=== PATIENT | male | born 1955 | race Caucasian/White ===

== ENCOUNTER → 2016-05-20 | Outpatient (CLI) | payer BC ==
[2016-05-20 11:53] LABS: CH 31.4; CHCM 33.3; HCT 41.6 % (39.0-53.0); HDW 2.36; HGB 13.7 gm/dL (13.0-17.5); MCH 31.2 pg (25.0-35.0); MCV 94.6 fL (80.0-100.0); Mean Platelet Volume 7.4; RBC 4.39 m/uL (4.30-5.90); RDW 12.8 % (11.5-15.5); WBC 10.1 k/uL (3.8-10.6)
[2016-05-20 12:29] LABS: Anion Gap 15 mmol/L; Blood Urea Nitrogen 15 mg/dL (9-20); Carbon Dioxide 23 mmol/L (22-30); Chloride 105 mmol/L (98-107); Non-African American GFR(MDRD) >60 (>60 ml/min/1.73 sqM); Potassium 4.3 mmol/L (3.5-5.1); Sodium 143 mmol/L (137-145)
== END | disposition home or self-care (01) ==
LOC: LABPAT 11:20
PROVIDERS: ATTEND Internal Medicine Interventional Cardiology
DX: Z01.812 Encounter for preprocedural laboratory examination (principal); I73.9 Peripheral vascular disease, unspecified
CPT/HCPCS: 80051; 82565; 84520; 85027

== ENCOUNTER 2016-05-22 07:39 | Day surgery (SDC) | payer BC ==
[2016-05-20 10:04] VITALS: BMI 23.7
[2016-05-22] MEDS ORDERED: SODIUM CHLORIDE 0.9% 1,000 ML IV ONE (08:05)
[2016-05-22 08:08] LABS: Glucose,Whole Blood 180 mg/dL (75-99)
[2016-05-22] MEDS ORDERED: ASPIRIN 325 MG TAB PO SCH (09:00)
[2016-05-22] MEDS ORDERED: MIDAZOLAM 2 MG/2 ML VIAL IV ONE ×2 (09:39→10:35)
[2016-05-22] MEDS ORDERED: LIDOCAINE 2% INJ 20 MG/ML SQ ONE (09:49)
[2016-05-22] MEDS: niCARdipine Syringe (1,000 mcg/10 mL) IV ONE ×2 (10:46→10:58)
[2016-05-22] MEDS: NITROGLYCERIN 1000MCG/10ML SYRINGE INTRAARTER ONE ×2 (10:46→10:58)
[2016-05-22] MEDS ORDERED: IODIXANOL 320 MG/ML 100 ML INTRAARTER ONE (11:07)
[2016-05-22] MEDS ORDERED: SODIUM CHLORIDE 0.9% 1,000 ML IV SCH (11:15)
[2016-05-22] MEDS ORDERED: hydrALAZINE HCL 20 MG/ML 1 ML VIAL IVP STA (14:11)
[2016-05-22] MEDS ORDERED: ENALAPRILAT 1.25 MG/ML 1 ML VIAL IVP STA (14:12)
[2016-05-22] MEDS ORDERED: ATROPINE SULFATE 0.1 MG/ML 10ML SYRINGE ONE (14:18)
[2016-05-22 15:26] VITALS: RESP 16
--- NOTE | 2016-05-22 15:57 | IR ---
EXAMINATION TYPE: IR stent intravas non coronary DATE OF EXAM: 05/22/2016 11:59 AM COMPARISON: NONE HISTORY: Peripheral vascular occlusive disease. Fluoroscopy was applied to the referring clinician. See dictated report from cardiology.
[2016-05-22 16:53] LABS: Glucose,Whole Blood 167 mg/dL (75-99)
[2016-05-22] MEDS ORDERED: GLIMEPIRIDE 1 MG TAB PO SCH (17:30)
--- NOTE | 2016-05-22 18:41 | PCN ---
DATE OF PROCEDURE: May 22, 2016 PERFORMING PHYSICIAN: Adam Nicole, petroleum engineering teacher. PROCEDURE PERFORMED: 1. Selective right undbr-gmy-fbde angiogram. 2. Selective right SFA angiogram. 3. Atherectomy of the right superficial femoral artery SFA using the TurboHawk device. 4. Balloon angioplasty of the right SFA using 5.0 mm by one. 5. Successful stenting of the right SFA using 5.5 x 60 mm ( ) stent with a good angiographic result. INDICATION: This is a pleasant, 61-year-old gentleman who sees Dr. Mario Arellano as an outpatient and sees Dr. Keen as an outpatient as well who was experiencing bilateral lower extremity discomfort consistent with claudication. He underwent a peripheral angiogram which showed bilateral femoropopliteal disease. He did not he underwent an atherectomy and balloon angioplasty of the left SFA and was brought today to undergo an atherectomy and balloon angioplasty of the right SFA. Approach: Right common femoral artery in antegrade fashion. COMPLICATIONS: None. Level of sedation: Moderate. PROCEDURE DESCRIPTION: After obtaining informed consent, the patient was brought to the cardiac computer lab assistant. Right common femoral artery was cannulated using micropuncture technique. The micropuncture wire passed easily, then I placed a 6 [place] sheath in the right common femoral artery and the sheath was directed toward the right SFA in antegrade technique. At that point, anticoagulation was initiated using Angiomax. I did selective right mycrd-qxv-meam angiogram and selective right SFA angiogram. After that, I did cross the lesion of the right SFA using an 0.014 advantage wire with the back-up support of 0.014 wire. After that, I did exchanged my 0.014 advantage wire into a filter wire using an 0.035 QuickCross catheter. After that anticoagulation was initiated using heparin. The patient was given a total of 8000 units of heparin IV. After that, I did multiple runs of directional atherectomy using the TurboHawk hock device and I was able to extract some plaque from the lesion in the right SFA. Subsequently, I did balloon angioplasty using 5.0 x 40 mm balloon, where the balloon was inflated 3 times in the right distal SFA. The following angiogram showed what seems to be dissection involving the right SFA was a sort of a bit flow limiting. I decided to cover that with a stent, so I deployed 5.5 x 15 mm Supera stent, where the stent was positioned under fluoroscopy guidance, then it was deployed. The following angiogram showed good angiographic results. The procedure was completed without any complication. By the end of the procedure, I did selective right common femoral artery angiogram. POSTPROCEDURE MANAGEMENT: 1. Dual antiplatelet therapy. 2. Risk factor modifications. 3. Follow up with the patient.
--- NOTE | 2016-05-22 18:46 | LTR ---
May 22, 2016 RE: Dillan Reis Dear Helga, As per our discussion on the phone, Mr. Dillan Reis underwent successful balloon angioplasty of the right superficial femoral artery with good angiographic results and without any complication. Thank you again for allowing us to participate in his care. Please do not hesitate to call if you have any question or concerns. Sincerely, RICHARD GREENE MD
[2016-05-22] MEDS: MAGNESIUM OXIDE 250 MG TAB PO SCH (19:56)
[2016-05-22 20:39] LABS: Glucose,Whole Blood 202 mg/dL (75-99)
[2016-05-22] MEDS ORDERED: ATORVASTATIN 80 MG TAB PO SCH (21:00)
[2016-05-23 06:17] LABS: Glucose,Whole Blood 115 mg/dL (75-99)
[2016-05-23 07:03] LABS: Basophils # (A) 0.1 k/uL (0-0.2); Basophils % (A) 1 %; CH 31.6; CHCM 33.7; Eosinophils # (A) 0.4 k/uL (0-0.7); Eosinophils % (A) 5 %; HCT 36.8 % (39.0-53.0); HDW 2.38; HGB 12.4 gm/dL (13.0-17.5); Luc # (Auto) 0.38; Luc % (Auto) 4; Lymphocytes # (A) 1.7 k/uL (1.0-4.8); Lymphocytes % (A) 19 %; MCH 31.7 pg (25.0-35.0); MCHC 33.6 g/dL (31.0-37.0); MCV 94.2 fL (80.0-100.0); Mean Platelet Volume 7.7; Monocytes # (A) 0.8 k/uL (0-1.0); Monocytes % (A) 9 %; Neutrophils # (A) 5.5 k/uL (1.3-7.7); Neutrophils % (A) 63 %; RDW 12.7 % (11.5-15.5); WBC 8.9 k/uL (3.8-10.6); WBC (Perox) 9.38
[2016-05-23 07:30] LABS: Anion Gap 11 mmol/L; Blood Urea Nitrogen 14 mg/dL (9-20); Calcium 8.7 mg/dL (8.4-10.2); Carbon Dioxide 18 mmol/L (22-30); Chloride 112 mmol/L (98-107); Glucose 105 mg/dL (74-99); Non-African American GFR(MDRD) >60 (>60 ml/min/1.73 sqM); Potassium 4.3 mmol/L (3.5-5.1); Sodium 141 mmol/L (137-145)
[2016-05-23] MEDS: MAGNESIUM OXIDE 250 MG TAB PO SCH (07:56)
[2016-05-23] MEDS ORDERED: PRASUGREL 10 MG TAB PO SCH (09:00)
[2016-05-23] MEDS ORDERED: METOPROLOL TARTRATE 25 MG TAB PO SCH (09:00)
[2016-05-23] MEDS ORDERED: ASPIRIN 81 MG CHEW PO SCH (09:00)
[2016-05-23] MEDS ORDERED: NON-FORMULARY DRUG (Ubidecarenone [Co Q-10] 200 MG) PO SCH (09:00)
[2016-05-23] MEDS ORDERED: NON-FORMULARY DRUG (Omega-3 Fatty Acids [Omega-3] 1,000 MG) PO SCH (09:00)
[2016-05-23] MEDS ORDERED: LISINOPRIL 10 MG TAB PO SCH (09:00)
[2016-05-23 09:35] VITALS: BP 161/72; PULSE 70; TEMP 98
--- NOTE | 2016-05-24 08:55 | DS ---
DATE OF ADMISSION: 05/22/2016 DATE OF DISCHARGE: 05/23/2016 BRIEF HISTORY: This is a pleasant 61-year-old gentleman who was admitted to the hospital yesterday and underwent successful balloon angioplasty of the right superficial femoral artery with a good angiographic result and without any complication. The procedure was performed from the left groin, which is soft and nontender and without any bruises. Patient is going to be discharged home on dual antiplatelet therapy and I will follow up with the patient next week in the office.
== END 2016-05-23 11:58 | disposition home or self-care (01) ==
LOC: CATHCVL 07:39 → 6SEL 11:05 → CATHCVL 05-23 11:58
PROVIDERS: ATTEND Internal Medicine Interventional Cardiology
DX: I70.211 Atherosclerosis of native arteries of extremities with intermittent claudication, right leg (principal); I10 Essential (primary) hypertension; E11.9 Type 2 diabetes mellitus without complications; Z79.84 Long term (current) use of oral hypoglycemic drugs; Z87.891 Personal history of nicotine dependence; E78.2 Mixed hyperlipidemia; I25.10 Atherosclerotic heart disease of native coronary artery without angina pectoris; Z98.62 Peripheral vascular angioplasty status; Z79.899 Other long term (current) drug therapy
CPT/HCPCS: 37227; 85347; 80048; 85025; C1894; C1725 ×2; C1769 ×7; C1887; C1714; C1884; C1876; J2001; J2250; J0360; Q9967; J1644

== ENCOUNTER → 2017-06-06 | Outpatient (CLI) | payer BC ==
[2017-06-06 07:41] LABS: Blood Urea Nitrogen 16 mg/dL (9-20)
--- NOTE | 2017-06-06 08:26 | CT ---
EXAMINATION TYPE: CT urogram wo/w con DATE OF EXAM: 06/06/2017 COMPARISON: 06/19/2012 HISTORY: Gross hematuria, bladder CA CT DLP: 2088 mGycm CONTRAST: Performed and without and with IV Contrast, patient injected with 100 mL of Omnipaque 300. CT Urography was performed with unenhanced followed by enhanced images of the kidneys, ureters and ur inary bladder. Delayed images were obtained. 3d reconstruction was perfromed at a separate work sta tion. FINDINGS: KIDNEYS/BLADDER: Bilateral nonobstructing nephrolithiasis is identified. No solid or cystic renal mas s is detected. There is wall thickening involving the posterior urinary bladder to the left of midli ne. Direct visualization is recommended to exclude underlying malignancy. LUNG BASES-: No visible nodule. No infiltrate. LIVER/GB: No calcified gallstones. No space occupying hepatic lesion. Biliary tree is of normal ca liber. PANCREAS: No inflammation. No distinct mass. SPLEEN: No splenic enlargement. No lesion seen. ADRENALS: No nodule. No thickening. BOWEL: Normal appendix. Normal bowel caliber. No inflammation. GENITAL ORGANS: Note is made of prostate gland enlargement. LYMPH NODES: No greater than 1cm abdominal or pelvic lymph nodes are appreciated. AORTA: No significant abnormality. OSSEOUS STRUCTURES: Degenerative changes lumbar spine. OTHER: No significant additional abnormality is seen. IMPRESSION: 1. There is wall thickening involving the posterior urinary bladder to the left of midline. Direct v isualization is recommended to exclude underlying malignancy. 2. Nonobstructing nephrolithiasis.
== END | disposition home or self-care (01) ==
LOC: RADCTMAIN 06:31
PROVIDERS: ATTEND Urology
DX: C67.9 Malignant neoplasm of bladder, unspecified (principal); N20.0 Calculus of kidney
CPT/HCPCS: 82565; 84520; 74178; 36415; 74400; Q9967

== ENCOUNTER 2019-01-09 18:45 | Emergency (ER) | payer BC ==
[2019-01-09 18:58] VITALS: TEMP 97.8
[2019-01-09] MEDS ORDERED: SODIUM CHLORIDE 0.9% 1,000 ML IV STA (19:12)
--- NOTE | 2019-01-09 19:17 | ED ---
General Adult HPI - General Chief complaint: Syncope Stated complaint: syncope Time Seen by Provider: 01/09/19 18:53 Source: patient, EMS Mode of arrival: EMS Limitations: no limitations - History of Present Illness Initial comments: 63-year-old male patient presents to the emergency department today for evaluation after experiencing a syncopal episode. Patient states he was at a wedding, when he walked outside to have a cigarette he became very dizzy and passed out. Patient states that he was feeling well prior to this. Does admit that he is only had a couple coffee for the whole day, no other drinks, no other food. Patient states he currently feels well. Denies any headache, blurred vision, or double vision. Denies any neck or back pain. Patient does have abrasions to his face, report some stinging sensation but no significant pain. Denies any chest pain, shortness of breath, numbness, or tingling to his extremities. Patient denies history of syncope. Does have history of coronary artery disease with stenting in both coronary arteries and lower extremity arteries. Patient denies any recent rash, fever, chills, abdominal pain, nausea, vomiting, diarrhea, constipation, back pain, hematuria, dysuria, urinary urgency, urinary frequency, or any other complaints. - Related Data Home Medications Medication Instructions Recorded Confirmed Aspirin 81.25 mg PO DAILY 01/09/19 01/09/19 Allergies Allergy/AdvReac Type Severity Reaction Status Date / Time ragweed pollen Allergy Unknown Verified 01/09/19 19:25 Review of Systems ROS Statement: Those systems with pertinent positive or pertinent negative responses have been documented in the HPI. ROS Other: All systems not noted in ROS Statement are negative. Past Medical History Past Medical History: Coronary Artery Disease (CAD), Cancer, Chest Pain / Angina, Diabetes Mellitus, Hypertension, Skin Disorder Additional Past Medical History / Comment(s): Intermittent BILATERAL CLAUDICATION & NEW OCCURRENCE OF LEFT PLANTAR FASCITIS (DIFFICULT TO WALK). Hx of bladder ca with surgery, psoriases,eczema, hiatal hernia, umbilical hernia, kidney stones 2004. History of Any Multi-Drug Resistant Organisms: None Reported Past Surgical History: Heart Catheterization With Stent Additional Past Surgical History / Comment(s): 10/20/15 last CARDIAC STENT-has had several previous cardiac stents, vasectomy, bladder sx x2 to remove tumors. L femoral artherectomy/STENT TO LT common ILIAC artery, 1/25/17 R fe moral/popliteal atherectomy with PTBA/stent, angiograms, aortogram with run off. Past Anesthesia/Blood Transfusion Reactions: No Reported Reaction Additional Past Anesthesia/Blood Transfusion Reaction / Comment(s): CLAUSTROPHOBIC IN LARGE CROWDS Date of Last Stent Placement:: 10/20/15 Smoking Status: Former smoker - Past Family History Father Family Medical History: Unable to Obtain Additional Family Medical History / Comment(s): PT'S DAD WHEN PT WAS AGE 4 DOES'NT KNOW ANY HX ON HIM. Mother Family Medical History: Diabetes Mellitus, Hyperlipidemia, Hypertension, Vascular Disorder General Exam Limitations: no limitations General appearance: alert, in no apparent distress, other (This is a well- developed, well-nourished adult male patient in no acute distress. Vital signs upon presentation are temperature 97.8F, pulse 80, respirations 20, blood pressure 154 with 87, pulse ox 99% on room air.) Head exam: Present: other (Mid forehead abrasion) Eye exam: Present: normal appearance, PERRL, EOMI. Absent: scleral icterus, conjunctival injection, periorbital swelling ENT exam: Present: normal exam, normal oropharynx, mucous membranes moist, other (Nasal bridge abrasion, nasal bridge tenderness. No evidence for septal hematoma.) Respiratory exam: Present: normal lung sounds bilaterally. Absent: respiratory distress, wheezes, rales, rhonchi, stridor Cardiovascular Exam: Present: regular rate, normal rhythm, normal heart sounds. Absent: systolic murmur, diastolic murmur, rubs, gallop, clicks GI/Abdominal exam: Present: soft, normal bowel sounds. Absent: distended, tenderness, guarding, rebound, rigid Neurological exam: Present: alert, oriented X3, CN II-XII intact, other (Strength in all 4 extremities is 5/5.) Psychiatric exam: Present: normal affect, normal mood Skin exam: Present: warm, dry, intact, normal color. Absent: rash Course Vital Signs 01/09/19 01/09/19 18:56 21:37 Temperature 97.8 F Pulse Rate 80 72 Respiratory 20 18 Rate Blood Pressure 154/87 181/90 O2 Sat by Pulse 99 98 Oximetry EKG Findings - EKG Comments: EKG Findings:: EKG obtained at 1854 shows sinus rhythm with occasional PVCs. Ventricular rate is 76, HI interval 138, QR faith 98, QT 422, QTc 474. No evidence of ST elevation or depression. Medical Decision Making - Medical Decision Making 63-year-old male patient presented to the emergency department today for evaluation after experiencing a syncopal episode. Physical examination did reveal abrasions to the forehead and nasal bridge. Patient did have some nasal bridge tenderness. No nasal bleeding, no evidence for septal hematoma. Patient is neurologically intact with no focal deficits. Patient reported feeling well at time of evaluation. Labs reviewed and were unremarkable other than an elevated blood glucose level at 224. CT brain and facial bones showed no acute abnormalities. Chest x-ray was unremarkable. EKG showed normal sinus rhythm with only occasional PVCs. Patient is requesting discharge home at this time. He will be discharged to follow up with primary care physician for recheck in 1- 2 days. Return parameters were discussed in detail. He is given low threshold to return. He verbalizes understanding and agrees with this plan. Daughter is present and will be driving him home. - Lab Data Result diagrams: 01/09/19 19:20 01/09/19 19:20 Lab Results 01/09/19 01/09/19 01/09/19 Range/Units 19:20 19:20 19:20 WBC 11.9 H (3.8-10.6) k/uL RBC 4.28 L (4.30-5.90) m/uL Hgb 12.9 L (13.0-17.5) gm/dL Hct 39.4 (39.0-53.0) % MCV 92.1 (80.0-100.0) fL MCH 30.2 (25.0-35.0) pg MCHC 32.8 (31.0-37.0) g/dL RDW 12.9 (11.5-15.5) % Plt Count 267 (150-450) k/uL Neutrophils % 69 % Lymphocytes % 16 % Monocytes % 6 % Eosinophils % 4 % Basophils % 2 % Neutrophils # 8.2 H (1.3-7.7) k/uL Lymphocytes # 1.9 (1.0-4.8) k/uL Monocytes # 0.8 (0-1.0) k/uL Eosinophils # 0.5 (0-0.7) k/uL Basophils # 0.2 (0-0.2) k/uL PT 9.8 (9.0-12.0) sec INR 0.9 (<1.2) APTT 22.8 (22.0-30.0) sec Sodium 139 (137-145) mmol/L Potassium 4.8 (3.5-5.1) mmol/L Chloride 107 (98-107) mmol/L Carbon Dioxide 22 (22-30) mmol/L Anion Gap 10 mmol/L BUN 19 (9-20) mg/dL Creatinine 0.89 (0.66-1.25) mg/dL Est GFR (CKD-EPI)AfAm >90 (>60 ml/min/1.73 sqM) Est GFR (CKD-EPI)NonAf >90 (>60 ml/min/1.73 sqM) Glucose 224 H (74-99) mg/dL Calcium 9.3 (8.4-10.2) mg/dL Magnesium 1.6 (1.6-2.3) mg/dL Total Bilirubin 0.3 (0.2-1.3) mg/dL AST 22 (17-59) U/L ALT 20 L (21-72) U/L Alkaline Phosphatase 79 (38-126) U/L Troponin I (0.000-0.034) ng/mL Total Protein 7.1 (6.3-8.2) g/dL Albumin 4.0 (3.5-5.0) g/dL Urine Color Urine Appearance (Clear) Urine pH (5.0-8.0) Ur Specific [place] (1.001-1.035) Urine Protein (Negative) Urine Glucose (UA) (Negative) Urine Ketones (Negative) Urine Blood (Negative) Urine Nitrite (Negative) Urine Bilirubin (Negative) Urine Urobilinogen (<2.0) mg/dL Ur Leukocyte Esterase (Negative) 01/09/19 01/09/19 Range/Units 19:20 20:34 WBC (3.8-10.6) k/uL RBC (4.30-5.90) m/uL Hgb (13.0-17.5) gm/dL Hct (39.0-53.0) % MCV (80.0-100.0) fL MCH (25.0-35.0) pg MCHC (31.0-37.0) g/dL RDW (11.5-15.5) % Plt Count (150-450) k/uL Neutrophils % % Lymphocytes % % Monocytes % % Eosinophils % % Basophils % % Neutrophils # (1.3-7.7) k/uL Lymphocytes # (1.0-4.8) k/uL Monocytes # (0-1.0) k/uL Eosinophils # (0-0.7) k/uL Basophils # (0-0.2) k/uL PT (9.0-12.0) sec INR (<1.2) APTT (22.0-30.0) sec Sodium (137-145) mmol/L Potassium (3.5-5.1) mmol/L Chloride (98-107) mmol/L Carbon Dioxide (22-30) mmol/L Anion Gap mmol/L BUN (9-20) mg/dL Creatinine (0.66-1.25) mg/dL Est GFR (CKD-EPI)AfAm (>60 ml/min/1.73 sqM) Est GFR (CKD-EPI)NonAf (>60 ml/min/1.73 sqM) Glucose (74-99) mg/dL Calcium (8.4-10.2) mg/dL Magnesium (1.6-2.3) mg/dL Total Bilirubin (0.2-1.3) mg/dL AST (17-59) U/L ALT (21-72) U/L Alkaline Phosphatase (38-126) U/L Troponin I <0.012 (0.000-0.034) ng/mL Total Protein (6.3-8.2) g/dL Albumin (3.5-5.0) g/dL Urine Color Yellow Urine Appearance Clear (Clear) Urine pH 6.0 (5.0-8.0) Ur Specific [place] 1.017 (1.001-1.035) Urine Protein Trace H (Negative) Urine Glucose (UA) 3+ H (Negative) Urine Ketones Negative (Negative) Urine Blood Negative (Negative) Urine Nitrite Negative (Negative) Urine Bilirubin Negative (Negative) Urine Urobilinogen <2.0 (<2.0) mg/dL Ur Leukocyte Esterase Negative (Negative) - Radiology Data Radiology results: report reviewed, image reviewed CT facial bones without contrast was obtained. Report was reviewed in its entirety. Impression by Dr. Mercedes shows mucosal thickening and air-fluid level left seen right sinus. Correlate for acute sinusitis. Rightward nasal septal deviation. No acute facial bone fracture. CT brain without contrast was obtained. Report was reviewed in its entirety. Impression by Dr. Mercedes shows no acute intracranial abnormalities seen. 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 Facial bones reported separately. Two-view x-ray of the chest is obtained. Report was reviewed in its entirety. Impression by Dr. Mercedes shows chronic-appearing changes. No acute process seen. Disposition Clinical Impression: Syncope Disposition: HOME SELF-CARE Condition: Good Instructions (If sedation given, give patient instructions): Syncope (ED) Additional Instructions: Increase fluids. Rest. Follow-up through primary care physician for recheck in 1-2 days. Return to the emergency department immediately for any new, worsen ing, or concerning symptoms. Is patient prescribed a controlled substance at d/c from ED?: No Referrals: Helga Keen MD [Primary Care Provider] - 1-2 days Time of Disposition: 21:32
[2019-01-09 19:31] LABS: Basophils # (A) 0.2 k/uL (0-0.2); Basophils % (A) 2 %; Eosinophils # (A) 0.5 k/uL (0-0.7); Eosinophils % (A) 4 %; HCT 39.4 % (39.0-53.0); HGB 12.9 gm/dL (13.0-17.5); Lymphocytes # (A) 1.9 k/uL (1.0-4.8); Lymphocytes % (A) 16 %; MCH 30.2 pg (25.0-35.0); MCHC 32.8 g/dL (31.0-37.0); MCV 92.1 fL (80.0-100.0); Mean Platelet Volume 6.8; Monocytes # (A) 0.8 k/uL (0-1.0); Monocytes % (A) 6 %; Neutrophils # (A) 8.2 k/uL (1.3-7.7); Neutrophils % (A) 69 %; Platelet Count 267 k/uL (150-450); RBC 4.28 m/uL (4.30-5.90); RDW 12.9 % (11.5-15.5); WBC 11.9 k/uL (3.8-10.6)
[2019-01-09 19:41] LABS: ALT 20 U/L (21-72); AST 22 U/L (17-59); African American GFR (CKD) >90 (>60 ml/min/1.73 sqM); Alkaline Phosphatase 79 U/L (38-126); Anion Gap 10 mmol/L; Blood Urea Nitrogen 19 mg/dL (9-20); Calcium 9.3 mg/dL (8.4-10.2); Carbon Dioxide 22 mmol/L (22-30); Chloride 107 mmol/L (98-107); Glucose 224 mg/dL (74-99); INR 0.9 (<1.2); Magnesium 1.6 mg/dL (1.6-2.3); Partial Thromboplastin Time 22.8 sec (22.0-30.0); Potassium 4.8 mmol/L (3.5-5.1); Prothrombin Time 9.8 sec (9.0-12.0); Sodium 139 mmol/L (137-145); Total Bilirubin 0.3 mg/dL (0.2-1.3); Total Protein 7.1 g/dL (6.3-8.2)
--- NOTE | 2019-01-09 20:37 | XR ---
EXAMINATION TYPE: XR chest 2V DATE OF EXAM: 01/09/2019 COMPARISON: 10/19/2015 HISTORY: 63-year-old male with syncope TECHNIQUE: AP and lateral views FINDINGS: Heart normal size. Aorta within normal limits. Mild interstitial prominence without consolidation or pleural effusion. IMPRESSION: Chronic-appearing changes. No acute process seen.
[2019-01-09 20:46] LABS: Appearance,Urine Clear (Clear); Bilirubin,Urine Negative (Negative); Blood,Urine Negative (Negative); Color,Urine Yellow; Glucose,Urine (UA) 3+ (Negative); Ketones,Urine Negative (Negative); Leukocyte Esterase,Urine Negative (Negative); Nitrite,Urine Negative (Negative); Protein,Urine Trace (Negative); Specific Gravity,Urine 1.017 (1.001-1.035); Urobilinogen,Urine <2.0 mg/dL (<2.0)
--- NOTE | 2019-01-09 20:57 | CT ---
EXAMINATION TYPE: CT brain wo con DATE OF EXAM: 01/09/2019 COMPARISON: None HISTORY: 63-year-old male Syncope, abrasions to left side of face. TECHNIQUE: Examination was done in axial plane without intravenous contrast. Coronal and sagittal r econstructions performed. CT DLP: 1413.6 mGycm Automated exposure control for dose reduction was used. FINDINGS: There is no evidence of acute intracranial hemorrhage, acute ischemic changes, mass, mass-effect, or extra-axial fluid collection. There is no effacement of cerebral sulci or basal subarachnoid cister ns. There is no hydrocephalus. There is no midline shift. Metcalf-white matter distinction is preserv ed. Old lacunar infarct left basal ganglia. Mastoid air cells are pneumatized. No calvarial fracture. IMPRESSION: No acute intracranial abnormality seen. 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 Facial bones reported separately.
--- NOTE | 2019-01-09 20:59 | CT ---
EXAMINATION TYPE: CT facial bones wo con DATE OF EXAM: 01/09/2019 COMPARISON: None HISTORY: 63-year-old male Syncope, abrasions to left side of face. TECHNIQUE: Contiguous axial scanning of the facial bones without IV contrast. Coronal reconstruction performed. CT DLP: 1413.6 (scanned together with brain) mGycm Automated exposure control for dose reduction was used. FINDINGS: Rightward nasal septal deviation. Mucosal thickening and air-fluid level left sphenoid sinus. Patient is nearly edentulous. Mandible, zygomatic arches, pterygoid plates, nasal bones, and orbits and globes appear intact. No ac [place] facial bone fracture. IMPRESSION: MUCOSAL THICKENING AND AIR-FLUID LEVEL LEFT SPHENOID SINUS. CORRELATE FOR ACUTE SINUSITIS. RIGHTWARD NASAL SEPTAL DEVIATION. NO ACUTE FACIAL BONE FRACTURE.
[2019-01-09] MEDS ORDERED: DIPH,PERTUS(ACELL)TETVAC-LF 0.5 ML VIAL IM ONE (21:12)
[2019-01-09 21:40] VITALS: BP 181/90; PULSE 72; RESP 18
== END 2019-01-09 21:40 | disposition home or self-care (01) ==
LOC: EC 18:45
DX: R55 Syncope and collapse (principal); S00.81XA Abrasion of other part of head, initial encounter; S00.31XA Abrasion of nose, initial encounter; R73.9 Hyperglycemia, unspecified; I25.10 Atherosclerotic heart disease of native coronary artery without angina pectoris; Z85.51 Personal history of malignant neoplasm of bladder; Z95.5 Presence of coronary angioplasty implant and graft; Z23 Encounter for immunization; Z87.891 Personal history of nicotine dependence; Z79.82 Long term (current) use of aspirin; Z91.048 Other nonmedicinal substance allergy status; Y93.01 Activity, walking, marching and hiking
CPT/HCPCS: 36415; 70450; 70486; 71046; 80053; 81003; 83735; 84484; 85025; 85610; 85730; 90471; 90715; 93005; 96360; 99285

== ENCOUNTER 2019-11-01 14:03 | Inpatient (IN) | payer BC ==
[2019-11-01] MEDS ORDERED: ASPIRIN 81 MG PO STA (14:18)
[2019-11-01] MEDS ORDERED: NITROGLYCERIN SL TABS 0.4 MG TAB SUBLINGUAL PRN ×2 (14:30→17:02)
--- NOTE | 2019-11-01 14:50 | ED ---
Chest Pain HPI - General Chief Complaint: Chest Pain Stated Complaint: Chest Pain Time Seen by Provider: 11/01/19 14:18 Source: patient Mode of arrival: ambulatory Limitations: no limitations - History of Present Illness Initial Comments: Patient is 64-year-old male with history of coronary artery disease, hypertension, hyperlipidemia presenting to the emergency room with a chief complaint of chest pain. Patient states he woke up this morning at 4 AM with an onset of midsternal chest pain without any radiation. Patient states that pain feels dull with an occasional crushing feeling. Patient reports chest pain is exacerbated on exertion. Patient denies any shortness of breath. Patient denies any diaphoretic episodes, lightheadedness or dizziness. Patient states he currently takes a baby aspirin and some szzd-bxc-mvrorty supplements. Patient states about 8 years ago he had a stent placement. States his most recent stress test was several years ago. Denies headache, blurry vision, one- sided weakness or paresthesias. Denies any abdominal pain, nausea or vomiting. - Related Data Home Medications Medication Instructions Recorded Confirmed Multivitamins, Thera [Multivitamin 1 tab PO DAILY 11/01/19 11/01/19 (formulary)] Turmeric (Unknown Strength) 1 tab PO DAILY 11/01/19 11/01/19 Unknown Vitamin For Prostate 1 tab PO DAILY 11/01/19 11/01/19 Vitamin D3 (Unknown Strength) 1 tab PO DAILY 11/01/19 11/01/19 Vitamin K (Unknown Strength) 1 tab PO DAILY 11/01/19 11/01/19 Allergies Allergy/AdvReac Type Severity Reaction Status Date / Time ragweed pollen Allergy Unknown Verified 11/01/19 16:27 Review of Systems ROS Statement: Those systems with pertinent positive or pertinent negative responses have been documented in the HPI. ROS Other: All systems not noted in ROS Statement are negative. Past Medical History Past Medical History: Coronary Artery Disease (CAD), Cancer, Chest Pain / Angina, Diabetes Mellitus, Hypertension, Skin Disorder Additional Past Medical History / Comment(s): Intermittent BILATERAL CLAUDICATION & NEW OCCURRENCE OF LEFT PLANTAR FASCITIS (DIFFICULT TO WALK). Hx of bladder ca with surgery, psoriases,eczema, hiatal hernia, umbilical hernia, kidney stones 2004. History of Any Multi-Drug Resistant Organisms: None Reported Past Surgical History: Heart Catheterization With Stent Additional Past Surgical History / Comment(s): 10/20/15 last CARDIAC STENT-has had several previous cardiac stents, vasectomy, bladder sx x2 to remove tumors. L femoral artherectomy/STENT TO LT common ILIAC artery, 05/22/16 R femoral/popliteal atherectomy with PTBA/stent, angiograms, aortogram with run off. Past Anesthesia/Blood Transfusion Reactions: No Reported Reaction Additional Past Anesthesia/Blood Transfusion Reaction / Comment(s): CLAUSTROPHOBIC IN LARGE CROWDS Date of Last Stent Placement:: 10/20/15 Past Psychological History: No Psychological Hx Reported Smoking Status: Current every day smoker Past Alcohol Use History: None Reported Past Drug Use History: Marijuana - Past Family History Father Family Medical History: Unable to Obtain Additional Family Medical History / Comment(s): PT'S DAD WHEN PT WAS AGE 4 DOES'NT KNOW ANY HX ON HIM. Mother Family Medical History: Diabetes Mellitus, Hyperlipidemia, Hypertension, Vascular Disorder General Exam Limitations: no limitations General appearance: alert, in no apparent distress Head exam: Present: atraumatic, normocephalic, normal inspection Eye exam: Present: normal appearance, PERRL, EOMI Pupils: Present: normal accommodation Course Vital Signs 11/01/19 11/01/19 11/01/19 14:07 14:23 14:30 Temperature 98.3 F Pulse Rate 94 83 Respiratory 16 18 16 Rate Blood Pressure 132/92 O2 Sat by Pulse 99 Oximetry 11/01/19 11/01/19 15:00 16:00 Temperature Pulse Rate 59 L 53 L Respiratory 18 16 Rate Blood Pressure 145/85 156/86 O2 Sat by Pulse Oximetry Chest Pain MDM - Differential Diagnosis ACS - MDM Patient is a 64-year-old male with history of diabetes, hypertension and hyperlipidemia presents emergency Department with chief complaint of chest pain. Initial troponin is negative. Typical chest pain with atypical features. Patient did report improvement in symptoms after aspirin. Patient has a heart score of 5. Patient will be admitted for further medical management and serial troponins. Case discussed with Admitting is Dr Crenshaw Cardiology consulted Disposition Clinical Impression: Chest pain Disposition: ADMITTED IP TO THIS HOSP Condition: Stable Instructions (If sedation given, give patient instructions): Chest Pain (ED) Additional Instructions: She'll be admitted Is patient prescribed a controlled substance at d/c from ED?: No Referrals: Helga Keen MD [Primary Care Provider] - 1-2 days Time of Disposition: 17:06
--- NOTE | 2019-11-01 15:01 | XR ---
EXAMINATION TYPE: XR chest 2V DATE OF EXAM: 11/01/2019 COMPARISON: 01/09/2019 HISTORY: Shortness of breath TECHNIQUE: Frontal and lateral views of the chest are obtained. FINDINGS: Scattered senescent parenchymal changes noted. Hyperinflation compatible with COPD. No evidence for infiltrate. No evidence for atelectasis. Heart size is stable. Mediastinal structures are stable and grossly unremarkable. No evidence for hilar prominence. Degenerative changes dorsal spine. IMPRESSION: 1. No evidence for acute pulmonary disease.
[2019-11-01 15:02] LABS: Basophils # (A) 0.1 k/uL (0-0.2); Basophils % (A) 1 %; Eosinophils # (A) 0.2 k/uL (0-0.7); Eosinophils % (A) 2 %; HCT 43.2 % (39.0-53.0); HGB 14.3 gm/dL (13.0-17.5); Lymphocytes # (A) 1.3 k/uL (1.0-4.8); Lymphocytes % (A) 13 %; MCH 30.9 pg (25.0-35.0); MCHC 33.1 g/dL (31.0-37.0); MCV 93.3 fL (80.0-100.0); Mean Platelet Volume 7.7; Monocytes # (A) 0.7 k/uL (0-1.0); Monocytes % (A) 7 %; Neutrophils # (A) 7.3 k/uL (1.3-7.7); Neutrophils % (A) 74 %; Platelet Count 285 k/uL (150-450); RBC 4.63 m/uL (4.30-5.90); WBC 9.8 k/uL (3.8-10.6)
[2019-11-01 15:13] LABS: ALT 16 U/L (4-49); AST 22 U/L (17-59); African American GFR (CKD) >90 (>60 ml/min/1.73 sqM); Alkaline Phosphatase 88 U/L (38-126); Anion Gap 14 mmol/L; Blood Urea Nitrogen 15 mg/dL (9-20); Calcium 9.5 mg/dL (8.4-10.2); Carbon Dioxide 19 mmol/L (22-30); Chloride 105 mmol/L (98-107); Glucose 309 mg/dL (74-99); INR 0.9 (<1.2); Magnesium 1.8 mg/dL (1.6-2.3); Non-African American GFR(CKD) >90 (>60 ml/min/1.73 sqM); Partial Thromboplastin Time 24.9 sec (22.0-30.0); Potassium 4.4 mmol/L (3.5-5.1); Prothrombin Time 9.7 sec (9.0-12.0); Sodium 138 mmol/L (137-145); Total Bilirubin 0.5 mg/dL (0.2-1.3); Total Protein 6.9 g/dL (6.3-8.2)
--- NOTE | 2019-11-01 17:58 | P.HPIM ---
History of Present Illness 64-year-old male with known history of coronary artery artery disease and with stents in the past came in with compensative chest pressure like sensation was started around 4 AM in the morning nonexertional 810 in severity nonradiating no associated lightheadedness shortness of breath light, no radiation of the chest pain, denied any associated diaphoresis, nonpleuritic not associated with food. Patient did take some deep breaths with improvement of his chest pain. Patient said he had stents in the past but it doesn't seem like patient takes any medications. Patient also has elevated blood sugars, will obtain hemoglobin A1c is not on any medications for diabetes mellitus. Patient appears to help her vascular disease and received stents. His pain lasted for a few hours Review of Systems REVIEW OF SYSTEMS: CONSTITUTIONAL: No fever, no malaise, no fatigue. HEENT: No recent visual problems or hearing problems. Denied any sore throat. CARDIOVASCULAR: No , orthopnea, PND, no palpitations, no syncope. PULMONARY: No shortness of breath, no cough, no hemoptysis. GASTROINTESTINAL: No diarrhea, no nausea, no vomiting, no abdominal pain. NEUROLOGICAL: No headaches, no weakness, no numbness. HEMATOLOGICAL: Denies any bleeding or petechiae. GENITOURINARY: Denies any burning micturition, frequency, or urgency. MUSCULOSKELETAL/RHEUMATOLOGICAL: Denies any joint pain, swelling, or any muscle pain. ENDOCRINE: Denies any polyuria or polydipsia. The rest of the 14-point review of systems is negative. Past Medical History Past Medical History: Coronary Artery Disease (CAD), Cancer, Chest Pain / Angina, Diabetes Mellitus, Hypertension, Skin Disorder Additional Past Medical History / Comment(s): Intermittent BILATERAL CLAUDICATION & NEW OCCURRENCE OF LEFT PLANTAR FASCITIS (DIFFICULT TO WALK). Hx of bladder ca with surgery, psoriases,eczema, hiatal hernia, umbilical hernia, kidney stones 2004. History of Any Multi-Drug Resistant Organisms: None Reported Past Surgical History: Heart Catheterization With Stent Additional Past Surgical History / Comment(s): 10/20/15 last CARDIAC STENT-has had several previous cardiac stents, vasectomy, bladder sx x2 to remove tumors. L femoral artherectomy/STENT TO LT common ILIAC artery, 05/22/16 R femoral/popliteal atherectomy with PTBA/stent, angiograms, aortogram with run off. Past Anesthesia/Blood Transfusion Reactions: No Reported Reaction Additional Past Anesthesia/Blood Transfusion Reaction / Comment(s): CLAUSTROPHOBIC IN LARGE CROWDS Date of Last Stent Placement:: 10/20/15 Past Psychological History: No Psychological Hx Reported Smoking Status: Current every day smoker Past Alcohol Use History: None Reported Past Drug Use History: Marijuana - Past Family History Father Family Medical History: Unable to Obtain Additional Family Medical History / Comment(s): PT'S DAD WHEN PT WAS AGE 4 DOES'NT KNOW ANY HX ON HIM. Mother Family Medical History: Diabetes Mellitus, Hyperlipidemia, Hypertension, Vascular Disorder Medications and Allergies Home Medications Medication Instructions Recorded Confirmed Type Multivitamins, Thera [Multivitamin 1 tab PO DAILY 11/01/19 11/01/19 History (formulary)] Turmeric (Unknown Strength) 1 tab PO DAILY 11/01/19 11/01/19 History Unknown Vitamin For Prostate 1 tab PO DAILY 11/01/19 11/01/19 History Vitamin D3 (Unknown Strength) 1 tab PO DAILY 11/01/19 11/01/19 History Vitamin K (Unknown Strength) 1 tab PO DAILY 11/01/19 11/01/19 History Allergies Allergy/AdvReac Type Severity Reaction Status Date / Time ragweed pollen Allergy Unknown Verified 11/01/19 16:27 Physical Exam Vitals: Vital Signs Temp Pulse Resp BP Pulse Ox 11/01/19 16:00 53 L 16 156/86 11/01/19 15:00 59 L 18 145/85 11/01/19 14:30 83 16 11/01/19 14:23 18 11/01/19 14:07 98.3 F 94 16 132/92 99 Intake and Output 11/01/19 11/01/19 11/01/19 06:59 14:59 22:59 Other: Weight 74.843 kg PHYSICAL EXAMINATION: GENERAL: The patient is alert and oriented x3, not in any acute distress. Well developed, well nourished. HEENT: Pupils are round and equally reacting to light. EOMI. No scleral icterus. No conjunctival pallor. Normocephalic, atraumatic. No pharyngeal erythema. No thyromegaly. CARDIOVASCULAR: S1 and S2 present. No murmurs, rubs, or gallops. PULMONARY: Chest is clear to auscultation, no wheezing or crackles. ABDOMEN: Soft, nontender, nondistended, normoactive bowel sounds. No palpable organomegaly. MUSCULOSKELETAL: No joint swelling or deformity. EXTREMITIES: No cyanosis, clubbing, or pedal edema. NEUROLOGICAL: Gross neurological examination did not reveal any focal deficits. SKIN: No rashes. Results CBC & Chem 7: 11/01/19 14:47 11/01/19 14:47 Labs: Abnormal Lab Results - Last 24 Hours (Table) 11/01/19 Range/Units 14:47 Carbon Dioxide 19 L (22-30) mmol/L Glucose 309 H (74-99) mg/dL Assessment and Plan Plan: -Chest pain we'll rule out acute coronary syndromes patient will be evaluated by cardiology will obtain 2 more sets of his and EKGs patient is not any antiplatelet therapy beta gaurav statin at this time. Although patient's appetite is in 50s. Patient did have peripheral vascular disease and stents to lower limbs. -Elevated blood sugars possibility of type 2 diabetes mellitus patient is not in medications will obtain hemoglobin A1c -Hypertension -Coronary artery disease and peripheral asked her disease -Continued nicotine use: Counseling was provided
[2019-11-01 20:08] LABS: Glucose,Whole Blood 244 mg/dL (75-99)
[2019-11-01] MEDS ORDERED: HEPARIN SODIUM,PORCINE 5,000 UNIT/ML 1 ML VIAL IV PRN (21:25)
[2019-11-01] MEDS ORDERED: HEPARIN SODIUM,PORCINE 5,000 UNIT/ML 1 ML VIAL IV ONE (21:25)
[2019-11-01] MEDS: METOPROLOL TARTRATE 25 MG TAB PO SCH (21:39)
[2019-11-01] MEDS: HEPARIN SOD,PORK IN 0.45% NACL 25,000 UNIT in 0.45% NACL 1 250ML.BAG IV SCH (21:40)
[2019-11-02 02:27] LABS: Hemoglobin A1C 8.8 % (4.0-6.0)
[2019-11-02 04:43] LABS: Cholesterol 174 mg/dL (<200); HDL Cholesterol 27 mg/dL (40-60); LDL Cholesterol,Calculated 102 mg/dL (0-99); Triglycerides 227 mg/dL (<150)
[2019-11-02 06:13] LABS: Glucose,Whole Blood 152 mg/dL (75-99)
[2019-11-02] MEDS: ASPIRIN 325 MG TAB PO SCH (07:42)
[2019-11-02] MEDS: METOPROLOL TARTRATE 25 MG TAB PO SCH ×2 (07:42→20:47)
[2019-11-02] MEDS ORDERED: ATORVASTATIN 80 MG TAB PO SCH (09:00)
[2019-11-02] MEDS ORDERED: ALPRAZolam 0.5 MG TAB PO PRN (09:33)
[2019-11-02] MEDS ORDERED: ATORVASTATIN 80 MG TAB PO STA (09:33)
[2019-11-02] MEDS ORDERED: ALPRAZolam 0.25 MG TAB PO PRN (09:33)
[2019-11-02] MEDS ORDERED: NITROGLYCERIN SL TABS 0.4 MG TAB SUBLINGUAL PRN (09:33)
[2019-11-02] MEDS ORDERED: SODIUM CHLORIDE 0.9% 1,000 ML in EMPTY BAG 1 BAG IV ONE (09:33)
[2019-11-02] MEDS ORDERED: ASPIRIN 325 MG TAB PO STA (09:33)
--- NOTE | 2019-11-02 10:35 | P.CRDCN ---
History of Present Illness Consult date: 11/02/19 Requesting physician: Zara Crenshaw Consult reason: chest pain Chief complaint: Chest pain History of present illness: This is a 64-year-old gentleman who used to follow regularly with Dr. cristian avery in the office. He has a known history of coronary artery disease with multiple stent placements in the past, hypertension, hyperlipidemia, nicotine dependence, diabetes, PAD and PVD with prior peripheral stenting. Patient also has a history of marijuana use. He presents to the hospital on this occasion with symptoms of chest pain that the patient states woke him from sleep around 4 AM Friday morning. Patient had something to eat and following that the symptoms worsened. He came to the hospital for further evaluation and treatment. His EKG on presentation here showed a normal sinus rhythm with mild depression in the inferior leads. Blood pressure 178/80 with a heart rate in the 60s, temperature 97.5, 98% on room air. White blood cell count 9.8, hemoglobin 14.3, platelet count 285. Sodium 138, potassium 4.4, BUN 15, creatinine 0.8. Troponin 0.02, 0.95, 1.2. Cholesterol 174, triglycerides 227, LDL 102, HDL 27. At the time of my examination this morning, patient is currently chest pain- free. According to the patient, he refuses to take any meds unless they are natural or grown from the earth. He does agree at this time to take aspirin and Plavix. Patient was seen in consultation by Dr. Rubio and advised to undergo cardiac catheterization, the risks and the benefits were explained to the patient in detail and he is willing to proceed. Past Medical History Past Medical History: Coronary Artery Disease (CAD), Cancer, Chest Pain / Angina, Diabetes Mellitus, Hypertension, Skin Disorder Additional Past Medical History / Comment(s): Intermittent BILATERAL CLAUDICATION & NEW OCCURRENCE OF LEFT PLANTAR FASCITIS (DIFFICULT TO WALK). Hx of bladder ca with surgery, psoriases,eczema, hiatal hernia, umbilical hernia, kidney stones 2004. History of Any Multi-Drug Resistant Organisms: None Reported Past Surgical History: Heart Catheterization With Stent Additional Past Surgical History / Comment(s): 10/20/15 last CARDIAC STENT-has had several previous cardiac stents, vasectomy, bladder sx x2 to remove tumors. L femoral artherectomy/STENT TO LT common ILIAC artery, 05/22/16 R femoral/popliteal atherectomy with PTBA/stent, angiograms, aortogram with run off. Past Anesthesia/Blood Transfusion Reactions: No Reported Reaction Additional Past Anesthesia/Blood Transfusion Reaction / Comment(s): CLAUSTROPHOBIC IN LARGE CROWDS Date of Last Stent Placement:: 10/20/15 Past Psychological History: No Psychological Hx Reported Smoking Status: Current every day smoker Past Alcohol Use History: None Reported Additional Past Alcohol Use History / Comment(s): pt states smokes 1/2 to a full pack a day, smokes majijauna on occation Past Drug Use History: Marijuana - Past Family History Father Family Medical History: Unable to Obtain Additional Family Medical History / Comment(s): PT'S DAD WHEN PT WAS AGE 4 DOES'NT KNOW ANY HX ON HIM. Mother Family Medical History: Diabetes Mellitus, Hyperlipidemia, Hypertension, Vascular Disorder Medications and Allergies Home Medications Medication Instructions Recorded Confirmed Type Multivitamins, Thera [Multivitamin 1 tab PO DAILY 11/01/19 11/01/19 History (formulary)] Turmeric (Unknown Strength) 1 tab PO DAILY 11/01/19 11/01/19 History Unknown Vitamin For Prostate 1 tab PO DAILY 11/01/19 11/01/19 History Vitamin D3 (Unknown Strength) 1 tab PO DAILY 11/01/19 11/01/19 History Vitamin K (Unknown Strength) 1 tab PO DAILY 11/01/19 11/01/19 History Allergies Allergy/AdvReac Type Severity Reaction Status Date / Time ragweed pollen Allergy Unknown Verified 11/01/19 16:27 Physical Exam Vitals: Vital Signs Temp Pulse Pulse Resp BP BP BP 11/02/19 07:36 97.5 F L 60 17 178/82 11/02/19 04:00 98.1 F 54 L 16 154/79 11/01/19 23:33 97.9 F 56 L 17 188/92 11/01/19 20:37 97.6 F 50 L 16 181/89 11/01/19 20:00 50 L 16 200/65 208/85 11/01/19 19:30 98.3 F 59 L 18 173/90 11/01/19 19:21 59 L 18 173/90 11/01/19 16:00 53 L 16 156/86 11/01/19 15:00 59 L 18 145/85 11/01/19 14:30 83 16 11/01/19 14:23 18 11/01/19 14:07 98.3 F 94 16 132/92 Pulse Ox 11/02/19 07:36 98 11/02/19 04:00 97 11/01/19 23:33 99 11/01/19 20:37 100 11/01/19 20:00 11/01/19 19:30 97 11/01/19 19:21 97 11/01/19 16:00 11/01/19 15:00 11/01/19 14:30 11/01/19 14:23 11/01/19 14:07 99 Intake and Output 11/01/19 11/02/19 11/02/19 22:59 06:59 14:59 Intake Total 67.524 Output Total 400 200 Balance -332.476 -200 Intake: Intake, IV Titration 67.524 Amount Heparin Sod,Pork in 0.45% 67.524 NaCl 25,000 unit In 0.45 % NaCl 1 250ml.bag @ 12 UNITS/KG/HR 9.084 mls/hr IV .Q24H [facility] Rx#: [id number] Output: Urine 400 200 Other: Voiding Method Toilet Toilet Urinal Urinal Weight 75.7 kg 75.2 kg PHYSICAL EXAMINATION: GENERAL: 64-year-old gentleman in no acute distress at the time of my examination HEENT: Head is atraumatic, normocephalic. Pupils equal, round. Sclera anicteric. Conjunctiva are clear. Mucous membranes of the mouth are moist. Neck is supple. There is no elevated jugular venous pressure. No carotid bruit is heard. HEART EXAMINATION: Heart S1, S2 normal. No murmur or gallop heard. CHEST EXAMINATION: Lungs are clear to auscultation and precussion. No chest wall tenderness is noted on palpation or with deep breathing. ABDOMEN: Soft, nontender. Bowel sounds are heard. No organomegaly noted. EXTREMITIES: 2+ peripheral pulses with no evidence of peripheral edema and no calf tenderness noted. NEUROLOGIC patient is awake, alert and oriented 3 . . Results 11/01/19 14:47 11/01/19 14:47 Cardiac Enzymes 11/01/19 11/01/19 11/01/19 Range/Units 14:47 14:47 18:28 AST 22 (17-59) U/L Troponin I 0.024 0.957 H* (0.000-0.034) ng/mL 11/01/19 Range/Units 20:13 AST (17-59) U/L Troponin I 1.220 H* (0.000-0.034) ng/mL Coagulation 11/01/19 11/02/19 Range/Units 14:47 03:50 PT 9.7 (9.0-12.0) sec APTT 24.9 41.5 H (22.0-30.0) sec Lipids 11/02/19 Range/Units 03:50 Triglycerides 227 H (<150) mg/dL Cholesterol 174 (<200) mg/dL HDL Cholesterol 27 L (40-60) mg/dL CBC 11/01/19 Range/Units 14:47 WBC 9.8 (3.8-10.6) k/uL RBC 4.63 (4.30-5.90) m/uL Hgb 14.3 (13.0-17.5) gm/dL Hct 43.2 (39.0-53.0) % Plt Count 285 (150-450) k/uL Comprehensive Metabolic Panel 11/01/19 Range/Units 14:47 Sodium 138 (137-145) mmol/L Potassium 4.4 (3.5-5.1) mmol/L Chloride 105 (98-107) mmol/L Carbon Dioxide 19 L (22-30) mmol/L BUN 15 (9-20) mg/dL Creatinine 0.87 (0.66-1.25) mg/dL Glucose 309 H (74-99) mg/dL Calcium 9.5 (8.4-10.2) mg/dL AST 22 (17-59) U/L ALT 16 (4-49) U/L Alkaline Phosphatase 88 (38-126) U/L Total Protein 6.9 (6.3-8.2) g/dL Albumin 4.0 (3.5-5.0) g/dL Current Medications Generic Name Dose Route Start Last Admin Trade Name Freq PRN Reason Stop Dose Admin Alprazolam 0.25 mg 11/02/19 09:33 Xanax PO Q6HR PRN Mild Anxiety Alprazolam 0.5 mg 11/02/19 09:33 Xanax PO Q6HR PRN Moderate Anxiety Aspirin 325 mg 11/02/19 09:00 11/02/19 07:42 Aspirin PO 325 mg DAILY [facility] Administration Atorvastatin Calcium 80 mg 11/03/19 09:00 Lipitor PO DAILY [facility] Heparin Sodium (Porcine) 0 unit 11/01/19 21:25 Heparin IV PER PROTOCOL PRN Low PTT Protocol Heparin Sodium/Sodium Chloride 250 mls @ 9.084 mls/hr 11/01/19 21:30 11/02/19 05:06 25,000 unit/ Sodium Chloride IV 14 units/kg/hr .Q24H [facility] 10.598 mls/hr Titration Protocol 12 UNITS/KG/HR Sodium Chloride 1,000 ml/ IV 1,000 mls @ 75.2 mls/hr 11/02/19 09:33 Solution IV 11/02/19 22:50 .[id number] ONE 1 ML/KG/HR Insulin Aspart 0 unit 11/02/19 12:30 Novolog SQ ACHS [facility] Protocol Metoprolol Tartrate 25 mg 11/01/19 21:30 11/02/19 07:42 Lopressor PO 25 mg BID [facility] Administration Nitroglycerin 0.4 mg 11/01/19 17:02 Nitrostat SUBLINGUAL Q5M PRN Chest Pain Intake and Output 11/01/19 11/02/19 11/02/19 22:59 06:59 14:59 Intake Total 67.524 Output Total 400 200 Balance -332.476 -200 Intake: Intake, IV Titration 67.524 Amount Heparin Sod,Pork in 0.45% 67.524 NaCl 25,000 unit In 0.45 % NaCl 1 250ml.bag @ 12 UNITS/KG/HR 9.084 mls/hr IV .Q24H [facility] Rx#: [id number] Output: Urine 400 200 Other: Voiding Method Toilet Toilet Urinal Urinal Weight 75.7 kg 75.2 kg 11/01/19 14:47 11/01/19 14:47 EKG Interpretations (text) EKG shows a normal sinus rhythm with ST depression noted in the inferior leads. Assessment and Plan Plan: Assessment and plan #1 non-ST elevation MN #2 known history of coronary artery disease with prior stenting #3 hypertension #4 hyperlipidemia #5 nicotine dependence #6 PAD and PVD with prior intervention #7 diabetes #8 history of marijuana use #9 noncompliance with medication Plan We will obtain a stat echocardiogram with Doppler study. Patient has been advised to undergo cardiac catheterization, the risks and benefits explained to the patient in detail. It was also explained to the patient that if he is not w illing to take aspirin and Plavix, that medical therapy would be his option at this time. He has agreed to take these medications and therefore the cardiac catheterization will be performed today by Dr. Rubio. Further recommendations will be based on the findings of this procedure and the regino holguin's overall clinical course. DNP note has been reviewed, I agree with a documented findings and plan of care. Patient was seen and examined.
[2019-11-02 11:17] LABS: Glucose,Whole Blood 150 mg/dL (75-99)
--- NOTE | 2019-11-02 11:17 | ECHOF ---
Referral Reason:assess lvf MEASUREMENTS -------- HEIGHT: 182.9 cm WEIGHT: 79.4 kg BP: RVIDd: 2.7 cm (< 3.3) IVSd: 1.4 cm (0.6 - 1.1) LVIDd: 4.6 cm (3.9 - 5.3) LVPWd: 1.3 cm (0.6 - 1.1) IVSs: 1.8 cm LVIDs: 3.4 cm LVPWs: 1.4 cm LA Diam: 3.9 cm (2.7 - 3.8) LAESV Index (A-L): 27.67 ml/m Ao Diam: 3.3 cm (2.0 - 3.7) AV Cusp: 1.6 cm (1.5 - 2.6) MV EXCURSION: 17.354 mm (> 18.000) MV EF SLOPE: 123 mm/s (70 - 150) EPSS: 0.3 cm MV E Ari: 0.69 m/s MV DecT: 353 ms MV A Ari: 0.62 m/s MV E/A Ratio: 1.11 RAP: 5.00 mmHg RVSP: 10.74 mmHg FINDINGS -------- Sinus rhythm. This was a technically adequate study. The left ventricular size is normal. There is moderate concentric left ventricular hypertrophy. O verall left ventricular systolic function is low-normal with, an EF between 50 - 55 %. The right ventricle is normal in size. Normal LA size by volume 22+/-6 ml/m2. The right atrial size is normal. There is mild aortic valve sclerosis. There is no evidence of aortic regurgitation. Mild mitral annular calcification present. Moderate mitral regurgitation is present. Mild tricuspid regurgitation present. Right ventricular systolic pressure is normal at < 35 mmHg. Trace/mild (physiologic) pulmonic regurgitation. The aortic root size is normal. There is no pericardial effusion. CONCLUSIONS -------- 1. There is moderate concentric left ventricular hypertrophy. 2. Overall left ventricular systolic function is low-normal with, an EF between 50 - 55 %. 3. Normal LA size by volume 22+/-6 ml/m2. 4. There is mild aortic valve sclerosis. 5. Mild mitral annular calcification present. 6. Moderate mitral regurgitation is present. 7. Mild tricuspid regurgitation present. 8. Trace/mild (physiologic) pulmonic regurgitation. 9. There is no pericardial effusion. LIFE MANAGER: Chasidy Hassan RDCS
--- NOTE | 2019-11-02 11:33 | P.PN ---
Subjective Patient with history of severe peripheral vascular disease and coronary artery disease in the past and stents to coronary vasculature as well as peripheral vessels admitted with non-ST elevation microinfarction patient stopped taking all his medications patient is diabetic as as well with hemoglobin A1c of 8.8 had a did extensive counseling regarding compliance with medications patient can use to smoke extensive counseling regarding this was provided as well. Constitutional: Denied any fatigue denied any fever. Cardio vascular: denied any chest pain, palpitations Gastrointestinal denied any nausea vomiting Pulmonary: Denied any shortness of breath cough Neurologic denied any new focal deficits All inpatient medications were reviewed and appropriate changes in these medications as dictated in the interval history and assessment and plan. Objective - Vital Signs Vital signs: Vital Signs Temp 97.5 F L 11/02/19 07:36 Pulse 60 11/02/19 07:36 Resp 17 11/02/19 07:36 BP 178/82 11/02/19 07:36 Pulse Ox 98 11/02/19 07:36 Intake & Output 11/01/19 11/02/19 11/02/19 18:59 06:59 18:59 Intake Total 67.524 Output Total 400 200 Balance -332.476 -200 Weight 74.843 kg 75.2 kg Intake: Intake, IV Titration 67.524 Amount Heparin Sod,Pork in 0.45% 67.524 NaCl 25,000 unit In 0.45 % NaCl 1 250ml.bag @ 12 UNITS/KG/HR 9.084 mls/hr IV .Q24H [facility] Rx#: [id number] Output: Urine 400 200 Other: Voiding Method Toilet Toilet Urinal Urinal - Exam PHYSICAL EXAMINATION: GENERAL: The patient is alert and oriented x3, not in any acute distress. Well developed, well nourished. HEENT: Pupils are round and equally reacting to light. EOMI. No scleral icterus. No conjunctival pallor. Normocephalic, atraumatic. No pharyngeal erythema. No thyromegaly. CARDIOVASCULAR: S1 and S2 present. No murmurs, rubs, or gallops. PULMONARY: Chest is clear to auscultation, no wheezing or crackles. ABDOMEN: Soft, nontender, nondistended, normoactive bowel sounds. No palpable organomegaly. MUSCULOSKELETAL: No joint swelling or deformity. EXTREMITIES: No cyanosis, clubbing, or pedal edema. NEUROLOGICAL: Gross neurological examination did not reveal any focal deficits. SKIN: No rashes. - Labs CBC & Chem 7: 11/01/19 14:47 11/01/19 14:47 Labs: Abnormal Lab Results - Last 24 Hours (Table) 11/01/19 11/01/19 11/01/19 Range/Units 14:47 18:28 18:28 APTT (22.0-30.0) sec Carbon Dioxide 19 L (22-30) mmol/L Glucose 309 H (74-99) mg/dL POC Glucose (mg/dL) (75-99) mg/dL Hemoglobin A1c 8.8 H (4.0-6.0) % Troponin I 0.957 H* (0.000-0.034) ng/mL Triglycerides (<150) mg/dL LDL Cholesterol, Calc (0-99) mg/dL HDL Cholesterol (40-60) mg/dL 11/01/19 11/01/19 11/02/19 Range/Units 20:07 20:13 03:50 APTT (22.0-30.0) sec Carbon Dioxide (22-30) mmol/L Glucose (74-99) mg/dL POC Glucose (mg/dL) 244 H (75-99) mg/dL Hemoglobin A1c (4.0-6.0) % Troponin I 1.220 H* (0.000-0.034) ng/mL Triglycerides 227 H (<150) mg/dL LDL Cholesterol, Calc 102 H (0-99) mg/dL HDL Cholesterol 27 L (40-60) mg/dL 11/02/19 11/02/19 11/02/19 Range/Units 03:50 06:11 11:15 APTT 41.5 H (22.0-30.0) sec Carbon Dioxide (22-30) mmol/L Glucose (74-99) mg/dL POC Glucose (mg/dL) 152 H 150 H (75-99) mg/dL Hemoglobin A1c (4.0-6.0) % Troponin I (0.000-0.034) ng/mL Triglycerides (<150) mg/dL LDL Cholesterol, Calc (0-99) mg/dL HDL Cholesterol (40-60) mg/dL Assessment and Plan Plan: -Acute non-ST elevation microinfarction: Continue with heparin patient will undergo cardiac catheterization today to continue with the beta gaurav Antiplatelet therapy heparin. -Type 2 diabetes mellitus: Patient was started on insulin for now patient will be discharged on Januvia and metformin upon discharge peripheral vascular disease and stents to lower limbs. -Elevated blood sugars possibility of type 2 diabetes mellitus patient is not in medications will obtain hemoglobin A1c -Hypertension -Coronary artery disease and peripheral asked her disease -Continued nicotine use: Counseling was provided
[2019-11-02] MEDS: INSULIN ASPART (NovoLOG) 100 UNIT/ML VIAL SQ SCH ×3 (12:25→20:48)
[2019-11-02 16:36] LABS: Glucose,Whole Blood 154 mg/dL (75-99)
[2019-11-02] MEDS ORDERED: IV FLUID CONTINUATION 1,000 ML IV ONE (17:35)
[2019-11-02] MEDS ORDERED: MIDAZOLAM 2 MG/2 ML VIAL IVP ONE (17:36)
[2019-11-02] MEDS ORDERED: fentaNYL (PF) 50 MCG/ML 2 ML AMP IVP ONE (17:36)
[2019-11-02] MEDS ORDERED: LIDOCAINE 1% INJ 10MG/ML (20 ML MDV) SQ ONE (17:38)
[2019-11-02] MEDS ORDERED: VERAPAMIL SYRINGE (5 MG/10 ML) INTRAARTER ONE (17:39)
[2019-11-02] MEDS ORDERED: HEPARIN SODIUM 1,000 UN/ML (10ML VL) IV ONE (17:39)
[2019-11-02] MEDS ORDERED: ENALAPRILAT 1.25 MG/ML 1 ML VIAL IVP ONE (18:00)
[2019-11-02] MEDS ORDERED: IOPAMIDOL-370 100ML BTL INJ ONE (18:03)
[2019-11-02] MEDS ORDERED: RX INFO: IV CONTRAST WAS GIVEN 1 EACH MISC MISCELLANE PRN (18:06)
--- NOTE | 2019-11-02 18:17 | P.CARDCATH ---
Date of Procedure: 11/02/19 Preoperative Diagnosis: Non-STEMI Postoperative Diagnosis: Triple-vessel disease Procedure(s) Performed: Left heart cath, selective coronary arteriography. No ventriculography Description of Procedure: HISTORY: This is a 64-year-old gentleman with history of peripheral vascular disease who was admitted to the hospital with complaints of chest pain and positive troponins suggestive of non-STEMI. Patient is advised to have a c ardiac catheterization for definitive diagnosis CONSENT:I have discussed the risks, benefits and alternative therapies for the above-mentioned procedure and for both sedation/analgesia as well as necessary blood product administration, if indicated, as they pertain to this patient. The patient has indicated understanding and acceptance of the risks and procedures discussed. PROCEDURE: Patient was brought to the lab in a fasting state. Patient was given some IV sedation. The right wrist is infiltrated with lidocaine and right radial artery was entered using Seldinger technique. A 6-Palauan catheter was left in place and selective coronary arteriography was performed. Patient tolerated the procedure well. TR band was applied for hemostasis. No immediate complications were noted and patient was transferred to [facility] in a stable condition Conscious Sedation: Versed 1mg Fentanyl 25 g Duration 14minutes HEMODYNAMICS: Aortic pressure is about 170/70. The left ventricular end- diastolic pressure was not measured. SELECTIVE CORONARY ARTERIOGRAPHY: LEFT MAIN: Short and divides into LAD and circumflex immediately. Calcified . THE LEFT ANTERIOR DESCENDING CORONARY ARTERY : Moderate caliber vessel with diffuse disease. There is eccentric 50-60% lesion proximally. There is about 70% stenosis in midportion and totally occluded distally. There are moderate 2 diagonal branches which have about 70-80% ostial stenosis. THE LEFT CIRCUMFLEX AND IS CORONARY ARTERY: This is a dominant vessel with 95% stenosis in midportion. Heavily calcified. THE RIGHT CORONARY ARTERY: This is a moderate caliber vessel with multiple 95% stenosis in the proximal and midportion LEFT VENTRIcULAGRAPHY:Not done FINAL IMPRESSION: Severe triple-vessel disease with critical lesion in the right coronary artery and also circumflex coronary artery. There is moderately severe disease involving the maximal LAD with significant lesion in the mid LAD and total occlusion distally. 2 diagonal branches have ostial stenosis PLAN: . The films are reviewed with Dr. MELISSA Richardson. Because of triple-vessel disease and heavily calcified vessels, he suggest that we get an opinion for possible bypass. If surgery is felt to be not ideal, stent placement of the circumflex and RCA to be considered PROGNOSIS: guarded
[2019-11-02] MEDS: SODIUM CHLORIDE 0.9% 1,000 ML IV SCH (18:35)
[2019-11-02 20:30] LABS: Glucose,Whole Blood 176 mg/dL (75-99)
[2019-11-03 01:33] VITALS: RESP 16
[2019-11-03] MEDS: HEPARIN SOD,PORK IN 0.45% NACL 25,000 UNIT in 0.45% NACL 1 250ML.BAG IV SCH ×2 (03:55→22:18)
[2019-11-03 06:05] LABS: Glucose,Whole Blood 140 mg/dL (75-99)
[2019-11-03] MEDS: INSULIN ASPART (NovoLOG) 100 UNIT/ML VIAL SQ SCH ×4 (06:39→20:54)
[2019-11-03] MEDS: ISOSORBIDE MONONITRATE ER 30 MG TAB.ER.24H PO SCH (07:42)
[2019-11-03] MEDS: METOPROLOL TARTRATE 25 MG TAB PO SCH ×2 (07:43→20:54)
[2019-11-03] MEDS: ATORVASTATIN 80 MG TAB PO SCH (07:43)
[2019-11-03] MEDS: ASPIRIN 325 MG TAB PO SCH (07:43)
[2019-11-03 08:11] LABS: African American GFR (CKD) >90 (>60 ml/min/1.73 sqM); Anion Gap 5 mmol/L; Blood Urea Nitrogen 15 mg/dL (9-20); Calcium 8.8 mg/dL (8.4-10.2); Carbon Dioxide 22 mmol/L (22-30); Chloride 111 mmol/L (98-107); Glucose 135 mg/dL (74-99); Non-African American GFR(CKD) >90 (>60 ml/min/1.73 sqM); Sodium 138 mmol/L (137-145)
[2019-11-03] MEDS ORDERED: MD COMMUNICATION TO PHARMACY 1 EACH MISC PO ONE (08:53)
[2019-11-03 10:58] LABS: Basophils # (A) 0.1 k/uL (0-0.2); Basophils % (A) 1 %; Eosinophils # (A) 0.3 k/uL (0-0.7); Eosinophils % (A) 4 %; HCT 39.3 % (39.0-53.0); HGB 13.3 gm/dL (13.0-17.5); Lymphocytes % (A) 24 %; MCH 32.4 pg (25.0-35.0); MCHC 33.7 g/dL (31.0-37.0); Mean Platelet Volume 7.6; Monocytes # (A) 0.7 k/uL (0-1.0); Monocytes % (A) 8 %; Neutrophils # (A) 5.1 k/uL (1.3-7.7); Neutrophils % (A) 60 %; Platelet Count 236 k/uL (150-450); RBC 4.09 m/uL (4.30-5.90); RDW 13.1 % (11.5-15.5); WBC 8.5 k/uL (3.8-10.6)
[2019-11-03 11:03] LABS: INR 0.9 (<1.2); Partial Thromboplastin Time 44.7 sec (22.0-30.0); Prothrombin Time 9.8 sec (9.0-12.0)
[2019-11-03 11:04] LABS: ALT 15 U/L (4-49); AST 26 U/L (17-59); African American GFR (CKD) >90 (>60 ml/min/1.73 sqM); Albumin 3.4 g/dL (3.5-5.0); Alkaline Phosphatase 69 U/L (38-126); Anion Gap 9 mmol/L; Blood Urea Nitrogen 15 mg/dL (9-20); Calcium 8.7 mg/dL (8.4-10.2); Carbon Dioxide 17 mmol/L (22-30); Chloride 110 mmol/L (98-107); Glucose 277 mg/dL (74-99); Magnesium 1.6 mg/dL (1.6-2.3); Non-African American GFR(CKD) >90 (>60 ml/min/1.73 sqM); Potassium 4.3 mmol/L (3.5-5.1); Sodium 136 mmol/L (137-145); Total Bilirubin 0.5 mg/dL (0.2-1.3); Total Protein 6.2 g/dL (6.3-8.2)
[2019-11-03 12:02] LABS: Glucose,Whole Blood 198 mg/dL (75-99)
[2019-11-03] MEDS: SODIUM CHLORIDE 0.9% 1,000 ML IV SCH ×2 (12:49→16:48)
--- NOTE | 2019-11-03 13:59 | P.GSCN ---
History of Present Illness Consult date: 11/03/19 Reason for Consult: Symptomatic multivessel coronary artery disease, elevated troponins on admission, evaluation for myocardial revascularization surgery. Requesting physician: Junior Rubio History of present illness: This is 64-year-old gentleman who is followed by Dr. Helga Keen on an outpatient basis. He is a past medical history significant for hypertension, hyperlipidemia, history of peripheral arterial disease with previous arthrectomy and BOILER WASHER of the left SFA and arthrectomy and BOILER WASHER of the left PHOTOGRAPHY INTERN and stenting of the left BRIAN, history of coronary artery disease with previous stent placement to his proximal circumflex and ostial OM1 in 2008, family history of early onset coronary artery disease with his dad passing away from an [place] at age 49, poorly controlled type 2 diabetes mellitus with an admission hemoglobin A1c of 8.8, history of bladder cancer status post radiation, chemotherapy and bladder surgery, kidney stones, psoriasis, current ongoing chronic tobacco abuse with smoking half a pack per day, marijuana use, history of right carotid bruit and history of noncompliance with taking medications. On 11/01/2019 the patient woke up from a sleep with complaints of substernal chest pain with no radiating pain. He reports that the pain was not associated with any shortness of breath, nausea, vomiting, dizziness, presyncope or syncope. He presented to the emergency department here at [facility] due to the complaints of chest pain. On admission a chest x-ray was completed which showed no evidence for acute pulmonary disease. Laboratory results showed a WBC count of 9.8, hemoglobin 14.3, platelets 285, BUN 15, creatinine 0.87 and positive troponins as high as 1.220 ruling in the patient for a non-ST elevated myocardial infarction. The patient's 12-lead EKG demonstrated normal sinus rhythm with STT wave abnormality. For further evaluation a 2-D echocardiogram was completed which demonstrated an overall left ventricular systolic function to be low normal with an ejection fraction of 50-55%, moderate mitral valve regurgitation, mild tricuspid valve regurgitation and trace to mild pulmonic valve regurgitation. Due to the patient's presenting symptoms, positive troponins and 2-D echocardiogram results the patient underwent a left heart catheterization, selective coronary arteriography which demonstrated a 50-60% stenosis to his proximal left anterior descending coronary artery, a 70% stenosis to his mid left anterior descending coronary artery, 70-80% stenosis to his diagonal coronary artery, a 95% to his mid circumflex coronary artery and a 95% stenosis to his proximal and mid right coronary artery. Subsequently, due to the findings on the cardiac catheterization a consult was placed to Dr. Sunday Hewitt from cardiothoracic surgery for further evaluation and recommendations on myocardial revascularization surgery. Review of Systems A 14 point review of systems was completed was negative except as mentioned in HPI. Past Medical History Past Medical History: Coronary Artery Disease (CAD) (Previous stent placement to his circumflex and OM coronary arteries in 2008.), Cancer, Chest Pain / Angina, Diabetes Mellitus (Poorly controlled, admission hemoglobin A1c 8.8.), Hypertension, Skin Disorder, Vascular Disorder Additional Past Medical History / Comment(s): History of stent placement to his left common iliac artery, Hx of bladder CA, status post radiation, chemotherapy and surgery, psoriases,eczema, hiatal hernia, umbilical hernia, kidney stones 2004. History of Any Multi-Drug Resistant Organisms: None Reported Past Surgical History: Heart Catheterization With Stent Additional Past Surgical History / Comment(s): 10/20/15 last CARDIAC STENT-has had several previous cardiac stents, vasectomy, bladder sx x2 to remove tumors. L femoral artherectomy/STENT TO LT common ILIAC artery, 05/22/16 R femoral/popliteal atherectomy with PTBA/stent, angiograms, aortogram with run off. Past Anesthesia/Blood Transfusion Reactions: No Reported Reaction Additional Past Anesthesia/Blood Transfusion Reaction / Comm: CLAUSTROPHOBIC IN LARGE CROWDS Date of Last Stent Placement:: 10/20/15 Past Psychological History: No Psychological Hx Reported Smoking Status: Current every day smoker Past Alcohol Use History: None Reported Additional Past Alcohol Use History / Comment(s): pt states smokes 1/2 to a full pack a day, smokes majijauna on occation Past Drug Use History: Marijuana - Past Family History Father Family Medical History: Myocardial Infarction ([place]) Additional Family Medical History / Comment(s): PT'S DAD WHEN PT WAS AGE 4 he believes from a myocardial infarction. Mother Family Medical History: Diabetes Mellitus, Hyperlipidemia, Hypertension, Vascular Disorder Medications and Allergies Home Medications Medication Instructions Recorded Confirmed Type Multivitamins, Thera [Multivitamin 1 tab PO DAILY 11/01/19 11/01/19 History (formulary)] Turmeric (Unknown Strength) 1 tab PO DAILY 11/01/19 11/01/19 History Unknown Vitamin For Prostate 1 tab PO DAILY 11/01/19 11/01/19 History Vitamin D3 (Unknown Strength) 1 tab PO DAILY 11/01/19 11/01/19 History Vitamin K (Unknown Strength) 1 tab PO DAILY 11/01/19 11/01/19 History Allergies Allergy/AdvReac Type Severity Reaction Status Date / Time ragweed pollen Allergy Unknown Verified 11/01/19 16:27 Surgical - Exam Vital Signs Temp Pulse Resp BP Pulse Ox 98.3 F 94 16 132/92 99 11/01/19 14:07 11/01/19 14:07 11/01/19 14:07 11/01/19 14:07 11/01/19 14:07 This a pleasant 64-year-old gentleman who is lying comfortably in bed on the cardiac stepdown unit. He is awake, alert and oriented 3 and is in no acute apparent distress. Oxygen saturation are 98% on room air. - General well developed, well nourished, no distress, no pain - Eyes PERRL, normal ocular movement - ENT normal pinna, normal nares, normal mucosa, no hearing loss, no congestion, poor correction - Neck Neck is supple, no JVD. no masses, trachea midline, no venous distension carotid bruit: bilateral - Respiratory Lung sounds essentially clear throughout. No wheezes, no rhonchi, no crackles. Respirations are symmetrical and nonlabored. Oxygen saturation are 98% on room air. - Cardiovascular Regular rhythm and rate. S1 and S2 present, negative for S3, gallop or murmur. No edema present. Remote telemetry showing normal sinus rhythm with ST depression in lead 2 with occasional PVCs and a heart rate of 64 BPM. Occasional heart rate in the 40s. - Abdomen Abdomen is soft, nontender and nondistended. Active bowel sounds to all 4 abdominal quadrants. No guarding or rigidity. No organomegaly appreciated. - Genitourinary Deferred - Rectum Deferred - Integumentary no rash, no growths, no abnormal pigmentation - Neurologic Cranial nerves II through XII intact. normal coordination, normal sensation - Musculoskeletal normal gait, normal posture - Psychiatric oriented to time, oriented to person, oriented to place, speech is normal, memory intact Results - Labs 11/01/19 14:47 11/03/19 10:31 Abnormal Lab Results - Last 24 Hours (Table) 11/02/19 11/02/19 11/02/19 Range/Units 11:33 16:35 20:28 APTT 45.4 H (22.0-30.0) sec Chloride (98-107) mmol/L Glucose (74-99) mg/dL POC Glucose (mg/dL) 154 H 176 H (75-99) mg/dL 11/03/19 11/03/19 11/03/19 Range/Units 06:04 07:28 12:00 APTT (22.0-30.0) sec Chloride 111 H (98-107) mmol/L Glucose 135 H (74-99) mg/dL POC Glucose (mg/dL) 140 H 198 H (75-99) mg/dL Diabetes panel 11/03/19 Range/Units 07:28 Sodium 138 (137-145) mmol/L Potassium 4.0 (3.5-5.1) mmol/L Chloride 111 H (98-107) mmol/L Carbon Dioxide 22 (22-30) mmol/L BUN 15 (9-20) mg/dL Creatinine 0.77 (0.66-1.25) mg/dL Glucose 135 H (74-99) mg/dL Calcium 8.8 (8.4-10.2) mg/dL Calcium panel 11/03/19 Range/Units 07:28 Calcium 8.8 (8.4-10.2) mg/dL Pituitary panel 11/03/19 Range/Units 07:28 Sodium 138 (137-145) mmol/L Potassium 4.0 (3.5-5.1) mmol/L Chloride 111 H (98-107) mmol/L Carbon Dioxide 22 (22-30) mmol/L BUN 15 (9-20) mg/dL Creatinine 0.77 (0.66-1.25) mg/dL Glucose 135 H (74-99) mg/dL Calcium 8.8 (8.4-10.2) mg/dL Adrenal panel 11/03/19 Range/Units 07:28 Sodium 138 (137-145) mmol/L Potassium 4.0 (3.5-5.1) mmol/L Chloride 111 H (98-107) mmol/L Carbon Dioxide 22 (22-30) mmol/L BUN 15 (9-20) mg/dL Creatinine 0.77 (0.66-1.25) mg/dL Glucose 135 H (74-99) mg/dL Calcium 8.8 (8.4-10.2) mg/dL Assessment and Plan Assessment: 1. Acute non-STEMI, elevated troponins on admission as high as 1.220 2. Symptomatic multivessel coronary artery disease 3. History of hypertension 4. History of hyperlipidemia 5. Chronic ongoing tobacco dependence smokes half a pack of self rolled cigarettes per day 6. History coronary artery disease status post stent placement to his circumflex and OM coronary arteries in 2008 7. History of peripheral vascular disease with previous stent placement to his left common iliac artery 8. Poorly controlled diabetes mellitus type 2, admission hemoglobin A1c 8.8% 9. History of bladder cancer status post radiation, chemotherapy treatment and bladder surgery 10. History of kidney stones 11. History of psoriasis 12. Family history of early onset coronary artery disease with his dad passing away at age 49 from myocardial infarction 13. Occasional marijuana use 14. History of right carotid bruit 15. History of noncompliance with prescribed medical care 16. Mild COPD, preoperative FEV1 60% of predicted value Plan: The patient was seen and examined his bedside on the cardiac stepdown unit. His chart and diagnostic reviewed. Dr. Sunday Hewitt from cardiothoracic surgery reviewed the patient's cardiac catheterization films and 2-D echocardiogram [place] [facility] [place]. Heiwtt discussed the findings on the cardiac catheterization films and the 2-D echocardiogram films with the patient and his present at his bedside. Treatment for triple-vessel coronary artery disease was discussed with the patient and his including myocardial revascularization surgery. Risks and benefits of the surgery were discussed. Understanding the risks and benefits of surgery the patient, wishes to proceed with myocardial revascularization surgery option. Preoperative teaching and preoperative workup has been initiated. A 5 m walk test was completed with the patient by cardiac rehab, time 1: 2.98 seconds, time 2: 2.76 seconds, time 3: 3.08 seconds. Once his preoperative workup has been completed, a STS risk score will be calculated in discussed with the patient preoperatively. The importance of smoking cessation has been discussed with the patient. Dr. Kash horne was discussed with the patient the importance of medical compliance with taking his medi cations preoperatively and postoperatively. The patient reports that he understands and is willing to proceed with the myocardial revascularization surgery and comply with medical therapy prescribed postoperatively. Continue to optimize medical therapy preoperatively with aspirin, statin and beta gaurav. Medical management and other comorbidities per primary care service, cardiology and pulmonary/critical care service. A preoperative FEV1 was completed which demonstrated a 60% of predicted value. Further recommendations based on patient's clinical course. Thank you Dr. Dr. Rubio for this consult and we look forward to working with you in the care of this patient. Time with Patient: Greater than 30
--- NOTE | 2019-11-03 14:27 | P.PN ---
Subjective Patient with history of severe peripheral vascular disease and coronary artery disease in the past and stents to coronary vasculature as well as peripheral vessels admitted with non-ST elevation microinfarction patient stopped taking all his medications patient is diabetic as as well with hemoglobin A1c of 8.8 had a did extensive counseling regarding compliance with medications patient can use to smoke extensive counseling regarding this was provided as well. 11/03/2019 Patient is found to have severe triple vessel disease with a critical lesion in RCA circumflex and moderately severe disease involving LAD. Patient will be a valid by car to thoracic surgery for coronary artery bypass grafting Constitutional: Denied any fatigue denied any fever. Cardio vascular: denied any chest pain, palpitations Gastrointestinal denied any nausea vomiting Pulmonary: Denied any shortness of breath cough Neurologic denied any new focal deficits All inpatient medications were reviewed and appropriate changes in these medications as dictated in the interval history and assessment and plan. Objective - Vital Signs Vital signs: Vital Signs Temp 98.7 F 11/03/19 12:50 Pulse 51 L 11/03/19 12:50 Resp 18 11/03/19 12:50 BP 149/77 11/03/19 12:50 Pulse Ox 98 11/03/19 12:50 Intake & Output 11/02/19 11/03/19 11/03/19 18:59 06:59 18:59 Intake Total 305.002 52.474 575.735 Output Total 750 320 300 Balance -444.998 -267.526 275.735 Weight 75.1 kg Intake: IV 175 Intake, IV Titration 130.002 52.474 95.735 Amount Heparin Sod,Pork in 0.45% 130.002 52.474 95.735 NaCl 25,000 unit In 0.45 % NaCl 1 250ml.bag @ 12 UNITS/KG/HR 9.084 mls/hr IV .Q24H [facility] Rx#: [id number] Oral 480 Output: Urine 750 320 300 Other: Voiding Method Toilet Toilet Toilet Urinal Urinal Urinal # Voids 1 1 # Bowel Movements 1 - Exam PHYSICAL EXAMINATION: GENERAL: The patient is alert and oriented x3, not in any acute distress. Well developed, well nourished. HEENT: Pupils are round and equally reacting to light. EOMI. No scleral icterus. No conjunctival pallor. Normocephalic, atraumatic. No pharyngeal erythema. No thyromegaly. CARDIOVASCULAR: S1 and S2 present. No murmurs, rubs, or gallops. PULMONARY: Chest is clear to auscultation, no wheezing or crackles. ABDOMEN: Soft, nontender, nondistended, normoactive bowel sounds. No palpable organomegaly. MUSCULOSKELETAL: No joint swelling or deformity. EXTREMITIES: No cyanosis, clubbing, or pedal edema. NEUROLOGICAL: Gross neurological examination did not reveal any focal deficits. SKIN: No rashes. - Labs CBC & Chem 7: 11/03/19 10:31 11/03/19 10:31 Labs: Abnormal Lab Results - Last 24 Hours (Table) 11/02/19 11/02/19 11/03/19 Range/Units 16:35 20:28 06:04 RBC (4.30-5.90) m/uL APTT (22.0-30.0) sec Sodium (137-145) mmol/L Chloride (98-107) mmol/L Carbon Dioxide (22-30) mmol/L Glucose (74-99) mg/dL POC Glucose (mg/dL) 154 H 176 H 140 H (75-99) mg/dL Total Protein (6.3-8.2) g/dL Albumin (3.5-5.0) g/dL 11/03/19 11/03/19 11/03/19 Range/Units 07:28 10:31 10:31 RBC 4.09 L (4.30-5.90) m/uL APTT (22.0-30.0) sec Sodium 136 L (137-145) mmol/L Chloride 111 H 110 H (98-107) mmol/L Carbon Dioxide 17 L (22-30) mmol/L Glucose 135 H 277 H (74-99) mg/dL POC Glucose (mg/dL) (75-99) mg/dL Total Protein 6.2 L (6.3-8.2) g/dL Albumin 3.4 L (3.5-5.0) g/dL 11/03/19 11/03/19 Range/Units 10:31 12:00 RBC (4.30-5.90) m/uL APTT 44.7 H (22.0-30.0) sec Sodium (137-145) mmol/L Chloride (98-107) mmol/L Carbon Dioxide (22-30) mmol/L Glucose (74-99) mg/dL POC Glucose (mg/dL) 198 H (75-99) mg/dL Total Protein (6.3-8.2) g/dL Albumin (3.5-5.0) g/dL Assessment and Plan Plan: -Acute non-ST elevation microinfarction: Continue with heparin had triple-vessel disease will need a coronary artery bypass grafting -Type 2 diabetes mellitus: Patient was started on insulin for now patient will be discharged on Januvia and metformin upon discharge peripheral vascular disease and stents to lower limbs. -Elevated blood sugars ,type 2 diabetes mellitus was started on sliding scale insulin patient's hemoglobin A1c is 8.8 patient is diabetic -Hypertension -Coronary artery disease and peripheral vascular disease -Continued nicotine use: Counseling was provided
--- NOTE | 2019-11-03 15:32 | US ---
EXAMINATION TYPE: US carotid duplex BILAT DATE OF EXAM: 11/03/2019 COMPARISON: NONE CLINICAL HISTORY: PREOP OPEN HEART. Pre Op heart surgery. EXAM MEASUREMENTS: RIGHT: Peak Systolic Velocity (PSV) cm/sec ----- Right CCA: 55.1 ----- Right ICA: 119.1 ----- Right ECA: 299.2 ICA/CCA ratio: 2.2 RIGHT: End Diastole cm/sec ----- Right CCA: 11.5 ----- Right ICA: 26.0 ----- Right ECA: 0 LEFT: Peak Systolic Velocity (PSV) cm/sec ----- Left CCA: 100.8 ----- Left ICA: 122.4 ----- Left ECA: 56.4 ICA/CCA ratio: 1.2 LEFT: End Diastole cm/sec ----- Left CCA: 11.5 ----- Left ICA: 24.8 ----- Left ECA: 0 VERTEBRALS (direction of flow): Right Vertebral: Antegrade Left Vertebral: Antegrade Rhythm: Normal Bilateral plaque visualized. No significant stenosis seen IMPRESSION: 1. Bilateral plaque with findings compatible with a 50-69% stenosis of the proximal right ICA by [place] Doppler ultrasound. Criteria for Assigning % of Stenosis / Diameter reduction (Estimation based on the indirect measurements of the internal carotid artery velocities (ICA PSV). 1. Normal (no stenosis)=ICA PSV < 125 cm/s: ratio < 2.0: ICA EDV<40 cm/s. 2. Less than 50% stenosis=ICA PSV < 125 cm/s: ratio < 2.0: ICA EDV<40 cm/s. 3. 50 to 69% stenosis=ICA PSV of 125 to 230 cm/s: ration 2.0 ? 4.0: ICA EDV 40-100 cm/s. 4. Greater than 70% stenosis to near occlusion= ICA PSV > 230 cm/s: ratio > 4.0: ICA EDV > 100 cm/s. 5. Near occlusion= ICA PSV velocities may be low or undetectable: variable ratio and ICA EDV. 6. Total occlusion=unable to detect flow.
--- NOTE | 2019-11-03 16:02 | P.PN ---
Subjective Progress Note Date: 11/03/19 This is a 64-year-old gentleman who used to follow regularly with Dr. cristian avery in the office. He has a known history of coronary artery disease with multiple stent placements in the past, hypertension, hyperlipidemia, nicotine dependence, diabetes, PAD and PVD with prior peripheral stenting. Patient also has a history of marijuana use. He presents to the hospital on this occasion with symptoms of chest pain that the patient states woke him from sleep around 4 AM Friday morning. Patient had something to eat and following that the symptoms worsened. He came to the hospital for further evaluation and treatment. His EKG on presentation here showed a normal sinus rhythm with mild depression in the inferior leads. Blood pressure 178/80 with a heart rate in the 60s, temperature 97.5, 98% on room air. White blood cell count 9.8, hemoglobin 14.3, platelet count 285. Sodium 138, potassium 4.4, BUN 15, creatinine 0.8. Troponin 0.02, 0.95, 1.2. Cholesterol 174, triglycerides 227, LDL 102, HDL 27. At the time of my examination this morning, patient is currently chest pain- free. According to the patient, he refuses to take any meds unless they are natural or grown from the earth. He does agree at this time to take aspirin and Plavix. Patient was seen in consultation by Dr. Rubio and advised to undergo cardiac catheterization, the risks and the benefits were explained to the patient in detail and he is willing to proceed. 11/03/2019 Patient underwent a cardiac catheterization yesterday, it revealed severe triple-vessel disease with critical lesion in the right coronary artery and also circumflex artery. Moderate to severe disease involving the LAD. 2 diagonal branches have ostial stenosis. We made a request for cardiothoracic surgery to see the patient in consultation which was done today. Patient and his were in the room at the time we made rounds, Dr. wily Srivastava had a lengthy discussion regarding the importance of taking all medications as prescribed and the importance of nicotine cessation. The patient has agreed to comply with both. Blood pressure 148/70 with a heart rate in the 50s, 98% on room air. White blood cell count 8.5, hemoglobin 13.3, platelet count 236. Sodium 136, potassium 4.3, BUN 15, creatinine 0.7. Objective - Vital Signs Vital signs: Vital Signs Temp 98.7 F 11/03/19 12:50 Pulse 51 L 11/03/19 12:50 Resp 18 11/03/19 12:50 BP 149/77 11/03/19 12:50 Pulse Ox 98 11/03/19 12:50 Intake & Output 11/02/19 11/03/19 11/03/19 18:59 06:59 18:59 Intake Total 305.002 52.474 575.735 Output Total 750 320 300 Balance -444.998 -267.526 275.735 Weight 75.1 kg Intake: IV 175 Intake, IV Titration 130.002 52.474 95.735 Amount Heparin Sod,Pork in 0.45% 130.002 52.474 95.735 NaCl 25,000 unit In 0.45 % NaCl 1 250ml.bag @ 12 UNITS/KG/HR 9.084 mls/hr IV .Q24H [facility] Rx#: [id number] Oral 480 Output: Urine 750 320 300 Other: Voiding Method Toilet Toilet Toilet Urinal Urinal Urinal # Voids 1 1 # Bowel Movements 1 - Labs CBC & Chem 7: 11/03/19 10:31 11/03/19 10:31 Labs: Abnormal Lab Results - Last 24 Hours (Table) 11/02/19 11/02/19 11/03/19 Range/Units 16:35 20:28 06:04 RBC (4.30-5.90) m/uL APTT (22.0-30.0) sec Sodium (137-145) mmol/L Chloride (98-107) mmol/L Carbon Dioxide (22-30) mmol/L Glucose (74-99) mg/dL POC Glucose (mg/dL) 154 H 176 H 140 H (75-99) mg/dL Total Protein (6.3-8.2) g/dL Albumin (3.5-5.0) g/dL 11/03/19 11/03/19 11/03/19 Range/Units 07:28 10:31 10:31 RBC 4.09 L (4.30-5.90) m/uL APTT (22.0-30.0) sec Sodium 136 L (137-145) mmol/L Chloride 111 H 110 H (98-107) mmol/L Carbon Dioxide 17 L (22-30) mmol/L Glucose 135 H 277 H (74-99) mg/dL POC Glucose (mg/dL) (75-99) mg/dL Total Protein 6.2 L (6.3-8.2) g/dL Albumin 3.4 L (3.5-5.0) g/dL 11/03/19 11/03/19 Range/Units 10:31 12:00 RBC (4.30-5.90) m/uL APTT 44.7 H (22.0-30.0) sec Sodium (137-145) mmol/L Chloride (98-107) mmol/L Carbon Dioxide (22-30) mmol/L Glucose (74-99) mg/dL POC Glucose (mg/dL) 198 H (75-99) mg/dL Total Protein (6.3-8.2) g/dL Albumin (3.5-5.0) g/dL
[2019-11-03 16:13] LABS: T4, Free (Free Thyroxine) 1.61 ng/dL (0.78-2.19)
[2019-11-03 17:13] LABS: Glucose,Whole Blood 195 mg/dL (75-99)
[2019-11-03 18:58] LABS: Appearance,Urine Clear (Clear); Bilirubin,Urine Negative (Negative); Blood,Urine Negative (Negative); Color,Urine Yellow; Glucose,Urine (UA) Negative (Negative); Ketones,Urine Negative (Negative); Leukocyte Esterase,Urine Negative (Negative); Nitrite,Urine Negative (Negative); PH, Urine 5.5 (5.0-8.0); Protein,Urine Negative (Negative); Specific Gravity,Urine 1.023 (1.001-1.035); Urobilinogen,Urine <2.0 mg/dL (<2.0)
[2019-11-03 19:59] LABS: Hepatitis A Antibody IgM Non-Reactive (Non-Reactive); Hepatitis B Core IgM Non-Reactive (Non-Reactive); Hepatitis B Surface Antigen Non-Reactive (Non-Reactive); Hepatitis C IgG Antibody Non-Reactive (Non-Reactive)
[2019-11-03 20:14] LABS: Hemoglobin A1C 9.1 % (4.0-6.0)
[2019-11-03 20:16] LABS: Glucose,Whole Blood 236 mg/dL (75-99)
[2019-11-04 06:13] LABS: Glucose,Whole Blood 132 mg/dL (75-99)
[2019-11-04] MEDS: INSULIN ASPART (NovoLOG) 100 UNIT/ML VIAL SQ SCH ×2 (06:35→12:23)
[2019-11-04 07:06] LABS: HCT 37.7 % (39.0-53.0); HGB 12.6 gm/dL (13.0-17.5); MCH 31.5 pg (25.0-35.0); MCHC 33.5 g/dL (31.0-37.0); MCV 94.1 fL (80.0-100.0); Mean Platelet Volume 7.9; Platelet Count 217 k/uL (150-450); RDW 12.8 % (11.5-15.5); WBC 9.1 k/uL (3.8-10.6)
[2019-11-04] MEDS: MUPIROCIN 2% OINT 22 GM TUBE NASAL SCH ×2 (07:28→09:11)
[2019-11-04 07:34] LABS: African American GFR (CKD) >90 (>60 ml/min/1.73 sqM); Anion Gap 7 mmol/L; Blood Urea Nitrogen 14 mg/dL (9-20); Calcium 8.9 mg/dL (8.4-10.2); Carbon Dioxide 22 mmol/L (22-30); Chloride 110 mmol/L (98-107); Glucose 136 mg/dL (74-99); Non-African American GFR(CKD) >90 (>60 ml/min/1.73 sqM); Potassium 3.9 mmol/L (3.5-5.1); Sodium 139 mmol/L (137-145)
--- NOTE | 2019-11-04 08:39 | P.PN ---
Subjective Progress Note Date: 11/04/19 Principal diagnosis: Acute non-STEMI, elevated troponins on admission as high as 1.220, symptomatic multivessel coronary artery disease, history of hypertension, history of hyperli pidemia, chronic ongoing tobacco dependence smokes half a pack of self rolled cigarettes per day, history coronary artery disease status post stent placement to his circumflex and OM coronary arteries in 2008, history of peripheral vascular disease with previous stent placement to his left common iliac artery, poorly controlled diabetes mellitus type 2, admission hemoglobin A1c 8.8%, history of bladder cancer status post radiation, chemotherapy treatment and bladder surgery, history of kidney stones, gistory of psoriasis, family history of early onset coronary artery disease with his dad passing away at age 49 from myocardial infarction, occasional marijuana use, history of right carotid bruit, history of noncompliance with prescribed medical care, mild COPD, preoperative FEV1 60% of predicted value Patient awake and lying in bed. He denies any pain but would like to go home. He states he would like to go see his and is not sleeping well and is feeling tense and feels like he can relax at home and come in the morning of his surgery on 11/08/2019. Objective - Vital Signs Vital signs: Vital Signs Temp 98.0 F 11/03/19 20:00 Pulse 76 11/04/19 04:00 Resp 16 11/04/19 04:00 BP 164/81 11/04/19 04:00 Pulse Ox 97 11/04/19 04:00 Intake & Output 11/03/19 11/04/19 11/04/19 18:59 06:59 18:59 Intake Total 815.735 99.091 Output Total 575 725 Balance 240.735 -625.909 Weight 76.5 kg Intake: Intake, IV Titration 95.735 99.091 Amount Heparin Sod,Pork in 0.45% 95.735 99.091 NaCl 25,000 unit In 0.45 % NaCl 1 250ml.bag @ 12 UNITS/KG/HR 9.084 mls/hr IV .Q24H [facility] Rx#: [id number] Oral 720 Output: Urine 575 725 Other: Voiding Method Toilet Toilet Urinal Urinal - Constitutional General appearance: Present: average body habitus, cooperative, no acute distress - Respiratory Details: Lung sounds essentially clear throughout. No wheezes, no rhonchi, no crackles. Respirations are symmetrical and nonlabored. Oxygen saturation are 97% on room air. - Cardiovascular Details: Regular rhythm and rate. S1 and S2 present, negative for S3, gallop or murmur. No edema present. Remote telemetry showing normal sinus rhythm with ST depression in lead 2 with rate in the 60s-80s BPM. Occasional heart rate in the 40s. - Gastrointestinal Gastrointestinal Comment(s): Abdomen is soft, nontender and nondistended. Active bowel sounds to all 4 abdominal quadrants. No guarding or rigidity. No organomegaly appreciated. - Integumentary Integumentary Comment(s): no rash, no growths, no abnormal pigmentation. Psoriasis on bilateral elbows. - Neurologic Neurologic: Present: CNII-XII intact - Musculoskeletal Musculoskeletal: Present: gait normal, strength equal bilaterally - Psychiatric Psychiatric: Present: A&O x's 3, appropriate affect, intact judgment & insight - Labs CBC & Chem 7: 11/04/19 05:56 11/04/19 05:56 Labs: Abnormal Lab Results - Last 24 Hours (Table) 11/03/19 11/03/19 11/03/19 Range/Units 10:31 10:31 10:31 RBC 4.09 L (4.30-5.90) m/uL Hgb (13.0-17.5) gm/dL Hct (39.0-53.0) % APTT 44.7 H (22.0-30.0) sec Sodium 136 L (137-145) mmol/L Chloride 110 H (98-107) mmol/L Carbon Dioxide 17 L (22-30) mmol/L Glucose 277 H (74-99) mg/dL POC Glucose (mg/dL) (75-99) mg/dL Hemoglobin A1c (4.0-6.0) % Total Protein 6.2 L (6.3-8.2) g/dL Albumin 3.4 L (3.5-5.0) g/dL 11/03/19 11/03/19 11/03/19 Range/Units 12:00 12:43 17:10 RBC (4.30-5.90) m/uL Hgb (13.0-17.5) gm/dL Hct (39.0-53.0) % APTT (22.0-30.0) sec Sodium (137-145) mmol/L Chloride (98-107) mmol/L Carbon Dioxide (22-30) mmol/L Glucose (74-99) mg/dL POC Glucose (mg/dL) 198 H 195 H (75-99) mg/dL Hemoglobin A1c 9.1 H (4.0-6.0) % Total Protein (6.3-8.2) g/dL Albumin (3.5-5.0) g/dL 11/03/19 11/04/19 11/04/19 Range/Units 20:14 05:56 05:56 RBC 4.00 L (4.30-5.90) m/uL Hgb 12.6 L (13.0-17.5) gm/dL Hct 37.7 L (39.0-53.0) % APTT 45.3 H (22.0-30.0) sec Sodium (137-145) mmol/L Chloride (98-107) mmol/L Carbon Dioxide (22-30) mmol/L Glucose (74-99) mg/dL POC Glucose (mg/dL) 236 H (75-99) mg/dL Hemoglobin A1c (4.0-6.0) % Total Protein (6.3-8.2) g/dL Albumin (3.5-5.0) g/dL 11/04/19 11/04/19 Range/Units 05:56 06:11 RBC (4.30-5.90) m/uL Hgb (13.0-17.5) gm/dL Hct (39.0-53.0) % APTT (22.0-30.0) sec Sodium (137-145) mmol/L Chloride 110 H (98-107) mmol/L Carbon Dioxide (22-30) mmol/L Glucose 136 H (74-99) mg/dL POC Glucose (mg/dL) 132 H (75-99) mg/dL Hemoglobin A1c (4.0-6.0) % Total Protein (6.3-8.2) g/dL Albumin (3.5-5.0) g/dL Microbiology - Last 24 Hours (Table) 11/03/19 09:30 Nasal Screen MRSA/MSSA - Preliminary Nasal Swab Assessment and Plan Assessment: 1. Acute non-STEMI, elevated troponins on admission as high as 1.220 2. Symptomatic multivessel coronary artery disease 3. History of hypertension 4. History of hyperlipidemia 5. Chronic ongoing tobacco dependence smokes half a pack of self rolled cigarettes per day 6. History coronary artery disease status post stent placement to his circumflex and OM coronary arteries in 2008 7. History of peripheral vascular disease with previous stent placement to his left common iliac artery 8. Poorly controlled diabetes mellitus type 2, admission hemoglobin A1c 8.8% 9. History of bladder cancer status post radiation, chemotherapy treatment and bladder surgery 10. History of kidney stones 11. History of psoriasis 12. Family history of early onset coronary artery disease with his dad passing away at age 49 from myocardial infarction 13. Occasional marijuana use 14. History of right carotid bruit 15. History of noncompliance with prescribed medical care 16. Mild COPD, preoperative FEV1 60% of predicted value Plan: 1. Continue medical therapy with ASA, Statin, BB 2. Encourage incentive spirometry 10x while awake 3. Increase activity, ambulate as tolerated, OOB with meals. 4. Patient was seen and examined with Dr. Hewitt, plan for off-pump CABG with MAILE and PAULETTE on Friday11/08/[address] Hewitt 5. Patient may be discharged to home from our standpoint and return friday for surgery if okay with cardiology. 6. STS risk score was calculated and discussed with the patient. 7. Management of other comorbidities per primary care and cardiology 8. Smoking cessation strongly encouraged 9. Medication compliance strongly encouraged. 10. More recommendations to follow. Time with Patient: Greater than 30
[2019-11-04] MEDS: ATORVASTATIN 80 MG TAB PO SCH (08:59)
[2019-11-04] MEDS ORDERED: MUPIROCIN 2% OINT 22 GM TUBE TOPICAL SCH (09:00)
[2019-11-04] MEDS: ISOSORBIDE MONONITRATE ER 30 MG TAB.ER.24H PO SCH (09:00)
[2019-11-04] MEDS ORDERED: ASPIRIN 81 MG PO SCH (09:00)
[2019-11-04] MEDS: METOPROLOL TARTRATE 25 MG TAB PO SCH (09:00)
[2019-11-04 12:03] LABS: Glucose,Whole Blood 162 mg/dL (75-99)
[2019-11-04] MEDS ORDERED: LOSARTAN 25 MG TAB PO SCH (12:45)
--- NOTE | 2019-11-04 13:23 | P.PN ---
Subjective Progress Note Date: 11/04/19 This is a 64-year-old gentleman who used to follow regularly with Dr. cristian avery in the office. He has a known history of coronary artery disease with multiple stent placements in the past, hypertension, hyperlipidemia, nicotine dependence, diabetes, PAD and PVD with prior peripheral stenting. Patient also has a history of marijuana use. He presents to the hospital on this occasion with symptoms of chest pain that the patient states woke him from sleep around 4 AM Friday morning. Patient had something to eat and following that the symptoms worsened. He came to the hospital for further evaluation and treatment. His EKG on presentation here showed a normal sinus rhythm with mild depression in the inferior leads. Blood pressure 178/80 with a heart rate in the 60s, temperature 97.5, 98% on room air. White blood cell count 9.8, hemoglobin 14.3, platelet count 285. Sodium 138, potassium 4.4, BUN 15, creatinine 0.8. Troponin 0.02, 0.95, 1.2. Cholesterol 174, triglycerides 227, LDL 102, HDL 27. At the time of my examination this morning, patient is currently chest pain- free. According to the patient, he refuses to take any meds unless they are natural or grown from the earth. He does agree at this time to take aspirin and Plavix. Patient was seen in consultation by Dr. Rubio and advised to undergo cardiac catheterization, the risks and the benefits were explained to the patient in detail and he is willing to proceed. 11/03/2019 Patient underwent a cardiac catheterization yesterday, it revealed severe triple-vessel disease with critical lesion in the right coronary artery and also circumflex artery. Moderate to severe disease involving the LAD. 2 diagonal branches have ostial stenosis. We made a request for cardiothoracic surgery to see the patient in consultation which was done today. Patient and his were in the room at the time we made rounds, Dr. wily Srivastava had a lengthy discussion regarding the importance of taking all medications as prescribed and the importance of nicotine cessation. The patient has agreed to comply with both. Blood pressure 148/70 with a heart rate in the 50s, 98% on room air. White blood cell count 8.5, hemoglobin 13.3, platelet count 236. Sodium 136, potassium 4.3, BUN 15, creatinine 0.7. 11/04/2019 Patient seen and examined this morning, hemodynamically stable. Denies any chest discomfort. Plan is for him to be discharged home today. Bypass surgery scheduled for Friday. We will add Cozaar to his medication regime. Objective - Vital Signs Vital signs: Vital Signs Temp 97.7 F 11/04/19 12:00 Pulse 61 11/04/19 12:00 Resp 16 11/04/19 12:00 BP 161/91 11/04/19 12:00 Pulse Ox 98 11/04/19 12:00 Intake & Output 11/03/19 11/04/19 11/04/19 18:59 06:59 18:59 Intake Total 815.735 99.091 Output Total 575 725 950 Balance 240.735 -625.909 -950 Weight 76.5 kg 76.5 kg Intake: Intake, IV Titration 95.735 99.091 Amount Heparin Sod,Pork in 0.45% 95.735 99.091 NaCl 25,000 unit In 0.45 % NaCl 1 250ml.bag @ 12 UNITS/KG/HR 9.084 mls/hr IV .Q24H [facility] Rx#: [id number] Oral 720 Output: Urine 575 725 950 Other: Voiding Method Toilet Toilet Urinal Urinal - Exam PHYSICAL EXAMINATION: GENERAL: 64-year-old gentleman in no acute distress at the time of my examination HEENT: Head is atraumatic, normocephalic. Pupils equal, round. Sclera anicteric. Conjunctiva are clear. Mucous membranes of the mouth are moist. Neck is supple. There is no elevated jugular venous pressure. No carotid bruit is heard. HEART EXAMINATION: Heart S1, S2 normal. No murmur or gallop heard. CHEST EXAMINATION: Lungs are clear to auscultation and precussion. No chest wall tenderness is noted on palpation or with deep breathing. ABDOMEN: Soft, nontender. Bowel sounds are heard. No organomegaly noted. EXTREMITIES: 2+ peripheral pulses with no evidence of peripheral edema and no calf tenderness noted. Right radial site clean and dry, good distal pulse. NEUROLOGIC patient is awake, alert and oriented 3 . - Labs CBC & Chem 7: 11/04/19 05:56 11/04/19 05:56 Labs: Abnormal Lab Results - Last 24 Hours (Table) 11/03/19 11/03/19 11/03/19 Range/Units 10:31 10:31 10:31 RBC 4.09 L (4.30-5.90) m/uL Hgb (13.0-17.5) gm/dL Hct (39.0-53.0) % APTT 44.7 H (22.0-30.0) sec Sodium 136 L (137-145) mmol/L Chloride 110 H (98-107) mmol/L Carbon Dioxide 17 L (22-30) mmol/L Glucose 277 H (74-99) mg/dL POC Glucose (mg/dL) (75-99) mg/dL Hemoglobin A1c (4.0-6.0) % Total Protein 6.2 L (6.3-8.2) g/dL Albumin 3.4 L (3.5-5.0) g/dL 11/03/19 11/03/19 11/03/19 Range/Units 12:43 17:10 20:14 RBC (4.30-5.90) m/uL Hgb (13.0-17.5) gm/dL Hct (39.0-53.0) % APTT (22.0-30.0) sec Sodium (137-145) mmol/L Chloride (98-107) mmol/L Carbon Dioxide (22-30) mmol/L Glucose (74-99) mg/dL POC Glucose (mg/dL) 195 H 236 H (75-99) mg/dL Hemoglobin A1c 9.1 H (4.0-6.0) % Total Protein (6.3-8.2) g/dL Albumin (3.5-5.0) g/dL 11/04/19 11/04/19 11/04/19 Range/Units 05:56 05:56 05:56 RBC 4.00 L (4.30-5.90) m/uL Hgb 12.6 L (13.0-17.5) gm/dL Hct 37.7 L (39.0-53.0) % APTT 45.3 H (22.0-30.0) sec Sodium (137-145) mmol/L Chloride 110 H (98-107) mmol/L Carbon Dioxide (22-30) mmol/L Glucose 136 H (74-99) mg/dL POC Glucose (mg/dL) (75-99) mg/dL Hemoglobin A1c (4.0-6.0) % Total Protein (6.3-8.2) g/dL Albumin (3.5-5.0) g/dL 11/04/19 11/04/19 Range/Units 06:11 12:02 RBC (4.30-5.90) m/uL Hgb (13.0-17.5) gm/dL Hct (39.0-53.0) % APTT (22.0-30.0) sec Sodium (137-145) mmol/L Chloride (98-107) mmol/L Carbon Dioxide (22-30) mmol/L Glucose (74-99) mg/dL POC Glucose (mg/dL) 132 H 162 H (75-99) mg/dL Hemoglobin A1c (4.0-6.0) % Total Protein (6.3-8.2) g/dL Albumin (3.5-5.0) g/dL Microbiology - Last 24 Hours (Table) 11/03/19 09:30 Nasal Screen MRSA/MSSA - Preliminary Nasal Swab Assessment and Plan Plan: Assessment and plan #1 non-ST elevation FL #2 known history of coronary artery disease with prior stenting #3 hypertension #4 hyperlipidemia #5 nicotine dependence #6 PAD and PVD with prior intervention #7 diabetes #8 history of marijuana use #9 noncompliance with medication Plan Cardiac catheterization revealed multivessel coronary artery disease. Patient will be scheduled for coronary artery bypass grafting surgery on Friday. We will add Cozaar to his medication regime. He may be able to be discharged home today. DNP note has been reviewed, I agree with a documented findings and plan of care. Patient was seen and examined.
--- NOTE | 2019-11-04 16:45 | P.DS ---
Providers Date of admission: 11/02/19 14:00 Attending physician: Zara Crenshaw Consults: 11/01/19 17:02 Consult Physician Urgent Consulting Provider: Radha Alvarez Consult Reason/Comments: chest pain, serial tropnins Do you want consulting provider notified?: Yes 11/03/19 06:52 Consult Physician Urgent Consulting Provider: Sunday Hewitt Consult Reason/Comments: triple vessel disease Do you want consulting provider notified?: Yes 11/03/19 08:53 Consult Physician Routine Consulting Provider: Angelito Ragsdale Consult Reason/Comments: preop cabg Do you want consulting provider notified?: Yes Consult to Anesthesia Routine Consulting Provider: Anesthesia,Services Consult Reason/Comments: Cardiac Surgery Pre-Op Primary care physician: Leonila Partida [facility] Course: Patient with history of severe peripheral vascular disease and coronary artery disease in the past and stents to coronary vasculature as well as peripheral vessels admitted with non-ST elevation microinfarction patient stopped taking all his medications patient is diabetic as as well with hemoglobin A1c of 8.8 had a did extensive counseling regarding compliance with medications patient can use to smoke extensive counseling regarding this was provided as well. 11/03/2019 Patient is found to have severe triple vessel disease with a critical lesion in RCA circumflex and moderately severe disease involving LAD. Patient will be a valid by car to thoracic surgery for coronary artery bypass grafting 11/04/2019 Patient will undergo CABG on Friday patient is being discharged today PHYSICAL EXAMINATION: GENERAL: The patient is alert and oriented x3, not in any acute distress. Well developed, well nourished. HEENT: Pupils are round and equally reacting to light. EOMI. No scleral icterus. No conjunctival pallor. Normocephalic, atraumatic. No pharyngeal erythema. No thyromegaly. CARDIOVASCULAR: S1 and S2 present. No murmurs, rubs, or gallops. PULMONARY: Chest is clear to auscultation, no wheezing or crackles. ABDOMEN: Soft, nontender, nondistended, normoactive bowel sounds. No palpable organomegaly. MUSCULOSKELETAL: No joint swelling or deformity. EXTREMITIES: No cyanosis, clubbing, or pedal edema. NEUROLOGICAL: Gross neurological examination did not reveal any focal deficits. SKIN: No rashes. Assessment and Plan Plan: -Acute non-ST elevation myocardial infarction: Patient has triple-vessel disease and will undergo coronary artery bypass grafting on Friday -Type 2 diabetes mellitus: Patient is being discharged on metformin peripheral vascular disease and stents to lower limbs. -Type 2 diabetes mellitus new diagnosis -Hypertension -Coronary artery disease and peripheral vascular disease -Continued nicotine use: Counseling was provided Patient Condition at Discharge: Stable Plan - Discharge Summary Discharge Rx Participant: No New Discharge Prescriptions: New Aspirin 81 mg PO DAILY #30 chew metFORMIN HCL ER [Glucophage Xr] 500 mg PO BID #60 tab Isosorbide Mononitrate ER [Imdur] 30 mg PO DAILY #30 tab.er.24h Atorvastatin [Lipitor] 80 mg PO DAILY #30 tab Metoprolol Tartrate [Lopressor] 25 mg PO BID #60 tab Nitroglycerin Sl Tabs [Nitrostat] 0.4 mg SUBLINGUAL Q5M PRN #30 tab PRN Reason: Chest Pain Losartan [Cozaar] 25 mg PO DAILY #30 tab Continue Turmeric (Unknown Strength) 1 tab PO DAILY Vitamin K (Unknown Strength) 1 tab PO DAILY Vitamin D3 (Unknown Strength) 1 tab PO DAILY Multivitamins, Thera [Multivitamin (formulary)] 1 tab PO DAILY Unknown Vitamin For Prostate 1 tab PO DAILY Discharge Medication List Multivitamins, Thera [Multivitamin (formulary)] 1 tab PO DAILY 11/01/19 [History] Turmeric (Unknown Strength) 1 tab PO DAILY 11/01/19 [History] Unknown Vitamin For Prostate 1 tab PO DAILY 11/01/19 [History] Vitamin D3 (Unknown Strength) 1 tab PO DAILY 11/01/19 [History] Vitamin K (Unknown Strength) 1 tab PO DAILY 11/01/19 [History] Aspirin 81 mg PO DAILY #30 chew 11/04/19 [Rx] Atorvastatin [Lipitor] 80 mg PO DAILY #30 tab 11/04/19 [Rx] Isosorbide Mononitrate ER [Imdur] 30 mg PO DAILY #30 tab.er.24h 11/04/19 [Rx] Losartan [Cozaar] 25 mg PO DAILY #30 tab 11/04/19 [Rx] Metoprolol Tartrate [Lopressor] 25 mg PO BID #60 tab 11/04/19 [Rx] Nitroglycerin Sl Tabs [Nitrostat] 0.4 mg SUBLINGUAL Q5M PRN #30 tab 11/04/19 [Rx] metFORMIN HCL ER [Glucophage Xr] 500 mg PO BID #60 tab 11/04/19 [Rx] Follow up Appointment(s)/Referral(s): Helga Keen MD [Primary Care Provider] - 11/04/19 2:00 pm Patient Instructions/Handouts: *Surgery [facility] - After Heart Catheterization - [employer] Instructions, How to Stop Smoking (DC), Type 2 Diabetes in Adults: New Diagnosis (DC) Discharge Disposition: HOME SELF-CARE
[2019-11-04] MEDS ORDERED: MUPIROCIN 2% OINT 22 GM TUBE NASAL SCH (21:00)
[2019-11-05 08:08] VITALS: BP 161/91; PULSE 61; TEMP 97.7
[2019-11-05 10:06] VITALS: BMI 22.8
== END 2019-11-04 13:36 | disposition home or self-care (01) | DRG 282 ==
LOC: EC 14:03 → 1SOBS 17:21 → 3SCARD 19:39 → OBSVTOIN 11-02 14:00
PROVIDERS: ADMIT Internal Medicine; ATTEND Internal Medicine
PROC: B2111ZZ Fluoroscopy of Multiple Coronary Arteries using Low Osmolar Contrast (ICD-10-PCS; principal; 2019-11-02 13:10)
PROC: 4A023N7 Measurement of Cardiac Sampling and Pressure, Left Heart, Percutaneous Approach (ICD-10-PCS; principal; 2019-11-02 13:10)
DX: I21.4 Non-ST elevation (NSTEMI) myocardial infarction (principal); I25.10 Atherosclerotic heart disease of native coronary artery without angina pectoris; F40.240 Claustrophobia; I10 Essential (primary) hypertension; E11.51 Type 2 diabetes mellitus with diabetic peripheral angiopathy without gangrene; E11.65 Type 2 diabetes mellitus with hyperglycemia; E78.5 Hyperlipidemia, unspecified; Z71.6 Tobacco abuse counseling; F17.210 Nicotine dependence, cigarettes, uncomplicated; F32.9 Major depressive disorder, single episode, unspecified; J44.9 Chronic obstructive pulmonary disease, unspecified; Z82.49 Family history of ischemic heart disease and other diseases of the circulatory system; Z83.3 Family history of diabetes mellitus; Z85.51 Personal history of malignant neoplasm of bladder; Z87.442 Personal history of urinary calculi; Z91.14 Patient's other noncompliance with medication regimen; Z91.19 Patient's noncompliance with other medical treatment and regimen; Z92.3 Personal history of irradiation; Z95.5 Presence of coronary angioplasty implant and graft; Z11.59 Encounter for screening for other viral diseases; Z92.21 Personal history of antineoplastic chemotherapy; I08.1 Rheumatic disorders of both mitral and tricuspid valves; K44.9 Diaphragmatic hernia without obstruction or gangrene; L40.9 Psoriasis, unspecified
CPT/HCPCS: 36415; 71046; 80048; 80053; 80061; 80074; 81003; 83036; 83735; 84439; 84443; 84484; 85025; 85027; 85610; 85730; 86850; 86900; 86901; 87070; 93005; 93306; 93454; 93880; 93922; 93970; 94150; 99285

== ENCOUNTER 2019-11-07 05:58 | Inpatient (IN) | payer BC ==
[2019-11-07] MEDS ORDERED: SODIUM CHLORIDE 0.9% 1,000 ML IV STA (06:17)
[2019-11-07] MEDS ORDERED: MORPHINE SULFATE 4 MG/ML SYRINGE IVP STA ×3 (06:19→07:15)
--- NOTE | 2019-11-07 06:27 | ED ---
Chest Pain HPI <Angelito Khan - Last Filed: 11/07/19 08:09> - General Source: patient, EMS Mode of arrival: EMS <Isabel Bernard - Last Filed: 11/07/19 12:27> - General Chief Complaint: Chest Pain Stated Complaint: Chest pain Time Seen by Provider: 11/07/19 06:24 - History of Present Illness Initial Comments: Patient is a 64-year-old male presenting to the emergency department via EMS with complaints of chest pain that started approximately 3 hours prior to arrival. Patient was just admitted to this ER and discharged 3 days ago for chest pain and is set to have an open heart procedure tomorrow morning. Patient states the pain was not allowing him to fall back asleep. He describes it as aching with occasional sharp pains in the middle of his chest, nonradiating. He denies any shortness of breath, nausea, vomiting, abdominal pain. He denies any recent fever or chills. He denies any coughing. He states he did take 3 nitros at home and a full strength aspirin prior to arrival. Patient denies any further complaints at this time. Upon arrival to the ER, patient's blood pressure is 185/109, pulse is 112, respiratory rate of 18, 99% on 2 L, afebrile. (Isabel Bernard) - Related Data Home Medications Medication Instructions Recorded Confirmed Cholecalciferol [Vitamin D3 (25 1,000 unit PO DAILY #0 11/01/19 11/07/19 Mcg = 1000 Iu)] Multivitamins, Thera [Multivitamin 1 tab PO DAILY 11/01/19 11/07/19 (formulary)] Phytonadione (Vit K1) [Vitamin K-1] 100 mcg PO DAILY #0 11/01/19 11/07/19 Turmeric Root Extract [Turmeric] 500 mg PO DAILY #0 11/01/19 11/07/19 Ascorbic Acid [Vitamin C] 500 mg PO DAILY 11/05/19 11/07/19 Cinnamon Bark [Cinnamon] 500 mg PO DAILY 11/05/19 11/07/19 [place]her Supplement 1 tab PO DAILY 11/05/19 11/07/19 Milk Thistle 150 mg PO DAILY 11/05/19 11/07/19 Saw Lejunior 500 mg PO DAILY 11/07/19 11/07/19 Previous Rx's Medication Instructions Recorded Aspirin 81 mg PO DAILY #30 chew 11/04/19 Atorvastatin [Lipitor] 80 mg PO DAILY #30 tab 11/04/19 Isosorbide Mononitrate ER [Imdur] 30 mg PO DAILY #30 tab.er.24h 11/04/19 Metoprolol Tartrate [Lopressor] 25 mg PO BID #60 tab 11/04/19 Nitroglycerin Sl Tabs [Nitrostat] 0.4 mg SUBLINGUAL Q5M PRN #30 tab 11/04/19 metFORMIN HCL ER [Glucophage Xr] 500 mg PO BID #60 tab 11/04/19 Allergies Allergy/AdvReac Type Severity Reaction Status Date / Time ragweed pollen Allergy Unknown Verified 11/07/19 08:45 Review of Systems ROS Other: All systems not noted in ROS Statement are negative. <Angelito Khan - Last Filed: 11/07/19 08:09> ROS Other: All systems not noted in ROS Statement are negative. <Isabel Bernard - Last Filed: 11/07/19 12:27> ROS Statement: Those systems with pertinent positive or pertinent negative responses have been documented in the HPI. EKG Findings - EKG Comments: EKG Findings:: EKG read sinus tach, left atrial enlargement, ST and T-wave abnormalities, no signs of acute ischemia. Ventricular rate 103, appearing over 146, QT 370, similar to previous EKG on 11/01/2019. <Isabel Bernard - Last Filed: 11/07/19 12:27> Past Medical History Past Medical History: Coronary Artery Disease (CAD), Cancer, Chest Pain / Angina, Diabetes Mellitus, Hypertension, Myocardial Infarction ([place]), Skin Disorder Additional Past Medical History / Comment(s): Intermittent BILATERAL CLAUDICATION & NEW OCCURRENCE OF LEFT PLANTAR FASCITIS (DIFFICULT TO WALK). Hx of bladder ca with surgery, psoriases,eczema, hiatal hernia, umbilical hernia, kidney stones 2004. History of Any Multi-Drug Resistant Organisms: None Reported Past Surgical History: Heart Catheterization With Stent Additional Past Surgical History / Comment(s): 10/20/15 last CARDIAC STENT-has had several previous cardiac stents, vasectomy, bladder sx x2 to remove tumors. L femoral artherectomy/STENT TO LT common ILIAC artery, 05/22/16 R femoral/popliteal atherectomy with PTBA/stent, angiograms, aortogram with run off. Past Anesthesia/Blood Transfusion Reactions: No Reported Reaction Additional Past Anesthesia/Blood Transfusion Reaction / Comment(s): CLAUSTROPHOBIC IN LARGE CROWDS Date of Last Stent Placement:: 10/20/15 Past Psychological History: No Psychological Hx Reported Smoking Status: Current every day smoker - Past Family History Father Family Medical History: Myocardial Infarction ([place]) Additional Family Medical History / Comment(s): PT'S DAD WHEN PT WAS AGE 4 he believes from a myocardial infarction. Mother Family Medical History: Diabetes Mellitus, Hyperlipidemia, Hypertension, Vascular Disorder <Isabel Bernard - Last Filed: 11/07/19 12:27> General Exam <Isabel Bernard - Last Filed: 11/07/19 12:27> - General Exam Comments Initial Comments: GENERAL: Patient appears anxious, in no acute distress. HEAD: Atraumatic, normocephalic. EYES: Pupils equal round and reactive to light, extraocular movements intact, sclera anicteric, conjunctiva are normal. ENT: TMs normal, nares patent, oropharynx clear without exudates. Moist mucous membranes. NECK: Normal range of motion, supple without lymphadenopathy or JVD. LUNGS: Breath sounds clear to auscultation bilaterally and equal. No wheezes rales or rhonchi. HEART: Slightly tachycardia rate and rhythm without murmurs, rubs or gallops. ABDOMEN: Soft, nontender, normoactive bowel sounds. No guarding, no rebound. No masses appreciated. : Deferred EXTREMITIES: Normal range of motion, no pitting or edema. No clubbing or cyanosis. NEUROLOGICAL: Cranial nerves II through XII grossly intact. Normal speech, normal gait. PSYCH: Normal mood, normal affect. SKIN: Warm, Dry, normal turgor, no rashes or lesions noted. (Isabel Bernard) Course Vital Signs 11/07/19 11/07/19 11/07/19 05:59 06:04 06:40 Temperature 97.9 F Pulse Rate 112 H 135 H Pulse Rate [ 101 H Senior Group Manager ] Respiratory 18 20 Rate Blood Pressure 185/109 169/100 O2 Sat by Pulse 99 99 Oximetry 11/07/19 11/07/19 11/07/19 06:42 06:46 07:35 Temperature Pulse Rate 132 H 122 H 97 Pulse Rate [ Senior Group Manager ] Respiratory 24 24 18 Rate Blood Pressure 191/125 135/91 O2 Sat by Pulse 97 99 99 Oximetry 11/07/19 11/07/19 11/07/19 07:40 07:44 07:52 Temperature Pulse Rate 80 95 92 Pulse Rate [ Senior Group Manager ] Respiratory 18 18 18 Rate Blood Pressure 81/59 100/81 176/96 O2 Sat by Pulse 100 100 100 Oximetry 11/07/19 11/07/19 11/07/19 07:58 08:03 08:15 Temperature Pulse Rate 94 100 118 H Pulse Rate [ Senior Group Manager ] Respiratory 16 18 18 Rate Blood Pressure 175/103 196/118 203/132 O2 Sat by Pulse 100 100 100 Oximetry 11/07/19 11/07/19 11/07/19 08:39 08:49 08:56 Temperature Pulse Rate 105 H 99 96 Pulse Rate [ Senior Group Manager ] Respiratory 16 16 16 Rate Blood Pressure 171/104 155/93 153/92 O2 Sat by Pulse 96 95 95 Oximetry 11/07/19 11/07/19 11/07/19 09:02 09:06 09:37 Temperature Pulse Rate 96 94 90 Pulse Rate [ Senior Group Manager ] Respiratory 181 H 16 16 Rate Blood Pressure 155/92 160/93 143/88 O2 Sat by Pulse 95 95 95 Oximetry Chest Pain MDM <Angelito Khan Jose - Last Filed: 11/07/19 08:09> - MDM 64-year-old male history of coronary artery disease, peripheral vascular disease scheduled for coronary artery bypass graft tomorrow morning. He presents with an episode of chest pain and dyspnea. He is hypertensive and tachycardic upon arrival. He was discharged on aspirin, and no other antiplatelets or anticoagulants awaiting surgery tomorrow. He developed a substernal chest pain. Initial workup was initiated in the emergency department. I took over the care of this patient at 7 AM at shift change. He was started on nitroglycerin and BiPAP just prior to my arrival. Patient has x-ray confirming CHF and flash pulmonary edema. Workup reveals leukocytosis of uncertain etiology may be reactive, no fever or other infectious symptoms. Patient has a stable hemoglobin. Magnesium is low and is replaced with 1 g of IV magnesium. He has a normal BMP however I suspect this pulmonary edema was acute. His troponin is minimally elevated and at this point down trending from his previous admission. I discussed the case with Asha mendoza for cardiothoracic surgery. I discussed case with Dr. Ragsdale who will admit this patient to the ICU. Case discussed with the admitting physician. Case discussed with Dr. Siobhan mendoza for cardiology, recommending Patient be placed on heparin. (Angelito Khan) Critical Care Time Critical Care Time: Yes Total Critical Care Time: 35 <Angelito Khan - Last Filed: 11/07/19 08:09> Disposition Is patient prescribed a controlled substance at d/c from ED?: No Decision to Admit Reason: Admit from EC Decision Date: 11/07/19 Decision Time: 07:00 <Angelito Khan - Last Filed: 11/07/19 08:09> <Isabel Bernard - Last Filed: 11/07/19 12:27> Clinical Impression: NSTEMI (non-ST elevated myocardial infarction), CHF (congestive heart failure) Disposition: ADMITTED IP TO THIS HOSP Condition: Serious
[2019-11-07 06:32] LABS: Basophils # (A) 0.1 k/uL (0-0.2); Basophils % (A) 1 %; Eosinophils # (A) 0.4 k/uL (0-0.7); Eosinophils % (A) 2 %; HCT 42.8 % (39.0-53.0); HGB 13.8 gm/dL (13.0-17.5); Lymphocytes # (A) 1.6 k/uL (1.0-4.8); Lymphocytes % (A) 8 %; MCH 30.5 pg (25.0-35.0); MCHC 32.3 g/dL (31.0-37.0); MCV 94.5 fL (80.0-100.0); Mean Platelet Volume 8.1; Monocytes % (A) 5 %; Neutrophils # (A) 16.2 k/uL (1.3-7.7); Neutrophils % (A) 82 %; Platelet Count 240 k/uL (150-450); RBC 4.53 m/uL (4.30-5.90); RDW 13.1 % (11.5-15.5); WBC 19.7 k/uL (3.8-10.6)
[2019-11-07] MEDS ORDERED: NITROGLYCERIN SL TABS 0.4 MG TAB SUBLINGUAL STA (06:38)
[2019-11-07 06:39] LABS: ALT 64 U/L (4-49); AST 45 U/L (17-59); African American GFR (CKD) >90 (>60 ml/min/1.73 sqM); Alkaline Phosphatase 91 U/L (38-126); Anion Gap 8 mmol/L; Blood Urea Nitrogen 16 mg/dL (9-20); Calcium 9.4 mg/dL (8.4-10.2); Carbon Dioxide 21 mmol/L (22-30); Chloride 108 mmol/L (98-107); Glucose 268 mg/dL (74-99); Magnesium 1.5 mg/dL (1.6-2.3); Non-African American GFR(CKD) >90 (>60 ml/min/1.73 sqM); Potassium 4.5 mmol/L (3.5-5.1); Sodium 137 mmol/L (137-145); Total Bilirubin 0.6 mg/dL (0.2-1.3); Total Protein 6.9 g/dL (6.3-8.2)
[2019-11-07 06:42] LABS: INR 0.9 (<1.2); Partial Thromboplastin Time 22.6 sec (22.0-30.0); Prothrombin Time 9.7 sec (9.0-12.0)
[2019-11-07] MEDS ORDERED: NITROGLYCERIN-D5W PMX 50 MG in DEXTROSE/WATER 1 250ML.BAG IV ONE (06:57)
[2019-11-07] MEDS ORDERED: FUROSEMIDE 10 MG/ML 4 ML VIAL IV STA (07:08)
--- NOTE | 2019-11-07 07:13 | XR ---
EXAMINATION TYPE: XR chest 1V DATE OF EXAM: 11/07/2019 COMPARISON: Prior chest x-ray 11/01/2019 HISTORY: Chest pain TECHNIQUE: Single frontal view of the chest is obtained. FINDINGS: Interstitium is increased as compared to prior exam. Heart size may be accentuated by tech nique. There is no pneumothorax or pleural effusion. Perihilar vascular indistinctness is noted. IMPRESSION: Correlate for congestive heart failure. Pneumonia not excluded.
[2019-11-07] MEDS ORDERED: MAGNESIUM SULFATE-D5W PMX 1 GM in DEXTROSE/WATER 1 100ML.BAG IVPB ONE (07:15)
[2019-11-07] MEDS ORDERED: MORPHINE SULFATE 4 MG/ML SYRINGE IV PRN (07:36)
[2019-11-07] MEDS ORDERED: NALOXONE 0.4 MG/ML 1 ML VIAL IV PRN (07:36)
[2019-11-07] MEDS ORDERED: HEPARIN SODIUM,PORCINE 5,000 UNIT/ML 1 ML VIAL IV PRN (08:12)
[2019-11-07] MEDS ORDERED: HEPARIN SODIUM,PORCINE 5,000 UNIT/ML 1 ML VIAL IV ONE (08:12)
[2019-11-07] MEDS: METOPROLOL TARTRATE 25 MG TAB PO SCH ×2 (08:28→20:22)
[2019-11-07] MEDS: HEPARIN SOD,PORK IN 0.45% NACL 25,000 UNIT in 0.45% NACL 1 250ML.BAG IV SCH (08:31)
[2019-11-07] MEDS ORDERED: ASPIRIN 325 MG TAB PO SCH (09:00)
[2019-11-07] MEDS ORDERED: ATORVASTATIN 80 MG TAB PO SCH (09:00)
[2019-11-07] MEDS ORDERED: METOPROLOL TARTRATE 25 MG TAB PO SCH (09:00)
--- NOTE | 2019-11-07 09:16 | P.GSCN ---
History of Present Illness Consult date: 11/07/19 Reason for Consult: Coronary artery disease Requesting physician: Angelito Khan History of present illness: This is a 64-year-old gentleman who is followed by Dr. Keen on an outpatient basis. He has a previous medical history of recent non-STEMI, coronary artery disease with previous stent placement to the proximal circumflex and ostial OM1 in 2008, hypertension, hyperlipidemia, right internal carotid artery stenosis 50-69%, peripheral arterial disease with previous arthrectomy and CRUSHER DRY GROUND MICA of the left SFA and atherectomy and CRUSHER DRY GROUND MICA of the left GEOLOGICAL E LOGGER with stenting of the left BRIAN, poorly controlled type 2 diabetes mellitus with hemoglobin A1c 9.1%, bladder cancer status post radiation, chemotherapy, and bladder surgery, current ongoing chronic tobacco abuse, marijuana use, medication noncompliance, and family history of early onset coronary artery disease with father at 49 years old from myocardial infarction. He was admitted to [facility] last week with chest pain and diagnosis of non-STEMI. Heart catheterization was completed at that time demonstrating proximal LAD stenosis 50-60%, mid LAD stenosis 70%, diagonal coronary artery stenosis 70-80%, mid circumflex stenosis 95% as well as proximal and mid RCA stenosis 95%. Transthoracic echocardiogram was also completed demonstrating normal left ventricular systolic function with EF 50-55%, moderate mitral valve regurgitation, and mild tricuspid valve regurgitation. Dr. Hewitt from cardiothoracic surgery was consulted at that time, the patient was recommended to have coronary artery bypass surgery, preoperative testing was completed. The patient was scheduled for surgery tomorrow, 11/08/2019. The patient did not wish to stay inpatient and was discharged home on aspirin, statin, beta gaurav, Imdur with plans to return as an outpatient tomorrow morning for surgery. This morning the patient began to experience severe chest pain which he described as aching with sharp pains in the middle of his chest without radiation. He denied any shortness of breath, nausea, vomiting, abdominal pain, fever, or chills. He states the pain was a 10 out of 10 and he was unable to asleep. He did take a full strength aspirin and 3 sublingual nitro's prior to arrival. Upon presentation to [facility] emergency room the patient was found to be hypertensive and tachycardic. He was afebrile. Chest x-ray demonstrated increased interstitial markings. EKG demonstrated sinus tachycardia with ST abnormalities. White blood cell count 19.7, BUN 16, creatinine 0.76, magnesium 1.5, troponin 0.139 which is down trending, BNP 193. In the emergency room the patient was placed on BiPAP, and given IV Lasix with excellent diuresis, started on IV nitro with fluctuation in his blood pressure, and eventually started on IV heparin. He will be admitted to the intensive care unit with consultation placed cardiology, pulmonology, and Dr. Hewitt from cardiothoracic surgery. Review of Systems Review of systems was completed and was negative except as noted - Cardiovascular Reports as per HPI, Reports chest pain Past Medical History Past Medical History: Coronary Artery Disease (CAD), Cancer, Chest Pain / Angina, Diabetes Mellitus, Hypertension, Myocardial Infarction ([place]), Skin Disorder Additional Past Medical History / Comment(s): Intermittent BILATERAL CLAUDICATION & NEW OCCURRENCE OF LEFT PLANTAR FASCITIS (DIFFICULT TO WALK). Hx of bladder ca with surgery, psoriases,eczema, hiatal hernia, umbilical hernia, kidney stones 2004. History of Any Multi-Drug Resistant Organisms: None Reported Past Surgical History: Heart Catheterization With Stent Additional Past Surgical History / Comment(s): 10/20/15 last CARDIAC STENT-has had several previous cardiac stents, vasectomy, bladder sx x2 to remove tumors. L femoral artherectomy/STENT TO LT common ILIAC artery, 05/22/16 R femoral/popliteal atherectomy with PTBA/stent, angiograms, aortogram with run off. Past Anesthesia/Blood Transfusion Reactions: No Reported Reaction Additional Past Anesthesia/Blood Transfusion Reaction / Comm: CLAUSTROPHOBIC IN LARGE CROWDS Date of Last Stent Placement:: 10/20/15 Past Psychological History: No Psychological Hx Reported Smoking Status: Current every day smoker - Past Family History Father Family Medical History: Myocardial Infarction ([place]) Additional Family Medical History / Comment(s): PT'S DAD WHEN PT WAS AGE 4 he believes from a myocardial infarction. Mother Family Medical History: Diabetes Mellitus, Hyperlipidemia, Hypertension, Vascular Disorder Medications and Allergies Home Medications Medication Instructions Recorded Confirmed Type Cholecalciferol [Vitamin D3 (25 1,000 unit PO DAILY #0 11/01/19 11/05/19 History Mcg = 1000 Iu)] Multivitamins, Thera [Multivitamin 1 tab PO DAILY 11/01/19 11/05/19 History (formulary)] Phytonadione (Vit K1) [Vitamin K-1] 100 mcg PO DAILY #0 11/01/19 11/05/19 Histor y Turmeric Root Extract [Turmeric] 500 mg PO DAILY #0 11/01/19 11/05/19 History Unknown Vitamin For Prostate 1 tab PO DAILY 11/01/19 11/05/19 History Aspirin 81 mg PO DAILY #30 chew 11/04/19 11/05/19 Rx Atorvastatin [Lipitor] 80 mg PO DAILY #30 tab 11/04/19 11/05/19 Rx Isosorbide Mononitrate ER [Imdur] 30 mg PO DAILY #30 tab.er.24h 11/04/19 11/05/19 Rx Metoprolol Tartrate [Lopressor] 25 mg PO BID #60 tab 11/04/19 11/05/19 Rx Nitroglycerin Sl Tabs [Nitrostat] 0.4 mg SUBLINGUAL Q5M PRN #30 tab 11/04/19 11/05/19 Rx metFORMIN HCL ER [Glucophage Xr] 500 mg PO BID #60 tab 11/04/19 11/05/19 Rx Ascorbic Acid [Vitamin C] 500 mg PO DAILY 11/05/19 11/05/19 History Cinnamon Bark [Cinnamon] 500 mg PO DAILY 11/05/19 11/05/19 History [place]her Supplement 1 tab PO DAILY 11/05/19 11/05/19 History Milk Thistle 150 mg PO DAILY 11/05/19 11/05/19 History Allergies Allergy/AdvReac Type Severity Reaction Status Date / Time ragweed pollen Allergy Unknown Verified 11/05/19 09:20 Surgical - Exam Vital Signs Temp Pulse Resp BP Pulse Ox 97.9 F 112 H 18 185/109 99 11/07/19 05:59 11/07/19 05:59 11/07/19 05:59 11/07/19 05:59 11/07/19 05:59 - General well developed, well nourished, no distress, moderate pain, chronically ill - Eyes normal ocular movement - ENT no hearing loss - Neck no masses, no bruits, trachea midline - Respiratory Lungs sounds diminished bilaterally. Respirations even, nonlabored. Currently on 3 L nasal cannula with oxygen saturation 95%. No chest wall deformities. No clubbing or cyanosis present. - Cardiovascular S1, S2 present. Tachycardic but regular rate and rhythm, sinus tach on teleme try. Palpable peripheral pulses bilaterally. No edema present. No calf pain or tenderness noted. - Abdomen Abdomen: soft, non tender, bowel sounds - Genitourinary Deferred - Rectum Deferred - Integumentary no rash, no growths - Neurologic normal coordination, normal sensation - Musculoskeletal normal posture - Psychiatric oriented to time, oriented to person, oriented to place, speech is normal, m derby intact Results - Labs 11/07/19 06:04 11/07/19 06:04 Abnormal Lab Results - Last 24 Hours (Table) 11/07/19 11/07/19 11/07/19 Range/Units 06:04 06:04 06:04 WBC 19.7 H (3.8-10.6) k/uL Neutrophils # 16.2 H (1.3-7.7) k/uL Chloride 108 H (98-107) mmol/L Carbon Dioxide 21 L (22-30) mmol/L Glucose 268 H (74-99) mg/dL Magnesium 1.5 L (1.6-2.3) mg/dL ALT 64 H (4-49) U/L Troponin I 0.139 H* (0.000-0.034) ng/mL Diabetes panel 11/07/19 Range/Units 06:04 Sodium 137 (137-145) mmol/L Potassium 4.5 (3.5-5.1) mmol/L Chloride 108 H (98-107) mmol/L Carbon Dioxide 21 L (22-30) mmol/L BUN 16 (9-20) mg/dL Creatinine 0.76 (0.66-1.25) mg/dL Glucose 268 H (74-99) mg/dL Calcium 9.4 (8.4-10.2) mg/dL AST 45 (17-59) U/L ALT 64 H (4-49) U/L Alkaline Phosphatase 91 (38-126) U/L Total Protein 6.9 (6.3-8.2) g/dL Albumin 4.0 (3.5-5.0) g/dL Calcium panel 11/07/19 Range/Units 06:04 Calcium 9.4 (8.4-10.2) mg/dL Albumin 4.0 (3.5-5.0) g/dL Pituitary panel 11/07/19 Range/Units 06:04 Sodium 137 (137-145) mmol/L Potassium 4.5 (3.5-5.1) mmol/L Chloride 108 H (98-107) mmol/L Carbon Dioxide 21 L (22-30) mmol/L BUN 16 (9-20) mg/dL Creatinine 0.76 (0.66-1.25) mg/dL Glucose 268 H (74-99) mg/dL Calcium 9.4 (8.4-10.2) mg/dL Adrenal panel 11/07/19 Range/Units 06:04 Sodium 137 (137-145) mmol/L Potassium 4.5 (3.5-5.1) mmol/L Chloride 108 H (98-107) mmol/L Carbon Dioxide 21 L (22-30) mmol/L BUN 16 (9-20) mg/dL Creatinine 0.76 (0.66-1.25) mg/dL Glucose 268 H (74-99) mg/dL Calcium 9.4 (8.4-10.2) mg/dL Total Bilirubin 0.6 (0.2-1.3) mg/dL AST 45 (17-59) U/L ALT 64 H (4-49) U/L Alkaline Phosphatase 91 (38-126) U/L Total Protein 6.9 (6.3-8.2) g/dL Albumin 4.0 (3.5-5.0) g/dL - Imaging Chest x-ray: report reviewed, image reviewed EKG: image reviewed Assessment and Plan Assessment: 1. Symptomatic multivessel coronary artery disease, recent non-STEMI, plan for CABG tomorrow 2. Leukocytosis, unknown origin, may be reactive 3. Previous stent placement to the proximal circumflex and ostial OM1 4. History of hypertension 5. History of hyperlipidemia 6. Chronic ongoing tobacco dependence 7. Mild COPD, preoperative FEV1 60% of predicted value 8. Right internal carotid artery stenosis 50-69% 9. History of peripheral arterial disease with previous arthrectomy and CRUSHER DRY GROUND MICA of the left SFA and atherectomy and CRUSHER DRY GROUND MICA of the left GEOLOGICAL E LOGGER with stenting of the left BRIAN 10. Poorly controlled diabetes mellitus type 2, admission hemoglobin A1c 9.1% 11. History of bladder cancer status post radiation, chemotherapy treatment and bladder surgery 12. Occasional marijuana use 13. Medication noncompliance 14. Family history of early onset coronary artery disease Plan: Patient was seen and examined at the bedside. Chart/diagnostics were reviewed. Will discuss with Dr. Hewitt who will see the patient today. The patient currently reports his pain level has decreased, states he has been compliant with his medications while at home, did not quit smoking as discussed. Will obtain sputum and urine culture due to leukocytosis despite no fever or symptomatology. Our plan is for off-pump CABG with MAILE and PAULETTE tomorrow with Dr. Hewitt. Continue medical therapy with aspirin, statin, beta gaurav, IV heparin and IV nitro. Increase activity as tolerated. Encourage incentive spirometry use. Smoking cessation discouraged. Medical management per primary care and cardiology. More recommendations to follow. Thank you for this consult. We look forward to working with you in the care of this patient. Time with Patient: Greater than 30
[2019-11-07] MEDS ORDERED: ASCORBIC ACID 500 MG TAB PO SCH (09:45)
[2019-11-07] MEDS ORDERED: CHOLECALCIFEROL 1,000 UNIT TAB PO SCH (09:45)
[2019-11-07] MEDS ORDERED: MULTIVITAMINS, THERA 1 EACH TAB PO SCH (09:45)
[2019-11-07 10:00] LABS: Glucose,Whole Blood 308 mg/dL (75-99)
[2019-11-07] MEDS ORDERED: MD COMMUNICATION TO PHARMACY 1 EACH MISC PO ONE ×2 (10:54)
[2019-11-07] MEDS: INSULIN ASPART (NovoLOG) 100 UNIT/ML VIAL SQ SCH ×3 (11:41→20:23)
--- NOTE | 2019-11-07 11:45 | P.CNPUL ---
History of Present Illness Consult date: 11/07/19 Requesting physician: Sunday Hewitt Reason for consult: other (Ventilator/critical care management) Chief complaint: Chest pain History of present illness: This is a 64-year-old gentleman who follows with Dr. Whitt as his primary care provider. He has a history of coronary artery disease with previous stent placements, hypertension, hyperlipidemia, peripheral vascular disease with previous peripheral stenting, diabetes mellitus, chronic and ongoing tobacco dependence, marijuana use. The patient was recently admitted here for a non-ST segment elevation myocardial infarction. Cardiac catheterization revealed severe triple-vessel disease with critical lesion in the right coronary artery and also the circumflex coronary artery. There is moderate to severe disease involving the proximal LAD with significant lesion in the mid LAD and total occlusion distally. 2 diagonal branches had ostial stenosis as well. He was recommended coronary artery bypass grafting surgery. The patient was scheduled to have this surgery electively on November 07 and was discharged home on 11/04/2019. Early this morning he developed recurrent chest pain and presented to the ER at approximately 6 AM. EKG revealed inferolateral ischemia. . Troponin 0.139. He was initiated on a nitroglycerin drip at 15 mcg/m along with a heparin drip per weight-based protocol and transferred to the intensive care unit where he is seen in consultation. He is currently sitting up in a chair at the bedside. Awake and alert in no acute distress. No recurrent chest pain at this moment. He is maintaining good O2 saturations in the mid 90s on 3 L/m per nasal cannula. He is afebrile. Slightly hypertensive. White count 19.7. Hemoglobin 13.8. INR 0.9. Sodium 137. Potassium 4.5. Bicarb 21. Creatinine 0.76. Glucose 268. ALT T 64. AST 45. Chest x-ray did reveal evidence of pulmonary vascular congestion. He did receive 1 dose of Lasix 40 mg IVP. He is diuresing well and currently in a negative balance. Review of Systems REVIEW OF SYSTEMS: CONSTITUTIONAL: Denies any recent significant weight loss or weight gain. EYES: Denies change in vision. EARS, NOSE, MOUTH, THROAT: Denies headaches, denies sore throat. CARDIOVASCULAR: Positive for chest pain, no palpitations or syncopal episodes. RESPIRATORY: Denies shortness of breath, cough, congestion or hemoptysis. GASTROINTESTINAL: Denies change in appetite, denies abdominal pain GENITOURINARY: Denies hematuria, denies infections. MUSKULOSKELETAL: Denies pain, denies swelling. INTEGUMENTARY: Denies rash, denies eczema. NEUROLOGICAL: Denies recent memory loss, no recent seizure activity. PSYCHIATRIC: Denies anxiety, denies depression. HEMATOLOGIC/LYMPHATIC: Denies anemia, denies enlarged lymph nodes. Past Medical History Past Medical History: Coronary Artery Disease (CAD), Cancer, Chest Pain / Angina, Diabetes Mellitus, Hypertension, Myocardial Infarction ([place]), Skin Disorder Additional Past Medical History / Comment(s): Intermittent BILATERAL CLAUDICATION & NEW OCCURRENCE OF LEFT PLANTAR FASCITIS (DIFFICULT TO WALK). Hx of bladder ca with surgery, psoriases,eczema, hiatal hernia, umbilical hernia, kidney stones 2004. Last Myocardial Infarction Date:: 2015 History of Any Multi-Drug Resistant Organisms: None Reported Past Surgical History: Heart Catheterization With Stent Additional Past Surgical History / Comment(s): 10/20/15 last CARDIAC STENT-has had several previous cardiac stents, vasectomy, bladder sx x2 to remove tumors. L femoral artherectomy/STENT TO LT common ILIAC artery, 05/22/16 R femoral/popliteal atherectomy with PTBA/stent, angiograms, aortogram with run off. Past Anesthesia/Blood Transfusion Reactions: No Reported Reaction Additional Past Anesthesia/Blood Transfusion Reaction / Comment(s): CLAUSTROPHOBIC IN LARGE CROWDS Date of Last Stent Placement:: 10/20/15 Past Psychological History: No Psychological Hx Reported Smoking Status: Current every day smoker - Past Family History Father Family Medical History: Myocardial Infarction ([place]) Additional Family Medical History / Comment(s): PT'S DAD WHEN PT WAS AGE 4 he believes from a myocardial infarction. Mother Family Medical History: Diabetes Mellitus, Hyperlipidemia, Hypertension, Vascular Disorder Medications and Allergies Home Medications Medication Instructions Recorded Confirmed Type Cholecalciferol [Vitamin D3 (25 1,000 unit PO DAILY #0 11/01/19 11/07/19 History Mcg = 1000 Iu)] Multivitamins, Thera [Multivitamin 1 tab PO DAILY 11/01/19 11/07/19 History (formulary)] Phytonadione (Vit K1) [Vitamin K-1] 100 mcg PO DAILY #0 11/01/19 11/07/19 History Turmeric Root Extract [Turmeric] 500 mg PO DAILY #0 11/01/19 11/07/19 History Aspirin 81 mg PO DAILY #30 chew 11/04/19 11/07/19 Rx Atorvastatin [Lipitor] 80 mg PO DAILY #30 tab 11/04/19 11/07/19 Rx Isosorbide Mononitrate ER [Imdur] 30 mg PO DAILY #30 tab.er.24h 11/04/19 11/07/19 Rx Metoprolol Tartrate [Lopressor] 25 mg PO BID #60 tab 11/04/19 11/07/19 Rx Nitroglycerin Sl Tabs [Nitrostat] 0.4 mg SUBLINGUAL Q5M PRN #30 tab 11/04/19 11/07/19 Rx metFORMIN HCL ER [Glucophage Xr] 500 mg PO BID #60 tab 11/04/19 11/07/19 Rx Ascorbic Acid [Vitamin C] 500 mg PO DAILY 11/05/19 11/07/19 History Cinnamon Bark [Cinnamon] 500 mg PO DAILY 11/05/19 11/07/19 History [place] Supplement 1 tab PO DAILY 11/05/19 11/07/19 History Milk Thistle 150 mg PO DAILY 11/05/19 11/07/19 History Saw [place] 500 mg PO DAILY 11/07/19 11/07/19 History Allergies Allergy/AdvReac Type Severity Reaction Status Date / Time ragweed pollen Allergy Unknown Verified 11/07/19 08:45 Physical Exam Vitals: Vital Signs Temp Pulse Pulse Resp BP Pulse Ox 11/07/19 11:00 87 20 95 11/07/19 10:02 97.9 F 88 15 142/80 96 11/07/19 09:37 90 16 143/88 95 11/07/19 09:06 94 16 160/93 95 11/07/19 09:02 96 181 H 155/92 95 11/07/19 08:56 96 16 153/92 95 11/07/19 08:49 99 16 155/93 95 11/07/19 08:39 105 H 16 171/104 96 11/07/19 08:15 118 H 18 203/132 100 11/07/19 08:03 100 18 196/118 100 11/07/19 07:58 94 16 175/103 100 11/07/19 07:55 97.9 F 88 16 96 07/12/20 07:52 92 18 176/96 100 11/07/19 07:44 95 18 100/81 100 11/07/19 07:40 80 18 81/59 100 11/07/19 07:35 97 18 135/91 99 11/07/19 06:46 122 H 24 191/125 99 11/07/19 06:42 132 H 24 97 11/07/19 06:40 135 H 20 169/100 99 11/07/19 06:04 101 H 11/07/19 05:59 97.9 F 112 H 18 185/109 99 Intake and Output 11/06/19 11/07/19 11/07/19 22:59 06:59 14:59 Intake Total 11.825 Output Total 1275 Balance -1263.175 Intake: Intake, IV Titration 11.825 Amount Nitroglycerin-D5w Pmx 50 11.825 mg In Dextrose/Water 1 250ml.bag @ 5 MCG/MIN 1.5 mls/hr IV .Q24H ONE Rx#: [id number] Output: Urine 1275 Other: # Voids 1 Weight 79.379 kg 79.379 kg GENERAL EXAM: Alert, 64-year-old gentleman, on 3 L nasal cannula, comfortable in no apparent distress. HEAD: Normocephalic. EYES: Normal reaction of pupils, equal size. NOSE: Clear with pink turbinates. THROAT: No erythema or exudates. NECK: No masses, no JVD. CHEST: No chest wall deformity. LUNGS: Equal air entry with crackles in the posterior bases, no wheeze, rhonchi or dullness. CVS: S1 and S2 normal with no audible murmur, regular rhythm. ABDOMEN: No hepatosplenomegaly, normal bowel sounds, no guarding or rigidity. SPINE: No scoliosis or deformity SKIN: No rashes CENTRAL NERVOUS SYSTEM: No focal deficits, tone is normal in all 4 extremities. EXTREMITIES: There is no peripheral edema. No clubbing, no cyanosis. Peripheral pulses are intact. Results - Laboratory Findings CBC and BMP: 11/07/19 06:04 11/07/19 06:04 PT/INR, D-dimer PT 9.7 sec (9.0-12.0) 11/07/19 06:04 INR 0.9 (<1.2) 11/07/19 06:04 Abnormal lab findings: Abnormal Labs 11/07/19 11/07/19 11/07/19 06:04 06:04 06:04 WBC 19.7 H Neutrophils # 16.2 H Chloride 108 H Carbon Dioxide 21 L Glucose 268 H POC Glucose (mg/dL) Magnesium 1.5 L ALT 64 H Troponin I 0.139 H* 11/07/19 09:58 WBC Neutrophils # Chloride Carbon Dioxide Glucose POC Glucose (mg/dL) 308 H Magnesium ALT Troponin I - Diagnostic Findings Chest x-ray: image reviewed Assessment and Plan Assessment: 1 Acute chest discomfort in a patient with a recent non-ST segment elevation myocardial infarction and symptomatic multivessel coronary artery disease. The plan is for coronary artery revascularization tomorrow. 2 Acute pulmonary edema secondary to above 3 Chronic and ongoing tobacco dependence 4 chronic obstructive pulmonary disease, preoperative FEV1 value was 60% of predicted 5 Previous coronary artery disease with stent placement to the proximal circumflex and OM1 6 Peripheral vascular disease with prior peripheral stent placements 7 Right carotid artery stenosis at 50-69% 7 History of marijuana use 8 Diabetes mellitus, type II 9 History of bladder cancer status post radiation/chemotherapy and subsequent surgery 10 History of noncompliance Plan: The patient was seen and evaluated by Dr. Ragsdale Chest x-ray and labs reviewed Remains on a nitroglycerin drip for pain control Remains on heparin drip per weight base protocol We'll continue to monitor him closely here in the intensive care unit Plan is for CABG in a.m. We'll continue to follow I, the cosigning physician, performed a history & physical examination of the patient. Lungs sounds with faint crackles in the posterior bases. Maintaining good O2 saturations in the 90s on 3 L/m per nasal cannula. I discussed the assessment and plan of care with my nurse practitioner, Renetta Sanchez. I attest to the above note as dictated by her. Time with Patient: Greater than 30
[2019-11-07 11:57] LABS: Appearance,Urine Clear (Clear); Bacteria,Urine Rare /hpf; Bilirubin,Urine Negative (Negative); Blood,Urine Trace (Negative); Color,Urine Light Yellow; Glucose,Urine (UA) Trace (Negative); Hyaline Casts,Urine 3 /lpf (0-2); Ketones,Urine Negative (Negative); Leukocyte Esterase,Urine Negative (Negative); Mucus,Urine Rare /hpf; Nitrite,Urine Negative (Negative); Protein,Urine Negative (Negative); RBC,Urine 4 /hpf (0-5); Specific Gravity,Urine 1.007 (1.001-1.035); Urobilinogen,Urine <2.0 mg/dL (<2.0); WBC,Urine <1 /hpf (0-5)
[2019-11-07] MEDS ORDERED: lisinopriL 10 MG TAB PO SCH (12:45)
--- NOTE | 2019-11-07 13:23 | P.HPIM ---
History of Present Illness Patient is a [id number] male was recently discharged from the hospital came back in with the chest pain pressure-like sensation lasted for a few hours nonexertional did have elevated troponins. Patient had a triple-vessel disease patient is scheduled to undergo coronary artery bypass grafting on Friday went home started smoking again started having chest pain. Chest x-ray was read as pulmonary edema. It is not elevated patient clinically doesn't have any JVD or crackles or wheezing. Review of Systems REVIEW OF SYSTEMS: CONSTITUTIONAL: No fever, no malaise, no fatigue. HEENT: No recent visual problems or hearing problems. Denied any sore throat. CARDIOVASCULAR: No orthopnea, PND, no palpitations, no syncope. PULMONARY: No shortness of breath, no cough, no hemoptysis. GASTROINTESTINAL: No diarrhea, no nausea, no vomiting, no abdominal pain. NEUROLOGICAL: No headaches, no weakness, no numbness. HEMATOLOGICAL: Denies any bleeding or petechiae. GENITOURINARY: Denies any burning micturition, frequency, or urgency. MUSCULOSKELETAL/RHEUMATOLOGICAL: Denies any joint pain, swelling, or any muscle pain. ENDOCRINE: Denies any polyuria or polydipsia. The rest of the 14-point review of systems is negative. Past Medical History Past Medical History: Coronary Artery Disease (CAD), Cancer, Chest Pain / Angina, Diabetes Mellitus, Hypertension, Myocardial Infarction ([place]), Skin Disorder Additional Past Medical History / Comment(s): Intermittent BILATERAL CLAUDICATION & NEW OCCURRENCE OF LEFT PLANTAR FASCITIS (DIFFICULT TO WALK). Hx of bladder ca with surgery, psoriases,eczema, hiatal hernia, umbilical hernia, kidney stones 2004. Last Myocardial Infarction Date:: 2015 History of Any Multi-Drug Resistant Organisms: None Reported Past Surgical History: Heart Catheterization With Stent Additional Past Surgical History / Comment(s): 10/20/15 last CARDIAC STENT-has had several previous cardiac stents, vasectomy, bladder sx x2 to remove tumors. L femoral artherectomy/STENT TO LT common ILIAC artery, 05/22/16 R femoral/popliteal atherectomy with PTBA/stent, angiograms, aortogram with run off. Past Anesthesia/Blood Transfusion Reactions: No Reported Reaction Additional Past Anesthesia/Blood Transfusion Reaction / Comment(s): CLAUSTROPHOBIC IN LARGE CROWDS Date of Last Stent Placement:: 10/20/15 Past Psychological History: No Psychological Hx Reported Smoking Status: Current every day smoker - Past Family History Father Family Medical History: Myocardial Infarction ([place]) Additional Family Medical History / Comment(s): PT'S DAD WHEN PT WAS AGE 4 he believes from a myocardial infarction. Mother Family Medical History: Diabetes Mellitus, Hyperlipidemia, Hypertension, Vascular Disorder Medications and Allergies Home Medications Medication Instructions Recorded Confirmed Type Cholecalciferol [Vitamin D3 (25 1,000 unit PO DAILY #0 11/01/19 11/07/19 History Mcg = 1000 Iu)] Multivitamins, Thera [Multivitamin 1 tab PO DAILY 11/01/19 11/07/19 History (formulary)] Phytonadione (Vit K1) [Vitamin K-1] 100 mcg PO DAILY #0 11/01/19 11/07/19 History Turmeric Root Extract [Turmeric] 500 mg PO DAILY #0 11/01/19 11/07/19 History Aspirin 81 mg PO DAILY #30 chew 11/04/19 11/07/19 Rx Atorvastatin [Lipitor] 80 mg PO DAILY #30 tab 11/04/19 11/07/19 Rx Isosorbide Mononitrate ER [Imdur] 30 mg PO DAILY #30 tab.er.24h 11/04/19 11/07/19 Rx Metoprolol Tartrate [Lopressor] 25 mg PO BID #60 tab 11/04/19 11/07/19 Rx Nitroglycerin Sl Tabs [Nitrostat] 0.4 mg SUBLINGUAL Q5M PRN #30 tab 11/04/19 11/07/19 Rx metFORMIN HCL ER [Glucophage Xr] 500 mg PO BID #60 tab 11/04/19 11/07/19 Rx Ascorbic Acid [Vitamin C] 500 mg PO DAILY 11/05/19 11/07/19 History Cinnamon Bark [Cinnamon] 500 mg PO DAILY 11/05/19 11/07/19 History [place]her Supplement 1 tab PO DAILY 11/05/19 11/07/19 History Milk Thistle 150 mg PO DAILY 11/05/19 11/07/19 History Saw [place] 500 mg PO DAILY 11/07/19 11/07/19 History Allergies Allergy/AdvReac Type Severity Reaction Status Date / Time ragweed pollen Allergy Unknown Verified 11/07/19 08:45 Physical Exam Vitals: Vital Signs Temp Pulse Pulse Resp BP Pulse Ox 11/07/19 12:00 75 88 130/77 97 11/07/19 11:30 72 22 141/81 96 11/07/19 11:00 87 20 95 11/07/19 10:05 97.9 F 88 16 96 11/07/19 10:02 97.9 F 88 15 142/80 96 11/07/19 09:37 90 16 143/88 95 11/07/19 09:06 94 16 160/93 95 11/07/19 09:02 96 181 H 155/92 95 11/07/19 08:56 96 16 153/92 95 11/07/19 08:49 99 16 155/93 95 11/07/19 08:39 105 H 16 171/104 96 11/07/19 08:15 118 H 18 203/132 100 11/07/19 08:03 100 18 196/118 100 11/07/19 07:58 94 16 175/103 100 11/07/19 07:52 92 18 176/96 100 11/07/19 07:44 95 18 100/81 100 11/07/19 07:40 80 18 81/59 100 11/07/19 07:35 97 18 135/91 99 11/07/19 06:46 122 H 24 191/125 99 11/07/19 06:42 132 H 24 97 11/07/19 06:40 135 H 20 169/100 99 11/07/19 06:04 101 H 11/07/19 05:59 97.9 F 112 H 18 185/109 99 Intake and Output 11/06/19 11/07/19 11/07/19 22:59 06:59 14:59 Intake Total 11.825 Output Total 1275 Balance -1263.175 Intake: Intake, IV Titration 11.825 Amount Nitroglycerin-D5w Pmx 50 11.825 mg In Dextrose/Water 1 250ml.bag @ 5 MCG/MIN 1.5 mls/hr IV .Q24H ONE Rx#: [id number] Output: Urine 1275 Other: # Voids 1 Weight 79.379 kg 79.379 kg PHYSICAL EXAMINATION: GENERAL: The patient is alert and oriented x3, not in any acute distress. Well developed, well nourished. HEENT: Pupils are round and equally reacting to light. EOMI. No scleral icterus. No conjunctival pallor. Normocephalic, atraumatic. No pharyngeal erythema. No thyromegaly. CARDIOVASCULAR: S1 and S2 present. No murmurs, rubs, or gallops. PULMONARY: Chest is clear to auscultation, no wheezing or crackles. ABDOMEN: Soft, nontender, nondistended, normoactive bowel sounds. No palpable organomegaly. MUSCULOSKELETAL: No joint swelling or deformity. EXTREMITIES: No cyanosis, clubbing, or pedal edema. NEUROLOGICAL: Gross neurological examination did not reveal any focal deficits. SKIN: No rashes. Results CBC & Chem 7: 11/07/19 06:04 11/07/19 06:04 Labs: Abnormal Lab Results - Last 24 Hours (Table) 11/07/19 11/07/19 11/07/19 Range/Units 06:04 06:04 06:04 WBC 19.7 H (3.8-10.6) k/uL Neutrophils # 16.2 H (1.3-7.7) k/uL Chloride 108 H (98-107) mmol/L Carbon Dioxide 21 L (22-30) mmol/L Glucose 268 H (74-99) mg/dL POC Glucose (mg/dL) (75-99) mg/dL Magnesium 1.5 L (1.6-2.3) mg/dL ALT 64 H (4-49) U/L Troponin I 0.139 H* (0.000-0.034) ng/mL Urine Glucose (UA) (Negative) Urine Blood (Negative) Urine Bacteria (None) /hpf Hyaline Casts (0-2) /lpf Urine Mucus (None) /hpf Crossmatch 11/07/19 11/07/19 11/07/19 Range/Units 06:04 09:58 11:17 WBC (3.8-10.6) k/uL Neutrophils # (1.3-7.7) k/uL Chloride (98-107) mmol/L Carbon Dioxide (22-30) mmol/L Glucose (74-99) mg/dL POC Glucose (mg/dL) 308 H (75-99) mg/dL Magnesium (1.6-2.3) mg/dL ALT (4-49) U/L Troponin I (0.000-0.034) ng/mL Urine Glucose (UA) Trace H (Negative) Urine Blood Trace H (Negative) Urine Bacteria Rare H (None) /hpf Hyaline Casts 3 H (0-2) /lpf Urine Mucus Rare H (None) /hpf Crossmatch See Detail Thrombosis Risk Factor Assmnt - Choose All That Apply Any of the Below Risk Factors Present?: Yes Each Risk Factor Represents 2 Points: Age 61-74 years, Major surgery, Patient confined to bed Thrombosis Risk Factor Assessment Total Risk Factor Score: 6 Thrombosis Risk Factor Assessment Level: High Risk Assessment and Plan Plan: -Acute non-ST elevation microinfarction: Patient is on IV heparin patient will undergo CABG tomorrow patient has triple-vessel disease -Continue nicotine use: Counseling was provided Rafiq of extensive counseling during his last hospitalization patient still smoked. -COPD without any acute exacerbation -Peripheral vascular disease -Type 2 diabetes mellitus patient was on metformin patient was started on this medication during his last hospitalization this is being continued patient is also on sliding scale insulin
[2019-11-07] MEDS ORDERED: amLODIPine 10 MG TAB PO SCH (14:00)
--- NOTE | 2019-11-07 15:33 | CONS ---
CONSULTATION CHIEF COMPLAINT: Chest pain and shortness of breath. This is a 64-year-old gentleman with history of coronary artery disease who was to undergo bypass surgery electively tomorrow and came into hospital complaining of chest pain and shortness of breath. His blood pressures are elevated. A recent echocardiogram on him showed normal LV function. The ER physician thought that he was in pulmonary edema and had given him IV Lasix. At the time of my evaluation in the ICU, patient is appearing comfortable at rest. Blood pressures are elevated, but does not have any chest pain. His troponin is mildly elevated at 0.1. I instructed the ER physician to start IV heparin and IV nitroglycerin. I am starting him on lisinopril. PAST MEDICAL HISTORY: Significant for three-vessel coronary artery disease, hypertension, diabetes, dyslipidemia. MEDICATIONS: Medications at home include aspirin, atorvastatin 80 mg daily, Imdur 30 daily, Lopressor 25 b.i.d., Glucophage. ALLERGIES: There are no known drug allergies. FAMILY HISTORY: Negative for premature coronary artery disease. SOCIAL HISTORY: Significant for smoking. There is no history of EtOH abuse or drug abuse. REVIEW OF SYSTEMS: HEENT is unremarkable. Cardiac as described above. Respiratory as described above. GI negative. GENITOURINARY negative. ALLERGY none. SKIN negative. MUSCULOSKELETAL significant for arthritis. PSYCHOSOCIAL negative. CONSTITUTIONAL negative. HEMATOLOGICAL negative. Rest of the system review is not relevant. On exam, heart rate is 75 beats per minute. Blood pressure is 140/81, respiratory rate 18. There is no jugular venous distention. Chest exam reveals good air entry bilaterally. Heart exam reveals first and second heart sounds. No gallop. Exam of extremities did not reveal any edema. Peripheral pulses are felt. LABS: Show a hemoglobin of 13.8, platelet count is 240. Creatinine is 0.76, potassium is 4.5. BNP is normal at 193. ASSESSMENT: 1. Unstable angina in a patient with known multivessel coronary artery disease. 2. Uncontrolled hypertension. 3. Acute pulmonary edema. PLAN: The patient will continue heparin, nitro and will go for bypass surgery tomorrow. He has elevated white cell count, the exact etiology for which is unclear. There is a gin feeder on the case. His chest x-ray shows pulmonary congestion. He received IV Lasix and will continue with the Lasix. MMODL / IJN: [id number] /
[2019-11-07 16:47] LABS: Glucose,Whole Blood 226 mg/dL (75-99)
[2019-11-07] MEDS ORDERED: metFORMIN 500 MG TAB PO SCH (17:30)
[2019-11-07 20:08] LABS: Glucose,Whole Blood 171 mg/dL (75-99)
[2019-11-07] MEDS ORDERED: FUROSEMIDE 10 MG/ML 4 ML VIAL IV SCH ×2 (21:00)
[2019-11-07] MEDS ORDERED: MUPIROCIN 2% OINT 22 GM TUBE NASAL SCH (21:00)
[2019-11-08 04:38] LABS: Basophils # (A) 0.1 k/uL (0-0.2); Basophils % (A) 1 %; Eosinophils # (A) 0.4 k/uL (0-0.7); Eosinophils % (A) 4 %; HCT 39.9 % (39.0-53.0); HGB 12.8 gm/dL (13.0-17.5); Lymphocytes # (A) 2.6 k/uL (1.0-4.8); Lymphocytes % (A) 23 %; MCH 30.3 pg (25.0-35.0); MCHC 32.1 g/dL (31.0-37.0); MCV 94.6 fL (80.0-100.0); Monocytes # (A) 0.8 k/uL (0-1.0); Monocytes % (A) 7 %; Neutrophils # (A) 6.9 k/uL (1.3-7.7); Neutrophils % (A) 61 %; Platelet Count 198 k/uL (150-450); RBC 4.22 m/uL (4.30-5.90); WBC 11.3 k/uL (3.8-10.6)
[2019-11-08] MEDS ORDERED: ALBUMIN HUMAN 5% 500 ML in EMPTY BAG 1 BAG IVPB ONE ×6 (05:00)
[2019-11-08] MEDS ORDERED: ceFAZolin 3 GM in SODIUM CHLORIDE 0.9% 30 ML IVPB ONE (05:00)
[2019-11-08] MEDS ORDERED: LACTATED RINGERS 1,000 ML IV SCH (05:00)
[2019-11-08] MEDS ORDERED: ceFAZolin 1,000 MG in SODIUM CHLORIDE 0.9% IRRIGATIO 1,000 ML IRRIGATION ONE (06:00)
[2019-11-08] MEDS ORDERED: SODIUM BICARB 8.4% 50 ML SYR (1 MEQ/ML) IV ONE (06:00)
[2019-11-08] MEDS ORDERED: NITROGLYCERIN-D5W PMX 50 MG in DEXTROSE/WATER 1 250ML.BAG IV SCH (06:00)
[2019-11-08] MEDS ORDERED: MANNITOL 25% 12.5 GM/50 ML VIAL IV ONE ×2 (06:00)
[2019-11-08] MEDS ORDERED: PHENYLEPHRINE 10 MG/ML VIAL IV ONE (06:00)
[2019-11-08] MEDS ORDERED: CLEVIDIPINE BUTYRATE 25 MG in EMPTY BAG 1 BAG IV SCH (06:00)
[2019-11-08] MEDS ORDERED: ceFAZolin 2,000 MG in SODIUM CHLORIDE 0.9% 30 ML IVPB ONE ×4 (06:00)
[2019-11-08] MEDS ORDERED: PROTAMINE SULFATE 10 MG/ML 25 ML VIAL IV ONE ×2 (06:00→07:55)
[2019-11-08] MEDS ORDERED: PHENYLEPHRINE 40 MG in SODIUM CHLORIDE 0.9% 250 ML IV ONE (06:00)
[2019-11-08] MEDS ORDERED: ATORVASTATIN 10 MG TAB PO ONE (06:00)
[2019-11-08] MEDS ORDERED: HEPARIN SODIUM,PORCINE 5,000 UNIT in SODIUM CHLORIDE 0.9% 500 ML 500 ML IV ONE (06:00)
[2019-11-08] MEDS ORDERED: ASPIRIN 325 MG TAB PO ONE (06:00)
[2019-11-08] MEDS ORDERED: CALCIUM CHLORIDE 100 MG/ML 10 ML SYRINGE IVP ONE (06:00)
[2019-11-08] MEDS ORDERED: CARDIOPLEGIC SOLN (K+ 16 MEQ/L 1,000 ML with SOD BICARB SYR 8.4% (1 MEQ/ML) 20 ML, LIDO... PERFUSION NR ×3 (06:00)
[2019-11-08] MEDS ORDERED: TRANEXAMIC ACID 2,000 MG in SODIUM CHLORIDE 0.9% 80 ML IV ONE (06:00)
[2019-11-08] MEDS ORDERED: HEPARIN SODIUM 1,000 UN/ML (10ML VL) IV ONE (06:00)
[2019-11-08] MEDS ORDERED: METOPROLOL TARTRATE 12.5 MG TAB PO ONE (06:00)
[2019-11-08] MEDS ORDERED: MAGNESIUM SULFATE SYG 4.06 MEQ/ML SYRINGE IV ONE (06:00)
[2019-11-08] MEDS ORDERED: PROTAMINE SULFATE 250 MG in EMPTY BAG 1 BAG IV ONE (06:00)
[2019-11-08] MEDS ORDERED: INSULIN REGULAR 100 UNIT in SODIUM CHLORIDE 0.9% 100 ML IV SCH (06:00)
[2019-11-08] MEDS ORDERED: ALBUMIN HUMAN 25% 50 ML in EMPTY BAG 1 BAG IVPB ONE (06:00)
[2019-11-08] MEDS ORDERED: NITROGLYCERIN-D5W PMX 25 MG/250 ML BTL IV ONE (06:00)
[2019-11-08] MEDS ORDERED: CHLORHEXIDINE GLUCONATE 15 ML CUP MUCOUS MEM ONE (06:00)
[2019-11-08] MEDS ORDERED: PAPAVERINE 360 MG in SODIUM CHLORIDE 0.9% 90 ML IV ONE (06:00)
[2019-11-08] MEDS ORDERED: ALBUMIN HUMAN 5% (25gm) 500 ML VIAL IVPB ONE (07:55)
[2019-11-08] MEDS ORDERED: VECURONIUM 10 MG VIAL IV ONE (07:55)
[2019-11-08] MEDS ORDERED: POTASSIUM CHLORIDE OPEN HEART 20 MEQ/50 ML BAG IVPB ONE (07:55)
[2019-11-08] MEDS ORDERED: PROPOFOL 10 MG/ML 20 ML VIAL IV ONE (07:55)
[2019-11-08] MEDS ORDERED: fentaNYL (PF) 50 MCG/ML 50 ML VIAL ONE (07:55)
[2019-11-08] MEDS ORDERED: SODIUM CHLORIDE 0.9% IRRIG 1,000 ML BTL IRRIGATION ONE ×2 (07:55→09:11)
[2019-11-08] MEDS ORDERED: SODIUM BICARB 8.4% 50 ML SYR (1 MEQ/ML) ONE (07:55)
[2019-11-08] MEDS ORDERED: TRANEXAMIC ACID 1,000 MG/10 ML VIAL ONE (07:55)
[2019-11-08] MEDS ORDERED: MAGNESIUM SULFATE 4 MEQ/ML 10ML VIAL ONE (07:55)
[2019-11-08] MEDS ORDERED: LIDOCAINE 2% SYG (PF) 100 MG/5 ML ONE (07:55)
[2019-11-08] MEDS ORDERED: SODIUM CHLORIDE 0.9% 100 ML BAG ONE ×2 (07:55→09:11)
[2019-11-08] MEDS ORDERED: MIDAZOLAM 2 MG/2 ML VIAL ONE (07:55)
[2019-11-08] MEDS ORDERED: NITROGLYCERIN-D5W PMX 50 MG/250 ML BOTTLE IV ONE (07:55)
[2019-11-08] MEDS ORDERED: AMIODARONE 50 MG/ML 3 ML VIAL IV ONE (07:55)
[2019-11-08] MEDS ORDERED: fentaNYL (PF) 50 MCG/ML 2 ML AMP ONE (07:55)
[2019-11-08] MEDS ORDERED: INSULIN REGULAR 100 UNIT/ML VIAL ONE (07:55)
[2019-11-08] MEDS ORDERED: CALCIUM CHLORIDE 100 MG/ML 10 ML SYRINGE ONE (07:55)
[2019-11-08] MEDS ORDERED: ELECTROLYTE-R (PH 7.4) 1,000 ML IV.SOLN IV ONE (07:55)
[2019-11-08] MEDS ORDERED: HEPARIN SODIUM,PORCINE 10,000 UNIT/ML 1 ML VIAL ONE (07:55)
[2019-11-08 08:37] LABS: ABG Base Excess -0.2 mmol/L; ABG Glucose Whole Blood 165 mg/dL (75-99); ABG HCO3 24 mmol/L (21-25); ABG Hematocrit 36 % (34.0-46.0); ABG Ionized Calcium 4.6 mg/dL (4.5-5.3); ABG Lactic Acid Whole Blood 0.9 mmol/L (0.5-1.6); ABG Oxygen Saturation 99.8 % (94-97); ABG PCO2 38 mmHg (35-45); ABG PH 7.41 (7.35-7.45); ABG PO2 262 mmHg (83-108); ABG Potassium Whole Blood 3.8 mmol/L (3.4-4.5); ABG Sodium Whole Blood 139 mmol/L (135-146); ABG TCO2 25 mmol/L (19-24)
[2019-11-08] MEDS ORDERED: SODIUM CHLORIDE 0.9% 500 ML BAG ONE (09:11)
[2019-11-08] MEDS ORDERED: PAPAVERINE 30 MG/ML 2 ML VIAL ONE (09:11)
[2019-11-08] MEDS ORDERED: HEPARIN SODIUM,PORCINE 5,000 UNIT/ML 1 ML VIAL ONE (09:11)
[2019-11-08] MEDS ORDERED: SODIUM CHLORIDE 0.9% 50 ML BAG ONE (09:11)
[2019-11-08] MEDS ORDERED: ceFAZolin 1,000 MG VIAL ONE (09:11)
[2019-11-08 10:21] LABS: ABG Base Excess -1.8 mmol/L; ABG Glucose Whole Blood 162 mg/dL (75-99); ABG HCO3 24 mmol/L (21-25); ABG Hematocrit 34 % (34.0-46.0); ABG Ionized Calcium 4.6 mg/dL (4.5-5.3); ABG Lactic Acid Whole Blood 0.8 mmol/L (0.5-1.6); ABG Oxygen Saturation 99.1 % (94-97); ABG PCO2 46 mmHg (35-45); ABG PH 7.33 (7.35-7.45); ABG PO2 172 mmHg (83-108); ABG Potassium Whole Blood 3.8 mmol/L (3.4-4.5); ABG Sodium Whole Blood 138 mmol/L (135-146); ABG TCO2 26 mmol/L (19-24)
[2019-11-08 11:04] LABS: ABG Base Excess -8.1 mmol/L; ABG Glucose Whole Blood 266 mg/dL (75-99); ABG HCO3 19 mmol/L (21-25); ABG Ionized Calcium 4.4 mg/dL (4.5-5.3); ABG Oxygen Saturation 99.8 % (94-97); ABG PCO2 43 mmHg (35-45); ABG PH 7.25 (7.35-7.45); ABG Potassium Whole Blood 3.4 mmol/L (3.4-4.5); ABG Sodium Whole Blood 139 mmol/L (135-146); ABG TCO2 20 mmol/L (19-24)
[2019-11-08 11:30] LABS: ABG Base Excess -3.5 mmol/L; ABG Glucose Whole Blood 218 mg/dL (75-99); ABG HCO3 22 mmol/L (21-25); ABG Ionized Calcium 4.3 mg/dL (4.5-5.3); ABG Oxygen Saturation 99.8 % (94-97); ABG PCO2 39 mmHg (35-45); ABG PH 7.36 (7.35-7.45); ABG PO2 347 mmHg (83-108); ABG Potassium Whole Blood 3.2 mmol/L (3.4-4.5); ABG Sodium Whole Blood 138 mmol/L (135-146); ABG TCO2 23 mmol/L (19-24)
[2019-11-08 11:54] LABS: ABG Base Excess -2.2 mmol/L; ABG Glucose Whole Blood 183 mg/dL (75-99); ABG HCO3 23 mmol/L (21-25); ABG Oxygen Saturation 99.8 % (94-97); ABG PCO2 44 mmHg (35-45); ABG PH 7.34 (7.35-7.45); ABG PO2 322 mmHg (83-108); ABG Potassium Whole Blood 3.2 mmol/L (3.4-4.5); ABG Sodium Whole Blood 141 mmol/L (135-146); ABG TCO2 25 mmol/L (19-24)
[2019-11-08 12:33] LABS: ABG Base Excess -0.6 mmol/L; ABG Glucose Whole Blood 170 mg/dL (75-99); ABG HCO3 25 mmol/L (21-25); ABG Ionized Calcium 4.4 mg/dL (4.5-5.3); ABG Oxygen Saturation 99.9 % (94-97); ABG PCO2 44 mmHg (35-45); ABG PH 7.36 (7.35-7.45); ABG PO2 312 mmHg (83-108); ABG Potassium Whole Blood 3.7 mmol/L (3.4-4.5); ABG Sodium Whole Blood 141 mmol/L (135-146); ABG TCO2 26 mmol/L (19-24)
[2019-11-08 12:57] LABS: ABG Base Excess -0.3 mmol/L; ABG Glucose Whole Blood 159 mg/dL (75-99); ABG HCO3 25 mmol/L (21-25); ABG Ionized Calcium 4.4 mg/dL (4.5-5.3); ABG Oxygen Saturation 99.7 % (94-97); ABG PCO2 40 mmHg (35-45); ABG PO2 290 mmHg (83-108); ABG Potassium Whole Blood 3.8 mmol/L (3.4-4.5); ABG Sodium Whole Blood 142 mmol/L (135-146); ABG TCO2 26 mmol/L (19-24)
[2019-11-08 13:32] LABS: ABG Base Excess -1.3 mmol/L; ABG Glucose Whole Blood 137 mg/dL (75-99); ABG HCO3 25 mmol/L (21-25); ABG Ionized Calcium 4.6 mg/dL (4.5-5.3); ABG Oxygen Saturation 99.5 % (94-97); ABG PCO2 47 mmHg (35-45); ABG PH 7.33 (7.35-7.45); ABG PO2 223 mmHg (83-108); ABG Potassium Whole Blood 3.6 mmol/L (3.4-4.5); ABG Sodium Whole Blood 141 mmol/L (135-146); ABG TCO2 26 mmol/L (19-24)
[2019-11-08 13:51] LABS: ABG PO2 >420 mmHg (83-108)
[2019-11-08 13:52] LABS: ABG Hematocrit 23 % (34.0-46.0); ABG Lactic Acid Whole Blood 4.4 mmol/L (0.5-1.6)
[2019-11-08 13:53] LABS: ABG Hematocrit 21 % (34.0-46.0); ABG Lactic Acid Whole Blood 4.8 mmol/L (0.5-1.6)
[2019-11-08 13:54] LABS: ABG Hematocrit 22 % (34.0-46.0); ABG Lactic Acid Whole Blood 4.2 mmol/L (0.5-1.6)
[2019-11-08 13:59] LABS: ABG Base Excess -3.1 mmol/L; ABG Glucose Whole Blood 131 mg/dL (75-99); ABG HCO3 23 mmol/L (21-25); ABG Ionized Calcium 4.4 mg/dL (4.5-5.3); ABG Oxygen Saturation 99.8 % (94-97); ABG PCO2 45 mmHg (35-45); ABG PH 7.32 (7.35-7.45); ABG PO2 273 mmHg (83-108); ABG Potassium Whole Blood 4.2 mmol/L (3.4-4.5); ABG Sodium Whole Blood 141 mmol/L (135-146); ABG TCO2 24 mmol/L (19-24)
[2019-11-08 14:07] LABS: ABG Hematocrit 23 % (34.0-46.0); ABG Lactic Acid Whole Blood 3.7 mmol/L (0.5-1.6)
[2019-11-08 14:08] LABS: ABG Lactic Acid Whole Blood 2.6 mmol/L (0.5-1.6)
[2019-11-08 14:08] LABS: ABG Hematocrit 23 % (34.0-46.0); ABG Lactic Acid Whole Blood 3.3 mmol/L (0.5-1.6)
[2019-11-08 14:09] LABS: ABG Hematocrit 23 % (34.0-46.0); ABG Lactic Acid Whole Blood 2.9 mmol/L (0.5-1.6)
[2019-11-08 14:09] LABS: ABG Hematocrit 23 % (34.0-46.0)
[2019-11-08 14:23] LABS: ABG Base Excess -1.3 mmol/L; ABG Glucose Whole Blood 115 mg/dL (75-99); ABG HCO3 24 mmol/L (21-25); ABG Hematocrit 25 % (34.0-46.0); ABG Ionized Calcium 4.2 mg/dL (4.5-5.3); ABG Oxygen Saturation 99.7 % (94-97); ABG PCO2 40 mmHg (35-45); ABG PH 7.38 (7.35-7.45); ABG PO2 271 mmHg (83-108); ABG Potassium Whole Blood 4.1 mmol/L (3.4-4.5); ABG Sodium Whole Blood 141 mmol/L (135-146); ABG TCO2 25 mmol/L (19-24)
[2019-11-08 14:29] LABS: ABG Lactic Acid Whole Blood 3.5 mmol/L (0.5-1.6)
[2019-11-08] MEDS ORDERED: ONDANSETRON 4 MG/2 ML VIAL IVP PRN (14:41)
[2019-11-08] MEDS ORDERED: IPRATROPIUM-ALBUTEROL 3 ML NEB INHALATION PRN (14:41)
[2019-11-08] MEDS ORDERED: Magnesium Replacement Protocol 1 EACH MISC MISCELLANE PRN (14:41)
[2019-11-08] MEDS ORDERED: Potassium Replacement Protocol 1 EACH MISC MISCELLANE PRN (14:41)
[2019-11-08] MEDS ORDERED: BENZOCAINE/MENTHOL LOZENG 1 EACH LOZENGE MUCOUS MEM PRN (14:41)
[2019-11-08] MEDS ORDERED: Phosphorus Replacement Protoco 1 EACH MISC MISCELLANE PRN (14:41)
[2019-11-08] MEDS ORDERED: CALCIUM GLUCONATE 2 GM in SODIUM CHLORIDE 0.9% 100 ML IVPB PRN (14:41)
[2019-11-08] MEDS: NOREPINEPHRINE 4 MG in SODIUM CHLORIDE 0.9% 250 ML IV SCH (15:00)
[2019-11-08] MEDS: DILTIAZEM 125 MG in SODIUM CHLORIDE 0.9% 100 ML IV SCH (15:00)
[2019-11-08 15:07] LABS: Glucose,Whole Blood 109 mg/dL (75-99)
--- NOTE | 2019-11-08 15:10 | P.OP ---
Date of Procedure: 11/08/19 Preoperative Diagnosis: Coronary artery disease, unstable angina, status post subendocardial myocardial infarction. Postoperative Diagnosis: Same Procedure(s) Performed: CABG 5 with GR to LAD, left radial artery to obtuse marginal, saphenous vein to posterior lateral, sequential saphenous vein to first and second diagonal performed on cardiopulmonary bypass with beating heart. Epi-aortic ultrasound and ligation of left atrial appendage with Ben clip Implants: 40 mm AtriCure clip Anesthesia: MARK Surgeon: Sunday Hewitt Capture Manager #1: Aki Valencia Capture Manager #2: Shay Beyer Estimated Blood Loss (ml): 500 IV fluids (ml): 3,000 Urine output (ml): 500 Pathology: none sent Condition: stable Disposition: ICU Indications for Procedure: 64-year-old male with known history of coronary artery disease, noncompliant with medication. Presented last week with subendocardial infarction and had Cardiac catheterization demonstrating severe diffuse coronary artery disease with critical coronary stenoses. His recommended to undergo coronary bypass surgery. Patient insisted on going home to "take care of some things". Scheduled electively for this morning. He presented over the weekend with severe chest pain which responded to treatment with medication. He was stabilized and brought to the operating room this morning. Operative Findings: Patient had severe diffuse calcific coronary artery disease. He had posterior plaque in the eighth of the aorta on epi-aortic ultrasound. Left ventricle was enlarged. Description of Procedure: The patient was brought to the operating room placed supine on the operating table anesthetized and intubated. [place]-Juni catheter floated in the preop ho lding area. We'll artery line had also been started. Patient was prepped and draped with left leg of the anterior chest abdomen and bilateral lower extremities and left upper extremity. Left radial artery was harvested using endovascular harvest technique. A left greater saphenous vein was also harvested from the ankle to the groin using endovascular harvest technique. Simultaneous to conduit harvest midline sternotomy was performed. The left hemisternum was retracted upwards and the left internal mammary artery harvested on a vascularized pedicle left intact on its origin from the subclavian and divided distally. It was a good conduit. Left pleural space was drained with 32-[place] chest tube. Right pleural space was opened. Epi-aortic ultrasound was performed. There was plaque of the distal wall of the aorta but the anterior wall was clear. Pericardium was opened in the midline and the heart exposed with pericardial sutures. Patient was systemically heparinized. Coronary arteries were explored. There was diffuse calcific disease present. The LAD was heavily diseased and only graftable near the apex. There were 2 diagonal branches which were small but graftable. Obtuse marginal branch was diffusely diseased and calcified with stents in place. It was only graftable very distally. Posterior lateral branch was large vessel diffusely diseased and graftable. The posterior descending coronary artery was very small and graftable. We began with bypass of the GR to the LAD off pump. Distal apex was stabilized and the LAD was opened. Blood flow was controlled 1.5 mm flow through. Anastomosis of the GR to the LAD was begun. Through the anastomosis the patient became ischemic and his blood pressure dropped. For made at resuscitation however he did not respond. Was decided to go off pump. He was systemically heparinized to a full level. 7 mm soft flow cannula was placed in the distal ascending aorta and straight venous cannulas through the right atrial appendage into the inferior vena cava. Patient arrested during this time period and fibrillated. Once he was on bypass we shocked several times and eventually got him out of fibrillation. Initially he was asystolic but sinus rhythm gradually returned. Was decided to proceed with bypass surgery beating heart cardioplegia bypass assisted. Patient remained on full cardiopulmonary bypass during grafting. GR to the LAD anastomosis was completed. On completion anastomosis the flow through was removed effectively probe the proximal distal portion of the anastomosis. Suture was tied with good result and hemostasis and inflow was open. Mammary pedicle was tacked surrounding epicardium with 6-0 silk. The base of the left atrial appendage was sized and a 40 mm AtriCure clip applied. Next a piece of saphenous vein was used for the sequential grafts to the first and second diagonal. This was loaded on passport anastomotic connector and connected to the ascending aorta to the left of midline in the midportion. [id number] anastomosis was constructed to the first obtuse marginal. This was a 1.5 mm vessel with diffuse disease present. Anastomosis was constructed with running 7-0 Prolene suture. On completion anastomosis the flow through was removed from the proximal distal portion anastomosis. Bulldog was moved proximal to distal and good hemostasis was noted. Next the distal anastomosis of the vein graft to the second diagonal was performed. The second diagonal was also 1.5 mm vessel with diffuse disease present. Was opened and blood flow control the 1.5 mm flow through. End to side anastomosis between the vein graft of the diagonal was performed with running 7-0 Prolene suture. On completion of the anastomosis flow through was removed effectively probing the proximal and distal portion of the anastomosis. Suture was tied with good result and hemostasis. Inflow was opened and attention was directed to the distal portion of the obtuse marginal coronary artery. This was stabilized and opened it was diffusely diseased vessel with a 1 mm lumen. 1 mm flow through was placed. The radial artery was anastomosed in end-to-side fashion with running 8-0 Prolene suture. Completion anastomosis flow through was removed effectively probing the proximal distal portion anastomosis. Suture was tied with good result and hemostasis. Next the second piece of saphenous vein was cut and sized for the posterior lateral branch, was loaded on passport anastomotic connector and connected to the ascending aorta in the midline above the sinotubular junction. This brought around the right side of the heart and the posterior lateral branch was opened. It was a 1.5 mm vessel. Blood flow was controlled with a 1.5 mm flow through. Anastomosis was constructed with running 7-0 Prolene suture. On completion of the distal anastomosis the flow through was removed effectively probing the proximal distal portion anastomosis. The heart was lowered into anatomic position and bulldog clamps placed proximally on the saphenous vein graft to the diagonals. This was opened in a linear fashion and the proximal anastomosis of the radial artery constructed her e. On completion of the anastomosis all clamps were removed and the heart was revascularized.. All the grafts lay well. Good hemostasis was noted throughout. Patient was weaned from cardioplegic bypass. easily. The heart looked good on VAL. Heparin was reversed with protamine the patient was decannulated in standard fashion. Once good hemostasis of been assured throughout the right pleural space was drained with 32-[place] chest tube, the mediastinum to 36-[place] chest tubes. The chest was irrigated with warm antibiotic solution and the sternum closed with 9 sternal wires. The fascia was closed with 0 Ethibond. Subcutaneous and subcuticular layers and the leg arm and chest were closed with layers of Vicryl suture. Dry sterile dressings were applied the patient was transferred to the CVICU in stable condition.
[2019-11-08 15:25] LABS: Basophils % (A) 0 %; Eosinophils # (A) 0.1 k/uL (0-0.7); Eosinophils % (A) 1 %; HCT 24.7 % (39.0-53.0); Lymphocytes # (A) 1.2 k/uL (1.0-4.8); Lymphocytes % (A) 11 %; MCH 31.5 pg (25.0-35.0); MCHC 33.3 g/dL (31.0-37.0); MCV 94.5 fL (80.0-100.0); Mean Platelet Volume 9.3; Monocytes # (A) 1.1 k/uL (0-1.0); Monocytes % (A) 10 %; Neutrophils # (A) 8.6 k/uL (1.3-7.7); Neutrophils % (A) 75 %; RBC 2.61 m/uL (4.30-5.90); RDW 13.4 % (11.5-15.5); WBC 11.4 k/uL (3.8-10.6)
[2019-11-08 15:27] LABS: HGB 8.2 gm/dL (13.0-17.5); Platelet Count 78 k/uL (150-450)
[2019-11-08 15:31] LABS: ABG HCO3 25 mmol/L (21-25); ABG PCO2 49 mmHg (35-45); ABG PH 7.32 (7.35-7.45); ABG PO2 226 mmHg (83-108); ABG TCO2 27 mmol/L (19-24); Allen Test Performed? Yes
[2019-11-08 15:31] LABS: INR 1.4 (<1.2); Partial Thromboplastin Time 92.5 sec (22.0-30.0)
[2019-11-08 15:32] LABS: ABG Base Excess -0.8 mmol/L; ABG Oxygen Saturation 99.2 % (94-97)
[2019-11-08 15:35] LABS: Ionized Calcium 4.5 mg/dL (4.5-5.3)
[2019-11-08] MEDS: IPRATROPIUM-ALBUTEROL 3 ML NEB INHALATION SCH ×3 (15:35→20:57)
--- NOTE | 2019-11-08 15:40 | XR ---
EXAMINATION TYPE: XR chest 1V portable DATE OF EXAM: 11/08/2019 COMPARISON: Prior chest x-ray dated 11/07/2019 HISTORY: Postop cardiac surgery TECHNIQUE: Single frontal view of the chest is obtained. FINDINGS: Patient is post median sternotomy. Endotracheal tube, NG tube, left and right chest tubes, mediastinal drain, right jugular central venous catheter, atrial appendage clipping are present. Pat ient is rotated. Lung volumes are low. Heart size is likely stable. Interstitium remains increased. N o evident pneumothorax or sizable effusion. Subcutaneous emphysema noted over the left chest. IMPRESSION: Postop findings. Correlate for volume overload, pulmonary venous hypertension and inters titial edema. Expiratory rotated exam.
[2019-11-08 15:42] LABS: ALT 28 U/L (4-49); AST 132 U/L (17-59); African American GFR (CKD) >90 (>60 ml/min/1.73 sqM); Albumin 2.5 g/dL (3.5-5.0); Alkaline Phosphatase 25 U/L (38-126); Anion Gap 5 mmol/L; Blood Urea Nitrogen 13 mg/dL (9-20); Carbon Dioxide 24 mmol/L (22-30); Chloride 109 mmol/L (98-107); Glucose 97 mg/dL (74-99); Magnesium 1.6 mg/dL (1.6-2.3); Non-African American GFR(CKD) >90 (>60 ml/min/1.73 sqM); Potassium 4.2 mmol/L (3.5-5.1); Sodium 138 mmol/L (137-145); Total Protein 3.8 g/dL (6.3-8.2)
--- NOTE | 2019-11-08 15:54 | P.PN ---
Subjective Progress Note Date: 11/08/19 This is a 64-year-old male patient with coronary artery disease, noncompliant to medication. The patient came in with subendocardial infarction and cardiac catheterization showed diffuse coronary artery disease with critical stenosis. The patient underwent coronary artery bypass today. The patient underwent bypass 5 with GR to LAD, radial artery graft to acute marginal, saphenous finger after 2 posterior lateral and sick ration saphenous vein to first and second diagonal performed on cardiac pulmonary bypass with beating heart. Left atrial appendage was also added. The patient currently is in the intensive care unit. I centimeters in regards to the ICU. He was initially on a SIMV mode of ventilation at the rate of 12 with a tidal volume of 500 and FiO2 of 100% with a PEEP of 5 and a pressure support of 5. The blood gas showed a pH of 7.318 with a pCO2 of 49 and pO2 of 226. The chest x-ray postop showed volume overload with pulmonary vascular congestion and interstitial edema. The lines and tubes are all in good location. Based on all this, I increased the respiratory rate of 24. I do not FiO2 down to 60%. Current cardiac output is at 2.6 with an index of 5. The patient has 2 mediastinal 1 right pleural and 1 left pleural chest tube. Ultrasound of the sternal chest tubes has been around 150 mL since he arrived from the operating room. No evidence of any air leak. The patient is currently on a Cardizem drip and milrinone drip and the patient is on insulin drip for blood sugar control.he is well sedated. Is quite symptoms with the mechanical ventilator. Postoperative hemoglobin is at 8.2. Platelet count is down to 78. Objective - Vital Signs Vital signs: Vital Signs Temp 97.8 F 11/08/19 04:00 Pulse 107 H 11/08/19 15:38 Resp 12 11/08/19 15:38 BP 143/68 11/08/19 07:00 Pulse Ox 97 11/08/19 07:00 Intake & Output 11/07/19 11/08/19 11/08/19 18:59 06:59 18:59 Intake Total 75.801 653 Output Total 1575 3975 1900 Balance -1499.199 -6508 -7134 Weight 79.379 kg 74.3 kg Intake: IV 33 Intake, IV Titration 75.801 Amount Heparin Sod,Pork in 0.45% 63.976 NaCl 25,000 unit In 0.45 % NaCl 1 250ml.bag @ 12 UNITS/KG/HR 9.525 mls/hr IV .Q24H YVAN Rx#: [id number] Nitroglycerin-D5w Pmx 50 11.825 mg In Dextrose/Water 1 250ml.bag @ 5 MCG/MIN 1.5 mls/hr IV .Q24H ONE Rx#: [id number] Blood Product 620 Rc As-1 Unit 310 [id number] Rc As-3 Unit 310 [id number] Output: Urine 1575 1675 400 Estimated Blood Loss 1500 Other: # Voids 1 - Exam Gen. appearance sedated, comfortable and mechanical ventilator. Intubated and orogastric and orotracheal tube are both in place. Head exam was generally normal. There was no scleral icterus or corneal arcus. Mucous membranes were moist. Neck was supple and without jugular venous distension, thyromegaly, or carotid bruits. Carotids were easily palpable bilaterally. There was no adenopathy. The patient has a right IJ [place]-Juni catheter which is in place. Lungs sounds are breath sounds that are equal and symmetrical bilaterally. No wheezes rhonchi or any crackles. Cardiac exam revealed the PMI to be normally situated and sized. The rhythm was regular and no extrasystoles were noted during several minutes of auscultation. The first and second heart sounds were normal and physiologic splitting of the second heart sound was noted. There were no murmurs, rubs, clicks, or gallops. The patient has 2 mediastinal and a right-sided pleural and left-sided pleural chest tube. All of them are/2 pleural vacs and output is been noted. No evidence of any air leak. Sternum stable clean and intact at this point in time. Epicardial wires seen. Abdominal exam revealed normal bowel sounds. The abdomen was soft, non-tender, and without masses, organomegaly, or appreciable enlargement of the abdominal aorta. Examination of the extremities revealed easily palpable radial, femoral and pedal pulses. There was no cyanosis, clubbing or edema. No significant edema in lower extremities bilaterally. No cyanosis or clubbing. Examination of the skin revealed no evidence of significant rashes, suspicious appearing nevi or other concerning lesions. Neurologically awake and alert and is no focal neurological deficit at this point in time. - Labs CBC & Chem 7: 11/08/19 15:00 11/08/19 15:00 Labs: Abnormal Lab Results - Last 24 Hours (Table) 11/07/19 11/07/19 11/07/19 Range/Units 06:04 16:45 19:53 WBC (3.8-10.6) k/uL RBC (4.30-5.90) m/uL Hgb (13.0-17.5) gm/dL Hct (39.0-53.0) % Plt Count (150-450) k/uL Neutrophils # (1.3-7.7) k/uL Monocytes # (0-1.0) k/uL PT (9.0-12.0) sec INR (<1.2) APTT 47.2 H (22.0-30.0) sec ABG pH (7.35-7.45) ABG pCO2 (35-45) mmHg ABG pO2 (83-108) mmHg ABG HCO3 (21-25) mmol/L ABG Total CO2 (19-24) mmol/L ABG O2 Saturation (94-97) % ABG Hematocrit (34.0-46.0) % ABG Potassium (3.4-4.5) mmol/L ABG Ionized Calcium (4.5-5.3) mg/dL ABG Glucose (75-99) mg/dL ABG Lactic Acid (0.5-1.6) mmol/L Hemoglobin (13.0-17.5) gm/dL Chloride (98-107) mmol/L POC Glucose (mg/dL) 226 H (75-99) mg/dL Calcium (8.4-10.2) mg/dL AST (17-59) U/L Alkaline Phosphatase (38-126) U/L Total Protein (6.3-8.2) g/dL Albumin (3.5-5.0) g/dL Arterial Blood Potassium (3.4-4.5) mmol/L Arterial Blood Glucose (75-99) mg/dL Crossmatch See Detail 11/07/19 11/08/19 11/08/19 Range/Units 20:06 04:07 08:40 WBC 11.3 H (3.8-10.6) k/uL RBC 4.22 L (4.30-5.90) m/uL Hgb 12.8 L (13.0-17.5) gm/dL Hct (39.0-53.0) % Plt Count (150-450) k/uL Neutrophils # (1.3-7.7) k/uL Monocytes # (0-1.0) k/uL PT (9.0-12.0) sec INR (<1.2) APTT (22.0-30.0) sec ABG pH (7.35-7.45) ABG pCO2 (35-45) mmHg ABG pO2 262 H (83-108) mmHg ABG HCO3 (21-25) mmol/L ABG Total CO2 25 H (19-24) mmol/L ABG O2 Saturation 99.8 H (94-97) % ABG Hematocrit (34.0-46.0) % ABG Potassium (3.4-4.5) mmol/L ABG Ionized Calcium (4.5-5.3) mg/dL ABG Glucose 165 H (75-99) mg/dL ABG Lactic Acid (0.5-1.6) mmol/L Hemoglobin 11.9 L (13.0-17.5) gm/dL Chloride (98-107) mmol/L POC Glucose (mg/dL) 171 H (75-99) mg/dL Calcium (8.4-10.2) mg/dL AST (17-59) U/L Alkaline Phosphatase (38-126) U/L Total Protein (6.3-8.2) g/dL Albumin (3.5-5.0) g/dL Arterial Blood Potassium (3.4-4.5) mmol/L Arterial Blood Glucose 165 H (75-99) mg/dL Crossmatch 11/08/19 11/08/19 11/08/19 Range/Units 10:24 11:08 11:33 WBC (3.8-10.6) k/uL RBC (4.30-5.90) m/uL Hgb (13.0-17.5) gm/dL Hct (39.0-53.0) % Plt Count (150-450) k/uL Neutrophils # (1.3-7.7) k/uL Monocytes # (0-1.0) k/uL PT (9.0-12.0) sec INR (<1.2) APTT (22.0-30.0) sec ABG pH 7.33 L 7.25 L (7.35-7.45) ABG pCO2 46 H (35-45) mmHg ABG pO2 172 H >420 H 347 H (83-108) mmHg ABG HCO3 19 L (21-25) mmol/L ABG Total CO2 26 H (19-24) mmol/L ABG O2 Saturation 99.1 H 99.8 H 99.8 H (94-97) % ABG Hematocrit 23 L 21 L (34.0-46.0) % ABG Potassium 3.2 L (3.4-4.5) mmol/L ABG Ionized Calcium 4.4 L 4.3 L (4.5-5.3) mg/dL ABG Glucose 162 H 266 H 218 H (75-99) mg/dL ABG Lactic Acid 4.4 H* 4.8 H* (0.5-1.6) mmol/L Hemoglobin 11.2 L 7.4 L 6.9 L* (13.0-17.5) gm/dL Chloride (98-107) mmol/L POC Glucose (mg/dL) (75-99) mg/dL Calcium (8.4-10.2) mg/dL AST (17-59) U/L Alkaline Phosphatase (38-126) U/L Total Protein (6.3-8.2) g/dL Albumin (3.5-5.0) g/dL Arterial Blood Potassium 3.2 L (3.4-4.5) mmol/L Arterial Blood Glucose 162 H 266 H 218 H (75-99) mg/dL Crossmatch 11/08/19 11/08/19 11/08/19 Range/Units 11:58 12:36 13:00 WBC (3.8-10.6) k/uL RBC (4.30-5.90) m/uL Hgb (13.0-17.5) gm/dL Hct (39.0-53.0) % Plt Count (150-450) k/uL Neutrophils # (1.3-7.7) k/uL Monocytes # (0-1.0) k/uL PT (9.0-12.0) sec INR (<1.2) APTT (22.0-30.0) sec ABG pH 7.34 L (7.35-7.45) ABG pCO2 (35-45) mmHg ABG pO2 322 H 312 H 290 H (83-108) mmHg ABG HCO3 (21-25) mmol/L ABG Total CO2 25 H 26 H 26 H (19-24) mmol/L ABG O2 Saturation 99.8 H 99.9 H 99.7 H (94-97) % ABG Hematocrit 22 L 23 L 23 L (34.0-46.0) % ABG Potassium 3.2 L (3.4-4.5) mmol/L ABG Ionized Calcium 4.0 L 4.4 L 4.4 L (4.5-5.3) mg/dL ABG Glucose 183 H 170 H 159 H (75-99) mg/dL ABG Lactic Acid 4.2 H* 3.7 H* 3.3 H* (0.5-1.6) mmol/L Hemoglobin 7.1 L 7.4 L 7.4 L (13.0-17.5) gm/dL Chloride (98-107) mmol/L POC Glucose (mg/dL) (75-99) mg/dL Calcium (8.4-10.2) mg/dL AST (17-59) U/L Alkaline Phosphatase (38-126) U/L Total Protein (6.3-8.2) g/dL Albumin (3.5-5.0) g/dL Arterial Blood Potassium 3.2 L (3.4-4.5) mmol/L Arterial Blood Glucose 183 H 170 H 159 H (75-99) mg/dL Crossmatch 11/08/19 11/08/19 11/08/19 Range/Units 13:35 14:02 14:26 WBC (3.8-10.6) k/uL RBC (4.30-5.90) m/uL Hgb (13.0-17.5) gm/dL Hct (39.0-53.0) % Plt Count (150-450) k/uL Neutrophils # (1.3-7.7) k/uL Monocytes # (0-1.0) k/uL PT (9.0-12.0) sec INR (<1.2) APTT (22.0-30.0) sec ABG pH 7.33 L 7.32 L (7.35-7.45) ABG pCO2 47 H (35-45) mmHg ABG pO2 223 H 273 H 271 H (83-108) mmHg ABG HCO3 (21-25) mmol/L ABG Total CO2 26 H 25 H (19-24) mmol/L ABG O2 Saturation 99.5 H 99.8 H 99.7 H (94-97) % ABG Hematocrit 23 L 23 L 25 L (34.0-46.0) % ABG Potassium (3.4-4.5) mmol/L ABG Ionized Calcium 4.4 L 4.2 L (4.5-5.3) mg/dL ABG Glucose 137 H 131 H 115 H (75-99) mg/dL ABG Lactic Acid 2.6 H* 2.9 H* 3.5 H* (0.5-1.6) mmol/L Hemoglobin 7.4 L 7.6 L 8.0 L (13.0-17.5) gm/dL Chloride (98-107) mmol/L POC Glucose (mg/dL) (75-99) mg/dL Calcium (8.4-10.2) mg/dL AST (17-59) U/L Alkaline Phosphatase (38-126) U/L Total Protein (6.3-8.2) g/dL Albumin (3.5-5.0) g/dL Arterial Blood Potassium (3.4-4.5) mmol/L Arterial Blood Glucose 137 H 131 H 115 H (75-99) mg/dL Crossmatch 11/08/19 11/08/19 11/08/19 Range/Units 15:00 15:00 15:00 WBC 11.4 H (3.8-10.6) k/uL RBC 2.61 L (4.30-5.90) m/uL Hgb 8.2 L D (13.0-17.5) gm/dL Hct 24.7 L (39.0-53.0) % Plt Count 78 L D (150-450) k/uL Neutrophils # 8.6 H (1.3-7.7) k/uL Monocytes # 1.1 H (0-1.0) k/uL PT 14.0 H (9.0-12.0) sec INR 1.4 H (<1.2) APTT 92.5 H (22.0-30.0) sec ABG pH (7.35-7.45) ABG pCO2 (35-45) mmHg ABG pO2 (83-108) mmHg ABG HCO3 (21-25) mmol/L ABG Total CO2 (19-24) mmol/L ABG O2 Saturation (94-97) % ABG Hematocrit (34.0-46.0) % ABG Potassium (3.4-4.5) mmol/L ABG Ionized Calcium (4.5-5.3) mg/dL ABG Glucose (75-99) mg/dL ABG Lactic Acid (0.5-1.6) mmol/L Hemoglobin (13.0-17.5) gm/dL Chloride 109 H (98-107) mmol/L POC Glucose (mg/dL) (75-99) mg/dL Calcium 7.0 L (8.4-10.2) mg/dL AST 132 H (17-59) U/L Alkaline Phosphatase 25 L (38-126) U/L Total Protein 3.8 L (6.3-8.2) g/dL Albumin 2.5 L (3.5-5.0) g/dL Arterial Blood Potassium (3.4-4.5) mmol/L Arterial Blood Glucose (75-99) mg/dL Crossmatch 11/08/19 11/08/19 Range/Units 15:04 15:25 WBC (3.8-10.6) k/uL RBC (4.30-5.90) m/uL Hgb (13.0-17.5) gm/dL Hct (39.0-53.0) % Plt Count (150-450) k/uL Neutrophils # (1.3-7.7) k/uL Monocytes # (0-1.0) k/uL PT (9.0-12.0) sec INR (<1.2) APTT (22.0-30.0) sec ABG pH 7.32 L (7.35-7.45) ABG pCO2 49 H (35-45) mmHg ABG pO2 226 H (83-108) mmHg ABG HCO3 (21-25) mmol/L ABG Total CO2 27 H (19-24) mmol/L ABG O2 Saturation 99.2 H (94-97) % ABG Hematocrit (34.0-46.0) % ABG Potassium (3.4-4.5) mmol/L ABG Ionized Calcium (4.5-5.3) mg/dL ABG Glucose (75-99) mg/dL ABG Lactic Acid (0.5-1.6) mmol/L Hemoglobin (13.0-17.5) gm/dL Chloride (98-107) mmol/L POC Glucose (mg/dL) 109 H (75-99) mg/dL Calcium (8.4-10.2) mg/dL AST (17-59) U/L Alkaline Phosphatase (38-126) U/L Total Protein (6.3-8.2) g/dL Albumin (3.5-5.0) g/dL Arterial Blood Potassium (3.4-4.5) mmol/L Arterial Blood Glucose (75-99) mg/dL Crossmatch Assessment and Plan Plan: 1 coronary artery disease without stable angina and non-STEMI. The patient underwent five-vessel bypass surgery. CABG 5 with GR to LAD, left radial artery to obtuse marginal, saphenous vein to posterior lateral, sequential saphenous vein to first and second diagonal performed on cardiopulmonary bypass with beating heart. Epi-aortic ultrasound and ligation of left atrial appendage with Ben clip. The patient is postop day #0.. Hemodynamically stable on milrinone. The patient is also on Cardizem drip. 2 post thoracotomy, currently intubated on mechanical ventilator, chest x-ray and blood gases have been noted, and there is a component of respiratory acidosis the necessity ventilator changes have been done 3 acute pulmonary edema secondary to non-STEMI, post-bypass surgery 4 COPD with a baseline FEV1 of 60% of predicted 5 postoperative anemia, expected outcome of surgery, and this is likely of blood loss anemia 6 Peripheral vascular disease with prior peripheral stent placements 7 Right carotid artery stenosis at 50-69% 7 History of marijuana use 8 Diabetes mellitus, type II, insulin drip for blood sugar control 9 History of bladder cancer status post radiation/chemotherapy and subsequent surgery 10 History of noncompliance Plan Continue vent support and this is a ventilator changes have been done. The patient was placed on assist-control volumes second ventilation at the rate of 24 with an FiO2 dropped down to 60% with further weaning of the FiO2 based on the saturation Continue monitoring the hemodynamics, cardiac output and pulmonary pressures Keep inotropes for now which includes milrinone drip Insulin drip for blood sugar control Gradually wean off propofol Would proceed with the weaning trials once the patient is more awake. With extubate if no complications. We'll continue to follow. Case was discussed with the cardiac surgeon. There is a critically care evaluation was done and more than 30 minutes. Time with Patient: Greater than 30
[2019-11-08] MEDS: INSULIN REGULAR 100 UNIT in SODIUM CHLORIDE 0.9% 100 ML IV SCH (16:00)
[2019-11-08] MEDS ORDERED: CALCIUM GLUCONATE 2 GM in SODIUM CHLORIDE 0.9% 100 ML IVPB ONE (16:05)
[2019-11-08 16:17] LABS: Glucose,Whole Blood 144 mg/dL (75-99)
[2019-11-08] MEDS: LACTATED RINGERS 1,000 ML IV SCH (16:20)
[2019-11-08] MEDS: HEPARIN SOD,PORK IN 0.45% NACL 25,000 UNIT in 0.45% NACL 1 250ML.BAG IV SCH (16:20)
[2019-11-08] MEDS: MAGNESIUM SULFATE-D5W PMX 1 GM in DEXTROSE/WATER 1 100ML.BAG IVPB SCH ×2 (17:06→19:04)
[2019-11-08 17:14] LABS: Glucose,Whole Blood 172 mg/dL (75-99)
[2019-11-08 18:08] LABS: Glucose,Whole Blood 179 mg/dL (75-99)
[2019-11-08] MEDS: ALBUMIN HUMAN 5% 250 ML in EMPTY BAG 1 BAG IVPB PRN (18:10)
[2019-11-08 18:22] LABS: Basophils % (A) 0 %; Eosinophils # (A) 0.1 k/uL (0-0.7); Eosinophils % (A) 1 %; HCT 25.5 % (39.0-53.0); HGB 8.6 gm/dL (13.0-17.5); Lymphocytes # (A) 0.9 k/uL (1.0-4.8); Lymphocytes % (A) 9 %; MCH 31.5 pg (25.0-35.0); MCHC 33.8 g/dL (31.0-37.0); MCV 93.1 fL (80.0-100.0); Mean Platelet Volume 9.7; Monocytes # (A) 0.7 k/uL (0-1.0); Monocytes % (A) 7 %; Neutrophils # (A) 8.6 k/uL (1.3-7.7); Neutrophils % (A) 82 %; RBC 2.74 m/uL (4.30-5.90); RDW 13.7 % (11.5-15.5); WBC 10.5 k/uL (3.8-10.6)
[2019-11-08 18:32] LABS: Platelet Count 85 k/uL (150-450)
[2019-11-08 18:43] LABS: ABG Base Excess -1.4 mmol/L; ABG HCO3 23 mmol/L (21-25); ABG Oxygen Saturation 98.6 % (94-97); ABG PCO2 33 mmHg (35-45); ABG PH 7.45 (7.35-7.45); ABG PO2 115 mmHg (83-108); ABG TCO2 24 mmol/L (19-24); Allen Test Performed? Yes
[2019-11-08] MEDS: ACETAMINOPHEN IV (For NPO) 1,000 MG in EMPTY BAG 1 BAG IVPB SCH ×2 (19:03→21:34)
[2019-11-08 19:08] LABS: Glucose,Whole Blood 188 mg/dL (75-99)
[2019-11-08] MEDS: MILRINONE-D5W PMX 20 MG in DEXTROSE/WATER 1 100ML.BAG IV SCH (19:15)
[2019-11-08 20:18] LABS: Glucose,Whole Blood 155 mg/dL (75-99)
[2019-11-08 20:23] LABS: ABG Base Excess -1.4 mmol/L; ABG HCO3 24 mmol/L (21-25); ABG Oxygen Saturation 98.5 % (94-97); ABG PCO2 41 mmHg (35-45); ABG PH 7.38 (7.35-7.45); ABG PO2 121 mmHg (83-108); ABG TCO2 25 mmol/L (19-24); Allen Test Performed? Yes
[2019-11-08 20:25] LABS: Basophils % (A) 0 %; Eosinophils % (A) 0 %; HGB 8.3 gm/dL (13.0-17.5); Lymphocytes # (A) 1.1 k/uL (1.0-4.8); Lymphocytes % (A) 10 %; MCH 30.9 pg (25.0-35.0); MCHC 33.3 g/dL (31.0-37.0); MCV 92.9 fL (80.0-100.0); Mean Platelet Volume 10.2; Monocytes # (A) 0.7 k/uL (0-1.0); Monocytes % (A) 6 %; Neutrophils # (A) 8.7 k/uL (1.3-7.7); Neutrophils % (A) 81 %; RBC 2.69 m/uL (4.30-5.90); RDW 13.8 % (11.5-15.5); WBC 10.7 k/uL (3.8-10.6)
[2019-11-08 20:35] LABS: Ionized Calcium 4.9 mg/dL (4.5-5.3)
[2019-11-08 20:37] LABS: Platelet Count 98 k/uL (150-450)
[2019-11-08 20:41] LABS: African American GFR (CKD) >90 (>60 ml/min/1.73 sqM); Anion Gap 3 mmol/L; Blood Urea Nitrogen 14 mg/dL (9-20); Carbon Dioxide 25 mmol/L (22-30); Chloride 109 mmol/L (98-107); Glucose 147 mg/dL (74-99); Magnesium 2.1 mg/dL (1.6-2.3); Non-African American GFR(CKD) >90 (>60 ml/min/1.73 sqM); Sodium 137 mmol/L (137-145)
[2019-11-08 21:22] LABS: Glucose,Whole Blood 156 mg/dL (75-99)
[2019-11-08] MEDS: MUPIROCIN 2% OINT 22 GM TUBE NASAL SCH (21:54)
[2019-11-08] MEDS: METOPROLOL TARTRATE 12.5 MG TAB PO SCH (22:20)
[2019-11-08] MEDS: HEPARIN SODIUM,PORCINE 5,000 UNIT/ML 1 ML VIAL SQ SCH (22:22)
[2019-11-08 22:45] LABS: Glucose,Whole Blood 142 mg/dL (75-99)
[2019-11-09 00:06] LABS: Glucose,Whole Blood 123 mg/dL (75-99)
[2019-11-09 01:02] LABS: Glucose,Whole Blood 114 mg/dL (75-99)
[2019-11-09 02:04] LABS: Glucose,Whole Blood 135 mg/dL (75-99)
[2019-11-09] MEDS ORDERED: HYDROcodone/APAP 5-325MG 1 EACH TAB PO PRN ×2 (02:31)
[2019-11-09 03:21] LABS: Glucose,Whole Blood 127 mg/dL (75-99)
[2019-11-09 04:27] LABS: Glucose,Whole Blood 125 mg/dL (75-99)
[2019-11-09 04:48] LABS: Basophils % (A) 0 %; Eosinophils % (A) 0 %; HCT 23.6 % (39.0-53.0); HGB 7.9 gm/dL (13.0-17.5); Lymphocytes # (A) 1.1 k/uL (1.0-4.8); Lymphocytes % (A) 10 %; MCH 30.8 pg (25.0-35.0); MCHC 33.3 g/dL (31.0-37.0); MCV 92.6 fL (80.0-100.0); Mean Platelet Volume 9.4; Monocytes # (A) 0.9 k/uL (0-1.0); Monocytes % (A) 8 %; Neutrophils # (A) 8.7 k/uL (1.3-7.7); Neutrophils % (A) 78 %; Platelet Count 102 k/uL (150-450); RBC 2.55 m/uL (4.30-5.90); RDW 13.7 % (11.5-15.5); WBC 11.2 k/uL (3.8-10.6)
[2019-11-09 04:50] LABS: Ionized Calcium 4.9 mg/dL (4.5-5.3)
[2019-11-09 05:12] LABS: Glucose,Whole Blood 123 mg/dL (75-99)
[2019-11-09 05:15] LABS: ALT 40 U/L (4-49); AST 206 U/L (17-59); African American GFR (CKD) >90 (>60 ml/min/1.73 sqM); Albumin 2.9 g/dL (3.5-5.0); Alkaline Phosphatase 34 U/L (38-126); Anion Gap 6 mmol/L; Blood Urea Nitrogen 15 mg/dL (9-20); Calcium 8.2 mg/dL (8.4-10.2); Carbon Dioxide 24 mmol/L (22-30); Chloride 107 mmol/L (98-107); Glucose 106 mg/dL (74-99); Magnesium 1.9 mg/dL (1.6-2.3); Non-African American GFR(CKD) >90 (>60 ml/min/1.73 sqM); Potassium 4.2 mmol/L (3.5-5.1); Sodium 137 mmol/L (137-145); Total Bilirubin 0.8 mg/dL (0.2-1.3); Total Protein 4.5 g/dL (6.3-8.2)
[2019-11-09] MEDS: ALBUMIN HUMAN 5% 250 ML in EMPTY BAG 1 BAG IVPB PRN ×4 (05:30→12:37)
[2019-11-09] MEDS: DILTIAZEM 125 MG in SODIUM CHLORIDE 0.9% 100 ML IV SCH (05:31)
[2019-11-09] MEDS: HEPARIN SODIUM,PORCINE 5,000 UNIT/ML 1 ML VIAL SQ SCH ×3 (06:11→21:36)
[2019-11-09] MEDS: MAGNESIUM SULFATE-D5W PMX 1 GM in DEXTROSE/WATER 1 100ML.BAG IVPB SCH ×2 (06:12→09:01)
[2019-11-09 06:15] LABS: Glucose,Whole Blood 98 mg/dL (75-99)
--- NOTE | 2019-11-09 06:49 | XR ---
EXAMINATION TYPE: XR chest 1V portable DATE OF EXAM: 11/09/2019 COMPARISON: Prior chest x-ray 11/08/2019 HISTORY: Postop cardiac surgery TECHNIQUE: Single frontal view of the chest is obtained. FINDINGS: Endotracheal tube and NG tube have been removed. Bilateral chest tubes, median sternal darrion in, right jugular central venous catheter remain present and are overlying appropriate positions. Sma ll left and right apical pneumothoraces are present. Subcutaneous emphysema is present of the left ch est. Heart remains enlarged. There is some improvement in the interstitium. IMPRESSION: Interval extubation. Improvement in volume status, aeration.
[2019-11-09] MEDS ORDERED: NOREPINEPHRIN 4 MG-0.9% NS PMX 4 MG/250 ML ML IV ONE (07:27)
--- NOTE | 2019-11-09 07:36 | P.PN ---
Subjective Progress Note Date: 11/09/19 Principal diagnosis: Symptomatic multivessel coronary artery disease, unstable angina, status post subendocardial myocardial infarction. Previous medical history of CAD with previous stent placement to the proximal circumflex and ostial OM1, hypertension, hyperlipidemia, chronic ongoing tobacco dependence, mild COPD with preoperative FEV1 60% of predicted, right internal carotid artery stenosis 50- 69%, peripheral arterial disease with previous arthrectomy and INFORMATICS MANAGER of the left SFA, atherectomy and INFORMATICS MANAGER of the left PRODUCTION CONTROL SUPERVISOR, with stenting of the left BRIAN, poorly controlled type 2 diabetes with preoperative hemoglobin A1c 9.1%, bladder cancer status post chemo and radiation, occasional marijuana use, medication noncompliance, and family history of premature coronary artery disease POD #1 CABG 5 with GR to the LAD, left radial artery to the obtuse marginal, reverse saphenous vein to the posterior lateral, sequential saphenous vein to the first and second diagonal performed on cardiopulmonary bypass with beating heart. Endoscopic vein harvest of the left greater saphenous vein from the ankle to the groin. Endoscopic harvest of the left radial artery. Epi-aortic ultrasound and ligation of left atrial appendage with 40 mm AtriCure clip Postoperative acute blood loss anemia, expected outcome given cardiopulmonary bypass and hemodilution The patient is currently sitting up in a recliner in the intensive care unit in no acute distress. Was successfully extubated last night at 20:50. Denies any pain or shortness of breath. Pleasantly confused this morning, following some commands. Currently in sinus rhythm with occasional ectopy, blood pressure labile, slightly hypotensive after getting up to the chair this morning with fluid shift. Right internal jugular [place]/Cordis, right radial arterial line, mediastinal in the left pleural chest tubes present. Patient remains on low- dose Primacor as well as IV Cardizem for radial artery support. Objective - Vital Signs Vital signs: Vital Signs Temp 99.5 F 11/09/19 04:00 Pulse 88 11/09/19 06:00 Resp 20 11/09/19 06:00 BP 110/74 11/09/19 05:00 Pulse Ox 98 11/09/19 06:00 Intake & Output 11/08/19 11/09/19 11/09/19 18:59 06:59 18:59 Intake Total 0199.770 7152.001 Output Total 2953 1567 Balance -1854.716 -93.999 Weight 87 kg Intake: IV 448 1359 Albumin Human 5% 250 ml 500 In Empty Bag 1 bag @ 250 mls/hr IVPB Q1HR PRN Rx#: [id number] Lactated Ringers 1,000 ml 250 550 @ 50 mls/hr IV .Q20H YVAN Rx#:[id number] cardiac output 120 210 pressure bag 45 99 Intake, IV Titration 30.284 114.001 Amount Diltiazem 125 mg In 72.583 Sodium Chloride 0.9% 100 ml @ 5 MG/HR 5 mls/hr IV .Q24H YAVN Rx#:[id number] Insulin Regular 100 unit 4.545 41.418 In Sodium Chloride 0.9% 100 ml @ Per Protocol IV .Q0M YVAN Rx#:[id number] Norepinephrine 4 mg In 16.043 Sodium Chloride 0.9% 250 ml @ Titrate IV .Q0M YVAN Rx#:[id number] Propofol 1,000 mg In 9.696 Empty Bag 1 bag @ Titrate IV .Q0M YVAN Rx#: [id number] Blood Product 620 Rc As-1 Unit 310 [id number] Rc As-3 Unit 310 [id number] Output: Chest Tube Drainage 704 840 Mediastinal Chest Tube 510 320 Right and Left Pleural 194 520 Chest Tube Drainage 25 Left Calf 20 Left Wrist 5 Urine 749 702 Estimated Blood Loss 1500 Other: Voiding Method Indwelling Catheter Indwelling Catheter ABP, PAP, CO, CI - Last Documented Arterial Blood Pressure 101/42 Pulmonary Artery Pressure 18/8 Cardiac Output 4.2 Cardiac Index 2.2 - Constitutional General appearance: Present: cooperative, no acute distress - Respiratory Details: Lungs sounds diminished bilaterally. Respirations even, nonlabored. Currently on 3 L nasal cannula with oxygen saturation 97%. Able to achieve 750 mL on his incentive spirometry. Mediastinal chest tubes present to continuous wall suction, 140 mL serosanguineous drainage overnight, 850 mL since surgery. Righ t/left pleural chest tubes present to continuous wall suction, 340 mL serosanguineous drainage overnight, 750 mL since surgery. No air leaks present. - Cardiovascular Details: S1, S2 present. Regular rate and rhythm, sinus rhythm with occasional PVCs with rate 90s to low 100s. Sternum stable. A/V epicardial pacemaker wires present, connected to generator, VVI mode with backup rate 50 bpm. Palpable peripheral pulses bilaterally. No edema present. No calf pain or tenderness noted. Right internal jugular [place]/Cordis, right radial arterial line present. Last CO/CI 3.6/1.8, previous CO/CI 4.2/2.2. Heart hugger in place without patient demonstrating appropriate use. Antiembolism stockings, SCDs present. - Gastrointestinal Gastrointestinal Comment(s): Abdomen soft, nontender, nondistended. Hypoactive bowel sounds present 4 quadrants. Tolerating ice chips. Negative flatus. - Genitourinary Genitourinary Comment(s): Junior present draining clear, yellow urine. Output 75 mL/hr down to 30 mL/h, back up to 75 mL per hour this morning, last hour 10 mL. - Integumentary Integumentary Comment(s): Skin is warm and dry with evidence of good perfusion. Anterior chest incision well approximated and covered with dry intact dressing. Left radial artery harvest site well approximated, dressing clean dry and intact, ALYX drain present with minimal drainage. Patient has feeling in his left hand and can move all fingers appropriately with good cap refill. Left lower extremity EVH site well approximated without drainage, ALYX drain present with minimal drainage. - Neurologic Neurologic: Present: CNII-XII intact - Musculoskeletal Musculoskeletal: Present: generalized weakness, strength equal bilaterally - Psychiatric Psychiatric Comment(s): Oriented to person only, thinks it is 2016 and cannot tell me he is in the hospital or that he had open-heart surgery. He is following some commands. Sleepy but does arouse to voice. - Allied health notes Allied health notes reviewed: nursing - Labs CBC & Chem 7: 11/09/19 04:22 11/09/19 04:22 Labs: Abnormal Lab Results - Last 24 Hours (Table) 11/07/19 11/08/19 11/08/19 Range/Units 06:04 08:40 10:24 WBC (3.8-10.6) k/uL RBC (4.30-5.90) m/uL Hgb (13.0-17.5) gm/dL Hct (39.0-53.0) % Plt Count (150-450) k/uL Neutrophils # (1.3-7.7) k/uL Lymphocytes # (1.0-4.8) k/uL Monocytes # (0-1.0) k/uL PT (9.0-12.0) sec INR (<1.2) APTT (22.0-30.0) sec ABG pH 7.33 L (7.35-7.45) ABG pCO2 46 H (35-45) mmHg ABG pO2 262 H 172 H (83-108) mmHg ABG HCO3 (21-25) mmol/L ABG Total CO2 25 H 26 H (19-24) mmol/L ABG O2 Saturation 99.8 H 99.1 H (94-97) % ABG Hematocrit (34.0-46.0) % ABG Potassium (3.4-4.5) mmol/L ABG Ionized Calcium (4.5-5.3) mg/dL ABG Glucose 165 H 162 H (75-99) mg/dL ABG Lactic Acid (0.5-1.6) mmol/L Hemoglobin 11.9 L 11.2 L (13.0-17.5) gm/dL Chloride (98-107) mmol/L Glucose (74-99) mg/dL POC Glucose (mg/dL) (75-99) mg/dL Calcium (8.4-10.2) mg/dL AST (17-59) U/L Alkaline Phosphatase (38-126) U/L Total Protein (6.3-8.2) g/dL Albumin (3.5-5.0) g/dL Arterial Blood Potassium (3.4-4.5) mmol/L Arterial Blood Glucose 165 H 162 H (75-99) mg/dL Crossmatch See Detail 11/08/19 11/08/19 11/08/19 Range/Units 11:08 11:33 11:58 WBC (3.8-10.6) k/uL RBC (4.30-5.90) m/uL Hgb (13.0-17.5) gm/dL Hct (39.0-53.0) % Plt Count (150-450) k/uL Neutrophils # (1.3-7.7) k/uL Lymphocytes # (1.0-4.8) k/uL Monocytes # (0-1.0) k/uL PT (9.0-12.0) sec INR (<1.2) APTT (22.0-30.0) sec ABG pH 7.25 L 7.34 L (7.35-7.45) ABG pCO2 (35-45) mmHg ABG pO2 >420 H 347 H 322 H (83-108) mmHg ABG HCO3 19 L (21-25) mmol/L ABG Total CO2 25 H (19-24) mmol/L ABG O2 Saturation 99.8 H 99.8 H 99.8 H (94-97) % ABG Hematocrit 23 L 21 L 22 L (34.0-46.0) % ABG Potassium 3.2 L 3.2 L (3.4-4.5) mmol/L ABG Ionized Calcium 4.4 L 4.3 L 4.0 L (4.5-5.3) mg/dL ABG Glucose 266 H 218 H 183 H (75-99) mg/dL ABG Lactic Acid 4.4 H* 4.8 H* 4.2 H* (0.5-1.6) mmol/L Hemoglobin 7.4 L 6.9 L* 7.1 L (13.0-17.5) gm/dL Chloride (98-107) mmol/L Glucose (74-99) mg/dL POC Glucose (mg/dL) (75-99) mg/dL Calcium (8.4-10.2) mg/dL AST (17-59) U/L Alkaline Phosphatase (38-126) U/L Total Protein (6.3-8.2) g/dL Albumin (3.5-5.0) g/dL Arterial Blood Potassium 3.2 L 3.2 L (3.4-4.5) mmol/L Arterial Blood Glucose 266 H 218 H 183 H (75-99) mg/dL Crossmatch 11/08/19 11/08/19 11/08/19 Range/Units 12:36 13:00 13:35 WBC (3.8-10.6) k/uL RBC (4.30-5.90) m/uL Hgb (13.0-17.5) gm/dL Hct (39.0-53.0) % Plt Count (150-450) k/uL Neutrophils # (1.3-7.7) k/uL Lymphocytes # (1.0-4.8) k/uL Monocytes # (0-1.0) k/uL PT (9.0-12.0) sec INR (<1.2) APTT (22.0-30.0) sec ABG pH 7.33 L (7.35-7.45) ABG pCO2 47 H (35-45) mmHg ABG pO2 312 H 290 H 223 H (83-108) mmHg ABG HCO3 (21-25) mmol/L ABG Total CO2 26 H 26 H 26 H (19-24) mmol/L ABG O2 Saturation 99.9 H 99.7 H 99.5 H (94-97) % ABG Hematocrit 23 L 23 L 23 L (34.0-46.0) % ABG Potassium (3.4-4.5) mmol/L ABG Ionized Calcium 4.4 L 4.4 L (4.5-5.3) mg/dL ABG Glucose 170 H 159 H 137 H (75-99) mg/dL ABG Lactic Acid 3.7 H* 3.3 H* 2.6 H* (0.5-1.6) mmol/L Hemoglobin 7.4 L 7.4 L 7.4 L (13.0-17.5) gm/dL Chloride (98-107) mmol/L Glucose (74-99) mg/dL POC Glucose (mg/dL) (75-99) mg/dL Calcium (8.4-10.2) mg/dL AST (17-59) U/L Alkaline Phosphatase (38-126) U/L Total Protein (6.3-8.2) g/dL Albumin (3.5-5.0) g/dL Arterial Blood Potassium (3.4-4.5) mmol/L Arterial Blood Glucose 170 H 159 H 137 H (75-99) mg/dL Crossmatch 11/08/19 11/08/19 11/08/19 Range/Units 14:02 14:26 15:00 WBC 11.4 H (3.8-10.6) k/uL RBC 2.61 L (4.30-5.90) m/uL Hgb 8.2 L D (13.0-17.5) gm/dL Hct 24.7 L (39.0-53.0) % Plt Count 78 L D (150-450) k/uL Neutrophils # 8.6 H (1.3-7.7) k/uL Lymphocytes # (1.0-4.8) k/uL Monocytes # 1.1 H (0-1.0) k/uL PT (9.0-12.0) sec INR (<1.2) APTT (22.0-30.0) sec ABG pH 7.32 L (7.35-7.45) ABG pCO2 (35-45) mmHg ABG pO2 273 H 271 H (83-108) mmHg ABG HCO3 (21-25) mmol/L ABG Total CO2 25 H (19-24) mmol/L ABG O2 Saturation 99.8 H 99.7 H (94-97) % ABG Hematocrit 23 L 25 L (34.0-46.0) % ABG Potassium (3.4-4.5) mmol/L ABG Ionized Calcium 4.4 L 4.2 L (4.5-5.3) mg/dL ABG Glucose 131 H 115 H (75-99) mg/dL ABG Lactic Acid 2.9 H* 3.5 H* (0.5-1.6) mmol/L Hemoglobin 7.6 L 8.0 L (13.0-17.5) gm/dL Chloride (98-107) mmol/L Glucose (74-99) mg/dL POC Glucose (mg/dL) (75-99) mg/dL Calcium (8.4-10.2) mg/dL AST (17-59) U/L Alkaline Phosphatase (38-126) U/L Total Protein (6.3-8.2) g/dL Albumin (3.5-5.0) g/dL Arterial Blood Potassium (3.4-4.5) mmol/L Arterial Blood Glucose 131 H 115 H (75-99) mg/dL Crossmatch 11/08/19 11/08/19 11/08/19 Range/Units 15:00 15:00 15:04 WBC (3.8-10.6) k/uL RBC (4.30-5.90) m/uL Hgb (13.0-17.5) gm/dL Hct (39.0-53.0) % Plt Count (150-450) k/uL Neutrophils # (1.3-7.7) k/uL Lymphocytes # (1.0-4.8) k/uL Monocytes # (0-1.0) k/uL PT 14.0 H (9.0-12.0) sec INR 1.4 H (<1.2) APTT 92.5 H (22.0-30.0) sec ABG pH (7.35-7.45) ABG pCO2 (35-45) mmHg ABG pO2 (83-108) mmHg ABG HCO3 (21-25) mmol/L ABG Total CO2 (19-24) mmol/L ABG O2 Saturation (94-97) % ABG Hematocrit (34.0-46.0) % ABG Potassium (3.4-4.5) mmol/L ABG Ionized Calcium (4.5-5.3) mg/dL ABG Glucose (75-99) mg/dL ABG Lactic Acid (0.5-1.6) mmol/L Hemoglobin (13.0-17.5) gm/dL Chloride 109 H (98-107) mmol/L Glucose (74-99) mg/dL POC Glucose (mg/dL) 109 H (75-99) mg/dL Calcium 7.0 L (8.4-10.2) mg/dL AST 132 H (17-59) U/L Alkaline Phosphatase 25 L (38-126) U/L Total Protein 3.8 L (6.3-8.2) g/dL Albumin 2.5 L (3.5-5.0) g/dL Arterial Blood Potassium (3.4-4.5) mmol/L Arterial Blood Glucose (75-99) mg/dL Crossmatch 11/08/19 11/08/19 11/08/19 Range/Units 15:25 16:06 17:03 WBC (3.8-10.6) k/uL RBC (4.30-5.90) m/uL Hgb (13.0-17.5) gm/dL Hct (39.0-53.0) % Plt Count (150-450) k/uL Neutrophils # (1.3-7.7) k/uL Lymphocytes # (1.0-4.8) k/uL Monocytes # (0-1.0) k/uL PT (9.0-12.0) sec INR (<1.2) APTT (22.0-30.0) sec ABG pH 7.32 L (7.35-7.45) ABG pCO2 49 H (35-45) mmHg ABG pO2 226 H (83-108) mmHg ABG HCO3 (21-25) mmol/L ABG Total CO2 27 H (19-24) mmol/L ABG O2 Saturation 99.2 H (94-97) % ABG Hematocrit (34.0-46.0) % ABG Potassium (3.4-4.5) mmol/L ABG Ionized Calcium (4.5-5.3) mg/dL ABG Glucose (75-99) mg/dL ABG Lactic Acid (0.5-1.6) mmol/L Hemoglobin (13.0-17.5) gm/dL Chloride (98-107) mmol/L Glucose (74-99) mg/dL POC Glucose (mg/dL) 144 H 172 H (75-99) mg/dL Calcium (8.4-10.2) mg/dL AST (17-59) U/L Alkaline Phosphatase (38-126) U/L Total Protein (6.3-8.2) g/dL Albumin (3.5-5.0) g/dL Arterial Blood Potassium (3.4-4.5) mmol/L Arterial Blood Glucose (75-99) mg/dL Crossmatch 11/08/19 11/08/19 11/08/19 Range/Units 18:06 18:07 18:40 WBC (3.8-10.6) k/uL RBC 2.74 L (4.30-5.90) m/uL Hgb 8.6 L (13.0-17.5) gm/dL Hct 25.5 L (39.0-53.0) % Plt Count 85 L (150-450) k/uL Neutrophils # 8.6 H (1.3-7.7) k/uL Lymphocytes # 0.9 L (1.0-4.8) k/uL Monocytes # (0-1.0) k/uL PT (9.0-12.0) sec INR (<1.2) APTT (22.0-30.0) sec ABG pH (7.35-7.45) ABG pCO2 33 L (35-45) mmHg ABG pO2 115 H (83-108) mmHg ABG HCO3 (21-25) mmol/L ABG Total CO2 (19-24) mmol/L ABG O2 Saturation 98.6 H (94-97) % ABG Hematocrit (34.0-46.0) % ABG Potassium (3.4-4.5) mmol/L ABG Ionized Calcium (4.5-5.3) mg/dL ABG Glucose (75-99) mg/dL ABG Lactic Acid (0.5-1.6) mmol/L Hemoglobin (13.0-17.5) gm/dL Chloride (98-107) mmol/L Glucose (74-99) mg/dL POC Glucose (mg/dL) 179 H (75-99) mg/dL Calcium (8.4-10.2) mg/dL AST (17-59) U/L Alkaline Phosphatase (38-126) U/L Total Protein (6.3-8.2) g/dL Albumin (3.5-5.0) g/dL Arterial Blood Potassium (3.4-4.5) mmol/L Arterial Blood Glucose (75-99) mg/dL Crossmatch 11/08/19 11/08/19 11/08/19 Range/Units 18:57 20:15 20:15 WBC 10.7 H (3.8-10.6) k/uL RBC 2.69 L (4.30-5.90) m/uL Hgb 8.3 L (13.0-17.5) gm/dL Hct 25.0 L (39.0-53.0) % Plt Count 98 L (150-450) k/uL Neutrophils # 8.7 H (1.3-7.7) k/uL Lymphocytes # (1.0-4.8) k/uL Monocytes # (0-1.0) k/uL PT (9.0-12.0) sec INR (<1.2) APTT (22.0-30.0) sec ABG pH (7.35-7.45) ABG pCO2 (35-45) mmHg ABG pO2 (83-108) mmHg ABG HCO3 (21-25) mmol/L ABG Total CO2 (19-24) mmol/L ABG O2 Saturation (94-97) % ABG Hematocrit (34.0-46.0) % ABG Potassium (3.4-4.5) mmol/L ABG Ionized Calcium (4.5-5.3) mg/dL ABG Glucose (75-99) mg/dL ABG Lactic Acid (0.5-1.6) mmol/L Hemoglobin (13.0-17.5) gm/dL Chloride 109 H (98-107) mmol/L Glucose 147 H (74-99) mg/dL POC Glucose (mg/dL) 188 H (75-99) mg/dL Calcium 8.0 L (8.4-10.2) mg/dL AST (17-59) U/L Alkaline Phosphatase (38-126) U/L Total Protein (6.3-8.2) g/dL Albumin (3.5-5.0) g/dL Arterial Blood Potassium (3.4-4.5) mmol/L Arterial Blood Glucose (75-99) mg/dL Crossmatch 11/08/19 11/08/19 11/08/19 Range/Units 20:16 20:16 21:21 WBC (3.8-10.6) k/uL RBC (4.30-5.90) m/uL Hgb (13.0-17.5) gm/dL Hct (39.0-53.0) % Plt Count (150-450) k/uL Neutrophils # (1.3-7.7) k/uL Lymphocytes # (1.0-4.8) k/uL Monocytes # (0-1.0) k/uL PT (9.0-12.0) sec INR (<1.2) APTT (22.0-30.0) sec ABG pH (7.35-7.45) ABG pCO2 (35-45) mmHg ABG pO2 121 H (83-108) mmHg ABG HCO3 (21-25) mmol/L ABG Total CO2 25 H (19-24) mmol/L ABG O2 Saturation 98.5 H (94-97) % ABG Hematocrit (34.0-46.0) % ABG Potassium (3.4-4.5) mmol/L ABG Ionized Calcium (4.5-5.3) mg/dL ABG Glucose (75-99) mg/dL ABG Lactic Acid (0.5-1.6) mmol/L Hemoglobin (13.0-17.5) gm/dL Chloride (98-107) mmol/L Glucose (74-99) mg/dL POC Glucose (mg/dL) 155 H 156 H (75-99) mg/dL Calcium (8.4-10.2) mg/dL AST (17-59) U/L Alkaline Phosphatase (38-126) U/L Total Protein (6.3-8.2) g/dL Albumin (3.5-5.0) g/dL Arterial Blood Potassium (3.4-4.5) mmol/L Arterial Blood Glucose (75-99) mg/dL Crossmatch 11/08/19 11/09/19 11/09/19 Range/Units 22:43 00:05 01:00 WBC (3.8-10.6) k/uL RBC (4.30-5.90) m/uL Hgb (13.0-17.5) gm/dL Hct (39.0-53.0) % Plt Count (150-450) k/uL Neutrophils # (1.3-7.7) k/uL Lymphocytes # (1.0-4.8) k/uL Monocytes # (0-1.0) k/uL PT (9.0-12.0) sec INR (<1.2) APTT (22.0-30.0) sec ABG pH (7.35-7.45) ABG pCO2 (35-45) mmHg ABG pO2 (83-108) mmHg ABG HCO3 (21-25) mmol/L ABG Total CO2 (19-24) mmol/L ABG O2 Saturation (94-97) % ABG Hematocrit (34.0-46.0) % ABG Potassium (3.4-4.5) mmol/L ABG Ionized Calcium (4.5-5.3) mg/dL ABG Glucose (75-99) mg/dL ABG Lactic Acid (0.5-1.6) mmol/L Hemoglobin (13.0-17.5) gm/dL Chloride (98-107) mmol/L Glucose (74-99) mg/dL POC Glucose (mg/dL) 142 H 123 H 114 H (75-99) mg/dL Calcium (8.4-10.2) mg/dL AST (17-59) U/L Alkaline Phosphatase (38-126) U/L Total Protein (6.3-8.2) g/dL Albumin (3.5-5.0) g/dL Arterial Blood Potassium (3.4-4.5) mmol/L Arterial Blood Glucose (75-99) mg/dL Crossmatch 11/09/19 11/09/19 11/09/19 Range/Units 02:03 03:19 04:22 WBC 11.2 H (3.8-10.6) k/uL RBC 2.55 L (4.30-5.90) m/uL Hgb 7.9 L (13.0-17.5) gm/dL Hct 23.6 L (39.0-53.0) % Plt Count 102 L (150-450) k/uL Neutrophils # 8.7 H (1.3-7.7) k/uL Lymphocytes # (1.0-4.8) k/uL Monocytes # (0-1.0) k/uL PT (9.0-12.0) sec INR (<1.2) APTT (22.0-30.0) sec ABG pH (7.35-7.45) ABG pCO2 (35-45) mmHg ABG pO2 (83-108) mmHg ABG HCO3 (21-25) mmol/L ABG Total CO2 (19-24) mmol/L ABG O2 Saturation (94-97) % ABG Hematocrit (34.0-46.0) % ABG Potassium (3.4-4.5) mmol/L ABG Ionized Calcium (4.5-5.3) mg/dL ABG Glucose (75-99) mg/dL ABG Lactic Acid (0.5-1.6) mmol/L Hemoglobin (13.0-17.5) gm/dL Chloride (98-107) mmol/L Glucose (74-99) mg/dL POC Glucose (mg/dL) 135 H 127 H (75-99) mg/dL Calcium (8.4-10.2) mg/dL AST (17-59) U/L Alkaline Phosphatase (38-126) U/L Total Protein (6.3-8.2) g/dL Albumin (3.5-5.0) g/dL Arterial Blood Potassium (3.4-4.5) mmol/L Arterial Blood Glucose (75-99) mg/dL Crossmatch 11/09/19 11/09/19 11/09/19 Range/Units 04:22 04:25 05:11 WBC (3.8-10.6) k/uL RBC (4.30-5.90) m/uL Hgb (13.0-17.5) gm/dL Hct (39.0-53.0) % Plt Count (150-450) k/uL Neutrophils # (1.3-7.7) k/uL Lymphocytes # (1.0-4.8) k/uL Monocytes # (0-1.0) k/uL PT (9.0-12.0) sec INR (<1.2) APTT (22.0-30.0) sec ABG pH (7.35-7.45) ABG pCO2 (35-45) mmHg ABG pO2 (83-108) mmHg ABG HCO3 (21-25) mmol/L ABG Total CO2 (19-24) mmol/L ABG O2 Saturation (94-97) % ABG Hematocrit (34.0-46.0) % ABG Potassium (3.4-4.5) mmol/L ABG Ionized Calcium (4.5-5.3) mg/dL ABG Glucose (75-99) mg/dL ABG Lactic Acid (0.5-1.6) mmol/L Hemoglobin (13.0-17.5) gm/dL Chloride (98-107) mmol/L Glucose 106 H (74-99) mg/dL POC Glucose (mg/dL) 125 H 123 H (75-99) mg/dL Calcium 8.2 L (8.4-10.2) mg/dL AST 206 H (17-59) U/L Alkaline Phosphatase 34 L (38-126) U/L Total Protein 4.5 L (6.3-8.2) g/dL Albumin 2.9 L (3.5-5.0) g/dL Arterial Blood Potassium (3.4-4.5) mmol/L Arterial Blood Glucose (75-99) mg/dL Crossmatch - Imaging and Cardiology Chest x-ray: report reviewed, image reviewed Assessment and Plan Assessment: 1. Symptomatic multivessel coronary artery disease, recent non-STEMI, status post 5 vessel CABG 2. Leukocytosis, unknown origin, may be reactive, resolving 3. Previous stent placement to the proximal circumflex and ostial OM1 4. History of hypertension 5. History of hyperlipidemia 6. Chronic ongoing tobacco dependence 7. Mild COPD, preoperative FEV1 60% of predicted value 8. Right internal carotid artery stenosis 50-69% 9. History of peripheral arterial disease with previous arthrectomy and INFORMATICS MANAGER of the left SFA and atherectomy and INFORMATICS MANAGER of the left PRODUCTION CONTROL SUPERVISOR with stenting of the left BRIAN 10. Poorly controlled diabetes mellitus type 2, admission hemoglobin A1c 9.1% 11. History of bladder cancer status post radiation, chemotherapy treatment and bladder surgery 12. Occasional marijuana use 13. Medication noncompliance 14. Family history of early onset coronary artery disease 15. Postoperative acute blood loss anemia, expected Plan: 1. Continue aspirin, statin, Plavix, beta gaurav therapy. Will increase beta gaurav as tolerated 2. Continue Primacor for now, will re-add low-dose levo for blood pressure support 3. Will transition to oral Cardizem for radial artery support. Do not discontinue CCB without discussing with cardiothoracic surgery 4. Wean O2 as tolerated. Encourage incentive spirometry use 10 times every hour while awake. Bronchodilators per pulmonology. 5. Increase activity as tolerated. Up in chair for all meals, ambulate when able. PT/OT/cardiac rehab consulted 6. Will monitor daily labs and x-rays. Elective replacement per protocol. No transfusion at this point 7. Pain control with current medication regimen. Narcotics discontinued, Toradol added 8. GI/DVT prophylaxis 9. Insulin management per primary care service 10. Will keep all lines and tubes for now. May DC [place] later if able to get off levo and Primacor and stable 11. Reorient patient PRN 12. More recommendations to follow Time with Patient: Greater than 30
[2019-11-09 07:47] LABS: Glucose,Whole Blood 155 mg/dL (75-99)
[2019-11-09] MEDS: INSULIN REGULAR 100 UNIT in SODIUM CHLORIDE 0.9% 100 ML IV SCH (08:01)
[2019-11-09] MEDS: ATORVASTATIN 40 MG TAB PO SCH (08:56)
[2019-11-09] MEDS: ASPIRIN 325 MG TAB PO SCH (08:56)
[2019-11-09] MEDS: IPRATROPIUM-ALBUTEROL 3 ML NEB INHALATION SCH ×4 (08:56→21:34)
[2019-11-09] MEDS: ASCORBIC ACID 500 MG TAB PO SCH ×2 (08:56→17:30)
[2019-11-09] MEDS: FERROUS SULFATE 325 MG TAB PO SCH ×2 (08:56→17:30)
[2019-11-09] MEDS: CLOPIDOGREL 75 MG TAB PO SCH (08:56)
[2019-11-09] MEDS: METOPROLOL TARTRATE 12.5 MG TAB PO SCH ×2 (08:56→21:36)
[2019-11-09] MEDS ORDERED: MAGNESIUM HYDROXIDE 2,400 MG/10 ML CUP PO PRN (09:00)
[2019-11-09] MEDS ORDERED: PANTOPRAZOLE 40 MG/10 ML VIAL IVP SCH (09:00)
[2019-11-09] MEDS ORDERED: bisacodyL 10 MG SUPP RECTAL PRN (09:00)
[2019-11-09] MEDS ORDERED: METOPROLOL TARTRATE 12.5 MG TAB PO SCH (09:00)
[2019-11-09 09:11] LABS: Glucose,Whole Blood 176 mg/dL (75-99)
[2019-11-09 10:11] LABS: Glucose,Whole Blood 197 mg/dL (75-99)
--- NOTE | 2019-11-09 10:41 | PN ---
PROGRESS NOTE Mr. Reis is a gentleman who underwent aortocoronary bypass surgery yesterday performed by Dr. Hewitt. He has been extubated at about 8 pm. He looks very good this morning, but apparently had a bout of hypotension requiring IV fluids. He is looking comfortable. Denies any chest pain. Hemodynamically more stable after he received the IV fluids. He had significant triple-vessel disease with preserved LV function. He had a GR to LAD and a free left radial artery graft to the obtuse marginal and a saphenous vein graft to the PLV branch and another saphenous vein branch sequentially to the first and second diagonal branches. He also had ligation of left atrial appendage. He is comfortable resting, doing better denies chest pain. No blood pressure is about 108/70, pulse rate is 70, sinus. JVD is not evident. S1-S2 heard normally. Pericardial rub is audible. Lungs reveal fair air entry. Abdomen and lower extremity exam unchanged. Plan is to continue current medical regimen., incentive spirometry and pulmonary toilet. MMODL / IJN: [id number] /
[2019-11-09 11:12] LABS: Glucose,Whole Blood 186 mg/dL (75-99)
[2019-11-09] MEDS: MUPIROCIN 2% OINT 22 GM TUBE NASAL SCH ×2 (11:23→21:37)
[2019-11-09] MEDS: LACTATED RINGERS 1,000 ML IV SCH (11:24)
[2019-11-09] MEDS: DILTIAZEM ORAL 30 MG TAB PO SCH ×2 (11:26→17:31)
[2019-11-09] MEDS: NOREPINEPHRINE 4 MG in SODIUM CHLORIDE 0.9% 250 ML IV SCH (11:35)
[2019-11-09 12:12] LABS: Glucose,Whole Blood 168 mg/dL (75-99)
[2019-11-09] MEDS: MILRINONE-D5W PMX 20 MG in DEXTROSE/WATER 1 100ML.BAG IV SCH (12:14)
[2019-11-09] MEDS: KETOROLAC 30 MG/ML 1 ML VIAL IVP SCH ×2 (12:34→17:30)
--- NOTE | 2019-11-09 12:48 | P.PN ---
Subjective Patient is a [id number] male was recently discharged from the hospital came back in with the chest pain pressure-like sensation lasted for a few hours nonexertional did have elevated troponins. Patient had a triple-vessel disease patient is scheduled to undergo coronary artery bypass grafting on Friday went home started smoking again started having chest pain. Chest x-ray was read as pulmonary edema. It is not elevated patient clinically doesn't have any JVD or crackles or wheezing. 11/09/2019 Patient is status post CABG he was extubated the last night. Patient is presently on norepinephrine, milrinone, IV insulin. Patient still has a [place] in place most of the management is being done by cardiac thoracic surgery patient was bit confused earlier today doing well now. Review of systems: Unable to obtain as patient is tired and sleepy All inpatient medications were reviewed and appropriate changes in these medications as dictated in the interval history and assessment and plan. Objective - Vital Signs Vital signs: Vital Signs Temp 98.6 F 11/09/19 10:00 Pulse 78 11/09/19 11:00 Resp 22 11/09/19 11:00 BP 106/59 11/09/19 11:00 Pulse Ox 97 11/09/19 11:00 Intake & Output 11/08/19 11/09/19 11/09/19 18:59 06:59 18:59 Intake Total 4479.858 8874.001 806.517 Output Total 2953 1567 395 Balance -1854.716 -93.999 411.517 Weight 87 kg 87 kg Intake: IV 448 1359 685 Albumin Human 5% 250 ml 500 250 In Empty Bag 1 bag @ 250 mls/hr IVPB Q1HR PRN Rx#: [id number] Lactated Ringers 1,000 ml 250 550 240 @ 20 mls/hr IV .Q24H [facility] Rx#:[id number] Magnesium Sulfate-D5w Pmx 100 1 gm In Dextrose/Water 1 100ml.bag @ 100 mls/hr IVPB Q1H [facility] Rx#: [id number] cardiac output 120 210 50 pressure bag 45 99 45 Intake, IV Titration 30.284 114.001 101.517 Amount Diltiazem 125 mg In 72.583 33.083 Sodium Chloride 0.9% 100 ml @ 5 MG/HR 5 mls/hr IV .Q24H [facility] Rx#:[id number] Insulin Regular 100 unit 4.545 41.418 14.780 In Sodium Chloride 0.9% 100 ml @ Per Protocol IV .Q0M [facility] Rx#:[id number] Milrinone-D5w Pmx 20 mg 47.316 In Dextrose/Water 1 100ml .bag @ Per Protocol IV . Q0M [facility] Rx#:[id number] Norepinephrine 4 mg In 16.043 6.338 Sodium Chloride 0.9% 250 ml @ Titrate IV .Q0M [facility] Rx#:[id number] Propofol 1,000 mg In 9.696 Empty Bag 1 bag @ Titrate IV .Q0M [facility] Rx#: [id number] Oral 20 Blood Product 620 Rc As-1 Unit 310 [id number] Rc As-3 Unit 310 [id number] Output: Chest Tube Drainage 704 840 220 Mediastinal Chest Tube 510 320 50 Right and Left Pleural 194 520 170 Chest Tube Drainage 25 30 Left Calf 20 10 Left Wrist 5 20 Urine 749 702 145 Estimated Blood Loss 1500 Other: Voiding Method Indwelling Catheter Indwelling Catheter Indwelling Catheter ABP, PAP, CO, CI - Last Documented Arterial Blood Pressure 114/46 Pulmonary Artery Pressure 20/7 Cardiac Output 4.2 Cardiac Index 2.2 - Exam PHYSICAL EXAMINATION: GENERAL: The patient is alert and oriented x3, not in any acute distress. Well developed, well nourished. HEENT: Pupils are round and equally reacting to light. EOMI. No scleral icterus. No conjunctival pallor. Normocephalic, atraumatic. No pharyngeal erythema. No thyromegaly. CARDIOVASCULAR: S1 and S2 present. No murmurs, rubs, or gallops. She has 2 mediastinal and to left 2 pleural chest tubes. No much drainage since last night. PULMONARY: Chest is clear to auscultation, no wheezing or crackles. ABDOMEN: Soft, nontender, nondistended, normoactive bowel sounds. No palpable organomegaly. MUSCULOSKELETAL: No joint swelling or deformity. EXTREMITIES: No cyanosis, clubbing, or pedal edema. NEUROLOGICAL: Gross neurological examination did not reveal any focal deficits. SKIN: No rashes. - Labs CBC & Chem 7: 11/09/19 04:22 11/09/19 04:22 Labs: Abnormal Lab Results - Last 24 Hours (Table) 0711/08/19 11/08/19 Range/Units 06:04 08:40 10:24 WBC (3.8-10.6) k/uL RBC (4.30-5.90) m/uL Hgb (13.0-17.5) gm/dL Hct (39.0-53.0) % Plt Count (150-450) k/uL Neutrophils # (1.3-7.7) k/uL Lymphocytes # (1.0-4.8) k/uL Monocytes # (0-1.0) k/uL PT (9.0-12.0) sec INR (<1.2) APTT (22.0-30.0) sec ABG pH 7.33 L (7.35-7.45) ABG pCO2 46 H (35-45) mmHg ABG pO2 262 H 172 H (83-108) mmHg ABG HCO3 (21-25) mmol/L ABG Total CO2 25 H 26 H (19-24) mmol/L ABG O2 Saturation 99.8 H 99.1 H (94-97) % ABG Hematocrit (34.0-46.0) % ABG Potassium (3.4-4.5) mmol/L ABG Ionized Calcium (4.5-5.3) mg/dL ABG Glucose 165 H 162 H (75-99) mg/dL ABG Lactic Acid (0.5-1.6) mmol/L Hemoglobin 11.9 L 11.2 L (13.0-17.5) gm/dL Chloride (98-107) mmol/L Glucose (74-99) mg/dL POC Glucose (mg/dL) (75-99) mg/dL Calcium (8.4-10.2) mg/dL AST (17-59) U/L Alkaline Phosphatase (38-126) U/L Total Protein (6.3-8.2) g/dL Albumin (3.5-5.0) g/dL Arterial Blood Potassium (3.4-4.5) mmol/L Arterial Blood Glucose 165 H 162 H (75-99) mg/dL Crossmatch See Detail 11/08/19 11/08/19 11/08/19 Range/Units 11:08 11:33 11:58 WBC (3.8-10.6) k/uL RBC (4.30-5.90) m/uL Hgb (13.0-17.5) gm/dL Hct (39.0-53.0) % Plt Count (150-450) k/uL Neutrophils # (1.3-7.7) k/uL Lymphocytes # (1.0-4.8) k/uL Monocytes # (0-1.0) k/uL PT (9.0-12.0) sec INR (<1.2) APTT (22.0-30.0) sec ABG pH 7.25 L 7.34 L (7.35-7.45) ABG pCO2 (35-45) mmHg ABG pO2 >420 H 347 H 322 H (83-108) mmHg ABG HCO3 19 L (21-25) mmol/L ABG Total CO2 25 H (19-24) mmol/L ABG O2 Saturation 99.8 H 99.8 H 99.8 H (94-97) % ABG Hematocrit 23 L 21 L 22 L (34.0-46.0) % ABG Potassium 3.2 L 3.2 L (3.4-4.5) mmol/L ABG Ionized Calcium 4.4 L 4.3 L 4.0 L (4.5-5.3) mg/dL ABG Glucose 266 H 218 H 183 H (75-99) mg/dL ABG Lactic Acid 4.4 H* 4.8 H* 4.2 H* (0.5-1.6) mmol/L Hemoglobin 7.4 L 6.9 L* 7.1 L (13.0-17.5) gm/dL Chloride (98-107) mmol/L Glucose (74-99) mg/dL POC Glucose (mg/dL) (75-99) mg/dL Calcium (8.4-10.2) mg/dL AST (17-59) U/L Alkaline Phosphatase (38-126) U/L Total Protein (6.3-8.2) g/dL Albumin (3.5-5.0) g/dL Arterial Blood Potassium 3.2 L 3.2 L (3.4-4.5) mmol/L Arterial Blood Glucose 266 H 218 H 183 H (75-99) mg/dL Crossmatch 11/08/19 11/08/1920 Range/Units 12:36 13:00 13:35 WBC (3.8-10.6) k/uL RBC (4.30-5.90) m/uL Hgb (13.0-17.5) gm/dL Hct (39.0-53.0) % Plt Count (150-450) k/uL Neutrophils # (1.3-7.7) k/uL Lymphocytes # (1.0-4.8) k/uL Monocytes # (0-1.0) k/uL PT (9.0-12.0) sec INR (<1.2) APTT (22.0-30.0) sec ABG pH 7.33 L (7.35-7.45) ABG pCO2 47 H (35-45) mmHg ABG pO2 312 H 290 H 223 H (83-108) mmHg ABG HCO3 (21-25) mmol/L ABG Total CO2 26 H 26 H 26 H (19-24) mmol/L ABG O2 Saturation 99.9 H 99.7 H 99.5 H (94-97) % ABG Hematocrit 23 L 23 L 23 L (34.0-46.0) % ABG Potassium (3.4-4.5) mmol/L ABG Ionized Calcium 4.4 L 4.4 L (4.5-5.3) mg/dL ABG Glucose 170 H 159 H 137 H (75-99) mg/dL ABG Lactic Acid 3.7 H* 3.3 H* 2.6 H* (0.5-1.6) mmol/L Hemoglobin 7.4 L 7.4 L 7.4 L (13.0-17.5) gm/dL Chloride (98-107) mmol/L Glucose (74-99) mg/dL POC Glucose (mg/dL) (75-99) mg/dL Calcium (8.4-10.2) mg/dL AST (17-59) U/L Alkaline Phosphatase (38-126) U/L Total Protein (6.3-8.2) g/dL Albumin (3.5-5.0) g/dL Arterial Blood Potassium (3.4-4.5) mmol/L Arterial Blood Glucose 170 H 159 H 137 H (75-99) mg/dL Crossmatch 11/08/19 11/08/19 11/08/19 Range/Units 14:02 14:26 15:00 WBC 11.4 H (3.8-10.6) k/uL RBC 2.61 L (4.30-5.90) m/uL Hgb 8.2 L D (13.0-17.5) gm/dL Hct 24.7 L (39.0-53.0) % Plt Count 78 L D (150-450) k/uL Neutrophils # 8.6 H (1.3-7.7) k/uL Lymphocytes # (1.0-4.8) k/uL Monocytes # 1.1 H (0-1.0) k/uL PT (9.0-12.0) sec INR (<1.2) APTT (22.0-30.0) sec ABG pH 7.32 L (7.35-7.45) ABG pCO2 (35-45) mmHg ABG pO2 273 H 271 H (83-108) mmHg ABG HCO3 (21-25) mmol/L ABG Total CO2 25 H (19-24) mmol/L ABG O2 Saturation 99.8 H 99.7 H (94-97) % ABG Hematocrit 23 L 25 L (34.0-46.0) % ABG Potassium (3.4-4.5) mmol/L ABG Ionized Calcium 4.4 L 4.2 L (4.5-5.3) mg/dL ABG Glucose 131 H 115 H (75-99) mg/dL ABG Lactic Acid 2.9 H* 3.5 H* (0.5-1.6) mmol/L Hemoglobin 7.6 L 8.0 L (13.0-17.5) gm/dL Chloride (98-107) mmol/L Glucose (74-99) mg/dL POC Glucose (mg/dL) (75-99) mg/dL Calcium (8.4-10.2) mg/dL AST (17-59) U/L Alkaline Phosphatase (38-126) U/L Total Protein (6.3-8.2) g/dL Albumin (3.5-5.0) g/dL Arterial Blood Potassium (3.4-4.5) mmol/L Arterial Blood Glucose 131 H 115 H (75-99) mg/dL Crossmatch 11/08/19 11/08/19 11/08/19 Range/Units 15:00 15:00 15:04 WBC (3.8-10.6) k/uL RBC (4.30-5.90) m/uL Hgb (13.0-17.5) gm/dL Hct (39.0-53.0) % Plt Count (150-450) k/uL Neutrophils # (1.3-7.7) k/uL Lymphocytes # (1.0-4.8) k/uL Monocytes # (0-1.0) k/uL PT 14.0 H (9.0-12.0) sec INR 1.4 H (<1.2) APTT 92.5 H (22.0-30.0) sec ABG pH (7.35-7.45) ABG pCO2 (35-45) mmHg ABG pO2 (83-108) mmHg ABG HCO3 (21-25) mmol/L ABG Total CO2 (19-24) mmol/L ABG O2 Saturation (94-97) % ABG Hematocrit (34.0-46.0) % ABG Potassium (3.4-4.5) mmol/L ABG Ionized Calcium (4.5-5.3) mg/dL ABG Glucose (75-99) mg/dL ABG Lactic Acid (0.5-1.6) mmol/L Hemoglobin (13.0-17.5) gm/dL Chloride 109 H (98-107) mmol/L Glucose (74-99) mg/dL POC Glucose (mg/dL) 109 H (75-99) mg/dL Calcium 7.0 L (8.4-10.2) mg/dL AST 132 H (17-59) U/L Alkaline Phosphatase 25 L (38-126) U/L Total Protein 3.8 L (6.3-8.2) g/dL Albumin 2.5 L (3.5-5.0) g/dL Arterial Blood Potassium (3.4-4.5) mmol/L Arterial Blood Glucose (75-99) mg/dL Crossmatch 11/08/19 11/08/19 11/08/19 Range/Units 15:25 16:06 17:03 WBC (3.8-10.6) k/uL RBC (4.30-5.90) m/uL Hgb (13.0-17.5) gm/dL Hct (39.0-53.0) % Plt Count (150-450) k/uL Neutrophils # (1.3-7.7) k/uL Lymphocytes # (1.0-4.8) k/uL Monocytes # (0-1.0) k/uL PT (9.0-12.0) sec INR (<1.2) APTT (22.0-30.0) sec ABG pH 7.32 L (7.35-7.45) ABG pCO2 49 H (35-45) mmHg ABG pO2 226 H (83-108) mmHg ABG HCO3 (21-25) mmol/L ABG Total CO2 27 H (19-24) mmol/L ABG O2 Saturation 99.2 H (94-97) % ABG Hematocrit (34.0-46.0) % ABG Potassium (3.4-4.5) mmol/L ABG Ionized Calcium (4.5-5.3) mg/dL ABG Glucose (75-99) mg/dL ABG Lactic Acid (0.5-1.6) mmol/L Hemoglobin (13.0-17.5) gm/dL Chloride (98-107) mmol/L Glucose (74-99) mg/dL POC Glucose (mg/dL) 144 H 172 H (75-99) mg/dL Calcium (8.4-10.2) mg/dL AST (17-59) U/L Alkaline Phosphatase (38-126) U/L Total Protein (6.3-8.2) g/dL Albumin (3.5-5.0) g/dL Arterial Blood Potassium (3.4-4.5) mmol/L Arterial Blood Glucose (75-99) mg/dL Crossmatch 11/08/19 11/08/19 11/08/19 Range/Units 18:06 18:07 18:40 WBC (3.8-10.6) k/uL RBC 2.74 L (4.30-5.90) m/uL Hgb 8.6 L (13.0-17.5) gm/dL Hct 25.5 L (39.0-53.0) % Plt Count 85 L (150-450) k/uL Neutrophils # 8.6 H (1.3-7.7) k/uL Lymphocytes # 0.9 L (1.0-4.8) k/uL Monocytes # (0-1.0) k/uL PT (9.0-12.0) sec INR (<1.2) APTT (22.0-30.0) sec ABG pH (7.35-7.45) ABG pCO2 33 L (35-45) mmHg ABG pO2 115 H (83-108) mmHg ABG HCO3 (21-25) mmol/L ABG Total CO2 (19-24) mmol/L ABG O2 Saturation 98.6 H (94-97) % ABG Hematocrit (34.0-46.0) % ABG Potassium (3.4-4.5) mmol/L ABG Ionized Calcium (4.5-5.3) mg/dL ABG Glucose (75-99) mg/dL ABG Lactic Acid (0.5-1.6) mmol/L Hemoglobin (13.0-17.5) gm/dL Chloride (98-107) mmol/L Glucose (74-99) mg/dL POC Glucose (mg/dL) 179 H (75-99) mg/dL Calcium (8.4-10.2) mg/dL AST (17-59) U/L Alkaline Phosphatase (38-126) U/L Total Protein (6.3-8.2) g/dL Albumin (3.5-5.0) g/dL Arterial Blood Potassium (3.4-4.5) mmol/L Arterial Blood Glucose (75-99) mg/dL Crossmatch 11/08/19 11/08/19 11/08/19 Range/Units 18:57 20:15 20:15 WBC 10.7 H (3.8-10.6) k/uL RBC 2.69 L (4.30-5.90) m/uL Hgb 8.3 L (13.0-17.5) gm/dL Hct 25.0 L (39.0-53.0) % Plt Count 98 L (150-450) k/uL Neutrophils # 8.7 H (1.3-7.7) k/uL Lymphocytes # (1.0-4.8) k/uL Monocytes # (0-1.0) k/uL PT (9.0-12.0) sec INR (<1.2) APTT (22.0-30.0) sec ABG pH (7.35-7.45) ABG pCO2 (35-45) mmHg ABG pO2 (83-108) mmHg ABG HCO3 (21-25) mmol/L ABG Total CO2 (19-24) mmol/L ABG O2 Saturation (94-97) % ABG Hematocrit (34.0-46.0) % ABG Potassium (3.4-4.5) mmol/L ABG Ionized Calcium (4.5-5.3) mg/dL ABG Glucose (75-99) mg/dL ABG Lactic Acid (0.5-1.6) mmol/L Hemoglobin (13.0-17.5) gm/dL Chloride 109 H (98-107) mmol/L Glucose 147 H (74-99) mg/dL POC Glucose (mg/dL) 188 H (75-99) mg/dL Calcium 8.0 L (8.4-10.2) mg/dL AST (17-59) U/L Alkaline Phosphatase (38-126) U/L Total Protein (6.3-8.2) g/dL Albumin (3.5-5.0) g/dL Arterial Blood Potassium (3.4-4.5) mmol/L Arterial Blood Glucose (75-99) mg/dL Crossmatch 11/08/19 11/08/19 11/08/19 Range/Units 20:16 20:16 21:21 WBC (3.8-10.6) k/uL RBC (4.30-5.90) m/uL Hgb (13.0-17.5) gm/dL Hct (39.0-53.0) % Plt Count (150-450) k/uL Neutrophils # (1.3-7.7) k/uL Lymphocytes # (1.0-4.8) k/uL Monocytes # (0-1.0) k/uL PT (9.0-12.0) sec INR (<1.2) APTT (22.0-30.0) sec ABG pH (7.35-7.45) ABG pCO2 (35-45) mmHg ABG pO2 121 H (83-108) mmHg ABG HCO3 (21-25) mmol/L ABG Total CO2 25 H (19-24) mmol/L ABG O2 Saturation 98.5 H (94-97) % ABG Hematocrit (34.0-46.0) % ABG Potassium (3.4-4.5) mmol/L ABG Ionized Calcium (4.5-5.3) mg/dL ABG Glucose (75-99) mg/dL ABG Lactic Acid (0.5-1.6) mmol/L Hemoglobin (13.0-17.5) gm/dL Chloride (98-107) mmol/L Glucose (74-99) mg/dL POC Glucose (mg/dL) 155 H 156 H (75-99) mg/dL Calcium (8.4-10.2) mg/dL AST (17-59) U/L Alkaline Phosphatase (38-126) U/L Total Protein (6.3-8.2) g/dL Albumin (3.5-5.0) g/dL Arterial Blood Potassium (3.4-4.5) mmol/L Arterial Blood Glucose (75-99) mg/dL Crossmatch 11/08/19 11/09/19 11/09/19 Range/Units 22:43 00:05 01:00 WBC (3.8-10.6) k/uL RBC (4.30-5.90) m/uL Hgb (13.0-17.5) gm/dL Hct (39.0-53.0) % Plt Count (150-450) k/uL Neutrophils # (1.3-7.7) k/uL Lymphocytes # (1.0-4.8) k/uL Monocytes # (0-1.0) k/uL PT (9.0-12.0) sec INR (<1.2) APTT (22.0-30.0) sec ABG pH (7.35-7.45) ABG pCO2 (35-45) mmHg ABG pO2 (83-108) mmHg ABG HCO3 (21-25) mmol/L ABG Total CO2 (19-24) mmol/L ABG O2 Saturation (94-97) % ABG Hematocrit (34.0-46.0) % ABG Potassium (3.4-4.5) mmol/L ABG Ionized Calcium (4.5-5.3) mg/dL ABG Glucose (75-99) mg/dL ABG Lactic Acid (0.5-1.6) mmol/L Hemoglobin (13.0-17.5) gm/dL Chloride (98-107) mmol/L Glucose (74-99) mg/dL POC Glucose (mg/dL) 142 H 123 H 114 H (75-99) mg/dL Calcium (8.4-10.2) mg/dL AST (17-59) U/L Alkaline Phosphatase (38-126) U/L Total Protein (6.3-8.2) g/dL Albumin (3.5-5.0) g/dL Arterial Blood Potassium (3.4-4.5) mmol/L Arterial Blood Glucose (75-99) mg/dL Crossmatch 11/09/19 11/09/19 11/09/19 Range/Units 02:03 03:19 04:22 WBC 11.2 H (3.8-10.6) k/uL RBC 2.55 L (4.30-5.90) m/uL Hgb 7.9 L (13.0-17.5) gm/dL Hct 23.6 L (39.0-53.0) % Plt Count 102 L (150-450) k/uL Neutrophils # 8.7 H (1.3-7.7) k/uL Lymphocytes # (1.0-4.8) k/uL Monocytes # (0-1.0) k/uL PT (9.0-12.0) sec INR (<1.2) APTT (22.0-30.0) sec ABG pH (7.35-7.45) ABG pCO2 (35-45) mmHg ABG pO2 (83-108) mmHg ABG HCO3 (21-25) mmol/L ABG Total CO2 (19-24) mmol/L ABG O2 Saturation (94-97) % ABG Hematocrit (34.0-46.0) % ABG Potassium (3.4-4.5) mmol/L ABG Ionized Calcium (4.5-5.3) mg/dL ABG Glucose (75-99) mg/dL ABG Lactic Acid (0.5-1.6) mmol/L Hemoglobin (13.0-17.5) gm/dL Chloride (98-107) mmol/L Glucose (74-99) mg/dL POC Glucose (mg/dL) 135 H 127 H (75-99) mg/dL Calcium (8.4-10.2) mg/dL AST (17-59) U/L Alkaline Phosphatase (38-126) U/L Total Protein (6.3-8.2) g/dL Albumin (3.5-5.0) g/dL Arterial Blood Potassium (3.4-4.5) mmol/L Arterial Blood Glucose (75-99) mg/dL Crossmatch 11/09/19 11/09/19 11/09/19 Range/Units 04:22 04:25 05:11 WBC (3.8-10.6) k/uL RBC (4.30-5.90) m/uL Hgb (13.0-17.5) gm/dL Hct (39.0-53.0) % Plt Count (150-450) k/uL Neutrophils # (1.3-7.7) k/uL Lymphocytes # (1.0-4.8) k/uL Monocytes # (0-1.0) k/uL PT (9.0-12.0) sec INR (<1.2) APTT (22.0-30.0) sec ABG pH (7.35-7.45) ABG pCO2 (35-45) mmHg ABG pO2 (83-108) mmHg ABG HCO3 (21-25) mmol/L ABG Total CO2 (19-24) mmol/L ABG O2 Saturation (94-97) % ABG Hematocrit (34.0-46.0) % ABG Potassium (3.4-4.5) mmol/L ABG Ionized Calcium (4.5-5.3) mg/dL ABG Glucose (75-99) mg/dL ABG Lactic Acid (0.5-1.6) mmol/L Hemoglobin (13.0-17.5) gm/dL Chloride (98-107) mmol/L Glucose 106 H (74-99) mg/dL POC Glucose (mg/dL) 125 H 123 H (75-99) mg/dL Calcium 8.2 L (8.4-10.2) mg/dL AST 206 H (17-59) U/L Alkaline Phosphatase 34 L (38-126) U/L Total Protein 4.5 L (6.3-8.2) g/dL Albumin 2.9 L (3.5-5.0) g/dL Arterial Blood Potassium (3.4-4.5) mmol/L Arterial Blood Glucose (75-99) mg/dL Crossmatch 11/09/19 11/09/19 11/09/19 Range/Units 07:45 09:10 10:09 WBC (3.8-10.6) k/uL RBC (4.30-5.90) m/uL Hgb (13.0-17.5) gm/dL Hct (39.0-53.0) % Plt Count (150-450) k/uL Neutrophils # (1.3-7.7) k/uL Lymphocytes # (1.0-4.8) k/uL Monocytes # (0-1.0) k/uL PT (9.0-12.0) sec INR (<1.2) APTT (22.0-30.0) sec ABG pH (7.35-7.45) ABG pCO2 (35-45) mmHg ABG pO2 (83-108) mmHg ABG HCO3 (21-25) mmol/L ABG Total CO2 (19-24) mmol/L ABG O2 Saturation (94-97) % ABG Hematocrit (34.0-46.0) % ABG Potassium (3.4-4.5) mmol/L ABG Ionized Calcium (4.5-5.3) mg/dL ABG Glucose (75-99) mg/dL ABG Lactic Acid (0.5-1.6) mmol/L Hemoglobin (13.0-17.5) gm/dL Chloride (98-107) mmol/L Glucose (74-99) mg/dL POC Glucose (mg/dL) 155 H 176 H 197 H (75-99) mg/dL Calcium (8.4-10.2) mg/dL AST (17-59) U/L Alkaline Phosphatase (38-126) U/L Total Protein (6.3-8.2) g/dL Albumin (3.5-5.0) g/dL Arterial Blood Potassium (3.4-4.5) mmol/L Arterial Blood Glucose (75-99) mg/dL Crossmatch 11/09/19 11/09/19 Range/Units 11:12 12:11 WBC (3.8-10.6) k/uL RBC (4.30-5.90) m/uL Hgb (13.0-17.5) gm/dL Hct (39.0-53.0) % Plt Count (150-450) k/uL Neutrophils # (1.3-7.7) k/uL Lymphocytes # (1.0-4.8) k/uL Monocytes # (0-1.0) k/uL PT (9.0-12.0) sec INR (<1.2) APTT (22.0-30.0) sec ABG pH (7.35-7.45) ABG pCO2 (35-45) mmHg ABG pO2 (83-108) mmHg ABG HCO3 (21-25) mmol/L ABG Total CO2 (19-24) mmol/L ABG O2 Saturation (94-97) % ABG Hematocrit (34.0-46.0) % ABG Potassium (3.4-4.5) mmol/L ABG Ionized Calcium (4.5-5.3) mg/dL ABG Glucose (75-99) mg/dL ABG Lactic Acid (0.5-1.6) mmol/L Hemoglobin (13.0-17.5) gm/dL Chloride (98-107) mmol/L Glucose (74-99) mg/dL POC Glucose (mg/dL) 186 H 168 H (75-99) mg/dL Calcium (8.4-10.2) mg/dL AST (17-59) U/L Alkaline Phosphatase (38-126) U/L Total Protein (6.3-8.2) g/dL Albumin (3.5-5.0) g/dL Arterial Blood Potassium (3.4-4.5) mmol/L Arterial Blood Glucose (75-99) mg/dL Crossmatch Assessment and Plan Plan: -Acute non-ST elevation microinfarction: Coronary artery diseasepatient is status post five-vessel coronary artery bypass grafting, patient is presently on aspirin and statin beta gaurav Primacor -Leukocytosis reactive is not requiring any medications -Hypertension -Hyperlipidemia -Type 2 diabetes mellitus patient is presently on IV insulin drip. -COPD without any acute exacerbation -Severe peripheral vascular disease -History of bladder cancer status post chemotherapy and radiation -Continued nicotine use and marijuana use: Counseling was provided Rafiq of extensive counseling during his last hospitalization patient still smoked.
[2019-11-09 13:08] LABS: Glucose,Whole Blood 144 mg/dL (75-99)
[2019-11-09 14:01] LABS: Glucose,Whole Blood 146 mg/dL (75-99)
--- NOTE | 2019-11-09 14:14 | P.PN ---
Subjective Progress Note Date: 11/09/19 This is a 64-year-old male patient with coronary artery disease, noncompliant to medication. The patient came in with subendocardial infarction and cardiac catheterization showed diffuse coronary artery disease with critical stenosis. The patient underwent coronary artery bypass today. The patient underwent bypass 5 with GR to LAD, radial artery graft to acute marginal, saphenous finger after 2 posterior lateral and sick ration saphenous vein to first and second diagonal performed on cardiac pulmonary bypass with beating heart. Left atrial appendage was also added. The patient currently is in the intensive care unit. I centimeters in regards to the ICU. He was initially on a SIMV mode of ventilation at the rate of 12 with a tidal volume of 500 and FiO2 of 100% with a PEEP of 5 and a pressure support of 5. The blood gas showed a pH of 7.318 with a pCO2 of 49 and pO2 of 226. The chest x-ray postop showed volume overload with pulmonary vascular congestion and interstitial edema. The lines and tubes are all in good location. Based on all this, I increased the respiratory rate of 24. I do not FiO2 down to 60%. Current cardiac output is at 2.6 with an index of 5. The patient has 2 mediastinal 1 right pleural and 1 left pleural chest tube. Ultrasound of the sternal chest tubes has been around 150 mL since he arrived from the operating room. No evidence of any air leak. The patient is currently on a Cardizem drip and milrinone drip and the patient is on insulin drip for blood sugar control.he is well sedated. Is quite symptoms with the mechanical ventilator. Postoperative hemoglobin is at 8.2. Platelet count is down to 78. On today's evaluation of 11/09/2019, I'm seeing the patient for a follow-up. The patient was operated on yesterday and the patient underwent a five-vessel bypass surgery including a GR and the radial artery harvest. The patient was extubated within 6 hours and currently the patient is on oxygen by nasal cannula at 5 L. He is pleasantly confused this morning. He is able to sit up on a recliner. Hemodynamically, he did have some early of hypotension earlier this morning and for that reason the patient was given 750 mL of colloids and following that he was started on low-dose levo fed at 0.03 g per KG per minute. The patient remains on Primacor running at 0.125 g and the patient is also on Cardizem at 5 mg an hour. Insulin drip is running at 2.5 units an hour. Hemodynamically, the patient's cardiac output is at 4.2 with an index of 2.2. The pulmonary artery pressure 28/12. CVP is at 11. Cardiac output is at 4.2. He is in his normal sinus rhythm. He has a backup VVI at the rate of 50. His chest x-rays showing small bilateral apical pneumothoraces. All of the chest tubes are in good location. The right and left pleural chest tube connected and they have drained approximately 130 mL over the past 8 hours. He is tender tubes are also connected and it has drained approximately 140 mL over the past 8 hours. The patient otherwise has no specific complaints. Sternum stable clean and intact. He is producing urine output in the order of 20-30 mL an hour. No other significant events overnight. Hemoglobin stable at 7.9. The platelet count improved to 102. Objective - Vital Signs Vital signs: Vital Signs Temp 98.6 F 11/09/19 10:00 Pulse 95 11/09/19 13:10 Resp 17 11/09/19 12:00 BP 104/64 11/09/19 12:00 Pulse Ox 98 11/09/19 12:00 Intake & Output 11/08/19 11/09/19 11/09/19 18:59 06:59 18:59 Intake Total 6985.217 8206.001 897.756 Output Total 2953 1567 440 Balance -1854.716 -93.999 457.756 Weight 87 kg 87 kg Intake: IV 448 1359 774 Albumin Human 5% 250 ml 500 250 In Empty Bag 1 bag @ 250 mls/hr IVPB Q1HR PRN Rx#: [id number] Lactated Ringers 1,000 ml 250 550 290 @ 20 mls/hr IV .Q24H [facility] Rx#:[id number] Magnesium Sulfate-D5w Pmx 100 1 gm In Dextrose/Water 1 100ml.bag @ 100 mls/hr IVPB Q1H [facility] Rx#: [id number] cardiac output 120 210 80 pressure bag 45 99 54 Intake, IV Titration 30.284 114.001 103.756 Amount Diltiazem 125 mg In 72.583 33.083 Sodium Chloride 0.9% 100 ml @ 5 MG/HR 5 mls/hr IV .Q24H [facility] Rx#:[id number] Insulin Regular 100 unit 4.545 41.418 17.019 In Sodium Chloride 0.9% 100 ml @ Per Protocol IV .Q0M [facility] Rx#:[id number] Milrinone-D5w Pmx 20 mg 47.316 In Dextrose/Water 1 100ml .bag @ Per Protocol IV . Q0M [facility] Rx#:[id number] Norepinephrine 4 mg In 16.043 6.338 Sodium Chloride 0.9% 250 ml @ Titrate IV .Q0M [facility] Rx#:[id number] Propofol 1,000 mg In 9.696 Empty Bag 1 bag @ Titrate IV .Q0M [facility] Rx#: [id number] Oral 20 Blood Product 620 As-1 Unit 310 [id number] Rc As-3 Unit 310 [id number] Output: Chest Tube Drainage 704 840 250 Mediastinal Chest Tube 510 320 60 Right and Left Pleural 194 520 190 Chest Tube Drainage 25 30 Left Calf 20 10 Left Wrist 5 20 Urine 749 702 160 Estimated Blood Loss 1500 Other: Voiding Method Indwelling Catheter Indwelling Catheter Indwelling Catheter ABP, PAP, CO, CI - Last Documented Arterial Blood Pressure 110/41 Pulmonary Artery Pressure 20/8 Cardiac Output 3.7 Cardiac Index 19 - Exam - Constitutional General appearance: Present: cooperative, no acute distress - Respiratory Details: Lungs sounds diminished bilaterally. Respirations even, nonlabored. Currently on 3 L nasal cannula with oxygen saturation 97%. Able to achieve 750 mL on his incentive spirometry. Mediastinal chest tubes present to continuous wall suction, 140 mL serosanguineous drainage overnight, 850 mL since surgery. Right/left pleural chest tubes present to continuous wall suction, 340 mL serosanguineous drainage overnight, 750 mL since surgery. No air leaks present. - Cardiovascular Details: S1, S2 present. Regular rate and rhythm, sinus rhythm with occasional PVCs with rate 90s to low 100s. Sternum stable. A/V epicardial pacemaker wires present, connected to generator, VVI mode with backup rate 50 bpm. Palpable peripheral pulses bilaterally. No edema present. No calf pain or tenderness noted. Right internal jugular Shanks/Cordis, right radial arterial line present. Last CO/CI 3.6/1.8, previous CO/CI 4.2/2.2. Heart hugger in place without patient demonstrating appropriate use. Antiembolism stockings, SCDs present. - Gastrointestinal Gastrointestinal Comment(s): Abdomen soft, nontender, nondistended. Hypoactive bowel sounds present 4 quadrants. Tolerating ice chips. Negative flatus. - Genitourinary Genitourinary Comment(s): Junior present draining clear, yellow urine. Output 75 mL/hr down to 30 mL/h, back up to 75 mL per hour this morning, last hour 10 mL. - Integumentary Integumentary Comment(s): Skin is warm and dry with evidence of good perfusion. Anterior chest incision well approximated and covered with dry intact dressing. Left radial artery harvest site well approximated, dressing clean dry and intact, ALYX drain present with minimal drainage. Patient has feeling in his left hand and can move all fingers appropriately with good cap refill. Left lower extremity EVH site well approximated without drainage, ALYX drain present with minimal drainage. - Neurologic Neurologic: Present: CNII-XII intact - Musculoskeletal Musculoskeletal: Present: generalized weakness, strength equal bilaterally - Psychiatric Psychiatric Comment(s): Oriented to person only, thinks it is 2016 and cannot tell me he is in the hospital or that he had open-heart surgery. He is following some commands. Sleepy but does arouse to voice. - Labs CBC & Chem 7: 11/09/19 04:22 11/09/19 04:22 Labs: Abnormal Lab Results - Last 24 Hours (Table) 11/07/19 11/08/19 11/08/19 Range/Units 06:04 13:00 13:35 WBC (3.8-10.6) k/uL RBC (4.30-5.90) m/uL Hgb (13.0-17.5) gm/dL Hct (39.0-53.0) % Plt Count (150-450) k/uL Neutrophils # (1.3-7.7) k/uL Lymphocytes # (1.0-4.8) k/uL Monocytes # (0-1.0) k/uL PT (9.0-12.0) sec INR (<1.2) APTT (22.0-30.0) sec ABG pH 7.33 L (7.35-7.45) ABG pCO2 47 H (35-45) mmHg ABG pO2 290 H 223 H (83-108) mmHg ABG Total CO2 26 H 26 H (19-24) mmol/L ABG O2 Saturation 99.7 H 99.5 H (94-97) % ABG Hematocrit 23 L 23 L (34.0-46.0) % ABG Ionized Calcium 4.4 L (4.5-5.3) mg/dL ABG Glucose 159 H 137 H (75-99) mg/dL ABG Lactic Acid 3.3 H* 2.6 H* (0.5-1.6) mmol/L Hemoglobin 7.4 L 7.4 L (13.0-17.5) gm/dL Chloride (98-107) mmol/L Glucose (74-99) mg/dL POC Glucose (mg/dL) (75-99) mg/dL Calcium (8.4-10.2) mg/dL AST (17-59) U/L Alkaline Phosphatase (38-126) U/L Total Protein (6.3-8.2) g/dL Albumin (3.5-5.0) g/dL Arterial Blood Glucose 159 H 137 H (75-99) mg/dL Crossmatch See Detail 11/08/19 11/08/19 11/08/19 Range/Units 14:02 14:26 15:00 WBC 11.4 H (3.8-10.6) k/uL RBC 2.61 L (4.30-5.90) m/uL Hgb 8.2 L D (13.0-17.5) gm/dL Hct 24.7 L (39.0-53.0) % Plt Count 78 L D (150-450) k/uL Neutrophils # 8.6 H (1.3-7.7) k/uL Lymphocytes # (1.0-4.8) k/uL Monocytes # 1.1 H (0-1.0) k/uL PT (9.0-12.0) sec INR (<1.2) APTT (22.0-30.0) sec ABG pH 7.32 L (7.35-7.45) ABG pCO2 (35-45) mmHg ABG pO2 273 H 271 H (83-108) mmHg ABG Total CO2 25 H (19-24) mmol/L ABG O2 Saturation 99.8 H 99.7 H (94-97) % ABG Hematocrit 23 L 25 L (34.0-46.0) % ABG Ionized Calcium 4.4 L 4.2 L (4.5-5.3) mg/dL ABG Glucose 131 H 115 H (75-99) mg/dL ABG Lactic Acid 2.9 H* 3.5 H* (0.5-1.6) mmol/L Hemoglobin 7.6 L 8.0 L (13.0-17.5) gm/dL Chloride (98-107) mmol/L Glucose (74-99) mg/dL POC Glucose (mg/dL) (75-99) mg/dL Calcium (8.4-10.2) mg/dL AST (17-59) U/L Alkaline Phosphatase (38-126) U/L Total Protein (6.3-8.2) g/dL Albumin (3.5-5.0) g/dL Arterial Blood Glucose 131 H 115 H (75-99) mg/dL Crossmatch 11/08/19 11/08/19 11/08/19 Range/Units 15:00 15:00 15:04 WBC (3.8-10.6) k/uL RBC (4.30-5.90) m/uL Hgb (13.0-17.5) gm/dL Hct (39.0-53.0) % Plt Count (150-450) k/uL Neutrophils # (1.3-7.7) k/uL Lymphocytes # (1.0-4.8) k/uL Monocytes # (0-1.0) k/uL PT 14.0 H (9.0-12.0) sec INR 1.4 H (<1.2) APTT 92.5 H (22.0-30.0) sec ABG pH (7.35-7.45) ABG pCO2 (35-45) mmHg ABG pO2 (83-108) mmHg ABG Total CO2 (19-24) mmol/L ABG O2 Saturation (94-97) % ABG Hematocrit (34.0-46.0) % ABG Ionized Calcium (4.5-5.3) mg/dL ABG Glucose (75-99) mg/dL ABG Lactic Acid (0.5-1.6) mmol/L Hemoglobin (13.0-17.5) gm/dL Chloride 109 H (98-107) mmol/L Glucose (74-99) mg/dL POC Glucose (mg/dL) 109 H (75-99) mg/dL Calcium 7.0 L (8.4-10.2) mg/dL AST 132 H (17-59) U/L Alkaline Phosphatase 25 L (38-126) U/L Total Protein 3.8 L (6.3-8.2) g/dL Albumin 2.5 L (3.5-5.0) g/dL Arterial Blood Glucose (75-99) mg/dL Crossmatch 11/08/19 11/08/19 11/08/19 Range/Units 15:25 16:06 17:03 WBC (3.8-10.6) k/uL RBC (4.30-5.90) m/uL Hgb (13.0-17.5) gm/dL Hct (39.0-53.0) % Plt Count (150-450) k/uL Neutrophils # (1.3-7.7) k/uL Lymphocytes # (1.0-4.8) k/uL Monocytes # (0-1.0) k/uL PT (9.0-12.0) sec INR (<1.2) APTT (22.0-30.0) sec ABG pH 7.32 L (7.35-7.45) ABG pCO2 49 H (35-45) mmHg ABG pO2 226 H (83-108) mmHg ABG Total CO2 27 H (19-24) mmol/L ABG O2 Saturation 99.2 H (94-97) % ABG Hematocrit (34.0-46.0) % ABG Ionized Calcium (4.5-5.3) mg/dL ABG Glucose (75-99) mg/dL ABG Lactic Acid (0.5-1.6) mmol/L Hemoglobin (13.0-17.5) gm/dL Chloride (98-107) mmol/L Glucose (74-99) mg/dL POC Glucose (mg/dL) 144 H 172 H (75-99) mg/dL Calcium (8.4-10.2) mg/dL AST (17-59) U/L Alkaline Phosphatase (38-126) U/L Total Protein (6.3-8.2) g/dL Albumin (3.5-5.0) g/dL Arterial Blood Glucose (75-99) mg/dL Crossmatch 11/08/19 11/08/19 11/08/19 Range/Units 18:06 18:07 18:40 WBC (3.8-10.6) k/uL RBC 2.74 L (4.30-5.90) m/uL Hgb 8.6 L (13.0-17.5) gm/dL Hct 25.5 L (39.0-53.0) % Plt Count 85 L (150-450) k/uL Neutrophils # 8.6 H (1.3-7.7) k/uL Lymphocytes # 0.9 L (1.0-4.8) k/uL Monocytes # (0-1.0) k/uL PT (9.0-12.0) sec INR (<1.2) APTT (22.0-30.0) sec ABG pH (7.35-7.45) ABG pCO2 33 L (35-45) mmHg ABG pO2 115 H (83-108) mmHg ABG Total CO2 (19-24) mmol/L ABG O2 Saturation 98.6 H (94-97) % ABG Hematocrit (34.0-46.0) % ABG Ionized Calcium (4.5-5.3) mg/dL ABG Glucose (75-99) mg/dL ABG Lactic Acid (0.5-1.6) mmol/L Hemoglobin (13.0-17.5) gm/dL Chloride (98-107) mmol/L Glucose (74-99) mg/dL POC Glucose (mg/dL) 179 H (75-99) mg/dL Calcium (8.4-10.2) mg/dL AST (17-59) U/L Alkaline Phosphatase (38-126) U/L Total Protein (6.3-8.2) g/dL Albumin (3.5-5.0) g/dL Arterial Blood Glucose (75-99) mg/dL Crossmatch 11/08/19 11/08/19 11/08/19 Range/Units 18:57 20:15 20:15 WBC 10.7 H (3.8-10.6) k/uL RBC 2.69 L (4.30-5.90) m/uL Hgb 8.3 L (13.0-17.5) gm/dL Hct 25.0 L (39.0-53.0) % Plt Count 98 L (150-450) k/uL Neutrophils # 8.7 H (1.3-7.7) k/uL Lymphocytes # (1.0-4.8) k/uL Monocytes # (0-1.0) k/uL PT (9.0-12.0) sec INR (<1.2) APTT (22.0-30.0) sec ABG pH (7.35-7.45) ABG pCO2 (35-45) mmHg ABG pO2 (83-108) mmHg ABG Total CO2 (19-24) mmol/L ABG O2 Saturation (94-97) % ABG Hematocrit (34.0-46.0) % ABG Ionized Calcium (4.5-5.3) mg/dL ABG Glucose (75-99) mg/dL ABG Lactic Acid (0.5-1.6) mmol/L Hemoglobin (13.0-17.5) gm/dL Chloride 109 H (98-107) mmol/L Glucose 147 H (74-99) mg/dL POC Glucose (mg/dL) 188 H (75-99) mg/dL Calcium 8.0 L (8.4-10.2) mg/dL AST (17-59) U/L Alkaline Phosphatase (38-126) U/L Total Protein (6.3-8.2) g/dL Albumin (3.5-5.0) g/dL Arterial Blood Glucose (75-99) mg/dL Crossmatch 11/08/19 11/08/19 11/08/19 Range/Units 20:16 20:16 21:21 WBC (3.8-10.6) k/uL RBC (4.30-5.90) m/uL Hgb (13.0-17.5) gm/dL Hct (39.0-53.0) % Plt Count (150-450) k/uL Neutrophils # (1.3-7.7) k/uL Lymphocytes # (1.0-4.8) k/uL Monocytes # (0-1.0) k/uL PT (9.0-12.0) sec INR (<1.2) APTT (22.0-30.0) sec ABG pH (7.35-7.45) ABG pCO2 (35-45) mmHg ABG pO2 121 H (83-108) mmHg ABG Total CO2 25 H (19-24) mmol/L ABG O2 Saturation 98.5 H (94-97) % ABG Hematocrit (34.0-46.0) % ABG Ionized Calcium (4.5-5.3) mg/dL ABG Glucose (75-99) mg/dL ABG Lactic Acid (0.5-1.6) mmol/L Hemoglobin (13.0-17.5) gm/dL Chloride (98-107) mmol/L Glucose (74-99) mg/dL POC Glucose (mg/dL) 155 H 156 H (75-99) mg/dL Calcium (8.4-10.2) mg/dL AST (17-59) U/L Alkaline Phosphatase (38-126) U/L Total Protein (6.3-8.2) g/dL Albumin (3.5-5.0) g/dL Arterial Blood Glucose (75-99) mg/dL Crossmatch 11/08/19 11/09/19 11/09/19 Range/Units 22:43 00:05 01:00 WBC (3.8-10.6) k/uL RBC (4.30-5.90) m/uL Hgb (13.0-17.5) gm/dL Hct (39.0-53.0) % Plt Count (150-450) k/uL Neutrophils # (1.3-7.7) k/uL Lymphocytes # (1.0-4.8) k/uL Monocytes # (0-1.0) k/uL PT (9.0-12.0) sec INR (<1.2) APTT (22.0-30.0) sec ABG pH (7.35-7.45) ABG pCO2 (35-45) mmHg ABG pO2 (83-108) mmHg ABG Total CO2 (19-24) mmol/L ABG O2 Saturation (94-97) % ABG Hematocrit (34.0-46.0) % ABG Ionized Calcium (4.5-5.3) mg/dL ABG Glucose (75-99) mg/dL ABG Lactic Acid (0.5-1.6) mmol/L Hemoglobin (13.0-17.5) gm/dL Chloride (98-107) mmol/L Glucose (74-99) mg/dL POC Glucose (mg/dL) 142 H 123 H 114 H (75-99) mg/dL Calcium (8.4-10.2) mg/dL AST (17-59) U/L Alkaline Phosphatase (38-126) U/L Total Protein (6.3-8.2) g/dL Albumin (3.5-5.0) g/dL Arterial Blood Glucose (75-99) mg/dL Crossmatch 11/09/19 11/09/19 11/09/19 Range/Units 02:03 03:19 04:22 WBC 11.2 H (3.8-10.6) k/uL RBC 2.55 L (4.30-5.90) m/uL Hgb 7.9 L (13.0-17.5) gm/dL Hct 23.6 L (39.0-53.0) % Plt Count 102 L (150-450) k/uL Neutrophils # 8.7 H (1.3-7.7) k/uL Lymphocytes # (1.0-4.8) k/uL Monocytes # (0-1.0) k/uL PT (9.0-12.0) sec INR (<1.2) APTT (22.0-30.0) sec ABG pH (7.35-7.45) ABG pCO2 (35-45) mmHg ABG pO2 (83-108) mmHg ABG Total CO2 (19-24) mmol/L ABG O2 Saturation (94-97) % ABG Hematocrit (34.0-46.0) % ABG Ionized Calcium (4.5-5.3) mg/dL ABG Glucose (75-99) mg/dL ABG Lactic Acid (0.5-1.6) mmol/L Hemoglobin (13.0-17.5) gm/dL Chloride (98-107) mmol/L Glucose (74-99) mg/dL POC Glucose (mg/dL) 135 H 127 H (75-99) mg/dL Calcium (8.4-10.2) mg/dL AST (17-59) U/L Alkaline Phosphatase (38-126) U/L Total Protein (6.3-8.2) g/dL Albumin (3.5-5.0) g/dL Arterial Blood Glucose (75-99) mg/dL Crossmatch 11/09/19 11/09/19 11/09/19 Range/Units 04:22 04:25 05:11 WBC (3.8-10.6) k/uL RBC (4.30-5.90) m/uL Hgb (13.0-17.5) gm/dL Hct (39.0-53.0) % Plt Count (150-450) k/uL Neutrophils # (1.3-7.7) k/uL Lymphocytes # (1.0-4.8) k/uL Monocytes # (0-1.0) k/uL PT (9.0-12.0) sec INR (<1.2) APTT (22.0-30.0) sec ABG pH (7.35-7.45) ABG pCO2 (35-45) mmHg ABG pO2 (83-108) mmHg ABG Total CO2 (19-24) mmol/L ABG O2 Saturation (94-97) % ABG Hematocrit (34.0-46.0) % ABG Ionized Calcium (4.5-5.3) mg/dL ABG Glucose (75-99) mg/dL ABG Lactic Acid (0.5-1.6) mmol/L Hemoglobin (13.0-17.5) gm/dL Chloride (98-107) mmol/L Glucose 106 H (74-99) mg/dL POC Glucose (mg/dL) 125 H 123 H (75-99) mg/dL Calcium 8.2 L (8.4-10.2) mg/dL AST 206 H (17-59) U/L Alkaline Phosphatase 34 L (38-126) U/L Total Protein 4.5 L (6.3-8.2) g/dL Albumin 2.9 L (3.5-5.0) g/dL Arterial Blood Glucose (75-99) mg/dL Crossmatch 11/09/19 11/09/19 11/09/19 Range/Units 07:45 09:10 10:09 WBC (3.8-10.6) k/uL RBC (4.30-5.90) m/uL Hgb (13.0-17.5) gm/dL Hct (39.0-53.0) % Plt Count (150-450) k/uL Neutrophils # (1.3-7.7) k/uL Lymphocytes # (1.0-4.8) k/uL Monocytes # (0-1.0) k/uL PT (9.0-12.0) sec INR (<1.2) APTT (22.0-30.0) sec ABG pH (7.35-7.45) ABG pCO2 (35-45) mmHg ABG pO2 (83-108) mmHg ABG Total CO2 (19-24) mmol/L ABG O2 Saturation (94-97) % ABG Hematocrit (34.0-46.0) % ABG Ionized Calcium (4.5-5.3) mg/dL ABG Glucose (75-99) mg/dL ABG Lactic Acid (0.5-1.6) mmol/L Hemoglobin (13.0-17.5) gm/dL Chloride (98-107) mmol/L Glucose (74-99) mg/dL POC Glucose (mg/dL) 155 H 176 H 197 H (75-99) mg/dL Calcium (8.4-10.2) mg/dL AST (17-59) U/L Alkaline Phosphatase (38-126) U/L Total Protein (6.3-8.2) g/dL Albumin (3.5-5.0) g/dL Arterial Blood Glucose (75-99) mg/dL Crossmatch 11/09/19 11/09/19 11/09/19 Range/Units 11:12 12:11 13:06 WBC (3.8-10.6) k/uL RBC (4.30-5.90) m/uL Hgb (13.0-17.5) gm/dL Hct (39.0-53.0) % Plt Count (150-450) k/uL Neutrophils # (1.3-7.7) k/uL Lymphocytes # (1.0-4.8) k/uL Monocytes # (0-1.0) k/uL PT (9.0-12.0) sec INR (<1.2) APTT (22.0-30.0) sec ABG pH (7.35-7.45) ABG pCO2 (35-45) mmHg ABG pO2 (83-108) mmHg ABG Total CO2 (19-24) mmol/L ABG O2 Saturation (94-97) % ABG Hematocrit (34.0-46.0) % ABG Ionized Calcium (4.5-5.3) mg/dL ABG Glucose (75-99) mg/dL ABG Lactic Acid (0.5-1.6) mmol/L Hemoglobin (13.0-17.5) gm/dL Chloride (98-107) mmol/L Glucose (74-99) mg/dL POC Glucose (mg/dL) 186 H 168 H 144 H (75-99) mg/dL Calcium (8.4-10.2) mg/dL AST (17-59) U/L Alkaline Phosphatase (38-126) U/L Total Protein (6.3-8.2) g/dL Albumin (3.5-5.0) g/dL Arterial Blood Glucose (75-99) mg/dL Crossmatch 11/09/19 Range/Units 14:00 WBC (3.8-10.6) k/uL RBC (4.30-5.90) m/uL Hgb (13.0-17.5) gm/dL Hct (39.0-53.0) % Plt Count (150-450) k/uL Neutrophils # (1.3-7.7) k/uL Lymphocytes # (1.0-4.8) k/uL Monocytes # (0-1.0) k/uL PT (9.0-12.0) sec INR (<1.2) APTT (22.0-30.0) sec ABG pH (7.35-7.45) ABG pCO2 (35-45) mmHg ABG pO2 (83-108) mmHg ABG Total CO2 (19-24) mmol/L ABG O2 Saturation (94-97) % ABG Hematocrit (34.0-46.0) % ABG Ionized Calcium (4.5-5.3) mg/dL ABG Glucose (75-99) mg/dL ABG Lactic Acid (0.5-1.6) mmol/L Hemoglobin (13.0-17.5) gm/dL Chloride (98-107) mmol/L Glucose (74-99) mg/dL POC Glucose (mg/dL) 146 H (75-99) mg/dL Calcium (8.4-10.2) mg/dL AST (17-59) U/L Alkaline Phosphatase (38-126) U/L Total Protein (6.3-8.2) g/dL Albumin (3.5-5.0) g/dL Arterial Blood Glucose (75-99) mg/dL Crossmatch Assessment and Plan Plan: 1 coronary artery disease without stable angina and non-STEMI. The patient underwent five-vessel bypass surgery. CABG 5 with GR to LAD, left radial artery to obtuse marginal, saphenous vein to posterior lateral, sequential saph enous vein to first and second diagonal performed on cardiopulmonary bypass with beating heart. Epi-aortic ultrasound and ligation of left atrial appendage with Ben clip. The patient is postop day #1. On today's evaluation, the patient required some volume for hemodynamic support. The patient received a total of 7 50 mL of colloid and the patient is currently on a combination of levo fed and milrinone for hemodynamic support. Urine output is adequate. Cardiac output is adequate for now. 2 post thoracotomy, currently intubated on mechanical ventilator, and the patient was extubated and the patient has tiny biapical pneumothoraces and all of the chest tubes are in place and output has been noted. No evidence of any air leak. 3 blood loss anemia a, expected outcome of surgery, and this is likely of blood loss anemia 4 COPD with an FEV1 of 60% of predicted at baseline 5 small tiny biapical pneumothoraces, the patient has bilateral chest tubes in place in addition to mediastinal chest tubes 6 Peripheral vascular disease with prior peripheral stent placements 7 Right carotid artery stenosis at 50-69% 7 History of marijuana use 8 Diabetes mellitus, type II, insulin drip for blood sugar control, running at 2.5 units per hour. 9 History of bladder cancer status post radiation/chemotherapy and subsequent surgery 10 History of noncompliance Plan Continue the hemodynamic monitoring. The patient is currently on inotropes and a combination of milrinone and norepinephrine infusion. This can be gradually weaned off, especially the norepinephrine. Continue insulin drip for blood sugar control. Utilize incentive spirometer. Monitor hemoglobin. Monitor mental status. Patient has been extubated successfully. The patient is currently on oxygen at 3 L per minute nasal cannula with pulse ox of 98%.
[2019-11-09 15:07] LABS: Glucose,Whole Blood 144 mg/dL (75-99)
[2019-11-09 15:56] LABS: Glucose,Whole Blood 120 mg/dL (75-99)
[2019-11-09 16:53] LABS: Glucose,Whole Blood 120 mg/dL (75-99)
[2019-11-09 18:02] LABS: Glucose,Whole Blood 123 mg/dL (75-99)
[2019-11-09 18:57] LABS: Glucose,Whole Blood 129 mg/dL (75-99)
[2019-11-09 20:00] LABS: Glucose,Whole Blood 112 mg/dL (75-99)
[2019-11-09] MEDS: SENNOSIDES-DOCUSATE SODIUM 1 EACH TAB PO SCH (21:35)
[2019-11-09 22:03] LABS: Glucose,Whole Blood 141 mg/dL (75-99)
[2019-11-10 00:11] LABS: Glucose,Whole Blood 149 mg/dL (75-99)
[2019-11-10] MEDS: KETOROLAC 30 MG/ML 1 ML VIAL IVP SCH ×2 (00:24→06:53)
[2019-11-10] MEDS: DILTIAZEM ORAL 30 MG TAB PO SCH ×4 (00:24→18:28)
[2019-11-10 02:02] LABS: Glucose,Whole Blood 134 mg/dL (75-99)
[2019-11-10] MEDS ORDERED: hydrALAZINE HCL 20 MG/ML 1 ML VIAL IVP STA (02:29)
[2019-11-10 04:16] LABS: Glucose,Whole Blood 127 mg/dL (75-99)
[2019-11-10 04:38] LABS: Basophils % (A) 0 %; Eosinophils # (A) 0.1 k/uL (0-0.7); Eosinophils % (A) 1 %; HCT 20.6 % (39.0-53.0); Lymphocytes # (A) 1.6 k/uL (1.0-4.8); Lymphocytes % (A) 13 %; MCH 31.8 pg (25.0-35.0); MCHC 34.1 g/dL (31.0-37.0); MCV 93.3 fL (80.0-100.0); Mean Platelet Volume 9.8; Monocytes # (A) 1.1 k/uL (0-1.0); Monocytes % (A) 9 %; Neutrophils # (A) 9.4 k/uL (1.3-7.7); Neutrophils % (A) 74 %; Platelet Count 102 k/uL (150-450); RBC 2.21 m/uL (4.30-5.90); RDW 14.3 % (11.5-15.5); WBC 12.7 k/uL (3.8-10.6)
[2019-11-10 04:39] LABS: Ionized Calcium 4.8 mg/dL (4.5-5.3)
[2019-11-10 04:47] LABS: Albumin 3.1 g/dL (3.5-5.0); Magnesium 2.5 mg/dL (1.6-2.3); Potassium 3.9 mmol/L (3.5-5.1); Total Bilirubin 0.6 mg/dL (0.2-1.3); Total Protein 4.8 g/dL (6.3-8.2)
[2019-11-10 06:08] LABS: Glucose,Whole Blood 145 mg/dL (75-99)
[2019-11-10] MEDS: ASCORBIC ACID 500 MG TAB PO SCH ×2 (06:51→18:28)
[2019-11-10] MEDS: PANTOPRAZOLE 40 MG TABLET PO SCH (06:51)
[2019-11-10] MEDS: HEPARIN SODIUM,PORCINE 5,000 UNIT/ML 1 ML VIAL SQ SCH ×3 (06:52→21:35)
[2019-11-10] MEDS: POTASSIUM CHLORIDE 10 MEQ in WATER FOR INJECTION 1 100ML.BAG IVPB SCH ×2 (06:53→08:08)
[2019-11-10] MEDS: FERROUS SULFATE 325 MG TAB PO SCH ×2 (06:53→18:28)
[2019-11-10] MEDS: IPRATROPIUM-ALBUTEROL 3 ML NEB INHALATION SCH ×4 (07:53→19:54)
[2019-11-10 08:03] LABS: Glucose,Whole Blood 132 mg/dL (75-99)
[2019-11-10] MEDS: ATORVASTATIN 40 MG TAB PO SCH (08:23)
[2019-11-10] MEDS: ASPIRIN 325 MG TAB PO SCH (08:23)
[2019-11-10] MEDS: METOPROLOL TARTRATE 25 MG TAB PO SCH ×2 (08:23→18:29)
[2019-11-10] MEDS: CLOPIDOGREL 75 MG TAB PO SCH (08:23)
[2019-11-10] MEDS: MUPIROCIN 2% OINT 22 GM TUBE NASAL SCH ×2 (08:24→21:36)
[2019-11-10 09:09] LABS: Glucose,Whole Blood 144 mg/dL (75-99)
--- NOTE | 2019-11-10 09:31 | XR ---
EXAMINATION TYPE: XR chest 1V portable DATE OF EXAM: 11/10/2019 COMPARISON: Chest 11/09/2019. HISTORY: Postoperative cardiac surgery TECHNIQUE: Single frontal view of the chest is obtained. FINDINGS: Sternotomy wires. Redemonstrated mediastinal drain and bilateral chest tubes. Right manager internal al jugular central venous catheter with distal tip overlying the pulmonary trunk unchanged. The lung volumes. Heart is unchanged. Prominent interstitial lung markings with improved aeration of the right lung base. Resolution of previously described biapical pneumothoraces. No pleural effusion. Decrease d subcutaneous emphysema. IMPRESSION: 1. Decreased pulmonary vascular congestion with improved aeration of the right lung base. 2. Resolution of previously described bilateral pneumothoraces.
[2019-11-10 10:14] LABS: Glucose,Whole Blood 138 mg/dL (75-99)
--- NOTE | 2019-11-10 10:36 | P.PN ---
Subjective Progress Note Date: 11/10/19 Principal diagnosis: Symptomatic multivessel coronary artery disease, unstable angina, status post subendocardial myocardial infarction. Previous medical history of CAD with previous stent placement to the proximal circumflex and ostial OM1, hypertension, hyperlipidemia, chronic ongoing tobacco dependence, mild COPD with preoperative FEV1 60% of predicted, right internal carotid artery stenosis 50- 69%, peripheral arterial disease with previous arthrectomy and MULTIMEDIA PROGRAMMER of the left SFA, atherectomy and MULTIMEDIA PROGRAMMER of the left FARMWORKER BULBS, with stenting of the left BRIAN, poorly controlled type 2 diabetes with preoperative hemoglobin A1c 9.1%, bladder cancer status post chemo and radiation, occasional marijuana use, medication noncompliance, and family history of premature coronary artery disease POD #2 CABG 5 with GR to the LAD, left radial artery to the obtuse marginal, reverse saphenous vein to the posterior lateral, sequential saphenous vein to the first and second diagonal performed on cardiopulmonary bypass with beating heart. Endoscopic vein harvest of the left greater saphenous vein from the ankle to the groin. Endoscopic harvest of the left radial artery. Epi-aortic ultrasound and ligation of left atrial appendage with 40 mm AtriCure clip Postoperative acute blood loss anemia, expected outcome given cardiopulmonary bypass and hemodilution Postoperative confusion, unexpected but potential outcome given cardiopulmonary bypass and intraoperative cardiac arrest The patient is currently sitting up in a recliner in the intensive care unit in no acute distress. Denies any pain or shortness of breath. Pleasantly confused this morning, following some commands, unable to verbalize. Sitter at bedside as patient attempted to pull out his invasive lines. Currently in sinus rhythm with occasional ectopy. Right internal jugular Moultrie/Cordis, right radial arterial line, mediastinal and bilateral pleural chest tubes present and A/V epicardial pacer wires grounded to generator. Patient weaned off Primacor and Levophed yesterday. Objective - Vital Signs Vital signs: Vital Signs Temp 99.5 F 11/10/19 04:00 Pulse 92 11/10/19 08:05 Resp 22 11/10/19 07:00 BP 127/70 11/10/19 07:00 Pulse Ox 97 11/10/19 07:00 Intake & Output 11/09/19 11/10/19 11/10/19 18:59 06:59 18:59 Intake Total 1744.906 660.760 5.589 Output Total 880 840 Balance 864.906 -179.240 5.589 Weight 87 kg 85.1 kg Intake: IV 1548 642 Albumin Human 5% 250 ml 500 In Empty Bag 1 bag @ 250 mls/hr IVPB Q1HR PRN Rx#: [id number] Lactated Ringers 1,000 ml 590 600 @ 20 mls/hr IV .Q24H [facility] Rx#:[id number] Magnesium Sulfate-D5w Pmx 100 1 gm In Dextrose/Water 1 100ml.bag @ 100 mls/hr IVPB Q1H [facility] Rx#: [id number] cardiac output 150 ceFAZolin 2 gm In Sodium 100 Chloride 0.9% 50 ml @ 100 mls/hr IVPB Q8H [facility] Rx#: [id number] pressure bag 108 42 Intake, IV Titration 156.906 18.760 5.589 Amount Diltiazem 125 mg In 33.083 Sodium Chloride 0.9% 100 ml @ 5 MG/HR 5 mls/hr IV .Q24H [facility] Rx#:[id number] Insulin Regular 100 unit 28.113 18.760 5.589 In Sodium Chloride 0.9% 100 ml @ Per Protocol IV .Q0M [facility] Rx#:[id number] Milrinone-D5w Pmx 20 mg 58.042 In Dextrose/Water 1 100ml .bag @ Per Protocol IV . Q0M [facility] Rx#:[id number] Norepinephrine 4 mg In 37.668 Sodium Chloride 0.9% 250 ml @ Titrate IV .Q0M [facility] Rx#:[id number] Oral 40 Output: Chest Tube Drainage 560 530 Mediastinal Chest Tube 120 80 Right and Left Pleural 440 450 Chest Tube Drainage 30 20 Left Calf 10 10 Left Wrist 20 10 Urine 290 290 Other: Voiding Method Indwelling Catheter Indwelling Catheter ABP, PAP, CO, CI - Last Documented Arterial Blood Pressure 132/56 Pulmonary Artery Pressure 30/17 Cardiac Output 4.5 Cardiac Index 2.3 - Constitutional General appearance: Present: cooperative, no acute distress - EENT Eyes: Present: PERRLA - Respiratory Details: ungs sounds diminished bilaterally. Respirations even, nonlabored. Currently on 4 L nasal cannula with oxygen saturation 97%. Non-coperative with incentive spirometry at time of assessment. Mediastinal chest tubes present to continuous wall suction, 70 mL serosanguineous drainage overnight, 250 mL in last 24 hours. Right/left pleural chest tubes present to continuous wall suction, 400 mL serosanguineous drainage overnight, 950 mL in 24 hours. No air leaks present. - Cardiovascular Details: S1, S2 present. Regular rate and rhythm, sinus rhythm with occasional PVCs with rate 90s to low 100s. Sternum stable. A/V epicardial pacemaker wires present, connected to generator, VVI mode with backup rate 50 bpm. Palpable peripheral pulses bilaterally. No edema present. No calf pain or tenderness noted. Right internal jugular Moultrie/Cordis, right radial arterial line present. Last CO/CI 4.5/2.3. Heart hugger in place without patient demonstrating appropriate use. Antiembolism stockings, SCDs present. - Gastrointestinal Gastrointestinal Comment(s): bdomen soft, nontender, nondistended. Hypoactive bowel sounds present 4 quadrants. Tolerating meds with water, diet poor. Unsure if patient has flatus as he is not answering the question. - Genitourinary Genitourinary Comment(s): Junior present draining clear, yellow urine. Output varies at 5-30 mL/hr, - Integumentary Integumentary Comment(s): Skin is warm and dry with evidence of good perfusion. Anterior chest incision well approximated and covered with dry intact dressing. Left radial artery harvest site well approximated, dressing clean dry and intact, ALYX drain present with minimal drainage. Patient has feeling in his left hand and can move all fingers appropriately with good cap refill. Left lower extremity EVH site well approximated without drainage, ALYX drain present with minimal drainage. - Neurologic Neurologic: Present: CNII-XII intact - Musculoskeletal Musculoskeletal: Present: generalized weakness, strength equal bilaterally - Psychiatric Psychiatric Comment(s): Oriented to person only. Unable to answer any questions with words other than "yes" and "okay". He is following commands. He is sleepy but arouses to voice. - Allied health notes Allied health notes reviewed: nursing - Labs CBC & Chem 7: 11/10/19 04:15 11/10/19 04:15 Labs: Abnormal Lab Results - Last 24 Hours (Table) 11/09/19 11/09/19 11/09/19 Range/Units 10:09 11:12 12:11 WBC (3.8-10.6) k/uL RBC (4.30-5.90) m/uL Hgb (13.0-17.5) gm/dL Hct (39.0-53.0) % Plt Count (150-450) k/uL Neutrophils # (1.3-7.7) k/uL Monocytes # (0-1.0) k/uL Sodium (137-145) mmol/L Chloride (98-107) mmol/L Carbon Dioxide (22-30) mmol/L BUN (9-20) mg/dL Glucose (74-99) mg/dL POC Glucose (mg/dL) 197 H 186 H 168 H (75-99) mg/dL Calcium (8.4-10.2) mg/dL Magnesium (1.6-2.3) mg/dL AST (17-59) U/L ALT (4-49) U/L Total Protein (6.3-8.2) g/dL Albumin (3.5-5.0) g/dL 11/09/19 11/09/19 11/09/19 Range/Units 13:06 14:00 15:05 WBC (3.8-10.6) k/uL RBC (4.30-5.90) m/uL Hgb (13.0-17.5) gm/dL Hct (39.0-53.0) % Plt Count (150-450) k/uL Neutrophils # (1.3-7.7) k/uL Monocytes # (0-1.0) k/uL Sodium (137-145) mmol/L Chloride (98-107) mmol/L Carbon Dioxide (22-30) mmol/L BUN (9-20) mg/dL Glucose (74-99) mg/dL POC Glucose (mg/dL) 144 H 146 H 144 H (75-99) mg/dL Calcium (8.4-10.2) mg/dL Magnesium (1.6-2.3) mg/dL AST (17-59) U/L ALT (4-49) U/L Total Protein (6.3-8.2) g/dL Albumin (3.5-5.0) g/dL 11/09/19 11/09/19 11/09/19 Range/Units 15:53 16:51 18:00 WBC (3.8-10.6) k/uL RBC (4.30-5.90) m/uL Hgb (13.0-17.5) gm/dL Hct (39.0-53.0) % Plt Count (150-450) k/uL Neutrophils # (1.3-7.7) k/uL Monocytes # (0-1.0) k/uL Sodium (137-145) mmol/L Chloride (98-107) mmol/L Carbon Dioxide (22-30) mmol/L BUN (9-20) mg/dL Glucose (74-99) mg/dL POC Glucose (mg/dL) 120 H 120 H 123 H (75-99) mg/dL Calcium (8.4-10.2) mg/dL Magnesium (1.6-2.3) mg/dL AST (17-59) U/L ALT (4-49) U/L Total Protein (6.3-8.2) g/dL Albumin (3.5-5.0) g/dL 11/09/19 11/09/19 11/09/19 Range/Units 18:56 19:59 22:01 WBC (3.8-10.6) k/uL RBC (4.30-5.90) m/uL Hgb (13.0-17.5) gm/dL Hct (39.0-53.0) % Plt Count (150-450) k/uL Neutrophils # (1.3-7.7) k/uL Monocytes # (0-1.0) k/uL Sodium (137-145) mmol/L Chloride (98-107) mmol/L Carbon Dioxide (22-30) mmol/L BUN (9-20) mg/dL Glucose (74-99) mg/dL POC Glucose (mg/dL) 129 H 112 H 141 H (75-99) mg/dL Calcium (8.4-10.2) mg/dL Magnesium (1.6-2.3) mg/dL AST (17-59) U/L ALT (4-49) U/L Total Protein (6.3-8.2) g/dL Albumin (3.5-5.0) g/dL 11/10/19 11/10/19 11/10/19 Range/Units 00:09 02:01 04:15 WBC 12.7 H (3.8-10.6) k/uL RBC 2.21 L (4.30-5.90) m/uL Hgb 7.0 L (13.0-17.5) gm/dL Hct 20.6 L (39.0-53.0) % Plt Count 102 L (150-450) k/uL Neutrophils # 9.4 H (1.3-7.7) k/uL Monocytes # 1.1 H (0-1.0) k/uL Sodium (137-145) mmol/L Chloride (98-107) mmol/L Carbon Dioxide (22-30) mmol/L BUN (9-20) mg/dL Glucose (74-99) mg/dL POC Glucose (mg/dL) 149 H 134 H (75-99) mg/dL Calcium (8.4-10.2) mg/dL Magnesium (1.6-2.3) mg/dL AST (17-59) U/L ALT (4-49) U/L Total Protein (6.3-8.2) g/dL Albumin (3.5-5.0) g/dL 11/10/19 11/10/19 11/10/19 Range/Units 04:15 04:15 06:07 WBC (3.8-10.6) k/uL RBC (4.30-5.90) m/uL Hgb (13.0-17.5) gm/dL Hct (39.0-53.0) % Plt Count (150-450) k/uL Neutrophils # (1.3-7.7) k/uL Monocytes # (0-1.0) k/uL Sodium 136 L (137-145) mmol/L Chloride 108 H (98-107) mmol/L Carbon Dioxide 21 L (22-30) mmol/L BUN 24 H (9-20) mg/dL Glucose 103 H (74-99) mg/dL POC Glucose (mg/dL) 127 H 145 H (75-99) mg/dL Calcium 8.0 L (8.4-10.2) mg/dL Magnesium 2.5 H (1.6-2.3) mg/dL AST 164 H (17-59) U/L ALT 67 H (4-49) U/L Total Protein 4.8 L (6.3-8.2) g/dL Albumin 3.1 L (3.5-5.0) g/dL 11/10/19 11/10/19 Range/Units 08:01 09:08 WBC (3.8-10.6) k/uL RBC (4.30-5.90) m/uL Hgb (13.0-17.5) gm/dL Hct (39.0-53.0) % Plt Count (150-450) k/uL Neutrophils # (1.3-7.7) k/uL Monocytes # (0-1.0) k/uL Sodium (137-145) mmol/L Chloride (98-107) mmol/L Carbon Dioxide (22-30) mmol/L BUN (9-20) mg/dL Glucose (74-99) mg/dL POC Glucose (mg/dL) 132 H 144 H (75-99) mg/dL Calcium (8.4-10.2) mg/dL Magnesium (1.6-2.3) mg/dL AST (17-59) U/L ALT (4-49) U/L Total Protein (6.3-8.2) g/dL Albumin (3.5-5.0) g/dL Assessment and Plan Assessment: 1. Symptomatic multivessel coronary artery disease, recent non-STEMI, status post 5 vessel CABG 2. Leukocytosis, unknown origin, may be reactive, resolving 3. Previous stent placement to the proximal circumflex and ostial OM1 4. History of hypertension 5. History of hyperlipidemia 6. Chronic ongoing tobacco dependence 7. Mild COPD, preoperative FEV1 60% of predicted value 8. Right internal carotid artery stenosis 50-69% 9. History of peripheral arterial disease with previous arthrectomy and MULTIMEDIA PROGRAMMER of the left SFA and atherectomy and MULTIMEDIA PROGRAMMER of the left FARMWORKER BULBS with stenting of the left BRIAN 10. Poorly controlled diabetes mellitus type 2, admission hemoglobin A1c 9.1% 11. History of bladder cancer status post radiation, chemotherapy treatment and bladder surgery 12. Occasional marijuana use 13. Medication noncompliance 14. Family history of early onset coronary artery disease 15. Postoperative acute blood loss anemia, expected 16. Postoperative confusion, unexpected 17. Mild ISAAC, creatinine today 1.11, yesterday 0.76 Plan: 1. Continue aspirin, statin, Plavix, beta gaurav therapy. Will increase beta gaurav to 25 mg twice daily. 2. Add Cozaar 25 mg daily 3. Discontinue medistinal chest tubes and split pleurals into separate atriums. 4. Obtain peripheral IV and discontinue Moultrie and Cordis. May leave arterial line for lab draws and can discontinue if line no longer works. 5. Continue oral Cardizem for radial artery support. Do not discontinue CCB without discussing with cardiothoracic surgery 6. Wean O2 as tolerated. Encourage incentive spirometry use 10 times every hour while awake. Bronchodilators per pulmonology. 7. Increase activity as tolerated. Up in chair for all meals, ambulate when able. PT/OT/cardiac rehab consulted 8. Will monitor daily labs and x-rays. Elective replacement per protocol. No transfusion at this point 9. Discontinue toradol. Tylenol for pain management, narcotics discontinued yesterday. 10. GI/DVT prophylaxis 11. Insulin management per primary care service 12. Reorient patient PRN 13. Monitor oral intake, if unable to meet caloric intake we may need to place NG tube. 13. More recommendations to follow Time with Patient: Greater than 30
[2019-11-10] MEDS: FUROSEMIDE 10 MG/ML 2 ML VIAL IV SCH ×2 (10:45→21:35)
[2019-11-10 11:07] LABS: Glucose,Whole Blood 138 mg/dL (75-99)
[2019-11-10] MEDS: LOSARTAN 25 MG TAB PO SCH (11:45)
[2019-11-10] MEDS: LACTATED RINGERS 1,000 ML IV SCH (11:46)
[2019-11-10 13:43] LABS: Glucose,Whole Blood 204 mg/dL (75-99)
--- NOTE | 2019-11-10 14:13 | P.PN ---
Subjective Patient is a [id number] male was recently discharged from the hospital came back in with the chest pain pressure-like sensation lasted for a few hours nonexertional did have elevated troponins. Patient had a triple-vessel disease patient is scheduled to undergo coronary artery bypass grafting on Friday went home started smoking again started having chest pain. Chest x-ray was read as pulmonary edema. It is not elevated patient clinically doesn't have any JVD or crackles or wheezing. 11/09/2019 Patient is status post CABG he was extubated the last night. Patient is presently on norepinephrine, milrinone, IV insulin. Patient still has a [place]- [place] in place most of the management is being done by cardiac thoracic surgery patient was bit confused earlier today doing well now. 11/10/2019 Patient is still confused as per the family his confusion is better patient is a low-grade fever probably because of atelectasis a lot and blood cultures. Patient received Lasix for pulmonary edema, patient's mediastinal chest use with remote patient still has left pleural chest tubes Review of systems: Unable to obtain as patient is tired and sleepy All inpatient medications were reviewed and appropriate changes in these medications as dictated in the interval history and assessment and plan. Objective - Vital Signs Vital signs: Vital Signs Temp 100.1 F H 11/10/19 08:00 Pulse 84 11/10/19 13:00 Resp 28 H 11/10/19 13:00 BP 96/68 11/10/19 13:00 Pulse Ox 98 11/10/19 13:00 Intake & Output 11/09/19 11/10/19 11/10/19 18:59 06:59 18:59 Intake Total 1744.906 660.760 242.928 Output Total 880 840 340 Balance 864.906 -179.240 -97.072 Weight 87 kg 85.1 kg 85.1 kg Intake: IV 1548 642 110 Albumin Human 5% 250 ml 500 In Empty Bag 1 bag @ 250 mls/hr IVPB Q1HR PRN Rx#: [id number] Lactated Ringers 1,000 ml 590 600 110 @ 20 mls/hr IV .Q24H [facility] Rx#:[id number] Magnesium Sulfate-D5w Pmx 100 1 gm In Dextrose/Water 1 100ml.bag @ 100 mls/hr IVPB Q1H [facility] Rx#: [id number] cardiac output 150 ceFAZolin 2 gm In Sodium 100 Chloride 0.9% 50 ml @ 100 mls/hr IVPB Q8H [facility] Rx#: [id number] pressure bag 108 42 Intake, IV Titration 156.906 18.760 112.928 Amount Diltiazem 125 mg In 33.083 Sodium Chloride 0.9% 100 ml @ 5 MG/HR 5 mls/hr IV .Q24H [facility] Rx#:[id number] Insulin Regular 100 unit 28.113 18.760 12.928 In Sodium Chloride 0.9% 100 ml @ Per Protocol IV .Q0M [facility] Rx#:[id number] Milrinone-D5w Pmx 20 mg 58.042 In Dextrose/Water 1 100ml .bag @ Per Protocol IV . Q0M [facility] Rx#:[id number] Norepinephrine 4 mg In 37.668 Sodium Chloride 0.9% 250 ml @ Titrate IV .Q0M [facility] Rx#:[id number] Potassium Chloride 10 meq 100 In Water For Injection 1 100ml.bag @ 100 mls/hr IVPB Q1H [facility] Rx#: [id number] Oral 40 20 Output: Chest Tube Drainage 560 530 150 Left Pleural Chest Tube 55 Left Pleural/Mediastinal 25 Mediastinal Chest Tube 120 80 Right Pleural Chest Tube 65 Right Pleural/Mediastinal 5 Right and Left Pleural 440 450 Chest Tube Drainage 30 20 Left Calf 10 10 Left Wrist 20 10 Urine 290 290 190 Other: Voiding Method Indwelling Catheter Indwelling Catheter Indwelling Catheter ABP, PAP, CO, CI - Last Documented Arterial Blood Pressure 110/50 Pulmonary Artery Pressure 30/17 Cardiac Output 4.5 Cardiac Index 2.3 - Exam PHYSICAL EXAMINATION: GENERAL: The patient is also retired fatigue, not in any acute distress. Well developed, well nourished. HEENT: Pupils are round and equally reacting to light. EOMI. No scleral icterus. No conjunctival pallor. Normocephalic, atraumatic. No pharyngeal erythema. No thyromegaly. CARDIOVASCULAR: S1 and S2 present. No murmurs, rubs, or gallops. She has left 2 pleural chest tubes. No much drainage since last night. PULMONARY: Bibasilar crackles no wheezing was appreciated ABDOMEN: Soft, nontender, nondistended, normoactive bowel sounds. No palpable organomegaly. MUSCULOSKELETAL: No joint swelling or deformity. EXTREMITIES: No cyanosis, clubbing, or pedal edema. NEUROLOGICAL: Gross neurological examination did not reveal any focal deficits. SKIN: No rashes. - Labs CBC & Chem 7: 11/10/19 04:15 11/10/19 04:15 Labs: Abnormal Lab Results - Last 24 Hours (Table) 11/09/19 11/09/19 11/09/19 Range/Units 15:05 15:53 16:51 WBC (3.8-10.6) k/uL RBC (4.30-5.90) m/uL Hgb (13.0-17.5) gm/dL Hct (39.0-53.0) % Plt Count (150-450) k/uL Neutrophils # (1.3-7.7) k/uL Monocytes # (0-1.0) k/uL Sodium (137-145) mmol/L Chloride (98-107) mmol/L Carbon Dioxide (22-30) mmol/L BUN (9-20) mg/dL Glucose (74-99) mg/dL POC Glucose (mg/dL) 144 H 120 H 120 H (75-99) mg/dL Calcium (8.4-10.2) mg/dL Magnesium (1.6-2.3) mg/dL AST (17-59) U/L ALT (4-49) U/L Total Protein (6.3-8.2) g/dL Albumin (3.5-5.0) g/dL 11/09/19 11/09/19 11/09/19 Range/Units 18:00 18:56 19:59 WBC (3.8-10.6) k/uL RBC (4.30-5.90) m/uL Hgb (13.0-17.5) gm/dL Hct (39.0-53.0) % Plt Count (150-450) k/uL Neutrophils # (1.3-7.7) k/uL Monocytes # (0-1.0) k/uL Sodium (137-145) mmol/L Chloride (98-107) mmol/L Carbon Dioxide (22-30) mmol/L BUN (9-20) mg/dL Glucose (74-99) mg/dL POC Glucose (mg/dL) 123 H 129 H 112 H (75-99) mg/dL Calcium (8.4-10.2) mg/dL Magnesium (1.6-2.3) mg/dL AST (17-59) U/L ALT (4-49) U/L Total Protein (6.3-8.2) g/dL Albumin (3.5-5.0) g/dL 11/09/19 11/10/19 11/10/19 Range/Units 22:01 00:09 02:01 WBC (3.8-10.6) k/uL RBC (4.30-5.90) m/uL Hgb (13.0-17.5) gm/dL Hct (39.0-53.0) % Plt Count (150-450) k/uL Neutrophils # (1.3-7.7) k/uL Monocytes # (0-1.0) k/uL Sodium (137-145) mmol/L Chloride (98-107) mmol/L Carbon Dioxide (22-30) mmol/L BUN (9-20) mg/dL Glucose (74-99) mg/dL POC Glucose (mg/dL) 141 H 149 H 134 H (75-99) mg/dL Calcium (8.4-10.2) mg/dL Magnesium (1.6-2.3) mg/dL AST (17-59) U/L ALT (4-49) U/L Total Protein (6.3-8.2) g/dL Albumin (3.5-5.0) g/dL 11/10/19 11/10/19 11/10/19 Range/Units 04:15 04:15 04:15 WBC 12.7 H (3.8-10.6) k/uL RBC 2.21 L (4.30-5.90) m/uL Hgb 7.0 L (13.0-17.5) gm/dL Hct 20.6 L (39.0-53.0) % Plt Count 102 L (150-450) k/uL Neutrophils # 9.4 H (1.3-7.7) k/uL Monocytes # 1.1 H (0-1.0) k/uL Sodium 136 L (137-145) mmol/L Chloride 108 H (98-107) mmol/L Carbon Dioxide 21 L (22-30) mmol/L BUN 24 H (9-20) mg/dL Glucose 103 H (74-99) mg/dL POC Glucose (mg/dL) 127 H (75-99) mg/dL Calcium 8.0 L (8.4-10.2) mg/dL Magnesium 2.5 H (1.6-2.3) mg/dL AST 164 H (17-59) U/L ALT 67 H (4-49) U/L Total Protein 4.8 L (6.3-8.2) g/dL Albumin 3.1 L (3.5-5.0) g/dL 11/10/19 11/10/19 11/10/19 Range/Units 06:07 08:01 09:08 WBC (3.8-10.6) k/uL RBC (4.30-5.90) m/uL Hgb (13.0-17.5) gm/dL Hct (39.0-53.0) % Plt Count (150-450) k/uL Neutrophils # (1.3-7.7) k/uL Monocytes # (0-1.0) k/uL Sodium (137-145) mmol/L Chloride (98-107) mmol/L Carbon Dioxide (22-30) mmol/L BUN (9-20) mg/dL Glucose (74-99) mg/dL POC Glucose (mg/dL) 145 H 132 H 144 H (75-99) mg/dL Calcium (8.4-10.2) mg/dL Magnesium (1.6-2.3) mg/dL AST (17-59) U/L ALT (4-49) U/L Total Protein (6.3-8.2) g/dL Albumin (3.5-5.0) g/dL 11/10/19 11/10/19 11/10/19 Range/Units 10:14 11:06 13:41 WBC (3.8-10.6) k/uL RBC (4.30-5.90) m/uL Hgb (13.0-17.5) gm/dL Hct (39.0-53.0) % Plt Count (150-450) k/uL Neutrophils # (1.3-7.7) k/uL Monocytes # (0-1.0) k/uL Sodium (137-145) mmol/L Chloride (98-107) mmol/L Carbon Dioxide (22-30) mmol/L BUN (9-20) mg/dL Glucose (74-99) mg/dL POC Glucose (mg/dL) 138 H 138 H 204 H (75-99) mg/dL Calcium (8.4-10.2) mg/dL Magnesium (1.6-2.3) mg/dL AST (17-59) U/L ALT (4-49) U/L Total Protein (6.3-8.2) g/dL Albumin (3.5-5.0) g/dL Assessment and Plan Plan: -Acute non-ST elevation microinfarction: Coronary artery diseasepatient is status post five-vessel coronary artery bypass grafting, patient is presently on aspirin and statin beta gaurav, amiodarone oral Cardizem -Leukocytosis reactive is not requiring any medications -Possible congestive heart failure chronic diastolic dysfunction with acute exacerbation patient received Lasix. -Low-grade fever probably because of atelectasis and incentive spirometry, obtain blood cultures chest x-ray was done today, if patient can use to have fevers probably should obtain UA and urine cultures as well. -Hypertension -Hyperlipidemia -Type 2 diabetes mellitus patient is presently on IV insulin drip. -COPD without any acute exacerbation -Severe peripheral vascular disease -History of bladder cancer status post chemotherapy and radiation -Continued nicotine use and marijuana use:
--- NOTE | 2019-11-10 14:30 | PN ---
PROGRESS NOTE Mr. Reis is more confused today. He has no neurological deficits motor adams, but there is confusion, altered mentation. However, he is hemodynamically stable, not on any pressors. Vitals are stable. S1-S2 heard normally. Lungs reveal bilateral air entry. Abdomen and lower extremity exam unchanged. I would recommend that we consider a CAT scan if okayed by the Cardiac Surgery. However, he can wait a day or 2 if necessary. Patient; however, from a cardiac standpoint, hemodynamically doing well, maintaining sinus rhythm. We will continue current medications into the incentive spirometry. Prognosis remains guarded. Based on clinical course, I will make further recommendations. He is on a small dose of beta gaurav which we will continue for the time being. Will also seek a neurology input if necessary. Prognosis remains guarded. MMODL / IJN: [id number] /
[2019-11-10 15:08] LABS: Glucose,Whole Blood 170 mg/dL (75-99)
--- NOTE | 2019-11-10 15:51 | P.PN ---
Subjective Progress Note Date: 11/10/19 This is a 64-year-old male patient with coronary artery disease, noncompliant to medication. The patient came in with subendocardial infarction and cardiac catheterization showed diffuse coronary artery disease with critical stenosis. The patient underwent coronary artery bypass today. The patient underwent bypass 5 with GR to LAD, radial artery graft to acute marginal, saphenous finger after 2 posterior lateral and sick ration saphenous vein to first and second diagonal performed on cardiac pulmonary bypass with beating heart. Left atrial appendage was also added. The patient currently is in the intensive care unit. I centimeters in regards to the ICU. He was initially on a SIMV mode of ventilation at the rate of 12 with a tidal volume of 500 and FiO2 of 100% with a PEEP of 5 and a pressure support of 5. The blood gas showed a pH of 7.318 with a pCO2 of 49 and pO2 of 226. The chest x-ray postop showed volume overload with pulmonary vascular congestion and interstitial edema. The lines and tubes are all in good location. Based on all this, I increased the respiratory rate of 24. I do not FiO2 down to 60%. Current cardiac output is at 2.6 with an index of 5. The patient has 2 mediastinal 1 right pleural and 1 left pleural chest tube. Ultrasound of the sternal chest tubes has been around 150 mL since he arrived from the operating room. No evidence of any air leak. The patient is currently on a Cardizem drip and milrinone drip and the patient is on insulin drip for blood sugar control.he is well sedated. Is quite symptoms with the mechanical ventilator. Postoperative hemoglobin is at 8.2. Platelet count is down to 78. On today's evaluation of 11/09/2019, I'm seeing the patient for a follow-up. The patient was operated on yesterday and the patient underwent a five-vessel bypass surgery including a GR and the radial artery harvest. The patient was extubated within 6 hours and currently the patient is on oxygen by nasal cannula at 5 L. He is pleasantly confused this morning. He is able to sit up on a recliner. Hemodynamically, he did have some early of hypotension earlier this morning and for that reason the patient was given 750 mL of colloids and following that he was started on low-dose levo fed at 0.03 g per KG per minute. The patient remains on Primacor running at 0.125 g and the patient is also on Cardizem at 5 mg an hour. Insulin drip is running at 2.5 units an hour. Hemodynamically, the patient's cardiac output is at 4.2 with an index of 2.2. The pulmonary artery pressure 28/12. CVP is at 11. Cardiac output is at 4.2. He is in his normal sinus rhythm. He has a backup VVI at the rate of 50. His chest x-rays showing small bilateral apical pneumothoraces. All of the chest tubes are in good location. The right and left pleural chest tube connected and they have drained approximately 130 mL over the past 8 hours. He is tender tubes are also connected and it has drained approximately 140 mL over the past 8 hours. The patient otherwise has no specific complaints. Sternum stable clean and intact. He is producing urine output in the order of 20-30 mL an hour. No other significant events overnight. Hemoglobin stable at 7.9. The platelet count improved to 102. On 11/10/2019, the patient is postop day #2. The patient is confused. He is nonverbal. He is not answering questions and is not following any commands. Upon watching him, I felt that the left side of the body slightly cachectic compared to the right. Nevertheless, the same as the patient was not cheered by the nursing staff been observing this patient longer to me. He has no preferential gaze toseizure activity. No reported shortness of breath or respiratory distress at this point in time. Mediastinal chest tubes and the pleural chest tubes are all in place. The patient has an AV epicardial pacer wire grounded to generator. As of yesterday, the patient was taken off the pressors. The patient is currently off the levo fed and he is off the Primacor. The patient also had the ALYX drains removed from the left lower extremity and arm. No other significant issues for now. No cardiac arrhythmias. No nausea. No vomiting. No emesis. He is resting comfortably in bed. The patient's hemoglobin is at 7.0. Was a causative 4.7. Diminished pulmonary vascular congestion and infiltration of the right lung base. There is resolution of the previously described bilateral pneumothoraces. Objective - Vital Signs Vital signs: Vital Signs Temp 100.1 F H 11/10/19 08:00 Pulse 92 11/10/19 15:28 Resp 18 11/10/19 14:00 BP 106/68 11/10/19 14:00 Pulse Ox 97 11/10/19 14:00 Intake & Output 11/09/19 11/10/19 11/10/19 18:59 06:59 18:59 Intake Total 1744.906 660.760 269.670 Output Total 880 840 390 Balance 864.906 -179.240 -120.330 Weight 87 kg 85.1 kg 85.1 kg Intake: IV 1548 642 130 Albumin Human 5% 250 ml 500 In Empty Bag 1 bag @ 250 mls/hr IVPB Q1HR PRN Rx#: [id number] Lactated Ringers 1,000 ml 590 600 130 @ 20 mls/hr IV .Q24H YVAN Rx#:[id number] Magnesium Sulfate-D5w Pmx 100 1 gm In Dextrose/Water 1 100ml.bag @ 100 mls/hr IVPB Q1H YVAN Rx#: [id number] cardiac output 150 ceFAZolin 2 gm In Sodium 100 Chloride 0.9% 50 ml @ 100 mls/hr IVPB Q8H YVAN Rx#: [id number] pressure bag 108 42 Intake, IV Titration 156.906 18.760 119.670 Amount Diltiazem 125 mg In 33.083 Sodium Chloride 0.9% 100 ml @ 5 MG/HR 5 mls/hr IV .Q24H YVAN Rx#:[id number] Insulin Regular 100 unit 28.113 18.760 19.670 In Sodium Chloride 0.9% 100 ml @ Per Protocol IV .Q0M YVAN Rx#:[id number] Milrinone-D5w Pmx 20 mg 58.042 In Dextrose/Water 1 100ml .bag @ Per Protocol IV . Q0M YVAN Rx#:[id number] Norepinephrine 4 mg In 37.668 Sodium Chloride 0.9% 250 ml @ Titrate IV .Q0M YVAN Rx#:[id number] Potassium Chloride 10 meq 100 In Water For Injection 1 100ml.bag @ 100 mls/hr IVPB Q1H YVAN Rx#: [id number] Oral 40 20 Output: Chest Tube Drainage 560 530 150 Left Pleural Chest Tube 55 Left Pleural/Mediastinal 25 Mediastinal Chest Tube 120 80 Right Pleural Chest Tube 65 Right Pleural/Mediastinal 5 Right and Left Pleural 440 450 Chest Tube Drainage 30 20 Left Calf 10 10 Left Wrist 20 10 Urine 290 290 240 Other: Voiding Method Indwelling Catheter Indwelling Catheter Indwelling Catheter ABP, PAP, CO, CI - Last Documented Arterial Blood Pressure 110/50 Pulmonary Artery Pressure 30/17 Cardiac Output 4.5 Cardiac Index 2.3 - Exam General appearance: Present: Patient is nonverbal. The patient is not following any commands. He is resting comfortably in bed. No signs of any acute respiratory distress at this point in time. I was unable to get any reaction or answers to questions asked to him. - EENT Eyes: Present: PERRLA - Respiratory Details: ungs sounds diminished bilaterally. Respirations even, nonlabored. Currently on 4 L nasal cannula with oxygen saturation 97%. Non-coperative with incentive spirometry at time of assessment. Mediastinal chest tubes present to continuous wall suction, 70 mL serosanguineous drainage overnight, 250 mL in last 24 hours. Right/left pleural chest tubes present to continuous wall suction, 400 mL serosanguineous drainage overnight, 950 mL in 24 hours. No air leaks present. - Cardiovascular Details: S1, S2 present. Regular rate and rhythm, sinus rhythm with occasional PVCs with rate 90s to low 100s. Sternum stable. A/V epicardial pacemaker wires present, connected to generator, VVI mode with backup rate 50 bpm. Palpable peripheral pulses bilaterally. No edema present. No calf pain or tenderness noted. Right internal jugular [place]/Cordis, right radial arterial line present. Last CO/CI 4.5/2.3. Heart hugger in place without patient demonstrating appropriate use. Antiembolism stockings, SCDs present. - Gastrointestinal Gastrointestinal Comment(s): bdomen soft, nontender, nondistended. Hypoactive bowel sounds present 4 quadrants. Tolerating meds with water, diet poor. Unsure if patient has flatus as he is not answering the question. - Genitourinary Genitourinary Comment(s): Junior present draining clear, yellow urine. Output varies at 5-30 mL/hr, - Integumentary Integumentary Comment(s): Skin is warm and dry with evidence of good perfusion. Anterior chest incision well approximated and covered with dry intact dressing. Left radial artery harvest site well approximated, dressing clean dry and intact, ALYX drain present with minimal drainage. Patient has feeling in his left hand and can move all fingers appropriately with good cap refill. Left lower extremity EVH site well approximated without drainage, ALYX drain present with minimal drainage. - Neurologic Neurologic: Present: CNII-XII intact, suspect some left-sided weakness. On direct observation the patient's left-sided was noted to be slightly weaker than the right. Nevertheless, this has not been a persistent finding. The patient has positive upgoing Babinski and is hyperreflexia in both lower extremities. Sensory motor function cannot be assessed. No seizure activity has been noted. - Musculoskeletal Musculoskeletal: Present: generalized weakness, strength equal bilaterally - Psychiatric Psychiatric Comment(s): Oriented to person only. Unable to answ - Labs CBC & Chem 7: 11/10/19 04:15 11/10/19 04:15 Labs: Abnormal Lab Results - Last 24 Hours (Table) 11/09/19 11/09/19 11/09/19 Range/Units 15:53 16:51 18:00 WBC (3.8-10.6) k/uL RBC (4.30-5.90) m/uL Hgb (13.0-17.5) gm/dL Hct (39.0-53.0) % Plt Count (150-450) k/uL Neutrophils # (1.3-7.7) k/uL Monocytes # (0-1.0) k/uL Sodium (137-145) mmol/L Chloride (98-107) mmol/L Carbon Dioxide (22-30) mmol/L BUN (9-20) mg/dL Glucose (74-99) mg/dL POC Glucose (mg/dL) 120 H 120 H 123 H (75-99) mg/dL Calcium (8.4-10.2) mg/dL Magnesium (1.6-2.3) mg/dL AST (17-59) U/L ALT (4-49) U/L Total Protein (6.3-8.2) g/dL Albumin (3.5-5.0) g/dL 11/09/19 11/09/19 11/09/19 Range/Units 18:56 19:59 22:01 WBC (3.8-10.6) k/uL RBC (4.30-5.90) m/uL Hgb (13.0-17.5) gm/dL Hct (39.0-53.0) % Plt Count (150-450) k/uL Neutrophils # (1.3-7.7) k/uL Monocytes # (0-1.0) k/uL Sodium (137-145) mmol/L Chloride (98-107) mmol/L Carbon Dioxide (22-30) mmol/L BUN (9-20) mg/dL Glucose (74-99) mg/dL POC Glucose (mg/dL) 129 H 112 H 141 H (75-99) mg/dL Calcium (8.4-10.2) mg/dL Magnesium (1.6-2.3) mg/dL AST (17-59) U/L ALT (4-49) U/L Total Protein (6.3-8.2) g/dL Albumin (3.5-5.0) g/dL 11/10/19 11/10/19 11/10/19 Range/Units 00:09 02:01 04:15 WBC 12.7 H (3.8-10.6) k/uL RBC 2.21 L (4.30-5.90) m/uL Hgb 7.0 L (13.0-17.5) gm/dL Hct 20.6 L (39.0-53.0) % Plt Count 102 L (150-450) k/uL Neutrophils # 9.4 H (1.3-7.7) k/uL Monocytes # 1.1 H (0-1.0) k/uL Sodium (137-145) mmol/L Chloride (98-107) mmol/L Carbon Dioxide (22-30) mmol/L BUN (9-20) mg/dL Glucose (74-99) mg/dL POC Glucose (mg/dL) 149 H 134 H (75-99) mg/dL Calcium (8.4-10.2) mg/dL Magnesium (1.6-2.3) mg/dL AST (17-59) U/L ALT (4-49) U/L Total Protein (6.3-8.2) g/dL Albumin (3.5-5.0) g/dL 11/10/19 11/10/19 11/10/19 Range/Units 04:15 04:15 06:07 WBC (3.8-10.6) k/uL RBC (4.30-5.90) m/uL Hgb (13.0-17.5) gm/dL Hct (39.0-53.0) % Plt Count (150-450) k/uL Neutrophils # (1.3-7.7) k/uL Monocytes # (0-1.0) k/uL Sodium 136 L (137-145) mmol/L Chloride 108 H (98-107) mmol/L Carbon Dioxide 21 L (22-30) mmol/L BUN 24 H (9-20) mg/dL Glucose 103 H (74-99) mg/dL POC Glucose (mg/dL) 127 H 145 H (75-99) mg/dL Calcium 8.0 L (8.4-10.2) mg/dL Magnesium 2.5 H (1.6-2.3) mg/dL AST 164 H (17-59) U/L ALT 67 H (4-49) U/L Total Protein 4.8 L (6.3-8.2) g/dL Albumin 3.1 L (3.5-5.0) g/dL 11/10/19 11/10/19 11/10/19 Range/Units 08:01 09:08 10:14 WBC (3.8-10.6) k/uL RBC (4.30-5.90) m/uL Hgb (13.0-17.5) gm/dL Hct (39.0-53.0) % Plt Count (150-450) k/uL Neutrophils # (1.3-7.7) k/uL Monocytes # (0-1.0) k/uL Sodium (137-145) mmol/L Chloride (98-107) mmol/L Carbon Dioxide (22-30) mmol/L BUN (9-20) mg/dL Glucose (74-99) mg/dL POC Glucose (mg/dL) 132 H 144 H 138 H (75-99) mg/dL Calcium (8.4-10.2) mg/dL Magnesium (1.6-2.3) mg/dL AST (17-59) U/L ALT (4-49) U/L Total Protein (6.3-8.2) g/dL Albumin (3.5-5.0) g/dL 11/10/19 11/10/19 11/10/19 Range/Units 11:06 13:41 15:07 WBC (3.8-10.6) k/uL RBC (4.30-5.90) m/uL Hgb (13.0-17.5) gm/dL Hct (39.0-53.0) % Plt Count (150-450) k/uL Neutrophils # (1.3-7.7) k/uL Monocytes # (0-1.0) k/uL Sodium (137-145) mmol/L Chloride (98-107) mmol/L Carbon Dioxide (22-30) mmol/L BUN (9-20) mg/dL Glucose (74-99) mg/dL POC Glucose (mg/dL) 138 H 204 H 170 H (75-99) mg/dL Calcium (8.4-10.2) mg/dL Magnesium (1.6-2.3) mg/dL AST (17-59) U/L ALT (4-49) U/L Total Protein (6.3-8.2) g/dL Albumin (3.5-5.0) g/dL Assessment and Plan Plan: 1 coronary artery disease without stable angina and non-STEMI. The patient underwent five-vessel bypass surgery. CABG 5 with GR to LAD, left radial artery to obtuse marginal, saphenous vein to posterior lateral, sequential saphenous vein to first and second diagonal performed on cardiopulmonary bypass with beating heart. Epi-aortic ultrasound and ligation of left atrial appendage with Ben clip. The patient is postop day #2. The patient has still a chest tubes in place. [place]-Juni catheter in place. Hemodynamically stable. Currently on no pressors. Cardiac index is up to 2.5 while off inotropes. 2 post thoracotomy, currently intubated on mechanical ventilator, and the patient was extubated . No evidence of any air leak. The follow-up chest x-ray from today shows no evidence of any pneumothoraces 3 blood loss anemia , expected outcome of surgery, and this is likely of blood loss anemia 4 COPD with an FEV1 of 60% of predicted at baseline 5 small tiny biapical pneumothoraces, the patient has bilateral chest tubes in place in addition to mediastinal chest tubes, the pneumothoraces of recovered on today's chest x-ray not seen and the patient has no evidence of any air leak. Output from the chest tubes have been noted. 6 Peripheral vascular disease with prior peripheral stent placements 7 Right carotid artery stenosis at 50-69% 7 History of marijuana use 8 Diabetes mellitus, type II, insulin drip for blood sugar control, running at 1.5 units per hour. 9 History of bladder cancer status post radiation/chemotherapy and subsequent surgery 10 History of noncompliance 11 altered mentation 12 postop confusion, consider CVA as there may be some signs of left-sided weakness intermittently on today's evaluation. He has hyperreflexia in lower extremity is bilaterally. Plan Continue the hemodynamic monitoring. May need to remove the mediastinal chest tubes and split the pleural chest tubes Continue monitoring the hemoglobin Continue aspirin and Plavix and beta blockers Metoprolol 25 mg by mouth twice a day May the CAT scan of the brain if there are no improvement in his confusion Continue insulin drip for blood sugar control incentive spirometer use we'll continue to follow. Keep the patient ICU for another 24 hours.
[2019-11-10 16:02] LABS: Glucose,Whole Blood 147 mg/dL (75-99)
[2019-11-10 17:14] LABS: Glucose,Whole Blood 188 mg/dL (75-99)
[2019-11-10 18:12] LABS: Glucose,Whole Blood 282 mg/dL (75-99)
[2019-11-10 19:07] LABS: Glucose,Whole Blood 202 mg/dL (75-99)
[2019-11-10] MEDS ORDERED: POTASSIUM BICARBONATE/CIT AC 20 MEQ TABLET.EFF NG-TUBE SCH (20:00)
[2019-11-10 20:05] LABS: Glucose,Whole Blood 159 mg/dL (75-99)
[2019-11-10] MEDS: INSULIN REGULAR 100 UNIT in SODIUM CHLORIDE 0.9% 100 ML IV SCH (20:05)
[2019-11-10] MEDS: SENNOSIDES-DOCUSATE SODIUM 1 EACH TAB PO SCH (21:34)
[2019-11-10 21:36] LABS: Glucose,Whole Blood 124 mg/dL (75-99)
[2019-11-10 22:49] LABS: Glucose,Whole Blood 143 mg/dL (75-99)
[2019-11-10 23:36] LABS: Glucose,Whole Blood 138 mg/dL (75-99)
[2019-11-11] MEDS: DILTIAZEM ORAL 30 MG TAB PO SCH ×4 (00:16→17:23)
[2019-11-11 02:21] LABS: Glucose,Whole Blood 143 mg/dL (75-99)
[2019-11-11 04:45] LABS: Glucose,Whole Blood 145 mg/dL (75-99)
[2019-11-11 04:57] LABS: Basophils % (A) 0 %; Eosinophils # (A) 0.3 k/uL (0-0.7); Eosinophils % (A) 2 %; Lymphocytes # (A) 1.3 k/uL (1.0-4.8); Lymphocytes % (A) 9 %; MCH 31.6 pg (25.0-35.0); MCHC 33.4 g/dL (31.0-37.0); MCV 94.5 fL (80.0-100.0); Mean Platelet Volume 10.1; Monocytes # (A) 0.9 k/uL (0-1.0); Monocytes % (A) 6 %; Neutrophils # (A) 11.2 k/uL (1.3-7.7); Neutrophils % (A) 80 %; Platelet Count 124 k/uL (150-450); RBC 2.12 m/uL (4.30-5.90); RDW 14.1 % (11.5-15.5); WBC 14.1 k/uL (3.8-10.6)
[2019-11-11] MEDS: DEXTROSE 5% IN WATER 100 ML with AMIODARONE 150 MG IV PRN ×4 (04:57→08:50)
[2019-11-11 05:01] LABS: HGB 6.7 gm/dL (13.0-17.5)
[2019-11-11 05:10] LABS: Potassium 3.8 mmol/L (3.5-5.1); Total Bilirubin 0.8 mg/dL (0.2-1.3); Total Protein 4.8 g/dL (6.3-8.2)
[2019-11-11] MEDS: AMIODARONE 360 MG in DEXTROSE 5% IN WATER 200 ML IV PRN ×4 (05:18→11:59)
[2019-11-11] MEDS ORDERED: POTASSIUM BICARBONATE/CIT AC 20 MEQ TABLET.EFF NG-TUBE SCH (06:00)
[2019-11-11] MEDS ORDERED: METOPROLOL TARTRATE 5 MG/5 ML VIAL IVP ONE ×2 (06:50→06:53)
[2019-11-11 07:08] LABS: HCT 20.1 % (39.0-53.0); MCH 31.8 pg (25.0-35.0); MCHC 33.5 g/dL (31.0-37.0); Mean Platelet Volume 9.5; Platelet Count 123 k/uL (150-450); RBC 2.11 m/uL (4.30-5.90); RDW 14.3 % (11.5-15.5); WBC 14.1 k/uL (3.8-10.6)
[2019-11-11 07:12] LABS: HGB 6.7 gm/dL (13.0-17.5)
[2019-11-11] MEDS: IPRATROPIUM-ALBUTEROL 3 ML NEB INHALATION SCH ×4 (07:20→20:26)
[2019-11-11 07:37] LABS: Glucose,Whole Blood 262 mg/dL (75-99)
--- NOTE | 2019-11-11 07:47 | XR ---
EXAMINATION TYPE: XR chest 1V portable DATE OF EXAM: 11/11/2019 COMPARISON: Prior chest x-ray 11/10/2019 HISTORY: Status post cardiac surgery TECHNIQUE: Single frontal view of the chest is obtained. FINDINGS: Bilateral chest tubes are in place. No evident pneumothorax. Lung volumes are low. Patient is post median sternotomy and atrial appendage clipping placement. Central venous catheter has been removed. Median sternal drain is no longer seen. Heart is enlarged. Interstitium mildly increased. IMPRESSION: Interval catheter and tube removal. Low lung volumes, rotated exam. Aeration is thought to be improved.
[2019-11-11 09:10] LABS: Glucose,Whole Blood 216 mg/dL (75-99)
--- NOTE | 2019-11-11 09:27 | P.PN ---
Subjective Progress Note Date: 11/11/19 Principal diagnosis: Symptomatic multivessel coronary artery disease, unstable angina, status post subendocardial myocardial infarction. Previous medical history of CAD with previous stent placement to the proximal circumflex and ostial OM1, hypertension, hyperlipidemia, chronic ongoing tobacco dependence, mild COPD with preoperative FEV1 60% of predicted, right internal carotid artery stenosis 50- 69%, peripheral arterial disease with previous arthrectomy and INSERT MOLDING OPERATOR of the left SFA, atherectomy and INSERT MOLDING OPERATOR of the left WHIZZER, with stenting of the left BRIAN, poorly controlled type 2 diabetes with preoperative hemoglobin A1c 9.1%, bladder cancer status post chemo and radiation, occasional marijuana use, medication noncompliance, and family history of premature coronary artery disease POD #3 CABG 5 with GR to the LAD, left radial artery to the obtuse marginal, reverse saphenous vein to the posterior lateral, sequential saphenous vein to the first and second diagonal performed on cardiopulmonary bypass with beating heart. Endoscopic vein harvest of the left greater saphenous vein from the ankle to the groin. Endoscopic harvest of the left radial artery. Epi-aortic ultrasound and ligation of left atrial appendage with 40 mm AtriCure clip Postoperative acute blood loss anemia, expected outcome given cardiopulmonary bypass and hemodilution Postoperative confusion, unexpected but potential outcome given cardiopulmonary bypass and intraoperative cardiac arrest Postoperative new onset paroxysmal Afib with RVR, unexpected The patient is currently sitting up in a recliner in the intensive care unit, he is confused restless, agitated and in AFib with RVR with HR 180s, third 150mg Amio bolus given as well as 5 mg Lopressor IVP, defibrillator pads placed on patient and he was placed back into bed. Patient did convert back to normal sinus rhythm, however, currently in and out of Afib with RVR. He following some commands, moving all extremities with equal strengths but unable to verbalize. He also pulled out an IV and was replaced. He went into Afib with RVR overnight as well, Amiodorone was started last night. Right radial arterial line, bilateral pleural chest tubes present with serosangenous drainage, he pulled on his newman causing hematuria. A/V epicardial pacer wires grounded to generator. Sitter at bedside. Objective - Vital Signs Vital signs: Vital Signs Temp 97.1 F L 11/11/19 00:00 Pulse 75 11/11/19 07:28 Resp 36 H 11/11/19 07:00 BP 93/72 11/11/19 07:00 Pulse Ox 96 11/11/19 07:00 Intake & Output 11/10/19 11/11/19 11/11/19 18:59 06:59 18:59 Intake Total 458.533 293.150 43.242 Output Total 665 853 175 Balance -206.467 -559.850 -131.758 Weight 85.1 kg 84.6 kg Intake: IV 210 273 23 Lactated Ringers 1,000 ml 210 240 20 @ 20 mls/hr IV .Q24H Y[facility]AN Rx#:[id number] pressure bag 33 3 Intake, IV Titration 128.533 20.150 20.242 Amount Insulin Regular 100 unit 28.533 20.150 20.242 In Sodium Chloride 0.9% 100 ml @ Per Protocol IV .Q0M YVAN Rx#:[id number] Potassium Chloride 10 meq 100 In Water For Injection 1 100ml.bag @ 100 mls/hr IVPB Q1H Y[facility]AN Rx#: [id number] Oral 120 Output: Chest Tube Drainage 270 243 110 Left Pleural Chest Tube 140 170 50 Left Pleural/Mediastinal 25 Right Pleural Chest Tube 100 73 60 Right Pleural/Mediastinal 5 Urine 395 610 65 Other: Voiding Method Indwelling Catheter Indwelling Catheter ABP, PAP, CO, CI - Last Documented Arterial Blood Pressure 110/50 Pulmonary Artery Pressure 30/17 Cardiac Output 4.5 Cardiac Index 2.3 - Constitutional Constitutional Comment(s): Not cooperative and following minimal commands - Respiratory Details: Lung sounds diminished throughout. Some expiratory wheezing while he was agitated that was resolved with a nebulized breathing treatment. Currently on 6 L nasal cannula with oxygen saturation 96%. He gets 1250 mL up in the incentive spirometer. Right and left pleural chest tubes present to continuous wall suction. in the right pleural chest tube there was 40 mL out in 8 hours and 250 out in 24hours; in the left pleural, 140 mL serosanguineous drainage over 8hours, 400mL in 24 hours. No air leaks present. - Cardiovascular Details: Patient is in and out of Afib with RVR rate 140s-180s, also will be in sinus rhythm with rate in 70s-80s. Sternum stable. A/V epicardial pacemaker wires present, connected to generator, off secondary to competition with [place] rhythm. Palpable peripheral pulses bilaterally. No edema present. No calf pain or tenderness noted. Heart hugger in place without patient demonstrating appropriate use. Antiembolism stockings, SCDs present. - Gastrointestinal Gastrointestinal Comment(s): Abdomen soft, nontender, distended. Hypoactive bowel sounds present 4 quadr ants. Tolerating meds with water, diet poor. Unsure if patient has flatus as he is not answering the question. - Genitourinary Genitourinary Comment(s): Newman present draining, hematuria present. Output varies at 30-65 mL/hr - Integumentary Integumentary Comment(s): Skin is warm and dry with evidence of good perfusion. Anterior chest incision well approximated and covered with dry intact dressing. Left radial artery harvest site well approximated, dressing clean dry and intact. Patient has feeling in his left hand and can move all fingers appropriately with good cap refill. Left lower extremity EVH site well approximated without drainage, ALYX drains discontinued yesterday. - Neurologic Neurologic Comment(s): Only verbalizes yes, no and okay. Does not hold conversation. Strengths 5/5 in all four extremities and has equal movements. Neurologic: Present: CNII-XII intact - Musculoskeletal Musculoskeletal: Present: strength equal bilaterally - Allied health notes Allied health notes reviewed: nursing - Labs CBC & Chem 7: 11/11/19 06:25 11/11/19 04:45 Labs: Abnormal Lab Results - Last 24 Hours (Table) 11/10/19 11/10/19 11/10/19 Range/Units 09:08 10:14 11:06 WBC (3.8-10.6) k/uL RBC (4.30-5.90) m/uL Hgb (13.0-17.5) gm/dL Hct (39.0-53.0) % Plt Count (150-450) k/uL Neutrophils # (1.3-7.7) k/uL Sodium (137-145) mmol/L BUN (9-20) mg/dL Glucose (74-99) mg/dL POC Glucose (mg/dL) 144 H 138 H 138 H (75-99) mg/dL Calcium (8.4-10.2) mg/dL AST (17-59) U/L ALT (4-49) U/L Total Protein (6.3-8.2) g/dL Albumin (3.5-5.0) g/dL Crossmatch 11/10/19 11/10/19 11/10/19 Range/Units 13:41 15:07 16:01 WBC (3.8-10.6) k/uL RBC (4.30-5.90) m/uL Hgb (13.0-17.5) gm/dL Hct (39.0-53.0) % Plt Count (150-450) k/uL Neutrophils # (1.3-7.7) k/uL Sodium (137-145) mmol/L BUN (9-20) mg/dL Glucose (74-99) mg/dL POC Glucose (mg/dL) 204 H 170 H 147 H (75-99) mg/dL Calcium (8.4-10.2) mg/dL AST (17-59) U/L ALT (4-49) U/L Total Protein (6.3-8.2) g/dL Albumin (3.5-5.0) g/dL Crossmatch 11/10/19 11/10/19 11/10/19 Range/Units 17:13 18:10 19:06 WBC (3.8-10.6) k/uL RBC (4.30-5.90) m/uL Hgb (13.0-17.5) gm/dL Hct (39.0-53.0) % Plt Count (150-450) k/uL Neutrophils # (1.3-7.7) k/uL Sodium (137-145) mmol/L BUN (9-20) mg/dL Glucose (74-99) mg/dL POC Glucose (mg/dL) 188 H 282 H 202 H (75-99) mg/dL Calcium (8.4-10.2) mg/dL AST (17-59) U/L ALT (4-49) U/L Total Protein (6.3-8.2) g/dL Albumin (3.5-5.0) g/dL Crossmatch 11/10/19 11/10/19 11/10/19 Range/Units 20:04 21:32 22:48 WBC (3.8-10.6) k/uL RBC (4.30-5.90) m/uL Hgb (13.0-17.5) gm/dL Hct (39.0-53.0) % Plt Count (150-450) k/uL Neutrophils # (1.3-7.7) k/uL Sodium (137-145) mmol/L BUN (9-20) mg/dL Glucose (74-99) mg/dL POC Glucose (mg/dL) 159 H 124 H 143 H (75-99) mg/dL Calcium (8.4-10.2) mg/dL AST (17-59) U/L ALT (4-49) U/L Total Protein (6.3-8.2) g/dL Albumin (3.5-5.0) g/dL Crossmatch 11/10/19 11/11/19 11/11/19 Range/Units 23:35 02:19 04:44 WBC (3.8-10.6) k/uL RBC (4.30-5.90) m/uL Hgb (13.0-17.5) gm/dL Hct (39.0-53.0) % Plt Count (150-450) k/uL Neutrophils # (1.3-7.7) k/uL Sodium (137-145) mmol/L BUN (9-20) mg/dL Glucose (74-99) mg/dL POC Glucose (mg/dL) 138 H 143 H 145 H (75-99) mg/dL Calcium (8.4-10.2) mg/dL AST (17-59) U/L ALT (4-49) U/L Total Protein (6.3-8.2) g/dL Albumin (3.5-5.0) g/dL Crossmatch 11/11/19 11/11/19 11/11/19 Range/Units 04:45 04:45 06:25 WBC 14.1 H 14.1 H (3.8-10.6) k/uL RBC 2.12 L 2.11 L (4.30-5.90) m/uL Hgb 6.7 L* 6.7 L* (13.0-17.5) gm/dL Hct 20.0 L 20.1 L (39.0-53.0) % Plt Count 124 L 123 L (150-450) k/uL Neutrophils # 11.2 H (1.3-7.7) k/uL Sodium 135 L (137-145) mmol/L BUN 29 H (9-20) mg/dL Glucose 122 H (74-99) mg/dL POC Glucose (mg/dL) (75-99) mg/dL Calcium 8.0 L (8.4-10.2) mg/dL AST 119 H (17-59) U/L ALT 87 H (4-49) U/L Total Protein 4.8 L (6.3-8.2) g/dL Albumin 3.0 L (3.5-5.0) g/dL Crossmatch 11/11/19 11/11/19 Range/Units 06:25 07:36 WBC (3.8-10.6) k/uL RBC (4.30-5.90) m/uL Hgb (13.0-17.5) gm/dL Hct (39.0-53.0) % Plt Count (150-450) k/uL Neutrophils # (1.3-7.7) k/uL Sodium (137-145) mmol/L BUN (9-20) mg/dL Glucose (74-99) mg/dL POC Glucose (mg/dL) 262 H (75-99) mg/dL Calcium (8.4-10.2) mg/dL AST (17-59) U/L ALT (4-49) U/L Total Protein (6.3-8.2) g/dL Albumin (3.5-5.0) g/dL Crossmatch See Detail Assessment and Plan Assessment: 1. Symptomatic multivessel coronary artery disease, recent non-STEMI, status post 5 vessel CABG 2. Leukocytosis, unknown origin, may be reactive, resolving 3. Previous stent placement to the proximal circumflex and ostial OM1 4. History of hypertension 5. History of hyperlipidemia 6. Chronic ongoing tobacco dependence 7. Mild COPD, preoperative FEV1 60% of predicted value 8. Right internal carotid artery stenosis 50-69% 9. History of peripheral arterial disease with previous arthrectomy and INSERT MOLDING OPERATOR of the left SFA and atherectomy and INSERT MOLDING OPERATOR of the left WHIZZER with stenting of the left BRIAN 10. Poorly controlled diabetes mellitus type 2, admission hemoglobin A1c 9.1% 11. History of bladder cancer status post radiation, chemotherapy treatment and bladder surgery 12. Occasional marijuana use 13. Medication noncompliance 14. Family history of early onset coronary artery disease 15. Postoperative acute blood loss anemia, expected 16. Postoperative confusion, unexpected 17. Mild ISAAC, creatinine today 1.09, yesterday 1.11 18. New onset Afib with RVR, status post left atrial appendage ligation 19. New onset hematuria from patient pulling at newman catheter Plan: 1. Continue aspirin, statin, Plavix, beta gaurav therapy. Will increase beta gaurav to 50 mg twice daily. Continue Cozaar 25 mg daily 2. Will transition to oral amiodorone. Patient will likely need anticoagulation but all lines and tubes will need to be discontinued first. 3. Continue to monitor bilateral pleural chest tube drainage. 4. May leave arterial line for lab draws and can discontinue if line no longer works. 5. Continue oral Cardizem for radial artery support. Do not discontinue CCB without discussing with cardiothoracic surgery 6. Wean O2 as tolerated. Encourage incentive spirometry use 10 times every hour while awake. Bronchodilators per pulmonology. 7. Increase activity as tolerated. Up in chair for all meals, ambulate when stable and able. PT/OT/cardiac rehab consulted 8. Will monitor daily labs and x-rays. Elective replacement per protocol. 9. Continue Tylenol for pain management, hold narcotics and toradol. 10. GI/DVT prophylaxis 11. Insulin management per primary care service 12. Reorient patient PRN 13. Continue to encourage oral intake, ensure supplements ordered, if unable to meet caloric intake we may need to place NG tube. 14. Transfuse 1 unit PRBC for Hgb 6.7 15. Continue newman for the next 24 for strict intake and output measurements. 16. More recommendations to follow Time with Patient: Greater than 30
[2019-11-11] MEDS: HEPARIN SODIUM,PORCINE 5,000 UNIT/ML 1 ML VIAL SQ SCH ×2 (09:44→15:27)
[2019-11-11] MEDS: PANTOPRAZOLE 40 MG TABLET PO SCH (09:45)
[2019-11-11] MEDS: ASCORBIC ACID 500 MG TAB PO SCH ×2 (09:45→17:23)
[2019-11-11] MEDS: CLOPIDOGREL 75 MG TAB PO SCH (09:45)
[2019-11-11] MEDS: ASPIRIN 325 MG TAB PO SCH (09:45)
[2019-11-11] MEDS: FERROUS SULFATE 325 MG TAB PO SCH ×2 (09:45→17:23)
[2019-11-11] MEDS: ATORVASTATIN 40 MG TAB PO SCH (09:45)
[2019-11-11] MEDS: METOPROLOL TARTRATE 50 MG TAB PO SCH ×2 (09:46→22:26)
[2019-11-11] MEDS: MUPIROCIN 2% OINT 22 GM TUBE NASAL SCH ×2 (09:46→22:27)
[2019-11-11 09:54] LABS: Glucose,Whole Blood 163 mg/dL (75-99)
[2019-11-11] MEDS: LACTATED RINGERS 1,000 ML IV SCH (10:41)
[2019-11-11 11:07] LABS: Glucose,Whole Blood 153 mg/dL (75-99)
[2019-11-11 11:58] LABS: Glucose,Whole Blood 164 mg/dL (75-99)
[2019-11-11] MEDS: AMIODARONE 300 MG in DEXTROSE 5% IN WATER 250 ML IV PRN ×4 (11:59→20:49)
[2019-11-11] MEDS: FUROSEMIDE 10 MG/ML 2 ML VIAL IV SCH ×2 (12:36→15:27)
--- NOTE | 2019-11-11 12:37 | CDI ---
Documentation Clarification Form Date: 11/11/2019 12:23:23 PM From: Muriel Elizabeth RN, CCDS Admit Date: 11/07/2019 07:36:00 AM Patient Name: Dillan Reis Visit Number: [id number] ATTENTION: The Clinical Documentation Specialists (CDI) and [facility] Coding Staff appreciate your assistance in clarifying documentation. Please respond to the clarification below the line at the bottom and electronically sign. The CDI & [facility] Coding staff will review the response and follow-up if needed. Please note: Queries are made part of the Legal Health Record. If you have any questions, please contact the author of this message via ITS. Dr. Sunday Hewitt Postoperative confusion unexpected has been documented in the progress notes and requires further specificity. History/Risk Factors: CAD, DM, HTN, PVD, Hx of bladder CA Clinical Indicators: 11/09 Cardiology Progress note: "He has no neurological deficits motor adams, but there is confusion, altered mentation." 11/10 CV Surgery: "The patient is currently sitting up in a recliner in the intensive care unit, he is confused restless, agitated and in A Fib with RVR with HR 180s, third 150mg Amio bolus given as well as 5 mg Lopressor IVP, defibrillator pads placed on patient and he was placed back into bed. Postoperative confusion, unexpected but potential outcome given cardiopulmonary bypass and intraoperative cardiac arrest. Assessment: Postoperative confusion, unexpected 11/09 Pulmonary: The patient was extubated within 6 hours and currently the patient is on oxygen by nasal cannula at 5 L. He is pleasantly confused this morning. The patient is confused. 12 postop confusion, consider CVA as there may be some signs of left-sided weakness intermittently on today's evaluation." 11/06-11/10 Labs: WBC 19.7/10.7/11.2/12.7/14.1, Hgb 13.8/8.3/7.9/7/6.7, Neutrophils 16.2/8.7/9.4/11.2, BUN 16/14/15/24/29, Creatinine .76/.75/.76/1.11/1.09 11/10 CXR: Interval catheter and tube removal. Low lung volumes, rotated exam. Aeration is thought to be improved." Treatment: Amio Gtt per protocol 11/09 K+ 10 meq IVPB Q 1 hrs x 2 bags In your professional opinion, please clarify the etiology of the Altered Mental Status and postoperative confusion, if known. Metabolic Encephalopathy (specify Underlying Medical Illness) Other condition (please specify) Unable to determine (Last Revision: July 2017) metabolic encephalopathy s/p cardiopulmonary bypass MTDD
[2019-11-11] MEDS ORDERED: LORazepam 2 MG/ML INJ IV STA (12:38)
[2019-11-11] MEDS: ACETAMINOPHEN TAB 500 MG TAB PO PRN (12:49)
[2019-11-11] MEDS: LOSARTAN 25 MG TAB PO SCH (12:50)
[2019-11-11 13:18] LABS: Glucose,Whole Blood 180 mg/dL (75-99)
--- NOTE | 2019-11-11 13:47 | P.PN ---
Subjective Progress Note Date: 11/11/19 Principal diagnosis: Patient is a [id number] male was recently discharged from the hospital came back in with the chest pain pressure-like sensation lasted for a few hours nonexertional did have elevated troponins. Patient had a triple-vessel disease patient is scheduled to undergo coronary artery bypass grafting on Friday went home started smoking again started having chest pain. Chest x-ray was read as pulmonary edema. It is not elevated patient clinically doesn't have any JVD or crackles or wheezing. 11/09/2019 Patient is status post CABG he was extubated the last night. Patient is presently on norepinephrine, milrinone, IV insulin. Patient still has a Allen- Juni in place most of the management is being done by cardiac thoracic surgery patient was bit confused earlier today doing well now. 11/10/2019 Patient is still confused as per the family his confusion is better patient is a low-grade fever probably because of atelectasis a lot and blood cultures. Patient received Lasix for pulmonary edema, patient's mediastinal chest use with remote patient still has left pleural chest tubes Review of systems: Unable to obtain as patient is tired and sleepy All inpatient medications were reviewed and appropriate changes in these medications as dictated in the interval history and assessment and plan. 11/11/2019 Patient is seen and evaluated and follow-up currently remains in the ICU and is being closely monitored. Since hemoglobin was found to be 6.7 this morning and is currently receiving 1 unit of PRBCs. Potassium is 4.4, creatinine is 1.09, magnesium is 2.3. Patient went into atrial fibrillation with RVR and is being maintained on amiodarone drip and will transition to oral medications. Patient continues to have chest tubes along with indwelling Junior catheter which shows some hematuria as patient pulled it out. Patient has been afebrile with intermittent low-grade temps 99.7F and white count today is 14.1. Patient remains on an insulin drip and will continue at this time. Will continue to follow along closely with cardio thoracic surgery. Objective - Vital Signs Vital signs: Vital Signs Temp 37.4 F L 11/11/19 09:46 Pulse 80 11/11/19 09:46 Resp 25 H 11/11/19 09:46 BP 106/60 11/11/19 09:46 Pulse Ox 99 11/11/19 09:46 Intake & Output 11/10/19 11/11/19 11/11/19 18:59 06:59 18:59 Intake Total 458.533 293.150 64.687 Output Total 665 853 175 Balance -206.467 -559.850 -110.313 Weight 85.1 kg 84.6 kg Intake: IV 210 273 23 Lactated Ringers 1,000 ml 210 240 20 @ 20 mls/hr IV .Q24H YVAN Rx#:[id number] pressure bag 33 3 Intake, IV Titration 128.533 20.150 41.687 Amount Insulin Regular 100 unit 28.533 20.150 41.687 In Sodium Chloride 0.9% 100 ml @ Per Protocol IV .Q0M YVAN Rx#:[id number] Potassium Chloride 10 meq 100 In Water For Injection 1 100ml.bag @ 100 mls/hr IVPB Q1H YVAN Rx#: [id number] Oral 120 Blood Product 0 Rc As-1 Unit 0 [id number] Output: Chest Tube Drainage 270 243 110 Left Pleural Chest Tube 140 170 50 Left Pleural/Mediastinal 25 Right Pleural Chest Tube 100 73 60 Right Pleural/Mediastinal 5 Urine 395 610 65 Other: Voiding Method Indwelling Catheter Indwelling Catheter ABP, PAP, CO, CI - Last Documented Arterial Blood Pressure 110/50 Pulmonary Artery Pressure 30/17 Cardiac Output 4.5 Cardiac Index 2.3 - Exam GENERAL: The patient awake sitting up in bed, not in any acute distress. Aphasic. Well developed, well nourished. HEENT: Pupils are round and equally reacting to light. EOMI. No scleral icterus. No conjunctival pallor. Normocephalic, atraumatic. No pharyngeal erythema. No thyromegaly. CARDIOVASCULAR: S1 and S2 present. No murmurs, rubs, or gallops. Continues with left 2 pleural chest tubes. PULMONARY: Diminished breath sounds bilaterally Bibasilar crackles, no wheezing was appreciated. Heart hugger noted and surgical dressing is dry and intact midsternum ABDOMEN: Soft, nontender, nondistended, normoactive bowel sounds. No palpable organomegaly. MUSCULOSKELETAL: No joint swelling or deformity. EXTREMITIES: No cyanosis, clubbing, or pedal edema. NEUROLOGICAL: Gross neurological examination did not reveal any focal deficits. SKIN: No rashes. - Labs CBC & Chem 7: 11/11/19 06:25 11/11/19 11:52 Labs: Abnormal Lab Results - Last 24 Hours (Table) 11/07/19 11/10/19 11/10/19 Range/Units 06:04 13:41 15:07 WBC (3.8-10.6) k/uL RBC (4.30-5.90) m/uL Hgb (13.0-17.5) gm/dL Hct (39.0-53.0) % Plt Count (150-450) k/uL Neutrophils # (1.3-7.7) k/uL Sodium (137-145) mmol/L BUN (9-20) mg/dL Glucose (74-99) mg/dL POC Glucose (mg/dL) 204 H 170 H (75-99) mg/dL Calcium (8.4-10.2) mg/dL AST (17-59) U/L ALT (4-49) U/L Total Protein (6.3-8.2) g/dL Albumin (3.5-5.0) g/dL Crossmatch See Detail 11/10/19 11/10/19 11/10/19 Range/Units 16:01 17:13 18:10 WBC (3.8-10.6) k/uL RBC (4.30-5.90) m/uL Hgb (13.0-17.5) gm/dL Hct (39.0-53.0) % Plt Count (150-450) k/uL Neutrophils # (1.3-7.7) k/uL Sodium (137-145) mmol/L BUN (9-20) mg/dL Glucose (74-99) mg/dL POC Glucose (mg/dL) 147 H 188 H 282 H (75-99) mg/dL Calcium (8.4-10.2) mg/dL AST (17-59) U/L ALT (4-49) U/L Total Protein (6.3-8.2) g/dL Albumin (3.5-5.0) g/dL Crossmatch 11/10/19 11/10/19 11/10/19 Range/Units 19:06 20:04 21:32 WBC (3.8-10.6) k/uL RBC (4.30-5.90) m/uL Hgb (13.0-17.5) gm/dL Hct (39.0-53.0) % Plt Count (150-450) k/uL Neutrophils # (1.3-7.7) k/uL Sodium (137-145) mmol/L BUN (9-20) mg/dL Glucose (74-99) mg/dL POC Glucose (mg/dL) 202 H 159 H 124 H (75-99) mg/dL Calcium (8.4-10.2) mg/dL AST (17-59) U/L ALT (4-49) U/L Total Protein (6.3-8.2) g/dL Albumin (3.5-5.0) g/dL Crossmatch 11/10/19 11/10/19 11/11/19 Range/Units 22:48 23:35 02:19 WBC (3.8-10.6) k/uL RBC (4.30-5.90) m/uL Hgb (13.0-17.5) gm/dL Hct (39.0-53.0) % Plt Count (150-450) k/uL Neutrophils # (1.3-7.7) k/uL Sodium (137-145) mmol/L BUN (9-20) mg/dL Glucose (74-99) mg/dL POC Glucose (mg/dL) 143 H 138 H 143 H (75-99) mg/dL Calcium (8.4-10.2) mg/dL AST (17-59) U/L ALT (4-49) U/L Total Protein (6.3-8.2) g/dL Albumin (3.5-5.0) g/dL Crossmatch 11/11/19 11/11/19 11/11/19 Range/Units 04:44 04:45 04:45 WBC 14.1 H (3.8-10.6) k/uL RBC 2.12 L (4.30-5.90) m/uL Hgb 6.7 L* (13.0-17.5) gm/dL Hct 20.0 L (39.0-53.0) % Plt Count 124 L (150-450) k/uL Neutrophils # 11.2 H (1.3-7.7) k/uL Sodium 135 L (137-145) mmol/L BUN 29 H (9-20) mg/dL Glucose 122 H (74-99) mg/dL POC Glucose (mg/dL) 145 H (75-99) mg/dL Calcium 8.0 L (8.4-10.2) mg/dL AST 119 H (17-59) U/L ALT 87 H (4-49) U/L Total Protein 4.8 L (6.3-8.2) g/dL Albumin 3.0 L (3.5-5.0) g/dL Crossmatch 11/11/19 11/11/19 11/11/19 Range/Units 06:25 06:25 07:36 WBC 14.1 H (3.8-10.6) k/uL RBC 2.11 L (4.30-5.90) m/uL Hgb 6.7 L* (13.0-17.5) gm/dL Hct 20.1 L (39.0-53.0) % Plt Count 123 L (150-450) k/uL Neutrophils # (1.3-7.7) k/uL Sodium (137-145) mmol/L BUN (9-20) mg/dL Glucose (74-99) mg/dL POC Glucose (mg/dL) 262 H (75-99) mg/dL Calcium (8.4-10.2) mg/dL AST (17-59) U/L ALT (4-49) U/L Total Protein (6.3-8.2) g/dL Albumin (3.5-5.0) g/dL Crossmatch See Detail 11/11/19 11/11/19 11/11/19 Range/Units 09:09 09:52 11:05 WBC (3.8-10.6) k/uL RBC (4.30-5.90) m/uL Hgb (13.0-17.5) gm/dL Hct (39.0-53.0) % Plt Count (150-450) k/uL Neutrophils # (1.3-7.7) k/uL Sodium (137-145) mmol/L BUN (9-20) mg/dL Glucose (74-99) mg/dL POC Glucose (mg/dL) 216 H 163 H 153 H (75-99) mg/dL Calcium (8.4-10.2) mg/dL AST (17-59) U/L ALT (4-49) U/L Total Protein (6.3-8.2) g/dL Albumin (3.5-5.0) g/dL Crossmatch Assessment and Plan Assessment: -Acute non-ST elevation myocardial infarction: Coronary artery diseasepatient is status post five-vessel coronary artery bypass grafting, patient is presently on aspirin and statin beta gaurav, amiodarone drip, oral Cardizem -New onset paroxysmal atrial fibrillation with RVR, currently on amiodarone drip and oral Cardizem -Leukocytosis reactive is not requiring any medications -Possible congestive heart failure chronic diastolic dysfunction with acute exacerbation -Low-grade fever probably because of atelectasis; patient to continue with incentive spirometry at least 10 times every hour while awake, improving -Hypertension -Hyperlipidemia -Type 2 diabetes mellitus patient is presently on IV insulin drip. -COPD without any acute exacerbation -Severe peripheral vascular disease -History of bladder cancer status post chemotherapy and radiation -Continued nicotine use and marijuana use
--- NOTE | 2019-11-11 14:33 | PN ---
PROGRESS NOTE He has stabilized, hemodynamically stable. Decent urine output. He had a paroxysmal atrial fib, now in sinus rhythm on amiodarone drip. Continue both amiodarone and Cardizem for the time being. Blood pressure is good. Urine output is fairly decent. The patient, however, still appears to be confused, but has no motor deficits. It is unclear if this is ICU psychosis or only a cognitive impairment after bypass surgery. However, at this time. We will continue to follow him closely. Hemodynamically stable. Blood pressure is good. Some confusion is noted. Disorientation is noted, but no motor deficits. Overall appears to be a bit lethargic. Prognosis remains guarded. MMODL / IJN: [id number] /
--- NOTE | 2019-11-11 14:38 | CT ---
EXAMINATION TYPE: CT brain wo con DATE OF EXAM: 11/11/2019 COMPARISON: 01/09/2019 HISTORY: 64-year-old male confusion, Altered mental status TECHNIQUE: Examination was done in axial plane without intravenous contrast. Coronal and sagittal r econstructions performed. CT DLP: 1158.4 mGycm Automated exposure control for dose reduction was used. FINDINGS: There is no evidence of acute intracranial hemorrhage, acute ischemic changes, mass, mass-effect, or extra-axial fluid collection. There is no effacement of cerebral sulci or basal subarachnoid cister ns. There is no hydrocephalus. There is no midline shift. Metcalf-white matter distinction is preserv ed. 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 New deep white matter focal areas of hypodensity within the left greater than right cerebral hemisphe res, for example, left centrum semiovale and alonso radiata, axial images 34 and 32 as well as the le ft periatrial region, axial image 28. Rightward nasal septal deviation. Mild mucosal thickening left sphenoid sinus. Mastoid air cells well pneumatized. Orbits and globes are intact. IMPRESSION: 1. Patchy periventricular and deep white matter changes, left greater than right, have significantly progressed from 01/09/2019. Areas of subacute ischemia are not excluded. Demyelinating disease or othe r infectious/inflammatory etiologies are also possible. MRI can further evaluate. 2. No acute intracranial hemorrhage or midline shift.
--- NOTE | 2019-11-11 14:45 | P.PN ---
Subjective Progress Note Date: 11/11/19 This is a 64-year-old male patient with coronary artery disease, noncompliant to medication. The patient came in with subendocardial infarction and cardiac catheterization showed diffuse coronary artery disease with critical stenosis. The patient underwent coronary artery bypass today. The patient underwent bypass 5 with GR to LAD, radial artery graft to acute marginal, saphenous finger after 2 posterior lateral and sick ration saphenous vein to first and second diagonal performed on cardiac pulmonary bypass with beating heart. Left atrial appendage was also added. The patient currently is in the intensive care unit. I centimeters in regards to the ICU. He was initially on a SIMV mode of ventilation at the rate of 12 with a tidal volume of 500 and FiO2 of 100% with a PEEP of 5 and a pressure support of 5. The blood gas showed a pH of 7.318 with a pCO2 of 49 and pO2 of 226. The chest x-ray postop showed volume overload with pulmonary vascular congestion and interstitial edema. The lines and tubes are all in good location. Based on all this, I increased the respiratory rate of 24. I do not FiO2 down to 60%. Current cardiac output is at 2.6 with an index of 5. The patient has 2 mediastinal 1 right pleural and 1 left pleural chest tube. Ultrasound of the sternal chest tubes has been around 150 mL since he arrived from the operating room. No evidence of any air leak. The patient is currently on a Cardizem drip and milrinone drip and the patient is on insulin drip for blood sugar control.he is well sedated. Is quite symptoms with the mechanical ventilator. Postoperative hemoglobin is at 8.2. Platelet count is down to 78. On today's evaluation of 11/09/2019, I'm seeing the patient for a follow-up. The patient was operated on yesterday and the patient underwent a five-vessel bypass surgery including a GR and the radial artery harvest. The patient was extubated within 6 hours and currently the patient is on oxygen by nasal cannula at 5 L. He is pleasantly confused this morning. He is able to sit up on a recliner. Hemodynamically, he did have some early of hypotension earlier this morning and for that reason the patient was given 750 mL of colloids and following that he was started on low-dose levo fed at 0.03 g per KG per minute. The patient remains on Primacor running at 0.125 g and the patient is also on Cardizem at 5 mg an hour. Insulin drip is running at 2.5 units an hour. Hemodynamically, the patient's cardiac output is at 4.2 with an index of 2.2. The pulmonary artery pressure 28/12. CVP is at 11. Cardiac output is at 4.2. He is in his normal sinus rhythm. He has a backup VVI at the rate of 50. His chest x-rays showing small bilateral apical pneumothoraces. All of the chest tubes are in good location. The right and left pleural chest tube connected and they have drained approximately 130 mL over the past 8 hours. He is tender tubes are also connected and it has drained approximately 140 mL over the past 8 hours. The patient otherwise has no specific complaints. Sternum stable clean and intact. He is producing urine output in the order of 20-30 mL an hour. No other significant events overnight. Hemoglobin stable at 7.9. The platelet count improved to 102. On 11/10/2019, the patient is postop day #2. The patient is confused. He is nonverbal. He is not answering questions and is not following any commands. Upon watching him, I felt that the left side of the body slightly cachectic compared to the right. Nevertheless, the same as the patient was not cheered by the nursing staff been observing this patient longer to me. He has no preferential gaze toseizure activity. No reported shortness of breath or respiratory distress at this point in time. Mediastinal chest tubes and the pleural chest tubes are all in place. The patient has an AV epicardial pacer wire grounded to generator. As of yesterday, the patient was taken off the pressors. The patient is currently off the levo fed and he is off the Primacor. The patient also had the ALYX drains removed from the left lower extremity and arm. No other significant issues for now. No cardiac arrhythmias. No nausea. No vomiting. No emesis. He is resting comfortably in bed. The patient's hemoglobin is at 7.0. Was a causative 4.7. Diminished pulmonary vascular congestion and infiltration of the right lung base. There is resolution of the previously described bilateral pneumothoraces. On today's evaluation of 11/11/2019, the patient remains confused. I was told that he was able to say some few words. I was also told by the nursing staff that the patient was witnessed EXTREMITIES WITHOUT ANY LIMITATION IN PATIENT HAV ING ANY FOCAL NEUROLOGICAL DEFICIT. NOTE THAT THE PATIENT EARLIER THIS MORNING WITH ATRIAL FIBRILLATION WITH RAPID VENTRICULAR RESPONSE. HIS HEART RATE WENT UP TO 180 beats per minute without any significant hypotension. That point, the patient was given amiodarone boluses and the patient received a total of 3 boluses prior to my arrival. He was also given 5 mg of IV Lopressor. Her, bilateral, the patient was still in atrial fibrillation. He was trying to hurt at times he thought it was going down. His baseline rhythm was atrial fibrillation and heart rate was in the range of 100-120. The patient denied having any chest pain. Sternum was stable treatment intact. No reported fever or chills. The mediastinal chest 11 already been removed yesterday. The right and the left pleural chest tubes are still in place and output is being noted. Chest x-ray from this morning showed adequate expansion of both lungs without evidence of any pneumothorax. No evidence of any pulmonary edema. The patient was being given Lasix 20 mg IV push every 12 hours. Hemoglobin from this morning was down to 6.7 and the patient was ordered to get a unit of packed RBC. Currently is postoperative #3 post 5 vessel coronary artery bypass surgery. Objective - Vital Signs Vital signs: Vital Signs Temp 99.7 F H 11/11/19 12:55 Pulse 78 11/11/19 12:55 Resp 24 11/11/19 12:55 BP 106/51 11/11/19 12:55 Pulse Ox 95 11/11/19 12:55 Intake & Output 11/10/19 11/11/19 11/11/19 18:59 06:59 18:59 Intake Total 458.533 293.150 632.649 Output Total 665 853 175 Balance -206.467 -559.850 457.649 Weight 85.1 kg 84.6 kg Intake: IV 210 273 23 Lactated Ringers 1,000 ml 210 240 20 @ 20 mls/hr IV .Q24H [facility] Rx#:[id number] pressure bag 33 3 Intake, IV Titration 128.533 20.150 249.649 Amount Amiodarone 360 mg In 200 Dextrose 5% in Water 200 ml @ 1 MG/MIN 33.333 mls/ hr IV .Q6H [facility] Rx#: [id number] Insulin Regular 100 unit 28.533 20.150 49.649 In Sodium Chloride 0.9% 100 ml @ Per Protocol IV .Q0M [facility] Rx#:[id number] Potassium Chloride 10 meq 100 In Water For Injection 1 100ml.bag @ 100 mls/hr IVPB Q1H [facility] Rx#: [id number] Oral 120 Blood Product 310 Rc As-1 Unit 310 [id number] Other 50 Rc As-1 Unit 50 [id number] Output: Chest Tube Drainage 270 243 110 Left Pleural Chest Tube 140 170 50 Left Pleural/Mediastinal 25 Right Pleural Chest Tube 100 73 60 Right Pleural/Mediastinal 5 Urine 395 610 65 Other: Voiding Method Indwelling Catheter Indwelling Catheter ABP, PAP, CO, CI - Last Documented Arterial Blood Pressure 110/50 Pulmonary Artery Pressure 30/17 Cardiac Output 4.5 Cardiac Index 2.3 - Exam - Constitutional Constitutional Comment(s): Not cooperative and following minimal commands - Respiratory Details: Lung sounds diminished throughout. Some expiratory wheezing while he was agitated that was resolved with a nebulized breathing treatment. Currently on 6 L nasal cannula with oxygen saturation 96%. He gets 1250 mL up in the incentive spirometer. Right and left pleural chest tubes present to continuous wall suction. in the right pleural chest tube there was 40 mL out in 8 hours and 250 out in 24hours; in the left pleural, 140 mL serosanguineous drainage over 8hours, 400mL in 24 hours. No air leaks present. - Cardiovascular Details: Patient is in and out of Afib with RVR rate 140s-180s, also will be in sinus rhythm with rate in 70s-80s. Sternum stable. A/V epicardial pacemaker wires present, connected to generator, off secondary to competition with upper mattaponi rhythm. Palpable peripheral pulses bilaterally. No edema present. No calf pain or tenderness noted. Heart hugger in place without patient demonstrating appropriate use. Antiembolism stockings, SCDs present. - Gastrointestinal Gastrointestinal Comment(s): Abdomen soft, nontender, distended. Hypoactive bowel sounds present 4 mike drants. Tolerating meds with water, diet poor. Unsure if patient has flatus as he is not answering the question. - Genitourinary Genitourinary Comment(s): Junior present draining, hematuria present. Output varies at 30-65 mL/hr - Integumentary Integumentary Comment(s): Skin is warm and dry with evidence of good perfusion. Anterior chest incision well approximated and covered with dry intact dressing. Left radial artery harvest site well approximated, dressing clean dry and intact. Patient has feeling in his left hand and can move all fingers appropriately with good cap refill. Left lower extremity EVH site well approximated without drainage, ALYX drains discontinued yesterday. - Neurologic Neurologic Comment(s): Only verbalizes yes, no and okay. Does not hold conversation. Strengths 5/5 in all four extremities and has equal movements. Neurologic: Present: CNII-XII intact - Musculoskeletal Musculoskeletal: Present: strength equal bilaterally - Labs CBC & Chem 7: 11/11/19 06:25 11/11/19 11:52 Labs: Abnormal Lab Results - Last 24 Hours (Table) 11/07/19 11/10/19 11/10/19 Range/Units 06:04 15:07 16:01 WBC (3.8-10.6) k/uL RBC (4.30-5.90) m/uL Hgb (13.0-17.5) gm/dL Hct (39.0-53.0) % Plt Count (150-450) k/uL Neutrophils # (1.3-7.7) k/uL Sodium (137-145) mmol/L BUN (9-20) mg/dL Glucose (74-99) mg/dL POC Glucose (mg/dL) 170 H 147 H (75-99) mg/dL Calcium (8.4-10.2) mg/dL AST (17-59) U/L ALT (4-49) U/L Total Protein (6.3-8.2) g/dL Albumin (3.5-5.0) g/dL Crossmatch See Detail 11/10/19 11/10/19 11/10/19 Range/Units 17:13 18:10 19:06 WBC (3.8-10.6) k/uL RBC (4.30-5.90) m/uL Hgb (13.0-17.5) gm/dL Hct (39.0-53.0) % Plt Count (150-450) k/uL Neutrophils # (1.3-7.7) k/uL Sodium (137-145) mmol/L BUN (9-20) mg/dL Glucose (74-99) mg/dL POC Glucose (mg/dL) 188 H 282 H 202 H (75-99) mg/dL Calcium (8.4-10.2) mg/dL AST (17-59) U/L ALT (4-49) U/L Total Protein (6.3-8.2) g/dL Albumin (3.5-5.0) g/dL Crossmatch 11/10/19 11/10/19 11/10/19 Range/Units 20:04 21:32 22:48 WBC (3.8-10.6) k/uL RBC (4.30-5.90) m/uL Hgb (13.0-17.5) gm/dL Hct (39.0-53.0) % Plt Count (150-450) k/uL Neutrophils # (1.3-7.7) k/uL Sodium (137-145) mmol/L BUN (9-20) mg/dL Glucose (74-99) mg/dL POC Glucose (mg/dL) 159 H 124 H 143 H (75-99) mg/dL Calcium (8.4-10.2) mg/dL AST (17-59) U/L ALT (4-49) U/L Total Protein (6.3-8.2) g/dL Albumin (3.5-5.0) g/dL Crossmatch 11/10/19 11/11/19 11/11/19 Range/Units 23:35 02:19 04:44 WBC (3.8-10.6) k/uL RBC (4.30-5.90) m/uL Hgb (13.0-17.5) gm/dL Hct (39.0-53.0) % Plt Count (150-450) k/uL Neutrophils # (1.3-7.7) k/uL Sodium (137-145) mmol/L BUN (9-20) mg/dL Glucose (74-99) mg/dL POC Glucose (mg/dL) 138 H 143 H 145 H (75-99) mg/dL Calcium (8.4-10.2) mg/dL AST (17-59) U/L ALT (4-49) U/L Total Protein (6.3-8.2) g/dL Albumin (3.5-5.0) g/dL Crossmatch 11/11/19 11/11/19 11/11/19 Range/Units 04:45 04:45 06:25 WBC 14.1 H 14.1 H (3.8-10.6) k/uL RBC 2.12 L 2.11 L (4.30-5.90) m/uL Hgb 6.7 L* 6.7 L* (13.0-17.5) gm/dL Hct 20.0 L 20.1 L (39.0-53.0) % Plt Count 124 L 123 L (150-450) k/uL Neutrophils # 11.2 H (1.3-7.7) k/uL Sodium 135 L (137-145) mmol/L BUN 29 H (9-20) mg/dL Glucose 122 H (74-99) mg/dL POC Glucose (mg/dL) (75-99) mg/dL Calcium 8.0 L (8.4-10.2) mg/dL AST 119 H (17-59) U/L ALT 87 H (4-49) U/L Total Protein 4.8 L (6.3-8.2) g/dL Albumin 3.0 L (3.5-5.0) g/dL Crossmatch 11/11/19 11/11/19 11/11/19 Range/Units 06:25 07:36 09:09 WBC (3.8-10.6) k/uL RBC (4.30-5.90) m/uL Hgb (13.0-17.5) gm/dL Hct (39.0-53.0) % Plt Count (150-450) k/uL Neutrophils # (1.3-7.7) k/uL Sodium (137-145) mmol/L BUN (9-20) mg/dL Glucose (74-99) mg/dL POC Glucose (mg/dL) 262 H 216 H (75-99) mg/dL Calcium (8.4-10.2) mg/dL AST (17-59) U/L ALT (4-49) U/L Total Protein (6.3-8.2) g/dL Albumin (3.5-5.0) g/dL Crossmatch See Detail 11/11/19 11/11/19 11/11/19 Range/Units 09:52 11:05 11:54 WBC (3.8-10.6) k/uL RBC (4.30-5.90) m/uL Hgb (13.0-17.5) gm/dL Hct (39.0-53.0) % Plt Count (150-450) k/uL Neutrophils # (1.3-7.7) k/uL Sodium (137-145) mmol/L BUN (9-20) mg/dL Glucose (74-99) mg/dL POC Glucose (mg/dL) 163 H 153 H 164 H (75-99) mg/dL Calcium (8.4-10.2) mg/dL AST (17-59) U/L ALT (4-49) U/L Total Protein (6.3-8.2) g/dL Albumin (3.5-5.0) g/dL Crossmatch 11/11/19 Range/Units 13:17 WBC (3.8-10.6) k/uL RBC (4.30-5.90) m/uL Hgb (13.0-17.5) gm/dL Hct (39.0-53.0) % Plt Count (150-450) k/uL Neutrophils # (1.3-7.7) k/uL Sodium (137-145) mmol/L BUN (9-20) mg/dL Glucose (74-99) mg/dL POC Glucose (mg/dL) 180 H (75-99) mg/dL Calcium (8.4-10.2) mg/dL AST (17-59) U/L ALT (4-49) U/L Total Protein (6.3-8.2) g/dL Albumin (3.5-5.0) g/dL Crossmatch Assessment and Plan Plan: 1 coronary artery disease without stable angina and non-STEMI. The patient underwent five-vessel bypass surgery. CABG 5 with GR to LAD, left radial artery to obtuse marginal, saphenous vein to posterior lateral, sequential saphenous vein to first and second diagonal performed on cardiopulmonary bypass with beating heart. Epi-aortic ultrasound and ligation of left atrial appendage with Ben clip. The patient is postop day #3. Hemodynamically stable. Pressors of been all discontinued. No active inotropes running at this point in time. 2 post thoracotomy, currently intubated on mechanical ventilator, and the patient was extubated . No evidence of any air leak. The follow-up chest x-ray from today shows no evidence of any pneumothoraces. Meanwhile, the mediastinal tubes have been removed. The patient has a right and a left-sided chest tube in place output being minimal at this point in time., Hemoglobin today to 6.7 and the patient will be receiving a unit of packed RBC 3 blood loss anemia , expected outcome of surgery, and this is likely of blood loss anemia 4 COPD with an FEV1 of 60% of predicted at baseline 5 new-onset atrial fibrillation with rapid ventricular response currently on amiodarone, expected outcome related to cardiac surgery 6 Peripheral vascular disease with prior peripheral stent placements 7 Right carotid artery stenosis at 50-69% 7 History of marijuana use 8 Diabetes mellitus, type II, insulin drip for blood sugar control, running at 1.5 units per hour. 9 History of bladder cancer status post radiation/chemotherapy and subsequent surgery 10 History of noncompliance 11 altered mentation 12 postop confusion, consider CVA , no evidence of any focal neurological deficit. The patient is speaking few sentences every quite confused. Plan May discontinue the pleural chest. This was discussed with cardiothoracic surgery. Transfused with a unit of packed RBC Continue monitoring the hemoglobin Continue aspirin and Plavix and beta blockers Metoprolol dose has been increased up to 50 mg by mouth twice a day Proceed with amiodarone per protocol loading and subsequent maintenance regarding his new onset atrial fibrillation. May the CAT scan of the brain if there are no improvement in his confusion Continue insulin drip for blood sugar control Lasix 20 mg every 8 hours her surgery incentive spirometer use we'll continue to follow. Keep the patient ICU for another 24 hours.
[2019-11-11 15:42] LABS: Glucose,Whole Blood 167 mg/dL (75-99)
[2019-11-11 16:44] LABS: HCT 22.6 % (39.0-53.0); HGB 7.7 gm/dL (13.0-17.5); MCH 32.1 pg (25.0-35.0); MCHC 34.1 g/dL (31.0-37.0); MCV 94.1 fL (80.0-100.0); Mean Platelet Volume 9.9; Platelet Count 125 k/uL (150-450); RBC 2.41 m/uL (4.30-5.90); RDW 14.3 % (11.5-15.5); WBC 14.5 k/uL (3.8-10.6)
[2019-11-11 16:59] LABS: Glucose,Whole Blood 143 mg/dL (75-99)
[2019-11-11] MEDS: METOPROLOL TARTRATE 25 MG TAB PO SCH (17:27)
[2019-11-11 17:58] LABS: Glucose,Whole Blood 135 mg/dL (75-99)
[2019-11-11 18:54] LABS: Glucose,Whole Blood 156 mg/dL (75-99)
[2019-11-11 20:36] LABS: Glucose,Whole Blood 149 mg/dL (75-99)
[2019-11-11] MEDS: HALOPERIDOL LACTATE 5 MG/ML 1 ML VIAL IVP PRN (22:22)
[2019-11-11] MEDS: AMIODARONE 200 MG TAB PO SCH (22:26)
[2019-11-11] MEDS: SENNOSIDES-DOCUSATE SODIUM 1 EACH TAB PO SCH (22:26)
[2019-11-11] MEDS: INSULIN REGULAR 100 UNIT in SODIUM CHLORIDE 0.9% 100 ML IV SCH (22:33)
[2019-11-11 22:35] LABS: Glucose,Whole Blood 147 mg/dL (75-99)
[2019-11-11 23:05] LABS: Glucose,Whole Blood 123 mg/dL (75-99)
[2019-11-12] LABS: Glucose,Whole Blood 97 mg/dL (75-99)
[2019-11-12] MEDS: HEPARIN SODIUM,PORCINE 5,000 UNIT/ML 1 ML VIAL SQ SCH ×4 (00:05→23:40)
[2019-11-12] MEDS: FUROSEMIDE 10 MG/ML 2 ML VIAL IV SCH ×2 (01:02→10:32)
[2019-11-12 01:03] LABS: Glucose,Whole Blood 92 mg/dL (75-99)
[2019-11-12] MEDS: HALOPERIDOL LACTATE 5 MG/ML 1 ML VIAL IVP PRN ×4 (01:53→08:40)
[2019-11-12 02:16] LABS: Glucose,Whole Blood 113 mg/dL (75-99)
[2019-11-12] MEDS: DILTIAZEM ORAL 30 MG TAB PO SCH ×3 (02:31→22:23)
[2019-11-12 03:04] LABS: Glucose,Whole Blood 150 mg/dL (75-99)
[2019-11-12 04:02] LABS: Glucose,Whole Blood 129 mg/dL (75-99)
[2019-11-12 05:06] LABS: Glucose,Whole Blood 138 mg/dL (75-99)
[2019-11-12 05:18] LABS: Basophils % (A) 0 %; Eosinophils # (A) 0.5 k/uL (0-0.7); Eosinophils % (A) 3 %; HCT 27.3 % (39.0-53.0); Lymphocytes # (A) 1.4 k/uL (1.0-4.8); Lymphocytes % (A) 8 %; MCH 31.9 pg (25.0-35.0); MCHC 34.2 g/dL (31.0-37.0); MCV 93.5 fL (80.0-100.0); Mean Platelet Volume 10.3; Monocytes # (A) 1.3 k/uL (0-1.0); Monocytes % (A) 8 %; Neutrophils # (A) 13.7 k/uL (1.3-7.7); Neutrophils % (A) 78 %; Platelet Count 133 k/uL (150-450); RBC 2.92 m/uL (4.30-5.90); RDW 14.5 % (11.5-15.5); WBC 17.6 k/uL (3.8-10.6)
[2019-11-12 05:20] LABS: HGB 9.3 gm/dL (13.0-17.5)
[2019-11-12 05:43] LABS: Calcium 7.9 mg/dL (8.4-10.2); Potassium 3.8 mmol/L (3.5-5.1)
[2019-11-12 06:06] LABS: Glucose,Whole Blood 138 mg/dL (75-99)
[2019-11-12] MEDS: POTASSIUM CHLORIDE 10 MEQ in WATER FOR INJECTION 1 100ML.BAG IVPB SCH ×2 (06:06→07:57)
[2019-11-12] MEDS: FERROUS SULFATE 325 MG TAB PO SCH ×2 (07:53→18:45)
[2019-11-12] MEDS: PANTOPRAZOLE 40 MG TABLET PO SCH (07:53)
[2019-11-12] MEDS: ASCORBIC ACID 500 MG TAB PO SCH ×2 (07:53→18:46)
[2019-11-12] MEDS: METOPROLOL TARTRATE 50 MG TAB PO SCH (07:54)
[2019-11-12] MEDS: ASPIRIN 325 MG TAB PO SCH (07:54)
[2019-11-12] MEDS: ATORVASTATIN 40 MG TAB PO SCH (07:54)
[2019-11-12] MEDS: AMIODARONE 200 MG TAB PO SCH ×2 (07:54→20:43)
[2019-11-12] MEDS: CLOPIDOGREL 75 MG TAB PO SCH (07:54)
[2019-11-12 08:06] LABS: Glucose,Whole Blood 99 mg/dL (75-99)
[2019-11-12] MEDS: IPRATROPIUM-ALBUTEROL 3 ML NEB INHALATION SCH ×4 (08:35→19:58)
--- NOTE | 2019-11-12 08:50 | P.PN ---
Subjective Progress Note Date: 11/12/19 Principal diagnosis: Symptomatic multivessel coronary artery disease, unstable angina, status post subendocardial myocardial infarction. Past medical history significant for CAD with previous stent placement to the proximal circumflex and ostial OM1, hypertension, hyperlipidemia, chronic ongoing tobacco dependence, mild COPD with preoperative FEV1 60% of predicted, right internal carotid artery stenosis 50- 69%, peripheral arterial disease with previous arthrectomy and DATABASE ADMINISTRATOR of the left SFA, atherectomy and DATABASE ADMINISTRATOR of the left CLAY MODELER, with stenting of the left BRIAN, poorly controlled type 2 diabetes with preoperative hemoglobin A1c 9.1%, bladder cancer status post chemo and radiation, occasional marijuana use, medication noncompliance, and family history of premature coronary artery disease. POD #4 CABG 5 with GR to the LAD, left radial artery to the obtuse marginal coronary artery, a reverse greater saphenous vein to the posterior lateral coronary artery, sequential saphenous vein to the first and second diagonal coronary artery performed on cardiopulmonary bypass with beating heart. Endoscopic vein harvest of the left greater saphenous vein from the ankle to the groin. Endoscopic harvest of the left radial artery. Epi-aortic ultrasound and ligation of left atrial appendage with 40 mm AtriCure clip. Postoperative acute blood loss anemia, expected outcome given cardiopulmonary bypass and hemodilution. Postoperative confusion, unexpected but potential outcome given cardiopulmonary bypass and intraoperative cardiac arrest. Postoperative new onset paroxysmal Afib with RVR, unexpected. The patient is currently laying in bed in the intensive care unit. He remains restless and attempting to pull at his chest tubes and Newman catheter, opens up his eyes with verbal stimuli and is oriented 3. He is moving all 4 extremities appropriately with verbal stimuli. He currently denies any complaints of pain or shortness of breath. He remains hemodynamically stable and is currently on no inotropic or pressor support. Bedside monitor is demonstrating normal sinus rhythm with frequent PACs heart rate 96. Right and left pleural chest tubes remain in place to low continuous wall suction -20 cm H2O. No air leak is present. Draining thin serosanguineous drainage with 100 mL output in the last 8 hours from his left pleural chest tube and 300 mL output in the last 24 hours. Right pleural chest tube drained 130 mL output in the last 8 hours, and 350 mL output last 24 hours. Atrial and ventricular epicardial pacemaker wires remain grounded. Oxygen saturations are 97% on 6 L nasal cannula and he is achieving 1000 mL to 1250 mL on his incentive spirometry. Objective - Vital Signs Vital signs: Vital Signs Temp 97.9 F 11/12/19 04:00 Pulse 89 11/12/19 07:00 Resp 22 11/12/19 07:00 BP 109/78 11/12/19 07:00 Pulse Ox 97 11/12/19 07:00 Intake & Output 11/11/19 11/12/19 11/12/19 18:59 06:59 18:59 Intake Total 1964.883 510.622 132.372 Output Total 810 1295 60 Balance 1154.883 -784.378 72.372 Weight 84.4 kg Intake: IV 409.32 254 120 Amiodarone 360 mg In 133.32 Dextrose 5% in Water 200 ml @ 1 MG/MIN 33.333 mls/ hr IV .Q6H PRN Rx#: [id number] Lactated Ringers 1,000 ml 240 240 20 @ 20 mls/hr IV .Q24H YVAN Rx#:[id number] Normal Saline Pressure 36 14 Bag Potassium Chloride 10 meq 100 In Water For Injection 1 100ml.bag @ 100 mls/hr IVPB Q1H YVAN Rx#: [id number] Intake, IV Titration 485.563 256.622 12.372 Amount Amiodarone 300 mg In 116.9 237.533 Dextrose 5% in Water 250 ml @ 0.5 MG/MIN 25 mls/hr IV .Q10H PRN Rx#: [id number] Amiodarone 360 mg In 200 Dextrose 5% in Water 200 ml @ 1 MG/MIN 33.333 mls/ hr IV .Q6H PRN Rx#: [id number] Dextrose 5% in Water 100 100 ml @ 618 mls/hr IV .Q10M PRN with Amiodarone 150 mg Rx#:[id number] Insulin Regular 100 unit 68.663 19.089 12.372 In Sodium Chloride 0.9% 100 ml @ Per Protocol IV .Q0M YVAN Rx#:[id number] Oral 400 Blood Product 620 Rc As-1 Unit 310 [id number] Other 50 Rc As-1 Unit 50 [id number] Output: Chest Tube Drainage 360 360 Left Pleural Chest Tube 180 160 Right Pleural Chest Tube 180 200 Urine 450 935 60 Other: Voiding Method Indwelling Catheter Indwelling Catheter ABP, PAP, CO, CI - Last Documented Arterial Blood Pressure 110/50 Pulmonary Artery Pressure 30/17 Cardiac Output 4.5 Cardiac Index 2.3 - Constitutional Constitutional Comment(s): Restless and not cooperative. Following some simple commands and moving all 4 extremities appropriately. - EENT Eyes: Present: PERRLA, poor dentition, normal appearance. Absent: scleral icterus ENT: Present: hearing grossly normal. Absent: thrush - Neck Details: Neck is supple, no JVD, no lymphadenopathy. - Respiratory Details: Lung sounds are essentially clear throughout, diminished to his bilateral bases. Respirations are symmetrical and nonlabored. No wheezes, rhonchi or crackles. Oxygen saturation are 97% on 6 L nasal cannula. Achieving 1000 - 1250 mL on his incentive with encouragement spirometry. Left and right pleural chest tubes remain in place to low continuous wall suction -20 cm H2O. No air leak is present. Draining thin serosanguineous drainage with 100 mL output in the last 8 hours and 300 mL output in the last 24 hours from his left pleural chest tube, 130 mL output of thin serosanguineous drainage in the last 8 hours and 350 ml output in the last 24 hours from his right pleural chest tube. - Cardiovascular Details: Irregular rhythm and rate. S1 and S2 present, negative for S3, gallop or murmur. Sternum is stable. Bedside telemetry showing normal sinus rhythm with frequent PACs heart rate 96. Atrial and ventricular epicardial pacemaker wires in place and rounded. Heart hugger is in place. Knee-high ELSIE hose and sequential compression devices in place to his bilateral lower extremities. +1 edema to his left forearm. - Gastrointestinal Gastrointestinal Comment(s): Abdomen is soft, nontender and nondistended. Active bowel sounds present in all 4 abdominal quadrants. No guarding or rigidity. No organomegaly appreciated. Tolerating oral intake. - Genitourinary Genitourinary Comment(s): Newman catheter for accurate I&O. Hematuria present. 775 mL output in the last 8 hours. - Integumentary Integumentary Comment(s): Skin is warm and dry. No clubbing or cyanosis is present. Few scattered ecchymotic areas to his left forearm radial artery harvest site and to his left lower extremity EVH harvest site. Left lower extremity EVH sites, clean dry and well approximated. No drainage or redness is present. Left forearm radial artery harvest sites, clean, dry and approximated. No drainage or redness is present. Ulnar palpable to left arm. - Neurologic Neurologic Comment(s): Oriented 3 with answering questions. Opens eyes easily with verbal stimuli. Moves all 4 extremities equally and appropriately. Neurologic: Present: CNII-XII intact - Musculoskeletal Musculoskeletal: Present: generalized weakness, strength equal bilaterally - Psychiatric Psychiatric Comment(s): Remains restless. - Allied health notes Allied health notes reviewed: nursing - Labs CBC & Chem 7: 11/12/19 05:05 11/12/19 05:05 Labs: Abnormal Lab Results - Last 24 Hours (Table) 11/07/19 11/11/19 11/11/19 Range/Units 06:04 06:25 09:09 WBC (3.8-10.6) k/uL RBC (4.30-5.90) m/uL Hgb (13.0-17.5) gm/dL Hct (39.0-53.0) % Plt Count (150-450) k/uL Neutrophils # (1.3-7.7) k/uL Monocytes # (0-1.0) k/uL Chloride (98-107) mmol/L Carbon Dioxide (22-30) mmol/L BUN (9-20) mg/dL Glucose (74-99) mg/dL POC Glucose (mg/dL) 216 H (75-99) mg/dL Calcium (8.4-10.2) mg/dL Crossmatch See Detail See Detail 11/11/19 11/11/19 11/11/19 Range/Units 09:52 11:05 11:54 WBC (3.8-10.6) k/uL RBC (4.30-5.90) m/uL Hgb (13.0-17.5) gm/dL Hct (39.0-53.0) % Plt Count (150-450) k/uL Neutrophils # (1.3-7.7) k/uL Monocytes # (0-1.0) k/uL Chloride (98-107) mmol/L Carbon Dioxide (22-30) mmol/L BUN (9-20) mg/dL Glucose (74-99) mg/dL POC Glucose (mg/dL) 163 H 153 H 164 H (75-99) mg/dL Calcium (8.4-10.2) mg/dL Crossmatch 11/11/19 11/11/19 11/11/19 Range/Units 13:17 15:37 15:40 WBC 14.5 H (3.8-10.6) k/uL RBC 2.41 L (4.30-5.90) m/uL Hgb 7.7 L (13.0-17.5) gm/dL Hct 22.6 L (39.0-53.0) % Plt Count 125 L (150-450) k/uL Neutrophils # (1.3-7.7) k/uL Monocytes # (0-1.0) k/uL Chloride (98-107) mmol/L Carbon Dioxide (22-30) mmol/L BUN (9-20) mg/dL Glucose (74-99) mg/dL POC Glucose (mg/dL) 180 H 167 H (75-99) mg/dL Calcium (8.4-10.2) mg/dL Crossmatch 11/11/19 11/11/19 11/11/19 Range/Units 16:58 17:57 18:52 WBC (3.8-10.6) k/uL RBC (4.30-5.90) m/uL Hgb (13.0-17.5) gm/dL Hct (39.0-53.0) % Plt Count (150-450) k/uL Neutrophils # (1.3-7.7) k/uL Monocytes # (0-1.0) k/uL Chloride (98-107) mmol/L Carbon Dioxide (22-30) mmol/L BUN (9-20) mg/dL Glucose (74-99) mg/dL POC Glucose (mg/dL) 143 H 135 H 156 H (75-99) mg/dL Calcium (8.4-10.2) mg/dL Crossmatch 11/11/19 11/11/19 11/11/19 Range/Units 20:35 22:24 23:03 WBC (3.8-10.6) k/uL RBC (4.30-5.90) m/uL Hgb (13.0-17.5) gm/dL Hct (39.0-53.0) % Plt Count (150-450) k/uL Neutrophils # (1.3-7.7) k/uL Monocytes # (0-1.0) k/uL Chloride (98-107) mmol/L Carbon Dioxide (22-30) mmol/L BUN (9-20) mg/dL Glucose (74-99) mg/dL POC Glucose (mg/dL) 149 H 147 H 123 H (75-99) mg/dL Calcium (8.4-10.2) mg/dL Crossmatch 11/12/19 11/12/19 11/12/19 Range/Units 02:14 03:01 03:59 WBC (3.8-10.6) k/uL RBC (4.30-5.90) m/uL Hgb (13.0-17.5) gm/dL Hct (39.0-53.0) % Plt Count (150-450) k/uL Neutrophils # (1.3-7.7) k/uL Monocytes # (0-1.0) k/uL Chloride (98-107) mmol/L Carbon Dioxide (22-30) mmol/L BUN (9-20) mg/dL Glucose (74-99) mg/dL POC Glucose (mg/dL) 113 H 150 H 129 H (75-99) mg/dL Calcium (8.4-10.2) mg/dL Crossmatch 11/12/19 11/12/19 11/12/19 Range/Units 05:03 05:05 05:05 WBC 17.6 H (3.8-10.6) k/uL RBC 2.92 L (4.30-5.90) m/uL Hgb 9.3 L D (13.0-17.5) gm/dL Hct 27.3 L (39.0-53.0) % Plt Count 133 L (150-450) k/uL Neutrophils # 13.7 H (1.3-7.7) k/uL Monocytes # 1.3 H (0-1.0) k/uL Chloride 108 H (98-107) mmol/L Carbon Dioxide 20 L (22-30) mmol/L BUN 39 H (9-20) mg/dL Glucose 107 H (74-99) mg/dL POC Glucose (mg/dL) 138 H (75-99) mg/dL Calcium 7.9 L (8.4-10.2) mg/dL Crossmatch 11/12/19 Range/Units 06:04 WBC (3.8-10.6) k/uL RBC (4.30-5.90) m/uL Hgb (13.0-17.5) gm/dL Hct (39.0-53.0) % Plt Count (150-450) k/uL Neutrophils # (1.3-7.7) k/uL Monocytes # (0-1.0) k/uL Chloride (98-107) mmol/L Carbon Dioxide (22-30) mmol/L BUN (9-20) mg/dL Glucose (74-99) mg/dL POC Glucose (mg/dL) 138 H (75-99) mg/dL Calcium (8.4-10.2) mg/dL Crossmatch Microbiology - Last 24 Hours (Table) 11/10/19 21:15 Blood Culture - Preliminary Blood No Growth after 24 hours - Imaging and Cardiology Chest x-ray: image reviewed Assessment and Plan Assessment: 1. Symptomatic multivessel coronary artery disease, recent non-STEMI, status post 5 vessel CABG 2. Leukocytosis, unknown origin, may be reactive 3. Previous stent placement to the proximal circumflex and ostial OM1 4. History of hypertension 5. History of hyperlipidemia 6. Chronic ongoing tobacco dependence 7. Mild COPD, preoperative FEV1 60% of predicted value 8. Right internal carotid artery stenosis 50-69% 9. History of peripheral arterial disease with previous arthrectomy and DATABASE ADMINISTRATOR of the left SFA and atherectomy and DATABASE ADMINISTRATOR of the left CLAY MODELER with stenting of the left BRIAN 10. Poorly controlled diabetes mellitus type 2, admission hemoglobin A1c 9.1% 11. History of bladder cancer status post radiation, chemotherapy treatment and bladder surgery 12. Occasional marijuana use 13. Medication noncompliance 14. Family history of early onset coronary artery disease 15. Postoperative acute blood loss anemia, expected 16. Postoperative confusion, unexpected 17. Mild ISAAC, creatinine today 1.17 yesterday 1.09 18. New onset Afib with RVR, status post left atrial appendage ligation 19. New onset hematuria from patient pulling at newman catheter Plan: 1. Continue aspirin, statin, Plavix, beta gaurav therapy. Will increase beta gaurav as tolerated. Continue Cozaar 25 mg daily 2. Continue amiodorone for atrial fibrillation prophylaxis. Patient will likely need anticoagulation but epicardial pacemaker wires will need to be discontinued first. 3. Discontinue bilateral pleural chest tubes today. 4. Remove Newman catheter. Bladder scan every 6 hours and when necessary. 5. Continue oral Cardizem for radial artery support. Do not discontinue CCB without discussing with cardiothoracic surgery. 6. Wean O2 as tolerated. Encourage incentive spirometry use 10 times every hour while awake. Bronchodilators per pulmonology management. 7. Increase activity as tolerated. Up in chair for all meals, ambulate when stable and able. PT/OT/cardiac rehab following. 8. Will monitor daily labs and chest x-rays. Elective replacement per protocol. 9. Continue Tylenol for pain management, hold narcotics and toradol. 10. GI/DVT prophylaxis 11. Insulin management per primary care service 12. Reorient patient PRN 13. Continue to encourage oral intake, ensure supplements ordered, if unable to meet caloric intake we may need to place NG tube. 14. Avoid nephrotoxic agents 15. Keep atrial and ventricular epicardial pacemaker wires in place and grounded. 16. More recommendations to follow based on patient's clinical course Time with Patient: Greater than 30
--- NOTE | 2019-11-12 08:59 | XR ---
EXAMINATION TYPE: XR chest 1V DATE OF EXAM: 11/12/2019 COMPARISON: Chest radiograph 11/11/2019 HISTORY: Postop CABG TECHNIQUE: Single frontal semiupright portable view of the chest is obtained. FINDINGS: Sternotomy wires, bilateral chest tubes, and left atrial appendage Ben clip redemonstr ated. Cardiomegaly unchanged. Similar prominent interstitial markings. Increased airspace opacities o f the right upper lobe. No pneumothorax. No pleural effusion. IMPRESSION: Increased airspace opacity of the right upper lobe.
[2019-11-12 09:26] LABS: Glucose,Whole Blood 156 mg/dL (75-99)
--- NOTE | 2019-11-12 09:38 | PN ---
PROGRESS NOTE Mr. Reis is hemodynamically stable status post bypass surgery, but still confused without focal motor deficits. I am recommending a neuro evaluation to see if his confusion is neurological or metabolic. Possibility of cognitive impairment secondary to his recent surgery should also be considered. Vitals are stable. Patient is not communicating meaningfully. JVD is 1 cm. No carotid bruit. S1-S2 heard normally. Short systolic murmur noted. Lungs reveal diminished air entry. Abdomen and lower extremity exam unchanged. Patient is maintaining sinus rhythm. PLAN: Plan is to continue current medications and seek a neurology evaluation. MMODL / IJN: [id number] /
[2019-11-12] MEDS ORDERED: ALBUMIN HUMAN 25% 50 ML in EMPTY BAG 1 BAG IVPB ONE (09:43)
[2019-11-12 10:19] LABS: Glucose,Whole Blood 166 mg/dL (75-99)
[2019-11-12 10:54] LABS: Glucose,Whole Blood 176 mg/dL (75-99)
--- NOTE | 2019-11-12 11:28 | XR ---
EXAMINATION TYPE: XR chest 1V portable DATE OF EXAM: 11/12/2019 HISTORY: post chest tube removal COMPARISON: 11/12/2019 TECHNIQUE: Single view of the chest is submitted. FINDINGS: Chest tubes have been removed. No evidence for residual pneumothorax. Pleural parenchymal stranding u nchanged. There is no evidence for focal infiltrate. The heart is stable. Hilar and mediastinal structures are within normal limits. Degenerative changes are seen of the dorsal spine. IMPRESSION: 1. Chest tubes have been removed. No evidence for residual pneumothorax. Pleural parenchymal strandi ng unchanged.
[2019-11-12 11:51] LABS: Glucose,Whole Blood 155 mg/dL (75-99)
[2019-11-12] MEDS: INSULIN ASPART (NovoLOG) 100 UNIT/ML VIAL SQ SCH ×3 (12:14→20:44)
[2019-11-12] MEDS ORDERED: LACTATED RINGERS 1,000 ML IV SCH ×2 (12:45→14:45)
[2019-11-12] MEDS ORDERED: ALBUMIN HUMAN 5% 250 ML IVPB ONE (12:50)
[2019-11-12] MEDS ORDERED: ALBUMIN HUMAN 5% 250 ML in EMPTY BAG 1 BAG IVPB STA ×2 (12:53→14:41)
--- NOTE | 2019-11-12 13:40 | P.PN ---
Subjective Progress Note Date: 11/12/19 Principal diagnosis: Coronary artery disease with unstable angina, and non-ST elevated WI, status post 5 vessel bypass grafting This is a 64-year-old male patient with coronary artery disease, noncompliant to medication. The patient came in with subendocardial infarction and cardiac catheterization showed diffuse coronary artery disease with critical stenosis. The patient underwent coronary artery bypass today. The patient underwent bypass 5 with GR to LAD, radial artery graft to acute marginal, saphenous finger after 2 posterior lateral and sick ration saphenous vein to first and second diagonal performed on cardiac pulmonary bypass with beating heart. Left atrial appendage was also added. The patient currently is in the intensive care unit. I centimeters in regards to the ICU. He was initially on a SIMV mode of ventilation at the rate of 12 with a tidal volume of 500 and FiO2 of 100% with a PEEP of 5 and a pressure support of 5. The blood gas showed a pH of 7.318 with a pCO2 of 49 and pO2 of 226. The chest x-ray postop showed volume overload with pulmonary vascular congestion and interstitial edema. The lines and tubes are all in good location. Based on all this, I increased the respiratory rate of 24. I do not FiO2 down to 60%. Current cardiac output is at 2.6 with an index of 5. The patient has 2 mediastinal 1 right pleural and 1 left pleural chest tube. Ultrasound of the sternal chest tubes has been around 150 mL since he arrived from the operating room. No evidence of any air leak. The patient is currently on a Cardizem drip and milrinone drip and the patient is on insulin drip for blood sugar control.he is well sedated. Is quite symptoms with the mechanical ventilator. Postoperative hemoglobin is at 8.2. Platelet count is down to 78. On today's evaluation of 11/09/2019, I'm seeing the patient for a follow-up. The patient was operated on yesterday and the patient underwent a five-vessel bypass surgery including a GR and the radial artery harvest. The patient was extubated within 6 hours and currently the patient is on oxygen by nasal cannula at 5 L. He is pleasantly confused this morning. He is able to sit up on a recliner. Hemodynamically, he did have some early of hypotension earlier this morning and for that reason the patient was given 750 mL of colloids and following that he was started on low-dose levo fed at 0.03 g per KG per minute. The patient remains on Primacor running at 0.125 g and the patient is also on Cardizem at 5 mg an hour. Insulin drip is running at 2.5 units an hour. Hemod ynamically, the patient's cardiac output is at 4.2 with an index of 2.2. The pulmonary artery pressure 28/12. CVP is at 11. Cardiac output is at 4.2. He is in his normal sinus rhythm. He has a backup VVI at the rate of 50. His chest x-rays showing small bilateral apical pneumothoraces. All of the chest tubes are in good location. The right and left pleural chest tube connected and they have drained approximately 130 mL over the past 8 hours. He is tender tubes are also connected and it has drained approximately 140 mL over the past 8 hours. The patient otherwise has no specific complaints. Sternum stable clean and intact. He is producing urine output in the order of 20-30 mL an hour. No other significant events overnight. Hemoglobin stable at 7.9. The platelet count improved to 102. On 11/10/2019, the patient is postop day #2. The patient is confused. He is nonverbal. He is not answering questions and is not following any commands. Upon watching him, I felt that the left side of the body slightly cachectic compared to the right. Nevertheless, the same as the patient was not cheered by the nursing staff been observing this patient longer to me. He has no prefer ential gaze toseizure activity. No reported shortness of breath or respiratory distress at this point in time. Mediastinal chest tubes and the pleural chest tubes are all in place. The patient has an AV epicardial pacer wire grounded to generator. As of yesterday, the patient was taken off the pressors. The patient is currently off the levo fed and he is off the Primacor. The patient also had the ALYX drains removed from the left lower extremity and arm. No other significant issues for now. No cardiac arrhythmias. No nausea. No vomiting. No emesis. He is resting comfortably in bed. The patient's hemoglobin is at 7.0. Was a causative 4.7. Diminished pulmonary vascular congestion and infiltration of the right lung base. There is resolution of the previously described bilateral pneumothoraces. On today's evaluation of 11/11/2019, the patient remains confused. I was told that he was able to say some few words. I was also told by the nursing staff that the patient was witnessed EXTREMITIES WITHOUT ANY LIMITATION IN PATIENT HAVING ANY FOCAL NEUROLOGICAL DEFICIT. NOTE THAT THE PATIENT EARLIER THIS MORNING WITH ATRIAL FIBRILLATION WITH RAPID VENTRICULAR RESPONSE. HIS HEART RATE WENT UP TO 180 beats per minute without any significant hypotension. That point, the patient was given amiodarone boluses and the patient received a total of 3 boluses prior to my arrival. He was also given 5 mg of IV Lopressor. Her, bilateral, the patient was still in atrial fibrillation. He was trying to hurt at times he thought it was going down. His baseline rhythm was atrial fibr illation and heart rate was in the range of 100-120. The patient denied having any chest pain. Sternum was stable treatment intact. No reported fever or chills. The mediastinal chest 11 already been removed yesterday. The right and the left pleural chest tubes are still in place and output is being noted. Chest x-ray from this morning showed adequate expansion of both lungs without evidence of any pneumothorax. No evidence of any pulmonary edema. The patient was being given Lasix 20 mg IV push every 12 hours. Hemoglobin from this morning was down to 6.7 and the patient was ordered to get a unit of packed RBC. Currently is postoperative #3 post 5 vessel coronary artery bypass surgery. On 11/12/2019 patient seen in follow-up in the intensive care unit, he is very restless on today's exam, although nursing reports some improvement in his neurological status, and apparently patient is answering questions appropriately, and he knows he is in the hospital, and he is given verbal r esponses to questions. he is awake and alert, he is restless, but appears to be in no acute distress, he is moving his legs and arms bilaterally, squirming in bed. Does not appear to be in any respiratory distress. He is currently on 5 L of oxygen, with pulse ox of 100%, hemodynamically patient is stable, no fever or chills. Lactate of Ringer's infusing at a rate of 40 ML per hour. Today's est x-ray has been reviewed showing increasing airspace opacity of the right upper lobe, similar prominent interstitial markings, no pneumothorax, no pleural effusions. Left pleural chest tube is in place, with a total output of 340 ML in the last 24 hours, right pleural chest tube put out 380 mL of serosanguineous thin output in the last 24 hours, media still chest tubes have been discontinued. Patient has produced 1.3 L and urine output in the last 24 hours. Junior catheter remains in place. Today's lab work has been reviewed, showing white blood cell count of 17.6, hemoglobin is 9.3, sodium of 138, potassium 3.8, chloride is 108, CO2 is 20, B1 is 39, creatinine is 1.17. She is in sinus arrhythmia with frequent PACs on the monitor, amiodarone drip has been switched to oral amiodarone 400 mg twice daily, patient is on oral Cardizem 30 mg every 6 hours, and oral metoprolol 50 mg twice daily. Blood cultures have shown no growth at the 24-hour elly. Patient has been afebrile. ivory carver is at the bedside in view of confusion and agitation, Junior catheter still has hematuria, which is dark in color, yesterday's brain CT showed patchy. Ventricular and deep white matter changes, left greater than right which have progressed from 01/09/2019, and areas of subacute ischemia are not excluded, MRI can further evaluate, no acute intracranial hemorrhage or midline shift. Objective - Vital Signs Vital signs: Vital Signs Temp 97.5 F L 11/12/19 08:00 Pulse 61 11/12/19 11:07 Resp 23 11/12/19 08:00 BP 122/68 11/12/19 08:00 Pulse Ox 100 11/12/19 08:00 Intake & Output 11/11/19 11/12/19 11/12/19 18:59 06:59 18:59 Intake Total 1964.883 510.622 357.338 Output Total 810 1295 90 Balance 1154.883 -784.378 267.338 Weight 84.4 kg Intake: IV 409.32 254 240 Amiodarone 360 mg In 133.32 Dextrose 5% in Water 200 ml @ 1 MG/MIN 33.333 mls/ hr IV .Q6H PRN Rx#: [id number] Lactated Ringers 1,000 ml 240 240 40 @ 20 mls/hr IV .Q24H [facility]AN Rx#:[id number] Normal Saline Pressure 36 14 Bag Potassium Chloride 10 meq 200 In Water For Injection 1 100ml.bag @ 100 mls/hr IVPB Q1H [facility] Rx#: [id number] Intake, IV Titration 485.563 256.622 17.338 Amount Amiodarone 300 mg In 116.9 237.533 Dextrose 5% in Water 250 ml @ 0.5 MG/MIN 25 mls/hr IV .Q10H PRN Rx#: [id number] Amiodarone 360 mg In 200 Dextrose 5% in Water 200 ml @ 1 MG/MIN 33.333 mls/ hr IV .Q6H PRN Rx#: [id number] Dextrose 5% in Water 100 100 ml @ 618 mls/hr IV .Q10M PRN with Amiodarone 150 mg Rx#:[id number] Insulin Regular 100 unit 68.663 19.089 17.338 In Sodium Chloride 0.9% 100 ml @ Per Protocol IV .Q0M [facility] Rx#:[id number] Oral 400 100 Blood Product 620 Rc As-1 Unit 310 [id number] Other 50 Rc As-1 Unit 50 [id number] Output: Chest Tube Drainage 360 360 10 Left Pleural Chest Tube 180 160 10 Right Pleural Chest Tube 180 200 0 Urine 450 935 80 Other: Voiding Method Indwelling Catheter Indwelling Catheter Indwelling Catheter ABP, PAP, CO, CI - Last Documented Arterial Blood Pressure 110/50 Pulmonary Artery Pressure 30/17 Cardiac Output 4.5 Cardiac Index 2.3 - Exam GENERAL EXAM: Alert, restless, 64-year-old white male, he is to restless to answer any questions, but reportedly was answering verbally earlier for nursing staff, comfortable in no apparent distress. Patient currently on 5-6 L of oxygen, with a pulse ox of 100%. Patient is moving upper and lower extremities, he scoring in bed, restless, but no unilateral weakness noted on today's exam, he is given some limited 1 word answers, he is confused HEAD: Normocephalic/atraumatic. EYES: Normal reaction of pupils, equal size. Conjunctiva pink, sclera white. NOSE: Clear with pink turbinates. THROAT: No erythema or exudates. NECK: No masses, no JVD, no thyroid enlargement, no adenopathy. CHEST: No chest wall deformity. Symmetrical expansion. Midsternal incision is clean dry and intact, right and left pleural chest tubes are in place, connected to Pleur-evac, with thin serosanguineous output in the Pleur-evacs, with no evidence of air leak, mediastinal chest tubes have been discontinued LUNGS: Equal air entry with no crackles, wheeze, rhonchi or dullness. CVS: Irregular rate and rhythm, normal S1 and S2, no gallops, no murmurs, no rubs ABDOMEN: Soft, nontender. No hepatosplenomegaly, normal bowel sounds, no guarding or rigidity. EXTREMITIES: No clubbing, no edema, no cyanosis, 2+ pulses and upper and lower extremities. MUSCULOSKELETAL: Muscle strength and tone normal. SPINE: No scoliosis or deformity SKIN: No rashes CENTRAL NERVOUS SYSTEM: Alert and oriented -1, confused, extremely restless. No focal deficits, tone is normal in all 4 extremities. PSYCHIATRIC: Alert and oriented -1. Appropriate affect. Intact judgment and insight. - Labs CBC & Chem 7: 11/12/19 05:05 11/12/19 05:05 Labs: Abnormal Lab Results - Last 24 Hours (Table) 11/11/19 11/11/19 11/11/19 Range/Units 13:17 15:37 15:40 WBC 14.5 H (3.8-10.6) k/uL RBC 2.41 L (4.30-5.90) m/uL Hgb 7.7 L (13.0-17.5) gm/dL Hct 22.6 L (39.0-53.0) % Plt Count 125 L (150-450) k/uL Neutrophils # (1.3-7.7) k/uL Monocytes # (0-1.0) k/uL Chloride (98-107) mmol/L Carbon Dioxide (22-30) mmol/L BUN (9-20) mg/dL Glucose (74-99) mg/dL POC Glucose (mg/dL) 180 H 167 H (75-99) mg/dL Calcium (8.4-10.2) mg/dL 11/11/19 11/11/19 11/11/19 Range/Units 16:58 17:57 18:52 WBC (3.8-10.6) k/uL RBC (4.30-5.90) m/uL Hgb (13.0-17.5) gm/dL Hct (39.0-53.0) % Plt Count (150-450) k/uL Neutrophils # (1.3-7.7) k/uL Monocytes # (0-1.0) k/uL Chloride (98-107) mmol/L Carbon Dioxide (22-30) mmol/L BUN (9-20) mg/dL Glucose (74-99) mg/dL POC Glucose (mg/dL) 143 H 135 H 156 H (75-99) mg/dL Calcium (8.4-10.2) mg/dL 11/11/19 11/11/19 11/11/19 Range/Units 20:35 22:24 23:03 WBC (3.8-10.6) k/uL RBC (4.30-5.90) m/uL Hgb (13.0-17.5) gm/dL Hct (39.0-53.0) % Plt Count (150-450) k/uL Neutrophils # (1.3-7.7) k/uL Monocytes # (0-1.0) k/uL Chloride (98-107) mmol/L Carbon Dioxide (22-30) mmol/L BUN (9-20) mg/dL Glucose (74-99) mg/dL POC Glucose (mg/dL) 149 H 147 H 123 H (75-99) mg/dL Calcium (8.4-10.2) mg/dL 11/12/19 11/12/19 11/12/19 Range/Units 02:14 03:01 03:59 WBC (3.8-10.6) k/uL RBC (4.30-5.90) m/uL Hgb (13.0-17.5) gm/dL Hct (39.0-53.0) % Plt Count (150-450) k/uL Neutrophils # (1.3-7.7) k/uL Monocytes # (0-1.0) k/uL Chloride (98-107) mmol/L Carbon Dioxide (22-30) mmol/L BUN (9-20) mg/dL Glucose (74-99) mg/dL POC Glucose (mg/dL) 113 H 150 H 129 H (75-99) mg/dL Calcium (8.4-10.2) mg/dL 0711/12/19 11/12/19 Range/Units 05:03 05:05 05:05 WBC 17.6 H (3.8-10.6) k/uL RBC 2.92 L (4.30-5.90) m/uL Hgb 9.3 L D (13.0-17.5) gm/dL Hct 27.3 L (39.0-53.0) % Plt Count 133 L (150-450) k/uL Neutrophils # 13.7 H (1.3-7.7) k/uL Monocytes # 1.3 H (0-1.0) k/uL Chloride 108 H (98-107) mmol/L Carbon Dioxide 20 L (22-30) mmol/L BUN 39 H (9-20) mg/dL Glucose 107 H (74-99) mg/dL POC Glucose (mg/dL) 138 H (75-99) mg/dL Calcium 7.9 L (8.4-10.2) mg/dL 11/12/19 11/12/19 11/12/19 Range/Units 06:04 09:23 10:18 WBC (3.8-10.6) k/uL RBC (4.30-5.90) m/uL Hgb (13.0-17.5) gm/dL Hct (39.0-53.0) % Plt Count (150-450) k/uL Neutrophils # (1.3-7.7) k/uL Monocytes # (0-1.0) k/uL Chloride (98-107) mmol/L Carbon Dioxide (22-30) mmol/L BUN (9-20) mg/dL Glucose (74-99) mg/dL POC Glucose (mg/dL) 138 H 156 H 166 H (75-99) mg/dL Calcium (8.4-10.2) mg/dL 11/12/19 11/12/19 Range/Units 10:53 11:50 WBC (3.8-10.6) k/uL RBC (4.30-5.90) m/uL Hgb (13.0-17.5) gm/dL Hct (39.0-53.0) % Plt Count (150-450) k/uL Neutrophils # (1.3-7.7) k/uL Monocytes # (0-1.0) k/uL Chloride (98-107) mmol/L Carbon Dioxide (22-30) mmol/L BUN (9-20) mg/dL Glucose (74-99) mg/dL POC Glucose (mg/dL) 176 H 155 H (75-99) mg/dL Calcium (8.4-10.2) mg/dL Microbiology - Last 24 Hours (Table) 11/10/19 21:15 Blood Culture - Preliminary Blood No Growth after 24 hours Assessment and Plan Plan: Assessment: 1 coronary artery disease without stable angina and non-STEMI. The patient underwent five-vessel bypass surgery. CABG 5 with GR to LAD, left radial artery to obtuse marginal, saphenous vein to posterior lateral, sequential saphenous vein to first and second diagonal performed on cardiopulmonary bypass with beating heart. Epi-aortic ultrasound and ligation of left atrial appendage with Ben clip. The patient is postop day #4. Hemodynamically stable. Pressors of been all discontinued. No active inotropes running at this point in time. 2 post thoracotomy, currently extubated. Mediastinal chest tubes having discontinued, left and right chest tubes are in place, with thin serosanguineous output in the Pleur-evacs. No evidence of any air leak. The follow-up chest x- ray from today shows no evidence of any pneumothoraces. Meanwhile, the mediastinal tubes have been removed. The patient has a right and a left-sided chest tube in place output being minimal at this point in time., Hemoglobin today to 9.3 3 blood loss anemia , expected outcome of surgery, and this is likely of blood loss anemia. Patient transfused with 3 units of blood this admission 4 COPD with an FEV1 of 60% of predicted at baseline 5 new-onset atrial fibrillation with rapid ventricular response currently on amiodarone, expected outcome related to cardiac surgery, currently in sinus rhythm with frequent PACs 6 Peripheral vascular disease with prior peripheral stent placements 7 Right carotid artery stenosis at 50-69% 7 History of marijuana use 8 Diabetes mellitus, type II, insulin drip for blood sugar control, running at 1.5 units per hour. 9 History of bladder cancer status post radiation/chemotherapy and subsequent surgery 10 History of noncompliance 11 altered mentation 12 postop confusion, consider CVA , no evidence of any focal neurological deficit. Brain CT showed patchy periventricular and deep white matter changes left greater than right, areas of subacute ischemia are not excluded, D myelinating disease or the infectious limits her etiologies are possible, no acute intracranial hemorrhage or midline shift noted Plan: Maintain safety precautions, wean FiO2, patient has converted to sinus rhythm, rate is currently controlled. Today's chest x-ray has been reviewed, showing airspace opacity of the right upper lobe, doubt fluid overload. He is on chest tubes have been discontinued, anticipate removal of the right and left pleural chest tubes, Junior catheter will be discontinued, mobilize the patient. Wean FiO2. Recommend avoiding benzodiazepines. Agree with low-dose Seroquel at bedtime. Maintain aspiration precautions. We'll continue to closely monitor in the intensive care unit I performed a history & physical examination of the patient and discussed their management with my nurse practitioner, Elva Newberry. I reviewed the nurse practitioner's note and agree with the documented findings and plan of care. Lung sounds are positive for clear breath sounds. The findings and the impression was discussed with the patient. I attest to the documentation by the nurse practitioner. Time with Patient: Less than 30
[2019-11-12] MEDS ORDERED: KETAMINE 10 MG/ML 20 ML VIAL ONE (13:53)
[2019-11-12] MEDS ORDERED: ROCURONIUM BROMIDE 10 MG/ML 5 ML VIAL IV ONE (13:53)
[2019-11-12] MEDS ORDERED: PROPOFOL 10 MG/ML 20 ML VIAL IV ONE (13:53)
[2019-11-12 14:04] LABS: ABG Base Excess -14.9 mmol/L; ABG HCO3 13 mmol/L (21-25); ABG PCO2 31 mmHg (35-45); ABG PH 7.22 (7.35-7.45); ABG TCO2 14 mmol/L (19-24); Allen Test Performed? Yes
[2019-11-12 14:09] LABS: ABG PO2 17 mmHg (83-108)
[2019-11-12 14:11] LABS: ABG HCO3 11 mmol/L (21-25); ABG Oxygen Saturation 88.5 % (94-97); ABG PCO2 22 mmHg (35-45); ABG PH 7.29 (7.35-7.45); ABG PO2 65 mmHg (83-108); ABG TCO2 11 mmol/L (19-24); Allen Test Performed? Yes
[2019-11-12] MEDS ORDERED: SODIUM BICARB 8.4% 50 ML SYR (1 MEQ/ML) IV STA (14:17)
[2019-11-12] MEDS ORDERED: SODIUM BICARB 8.4% 50 ML SYR (1 MEQ/ML) ONE ×3 (14:21→16:09)
--- NOTE | 2019-11-12 14:30 | P.PN ---
Subjective Progress Note Date: 11/12/19 Principal diagnosis: Patient is a [id number] male was recently discharged from the hospital came back in with the chest pain pressure-like sensation lasted for a few hours nonexertional did have elevated troponins. Patient had a triple-vessel disease patient is scheduled to undergo coronary artery bypass grafting on Friday went home started smoking again started having chest pain. Chest x-ray was read as pulmonary edema. It is not elevated patient clinically doesn't have any JVD or crackles or wheezing. 11/09/2019 Patient is status post CABG he was extubated the last night. Patient is presently on norepinephrine, milrinone, IV insulin. Patient still has a Capron- Juni in place most of the management is being done by cardiac thoracic surgery patient was bit confused earlier today doing well now. 11/10/2019 Patient is still confused as per the family his confusion is better patient is a low-grade fever probably because of atelectasis a lot and blood cultures. Patient received Lasix for pulmonary edema, patient's mediastinal chest use with remote patient still has left pleural chest tubes Review of systems: Unable to obtain as patient is tired and sleepy All inpatient medications were reviewed and appropriate changes in these medications as dictated in the interval history and assessment and plan. 11/11/2019 Patient is seen and evaluated and follow-up currently remains in the ICU and is being closely monitored. Since hemoglobin was found to be 6.7 this morning and is currently receiving 1 unit of PRBCs. Potassium is 4.4, creatinine is 1.09, magnesium is 2.3. Patient went into atrial fibrillation with RVR and is being maintained on amiodarone drip and will transition to oral medications. Patient continues to have chest tubes along with indwelling Junior catheter which shows some hematuria as patient pulled it out. Patient has been afebrile with intermittent low-grade temps 99.7F and white count today is 14.1. Patient remains on an insulin drip and will continue at this time. Will continue to follow along closely with cardio thoracic surgery. 11/12/2019 Patient is seen and evaluated and follow-up continues to be closely monitored in the ICU. Patient is currently restless and seems to be having some shortness of breath. Patient is placed on nasal cannula although was mouth breathing and is currently on 5 L of oxygen. Patient was on insulin drip which has been discontinued and patient will be continued on sliding scale as patient now has a diet ordered although isn't eating very much. Patient continues to be confused and not following commands. Patient had a chest x-ray today status post chest tube removal showing no evidence of residual pneumothorax. Patient underwent brain CT yesterday showing patchy periventricular and deep white matter changes, left greater than right that have progressed since 01/19/2019 with demyelinating disease or other infectious inflammatory etiologies are possible, and no acute intracranial hemorrhage or midline shift noted. Objective - Vital Signs Vital signs: Vital Signs Temp 97.5 F L 11/12/19 08:00 Pulse 61 11/12/19 11:07 Resp 23 11/12/19 08:00 BP 122/68 11/12/19 08:00 Pulse Ox 100 11/12/19 08:00 Intake & Output 11/11/19 11/12/19 11/12/19 18:59 06:59 18:59 Intake Total 1964.883 510.622 357.338 Output Total 810 1295 90 Balance 1154.883 -784.378 267.338 Weight 84.4 kg Intake: IV 409.32 254 240 Amiodarone 360 mg In 133.32 Dextrose 5% in Water 200 ml @ 1 MG/MIN 33.333 mls/ hr IV .Q6H PRN Rx#: [id number] Lactated Ringers 1,000 ml 240 240 40 @ 20 mls/hr IV .Q24H [facility] Rx#:[id number] Normal Saline Pressure 36 14 Bag Potassium Chloride 10 meq 200 In Water For Injection 1 100ml.bag @ 100 mls/hr IVPB Q1H [facility] Rx#: [id number] Intake, IV Titration 485.563 256.622 17.338 Amount Amiodarone 300 mg In 116.9 237.533 Dextrose 5% in Water 250 ml @ 0.5 MG/MIN 25 mls/hr IV .Q10H PRN Rx#: [id number] Amiodarone 360 mg In 200 Dextrose 5% in Water 200 ml @ 1 MG/MIN 33.333 mls/ hr IV .Q6H PRN Rx#: [id number] Dextrose 5% in Water 100 100 ml @ 618 mls/hr IV .Q10M PRN with Amiodarone 150 mg Rx#:[id number] Insulin Regular 100 unit 68.663 19.089 17.338 In Sodium Chloride 0.9% 100 ml @ Per Protocol IV .Q0M [facility] Rx#:[id number] Oral 400 100 Blood Product 620 Rc As-1 Unit 310 [id number] Other 50 Rc As-1 Unit 50 [id number] Output: Chest Tube Drainage 360 360 10 Left Pleural Chest Tube 180 160 10 Right Pleural Chest Tube 180 200 0 Urine 450 935 80 Other: Voiding Method Indwelling Catheter Indwelling Catheter Indwelling Catheter ABP, PAP, CO, CI - Last Documented Arterial Blood Pressure 110/50 Pulmonary Artery Pressure 30/17 Cardiac Output 4.5 Cardiac Index 2.3 - Exam GENERAL: The patient sitting up in bed, extremely restless, thrashing upper and lower extremities. Appears dyspneic. Aphasic. Well developed, well nourished. HEENT: Pupils are round and equally reacting to light. EOMI. No scleral icterus. No conjunctival pallor. Normocephalic, atraumatic. No pharyngeal erythema. No thyromegaly. CARDIOVASCULAR: S1 and S2 present. No murmurs, rubs, or gallops. PULMONARY: Diminished breath sounds bilaterally Bibasilar crackles, no wheezing was appreciated. Heart hugger noted and surgical dressing is dry and intact midsternum, chest tubes removed today ABDOMEN: Soft, nontender, nondistended, normoactive bowel sounds. No palpable organomegaly. MUSCULOSKELETAL: No joint swelling or deformity. EXTREMITIES: No cyanosis, clubbing, or pedal edema. NEUROLOGICAL: Gross neurological examination did not reveal any focal deficits. SKIN: No rashes. Pale - Labs CBC & Chem 7: 11/12/19 05:05 11/12/19 05:05 Labs: Abnormal Lab Results - Last 24 Hours (Table) 11/11/19 11/11/19 11/11/19 Range/Units 15:37 15:40 16:58 WBC 14.5 H (3.8-10.6) k/uL RBC 2.41 L (4.30-5.90) m/uL Hgb 7.7 L (13.0-17.5) gm/dL Hct 22.6 L (39.0-53.0) % Plt Count 125 L (150-450) k/uL Neutrophils # (1.3-7.7) k/uL Monocytes # (0-1.0) k/uL Chloride (98-107) mmol/L Carbon Dioxide (22-30) mmol/L BUN (9-20) mg/dL Glucose (74-99) mg/dL POC Glucose (mg/dL) 167 H 143 H (75-99) mg/dL Calcium (8.4-10.2) mg/dL 11/11/19 11/11/19 11/11/19 Range/Units 17:57 18:52 20:35 WBC (3.8-10.6) k/uL RBC (4.30-5.90) m/uL Hgb (13.0-17.5) gm/dL Hct (39.0-53.0) % Plt Count (150-450) k/uL Neutrophils # (1.3-7.7) k/uL Monocytes # (0-1.0) k/uL Chloride (98-107) mmol/L Carbon Dioxide (22-30) mmol/L BUN (9-20) mg/dL Glucose (74-99) mg/dL POC Glucose (mg/dL) 135 H 156 H 149 H (75-99) mg/dL Calcium (8.4-10.2) mg/dL 11/11/19 11/11/19 11/12/19 Range/Units 22:24 23:03 02:14 WBC (3.8-10.6) k/uL RBC (4.30-5.90) m/uL Hgb (13.0-17.5) gm/dL Hct (39.0-53.0) % Plt Count (150-450) k/uL Neutrophils # (1.3-7.7) k/uL Monocytes # (0-1.0) k/uL Chloride (98-107) mmol/L Carbon Dioxide (22-30) mmol/L BUN (9-20) mg/dL Glucose (74-99) mg/dL POC Glucose (mg/dL) 147 H 123 H 113 H (75-99) mg/dL Calcium (8.4-10.2) mg/dL 11/12/19 11/12/19 11/12/19 Range/Units 03:01 03:59 05:03 WBC (3.8-10.6) k/uL RBC (4.30-5.90) m/uL Hgb (13.0-17.5) gm/dL Hct (39.0-53.0) % Plt Count (150-450) k/uL Neutrophils # (1.3-7.7) k/uL Monocytes # (0-1.0) k/uL Chloride (98-107) mmol/L Carbon Dioxide (22-30) mmol/L BUN (9-20) mg/dL Glucose (74-99) mg/dL POC Glucose (mg/dL) 150 H 129 H 138 H (75-99) mg/dL Calcium (8.4-10.2) mg/dL 11/12/19 11/12/19 11/12/19 Range/Units 05:05 05:05 06:04 WBC 17.6 H (3.8-10.6) k/uL RBC 2.92 L (4.30-5.90) m/uL Hgb 9.3 L D (13.0-17.5) gm/dL Hct 27.3 L (39.0-53.0) % Plt Count 133 L (150-450) k/uL Neutrophils # 13.7 H (1.3-7.7) k/uL Monocytes # 1.3 H (0-1.0) k/uL Chloride 108 H (98-107) mmol/L Carbon Dioxide 20 L (22-30) mmol/L BUN 39 H (9-20) mg/dL Glucose 107 H (74-99) mg/dL POC Glucose (mg/dL) 138 H (75-99) mg/dL Calcium 7.9 L (8.4-10.2) mg/dL 11/12/19 11/12/19 11/12/19 Range/Units 09:23 10:18 10:53 WBC (3.8-10.6) k/uL RBC (4.30-5.90) m/uL Hgb (13.0-17.5) gm/dL Hct (39.0-53.0) % Plt Count (150-450) k/uL Neutrophils # (1.3-7.7) k/uL Monocytes # (0-1.0) k/uL Chloride (98-107) mmol/L Carbon Dioxide (22-30) mmol/L BUN (9-20) mg/dL Glucose (74-99) mg/dL POC Glucose (mg/dL) 156 H 166 H 176 H (75-99) mg/dL Calcium (8.4-10.2) mg/dL 11/12/19 Range/Units 11:50 WBC (3.8-10.6) k/uL RBC (4.30-5.90) m/uL Hgb (13.0-17.5) gm/dL Hct (39.0-53.0) % Plt Count (150-450) k/uL Neutrophils # (1.3-7.7) k/uL Monocytes # (0-1.0) k/uL Chloride (98-107) mmol/L Carbon Dioxide (22-30) mmol/L BUN (9-20) mg/dL Glucose (74-99) mg/dL POC Glucose (mg/dL) 155 H (75-99) mg/dL Calcium (8.4-10.2) mg/dL Microbiology - Last 24 Hours (Table) 11/10/19 21:15 Blood Culture - Preliminary Blood No Growth after 24 hours Assessment and Plan Assessment: -Acute non-ST elevation myocardial infarction: Coronary artery diseasepatient is status post five-vessel coronary artery bypass grafting, patient is presently on aspirin and statin beta gaurav, amiodarone drip, oral Cardizem -New onset paroxysmal atrial fibrillation with RVR, resume rate controlled switched to oral amiodarone and oral Cardizem -Leukocytosis reactive is not requiring any medications -Possible congestive heart failure chronic diastolic dysfunction with acute exacerbation -Low-grade fever probably because of atelectasis; patient to continue with incentive spirometry at least 10 times every hour while awake, improving -Hypertension -Hyperlipidemia -Type 2 diabetes mellitus, insulin drip discontinued patient to continue with sliding scale and monitor blood sugars before meals at bedtime -COPD without any acute exacerbation -Severe peripheral vascular disease -History of bladder cancer status post chemotherapy and radiation -Continued nicotine use and marijuana use
[2019-11-12] MEDS: DEXTROSE 5% IN WATER 1,000 ML with SODIUM BICARB (1 MEQ/ML) 150 ML IV SCH (14:53)
[2019-11-12 14:58] LABS: Basophils # (A) 0.1 k/uL (0-0.2); Basophils % (A) 0 %; Eosinophils # (A) 0.1 k/uL (0-0.7); Eosinophils % (A) 1 %; HCT 24.4 % (39.0-53.0); Hypochromasia Slight; Lymphocytes # (A) 1.2 k/uL (1.0-4.8); Lymphocytes % (A) 7 %; MCH 30.9 pg (25.0-35.0); MCHC 31.7 g/dL (31.0-37.0); MCV 97.5 fL (80.0-100.0); Mean Platelet Volume 9.5; Monocytes % (A) 6 %; Neutrophils # (A) 14.6 k/uL (1.3-7.7); Neutrophils % (A) 83 %; Platelet Count 166 k/uL (150-450); RBC 2.51 m/uL (4.30-5.90); RDW 14.9 % (11.5-15.5); WBC 17.7 k/uL (3.8-10.6)
[2019-11-12 15:04] LABS: HGB 7.8 gm/dL (13.0-17.5)
[2019-11-12 15:16] LABS: Albumin 3.1 g/dL (3.5-5.0); C Reactive Protein 78.9 mg/L (<10.0); Calcium 7.8 mg/dL (8.4-10.2); Phosphorus 6.7 mg/dL (2.5-4.5); Total Bilirubin 1.8 mg/dL (0.2-1.3); Total Protein 4.8 g/dL (6.3-8.2)
--- NOTE | 2019-11-12 15:36 | P.GSCN ---
History of Present Illness Consult date: 11/12/19 Reason for Consult: Leukocytosis History of present illness: This 68-year-old male who's post CABG. The patient's noted to have increasing white count and lactic acid. Patient white count is 17,000 his lactic is 11. The patient has been extubated. He is not currently on any of any abdominal pain. Past Medical History Past Medical History: Coronary Artery Disease (CAD), Cancer, Chest Pain / Angina , Diabetes Mellitus, Hypertension, Myocardial Infarction (AR), Skin Disorder Additional Past Medical History / Comment(s): Intermittent BILATERAL CLAUDICATION & NEW OCCURRENCE OF LEFT PLANTAR FASCITIS (DIFFICULT TO WALK). Hx of bladder ca with surgery, psoriases,eczema, hiatal hernia, umbilical hernia, kidney stones 2004. Last Myocardial Infarction Date:: 2015 History of Any Multi-Drug Resistant Organisms: None Reported Past Surgical History: Heart Catheterization With Stent Additional Past Surgical History / Comment(s): 10/20/15 last CARDIAC STENT-has had several previous cardiac stents, vasectomy, bladder sx x2 to remove tumors. L femoral artherectomy/STENT TO LT common ILIAC artery, 05/22/16 R femoral/popliteal atherectomy with PTBA/stent, angiograms, aortogram with run off. Past Anesthesia/Blood Transfusion Reactions: No Reported Reaction Additional Past Anesthesia/Blood Transfusion Reaction / Comm: CLAUSTROPHOBIC IN LARGE CROWDS Date of Last Stent Placement:: 10/20/15 Past Psychological History: No Psychological Hx Reported - Past Family History Father Family Medical History: Myocardial Infarction (AR) Additional Family Medical History / Comment(s): PT'S DAD WHEN PT WAS AGE 4 he believes from a myocardial infarction. Mother Family Medical History: Diabetes Mellitus, Hyperlipidemia, Hypertension, Vascular Disorder Medications and Allergies Home Medications Medication Instructions Recorded Confirmed Type Cholecalciferol [Vitamin D3 (25 1,000 unit PO DAILY #0 11/01/19 11/07/19 History Mcg = 1000 Iu)] Multivitamins, Thera [Multivitamin 1 tab PO DAILY 11/01/19 11/07/19 History (formulary)] Phytonadione (Vit K1) [Vitamin K-1] 100 mcg PO DAILY #0 11/01/19 11/07/19 His tory Turmeric Root Extract [Turmeric] 500 mg PO DAILY #0 11/01/19 11/07/19 History Aspirin 81 mg PO DAILY #30 chew 11/04/19 11/07/19 Rx Atorvastatin [Lipitor] 80 mg PO DAILY #30 tab 11/04/19 11/07/19 Rx Isosorbide Mononitrate ER [Imdur] 30 mg PO DAILY #30 tab.er.24h 11/04/19 11/07/19 Rx Metoprolol Tartrate [Lopressor] 25 mg PO BID #60 tab 11/04/19 11/07/19 Rx Nitroglycerin Sl Tabs [Nitrostat] 0.4 mg SUBLINGUAL Q5M PRN #30 tab 11/04/19 11/07/19 Rx metFORMIN HCL ER [Glucophage Xr] 500 mg PO BID #60 tab 11/04/19 11/07/19 Rx Ascorbic Acid [Vitamin C] 500 mg PO DAILY 11/05/19 11/07/19 History Cinnamon Bark [Cinnamon] 500 mg PO DAILY 11/05/19 11/07/19 History Carol Brasher Supplement 1 tab PO DAILY 11/05/19 11/07/19 History Milk Thistle 150 mg PO DAILY 11/05/19 11/07/19 History Saw [place] 500 mg PO DAILY 11/07/19 11/07/19 History Allergies Allergy/AdvReac Type Severity Reaction Status Date / Time ragweed pollen Allergy Unknown Verified 11/07/19 08:45 Surgical - Exam Vital Signs Temp Pulse Resp BP Pulse Ox 97.9 F 112 H 18 185/109 99 11/07/19 05:59 11/07/19 05:59 11/07/19 05:59 11/07/19 05:59 11/07/19 05:59 - General well developed, well nourished, no distress - Eyes PERRL - ENT normal pinna - Respiratory normal expansion - Abdomen Abdomen soft. There is no rebound tenderness. There is no evidence of any peritoneal signs. Results - Labs 11/12/19 14:40 11/12/19 14:40 Abnormal Lab Results - Last 24 Hours (Table) 11/11/19 11/11/19 11/11/19 Range/Units 15:37 15:40 16:58 WBC 14.5 H (3.8-10.6) k/uL RBC 2.41 L (4.30-5.90) m/uL Hgb 7.7 L (13.0-17.5) gm/dL Hct 22.6 L (39.0-53.0) % Plt Count 125 L (150-450) k/uL Neutrophils # (1.3-7.7) k/uL Monocytes # (0-1.0) k/uL ABG pH (7.35-7.45) ABG pCO2 (35-45) mmHg ABG pO2 (83-108) mmHg ABG HCO3 (21-25) mmol/L ABG Total CO2 (19-24) mmol/L ABG O2 Saturation (94-97) % Potassium (3.5-5.1) mmol/L Chloride (98-107) mmol/L Carbon Dioxide (22-30) mmol/L BUN (9-20) mg/dL Creatinine (0.66-1.25) mg/dL Glucose (74-99) mg/dL POC Glucose (mg/dL) 167 H 143 H (75-99) mg/dL Plasma Lactic Acid Scott (0.7-2.0) mmol/L Calcium (8.4-10.2) mg/dL Phosphorus (2.5-4.5) mg/dL Total Bilirubin (0.2-1.3) mg/dL AST (17-59) U/L ALT (4-49) U/L C-Reactive Protein (<10.0) mg/L Total Protein (6.3-8.2) g/dL Albumin (3.5-5.0) g/dL 11/11/19 11/11/19 11/11/19 Range/Units 17:57 18:52 20:35 WBC (3.8-10.6) k/uL RBC (4.30-5.90) m/uL Hgb (13.0-17.5) gm/dL Hct (39.0-53.0) % Plt Count (150-450) k/uL Neutrophils # (1.3-7.7) k/uL Monocytes # (0-1.0) k/uL ABG pH (7.35-7.45) ABG pCO2 (35-45) mmHg ABG pO2 (83-108) mmHg ABG HCO3 (21-25) mmol/L ABG Total CO2 (19-24) mmol/L ABG O2 Saturation (94-97) % Potassium (3.5-5.1) mmol/L Chloride (98-107) mmol/L Carbon Dioxide (22-30) mmol/L BUN (9-20) mg/dL Creatinine (0.66-1.25) mg/dL Glucose (74-99) mg/dL POC Glucose (mg/dL) 135 H 156 H 149 H (75-99) mg/dL Plasma Lactic Acid Scott (0.7-2.0) mmol/L Calcium (8.4-10.2) mg/dL Phosphorus (2.5-4.5) mg/dL Total Bilirubin (0.2-1.3) mg/dL AST (17-59) U/L ALT (4-49) U/L C-Reactive Protein (<10.0) mg/L Total Protein (6.3-8.2) g/dL Albumin (3.5-5.0) g/dL 11/11/19 11/11/19 11/12/19 Range/Units 22:24 23:03 02:14 WBC (3.8-10.6) k/uL RBC (4.30-5.90) m/uL Hgb (13.0-17.5) gm/dL Hct (39.0-53.0) % Plt Count (150-450) k/uL Neutrophils # (1.3-7.7) k/uL Monocytes # (0-1.0) k/uL ABG pH (7.35-7.45) ABG pCO2 (35-45) mmHg ABG pO2 (83-108) mmHg ABG HCO3 (21-25) mmol/L ABG Total CO2 (19-24) mmol/L ABG O2 Saturation (94-97) % Potassium (3.5-5.1) mmol/L Chloride (98-107) mmol/L Carbon Dioxide (22-30) mmol/L BUN (9-20) mg/dL Creatinine (0.66-1.25) mg/dL Glucose (74-99) mg/dL POC Glucose (mg/dL) 147 H 123 H 113 H (75-99) mg/dL Plasma Lactic Acid Scott (0.7-2.0) mmol/L Calcium (8.4-10.2) mg/dL Phosphorus (2.5-4.5) mg/dL Total Bilirubin (0.2-1.3) mg/dL AST (17-59) U/L ALT (4-49) U/L C-Reactive Protein (<10.0) mg/L Total Protein (6.3-8.2) g/dL Albumin (3.5-5.0) g/dL 11/12/19 11/12/19 11/12/19 Range/Units 03:01 03:59 05:03 WBC (3.8-10.6) k/uL RBC (4.30-5.90) m/uL Hgb (13.0-17.5) gm/dL Hct (39.0-53.0) % Plt Count (150-450) k/uL Neutrophils # (1.3-7.7) k/uL Monocytes # (0-1.0) k/uL ABG pH (7.35-7.45) ABG pCO2 (35-45) mmHg ABG pO2 (83-108) mmHg ABG HCO3 (21-25) mmol/L ABG Total CO2 (19-24) mmol/L ABG O2 Saturation (94-97) % Potassium (3.5-5.1) mmol/L Chloride (98-107) mmol/L Carbon Dioxide (22-30) mmol/L BUN (9-20) mg/dL Creatinine (0.66-1.25) mg/dL Glucose (74-99) mg/dL POC Glucose (mg/dL) 150 H 129 H 138 H (75-99) mg/dL Plasma Lactic Acid Scott (0.7-2.0) mmol/L Calcium (8.4-10.2) mg/dL Phosphorus (2.5-4.5) mg/dL Total Bilirubin (0.2-1.3) mg/dL AST (17-59) U/L ALT (4-49) U/L C-Reactive Protein (<10.0) mg/L Total Protein (6.3-8.2) g/dL Albumin (3.5-5.0) g/dL 11/12/19 11/12/19 11/12/19 Range/Units 05:05 05:05 06:04 WBC 17.6 H (3.8-10.6) k/uL RBC 2.92 L (4.30-5.90) m/uL Hgb 9.3 L D (13.0-17.5) gm/dL Hct 27.3 L (39.0-53.0) % Plt Count 133 L (150-450) k/uL Neutrophils # 13.7 H (1.3-7.7) k/uL Monocytes # 1.3 H (0-1.0) k/uL ABG pH (7.35-7.45) ABG pCO2 (35-45) mmHg ABG pO2 (83-108) mmHg ABG HCO3 (21-25) mmol/L ABG Total CO2 (19-24) mmol/L ABG O2 Saturation (94-97) % Potassium (3.5-5.1) mmol/L Chloride 108 H (98-107) mmol/L Carbon Dioxide 20 L (22-30) mmol/L BUN 39 H (9-20) mg/dL Creatinine (0.66-1.25) mg/dL Glucose 107 H (74-99) mg/dL POC Glucose (mg/dL) 138 H (75-99) mg/dL Plasma Lactic Acid Scott (0.7-2.0) mmol/L Calcium 7.9 L (8.4-10.2) mg/dL Phosphorus (2.5-4.5) mg/dL Total Bilirubin (0.2-1.3) mg/dL AST (17-59) U/L ALT (4-49) U/L C-Reactive Protein (<10.0) mg/L Total Protein (6.3-8.2) g/dL Albumin (3.5-5.0) g/dL 11/12/19 11/12/19 11/12/19 Range/Units 09:23 10:18 10:53 WBC (3.8-10.6) k/uL RBC (4.30-5.90) m/uL Hgb (13.0-17.5) gm/dL Hct (39.0-53.0) % Plt Count (150-450) k/uL Neutrophils # (1.3-7.7) k/uL Monocytes # (0-1.0) k/uL ABG pH (7.35-7.45) ABG pCO2 (35-45) mmHg ABG pO2 (83-108) mmHg ABG HCO3 (21-25) mmol/L ABG Total CO2 (19-24) mmol/L ABG O2 Saturation (94-97) % Potassium (3.5-5.1) mmol/L Chloride (98-107) mmol/L Carbon Dioxide (22-30) mmol/L BUN (9-20) mg/dL Creatinine (0.66-1.25) mg/dL Glucose (74-99) mg/dL POC Glucose (mg/dL) 156 H 166 H 176 H (75-99) mg/dL Plasma Lactic Acid Scott (0.7-2.0) mmol/L Calcium (8.4-10.2) mg/dL Phosphorus (2.5-4.5) mg/dL Total Bilirubin (0.2-1.3) mg/dL AST (17-59) U/L ALT (4-49) U/L C-Reactive Protein (<10.0) mg/L Total Protein (6.3-8.2) g/dL Albumin (3.5-5.0) g/dL 11/12/19 11/12/19 11/12/19 Range/Units 11:50 14:01 14:09 WBC (3.8-10.6) k/uL RBC (4.30-5.90) m/uL Hgb (13.0-17.5) gm/dL Hct (39.0-53.0) % Plt Count (150-450) k/uL Neutrophils # (1.3-7.7) k/uL Monocytes # (0-1.0) k/uL ABG pH 7.22 L 7.29 L (7.35-7.45) ABG pCO2 31 L 22 L (35-45) mmHg ABG pO2 17 L* 65 L (83-108) mmHg ABG HCO3 13 L 11 L (21-25) mmol/L ABG Total CO2 14 L 11 L (19-24) mmol/L ABG O2 Saturation 14.0 L 88.5 L (94-97) % Potassium (3.5-5.1) mmol/L Chloride (98-107) mmol/L Carbon Dioxide (22-30) mmol/L BUN (9-20) mg/dL Creatinine (0.66-1.25) mg/dL Glucose (74-99) mg/dL POC Glucose (mg/dL) 155 H (75-99) mg/dL Plasma Lactic Acid Scott (0.7-2.0) mmol/L Calcium (8.4-10.2) mg/dL Phosphorus (2.5-4.5) mg/dL Total Bilirubin (0.2-1.3) mg/dL AST (17-59) U/L ALT (4-49) U/L C-Reactive Protein (<10.0) mg/L Total Protein (6.3-8.2) g/dL Albumin (3.5-5.0) g/dL 11/12/19 11/12/19 11/12/19 Range/Units 14:40 14:40 14:40 WBC 17.7 H (3.8-10.6) k/uL RBC 2.51 L (4.30-5.90) m/uL Hgb 7.8 L D (13.0-17.5) gm/dL Hct 24.4 L (39.0-53.0) % Plt Count (150-450) k/uL Neutrophils # 14.6 H (1.3-7.7) k/uL Monocytes # (0-1.0) k/uL ABG pH (7.35-7.45) ABG pCO2 (35-45) mmHg ABG pO2 (83-108) mmHg ABG HCO3 (21-25) mmol/L ABG Total CO2 (19-24) mmol/L ABG O2 Saturation (94-97) % Potassium 6.0 H (3.5-5.1) mmol/L Chloride (98-107) mmol/L Carbon Dioxide 19 L (22-30) mmol/L BUN 42 H (9-20) mg/dL Creatinine 1.80 H (0.66-1.25) mg/dL Glucose (74-99) mg/dL POC Glucose (mg/dL) (75-99) mg/dL Plasma Lactic Acid Scott 11.8 H* (0.7-2.0) mmol/L Calcium 7.8 L (8.4-10.2) mg/dL Phosphorus 6.7 H (2.5-4.5) mg/dL Total Bilirubin 1.8 H (0.2-1.3) mg/dL AST 535 H (17-59) U/L ALT 408 H (4-49) U/L C-Reactive Protein 78.9 H (<10.0) mg/L Total Protein 4.8 L (6.3-8.2) g/dL Albumin 3.1 L (3.5-5.0) g/dL Microbiology - Last 24 Hours (Table) 11/10/19 21:15 Blood Culture - Preliminary Blood No Growth after 24 hours Diabetes panel 11/12/19 11/12/19 Range/Units 05:05 14:40 Sodium 138 139 (137-145) mmol/L Potassium 3.8 6.0 H (3.5-5.1) mmol/L Chloride 108 H 103 (98-107) mmol/L Carbon Dioxide 20 L 19 L (22-30) mmol/L BUN 39 H 42 H (9-20) mg/dL Creatinine 1.17 1.80 H (0.66-1.25) mg/dL Glucose 107 H 98 (74-99) mg/dL Calcium 7.9 L 7.8 L (8.4-10.2) mg/dL AST 535 H (17-59) U/L ALT 408 H (4-49) U/L Alkaline Phosphatase 126 (38-126) U/L Total Protein 4.8 L (6.3-8.2) g/dL Albumin 3.1 L (3.5-5.0) g/dL Calcium panel 11/12/19 11/12/19 Range/Units 05:05 14:40 Calcium 7.9 L 7.8 L (8.4-10.2) mg/dL Phosphorus 6.7 H (2.5-4.5) mg/dL Albumin 3.1 L (3.5-5.0) g/dL Pituitary panel 11/12/19 11/12/19 Range/Units 05:05 14:40 Sodium 138 139 (137-145) mmol/L Potassium 3.8 6.0 H (3.5-5.1) mmol/L Chloride 108 H 103 (98-107) mmol/L Carbon Dioxide 20 L 19 L (22-30) mmol/L BUN 39 H 42 H (9-20) mg/dL Creatinine 1.17 1.80 H (0.66-1.25) mg/dL Glucose 107 H 98 (74-99) mg/dL Calcium 7.9 L 7.8 L (8.4-10.2) mg/dL Adrenal panel 11/12/19 11/12/19 Range/Units 05:05 14:40 Sodium 138 139 (137-145) mmol/L Potassium 3.8 6.0 H (3.5-5.1) mmol/L Chloride 108 H 103 (98-107) mmol/L Carbon Dioxide 20 L 19 L (22-30) mmol/L BUN 39 H 42 H (9-20) mg/dL Creatinine 1.17 1.80 H (0.66-1.25) mg/dL Glucose 107 H 98 (74-99) mg/dL Calcium 7.9 L 7.8 L (8.4-10.2) mg/dL Total Bilirubin 1.8 H (0.2-1.3) mg/dL AST 535 H (17-59) U/L ALT 408 H (4-49) U/L Alkaline Phosphatase 126 (38-126) U/L Total Protein 4.8 L (6.3-8.2) g/dL Albumin 3.1 L (3.5-5.0) g/dL Assessment and Plan Assessment: Patient's liver enzymes are also elevated. Patient most likely has an element of hypotension which is created his clinical condition. The patient is receiving fluid hydration. We will watch him closely. If he develops any significant abdominal pain or increased white count he will undergo CAT scan of the abdomen. Currently there is no evidence of any peritoneal signs or intra- abdominal pathology.
[2019-11-12 15:39] LABS: ABG Base Excess -12.4 mmol/L; ABG HCO3 13 mmol/L (21-25); ABG Oxygen Saturation 90.6 % (94-97); ABG PCO2 24 mmHg (35-45); ABG PH 7.35 (7.35-7.45); ABG PO2 68 mmHg (83-108); ABG TCO2 14 mmol/L (19-24); Allen Test Performed? Yes
[2019-11-12] MEDS ORDERED: SODIUM CHLORIDE 0.9% 500 ML 500 ML IV ONE (15:53)
[2019-11-12] MEDS ORDERED: SODIUM CHLORIDE 0.9% 1,000 ML IV SCH (16:00)
[2019-11-12] MEDS ORDERED: INSULIN REGULAR 100 UNIT/ML VIAL IV ONE (16:00)
[2019-11-12] MEDS ORDERED: DEXTROSE 50% SYRINGE 50 ML IVP ONE (16:00)
[2019-11-12] MEDS ORDERED: ATROPINE SULFATE 0.1 MG/ML 10ML SYRINGE ONE (16:07)
[2019-11-12] MEDS ORDERED: CALCIUM CHLORIDE 100 MG/ML 10 ML SYRINGE ONE (16:09)
[2019-11-12] MEDS ORDERED: propofoL 100 ML IV ONE (16:13)
[2019-11-12] MEDS ORDERED: CALCIUM GLUCONATE 1 GM in SODIUM CHLORIDE 0.9% 100 ML IVPB ONE (16:15)
[2019-11-12] MEDS ORDERED: CHLORHEXIDINE GLUCONATE 15 ML CUP MUCOUS MEM ONE (16:34)
[2019-11-12] MEDS ORDERED: SODIUM CHLORIDE 0.9% 1,000 ML IV ONE (16:46)
--- NOTE | 2019-11-12 16:52 | XR ---
EXAMINATION TYPE: XR chest 1V portable DATE OF EXAM: 11/12/2019 COMPARISON: Today HISTORY: Check tube placement TECHNIQUE: Single view FINDINGS: Endotracheal tube is 4 cm from the stephanie. There is nasogastric tube in the stomach. There is blunting of right costophrenic angle. There is mild pulmonary congestion. Heart is slightly enlarg ed. There is mild infiltrate right lung base. There are chest leads. IMPRESSION: Pleural fluid and infiltrate right lung base increased compared to exam 5 hours ago. Endo tracheal tube in good position. Mild heart failure is probably present.
[2019-11-12 16:58] LABS: ABG Base Excess -8.2 mmol/L; ABG HCO3 17 mmol/L (21-25); ABG Oxygen Saturation 99.5 % (94-97); ABG PCO2 32 mmHg (35-45); ABG PH 7.35 (7.35-7.45); ABG PO2 365 mmHg (83-108); ABG TCO2 18 mmol/L (19-24); Allen Test Performed? Yes
--- NOTE | 2019-11-12 16:59 | P.PN ---
Progress Note - Text Progress Note Date: 11/12/19 CODE LACHELLE note: JENSEN LAROSE was called at 4:07 PM. CONTENT DEVELOPMENT SPECIALIST Braxton Beyer was at bedside. Patient was noted to have agonal breathing and bradycardic with pulse in the 30s. He was given 1 amp of bicarbonate and calcium chloride. External pacemaker was applied and his pulse improved to 80. Patient was intubated by FRITZ. Dr. Malin was notified by Braxton Beyer. Patient's blood pressure was noted to be 119/55. These events took approximately 20 minutes.
[2019-11-12] MEDS: NOREPINEPHRINE 4 MG in SODIUM CHLORIDE 0.9% 250 ML IV SCH (17:15)
--- NOTE | 2019-11-12 17:38 | ECHOF ---
Referral Reason:assess LV function MEASUREMENTS -------- HEIGHT: 127.0 cm WEIGHT: 84.4 kg BP: FINDINGS -------- Sinus rhythm. Echo Done11/02/19: Limited Study for LV Function. Overall left ventricular systolic function is low-normal with, an EF between 50 - 55 %. There is mild aortic valve sclerosis. Mild mitral regurgitation is present. There is no pericardial effusion. CONCLUSIONS -------- 1. Overall left ventricular systolic function is low-normal with, an EF between 50 - 55 %. CHARGE AUDITOR: hCasidy Hassan RDCS
[2019-11-12 17:57] LABS: Glucose,Whole Blood 179 mg/dL (75-99)
[2019-11-12 18:27] LABS: Glucose,Whole Blood 213 mg/dL (75-99)
--- NOTE | 2019-11-12 18:30 | P.ANPRN ---
Procedure Note - Anesthesia - Invasive Line Right Central Line Time Out Performed: Yes Date of Procedure: 11/12/19 Time of Procedure: 18:05 (ICU) Preparation: Sterile Prep, Sterile Dressing Ultrasound Used: No ( RIGHT Internal Jagular) Needle Guage: triple Lumen Narrative: Central line placement per sterile protocol utilized. Description status open heart surgery 2 days ago and currently is hemodynamically unstable, need for central line placement for invasive monitoring and also for vasopressor support, central line placement done sterile technique, right internal jugular triple lumen catheter placed, and uneventful, chest x-ray ordered, and we will check the placement and after that we will use the central line ,As per icu TEAM intensive care unit team
[2019-11-12] MEDS: PIPERACILLIN-TAZOBACTAM 3.375 GM in SODIUM CHLORIDE 0.9% 100 ML IVPB SCH (18:35)
--- NOTE | 2019-11-12 18:41 | XR ---
EXAMINATION TYPE: XR chest 1V portable DATE OF EXAM: 11/12/2019 COMPARISON: Today HISTORY: Check line placement TECHNIQUE: FINDINGS: There is right jugular catheter with tip in the right atrium. There is nasogastric tube in the body of the stomach. There is pulmonary vascular congestion. There is blunting of costophrenic an gles. There are chest leads. There are sternal wires. IMPRESSION: There is congestive heart failure with pleural fluid. Congestion increased compared to ex am 2 hours ago.
[2019-11-12 18:46] LABS: ABG Base Excess -2.9 mmol/L; ABG HCO3 21 mmol/L (21-25); ABG Oxygen Saturation 98.6 % (94-97); ABG PCO2 27 mmHg (35-45); ABG PH 7.49 (7.35-7.45); ABG PO2 117 mmHg (83-108); ABG TCO2 21 mmol/L (19-24); Allen Test Performed? Yes
[2019-11-12 18:57] LABS: Albumin 2.7 g/dL (3.5-5.0); Total Protein 4.4 g/dL (6.3-8.2)
[2019-11-12] MEDS ORDERED: ALBUMIN HUMAN 5% 250 ML in EMPTY BAG 1 BAG IVPB ONE (20:16)
[2019-11-12 20:38] LABS: Glucose,Whole Blood 265 mg/dL (75-99)
[2019-11-12] MEDS: CHLORHEXIDINE GLUCONATE 15 ML CUP MUCOUS MEM SCH (20:43)
[2019-11-12] MEDS: SENNOSIDES-DOCUSATE SODIUM 1 EACH TAB PO SCH (20:43)
[2019-11-12] MEDS ORDERED: QUEtiapine 25 MG TAB PO SCH (21:00)
[2019-11-12] MEDS: LOSARTAN 25 MG TAB PO SCH (22:23)
[2019-11-13 00:01] LABS: Glucose,Whole Blood 255 mg/dL (75-99)
[2019-11-13] MEDS: INSULIN ASPART (NovoLOG) 100 UNIT/ML VIAL SQ SCH ×6 (00:05→20:49)
[2019-11-13] MEDS: PIPERACILLIN-TAZOBACTAM 3.375 GM in SODIUM CHLORIDE 0.9% 100 ML IVPB SCH ×4 (00:06→23:46)
[2019-11-13] MEDS: NOREPINEPHRINE 4 MG in SODIUM CHLORIDE 0.9% 250 ML IV SCH ×2 (01:57→20:51)
[2019-11-13 04:01] LABS: Glucose,Whole Blood 194 mg/dL (75-99)
[2019-11-13 04:09] LABS: Basophils % (A) 0 %; Eosinophils # (A) 0.2 k/uL (0-0.7); Eosinophils % (A) 1 %; HCT 22.8 % (39.0-53.0); HGB 7.5 gm/dL (13.0-17.5); Lymphocytes # (A) 1.6 k/uL (1.0-4.8); Lymphocytes % (A) 9 %; MCH 30.7 pg (25.0-35.0); MCHC 33.1 g/dL (31.0-37.0); Monocytes # (A) 1.1 k/uL (0-1.0); Monocytes % (A) 6 %; Neutrophils # (A) 15.2 k/uL (1.3-7.7); Neutrophils % (A) 81 %; Platelet Count 165 k/uL (150-450); RBC 2.46 m/uL (4.30-5.90); RDW 14.9 % (11.5-15.5); WBC 18.7 k/uL (3.8-10.6)
[2019-11-13 04:22] LABS: Albumin 2.9 g/dL (3.5-5.0); Calcium 7.8 mg/dL (8.4-10.2); Potassium 3.4 mmol/L (3.5-5.1); Total Bilirubin 1.6 mg/dL (0.2-1.3); Total Protein 4.6 g/dL (6.3-8.2)
[2019-11-13 04:39] LABS: ABG Base Excess 3.6 mmol/L; ABG HCO3 26 mmol/L (21-25); ABG Oxygen Saturation 99.1 % (94-97); ABG PCO2 31 mmHg (35-45); ABG PH 7.53 (7.35-7.45); ABG PO2 145 mmHg (83-108); ABG TCO2 27 mmol/L (19-24)
[2019-11-13 04:49] LABS: Allen Test Performed? no
[2019-11-13] MEDS: POTASSIUM CHLORIDE 20 MEQ in WATER FOR INJECTION 1 100ML.BAG IVPB SCH ×4 (04:55→14:25)
[2019-11-13] MEDS: DEXTROSE 5% IN WATER 1,000 ML with SODIUM BICARB (1 MEQ/ML) 150 ML IV SCH (05:23)
[2019-11-13] MEDS: HEPARIN SODIUM,PORCINE 5,000 UNIT/ML 1 ML VIAL SQ SCH ×3 (06:30→23:52)
[2019-11-13] MEDS: PANTOPRAZOLE 40 MG TABLET PO SCH (06:31)
[2019-11-13] MEDS: ASCORBIC ACID 500 MG TAB PO SCH ×2 (06:31→18:10)
[2019-11-13] MEDS: FERROUS SULFATE 325 MG TAB PO SCH ×2 (06:31→18:08)
--- NOTE | 2019-11-13 06:40 | XR ---
EXAMINATION TYPE: XR chest 1V portable DATE OF EXAM: 11/13/2019 HISTORY: Tube placement. REFERENCE: Previous study dated 11/12/2019. FINDINGS: The patient's ET tube, NG tube and right internal jugular catheter remain in place, unchang ed in appearance. There has been a midline sternotomy. There is worsening vascular congestion. There is mild interstitial change. There is confluent airspac e disease the lung bases which may represent confluent edema or pneumonia. There are small, bilateral effusions. The heart is enlarged. IMPRESSION: WORSENING CHANGES OF PULMONARY EDEMA. SUPERIMPOSED BASILAR PNEUMONIA IS NOT EXCLUDED.
[2019-11-13 07:17] LABS: Appearance,Urine Turbid (Clear); Bilirubin,Urine Negative (Negative); Blood,Urine Large (Negative); Color,Urine Red; Glucose,Urine (UA) Negative (Negative); Ketones,Urine Trace (Negative); Leukocyte Esterase,Urine Moderate (Negative); Mucus,Urine Rare /hpf; Nitrite,Urine Negative (Negative); PH, Urine 5.5 (5.0-8.0); Protein,Urine 1+ (Negative); RBC,Urine >182 /hpf (0-5); Specific Gravity,Urine 1.019 (1.001-1.035); Urobilinogen,Urine <2.0 mg/dL (<2.0); WBC,Urine >182 /hpf (0-5)
[2019-11-13] MEDS: IPRATROPIUM-ALBUTEROL 3 ML NEB INHALATION SCH ×4 (07:52→19:29)
[2019-11-13] MEDS ORDERED: DEXTROSE 5%-0.45% NACL 1,000 ML with POTASSIUM CHLORIDE 20 MEQ IV SCH ×2 (08:00)
[2019-11-13] MEDS ORDERED: CALCIUM GLUCONATE 1 GM in SODIUM CHLORIDE 0.9% 100 ML IVPB ONE (08:00)
[2019-11-13 08:09] LABS: Glucose,Whole Blood 119 mg/dL (75-99)
[2019-11-13] MEDS: D5-0.45% NACL WITH KCL 20MEQ/L 1,000 ML IV SCH ×2 (09:22→20:50)
--- NOTE | 2019-11-13 09:32 | P.PN ---
Subjective Progress Note Date: 11/13/19 Principal diagnosis: Symptomatic multivessel coronary artery disease, unstable angina, status post subendocardial myocardial infarction. Past medical history significant for CAD with previous stent placement to the proximal circumflex and ostial OM1, hypertension, hyperlipidemia, chronic ongoing tobacco dependence, mild COPD with preoperative FEV1 60% of predicted, right internal carotid artery stenosis 50- 69%, peripheral arterial disease with previous arthrectomy and MERCHANDISE PRESENTATION ASSOCIATE of the left SFA, atherectomy and MERCHANDISE PRESENTATION ASSOCIATE of the left LATIN DANCE INSTRUCTOR, with stenting of the left BRIAN, poorly controlled type 2 diabetes with preoperative hemoglobin A1c 9.1%, bladder cancer status post chemo and radiation, occasional marijuana use, medication noncompliance, and family history of premature coronary artery disease. POD #5 coronary artery bypass grafting 5 with GR to the LAD, left radial artery to the obtuse marginal coronary artery, a reverse greater saphenous vein to the posterior lateral coronary artery, sequential saphenous vein to the first and second diagonal coronary artery performed on cardiopulmonary bypass with beating heart. Endoscopic vein harvest of the left greater saphenous vein from the ankle to the groin. Endoscopic harvest of the left radial artery. Epi- aortic ultrasound and ligation of left atrial appendage with 40 mm AtriCure clip. Postoperative acute blood loss anemia, expected outcome given cardiopulmonary bypass and hemodilution. Postoperative confusion, unexpected but potential outcome given cardiopulmonary bypass and intraoperative cardiac arrest. Postoperative new onset paroxysmal Afib with RVR, unexpected. Postoperative acute hypoxemic respiratory failure requiring reintubation, secondary to metabolic acidosis and hypotension. The patient was seen in follow-up today 11/13/2019 at his bedside in the intensive care unit. Yesterday 11/12/2019 at around 2:00 p.m. the patient became tachypneic and hypotensive. He was given 500 mL of 5% albumin, an ABG was drawn which demonstrated a pH of 7.29, pCO2 22, pO2 65, HCO3 11, oxygen saturation 88.5, and a base excess of -16.0. He was subsequently given 2 Amp of sodium bicarbonate, his oxygen was titrated up to 45%. The patient continued to deny any complaints of pain or shortness of breath. A repeat ABG was completed around 3:30 PM which showed a pH of 7.35, pCO2 of 24, pO2 of 68, HCO3 13, oxygen saturation 90.6, and a base excess of -12.4. Subsequently, around 4:07 PM the patient became bradycardic heart rate in the 30s with agonal breathing and a CODE BLUE was called. He was intubated, and his epicardial pacemaker wires were placed to his bedside pacemaker generator with the DDD of 80. Dr. Malin from critical care medicine was notified with vent settings obtained and the patient was also started on a norepinephrine drip for blood pressure support. This morning the patient remains intubated with mechanical ventilator support with current ventilator settings as follows AC 24, TV 450, FiO2 50% and a PEEP of 5. He is hemodynamically stable and is currently on no inotropic or pressor support. The norepinephrine drip was stopped around 6:30 AM this morning. ABG results this morning show a pH of 7.53, pCO2 31, pO2 145, HCO3 26, oxygen saturation 99.1 and a base excess of 3.6. The patient remains sedated with propofol drip at 40 mcg/kg/m, he is not following any verbal stimuli but does withdraw from noxious stimuli. D5W with 3 Amps sodium bicarb is infusing at 75 mL per hour, as well as 0.9% normal saline at 30 mL per hour. Newman catheter remains for accurate I&O's with 240 mL output of urine in the last 8 hours. Atrial and ventricular epicardial pacemaker wires remain in place and connected to the bedside pacemaker generator on a mode of AAI with a rate of 70. His underlying rhythm is sinus bradycardia with sinus arrhythmia heart rate in the 50s. Objective - Vital Signs Vital signs: Vital Signs Temp 98.2 F 11/13/19 04:00 Pulse 70 11/13/19 08:05 Resp 24 11/13/19 07:00 BP 124/66 11/13/19 04:00 Pulse Ox 100 11/13/19 07:00 Intake & Output 11/12/19 11/13/19 11/13/19 18:59 06:59 18:59 Intake Total 3108.530 2226.006 113.389 Output Total 207 575 42 Balance 2901.530 1651.006 71.389 Weight 84.4 kg 91.9 kg Intake: IV 3736 1679 111 Albumin Human 25% 50 ml 50 In Empty Bag 1 bag @ 50 mls/hr IVPB ONCE ONE Rx#: [id number] Albumin Human 5% 250 ml 250 In Empty Bag 1 bag @ 250 mls/hr IVPB ONCE ONE Rx#: [id number] Dextrose 5% in Water 1, 300 900 75 000 ml @ 75 mls/hr IV . [id number] YVAN with Sodium Bicarb (1 Meq/ml) 150 ml Rx#:[id number] Dextrose Amp 50 Lactated Ringers 1,000 ml 180 @ 20 mls/hr IV .Q24H [facility] Rx#:[id number] Normal Saline Pressure 6 69 6 Bag Potassium Chloride 10 meq 300 100 In Water For Injection 1 100ml.bag @ 100 mls/hr IVPB Q1H [facility] Rx#: [id number] Sodium Bicarbonate Amp 200 Sodium Chloride 0.9% 1, 90 360 30 000 ml @ 30 mls/hr IV . Q24H [facility] Rx#:[id number] Sodium Chloride 0.9% 1, 1000 000 ml @ 999 mls/hr IV . Q1H1M [facility] Rx#:[id number] Intake, IV Titration 532.530 547.006 2.389 Amount Albumin Human 5% 250 ml 500 In Empty Bag 1 bag @ 250 mls/hr IVPB ONCE ONE Rx#: [id number] Insulin Regular 100 unit 17.338 In Sodium Chloride 0.9% 100 ml @ Per Protocol IV .Q0M [facility] Rx#:[id number] Norepinephrine 4 mg In 284.690 Sodium Chloride 0.9% 250 ml @ 0.05 MCG/KG/MIN 16. 078 mls/hr IV .[id number] [facility] Rx#:[id number] Propofol 1,000 mg In 15.192 262.316 2.389 Empty Bag 1 bag @ Titrate IV .Q0M [facility] Rx#: [id number] Oral 400 Output: Chest Tube Drainage 10 Left Pleural Chest Tube 10 Right Pleural Chest Tube 0 Gastric Drainage 180 Urine 197 395 42 Other: Voiding Method Indwelling Catheter Indwelling Catheter # Bowel Movements 1 ABP, PAP, CO, CI - Last Documented Arterial Blood Pressure 118/51 Pulmonary Artery Pressure 30/17 Cardiac Output 4.5 Cardiac Index 2.3 - Constitutional Constitutional Comment(s): Remains sedated with propofol drip at 40 mcg/kg/m. Remains intubated with mechanical ventilator support. Currently not following any simple verbal commands but does withdraw from noxious stimuli. Oxygen saturation are 100% with the current mechanical ventilator settings. General appearance: Present: obese - EENT Eyes: Present: abnormal pupil (Right pupil slightly larger than his left pupil.) - Neck Details: Neck is supple, right IJ triple lumen central line in place. - Respiratory Details: Lung sounds essentially clear throughout, diminished to his bilateral bases. No wheezes, rhonchi or crackles. Respirations are symmetrical and nonlabored with mechanical ventilator support. Current mechanical ventilator settings are as follows: AC 24, TV 450, FiO2 50%, PEEP of 5. - Cardiovascular Details: Regular rhythm and rate. S1 and S2 present, negative for S3, gallop or murmur. Sternum is stable. Atrial and ventricular epicardial pacemaker wires in place and connected to the bedside pacemaker generator on an AAI of 70. Underlying rhythm is bradycardia with sinus arrhythmia heart rate in the 50s. Knee-high ELSIE hose and sequential compression devices in place to his bilateral lower extremities. Heart hugger is in place. +1 edema to his left forearm. - Gastrointestinal Gastrointestinal Comment(s): Abdomen is soft, and nondistended. Hypoactive bowel sounds present in all 4 abdominal quadrants. No guarding or rigidity. Bowel movement last night. OG tube in place to low intermittent wall suction. - Genitourinary Genitourinary Comment(s): Newman catheter remains in place for accurate I&O. Draining red turbid urine with 240 mL output the last 8 hours. - Integumentary Integumentary Comment(s): Skin is warm and dry. No clubbing or cyanosis is present. Midline sternal incision is clean, dry and approximated. No drainage or redness is present. Gauze dressing is clean, dry and in place. Left lower extremity EVH sites is clean, dry and approximated. No drainage or redness is present. Left forearm radial harvest sites clean, dry and approximated. No drainage or redness is pr esent. - Neurologic Neurologic Comment(s): Remains sedated on propofol drip. - Musculoskeletal Musculoskeletal: Present: generalized weakness - Psychiatric Psychiatric Comment(s): Remains sedated on propofol drip. - Allied health notes Allied health notes reviewed: nursing - Labs CBC & Chem 7: 11/13/19 04:00 11/13/19 04:00 Labs: Abnormal Lab Results - Last 24 Hours (Table) 11/12/19 11/12/19 11/12/19 Range/Units 09:23 10:18 10:53 WBC (3.8-10.6) k/uL RBC (4.30-5.90) m/uL Hgb (13.0-17.5) gm/dL Hct (39.0-53.0) % Neutrophils # (1.3-7.7) k/uL Monocytes # (0-1.0) k/uL ABG pH (7.35-7.45) ABG pCO2 (35-45) mmHg ABG pO2 (83-108) mmHg ABG HCO3 (21-25) mmol/L ABG Total CO2 (19-24) mmol/L ABG O2 Saturation (94-97) % ABG Lactic Acid (0.5-1.6) mmol/L Potassium (3.5-5.1) mmol/L Carbon Dioxide (22-30) mmol/L BUN (9-20) mg/dL Creatinine (0.66-1.25) mg/dL Glucose (74-99) mg/dL POC Glucose (mg/dL) 156 H 166 H 176 H (75-99) mg/dL Plasma Lactic Acid Scott (0.7-2.0) mmol/L Calcium (8.4-10.2) mg/dL Phosphorus (2.5-4.5) mg/dL Total Bilirubin (0.2-1.3) mg/dL AST (17-59) U/L ALT (4-49) U/L C-Reactive Protein (<10.0) mg/L Total Protein (6.3-8.2) g/dL Albumin (3.5-5.0) g/dL Urine Protein (Negative) Urine Ketones (Negative) Urine Blood (Negative) Ur Leukocyte Esterase (Negative) Urine RBC (0-5) /hpf Urine WBC (0-5) /hpf Urine Mucus (None) /hpf 11/12/19 11/12/19 11/12/19 Range/Units 11:50 14:01 14:09 WBC (3.8-10.6) k/uL RBC (4.30-5.90) m/uL Hgb (13.0-17.5) gm/dL Hct (39.0-53.0) % Neutrophils # (1.3-7.7) k/uL Monocytes # (0-1.0) k/uL ABG pH 7.22 L 7.29 L (7.35-7.45) ABG pCO2 31 L 22 L (35-45) mmHg ABG pO2 17 L* 65 L (83-108) mmHg ABG HCO3 13 L 11 L (21-25) mmol/L ABG Total CO2 14 L 11 L (19-24) mmol/L ABG O2 Saturation 14.0 L 88.5 L (94-97) % ABG Lactic Acid (0.5-1.6) mmol/L Potassium (3.5-5.1) mmol/L Carbon Dioxide (22-30) mmol/L BUN (9-20) mg/dL Creatinine (0.66-1.25) mg/dL Glucose (74-99) mg/dL POC Glucose (mg/dL) 155 H (75-99) mg/dL Plasma Lactic Acid Scott (0.7-2.0) mmol/L Calcium (8.4-10.2) mg/dL Phosphorus (2.5-4.5) mg/dL Total Bilirubin (0.2-1.3) mg/dL AST (17-59) U/L ALT (4-49) U/L C-Reactive Protein (<10.0) mg/L Total Protein (6.3-8.2) g/dL Albumin (3.5-5.0) g/dL Urine Protein (Negative) Urine Ketones (Negative) Urine Blood (Negative) Ur Leukocyte Esterase (Negative) Urine RBC (0-5) /hpf Urine WBC (0-5) /hpf Urine Mucus (None) /hpf 11/12/19 11/12/19 11/12/19 Range/Units 14:40 14:40 14:40 WBC 17.7 H (3.8-10.6) k/uL RBC 2.51 L (4.30-5.90) m/uL Hgb 7.8 L D (13.0-17.5) gm/dL Hct 24.4 L (39.0-53.0) % Neutrophils # 14.6 H (1.3-7.7) k/uL Monocytes # (0-1.0) k/uL ABG pH (7.35-7.45) ABG pCO2 (35-45) mmHg ABG pO2 (83-108) mmHg ABG HCO3 (21-25) mmol/L ABG Total CO2 (19-24) mmol/L ABG O2 Saturation (94-97) % ABG Lactic Acid (0.5-1.6) mmol/L Potassium 6.0 H (3.5-5.1) mmol/L Carbon Dioxide 19 L (22-30) mmol/L BUN 42 H (9-20) mg/dL Creatinine 1.80 H (0.66-1.25) mg/dL Glucose (74-99) mg/dL POC Glucose (mg/dL) (75-99) mg/dL Plasma Lactic Acid Scott 11.8 H* (0.7-2.0) mmol/L Calcium 7.8 L (8.4-10.2) mg/dL Phosphorus 6.7 H (2.5-4.5) mg/dL Total Bilirubin 1.8 H (0.2-1.3) mg/dL AST 535 H (17-59) U/L ALT 408 H (4-49) U/L C-Reactive Protein 78.9 H (<10.0) mg/L Total Protein 4.8 L (6.3-8.2) g/dL Albumin 3.1 L (3.5-5.0) g/dL Urine Protein (Negative) Urine Ketones (Negative) Urine Blood (Negative) Ur Leukocyte Esterase (Negative) Urine RBC (0-5) /hpf Urine WBC (0-5) /hpf Urine Mucus (None) /hpf 11/12/19 11/12/19 11/12/19 Range/Units 15:34 16:55 17:56 WBC (3.8-10.6) k/uL RBC (4.30-5.90) m/uL Hgb (13.0-17.5) gm/dL Hct (39.0-53.0) % Neutrophils # (1.3-7.7) k/uL Monocytes # (0-1.0) k/uL ABG pH (7.35-7.45) ABG pCO2 24 L 32 L (35-45) mmHg ABG pO2 68 L 365 H (83-108) mmHg ABG HCO3 13 L 17 L (21-25) mmol/L ABG Total CO2 14 L 18 L (19-24) mmol/L ABG O2 Saturation 90.6 L 99.5 H (94-97) % ABG Lactic Acid (0.5-1.6) mmol/L Potassium (3.5-5.1) mmol/L Carbon Dioxide (22-30) mmol/L BUN (9-20) mg/dL Creatinine (0.66-1.25) mg/dL Glucose (74-99) mg/dL POC Glucose (mg/dL) 179 H (75-99) mg/dL Plasma Lactic Acid Scott (0.7-2.0) mmol/L Calcium (8.4-10.2) mg/dL Phosphorus (2.5-4.5) mg/dL Total Bilirubin (0.2-1.3) mg/dL AST (17-59) U/L ALT (4-49) U/L C-Reactive Protein (<10.0) mg/L Total Protein (6.3-8.2) g/dL Albumin (3.5-5.0) g/dL Urine Protein (Negative) Urine Ketones (Negative) Urine Blood (Negative) Ur Leukocyte Esterase (Negative) Urine RBC (0-5) /hpf Urine WBC (0-5) /hpf Urine Mucus (None) /hpf 11/12/19 11/12/19 11/12/19 Range/Units 18:20 18:20 18:25 WBC (3.8-10.6) k/uL RBC (4.30-5.90) m/uL Hgb (13.0-17.5) gm/dL Hct (39.0-53.0) % Neutrophils # (1.3-7.7) k/uL Monocytes # (0-1.0) k/uL ABG pH (7.35-7.45) ABG pCO2 (35-45) mmHg ABG pO2 (83-108) mmHg ABG HCO3 (21-25) mmol/L ABG Total CO2 (19-24) mmol/L ABG O2 Saturation (94-97) % ABG Lactic Acid (0.5-1.6) mmol/L Potassium (3.5-5.1) mmol/L Carbon Dioxide (22-30) mmol/L BUN 48 H (9-20) mg/dL Creatinine 1.60 H (0.66-1.25) mg/dL Glucose 186 H (74-99) mg/dL POC Glucose (mg/dL) 213 H (75-99) mg/dL Plasma Lactic Acid Scott 5.0 H* (0.7-2.0) mmol/L Calcium 8.0 L (8.4-10.2) mg/dL Phosphorus (2.5-4.5) mg/dL Total Bilirubin 2.0 H (0.2-1.3) mg/dL AST 1991 H (17-59) U/L ALT 1403 H (4-49) U/L C-Reactive Protein (<10.0) mg/L Total Protein 4.4 L (6.3-8.2) g/dL Albumin 2.7 L (3.5-5.0) g/dL Urine Protein (Negative) Urine Ketones (Negative) Urine Blood (Negative) Ur Leukocyte Esterase (Negative) Urine RBC (0-5) /hpf Urine WBC (0-5) /hpf Urine Mucus (None) /hpf 11/12/19 11/12/19 11/13/19 Range/Units 18:43 20:37 00:00 WBC (3.8-10.6) k/uL RBC (4.30-5.90) m/uL Hgb (13.0-17.5) gm/dL Hct (39.0-53.0) % Neutrophils # (1.3-7.7) k/uL Monocytes # (0-1.0) k/uL ABG pH 7.49 H (7.35-7.45) ABG pCO2 27 L (35-45) mmHg ABG pO2 117 H (83-108) mmHg ABG HCO3 (21-25) mmol/L ABG Total CO2 (19-24) mmol/L ABG O2 Saturation 98.6 H (94-97) % ABG Lactic Acid (0.5-1.6) mmol/L Potassium (3.5-5.1) mmol/L Carbon Dioxide (22-30) mmol/L BUN (9-20) mg/dL Creatinine (0.66-1.25) mg/dL Glucose (74-99) mg/dL POC Glucose (mg/dL) 265 H 255 H (75-99) mg/dL Plasma Lactic Acid Scott (0.7-2.0) mmol/L Calcium (8.4-10.2) mg/dL Phosphorus (2.5-4.5) mg/dL Total Bilirubin (0.2-1.3) mg/dL AST (17-59) U/L ALT (4-49) U/L C-Reactive Protein (<10.0) mg/L Total Protein (6.3-8.2) g/dL Albumin (3.5-5.0) g/dL Urine Protein (Negative) Urine Ketones (Negative) Urine Blood (Negative) Ur Leukocyte Esterase (Negative) Urine RBC (0-5) /hpf Urine WBC (0-5) /hpf Urine Mucus (None) /hpf 11/13/19 11/13/19 11/13/19 Range/Units 00:00 03:59 04:00 WBC 18.7 H (3.8-10.6) k/uL RBC 2.46 L (4.30-5.90) m/uL Hgb 7.5 L (13.0-17.5) gm/dL Hct 22.8 L (39.0-53.0) % Neutrophils # 15.2 H (1.3-7.7) k/uL Monocytes # 1.1 H (0-1.0) k/uL ABG pH (7.35-7.45) ABG pCO2 (35-45) mmHg ABG pO2 (83-108) mmHg ABG HCO3 (21-25) mmol/L ABG Total CO2 (19-24) mmol/L ABG O2 Saturation (94-97) % ABG Lactic Acid 2.3 H* (0.5-1.6) mmol/L Potassium (3.5-5.1) mmol/L Carbon Dioxide (22-30) mmol/L BUN (9-20) mg/dL Creatinine (0.66-1.25) mg/dL Glucose (74-99) mg/dL POC Glucose (mg/dL) 194 H (75-99) mg/dL Plasma Lactic Acid Scott (0.7-2.0) mmol/L Calcium (8.4-10.2) mg/dL Phosphorus (2.5-4.5) mg/dL Total Bilirubin (0.2-1.3) mg/dL AST (17-59) U/L ALT (4-49) U/L C-Reactive Protein (<10.0) mg/L Total Protein (6.3-8.2) g/dL Albumin (3.5-5.0) g/dL Urine Protein (Negative) Urine Ketones (Negative) Urine Blood (Negative) Ur Leukocyte Esterase (Negative) Urine RBC (0-5) /hpf Urine WBC (0-5) /hpf Urine Mucus (None) /hpf 11/13/19 11/13/19 11/13/19 Range/Units 04:00 04:38 06:56 WBC (3.8-10.6) k/uL RBC (4.30-5.90) m/uL Hgb (13.0-17.5) gm/dL Hct (39.0-53.0) % Neutrophils # (1.3-7.7) k/uL Monocytes # (0-1.0) k/uL ABG pH 7.53 H (7.35-7.45) ABG pCO2 31 L (35-45) mmHg ABG pO2 145 H (83-108) mmHg ABG HCO3 26 H (21-25) mmol/L ABG Total CO2 27 H (19-24) mmol/L ABG O2 Saturation 99.1 H (94-97) % ABG Lactic Acid (0.5-1.6) mmol/L Potassium 3.4 L (3.5-5.1) mmol/L Carbon Dioxide (22-30) mmol/L BUN 49 H (9-20) mg/dL Creatinine 1.44 H (0.66-1.25) mg/dL Glucose 164 H (74-99) mg/dL POC Glucose (mg/dL) (75-99) mg/dL Plasma Lactic Acid Scott (0.7-2.0) mmol/L Calcium 7.8 L (8.4-10.2) mg/dL Phosphorus (2.5-4.5) mg/dL Total Bilirubin 1.6 H (0.2-1.3) mg/dL AST 3117 H (17-59) U/L ALT 1895 H (4-49) U/L C-Reactive Protein (<10.0) mg/L Total Protein 4.6 L (6.3-8.2) g/dL Albumin 2.9 L (3.5-5.0) g/dL Urine Protein 1+ H (Negative) Urine Ketones Trace H (Negative) Urine Blood Large H (Negative) Ur Leukocyte Esterase Moderate H (Negative) Urine RBC >182 H (0-5) /hpf Urine WBC >182 H (0-5) /hpf Urine Mucus Rare H (None) /hpf 11/13/19 Range/Units 08:08 WBC (3.8-10.6) k/uL RBC (4.30-5.90) m/uL Hgb (13.0-17.5) gm/dL Hct (39.0-53.0) % Neutrophils # (1.3-7.7) k/uL Monocytes # (0-1.0) k/uL ABG pH (7.35-7.45) ABG pCO2 (35-45) mmHg ABG pO2 (83-108) mmHg ABG HCO3 (21-25) mmol/L ABG Total CO2 (19-24) mmol/L ABG O2 Saturation (94-97) % ABG Lactic Acid (0.5-1.6) mmol/L Potassium (3.5-5.1) mmol/L Carbon Dioxide (22-30) mmol/L BUN (9-20) mg/dL Creatinine (0.66-1.25) mg/dL Glucose (74-99) mg/dL POC Glucose (mg/dL) 119 H (75-99) mg/dL Plasma Lactic Acid Scott (0.7-2.0) mmol/L Calcium (8.4-10.2) mg/dL Phosphorus (2.5-4.5) mg/dL Total Bilirubin (0.2-1.3) mg/dL AST (17-59) U/L ALT (4-49) U/L C-Reactive Protein (<10.0) mg/L Total Protein (6.3-8.2) g/dL Albumin (3.5-5.0) g/dL Urine Protein (Negative) Urine Ketones (Negative) Urine Blood (Negative) Ur Leukocyte Esterase (Negative) Urine RBC (0-5) /hpf Urine WBC (0-5) /hpf Urine Mucus (None) /hpf Microbiology - Last 24 Hours (Table) 11/10/19 21:15 Blood Culture - Preliminary Blood No Growth after 48 hours - Imaging and Cardiology Chest x-ray: report reviewed, image reviewed Assessment and Plan Assessment: 1. Symptomatic multivessel coronary artery disease, recent non-STEMI, status post 5 vessel CABG 2. Leukocytosis, unknown origin, may be reactive 3. Previous stent placement to the proximal circumflex and ostial OM1 4. History of hypertension 5. History of hyperlipidemia 6. Chronic ongoing tobacco dependence 7. Mild COPD, preoperative FEV1 60% of predicted value 8. Right internal carotid artery stenosis 50-69% 9. History of peripheral arterial disease with previous arthrectomy and MERCH[employer]ISE PRESENTATION ASSOCIATE of the left SFA and atherectomy and [employer]CH[employer]ISE PRESENTATION ASSOCIATE of the left LATIN DANCE INSTRUCTOR with stenting of the left BRIAN 10. Poorly controlled diabetes mellitus type 2, admission hemoglobin A1c 9.1% 11. History of bladder cancer status post radiation, chemotherapy treatment and bladder surgery 12. Occasional marijuana use 13. Medication noncompliance 14. Family history of early onset coronary artery disease 15. Postoperative acute blood loss anemia, expected 16. Postoperative confusion, unexpected 17. Mild ISAAC, creatinine today 1.44 yesterday 1.17 18. New onset Afib with RVR, status post left atrial appendage ligation 19. New onset hematuria from patient pulling at newman catheter 20. Postoperative acute hypoxic respiratory failure requiring reintubation, secondary to metabolic acidosis and hypotension 21. Elevated transaminase levels, secondary to hypotension Plan: 1. Continue aspirin, Plavix and statin. 2. Continue amiodorone for atrial fibrillation prophylaxis. Parameters placed on the amiodarone per cardiology recommendations to hold for heart rate less melany n 70. 3. Continue to hold beta gaurav, Cardizem and Cozaar due to his bradycardia and hypotension. 4. Keep Newman catheter in place for accurate I&O. 5. Discontinue D5 W with 3 amps of sodium bicarb and 0.9% normal saline. Start D5 0.45 normal saline with 20 mEq of KCl at 80 mL per hour. 6. Mechanical ventilator management per pulmonary critical care medicine. 7. Wean Diprivan as tolerated. 8. Will monitor daily labs and chest x-rays. Elective replacement per protocol. 9. Continue Tylenol for pain management, hold narcotics and toradol. 10. GI/DVT prophylaxis. 11. Insulin management per primary care service. 12. 1 g of calcium gluconate 1 now IV piggyback. 13. Remove OG tube and place a Dobbhoff tube for tube feeding. Dietitian consulted for tube feeding recommendations. 14. Continue to avoid nephrotoxic agents. 15. Keep atrial and ventricular epicardial pacemaker wires in place and connected to a backup pacemaker generator with a VVI of 50. 16. Wean norepinephrine drip to keep blood pressure map greater than or equal to 70 mmHg. 17. More recommendations to follow based on patient's clinical course. Time with Patient: Greater than 30
[2019-11-13] MEDS: AMIODARONE 200 MG TAB PO SCH ×2 (09:42→20:47)
[2019-11-13] MEDS: ATORVASTATIN 40 MG TAB PO SCH (10:03)
[2019-11-13] MEDS: CHLORHEXIDINE GLUCONATE 15 ML CUP MUCOUS MEM SCH ×2 (10:03→20:50)
[2019-11-13] MEDS: ASPIRIN 325 MG TAB PO SCH (10:03)
[2019-11-13] MEDS: CLOPIDOGREL 75 MG TAB PO SCH (10:04)
--- NOTE | 2019-11-13 10:49 | P.PN ---
Progress Note - Text Progress Note Date: 11/13/19 The patient was intubated yesterday after he coded due to bradycardia. He is on the ventilator. His vital signs appear stable his morning. On exam abdomen is soft. There is no incision any significant tenderness. Patient remains with evidence of leukocytosis. White count was 18,000. His t ube feedings are being started today. He'll continue IV antibiotics and will be observed closely.
[2019-11-13 10:50] LABS: INR 1.5 (<1.2); Partial Thromboplastin Time 35.4 sec (22.0-30.0); Prothrombin Time 14.4 sec (9.0-12.0)
[2019-11-13 10:52] LABS: Glucose,Whole Blood 90 mg/dL (75-99)
[2019-11-13 12:20] LABS: Glucose,Whole Blood 102 mg/dL (75-99)
--- NOTE | 2019-11-13 13:00 | XR ---
EXAMINATION TYPE: XR KUB portable , ONE VIEW DATE OF EXAM ORDERED: 11/13/2019 HISTORY: dobhoff placement. COMPARISON: Previous study dated 06/19/2012. FINDINGS: Dobbhoff tube is in place. Its tip overlies the stomach on this single frontal projection. A battery pack projects over the lower abdomen. The abdominal gas pattern appears within normal limi ts. IMPRESSION: DOBBHOFF TUBE APPEARS TO BE WITHIN THE STOMACH.
[2019-11-13 14:12] LABS: Hemoglobin A1C 7.2 % (4.0-6.0)
--- NOTE | 2019-11-13 14:48 | P.PN ---
Subjective Progress Note Date: 11/13/19 This is a 64-year-old male patient with coronary artery disease, noncompliant to medication. The patient came in with subendocardial infarction and cardiac catheterization showed diffuse coronary artery disease with critical stenosis. The patient underwent coronary artery bypass today. The patient underwent bypass 5 with GR to LAD, radial artery graft to acute marginal, saphenous finger after 2 posterior lateral and sick ration saphenous vein to first and second diagonal performed on cardiac pulmonary bypass with beating heart. On 11/13/2019, the patient is being seen for a follow-up. The patient had significant events on the second day post extubation and all of these events were noted and I was able to participate in his care as the patient's condition got worse yesterday afternoon. The patient became progressively more tachypneic and his blood gases was repeated and it was noted that the patient had significant amount of metabolic acidosis with respiratory compensation. Ultimat tania, the patient became progressively more fatigued and went into respiratory failure. He became briefly hypoxic and had a bout of bradycardia and his blood pressure also subsequently dropped. At that point, the patient was started immediately on fluid resuscitation. Lasix was already discontinued. During the process, the patient received a total of 500 mL of albumin 5% 3, received bicarb infusion on multiple occasions total of 4 episodes of sodium bicarb was given for severe metabolic acidosis. Note that his lactic acid level was as high as 11. Following that, the patient was placed on a sodium bicarb infusion with 150 mEq of sodium bicarbonate there was running at 75 mL an hour. Lactic acid level came from 11.8 down to 1.5. He had to be intubated and placed on a mechanical ventilator. He was also requiring pressors with was running as high as 3 g per minute and currently is off the pressors. This morning, the patient is on a mechanical ventilator on assist control mode at the rate of 24 with a tidal volume of 450 and an FiO2 of 50% with a PEEP of 5. Urine output is order of 20-40 mL an hour. The blood gases from today showed a pH of 7.53 with a pCO2 of 31 and pO2 of 145. The chest x-ray shows some mild pulmonary vascular congestion and some subpulmonic pleural effusions bilaterally. The patient is well sedated with propofol and the patient is calm and comfortable. He is afebrile. As for the blood work, the white cell causative 18.7. The creatinine came up to 1.6 and currently is down to 1.4. The serum bicarbs at 28. Note that the chest tubes are already out for now. The patient has a Junior catheter in place and urine output has been approximately 240 mL's over the past 8 hours. The atrial and ventricular epicardial pacemaker wires remain in place. The bedside pacemaker generator is on a AAI mode with a rate of 70 and the underlying rhythm is sinus bradycardia. The patient has no other arrhythmias noted. Objective - Vital Signs Vital signs: Vital Signs Temp 99.0 F 11/13/19 12:00 Pulse 120 H 11/13/19 13:00 Resp 22 11/13/19 13:00 BP 94/50 11/13/19 13:00 Pulse Ox 97 11/13/19 13:00 Intake & Output 11/12/19 11/13/19 11/13/19 18:59 06:59 18:59 Intake Total 3108.530 2226.006 980.401 Output Total 207 575 327 Balance 2901.530 1651.006 653.401 Weight 84.4 kg 91.9 kg 91.9 kg Intake: IV 2176 0539 927 Albumin Human 25% 50 ml 50 In Empty Bag 1 bag @ 50 mls/hr IVPB ONCE ONE Rx#: [id number] Albumin Human 5% 250 ml 250 In Empty Bag 1 bag @ 250 mls/hr IVPB ONCE ONE Rx#: [id number] Calcium Gluconate 1 gm In 100 Sodium Chloride 0.9% 100 ml @ 100 mls/hr IVPB ONCE ONE Rx#:[id number] D5-0.45% NaCl with KCl 400 20Meq/l 1,000 ml @ 80 mls /hr IV .[id number] [facility] Rx#: [id number] Dextrose 5% in Water 1, 300 900 75 000 ml @ 75 mls/hr IV . [id number] [facility] with Sodium Bicarb (1 Meq/ml) 150 ml Rx#:[id number] Dextrose Amp 50 Lactated Ringers 1,000 ml 180 @ 20 mls/hr IV .Q24H [facility] Rx#:[id number] Normal Saline Pressure 6 69 42 Bag Piperacillin-Tazobactam 3 100 .375 gm In Sodium Chloride 0.9% 100 ml @ 25 mls/hr IVPB Q8HR [facility] Rx# :[id number] Potassium Chloride 10 meq 300 100 In Water For Injection 1 100ml.bag @ 100 mls/hr IVPB Q1H [facility] Rx#: [id number] Sodium Bicarbonate Amp 200 Sodium Chloride 0.9% 1, 90 360 210 000 ml @ 30 mls/hr IV . Q24H [facility] Rx#:[id number] Sodium Chloride 0.9% 1, 1000 000 ml @ 999 mls/hr IV . Q1H1M [facility] Rx#:[id number] Intake, IV Titration 532.530 547.006 53.401 Amount Albumin Human 5% 250 ml 500 In Empty Bag 1 bag @ 250 mls/hr IVPB ONCE ONE Rx#: [id number] Insulin Regular 100 unit 17.338 In Sodium Chloride 0.9% 100 ml @ Per Protocol IV .Q0M [facility] Rx#:[id number] Norepinephrine 4 mg In 284.690 19.215 Sodium Chloride 0.9% 250 ml @ 0.05 MCG/KG/MIN 16. 078 mls/hr IV .[id number] [facility] Rx#:[id number] Propofol 1,000 mg In 15.192 262.316 34.186 Empty Bag 1 bag @ Titrate IV .Q0M [facility] Rx#: [id number] Oral 400 Output: Chest Tube Drainage 10 Left Pleural Chest Tube 10 Right Pleural Chest Tube 0 Gastric Drainage 180 Urine 197 395 327 Other: Voiding Method Indwelling Catheter Indwelling Catheter Indwelling Catheter # Bowel Movements 1 ABP, PAP, CO, CI - Last Documented Arterial Blood Pressure 101/53 Pulmonary Artery Pressure 30/17 Cardiac Output 4.5 Cardiac Index 2.3 - Exam - Constitutional Constitutional Comment(s): Remains sedated with propofol drip at 40 mcg/kg/m. Remains intubated with oh chanical ventilator support. Currently not following any simple verbal commands but does withdraw from noxious stimuli. Oxygen saturation are 100% with the current mechanical ventilator settings. General appearance: Present: obese - EENT Eyes: Present: abnormal pupil (Right pupil slightly larger than his left pupil.) - Neck Details: Neck is supple, right IJ triple lumen central line in place. - Respiratory Details: Lung sounds essentially clear throughout, diminished to his bilateral bases. No wheezes, rhonchi or crackles. Respirations are symmetrical and nonlabored with mechanical ventilator support. Current mechanical ventilator settings are as follows: AC 24, TV 450, FiO2 50%, PEEP of 5. - Cardiovascular Details: Regular rhythm and rate. S1 and S2 present, negative for S3, gallop or murmur. Sternum is stable. Atrial and ventricular epicardial pacemaker wires in place and connected to the bedside pacemaker generator on an AAI of 70. Underlying rhythm is bradycardia with sinus arrhythmia heart rate in the 50s. Knee-high ELSIE hose and sequential compression devices in place to his bilateral lower extremities. Heart hugger is in place. +1 edema to his left forearm. - Gastrointestinal Gastrointestinal Comment(s): Abdomen is soft, and nondistended. Hypoactive bowel sounds present in all 4 abdominal quadrants. No guarding or rigidity. Bowel movement last night. OG tube in place to low intermittent wall suction. - Genitourinary Genitourinary Comment(s): Junior catheter remains in place for accurate I&O. Draining red turbid urine with 240 mL output the last 8 hours. - Integumentary Integumentary Comment(s): Skin is warm and dry. No clubbing or cyanosis is present. Midline sternal incision is clean, dry and approximated. No drainage or redness is present. Gauze dressing is clean, dry and in place. Left lower extremity EVH sites is clean, dry and approximated. No drainage or redness is present. Left forearm radial harvest sites clean, dry and approximated. No drainage or redness is present. - Neurologic Neurologic Comment(s): Remains sedated on propofol drip. - Musculoskeletal Musculoskeletal: Present: generalized weakness - Psychiatric Psychiatric Comment(s): Remains sedated on propofol drip. - Labs CBC & Chem 7: 11/13/19 04:00 11/13/19 10:50 Labs: Abnormal Lab Results - Last 24 Hours (Table) 11/12/19 11/12/19 11/12/19 Range/Units 14:40 14:40 14:40 WBC 17.7 H (3.8-10.6) k/uL RBC 2.51 L (4.30-5.90) m/uL Hgb 7.8 L D (13.0-17.5) gm/dL Hct 24.4 L (39.0-53.0) % Neutrophils # 14.6 H (1.3-7.7) k/uL Monocytes # (0-1.0) k/uL PT (9.0-12.0) sec INR (<1.2) APTT (22.0-30.0) sec ABG pH (7.35-7.45) ABG pCO2 (35-45) mmHg ABG pO2 (83-108) mmHg ABG HCO3 (21-25) mmol/L ABG Total CO2 (19-24) mmol/L ABG O2 Saturation (94-97) % ABG Lactic Acid (0.5-1.6) mmol/L Potassium 6.0 H (3.5-5.1) mmol/L Carbon Dioxide 19 L (22-30) mmol/L BUN 42 H (9-20) mg/dL Creatinine 1.80 H (0.66-1.25) mg/dL Glucose (74-99) mg/dL POC Glucose (mg/dL) (75-99) mg/dL Hemoglobin A1c (4.0-6.0) % Plasma Lactic Acid Scott 11.8 H* (0.7-2.0) mmol/L Calcium 7.8 L (8.4-10.2) mg/dL Phosphorus 6.7 H (2.5-4.5) mg/dL Total Bilirubin 1.8 H (0.2-1.3) mg/dL AST 535 H (17-59) U/L ALT 408 H (4-49) U/L C-Reactive Protein 78.9 H (<10.0) mg/L Total Protein 4.8 L (6.3-8.2) g/dL Albumin 3.1 L (3.5-5.0) g/dL Urine Protein (Negative) Urine Ketones (Negative) Urine Blood (Negative) Ur Leukocyte Esterase (Negative) Urine RBC (0-5) /hpf Urine WBC (0-5) /hpf Urine Mucus (None) /hpf 11/12/19 11/12/19 11/12/19 Range/Units 15:34 16:55 17:56 WBC (3.8-10.6) k/uL RBC (4.30-5.90) m/uL Hgb (13.0-17.5) gm/dL Hct (39.0-53.0) % Neutrophils # (1.3-7.7) k/uL Monocytes # (0-1.0) k/uL PT (9.0-12.0) sec INR (<1.2) APTT (22.0-30.0) sec ABG pH (7.35-7.45) ABG pCO2 24 L 32 L (35-45) mmHg ABG pO2 68 L 365 H (83-108) mmHg ABG HCO3 13 L 17 L (21-25) mmol/L ABG Total CO2 14 L 18 L (19-24) mmol/L ABG O2 Saturation 90.6 L 99.5 H (94-97) % ABG Lactic Acid (0.5-1.6) mmol/L Potassium (3.5-5.1) mmol/L Carbon Dioxide (22-30) mmol/L BUN (9-20) mg/dL Creatinine (0.66-1.25) mg/dL Glucose (74-99) mg/dL POC Glucose (mg/dL) 179 H (75-99) mg/dL Hemoglobin A1c (4.0-6.0) % Plasma Lactic Acid Scott (0.7-2.0) mmol/L Calcium (8.4-10.2) mg/dL Phosphorus (2.5-4.5) mg/dL Total Bilirubin (0.2-1.3) mg/dL AST (17-59) U/L ALT (4-49) U/L C-Reactive Protein (<10.0) mg/L Total Protein (6.3-8.2) g/dL Albumin (3.5-5.0) g/dL Urine Protein (Negative) Urine Ketones (Negative) Urine Blood (Negative) Ur Leukocyte Esterase (Negative) Urine RBC (0-5) /hpf Urine WBC (0-5) /hpf Urine Mucus (None) /hpf 11/12/19 11/12/19 11/12/19 Range/Units 18:20 18:20 18:25 WBC (3.8-10.6) k/uL RBC (4.30-5.90) m/uL Hgb (13.0-17.5) gm/dL Hct (39.0-53.0) % Neutrophils # (1.3-7.7) k/uL Monocytes # (0-1.0) k/uL PT (9.0-12.0) sec INR (<1.2) APTT (22.0-30.0) sec ABG pH (7.35-7.45) ABG pCO2 (35-45) mmHg ABG pO2 (83-108) mmHg ABG HCO3 (21-25) mmol/L ABG Total CO2 (19-24) mmol/L ABG O2 Saturation (94-97) % ABG Lactic Acid (0.5-1.6) mmol/L Potassium (3.5-5.1) mmol/L Carbon Dioxide (22-30) mmol/L BUN 48 H (9-20) mg/dL Creatinine 1.60 H (0.66-1.25) mg/dL Glucose 186 H (74-99) mg/dL POC Glucose (mg/dL) 213 H (75-99) mg/dL Hemoglobin A1c (4.0-6.0) % Plasma Lactic Acid Scott 5.0 H* (0.7-2.0) mmol/L Calcium 8.0 L (8.4-10.2) mg/dL Phosphorus (2.5-4.5) mg/dL Total Bilirubin 2.0 H (0.2-1.3) mg/dL AST 1991 H (17-59) U/L ALT 1403 H (4-49) U/L C-Reactive Protein (<10.0) mg/L Total Protein 4.4 L (6.3-8.2) g/dL Albumin 2.7 L (3.5-5.0) g/dL Urine Protein (Negative) Urine Ketones (Negative) Urine Blood (Negative) Ur Leukocyte Esterase (Negative) Urine RBC (0-5) /hpf Urine WBC (0-5) /hpf Urine Mucus (None) /hpf 11/12/19 11/12/19 11/13/19 Range/Units 18:43 20:37 00:00 WBC (3.8-10.6) k/uL RBC (4.30-5.90) m/uL Hgb (13.0-17.5) gm/dL Hct (39.0-53.0) % Neutrophils # (1.3-7.7) k/uL Monocytes # (0-1.0) k/uL PT (9.0-12.0) sec INR (<1.2) APTT (22.0-30.0) sec ABG pH 7.49 H (7.35-7.45) ABG pCO2 27 L (35-45) mmHg ABG pO2 117 H (83-108) mmHg ABG HCO3 (21-25) mmol/L ABG Total CO2 (19-24) mmol/L ABG O2 Saturation 98.6 H (94-97) % ABG Lactic Acid (0.5-1.6) mmol/L Potassium (3.5-5.1) mmol/L Carbon Dioxide (22-30) mmol/L BUN (9-20) mg/dL Creatinine (0.66-1.25) mg/dL Glucose (74-99) mg/dL POC Glucose (mg/dL) 265 H 255 H (75-99) mg/dL Hemoglobin A1c (4.0-6.0) % Plasma Lactic Acid Scott (0.7-2.0) mmol/L Calcium (8.4-10.2) mg/dL Phosphorus (2.5-4.5) mg/dL Total Bilirubin (0.2-1.3) mg/dL AST (17-59) U/L ALT (4-49) U/L C-Reactive Protein (<10.0) mg/L Total Protein (6.3-8.2) g/dL Albumin (3.5-5.0) g/dL Urine Protein (Negative) Urine Ketones (Negative) Urine Blood (Negative) Ur Leukocyte Esterase (Negative) Urine RBC (0-5) /hpf Urine WBC (0-5) /hpf Urine Mucus (None) /hpf 11/13/19 11/13/19 11/13/19 Range/Units 00:00 03:59 04:00 WBC (3.8-10.6) k/uL RBC (4.30-5.90) m/uL Hgb (13.0-17.5) gm/dL Hct (39.0-53.0) % Neutrophils # (1.3-7.7) k/uL Monocytes # (0-1.0) k/uL PT (9.0-12.0) sec INR (<1.2) APTT (22.0-30.0) sec ABG pH (7.35-7.45) ABG pCO2 (35-45) mmHg ABG pO2 (83-108) mmHg ABG HCO3 (21-25) mmol/L ABG Total CO2 (19-24) mmol/L ABG O2 Saturation (94-97) % ABG Lactic Acid 2.3 H* (0.5-1.6) mmol/L Potassium (3.5-5.1) mmol/L Carbon Dioxide (22-30) mmol/L BUN (9-20) mg/dL Creatinine (0.66-1.25) mg/dL Glucose (74-99) mg/dL POC Glucose (mg/dL) 194 H (75-99) mg/dL Hemoglobin A1c 7.2 H (4.0-6.0) % Plasma Lactic Acid Scott (0.7-2.0) mmol/L Calcium (8.4-10.2) mg/dL Phosphorus (2.5-4.5) mg/dL Total Bilirubin (0.2-1.3) mg/dL AST (17-59) U/L ALT (4-49) U/L C-Reactive Protein (<10.0) mg/L Total Protein (6.3-8.2) g/dL Albumin (3.5-5.0) g/dL Urine Protein (Negative) Urine Ketones (Negative) Urine Blood (Negative) Ur Leukocyte Esterase (Negative) Urine RBC (0-5) /hpf Urine WBC (0-5) /hpf Urine Mucus (None) /hpf 11/13/19 11/13/19 11/13/19 Range/Units 04:00 04:00 04:38 WBC 18.7 H (3.8-10.6) k/uL RBC 2.46 L (4.30-5.90) m/uL Hgb 7.5 L (13.0-17.5) gm/dL Hct 22.8 L (39.0-53.0) % Neutrophils # 15.2 H (1.3-7.7) k/uL Monocytes # 1.1 H (0-1.0) k/uL PT (9.0-12.0) sec INR (<1.2) APTT (22.0-30.0) sec ABG pH 7.53 H (7.35-7.45) ABG pCO2 31 L (35-45) mmHg ABG pO2 145 H (83-108) mmHg ABG HCO3 26 H (21-25) mmol/L ABG Total CO2 27 H (19-24) mmol/L ABG O2 Saturation 99.1 H (94-97) % ABG Lactic Acid (0.5-1.6) mmol/L Potassium 3.4 L (3.5-5.1) mmol/L Carbon Dioxide (22-30) mmol/L BUN 49 H (9-20) mg/dL Creatinine 1.44 H (0.66-1.25) mg/dL Glucose 164 H (74-99) mg/dL POC Glucose (mg/dL) (75-99) mg/dL Hemoglobin A1c (4.0-6.0) % Plasma Lactic Acid Scott (0.7-2.0) mmol/L Calcium 7.8 L (8.4-10.2) mg/dL Phosphorus (2.5-4.5) mg/dL Total Bilirubin 1.6 H (0.2-1.3) mg/dL AST 3117 H (17-59) U/L ALT 1895 H (4-49) U/L C-Reactive Protein (<10.0) mg/L Total Protein 4.6 L (6.3-8.2) g/dL Albumin 2.9 L (3.5-5.0) g/dL Urine Protein (Negative) Urine Ketones (Negative) Urine Blood (Negative) Ur Leukocyte Esterase (Negative) Urine RBC (0-5) /hpf Urine WBC (0-5) /hpf Urine Mucus (None) /hpf 11/13/19 11/13/19 11/13/19 Range/Units 06:56 08:08 10:11 WBC (3.8-10.6) k/uL RBC (4.30-5.90) m/uL Hgb (13.0-17.5) gm/dL Hct (39.0-53.0) % Neutrophils # (1.3-7.7) k/uL Monocytes # (0-1.0) k/uL PT 14.4 H (9.0-12.0) sec INR 1.5 H (<1.2) APTT 35.4 H (22.0-30.0) sec ABG pH (7.35-7.45) ABG pCO2 (35-45) mmHg ABG pO2 (83-108) mmHg ABG HCO3 (21-25) mmol/L ABG Total CO2 (19-24) mmol/L ABG O2 Saturation (94-97) % ABG Lactic Acid (0.5-1.6) mmol/L Potassium (3.5-5.1) mmol/L Carbon Dioxide (22-30) mmol/L BUN (9-20) mg/dL Creatinine (0.66-1.25) mg/dL Glucose (74-99) mg/dL POC Glucose (mg/dL) 119 H (75-99) mg/dL Hemoglobin A1c (4.0-6.0) % Plasma Lactic Acid Scott (0.7-2.0) mmol/L Calcium (8.4-10.2) mg/dL Phosphorus (2.5-4.5) mg/dL Total Bilirubin (0.2-1.3) mg/dL AST (17-59) U/L ALT (4-49) U/L C-Reactive Protein (<10.0) mg/L Total Protein (6.3-8.2) g/dL Albumin (3.5-5.0) g/dL Urine Protein 1+ H (Negative) Urine Ketones Trace H (Negative) Urine Blood Large H (Negative) Ur Leukocyte Esterase Moderate H (Negative) Urine RBC >182 H (0-5) /hpf Urine WBC >182 H (0-5) /hpf Urine Mucus Rare H (None) /hpf 11/13/19 Range/Units 12:18 WBC (3.8-10.6) k/uL RBC (4.30-5.90) m/uL Hgb (13.0-17.5) gm/dL Hct (39.0-53.0) % Neutrophils # (1.3-7.7) k/uL Monocytes # (0-1.0) k/uL PT (9.0-12.0) sec INR (<1.2) APTT (22.0-30.0) sec ABG pH (7.35-7.45) ABG pCO2 (35-45) mmHg ABG pO2 (83-108) mmHg ABG HCO3 (21-25) mmol/L ABG Total CO2 (19-24) mmol/L ABG O2 Saturation (94-97) % ABG Lactic Acid (0.5-1.6) mmol/L Potassium (3.5-5.1) mmol/L Carbon Dioxide (22-30) mmol/L BUN (9-20) mg/dL Creatinine (0.66-1.25) mg/dL Glucose (74-99) mg/dL POC Glucose (mg/dL) 102 H (75-99) mg/dL Hemoglobin A1c (4.0-6.0) % Plasma Lactic Acid Scott (0.7-2.0) mmol/L Calcium (8.4-10.2) mg/dL Phosphorus (2.5-4.5) mg/dL Total Bilirubin (0.2-1.3) mg/dL AST (17-59) U/L ALT (4-49) U/L C-Reactive Protein (<10.0) mg/L Total Protein (6.3-8.2) g/dL Albumin (3.5-5.0) g/dL Urine Protein (Negative) Urine Ketones (Negative) Urine Blood (Negative) Ur Leukocyte Esterase (Negative) Urine RBC (0-5) /hpf Urine WBC (0-5) /hpf Urine Mucus (None) /hpf Microbiology - Last 24 Hours (Table) 11/10/19 21:15 Blood Culture - Preliminary Blood No Growth after 48 hours Assessment and Plan Plan: 1 coronary artery disease without stable angina and non-STEMI. The patient underwent five-vessel bypass surgery. CABG 5 with GR to LAD, left radial artery to obtuse marginal, saphenous vein to posterior lateral, sequential saphenous vein to first and second diagonal performed on cardiopulmonary bypass with beating heart. Epi-aortic ultrasound and ligation of left atrial appendage with Ben clip. The patient is postop day #5 2 post thoracotomy, currently intubated on mechanical ventilator, and the patient was extubated . Subsequently, the patient had to be reintubated on 11/12/2019 because of hypotension, metabolic acidosis, and shock state. The patient was resuscitated back with IV fluids and a metabolic acidosis improving and the lactic acid levels have improved considerably. The patient is currently on no pressors. Nevertheless, the patient remains intubated on a mechanical ventilator. 3 altered mental status, consider underlying CVA 4 COPD with an FEV1 of 60% of predicted at baseline 5 new-onset atrial fibrillation with rapid ventricular response currently on amiodarone, expected outcome related to cardiac surgery , current rhythm is s inus bradycardia and the patient has a backup pacemaker a remote at the rate of 70. 6 Peripheral vascular disease with prior peripheral stent placements 7 Right carotid artery stenosis at 50-69% 7 History of marijuana use 8 Diabetes mellitus, type II, insulin drip for blood sugar control 9 History of bladder cancer status post radiation/chemotherapy and subsequent surgery 10 History of noncompliance 11 acute kidney injury in the creatinine is improving for now 12 history of marijuana smoking 13 history of drug noncompliance 14 abnormal LFTs secondary to hypotension, anticipate improvement. Plan Continue vent support. I would suggest respiratory 16 This continue the bicarb infusion Patient is currently off pressors Continue aspirin and Plavix and statins Put the patient D5 half-normal saline at the rate of 80 mL an hour Insulin for blood sugar control Keep the patient sedated with propofol Initiate enteral feeding for nutritional support Monitor renal function We'll keep him intubated for next 24 hours and will continue to follow. Condition is critical and this evaluation was on a more than 30 minutes. Case was discussed with the cardiothoracic team. Time with Patient: Greater than 30
[2019-11-13 15:53] LABS: Glucose,Whole Blood 134 mg/dL (75-99)
--- NOTE | 2019-11-13 15:57 | PN ---
PROGRESS NOTE This gentleman has developed bradycardia, hypotension, required to be intubated yesterday. I am recommending that we hold amiodarone. He was being paced atrially at a rate of 70. His underlying rhythm is sinus at 64 beats per minute. Advised to hold the pacing, continue his own rhythm. Patient's urine output is fairly decent. His bradycardia seems to have resolved. We will, however, hold amiodarone for the time being. He is maintaining sinus rhythm. He is status post bypass surgery with significant confusion but no motor deficits. Now developed bradycardia and hypotension which have also resolved. Prognosis remains guarded. Possibility of sepsis is being entertained. Vitals are stable at this time. S1-S2 heard normally but distant. Lungs reveal diminished air entry. Abdomen is soft. Lower extremities reveal diminished pulses. Central nervous system assessment was not performed. RECOMMENDATION: I would recommend that we discontinue the atrial pacing, let him have his own sinus rhythm at 64, and blood pressure is fairly decent. Continue all the other supportive care as advised by Dr. Hewitt. MMNICKL / IJN: [id number] /
--- NOTE | 2019-11-13 15:58 | P.PN ---
Subjective Patient is a [id number] male was recently discharged from the hospital came back in with the chest pain pressure-like sensation lasted for a few hours nonexertional did have elevated troponins. Patient had a triple-vessel disease patient is scheduled to undergo coronary artery bypass grafting on Friday went home started smoking again started having chest pain. Chest x-ray was read as pulmonary edema. It is not elevated patient clinically doesn't have any JVD or crackles or wheezing. 11/09/2019 Patient is status post CABG he was extubated the last night. Patient is presently on norepinephrine, milrinone, IV insulin. Patient still has a [place]- Juni in place most of the management is being done by cardiac thoracic surgery patient was bit confused earlier today doing well now. 11/10/2019 Patient is still confused as per the family his confusion is better patient is a low-grade fever probably because of atelectasis a lot and blood cultures. Patient received Lasix for pulmonary edema, patient's mediastinal chest use with remote patient still has left pleural chest tubes 11/11/2019 Patient is seen and evaluated and follow-up currently remains in the ICU and is being closely monitored. Since hemoglobin was found to be 6.7 this morning and is currently receiving 1 unit of PRBCs. Potassium is 4.4, creatinine is 1.09, magnesium is 2.3. Patient went into atrial fibrillation with RVR and is being maintained on amiodarone drip and will transition to oral medications. Patient continues to have chest tubes along with indwelling Junior catheter which shows some hematuria as patient pulled it out. Patient has been afebrile with intermittent low-grade temps 99.7F and white count today is 14.1. Patient remains on an insulin drip and will continue at this time. Will continue to follow along closely with cardio thoracic surgery. 11/12/2019 Patient is seen and evaluated and follow-up continues to be closely monitored in the ICU. Patient is currently restless and seems to be having some shortness of breath. Patient is placed on nasal cannula although was mouth breathing and is currently on 5 L of oxygen. Patient was on insulin drip which has been discontinued and patient will be continued on sliding scale as patient now has a diet ordered although isn't eating very much. Patient continues to be confused and not following commands. Patient had a chest x-ray today status post chest tube removal showing no evidence of residual pneumothorax. Patient underwent brain CT yesterday showing patchy periventricular and deep white matter changes, left greater than right that have progressed since 01/19/2019 with demyelinating disease or other infectious inflammatory etiologies are possible, and no acute intracranial hemorrhage or midline shift noted. 11/13/2019 Patient became to Make and found to have metabolic acidosis with respiratory compensation progressively got fatigued event into respiratory failure subsequently intubated patient received the bicarbonate infusion for severe metabolic acidosis and patient had lactic acidosis with the lactic acid going up to 11 which came down to 1.5 patient is also started on pressor support with Levophed on mechanical ventilator with tidal volume of 450 set up respiratory of 24 FiO2 of 50% PEEP of 5 urine output is fairly. Chest x-ray showing mild pulmonary vascular congestion with the pleural effusions bilaterally Review of systems: Unable to obtain as patient is tired and sleepy All inpatient medications were reviewed and appropriate changes in these medications as dictated in the interval history and assessment and plan. Objective - Vital Signs Vital signs: Vital Signs Temp 99.0 F 11/13/19 12:00 Pulse 120 H 11/13/19 13:00 Resp 22 11/13/19 13:00 BP 94/50 11/13/19 13:00 Pulse Ox 97 11/13/19 13:00 Intake & Output 11/12/19 11/13/19 11/13/19 18:59 06:59 18:59 Intake Total 3108.530 2226.006 1252.727 Output Total 207 575 357 Balance 2901.530 1651.006 895.727 Weight 84.4 kg 91.9 kg 91.9 kg Intake: IV 2176 1679 1043 Albumin Human 25% 50 ml 50 In Empty Bag 1 bag @ 50 mls/hr IVPB ONCE ONE Rx#: [id number] Albumin Human 5% 250 ml 250 In Empty Bag 1 bag @ 250 mls/hr IVPB ONCE ONE Rx#: [id number] Calcium Gluconate 1 gm In 100 Sodium Chloride 0.9% 100 ml @ 100 mls/hr IVPB ONCE ONE Rx#:[id number] D5-0.45% NaCl with KCl 480 20Meq/l 1,000 ml @ 80 mls /hr IV .[id number] [facility] Rx#: [id number] Dextrose 5% in Water 1, 300 900 75 000 ml @ 75 mls/hr IV . [id number] [facility] with Sodium Bicarb (1 Meq/ml) 150 ml Rx#:[id number] Dextrose Amp 50 Lactated Ringers 1,000 ml 180 @ 20 mls/hr IV .Q24H [facility] Rx#:[id number] Normal Saline Pressure 6 69 48 Bag Piperacillin-Tazobactam 3 100 .375 gm In Sodium Chloride 0.9% 100 ml @ 25 mls/hr IVPB Q8HR [facility] Rx# :[id number] Potassium Chloride 10 meq 300 100 In Water For Injection 1 100ml.bag @ 100 mls/hr IVPB Q1H [facility] Rx#: [id number] Sodium Bicarbonate Amp 200 Sodium Chloride 0.9% 1, 90 360 240 000 ml @ 30 mls/hr IV . Q24H [facility] Rx#:[id number] Sodium Chloride 0.9% 1, 1000 000 ml @ 999 mls/hr IV . Q1H1M [facility] Rx#:[id number] Intake, IV Titration 532.530 547.006 209.727 Amount Albumin Human 5% 250 ml 500 In Empty Bag 1 bag @ 250 mls/hr IVPB ONCE ONE Rx#: [id number] Insulin Regular 100 unit 17.338 In Sodium Chloride 0.9% 100 ml @ Per Protocol IV .Q0M [facility] Rx#:[id number] Norepinephrine 4 mg In 284.690 75.541 Sodium Chloride 0.9% 250 ml @ 0.05 MCG/KG/MIN 16. 078 mls/hr IV .[id number] [facility] Rx#:[id number] Potassium Chloride 20 meq 100 In Water For Injection 1 100ml.bag @ 50 mls/hr IVPB Q2H [facility] Rx#: [id number] Propofol 1,000 mg In 15.192 262.316 34.186 Empty Bag 1 bag @ Titrate IV .Q0M [facility] Rx#: [id number] Oral 400 Output: Chest Tube Drainage 10 Left Pleural Chest Tube 10 Right Pleural Chest Tube 0 Gastric Drainage 180 Urine 197 395 357 Other: Voiding Method Indwelling Catheter Indwelling Catheter Indwelling Catheter # Bowel Movements 1 ABP, PAP, CO, CI - Last Documented Arterial Blood Pressure 101/53 Pulmonary Artery Pressure 30/17 Cardiac Output 4.5 Cardiac Index 2.3 - Exam PHYSICAL EXAMINATION: GENERAL: She and is intubated sedated HEENT: Pupils are round and equally reacting to light. EOMI. No scleral icterus. No conjunctival pallor. Normocephalic, atraumatic. No pharyngeal erythema. No thyromegaly. As a triple lumen IJ CARDIOVASCULAR: S1 and S2 present. No murmurs, rubs, or gallops. PULMONARY: Chest is clear to auscultation, no wheezing or crackles. ABDOMEN: Soft, nontender, nondistended, normoactive bowel sounds. No palpable organomegaly. MUSCULOSKELETAL: No joint swelling or deformity. EXTREMITIES: No cyanosis, clubbing, or pedal edema. NEUROLOGICAL: He is sedated on propofol drip SKIN: No rashes. - Labs CBC & Chem 7: 11/13/19 04:00 11/13/19 10:50 Labs: Abnormal Lab Results - Last 24 Hours (Table) 11/12/19 11/12/19 11/12/19 Range/Units 16:55 17:56 18:20 WBC (3.8-10.6) k/uL RBC (4.30-5.90) m/uL Hgb (13.0-17.5) gm/dL Hct (39.0-53.0) % Neutrophils # (1.3-7.7) k/uL Monocytes # (0-1.0) k/uL PT (9.0-12.0) sec INR (<1.2) APTT (22.0-30.0) sec ABG pH (7.35-7.45) ABG pCO2 32 L (35-45) mmHg ABG pO2 365 H (83-108) mmHg ABG HCO3 17 L (21-25) mmol/L ABG Total CO2 18 L (19-24) mmol/L ABG O2 Saturation 99.5 H (94-97) % ABG Lactic Acid (0.5-1.6) mmol/L Potassium (3.5-5.1) mmol/L BUN 48 H (9-20) mg/dL Creatinine 1.60 H (0.66-1.25) mg/dL Glucose 186 H (74-99) mg/dL POC Glucose (mg/dL) 179 H (75-99) mg/dL Hemoglobin A1c (4.0-6.0) % Plasma Lactic Acid Scott (0.7-2.0) mmol/L Calcium 8.0 L (8.4-10.2) mg/dL Total Bilirubin 2.0 H (0.2-1.3) mg/dL AST 1991 H (17-59) U/L ALT 1403 H (4-49) U/L Total Protein 4.4 L (6.3-8.2) g/dL Albumin 2.7 L (3.5-5.0) g/dL Urine Protein (Negative) Urine Ketones (Negative) Urine Blood (Negative) Ur Leukocyte Esterase (Negative) Urine RBC (0-5) /hpf Urine WBC (0-5) /hpf Urine Mucus (None) /hpf 11/12/19 11/12/19 11/12/19 Range/Units 18:20 18:25 18:43 WBC (3.8-10.6) k/uL RBC (4.30-5.90) m/uL Hgb (13.0-17.5) gm/dL Hct (39.0-53.0) % Neutrophils # (1.3-7.7) k/uL Monocytes # (0-1.0) k/uL PT (9.0-12.0) sec INR (<1.2) APTT (22.0-30.0) sec ABG pH 7.49 H (7.35-7.45) ABG pCO2 27 L (35-45) mmHg ABG pO2 117 H (83-108) mmHg ABG HCO3 (21-25) mmol/L ABG Total CO2 (19-24) mmol/L ABG O2 Saturation 98.6 H (94-97) % ABG Lactic Acid (0.5-1.6) mmol/L Potassium (3.5-5.1) mmol/L BUN (9-20) mg/dL Creatinine (0.66-1.25) mg/dL Glucose (74-99) mg/dL POC Glucose (mg/dL) 213 H (75-99) mg/dL Hemoglobin A1c (4.0-6.0) % Plasma Lactic Acid Scott 5.0 H* (0.7-2.0) mmol/L Calcium (8.4-10.2) mg/dL Total Bilirubin (0.2-1.3) mg/dL AST (17-59) U/L ALT (4-49) U/L Total Protein (6.3-8.2) g/dL Albumin (3.5-5.0) g/dL Urine Protein (Negative) Urine Ketones (Negative) Urine Blood (Negative) Ur Leukocyte Esterase (Negative) Urine RBC (0-5) /hpf Urine WBC (0-5) /hpf Urine Mucus (None) /hpf 11/12/19 11/13/19 11/13/19 Range/Units 20:37 00:00 00:00 WBC (3.8-10.6) k/uL RBC (4.30-5.90) m/uL Hgb (13.0-17.5) gm/dL Hct (39.0-53.0) % Neutrophils # (1.3-7.7) k/uL Monocytes # (0-1.0) k/uL PT (9.0-12.0) sec INR (<1.2) APTT (22.0-30.0) sec ABG pH (7.35-7.45) ABG pCO2 (35-45) mmHg ABG pO2 (83-108) mmHg ABG HCO3 (21-25) mmol/L ABG Total CO2 (19-24) mmol/L ABG O2 Saturation (94-97) % ABG Lactic Acid 2.3 H* (0.5-1.6) mmol/L Potassium (3.5-5.1) mmol/L BUN (9-20) mg/dL Creatinine (0.66-1.25) mg/dL Glucose (74-99) mg/dL POC Glucose (mg/dL) 265 H 255 H (75-99) mg/dL Hemoglobin A1c (4.0-6.0) % Plasma Lactic Acid Scott (0.7-2.0) mmol/L Calcium (8.4-10.2) mg/dL Total Bilirubin (0.2-1.3) mg/dL AST (17-59) U/L ALT (4-49) U/L Total Protein (6.3-8.2) g/dL Albumin (3.5-5.0) g/dL Urine Protein (Negative) Urine Ketones (Negative) Urine Blood (Negative) Ur Leukocyte Esterase (Negative) Urine RBC (0-5) /hpf Urine WBC (0-5) /hpf Urine Mucus (None) /hpf 11/13/19 11/13/19 11/13/19 Range/Units 03:59 04:00 04:00 WBC 18.7 H (3.8-10.6) k/uL RBC 2.46 L (4.30-5.90) m/uL Hgb 7.5 L (13.0-17.5) gm/dL Hct 22.8 L (39.0-53.0) % Neutrophils # 15.2 H (1.3-7.7) k/uL Monocytes # 1.1 H (0-1.0) k/uL PT (9.0-12.0) sec INR (<1.2) APTT (22.0-30.0) sec ABG pH (7.35-7.45) ABG pCO2 (35-45) mmHg ABG pO2 (83-108) mmHg ABG HCO3 (21-25) mmol/L ABG Total CO2 (19-24) mmol/L ABG O2 Saturation (94-97) % ABG Lactic Acid (0.5-1.6) mmol/L Potassium (3.5-5.1) mmol/L BUN (9-20) mg/dL Creatinine (0.66-1.25) mg/dL Glucose (74-99) mg/dL POC Glucose (mg/dL) 194 H (75-99) mg/dL Hemoglobin A1c 7.2 H (4.0-6.0) % Plasma Lactic Acid Scott (0.7-2.0) mmol/L Calcium (8.4-10.2) mg/dL Total Bilirubin (0.2-1.3) mg/dL AST (17-59) U/L ALT (4-49) U/L Total Protein (6.3-8.2) g/dL Albumin (3.5-5.0) g/dL Urine Protein (Negative) Urine Ketones (Negative) Urine Blood (Negative) Ur Leukocyte Esterase (Negative) Urine RBC (0-5) /hpf Urine WBC (0-5) /hpf Urine Mucus (None) /hpf 11/13/19 11/13/19 11/13/19 Range/Units 04:00 04:38 06:56 WBC (3.8-10.6) k/uL RBC (4.30-5.90) m/uL Hgb (13.0-17.5) gm/dL Hct (39.0-53.0) % Neutrophils # (1.3-7.7) k/uL Monocytes # (0-1.0) k/uL PT (9.0-12.0) sec INR (<1.2) APTT (22.0-30.0) sec ABG pH 7.53 H (7.35-7.45) ABG pCO2 31 L (35-45) mmHg ABG pO2 145 H (83-108) mmHg ABG HCO3 26 H (21-25) mmol/L ABG Total CO2 27 H (19-24) mmol/L ABG O2 Saturation 99.1 H (94-97) % ABG Lactic Acid (0.5-1.6) mmol/L Potassium 3.4 L (3.5-5.1) mmol/L BUN 49 H (9-20) mg/dL Creatinine 1.44 H (0.66-1.25) mg/dL Glucose 164 H (74-99) mg/dL POC Glucose (mg/dL) (75-99) mg/dL Hemoglobin A1c (4.0-6.0) % Plasma Lactic Acid Scott (0.7-2.0) mmol/L Calcium 7.8 L (8.4-10.2) mg/dL Total Bilirubin 1.6 H (0.2-1.3) mg/dL AST 3117 H (17-59) U/L ALT 1895 H (4-49) U/L Total Protein 4.6 L (6.3-8.2) g/dL Albumin 2.9 L (3.5-5.0) g/dL Urine Protein 1+ H (Negative) Urine Ketones Trace H (Negative) Urine Blood Large H (Negative) Ur Leukocyte Esterase Moderate H (Negative) Urine RBC >182 H (0-5) /hpf Urine WBC >182 H (0-5) /hpf Urine Mucus Rare H (None) /hpf 11/13/19 11/13/19 11/13/19 Range/Units 08:08 10:11 12:18 WBC (3.8-10.6) k/uL RBC (4.30-5.90) m/uL Hgb (13.0-17.5) gm/dL Hct (39.0-53.0) % Neutrophils # (1.3-7.7) k/uL Monocytes # (0-1.0) k/uL PT 14.4 H (9.0-12.0) sec INR 1.5 H (<1.2) APTT 35.4 H (22.0-30.0) sec ABG pH (7.35-7.45) ABG pCO2 (35-45) mmHg ABG pO2 (83-108) mmHg ABG HCO3 (21-25) mmol/L ABG Total CO2 (19-24) mmol/L ABG O2 Saturation (94-97) % ABG Lactic Acid (0.5-1.6) mmol/L Potassium (3.5-5.1) mmol/L BUN (9-20) mg/dL Creatinine (0.66-1.25) mg/dL Glucose (74-99) mg/dL POC Glucose (mg/dL) 119 H 102 H (75-99) mg/dL Hemoglobin A1c (4.0-6.0) % Plasma Lactic Acid Scott (0.7-2.0) mmol/L Calcium (8.4-10.2) mg/dL Total Bilirubin (0.2-1.3) mg/dL AST (17-59) U/L ALT (4-49) U/L Total Protein (6.3-8.2) g/dL Albumin (3.5-5.0) g/dL Urine Protein (Negative) Urine Ketones (Negative) Urine Blood (Negative) Ur Leukocyte Esterase (Negative) Urine RBC (0-5) /hpf Urine WBC (0-5) /hpf Urine Mucus (None) /hpf Microbiology - Last 24 Hours (Table) 11/10/19 21:15 Blood Culture - Preliminary Blood No Growth after 48 hours Assessment and Plan Plan: Assessment and Plan Assessment: -Acute non-ST elevation myocardial infarction: Coronary artery diseasepatient is status post five-vessel coronary artery bypass grafting, patient is presently on aspirin and statin beta gaurav. -Acute respiratory failure hypoxic, patient had metabolic acidosis probably due to decreased organ perfusion presently intubated and sedated -New onset paroxysmal atrial fibrillation with RVR, resume rate controlled switched to oral amiodarone and oral Cardizem -Leukocytosis reactive because of patient's lactic is doses and her overall clinical condition patient is on empiric antibiotic with Zosyn -Possible congestive heart failure chronic diastolic dysfunction with acute exacerbation -Low-grade fever probably because of atelectasis; patient to continue with incentive spirometry at least 10 times every hour while awake, improving -Hypertension -Hyperlipidemia -Type 2 diabetes mellitus, and is on sliding scale every 6 hourly -COPD without any acute exacerbation -Severe peripheral vascular disease -History of bladder cancer status post chemotherapy and radiation - nicotine use and marijuana use
[2019-11-13 19:58] LABS: Glucose,Whole Blood 139 mg/dL (75-99)
[2019-11-13] MEDS: SENNOSIDES-DOCUSATE SODIUM 1 EACH TAB PO SCH (20:50)
[2019-11-14] MEDS: INSULIN ASPART (NovoLOG) 100 UNIT/ML VIAL SQ SCH ×6 (00:09→20:53)
[2019-11-14 00:10] LABS: Glucose,Whole Blood 167 mg/dL (75-99)
[2019-11-14 04:22] LABS: ABG Base Excess 0.4 mmol/L; ABG HCO3 24 mmol/L (21-25); ABG Oxygen Saturation 98.4 % (94-97); ABG PCO2 32 mmHg (35-45); ABG PH 7.48 (7.35-7.45); ABG PO2 114 mmHg (83-108); ABG TCO2 25 mmol/L (19-24)
[2019-11-14 04:26] LABS: Glucose,Whole Blood 195 mg/dL (75-99)
[2019-11-14 04:32] LABS: Basophils # (A) 0.1 k/uL (0-0.2); Basophils % (A) 0 %; Eosinophils # (A) 1.4 k/uL (0-0.7); Eosinophils % (A) 7 %; HCT 23.3 % (39.0-53.0); HGB 7.7 gm/dL (13.0-17.5); Lymphocytes # (A) 1.6 k/uL (1.0-4.8); Lymphocytes % (A) 9 %; MCH 31.4 pg (25.0-35.0); MCHC 32.9 g/dL (31.0-37.0); MCV 95.5 fL (80.0-100.0); Mean Platelet Volume 9.7; Monocytes # (A) 1.5 k/uL (0-1.0); Monocytes % (A) 8 %; Neutrophils # (A) 13.9 k/uL (1.3-7.7); Neutrophils % (A) 72 %; Platelet Count 199 k/uL (150-450); RBC 2.44 m/uL (4.30-5.90); WBC 19.2 k/uL (3.8-10.6)
[2019-11-14 04:43] LABS: Allen Test Performed? no
[2019-11-14 04:49] LABS: Albumin 2.4 g/dL (3.5-5.0); Calcium 7.4 mg/dL (8.4-10.2); Potassium 3.9 mmol/L (3.5-5.1); Total Bilirubin 1.3 mg/dL (0.2-1.3); Total Protein 4.3 g/dL (6.3-8.2)
[2019-11-14] MEDS: PANTOPRAZOLE 40 MG TABLET PO SCH (05:32)
[2019-11-14] MEDS: HEPARIN SODIUM,PORCINE 5,000 UNIT/ML 1 ML VIAL SQ SCH ×3 (05:32→22:51)
[2019-11-14] MEDS: FERROUS SULFATE 325 MG TAB PO SCH ×2 (05:33→17:05)
[2019-11-14] MEDS: ASCORBIC ACID 500 MG TAB PO SCH ×2 (05:34→17:13)
[2019-11-14] MEDS ORDERED: POTASSIUM BICARBONATE/CIT AC 20 MEQ TABLET.EFF NG-TUBE SCH (06:00)
[2019-11-14] MEDS ORDERED: CALCIUM CHLORIDE 100 MG/ML 10 ML SYRINGE IVP ONE (06:15)
[2019-11-14] MEDS ORDERED: ALBUMIN HUMAN 5% 250 ML in EMPTY BAG 1 BAG IVPB ONE (06:15)
--- NOTE | 2019-11-14 06:56 | XR ---
EXAMINATION TYPE: XR chest 1V portable DATE OF EXAM: 11/14/2019 HISTORY: Tube placement. REFERENCE: Previous study dated 11/13/2019. FINDINGS: The patient's ET tube, NG tube and right internal jugular catheter remain in place, unchang ed in appearance. There has been a midline sternotomy. There continues be vascular congestion. There are small, bilateral effusions. There is interstitial c hange consistent with pulmonary edema. IMPRESSION: CONTINUING CHANGES OF PULMONARY EDEMA LIKELY ON THE BASIS OF HEART FAILURE.
[2019-11-14] MEDS: IPRATROPIUM-ALBUTEROL 3 ML NEB INHALATION SCH ×4 (07:41→20:04)
[2019-11-14] MEDS: D5-0.45% NACL WITH KCL 20MEQ/L 1,000 ML IV SCH (08:20)
[2019-11-14 08:25] LABS: Glucose,Whole Blood 205 mg/dL (75-99)
[2019-11-14] MEDS ORDERED: VANCOMYCIN IV PER PHARMACY 1 EACH MISC MISCELLANE PRN (08:38)
[2019-11-14] MEDS ORDERED: FUROSEMIDE 10 MG/ML 4 ML VIAL IV STA (08:47)
[2019-11-14] MEDS: ASPIRIN 325 MG TAB PO SCH (09:21)
[2019-11-14] MEDS: ATORVASTATIN 40 MG TAB PO SCH (09:21)
[2019-11-14] MEDS: CLOPIDOGREL 75 MG TAB PO SCH (09:21)
[2019-11-14] MEDS: PIPERACILLIN-TAZOBACTAM 3.375 GM in SODIUM CHLORIDE 0.9% 100 ML IVPB SCH ×3 (09:22→23:11)
[2019-11-14] MEDS: AMIODARONE 200 MG TAB PO SCH ×2 (09:23→20:53)
[2019-11-14] MEDS: CHLORHEXIDINE GLUCONATE 15 ML CUP MUCOUS MEM SCH ×2 (09:29→20:53)
--- NOTE | 2019-11-14 09:31 | P.PN ---
Subjective Progress Note Date: 11/14/19 Principal diagnosis: Symptomatic multivessel coronary artery disease, unstable angina, status post subendocardial myocardial infarction. 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 POD #6 coronary artery bypass grafting 5 with GR to the LAD, left radial artery to the obtuse marginal coronary artery, a reverse greater saphenous vein to the posterior lateral coronary artery, sequential saphenous vein to the first and second diagonal coronary artery performed on cardiopulmonary bypass with beating heart. Endoscopic vein harvest of the left greater saphenous vein from the ankle to the groin. Endoscopic harvest of the left radial artery. Epi- aortic ultrasound and ligation of left atrial appendage with 40 mm AtriCure clip. Postoperative acute blood loss anemia, expected outcome given cardiopulmonary bypass and hemodilution. Postoperative confusion, unexpected but potential outcome given cardiopulmonary bypass and intraoperative cardiac arrest. Postoperative new onset paroxysmal Afib with RVR, unexpected. Postoperative acute hypoxemic respiratory failure requiring reintubation, secondary to metabolic acidosis and hypotension. The patient was seen in follow-up today 11/14/2019 at his bedside in the intensive care unit. The patient remains intubated with mechanical ventilator support and sedated on propofol drip at 45 mcg/kg/m. Current mechanical ventilator settings are as follows, AC 16, TV 450, FiO2 40%, and PEEP of 5. Oxygen saturations are 100% on current mechanical ventilator settings. A Dobbhoff tube was placed yesterday and tube feedings were initiated per dietary recommendations and are currently infusing at 30 mL per hour of vital high- protein. IV fluids of D5 0.45 normal saline with 20 mEq KCl infusing at 80 mL per hour. Laboratory results this morning show his WBC count trending up and is 19.2 this morning, hemoglobin 7.7, BUN 39, creatinine 1.46, AST trending down 1324 and ALT is 1704 for this morning. The patient's bedside nurse reports that he is having daily bowel movements. His T-max temperature in the last 24 hours is 99.7F, and the bedside telemetry is currently showing normal sinus rhythm heart rate 64. The patient was having some low urine output throughout the paint specialist and was given one 5% albumin 250 mL. Objective - Vital Signs Vital signs: Vital Signs Temp 98.6 F 11/14/19 04:00 Pulse 78 11/14/19 07:51 Resp 23 11/14/19 07:00 BP 91/52 11/14/19 01:00 Pulse Ox 100 11/14/19 07:00 Intake & Output 11/13/19 11/14/19 11/14/19 18:59 06:59 18:59 Intake Total 6516.606 5358.023 184.383 Output Total 587 440 15 Balance 0603.128 6754.023 169.383 Weight 91.9 kg 94.8 kg Intake: IV 1607 1302 36 Calcium Gluconate 1 gm In 100 Sodium Chloride 0.9% 100 ml @ 100 mls/hr IVPB ONCE ONE Rx#:[id number] D5-0.45% NaCl with KCl 800 960 20Meq/l 1,000 ml @ 80 mls /hr IV .[id number] YVAN Rx#: [id number] Dextrose 5% in Water 1, 75 000 ml @ 75 mls/hr IV . [id number] YVAN with Sodium Bicarb (1 Meq/ml) 150 ml Rx#:[id number] Normal Saline Pressure 72 72 6 Bag Piperacillin-Tazobactam 3 200 .375 gm In Sodium Chloride 0.9% 100 ml @ 25 mls/hr IVPB Q8HR [facility] Rx# :[id number] Sodium Chloride 0.9% 1, 360 270 30 000 ml @ 30 mls/hr IV . Q24H [facility] Rx#:[id number] Intake, IV Titration 317.916 426.023 118.383 Amount Norepinephrine 4 mg In 107.269 232.331 18.383 Sodium Chloride 0.9% 250 ml @ 0.05 MCG/KG/MIN 16. 078 mls/hr IV .[id number] [facility]VAN Rx#:[id number] Potassium Chloride 20 meq 100 In Water For Injection 1 100ml.bag @ 50 mls/hr IVPB Q2H [facility]AN Rx#: [id number] Propofol 1,000 mg In 110.647 193.692 100.000 Empty Bag 1 bag @ Titrate IV .Q0M [facility] Rx#: [id number] Tube Feeding 50 210 30 Other 120 Output: Urine 587 440 15 Other: Voiding Method Indwelling Catheter Indwelling Catheter ABP, PAP, CO, CI - Last Documented Arterial Blood Pressure 110/43 Pulmonary Artery Pressure 30/17 Cardiac Output 4.5 Cardiac Index 2.3 - Constitutional Constitutional Comment(s): The patient remains sedated with propofol drip at 45 mcg/kg/m. - EENT EENT Comment(s): abnormal pupil right pupil slightly larger than his left pupil. Eyes: Present: poor dentition. Absent: scleral icterus - Neck Details: Neck is supple, no JVD. Right IJ triple-lumen catheter is in place and functioning. - Respiratory Details: Lung sounds are essentially clear to his bilateral upper lobes, diminished to his bilateral bases. No wheezes, rhonchi or crackles. Respirations are symmetrical and nonlabored with mechanical ventilator support. Current mechanical ventilator settings are as follows: AC 16, TV 450, FiO2 40% and a PEEP of 5. Oxygen saturations are 100% on current mechanical ventilator settings. - Cardiovascular Details: Regular rhythm and rate. S1 and S2 present, negative for S3, gallop or murmur. +1 generalized edema. Sternum is stable. Bedside telemetry showing normal sinus rhythm heart rate 64. Heart hugger is in place. Atrial and ventricular epicardial pacemaker wires in place and connected to back up pacemaker generator with a VVI 50. Knee-high ELSIE hose and sequential compression devices in place to his bilateral lower extremities. - Gastrointestinal Gastrointestinal Comment(s): Abdomen is soft, and nondistended. Hypoactive bowel sounds present all 4 abdominal quadrants. Dobbhoff tube in place with vital high-protein to feeding infusing at 30 mL per hour with goal rate of 54 mL per hour. Bowel movement yesterday. - Genitourinary Genitourinary Comment(s): Newman catheter for accurate I&O. Draining red turbid urine with 275 mL output in the last 8 hours. - Integumentary Integumentary Comment(s): Skin is warm and dry. No clubbing or cyanosis is present. Midline sternal incision is clean, dry and approximated. No drainage or redness is present. Gauze dressing is clean, dry and intact. Left arm radial artery sites clean, dry and approximated. No drainage or redness is present. Left lower extremity EVH sites are clean, dry and approximated. - Neurologic Neurologic Comment(s): Remains sedated on propofol drip at 45 mcg/kg/m. - Musculoskeletal Musculoskeletal: Present: generalized weakness - Psychiatric Psychiatric Comment(s): Remains sedated on propofol drip at 45 mcg/kg/m. - Allied health notes Allied health notes reviewed: nursing - Labs CBC & Chem 7: 11/14/19 04:20 11/14/19 04:20 Labs: Abnormal Lab Results - Last 24 Hours (Table) 11/13/19 11/13/19 11/13/19 Range/Units 04:00 10:11 12:18 WBC (3.8-10.6) k/uL RBC (4.30-5.90) m/uL Hgb (13.0-17.5) gm/dL Hct (39.0-53.0) % Neutrophils # (1.3-7.7) k/uL Monocytes # (0-1.0) k/uL Eosinophils # (0-0.7) k/uL PT 14.4 H (9.0-12.0) sec INR 1.5 H (<1.2) APTT 35.4 H (22.0-30.0) sec ABG pH (7.35-7.45) ABG pCO2 (35-45) mmHg ABG pO2 (83-108) mmHg ABG Total CO2 (19-24) mmol/L ABG O2 Saturation (94-97) % Chloride (98-107) mmol/L BUN (9-20) mg/dL Creatinine (0.66-1.25) mg/dL Glucose (74-99) mg/dL POC Glucose (mg/dL) 102 H (75-99) mg/dL Hemoglobin A1c 7.2 H (4.0-6.0) % Calcium (8.4-10.2) mg/dL AST (17-59) U/L ALT (4-49) U/L Alkaline Phosphatase (38-126) U/L Total Protein (6.3-8.2) g/dL Albumin (3.5-5.0) g/dL 11/13/19 11/13/19 11/14/19 Range/Units 15:51 19:57 00:05 WBC (3.8-10.6) k/uL RBC (4.30-5.90) m/uL Hgb (13.0-17.5) gm/dL Hct (39.0-53.0) % Neutrophils # (1.3-7.7) k/uL Monocytes # (0-1.0) k/uL Eosinophils # (0-0.7) k/uL PT (9.0-12.0) sec INR (<1.2) APTT (22.0-30.0) sec ABG pH (7.35-7.45) ABG pCO2 (35-45) mmHg ABG pO2 (83-108) mmHg ABG Total CO2 (19-24) mmol/L ABG O2 Saturation (94-97) % Chloride (98-107) mmol/L BUN (9-20) mg/dL Creatinine (0.66-1.25) mg/dL Glucose (74-99) mg/dL POC Glucose (mg/dL) 134 H 139 H 167 H (75-99) mg/dL Hemoglobin A1c (4.0-6.0) % Calcium (8.4-10.2) mg/dL AST (17-59) U/L ALT (4-49) U/L Alkaline Phosphatase (38-126) U/L Total Protein (6.3-8.2) g/dL Albumin (3.5-5.0) g/dL 11/14/19 11/14/19 11/14/19 Range/Units 04:20 04:20 04:21 WBC 19.2 H (3.8-10.6) k/uL RBC 2.44 L (4.30-5.90) m/uL Hgb 7.7 L (13.0-17.5) gm/dL Hct 23.3 L (39.0-53.0) % Neutrophils # 13.9 H (1.3-7.7) k/uL Monocytes # 1.5 H (0-1.0) k/uL Eosinophils # 1.4 H (0-0.7) k/uL PT (9.0-12.0) sec INR (<1.2) APTT (22.0-30.0) sec ABG pH 7.48 H (7.35-7.45) ABG pCO2 32 L (35-45) mmHg ABG pO2 114 H (83-108) mmHg ABG Total CO2 25 H (19-24) mmol/L ABG O2 Saturation 98.4 H (94-97) % Chloride 109 H (98-107) mmol/L BUN 39 H (9-20) mg/dL Creatinine 1.46 H (0.66-1.25) mg/dL Glucose 166 H (74-99) mg/dL POC Glucose (mg/dL) (75-99) mg/dL Hemoglobin A1c (4.0-6.0) % Calcium 7.4 L (8.4-10.2) mg/dL AST 1324 H (17-59) U/L ALT 1704 H (4-49) U/L Alkaline Phosphatase 133 H (38-126) U/L Total Protein 4.3 L (6.3-8.2) g/dL Albumin 2.4 L (3.5-5.0) g/dL 11/14/19 11/14/19 Range/Units 04:25 08:23 WBC (3.8-10.6) k/uL RBC (4.30-5.90) m/uL Hgb (13.0-17.5) gm/dL Hct (39.0-53.0) % Neutrophils # (1.3-7.7) k/uL Monocytes # (0-1.0) k/uL Eosinophils # (0-0.7) k/uL PT (9.0-12.0) sec INR (<1.2) APTT (22.0-30.0) sec ABG pH (7.35-7.45) ABG pCO2 (35-45) mmHg ABG pO2 (83-108) mmHg ABG Total CO2 (19-24) mmol/L ABG O2 Saturation (94-97) % Chloride (98-107) mmol/L BUN (9-20) mg/dL Creatinine (0.66-1.25) mg/dL Glucose (74-99) mg/dL POC Glucose (mg/dL) 195 H 205 H (75-99) mg/dL Hemoglobin A1c (4.0-6.0) % Calcium (8.4-10.2) mg/dL AST (17-59) U/L ALT (4-49) U/L Alkaline Phosphatase (38-126) U/L Total Protein (6.3-8.2) g/dL Albumin (3.5-5.0) g/dL Microbiology - Last 24 Hours (Table) 11/10/19 21:15 Blood Culture - Preliminary Blood No Growth after 72 hours 11/13/19 12:30 Gram Stain - Preliminary Sputum Sputum Culture - Preliminary 11/13/19 06:56 Urine Culture - Preliminary Urine,Catheterized 11/12/19 14:40 Blood Culture - Preliminary Blood No Growth after 24 hours 11/12/19 14:40 Blood Culture - Preliminary Blood No Growth after 24 hours - Imaging and Cardiology Chest x-ray: report reviewed, image reviewed Assessment and Plan Assessment: 1. Symptomatic multivessel coronary artery disease, recent non-STEMI, status post 5 vessel CABG 2. Leukocytosis, unknown origin, may be reactive 3. Previous stent placement to the proximal circumflex and ostial OM1 4. History of hypertension 5. History of hyperlipidemia 6. Chronic ongoing tobacco dependence 7. Mild COPD, preoperative FEV1 60% of predicted value 8. Right internal carotid artery stenosis 50-69% 9. History of peripheral arterial disease with previous arthrectomy and RIPPLER of the left SFA and atherectomy and RIPPLER of the left DIGITAL DATA ANALYST with stenting of the left BRIAN 10. Poorly controlled diabetes mellitus type 2, admission hemoglobin A1c 9.1% 11. History of bladder cancer status post radiation, chemotherapy treatment and bladder surgery 12. Occasional marijuana use 13. Medication noncompliance 14. Family history of early onset coronary artery disease 15. Postoperative acute blood loss anemia, expected 16. Postoperative confusion, unexpected 17. Mild ISAAC, creatinine today 1.46 yesterday 1.44 18. New onset Afib with RVR, status post left atrial appendage ligation 19. New onset hematuria from patient pulling at newman catheter 20. Postoperative acute hypoxic respiratory failure requiring reintubation, secondary to metabolic acidosis and hypotension 21. Elevated transaminase levels, secondary to hypotension, trending down Plan: 1. Continue aspirin, Plavix and statin. 2. Continue amiodorone for atrial fibrillation prophylaxis. Parameters placed on the amiodarone per cardiology recommendations to hold for heart rate less than 70. 3. Continue to hold beta gaurav, Cardizem and Cozaar due to his bradycardia and hypotension. 4. Keep Newman catheter in place for accurate I&O. 5. Decrease D5 0.45 normal saline with 20 mEq of KCl to 30 mL per hour. 6. Mechanical ventilator management per pulmonary critical care medicine. 7. Wean Diprivan as tolerated. 8. Will monitor daily labs and chest x-rays. Elective replacement per protocol. 9. Continue Tylenol for pain management, hold narcotics and toradol. 10. GI/DVT prophylaxis. 11. Insulin management per primary care service. 12. Lasix 40 mg IV 1 now. 13. Keep Dobbhoff tube in place for tube feeding. Currently infusing at 30 mL per hour increase to goal rate of 54 mL per hour as tolerated. 14. Continue to avoid nephrotoxic agents. 15. Keep atrial and ventricular epicardial pacemaker wires in place and connected to a backup pacemaker generator with a VVI of 50. 16. Wean norepinephrine drip to keep blood pressure map greater than or equal to 70 mmHg. 17. Vancomycin IV piggyback 1 now to be dosed by pharmacy for WBC count of 19.2. Continue Zosyn as scheduled. Antibiotic management per pulmonary critical care service. 18. More recommendations to follow based on patient's clinical course. Time with Patient: Greater than 30
[2019-11-14] MEDS: VANCOMYCIN 1,500 MG in SODIUM CHLORIDE 0.9% 250 ML IVPB SCH (09:34)
--- NOTE | 2019-11-14 11:15 | P.PN ---
Progress Note - Text Progress Note Date: 11/14/19 The patient is still on the ventilator. He is white count has increased to 19,000. He has a left shift. On exam vital signs appear stable. Abdomen soft. There is no significant tenderness. Status post CABG with postoperative code and hypertension. Patient does not show any signs of any obvious abdominal pathology. He'll be observed. He will have continue supportive care.
[2019-11-14 12:05] LABS: Glucose,Whole Blood 214 mg/dL (75-99)
--- NOTE | 2019-11-14 13:00 | P.PN ---
Subjective Progress Note Date: 11/14/19 This is a 64-year-old male patient with coronary artery disease, noncompliant to medication. The patient came in with subendocardial infarction and cardiac catheterization showed diffuse coronary artery disease with critical stenosis. The patient underwent coronary artery bypass today. The patient underwent bypass 5 with GR to LAD, radial artery graft to acute marginal, saphenous finger after 2 posterior lateral and sick ration saphenous vein to first and second diagonal performed on cardiac pulmonary bypass with beating heart. On 11/13/2019, the patient is being seen for a follow-up. The patient had significant events on the second day post extubation and all of these events were noted and I was able to participate in his care as the patient's condition got worse yesterday afternoon. The patient became progressively more tachypneic and his blood gases was repeated and it was noted that the patient had significant amount of metabolic acidosis with respiratory compensation. Ultimat tania, the patient became progressively more fatigued and went into respiratory failure. He became briefly hypoxic and had a bout of bradycardia and his blood pressure also subsequently dropped. At that point, the patient was started immediately on fluid resuscitation. Lasix was already discontinued. During the process, the patient received a total of 500 mL of albumin 5% 3, received bicarb infusion on multiple occasions total of 4 episodes of sodium bicarb was given for severe metabolic acidosis. Note that his lactic acid level was as high as 11. Following that, the patient was placed on a sodium bicarb infusion with 150 mEq of sodium bicarbonate there was running at 75 mL an hour. Lactic acid level came from 11.8 down to 1.5. He had to be intubated and placed on a mechanical ventilator. He was also requiring pressors with was running as high as 3 g per minute and currently is off the pressors. This morning, the patient is on a mechanical ventilator on assist control mode at the rate of 24 with a tidal volume of 450 and an FiO2 of 50% with a PEEP of 5. Urine output is order of 20-40 mL an hour. The blood gases from today showed a pH of 7.53 with a pCO2 of 31 and pO2 of 145. The chest x-ray shows some mild pulmonary vascular congestion and some subpulmonic pleural effusions bilaterally. The patient is well sedated with propofol and the patient is calm and comfortable. He is afebrile. As for the blood work, the white cell causative 18.7. The creatinine came up to 1.6 and currently is down to 1.4. The serum bicarbs at 28. Note that the chest tubes are already out for now. The patient has a Junior catheter in place and urine output has been approximately 240 mL's over the past 8 hours. The atrial and ventricular epicardial pacemaker wires remain in place. The bedside pacemaker generator is on a AAI mode with a rate of 70 and the underlying rhythm is sinus bradycardia. The patient has no other arrhythmias noted. On 11/14/2019, the patient is being seen for a follow-up in the intensive care unit. The patient remains sedated and the patient is calm comfortable on propofol at 40 g per KG per minute. Noted the patient remains on a mechanical ventilator. The ventilator today is set at a tidal volume of 450 with a rate of 16 FiO2 of 40% with a PEEP of 5. Blood gas show a pH of 7.48 with a pCO2 of 32 and pO2 of 114. Chest x-ray showing bilateral pleural effusion which is gotten slightly worse compared to yesterday. The patient remains having a lower CVP of 6. Cardiac rhythm is sinus. The patient is receiving vital high protein at the rate of 30 mL's an hour. The patient is also on D5 half-normal saline running at 30 mL an hour. White cell count is elevated. Nevertheless the lactic acidosis improved. The patient was receiving IV Zosyn and dose of vancomycin was also given by cardiothoracic surgery. Creatinine is still elevated at 1.46. Hemoglobin stable at 7.7. The patient is arousable. The patient was taken off sedation and took approximately 4 hours for him to wake up and follows some simple commands. Nevertheless, he became tachypneic and his progress and we had to abort the sedation holiday. He is producing adequate amount of urine output. He was given a dose of Lasix earlier by the surgical team and the patient was thought to be in some fluid overload special with development of bilateral pleural effusions. No other significant events otherwise for now. Objective - Vital Signs Vital signs: Vital Signs Temp 98.6 F 11/14/19 04:00 Pulse 84 11/14/19 12:01 Resp 23 11/14/19 07:00 BP 91/52 11/14/19 01:00 Pulse Ox 100 11/14/19 07:00 Intake & Output 11/13/19 11/14/19 11/14/19 18:59 06:59 18:59 Intake Total 4293.808 2673.023 279.663 Output Total 587 440 15 Balance 8616.326 7528.023 264.663 Weight 91.9 kg 94.8 kg Intake: IV 1607 1302 36 Calcium Gluconate 1 gm In 100 Sodium Chloride 0.9% 100 ml @ 100 mls/hr IVPB ONCE ONE Rx#:[id number] D5-0.45% NaCl with KCl 800 960 20Meq/l 1,000 ml @ 80 mls /hr IV .[id number] [facility] Rx#: [id number] Dextrose 5% in Water 1, 75 000 ml @ 75 mls/hr IV . [id number] YVAN with Sodium Bicarb (1 Meq/ml) 150 ml Rx#:[id number] Normal Saline Pressure 72 72 6 Bag Piperacillin-Tazobactam 3 200 .375 gm In Sodium Chloride 0.9% 100 ml @ 25 mls/hr IVPB Q8HR [facility] Rx# :[id number] Sodium Chloride 0.9% 1, 360 270 30 000 ml @ 30 mls/hr IV . Q24H [facility] Rx#:[id number] Intake, IV Titration 317.916 426.023 213.663 Amount Norepinephrine 4 mg In 107.269 232.331 46.734 Sodium Chloride 0.9% 250 ml @ 0.05 MCG/KG/MIN 16. 078 mls/hr IV .[id number] [facility] Rx#:[id number] Potassium Chloride 20 meq 100 In Water For Injection 1 100ml.bag @ 50 mls/hr IVPB Q2H [facility] Rx#: [id number] Propofol 1,000 mg In 110.647 193.692 166.929 Empty Bag 1 bag @ Titrate IV .Q0M [facility] Rx#: [id number] Tube Feeding 50 210 30 Other 120 Output: Urine 587 440 15 Other: Voiding Method Indwelling Catheter Indwelling Catheter ABP, PAP, CO, CI - Last Documented Arterial Blood Pressure 110/43 Pulmonary Artery Pressure 30/17 Cardiac Output 4.5 Cardiac Index 2.3 - Exam The patient remains sedated with propofol drip at 45 mcg/kg/m. - EENT EENT Comment(s): abnormal pupil right pupil slightly larger than his left pupil. Eyes: Present: poor dentition. Absent: scleral icterus - Neck Details: Neck is supple, no JVD. Right IJ triple-lumen catheter is in place and functioning. - Respiratory Details: Lung sounds are essentially clear to his bilateral upper lobes, diminished to his bilateral bases. No wheezes, rhonchi or crackles. Respirations are symmetrical and nonlabored with mechanical ventilator support. Current mechanical ventilator settings are as follows: AC 16, TV 450, FiO2 40% and a PEEP of 5. Oxygen saturations are 100% on current mechanical ventilator settings. - Cardiovascular Details: Regular rhythm and rate. S1 and S2 present, negative for S3, gallop or murmur. +1 generalized edema. Sternum is stable. Bedside telemetry showing normal sinus rhythm heart rate 64. Heart hugger is in place. Atrial and ventricular epicardial pacemaker wires in place and connected to back up pacemaker generator with a VVI 50. Knee-high ELSIE hose and sequential compression devices in place to his bilateral lower extremities. - Gastrointestinal Gastrointestinal Comment(s): Abdomen is soft, and nondistended. Hypoactive bowel sounds present all 4 abdominal quadrants. Dobbhoff tube in place with vital high-protein to feeding infusing at 30 mL per hour with goal rate of 54 mL per hour. Bowel movement yesterday. - Genitourinary Genitourinary Comment(s): Junior catheter for accurate I&O. Draining red turbid urine with 275 mL output in the last 8 hours. - Integumentary Integumentary Comment(s): Skin is warm and dry. No clubbing or cyanosis is present. Midline sternal incision is clean, dry and approximated. No drainage or redness is present. Gauze dressing is clean, dry and intact. Left arm radial artery sites clean, dry and approximated. No drainage or redness is present. Left lower extremity EVH sites are clean, dry and approximated. - Neurologic Neurologic Comment(s): Remains sedated on propofol drip at 45 mcg/kg/m. - Musculoskeletal Musculoskeletal: Present: generalized weakness - Psychiatric Psychiatric Comment(s): Remains sedated on propofol drip at 45 mcg/kg/m. - Labs CBC & Chem 7: 11/14/19 04:20 11/14/19 04:20 Labs: Abnormal Lab Results - Last 24 Hours (Table) 11/13/19 11/13/19 11/13/19 Range/Units 04:00 15:51 19:57 WBC (3.8-10.6) k/uL RBC (4.30-5.90) m/uL Hgb (13.0-17.5) gm/dL Hct (39.0-53.0) % Neutrophils # (1.3-7.7) k/uL Monocytes # (0-1.0) k/uL Eosinophils # (0-0.7) k/uL ABG pH (7.35-7.45) ABG pCO2 (35-45) mmHg ABG pO2 (83-108) mmHg ABG Total CO2 (19-24) mmol/L ABG O2 Saturation (94-97) % Chloride (98-107) mmol/L BUN (9-20) mg/dL Creatinine (0.66-1.25) mg/dL Glucose (74-99) mg/dL POC Glucose (mg/dL) 134 H 139 H (75-99) mg/dL Hemoglobin A1c 7.2 H (4.0-6.0) % Calcium (8.4-10.2) mg/dL AST (17-59) U/L ALT (4-49) U/L Alkaline Phosphatase (38-126) U/L Total Protein (6.3-8.2) g/dL Albumin (3.5-5.0) g/dL 11/14/19 11/14/19 11/14/19 Range/Units 00:05 04:20 04:20 WBC 19.2 H (3.8-10.6) k/uL RBC 2.44 L (4.30-5.90) m/uL Hgb 7.7 L (13.0-17.5) gm/dL Hct 23.3 L (39.0-53.0) % Neutrophils # 13.9 H (1.3-7.7) k/uL Monocytes # 1.5 H (0-1.0) k/uL Eosinophils # 1.4 H (0-0.7) k/uL ABG pH (7.35-7.45) ABG pCO2 (35-45) mmHg ABG pO2 (83-108) mmHg ABG Total CO2 (19-24) mmol/L ABG O2 Saturation (94-97) % Chloride 109 H (98-107) mmol/L BUN 39 H (9-20) mg/dL Creatinine 1.46 H (0.66-1.25) mg/dL Glucose 166 H (74-99) mg/dL POC Glucose (mg/dL) 167 H (75-99) mg/dL Hemoglobin A1c (4.0-6.0) % Calcium 7.4 L (8.4-10.2) mg/dL AST 1324 H (17-59) U/L ALT 1704 H (4-49) U/L Alkaline Phosphatase 133 H (38-126) U/L Total Protein 4.3 L (6.3-8.2) g/dL Albumin 2.4 L (3.5-5.0) g/dL 11/14/19 11/14/19 11/14/19 Range/Units 04:21 04:25 08:23 WBC (3.8-10.6) k/uL RBC (4.30-5.90) m/uL Hgb (13.0-17.5) gm/dL Hct (39.0-53.0) % Neutrophils # (1.3-7.7) k/uL Monocytes # (0-1.0) k/uL Eosinophils # (0-0.7) k/uL ABG pH 7.48 H (7.35-7.45) ABG pCO2 32 L (35-45) mmHg ABG pO2 114 H (83-108) mmHg ABG Total CO2 25 H (19-24) mmol/L ABG O2 Saturation 98.4 H (94-97) % Chloride (98-107) mmol/L BUN (9-20) mg/dL Creatinine (0.66-1.25) mg/dL Glucose (74-99) mg/dL POC Glucose (mg/dL) 195 H 205 H (75-99) mg/dL Hemoglobin A1c (4.0-6.0) % Calcium (8.4-10.2) mg/dL AST (17-59) U/L ALT (4-49) U/L Alkaline Phosphatase (38-126) U/L Total Protein (6.3-8.2) g/dL Albumin (3.5-5.0) g/dL 11/14/19 Range/Units 12:03 WBC (3.8-10.6) k/uL RBC (4.30-5.90) m/uL Hgb (13.0-17.5) gm/dL Hct (39.0-53.0) % Neutrophils # (1.3-7.7) k/uL Monocytes # (0-1.0) k/uL Eosinophils # (0-0.7) k/uL ABG pH (7.35-7.45) ABG pCO2 (35-45) mmHg ABG pO2 (83-108) mmHg ABG Total CO2 (19-24) mmol/L ABG O2 Saturation (94-97) % Chloride (98-107) mmol/L BUN (9-20) mg/dL Creatinine (0.66-1.25) mg/dL Glucose (74-99) mg/dL POC Glucose (mg/dL) 214 H (75-99) mg/dL Hemoglobin A1c (4.0-6.0) % Calcium (8.4-10.2) mg/dL AST (17-59) U/L ALT (4-49) U/L Alkaline Phosphatase (38-126) U/L Total Protein (6.3-8.2) g/dL Albumin (3.5-5.0) g/dL Microbiology - Last 24 Hours (Table) 11/10/19 21:15 Blood Culture - Preliminary Blood No Growth after 72 hours 11/13/19 12:30 Gram Stain - Preliminary Sputum Sputum Culture - Preliminary 11/13/19 06:56 Urine Culture - Preliminary Urine,Catheterized 11/12/19 14:40 Blood Culture - Preliminary Blood No Growth after 24 hours 11/12/19 14:40 Blood Culture - Preliminary Blood No Growth after 24 hours Assessment and Plan Plan: 1 coronary artery disease without stable angina and non-STEMI. The patient underwent five-vessel bypass surgery. CABG 5 with GR to LAD, left radial artery to obtuse marginal, saphenous vein to posterior lateral, sequential saphenous vein to first and second diagonal performed on cardiopulmonary bypass with beating heart. Epi-aortic ultrasound and ligation of left atrial appendage with Ben clip. The patient is postop day #6 2 post thoracotomy, currently intubated on mechanical ventilator, and the hi tient was extubated . Subsequently the patient had to be reintubated because of progressive lactic acidosis, metabolic acidosis, tachypnea, hypotension and respiratory failure. All the things reversed with fluid resuscitation. The patient was also covered with broad-spectrum antibiotics. Chest tubes were removed. Chest x-ray showing bilateral pleural effusions which was expected post fluid resuscitation. 3 altered mental status, consider underlying CVA, currently the patient is sedated 4 COPD with an FEV1 of 60% of predicted at baseline 5 new-onset atrial fibrillation with rapid ventricular response currently on amiodarone, expected outcome related to cardiac surgery , current rhythm is sinus bradycardia and the patient has a backup pacemaker a remote at the rate of 70. 6 Peripheral vascular disease with prior peripheral stent placements 7 Right carotid artery stenosis at 50-69% 7 History of marijuana use 8 Diabetes mellitus, type II, insulin drip for blood sugar control 9 History of bladder cancer status post radiation/chemotherapy and subsequent surgery 10 History of noncompliance 11 acute kidney injury in the creatinine is at 1.46, nonoliguric. 12 history of marijuana smoking 13 history of drug noncompliance 14 abnormal LFTs secondary to hypotension, anticipate improvement. There is a shock liver which is improving and a SGOT and SGPT are both on the decline. Bilirubin is down to 1.3. Plan Continue vent support. patient is currently on low-dose pressors and norepinephrine is at 0.03 g per KG per minute. This should be weaned off easily. Continue aspirin and Plavix and statins Put the patient D5 half-normal saline at the rate of 30 mL an hour Consider those of Lasix Continue IV Zosyn . Dose of vancomycin pending cultures Monitor white cell count Insulin for blood sugar control Keep the patient sedated with propofol , the patient failed a sedation holiday today. The same will be done tomorrow. Initiate enteral feeding for nutritional support Monitor renal function We'll keep him intubated for next 24 hours and will continue to follow. Condition is critical and this evaluation was on a more than 30 minutes. Case was discussed with the cardiothoracic team. Time with Patient: Greater than 30
--- NOTE | 2019-11-14 13:14 | P.PN ---
Subjective Patient is a [id number] male was recently discharged from the hospital came back in with the chest pain pressure-like sensation lasted for a few hours nonexertional did have elevated troponins. Patient had a triple-vessel disease patient is scheduled to undergo coronary artery bypass grafting on Friday went home started smoking again started having chest pain. Chest x-ray was read as pulmonary edema. It is not elevated patient clinically doesn't have any JVD or crackles or wheezing. 11/09/2019 Patient is status post CABG he was extubated the last night. Patient is presently on norepinephrine, milrinone, IV insulin. Patient still has a [place] [facility] in place most of the management is being done by cardiac thoracic surgery patient was bit confused earlier today doing well now. 11/10/2019 Patient is still confused as per the family his confusion is better patient is a low-grade fever probably because of atelectasis a lot and blood cultures. Patient received Lasix for pulmonary edema, patient's mediastinal chest use with remote patient still has left pleural chest tubes 11/11/2019 Patient is seen and evaluated and follow-up currently remains in the ICU and is being closely monitored. Since hemoglobin was found to be 6.7 this morning and is currently receiving 1 unit of PRBCs. Potassium is 4.4, creatinine is 1.09, magnesium is 2.3. Patient went into atrial fibrillation with RVR and is being maintained on amiodarone drip and will transition to oral medications. Patient continues to have chest tubes along with indwelling Junior catheter which shows some hematuria as patient pulled it out. Patient has been afebrile with intermittent low-grade temps 99.7F and white count today is 14.1. Patient remains on an insulin drip and will continue at this time. Will continue to follow along closely with cardio thoracic surgery. 11/12/2019 Patient is seen and evaluated and follow-up continues to be closely monitored in the ICU. Patient is currently restless and seems to be having some shortness of breath. Patient is placed on nasal cannula although was mouth breathing and is currently on 5 L of oxygen. Patient was on insulin drip which has been discontinued and patient will be continued on sliding scale as patient now has a diet ordered although isn't eating very much. Patient continues to be confused and not following commands. Patient had a chest x-ray today status post chest tube removal showing no evidence of residual pneumothorax. Patient underwent brain CT yesterday showing patchy periventricular and deep white matter changes, left greater than right that have progressed since 01/19/2019 with demyelinating disease or other infectious inflammatory etiologies are possible, and no acute intracranial hemorrhage or midline shift noted. 11/13/2019 Patient became to Make and found to have metabolic acidosis with respiratory compensation progressively got fatigued event into respiratory failure subsequently intubated patient received the bicarbonate infusion for severe metabolic acidosis and patient had lactic acidosis with the lactic acid going up to 11 which came down to 1.5 patient is also started on pressor support with Levophed on mechanical ventilator with tidal volume of 450 set up respiratory of 24 FiO2 of 50% PEEP of 5 urine output is fairly. Chest x-ray showing mild pulmonary vascular congestion with the pleural effusions bilaterally 11/14/2019 Patient the did not tolerate weaning trial. Patient remains on ventilatory support. Patient is a one dose of vancomycin patient is presently on IV Zosyn for fevers although etiology of fevers is not clear at this time. Patient blood sugars are high receiving 3 units every 4 hours as per sliding scale patient will be started on long-acting insulin 15 units and continue with sliding scale Review of systems: Unable to obtain as patient is tired and sleepy All inpatient medications were reviewed and appropriate changes in these medications as dictated in the interval history and assessment and plan. Objective - Vital Signs Vital signs: Vital Signs Temp 98.6 F 11/14/19 04:00 Pulse 84 11/14/19 12:01 Resp 23 11/14/19 07:00 BP 91/52 11/14/19 01:00 Pulse Ox 100 11/14/19 07:00 Intake & Output 11/13/19 11/14/19 11/14/19 18:59 06:59 18:59 Intake Total 0703.478 8922.023 279.663 Output Total 587 440 15 Balance 5968.623 7161.023 264.663 Weight 91.9 kg 94.8 kg Intake: IV 1607 1302 36 Calcium Gluconate 1 gm In 100 Sodium Chloride 0.9% 100 ml @ 100 mls/hr IVPB ONCE ONE Rx#:[id number] D5-0.45% NaCl with KCl 800 960 20Meq/l 1,000 ml @ 80 mls /hr IV .[id number] [facility] Rx#: [id number] Dextrose 5% in Water 1, 75 000 ml @ 75 mls/hr IV . [id number] YVAN with Sodium Bicarb (1 Meq/ml) 150 ml Rx#:[id number] Normal Saline Pressure 72 72 6 Bag Piperacillin-Tazobactam 3 200 .375 gm In Sodium Chloride 0.9% 100 ml @ 25 mls/hr IVPB Q8HR [facility] Rx# :[id number] Sodium Chloride 0.9% 1, 360 270 30 000 ml @ 30 mls/hr IV . Q24H [facility] Rx#:[id number] Intake, IV Titration 317.916 426.023 213.663 Amount Norepinephrine 4 mg In 107.269 232.331 46.734 Sodium Chloride 0.9% 250 ml @ 0.05 MCG/KG/MIN 16. 078 mls/hr IV .[id number] [facility] Rx#:[id number] Potassium Chloride 20 meq 100 In Water For Injection 1 100ml.bag @ 50 mls/hr IVPB Q2H [facility] Rx#: [id number] Propofol 1,000 mg In 110.647 193.692 166.929 Empty Bag 1 bag @ Titrate IV .Q0M [facility] Rx#: [id number] Tube Feeding 50 210 30 Other 120 Output: Urine 587 440 15 Other: Voiding Method Indwelling Catheter Indwelling Catheter ABP, PAP, CO, CI - Last Documented Arterial Blood Pressure 110/43 Pulmonary Artery Pressure 30/17 Cardiac Output 4.5 Cardiac Index 2.3 - Exam PHYSICAL EXAMINATION: GENERAL: She and is intubated sedated HEENT: Pupils are round and equally reacting to light. EOMI. No scleral icterus. No conjunctival pallor. Normocephalic, atraumatic. No pharyngeal erythema. No thyromegaly. As a triple lumen IJ CARDIOVASCULAR: S1 and S2 present. No murmurs, rubs, or gallops. PULMONARY: Chest is clear to auscultation, no wheezing or crackles. ABDOMEN: Soft, nontender, nondistended, normoactive bowel sounds. No palpable organomegaly. MUSCULOSKELETAL: No joint swelling or deformity. EXTREMITIES: No cyanosis, clubbing, or pedal edema. NEUROLOGICAL: He is sedated on propofol drip SKIN: No rashes. - Labs CBC & Chem 7: 11/14/19 04:20 11/14/19 04:20 Labs: Abnormal Lab Results - Last 24 Hours (Table) 11/13/19 11/13/19 11/13/19 Range/Units 04:00 15:51 19:57 WBC (3.8-10.6) k/uL RBC (4.30-5.90) m/uL Hgb (13.0-17.5) gm/dL Hct (39.0-53.0) % Neutrophils # (1.3-7.7) k/uL Monocytes # (0-1.0) k/uL Eosinophils # (0-0.7) k/uL ABG pH (7.35-7.45) ABG pCO2 (35-45) mmHg ABG pO2 (83-108) mmHg ABG Total CO2 (19-24) mmol/L ABG O2 Saturation (94-97) % Chloride (98-107) mmol/L BUN (9-20) mg/dL Creatinine (0.66-1.25) mg/dL Glucose (74-99) mg/dL POC Glucose (mg/dL) 134 H 139 H (75-99) mg/dL Hemoglobin A1c 7.2 H (4.0-6.0) % Calcium (8.4-10.2) mg/dL AST (17-59) U/L ALT (4-49) U/L Alkaline Phosphatase (38-126) U/L Total Protein (6.3-8.2) g/dL Albumin (3.5-5.0) g/dL 11/14/19 11/14/19 11/14/19 Range/Units 00:05 04:20 04:20 WBC 19.2 H (3.8-10.6) k/uL RBC 2.44 L (4.30-5.90) m/uL Hgb 7.7 L (13.0-17.5) gm/dL Hct 23.3 L (39.0-53.0) % Neutrophils # 13.9 H (1.3-7.7) k/uL Monocytes # 1.5 H (0-1.0) k/uL Eosinophils # 1.4 H (0-0.7) k/uL ABG pH (7.35-7.45) ABG pCO2 (35-45) mmHg ABG pO2 (83-108) mmHg ABG Total CO2 (19-24) mmol/L ABG O2 Saturation (94-97) % Chloride 109 H (98-107) mmol/L BUN 39 H (9-20) mg/dL Creatinine 1.46 H (0.66-1.25) mg/dL Glucose 166 H (74-99) mg/dL POC Glucose (mg/dL) 167 H (75-99) mg/dL Hemoglobin A1c (4.0-6.0) % Calcium 7.4 L (8.4-10.2) mg/dL AST 1324 H (17-59) U/L ALT 1704 H (4-49) U/L Alkaline Phosphatase 133 H (38-126) U/L Total Protein 4.3 L (6.3-8.2) g/dL Albumin 2.4 L (3.5-5.0) g/dL 11/14/19 11/14/19 11/14/19 Range/Units 04:21 04:25 08:23 WBC (3.8-10.6) k/uL RBC (4.30-5.90) m/uL Hgb (13.0-17.5) gm/dL Hct (39.0-53.0) % Neutrophils # (1.3-7.7) k/uL Monocytes # (0-1.0) k/uL Eosinophils # (0-0.7) k/uL ABG pH 7.48 H (7.35-7.45) ABG pCO2 32 L (35-45) mmHg ABG pO2 114 H (83-108) mmHg ABG Total CO2 25 H (19-24) mmol/L ABG O2 Saturation 98.4 H (94-97) % Chloride (98-107) mmol/L BUN (9-20) mg/dL Creatinine (0.66-1.25) mg/dL Glucose (74-99) mg/dL POC Glucose (mg/dL) 195 H 205 H (75-99) mg/dL Hemoglobin A1c (4.0-6.0) % Calcium (8.4-10.2) mg/dL AST (17-59) U/L ALT (4-49) U/L Alkaline Phosphatase (38-126) U/L Total Protein (6.3-8.2) g/dL Albumin (3.5-5.0) g/dL 11/14/19 Range/Units 12:03 WBC (3.8-10.6) k/uL RBC (4.30-5.90) m/uL Hgb (13.0-17.5) gm/dL Hct (39.0-53.0) % Neutrophils # (1.3-7.7) k/uL Monocytes # (0-1.0) k/uL Eosinophils # (0-0.7) k/uL ABG pH (7.35-7.45) ABG pCO2 (35-45) mmHg ABG pO2 (83-108) mmHg ABG Total CO2 (19-24) mmol/L ABG O2 Saturation (94-97) % Chloride (98-107) mmol/L BUN (9-20) mg/dL Creatinine (0.66-1.25) mg/dL Glucose (74-99) mg/dL POC Glucose (mg/dL) 214 H (75-99) mg/dL Hemoglobin A1c (4.0-6.0) % Calcium (8.4-10.2) mg/dL AST (17-59) U/L ALT (4-49) U/L Alkaline Phosphatase (38-126) U/L Total Protein (6.3-8.2) g/dL Albumin (3.5-5.0) g/dL Microbiology - Last 24 Hours (Table) 11/10/19 21:15 Blood Culture - Preliminary Blood No Growth after 72 hours 11/13/19 12:30 Gram Stain - Preliminary Sputum Sputum Culture - Preliminary 11/13/19 06:56 Urine Culture - Preliminary Urine,Catheterized 11/12/19 14:40 Blood Culture - Preliminary Blood No Growth after 24 hours 11/12/19 14:40 Blood Culture - Preliminary Blood No Growth after 24 hours Assessment and Plan Plan: Assessment and Plan Assessment: -Acute non-ST elevation myocardial infarction: Coronary artery diseasepatient is status post five-vessel coronary artery bypass grafting, patient is presently on aspirin and statin beta gaurav. -Acute respiratory failure hypoxic, patient had metabolic acidosis probably due to decreased organ perfusion presently intubated and sedated -New onset paroxysmal atrial fibrillation with RVR, resume rate controlled switched to oral amiodarone and oral Cardizem -Leukocytosis reactive because of patient's lactic is doses and her overall clinical condition patient is on empiric antibiotic with Zosyn source of infection is not clear patient's her 1 dose of IV vancomycin -Possible congestive heart failure chronic diastolic dysfunction with acute exacerbation -Low-grade fever probably because of atelectasis; patient to continue with incentive spirometry at least 10 times every hour while awake, improving -Hypertension -Hyperlipidemia -Type 2 diabetes mellitus, and is on sliding scale every 6 hourly, adding long- acting insulin 15 units -COPD without any acute exacerbation -Severe peripheral vascular disease -History of bladder cancer status post chemotherapy and radiation - nicotine use and marijuana use
--- NOTE | 2019-11-14 13:23 | PN ---
PROGRESS NOTE Mr. Reis remains intubated. White count is going up, hemodynamically stable. Urine output has also decreased. Overall prognosis remains poor for this patient. He is getting some antibiotics. I am recommending that he appears to be volume overloaded, may receive a couple of doses of Lasix 40 mg q.12 hours. Maintaining sinus rhythm. Fairly stable hemodynamically so far, but is a question of sepsis. S1, S2 heard normally. Pericardial rub is audible. Lungs reveal diminished air entry. Abdomen and lower extremity exam otherwise are unchanged. Prognosis remains poor for this patient with multiple comorbid conditions and recent setback with initially a cognitive impairment and now with hypotension, bradycardia requiring re-intubation. Prognosis remains poor. MMODL / IJN: [id number] /
[2019-11-14] MEDS: NOREPINEPHRINE 4 MG in SODIUM CHLORIDE 0.9% 250 ML IV SCH (15:22)
[2019-11-14 17:02] LABS: Glucose,Whole Blood 196 mg/dL (75-99)
[2019-11-14 19:56] LABS: Amorphous Sediment,Urine Rare /hpf; Appearance,Urine Cloudy (Clear); Bilirubin,Urine Negative (Negative); Blood,Urine Large (Negative); Color,Urine Light Red; Glucose,Urine (UA) Negative (Negative); Ketones,Urine Negative (Negative); Leukocyte Esterase,Urine Moderate (Negative); Mucus,Urine Rare /hpf; Nitrite,Urine Negative (Negative); Protein,Urine Trace (Negative); RBC,Urine >182 /hpf (0-5); Specific Gravity,Urine 1.008 (1.001-1.035); Urobilinogen,Urine <2.0 mg/dL (<2.0); WBC,Urine 9 /hpf (0-5)
[2019-11-14 20:30] LABS: Glucose,Whole Blood 210 mg/dL (75-99)
[2019-11-14] MEDS: INSULIN DETEMIR (LEVEMIR) 100 UNIT/ML SYR SQ SCH (20:53)
[2019-11-14] MEDS: SENNOSIDES-DOCUSATE SODIUM 1 EACH TAB PO SCH (20:55)
[2019-11-14 23:54] LABS: Glucose,Whole Blood 204 mg/dL (75-99)
[2019-11-15] MEDS: INSULIN ASPART (NovoLOG) 100 UNIT/ML VIAL SQ SCH ×6 (00:04→19:56)
[2019-11-15] MEDS: VANCOMYCIN 1,500 MG in SODIUM CHLORIDE 0.9% 250 ML IVPB SCH ×2 (02:40→18:35)
[2019-11-15] MEDS: D5-0.45% NACL WITH KCL 20MEQ/L 1,000 ML IV SCH (02:41)
[2019-11-15 04:09] LABS: Glucose,Whole Blood 213 mg/dL (75-99)
[2019-11-15 04:15] LABS: Basophils # (A) 0.1 k/uL (0-0.2); Basophils % (A) 0 %; Eosinophils # (A) 1.2 k/uL (0-0.7); Eosinophils % (A) 8 %; HCT 24.4 % (39.0-53.0); HGB 7.9 gm/dL (13.0-17.5); Hypochromasia Slight; Lymphocytes # (A) 1.1 k/uL (1.0-4.8); Lymphocytes % (A) 7 %; MCH 31.5 pg (25.0-35.0); MCHC 32.4 g/dL (31.0-37.0); MCV 97.4 fL (80.0-100.0); Macrocytosis Slight; Mean Platelet Volume 9.5; Monocytes # (A) 1.2 k/uL (0-1.0); Monocytes % (A) 8 %; Neutrophils # (A) 11.2 k/uL (1.3-7.7); Neutrophils % (A) 73 %; Platelet Count 176 k/uL (150-450); RBC 2.51 m/uL (4.30-5.90); RDW 15.7 % (11.5-15.5); WBC 15.3 k/uL (3.8-10.6)
[2019-11-15 04:32] LABS: Albumin 2.5 g/dL (3.5-5.0); Calcium 7.7 mg/dL (8.4-10.2); Potassium 3.9 mmol/L (3.5-5.1); Total Bilirubin 1.4 mg/dL (0.2-1.3); Total Protein 4.5 g/dL (6.3-8.2)
[2019-11-15] MEDS ORDERED: POTASSIUM BICARBONATE/CIT AC 20 MEQ TABLET.EFF NG-TUBE SCH (05:00)
[2019-11-15 05:34] LABS: Allen Test Performed? Yes
[2019-11-15 05:35] LABS: ABG Base Excess -0.6 mmol/L; ABG HCO3 23 mmol/L (21-25); ABG PCO2 32 mmHg (35-45); ABG PH 7.47 (7.35-7.45); ABG PO2 80 mmHg (83-108); ABG TCO2 24 mmol/L (19-24)
[2019-11-15] MEDS: HEPARIN SODIUM,PORCINE 5,000 UNIT/ML 1 ML VIAL SQ SCH ×3 (05:45→22:46)
[2019-11-15] MEDS: ASCORBIC ACID 500 MG TAB PO SCH ×2 (06:30→17:15)
[2019-11-15] MEDS: PANTOPRAZOLE 40 MG TABLET PO SCH (06:30)
[2019-11-15] MEDS: FERROUS SULFATE 325 MG TAB PO SCH ×2 (06:30→18:28)
[2019-11-15 07:54] LABS: Glucose,Whole Blood 193 mg/dL (75-99)
[2019-11-15] MEDS: PIPERACILLIN-TAZOBACTAM 3.375 GM in SODIUM CHLORIDE 0.9% 100 ML IVPB SCH (08:03)
[2019-11-15] MEDS: ATORVASTATIN 40 MG TAB PO SCH (08:04)
[2019-11-15] MEDS: ASPIRIN 325 MG TAB PO SCH (08:04)
[2019-11-15] MEDS: CHLORHEXIDINE GLUCONATE 15 ML CUP MUCOUS MEM SCH ×2 (08:04→20:02)
[2019-11-15] MEDS: CLOPIDOGREL 75 MG TAB PO SCH (08:04)
[2019-11-15] MEDS ORDERED: FUROSEMIDE 10 MG/ML 4 ML VIAL IV STA (08:06)
[2019-11-15] MEDS ORDERED: FUROSEMIDE 10 MG/ML 4 ML VIAL ONE (08:08)
[2019-11-15] MEDS: IPRATROPIUM-ALBUTEROL 3 ML NEB INHALATION SCH ×4 (08:09→19:59)
--- NOTE | 2019-11-15 11:06 | XR ---
EXAMINATION TYPE: XR chest 1V portable DATE OF EXAM: 11/15/2019 COMPARISON: Chest radiograph 11/14/2019 HISTORY: Tube placement TECHNIQUE: Single frontal portable view of the chest is obtained. FINDINGS: Right-sided internal jugular central venous catheter distal tip overlies the right atrium, unchanged from 11/14/2019 comparison. Endotracheal tube distal tip at the level of the clavicular hea ds, unchanged. Enteric tube with nonvisualization of the distal tip. Left atrial appendage clip redem onstrated. Cardiomegaly and mediastinal silhouette unchanged. Redemonstrated pulmonary vascular conge stion and small bilateral pleural effusions. No evidence of pneumothorax. IMPRESSION: 1. Unchanged radiographic appearance of tubes and lines. 2. Unchanged aeration of the bilateral lungs.
[2019-11-15 11:21] LABS: Glucose,Whole Blood 160 mg/dL (75-99)
[2019-11-15] MEDS: AMIODARONE 200 MG TAB PO SCH ×2 (11:36→20:02)
[2019-11-15] MEDS: NYSTATIN 100,000 UNIT/ML SUSP 500,000 UNIT/5 ML CUP PO SCH ×4 (11:48→22:46)
--- NOTE | 2019-11-15 12:08 | P.PN ---
Subjective Progress Note Date: 11/15/19 Principal diagnosis: Symptomatic multivessel coronary artery disease, unstable angina, status post subendocardial myocardial infarction. 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 POD #7 coronary artery bypass grafting 5 with GR to the LAD, left radial artery to the obtuse marginal coronary artery, a reverse greater saphenous vein to the posterior lateral coronary artery, sequential saphenous vein to the first and second diagonal coronary artery performed on cardiopulmonary bypass with beating heart. Endoscopic vein harvest of the left greater saphenous vein from the ankle to the groin. Endoscopic harvest of the left radial artery. Epi- aortic ultrasound and ligation of left atrial appendage with 40 mm AtriCure clip. Postoperative acute blood loss anemia, expected outcome given cardiopulmonary bypass and hemodilution. Postoperative confusion, unexpected but potential outcome given cardiopulmonary bypass and intraoperative cardiac arrest. Postoperative new onset paroxysmal Afib with RVR, unexpected. Postoperative acute hypoxemic respiratory failure requiring reintubation, secondary to metabolic acidosis and hypotension. The patient was seen in follow-up today 11/15/2019 at his bedside in the intensive care unit. The patient remains intubated with mechanical ventilator support and sedated on propofol drip at 50 mcg/kg/m. Current mechanical ventilator settings are as follows, AC 16, TV 450, FiO2 40%, and PEEP of 5. Oxygen saturations are 100% on current mechanical ventilator settings. ABG results this morning show a pH of 7.47, pCO2 32, pO2 80, HCO3 23, oxygen saturation 96% and base excess of -0.6. Currently he is hemodynamically stable with norepinephrine drip infusing at 3 mcg/m. Dobbhoff tube remains in place with tube feedings infusing at goal rate vital high-protein at 54 mL per hour and automatic water flushes 30 mL every 4 hours. His bedside nurse reports that his sedation was weaned off yesterday for around 4 hours and the patient was following commands and opening up his eyes with verbal stimuli while the s edation was on hold. The patient was restarted on the Diprivan as the patient became tachypneic. Bedside telemetry showing normal sinus rhythm heart rate 75 BPM. Right IJ central catheter remains in place and connected to continuous CVP monitoring, current CVP pressure 15 mmHg. The patient continues on antibiotic coverage with Zosyn and vancomycin, laboratory results this morning show a WBC count trending down and is 15.3 today, hemoglobin is 7.9, BUN 35, creatinine 1.27, AST 478 and ALT 1301. He remains afebrile the last 24 hours. Objective - Vital Signs Vital signs: Vital Signs Temp 98.6 F 11/15/19 04:00 Pulse 66 11/15/19 11:37 Resp 23 11/15/19 07:00 BP 106/61 11/15/19 06:00 Pulse Ox 100 11/15/19 07:00 Intake & Output 11/14/19 11/15/19 11/15/19 18:59 06:59 18:59 Intake Total 2618.253 6185.261 90 Output Total 1605 860 50 Balance 43.355 881.261 40 Weight 95 kg Intake: IV 652 782 36 D5-0.45% NaCl with KCl 350 360 30 20Meq/l 1,000 ml @ 30 mls /hr IV .Q24H [facility] Rx#: [id number] Normal Saline Pressure 72 72 6 Bag Piperacillin-Tazobactam 3 200 100 .375 gm In Sodium Chloride 0.9% 100 ml @ 25 mls/hr IVPB Q8HR [facility] Rx# :[id number] Sodium Chloride 0.9% 1, 30 000 ml @ 30 mls/hr IV . Q24H [facility] Rx#:[id number] Vancomycin 1,500 mg In 250 Sodium Chloride 0.9% 250 ml @ 125 mls/hr IVPB Q16H [facility] Rx#:[id number] Intake, IV Titration 533.355 339.261 0 Amount Norepinephrine 4 mg In 83.355 38.324 0 Sodium Chloride 0.9% 250 ml @ 0.05 MCG/KG/MIN 16. 078 mls/hr IV .[id number] [facility] Rx#:[id number] Propofol 1,000 mg In 200.000 300.937 Empty Bag 1 bag @ Titrate IV .Q0M [facility] Rx#: [id number] Vancomycin 1,500 mg In 250 Sodium Chloride 0.9% 250 ml @ 125 mls/hr IVPB Q16H [facility] Rx#:[id number] Tube Feeding 400 560 54 Other 63 60 Output: Urine 1605 860 50 Other: Voiding Method Indwelling Catheter Indwelling Catheter ABP, PAP, CO, CI - Last Documented Arterial Blood Pressure 117/50 Pulmonary Artery Pressure 30/17 Cardiac Output 4.5 Cardiac Index 2.3 - Constitutional Constitutional Comment(s): The patient remains sedated on propofol drip at 50 mcg/kg/m. - EENT EENT Comment(s): abnormal pupil right pupil slightly larger than his left pupil. Eyes: Present: poor dentition. Absent: scleral icterus ENT: Present: thrush - Neck Details: Neck is supple, no JVD. Right IJ triple-lumen is in place and connected to cont inuous CVP monitoring, current CVP pressures 15 mmHg. - Respiratory Details: Lung sounds are essentially clear to his bilateral upper lobes, diminished to his bilateral bases. No wheezes, crackles or rhonchi. Respirations are symmetrical and nonlabored with mechanical ventilator support. Current mechanical ventilator settings are as follows: AC 16, TV 450, FiO2 40% and a PEEP of 5. Oxygen saturations are 100% on current mechanical ventilator settings. - Cardiovascular Details: Regular rhythm and rate. S1 and S2 present, negative for S3, gallop or murmur. Sternum stable. +1 generalized edema. Bedside telemetry showing normal sinus rhythm heart rate 75. Knee-high ELSIE hose and sequential compression devices in place was bilateral lower extremities. Atrial and ventricular epicardial pacemaker wires remain in place and connected to backup bedside pacemaker generator with a VVI 50. - Gastrointestinal Gastrointestinal Comment(s): Abdomen is soft, and nondistended. Hypoactive bowel sounds present in all 4 abdominal quadrants. Dobbhoff tube in place with vital high-protein infusing ankle rate of 54 mL per hour with 30 mL every 4 hours of water flushes. Bowel movement yesterday 11/14/2019. - Genitourinary Genitourinary Comment(s): Newman catheter for accurate I&O. Draining cloudy rachana urine. 645 mL output in the last 8 hours. - Integumentary Integumentary Comment(s): Skin is warm and dry. No clubbing or cyanosis is present. Midline sternal incision is clean, dry and approximated. No drainage or redness is present. Gauze dressing is clean, dry and intact. Left arm radial harvest sites are clean, dry and approximated. No drainage or redness is present. Left lower extremity EVH site is clean, dry and approximated. No drainage or redness is present. Small scattered ecchymotic areas to his left thigh and left forearm. Soft to touch. Positive ulnar pulse to his left arm. - Neurologic Neurologic Comment(s): Patient remains sedated on propofol drip at 50 mcg/kg/m. - Musculoskeletal Musculoskeletal: Present: generalized weakness - Psychiatric Psychiatric Comment(s): Patient remains sedated on propofol drip at 50 mcg/kg/m. - Allied health notes Allied health notes reviewed: nursing - Labs CBC & Chem 7: 11/15/19 04:05 11/15/19 04:05 Labs: Abnormal Lab Results - Last 24 Hours (Table) 11/14/19 11/14/19 11/14/19 Range/Units 10:20 12:03 17:00 WBC (3.8-10.6) k/uL RBC (4.30-5.90) m/uL Hgb (13.0-17.5) gm/dL Hct (39.0-53.0) % RDW (11.5-15.5) % Neutrophils # (1.3-7.7) k/uL Monocytes # (0-1.0) k/uL Eosinophils # (0-0.7) k/uL ABG pH (7.35-7.45) ABG pCO2 (35-45) mmHg ABG pO2 (83-108) mmHg Chloride (98-107) mmol/L BUN (9-20) mg/dL Creatinine (0.66-1.25) mg/dL Glucose (74-99) mg/dL POC Glucose (mg/dL) 214 H 196 H (75-99) mg/dL Calcium (8.4-10.2) mg/dL Total Bilirubin (0.2-1.3) mg/dL AST (17-59) U/L ALT (4-49) U/L Alkaline Phosphatase (38-126) U/L Total Protein (6.3-8.2) g/dL Albumin (3.5-5.0) g/dL Urine Protein Trace H (Negative) Urine Blood Large H (Negative) Ur Leukocyte Esterase Moderate H (Negative) Urine RBC >182 H (0-5) /hpf Urine WBC 9 H (0-5) /hpf Amorphous Sediment Rare H (None) /hpf Urine Mucus Rare H (None) /hpf 11/14/19 11/14/19 11/15/19 Range/Units 20:29 23:52 04:05 WBC 15.3 H (3.8-10.6) k/uL RBC 2.51 L (4.30-5.90) m/uL Hgb 7.9 L (13.0-17.5) gm/dL Hct 24.4 L (39.0-53.0) % RDW 15.7 H (11.5-15.5) % Neutrophils # 11.2 H (1.3-7.7) k/uL Monocytes # 1.2 H (0-1.0) k/uL Eosinophils # 1.2 H (0-0.7) k/uL ABG pH (7.35-7.45) ABG pCO2 (35-45) mmHg ABG pO2 (83-108) mmHg Chloride (98-107) mmol/L BUN (9-20) mg/dL Creatinine (0.66-1.25) mg/dL Glucose (74-99) mg/dL POC Glucose (mg/dL) 210 H 204 H (75-99) mg/dL Calcium (8.4-10.2) mg/dL Total Bilirubin (0.2-1.3) mg/dL AST (17-59) U/L ALT (4-49) U/L Alkaline Phosphatase (38-126) U/L Total Protein (6.3-8.2) g/dL Albumin (3.5-5.0) g/dL Urine Protein (Negative) Urine Blood (Negative) Ur Leukocyte Esterase (Negative) Urine RBC (0-5) /hpf Urine WBC (0-5) /hpf Amorphous Sediment (None) /hpf Urine Mucus (None) /hpf 11/15/19 11/15/19 11/15/19 Range/Units 04:05 04:08 05:27 WBC (3.8-10.6) k/uL RBC (4.30-5.90) m/uL Hgb (13.0-17.5) gm/dL Hct (39.0-53.0) % RDW (11.5-15.5) % Neutrophils # (1.3-7.7) k/uL Monocytes # (0-1.0) k/uL Eosinophils # (0-0.7) k/uL ABG pH 7.47 H (7.35-7.45) ABG pCO2 32 L (35-45) mmHg ABG pO2 80 L (83-108) mmHg Chloride 108 H (98-107) mmol/L BUN 35 H (9-20) mg/dL Creatinine 1.27 H (0.66-1.25) mg/dL Glucose 181 H (74-99) mg/dL POC Glucose (mg/dL) 213 H (75-99) mg/dL Calcium 7.7 L (8.4-10.2) mg/dL Total Bilirubin 1.4 H (0.2-1.3) mg/dL AST 478 H (17-59) U/L ALT 1301 H (4-49) U/L Alkaline Phosphatase 167 H (38-126) U/L Total Protein 4.5 L (6.3-8.2) g/dL Albumin 2.5 L (3.5-5.0) g/dL Urine Protein (Negative) Urine Blood (Negative) Ur Leukocyte Esterase (Negative) Urine RBC (0-5) /hpf Urine WBC (0-5) /hpf Amorphous Sediment (None) /hpf Urine Mucus (None) /hpf 11/15/19 11/15/19 Range/Units 07:53 11:20 WBC (3.8-10.6) k/uL RBC (4.30-5.90) m/uL Hgb (13.0-17.5) gm/dL Hct (39.0-53.0) % RDW (11.5-15.5) % Neutrophils # (1.3-7.7) k/uL Monocytes # (0-1.0) k/uL Eosinophils # (0-0.7) k/uL ABG pH (7.35-7.45) ABG pCO2 (35-45) mmHg ABG pO2 (83-108) mmHg Chloride (98-107) mmol/L BUN (9-20) mg/dL Creatinine (0.66-1.25) mg/dL Glucose (74-99) mg/dL POC Glucose (mg/dL) 193 H 160 H (75-99) mg/dL Calcium (8.4-10.2) mg/dL Total Bilirubin (0.2-1.3) mg/dL AST (17-59) U/L ALT (4-49) U/L Alkaline Phosphatase (38-126) U/L Total Protein (6.3-8.2) g/dL Albumin (3.5-5.0) g/dL Urine Protein (Negative) Urine Blood (Negative) Ur Leukocyte Esterase (Negative) Urine RBC (0-5) /hpf Urine WBC (0-5) /hpf Amorphous Sediment (None) /hpf Urine Mucus (None) /hpf Microbiology - Last 24 Hours (Table) 11/13/19 12:30 Gram Stain - Final Sputum Sputum Culture - Final 11/13/19 06:56 Urine Culture - Final Urine,Catheterized 11/10/19 21:15 Blood Culture - Preliminary Blood No Growth after 96 hours 11/12/19 14:40 Blood Culture - Preliminary Blood No Growth after 48 hours 11/12/19 14:40 Blood Culture - Preliminary Blood No Growth after 48 hours - Imaging and Cardiology Chest x-ray: report reviewed, image reviewed Assessment and Plan Assessment: 1. Symptomatic multivessel coronary artery disease, recent non-STEMI, status post 5 vessel CABG 2. Leukocytosis, unknown origin, may be reactive 3. Previous stent placement to the proximal circumflex and ostial OM1 4. History of hypertension 5. History of hyperlipidemia 6. Chronic ongoing tobacco dependence 7. Mild COPD, preoperative FEV1 60% of predicted value 8. Right internal carotid artery stenosis 50-69% 9. 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 Poorly controlled diabetes mellitus type 2, admission hemoglobin A1c 9.1% 11. History of bladder cancer status post radiation, chemotherapy treatment and bladder surgery 12. Occasional marijuana use 13. Medication noncompliance 14. Family history of early onset coronary artery disease 15. Postoperative acute blood loss anemia, expected 16. Postoperative confusion, unexpected 17. Mild SIAAC, creatinine today 1.46 yesterday 1.44 18. New onset Afib with RVR, status post left atrial appendage ligation 19. New onset hematuria from patient pulling at newman catheter 20. Postoperative acute hypoxic respiratory failure requiring reintubation, secondary to metabolic acidosis and hypotension 21. Elevated transaminase levels, secondary to hypotension, trending down Plan: 1. Continue aspirin, Plavix and statin. 2. Continue amiodorone for atrial fibrillation prophylaxis. Parameters placed on the amiodarone per cardiology recommendations to hold for heart rate less than 70. 3. Continue to hold beta gaurav, Cardizem and Cozaar due to his bradycardia and hypotension. 4. Keep Newman catheter in place for accurate I&O. Newman catheter was changed on 11/14/2019. 5. Discontinue D5 0.45 normal saline with 20 mEq of KCl. 6. Mechanical ventilator management per pulmonary critical care medicine. 7. Wean Diprivan as tolerated. 8. Will monitor daily labs and chest x-rays. Elective replacement per protocol. 9. Continue Tylenol for pain management, hold narcotics and toradol. 10. GI/DVT prophylaxis. 11. Insulin management per primary care service. 12. Lasix 40 mg IV 1 now. 13. Keep Dobbhoff tube in place for tube feeding. Currently infusing at goal rate of 54 mL per hour. 14. Continue to avoid nephrotoxic agents. 15. Keep atrial and ventricular epicardial pacemaker wires in place and connected to a backup pacemaker generator with a VVI of 50. 16. Wean norepinephrine drip to keep blood pressure map greater than or equal to 70 mmHg. 17. Consult infectious disease for elevated WBC count and antibiotic management. 18. More recommendations to follow based on patient's clinical course. Time with Patient: Greater than 30
--- NOTE | 2019-11-15 13:36 | P.PN ---
Subjective Progress Note Date: 11/15/19 Principal diagnosis: Coronary artery disease and non-ST elevation myocardial infarction, status post 5 vessel bypass surgery postoperative day #7 This is a 64-year-old male patient with coronary artery disease, noncompliant to medication. The patient came in with subendocardial infarction and cardiac catheterization showed diffuse coronary artery disease with critical stenosis. The patient underwent coronary artery bypass today. The patient underwent bypass 5 with GR to LAD, radial artery graft to acute marginal, saphenous finger after 2 posterior lateral and sick ration saphenous vein to first and second diagonal performed on cardiac pulmonary bypass with beating heart. On 11/13/2019, the patient is being seen for a follow-up. The patient had significant events on the second day post extubation and all of these events were noted and I was able to participate in his care as the patient's condition got worse yesterday afternoon. The patient became progressively more tachypneic and his blood gases was repeated and it was noted that the patient had signifi cant amount of metabolic acidosis with respiratory compensation. Ultimately, the patient became progressively more fatigued and went into respiratory failure. He became briefly hypoxic and had a bout of bradycardia and his blood pressure also subsequently dropped. At that point, the patient was started immediately on fluid resuscitation. Lasix was already discontinued. During the process, the patient received a total of 500 mL of albumin 5% 3, received bicarb infusion on multiple occasions total of 4 episodes of sodium bicarb was given for severe metabolic acidosis. Note that his lactic acid level was as high as 11. Following that, the patient was placed on a sodium bicarb infusion with 150 mEq of sodium bicarbonate there was running at 75 mL an hour. Lactic acid level came from 11.8 down to 1.5. He had to be intubated and placed on a mechanical ventilator. He was also requiring pressors with was running as high as 3 g per minute and currently is off the pressors. This morning, the patient is on a mechanical ventilator on assist control mode at the rate of 24 with a ti belkys volume of 450 and an FiO2 of 50% with a PEEP of 5. Urine output is order of 20-40 mL an hour. The blood gases from today showed a pH of 7.53 with a pCO2 of 31 and pO2 of 145. The chest x-ray shows some mild pulmonary vascular congestion and some subpulmonic pleural effusions bilaterally. The patient is well sedated with propofol and the patient is calm and comfortable. He is afebrile. As for the blood work, the white cell causative 18.7. The creatinine came up to 1.6 and currently is down to 1.4. The serum bicarbs at 28. Note that the chest tubes are already out for now. The patient has a Junior catheter in place and urine output has been approximately 240 mL's over the past 8 hours. The atrial and ventricular epicardial pacemaker wires remain in place. The bedside pacemaker generator is on a AAI mode with a rate of 70 and the underlying rhythm is sinus bradycardia. The patient has no other arrhythmias noted. On 11/14/2019, the patient is being seen for a follow-up in the intensive care unit. The patient remains sedated and the patient is calm comfortable on propof ol at 40 g per KG per minute. Noted the patient remains on a mechanical ventilator. The ventilator today is set at a tidal volume of 450 with a rate of 16 FiO2 of 40% with a PEEP of 5. Blood gas show a pH of 7.48 with a pCO2 of 32 and pO2 of 114. Chest x-ray showing bilateral pleural effusion which is gotten slightly worse compared to yesterday. The patient remains having a lower CVP of 6. Cardiac rhythm is sinus. The patient is receiving vital high protein at the rate of 30 mL's an hour. The patient is also on D5 half-normal saline running at 30 mL an hour. White cell count is elevated. Nevertheless the lactic acidosis improved. The patient was receiving IV Zosyn and dose of vancomycin was also given by cardiothoracic surgery. Creatinine is still elevated at 1.46. Hemoglobin stable at 7.7. The patient is arousable. The patient was taken off sedation and took approximately 4 hours for him to wake up and follows some simple commands. Nevertheless, he became tachypneic and his progress and we had to abort the sedation holiday. He is producing adequate amount of urine output. He was given a dose of Lasix earlier by the surgical team and the patient was thought to be in some fluid overload special with development of bilateral pleural effusions. No other significant events otherwise for now. Patient was reevaluated today on 11/15/19, remains in the ICU, intubated and mechanically ventilated. His ventilator settings are assist control rate of 16 tidal volume is 450 FiO2 is 40% PEEP is 5. ABG showed a pO2 of 80 pCO2 of 32 pH of 7.47. Patient is status post CABG 5, postoperative day #7. He remains on norepinephrine at 0.03 mcg/kg/m, propofol at 50 mcg/kg/m. Chest x-ray is clearly showing evidence of pulmonary edema, difficult to rule out underlying pn eumonia, but this is felt to be less likely. Patient was given a sedation holiday today, and could not be tolerated, patient was extremely tachypneic and tachycardic off sedation. Patient has a Dobbhoff tube in place, and he is on enteral feeding. Feeding is at goal. Today after evaluating the patient, and recommended Lasix at 40 mg IV push every 12 hours, chest x-ray is clearly consistent with pulmonary edema. Electrolytes unremarkable, BUN is 35 creatinine is 1.27, improved compared to the last few days. Liver enzymes are abnormal, patient apparently had what seemed to be a shocked liver. Objective - Vital Signs Vital signs: Vital Signs Temp 98.6 F 11/15/19 04:00 Pulse 64 11/15/19 11:48 Resp 23 11/15/19 07:00 BP 106/61 11/15/19 06:00 Pulse Ox 100 11/15/19 07:00 Intake & Output 11/14/19 11/15/19 11/15/19 18:59 06:59 18:59 Intake Total 4304.045 0825.261 94.181 Output Total 1605 860 50 Balance 43.355 881.261 44.181 Weight 95 kg 95 kg Intake: IV 652 782 36 D5-0.45% NaCl with KCl 350 360 30 20Meq/l 1,000 ml @ 30 mls /hr IV .Q24H [facility] Rx#: [id number] Normal Saline Pressure 72 72 6 Bag Piperacillin-Tazobactam 3 200 100 .375 gm In Sodium Chloride 0.9% 100 ml @ 25 mls/hr IVPB Q8HR [facility] Rx# :[id number] Sodium Chloride 0.9% 1, 30 000 ml @ 30 mls/hr IV . Q24H [facility] Rx#:[id number] Vancomycin 1,500 mg In 250 Sodium Chloride 0.9% 250 ml @ 125 mls/hr IVPB Q16H [facility] Rx#:[id number] Intake, IV Titration 533.355 339.261 4.181 Amount Norepinephrine 4 mg In 83.355 38.324 4.181 Sodium Chloride 0.9% 250 ml @ 0.05 MCG/KG/MIN 16. 078 mls/hr IV .[id number] [facility] Rx#:[id number] Propofol 1,000 mg In 200.000 300.937 Empty Bag 1 bag @ Titrate IV .Q0M [facility] Rx#: [id number] Vancomycin 1,500 mg In 250 Sodium Chloride 0.9% 250 ml @ 125 mls/hr IVPB Q16H [facility] Rx#:[id number] Tube Feeding 400 560 54 Other 63 60 Output: Urine 1605 860 50 Other: Voiding Method Indwelling Catheter Indwelling Catheter ABP, PAP, CO, CI - Last Documented Arterial Blood Pressure 117/50 Pulmonary Artery Pressure 30/17 Cardiac Output 4.5 Cardiac Index 2.3 - Exam Physical Exam: Revealed a 64-year-old white male intubated, mechanically ventilated, sedated, in no distress. Head: Atraumatic, normocephalic, endotracheal tube and Dobbhoff tube are intact. HEENT:[Neck is supple.] [No neck masses.] [No thyromegaly.] [No JVD.] Moist mucous membranes, PERRLA, EOMI, no icterus. Right IJ triple-lumen catheter is noted. Chest: Symmetrical chest expansion, crackles at the bases no rhonchi and no wheezes.] Cardiac Exam: [Normal S1 and S2, no S3 gallop, no murmur.] Abdomen: [Soft, nontender, no megaly, no rebound, no guarding, normal bowel sounds.] Extremities: [No clubbing, no edema, no cyanosis.] Neurological Exam: Could not be assessed, patient is sedated, on propofol drip. Psychiatric: Could not be assessed. Skin: No rashes. Lymphatics: No lymphadenopathy. - Labs CBC & Chem 7: 11/15/19 04:05 11/15/19 04:05 Labs: Abnormal Lab Results - Last 24 Hours (Table) 11/14/19 11/14/19 11/14/19 Range/Units 04:20 10:20 17:00 WBC (3.8-10.6) k/uL RBC (4.30-5.90) m/uL Hgb (13.0-17.5) gm/dL Hct (39.0-53.0) % RDW (11.5-15.5) % Neutrophils # (1.3-7.7) k/uL Monocytes # (0-1.0) k/uL Eosinophils # (0-0.7) k/uL ABG pH (7.35-7.45) ABG pCO2 (35-45) mmHg ABG pO2 (83-108) mmHg Chloride (98-107) mmol/L BUN (9-20) mg/dL Creatinine (0.66-1.25) mg/dL Glucose (74-99) mg/dL POC Glucose (mg/dL) 196 H (75-99) mg/dL Calcium (8.4-10.2) mg/dL Total Bilirubin (0.2-1.3) mg/dL AST (17-59) U/L ALT (4-49) U/L Alkaline Phosphatase (38-126) U/L Total Protein (6.3-8.2) g/dL Albumin (3.5-5.0) g/dL Procalcitonin 0.99 H (0.02-0.09) ng/mL Urine Protein Trace H (Negative) Urine Blood Large H (Negative) Ur Leukocyte Esterase Moderate H (Negative) Urine RBC >182 H (0-5) /hpf Urine WBC 9 H (0-5) /hpf Amorphous Sediment Rare H (None) /hpf Urine Mucus Rare H (None) /hpf 11/14/19 11/14/19 11/15/19 Range/Units 20:29 23:52 04:05 WBC 15.3 H (3.8-10.6) k/uL RBC 2.51 L (4.30-5.90) m/uL Hgb 7.9 L (13.0-17.5) gm/dL Hct 24.4 L (39.0-53.0) % RDW 15.7 H (11.5-15.5) % Neutrophils # 11.2 H (1.3-7.7) k/uL Monocytes # 1.2 H (0-1.0) k/uL Eosinophils # 1.2 H (0-0.7) k/uL ABG pH (7.35-7.45) ABG pCO2 (35-45) mmHg ABG pO2 (83-108) mmHg Chloride (98-107) mmol/L BUN (9-20) mg/dL Creatinine (0.66-1.25) mg/dL Glucose (74-99) mg/dL POC Glucose (mg/dL) 210 H 204 H (75-99) mg/dL Calcium (8.4-10.2) mg/dL Total Bilirubin (0.2-1.3) mg/dL AST (17-59) U/L ALT (4-49) U/L Alkaline Phosphatase (38-126) U/L Total Protein (6.3-8.2) g/dL Albumin (3.5-5.0) g/dL Procalcitonin (0.02-0.09) ng/mL Urine Protein (Negative) Urine Blood (Negative) Ur Leukocyte Esterase (Negative) Urine RBC (0-5) /hpf Urine WBC (0-5) /hpf Amorphous Sediment (None) /hpf Urine Mucus (None) /hpf 11/15/19 11/15/19 11/15/19 Range/Units 04:05 04:08 05:27 WBC (3.8-10.6) k/uL RBC (4.30-5.90) m/uL Hgb (13.0-17.5) gm/dL Hct (39.0-53.0) % RDW (11.5-15.5) % Neutrophils # (1.3-7.7) k/uL Monocytes # (0-1.0) k/uL Eosinophils # (0-0.7) k/uL ABG pH 7.47 H (7.35-7.45) ABG pCO2 32 L (35-45) mmHg ABG pO2 80 L (83-108) mmHg Chloride 108 H (98-107) mmol/L BUN 35 H (9-20) mg/dL Creatinine 1.27 H (0.66-1.25) mg/dL Glucose 181 H (74-99) mg/dL POC Glucose (mg/dL) 213 H (75-99) mg/dL Calcium 7.7 L (8.4-10.2) mg/dL Total Bilirubin 1.4 H (0.2-1.3) mg/dL AST 478 H (17-59) U/L ALT 1301 H (4-49) U/L Alkaline Phosphatase 167 H (38-126) U/L Total Protein 4.5 L (6.3-8.2) g/dL Albumin 2.5 L (3.5-5.0) g/dL Procalcitonin (0.02-0.09) ng/mL Urine Protein (Negative) Urine Blood (Negative) Ur Leukocyte Esterase (Negative) Urine RBC (0-5) /hpf Urine WBC (0-5) /hpf Amorphous Sediment (None) /hpf Urine Mucus (None) /hpf 11/15/19 11/15/19 Range/Units 07:53 11:20 WBC (3.8-10.6) k/uL RBC (4.30-5.90) m/uL Hgb (13.0-17.5) gm/dL Hct (39.0-53.0) % RDW (11.5-15.5) % Neutrophils # (1.3-7.7) k/uL Monocytes # (0-1.0) k/uL Eosinophils # (0-0.7) k/uL ABG pH (7.35-7.45) ABG pCO2 (35-45) mmHg ABG pO2 (83-108) mmHg Chloride (98-107) mmol/L BUN (9-20) mg/dL Creatinine (0.66-1.25) mg/dL Glucose (74-99) mg/dL POC Glucose (mg/dL) 193 H 160 H (75-99) mg/dL Calcium (8.4-10.2) mg/dL Total Bilirubin (0.2-1.3) mg/dL AST (17-59) U/L ALT (4-49) U/L Alkaline Phosphatase (38-126) U/L Total Protein (6.3-8.2) g/dL Albumin (3.5-5.0) g/dL Procalcitonin (0.02-0.09) ng/mL Urine Protein (Negative) Urine Blood (Negative) Ur Leukocyte Esterase (Negative) Urine RBC (0-5) /hpf Urine WBC (0-5) /hpf Amorphous Sediment (None) /hpf Urine Mucus (None) /hpf Microbiology - Last 24 Hours (Table) 11/13/19 12:30 Gram Stain - Final Sputum Sputum Culture - Final 11/13/19 06:56 Urine Culture - Final Urine,Catheterized 11/10/19 21:15 Blood Culture - Preliminary Blood No Growth after 96 hours 11/12/19 14:40 Blood Culture - Preliminary Blood No Growth after 48 hours 11/12/19 14:40 Blood Culture - Preliminary Blood No Growth after 48 hours Assessment and Plan Assessment: Impression: Coronary artery disease and non-ST elevation myocardial infarction status post CABG 5, postoperative day #7 Postoperative respiratory failure requiring reintubation mostly because of progressive lactic acidosis and metabolic acidosis with hypotension and evidence of pulmonary edema. Not expected. Exact etiology is not clear, antibiotics were given empirically. Cultures have all been negative. Altered mental status most likely secondary to metabolic encephalopathy CT of the brain showed patchy periventricular and deep white matter changes, subacute ischemia is not entirely ruled out. New onset atrial fibrillation and RVR. Expected. Type 2 diabetes. Peripheral vessel occlusive disease with prior peripheral stent placement. Moderate severe COPD FEV1 of 60% at baseline. History of marijuana smoking. Acute kidney injury and acute shock liver secondary to hypotension, improving slowly. History of bladder cancer and previous radiation/chemotherapy with subsequent surgery. Recommendation: Continue ventilatory support, patient is not ready for weaning. Failed sedation holiday trial. Continue norepinephrine and titrate accordingly. Continue empiric antibiotics/Zosyn. Continue Lasix 40 mg IV push every 12 hours. Continue aspirin and Plavix and statin. Continue sugar control/insulin drip. Continue sedation/propofol. And daily sedation holidays. Continue enteral feeding via Dobbhoff tube. Continue to monitor renal functioning and liver function on a daily basis. Clearly not ready for any weaning trials at this point. Discussed condition with thoracic surgery on the case. We'll continue to follow. Critical care time is 35 minutes Time with Patient: Greater than 30
[2019-11-15] MEDS: CEFEPIME 2 GM in SODIUM CHLORIDE 0.9% 100 ML IVPB SCH ×2 (13:50→20:01)
--- NOTE | 2019-11-15 13:50 | P.PN ---
Subjective Progress Note Date: 11/15/19 Principal diagnosis: Patient is a [id number] male was recently discharged from the hospital came back in with the chest pain pressure-like sensation lasted for a few hours nonexertional did have elevated troponins. Patient had a triple-vessel disease patient is scheduled to undergo coronary artery bypass grafting on Friday went home started smoking again started having chest pain. Chest x-ray was read as pulmonary edema. It is not elevated patient clinically doesn't have any JVD or crackles or wheezing. 11/09/2019 Patient is status post CABG he was extubated the last night. Patient is presently on norepinephrine, milrinone, IV insulin. Patient still has a [place]- Juni in place most of the management is being done by cardiac thoracic surgery patient was bit confused earlier today doing well now. 11/10/2019 Patient is still confused as per the family his confusion is better patient is a low-grade fever probably because of atelectasis a lot and blood cultures. Patient received Lasix for pulmonary edema, patient's mediastinal chest use with remote patient still has left pleural chest tubes Review of systems: Unable to obtain as patient is tired and sleepy All inpatient medications were reviewed and appropriate changes in these medications as dictated in the interval history and assessment and plan. 11/11/2019 Patient is seen and evaluated and follow-up currently remains in the ICU and is being closely monitored. Since hemoglobin was found to be 6.7 this morning and is currently receiving 1 unit of PRBCs. Potassium is 4.4, creatinine is 1.09, magnesium is 2.3. Patient went into atrial fibrillation with RVR and is being maintained on amiodarone drip and will transition to oral medications. Patient continues to have chest tubes along with indwelling Junior catheter which shows some hematuria as patient pulled it out. Patient has been afebrile with intermittent low-grade temps 99.7F and white count today is 14.1. Patient remains on an insulin drip and will continue at this time. Will continue to follow along closely with cardio thoracic surgery. 11/12/2019 Patient is seen and evaluated and follow-up continues to be closely monitored in the ICU. Patient is currently restless and seems to be having some shortness of breath. Patient is placed on nasal cannula although was mouth breathing and is currently on 5 L of oxygen. Patient was on insulin drip which has been discontinued and patient will be continued on sliding scale as patient now has a diet ordered although isn't eating very much. Patient continues to be confused and not following commands. Patient had a chest x-ray today status post chest tube removal showing no evidence of residual pneumothorax. Patient underwent brain CT yesterday showing patchy periventricular and deep white matter changes, left greater than right that have progressed since 01/19/2019 with demyelinating disease or other infectious inflammatory etiologies are possible, and no acute intracranial hemorrhage or midline shift noted. 11/13/2019 Patient became to Make and found to have metabolic acidosis with respiratory compensation progressively got fatigued event into respiratory failure subsequently intubated patient received the bicarbonate infusion for severe metabolic acidosis and patient had lactic acidosis with the lactic acid going up to 11 which came down to 1.5 patient is also started on pressor support with Levophed on mechanical ventilator with tidal volume of 450 set up respiratory of 24 FiO2 of 50% PEEP of 5 urine output is fairly. Chest x-ray showing mild pulmonary vascular congestion with the pleural effusions bilaterally 11/14/2019 Patient the did not tolerate weaning trial. Patient remains on ventilatory support. Patient is a one dose of vancomycin patient is presently on IV Zosyn for fevers although etiology of fevers is not clear at this time. Patient blood sugars are high receiving 3 units every 4 hours as per sliding scale patient wi ll be started on long-acting insulin 15 units and continue with sliding scale Review of systems: Unable to obtain as patient is tired and sleepy All inpatient medications were reviewed and appropriate changes in these medications as dictated in the interval history and assessment and plan. 11/15/2019 Patient is seen and evaluated and follow-up and currently remains in the ICU on mechanical ventilation and is being closely monitored. Patient continues to have a Dobbhoff for nutrition and remains on long-acting Levemir 15 units at bed along with sliding scale and will continue at this time. Patient is currently maintained on IV vancomycin along with Zosyn and infectious disease has been consulted. Patient is afebrile for 24 hours. White blood count is trending down and is currently 15.3 today. Objective - Vital Signs Vital signs: Vital Signs Temp 98.6 F 11/15/19 04:00 Pulse 66 11/15/19 08:30 Resp 23 11/15/19 07:00 BP 106/61 11/15/19 06:00 Pulse Ox 100 11/15/19 07:00 Intake & Output 11/14/19 11/15/19 11/15/19 18:59 06:59 18:59 Intake Total 5705.561 9709.261 90 Output Total 1605 860 50 Balance 43.355 881.261 40 Weight 95 kg Intake: IV 652 782 36 D5-0.45% NaCl with KCl 350 360 30 20Meq/l 1,000 ml @ 30 mls /hr IV .Q24H [facility] Rx#: [id number] Normal Saline Pressure 72 72 6 Bag Piperacillin-Tazobactam 3 200 100 .375 gm In Sodium Chloride 0.9% 100 ml @ 25 mls/hr IVPB Q8HR [facility] Rx# :[id number] Sodium Chloride 0.9% 1, 30 000 ml @ 30 mls/hr IV . Q24H [facility] Rx#:[id number] Vancomycin 1,500 mg In 250 Sodium Chloride 0.9% 250 ml @ 125 mls/hr IVPB Q16H [facility] Rx#:[id number] Intake, IV Titration 533.355 339.261 0 Amount Norepinephrine 4 mg In 83.355 38.324 0 Sodium Chloride 0.9% 250 ml @ 0.05 MCG/KG/MIN 16. 078 mls/hr IV .[id number] [facility] Rx#:[id number] Propofol 1,000 mg In 200.000 300.937 Empty Bag 1 bag @ Titrate IV .Q0M [facility] Rx#: [id number] Vancomycin 1,500 mg In 250 Sodium Chloride 0.9% 250 ml @ 125 mls/hr IVPB Q16H [facility] Rx#:[id number] Tube Feeding 400 560 54 Other 63 60 Output: Urine 1605 860 50 Other: Voiding Method Indwelling Catheter Indwelling Catheter ABP, PAP, CO, CI - Last Documented Arterial Blood Pressure 117/50 Pulmonary Artery Pressure 30/17 Cardiac Output 4.5 Cardiac Index 2.3 - Exam GENERAL: Patient is intubated and sedated HEENT: Pupils are round and equally reacting to light. EOMI. No scleral icterus. No conjunctival pallor. Normocephalic, atraumatic. No pharyngeal erythema. No thyromegaly. triple lumen IJ Noted on the right CARDIOVASCULAR: S1 and S2 present. No murmurs, rubs, or gallops. PULMONARY: Diminished breath sounds bilaterally, no wheezing or crackles. ABDOMEN: Soft, nontender, nondistended, normoactive bowel sounds. No palpable organomegaly. MUSCULOSKELETAL: No joint swelling or deformity. EXTREMITIES: No cyanosis, clubbing, or pedal edema. NEUROLOGICAL: He is sedated on propofol drip SKIN: No rashes. - Labs CBC & Chem 7: 11/15/19 04:05 11/15/19 04:05 Labs: Abnormal Lab Results - Last 24 Hours (Table) 11/14/19 11/14/19 11/14/19 Range/Units 10:20 12:03 17:00 WBC (3.8-10.6) k/uL RBC (4.30-5.90) m/uL Hgb (13.0-17.5) gm/dL Hct (39.0-53.0) % RDW (11.5-15.5) % Neutrophils # (1.3-7.7) k/uL Monocytes # (0-1.0) k/uL Eosinophils # (0-0.7) k/uL ABG pH (7.35-7.45) ABG pCO2 (35-45) mmHg ABG pO2 (83-108) mmHg Chloride (98-107) mmol/L BUN (9-20) mg/dL Creatinine (0.66-1.25) mg/dL Glucose (74-99) mg/dL POC Glucose (mg/dL) 214 H 196 H (75-99) mg/dL Calcium (8.4-10.2) mg/dL Total Bilirubin (0.2-1.3) mg/dL AST (17-59) U/L ALT (4-49) U/L Alkaline Phosphatase (38-126) U/L Total Protein (6.3-8.2) g/dL Albumin (3.5-5.0) g/dL Urine Protein Trace H (Negative) Urine Blood Large H (Negative) Ur Leukocyte Esterase Moderate H (Negative) Urine RBC >182 H (0-5) /hpf Urine WBC 9 H (0-5) /hpf Amorphous Sediment Rare H (None) /hpf Urine Mucus Rare H (None) /hpf 11/14/19 11/14/19 11/15/19 Range/Units 20:29 23:52 04:05 WBC 15.3 H (3.8-10.6) k/uL RBC 2.51 L (4.30-5.90) m/uL Hgb 7.9 L (13.0-17.5) gm/dL Hct 24.4 L (39.0-53.0) % RDW 15.7 H (11.5-15.5) % Neutrophils # 11.2 H (1.3-7.7) k/uL Monocytes # 1.2 H (0-1.0) k/uL Eosinophils # 1.2 H (0-0.7) k/uL ABG pH (7.35-7.45) ABG pCO2 (35-45) mmHg ABG pO2 (83-108) mmHg Chloride (98-107) mmol/L BUN (9-20) mg/dL Creatinine (0.66-1.25) mg/dL Glucose (74-99) mg/dL POC Glucose (mg/dL) 210 H 204 H (75-99) mg/dL Calcium (8.4-10.2) mg/dL Total Bilirubin (0.2-1.3) mg/dL AST (17-59) U/L ALT (4-49) U/L Alkaline Phosphatase (38-126) U/L Total Protein (6.3-8.2) g/dL Albumin (3.5-5.0) g/dL Urine Protein (Negative) Urine Blood (Negative) Ur Leukocyte Esterase (Negative) Urine RBC (0-5) /hpf Urine WBC (0-5) /hpf Amorphous Sediment (None) /hpf Urine Mucus (None) /hpf 11/15/19 11/15/19 11/15/19 Range/Units 04:05 04:08 05:27 WBC (3.8-10.6) k/uL RBC (4.30-5.90) m/uL Hgb (13.0-17.5) gm/dL Hct (39.0-53.0) % RDW (11.5-15.5) % Neutrophils # (1.3-7.7) k/uL Monocytes # (0-1.0) k/uL Eosinophils # (0-0.7) k/uL ABG pH 7.47 H (7.35-7.45) ABG pCO2 32 L (35-45) mmHg ABG pO2 80 L (83-108) mmHg Chloride 108 H (98-107) mmol/L BUN 35 H (9-20) mg/dL Creatinine 1.27 H (0.66-1.25) mg/dL Glucose 181 H (74-99) mg/dL POC Glucose (mg/dL) 213 H (75-99) mg/dL Calcium 7.7 L (8.4-10.2) mg/dL Total Bilirubin 1.4 H (0.2-1.3) mg/dL AST 478 H (17-59) U/L ALT 1301 H (4-49) U/L Alkaline Phosphatase 167 H (38-126) U/L Total Protein 4.5 L (6.3-8.2) g/dL Albumin 2.5 L (3.5-5.0) g/dL Urine Protein (Negative) Urine Blood (Negative) Ur Leukocyte Esterase (Negative) Urine RBC (0-5) /hpf Urine WBC (0-5) /hpf Amorphous Sediment (None) /hpf Urine Mucus (None) /hpf 11/15/19 11/15/19 Range/Units 07:53 11:20 WBC (3.8-10.6) k/uL RBC (4.30-5.90) m/uL Hgb (13.0-17.5) gm/dL Hct (39.0-53.0) % RDW (11.5-15.5) % Neutrophils # (1.3-7.7) k/uL Monocytes # (0-1.0) k/uL Eosinophils # (0-0.7) k/uL ABG pH (7.35-7.45) ABG pCO2 (35-45) mmHg ABG pO2 (83-108) mmHg Chloride (98-107) mmol/L BUN (9-20) mg/dL Creatinine (0.66-1.25) mg/dL Glucose (74-99) mg/dL POC Glucose (mg/dL) 193 H 160 H (75-99) mg/dL Calcium (8.4-10.2) mg/dL Total Bilirubin (0.2-1.3) mg/dL AST (17-59) U/L ALT (4-49) U/L Alkaline Phosphatase (38-126) U/L Total Protein (6.3-8.2) g/dL Albumin (3.5-5.0) g/dL Urine Protein (Negative) Urine Blood (Negative) Ur Leukocyte Esterase (Negative) Urine RBC (0-5) /hpf Urine WBC (0-5) /hpf Amorphous Sediment (None) /hpf Urine Mucus (None) /hpf Microbiology - Last 24 Hours (Table) 11/13/19 12:30 Gram Stain - Final Sputum Sputum Culture - Final 11/13/19 06:56 Urine Culture - Final Urine,Catheterized 11/10/19 21:15 Blood Culture - Preliminary Blood No Growth after 96 hours 11/12/19 14:40 Blood Culture - Preliminary Blood No Growth after 48 hours 11/12/19 14:40 Blood Culture - Preliminary Blood No Growth after 48 hours Assessment and Plan Assessment: -Acute non-ST elevation myocardial infarction: Coronary artery diseasepatient is status post five-vessel coronary artery bypass grafting, patient is presently on aspirin and statin, And Norepinephrine -Acute respiratory failure hypoxic, patient had metabolic acidosis probably due to decreased organ perfusion presently intubated and sedated -New onset paroxysmal atrial fibrillation with RVR, Presently rate controlled, Currently on aspirin and Plavix and subcu heparin -Leukocytosis reactive because of patient's lactic Acidosis and overall clinical condition patient is on empiric antibiotic with Zosyn And vancomycin With source of infection Etiology unclear. Infectious disease consulted. -Possible congestive heart failure chronic diastolic dysfunction with acute exacerbation. Initiating IV Lasix 40 mg IV push every 12 hours. Today's chest x- ray showing some redemonstration of vascular congestion and small bilateral pleural effusions -Low-grade fever probably because of atelectasis, improving -Hypertension -Hyperlipidemia -Type 2 diabetes mellitus, and is on sliding scale every 6 hourly, adding long- acting insulin 15 units -COPD without any acute exacerbation -Severe peripheral vascular disease -History of bladder cancer status post chemotherapy and radiation - nicotine use and marijuana use
--- NOTE | 2019-11-15 14:47 | P.PN ---
Subjective This is Amber Patel PA-C dictating a progress note on this patient The patient was interviewed and examined by me as well as by Dr. Dinh Case discussed with Dr. Dinh and he agrees with the plan of care HPI/interval history Patient is a 64-year-old male with symptomatic multivessel CAD status post previous stenting, hypertension, dyslipidemia, smoker, COPD, carotid stenosis, PA-C status post atherectomy and PTCA, diabetes who underwent CABG 5 with GR to the LAD, left radial artery to the OM, reverse saphenous to posterior lateral coronary artery, saphenous to the first and second diagonal and left atrial appendage ligation. He is postop day #7 currently. Postoperatively he developed bradycardia and hypotension as well as hypoxic respiratory failure requiring reintubation. He currently remains intubated in the ICU. Still requiring low dose of pressors. He is currently in sinus rhythm. He still has the epicardial pacemaker wires in place connected to a backup generator at VVI 50. EXAMINATION Patient is afebrile, pulse in the 60s, respirations 22, blood pressure 106/61, oxygen saturation 100% on mechanical ventilation Patient seen and examined in the ICU, sedated and intubated Breath sounds equal bilaterally Heart is regular, no audible murmurs Extremities warm no edema Abdomen soft REVIEW OF LABS, ECG WBC 15.3, hemoglobin 7.9, platelets 176, potassium 3.9, BUN 35, creatinine 1.27, AST 478, ALT 1301, alkaline phosphatase 167 Echocardiogram shows EF 50-55, no pericardial effusion IMPRESSION / ASSESSMENT: #1 symptomatic multivessel CAD recent non-STEMI status post 5 vessel CABG, postop day #7 #2 history of hypertension, currently hypotensive requiring pressors #3 sinus bradycardia, currently in sinus rhythm, beta blockers currently on hold #4 post operative atrial fibrillation, currently in sinus rhythm #5 dyslipidemia #6 smoker #7 COPD #8 carotid artery stenosis #9 PAD status post atherectomy and POST MANAGER #10 diabetes #11 postoperative hypoxic respiratory failure requiring reintubation PLAN: Continue amiodarone Continue statins Hold off on anticoagulation Continue holding beta blockers, try to wean off pressors and then will initiate beta blockers after he is stable off pressors Objective - Vital Signs Vital signs: Vital Signs Temp 98.6 F 11/15/19 04:00 Pulse 64 11/15/19 11:48 Resp 23 11/15/19 07:00 BP 106/61 11/15/19 06:00 Pulse Ox 100 11/15/19 07:00 Intake & Output 11/14/19 11/15/19 11/15/19 18:59 06:59 18:59 Intake Total 6321.594 9213.261 294.181 Output Total 1605 860 50 Balance 43.355 881.261 244.181 Weight 95 kg 95 kg Intake: IV 652 782 36 D5-0.45% NaCl with KCl 350 360 30 20Meq/l 1,000 ml @ 30 mls /hr IV .Q24H [facility] Rx#: [id number] Normal Saline Pressure 72 72 6 Bag Piperacillin-Tazobactam 3 200 100 .375 gm In Sodium Chloride 0.9% 100 ml @ 25 mls/hr IVPB Q8HR [facility] Rx# :[id number] Sodium Chloride 0.9% 1, 30 000 ml @ 30 mls/hr IV . Q24H [facility] Rx#:[id number] Vancomycin 1,500 mg In 250 Sodium Chloride 0.9% 250 ml @ 125 mls/hr IVPB Q16H [facility] Rx#:[id number] Intake, IV Titration 533.355 339.261 204.181 Amount Norepinephrine 4 mg In 83.355 38.324 4.181 Sodium Chloride 0.9% 250 ml @ 0.05 MCG/KG/MIN 16. 078 mls/hr IV .[id number] [facility] Rx#:[id number] Propofol 1,000 mg In 200.000 300.937 200 Empty Bag 1 bag @ Titrate IV .Q0M [facility] Rx#: [id number] Vancomycin 1,500 mg In 250 Sodium Chloride 0.9% 250 ml @ 125 mls/hr IVPB Q16H [facility] Rx#:[id number] Tube Feeding 400 560 54 Other 63 60 Output: Urine 1605 860 50 Other: Voiding Method Indwelling Catheter Indwelling Catheter ABP, PAP, CO, CI - Last Documented Arterial Blood Pressure 117/50 Pulmonary Artery Pressure 30/17 Cardiac Output 4.5 Cardiac Index 2.3 - Labs CBC & Chem 7: 11/15/19 04:05 11/15/19 04:05 Labs: Abnormal Lab Results - Last 24 Hours (Table) 11/14/19 11/14/19 11/14/19 Range/Units 04:20 10:20 17:00 WBC (3.8-10.6) k/uL RBC (4.30-5.90) m/uL Hgb (13.0-17.5) gm/dL Hct (39.0-53.0) % RDW (11.5-15.5) % Neutrophils # (1.3-7.7) k/uL Monocytes # (0-1.0) k/uL Eosinophils # (0-0.7) k/uL ABG pH (7.35-7.45) ABG pCO2 (35-45) mmHg ABG pO2 (83-108) mmHg Chloride (98-107) mmol/L BUN (9-20) mg/dL Creatinine (0.66-1.25) mg/dL Glucose (74-99) mg/dL POC Glucose (mg/dL) 196 H (75-99) mg/dL Calcium (8.4-10.2) mg/dL Total Bilirubin (0.2-1.3) mg/dL AST (17-59) U/L ALT (4-49) U/L Alkaline Phosphatase (38-126) U/L Total Protein (6.3-8.2) g/dL Albumin (3.5-5.0) g/dL Procalcitonin 0.99 H (0.02-0.09) ng/mL Urine Protein Trace H (Negative) Urine Blood Large H (Negative) Ur Leukocyte Esterase Moderate H (Negative) Urine RBC >182 H (0-5) /hpf Urine WBC 9 H (0-5) /hpf Amorphous Sediment Rare H (None) /hpf Urine Mucus Rare H (None) /hpf 11/14/19 11/14/19 11/15/19 Range/Units 20:29 23:52 04:05 WBC 15.3 H (3.8-10.6) k/uL RBC 2.51 L (4.30-5.90) m/uL Hgb 7.9 L (13.0-17.5) gm/dL Hct 24.4 L (39.0-53.0) % RDW 15.7 H (11.5-15.5) % Neutrophils # 11.2 H (1.3-7.7) k/uL Monocytes # 1.2 H (0-1.0) k/uL Eosinophils # 1.2 H (0-0.7) k/uL ABG pH (7.35-7.45) ABG pCO2 (35-45) mmHg ABG pO2 (83-108) mmHg Chloride (98-107) mmol/L BUN (9-20) mg/dL Creatinine (0.66-1.25) mg/dL Glucose (74-99) mg/dL POC Glucose (mg/dL) 210 H 204 H (75-99) mg/dL Calcium (8.4-10.2) mg/dL Total Bilirubin (0.2-1.3) mg/dL AST (17-59) U/L ALT (4-49) U/L Alkaline Phosphatase (38-126) U/L Total Protein (6.3-8.2) g/dL Albumin (3.5-5.0) g/dL Procalcitonin (0.02-0.09) ng/mL Urine Protein (Negative) Urine Blood (Negative) Ur Leukocyte Esterase (Negative) Urine RBC (0-5) /hpf Urine WBC (0-5) /hpf Amorphous Sediment (None) /hpf Urine Mucus (None) /hpf 11/15/19 11/15/19 11/15/19 Range/Units 04:05 04:08 05:27 WBC (3.8-10.6) k/uL RBC (4.30-5.90) m/uL Hgb (13.0-17.5) gm/dL Hct (39.0-53.0) % RDW (11.5-15.5) % Neutrophils # (1.3-7.7) k/uL Monocytes # (0-1.0) k/uL Eosinophils # (0-0.7) k/uL ABG pH 7.47 H (7.35-7.45) ABG pCO2 32 L (35-45) mmHg ABG pO2 80 L (83-108) mmHg Chloride 108 H (98-107) mmol/L BUN 35 H (9-20) mg/dL Creatinine 1.27 H (0.66-1.25) mg/dL Glucose 181 H (74-99) mg/dL POC Glucose (mg/dL) 213 H (75-99) mg/dL Calcium 7.7 L (8.4-10.2) mg/dL Total Bilirubin 1.4 H (0.2-1.3) mg/dL AST 478 H (17-59) U/L ALT 1301 H (4-49) U/L Alkaline Phosphatase 167 H (38-126) U/L Total Protein 4.5 L (6.3-8.2) g/dL Albumin 2.5 L (3.5-5.0) g/dL Procalcitonin (0.02-0.09) ng/mL Urine Protein (Negative) Urine Blood (Negative) Ur Leukocyte Esterase (Negative) Urine RBC (0-5) /hpf Urine WBC (0-5) /hpf Amorphous Sediment (None) /hpf Urine Mucus (None) /hpf 11/15/19 11/15/19 Range/Units 07:53 11:20 WBC (3.8-10.6) k/uL RBC (4.30-5.90) m/uL Hgb (13.0-17.5) gm/dL Hct (39.0-53.0) % RDW (11.5-15.5) % Neutrophils # (1.3-7.7) k/uL Monocytes # (0-1.0) k/uL Eosinophils # (0-0.7) k/uL ABG pH (7.35-7.45) ABG pCO2 (35-45) mmHg ABG pO2 (83-108) mmHg Chloride (98-107) mmol/L BUN (9-20) mg/dL Creatinine (0.66-1.25) mg/dL Glucose (74-99) mg/dL POC Glucose (mg/dL) 193 H 160 H (75-99) mg/dL Calcium (8.4-10.2) mg/dL Total Bilirubin (0.2-1.3) mg/dL AST (17-59) U/L ALT (4-49) U/L Alkaline Phosphatase (38-126) U/L Total Protein (6.3-8.2) g/dL Albumin (3.5-5.0) g/dL Procalcitonin (0.02-0.09) ng/mL Urine Protein (Negative) Urine Blood (Negative) Ur Leukocyte Esterase (Negative) Urine RBC (0-5) /hpf Urine WBC (0-5) /hpf Amorphous Sediment (None) /hpf Urine Mucus (None) /hpf Microbiology - Last 24 Hours (Table) 11/13/19 12:30 Gram Stain - Final Sputum Sputum Culture - Final 11/13/19 06:56 Urine Culture - Final Urine,Catheterized 11/10/19 21:15 Blood Culture - Preliminary Blood No Growth after 96 hours 11/12/19 14:40 Blood Culture - Preliminary Blood No Growth after 48 hours 11/12/19 14:40 Blood Culture - Preliminary Blood No Growth after 48 hours
[2019-11-15 16:57] LABS: Glucose,Whole Blood 171 mg/dL (75-99)
--- NOTE | 2019-11-15 17:01 | P.PN ---
Progress Note - Text Progress Note Date: 11/15/19 The patient remains on ventilator. He is on hemodialysis stable. His white count is decreased to 15,000. On exam vital signs are stable. Abdomen soft. There is no significant tenderness. Probable reactive leukocytosis after prolonged hypotension. Patient's liver enzymes have improved. There appears to be no obvious abdominal pathology. He'll be observed closely.
[2019-11-15] MEDS: NOREPINEPHRINE 4 MG in SODIUM CHLORIDE 0.9% 250 ML IV SCH (18:27)
[2019-11-15 19:56] LABS: Glucose,Whole Blood 205 mg/dL (75-99)
[2019-11-15] MEDS: INSULIN DETEMIR (LEVEMIR) 100 UNIT/ML SYR SQ SCH (20:02)
[2019-11-15] MEDS: SENNOSIDES-DOCUSATE SODIUM 1 EACH TAB PO SCH (20:02)
[2019-11-15] MEDS: FUROSEMIDE 10 MG/ML 4 ML VIAL IV SCH (20:02)
[2019-11-16 00:03] LABS: Glucose,Whole Blood 204 mg/dL (75-99)
[2019-11-16] MEDS: INSULIN ASPART (NovoLOG) 100 UNIT/ML VIAL SQ SCH ×10 (00:06→23:56)
--- NOTE | 2019-11-16 00:06 | P.CONS ---
History of Present Illness - Reason for Consult Consult date: 11/15/19 Leukocytosis Requesting physician: Shay Beyer - Chief Complaint Unresponsive on the vent x few days - History of Present Illness Patient is 64-year-old male with a past medical history significant for coronary disease admitted hospital with my noticed to have multivessel disease and this patient is status post coronary bypass 5 on 11/08/2019 patient has been in the hospital post surgery and was initially extubated however on Friday, November 11 the patient did went to respiratory distress and has to be intubated patient also have a Junior catheter since his surgery and apparently the patient seemed have a problem with it is not draining at the patient was not emptying his bladder completely and has to be taken out with reinsertion patient has been noticed to have slowly worsening of his white count which was up to 19,000 yesterday patient has been empirically treated with the Zosyn and vancomycin was added yesterday patient white count is currently trending down to 15,000 today patient has been afebrile throughout his hospital stay the patient is currently intubated on the vent and FiO2 is currently stable and no significant purulent secretion through the ET has been reported by nursing staff or any diarrhea no other changes reported in the history is limited as the patient is currently on the vent most information has been obtained from review the chart and talking to nursing staff Review of Systems Positive points has been mentioned in HPI complete review could not be obtained because of his underlying mental status Past Medical History Past Medical History: Coronary Artery Disease (CAD), Cancer, Chest Pain / Angina, Diabetes Mellitus, Hypertension, Myocardial Infarction (AL), Skin Disorder Additional Past Medical History / Comment(s): Intermittent BILATERAL CLAUDICATION & NEW OCCURRENCE OF LEFT PLANTAR FASCITIS (DIFFICULT TO WALK). Hx of bladder ca with surgery, psoriases,eczema, hiatal hernia, umbilical hernia, kidney stones 2004. Last Myocardial Infarction Date:: 2015 History of Any Multi-Drug Resistant Organisms: None Reported Past Surgical History: Heart Catheterization With Stent Additional Past Surgical History / Comment(s): 10/20/15 last CARDIAC STENT-has had several previous cardiac stents, vasectomy, bladder sx x2 to remove tumors. L femoral artherectomy/STENT TO LT common ILIAC artery, 05/22/16 R femoral/popliteal atherectomy with PTBA/stent, angiograms, aortogram with run off. Past Anesthesia/Blood Transfusion Reactions: No Reported Reaction Additional Past Anesthesia/Blood Transfusion Reaction / Comm: CLAUSTROPHOBIC IN LARGE CROWDS Date of Last Stent Placement:: 10/20/15 Past Psychological History: No Psychological Hx Reported - Past Family History Father Family Medical History: Myocardial Infarction (AL) Additional Family Medical History / Comment(s): PT'S DAD WHEN PT WAS AGE 4 he believes from a myocardial infarction. Mother Family Medical History: Diabetes Mellitus, Hyperlipidemia, Hypertension, Vascular Disorder Medications and Allergies Home Medications Medication Instructions Recorded Confirmed Type Cholecalciferol [Vitamin D3 (25 1,000 unit PO DAILY #0 11/01/19 11/07/19 History Mcg = 1000 Iu)] Multivitamins, Thera [Multivitamin 1 tab PO DAILY 11/01/19 11/07/19 History (formulary)] Phytonadione (Vit K1) [Vitamin K-1] 100 mcg PO DAILY #0 11/01/19 11/07/19 History Turmeric Root Extract [Turmeric] 500 mg PO DAILY #0 11/01/19 11/07/19 History Aspirin 81 mg PO DAILY #30 chew 11/04/19 11/07/19 Rx Atorvastatin [Lipitor] 80 mg PO DAILY #30 tab 11/04/19 11/07/19 Rx Isosorbide Mononitrate ER [Imdur] 30 mg PO DAILY #30 tab.er.24h 11/04/19 11/07/19 Rx Metoprolol Tartrate [Lopressor] 25 mg PO BID #60 tab 11/04/19 11/07/19 Rx Nitroglycerin Sl Tabs [Nitrostat] 0.4 mg SUBLINGUAL Q5M PRN #30 tab 11/04/19 11/07/19 Rx metFORMIN HCL ER [Glucophage Xr] 500 mg PO BID #60 tab 11/04/19 11/07/19 Rx Ascorbic Acid [Vitamin C] 500 mg PO DAILY 11/05/19 11/07/19 History Cinnamon Bark [Cinnamon] 500 mg PO DAILY 11/05/19 11/07/19 History Carol Brasher Supplement 1 tab PO DAILY 11/05/19 11/07/19 History Milk Thistle 150 mg PO DAILY 11/05/19 11/07/19 History Saw Smoaks 500 mg PO DAILY 11/07/19 11/07/19 History Allergies Allergy/AdvReac Type Severity Reaction Status Date / Time ragweed pollen Allergy Unknown Verified 11/07/19 08:45 Physical Exam Vitals: Vital Signs Temp Pulse Resp BP Pulse Ox 11/15/19 08:30 66 11/15/19 08:09 67 11/15/19 07:00 71 23 100 11/15/19 06:00 66 22 106/61 100 11/15/19 05:00 72 26 H 100 11/15/19 04:00 98.6 F 67 23 100 11/15/19 03:00 74 22 99 11/15/19 02:00 67 23 106/61 100 11/15/19 01:00 67 19 106/61 100 11/15/19 00:00 99.0 F 67 17 106/61 100 11/14/19 23:13 70 22 106/61 99 11/14/19 23:00 70 20 106/61 100 11/14/19 22:00 71 21 106/61 100 11/14/19 21:00 68 24 100 11/14/19 20:15 72 11/14/19 20:04 69 11/14/19 20:00 98.6 F 70 20 106/61 100 11/14/19 19:00 66 20 106/61 100 11/14/19 18:00 70 21 106/61 100 11/14/19 17:00 82 29 H 106/61 100 11/14/19 16:28 71 11/14/19 16:21 67 11/14/19 16:00 98.6 F 70 22 106/61 100 11/14/19 15:00 70 21 106/61 100 11/14/19 14:00 64 19 100 11/14/19 13:00 70 21 100 11/14/19 12:01 84 11/14/19 12:00 98.6 F 80 30 H 99 11/14/19 11:50 77 11/14/19 11:00 65 21 100 Intake and Output 11/14/19 11/15/19 11/15/19 22:59 06:59 14:59 Intake Total 533.050 9621.578 90 Output Total 610 645 50 Balance 322.388 621.578 40 Intake: IV 388 638 36 D5-0.45% NaCl with KCl 240 240 30 20Meq/l 1,000 ml @ 30 mls /hr IV .Q24H [facility] Rx#: [id number] Normal Saline Pressure 48 48 6 Bag Piperacillin-Tazobactam 3 100 100 .375 gm In Sodium Chloride 0.9% 100 ml @ 25 mls/hr IVPB Q8HR [facility] Rx# :[id number] Vancomycin 1,500 mg In 250 Sodium Chloride 0.9% 250 ml @ 125 mls/hr IVPB Q16H [facility] Rx#:[id number] Intake, IV Titration 164.388 198.578 0 Amount Norepinephrine 4 mg In 23.705 38.324 0 Sodium Chloride 0.9% 250 ml @ 0.05 MCG/KG/MIN 16. 078 mls/hr IV .[id number] [facility] Rx#:[id number] Propofol 1,000 mg In 140.683 160.254 Empty Bag 1 bag @ Titrate IV .Q0M [facility] Rx#: [id number] Tube Feeding 320 400 54 Other 60 30 Output: Urine 610 645 50 Other: Voiding Method Indwelling Catheter Indwelling Catheter Weight 95 kg ABP, PAP, CO, CI - Last 8 Hours Arterial Blood Pressure 117/50 Arterial Blood Pressure 110/48 Arterial Blood Pressure 129/52 Arterial Blood Pressure 127/61 Arterial Blood Pressure 117/49 GENERAL DESCRIPTION: Elderly male intubated on the vent. No tachypnea or accessory muscle of respiration use. HEENT: Shows Pallor , no scleral icterus. Oral mucous membrane is dry. No pharyngeal erythema or thrush NECK: Trachea central, no thyromegaly. LUNGS: Unlabored breathing. Decreased breath sounds at the base. No wheeze or crackle. HEART: S1, S2, regular rate and rhythm. No loud murmur ABDOMEN: Soft, no tenderness , guarding or rigidity, no organomegaly EXTREMITIES: No edema of feet. SKIN: No rash, no masses palpable. NEUROLOGICAL: The patient is sedated on the vent. Results CBC & Chem 7: 11/15/19 04:05 11/15/19 04:05 Labs: Abnormal Lab Results - Last 24 Hours (Table) 11/14/19 11/14/19 11/14/19 Range/Units 10:20 12:03 17:00 WBC (3.8-10.6) k/uL RBC (4.30-5.90) m/uL Hgb (13.0-17.5) gm/dL Hct (39.0-53.0) % RDW (11.5-15.5) % Neutrophils # (1.3-7.7) k/uL Monocytes # (0-1.0) k/uL Eosinophils # (0-0.7) k/uL ABG pH (7.35-7.45) ABG pCO2 (35-45) mmHg ABG pO2 (83-108) mmHg Chloride (98-107) mmol/L BUN (9-20) mg/dL Creatinine (0.66-1.25) mg/dL Glucose (74-99) mg/dL POC Glucose (mg/dL) 214 H 196 H (75-99) mg/dL Calcium (8.4-10.2) mg/dL Total Bilirubin (0.2-1.3) mg/dL AST (17-59) U/L ALT (4-49) U/L Alkaline Phosphatase (38-126) U/L Total Protein (6.3-8.2) g/dL Albumin (3.5-5.0) g/dL Urine Protein Trace H (Negative) Urine Blood Large H (Negative) Ur Leukocyte Esterase Moderate H (Negative) Urine RBC >182 H (0-5) /hpf Urine WBC 9 H (0-5) /hpf Amorphous Sediment Rare H (None) /hpf Urine Mucus Rare H (None) /hpf 11/14/19 11/14/19 11/15/19 Range/Units 20:29 23:52 04:05 WBC 15.3 H (3.8-10.6) k/uL RBC 2.51 L (4.30-5.90) m/uL Hgb 7.9 L (13.0-17.5) gm/dL Hct 24.4 L (39.0-53.0) % RDW 15.7 H (11.5-15.5) % Neutrophils # 11.2 H (1.3-7.7) k/uL Monocytes # 1.2 H (0-1.0) k/uL Eosinophils # 1.2 H (0-0.7) k/uL ABG pH (7.35-7.45) ABG pCO2 (35-45) mmHg ABG pO2 (83-108) mmHg Chloride (98-107) mmol/L BUN (9-20) mg/dL Creatinine (0.66-1.25) mg/dL Glucose (74-99) mg/dL POC Glucose (mg/dL) 210 H 204 H (75-99) mg/dL Calcium (8.4-10.2) mg/dL Total Bilirubin (0.2-1.3) mg/dL AST (17-59) U/L ALT (4-49) U/L Alkaline Phosphatase (38-126) U/L Total Protein (6.3-8.2) g/dL Albumin (3.5-5.0) g/dL Urine Protein (Negative) Urine Blood (Negative) Ur Leukocyte Esterase (Negative) Urine RBC (0-5) /hpf Urine WBC (0-5) /hpf Amorphous Sediment (None) /hpf Urine Mucus (None) /hpf 11/15/19 11/15/19 11/15/19 Range/Units 04:05 04:08 05:27 WBC (3.8-10.6) k/uL RBC (4.30-5.90) m/uL Hgb (13.0-17.5) gm/dL Hct (39.0-53.0) % RDW (11.5-15.5) % Neutrophils # (1.3-7.7) k/uL Monocytes # (0-1.0) k/uL Eosinophils # (0-0.7) k/uL ABG pH 7.47 H (7.35-7.45) ABG pCO2 32 L (35-45) mmHg ABG pO2 80 L (83-108) mmHg Chloride 108 H (98-107) mmol/L BUN 35 H (9-20) mg/dL Creatinine 1.27 H (0.66-1.25) mg/dL Glucose 181 H (74-99) mg/dL POC Glucose (mg/dL) 213 H (75-99) mg/dL Calcium 7.7 L (8.4-10.2) mg/dL Total Bilirubin 1.4 H (0.2-1.3) mg/dL AST 478 H (17-59) U/L ALT 1301 H (4-49) U/L Alkaline Phosphatase 167 H (38-126) U/L Total Protein 4.5 L (6.3-8.2) g/dL Albumin 2.5 L (3.5-5.0) g/dL Urine Protein (Negative) Urine Blood (Negative) Ur Leukocyte Esterase (Negative) Urine RBC (0-5) /hpf Urine WBC (0-5) /hpf Amorphous Sediment (None) /hpf Urine Mucus (None) /hpf 11/15/19 Range/Units 07:53 WBC (3.8-10.6) k/uL RBC (4.30-5.90) m/uL Hgb (13.0-17.5) gm/dL Hct (39.0-53.0) % RDW (11.5-15.5) % Neutrophils # (1.3-7.7) k/uL Monocytes # (0-1.0) k/uL Eosinophils # (0-0.7) k/uL ABG pH (7.35-7.45) ABG pCO2 (35-45) mmHg ABG pO2 (83-108) mmHg Chloride (98-107) mmol/L BUN (9-20) mg/dL Creatinine (0.66-1.25) mg/dL Glucose (74-99) mg/dL POC Glucose (mg/dL) 193 H (75-99) mg/dL Calcium (8.4-10.2) mg/dL Total Bilirubin (0.2-1.3) mg/dL AST (17-59) U/L ALT (4-49) U/L Alkaline Phosphatase (38-126) U/L Total Protein (6.3-8.2) g/dL Albumin (3.5-5.0) g/dL Urine Protein (Negative) Urine Blood (Negative) Ur Leukocyte Esterase (Negative) Urine RBC (0-5) /hpf Urine WBC (0-5) /hpf Amorphous Sediment (None) /hpf Urine Mucus (None) /hpf Microbiology - Last 24 Hours (Table) 11/13/19 12:30 Gram Stain - Final Sputum Sputum Culture - Final 11/13/19 06:56 Urine Culture - Final Urine,Catheterized 11/10/19 21:15 Blood Culture - Preliminary Blood No Growth after 96 hours 11/12/19 14:40 Blood Culture - Preliminary Blood No Growth after 48 hours 11/12/19 14:40 Blood Culture - Preliminary Blood No Growth after 48 hours Assessment and Plan Assessment: 1- patient with leukocytosis in this patient who did have a coronary bypass grafting subsequently did have a respiratory failure requiring intubation on the vent and also have problem with his Junior catheter that has to be reinserted with current UA has been significantly positive patient chest is more of a fluid overload pattern for consultation and no significant purulent secretion through the endotracheal tube making pneumonia to be less likely but cannot entirely excluded also have elevated liver enzymes that remained to be investigated further however could be more likely related to passive congestion of the liver from cardiac etiology (1) Leukocytosis Current Visit: Yes Status: Acute Code(s): D72.829 - ELEVATED WHITE BLOOD CELL COUNT, UNSPECIFIED SNOMED Code(s): 368466939 (2) Urinary tract infection Current Visit: Yes Status: Acute Code(s): N39.0 - URINARY TRACT INFECTION, SITE NOT SPECIFIED SNOMED Code(s): 26449429 (3) Elevated liver enzymes Current Visit: Yes Status: Acute Code(s): R74.8 - ABNORMAL LEVELS OF OTHER SERUM ENZYMES SNOMED Code(s): 641873446 Plan: 1- Vancomycin pharmacy to dose target trough of 15 while watching his kidney function and Vanco trough closely 2- discontinue Zosyn to decrease risk of nephrotoxicity and add cefepime 3- check an ultrasound of the liver and gallbladder area We will follow on clinical condition and cultures to further adjust medication if needed Thank you for this consultation will follow this patient with you Time with Patient: Greater than 30
[2019-11-16 04:17] LABS: Glucose,Whole Blood 193 mg/dL (75-99)
[2019-11-16] MEDS: NOREPINEPHRINE 4 MG in SODIUM CHLORIDE 0.9% 250 ML IV SCH ×2 (04:20→16:39)
[2019-11-16 04:39] LABS: Albumin 2.5 g/dL (3.5-5.0); Calcium 7.7 mg/dL (8.4-10.2); Potassium 3.8 mmol/L (3.5-5.1); Total Bilirubin 1.1 mg/dL (0.2-1.3); Total Protein 4.7 g/dL (6.3-8.2)
[2019-11-16 04:43] LABS: Basophils % (A) 0 %; Eosinophils # (A) 0.9 k/uL (0-0.7); Eosinophils % (A) 6 %; HCT 24.3 % (39.0-53.0); HGB 7.9 gm/dL (13.0-17.5); Hypochromasia Slight; Lymphocytes # (A) 1.3 k/uL (1.0-4.8); Lymphocytes % (A) 9 %; MCHC 32.5 g/dL (31.0-37.0); MCV 98.5 fL (80.0-100.0); Macrocytosis Slight; Mean Platelet Volume 9.6; Monocytes # (A) 0.9 k/uL (0-1.0); Monocytes % (A) 6 %; Neutrophils # (A) 11.7 k/uL (1.3-7.7); Neutrophils % (A) 77 %; Platelet Count 181 k/uL (150-450); RBC 2.47 m/uL (4.30-5.90); RDW 15.8 % (11.5-15.5); WBC 15.2 k/uL (3.8-10.6)
[2019-11-16] MEDS ORDERED: POTASSIUM BICARBONATE/CIT AC 20 MEQ TABLET.EFF NG-TUBE SCH (05:00)
[2019-11-16] MEDS: HEPARIN SODIUM,PORCINE 5,000 UNIT/ML 1 ML VIAL SQ SCH ×3 (05:29→21:43)
[2019-11-16] MEDS: ASCORBIC ACID 500 MG TAB PO SCH ×2 (06:29→17:43)
[2019-11-16] MEDS: FERROUS SULFATE 325 MG TAB PO SCH ×2 (06:29→17:22)
[2019-11-16] MEDS: PANTOPRAZOLE 40 MG TABLET PO SCH (06:29)
[2019-11-16 07:58] LABS: Glucose,Whole Blood 191 mg/dL (75-99)
[2019-11-16] MEDS: IPRATROPIUM-ALBUTEROL 3 ML NEB INHALATION SCH ×4 (08:05→19:37)
[2019-11-16 08:09] LABS: ABG Base Excess 1.5 mmol/L; ABG HCO3 25 mmol/L (21-25); ABG Oxygen Saturation 97.7 % (94-97); ABG PCO2 34 mmHg (35-45); ABG PH 7.48 (7.35-7.45); ABG PO2 94 mmHg (83-108); ABG TCO2 26 mmol/L (19-24)
[2019-11-16 08:10] LABS: Allen Test Performed? no
--- NOTE | 2019-11-16 08:22 | P.PN ---
Subjective Progress Note Date: 11/16/19 Principal diagnosis: Symptomatic multivessel coronary artery disease, unstable angina, status post subendocardial myocardial infarction. Previous medical history of CAD with previous stent placement to the proximal circumflex and ostial OM1, hypertension, hyperlipidemia, chronic ongoing tobacco dependence, mild COPD with preoperative FEV1 60% of predicted, right internal carotid artery stenosis 50- 69%, peripheral arterial disease with previous arthrectomy and RETAIL SUPPORT SPECIALIST of the left SFA, atherectomy and RETAIL SUPPORT SPECIALIST of the left ELECTRIC MOTOR REPAIRMAN, with stenting of the left BRIAN, poorly controlled type 2 diabetes with preoperative hemoglobin A1c 9.1%, bladder cancer status post chemo and radiation, occasional marijuana use, medication noncompliance, and family history of premature coronary artery disease POD #8 CABG 5 with GR to the LAD, left radial artery to the obtuse marginal, reverse saphenous vein to the posterior lateral, sequential saphenous vein to the first and second diagonal performed on cardiopulmonary bypass with beating heart. Endoscopic vein harvest of the left greater saphenous vein from the ankle to the groin. Endoscopic harvest of the left radial artery. Epi-aortic ultrasound and ligation of left atrial appendage with 40 mm AtriCure clip Postoperative acute blood loss anemia, expected outcome given cardiopulmonary bypass and hemodilution Postoperative encephalopathy, unexpected but potential outcome given cardiopulmonary bypass and intraoperative cardiac arrest Postoperative new onset paroxysmal Afib with RVR, unexpected Postoperative acute hypoxemic respiratory failure requiring reintubation, secondary to metabolic acidosis and hypotension. This patient is currently intubated and sedated in the intensive care unit. Currently, he is sedated with 50 mcg/kg/hr of Propofol with mechanical ventilation. Off sedation yesterday and patient followed simple commands. Weaning trial attempted yesterday and failed secondary to tachypnea. Will reattempt today. The endotracheal tube is 23cm at the lip with ventilator settings of AC 16, TV 450, FiO2 40%, PEEP 5. Morning ABGs pending. The patient is hemodynamically stable, Norepinephrine drip was turned off at 2357 11/15/19. Newman catheter remains in place for strict I&O, nursing reports having to flush newman occasionally to allow urine to drain. Dobbhoff feeding tube in place with Vital HP at 54 ml/hr with 30 mL water flush [id number]. Objective - Vital Signs Vital signs: Vital Signs Temp 99.3 F 11/16/19 04:00 Pulse 77 11/16/19 07:00 Resp 22 07/21/20 07:00 BP 106/61 11/15/19 21:00 Pulse Ox 100 11/16/19 07:00 Intake & Output 11/15/19 11/16/19 11/16/19 18:59 06:59 18:59 Intake Total 0089.054 9960.800 65 Output Total 1535 2180 30 Balance -134.394 -736.200 35 Weight 95 kg 92.9 kg Intake: IV 202 207 11 .9NS @ 5ml/hr 35 5 Cefepime 2 gm In Sodium 100 Chloride 0.9% 100 ml @ 200 mls/hr IVPB Q12HR [facility] Rx#:[id number] D5-0.45% NaCl with KCl 30 20Meq/l 1,000 ml @ 30 mls /hr IV .Q24H [facility] Rx#: [id number] Normal Saline Pressure 72 72 6 Bag Piperacillin-Tazobactam 3 100 .375 gm In Sodium Chloride 0.9% 100 ml @ 25 mls/hr IVPB Q8HR [facility] Rx# :[id number] Intake, IV Titration 400.606 498.800 Amount Cefepime 2 gm In Sodium 100 Chloride 0.9% 100 ml @ 200 mls/hr IVPB Q12HR [facility] Rx#:[id number] Norepinephrine 4 mg In 4.181 126.375 Sodium Chloride 0.9% 250 ml @ 0.05 MCG/KG/MIN 16. 078 mls/hr IV .[id number] [facility] Rx#:[id number] Propofol 1,000 mg In 296.425 372.425 Empty Bag 1 bag @ Titrate IV .Q0M [facility] Rx#: [id number] Tube Feeding 648 648 54 Other 150 90 Output: Urine 1535 2180 30 Other: Voiding Method Indwelling Catheter Indwelling Catheter ABP, PAP, CO, CI - Last Documented Arterial Blood Pressure 146/61 Pulmonary Artery Pressure 30/17 Cardiac Output 4.5 Cardiac Index 2.3 - Exam The patient is sedated on propofol at 50 mcg/kg/min, moves all extremities with stimulation. - EENT Eyes: Present: PERRLA - Respiratory Details: Lung sounds course in all lung gruber, diminished in bilateral bases. No wheezes or rhonchi. Respirations symmetrical and nonlabord on mechanical support. Cream colored secretions. O2 saturation 100% on current ventilator settings. - Cardiovascular Details: Regular rate and rhythm, S1 and S2 present. no murmur. Sinus Rhythm on monitor, rate 80s. AV wires to genarator, AAI backup of 50. Right radial arterial line in place, Right IJ central line inplace, transduced to CVP, 2 left midline IVs intact. - Gastrointestinal Gastrointestinal Comment(s): Abdomen is soft, and nondistended. Bowel sounds present in all 4 abdominal quadrants. Dobbhoff tube in place with vital high-protein infusing ankle rate of 54 mL per hour with 30 mL every 4 hours of water flushes. Last documented B owel movement 11/13/19 - Genitourinary Genitourinary Comment(s): Newman catheter in place for strict I&O. Draining yellowish/rachana, clear. Nursing reporting to have to occasionally flush catheter to drain properly. - Integumentary Integumentary Comment(s): Skin is warm and dry. No clubbing or cyanosis is present. Midline sternal incision is clean, dry and approximated. No drainage or redness is present. Gauze dressing is clean, dry and intact. Left arm radial harvest sites are clean, dry and approximated. No drainage or redness is present. Left lower extremity EVH site is clean, dry and approximated. No drainage or redness is present. Small scattered ecchymotic areas to his left thigh and left forearm. Soft to touch. Positive ulnar pulse to his left arm. - Musculoskeletal Musculoskeletal Comment(s): Unable to fully assess, patient is currently sedated on Propofol drip. Moves all extremities with stimulation. - Allied health notes Allied health notes reviewed: nursing - Labs CBC & Chem 7: 11/16/19 04:16 11/16/19 04:16 Labs: Abnormal Lab Results - Last 24 Hours (Table) 11/14/19 11/15/19 11/15/19 Range/Units 04:20 07:53 11:20 WBC (3.8-10.6) k/uL RBC (4.30-5.90) m/uL Hgb (13.0-17.5) gm/dL Hct (39.0-53.0) % RDW (11.5-15.5) % Neutrophils # (1.3-7.7) k/uL Eosinophils # (0-0.7) k/uL Chloride (98-107) mmol/L BUN (9-20) mg/dL Glucose (74-99) mg/dL POC Glucose (mg/dL) 193 H 160 H (75-99) mg/dL Calcium (8.4-10.2) mg/dL AST (17-59) U/L ALT (4-49) U/L Alkaline Phosphatase (38-126) U/L Total Protein (6.3-8.2) g/dL Albumin (3.5-5.0) g/dL Procalcitonin 0.99 H (0.02-0.09) ng/mL 11/15/19 11/15/19 11/16/19 Range/Units 16:56 19:55 00:02 WBC (3.8-10.6) k/uL RBC (4.30-5.90) m/uL Hgb (13.0-17.5) gm/dL Hct (39.0-53.0) % RDW (11.5-15.5) % Neutrophils # (1.3-7.7) k/uL Eosinophils # (0-0.7) k/uL Chloride (98-107) mmol/L BUN (9-20) mg/dL Glucose (74-99) mg/dL POC Glucose (mg/dL) 171 H 205 H 204 H (75-99) mg/dL Calcium (8.4-10.2) mg/dL AST (17-59) U/L ALT (4-49) U/L Alkaline Phosphatase (38-126) U/L Total Protein (6.3-8.2) g/dL Albumin (3.5-5.0) g/dL Procalcitonin (0.02-0.09) ng/mL 11/16/19 11/16/19 11/16/19 Range/Units 04:16 04:16 04:16 WBC 15.2 H (3.8-10.6) k/uL RBC 2.47 L (4.30-5.90) m/uL Hgb 7.9 L (13.0-17.5) gm/dL Hct 24.3 L (39.0-53.0) % RDW 15.8 H (11.5-15.5) % Neutrophils # 11.7 H (1.3-7.7) k/uL Eosinophils # 0.9 H (0-0.7) k/uL Chloride 108 H (98-107) mmol/L BUN 33 H (9-20) mg/dL Glucose 165 H (74-99) mg/dL POC Glucose (mg/dL) 193 H (75-99) mg/dL Calcium 7.7 L (8.4-10.2) mg/dL AST 225 H (17-59) U/L ALT 935 H (4-49) U/L Alkaline Phosphatase 188 H (38-126) U/L Total Protein 4.7 L (6.3-8.2) g/dL Albumin 2.5 L (3.5-5.0) g/dL Procalcitonin (0.02-0.09) ng/mL Microbiology - Last 24 Hours (Table) 11/10/19 21:15 Blood Culture - Preliminary Blood No Growth after 120 hours 11/12/19 14:40 Blood Culture - Preliminary Blood No Growth after 72 hours 11/12/19 14:40 Blood Culture - Preliminary Blood No Growth after 72 hours 11/13/19 12:30 Gram Stain - Final Sputum Sputum Culture - Final - Imaging and Cardiology Chest x-ray: report reviewed, image reviewed US - abdomen: pending Assessment and Plan Assessment: 1. Symptomatic multivessel coronary artery disease, recent non-STEMI, status post 5 vessel CABG 2. Leukocytosis, maybe multifactoral, positive UTI. Blood, sputum, urine cultures negative to date although drawn after antibiotics started. 3. Previous stent placement to the proximal circumflex and ostial OM1 4. History of hypertension 5. History of hyperlipidemia 6. Chronic ongoing tobacco dependence 7. Mild COPD, preoperative FEV1 60% of predicted value 8. Right internal carotid artery stenosis 50-69%. 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 9. History of peripheral arterial disease with previous arthrectomy and RETAIL SUPPORT SPECIALIST of the left SFA and atherectomy and RETAIL SUPPORT SPECIALIST of the left ELECTRIC MOTOR REPAIRMAN with stenting of the left BRIAN 10. Poorly controlled diabetes mellitus type 2 with hyperglycemia, admission hemoglobin A1c 9.1% 11. History of bladder cancer status post radiation, chemotherapy treatment and bladder surgery 12. Occasional marijuana use 13. Medication noncompliance 14. Family history of early onset coronary artery disease 15. Postoperative acute blood loss anemia, expected 16. Postoperative encephalopathy, unexpected 17. Mild ISAAC, resolving, creatinine yesterday 1.27, today 1.09 18. New onset Afib with RVR, status post left atrial appendage ligation, currently Sinus Rhythm 19. New onset hematuria from patient pulling at newman catheter 20. Postoperative acute hypoxic respiratory failure requiring reintubation, secondary to metabolic acidosis and hypotension 21. Elevated transaminase levels, shock liver, secondary to hypotension, trending down Plan: 1. Continue aspirin, Plavix and statin. 2. Continue amiodorone for atrial fibrillation prophylaxis. Parameters placed on the amiodarone per cardiology recommendations to hold for heart rate less than 70. 3. Continue to hold beta gaurav, Cardizem and Cozaar due to his bradycardia and hypotension. Will reassess and add as tolerated. 4. Keep Newman catheter in place for accurate I&O. Newman catheter was changed on 11/14/2019. 5. Add Flomax as there looks like there may be urinary retention. 6. Mechanical ventilator management per pulmonary critical care medicine. 7. Wean Diprivan as tolerated. Will exchange consultant to Precedex if patient remains agitated with diprivan decrease. 8. Will monitor daily labs and chest x-rays. Elective replacement per protocol. 9. Continue Tylenol for pain management, hold narcotics and toradol. 10. GI/DVT prophylaxis. 11. Insulin management per primary care service. 12. Continue 40 mg Lasix q12 13. Keep Dobbhoff tube in place for tube feeding. Currently infusing at goal rate of 54 mL per hour. 14. Continue to avoid nephrotoxic agents. 15. Keep atrial and ventricular epicardial pacemaker wires in place and connected to a backup pacemaker generator with a AAI of 50. 16. Reorient as necessary. 17. Continue to appreciate infectious disease recs for elevated WBC count and antibiotic management. 18. More recommendations to follow based on patient's clinical course.
[2019-11-16] MEDS: ASPIRIN 325 MG TAB PO SCH (08:39)
[2019-11-16] MEDS: NYSTATIN 100,000 UNIT/ML SUSP 500,000 UNIT/5 ML CUP PO SCH ×4 (08:39→21:43)
[2019-11-16] MEDS: CHLORHEXIDINE GLUCONATE 15 ML CUP MUCOUS MEM SCH ×2 (08:39→20:00)
[2019-11-16] MEDS: CLOPIDOGREL 75 MG TAB PO SCH (08:39)
[2019-11-16] MEDS: AMIODARONE 200 MG TAB PO SCH ×2 (08:39→20:00)
[2019-11-16] MEDS: CEFEPIME 2 GM in SODIUM CHLORIDE 0.9% 100 ML IVPB SCH ×2 (08:39→20:00)
[2019-11-16] MEDS: ATORVASTATIN 40 MG TAB PO SCH (08:39)
[2019-11-16] MEDS: FUROSEMIDE 10 MG/ML 4 ML VIAL IV SCH ×2 (08:40→20:00)
--- NOTE | 2019-11-16 09:04 | XR ---
EXAMINATION TYPE: XR chest 1V portable DATE OF EXAM: 11/16/2019 COMPARISON: Chest radiograph 11/15/2019 HISTORY: Tube placement TECHNIQUE: Single frontal semiupright portable view of the chest is obtained. FINDINGS: A right-sided internal jugular central venous catheter distal tip overlies the right atriu m, unchanged. Endotracheal tube distal tip again overlies the level of the clavicular heads. Nonvisua lization of the tip of the enteric tube. Left atrial appendage clip and sternotomy wires. Cardiomegal y and mediastinal silhouette unchanged. Pulmonary vascular congestion and [id number] bilateral pleural effusions appears similar given differences in technique. No evidence of pneumothorax. IMPRESSION: Radiographic appearance of the chest not significantly changed.
[2019-11-16] MEDS: VANCOMYCIN 1,500 MG in SODIUM CHLORIDE 0.9% 250 ML IVPB SCH (09:56)
--- NOTE | 2019-11-16 11:56 | P.PN ---
Progress Note - Text Progress Note Date: 11/16/19 The patient remains clinic stable. White count 15,000. On exam patient's undeveloped. Vital signs are stable. Abdomen soft without any significant tenderness. No evidence of abdominal pathology. Patient to receive supportive care. No surgical intervention is planned.
[2019-11-16 12:11] LABS: Glucose,Whole Blood 197 mg/dL (75-99)
--- NOTE | 2019-11-16 12:52 | US ---
EXAMINATION TYPE: US abdomen complete DATE OF EXAM: 11/16/2019 COMPARISON: Ultrasound kidneys 08/12/2014 CLINICAL HISTORY: leukocytosis , elevated LFT. EXAM MEASUREMENTS: Liver Length: 18.8 cm Gallbladder Wall: 0.3 cm CBD: 0.4 cm Spleen: 10.4 cm Right Kidney: 13.3 x 4.8 x 6.6 cm Left Kidney: 11.8 x 5.3 x 6.7 cm Technically difficult study performed portably on ICU patient status post surgery with abdominal cavi ty obscured due to overlying bandages. Pancreas: Obscured by bowel gas. Liver: Limited in visualization. No evidence of focal lesion of the visualized portions. Gallbladder: The presumed area of the gallbladder demonstrates no evidence of cholelithiasis, wall t hickening, or pericholecystic fluid. This structure is not confirmed of the gallbladder due to inabil ity to roll patient or have patient's taken a breath. CBD: Normal. No extrahepatic or visualized intrahepatic biliary ductal dilatation. Spleen: Not enlarged. Right Kidney: No hydronephrosis. Left Kidney: No hydronephrosis. Upper IVC: Normal. Other: Small right pleural effusion. IMPRESSION: 1. Limited examination of the abdomen due to overlying bandages and bowel gas. Visualized portions o f the liver demonstrate no evidence of intrahepatic or extrahepatic biliary ductal dilatation. 2. Small right pleural effusion.
--- NOTE | 2019-11-16 13:10 | US ---
EXAMINATION TYPE: US chest DATE OF EXAM: 11/16/2019 COMPARISON: NONE CLINICAL HISTORY: Markings for thoracentesis by pulmonary staff. Intubated ICU patient that was chall enging to image TECHNIQUE: Targeted ultrasound of the posterior lower bilateral EXAM MEASUREMENTS: Right Pleural Effusion pocket size: 2.3 cm Left Pleural Effusion pocket size: 1.6 cm Due to patients inability to sit upright, with hold help, we were able to find a small scanning are a to obtain our images. Effusions bilaterally are small in size and not marked. Right side NOT marked Left side NOT marked Pulmonologists are able to review the images in the patient?s EMR. IMPRESSIONS: Small bilateral pleural effusions. No site marking was performed.
--- NOTE | 2019-11-16 13:23 | P.PN ---
Subjective Progress Note Date: 11/16/19 Principal diagnosis: Coronary artery disease and non-ST elevation myocardial infarction, status post 5 vessel bypass surgery postoperative day #8 This is a 64-year-old male patient with coronary artery disease, noncompliant to medication. The patient came in with subendocardial infarction and cardiac catheterization showed diffuse coronary artery disease with critical stenosis. The patient underwent coronary artery bypass today. The patient underwent bypass 5 with GR to LAD, radial artery graft to acute marginal, saphenous finger after 2 posterior lateral and sick ration saphenous vein to first and second diagonal performed on cardiac pulmonary bypass with beating heart. On 11/13/2019, the patient is being seen for a follow-up. The patient had significant events on the second day post extubation and all of these events were noted and I was able to participate in his care as the patient's condition got worse yesterday afternoon. The patient became progressively more tachypneic and his blood gases was repeated and it was noted that the patient had signifi cant amount of metabolic acidosis with respiratory compensation. Ultimately, the patient became progressively more fatigued and went into respiratory failure. He became briefly hypoxic and had a bout of bradycardia and his blood pressure also subsequently dropped. At that point, the patient was started immediately on fluid resuscitation. Lasix was already discontinued. During the process, the patient received a total of 500 mL of albumin 5% 3, received bicarb infusion on multiple occasions total of 4 episodes of sodium bicarb was given for severe metabolic acidosis. Note that his lactic acid level was as high as 11. Following that, the patient was placed on a sodium bicarb infusion with 150 mEq of sodium bicarbonate there was running at 75 mL an hour. Lactic acid level came from 11.8 down to 1.5. He had to be intubated and placed on a mechanical ventilator. He was also requiring pressors with was running as high as 3 g per minute and currently is off the pressors. This morning, the patient is on a mechanical ventilator on assist control mode at the rate of 24 with a ti belkys volume of 450 and an FiO2 of 50% with a PEEP of 5. Urine output is order of 20-40 mL an hour. The blood gases from today showed a pH of 7.53 with a pCO2 of 31 and pO2 of 145. The chest x-ray shows some mild pulmonary vascular congestion and some subpulmonic pleural effusions bilaterally. The patient is well sedated with propofol and the patient is calm and comfortable. He is afebrile. As for the blood work, the white cell causative 18.7. The creatinine came up to 1.6 and currently is down to 1.4. The serum bicarbs at 28. Note that the chest tubes are already out for now. The patient has a Junior catheter in place and urine output has been approximately 240 mL's over the past 8 hours. The atrial and ventricular epicardial pacemaker wires remain in place. The bedside pacemaker generator is on a AAI mode with a rate of 70 and the underlying rhythm is sinus bradycardia. The patient has no other arrhythmias noted. On 11/14/2019, the patient is being seen for a follow-up in the intensive care unit. The patient remains sedated and the patient is calm comfortable on propof ol at 40 g per KG per minute. Noted the patient remains on a mechanical ventilator. The ventilator today is set at a tidal volume of 450 with a rate of 16 FiO2 of 40% with a PEEP of 5. Blood gas show a pH of 7.48 with a pCO2 of 32 and pO2 of 114. Chest x-ray showing bilateral pleural effusion which is gotten slightly worse compared to yesterday. The patient remains having a lower CVP of 6. Cardiac rhythm is sinus. The patient is receiving vital high protein at the rate of 30 mL's an hour. The patient is also on D5 half-normal saline running at 30 mL an hour. White cell count is elevated. Nevertheless the lactic acidosis improved. The patient was receiving IV Zosyn and dose of vancomycin was also given by cardiothoracic surgery. Creatinine is still elevated at 1.46. Hemoglobin stable at 7.7. The patient is arousable. The patient was taken off sedation and took approximately 4 hours for him to wake up and follows some simple commands. Nevertheless, he became tachypneic and his progress and we had to abort the sedation holiday. He is producing adequate amount of urine output. He was given a dose of Lasix earlier by the surgical team and the patient was thought to be in some fluid overload special with development of bilateral pleural effusions. No other significant events otherwise for now. Patient was reevaluated today on 11/15/19, remains in the ICU, intubated and mechanically ventilated. His ventilator settings are assist control rate of 16 tidal volume is 450 FiO2 is 40% PEEP is 5. ABG showed a pO2 of 80 pCO2 of 32 pH of 7.47. Patient is status post CABG 5, postoperative day #7. He remains on norepinephrine at 0.03 mcg/kg/m, propofol at 50 mcg/kg/m. Chest x-ray is clearly showing evidence of pulmonary edema, difficult to rule out underlying pn eumonia, but this is felt to be less likely. Patient was given a sedation holiday today, and could not be tolerated, patient was extremely tachypneic and tachycardic off sedation. Patient has a Dobbhoff tube in place, and he is on enteral feeding. Feeding is at goal. Today after evaluating the patient, and recommended Lasix at 40 mg IV push every 12 hours, chest x-ray is clearly consistent with pulmonary edema. Electrolytes unremarkable, BUN is 35 creatinine is 1.27, improved compared to the last few days. Liver enzymes are abnormal, patient apparently had what seemed to be a shocked liver. Patient was reevaluated today on 11/16/19, remains in the ICU, intubated and mechanically ventilated. He is on assist control rate of 16 tidal volume is 450 FiO2 is 40% and PEEP is 5. ABG showed a pO2 of 94 pCO2 of 34 pH of 7.48. Chest x-ray continues to show evidence of pulmonary vascular congestion and small to moderate bilateral pleural effusions. However ultrasound of the chest failed to show significant pleural effusion that would warrant thoracentesis. And no markings were placed. Patient remains on diuretics, Lasix 40 mg IV push every 12 hours. I believe the chest x-ray showed slight improvement compared to yesterday. Patient fluid balance is -870 mL. Liver profile is improving. Patient remains on cefepime and vancomycin. Patient is also on enteral feeding. And he is on propofol at 50 mcg/kg/m. I plan today to at least give the patient a sedation holiday, assess mental status, and possibly assess weaning parameters although the patient is not ready for weaning, ABG remains marginal, and his chest x-ray is quite abnormal. Objective - Vital Signs Vital signs: Vital Signs Temp 98.8 F 11/16/19 12:00 Pulse 73 11/16/19 12:00 Resp 17 11/16/19 12:00 BP 106/61 11/16/19 08:00 Pulse Ox 100 11/16/19 12:00 Intake & Output 11/15/19 11/16/19 11/16/19 18:59 06:59 18:59 Intake Total 4995.087 3315.800 1007.45 Output Total 1535 2180 885 Balance -134.394 -736.200 122.45 Weight 95 kg 92.9 kg Intake: IV 202 207 401 .9NS @ 5ml/hr 35 15 Cefepime 2 gm In Sodium 100 100 Chloride 0.9% 100 ml @ 200 mls/hr IVPB Q12HR [facility] Rx#:[id number] D5-0.45% NaCl with KCl 30 20Meq/l 1,000 ml @ 30 mls /hr IV .Q24H [facility] Rx#: [id number] Normal Saline Pressure 72 72 36 Bag Piperacillin-Tazobactam 3 100 .375 gm In Sodium Chloride 0.9% 100 ml @ 25 mls/hr IVPB Q8HR [facility] Rx# :[id number] Vancomycin 1,500 mg In 250 Sodium Chloride 0.9% 250 ml @ 125 mls/hr IVPB Q16H [facility] Rx#:[id number] Intake, IV Titration 400.606 498.800 162.45 Amount Cefepime 2 gm In Sodium 100 Chloride 0.9% 100 ml @ 200 mls/hr IVPB Q12HR [facility] Rx#:[id number] Norepinephrine 4 mg In 4.181 126.375 Sodium Chloride 0.9% 250 ml @ 0.05 MCG/KG/MIN 16. 078 mls/hr IV .[id number] [facility] Rx#:[id number] Propofol 1,000 mg In 296.425 372.425 162.45 Empty Bag 1 bag @ Titrate IV .Q0M [facility] Rx#: [id number] Tube Feeding 648 648 324 Other 150 90 120 Output: Urine 1535 2180 885 Other: Voiding Method Indwelling Catheter Indwelling Catheter Indwelling Catheter # Bowel Movements 1 ABP, PAP, CO, CI - Last Documented Arterial Blood Pressure 113/51 Pulmonary Artery Pressure 30/17 Cardiac Output 4.5 Cardiac Index 2.3 - Exam Physical Exam: Revealed a 64-year-old white male intubated, mechanically ventilated, sedated, in no distress. Head: Atraumatic, normocephalic, endotracheal tube and Dobbhoff tube are intact. HEENT:[Neck is supple.] [No neck masses.] [No thyromegaly.] [No JVD.] Moist mucous membranes, PERRLA, EOMI, no icterus. Right IJ triple-lumen catheter is noted. Chest: Symmetrical chest expansion, crackles at the bases no rhonchi and no wheezes.] Cardiac Exam: [Normal S1 and S2, no S3 gallop, no murmur.] Abdomen: [Soft, nontender, no megaly, no rebound, no guarding, normal bowel sounds.] Extremities: [No clubbing, no edema, no cyanosis.] Neurological Exam: Could not be assessed, patient is sedated, on propofol drip. Psychiatric: Could not be assessed. Skin: No rashes. Lymphatics: No lymphadenopathy. - Labs CBC & Chem 7: 11/16/19 04:16 11/16/19 04:16 Labs: Abnormal Lab Results - Last 24 Hours (Table) 11/15/19 11/15/19 11/16/19 Range/Units 16:56 19:55 00:02 WBC (3.8-10.6) k/uL RBC (4.30-5.90) m/uL Hgb (13.0-17.5) gm/dL Hct (39.0-53.0) % RDW (11.5-15.5) % Neutrophils # (1.3-7.7) k/uL Eosinophils # (0-0.7) k/uL ABG pH (7.35-7.45) ABG pCO2 (35-45) mmHg ABG Total CO2 (19-24) mmol/L ABG O2 Saturation (94-97) % Chloride (98-107) mmol/L BUN (9-20) mg/dL Glucose (74-99) mg/dL POC Glucose (mg/dL) 171 H 205 H 204 H (75-99) mg/dL Calcium (8.4-10.2) mg/dL AST (17-59) U/L ALT (4-49) U/L Alkaline Phosphatase (38-126) U/L Total Protein (6.3-8.2) g/dL Albumin (3.5-5.0) g/dL 11/16/19 11/16/19 11/16/19 Range/Units 04:16 04:16 04:16 WBC 15.2 H (3.8-10.6) k/uL RBC 2.47 L (4.30-5.90) m/uL Hgb 7.9 L (13.0-17.5) gm/dL Hct 24.3 L (39.0-53.0) % RDW 15.8 H (11.5-15.5) % Neutrophils # 11.7 H (1.3-7.7) k/uL Eosinophils # 0.9 H (0-0.7) k/uL ABG pH (7.35-7.45) ABG pCO2 (35-45) mmHg ABG Total CO2 (19-24) mmol/L ABG O2 Saturation (94-97) % Chloride 108 H (98-107) mmol/L BUN 33 H (9-20) mg/dL Glucose 165 H (74-99) mg/dL POC Glucose (mg/dL) 193 H (75-99) mg/dL Calcium 7.7 L (8.4-10.2) mg/dL AST 225 H (17-59) U/L ALT 935 H (4-49) U/L Alkaline Phosphatase 188 H (38-126) U/L Total Protein 4.7 L (6.3-8.2) g/dL Albumin 2.5 L (3.5-5.0) g/dL 11/16/19 11/16/19 11/16/19 Range/Units 07:57 08:05 12:10 WBC (3.8-10.6) k/uL RBC (4.30-5.90) m/uL Hgb (13.0-17.5) gm/dL Hct (39.0-53.0) % RDW (11.5-15.5) % Neutrophils # (1.3-7.7) k/uL Eosinophils # (0-0.7) k/uL ABG pH 7.48 H (7.35-7.45) ABG pCO2 34 L (35-45) mmHg ABG Total CO2 26 H (19-24) mmol/L ABG O2 Saturation 97.7 H (94-97) % Chloride (98-107) mmol/L BUN (9-20) mg/dL Glucose (74-99) mg/dL POC Glucose (mg/dL) 191 H 197 H (75-99) mg/dL Calcium (8.4-10.2) mg/dL AST (17-59) U/L ALT (4-49) U/L Alkaline Phosphatase (38-126) U/L Total Protein (6.3-8.2) g/dL Albumin (3.5-5.0) g/dL Microbiology - Last 24 Hours (Table) 11/10/19 21:15 Blood Culture - Preliminary Blood No Growth after 120 hours 11/12/19 14:40 Blood Culture - Preliminary Blood No Growth after 72 hours 11/12/19 14:40 Blood Culture - Preliminary Blood No Growth after 72 hours 11/13/19 12:30 Gram Stain - Final Sputum Sputum Culture - Final Assessment and Plan Assessment: Impression: Coronary artery disease and non-ST elevation myocardial infarction status post CABG 5, postoperative day #8 Postoperative respiratory failure requiring reintubation mostly because of progressive lactic acidosis and metabolic acidosis with hypotension and evidence of pulmonary edema. Not expected. Exact etiology is not clear, antibiotics were given empirically. Cultures have all been negative. And they remain negative as of today. Altered mental status most likely secondary to metabolic encephalopathy CT of the brain showed patchy periventricular and deep white matter changes, subacute ischemia is not entirely ruled out. New onset atrial fibrillation and RVR. Expected. Type 2 diabetes. Peripheral vessel occlusive disease with prior peripheral stent placement. Moderate severe COPD FEV1 of 60% at baseline. History of marijuana smoking. Acute kidney injury and acute shock liver secondary to hypotension, improving sl owly. History of bladder cancer and previous radiation/chemotherapy with subsequent surgery. Recommendation: Continue ventilatory support, will try a sedation holiday, assess mental status today. Possibly assess weaning parameters. Patient is now off norepinephrine. Continue empiric antibiotics/Zosyn. Continue Lasix 40 mg IV push every 12 hours. Continue aspirin and Plavix and statin. Continue/insulin drip. Continue sedation/propofol. And daily sedation holidays. Continue enteral feeding via Dobbhoff tube. Continue to monitor renal functioning and liver function on a daily basis. Discussed condition with surgery on the case. We'll continue to follow. Critical care time is 33 minutes Time with Patient: Greater than 30
--- NOTE | 2019-11-16 14:24 | P.PN ---
Subjective This is Amber Patel PA-C dictating a progress note on this patient The patient was interviewed and examined by me as well as by Dr. Dinh Case discussed with Dr. Dinh and he agrees with the plan of care HPI/interval history Patient is a 64-year-old male with symptomatic multivessel CAD status post previous stenting, hypertension, dyslipidemia, smoker, COPD, carotid stenosis, PA-C status post atherectomy and PTCA, diabetes who underwent CABG 5 with GR to the LAD, left radial artery to the OM, reverse saphenous to posterior lateral coronary artery, saphenous to the first and second diagonal and left atrial appendage ligation. He is postop day #7 currently. Postoperatively he developed bradycardia and hypotension as well as hypoxic respiratory failure requiring reintubation. He currently remains intubated in the ICU. Weaning was attempted yesterday but was unsuccessful. He has been weaned off the pressors since last night. He is currently maintaining sinus rhythm. He still has the epicardial pacemaker wires in place connected to a backup generator at VVI 50. EXAMINATION Patient is afebrile, pulse in the 70s, respirations 17, blood pressure 113/51 oxygen saturation 100% on mechanical ventilation Patient seen and examined in the ICU, sedated and intubated Breath sounds equal bilaterally Heart is regular, no audible murmurs Extremities warm no edema Abdomen soft REVIEW OF LABS, ECG WBC 15.2, hemoglobin 7.9, platelets 181, sodium 138, potassium 3.8, BUN 33, creatinine 1.09 AST 225, ALT 935, alk phos 188 Echocardiogram shows EF 50-55, no pericardial effusion IMPRESSION / ASSESSMENT: #1 symptomatic multivessel CAD recent non-STEMI status post 5 vessel CABG, postop day #8 #2 history of hypertension #3 sinus bradycardia, currently in sinus rhythm, beta blockers currently on hold #4 post operative atrial fibrillation, currently in sinus rhythm #5 dyslipidemia #6 smoker #7 COPD #8 carotid artery stenosis #9 PAD status post atherectomy 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 #10 diabetes #11 postoperative hypoxic respiratory failure requiring reintubation PLAN: Continue amiodarone Continue statins Since his hemoglobin is stable consider restarting anticoagulation Monitor blood pressure, consider starting low-dose beta blockers tomorrow if blood pressure remains stable Objective - Vital Signs Vital signs: Vital Signs Temp 98.8 F 11/16/19 12:00 Pulse 73 11/16/19 12:00 Resp 17 11/16/19 12:00 BP 106/61 11/16/19 08:00 Pulse Ox 100 11/16/19 12:00 Intake & Output 11/15/19 11/16/19 11/16/19 18:59 06:59 18:59 Intake Total 1734.624 5641.800 1007.45 Output Total 1535 2180 885 Balance -134.394 -736.200 122.45 Weight 95 kg 92.9 kg Intake: IV 202 207 401 .9NS @ 5ml/hr 35 15 Cefepime 2 gm In Sodium 100 100 Chloride 0.9% 100 ml @ 200 mls/hr IVPB Q12HR [facility] Rx#:[id number] D5-0.45% NaCl with KCl 30 20Meq/l 1,000 ml @ 30 mls /hr IV .Q24H [facility] Rx#: [id number] Normal Saline Pressure 72 72 36 Bag Piperacillin-Tazobactam 3 100 .375 gm In Sodium Chloride 0.9% 100 ml @ 25 mls/hr IVPB Q8HR [facility] Rx# :[id number] Vancomycin 1,500 mg In 250 Sodium Chloride 0.9% 250 ml @ 125 mls/hr IVPB Q16H [facility] Rx#:[id number] Intake, IV Titration 400.606 498.800 162.45 Amount Cefepime 2 gm In Sodium 100 Chloride 0.9% 100 ml @ 200 mls/hr IVPB Q12HR [facility] Rx#:[id number] Norepinephrine 4 mg In 4.181 126.375 Sodium Chloride 0.9% 250 ml @ 0.05 MCG/KG/MIN 16. 078 mls/hr IV .[id number] [facility] Rx#:[id number] Propofol 1,000 mg In 296.425 372.425 162.45 Empty Bag 1 bag @ Titrate IV .Q0M [facility] Rx#: [id number] Tube Feeding 648 648 324 Other 150 90 120 Output: Urine 1535 2180 885 Other: Voiding Method Indwelling Catheter Indwelling Catheter Indwelling Catheter # Bowel Movements 1 ABP, PAP, CO, CI - Last Documented Arterial Blood Pressure 113/51 Pulmonary Artery Pressure 30/17 Cardiac Output 4.5 Cardiac Index 2.3 - Labs CBC & Chem 7: 11/16/19 04:16 07/21/20 04:16 Labs: Abnormal Lab Results - Last 24 Hours (Table) 11/15/19 11/15/19 11/16/19 Range/Units 16:56 19:55 00:02 WBC (3.8-10.6) k/uL RBC (4.30-5.90) m/uL Hgb (13.0-17.5) gm/dL Hct (39.0-53.0) % RDW (11.5-15.5) % Neutrophils # (1.3-7.7) k/uL Eosinophils # (0-0.7) k/uL ABG pH (7.35-7.45) ABG pCO2 (35-45) mmHg ABG Total CO2 (19-24) mmol/L ABG O2 Saturation (94-97) % Chloride (98-107) mmol/L BUN (9-20) mg/dL Glucose (74-99) mg/dL POC Glucose (mg/dL) 171 H 205 H 204 H (75-99) mg/dL Calcium (8.4-10.2) mg/dL AST (17-59) U/L ALT (4-49) U/L Alkaline Phosphatase (38-126) U/L Total Protein (6.3-8.2) g/dL Albumin (3.5-5.0) g/dL 11/16/19 11/16/19 11/16/19 Range/Units 04:16 04:16 04:16 WBC 15.2 H (3.8-10.6) k/uL RBC 2.47 L (4.30-5.90) m/uL Hgb 7.9 L (13.0-17.5) gm/dL Hct 24.3 L (39.0-53.0) % RDW 15.8 H (11.5-15.5) % Neutrophils # 11.7 H (1.3-7.7) k/uL Eosinophils # 0.9 H (0-0.7) k/uL ABG pH (7.35-7.45) ABG pCO2 (35-45) mmHg ABG Total CO2 (19-24) mmol/L ABG O2 Saturation (94-97) % Chloride 108 H (98-107) mmol/L BUN 33 H (9-20) mg/dL Glucose 165 H (74-99) mg/dL POC Glucose (mg/dL) 193 H (75-99) mg/dL Calcium 7.7 L (8.4-10.2) mg/dL AST 225 H (17-59) U/L ALT 935 H (4-49) U/L Alkaline Phosphatase 188 H (38-126) U/L Total Protein 4.7 L (6.3-8.2) g/dL Albumin 2.5 L (3.5-5.0) g/dL 11/16/19 11/16/19 11/16/19 Range/Units 07:57 08:05 12:10 WBC (3.8-10.6) k/uL RBC (4.30-5.90) m/uL Hgb (13.0-17.5) gm/dL Hct (39.0-53.0) % RDW (11.5-15.5) % Neutrophils # (1.3-7.7) k/uL Eosinophils # (0-0.7) k/uL ABG pH 7.48 H (7.35-7.45) ABG pCO2 34 L (35-45) mmHg ABG Total CO2 26 H (19-24) mmol/L ABG O2 Saturation 97.7 H (94-97) % Chloride (98-107) mmol/L BUN (9-20) mg/dL Glucose (74-99) mg/dL POC Glucose (mg/dL) 191 H 197 H (75-99) mg/dL Calcium (8.4-10.2) mg/dL AST (17-59) U/L ALT (4-49) U/L Alkaline Phosphatase (38-126) U/L Total Protein (6.3-8.2) g/dL Albumin (3.5-5.0) g/dL Microbiology - Last 24 Hours (Table) 11/10/19 21:15 Blood Culture - Preliminary Blood No Growth after 120 hours 11/12/19 14:40 Blood Culture - Preliminary Blood No Growth after 72 hours 11/12/19 14:40 Blood Culture - Preliminary Blood No Growth after 72 hours
[2019-11-16 14:56] LABS: Glucose,Whole Blood 163 mg/dL (75-99)
--- NOTE | 2019-11-16 15:19 | PN ---
PROGRESS NOTE DATE OF SERVICE: 11/16/2019 REASON FOR FOLLOWUP: Leukocytosis, possible UTI. INTERVAL HISTORY: Patient is currently afebrile. The patient is hemodynamically stable. FiO2 is currently at 40%. No significant purulent secretions through the ET or diarrhea reported. PHYSICAL EXAMINATION: Blood pressure 113/50 with a pulse of 73, temperature 98.8. She is 100% on 40% FiO2. General description is a middle aged male intubated on the vent. Respiratory system: Unlabored breathing, decreased breath sounds in the base, with no wheeze. Heart S1, S2. Regular rate and rhythm. Abdomen soft, no tenderness. LABS: Hemoglobin 10.8, white count 15.2, BUN of 33, creatinine 1.09. DIAGNOSTIC IMPRESSION AND PLAN: Patient with elevated white count more likely multifactorial. This patient is status post coronary artery bypass grafting, did have respiratory distress requiring re- intubation. Elevated liver enzymes. Ultrasound did not show any specific abnormality. rule out small effusion. Patient is covered with vancomycin to continue while waiting for the culture to finalize. Continue supportive care. MMODL / IJN: [id number] /
--- NOTE | 2019-11-16 15:55 | P.PN ---
Subjective Progress Note Date: 11/16/19 Principal diagnosis: Patient is a [id number] male was recently discharged from the hospital came back in with the chest pain pressure-like sensation lasted for a few hours nonexertional did have elevated troponins. Patient had a triple-vessel disease patient is scheduled to undergo coronary artery bypass grafting on Friday went home started smoking again started having chest pain. Chest x-ray was read as pulmonary edema. It is not elevated patient clinically doesn't have any JVD or crackles or wheezing. 11/09/2019 Patient is status post CABG he was extubated the last night. Patient is presently on norepinephrine, milrinone, IV insulin. Patient still has a [place]- Juni in place most of the management is being done by cardiac thoracic surgery patient was bit confused earlier today doing well now. 11/10/2019 Patient is still confused as per the family his confusion is better patient is a low-grade fever probably because of atelectasis a lot and blood cultures. Patient received Lasix for pulmonary edema, patient's mediastinal chest use with remote patient still has left pleural chest tubes Review of systems: Unable to obtain as patient is tired and sleepy All inpatient medications were reviewed and appropriate changes in these medications as dictated in the interval history and assessment and plan. 11/11/2019 Patient is seen and evaluated and follow-up currently remains in the ICU and is being closely monitored. Since hemoglobin was found to be 6.7 this morning and is currently receiving 1 unit of PRBCs. Potassium is 4.4, creatinine is 1.09, magnesium is 2.3. Patient went into atrial fibrillation with RVR and is being maintained on amiodarone drip and will transition to oral medications. Patient continues to have chest tubes along with indwelling Junior catheter which shows some hematuria as patient pulled it out. Patient has been afebrile with intermittent low-grade temps 99.7F and white count today is 14.1. Patient remains on an insulin drip and will continue at this time. Will continue to follow along closely with cardio thoracic surgery. 11/12/2019 Patient is seen and evaluated and follow-up continues to be closely monitored in the ICU. Patient is currently restless and seems to be having some shortness of breath. Patient is placed on nasal cannula although was mouth breathing and is currently on 5 L of oxygen. Patient was on insulin drip which has been discontinued and patient will be continued on sliding scale as patient now has a diet ordered although isn't eating very much. Patient continues to be confused and not following commands. Patient had a chest x-ray today status post chest tube removal showing no evidence of residual pneumothorax. Patient underwent brain CT yesterday showing patchy periventricular and deep white matter changes, left greater than right that have progressed since 01/19/2019 with demyelinating disease or other infectious inflammatory etiologies are possible, and no acute intracranial hemorrhage or midline shift noted. 11/13/2019 Patient became to Make and found to have metabolic acidosis with respiratory compensation progressively got fatigued event into respiratory failure subsequently intubated patient received the bicarbonate infusion for severe metabolic acidosis and patient had lactic acidosis with the lactic acid going up to 11 which came down to 1.5 patient is also started on pressor support with Levophed on mechanical ventilator with tidal volume of 450 set up respiratory of 24 FiO2 of 50% PEEP of 5 urine output is fairly. Chest x-ray showing mild pulmonary vascular congestion with the pleural effusions bilaterally 11/14/2019 Patient the did not tolerate weaning trial. Patient remains on ventilatory support. Patient is a one dose of vancomycin patient is presently on IV Zosyn for fevers although etiology of fevers is not clear at this time. Patient blood sugars are high receiving 3 units every 4 hours as per sliding scale patient wi ll be started on long-acting insulin 15 units and continue with sliding scale Review of systems: Unable to obtain as patient is tired and sleepy All inpatient medications were reviewed and appropriate changes in these medications as dictated in the interval history and assessment and plan. 11/15/2019 Patient is seen and evaluated and follow-up and currently remains in the ICU on mechanical ventilation and is being closely monitored. Patient continues to have a Dobbhoff for nutrition and remains on long-acting Levemir 15 units at bed along with sliding scale and will continue at this time. Patient is currently maintained on IV vancomycin along with Zosyn and infectious disease has been consulted. Patient is afebrile for 24 hours. White blood count is trending down and is currently 15.3 today. 11/16/2019 Patient is seen and evaluated in follow-up continues to be on a mechanical ve ntilator and intubated with sedation and is being closely monitored in the ICU. Patient continues to have elevated blood sugars and have increased the long- acting Levemir to 20 units and will continue with sliding scale and added 5 units every 4 hours For tighter glycemic control. Patient remains on tube feedings at goal via a Dobbhoff system. Multiple medical consultations following. Patient is maintained on IV vancomycin and cefepime and will continue at this time. White blood count slowly trending down at 15.2 today. Chest x-ray showing some pleural effusions and a chest ultrasound was performed showing bilateral pleural effusions although small in size and were not marked. Objective - Vital Signs Vital signs: Vital Signs Temp 98.8 F 11/16/19 12:00 Pulse 71 11/16/19 15:43 Resp 17 11/16/19 12:00 BP 106/61 11/16/19 08:00 Pulse Ox 100 11/16/19 12:00 Intake & Output 11/15/19 11/16/19 11/16/19 18:59 06:59 18:59 Intake Total 2711.554 8994.800 1007.45 Output Total 1535 2180 885 Balance -134.394 -736.200 122.45 Weight 95 kg 92.9 kg Intake: IV 202 207 401 .9NS @ 5ml/hr 35 15 Cefepime 2 gm In Sodium 100 100 Chloride 0.9% 100 ml @ 200 mls/hr IVPB Q12HR [facility] Rx#:[id number] D5-0.45% NaCl with KCl 30 20Meq/l 1,000 ml @ 30 mls /hr IV .Q24H [facility] Rx#: [id number] Normal Saline Pressure 72 72 36 Bag Piperacillin-Tazobactam 3 100 .375 gm In Sodium Chloride 0.9% 100 ml @ 25 mls/hr IVPB Q8HR [facility] Rx# :[id number] Vancomycin 1,500 mg In 250 Sodium Chloride 0.9% 250 ml @ 125 mls/hr IVPB Q16H [facility] Rx#:[id number] Intake, IV Titration 400.606 498.800 162.45 Amount Cefepime 2 gm In Sodium 100 Chloride 0.9% 100 ml @ 200 mls/hr IVPB Q12HR [facility] Rx#:[id number] Norepinephrine 4 mg In 4.181 126.375 Sodium Chloride 0.9% 250 ml @ 0.05 MCG/KG/MIN 16. 078 mls/hr IV .[id number] [facility] Rx#:[id number] Propofol 1,000 mg In 296.425 372.425 162.45 Empty Bag 1 bag @ Titrate IV .Q0M [facility] Rx#: [id number] Tube Feeding 648 648 324 Other 150 90 120 Output: Urine 1535 2180 885 Other: Voiding Method Indwelling Catheter Indwelling Catheter Indwelling Catheter # Bowel Movements 1 ABP, PAP, CO, CI - Last Documented Arterial Blood Pressure 113/51 Pulmonary Artery Pressure 30/17 Cardiac Output 4.5 Cardiac Index 2.3 - Exam GENERAL: Patient is intubated and sedated HEENT: Pupils are round and equally reacting to light. EOMI. No scleral icterus. No conjunctival pallor. Normocephalic, atraumatic. No pharyngeal erythema. No thyromegaly. triple lumen IJ Noted on the right. Dobbhoff tube feeding system noted CARDIOVASCULAR: S1 and S2 present. No murmurs, rubs, or gallops. PULMONARY: Diminished breath sounds bilaterally with some scattered rhonchi. ABDOMEN: Soft, nontender, nondistended, normoactive bowel sounds. No palpable organomegaly. MUSCULOSKELETAL: No joint swelling or deformity. EXTREMITIES: No cyanosis, clubbing, or pedal edema. NEUROLOGICAL: He is sedated on propofol drip SKIN: No rashes. - Labs CBC & Chem 7: 11/16/19 04:16 11/16/19 04:16 Labs: Abnormal Lab Results - Last 24 Hours (Table) 11/15/19 11/15/19 11/16/19 Range/Units 16:56 19:55 00:02 WBC (3.8-10.6) k/uL RBC (4.30-5.90) m/uL Hgb (13.0-17.5) gm/dL Hct (39.0-53.0) % RDW (11.5-15.5) % Neutrophils # (1.3-7.7) k/uL Eosinophils # (0-0.7) k/uL ABG pH (7.35-7.45) ABG pCO2 (35-45) mmHg ABG Total CO2 (19-24) mmol/L ABG O2 Saturation (94-97) % Chloride (98-107) mmol/L BUN (9-20) mg/dL Glucose (74-99) mg/dL POC Glucose (mg/dL) 171 H 205 H 204 H (75-99) mg/dL Calcium (8.4-10.2) mg/dL AST (17-59) U/L ALT (4-49) U/L Alkaline Phosphatase (38-126) U/L Total Protein (6.3-8.2) g/dL Albumin (3.5-5.0) g/dL 11/16/19 11/16/19 11/16/19 Range/Units 04:16 04:16 04:16 WBC 15.2 H (3.8-10.6) k/uL RBC 2.47 L (4.30-5.90) m/uL Hgb 7.9 L (13.0-17.5) gm/dL Hct 24.3 L (39.0-53.0) % RDW 15.8 H (11.5-15.5) % Neutrophils # 11.7 H (1.3-7.7) k/uL Eosinophils # 0.9 H (0-0.7) k/uL ABG pH (7.35-7.45) ABG pCO2 (35-45) mmHg ABG Total CO2 (19-24) mmol/L ABG O2 Saturation (94-97) % Chloride 108 H (98-107) mmol/L BUN 33 H (9-20) mg/dL Glucose 165 H (74-99) mg/dL POC Glucose (mg/dL) 193 H (75-99) mg/dL Calcium 7.7 L (8.4-10.2) mg/dL AST 225 H (17-59) U/L ALT 935 H (4-49) U/L Alkaline Phosphatase 188 H (38-126) U/L Total Protein 4.7 L (6.3-8.2) g/dL Albumin 2.5 L (3.5-5.0) g/dL 11/16/19 11/16/19 11/16/19 Range/Units 07:57 08:05 12:10 WBC (3.8-10.6) k/uL RBC (4.30-5.90) m/uL Hgb (13.0-17.5) gm/dL Hct (39.0-53.0) % RDW (11.5-15.5) % Neutrophils # (1.3-7.7) k/uL Eosinophils # (0-0.7) k/uL ABG pH 7.48 H (7.35-7.45) ABG pCO2 34 L (35-45) mmHg ABG Total CO2 26 H (19-24) mmol/L ABG O2 Saturation 97.7 H (94-97) % Chloride (98-107) mmol/L BUN (9-20) mg/dL Glucose (74-99) mg/dL POC Glucose (mg/dL) 191 H 197 H (75-99) mg/dL Calcium (8.4-10.2) mg/dL AST (17-59) U/L ALT (4-49) U/L Alkaline Phosphatase (38-126) U/L Total Protein (6.3-8.2) g/dL Albumin (3.5-5.0) g/dL 11/16/19 Range/Units 14:54 WBC (3.8-10.6) k/uL RBC (4.30-5.90) m/uL Hgb (13.0-17.5) gm/dL Hct (39.0-53.0) % RDW (11.5-15.5) % Neutrophils # (1.3-7.7) k/uL Eosinophils # (0-0.7) k/uL ABG pH (7.35-7.45) ABG pCO2 (35-45) mmHg ABG Total CO2 (19-24) mmol/L ABG O2 Saturation (94-97) % Chloride (98-107) mmol/L BUN (9-20) mg/dL Glucose (74-99) mg/dL POC Glucose (mg/dL) 163 H (75-99) mg/dL Calcium (8.4-10.2) mg/dL AST (17-59) U/L ALT (4-49) U/L Alkaline Phosphatase (38-126) U/L Total Protein (6.3-8.2) g/dL Albumin (3.5-5.0) g/dL Microbiology - Last 24 Hours (Table) 11/10/19 21:15 Blood Culture - Preliminary Blood No Growth after 120 hours 11/12/19 14:40 Blood Culture - Preliminary Blood No Growth after 72 hours 11/12/19 14:40 Blood Culture - Preliminary Blood No Growth after 72 hours Assessment and Plan Assessment: -Acute non-ST elevation myocardial infarction: Coronary artery diseasepatient is status post five-vessel coronary artery bypass grafting, patient is presently on aspirin and statin, And Norepinephrine -Acute respiratory failure hypoxic, patient had metabolic acidosis probably due to decreased organ perfusion presently intubated and sedated -New onset paroxysmal atrial fibrillation with RVR, Presently rate controlled, Currently on aspirin and Plavix and subcu heparin -Leukocytosis reactive because of patient's lactic Acidosis and overall clinical condition patient is on empiric antibiotic with cefepime And vancomycin With source of infection Etiology unclear. Infectious disease following. -Possible congestive heart failure chronic diastolic dysfunction with acute exacerbation. Initiating IV Lasix 40 mg IV push every 12 hours. Today's chest x- ray showing some redemonstration of vascular congestion and small bilateral pleural effusions -Low-grade fever probably because of atelectasis, improving -Hypertension -Hyperlipidemia -Type 2 diabetes mellitus, and is on sliding scale every 6 hourly, adding long- acting insulin 15 units -COPD without any acute exacerbation -Severe peripheral vascular disease -History of bladder cancer status post chemotherapy and radiation - nicotine use and marijuana use Plan: Continue current medications, management, and symptomatic treatment. Patient currently remains intubated and sedated in the ICU with discussion of possible attempts at weaning. Will continue to monitor closely. Multiple medical consultations following. Blood sugars continue to be elevated and will increase long-acting to 20 units daily along with 5 units scheduled every 4 hours. Patient remains on tube feedings and will continue at this time. Patient also continues on IV cefepime and vancomycin and will continue at this time. Due to multiple complex medical conditions, prognosis is guarded. Further recommendations to follow.
[2019-11-16 19:56] LABS: Glucose,Whole Blood 179 mg/dL (75-99)
[2019-11-16] MEDS: SENNOSIDES-DOCUSATE SODIUM 1 EACH TAB PO SCH (20:00)
[2019-11-16] MEDS ORDERED: TAMSULOSIN 0.4 MG CAP.ER.24H PO SCH (21:00)
[2019-11-16] MEDS: INSULIN DETEMIR (LEVEMIR) 100 UNIT/ML SYR SQ SCH (21:42)
[2019-11-16 23:55] LABS: Glucose,Whole Blood 148 mg/dL (75-99)
[2019-11-17] MEDS: VANCOMYCIN 1,500 MG in SODIUM CHLORIDE 0.9% 250 ML IVPB SCH ×2 (00:49→17:06)
[2019-11-17] MEDS ORDERED: VANCOMYCIN TROUGH DUE 1 EACH MISC MISCELLANE ONE (01:00)
[2019-11-17 03:50] LABS: Glucose,Whole Blood 173 mg/dL (75-99)
[2019-11-17] MEDS: INSULIN ASPART (NovoLOG) 100 UNIT/ML VIAL SQ SCH ×12 (03:51→23:57)
[2019-11-17 04:19] LABS: Albumin 2.6 g/dL (3.5-5.0); Calcium 7.7 mg/dL (8.4-10.2); Potassium 3.9 mmol/L (3.5-5.1); Total Bilirubin 0.9 mg/dL (0.2-1.3); Total Protein 4.9 g/dL (6.3-8.2)
[2019-11-17 04:25] LABS: Basophils % (A) 0 %; Eosinophils # (A) 0.8 k/uL (0-0.7); Eosinophils % (A) 6 %; HCT 23.7 % (39.0-53.0); HGB 7.7 gm/dL (13.0-17.5); Hypochromasia Slight; Lymphocytes # (A) 1.4 k/uL (1.0-4.8); Lymphocytes % (A) 9 %; MCH 32.4 pg (25.0-35.0); MCHC 32.4 g/dL (31.0-37.0); MCV 99.9 fL (80.0-100.0); Macrocytosis Slight; Mean Platelet Volume 9.5; Monocytes % (A) 7 %; Neutrophils # (A) 11.1 k/uL (1.3-7.7); Neutrophils % (A) 74 %; Platelet Count 200 k/uL (150-450); RBC 2.37 m/uL (4.30-5.90); RDW 15.8 % (11.5-15.5)
[2019-11-17] MEDS ORDERED: POTASSIUM BICARBONATE/CIT AC 20 MEQ TABLET.EFF NG-TUBE SCH (05:00)
[2019-11-17] MEDS: HEPARIN SODIUM,PORCINE 5,000 UNIT/ML 1 ML VIAL SQ SCH ×3 (05:38→23:57)
[2019-11-17] MEDS: FERROUS SULFATE 325 MG TAB PO SCH (05:57)
[2019-11-17] MEDS: ASCORBIC ACID 500 MG TAB PO SCH ×2 (06:26→17:01)
[2019-11-17] MEDS: PANTOPRAZOLE 40 MG TABLET PO SCH (06:26)
--- NOTE | 2019-11-17 07:06 | XR ---
EXAMINATION TYPE: XR chest 1V portable DATE OF EXAM: 11/17/2019 CLINICAL HISTORY: Difficulty breathing progress study. TECHNIQUE: Single AP portable semiupright view of the chest is obtained. COMPARISON: Chest x-ray from one day earlier and older studies. FINDINGS: Stable endotracheal tube, orogastric tube, and right internal jugular central venous [address]. Persistent sternal wires along with overlying epicardial pacer wires. Persistent cardiomegaly with le ft atrial appendage clip. Persistent central vascular congestion and bibasilar opacities. Osseous str uctures are intact. IMPRESSION: Overall stable findings, suspect CHF exacerbation as there is cardiomegaly with mild to moderate central vascular congestion and small to moderate-sized bilateral pleural effusions that re main present.
[2019-11-17 07:52] LABS: Glucose,Whole Blood 147 mg/dL (75-99)
--- NOTE | 2019-11-17 08:01 | P.PN ---
Subjective Progress Note Date: 11/17/19 Principal diagnosis: Symptomatic multivessel coronary artery disease, unstable angina, status post subendocardial myocardial infarction. 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 Endoscopic vein harvest of the left greater saphenous vein from the ankle to the groin. Endoscopic harvest of the left radial artery. Epi-aortic ultrasound and ligation of left atrial appendage with 40 mm AtriCure clip Postoperative acute blood loss anemia, expected outcome given cardiopulmonary bypass and hemodilution Postoperative encephalopathy, unexpected but potential outcome given cardiopulmonary bypass and intraoperative cardiac arrest Postoperative new onset paroxysmal Afib with RVR, unexpected Postoperative acute hypoxemic respiratory failure requiring reintubation, secondary to metabolic acidosis and hypotension. Postoperative stage II pressure ulcer on coccyx, unexpected This patient is currently intubated and sedated in the intensive care unit. Currently, he is sedated with 60 mcg/kg/hr of Propofol with mechanical vent ilation. Off sedation yesterday for about 45 minutes, patient followed simple commands, sedation restarted due to tachypnea. Will reattempt weaning trial today with goal of extubation. The endotracheal tube is 23cm at the lip with ventilator settings of AC 16, TV 450, FiO2 40%, PEEP 5. Morning ABGs pending. The patient is hemodynamically stable, Norepinephrine drip has remained off for greater than 24 hours. Newman catheter remains in place for strict I&O. Dobbhoff feeding tube in place with Vital HP at 54 ml/hr with 30 mL water flush g2lmsys. New stage II pressure ulcer. Objective - Vital Signs Vital signs: Vital Signs Temp 98.4 F 11/17/19 04:00 Pulse 74 11/17/19 07:00 Resp 27 H 11/17/19 07:00 BP 106/61 11/16/19 08:00 Pulse Ox 100 11/17/19 07:00 Intake & Output 11/16/19 11/17/19 11/17/19 18:59 06:59 18:59 Intake Total 1527.45 1501.130 65 Output Total 1550 1485 50 Balance -22.55 16.130 15 Weight 94.1 kg Intake: IV 467 482 11 .9NS @ 5ml/hr 45 60 5 Cefepime 2 gm In Sodium 100 100 Chloride 0.9% 100 ml @ 200 mls/hr IVPB Q12HR [facility] Rx#:[id number] Normal Saline Pressure 72 72 6 Bag Vancomycin 1,500 mg In 250 250 Sodium Chloride 0.9% 250 ml @ 125 mls/hr IVPB Q16H [facility] Rx#:[id number] Intake, IV Titration 262.45 335.130 Amount propofoL 1,000 mg In 262.45 335.130 Empty Bag 1 bag @ Titrate IV .Q0M YVAN Rx#: [id number] Tube Feeding 648 594 54 Other 150 90 Output: Urine 1550 1485 50 Other: Voiding Method Indwelling Catheter Indwelling Catheter ABP, PAP, CO, CI - Last Documented Arterial Blood Pressure 133/56 Pulmonary Artery Pressure 30/17 Cardiac Output 4.5 Cardiac Index 2.3 - Exam The patient is sedated on propofol at 60 mcg/kg/min, moves all extremities with stimulation. - Constitutional General appearance: Present: no acute distress - EENT EENT Comment(s): PERRLA, slight scleral edema bilaterally Eyes: Present: PERRLA - Respiratory Details: Lung sounds course in all lung gruber, diminished in bilateral bases. No wheezes or rhonchi. Respirations symmetrical and nonlabord on mechanical support. Cream colored secretions. O2 saturation 100% on current ventilator settings. - Cardiovascular Details: Regular rate and rhythm, S1 and S2 present. no murmur. Sinus Rhythm on monitor, rate 80s. AV wires to genarator, AAI backup of 50. Right radial arterial line in place, Right IJ central line inplace, transduced to CVP, 2 left midline IVs intact. - Gastrointestinal Gastrointestinal Comment(s): Abdomen is soft, and nondistended. Bowel sounds present in all 4 abdominal quadrants. Dobbhoff tube in place with vital high-protein infusing ankle rate of 54 mL per hour with 30 mL every 4 hours of water flushes. Last documented Bowel movement 11/15/19 - Genitourinary Genitourinary Comment(s): Newman catheter in place for strict I&O. Draining yellowish/rachana, clear. Nursing flushing newman every 6 hours - Integumentary Integumentary Comment(s): New stage II coccyx, generalized edema, scrotal edema. Skin is warm and dry. No clubbing or cyanosis is present. Midline sternal incision is clean, dry and approximated. No drainage or redness is present. Gauze dressing is clean, dry and intact. Left arm radial harvest sites are clean, dry and approximated. No drainage or redness is present. Left lower extremity EVH site is clean, dry and approximated. No drainage or redness is present. Small scattered ecchymotic areas to his left thigh and left forearm. Soft to touch. Positive ulnar pulse to his left arm. - Neurologic Neurologic Comment(s): Unable to fully assess, patient is currently sedated on Propofol drip. Moves all extremities with stimulation. - Labs CBC & Chem 7: 11/17/19 03:50 11/17/19 03:50 Labs: Abnormal Lab Results - Last 24 Hours (Table) 11/16/19 11/16/19 11/16/19 Range/Units 07:57 08:05 12:10 WBC (3.8-10.6) k/uL RBC (4.30-5.90) m/uL Hgb (13.0-17.5) gm/dL Hct (39.0-53.0) % RDW (11.5-15.5) % Neutrophils # (1.3-7.7) k/uL Eosinophils # (0-0.7) k/uL ABG pH 7.48 H (7.35-7.45) ABG pCO2 34 L (35-45) mmHg ABG Total CO2 26 H (19-24) mmol/L ABG O2 Saturation 97.7 H (94-97) % Sodium (137-145) mmol/L BUN (9-20) mg/dL Glucose (74-99) mg/dL POC Glucose (mg/dL) 191 H 197 H (75-99) mg/dL Calcium (8.4-10.2) mg/dL AST (17-59) U/L ALT (4-49) U/L Alkaline Phosphatase (38-126) U/L Total Protein (6.3-8.2) g/dL Albumin (3.5-5.0) g/dL 11/16/19 11/16/19 11/16/19 Range/Units 14:54 19:55 23:54 WBC (3.8-10.6) k/uL RBC (4.30-5.90) m/uL Hgb (13.0-17.5) gm/dL Hct (39.0-53.0) % RDW (11.5-15.5) % Neutrophils # (1.3-7.7) k/uL Eosinophils # (0-0.7) k/uL ABG pH (7.35-7.45) ABG pCO2 (35-45) mmHg ABG Total CO2 (19-24) mmol/L ABG O2 Saturation (94-97) % Sodium (137-145) mmol/L BUN (9-20) mg/dL Glucose (74-99) mg/dL POC Glucose (mg/dL) 163 H 179 H 148 H (75-99) mg/dL Calcium (8.4-10.2) mg/dL AST (17-59) U/L ALT (4-49) U/L Alkaline Phosphatase (38-126) U/L Total Protein (6.3-8.2) g/dL Albumin (3.5-5.0) g/dL 11/17/19 11/17/19 11/17/19 Range/Units 03:48 03:50 03:50 WBC 15.0 H (3.8-10.6) k/uL RBC 2.37 L (4.30-5.90) m/uL Hgb 7.7 L (13.0-17.5) gm/dL Hct 23.7 L (39.0-53.0) % RDW 15.8 H (11.5-15.5) % Neutrophils # 11.1 H (1.3-7.7) k/uL Eosinophils # 0.8 H (0-0.7) k/uL ABG pH (7.35-7.45) ABG pCO2 (35-45) mmHg ABG Total CO2 (19-24) mmol/L ABG O2 Saturation (94-97) % Sodium 136 L (137-145) mmol/L BUN 33 H (9-20) mg/dL Glucose 153 H (74-99) mg/dL POC Glucose (mg/dL) 173 H (75-99) mg/dL Calcium 7.7 L (8.4-10.2) mg/dL AST 130 H (17-59) U/L ALT 692 H (4-49) U/L Alkaline Phosphatase 195 H (38-126) U/L Total Protein 4.9 L (6.3-8.2) g/dL Albumin 2.6 L (3.5-5.0) g/dL Microbiology - Last 24 Hours (Table) 11/10/19 21:15 Blood Culture - Final Blood No Growth after 144 hours 11/12/19 14:40 Blood Culture - Preliminary Blood No Growth after 96 hours 11/12/19 14:40 Blood Culture - Preliminary Blood No Growth after 96 hours - Imaging and Cardiology Chest x-ray: report reviewed, image reviewed Assessment and Plan Assessment: 1. Symptomatic multivessel coronary artery disease, recent non-STEMI, status post 5 vessel CABG 2. Leukocytosis, maybe multifactoral, positive UTI. Blood, sputum, urine cultures negative to date although drawn after antibiotics started. 3. Previous stent placement to the proximal circumflex and ostial OM1 4. History of hypertension 5. History of hyperlipidemia 6. Chronic ongoing tobacco dependence 7. Mild COPD, preoperative FEV1 60% of predicted value 8. Right internal carotid artery stenosis 50-69%. 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 9. 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 Poorly controlled diabetes mellitus type 2 with hyperglycemia, admission hemoglobin A1c 9.1% 11. History of bladder cancer status post radiation, chemotherapy treatment and bladder surgery 12. Occasional marijuana use 13. Medication noncompliance 14. Family history of early onset coronary artery disease 15. Postoperative acute blood loss anemia, expected 16. Postoperative encephalopathy, unexpected 17. Mild ISAAC, resolving, creatinine yesterday 1.09, today 1.04 18. Afib with RVR, status post left atrial appendage ligation, currently Sinus Rhythm 19. Hematuria, resolved, from patient pulling at newman catheter 20. Postoperative acute hypoxic respiratory failure requiring reintubation, secondary to metabolic acidosis and hypotension 21. Elevated transaminase levels, shock liver, secondary to hypotension, trending down 22. New stage II pressure ulcer, coccyx Plan: 1. Continue aspirin, Plavix and statin. 2. Continue amiodorone for atrial fibrillation prophylaxis. Parameters placed on the amiodarone per cardiology recommendations to hold for heart rate less than 70. 3. Continue to hold beta gaurav, Cardizem and Cozaar due to his bradycardia and hypotension. Will reassess and add as tolerated. 4. Keep Newman catheter in place for accurate I&O. Newman catheter was changed on 11/14/2019. 5. Add slivadine cream to apply to pressure ulcer. Turn minimum every 2 hours. 6. Mechanical ventilator management per pulmonary critical care medicine. 7. Wean Diprivan as tolerated. May mash filter cloth changer to Precedex when plan for extubation if patient remains agitated with diprivan decrease. 8. Will monitor daily labs and chest x-rays. Elective replacement per protocol. 9. Continue Tylenol for pain management, hold narcotics and toradol. 10. GI/DVT prophylaxis. 11. Insulin management per primary care service. 12. Continue 40 mg Lasix q12 13. Keep Dobbhoff tube in place for tube feeding. Currently infusing at goal rate of 54 mL per hour. 14. Continue to avoid nephrotoxic agents. 15. Keep atrial and ventricular epicardial pacemaker wires in place and connected to a backup pacemaker generator with a AAI of 50. 16. Reorient as necessary. 17. Continue to appreciate infectious disease recs for elevated WBC count and antibiotic management. 18. More recommendations to follow based on patient's clinical course. Time with Patient: Greater than 30
[2019-11-17] MEDS: NOREPINEPHRINE 4 MG in SODIUM CHLORIDE 0.9% 250 ML IV SCH (08:06)
[2019-11-17] MEDS: FERROUS SULFATE ORAL ELIXIR 300 MG/5 ML CUP PO SCH ×2 (08:08→17:00)
[2019-11-17] MEDS: AMIODARONE 200 MG TAB PO SCH ×2 (08:09→20:33)
[2019-11-17] MEDS: CHLORHEXIDINE GLUCONATE 15 ML CUP MUCOUS MEM SCH ×2 (08:10→20:33)
[2019-11-17] MEDS: CLOPIDOGREL 75 MG TAB PO SCH (08:10)
[2019-11-17] MEDS: ATORVASTATIN 40 MG TAB PO SCH (08:10)
[2019-11-17] MEDS: FUROSEMIDE 10 MG/ML 4 ML VIAL IV SCH ×2 (08:10→20:33)
[2019-11-17] MEDS: ASPIRIN 325 MG TAB PO SCH (08:10)
[2019-11-17] MEDS: CEFEPIME 2 GM in SODIUM CHLORIDE 0.9% 100 ML IVPB SCH ×2 (08:10→20:32)
[2019-11-17] MEDS: NYSTATIN 100,000 UNIT/ML SUSP 500,000 UNIT/5 ML CUP PO SCH ×4 (08:27→20:40)
[2019-11-17 08:30] LABS: ABG Base Excess 1.8 mmol/L; ABG HCO3 26 mmol/L (21-25); ABG Oxygen Saturation 97.7 % (94-97); ABG PCO2 35 mmHg (35-45); ABG PH 7.47 (7.35-7.45); ABG PO2 92 mmHg (83-108); ABG TCO2 27 mmol/L (19-24)
[2019-11-17] MEDS: IPRATROPIUM-ALBUTEROL 3 ML NEB INHALATION SCH ×4 (08:33→19:38)
[2019-11-17 09:07] LABS: Allen Test Performed? No
--- NOTE | 2019-11-17 11:27 | CT ---
EXAMINATION TYPE: CT brain wo con DATE OF EXAM: 11/17/2019 COMPARISON: 11/11/2019 HISTORY: Altered mental status CT DLP: 1129.4 mGycm Automated exposure control for dose reduction was used. FINDINGS: ET tube again noted. There is mild to moderate generalized degenerative change with areas of low atte nuation seen within the white matter bilaterally and most marked in the left parietal lobe suggestive of remote ischemia. Punctate areas of abnormal density in the basal ganglia compatible with remote l acunar infarct. Calvarium intact. Craniocervical junction maintained. Sella turcica has a normal appearance. Orbits are symmetric in si ze. Nasal septal deviation noted IMPRESSION: 1. No evidence of acute hemorrhage. Areas of patchy low attenuation left parietal white matter as pre viously noted are of indeterminate age and could be on the basis of subacute ischemia correlate clini mela. No significant interval change. 2. Degenerative and suspected remote ischemic change as noted above. Correlate with MRI as clinically warranted.
[2019-11-17] MEDS: METOPROLOL TARTRATE 12.5 MG TAB PO SCH ×2 (11:57→20:33)
[2019-11-17 11:59] LABS: Glucose,Whole Blood 184 mg/dL (75-99)
--- NOTE | 2019-11-17 13:32 | P.PN ---
Subjective Progress Note Date: 11/17/19 Principal diagnosis: Coronary artery disease with unstable angina, and non-ST elevated AL, status post 5 vessel bypass grafting This is a 64-year-old male patient with coronary artery disease, noncompliant to medication. The patient came in with subendocardial infarction and cardiac catheterization showed diffuse coronary artery disease with critical stenosis. The patient underwent coronary artery bypass today. The patient underwent bypass 5 with GR to LAD, radial artery graft to acute marginal, saphenous finger after 2 posterior lateral and sick ration saphenous vein to first and second diagonal performed on cardiac pulmonary bypass with beating heart. Left atrial appendage was also added. The patient currently is in the intensive care unit. I centimeters in regards to the ICU. He was initially on a SIMV mode of ventilation at the rate of 12 with a tidal volume of 500 and FiO2 of 100% with a PEEP of 5 and a pressure support of 5. The blood gas showed a pH of 7.318 with a pCO2 of 49 and pO2 of 226. The chest x-ray postop showed volume overload with pulmonary vascular congestion and interstitial edema. The lines and tubes are all in good location. Based on all this, I increased the respiratory rate of 24. I do not FiO2 down to 60%. Current cardiac output is at 2.6 with an index of 5. The patient has 2 mediastinal 1 right pleural and 1 left pleural chest tube. Ultrasound of the sternal chest tubes has been around 150 mL since he arrived from the operating room. No evidence of any air leak. The patient is currently on a Cardizem drip and milrinone drip and the patient is on insulin drip for blood sugar control.he is well sedated. Is quite symptoms with the mechanical ventilator. Postoperative hemoglobin is at 8.2. Platelet count is down to 78. On today's evaluation of 11/09/2019, I'm seeing the patient for a follow-up. The patient was operated on yesterday and the patient underwent a five-vessel bypass surgery including a GR and the radial artery harvest. The patient was extubated within 6 hours and currently the patient is on oxygen by nasal cannula at 5 L. He is pleasantly confused this morning. He is able to sit up on a recliner. Hemodynamically, he did have some early of hypotension earlier this morning and for that reason the patient was given 750 mL of colloids and following that he was started on low-dose levo fed at 0.03 g per KG per minute. The patient remains on Primacor running at 0.125 g and the patient is also on Cardizem at 5 mg an hour. Insulin drip is running at 2.5 units an hour. Hemod ynamically, the patient's cardiac output is at 4.2 with an index of 2.2. The pulmonary artery pressure 28/12. CVP is at 11. Cardiac output is at 4.2. He is in his normal sinus rhythm. He has a backup VVI at the rate of 50. His chest x-rays showing small bilateral apical pneumothoraces. All of the chest tubes are in good location. The right and left pleural chest tube connected and they have drained approximately 130 mL over the past 8 hours. He is tender tubes are also connected and it has drained approximately 140 mL over the past 8 hours. The patient otherwise has no specific complaints. Sternum stable clean and intact. He is producing urine output in the order of 20-30 mL an hour. No other significant events overnight. Hemoglobin stable at 7.9. The platelet count improved to 102. On 11/10/2019, the patient is postop day #2. The patient is confused. He is nonverbal. He is not answering questions and is not following any commands. Upon watching him, I felt that the left side of the body slightly cachectic compared to the right. Nevertheless, the same as the patient was not cheered by the nursing staff been observing this patient longer to me. He has no prefer ential gaze toseizure activity. No reported shortness of breath or respiratory distress at this point in time. Mediastinal chest tubes and the pleural chest tubes are all in place. The patient has an AV epicardial pacer wire grounded to generator. As of yesterday, the patient was taken off the pressors. The patient is currently off the levo fed and he is off the Primacor. The patient also had the ALYX drains removed from the left lower extremity and arm. No other significant issues for now. No cardiac arrhythmias. No nausea. No vomiting. No emesis. He is resting comfortably in bed. The patient's hemoglobin is at 7.0. Was a causative 4.7. Diminished pulmonary vascular congestion and infiltration of the right lung base. There is resolution of the previously described bilateral pneumothoraces. On today's evaluation of 11/11/2019, the patient remains confused. I was told that he was able to say some few words. I was also told by the nursing staff that the patient was witnessed EXTREMITIES WITHOUT ANY LIMITATION IN PATIENT HAVING ANY FOCAL NEUROLOGICAL DEFICIT. NOTE THAT THE PATIENT EARLIER THIS MORNING WITH ATRIAL FIBRILLATION WITH RAPID VENTRICULAR RESPONSE. HIS HEART RATE WENT UP TO 180 beats per minute without any significant hypotension. That point, the patient was given amiodarone boluses and the patient received a total of 3 boluses prior to my arrival. He was also given 5 mg of IV Lopressor. Her, bilateral, the patient was still in atrial fibrillation. He was trying to hurt at times he thought it was going down. His baseline rhythm was atrial fibr illation and heart rate was in the range of 100-120. The patient denied having any chest pain. Sternum was stable treatment intact. No reported fever or chills. The mediastinal chest 11 already been removed yesterday. The right and the left pleural chest tubes are still in place and output is being noted. Chest x-ray from this morning showed adequate expansion of both lungs without evidence of any pneumothorax. No evidence of any pulmonary edema. The patient was being given Lasix 20 mg IV push every 12 hours. Hemoglobin from this morning was down to 6.7 and the patient was ordered to get a unit of packed RBC. Currently is postoperative #3 post 5 vessel coronary artery bypass surgery. On 11/12/2019 patient seen in follow-up in the intensive care unit, he is very restless on today's exam, although nursing reports some improvement in his neurological status, and apparently patient is answering questions appropriately, and he knows he is in the hospital, and he is given verbal r esponses to questions. he is awake and alert, he is restless, but appears to be in no acute distress, he is moving his legs and arms bilaterally, squirming in bed. Does not appear to be in any respiratory distress. He is currently on 5 L of oxygen, with pulse ox of 100%, hemodynamically patient is stable, no fever or chills. Lactate of Ringer's infusing at a rate of 40 ML per hour. Today's est x-ray has been reviewed showing increasing airspace opacity of the right upper lobe, similar prominent interstitial markings, no pneumothorax, no pleural effusions. Left pleural chest tube is in place, with a total output of 340 ML in the last 24 hours, right pleural chest tube put out 380 mL of serosanguineous thin output in the last 24 hours, media still chest tubes have been discontinued. Patient has produced 1.3 L and urine output in the last 24 hours. Junior catheter remains in place. Today's lab work has been reviewed, showing white blood cell count of 17.6, hemoglobin is 9.3, sodium of 138, potassium 3.8, chloride is 108, CO2 is 20, B1 is 39, creatinine is 1.17. She is in sinus arrhythmia with frequent PACs on the monitor, amiodarone drip has been switched to oral amiodarone 400 mg twice daily, patient is on oral Cardizem 30 mg every 6 hours, and oral metoprolol 50 mg twice daily. Blood cultures have shown no growth at the 24-hour elly. Patient has been afebrile. study assistant is at the bedside in view of confusion and agitation, Junior catheter still has hematuria, which is dark in color, yesterday's brain CT showed patchy. Ventricular and deep white matter changes, left greater than right which have progressed from 01/09/2019, and areas of subacute ischemia are not excluded, MRI can further evaluate, no acute intracranial hemorrhage or midline shift. On 11/17/2019 patient seen in follow-up in the intensive care unit, she is sedated, intubated, on mechanical ventilator, current vent settings are assist- control with a rate of 16, tidal and was 450, FiO2 is 40%, and PEEP of 5. This morning his blood gases reveal pO2 of 92, pCO2 34, pH is 7.47. Current IV drips include 0.9 normal saline at a rate of 5 ML per hour, and improving and is at 60 mics per kilo per minute, tube feedings are with vital high-protein at a rate of 54, with a goal of 54 with standard water flushes with 30 mL of water every 4 hours. Patient was given daily traction of sedation yesterday, he awoke, and reportedly follow commands, but quickly became very tachypneic and hypertensive and had to be placed back on mechanical ventilator. His chest x-ray shows stable findings, persistent central vascular congestion and bibasilar opacities. Small to moderate-sized bilateral pleural effusions, appear to be stable. Patient remains on IV Lasix at 40 mg every 12 hours, and he is very slightly negative, only 6 mL, however he did produced over 3 L in urine output in the last 24 hours. He is off the vasopressor support, his weight is stable, he does have some generalized edema involving his upper and lower extremities. Remains on empiric antibiotics in the form of cefepime and vancomycin. He is afebrile, his blood urine and sputum cultures have shown no growth thus far. Today's labs have been reviewed. His white blood cell is stable at 15, hemoglobin is 7.7, sodium is 136, the rest of electrolytes were within normal limits, B1 is 33, and creatinine is 1.04, his liver enzymes are coming down, AST is down to 130, ALT is 692, alk phos is fairly stable at 195, his pro-calcitonin level was elevated and 0.99, suggesting presence of bacterial infection. Patient has been afebrile, abdomen is soft, nontender, patient is tolerating tube feedings. His hematuria has cleared up. Objective - Vital Signs Vital signs: Vital Signs Temp 98.1 F 11/17/19 08:00 Pulse 80 11/17/19 11:52 Resp 18 11/17/19 11:30 BP 106/61 11/16/19 08:00 Pulse Ox 99 11/17/19 11:30 Intake & Output 11/16/19 11/17/19 11/17/19 18:59 06:59 18:59 Intake Total 1527.45 1501.130 545.065 Output Total 1550 1485 820 Balance -22.55 16.130 -274.935 Weight 94.1 kg 94.1 kg Intake: IV 467 482 155 .9NS @ 5ml/hr 45 60 25 Cefepime 2 gm In Sodium 100 100 100 Chloride 0.9% 100 ml @ 200 mls/hr IVPB Q12HR [facility] Rx#:[id number] Normal Saline Pressure 72 72 30 Bag Vancomycin 1,500 mg In 250 250 Sodium Chloride 0.9% 250 ml @ 125 mls/hr IVPB Q16H [facility] Rx#:[id number] Intake, IV Titration 262.45 335.130 90.065 Amount propofoL 1,000 mg In 262.45 335.130 90.065 Empty Bag 1 bag @ Titrate IV .Q0M [facility] Rx#: [id number] Tube Feeding 648 594 270 Other 150 90 30 Output: Urine 1550 1485 820 Other: Voiding Method Indwelling Catheter Indwelling Catheter Indwelling Catheter ABP, PAP, CO, CI - Last Documented Arterial Blood Pressure 133/52 Pulmonary Artery Pressure 30/17 Cardiac Output 4.5 Cardiac Index 2.3 - Exam GENERAL EXAM: Sedated, intubated 64-year-old white male, with FiO2 40% HEAD: Normocephalic/atraumatic. EYES: Normal reaction of pupils, equal size. Conjunctiva pink, sclera white. NOSE: Clear with pink turbinates. THROAT: No erythema or exudates. NECK: No masses, no JVD, no thyroid enlargement, no adenopathy. CHEST: No chest wall deformity. Symmetrical expansion. Midsternal incision is clean dry and intact, right and left pleural chest tubes are in place, connected to Pleur-evac, with thin serosanguineous output in the Pleur-evacs, with no evidence of air leak, mediastinal chest tubes have been discontinued LUNGS: Equal air entry with no crackles, wheeze, rhonchi or dullness. CVS: Irregular rate and rhythm, normal S1 and S2, no gallops, no murmurs, no rubs ABDOMEN: Soft, nontender. No hepatosplenomegaly, normal bowel sounds, no guarding or rigidity. EXTREMITIES: No clubbing, no edema, no cyanosis, 2+ pulses and upper and lower extremities. MUSCULOSKELETAL: Muscle strength and tone normal. SPINE: No scoliosis or deformity SKIN: No rashes CENTRAL NERVOUS SYSTEM: Sedated, intubated, unable to assess No focal deficits, tone is normal in all 4 extremities. - Labs CBC & Chem 7: 11/17/19 03:50 11/17/19 03:50 Labs: Abnormal Lab Results - Last 24 Hours (Table) 11/16/19 11/16/19 11/16/19 Range/Units 14:54 19:55 23:54 WBC (3.8-10.6) k/uL RBC (4.30-5.90) m/uL Hgb (13.0-17.5) gm/dL Hct (39.0-53.0) % RDW (11.5-15.5) % Neutrophils # (1.3-7.7) k/uL Eosinophils # (0-0.7) k/uL ABG pH (7.35-7.45) ABG HCO3 (21-25) mmol/L ABG Total CO2 (19-24) mmol/L ABG O2 Saturation (94-97) % Sodium (137-145) mmol/L BUN (9-20) mg/dL Glucose (74-99) mg/dL POC Glucose (mg/dL) 163 H 179 H 148 H (75-99) mg/dL Calcium (8.4-10.2) mg/dL AST (17-59) U/L ALT (4-49) U/L Alkaline Phosphatase (38-126) U/L Total Protein (6.3-8.2) g/dL Albumin (3.5-5.0) g/dL 11/17/19 11/17/19 11/17/19 Range/Units 03:48 03:50 03:50 WBC 15.0 H (3.8-10.6) k/uL RBC 2.37 L (4.30-5.90) m/uL Hgb 7.7 L (13.0-17.5) gm/dL Hct 23.7 L (39.0-53.0) % RDW 15.8 H (11.5-15.5) % Neutrophils # 11.1 H (1.3-7.7) k/uL Eosinophils # 0.8 H (0-0.7) k/uL ABG pH (7.35-7.45) ABG HCO3 (21-25) mmol/L ABG Total CO2 (19-24) mmol/L ABG O2 Saturation (94-97) % Sodium 136 L (137-145) mmol/L BUN 33 H (9-20) mg/dL Glucose 153 H (74-99) mg/dL POC Glucose (mg/dL) 173 H (75-99) mg/dL Calcium 7.7 L (8.4-10.2) mg/dL AST 130 H (17-59) U/L ALT 692 H (4-49) U/L Alkaline Phosphatase 195 H (38-126) U/L Total Protein 4.9 L (6.3-8.2) g/dL Albumin 2.6 L (3.5-5.0) g/dL 11/17/19 11/17/19 11/17/19 Range/Units 07:51 08:22 11:58 WBC (3.8-10.6) k/uL RBC (4.30-5.90) m/uL Hgb (13.0-17.5) gm/dL Hct (39.0-53.0) % RDW (11.5-15.5) % Neutrophils # (1.3-7.7) k/uL Eosinophils # (0-0.7) k/uL ABG pH 7.47 H (7.35-7.45) ABG HCO3 26 H (21-25) mmol/L ABG Total CO2 27 H (19-24) mmol/L ABG O2 Saturation 97.7 H (94-97) % Sodium (137-145) mmol/L BUN (9-20) mg/dL Glucose (74-99) mg/dL POC Glucose (mg/dL) 147 H 184 H (75-99) mg/dL Calcium (8.4-10.2) mg/dL AST (17-59) U/L ALT (4-49) U/L Alkaline Phosphatase (38-126) U/L Total Protein (6.3-8.2) g/dL Albumin (3.5-5.0) g/dL Microbiology - Last 24 Hours (Table) 11/10/19 21:15 Blood Culture - Final Blood No Growth after 144 hours 11/12/19 14:40 Blood Culture - Preliminary Blood No Growth after 96 hours 11/12/19 14:40 Blood Culture - Preliminary Blood No Growth after 96 hours Assessment and Plan Plan: Assessment: 1 coronary artery disease without stable angina and non-STEMI. The patient underwent five-vessel bypass surgery. CABG 5 with GR to LAD, left radial artery to obtuse marginal, saphenous vein to posterior lateral, sequential saphenous vein to first and second diagonal performed on cardiopulmonary bypass with beating heart. Epi-aortic ultrasound and ligation of left atrial appendage with Ben clip. The patient is postop day #9. Hemodynamically stable. Pressors of been all discontinued. No active inotropes running at this point in time. 2 postoperative respiratory failure requiring reintubation related to progressive lactic acidosis, and metabolic acidosis with hypotension and evidence of pulmonary edema. The exact etiology is not clear chest x-ray shows small to moderate-sized bilateral effusions, central vascular congestion, with the possibility of fluid overload. Possibility of pneumonia is not excluded, patient is covered empirically with a combination of cefepime and vancomycin, Procalcitonin at the level is elevated to 0.99. So far urine and blood and sputum cultures are negative 3 altered mental status likely related to metabolic encephalopathy, initial CT of the brain showed patchy. Ventricular and deep white matter changes, subacute ischemia is not entirely ruled out 4 new-onset atrial fibrillation with RVR, expected outcome of surgery 5 blood loss anemia , expected outcome of surgery, and this is likely of blood loss anemia. Patient transfused with 3 units of blood this admission 6 COPD with an FEV1 of 60% of predicted at baseline 7 Peripheral vascular disease with prior peripheral stent placements 8 Right carotid artery stenosis at 50-69% 9 History of marijuana use 10 Diabetes mellitus, type II, insulin drip for blood sugar control, running at 1.5 units per hour. 11 History of bladder cancer status post radiation/chemotherapy and subsequent surgery 12 History of noncompliance Plan: Proceed with daily traction of sedation to assess mental status. If patient is comfortable, and following commands, may try pressure-support spontaneous breathing trials. Hemodynamically patient is stable, will continue with same dose of IV diuretics, continue current antibiotics, so far the culture data is negative although the pro-calcitonin did come back elevated at 0.99. Afebrile, chest x-ray still shows a combination of central vascular congestion and small to moderate-sized bilateral pleural effusions. Renal profile has improved, continue nutritional support. Repeat Brain CT shows no evidence of acute hemorrhage, does show areas of patchy low attenuation of left parietal white matter of indeterminate age that could be on the basis of subacute ischemia with areas of suspected remote ischemic changes. We'll consult neurology. We'll continue to follow I performed a history & physical examination of the patient and discussed their management with my nurse practitioner, Elva Newberry. I reviewed the nurse practitioner's note and agree with the documented findings and plan of care. Lung sounds are positive for clear breath sounds. The findings and the impression was discussed with the patient. I attest to the documentation by the nurse practitioner. Time with Patient: Greater than 30
--- NOTE | 2019-11-17 16:13 | P.PN ---
Subjective Progress Note Date: 11/17/19 Principal diagnosis: Patient is a [id number] male was recently discharged from the hospital came back in with the chest pain pressure-like sensation lasted for a few hours nonexertional did have elevated troponins. Patient had a triple-vessel disease patient is scheduled to undergo coronary artery bypass grafting on Friday went home started smoking again started having chest pain. Chest x-ray was read as pulmonary edema. It is not elevated patient clinically doesn't have any JVD or crackles or wheezing. 11/09/2019 Patient is status post CABG he was extubated the last night. Patient is presently on norepinephrine, milrinone, IV insulin. Patient still has a Kempner- Juni in place most of the management is being done by cardiac thoracic surgery patient was bit confused earlier today doing well now. 11/10/2019 Patient is still confused as per the family his confusion is better patient is a low-grade fever probably because of atelectasis a lot and blood cultures. Patient received Lasix for pulmonary edema, patient's mediastinal chest use with remote patient still has left pleural chest tubes Review of systems: Unable to obtain as patient is tired and sleepy All inpatient medications were reviewed and appropriate changes in these medications as dictated in the interval history and assessment and plan. 11/11/2019 Patient is seen and evaluated and follow-up currently remains in the ICU and is being closely monitored. Since hemoglobin was found to be 6.7 this morning and is currently receiving 1 unit of PRBCs. Potassium is 4.4, creatinine is 1.09, magnesium is 2.3. Patient went into atrial fibrillation with RVR and is being maintained on amiodarone drip and will transition to oral medications. Patient continues to have chest tubes along with indwelling Junior catheter which shows some hematuria as patient pulled it out. Patient has been afebrile with intermittent low-grade temps 99.7F and white count today is 14.1. Patient remains on an insulin drip and will continue at this time. Will continue to follow along closely with cardio thoracic surgery. 11/12/2019 Patient is seen and evaluated and follow-up continues to be closely monitored in the ICU. Patient is currently restless and seems to be having some shortness of breath. Patient is placed on nasal cannula although was mouth breathing and is currently on 5 L of oxygen. Patient was on insulin drip which has been discontinued and patient will be continued on sliding scale as patient now has a diet ordered although isn't eating very much. Patient continues to be confused and not following commands. Patient had a chest x-ray today status post chest tube removal showing no evidence of residual pneumothorax. Patient underwent brain CT yesterday showing patchy periventricular and deep white matter changes, left greater than right that have progressed since 01/19/2019 with demyelinating disease or other infectious inflammatory etiologies are possible, and no acute intracranial hemorrhage or midline shift noted. 11/13/2019 Patient became to Make and found to have metabolic acidosis with respiratory compensation progressively got fatigued event into respiratory failure subsequently intubated patient received the bicarbonate infusion for severe metabolic acidosis and patient had lactic acidosis with the lactic acid going up to 11 which came down to 1.5 patient is also started on pressor support with Levophed on mechanical ventilator with tidal volume of 450 set up respiratory of 24 FiO2 of 50% PEEP of 5 urine output is fairly. Chest x-ray showing mild pulmonary vascular congestion with the pleural effusions bilaterally 11/14/2019 Patient the did not tolerate weaning trial. Patient remains on ventilatory support. Patient is a one dose of vancomycin patient is presently on IV Zosyn for fevers although etiology of fevers is not clear at this time. Patient blood sugars are high receiving 3 units every 4 hours as per sliding scale patient wi ll be started on long-acting insulin 15 units and continue with sliding scale Review of systems: Unable to obtain as patient is tired and sleepy All inpatient medications were reviewed and appropriate changes in these medications as dictated in the interval history and assessment and plan. 11/15/2019 Patient is seen and evaluated and follow-up and currently remains in the ICU on mechanical ventilation and is being closely monitored. Patient continues to have a Dobbhoff for nutrition and remains on long-acting Levemir 15 units at bed along with sliding scale and will continue at this time. Patient is currently maintained on IV vancomycin along with Zosyn and infectious disease has been consulted. Patient is afebrile for 24 hours. White blood count is trending down and is currently 15.3 today. 11/16/2019 Patient is seen and evaluated in follow-up continues to be on a mechanical ve ntilator and intubated with sedation and is being closely monitored in the ICU. Patient continues to have elevated blood sugars and have increased the long- acting Levemir to 20 units and will continue with sliding scale and added 5 units every 4 hours For tighter glycemic control. Patient remains on tube feedings at goal via a Dobbhoff system. Multiple medical consultations following. Patient is maintained on IV vancomycin and cefepime and will continue at this time. White blood count slowly trending down at 15.2 today. Chest x-ray showing some pleural effusions and a chest ultrasound was performed showing bilateral pleural effusions although small in size and were not marked. 11/17/2019 Patient is seen and evaluated in follow-up currently continued on a mechanical ventilator and intubated and continues to be closely monitored in the ICU. Sedation has been on hold and patient eyes are opening Although not following commands. patient underwent head CT showing no evidence of acute hemorrhage with areas of patchy low attenuation left parietal white matter as previously noted and are of indeterminate age and could possibly be on the basis of subacute ischemia with no significant interval change. Degenerative and suspect remote ischemic change also noted and correlate with MRI as clinically warranted. Neurology was consulted and pending at this time. Multiple medical consultations following. Patient is currently maintained on cefepime and vancomycin and will continue at this time. White blood count elevated at 15.0 With hemoglobin of 7.7. Current creatinine is 1.04. Patient remains afebrile. Will continue to monitor closely. Review of systems: Unable to obtain as patient is intubated and sedated Active Medications Acetaminophen (Tylenol Tab) 1,000 mg PO Q6HR PRN PRN Reason: Fever and/ or Pain Last Admin: 11/11/19 12:49 Dose: 1,000 mg Documented by: Albuterol/Ipratropium (Duoneb 0.5 Mg-3 Mg/3 Ml Soln) 3 ml INHALATION RT-Q2H PRN PRN Reason: Shortness Of Breath Or Wheezing Albuterol/Ipratropium (Duoneb 0.5 Mg-3 Mg/3 Ml Soln) 3 ml INHALATION RT-QID [facility] Last Admin: 11/17/19 15:57 Dose: 3 ml Documented by: Amiodarone HCl (Cordarone) 200 mg PO BID [facility] Last Admin: 11/17/19 08:09 Dose: 200 mg Documented by: Ascorbic Acid (Vitamin C) 500 mg PO BID-W/MEALS [facility] Last Admin: 11/17/19 06:26 Dose: 500 mg Documented by: Aspirin (Aspirin) 325 mg PO DAILY [facility] Last Admin: 11/17/19 08:10 Dose: 325 mg Documented by: Atorvastatin Calcium (Lipitor) 40 mg PO DAILY [facility] Last Admin: 11/17/19 08:10 Dose: 40 mg Documented by: Benzocaine/Menthol (Cepacol Lozenge) 1 each MUCOUS MEM Q2H PRN PRN Reason: Sore Throat Bisacodyl (Dulcolax) 10 mg RECTAL DAILY PRN PRN Reason: Constipation Chlorhexidine Gluconate (Peridex) 15 ml MUCOUS MEM BID [facility] Last Admin: 11/17/19 08:10 Dose: 15 ml Documented by: Clopidogrel Bisulfate (Plavix) 75 mg PO DAILY [facility] Last Admin: 11/17/19 08:10 Dose: 75 mg Documented by: Ferrous Sulfate (Feosol) 300 mg PO BID-W/MEALS [facility] Last Admin: 11/17/19 08:08 Dose: 300 mg Documented by: Furosemide (Lasix) 40 mg IV Q12HR [facility] Last Admin: 11/17/19 08:10 Dose: 40 mg Documented by: Heparin Sodium (Porcine) (Heparin) 5,000 unit SQ Q8HR [facility] Amiodarone HCl 150 mg/ (Dextrose/Water) 103 mls @ 618 mls/hr IV .Q10M PRN; Protocol PRN Reason: A.FIB/FLUTTER Last Admin: 11/11/19 08:50 Dose: 618 mls/hr Documented by: Propofol 1,000 mg/ IV Solution 100 mls @ 0 mls/hr IV .Q0M [facility]; Protocol Last Titration: 11/17/19 14:40 Dose: 20 mcg/kg/min, 11.292 mls/hr Documented by: Vancomycin HCl 1,500 mg/ (Sodium Chloride) 250 mls @ 125 mls/hr IVPB Q16H [facility] Last Admin: 11/17/19 00:49 Dose: 125 mls/hr Documented by: Cefepime HCl 2 gm/ Sodium (Chloride) 100 mls @ 200 mls/hr IVPB Q12HR [facility] Last Admin: 11/17/19 08:10 Dose: 200 mls/hr Documented by: Insulin Aspart (Novolog) 0 unit SQ Q4HR [facility]; Protocol Last Admin: 11/17/19 11:58 Dose: 2 unit Documented by: Insulin Aspart (Novolog) 5 unit SQ Q4HR [facility] Last Admin: 11/17/19 11:59 Dose: 5 unit Documented by: Insulin Detemir (Levemir) 20 unit SQ [facility] Last Admin: 11/16/19 21:42 Dose: 20 unit Documented by: Magnesium Hydroxide (Milk Of Magnesia) 2,400 mg PO BID PRN PRN Reason: Constipation Metoprolol Tartrate (Lopressor) 12.5 mg PO BID [facility] Last Admin: 11/17/19 11:57 Dose: 12.5 mg Documented by: Miscellaneous Information (Magnesium Per Protocol) 1 each MISCELLANE DAILY PRN; Protocol PRN Reason: Per Protocol Miscellaneous Information (Potassium Per Protocol) 1 each MISCELLANE DAILY PRN; Protocol PRN Reason: Per Protocol Miscellaneous Information (Phosphorus Per Protocol) 1 each MISCELLANE DAILY PRN; Protocol PRN Reason: Per Protocol Nystatin (Mycostatin Oral Susp) 500,000 unit PO QID [facility] Last Admin: 11/17/19 11:59 Dose: 500,000 unit Documented by: Ondansetron HCl (Zofran) 4 mg IVP Q6HR PRN PRN Reason: Nausea And Vomiting Pantoprazole Sodium (Protonix) 40 mg PO AC-BRKFST [facility] Last Admin: 11/17/19 06:26 Dose: 40 mg Documented by: Senna/Docusate Sodium (Senokot-S) 2 each PO [facility] Last Admin: 11/16/19 20:00 Dose: 2 each Documented by: Silver Sulfadiazine (Silvadene Cream) 1 applic TOPICAL BID [facility] Last Admin: 11/17/19 08:27 Dose: 1 applic Documented by: Sodium Chloride (Saline Flush) 10 ml IV BID [facility] Last Admin: 11/17/19 08:27 Dose: 10 ml Documented by: Objective - Vital Signs Vital signs: Vital Signs Temp 98.8 F 11/17/19 12:00 Pulse 81 11/17/19 15:00 Resp 22 11/17/19 15:00 BP 106/61 11/16/19 08:00 Pulse Ox 96 11/17/19 15:00 Intake & Output 11/16/19 11/17/19 11/17/19 18:59 06:59 18:59 Intake Total 1527.45 1501.130 835.065 Output Total 1550 1485 1125 Balance -22.55 16.130 -289.935 Weight 94.1 kg 94.1 kg Intake: IV 467 482 199 .9NS @ 5ml/hr 45 60 45 Cefepime 2 gm In Sodium 100 100 100 Chloride 0.9% 100 ml @ 200 mls/hr IVPB Q12HR [facility] Rx#:[id number] Normal Saline Pressure 72 72 54 Bag Vancomycin 1,500 mg In 250 250 Sodium Chloride 0.9% 250 ml @ 125 mls/hr IVPB Q16H [facility] Rx#:[id number] Intake, IV Titration 262.45 335.130 90.065 Amount propofoL 1,000 mg In 262.45 335.130 90.065 Empty Bag 1 bag @ Titrate IV .Q0M [facility] Rx#: [id number] Tube Feeding 648 594 486 Other 150 90 60 Output: Urine 1550 1485 1125 Other: Voiding Method Indwelling Catheter Indwelling Catheter Indwelling Catheter ABP, PAP, CO, CI - Last Documented Arterial Blood Pressure 106/46 Pulmonary Artery Pressure 30/17 Cardiac Output 4.5 Cardiac Index 2.3 - Exam GENERAL: Patient is intubated and sedated. Temp is 98.8F, pulse is 81, respirations are 16, blood pressures 138/53, Oxygen saturation is 100% on mechanical ventilator with an FiO2 of 40 HEENT: Pupils are round and equally reacting to light. EOMI. No scleral icterus. No conjunctival pallor. Normocephalic, atraumatic. No pharyngeal erythema. No thyromegaly. triple lumen IJ Noted on the right. Dobbhoff tube feeding system noted CARDIOVASCULAR: S1 and S2 present. No murmurs, rubs, or gallops. PULMONARY: Diminished breath sounds bilaterally with some scattered rhonchi. ABDOMEN: Soft, nontender, nondistended, normoactive bowel sounds. No palpable organomegaly. MUSCULOSKELETAL: No joint swelling or deformity. EXTREMITIES: No cyanosis, clubbing, or pedal edema. NEUROLOGICAL: He is sedated on propofol drip SKIN: No rashes. Stage II pressure ulcer on coccyx with dressing applied - Labs CBC & Chem 7: 11/17/19 03:50 11/17/19 03:50 Labs: Abnormal Lab Results - Last 24 Hours (Table) 11/16/19 11/16/19 11/17/19 Range/Units 19:55 23:54 03:48 WBC (3.8-10.6) k/uL RBC (4.30-5.90) m/uL Hgb (13.0-17.5) gm/dL Hct (39.0-53.0) % RDW (11.5-15.5) % Neutrophils # (1.3-7.7) k/uL Eosinophils # (0-0.7) k/uL ABG pH (7.35-7.45) ABG HCO3 (21-25) mmol/L ABG Total CO2 (19-24) mmol/L ABG O2 Saturation (94-97) % Sodium (137-145) mmol/L BUN (9-20) mg/dL Glucose (74-99) mg/dL POC Glucose (mg/dL) 179 H 148 H 173 H (75-99) mg/dL Calcium (8.4-10.2) mg/dL AST (17-59) U/L ALT (4-49) U/L Alkaline Phosphatase (38-126) U/L Total Protein (6.3-8.2) g/dL Albumin (3.5-5.0) g/dL 11/17/19 11/17/19 11/17/19 Range/Units 03:50 03:50 07:51 WBC 15.0 H (3.8-10.6) k/uL RBC 2.37 L (4.30-5.90) m/uL Hgb 7.7 L (13.0-17.5) gm/dL Hct 23.7 L (39.0-53.0) % RDW 15.8 H (11.5-15.5) % Neutrophils # 11.1 H (1.3-7.7) k/uL Eosinophils # 0.8 H (0-0.7) k/uL ABG pH (7.35-7.45) ABG HCO3 (21-25) mmol/L ABG Total CO2 (19-24) mmol/L ABG O2 Saturation (94-97) % Sodium 136 L (137-145) mmol/L BUN 33 H (9-20) mg/dL Glucose 153 H (74-99) mg/dL POC Glucose (mg/dL) 147 H (75-99) mg/dL Calcium 7.7 L (8.4-10.2) mg/dL AST 130 H (17-59) U/L ALT 692 H (4-49) U/L Alkaline Phosphatase 195 H (38-126) U/L Total Protein 4.9 L (6.3-8.2) g/dL Albumin 2.6 L (3.5-5.0) g/dL 11/17/19 11/17/19 Range/Units 08:22 11:58 WBC (3.8-10.6) k/uL RBC (4.30-5.90) m/uL Hgb (13.0-17.5) gm/dL Hct (39.0-53.0) % RDW (11.5-15.5) % Neutrophils # (1.3-7.7) k/uL Eosinophils # (0-0.7) k/uL ABG pH 7.47 H (7.35-7.45) ABG HCO3 26 H (21-25) mmol/L ABG Total CO2 27 H (19-24) mmol/L ABG O2 Saturation 97.7 H (94-97) % Sodium (137-145) mmol/L BUN (9-20) mg/dL Glucose (74-99) mg/dL POC Glucose (mg/dL) 184 H (75-99) mg/dL Calcium (8.4-10.2) mg/dL AST (17-59) U/L ALT (4-49) U/L Alkaline Phosphatase (38-126) U/L Total Protein (6.3-8.2) g/dL Albumin (3.5-5.0) g/dL Microbiology - Last 24 Hours (Table) 11/10/19 21:15 Blood Culture - Final Blood No Growth after 144 hours 11/12/19 14:40 Blood Culture - Preliminary Blood No Growth after 96 hours 11/12/19 14:40 Blood Culture - Preliminary Blood No Growth after 96 hours Assessment and Plan Assessment: -Acute non-ST elevation myocardial infarction: Coronary artery diseasepatient is status post five-vessel coronary artery bypass grafting -Stage II pressure ulcer on coccyx -Postoperative metabolic encephalopathy -Acute respiratory failure hypoxic, patient had metabolic acidosis probably due to decreased organ perfusion presently intubated and sedated -New onset paroxysmal atrial fibrillation with RVR, Presently rate controlled -Leukocytosis reactive because of patient's lactic Acidosis and overall clinical condition -Possible congestive heart failure chronic diastolic dysfunction with acute exa cerbation -Low-grade fever probably because of atelectasis, improving -Hypertension -Hyperlipidemia -Type 2 diabetes mellitus -COPD without any acute exacerbation -Severe peripheral vascular disease -History of bladder cancer status post chemotherapy and radiation - nicotine use and marijuana use Plan: Continue current medications, management, and symptomatic treatment. Patient currently remains intubated and sedated in the ICU with discussion of possible attempts at weaning. Will continue to monitor closely. Multiple medical consultations following. Neurology consulted and pending at this time. Blood sugars continue to be elevated and Have increased long-acting to 20 units daily along with 5 units scheduled every 4 hours Along with sliding scale. Patient remains on tube feedings and will continue at this time. Patient also continues on IV cefepime and vancomycin and will continue at this time. Due to multiple complex medical conditions, prognosis is extremely guarded. Further recommendations to follow.
[2019-11-17 16:57] LABS: Glucose,Whole Blood 184 mg/dL (75-99)
--- NOTE | 2019-11-17 18:04 | P.CNNES ---
History of Present Illness Consult date: 11/17/19 Requesting physician: Elva Newberry Reason for Consult: Altered mental status, possible CVA History of Present Illness: Patient is a 64-year-old male, who is otherwise healthy male, came with subendocardial infarction and cardiac catheterization showed diffuse coronary artery disease with critical stenosis. Patient underwent coronary artery bypass grafting 5 on 11/08/2019. 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 after surgery, but then developed lactic acidosis, metabolic acidosis, hypotension respiratory failure requiring reintubation. He was noted to be somewhat confused after extubation. On 11/10/2027 it was reported patient was nonverbal, not answering questions and not following commands. Patient was noted to have slight weakness of the left side. Patient has Babinski noted. On 11/11/2019 patient developed atrial fibrillation with rapid ventricular rate, for which amiodarone was initiated. Patient had computed tomography scan of head without contrast on 11/11/2019, which revealed patchy periventricular and deep white matter changes, left greater than right, have significantly progressed from 01/09/2019. Areas of subacute ischemia are not excluded. Demyelinating disease or other infectious/inflammatory etiologies are also possible. Continues to be intubated. Agent had undergone CT head today, which showed no evidence of acute hemorrhage. Areas of patchy low attenuation left parietal white matter as previously noted are of indeterminate age and could be on the basis of subacute ischemia correlate clinically. No significant interval change. Degenerative and zita pected remote ischemic change. I reviewed the computed tomography scan of head. Carotid Doppler from 11/03/2019 showed bilateral plaque with findings compatible with 50-69% stenosis of the proximal right ICA by carotid Doppler ultrasound. 2-D echo from 11/12/2019 showed EF at low normal range of 50-59%. Mild aortic valve sclerosis. 2-D echo from 11/02/2019 showed moderate concentric LVH. EF 50-55%. Normal left atrial size. Moderate MR. Peripheral arterial Doppler showed at least moderate right femoral-popliteal disease and [id number] left femoral-popliteal disease. EKG shows sinus tachycardia with short MS interval. ST and T-wave abnormality. Possible lateral ischemia. Patient's blood test shows WBC 15.0 hemoglobin 7.7, elevated MCV 99.9, platelets 200. INR 1.5. Sodium 136 normal electrolytes, normal renal functions. Hemoglobin A1c 7.2 on 11/13/2019. AST is elevated 1:30, ALT 692. Ammonia is normal. CRP 78.9. Cholesterol 174, LDL 102, HDL 27 and triglycerides 227. TSH normal. Per nurse report, patient at this time is on propofol 20 g. When the sedation was discontinued earlier this morning, he was awake, but was not following commands. He has nonpurposeful movement, left better than right. No seizure- like activity noted. Review of Systems ROS unobtainable: due to endotracheal tube, due to mental status Past Medical History Past Medical History: Coronary Artery Disease (CAD), Cancer, Chest Pain / Angina, Diabetes Mellitus, Hypertension, Myocardial Infarction (ME), Skin Disorder Additional Past Medical History / Comment(s): Intermittent BILATERAL CLAUDICATION & NEW OCCURRENCE OF LEFT PLANTAR FASCITIS (DIFFICULT TO WALK). Hx of bladder ca with surgery, psoriases,eczema, hiatal hernia, umbilical hernia, kidney stones 2004. Last Myocardial Infarction Date:: 2015 History of Any Multi-Drug Resistant Organisms: None Reported Past Surgical History: Heart Catheterization With Stent Additional Past Surgical History / Comment(s): 10/20/15 last CARDIAC STENT-has had several previous cardiac stents, vasectomy, bladder sx x2 to remove tumors. L femoral artherectomy/STENT TO LT common ILIAC artery, 05/22/16 R femoral/popliteal atherectomy with PTBA/stent, angiograms, aortogram with run off. Past Anesthesia/Blood Transfusion Reactions: No Reported Reaction Additional Past Anesthesia/Blood Transfusion Reaction / Comment(s): CLAUSTROPHOBIC IN LARGE CROWDS Date of Last Stent Placement:: 10/20/15 Past Psychological History: No Psychological Hx Reported - Past Family History Father Family Medical History: Myocardial Infarction (ME) Additional Family Medical History / Comment(s): PT'S DAD WHEN PT WAS AGE 4 he believes from a myocardial infarction. Mother Family Medical History: Diabetes Mellitus, Hyperlipidemia, Hypertension, Vascular Disorder Medications and Allergies Home Medications Medication Instructions Recorded Confirmed Type Cholecalciferol [Vitamin D3 (25 1,000 unit PO DAILY #0 11/01/19 11/07/19 History Mcg = 1000 Iu)] Multivitamins, Thera [Multivitamin 1 tab PO DAILY 11/01/19 11/07/19 History (formulary)] Phytonadione (Vit K1) [Vitamin K-1] 100 mcg PO DAILY #0 11/01/19 11/07/19 History Turmeric Root Extract [Turmeric] 500 mg PO DAILY #0 11/01/19 11/07/19 History Aspirin 81 mg PO DAILY #30 chew 11/04/19 11/07/19 Rx Atorvastatin [Lipitor] 80 mg PO DAILY #30 tab 11/04/19 11/07/19 Rx Isosorbide Mononitrate ER [Imdur] 30 mg PO DAILY #30 tab.er.24h 11/04/19 11/07/19 Rx Metoprolol Tartrate [Lopressor] 25 mg PO BID #60 tab 11/04/19 11/07/19 Rx Nitroglycerin Sl Tabs [Nitrostat] 0.4 mg SUBLINGUAL Q5M PRN #30 tab 11/04/19 11/07/19 Rx metFORMIN HCL ER [Glucophage Xr] 500 mg PO BID #60 tab 11/04/19 11/07/19 Rx Ascorbic Acid [Vitamin C] 500 mg PO DAILY 11/05/19 11/07/19 History Cinnamon Bark [Cinnamon] 500 mg PO DAILY 11/05/19 11/07/19 History [place] Supplement 1 tab PO DAILY 11/05/19 11/07/19 History Milk Thistle 150 mg PO DAILY 11/05/19 11/07/19 History Saw [place] 500 mg PO DAILY 11/07/19 11/07/19 History Allergies Allergy/AdvReac Type Severity Reaction Status Date / Time ragweed pollen Allergy Unknown Verified 11/07/19 08:45 Physical Examination - Vital Signs Vital Signs: Vital Signs Temp Pulse Resp Pulse Ox 11/17/19 16:00 88 11/17/19 15:00 81 22 96 11/17/19 14:30 90 26 H 98 11/17/19 14:00 81 22 97 11/17/19 13:30 84 23 98 11/17/19 13:00 75 16 99 11/17/19 12:30 80 20 100 11/17/19 12:00 98.8 F 81 16 100 11/17/19 11:52 80 11/17/19 11:44 79 11/17/19 11:30 80 18 99 11/17/19 10:30 86 21 100 11/17/19 10:00 80 16 100 11/17/19 09:30 73 15 100 11/17/19 09:04 69 11/17/19 09:00 69 16 100 11/17/19 08:40 70 11/17/19 08:00 98.1 F 75 26 H 100 11/17/19 07:00 74 27 H 100 11/17/19 06:00 71 23 100 11/17/19 05:00 76 20 100 11/17/19 04:00 98.4 F 77 27 H 100 11/17/19 03:00 74 20 100 11/17/19 02:00 78 29 H 100 11/17/19 01:00 80 23 99 11/17/19 00:00 98.2 F 79 22 99 11/16/19 23:00 78 25 H 99 11/16/19 22:48 77 24 99 11/16/19 22:00 76 25 H 99 11/16/19 21:00 75 22 99 11/16/19 20:00 98.6 F 74 21 100 11/16/19 19:48 74 11/16/19 19:37 71 11/16/19 19:00 72 21 100 11/16/19 18:00 81 22 97 11/16/19 17:00 80 29 H 99 Intake and Output 11/17/19 11/17/19 11/17/19 06:59 14:59 22:59 Intake Total 1011.130 770.065 65 Output Total 795 1085 40 Balance 216.130 -314.935 25 Intake: IV 338 188 11 .9NS @ 5ml/hr 40 40 5 Cefepime 2 gm In Sodium 100 Chloride 0.9% 100 ml @ 200 mls/hr IVPB Q12HR YVAN Rx#:[id number] Normal Saline Pressure 48 48 6 Bag Vancomycin 1,500 mg In 250 Sodium Chloride 0.9% 250 ml @ 125 mls/hr IVPB Q16H YVAN Rx#:[id number] Intake, IV Titration 235.130 90.065 Amount propofoL 1,000 mg In 235.130 90.065 Empty Bag 1 bag @ Titrate IV .Q0M YVAN Rx#: [id number] Tube Feeding 378 432 54 Other 60 60 Output: Urine 795 1085 40 Other: Voiding Method Indwelling Catheter Indwelling Catheter Weight 94.1 kg 94.1 kg ABP, PAP, CO, CI - Last 8 Hours Arterial Blood Pressure 106/46 Arterial Blood Pressure 111/49 Arterial Blood Pressure 116/50 Arterial Blood Pressure 113/49 Arterial Blood Pressure 146/68 Arterial Blood Pressure 122/50 Arterial Blood Pressure 138/53 Arterial Blood Pressure 133/52 Arterial Blood Pressure 146/52 Arterial Blood Pressure 120/62 Arterial Blood Pressure 129/67 Arterial Blood Pressure 107/44 On examination patient is an elderly male, who is sedated on propofol 20 g. He is intubated on mechanical ventilation. Patient did open his eyes to calling his name, but did not follow command. Pupils are round and reacting to light. Oculocephalics are absent. Face could not be assessed. Tongue could not be assessed. Other cranial nerves could not be assessed. Patient did not follow commands. 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 Tone is equal bilaterally. Reflexes are diminished and patient has bilateral Babinski. Patient did not respond to noxious stimuli. Cerebellar functions could not be tested. Results - Laboratory Findings CBC and BMP: 11/17/19 03:50 11/17/19 03:50 Abnormal Lab Findings: Abnormal Labs 11/07/19 11/07/19 11/07/19 06:04 06:04 06:04 WBC 19.7 H RBC Hgb Hct RDW Plt Count Neutrophils # 16.2 H Lymphocytes # Monocytes # Eosinophils # PT INR APTT ABG pH ABG pCO2 ABG pO2 ABG HCO3 ABG Total CO2 ABG O2 Saturation ABG Hematocrit ABG Potassium ABG Ionized Calcium ABG Glucose ABG Lactic Acid Hemoglobin Sodium Potassium Chloride 108 H Carbon Dioxide 21 L BUN Creatinine Glucose 268 H POC Glucose (mg/dL) Hemoglobin A1c Plasma Lactic Acid Scott Calcium Phosphorus Magnesium 1.5 L Total Bilirubin AST ALT 64 H Alkaline Phosphatase Troponin I 0.139 H* C-Reactive Protein Total Protein Albumin Procalcitonin Arterial Blood Potassium Arterial Blood Glucose Urine Protein Urine Glucose (UA) Urine Ketones Urine Blood Ur Leukocyte Esterase Urine RBC Urine WBC Amorphous Sediment Urine Bacteria Hyaline Casts Urine Mucus Crossmatch 11/07/19 11/07/19 11/07/19 06:04 09:58 11:17 WBC RBC Hgb Hct RDW Plt Count Neutrophils # Lymphocytes # Monocytes # Eosinophils # PT INR APTT ABG pH ABG pCO2 ABG pO2 ABG HCO3 ABG Total CO2 ABG O2 Saturation ABG Hematocrit ABG Potassium ABG Ionized Calcium ABG Glucose ABG Lactic Acid Hemoglobin Sodium Potassium Chloride Carbon Dioxide BUN Creatinine Glucose POC Glucose (mg/dL) 308 H Hemoglobin A1c Plasma Lactic Acid Scott Calcium Phosphorus Magnesium Total Bilirubin AST ALT Alkaline Phosphatase Troponin I C-Reactive Protein Total Protein Albumin Procalcitonin Arterial Blood Potassium Arterial Blood Glucose Urine Protein Urine Glucose (UA) Trace H Urine Ketones Urine Blood Trace H Ur Leukocyte Esterase Urine RBC Urine WBC Amorphous Sediment Urine Bacteria Rare H Hyaline Casts 3 H Urine Mucus Rare H Crossmatch See Detail 11/07/19 11/07/19 11/07/19 14:07 16:45 19:53 WBC RBC Hgb Hct RDW Plt Count Neutrophils # Lymphocytes # Monocytes # Eosinophils # PT INR APTT 41.9 H 47.2 H ABG pH ABG pCO2 ABG pO2 ABG HCO3 ABG Total CO2 ABG O2 Saturation ABG Hematocrit ABG Potassium ABG Ionized Calcium ABG Glucose ABG Lactic Acid Hemoglobin Sodium Potassium Chloride Carbon Dioxide BUN Creatinine Glucose POC Glucose (mg/dL) 226 H Hemoglobin A1c Plasma Lactic Acid Scott Calcium Phosphorus Magnesium Total Bilirubin AST ALT Alkaline Phosphatase Troponin I C-Reactive Protein Total Protein Albumin Procalcitonin Arterial Blood Potassium Arterial Blood Glucose Urine Protein Urine Glucose (UA) Urine Ketones Urine Blood Ur Leukocyte Esterase Urine RBC Urine WBC Amorphous Sediment Urine Bacteria Hyaline Casts Urine Mucus Crossmatch 11/07/19 11/08/19 11/08/19 20:06 04:07 08:40 WBC 11.3 H RBC 4.22 L Hgb 12.8 L Hct RDW Plt Count Neutrophils # Lymphocytes # Monocytes # Eosinophils # PT INR APTT ABG pH ABG pCO2 ABG pO2 262 H ABG HCO3 ABG Total CO2 25 H ABG O2 Saturation 99.8 H ABG Hematocrit ABG Potassium ABG Ionized Calcium ABG Glucose 165 H ABG Lactic Acid Hemoglobin 11.9 L Sodium Potassium Chloride Carbon Dioxide BUN Creatinine Glucose POC Glucose (mg/dL) 171 H Hemoglobin A1c Plasma Lactic Acid Scott Calcium Phosphorus Magnesium Total Bilirubin AST ALT Alkaline Phosphatase Troponin I C-Reactive Protein Total Protein Albumin Procalcitonin Arterial Blood Potassium Arterial Blood Glucose 165 H Urine Protein Urine Glucose (UA) Urine Ketones Urine Blood Ur Leukocyte Esterase Urine RBC Urine WBC Amorphous Sediment Urine Bacteria Hyaline Casts Urine Mucus Crossmatch 11/08/19 11/08/19 11/08/19 10:24 11:08 11:33 WBC RBC Hgb Hct RDW Plt Count Neutrophils # Lymphocytes # Monocytes # Eosinophils # PT INR APTT ABG pH 7.33 L 7.25 L ABG pCO2 46 H ABG pO2 172 H >420 H 347 H ABG HCO3 19 L ABG Total CO2 26 H ABG O2 Saturation 99.1 H 99.8 H 99.8 H ABG Hematocrit 23 L 21 L ABG Potassium 3.2 L ABG Ionized Calcium 4.4 L 4.3 L ABG Glucose 162 H 266 H 218 H ABG Lactic Acid 4.4 H* 4.8 H* Hemoglobin 11.2 L 7.4 L 6.9 L* Sodium Potassium Chloride Carbon Dioxide BUN Creatinine Glucose POC Glucose (mg/dL) Hemoglobin A1c Plasma Lactic Acid Scott Calcium Phosphorus Magnesium Total Bilirubin AST ALT Alkaline Phosphatase Troponin I C-Reactive Protein Total Protein Albumin Procalcitonin Arterial Blood Potassium 3.2 L Arterial Blood Glucose 162 H 266 H 218 H Urine Protein Urine Glucose (UA) Urine Ketones Urine Blood Ur Leukocyte Esterase Urine RBC Urine WBC Amorphous Sediment Urine Bacteria Hyaline Casts Urine Mucus Crossmatch 11/08/19 11/08/19 11/08/19 11:58 12:36 13:00 WBC RBC Hgb Hct RDW Plt Count Neutrophils # Lymphocytes # Monocytes # Eosinophils # PT INR APTT ABG pH 7.34 L ABG pCO2 ABG pO2 322 H 312 H 290 H ABG HCO3 ABG Total CO2 25 H 26 H 26 H ABG O2 Saturation 99.8 H 99.9 H 99.7 H ABG Hematocrit 22 L 23 L 23 L ABG Potassium 3.2 L ABG Ionized Calcium 4.0 L 4.4 L 4.4 L ABG Glucose 183 H 170 H 159 H ABG Lactic Acid 4.2 H* 3.7 H* 3.3 H* Hemoglobin 7.1 L 7.4 L 7.4 L Sodium Potassium Chloride Carbon Dioxide BUN Creatinine Glucose POC Glucose (mg/dL) Hemoglobin A1c Plasma Lactic Acid Scott Calcium Phosphorus Magnesium Total Bilirubin AST ALT Alkaline Phosphatase Troponin I C-Reactive Protein Total Protein Albumin Procalcitonin Arterial Blood Potassium 3.2 L Arterial Blood Glucose 183 H 170 H 159 H Urine Protein Urine Glucose (UA) Urine Ketones Urine Blood Ur Leukocyte Esterase Urine RBC Urine WBC Amorphous Sediment Urine Bacteria Hyaline Casts Urine Mucus Crossmatch 11/08/19 11/08/19 11/08/19 13:35 14:02 14:26 WBC RBC Hgb Hct RDW Plt Count Neutrophils # Lymphocytes # Monocytes # Eosinophils # PT INR APTT ABG pH 7.33 L 7.32 L ABG pCO2 47 H ABG pO2 223 H 273 H 271 H ABG HCO3 ABG Total CO2 26 H 25 H ABG O2 Saturation 99.5 H 99.8 H 99.7 H ABG Hematocrit 23 L 23 L 25 L ABG Potassium ABG Ionized Calcium 4.4 L 4.2 L ABG Glucose 137 H 131 H 115 H ABG Lactic Acid 2.6 H* 2.9 H* 3.5 H* Hemoglobin 7.4 L 7.6 L 8.0 L Sodium Potassium Chloride Carbon Dioxide BUN Creatinine Glucose POC Glucose (mg/dL) Hemoglobin A1c Plasma Lactic Acid Scott Calcium Phosphorus Magnesium Total Bilirubin AST ALT Alkaline Phosphatase Troponin I C-Reactive Protein Total Protein Albumin Procalcitonin Arterial Blood Potassium Arterial Blood Glucose 137 H 131 H 115 H Urine Protein Urine Glucose (UA) Urine Ketones Urine Blood Ur Leukocyte Esterase Urine RBC Urine WBC Amorphous Sediment Urine Bacteria Hyaline Casts Urine Mucus Crossmatch 11/08/19 11/08/19 11/08/19 15:00 15:00 15:00 WBC 11.4 H RBC 2.61 L Hgb 8.2 L D Hct 24.7 L RDW Plt Count 78 L D Neutrophils # 8.6 H Lymphocytes # Monocytes # 1.1 H Eosinophils # PT 14.0 H INR 1.4 H APTT 92.5 H ABG pH ABG pCO2 ABG pO2 ABG HCO3 ABG Total CO2 ABG O2 Saturation ABG Hematocrit ABG Potassium ABG Ionized Calcium ABG Glucose ABG Lactic Acid Hemoglobin Sodium Potassium Chloride 109 H Carbon Dioxide BUN Creatinine Glucose POC Glucose (mg/dL) Hemoglobin A1c Plasma Lactic Acid Scott Calcium 7.0 L Phosphorus Magnesium Total Bilirubin AST 132 H ALT Alkaline Phosphatase 25 L Troponin I C-Reactive Protein Total Protein 3.8 L Albumin 2.5 L Procalcitonin Arterial Blood Potassium Arterial Blood Glucose Urine Protein Urine Glucose (UA) Urine Ketones Urine Blood Ur Leukocyte Esterase Urine RBC Urine WBC Amorphous Sediment Urine Bacteria Hyaline Casts Urine Mucus Crossmatch 11/08/19 11/08/19 11/08/19 15:04 15:25 16:06 WBC RBC Hgb Hct RDW Plt Count Neutrophils # Lymphocytes # Monocytes # Eosinophils # PT INR APTT ABG pH 7.32 L ABG pCO2 49 H ABG pO2 226 H ABG HCO3 ABG Total CO2 27 H ABG O2 Saturation 99.2 H ABG Hematocrit ABG Potassium ABG Ionized Calcium ABG Glucose ABG Lactic Acid Hemoglobin Sodium Potassium Chloride Carbon Dioxide BUN Creatinine Glucose POC Glucose (mg/dL) 109 H 144 H Hemoglobin A1c Plasma Lactic Acid Scott Calcium Phosphorus Magnesium Total Bilirubin AST ALT Alkaline Phosphatase Troponin I C-Reactive Protein Total Protein Albumin Procalcitonin Arterial Blood Potassium Arterial Blood Glucose Urine Protein Urine Glucose (UA) Urine Ketones Urine Blood Ur Leukocyte Esterase Urine RBC Urine WBC Amorphous Sediment Urine Bacteria Hyaline Casts Urine Mucus Crossmatch 11/08/19 11/08/19 11/08/19 17:03 18:06 18:07 WBC RBC 2.74 L Hgb 8.6 L Hct 25.5 L RDW Plt Count 85 L Neutrophils # 8.6 H Lymphocytes # 0.9 L Monocytes # Eosinophils # PT INR APTT ABG pH ABG pCO2 ABG pO2 ABG HCO3 ABG Total CO2 ABG O2 Saturation ABG Hematocrit ABG Potassium ABG Ionized Calcium ABG Glucose ABG Lactic Acid Hemoglobin Sodium Potassium Chloride Carbon Dioxide BUN Creatinine Glucose POC Glucose (mg/dL) 172 H 179 H Hemoglobin A1c Plasma Lactic Acid Scott Calcium Phosphorus Magnesium Total Bilirubin AST ALT Alkaline Phosphatase Troponin I C-Reactive Protein Total Protein Albumin Procalcitonin Arterial Blood Potassium Arterial Blood Glucose Urine Protein Urine Glucose (UA) Urine Ketones Urine Blood Ur Leukocyte Esterase Urine RBC Urine WBC Amorphous Sediment Urine Bacteria Hyaline Casts Urine Mucus Crossmatch 11/08/19 11/08/19 11/08/19 18:40 18:57 20:15 WBC 10.7 H RBC 2.69 L Hgb 8.3 L Hct 25.0 L RDW Plt Count 98 L Neutrophils # 8.7 H Lymphocytes # Monocytes # Eosinophils # PT INR APTT ABG pH ABG pCO2 33 L ABG pO2 115 H ABG HCO3 ABG Total CO2 ABG O2 Saturation 98.6 H ABG Hematocrit ABG Potassium ABG Ionized Calcium ABG Glucose ABG Lactic Acid Hemoglobin Sodium Potassium Chloride Carbon Dioxide BUN Creatinine Glucose POC Glucose (mg/dL) 188 H Hemoglobin A1c Plasma Lactic Acid Scott Calcium Phosphorus Magnesium Total Bilirubin AST ALT Alkaline Phosphatase Troponin I C-Reactive Protein Total Protein Albumin Procalcitonin Arterial Blood Potassium Arterial Blood Glucose Urine Protein Urine Glucose (UA) Urine Ketones Urine Blood Ur Leukocyte Esterase Urine RBC Urine WBC Amorphous Sediment Urine Bacteria Hyaline Casts Urine Mucus Crossmatch 11/08/19 11/08/19 11/08/19 20:15 20:16 20:16 WBC RBC Hgb Hct RDW Plt Count Neutrophils # Lymphocytes # Monocytes # Eosinophils # PT INR APTT ABG pH ABG pCO2 ABG pO2 121 H ABG HCO3 ABG Total CO2 25 H ABG O2 Saturation 98.5 H ABG Hematocrit ABG Potassium ABG Ionized Calcium ABG Glucose ABG Lactic Acid Hemoglobin Sodium Potassium Chloride 109 H Carbon Dioxide BUN Creatinine Glucose 147 H POC Glucose (mg/dL) 155 H Hemoglobin A1c Plasma Lactic Acid Scott Calcium 8.0 L Phosphorus Magnesium Total Bilirubin AST ALT Alkaline Phosphatase Troponin I C-Reactive Protein Total Protein Albumin Procalcitonin Arterial Blood Potassium Arterial Blood Glucose Urine Protein Urine Glucose (UA) Urine Ketones Urine Blood Ur Leukocyte Esterase Urine RBC Urine WBC Amorphous Sediment Urine Bacteria Hyaline Casts Urine Mucus Crossmatch 11/08/19 11/08/19 11/09/19 21:21 22:43 00:05 WBC RBC Hgb Hct RDW Plt Count Neutrophils # Lymphocytes # Monocytes # Eosinophils # PT INR APTT ABG pH ABG pCO2 ABG pO2 ABG HCO3 ABG Total CO2 ABG O2 Saturation ABG Hematocrit ABG Potassium ABG Ionized Calcium ABG Glucose ABG Lactic Acid Hemoglobin Sodium Potassium Chloride Carbon Dioxide BUN Creatinine Glucose POC Glucose (mg/dL) 156 H 142 H 123 H Hemoglobin A1c Plasma Lactic Acid Scott Calcium Phosphorus Magnesium Total Bilirubin AST ALT Alkaline Phosphatase Troponin I C-Reactive Protein Total Protein Albumin Procalcitonin Arterial Blood Potassium Arterial Blood Glucose Urine Protein Urine Glucose (UA) Urine Ketones Urine Blood Ur Leukocyte Esterase Urine RBC Urine WBC Amorphous Sediment Urine Bacteria Hyaline Casts Urine Mucus Crossmatch 11/09/19 11/09/19 11/09/19 01:00 02:03 03:19 WBC RBC Hgb Hct RDW Plt Count Neutrophils # Lymphocytes # Monocytes # Eosinophils # PT INR APTT ABG pH ABG pCO2 ABG pO2 ABG HCO3 ABG Total CO2 ABG O2 Saturation ABG Hematocrit ABG Potassium ABG Ionized Calcium ABG Glucose ABG Lactic Acid Hemoglobin Sodium Potassium Chloride Carbon Dioxide BUN Creatinine Glucose POC Glucose (mg/dL) 114 H 135 H 127 H Hemoglobin A1c Plasma Lactic Acid Scott Calcium Phosphorus Magnesium Total Bilirubin AST ALT Alkaline Phosphatase Troponin I C-Reactive Protein Total Protein Albumin Procalcitonin Arterial Blood Potassium Arterial Blood Glucose Urine Protein Urine Glucose (UA) Urine Ketones Urine Blood Ur Leukocyte Esterase Urine RBC Urine WBC Amorphous Sediment Urine Bacteria Hyaline Casts Urine Mucus Crossmatch 11/09/19 11/09/19 11/09/19 04:22 04:22 04:25 WBC 11.2 H RBC 2.55 L Hgb 7.9 L Hct 23.6 L RDW Plt Count 102 L Neutrophils # 8.7 H Lymphocytes # Monocytes # Eosinophils # PT INR APTT ABG pH ABG pCO2 ABG pO2 ABG HCO3 ABG Total CO2 ABG O2 Saturation ABG Hematocrit ABG Potassium ABG Ionized Calcium ABG Glucose ABG Lactic Acid Hemoglobin Sodium Potassium Chloride Carbon Dioxide BUN Creatinine Glucose 106 H POC Glucose (mg/dL) 125 H Hemoglobin A1c Plasma Lactic Acid Scott Calcium 8.2 L Phosphorus Magnesium Total Bilirubin AST 206 H ALT Alkaline Phosphatase 34 L Troponin I C-Reactive Protein Total Protein 4.5 L Albumin 2.9 L Procalcitonin Arterial Blood Potassium Arterial Blood Glucose Urine Protein Urine Glucose (UA) Urine Ketones Urine Blood Ur Leukocyte Esterase Urine RBC Urine WBC Amorphous Sediment Urine Bacteria Hyaline Casts Urine Mucus Crossmatch 11/09/19 11/09/19 11/09/19 05:11 07:45 09:10 WBC RBC Hgb Hct RDW Plt Count Neutrophils # Lymphocytes # Monocytes # Eosinophils # PT INR APTT ABG pH ABG pCO2 ABG pO2 ABG HCO3 ABG Total CO2 ABG O2 Saturation ABG Hematocrit ABG Potassium ABG Ionized Calcium ABG Glucose ABG Lactic Acid Hemoglobin Sodium Potassium Chloride Carbon Dioxide BUN Creatinine Glucose POC Glucose (mg/dL) 123 H 155 H 176 H Hemoglobin A1c Plasma Lactic Acid Scott Calcium Phosphorus Magnesium Total Bilirubin AST ALT Alkaline Phosphatase Troponin I C-Reactive Protein Total Protein Albumin Procalcitonin Arterial Blood Potassium Arterial Blood Glucose Urine Protein Urine Glucose (UA) Urine Ketones Urine Blood Ur Leukocyte Esterase Urine RBC Urine WBC Amorphous Sediment Urine Bacteria Hyaline Casts Urine Mucus Crossmatch 11/09/19 11/09/19 11/09/19 10:09 11:12 12:11 WBC RBC Hgb Hct RDW Plt Count Neutrophils # Lymphocytes # Monocytes # Eosinophils # PT INR APTT ABG pH ABG pCO2 ABG pO2 ABG HCO3 ABG Total CO2 ABG O2 Saturation ABG Hematocrit ABG Potassium ABG Ionized Calcium ABG Glucose ABG Lactic Acid Hemoglobin Sodium Potassium Chloride Carbon Dioxide BUN Creatinine Glucose POC Glucose (mg/dL) 197 H 186 H 168 H Hemoglobin A1c Plasma Lactic Acid Scott Calcium Phosphorus Magnesium Total Bilirubin AST ALT Alkaline Phosphatase Troponin I C-Reactive Protein Total Protein Albumin Procalcitonin Arterial Blood Potassium Arterial Blood Glucose Urine Protein Urine Glucose (UA) Urine Ketones Urine Blood Ur Leukocyte Esterase Urine RBC Urine WBC Amorphous Sediment Urine Bacteria Hyaline Casts Urine Mucus Crossmatch 11/09/19 11/09/19 11/09/19 13:06 14:00 15:05 WBC RBC Hgb Hct RDW Plt Count Neutrophils # Lymphocytes # Monocytes # Eosinophils # PT INR APTT ABG pH ABG pCO2 ABG pO2 ABG HCO3 ABG Total CO2 ABG O2 Saturation ABG Hematocrit ABG Potassium ABG Ionized Calcium ABG Glucose ABG Lactic Acid Hemoglobin Sodium Potassium Chloride Carbon Dioxide BUN Creatinine Glucose POC Glucose (mg/dL) 144 H 146 H 144 H Hemoglobin A1c Plasma Lactic Acid Scott Calcium Phosphorus Magnesium Total Bilirubin AST ALT Alkaline Phosphatase Troponin I C-Reactive Protein Total Protein Albumin Procalcitonin Arterial Blood Potassium Arterial Blood Glucose Urine Protein Urine Glucose (UA) Urine Ketones Urine Blood Ur Leukocyte Esterase Urine RBC Urine WBC Amorphous Sediment Urine Bacteria Hyaline Casts Urine Mucus Crossmatch 11/09/19 11/09/19 11/09/19 15:53 16:51 18:00 WBC RBC Hgb Hct RDW Plt Count Neutrophils # Lymphocytes # Monocytes # Eosinophils # PT INR APTT ABG pH ABG pCO2 ABG pO2 ABG HCO3 ABG Total CO2 ABG O2 Saturation ABG Hematocrit ABG Potassium ABG Ionized Calcium ABG Glucose ABG Lactic Acid Hemoglobin Sodium Potassium Chloride Carbon Dioxide BUN Creatinine Glucose POC Glucose (mg/dL) 120 H 120 H 123 H Hemoglobin A1c Plasma Lactic Acid Scott Calcium Phosphorus Magnesium Total Bilirubin AST ALT Alkaline Phosphatase Troponin I C-Reactive Protein Total Protein Albumin Procalcitonin Arterial Blood Potassium Arterial Blood Glucose Urine Protein Urine Glucose (UA) Urine Ketones Urine Blood Ur Leukocyte Esterase Urine RBC Urine WBC Amorphous Sediment Urine Bacteria Hyaline Casts Urine Mucus Crossmatch 11/09/19 11/09/19 11/09/19 18:56 19:59 22:01 WBC RBC Hgb Hct RDW Plt Count Neutrophils # Lymphocytes # Monocytes # Eosinophils # PT INR APTT ABG pH ABG pCO2 ABG pO2 ABG HCO3 ABG Total CO2 ABG O2 Saturation ABG Hematocrit ABG Potassium ABG Ionized Calcium ABG Glucose ABG Lactic Acid Hemoglobin Sodium Potassium Chloride Carbon Dioxide BUN Creatinine Glucose POC Glucose (mg/dL) 129 H 112 H 141 H Hemoglobin A1c Plasma Lactic Acid Scott Calcium Phosphorus Magnesium Total Bilirubin AST ALT Alkaline Phosphatase Troponin I C-Reactive Protein Total Protein Albumin Procalcitonin Arterial Blood Potassium Arterial Blood Glucose Urine Protein Urine Glucose (UA) Urine Ketones Urine Blood Ur Leukocyte Esterase Urine RBC Urine WBC Amorphous Sediment Urine Bacteria Hyaline Casts Urine Mucus Crossmatch 11/10/19 11/10/19 11/10/19 00:09 02:01 04:15 WBC 12.7 H RBC 2.21 L Hgb 7.0 L Hct 20.6 L RDW Plt Count 102 L Neutrophils # 9.4 H Lymphocytes # Monocytes # 1.1 H Eosinophils # PT INR APTT ABG pH ABG pCO2 ABG pO2 ABG HCO3 ABG Total CO2 ABG O2 Saturation ABG Hematocrit ABG Potassium ABG Ionized Calcium ABG Glucose ABG Lactic Acid Hemoglobin Sodium Potassium Chloride Carbon Dioxide BUN Creatinine Glucose POC Glucose (mg/dL) 149 H 134 H Hemoglobin A1c Plasma Lactic Acid Scott Calcium Phosphorus Magnesium Total Bilirubin AST ALT Alkaline Phosphatase Troponin I C-Reactive Protein Total Protein Albumin Procalcitonin Arterial Blood Potassium Arterial Blood Glucose Urine Protein Urine Glucose (UA) Urine Ketones Urine Blood Ur Leukocyte Esterase Urine RBC Urine WBC Amorphous Sediment Urine Bacteria Hyaline Casts Urine Mucus Crossmatch 11/10/19 11/10/19 11/10/19 04:15 04:15 06:07 WBC RBC Hgb Hct RDW Plt Count Neutrophils # Lymphocytes # Monocytes # Eosinophils # PT INR APTT ABG pH ABG pCO2 ABG pO2 ABG HCO3 ABG Total CO2 ABG O2 Saturation ABG Hematocrit ABG Potassium ABG Ionized Calcium ABG Glucose ABG Lactic Acid Hemoglobin Sodium 136 L Potassium Chloride 108 H Carbon Dioxide 21 L BUN 24 H Creatinine Glucose 103 H POC Glucose (mg/dL) 127 H 145 H Hemoglobin A1c Plasma Lactic Acid Scott Calcium 8.0 L Phosphorus Magnesium 2.5 H Total Bilirubin AST 164 H ALT 67 H Alkaline Phosphatase Troponin I C-Reactive Protein Total Protein 4.8 L Albumin 3.1 L Procalcitonin Arterial Blood Potassium Arterial Blood Glucose Urine Protein Urine Glucose (UA) Urine Ketones Urine Blood Ur Leukocyte Esterase Urine RBC Urine WBC Amorphous Sediment Urine Bacteria Hyaline Casts Urine Mucus Crossmatch 11/10/19 11/10/19 11/10/19 08:01 09:08 10:14 WBC RBC Hgb Hct RDW Plt Count Neutrophils # Lymphocytes # Monocytes # Eosinophils # PT INR APTT ABG pH ABG pCO2 ABG pO2 ABG HCO3 ABG Total CO2 ABG O2 Saturation ABG Hematocrit ABG Potassium ABG Ionized Calcium ABG Glucose ABG Lactic Acid Hemoglobin Sodium Potassium Chloride Carbon Dioxide BUN Creatinine Glucose POC Glucose (mg/dL) 132 H 144 H 138 H Hemoglobin A1c Plasma Lactic Acid Scott Calcium Phosphorus Magnesium Total Bilirubin AST ALT Alkaline Phosphatase Troponin I C-Reactive Protein Total Protein Albumin Procalcitonin Arterial Blood Potassium Arterial Blood Glucose Urine Protein Urine Glucose (UA) Urine Ketones Urine Blood Ur Leukocyte Esterase Urine RBC Urine WBC Amorphous Sediment Urine Bacteria Hyaline Casts Urine Mucus Crossmatch 11/10/19 11/10/19 11/10/19 11:06 13:41 15:07 WBC RBC Hgb Hct RDW Plt Count Neutrophils # Lymphocytes # Monocytes # Eosinophils # PT INR APTT ABG pH ABG pCO2 ABG pO2 ABG HCO3 ABG Total CO2 ABG O2 Saturation ABG Hematocrit ABG Potassium ABG Ionized Calcium ABG Glucose ABG Lactic Acid Hemoglobin Sodium Potassium Chloride Carbon Dioxide BUN Creatinine Glucose POC Glucose (mg/dL) 138 H 204 H 170 H Hemoglobin A1c Plasma Lactic Acid Scott Calcium Phosphorus Magnesium Total Bilirubin AST ALT Alkaline Phosphatase Troponin I C-Reactive Protein Total Protein Albumin Procalcitonin Arterial Blood Potassium Arterial Blood Glucose Urine Protein Urine Glucose (UA) Urine Ketones Urine Blood Ur Leukocyte Esterase Urine RBC Urine WBC Amorphous Sediment Urine Bacteria Hyaline Casts Urine Mucus Crossmatch 11/10/19 11/10/19 11/10/19 16:01 17:13 18:10 WBC RBC Hgb Hct RDW Plt Count Neutrophils # Lymphocytes # Monocytes # Eosinophils # PT INR APTT ABG pH ABG pCO2 ABG pO2 ABG HCO3 ABG Total CO2 ABG O2 Saturation ABG Hematocrit ABG Potassium ABG Ionized Calcium ABG Glucose ABG Lactic Acid Hemoglobin Sodium Potassium Chloride Carbon Dioxide BUN Creatinine Glucose POC Glucose (mg/dL) 147 H 188 H 282 H Hemoglobin A1c Plasma Lactic Acid Scott Calcium Phosphorus Magnesium Total Bilirubin AST ALT Alkaline Phosphatase Troponin I C-Reactive Protein Total Protein Albumin Procalcitonin Arterial Blood Potassium Arterial Blood Glucose Urine Protein Urine Glucose (UA) Urine Ketones Urine Blood Ur Leukocyte Esterase Urine RBC Urine WBC Amorphous Sediment Urine Bacteria Hyaline Casts Urine Mucus Crossmatch 11/10/19 11/10/19 11/10/19 19:06 20:04 21:32 WBC RBC Hgb Hct RDW Plt Count Neutrophils # Lymphocytes # Monocytes # Eosinophils # PT INR APTT ABG pH ABG pCO2 ABG pO2 ABG HCO3 ABG Total CO2 ABG O2 Saturation ABG Hematocrit ABG Potassium ABG Ionized Calcium ABG Glucose ABG Lactic Acid Hemoglobin Sodium Potassium Chloride Carbon Dioxide BUN Creatinine Glucose POC Glucose (mg/dL) 202 H 159 H 124 H Hemoglobin A1c Plasma Lactic Acid Scott Calcium Phosphorus Magnesium Total Bilirubin AST ALT Alkaline Phosphatase Troponin I C-Reactive Protein Total Protein Albumin Procalcitonin Arterial Blood Potassium Arterial Blood Glucose Urine Protein Urine Glucose (UA) Urine Ketones Urine Blood Ur Leukocyte Esterase Urine RBC Urine WBC Amorphous Sediment Urine Bacteria Hyaline Casts Urine Mucus Crossmatch 11/10/19 11/10/19 11/11/19 22:48 23:35 02:19 WBC RBC Hgb Hct RDW Plt Count Neutrophils # Lymphocytes # Monocytes # Eosinophils # PT INR APTT ABG pH ABG pCO2 ABG pO2 ABG HCO3 ABG Total CO2 ABG O2 Saturation ABG Hematocrit ABG Potassium ABG Ionized Calcium ABG Glucose ABG Lactic Acid Hemoglobin Sodium Potassium Chloride Carbon Dioxide BUN Creatinine Glucose POC Glucose (mg/dL) 143 H 138 H 143 H Hemoglobin A1c Plasma Lactic Acid Scott Calcium Phosphorus Magnesium Total Bilirubin AST ALT Alkaline Phosphatase Troponin I C-Reactive Protein Total Protein Albumin Procalcitonin Arterial Blood Potassium Arterial Blood Glucose Urine Protein Urine Glucose (UA) Urine Ketones Urine Blood Ur Leukocyte Esterase Urine RBC Urine WBC Amorphous Sediment Urine Bacteria Hyaline Casts Urine Mucus Crossmatch 11/11/19 11/11/19 11/11/19 04:44 04:45 04:45 WBC 14.1 H RBC 2.12 L Hgb 6.7 L* Hct 20.0 L RDW Plt Count 124 L Neutrophils # 11.2 H Lymphocytes # Monocytes # Eosinophils # PT INR APTT ABG pH ABG pCO2 ABG pO2 ABG HCO3 ABG Total CO2 ABG O2 Saturation ABG Hematocrit ABG Potassium ABG Ionized Calcium ABG Glucose ABG Lactic Acid Hemoglobin Sodium 135 L Potassium Chloride Carbon Dioxide BUN 29 H Creatinine Glucose 122 H POC Glucose (mg/dL) 145 H Hemoglobin A1c Plasma Lactic Acid Scott Calcium 8.0 L Phosphorus Magnesium Total Bilirubin AST 119 H ALT 87 H Alkaline Phosphatase Troponin I C-Reactive Protein Total Protein 4.8 L Albumin 3.0 L Procalcitonin Arterial Blood Potassium Arterial Blood Glucose Urine Protein Urine Glucose (UA) Urine Ketones Urine Blood Ur Leukocyte Esterase Urine RBC Urine WBC Amorphous Sediment Urine Bacteria Hyaline Casts Urine Mucus Crossmatch 11/11/19 11/11/19 11/11/19 06:25 06:25 07:36 WBC 14.1 H RBC 2.11 L Hgb 6.7 L* Hct 20.1 L RDW Plt Count 123 L Neutrophils # Lymphocytes # Monocytes # Eosinophils # PT INR APTT ABG pH ABG pCO2 ABG pO2 ABG HCO3 ABG Total CO2 ABG O2 Saturation ABG Hematocrit ABG Potassium ABG Ionized Calcium ABG Glucose ABG Lactic Acid Hemoglobin Sodium Potassium Chloride Carbon Dioxide BUN Creatinine Glucose POC Glucose (mg/dL) 262 H Hemoglobin A1c Plasma Lactic Acid Scott Calcium Phosphorus Magnesium Total Bilirubin AST ALT Alkaline Phosphatase Troponin I C-Reactive Protein Total Protein Albumin Procalcitonin Arterial Blood Potassium Arterial Blood Glucose Urine Protein Urine Glucose (UA) Urine Ketones Urine Blood Ur Leukocyte Esterase Urine RBC Urine WBC Amorphous Sediment Urine Bacteria Hyaline Casts Urine Mucus Crossmatch See Detail 11/11/19 11/11/19 11/11/19 09:09 09:52 11:05 WBC RBC Hgb Hct RDW Plt Count Neutrophils # Lymphocytes # Monocytes # Eosinophils # PT INR APTT ABG pH ABG pCO2 ABG pO2 ABG HCO3 ABG Total CO2 ABG O2 Saturation ABG Hematocrit ABG Potassium ABG Ionized Calcium ABG Glucose ABG Lactic Acid Hemoglobin Sodium Potassium Chloride Carbon Dioxide BUN Creatinine Glucose POC Glucose (mg/dL) 216 H 163 H 153 H Hemoglobin A1c Plasma Lactic Acid Scott Calcium Phosphorus Magnesium Total Bilirubin AST ALT Alkaline Phosphatase Troponin I C-Reactive Protein Total Protein Albumin Procalcitonin Arterial Blood Potassium Arterial Blood Glucose Urine Protein Urine Glucose (UA) Urine Ketones Urine Blood Ur Leukocyte Esterase Urine RBC Urine WBC Amorphous Sediment Urine Bacteria Hyaline Casts Urine Mucus Crossmatch 11/11/19 11/11/19 11/11/19 11:54 13:17 15:37 WBC 14.5 H RBC 2.41 L Hgb 7.7 L Hct 22.6 L RDW Plt Count 125 L Neutrophils # Lymphocytes # Monocytes # Eosinophils # PT INR APTT ABG pH ABG pCO2 ABG pO2 ABG HCO3 ABG Total CO2 ABG O2 Saturation ABG Hematocrit ABG Potassium ABG Ionized Calcium ABG Glucose ABG Lactic Acid Hemoglobin Sodium Potassium Chloride Carbon Dioxide BUN Creatinine Glucose POC Glucose (mg/dL) 164 H 180 H Hemoglobin A1c Plasma Lactic Acid Scott Calcium Phosphorus Magnesium Total Bilirubin AST ALT Alkaline Phosphatase Troponin I C-Reactive Protein Total Protein Albumin Procalcitonin Arterial Blood Potassium Arterial Blood Glucose Urine Protein Urine Glucose (UA) Urine Ketones Urine Blood Ur Leukocyte Esterase Urine RBC Urine WBC Amorphous Sediment Urine Bacteria Hyaline Casts Urine Mucus Crossmatch 11/11/19 11/11/19 11/11/19 15:40 16:58 17:57 WBC RBC Hgb Hct RDW Plt Count Neutrophils # Lymphocytes # Monocytes # Eosinophils # PT INR APTT ABG pH ABG pCO2 ABG pO2 ABG HCO3 ABG Total CO2 ABG O2 Saturation ABG Hematocrit ABG Potassium ABG Ionized Calcium ABG Glucose ABG Lactic Acid Hemoglobin Sodium Potassium Chloride Carbon Dioxide BUN Creatinine Glucose POC Glucose (mg/dL) 167 H 143 H 135 H Hemoglobin A1c Plasma Lactic Acid Scott Calcium Phosphorus Magnesium Total Bilirubin AST ALT Alkaline Phosphatase Troponin I C-Reactive Protein Total Protein Albumin Procalcitonin Arterial Blood Potassium Arterial Blood Glucose Urine Protein Urine Glucose (UA) Urine Ketones Urine Blood Ur Leukocyte Esterase Urine RBC Urine WBC Amorphous Sediment Urine Bacteria Hyaline Casts Urine Mucus Crossmatch 11/11/19 11/11/19 11/11/19 18:52 20:35 22:24 WBC RBC Hgb Hct RDW Plt Count Neutrophils # Lymphocytes # Monocytes # Eosinophils # PT INR APTT ABG pH ABG pCO2 ABG pO2 ABG HCO3 ABG Total CO2 ABG O2 Saturation ABG Hematocrit ABG Potassium ABG Ionized Calcium ABG Glucose ABG Lactic Acid Hemoglobin Sodium Potassium Chloride Carbon Dioxide BUN Creatinine Glucose POC Glucose (mg/dL) 156 H 149 H 147 H Hemoglobin A1c Plasma Lactic Acid Scott Calcium Phosphorus Magnesium Total Bilirubin AST ALT Alkaline Phosphatase Troponin I C-Reactive Protein Total Protein Albumin Procalcitonin Arterial Blood Potassium Arterial Blood Glucose Urine Protein Urine Glucose (UA) Urine Ketones Urine Blood Ur Leukocyte Esterase Urine RBC Urine WBC Amorphous Sediment Urine Bacteria Hyaline Casts Urine Mucus Crossmatch 11/11/19 11/12/19 11/12/19 23:03 02:14 03:01 WBC RBC Hgb Hct RDW Plt Count Neutrophils # Lymphocytes # Monocytes # Eosinophils # PT INR APTT ABG pH ABG pCO2 ABG pO2 ABG HCO3 ABG Total CO2 ABG O2 Saturation ABG Hematocrit ABG Potassium ABG Ionized Calcium ABG Glucose ABG Lactic Acid Hemoglobin Sodium Potassium Chloride Carbon Dioxide BUN Creatinine Glucose POC Glucose (mg/dL) 123 H 113 H 150 H Hemoglobin A1c Plasma Lactic Acid Scott Calcium Phosphorus Magnesium Total Bilirubin AST ALT Alkaline Phosphatase Troponin I C-Reactive Protein Total Protein Albumin Procalcitonin Arterial Blood Potassium Arterial Blood Glucose Urine Protein Urine Glucose (UA) Urine Ketones Urine Blood Ur Leukocyte Esterase Urine RBC Urine WBC Amorphous Sediment Urine Bacteria Hyaline Casts Urine Mucus Crossmatch 11/12/19 11/12/19 11/12/19 03:59 05:03 05:05 WBC 17.6 H RBC 2.92 L Hgb 9.3 L D Hct 27.3 L RDW Plt Count 133 L Neutrophils # 13.7 H Lymphocytes # Monocytes # 1.3 H Eosinophils # PT INR APTT ABG pH ABG pCO2 ABG pO2 ABG HCO3 ABG Total CO2 ABG O2 Saturation ABG Hematocrit ABG Potassium ABG Ionized Calcium ABG Glucose ABG Lactic Acid Hemoglobin Sodium Potassium Chloride Carbon Dioxide BUN Creatinine Glucose POC Glucose (mg/dL) 129 H 138 H Hemoglobin A1c Plasma Lactic Acid Scott Calcium Phosphorus Magnesium Total Bilirubin AST ALT Alkaline Phosphatase Troponin I C-Reactive Protein Total Protein Albumin Procalcitonin Arterial Blood Potassium Arterial Blood Glucose Urine Protein Urine Glucose (UA) Urine Ketones Urine Blood Ur Leukocyte Esterase Urine RBC Urine WBC Amorphous Sediment Urine Bacteria Hyaline Casts Urine Mucus Crossmatch 11/12/19 11/12/19 11/12/19 05:05 06:04 09:23 WBC RBC Hgb Hct RDW Plt Count Neutrophils # Lymphocytes # Monocytes # Eosinophils # PT INR APTT ABG pH ABG pCO2 ABG pO2 ABG HCO3 ABG Total CO2 ABG O2 Saturation ABG Hematocrit ABG Potassium ABG Ionized Calcium ABG Glucose ABG Lactic Acid Hemoglobin Sodium Potassium Chloride 108 H Carbon Dioxide 20 L BUN 39 H Creatinine Glucose 107 H POC Glucose (mg/dL) 138 H 156 H Hemoglobin A1c Plasma Lactic Acid Scott Calcium 7.9 L Phosphorus Magnesium Total Bilirubin AST ALT Alkaline Phosphatase Troponin I C-Reactive Protein Total Protein Albumin Procalcitonin Arterial Blood Potassium Arterial Blood Glucose Urine Protein Urine Glucose (UA) Urine Ketones Urine Blood Ur Leukocyte Esterase Urine RBC Urine WBC Amorphous Sediment Urine Bacteria Hyaline Casts Urine Mucus Crossmatch 11/12/19 11/12/19 11/12/19 10:18 10:53 11:50 WBC RBC Hgb Hct RDW Plt Count Neutrophils # Lymphocytes # Monocytes # Eosinophils # PT INR APTT ABG pH ABG pCO2 ABG pO2 ABG HCO3 ABG Total CO2 ABG O2 Saturation ABG Hematocrit ABG Potassium ABG Ionized Calcium ABG Glucose ABG Lactic Acid Hemoglobin Sodium Potassium Chloride Carbon Dioxide BUN Creatinine Glucose POC Glucose (mg/dL) 166 H 176 H 155 H Hemoglobin A1c Plasma Lactic Acid Scott Calcium Phosphorus Magnesium Total Bilirubin AST ALT Alkaline Phosphatase Troponin I C-Reactive Protein Total Protein Albumin Procalcitonin Arterial Blood Potassium Arterial Blood Glucose Urine Protein Urine Glucose (UA) Urine Ketones Urine Blood Ur Leukocyte Esterase Urine RBC Urine WBC Amorphous Sediment Urine Bacteria Hyaline Casts Urine Mucus Crossmatch 11/12/19 11/12/19 11/12/19 14:01 14:09 14:40 WBC 17.7 H RBC 2.51 L Hgb 7.8 L D Hct 24.4 L RDW Plt Count Neutrophils # 14.6 H Lymphocytes # Monocytes # Eosinophils # PT INR APTT ABG pH 7.22 L 7.29 L ABG pCO2 31 L 22 L ABG pO2 17 L* 65 L ABG HCO3 13 L 11 L ABG Total CO2 14 L 11 L ABG O2 Saturation 14.0 L 88.5 L ABG Hematocrit ABG Potassium ABG Ionized Calcium ABG Glucose ABG Lactic Acid Hemoglobin Sodium Potassium Chloride Carbon Dioxide BUN Creatinine Glucose POC Glucose (mg/dL) Hemoglobin A1c Plasma Lactic Acid Scott Calcium Phosphorus Magnesium Total Bilirubin AST ALT Alkaline Phosphatase Troponin I C-Reactive Protein Total Protein Albumin Procalcitonin Arterial Blood Potassium Arterial Blood Glucose Urine Protein Urine Glucose (UA) Urine Ketones Urine Blood Ur Leukocyte Esterase Urine RBC Urine WBC Amorphous Sediment Urine Bacteria Hyaline Casts Urine Mucus Crossmatch 11/12/19 11/12/19 11/12/19 14:40 14:40 15:34 WBC RBC Hgb Hct RDW Plt Count Neutrophils # Lymphocytes # Monocytes # Eosinophils # PT INR APTT ABG pH ABG pCO2 24 L ABG pO2 68 L ABG HCO3 13 L ABG Total CO2 14 L ABG O2 Saturation 90.6 L ABG Hematocrit ABG Potassium ABG Ionized Calcium ABG Glucose ABG Lactic Acid Hemoglobin Sodium Potassium 6.0 H Chloride Carbon Dioxide 19 L BUN 42 H Creatinine 1.80 H Glucose POC Glucose (mg/dL) Hemoglobin A1c Plasma Lactic Acid Scott 11.8 H* Calcium 7.8 L Phosphorus 6.7 H Magnesium Total Bilirubin 1.8 H AST 535 H ALT 408 H Alkaline Phosphatase Troponin I C-Reactive Protein 78.9 H Total Protein 4.8 L Albumin 3.1 L Procalcitonin Arterial Blood Potassium Arterial Blood Glucose Urine Protein Urine Glucose (UA) Urine Ketones Urine Blood Ur Leukocyte Esterase Urine RBC Urine WBC Amorphous Sediment Urine Bacteria Hyaline Casts Urine Mucus Crossmatch 11/12/19 11/12/19 11/12/19 16:55 17:56 18:20 WBC RBC Hgb Hct RDW Plt Count Neutrophils # Lymphocytes # Monocytes # Eosinophils # PT INR APTT ABG pH ABG pCO2 32 L ABG pO2 365 H ABG HCO3 17 L ABG Total CO2 18 L ABG O2 Saturation 99.5 H ABG Hematocrit ABG Potassium ABG Ionized Calcium ABG Glucose ABG Lactic Acid Hemoglobin Sodium Potassium Chloride Carbon Dioxide BUN 48 H Creatinine 1.60 H Glucose 186 H POC Glucose (mg/dL) 179 H Hemoglobin A1c Plasma Lactic Acid Scott Calcium 8.0 L Phosphorus Magnesium Total Bilirubin 2.0 H AST 1991 H ALT 1403 H Alkaline Phosphatase Troponin I C-Reactive Protein Total Protein 4.4 L Albumin 2.7 L Procalcitonin Arterial Blood Potassium Arterial Blood Glucose Urine Protein Urine Glucose (UA) Urine Ketones Urine Blood Ur Leukocyte Esterase Urine RBC Urine WBC Amorphous Sediment Urine Bacteria Hyaline Casts Urine Mucus Crossmatch 11/12/19 11/12/19 11/12/19 18:20 18:25 18:43 WBC RBC Hgb Hct RDW Plt Count Neutrophils # Lymphocytes # Monocytes # Eosinophils # PT INR APTT ABG pH 7.49 H ABG pCO2 27 L ABG pO2 117 H ABG HCO3 ABG Total CO2 ABG O2 Saturation 98.6 H ABG Hematocrit ABG Potassium ABG Ionized Calcium ABG Glucose ABG Lactic Acid Hemoglobin Sodium Potassium Chloride Carbon Dioxide BUN Creatinine Glucose POC Glucose (mg/dL) 213 H Hemoglobin A1c Plasma Lactic Acid Scott 5.0 H* Calcium Phosphorus Magnesium Total Bilirubin AST ALT Alkaline Phosphatase Troponin I C-Reactive Protein Total Protein Albumin Procalcitonin Arterial Blood Potassium Arterial Blood Glucose Urine Protein Urine Glucose (UA) Urine Ketones Urine Blood Ur Leukocyte Esterase Urine RBC Urine WBC Amorphous Sediment Urine Bacteria Hyaline Casts Urine Mucus Crossmatch 11/12/19 11/13/19 11/13/19 20:37 00:00 00:00 WBC RBC Hgb Hct RDW Plt Count Neutrophils # Lymphocytes # Monocytes # Eosinophils # PT INR APTT ABG pH ABG pCO2 ABG pO2 ABG HCO3 ABG Total CO2 ABG O2 Saturation ABG Hematocrit ABG Potassium ABG Ionized Calcium ABG Glucose ABG Lactic Acid 2.3 H* Hemoglobin Sodium Potassium Chloride Carbon Dioxide BUN Creatinine Glucose POC Glucose (mg/dL) 265 H 255 H Hemoglobin A1c Plasma Lactic Acid Scott Calcium Phosphorus Magnesium Total Bilirubin AST ALT Alkaline Phosphatase Troponin I C-Reactive Protein Total Protein Albumin Procalcitonin Arterial Blood Potassium Arterial Blood Glucose Urine Protein Urine Glucose (UA) Urine Ketones Urine Blood Ur Leukocyte Esterase Urine RBC Urine WBC Amorphous Sediment Urine Bacteria Hyaline Casts Urine Mucus Crossmatch 11/13/19 11/13/19 11/13/19 03:59 04:00 04:00 WBC 18.7 H RBC 2.46 L Hgb 7.5 L Hct 22.8 L RDW Plt Count Neutrophils # 15.2 H Lymphocytes # Monocytes # 1.1 H Eosinophils # PT INR APTT ABG pH ABG pCO2 ABG pO2 ABG HCO3 ABG Total CO2 ABG O2 Saturation ABG Hematocrit ABG Potassium ABG Ionized Calcium ABG Glucose ABG Lactic Acid Hemoglobin Sodium Potassium Chloride Carbon Dioxide BUN Creatinine Glucose POC Glucose (mg/dL) 194 H Hemoglobin A1c 7.2 H Plasma Lactic Acid Scott Calcium Phosphorus Magnesium Total Bilirubin AST ALT Alkaline Phosphatase Troponin I C-Reactive Protein Total Protein Albumin Procalcitonin Arterial Blood Potassium Arterial Blood Glucose Urine Protein Urine Glucose (UA) Urine Ketones Urine Blood Ur Leukocyte Esterase Urine RBC Urine WBC Amorphous Sediment Urine Bacteria Hyaline Casts Urine Mucus Crossmatch 11/13/19 11/13/19 11/13/19 04:00 04:38 06:56 WBC RBC Hgb Hct RDW Plt Count Neutrophils # Lymphocytes # Monocytes # Eosinophils # PT INR APTT ABG pH 7.53 H ABG pCO2 31 L ABG pO2 145 H ABG HCO3 26 H ABG Total CO2 27 H ABG O2 Saturation 99.1 H ABG Hematocrit ABG Potassium ABG Ionized Calcium ABG Glucose ABG Lactic Acid Hemoglobin Sodium Potassium 3.4 L Chloride Carbon Dioxide BUN 49 H Creatinine 1.44 H Glucose 164 H POC Glucose (mg/dL) Hemoglobin A1c Plasma Lactic Acid Scott Calcium 7.8 L Phosphorus Magnesium Total Bilirubin 1.6 H AST 3117 H ALT 1895 H Alkaline Phosphatase Troponin I C-Reactive Protein Total Protein 4.6 L Albumin 2.9 L Procalcitonin Arterial Blood Potassium Arterial Blood Glucose Urine Protein 1+ H Urine Glucose (UA) Urine Ketones Trace H Urine Blood Large H Ur Leukocyte Esterase Moderate H Urine RBC >182 H Urine WBC >182 H Amorphous Sediment Urine Bacteria Hyaline Casts Urine Mucus Rare H Crossmatch 11/13/19 11/13/19 11/13/19 08:08 10:11 12:18 WBC RBC Hgb Hct RDW Plt Count Neutrophils # Lymphocytes # Monocytes # Eosinophils # PT 14.4 H INR 1.5 H APTT 35.4 H ABG pH ABG pCO2 ABG pO2 ABG HCO3 ABG Total CO2 ABG O2 Saturation ABG Hematocrit ABG Potassium ABG Ionized Calcium ABG Glucose ABG Lactic Acid Hemoglobin Sodium Potassium Chloride Carbon Dioxide BUN Creatinine Glucose POC Glucose (mg/dL) 119 H 102 H Hemoglobin A1c Plasma Lactic Acid Scott Calcium Phosphorus Magnesium Total Bilirubin AST ALT Alkaline Phosphatase Troponin I C-Reactive Protein Total Protein Albumin Procalcitonin Arterial Blood Potassium Arterial Blood Glucose Urine Protein Urine Glucose (UA) Urine Ketones Urine Blood Ur Leukocyte Esterase Urine RBC Urine WBC Amorphous Sediment Urine Bacteria Hyaline Casts Urine Mucus Crossmatch 11/13/19 11/13/19 11/14/19 15:51 19:57 00:05 WBC RBC Hgb Hct RDW Plt Count Neutrophils # Lymphocytes # Monocytes # Eosinophils # PT INR APTT ABG pH ABG pCO2 ABG pO2 ABG HCO3 ABG Total CO2 ABG O2 Saturation ABG Hematocrit ABG Potassium ABG Ionized Calcium ABG Glucose ABG Lactic Acid Hemoglobin Sodium Potassium Chloride Carbon Dioxide BUN Creatinine Glucose POC Glucose (mg/dL) 134 H 139 H 167 H Hemoglobin A1c Plasma Lactic Acid Scott Calcium Phosphorus Magnesium Total Bilirubin AST ALT Alkaline Phosphatase Troponin I C-Reactive Protein Total Protein Albumin Procalcitonin Arterial Blood Potassium Arterial Blood Glucose Urine Protein Urine Glucose (UA) Urine Ketones Urine Blood Ur Leukocyte Esterase Urine RBC Urine WBC Amorphous Sediment Urine Bacteria Hyaline Casts Urine Mucus Crossmatch 11/14/19 11/14/19 11/14/19 04:20 04:20 04:20 WBC 19.2 H RBC 2.44 L Hgb 7.7 L Hct 23.3 L RDW Plt Count Neutrophils # 13.9 H Lymphocytes # Monocytes # 1.5 H Eosinophils # 1.4 H PT INR APTT ABG pH ABG pCO2 ABG pO2 ABG HCO3 ABG Total CO2 ABG O2 Saturation ABG Hematocrit ABG Potassium ABG Ionized Calcium ABG Glucose ABG Lactic Acid Hemoglobin Sodium Potassium Chloride 109 H Carbon Dioxide BUN 39 H Creatinine 1.46 H Glucose 166 H POC Glucose (mg/dL) Hemoglobin A1c Plasma Lactic Acid Scott Calcium 7.4 L Phosphorus Magnesium Total Bilirubin AST 1324 H ALT 1704 H Alkaline Phosphatase 133 H Troponin I C-Reactive Protein Total Protein 4.3 L Albumin 2.4 L Procalcitonin 0.99 H Arterial Blood Potassium Arterial Blood Glucose Urine Protein Urine Glucose (UA) Urine Ketones Urine Blood Ur Leukocyte Esterase Urine RBC Urine WBC Amorphous Sediment Urine Bacteria Hyaline Casts Urine Mucus Crossmatch 11/14/19 11/14/19 11/14/19 04:21 04:25 08:23 WBC RBC Hgb Hct RDW Plt Count Neutrophils # Lymphocytes # Monocytes # Eosinophils # PT INR APTT ABG pH 7.48 H ABG pCO2 32 L ABG pO2 114 H ABG HCO3 ABG Total CO2 25 H ABG O2 Saturation 98.4 H ABG Hematocrit ABG Potassium ABG Ionized Calcium ABG Glucose ABG Lactic Acid Hemoglobin Sodium Potassium Chloride Carbon Dioxide BUN Creatinine Glucose POC Glucose (mg/dL) 195 H 205 H Hemoglobin A1c Plasma Lactic Acid Scott Calcium Phosphorus Magnesium Total Bilirubin AST ALT Alkaline Phosphatase Troponin I C-Reactive Protein Total Protein Albumin Procalcitonin Arterial Blood Potassium Arterial Blood Glucose Urine Protein Urine Glucose (UA) Urine Ketones Urine Blood Ur Leukocyte Esterase Urine RBC Urine WBC Amorphous Sediment Urine Bacteria Hyaline Casts Urine Mucus Crossmatch 11/14/19 11/14/19 11/14/19 10:20 12:03 17:00 WBC RBC Hgb Hct RDW Plt Count Neutrophils # Lymphocytes # Monocytes # Eosinophils # PT INR APTT ABG pH ABG pCO2 ABG pO2 ABG HCO3 ABG Total CO2 ABG O2 Saturation ABG Hematocrit ABG Potassium ABG Ionized Calcium ABG Glucose ABG Lactic Acid Hemoglobin Sodium Potassium Chloride Carbon Dioxide BUN Creatinine Glucose POC Glucose (mg/dL) 214 H 196 H Hemoglobin A1c Plasma Lactic Acid Scott Calcium Phosphorus Magnesium Total Bilirubin AST ALT Alkaline Phosphatase Troponin I C-Reactive Protein Total Protein Albumin Procalcitonin Arterial Blood Potassium Arterial Blood Glucose Urine Protein Trace H Urine Glucose (UA) Urine Ketones Urine Blood Large H Ur Leukocyte Esterase Moderate H Urine RBC >182 H Urine WBC 9 H Amorphous Sediment Rare H Urine Bacteria Hyaline Casts Urine Mucus Rare H Crossmatch 11/14/19 11/14/19 11/15/19 20:29 23:52 04:05 WBC 15.3 H RBC 2.51 L Hgb 7.9 L Hct 24.4 L RDW 15.7 H Plt Count Neutrophils # 11.2 H Lymphocytes # Monocytes # 1.2 H Eosinophils # 1.2 H PT INR APTT ABG pH ABG pCO2 ABG pO2 ABG HCO3 ABG Total CO2 ABG O2 Saturation ABG Hematocrit ABG Potassium ABG Ionized Calcium ABG Glucose ABG Lactic Acid Hemoglobin Sodium Potassium Chloride Carbon Dioxide BUN Creatinine Glucose POC Glucose (mg/dL) 210 H 204 H Hemoglobin A1c Plasma Lactic Acid Scott Calcium Phosphorus Magnesium Total Bilirubin AST ALT Alkaline Phosphatase Troponin I C-Reactive Protein Total Protein Albumin Procalcitonin Arterial Blood Potassium Arterial Blood Glucose Urine Protein Urine Glucose (UA) Urine Ketones Urine Blood Ur Leukocyte Esterase Urine RBC Urine WBC Amorphous Sediment Urine Bacteria Hyaline Casts Urine Mucus Crossmatch 11/15/19 11/15/19 11/15/19 04:05 04:08 05:27 WBC RBC Hgb Hct RDW Plt Count Neutrophils # Lymphocytes # Monocytes # Eosinophils # PT INR APTT ABG pH 7.47 H ABG pCO2 32 L ABG pO2 80 L ABG HCO3 ABG Total CO2 ABG O2 Saturation ABG Hematocrit ABG Potassium ABG Ionized Calcium ABG Glucose ABG Lactic Acid Hemoglobin Sodium Potassium Chloride 108 H Carbon Dioxide BUN 35 H Creatinine 1.27 H Glucose 181 H POC Glucose (mg/dL) 213 H Hemoglobin A1c Plasma Lactic Acid Scott Calcium 7.7 L Phosphorus Magnesium Total Bilirubin 1.4 H AST 478 H ALT 1301 H Alkaline Phosphatase 167 H Troponin I C-Reactive Protein Total Protein 4.5 L Albumin 2.5 L Procalcitonin Arterial Blood Potassium Arterial Blood Glucose Urine Protein Urine Glucose (UA) Urine Ketones Urine Blood Ur Leukocyte Esterase Urine RBC Urine WBC Amorphous Sediment Urine Bacteria Hyaline Casts Urine Mucus Crossmatch 11/15/19 11/15/19 11/15/19 07:53 11:20 16:56 WBC RBC Hgb Hct RDW Plt Count Neutrophils # Lymphocytes # Monocytes # Eosinophils # PT INR APTT ABG pH ABG pCO2 ABG pO2 ABG HCO3 ABG Total CO2 ABG O2 Saturation ABG Hematocrit ABG Potassium ABG Ionized Calcium ABG Glucose ABG Lactic Acid Hemoglobin Sodium Potassium Chloride Carbon Dioxide BUN Creatinine Glucose POC Glucose (mg/dL) 193 H 160 H 171 H Hemoglobin A1c Plasma Lactic Acid Scott Calcium Phosphorus Magnesium Total Bilirubin AST ALT Alkaline Phosphatase Troponin I C-Reactive Protein Total Protein Albumin Procalcitonin Arterial Blood Potassium Arterial Blood Glucose Urine Protein Urine Glucose (UA) Urine Ketones Urine Blood Ur Leukocyte Esterase Urine RBC Urine WBC Amorphous Sediment Urine Bacteria Hyaline Casts Urine Mucus Crossmatch 11/15/19 11/16/19 11/16/19 19:55 00:02 04:16 WBC 15.2 H RBC 2.47 L Hgb 7.9 L Hct 24.3 L RDW 15.8 H Plt Count Neutrophils # 11.7 H Lymphocytes # Monocytes # Eosinophils # 0.9 H PT INR APTT ABG pH ABG pCO2 ABG pO2 ABG HCO3 ABG Total CO2 ABG O2 Saturation ABG Hematocrit ABG Potassium ABG Ionized Calcium ABG Glucose ABG Lactic Acid Hemoglobin Sodium Potassium Chloride Carbon Dioxide BUN Creatinine Glucose POC Glucose (mg/dL) 205 H 204 H Hemoglobin A1c Plasma Lactic Acid Scott Calcium Phosphorus Magnesium Total Bilirubin AST ALT Alkaline Phosphatase Troponin I C-Reactive Protein Total Protein Albumin Procalcitonin Arterial Blood Potassium Arterial Blood Glucose Urine Protein Urine Glucose (UA) Urine Ketones Urine Blood Ur Leukocyte Esterase Urine RBC Urine WBC Amorphous Sediment Urine Bacteria Hyaline Casts Urine Mucus Crossmatch 11/16/19 11/16/19 11/16/19 04:16 04:16 07:57 WBC RBC Hgb Hct RDW Plt Count Neutrophils # Lymphocytes # Monocytes # Eosinophils # PT INR APTT ABG pH ABG pCO2 ABG pO2 ABG HCO3 ABG Total CO2 ABG O2 Saturation ABG Hematocrit ABG Potassium ABG Ionized Calcium ABG Glucose ABG Lactic Acid Hemoglobin Sodium Potassium Chloride 108 H Carbon Dioxide BUN 33 H Creatinine Glucose 165 H POC Glucose (mg/dL) 193 H 191 H Hemoglobin A1c Plasma Lactic Acid Scott Calcium 7.7 L Phosphorus Magnesium Total Bilirubin AST 225 H ALT 935 H Alkaline Phosphatase 188 H Troponin I C-Reactive Protein Total Protein 4.7 L Albumin 2.5 L Procalcitonin Arterial Blood Potassium Arterial Blood Glucose Urine Protein Urine Glucose (UA) Urine Ketones Urine Blood Ur Leukocyte Esterase Urine RBC Urine WBC Amorphous Sediment Urine Bacteria Hyaline Casts Urine Mucus Crossmatch 11/16/19 11/16/19 11/16/19 08:05 12:10 14:54 WBC RBC Hgb Hct RDW Plt Count Neutrophils # Lymphocytes # Monocytes # Eosinophils # PT INR APTT ABG pH 7.48 H ABG pCO2 34 L ABG pO2 ABG HCO3 ABG Total CO2 26 H ABG O2 Saturation 97.7 H ABG Hematocrit ABG Potassium ABG Ionized Calcium ABG Glucose ABG Lactic Acid Hemoglobin Sodium Potassium Chloride Carbon Dioxide BUN Creatinine Glucose POC Glucose (mg/dL) 197 H 163 H Hemoglobin A1c Plasma Lactic Acid Scott Calcium Phosphorus Magnesium Total Bilirubin AST ALT Alkaline Phosphatase Troponin I C-Reactive Protein Total Protein Albumin Procalcitonin Arterial Blood Potassium Arterial Blood Glucose Urine Protein Urine Glucose (UA) Urine Ketones Urine Blood Ur Leukocyte Esterase Urine RBC Urine WBC Amorphous Sediment Urine Bacteria Hyaline Casts Urine Mucus Crossmatch 11/16/19 11/16/19 11/17/19 19:55 23:54 03:48 WBC RBC Hgb Hct RDW Plt Count Neutrophils # Lymphocytes # Monocytes # Eosinophils # PT INR APTT ABG pH ABG pCO2 ABG pO2 ABG HCO3 ABG Total CO2 ABG O2 Saturation ABG Hematocrit ABG Potassium ABG Ionized Calcium ABG Glucose ABG Lactic Acid Hemoglobin Sodium Potassium Chloride Carbon Dioxide BUN Creatinine Glucose POC Glucose (mg/dL) 179 H 148 H 173 H Hemoglobin A1c Plasma Lactic Acid Scott Calcium Phosphorus Magnesium Total Bilirubin AST ALT Alkaline Phosphatase Troponin I C-Reactive Protein Total Protein Albumin Procalcitonin Arterial Blood Potassium Arterial Blood Glucose Urine Protein Urine Glucose (UA) Urine Ketones Urine Blood Ur Leukocyte Esterase Urine RBC Urine WBC Amorphous Sediment Urine Bacteria Hyaline Casts Urine Mucus Crossmatch 11/17/19 11/17/19 11/17/19 03:50 03:50 07:51 WBC 15.0 H RBC 2.37 L Hgb 7.7 L Hct 23.7 L RDW 15.8 H Plt Count Neutrophils # 11.1 H Lymphocytes # Monocytes # Eosinophils # 0.8 H PT INR APTT ABG pH ABG pCO2 ABG pO2 ABG HCO3 ABG Total CO2 ABG O2 Saturation ABG Hematocrit ABG Potassium ABG Ionized Calcium ABG Glucose ABG Lactic Acid Hemoglobin Sodium 136 L Potassium Chloride Carbon Dioxide BUN 33 H Creatinine Glucose 153 H POC Glucose (mg/dL) 147 H Hemoglobin A1c Plasma Lactic Acid Scott Calcium 7.7 L Phosphorus Magnesium Total Bilirubin AST 130 H ALT 692 H Alkaline Phosphatase 195 H Troponin I C-Reactive Protein Total Protein 4.9 L Albumin 2.6 L Procalcitonin Arterial Blood Potassium Arterial Blood Glucose Urine Protein Urine Glucose (UA) Urine Ketones Urine Blood Ur Leukocyte Esterase Urine RBC Urine WBC Amorphous Sediment Urine Bacteria Hyaline Casts Urine Mucus Crossmatch 07/22/20 07/22/20 08:22 11:58 WBC RBC Hgb Hct RDW Plt Count Neutrophils # Lymphocytes # Monocytes # Eosinophils # PT INR APTT ABG pH 7.47 H ABG pCO2 ABG pO2 ABG HCO3 26 H ABG Total CO2 27 H ABG O2 Saturation 97.7 H ABG Hematocrit ABG Potassium ABG Ionized Calcium ABG Glucose ABG Lactic Acid Hemoglobin Sodium Potassium Chloride Carbon Dioxide BUN Creatinine Glucose POC Glucose (mg/dL) 184 H Hemoglobin A1c Plasma Lactic Acid Scott Calcium Phosphorus Magnesium Total Bilirubin AST ALT Alkaline Phosphatase Troponin I C-Reactive Protein Total Protein Albumin Procalcitonin Arterial Blood Potassium Arterial Blood Glucose Urine Protein Urine Glucose (UA) Urine Ketones Urine Blood Ur Leukocyte Esterase Urine RBC Urine WBC Amorphous Sediment Urine Bacteria Hyaline Casts Urine Mucus Crossmatch Assessment and Plan Assessment: * Probable subacute stroke involving multiple patchy areas in the left MCA vascular territory. Rule out cardioembolic source. Patient had transient atrial fibrillation, therefore cardioembolic stroke is definitely a possibility. * Status post coronary artery bypass grafting. * Right ICA stenosis 50-69% per carotid ultrasound. * Hypertension * Diabetes * Medical noncompliance in the past. * Tobacco use. Plan: * Suggest MRI of the brain without contrast, and MRA of the brain without contrast, when possible. * Patient's 2-D echo showed no obvious embolic source at this time. * Carotid Doppler showed 50-69% stenosis proximal right ICA. * Patient currently on aspirin 325 mg and Plavix 75 mg. Also on Lipitor 40 mg. * Neurology will follow.
[2019-11-17 20:02] LABS: Glucose,Whole Blood 176 mg/dL (75-99)
[2019-11-17] MEDS: INSULIN DETEMIR (LEVEMIR) 100 UNIT/ML SYR SQ SCH (20:33)
[2019-11-17] MEDS: SENNOSIDES-DOCUSATE SODIUM 1 EACH TAB PO SCH (20:44)
[2019-11-17 23:54] LABS: Glucose,Whole Blood 141 mg/dL (75-99)
[2019-11-17] MEDS: PIPERACILLIN-TAZOBACTAM 3.375 GM in SODIUM CHLORIDE 0.9% 100 ML IVPB SCH (23:57)
--- NOTE | 2019-11-18 00:27 | PN ---
PROGRESS NOTE DATE OF SERVICE: 11/17/2019 REASON FOR FOLLOWUP: Leukocytosis. INTERVAL HISTORY: The patient is currently afebrile. The patient is hemodynamically stable, not on any pressor support. The patient's FiO2 is currently stable. No significant purulent secretion through the ET or any diarrhea reported by nursing staff. PHYSICAL EXAMINATION: Blood pressure 128/49 with a pulse of 81, temperature 99.3. He is 99% on 40% FiO2. General description is an elderly male intubated on the vent. RESPIRATORY SYSTEM: Unlabored breathing, decreased breath sounds at the bases. No wheeze. HEART: S1, S2. Regular rate and rhythm. ABDOMEN: Soft, no tenderness. LABS: Hemoglobin 7.7, white count 15,000. BUN of 33, creatinine 1.04. has been normal. Liver enzymes have shown a downward trend. DIAGNOSTIC IMPRESSION AND PLAN: Patient with leukocytosis which is likely multifactorial possible reactive in this patient overall white count stuck at 15,000. All his cultures have been negative especially for MRSA. To decrease the risk of nephrotoxicity with vancomycin, vancomycin will be discontinued. Antibiotic will be adjusted to Zosyn. Will see clinical response and his monitor clinical course closely. MMODL / IJN: [id number] /
[2019-11-18] MEDS: INSULIN ASPART (NovoLOG) 100 UNIT/ML VIAL SQ SCH ×10 (04:03→20:15)
[2019-11-18 04:04] LABS: Glucose,Whole Blood 89 mg/dL (75-99)
[2019-11-18 04:42] LABS: Albumin 2.7 g/dL (3.5-5.0); C Reactive Protein 61.3 mg/L (<10.0); Calcium 7.9 mg/dL (8.4-10.2); Potassium 3.7 mmol/L (3.5-5.1); Total Bilirubin 0.9 mg/dL (0.2-1.3); Total Protein 5.3 g/dL (6.3-8.2)
[2019-11-18 04:54] LABS: Anisocytosis Slight; Basophils % (A) 0 %; Eosinophils # (A) 0.8 k/uL (0-0.7); Eosinophils % (A) 5 %; HCT 22.9 % (39.0-53.0); HGB 7.3 gm/dL (13.0-17.5); Hypochromasia Moderate; Lymphocytes # (A) 1.3 k/uL (1.0-4.8); Lymphocytes % (A) 9 %; MCH 31.9 pg (25.0-35.0); MCHC 32.1 g/dL (31.0-37.0); MCV 99.4 fL (80.0-100.0); Macrocytosis Slight; Mean Platelet Volume 9.3; Monocytes % (A) 7 %; Neutrophils % (A) 74 %; Platelet Count 225 k/uL (150-450); RDW 16.2 % (11.5-15.5); WBC 14.7 k/uL (3.8-10.6)
[2019-11-18] MEDS ORDERED: POTASSIUM BICARBONATE/CIT AC 20 MEQ TABLET.EFF NG-TUBE SCH (06:00)
[2019-11-18] MEDS: ASCORBIC ACID 500 MG TAB PO SCH ×2 (06:33→16:19)
[2019-11-18] MEDS: FERROUS SULFATE ORAL ELIXIR 300 MG/5 ML CUP PO SCH ×2 (06:33→16:19)
[2019-11-18] MEDS: PANTOPRAZOLE 40 MG TABLET PO SCH (06:33)
[2019-11-18] MEDS: IPRATROPIUM-ALBUTEROL 3 ML NEB INHALATION SCH ×4 (07:58→18:44)
[2019-11-18 08:03] LABS: ABG Base Excess 3.2 mmol/L; ABG HCO3 27 mmol/L (21-25); ABG Oxygen Saturation 98.7 % (94-97); ABG PCO2 35 mmHg (35-45); ABG PH 7.49 (7.35-7.45); ABG PO2 106 mmHg (83-108); ABG TCO2 28 mmol/L (19-24)
[2019-11-18 08:19] LABS: Glucose,Whole Blood 117 mg/dL (75-99)
[2019-11-18] MEDS: PIPERACILLIN-TAZOBACTAM 3.375 GM in SODIUM CHLORIDE 0.9% 100 ML IVPB SCH ×3 (08:23→23:10)
[2019-11-18] MEDS: AMIODARONE 200 MG TAB PO SCH ×2 (08:24→21:31)
[2019-11-18] MEDS: CHLORHEXIDINE GLUCONATE 15 ML CUP MUCOUS MEM SCH ×2 (08:24→21:30)
[2019-11-18] MEDS: ATORVASTATIN 40 MG TAB PO SCH (08:24)
[2019-11-18] MEDS: CLOPIDOGREL 75 MG TAB PO SCH (08:24)
[2019-11-18] MEDS: ASPIRIN 325 MG TAB PO SCH (08:24)
[2019-11-18] MEDS: HEPARIN SODIUM,PORCINE 5,000 UNIT/ML 1 ML VIAL SQ SCH ×3 (08:24→23:57)
[2019-11-18] MEDS: NYSTATIN 100,000 UNIT/ML SUSP 500,000 UNIT/5 ML CUP PO SCH ×4 (08:24→21:31)
[2019-11-18] MEDS: FUROSEMIDE 10 MG/ML 4 ML VIAL IV SCH ×2 (08:24→21:30)
[2019-11-18] MEDS: METOPROLOL TARTRATE 12.5 MG TAB PO SCH ×3 (08:25→21:30)
--- NOTE | 2019-11-18 08:25 | XR ---
EXAMINATION TYPE: XR chest 1V portable DATE OF EXAM: 11/18/2019 COMPARISON: 11/17/2019 HISTORY: Tube placement TECHNIQUE: Single frontal view of the chest is obtained. FINDINGS: ET tube and Dobbhoff tube stable. Central line noted stable. Diffuse bilateral pleural-par enchymal changes with cardiomegaly stable. Postoperative change. No pneumothorax. IMPRESSION: 1. Diffuse bilateral pleural-parenchymal changes correlate for ARDS, pulmonary edema or diffuse pneum onia.
--- NOTE | 2019-11-18 08:37 | P.PN ---
Subjective Progress Note Date: 11/18/19 Principal diagnosis: Symptomatic multivessel coronary artery disease, unstable angina, status post subendocardial myocardial infarction. 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 POD #10 coronary artery bypass grafting 5 with GR to the LAD, left radial artery to the obtuse marginal coronary artery, a reverse greater saphenous vein to the posterior lateral coronary artery, sequential saphenous vein to the first and second diagonal coronary artery performed on cardiopulmonary bypass with beating heart. Endoscopic vein harvest of the left greater saphenous vein from the ankle to the groin. Endoscopic harvest of the left radial artery. Epi- aortic ultrasound and ligation of left atrial appendage with 40 mm AtriCure clip. Postoperative acute blood loss anemia, expected outcome given cardiopulmonary bypass and hemodilution. Postoperative encephalopathy, unexpected but potential outcome given cardiopulmonary bypass and intraoperative cardiac arrest. Postoperative new onset paroxysmal Afib with RVR, unexpected. Postoperative acute hypoxemic respiratory failure requiring reintubation, secondary to metabolic acidosis and hypotension. Postoperative stage II pressure ulcer on coccyx, unexpected. The patient was seen in follow-up today 11/18/2019 at his bedside in the intensive care unit. Currently, his propofol drip is on hold and the patient opens up his eyes easily with verbal stimuli. He is not following any simple commands and is not tracking with verbal stimuli. He remains intubated with mechanical ventilator support, current mechanical ventilator settings are assist control 16, TV 450, FiO2 40% PEEP of 5. Oxygen saturations on current mechanical ventilator settings are 96%. Norepinephrine drip remains on hold and he is hemodynamically stable. Right IJ triple-lumen catheter remains in place with continuous CVP monitoring, current CVP pressure is a millimeters of mercury. Dobbhoff tube remains in place with vital high-protein tube feeding infusing at goal rate of 54 mL per hour with automatic water flushes 30 mL every 4 hours. ABG results this morning show a pH of 7.49, pCO2 35, pO2 of 106, HCO3 27, oxygen saturation 98.7 and a base excess of 3.2. Lab results show a WBC count of 14.7, hemoglobin 7.3, BUN 33, creatinine 1.05, AST 508 ALT 191 and a C reactive protein of 61.3. Dressing remains clean, dry and in place to his coccyx. Newman catheter remains in place for accurate I's and O's. Epicardial pacemaker wires remain in place connected to back up to bedside pacemaker generator with an AAI 50. Objective - Vital Signs Vital signs: Vital Signs Temp 99.5 F 11/18/19 04:00 Pulse 86 11/18/19 07:58 Resp 20 11/18/19 07:00 BP 106/61 11/16/19 08:00 Pulse Ox 96 11/18/19 07:00 Intake & Output 11/17/19 11/18/19 11/18/19 18:59 06:59 18:59 Intake Total 6292.763 3938.931 65 Output Total 1450 1245 65 Balance -65.000 -215.069 0 Weight 94.1 kg 93.2 kg Intake: IV 493 221 11 .9NS @ 5ml/hr 65 55 5 Cefepime 2 gm In Sodium 100 100 Chloride 0.9% 100 ml @ 200 mls/hr IVPB Q12HR [facility] Rx#:[id number] Normal Saline Pressure 78 66 6 Bag Vancomycin 1,500 mg In 250 Sodium Chloride 0.9% 250 ml @ 125 mls/hr IVPB Q16H [facility]AN Rx#:[id number] Intake, IV Titration 100.000 124.931 Amount propofoL 1,000 mg In 100.000 124.931 Empty Bag 1 bag @ Titrate IV .Q0M Y[facility]AN Rx#: [id number] Tube Feeding 702 594 54 Other 90 90 Output: Urine 1450 1245 65 Other: Voiding Method Indwelling Catheter Indwelling Catheter ABP, PAP, CO, CI - Last Documented Arterial Blood Pressure 150/62 Pulmonary Artery Pressure 30/17 Cardiac Output 4.5 Cardiac Index 2.3 - Constitutional Constitutional Comment(s): Currently off propofol drip. Not following any simple verbal commands. Opens eyes with verbal stimuli, no purposeful tracking noted. General appearance: Present: no acute distress - EENT Eyes: Present: PERRLA, poor dentition, normal appearance. Absent: scleral icterus - Neck Details: Neck is supple, no JVD, no lymphadenopathy. Right IJ cordis remains in place to continue CVP monitoring, current CVP pressure 8 mmHg. - Respiratory Details: Lung sounds are essentially clear throughout, diminished to his bilateral bases. Respirations are symmetrical and nonlabored with mechanical ventilator support. Current ventilator settings are as follows: Assist control 16, TV 450, FiO2 40% and PEEP of 5. Oxygen saturation is 96% on current mechanical ventilator se ttings. - Cardiovascular Details: Regular rhythm and rate. S1 and S2 present, negative for S3, gallop or murmur. Sternum is stable. Atrial and ventricular epicardial pacemaker wires remain in place and connected to back up to bedside pacemaker generator on an AAI 50. Heart hugger is in place. Knee-high ELSIE hose and sequential compression devices in place to his bilateral lower extremities. Generalized +1 edema. - Gastrointestinal Gastrointestinal Comment(s): Abdomen is soft, and nondistended. Active bowel sounds present in all 4 abdominal quadrants. Dobbhoff tube remains in place with continuous tube fe eding vital high-protein at rate of 54 mL per hour with 30 mL every 4 hours of water flushes. Bowel movement on 11/15/2019. - Genitourinary Genitourinary Comment(s): Newman catheter for accurate I&O. Draining clear rachana urine. 695 mL output in the last 8 hours. - Integumentary Integumentary Comment(s): Skin is warm and dry. No clubbing or cyanosis is present. Midline sternal incision is clean, dry and approximated. No drainage or redness is present. Gauze dressing is clean, dry and intact. Left arm radial artery harvest sites are clean, dry and approximated. No drainage or redness is present. Left lower extremity EVH sites are clean, dry and approximated. No drainage or redness is present. Small scattered ecchymotic areas to his left forearm and left thigh area. Soft to touch. Palpable ulnar pulse to his left arm. Dressing is clean, dry and in place to his coccyx. Generalized +1 edema. - Neurologic Neurologic Comment(s): Unable to fully assess. Patient opens up his eyes with verbal stimuli with no purposeful tracking. Not following any verbal commands at this time. - Psychiatric Psychiatric Comment(s): Unable to fully assess. Patient remains intubated with mechanical ventilator support. Opens eyes with verbal stimuli, no purposeful tracking. - Allied health notes Allied health notes reviewed: nursing - Labs CBC & Chem 7: 11/18/19 04:00 11/18/19 04:00 Labs: Abnormal Lab Results - Last 24 Hours (Table) 11/17/19 11/17/19 11/17/19 Range/Units 08:22 11:58 16:55 WBC (3.8-10.6) k/uL RBC (4.30-5.90) m/uL Hgb (13.0-17.5) gm/dL Hct (39.0-53.0) % RDW (11.5-15.5) % Neutrophils # (1.3-7.7) k/uL Eosinophils # (0-0.7) k/uL ABG pH 7.47 H (7.35-7.45) ABG HCO3 26 H (21-25) mmol/L ABG Total CO2 27 H (19-24) mmol/L ABG O2 Saturation 97.7 H (94-97) % BUN (9-20) mg/dL POC Glucose (mg/dL) 184 H 184 H (75-99) mg/dL Calcium (8.4-10.2) mg/dL AST (17-59) U/L ALT (4-49) U/L Alkaline Phosphatase (38-126) U/L C-Reactive Protein (<10.0) mg/L Total Protein (6.3-8.2) g/dL Albumin (3.5-5.0) g/dL 11/17/19 11/17/19 11/18/19 Range/Units 20:00 23:53 04:00 WBC (3.8-10.6) k/uL RBC (4.30-5.90) m/uL Hgb (13.0-17.5) gm/dL Hct (39.0-53.0) % RDW (11.5-15.5) % Neutrophils # (1.3-7.7) k/uL Eosinophils # (0-0.7) k/uL ABG pH (7.35-7.45) ABG HCO3 (21-25) mmol/L ABG Total CO2 (19-24) mmol/L ABG O2 Saturation (94-97) % BUN 33 H (9-20) mg/dL POC Glucose (mg/dL) 176 H 141 H (75-99) mg/dL Calcium 7.9 L (8.4-10.2) mg/dL AST 88 H (17-59) U/L ALT 508 H (4-49) U/L Alkaline Phosphatase 191 H (38-126) U/L C-Reactive Protein 61.3 H (<10.0) mg/L Total Protein 5.3 L (6.3-8.2) g/dL Albumin 2.7 L (3.5-5.0) g/dL 11/18/19 11/18/19 Range/Units 04:00 07:56 WBC 14.7 H (3.8-10.6) k/uL RBC 2.30 L (4.30-5.90) m/uL Hgb 7.3 L (13.0-17.5) gm/dL Hct 22.9 L (39.0-53.0) % RDW 16.2 H (11.5-15.5) % Neutrophils # 11.0 H (1.3-7.7) k/uL Eosinophils # 0.8 H (0-0.7) k/uL ABG pH 7.49 H (7.35-7.45) ABG HCO3 27 H (21-25) mmol/L ABG Total CO2 28 H (19-24) mmol/L ABG O2 Saturation 98.7 H (94-97) % BUN (9-20) mg/dL POC Glucose (mg/dL) (75-99) mg/dL Calcium (8.4-10.2) mg/dL AST (17-59) U/L ALT (4-49) U/L Alkaline Phosphatase (38-126) U/L C-Reactive Protein (<10.0) mg/L Total Protein (6.3-8.2) g/dL Albumin (3.5-5.0) g/dL Microbiology - Last 24 Hours (Table) 11/12/19 14:40 Blood Culture - Preliminary Blood No Growth after 120 hours 11/12/19 14:40 Blood Culture - Preliminary Blood No Growth after 120 hours - Imaging and Cardiology Chest x-ray: report reviewed, image reviewed Assessment and Plan Assessment: 1. Symptomatic multivessel coronary artery disease, recent non-STEMI, status post 5 vessel CABG 2. Leukocytosis, unknown origin, may be reactive 3. Previous stent placement to the proximal circumflex and ostial OM1 4. History of hypertension 5. History of hyperlipidemia 6. Chronic ongoing tobacco dependence 7. Mild COPD, preoperative FEV1 60% of predicted value 8. Right internal carotid artery stenosis 50-69% 9. 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 Poorly controlled diabetes mellitus type 2, admission hemoglobin A1c 9.1% 11. History of bladder cancer status post radiation, chemotherapy treatment and bladder surgery 12. Occasional marijuana use 13. Medication noncompliance 14. Family history of early onset coronary artery disease 15. Postoperative acute blood loss anemia, expected 16. Postoperative confusion, unexpected 17. Mild ISAAC, creatinine today 1.46 yesterday 1.44 18. New onset Afib with RVR, status post left atrial appendage ligation 19. New onset hematuria from patient pulling at newman catheter 20. Postoperative acute hypoxic respiratory failure requiring reintubation, secondary to metabolic acidosis and hypotension 21. Elevated transaminase levels, secondary to hypotension, trending down 22. Postoperative stage II pressure ulcer, coccyx Plan: 1. Continue aspirin, Plavix and statin. 2. Continue amiodorone for atrial fibrillation prophylaxis. Parameters placed on the amiodarone per cardiology recommendations to hold for heart rate less than 70. 3. Continue to hold Cardizem and Cozaar due to his bradycardia and hypotension. Continue to reassess daily and add as tolerated. 4. Keep Newman catheter in place for accurate I&O. Newman catheter was changed on 11/14/2019. 5. Increase metoprolol tartrate to 12.5 mg per Dobbhoff tube 3 times a day. 6. Mechanical ventilator management per pulmonary critical care medicine. 7. Wean Diprivan as tolerated. Currently off. 8. Will monitor daily labs and chest x-rays. Electrolyte replacement per protocol. 9. Continue Tylenol for pain management, hold narcotics and toradol. 10. GI/DVT prophylaxis. 11. Insulin management per primary care service. 12. Continue Lasix 40 mg IV twice a day. 13. Keep Dobbhoff tube in place for tube feeding. Currently infusing at goal rate of 54 mL per hour with automatic water flushes. 14. Continue to avoid nephrotoxic agents. BUN and creatinine trending down. 15. Keep atrial and ventricular epicardial pacemaker wires in place and connected to a backup pacemaker generator with a AAI of 50. 16. Continue to turn patient every 2 hours and when necessary. 17. Infectious disease is following for antibiotic management. 18. Consult physical and occupational therapy for range of motion. 19. More recommendations to follow based on patient's clinical course. Time with Patient: Greater than 30
[2019-11-18] MEDS: DEXMEDETOMIDINE/0.9% NACL(PMX) 400 MCG in EMPTY BAG 1 BAG IV SCH ×2 (10:15→23:58)
--- NOTE | 2019-11-18 11:05 | P.ARTDOP ---
Arterial Doppler Bilateral radial artery study: Date of study: 11/07/2019 Reason for study: Preop CABG. Findings: Doppler assessment shows no significant right to left or segmental pressure gradient. Digital plethysmography with radial artery compression shows no significant pressure change. On imaging both radial arteries are well above 3 mm throughout. Largest dimension is 4.8 mm Impression: Both radial arteries appear to be usable as conduit.
[2019-11-18] MEDS: DEXTROSE 5% IN WATER 100 ML with AMIODARONE 150 MG IV PRN (11:15)
[2019-11-18 11:49] LABS: Glucose,Whole Blood 119 mg/dL (75-99)
--- NOTE | 2019-11-18 12:49 | P.PN ---
Subjective Progress Note Date: 11/18/19 Principal diagnosis: Coronary artery disease with unstable angina, and non-ST elevated UT, status post 5 vessel bypass grafting This is a 64-year-old male patient with coronary artery disease, noncompliant to medication. The patient came in with subendocardial infarction and cardiac catheterization showed diffuse coronary artery disease with critical stenosis. The patient underwent coronary artery bypass today. The patient underwent bypass 5 with GR to LAD, radial artery graft to acute marginal, saphenous finger after 2 posterior lateral and sick ration saphenous vein to first and second diagonal performed on cardiac pulmonary bypass with beating heart. Left atrial appendage was also added. The patient currently is in the intensive care unit. I centimeters in regards to the ICU. He was initially on a SIMV mode of ventilation at the rate of 12 with a tidal volume of 500 and FiO2 of 100% with a PEEP of 5 and a pressure support of 5. The blood gas showed a pH of 7.318 with a pCO2 of 49 and pO2 of 226. The chest x-ray postop showed volume overload with pulmonary vascular congestion and interstitial edema. The lines and tubes are all in good location. Based on all this, I increased the respiratory rate of 24. I do not FiO2 down to 60%. Current cardiac output is at 2.6 with an index of 5. The patient has 2 mediastinal 1 right pleural and 1 left pleural chest tube. Ultrasound of the sternal chest tubes has been around 150 mL since he arrived from the operating room. No evidence of any air leak. The patient is currently on a Cardizem drip and milrinone drip and the patient is on insulin drip for blood sugar control.he is well sedated. Is quite symptoms with the mechanical ventilator. Postoperative hemoglobin is at 8.2. Platelet count is down to 78. On today's evaluation of 11/09/2019, I'm seeing the patient for a follow-up. The patient was operated on yesterday and the patient underwent a five-vessel bypass surgery including a GR and the radial artery harvest. The patient was extubated within 6 hours and currently the patient is on oxygen by nasal cannula at 5 L. He is pleasantly confused this morning. He is able to sit up on a recliner. Hemodynamically, he did have some early of hypotension earlier this morning and for that reason the patient was given 750 mL of colloids and following that he was started on low-dose levo fed at 0.03 g per KG per minute. The patient remains on Primacor running at 0.125 g and the patient is also on Cardizem at 5 mg an hour. Insulin drip is running at 2.5 units an hour. Hemod ynamically, the patient's cardiac output is at 4.2 with an index of 2.2. The pulmonary artery pressure 28/12. CVP is at 11. Cardiac output is at 4.2. He is in his normal sinus rhythm. He has a backup VVI at the rate of 50. His chest x-rays showing small bilateral apical pneumothoraces. All of the chest tubes are in good location. The right and left pleural chest tube connected and they have drained approximately 130 mL over the past 8 hours. He is tender tubes are also connected and it has drained approximately 140 mL over the past 8 hours. The patient otherwise has no specific complaints. Sternum stable clean and intact. He is producing urine output in the order of 20-30 mL an hour. No other significant events overnight. Hemoglobin stable at 7.9. The platelet count improved to 102. On 11/10/2019, the patient is postop day #2. The patient is confused. He is nonverbal. He is not answering questions and is not following any commands. Upon watching him, I felt that the left side of the body slightly cachectic compared to the right. Nevertheless, the same as the patient was not cheered by the nursing staff been observing this patient longer to me. He has no prefer ential gaze toseizure activity. No reported shortness of breath or respiratory distress at this point in time. Mediastinal chest tubes and the pleural chest tubes are all in place. The patient has an AV epicardial pacer wire grounded to generator. As of yesterday, the patient was taken off the pressors. The patient is currently off the levo fed and he is off the Primacor. The patient also had the ALYX drains removed from the left lower extremity and arm. No other significant issues for now. No cardiac arrhythmias. No nausea. No vomiting. No emesis. He is resting comfortably in bed. The patient's hemoglobin is at 7.0. Was a causative 4.7. Diminished pulmonary vascular congestion and infiltration of the right lung base. There is resolution of the previously described bilateral pneumothoraces. On today's evaluation of 11/11/2019, the patient remains confused. I was told that he was able to say some few words. I was also told by the nursing staff that the patient was witnessed EXTREMITIES WITHOUT ANY LIMITATION IN PATIENT HAVING ANY FOCAL NEUROLOGICAL DEFICIT. NOTE THAT THE PATIENT EARLIER THIS MORNING WITH ATRIAL FIBRILLATION WITH RAPID VENTRICULAR RESPONSE. HIS HEART RATE WENT UP TO 180 beats per minute without any significant hypotension. That point, the patient was given amiodarone boluses and the patient received a total of 3 boluses prior to my arrival. He was also given 5 mg of IV Lopressor. Her, bilateral, the patient was still in atrial fibrillation. He was trying to hurt at times he thought it was going down. His baseline rhythm was atrial fibr illation and heart rate was in the range of 100-120. The patient denied having any chest pain. Sternum was stable treatment intact. No reported fever or chills. The mediastinal chest 11 already been removed yesterday. The right and the left pleural chest tubes are still in place and output is being noted. Chest x-ray from this morning showed adequate expansion of both lungs without evidence of any pneumothorax. No evidence of any pulmonary edema. The patient was being given Lasix 20 mg IV push every 12 hours. Hemoglobin from this morning was down to 6.7 and the patient was ordered to get a unit of packed RBC. Currently is postoperative #3 post 5 vessel coronary artery bypass surgery. On 11/12/2019 patient seen in follow-up in the intensive care unit, he is very restless on today's exam, although nursing reports some improvement in his neurological status, and apparently patient is answering questions appropriately, and he knows he is in the hospital, and he is given verbal r esponses to questions. he is awake and alert, he is restless, but appears to be in no acute distress, he is moving his legs and arms bilaterally, squirming in bed. Does not appear to be in any respiratory distress. He is currently on 5 L of oxygen, with pulse ox of 100%, hemodynamically patient is stable, no fever or chills. Lactate of Ringer's infusing at a rate of 40 ML per hour. Today's est x-ray has been reviewed showing increasing airspace opacity of the right upper lobe, similar prominent interstitial markings, no pneumothorax, no pleural effusions. Left pleural chest tube is in place, with a total output of 340 ML in the last 24 hours, right pleural chest tube put out 380 mL of serosanguineous thin output in the last 24 hours, media still chest tubes have been discontinued. Patient has produced 1.3 L and urine output in the last 24 hours. Junior catheter remains in place. Today's lab work has been reviewed, showing white blood cell count of 17.6, hemoglobin is 9.3, sodium of 138, potassium 3.8, chloride is 108, CO2 is 20, B1 is 39, creatinine is 1.17. She is in sinus arrhythmia with frequent PACs on the monitor, amiodarone drip has been switched to oral amiodarone 400 mg twice daily, patient is on oral Cardizem 30 mg every 6 hours, and oral metoprolol 50 mg twice daily. Blood cultures have shown no growth at the 24-hour elly. Patient has been afebrile. windows systems administrator is at the bedside in view of confusion and agitation, Junior catheter still has hematuria, which is dark in color, yesterday's brain CT showed patchy. Ventricular and deep white matter changes, left greater than right which have progressed from 01/09/2019, and areas of subacute ischemia are not excluded, MRI can further evaluate, no acute intracranial hemorrhage or midline shift. On 11/17/2019 patient seen in follow-up in the intensive care unit, she is sedated, intubated, on mechanical ventilator, current vent settings are assist- control with a rate of 16, tidal and was 450, FiO2 is 40%, and PEEP of 5. This morning his blood gases reveal pO2 of 92, pCO2 34, pH is 7.47. Current IV drips include 0.9 normal saline at a rate of 5 ML per hour, and improving and is at 60 mics per kilo per minute, tube feedings are with vital high-protein at a rate of 54, with a goal of 54 with standard water flushes with 30 mL of water every 4 hours. Patient was given daily traction of sedation yesterday, he awoke, and reportedly follow commands, but quickly became very tachypneic and hypertensive and had to be placed back on mechanical ventilator. His chest x-ray shows stable findings, persistent central vascular congestion and bibasilar opacities. Small to moderate-sized bilateral pleural effusions, appear to be stable. Patient remains on IV Lasix at 40 mg every 12 hours, and he is very slightly negative, only 6 mL, however he did produced over 3 L in urine output in the last 24 hours. He is off the vasopressor support, his weight is stable, he does have some generalized edema involving his upper and lower extremities. Remains on empiric antibiotics in the form of cefepime and vancomycin. He is afebrile, his blood urine and sputum cultures have shown no growth thus far. Today's labs have been reviewed. His white blood cell is stable at 15, hemoglobin is 7.7, sodium is 136, the rest of electrolytes were within normal limits, B1 is 33, and creatinine is 1.04, his liver enzymes are coming down, AST is down to 130, ALT is 692, alk phos is fairly stable at 195, his pro-calcitonin level was elevated and 0.99, suggesting presence of bacterial infection. Patient has been afebrile, abdomen is soft, nontender, patient is tolerating tube feedings. His hematuria has cleared up. On 11/18/2019 patient seen in follow-up in the intensive care unit. Patient is still intubated, his sedation has been on hold since 7:00 this morning, patient is awake, he is following basic commands, squeezing with his left hand, however his right hand is flaccid, and patient is not able to squeeze with the right hand. His current vent settings are assist-control with a rate of 16, tidal volume is 450, FiO2 is 40%, and PEEP of 5. This is blood gases showed pO2 106, pCO2 35, and pH of 7.49. Currently on no drips other than 0.9 normal saline at a rate of KVO. Patient has been tolerating tube feedings. Yesterday we repeated his CT of the brain which showed no evidence of acute hemorrhage, areas of patchy low attenuation in the left parietal white matter previously noted on previous brain scan this could be on the basis of subacute ischemia. MRI of the brain was recommended, neurology consultation was requested and patient is suspected to have probable subacute stroke involving multiple patchy areas in the left MCA vascular territory consideration of cardioembolic source. Patient did have transient atrial fibrillation. Follow-up MRI and MRA of the brain will be done once the patient is extubated and is able to travel down to the MRI department. Today's chest x-ray shows diffuse bilateral pleural parenchymal changes, no pneumothorax. Consider pulmonary edema, or underlying pneumonia. So far blood and urine and sputum cultures remain negative. Patient is afebrile, hemodynamically he stable, empiric antibiotic coverage is with Zosyn, vancomycin has been discontinued, ID service is following. Patient is on IV Lasix at 40 mg every 12 hours. He has produced 2.7 L and urine output over last 24 hours, he is in -280 mL fluid balance. He seems to get slightly agitated at times, becomes hypertensive, today she is following commands, we will try to keep him off sedation, to fully assess his mentation and neurological status, we will repeat LFTs, and ammonia level. Objective - Vital Signs Vital signs: Vital Signs Temp 98.6 F 11/18/19 08:00 Pulse 89 11/18/19 12:26 Resp 17 11/18/19 11:00 BP 106/61 11/16/19 08:00 Pulse Ox 98 11/18/19 11:00 Intake & Output 11/17/19 11/18/19 11/18/19 18:59 06:59 18:59 Intake Total 5173.083 2736.931 580 Output Total 1450 1245 1215 Balance -65.000 -215.069 -635 Weight 94.1 kg 93.2 kg Intake: IV 493 221 166 .9NS @ 5ml/hr 65 55 30 Cefepime 2 gm In Sodium 100 100 Chloride 0.9% 100 ml @ 200 mls/hr IVPB Q12HR [facility] Rx#:[id number] Normal Saline Pressure 78 66 36 Bag Piperacillin-Tazobactam 3 100 .375 gm In Sodium Chloride 0.9% 100 ml @ 25 mls/hr IVPB Q8HR [facility] Rx# :[id number] Vancomycin 1,500 mg In 250 Sodium Chloride 0.9% 250 ml @ 125 mls/hr IVPB Q16H [facility] Rx#:[id number] Intake, IV Titration 100.000 124.931 Amount propofoL 1,000 mg In 100.000 124.931 Empty Bag 1 bag @ Titrate IV .Q0M [facility] Rx#: [id number] Tube Feeding 702 594 324 Other 90 90 90 Output: Urine 1450 1245 1215 Other: Voiding Method Indwelling Catheter Indwelling Catheter Indwelling Catheter ABP, PAP, CO, CI - Last Documented Arterial Blood Pressure 91/46 Pulmonary Artery Pressure 30/17 Cardiac Output 4.5 Cardiac Index 2.3 - Exam GENERAL EXAM: intubated 64-year-old white male, with FiO2 40%, patient is awake, he is following commands, he squeezing with his left hand on request, his right hand is flaccid HEAD: Normocephalic/atraumatic. EYES: Normal reaction of pupils, equal size. Conjunctiva pink, sclera white. NOSE: Clear with pink turbinates. Patient has a Dobbhoff feeding tube in place with tube feedings infusing THROAT: No erythema or exudates. NECK: No masses, no JVD, no thyroid enlargement, no adenopathy. CHEST: No chest wall deformity. Symmetrical expansion. Midsternal incision is clean dry and intact, right and left pleural chest tubes are in place, connected to Pleur-evac, with thin serosanguineous output in the Pleur-evacs, with no evidence of air leak, mediastinal chest tubes have been discontinued LUNGS: Equal air entry with no crackles, wheeze, rhonchi or dullness. CVS: Irregular rate and rhythm, normal S1 and S2, no gallops, no murmurs, no rubs ABDOMEN: Soft, nontender. No hepatosplenomegaly, normal bowel sounds, no guarding or rigidity. EXTREMITIES: No clubbing, no edema, no cyanosis, 2+ pulses and upper and lower extremities. MUSCULOSKELETAL: Muscle strength and tone normal. SPINE: No scoliosis or deformity SKIN: No rashes CENTRAL NERVOUS SYSTEM: Patient is awake, following simple commands, patient's right arm is flaccid, he is unable to squeeze with the right hand, he is squeezing on request with his left hand - Labs CBC & Chem 7: 11/18/19 04:00 11/18/19 04:00 Labs: Abnormal Lab Results - Last 24 Hours (Table) 11/17/19 11/17/19 11/17/19 Range/Units 16:55 20:00 23:53 WBC (3.8-10.6) k/uL RBC (4.30-5.90) m/uL Hgb (13.0-17.5) gm/dL Hct (39.0-53.0) % RDW (11.5-15.5) % Neutrophils # (1.3-7.7) k/uL Eosinophils # (0-0.7) k/uL ABG pH (7.35-7.45) ABG HCO3 (21-25) mmol/L ABG Total CO2 (19-24) mmol/L ABG O2 Saturation (94-97) % BUN (9-20) mg/dL POC Glucose (mg/dL) 184 H 176 H 141 H (75-99) mg/dL Calcium (8.4-10.2) mg/dL AST (17-59) U/L ALT (4-49) U/L Alkaline Phosphatase (38-126) U/L C-Reactive Protein (<10.0) mg/L Total Protein (6.3-8.2) g/dL Albumin (3.5-5.0) g/dL 11/18/19 11/18/19 11/18/19 Range/Units 04:00 04:00 07:56 WBC 14.7 H (3.8-10.6) k/uL RBC 2.30 L (4.30-5.90) m/uL Hgb 7.3 L (13.0-17.5) gm/dL Hct 22.9 L (39.0-53.0) % RDW 16.2 H (11.5-15.5) % Neutrophils # 11.0 H (1.3-7.7) k/uL Eosinophils # 0.8 H (0-0.7) k/uL ABG pH 7.49 H (7.35-7.45) ABG HCO3 27 H (21-25) mmol/L ABG Total CO2 28 H (19-24) mmol/L ABG O2 Saturation 98.7 H (94-97) % BUN 33 H (9-20) mg/dL POC Glucose (mg/dL) (75-99) mg/dL Calcium 7.9 L (8.4-10.2) mg/dL AST 88 H (17-59) U/L ALT 508 H (4-49) U/L Alkaline Phosphatase 191 H (38-126) U/L C-Reactive Protein 61.3 H (<10.0) mg/L Total Protein 5.3 L (6.3-8.2) g/dL Albumin 2.7 L (3.5-5.0) g/dL 11/18/19 11/18/19 Range/Units 08:18 11:48 WBC (3.8-10.6) k/uL RBC (4.30-5.90) m/uL Hgb (13.0-17.5) gm/dL Hct (39.0-53.0) % RDW (11.5-15.5) % Neutrophils # (1.3-7.7) k/uL Eosinophils # (0-0.7) k/uL ABG pH (7.35-7.45) ABG HCO3 (21-25) mmol/L ABG Total CO2 (19-24) mmol/L ABG O2 Saturation (94-97) % BUN (9-20) mg/dL POC Glucose (mg/dL) 117 H 119 H (75-99) mg/dL Calcium (8.4-10.2) mg/dL AST (17-59) U/L ALT (4-49) U/L Alkaline Phosphatase (38-126) U/L C-Reactive Protein (<10.0) mg/L Total Protein (6.3-8.2) g/dL Albumin (3.5-5.0) g/dL Microbiology - Last 24 Hours (Table) 11/12/19 14:40 Blood Culture - Preliminary Blood No Growth after 120 hours 11/12/19 14:40 Blood Culture - Preliminary Blood No Growth after 120 hours Assessment and Plan Plan: Assessment: 1 coronary artery disease without stable angina and non-STEMI. The patient underwent five-vessel bypass surgery. CABG 5 with GR to LAD, left radial artery to obtuse marginal, saphenous vein to posterior lateral, sequential saphenous vein to first and second diagonal performed on cardiopulmonary bypass with beating heart. Epi-aortic ultrasound and ligation of left atrial appendage with Ben clip. The patient is postop day #10. Hemodynamically stable. Pressors of been all discontinued. No active inotropes running at this point in time. 2 postoperative respiratory failure requiring reintubation related to progressive lactic acidosis, and metabolic acidosis with hypotension and evidence of pulmonary edema. The exact etiology is not clear chest x-ray shows small to moderate-sized bilateral effusions, central vascular congestion, with the possibility of fluid overload. Possibility of pneumonia is not excluded, patient is covered empirically with a combination of cefepime and vancomycin, Procalcitonin at the level is elevated to 0.99. So far urine and blood and sputum cultures are negative 3 altered mental status likely related to metabolic encephalopathy, initial CT of the brain showed patchy. Ventricular and deep white matter changes, subacute ischemia is not entirely ruled out, neurology is following 4 new-onset atrial fibrillation with RVR, expected outcome of surgery, currently in sinus rhythm 5 blood loss anemia , expected outcome of surgery, and this is likely of blood loss anemia. Patient transfused with 3 units of blood this admission 6 COPD with an FEV1 of 60% of predicted at baseline 7 Peripheral vascular disease with prior peripheral stent placements 8 Right carotid artery stenosis at 50-69% 9 History of marijuana use 10 Diabetes mellitus, type II, insulin drip for blood sugar control, running at 1.5 units per hour. 11 History of bladder cancer status post radiation/chemotherapy and subsequent surgery 12 History of noncompliance Plan: We'll hold the Diprivan, if patient becomes agitated, will use Precedex, we'll repeat LFTs, ammonia level, today's chest x-ray has been reviewed showing b ilateral infiltrates, patient remains on antibiotics, currently just on Zosyn, sputum culture urine culture and blood cultures are negative thus far, vancomycin has been discontinued, he is afebrile. Continue same dose diuretics, patient is maintaining negative fluid balance. Neurology consultation was noted, patient is awake, he is found simple commands, but he is not moving his right arm, and patient probably sustained a subacute stroke involving multiple patchy areas in the left MCA. If patient is awake, following commands and comfortable likely may pressure-support spontaneous breathing trials. We'll continue to closely monitor. Currently off sedation, vital signs have been stable. I performed a history & physical examination of the patient and discussed their management with my nurse practitioner, Elva Newberry. I reviewed the nurse practitioner's note and agree with the documented findings and plan of care. Lung sounds are positive for clear breath sounds. The findings and the impression was discussed with the patient. I attest to the documentation by the nurse practitioner. Time with Patient: Greater than 30
--- NOTE | 2019-11-18 15:27 | P.PN ---
Subjective Progress Note Date: 11/18/19 Principal diagnosis: Patient is a [id number]-neb male was recently discharged from the hospital came back in with the chest pain pressure-like sensation lasted for a few hours nonexertional did have elevated troponins. Patient had a triple-vessel disease patient is scheduled to undergo coronary artery bypass grafting on Friday went home started smoking again started having chest pain. Chest x-ray was read as pulmonary edema. It is not elevated patient clinically doesn't have any JVD or crackles or wheezing. 11/09/2019 Patient is status post CABG he was extubated the last night. Patient is presently on norepinephrine, milrinone, IV insulin. Patient still has a Lyman- Juni in place most of the management is being done by cardiac thoracic surgery patient was bit confused earlier today doing well now. 11/10/2019 Patient is still confused as per the family his confusion is better patient is a low-grade fever probably because of atelectasis a lot and blood cultures. Patient received Lasix for pulmonary edema, patient's mediastinal chest use with remote patient still has left pleural chest tubes Review of systems: Unable to obtain as patient is tired and sleepy All inpatient medications were reviewed and appropriate changes in these medications as dictated in the interval history and assessment and plan. 11/11/2019 Patient is seen and evaluated and follow-up currently remains in the ICU and is being closely monitored. Since hemoglobin was found to be 6.7 this morning and is currently receiving 1 unit of PRBCs. Potassium is 4.4, creatinine is 1.09, magnesium is 2.3. Patient went into atrial fibrillation with RVR and is being maintained on amiodarone drip and will transition to oral medications. Patient continues to have chest tubes along with indwelling Junior catheter which shows some hematuria as patient pulled it out. Patient has been afebrile with intermittent low-grade temps 99.7F and white count today is 14.1. Patient remains on an insulin drip and will continue at this time. Will continue to follow along closely with cardio thoracic surgery. 11/12/2019 Patient is seen and evaluated and follow-up continues to be closely monitored in the ICU. Patient is currently restless and seems to be having some shortness of breath. Patient is placed on nasal cannula although was mouth breathing and is currently on 5 L of oxygen. Patient was on insulin drip which has been discontinued and patient will be continued on sliding scale as patient now has a diet ordered although isn't eating very much. Patient continues to be confused and not following commands. Patient had a chest x-ray today status post chest tube removal showing no evidence of residual pneumothorax. Patient underwent brain CT yesterday showing patchy periventricular and deep white matter changes, left greater than right that have progressed since 01/19/2019 with demyelinating disease or other infectious inflammatory etiologies are possible, and no acute intracranial hemorrhage or midline shift noted. 11/13/2019 Patient became to Make and found to have metabolic acidosis with respiratory compensation progressively got fatigued event into respiratory failure subsequently intubated patient received the bicarbonate infusion for severe metabolic acidosis and patient had lactic acidosis with the lactic acid going up to 11 which came down to 1.5 patient is also started on pressor support with Levophed on mechanical ventilator with tidal volume of 450 set up respiratory of 24 FiO2 of 50% PEEP of 5 urine output is fairly. Chest x-ray showing mild pulmonary vascular congestion with the pleural effusions bilaterally 11/14/2019 Patient the did not tolerate weaning trial. Patient remains on ventilatory support. Patient is a one dose of vancomycin patient is presently on IV Zosyn for fevers although etiology of fevers is not clear at this time. Patient blood sugars are high receiving 3 units every 4 hours as per sliding scale patient wi ll be started on long-acting insulin 15 units and continue with sliding scale Review of systems: Unable to obtain as patient is tired and sleepy All inpatient medications were reviewed and appropriate changes in these medications as dictated in the interval history and assessment and plan. 11/15/2019 Patient is seen and evaluated and follow-up and currently remains in the ICU on mechanical ventilation and is being closely monitored. Patient continues to have a Dobbhoff for nutrition and remains on long-acting Levemir 15 units at bed along with sliding scale and will continue at this time. Patient is currently maintained on IV vancomycin along with Zosyn and infectious disease has been consulted. Patient is afebrile for 24 hours. White blood count is trending down and is currently 15.3 today. 11/16/2019 Patient is seen and evaluated in follow-up continues to be on a mechanical ve ntilator and intubated with sedation and is being closely monitored in the ICU. Patient continues to have elevated blood sugars and have increased the long- acting Levemir to 20 units and will continue with sliding scale and added 5 units every 4 hours For tighter glycemic control. Patient remains on tube feedings at goal via a Dobbhoff system. Multiple medical consultations following. Patient is maintained on IV vancomycin and cefepime and will continue at this time. White blood count slowly trending down at 15.2 today. Chest x-ray showing some pleural effusions and a chest ultrasound was performed showing bilateral pleural effusions although small in size and were not marked. 11/17/2019 Patient is seen and evaluated in follow-up currently continued on a mechanical ventilator and intubated and continues to be closely monitored in the ICU. Sedation has been on hold and patient eyes are opening Although not following commands. patient underwent head CT showing no evidence of acute hemorrhage with areas of patchy low attenuation left parietal white matter as previously noted and are of indeterminate age and could possibly be on the basis of subacute ischemia with no significant interval change. Degenerative and suspect remote ischemic change also noted and correlate with MRI as clinically warranted. Neurology was consulted and pending at this time. Multiple medical consultations following. Patient is currently maintained on cefepime and vancomycin and will continue at this time. White blood count elevated at 15.0 With hemoglobin of 7.7. Current creatinine is 1.04. Patient remains afebrile. Will continue to monitor closely. 11/18/2019 Patient is seen and evaluated in follow-up today currently continues to be in the ICU being closely monitored. Remains intubated although have been holding propofol and patient appears to be following commands with the left extremity although right upper extremity is flaccid. Neurology evaluated the patient and recommended MRI and this will be done once patient is extubated and more stable. CT of the head findings are probable of a subacute stroke involving multiple patchy areas in the left MCA vascular territory with the possibility of a cardio embolic source. Patient did have transient atrial fibrillation. There is right ICA stenosis of 50-69% on the carotid Doppler. Patient's 2-D echo showed no obvious embolic source. Patient remains on aspirin and Plavix along with statin and will continue at this time. Attempts to use Precedex as patient is off propofol at this time. Multiple medical consultations following. Patient continues on IV antibiotics in the form of cefepime and vancomycin has been discontinued. Infectious disease is following. Today's chest x-ray shows diffuse bilateral pleural parenchymal changes correlate for ards, pulmonary edema, or diffuse pneumonia and patient is maintained on IV Lasix and will continue at this time. White count is 14.7 today, hemoglobin is 7.3. Current creatinine is 1.05 with a BUNs of 33. Ammonia level less than 9. Will continue to monitor closely. Review of systems: Unable to obtain as patient is intubated and sedated Active Medications Acetaminophen (Tylenol Tab) 1,000 mg PO Q6HR PRN PRN Reason: Fever and/ or Pain Last Admin: 11/11/19 12:49 Dose: 1,000 mg Documented by: Albuterol/Ipratropium (Duoneb 0.5 Mg-3 Mg/3 Ml Soln) 3 ml INHALATION RT-Q2H PRN PRN Reason: Shortness Of Breath Or Wheezing Albuterol/Ipratropium (Duoneb 0.5 Mg-3 Mg/3 Ml Soln) 3 ml INHALATION RT-QID [facility] Last Admin: 11/18/19 12:18 Dose: 3 ml Documented by: Amiodarone HCl (Cordarone) 200 mg PO BID [facility] Last Admin: 11/18/19 08:24 Dose: 200 mg Documented by: Ascorbic Acid (Vitamin C) 500 mg PO BID-W/MEALS [facility] Last Admin: 11/18/19 06:33 Dose: 500 mg Documented by: Aspirin (Aspirin) 325 mg PO DAILY [facility] Last Admin: 11/18/19 08:24 Dose: 325 mg Documented by: Atorvastatin Calcium (Lipitor) 40 mg PO DAILY [facility] Last Admin: 11/18/19 08:24 Dose: 40 mg Documented by: Benzocaine/Menthol (Cepacol Lozenge) 1 each MUCOUS MEM Q2H PRN PRN Reason: Sore Throat Bisacodyl (Dulcolax) 10 mg RECTAL DAILY PRN PRN Reason: Constipation Chlorhexidine Gluconate (Peridex) 15 ml MUCOUS MEM BID [facility] Last Admin: 11/18/19 08:24 Dose: 15 ml Documented by: Clopidogrel Bisulfate (Plavix) 75 mg PO DAILY [facility] Last Admin: 11/18/19 08:24 Dose: 75 mg Documented by: Ferrous Sulfate (Feosol) 300 mg PO BID-W/MEALS [facility] Last Admin: 11/18/19 06:33 Dose: 300 mg Documented by: Furosemide (Lasix) 40 mg IV Q12HR [facility] Last Admin: 11/18/19 08:24 Dose: 40 mg Documented by: Heparin Sodium (Porcine) (Heparin) 5,000 unit SQ Q8HR [facility] Last Admin: 11/18/19 08:24 Dose: 5,000 unit Documented by: Amiodarone HCl 150 mg/ (Dextrose/Water) 103 mls @ 618 mls/hr IV .Q10M PRN; Protocol PRN Reason: A.FIB/FLUTTER Last Admin: 11/18/19 11:15 Dose: 618 mls/hr Documented by: Piperacillin Sod/Tazobactam (Sod 3.375 gm/ Sodium Chloride) 100 mls @ 25 mls/hr IVPB Q8HR [facility] Last Admin: 11/18/19 08:23 Dose: 25 mls/hr Documented by: Dexmedetomidine HCl 400 mcg/ (IV Solution) 100 mls @ 0 mls/hr IV .Q0M [facility]; Protocol Stop: 11/19/19 09:19 Last Admin: 11/18/19 10:15 Dose: 0.2 mcg/kg/hr, 4.66 mls/hr Documented by: Insulin Aspart (Novolog) 0 unit SQ Q4HR [facility]; Protocol Last Admin: 11/18/19 12:06 Dose: Not Given Documented by: Insulin Aspart (Novolog) 5 unit SQ Q4HR [facility] Last Admin: 11/18/19 12:08 Dose: 5 unit Documented by: Insulin Detemir (Levemir) 20 unit SQ HS [facility] Last Admin: 11/17/19 20:33 Dose: 20 unit Documented by: Magnesium Hydroxide (Milk Of Magnesia) 2,400 mg PO BID PRN PRN Reason: Constipation Metoprolol Tartrate (Lopressor) 12.5 mg PO TID [facility] Last Admin: 11/18/19 08:25 Dose: 12.5 mg Documented by: Miscellaneous Information (Magnesium Per Protocol) 1 each MISCELLANE DAILY PRN; Protocol PRN Reason: Per Protocol Miscellaneous Information (Potassium Per Protocol) 1 each MISCELLANE DAILY PRN; Protocol PRN Reason: Per Protocol Miscellaneous Information (Phosphorus Per Protocol) 1 each MISCELLANE DAILY PRN; Protocol PRN Reason: Per Protocol Nystatin (Mycostatin Oral Susp) 500,000 unit PO QID [facility] Last Admin: 11/18/19 12:09 Dose: 500,000 unit Documented by: Ondansetron HCl (Zofran) 4 mg IVP Q6HR PRN PRN Reason: Nausea And Vomiting Pantoprazole Sodium (Protonix) 40 mg PO AC-BRKFST [facility] Last Admin: 11/18/19 06:33 Dose: 40 mg Documented by: Senna/Docusate Sodium (Senokot-S) 2 each PO HS [facility] Last Admin: 11/17/19 20:44 Dose: 2 each Documented by: Silver Sulfadiazine (Silvadene Cream) 1 applic TOPICAL BID [facility] Last Admin: 11/18/19 08:25 Dose: 1 applic Documented by: Sodium Chloride (Saline Flush) 10 ml IV BID [facility] Last Admin: 11/18/19 08:25 Dose: 10 ml Documented by: Objective - Vital Signs Vital signs: Vital Signs Temp 98.5 F 11/18/19 12:00 Pulse 68 11/18/19 15:00 Resp 16 11/18/19 15:00 BP 106/61 11/16/19 08:00 Pulse Ox 99 11/18/19 15:00 Intake & Output 11/17/19 11/18/19 11/18/19 18:59 06:59 18:59 Intake Total 2874.901 0972.931 775 Output Total 1450 1245 1885 Balance -65.000 -215.069 -1110 Weight 94.1 kg 93.2 kg Intake: IV 493 221 199 .9NS @ 5ml/hr 65 55 45 Cefepime 2 gm In Sodium 100 100 Chloride 0.9% 100 ml @ 200 mls/hr IVPB Q12HR [facility] Rx#:[id number] Normal Saline Pressure 78 66 54 Bag Piperacillin-Tazobactam 3 100 .375 gm In Sodium Chloride 0.9% 100 ml @ 25 mls/hr IVPB Q8HR [facility] Rx# :[id number] Vancomycin 1,500 mg In 250 Sodium Chloride 0.9% 250 ml @ 125 mls/hr IVPB Q16H [facility] Rx#:[id number] Intake, IV Titration 100.000 124.931 Amount propofoL 1,000 mg In 100.000 124.931 Empty Bag 1 bag @ Titrate IV .Q0M [facility] Rx#: [id number] Tube Feeding 702 594 486 Other 90 90 90 Output: Urine 1450 1245 1885 Other: Voiding Method Indwelling Catheter Indwelling Catheter Indwelling Catheter ABP, PAP, CO, CI - Last Documented Arterial Blood Pressure 98/42 Pulmonary Artery Pressure 30/17 Cardiac Output 4.5 Cardiac Index 2.3 - Exam GENERAL: Patient is intubated and sedated. Temp is 98.6F, pulse is 87, respirations are 21, blood pressures 113/48, Oxygen saturation is 98% on mechan ical ventilator with an FiO2 of 40 HEENT: Pupils are round and equally reacting to light. EOMI. No scleral icterus. No conjunctival pallor. Normocephalic, atraumatic. No pharyngeal erythema. No thyromegaly. triple lumen IJ Noted on the right. Dobbhoff tube feeding system noted CARDIOVASCULAR: S1 and S2 present. No murmurs, rubs, or gallops. PULMONARY: Diminished breath sounds bilaterally with some scattered rhonchi. ABDOMEN: Soft, nontender, nondistended, normoactive bowel sounds. No palpable organomegaly. MUSCULOSKELETAL: No joint swelling or deformity. EXTREMITIES: No cyanosis, clubbing, or pedal edema. NEUROLOGICAL: Currently on Precedex and propofol has been off, following simple commands although right upper extremity appears flaccid SKIN: No rashes. Stage II pressure ulcer on coccyx with dressing applied - Labs CBC & Chem 7: 11/18/19 04:00 11/18/19 04:00 Labs: Abnormal Lab Results - Last 24 Hours (Table) 11/17/19 11/17/19 11/17/19 Range/Units 16:55 20:00 23:53 WBC (3.8-10.6) k/uL RBC (4.30-5.90) m/uL Hgb (13.0-17.5) gm/dL Hct (39.0-53.0) % RDW (11.5-15.5) % Neutrophils # (1.3-7.7) k/uL Eosinophils # (0-0.7) k/uL ABG pH (7.35-7.45) ABG HCO3 (21-25) mmol/L ABG Total CO2 (19-24) mmol/L ABG O2 Saturation (94-97) % BUN (9-20) mg/dL POC Glucose (mg/dL) 184 H 176 H 141 H (75-99) mg/dL Calcium (8.4-10.2) mg/dL AST (17-59) U/L ALT (4-49) U/L Alkaline Phosphatase (38-126) U/L C-Reactive Protein (<10.0) mg/L Total Protein (6.3-8.2) g/dL Albumin (3.5-5.0) g/dL 11/18/19 11/18/19 11/18/19 Range/Units 04:00 04:00 07:56 WBC 14.7 H (3.8-10.6) k/uL RBC 2.30 L (4.30-5.90) m/uL Hgb 7.3 L (13.0-17.5) gm/dL Hct 22.9 L (39.0-53.0) % RDW 16.2 H (11.5-15.5) % Neutrophils # 11.0 H (1.3-7.7) k/uL Eosinophils # 0.8 H (0-0.7) k/uL ABG pH 7.49 H (7.35-7.45) ABG HCO3 27 H (21-25) mmol/L ABG Total CO2 28 H (19-24) mmol/L ABG O2 Saturation 98.7 H (94-97) % BUN 33 H (9-20) mg/dL POC Glucose (mg/dL) (75-99) mg/dL Calcium 7.9 L (8.4-10.2) mg/dL AST 88 H (17-59) U/L ALT 508 H (4-49) U/L Alkaline Phosphatase 191 H (38-126) U/L C-Reactive Protein 61.3 H (<10.0) mg/L Total Protein 5.3 L (6.3-8.2) g/dL Albumin 2.7 L (3.5-5.0) g/dL 11/18/19 11/18/19 Range/Units 08:18 11:48 WBC (3.8-10.6) k/uL RBC (4.30-5.90) m/uL Hgb (13.0-17.5) gm/dL Hct (39.0-53.0) % RDW (11.5-15.5) % Neutrophils # (1.3-7.7) k/uL Eosinophils # (0-0.7) k/uL ABG pH (7.35-7.45) ABG HCO3 (21-25) mmol/L ABG Total CO2 (19-24) mmol/L ABG O2 Saturation (94-97) % BUN (9-20) mg/dL POC Glucose (mg/dL) 117 H 119 H (75-99) mg/dL Calcium (8.4-10.2) mg/dL AST (17-59) U/L ALT (4-49) U/L Alkaline Phosphatase (38-126) U/L C-Reactive Protein (<10.0) mg/L Total Protein (6.3-8.2) g/dL Albumin (3.5-5.0) g/dL Microbiology - Last 24 Hours (Table) 11/12/19 14:40 Blood Culture - Preliminary Blood No Growth after 120 hours 11/12/19 14:40 Blood Culture - Preliminary Blood No Growth after 120 hours Assessment and Plan Assessment: -Acute non-ST elevation myocardial infarction: Coronary artery diseasepatient is status post five-vessel coronary artery bypass grafting -Possible subacute stroke involving multiple patchy areas in the left MCA as noted on brain CT -Stage II pressure ulcer on coccyx -Postoperative metabolic encephalopathy -Acute respiratory failure hypoxic, patient had metabolic acidosis probably due to decreased organ perfusion presently intubated and sedated -New onset paroxysmal atrial fibrillation with RVR, Presently rate controlled -Leukocytosis reactive because of patient's lactic Acidosis and overall clinical condition -Possible congestive heart failure chronic diastolic dysfunction with acute exacerbation -Low-grade fever probably because of atelectasis, improving -Hypertension -Hyperlipidemia -Type 2 diabetes mellitus -COPD without any acute exacerbation -Severe peripheral vascular disease -History of bladder cancer status post chemotherapy and radiation - nicotine use and marijuana use Plan: Continue current medications, management, and symptomatic treatment. Patient currently remains intubated and sedated in the ICU with discussion of possible attempts at weaning. Propofol has been off and Precedex has been initiated. Will continue to monitor closely. Multiple medical consultations following. Neurology following. Will continue to monitor blood sugars and titrate medications as needed. Patient remains on tube feedings and will continue at this time. Patient also continues on IV cefepime and vancomycin has been discontinued. Infectious disease is following. Due to multiple complex medical conditions, prognosis is extremely guarded. Further recommendations to follow.
[2019-11-18 16:00] LABS: Glucose,Whole Blood 129 mg/dL (75-99)
--- NOTE | 2019-11-18 18:20 | P.PN ---
Subjective Progress Note Date: 11/18/19 Patient was seen for a follow-up. Patient still on a ventilator. Objective - Vital Signs Vital signs: Vital Signs Temp 97.9 F 11/18/19 16:00 Pulse 71 11/18/19 17:00 Resp 17 11/18/19 17:00 BP 106/61 11/16/19 08:00 Pulse Ox 100 11/18/19 17:00 Intake & Output 11/17/19 11/18/19 11/18/19 18:59 06:59 18:59 Intake Total 1051.127 7130.931 965 Output Total 1450 1245 1979 Balance -65.000 -215.069 -1015 Weight 94.1 kg 93.2 kg Intake: IV 493 221 221 .9NS @ 5ml/hr 65 55 55 Cefepime 2 gm In Sodium 100 100 Chloride 0.9% 100 ml @ 200 mls/hr IVPB Q12HR [facility] Rx#:[id number] Normal Saline Pressure 78 66 66 Bag Piperacillin-Tazobactam 3 100 .375 gm In Sodium Chloride 0.9% 100 ml @ 25 mls/hr IVPB Q8HR [facility] Rx# :[id number] Vancomycin 1,500 mg In 250 Sodium Chloride 0.9% 250 ml @ 125 mls/hr IVPB Q16H [facility] Rx#:[id number] Intake, IV Titration 100.000 124.931 Amount propofoL 1,000 mg In 100.000 124.931 Empty Bag 1 bag @ Titrate IV .Q0M [facility] Rx#: [id number] Tube Feeding 702 594 594 Other 90 90 150 Output: Urine 1450 1245 1979 Other: Voiding Method Indwelling Catheter Indwelling Catheter Indwelling Catheter ABP, PAP, CO, CI - Last Documented Arterial Blood Pressure 107/45 Pulmonary Artery Pressure 30/17 Cardiac Output 4.5 Cardiac Index 2.3 - Exam Patient is much more alert and awake. He sometimes makes eye contact. He is awake. Patient trying to follow some commands. Pupils are round and reacting. Visual gruber difficult to assess. Extraocular muscles appears intact. Face cannot be assessed or the tongue. Patient moves his left hand and foot better than the right side. He did wiggle his right foot and also moved his left hand. I asked him to show me his thumb, and he raised the right thumb and the right index finger together. He does appear a meaningful response. However appears generalized weak. Significant peripheral edema. - Labs CBC & Chem 7: 11/18/19 04:00 11/18/19 04:00 Labs: Abnormal Lab Results - Last 24 Hours (Table) 11/17/19 11/17/19 11/18/19 Range/Units 20:00 23:53 04:00 WBC (3.8-10.6) k/uL RBC (4.30-5.90) m/uL Hgb (13.0-17.5) gm/dL Hct (39.0-53.0) % RDW (11.5-15.5) % Neutrophils # (1.3-7.7) k/uL Eosinophils # (0-0.7) k/uL ABG pH (7.35-7.45) ABG HCO3 (21-25) mmol/L ABG Total CO2 (19-24) mmol/L ABG O2 Saturation (94-97) % BUN 33 H (9-20) mg/dL POC Glucose (mg/dL) 176 H 141 H (75-99) mg/dL Calcium 7.9 L (8.4-10.2) mg/dL AST 88 H (17-59) U/L ALT 508 H (4-49) U/L Alkaline Phosphatase 191 H (38-126) U/L C-Reactive Protein 61.3 H (<10.0) mg/L Total Protein 5.3 L (6.3-8.2) g/dL Albumin 2.7 L (3.5-5.0) g/dL 11/18/19 11/18/19 11/18/19 Range/Units 04:00 07:56 08:18 WBC 14.7 H (3.8-10.6) k/uL RBC 2.30 L (4.30-5.90) m/uL Hgb 7.3 L (13.0-17.5) gm/dL Hct 22.9 L (39.0-53.0) % RDW 16.2 H (11.5-15.5) % Neutrophils # 11.0 H (1.3-7.7) k/uL Eosinophils # 0.8 H (0-0.7) k/uL ABG pH 7.49 H (7.35-7.45) ABG HCO3 27 H (21-25) mmol/L ABG Total CO2 28 H (19-24) mmol/L ABG O2 Saturation 98.7 H (94-97) % BUN (9-20) mg/dL POC Glucose (mg/dL) 117 H (75-99) mg/dL Calcium (8.4-10.2) mg/dL AST (17-59) U/L ALT (4-49) U/L Alkaline Phosphatase (38-126) U/L C-Reactive Protein (<10.0) mg/L Total Protein (6.3-8.2) g/dL Albumin (3.5-5.0) g/dL 11/18/19 11/18/19 Range/Units 11:48 15:59 WBC (3.8-10.6) k/uL RBC (4.30-5.90) m/uL Hgb (13.0-17.5) gm/dL Hct (39.0-53.0) % RDW (11.5-15.5) % Neutrophils # (1.3-7.7) k/uL Eosinophils # (0-0.7) k/uL ABG pH (7.35-7.45) ABG HCO3 (21-25) mmol/L ABG Total CO2 (19-24) mmol/L ABG O2 Saturation (94-97) % BUN (9-20) mg/dL POC Glucose (mg/dL) 119 H 129 H (75-99) mg/dL Calcium (8.4-10.2) mg/dL AST (17-59) U/L ALT (4-49) U/L Alkaline Phosphatase (38-126) U/L C-Reactive Protein (<10.0) mg/L Total Protein (6.3-8.2) g/dL Albumin (3.5-5.0) g/dL Microbiology - Last 24 Hours (Table) 11/12/19 14:40 Blood Culture - Final Blood No Growth after 144 hours 11/12/19 14:40 Blood Culture - Final Blood No Growth after 144 hours Assessment and Plan Assessment: * Probable subacute stroke involving multiple patchy areas in the left MCA vascular territory. Rule out cardioembolic source. Patient had transient atrial fibrillation, therefore cardioembolic stroke is definitely a possibility. * Status post coronary artery bypass grafting. * Right ICA stenosis 50-69% per carotid ultrasound. * Hypertension * Diabetes * Medical noncompliance in the past. * Tobacco use. Plan: * Await MRI of the brain without contrast, and MRA of the brain without contrast, when possible. * Patient's 2-D echo showed no obvious embolic source at this time. * Carotid Doppler showed 50-69% stenosis proximal right ICA. * Patient currently on aspirin 325 mg and Plavix 75 mg. Also on Lipitor 40 mg. * Patient neurologically showing better response today as above. * Neurology will follow.
[2019-11-18 19:55] LABS: Glucose,Whole Blood 153 mg/dL (75-99)
[2019-11-18] MEDS: INSULIN DETEMIR (LEVEMIR) 100 UNIT/ML SYR SQ SCH (20:15)
[2019-11-18] MEDS: SENNOSIDES-DOCUSATE SODIUM 1 EACH TAB PO SCH (21:31)
[2019-11-19 00:54] LABS: Glucose,Whole Blood 122 mg/dL (75-99)
[2019-11-19] MEDS: ACETAMINOPHEN TAB 500 MG TAB PO PRN (00:56)
[2019-11-19] MEDS: INSULIN ASPART (NovoLOG) 100 UNIT/ML VIAL SQ SCH ×12 (00:57→21:23)
--- NOTE | 2019-11-19 00:57 | PN ---
PROGRESS NOTE DATE OF SERVICE: 11/18/2019 REASON FOR FOLLOWUP: Leukocytosis, possible aspiration pneumonitis. INTERVAL HISTORY: The patient is currently afebrile. The patient is hemodynamically stable. FiO2 is currently stable. Tolerating his tube feeds. No diarrhea has been reported by the nursing staff. PHYSICAL EXAMINATION: Blood pressure 115/47, pulse of 64, temperature of 98. He is 95% on 50% FiO2. General description is an elderly male, intubated on the vent. RESPIRATORY SYSTEM: Unlabored breathing, decreased breath sounds at the bases. No wheeze. HEART: S1, S2. Regular rate and rhythm. ABDOMEN: Soft, no tenderness. LABS: Hemoglobin 7.3, white count 14.7, BUN of 33, creatinine 1.05. DIAGNOSTIC IMPRESSION AND PLAN: Patient with leukocytosis likely multifactorial concern for possible aspiration pneumonitis. Patient is currently covered with Zosyn to continue and monitor clinical course, cultures and white count closely. Plan of care was discussed with the CT team. MMNICKL / JASEN: [id number] /
[2019-11-19 04:01] LABS: Glucose,Whole Blood 100 mg/dL (75-99)
[2019-11-19 05:50] LABS: Anisocytosis Slight; HGB 7.4 gm/dL (13.0-17.5); Hypochromasia Moderate; MCH 32.2 pg (25.0-35.0); MCHC 32.1 g/dL (31.0-37.0); MCV 100.3 fL (80.0-100.0); Macrocytosis Slight; Mean Platelet Volume 9.4; Platelet Count 239 k/uL (150-450); RBC 2.29 m/uL (4.30-5.90); RDW 16.1 % (11.5-15.5); WBC 13.3 k/uL (3.8-10.6)
[2019-11-19 06:07] LABS: Albumin 2.9 g/dL (3.5-5.0); Calcium 8.1 mg/dL (8.4-10.2); Potassium 3.5 mmol/L (3.5-5.1); Total Protein 5.4 g/dL (6.3-8.2)
[2019-11-19] MEDS: PANTOPRAZOLE 40 MG TABLET PO SCH (06:36)
[2019-11-19] MEDS: ASCORBIC ACID 500 MG TAB PO SCH ×2 (06:36→15:43)
[2019-11-19] MEDS: FERROUS SULFATE ORAL ELIXIR 300 MG/5 ML CUP PO SCH ×2 (06:36→16:46)
[2019-11-19] MEDS: POTASSIUM BICARBONATE/CIT AC 20 MEQ TABLET.EFF NG-TUBE SCH ×2 (06:44→08:15)
[2019-11-19 06:49] LABS: Glucose,Whole Blood 102 mg/dL (75-99)
--- NOTE | 2019-11-19 07:34 | P.PN ---
Subjective Progress Note Date: 11/19/19 Principal diagnosis: Symptomatic multivessel coronary artery disease, unstable angina, status post subendocardial myocardial infarction. 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 Endoscopic vein harvest of the left greater saphenous vein from the ankle to the groin. Endoscopic harvest of the left radial artery. Epi-aortic ultrasound and ligation of left atrial appendage with 40 mm AtriCure clip Postoperative acute blood loss anemia, expected outcome given cardiopulmonary bypass and hemodilution Postoperative encephalopathy, unexpected but potential outcome given cardiopulmonary bypass and intraoperative cardiac arrest Postoperative new onset paroxysmal Afib with RVR, unexpected Postoperative acute hypoxemic respiratory failure requiring reintubation, secondary to metabolic acidosis and hypotension. Postoperative stage II pressure ulcer on coccyx, unexpected The patient was seen and examined in the intensive care unit this morning. He remains intubated. Has been off propofol since yesterday, currently on Precedex. He is opening his eyes and tracking. Squeezing left hand to command, wiggling fingers of right hand, moves toes bilaterally. He nods/shakes his head to command. Continues to be no pressors or inotropes, remains in sinus rhythm to sinus bradycardia and hemodynamically stable. Tube feeding continues, urine output adequate. updated daily and all questions answered. Objective - Vital Signs Vital signs: Vital Signs Temp 97.2 F L 11/19/19 04:00 Pulse 55 L 11/19/19 05:00 Resp 17 11/19/19 05:00 BP 105/45 11/19/19 00:20 Pulse Ox 95 11/19/19 05:00 Intake & Output 11/18/19 11/19/19 11/19/19 18:59 06:59 18:59 Intake Total 1030 302.900 Output Total 2039 1045 Balance -1010 -132.100 Weight 91 kg Intake: IV 232 121 .9NS @ 5ml/hr 60 55 Normal Saline Pressure 72 66 Bag Piperacillin-Tazobactam 3 100 .375 gm In Sodium Chloride 0.9% 100 ml @ 25 mls/hr IVPB Q8HR [facility]AN Rx# :[id number] Intake, IV Titration 73.900 Amount Dexmedetomidine/0.9% NaCl 73.900 (Pmx) 400 mcg In Empty Bag 1 bag @ Titrate IV . Q0M YVAN Rx#:[id number] Tube Feeding 648 108 Other 150 Output: Urine 2039 1045 Other: Voiding Method Indwelling Catheter Indwelling Catheter ABP, PAP, CO, CI - Last Documented Arterial Blood Pressure 109/45 Pulmonary Artery Pressure 30/17 Cardiac Output 4.5 Cardiac Index 2.3 - Constitutional General appearance: Present: cooperative, no acute distress - Respiratory Details: Lungs sounds diminished bilaterally. Respirations even, nonlabored on mechanical ventilation. Current settings assist control mode, FiO2 40%, tidal volume 450, respiratory rate 16, PEEP 5. Oxygen saturations remain high 90s. 8.0 ET tube present, 23 at the lip. - Cardiovascular Details: S1, S2 present. Slow but regular rate and rhythm, sinus rhythm to sinus bradycardia on telemetry with heart rate in the high 50s to low 60s. Sternum stable. A/V epicardial pacemaker wires present, connected to generator, AAI mode with a backup rate 50 bpm. Palpable peripheral pulses bilaterally. Generalized edema present. Right internal jugular triple-lumen central line, right radial arterial line present. Heart hugger, SCDs, antiembolism stockings present. - Gastrointestinal Gastrointestinal Comment(s): Abdomen soft, nontender, nondistended. Active bowel sounds present [address], tube feeding infusing at 54 mL/h which is goal. Last documented bowel movement 11/15/2019. - Genitourinary Genitourinary Comment(s): Newman present draining clear rachana urine with occasional sediment. Output 200 mL early shift after receiving Lasix trending down towards 30 mL/h this morning. - Integumentary Integumentary Comment(s): Skin is warm and dry with evidence of good perfusion. She anterior chest incision well approximated without redness or drainage, covered with dry intact dressing. Left lower extremity EVH site well approximated without drainage or redness. Left radial artery harvest site dry and intact without redness or drainage, good cap refill. Stage II pressure ulcer present to coccyx area, treated with Silvadene cream, dressing dry and intact. - Neurologic Neurologic Comment(s): Patient opens his eyes and tracks, follows some commands, squeezes with left hand, wiggles fingers on his right hand as well as bilateral toes. - Musculoskeletal Musculoskeletal: Present: right sided weakness - Allied health notes Allied health notes reviewed: nursing - Labs CBC & Chem 7: 11/19/19 04:57 11/19/19 04:57 Labs: Abnormal Lab Results - Last 24 Hours (Table) 11/18/19 11/18/19 11/18/19 Range/Units 07:56 08:18 11:48 WBC (3.8-10.6) k/uL RBC (4.30-5.90) m/uL Hgb (13.0-17.5) gm/dL Hct (39.0-53.0) % MCV (80.0-100.0) fL RDW (11.5-15.5) % ABG pH 7.49 H (7.35-7.45) ABG HCO3 27 H (21-25) mmol/L ABG Total CO2 28 H (19-24) mmol/L ABG O2 Saturation 98.7 H (94-97) % BUN (9-20) mg/dL Glucose (74-99) mg/dL POC Glucose (mg/dL) 117 H 119 H (75-99) mg/dL Calcium (8.4-10.2) mg/dL AST (17-59) U/L ALT (4-49) U/L Alkaline Phosphatase (38-126) U/L Total Protein (6.3-8.2) g/dL Albumin (3.5-5.0) g/dL 11/18/19 11/18/19 11/19/19 Range/Units 15:59 19:53 00:52 WBC (3.8-10.6) k/uL RBC (4.30-5.90) m/uL Hgb (13.0-17.5) gm/dL Hct (39.0-53.0) % MCV (80.0-100.0) fL RDW (11.5-15.5) % ABG pH (7.35-7.45) ABG HCO3 (21-25) mmol/L ABG Total CO2 (19-24) mmol/L ABG O2 Saturation (94-97) % BUN (9-20) mg/dL Glucose (74-99) mg/dL POC Glucose (mg/dL) 129 H 153 H 122 H (75-99) mg/dL Calcium (8.4-10.2) mg/dL AST (17-59) U/L ALT (4-49) U/L Alkaline Phosphatase (38-126) U/L Total Protein (6.3-8.2) g/dL Albumin (3.5-5.0) g/dL 11/19/19 11/19/19 11/19/19 Range/Units 04:00 04:57 04:57 WBC 13.3 H (3.8-10.6) k/uL RBC 2.29 L (4.30-5.90) m/uL Hgb 7.4 L (13.0-17.5) gm/dL Hct 23.0 L (39.0-53.0) % MCV 100.3 H (80.0-100.0) fL RDW 16.1 H (11.5-15.5) % ABG pH (7.35-7.45) ABG HCO3 (21-25) mmol/L ABG Total CO2 (19-24) mmol/L ABG O2 Saturation (94-97) % BUN 38 H (9-20) mg/dL Glucose 67 L (74-99) mg/dL POC Glucose (mg/dL) 100 H (75-99) mg/dL Calcium 8.1 L (8.4-10.2) mg/dL AST 81 H (17-59) U/L ALT 382 H (4-49) U/L Alkaline Phosphatase 170 H (38-126) U/L Total Protein 5.4 L (6.3-8.2) g/dL Albumin 2.9 L (3.5-5.0) g/dL 11/19/19 Range/Units 06:47 WBC (3.8-10.6) k/uL RBC (4.30-5.90) m/uL Hgb (13.0-17.5) gm/dL Hct (39.0-53.0) % MCV (80.0-100.0) fL RDW (11.5-15.5) % ABG pH (7.35-7.45) ABG HCO3 (21-25) mmol/L ABG Total CO2 (19-24) mmol/L ABG O2 Saturation (94-97) % BUN (9-20) mg/dL Glucose (74-99) mg/dL POC Glucose (mg/dL) 102 H (75-99) mg/dL Calcium (8.4-10.2) mg/dL AST (17-59) U/L ALT (4-49) U/L Alkaline Phosphatase (38-126) U/L Total Protein (6.3-8.2) g/dL Albumin (3.5-5.0) g/dL Microbiology - Last 24 Hours (Table) 11/12/19 14:40 Blood Culture - Final Blood No Growth after 144 hours 11/12/19 14:40 Blood Culture - Final Blood No Growth after 144 hours - Imaging and Cardiology Chest x-ray: image reviewed Assessment and Plan Assessment: 1. Symptomatic multivessel coronary artery disease, recent non-STEMI, status post 5 vessel CABG 2. Leukocytosis, maybe multifactoral, positive UTI. Blood, sputum, urine cultures negative to date although drawn after antibiotics started. 3. Previous stent placement to the proximal circumflex and ostial OM1 4. History of hypertension 5. History of hyperlipidemia 6. Chronic ongoing tobacco dependence 7. Mild COPD, preoperative FEV1 60% of predicted value 8. Right internal carotid artery stenosis 50-69%. 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 9. 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 Poorly controlled diabetes mellitus type 2 with hyperglycemia, admission hemoglobin A1c 9.1% 11. History of bladder cancer status post radiation, chemotherapy treatment and bladder surgery 12. Occasional marijuana use 13. Medication noncompliance 14. Family history of early onset coronary artery disease 15. Postoperative acute blood loss anemia, expected 16. Postoperative encephalopathy, unexpected 17. Mild ISAAC 18. Afib with RVR, status post left atrial appendage ligation, currently Sinus Rhythm to sinus bradycardia 19. Hematuria, resolved, likely from patient pulling at newman catheter 20. Postoperative acute hypoxic respiratory failure requiring reintubation, secondary to metabolic acidosis and hypotension 21. Elevated transaminase levels, shock liver, secondary to hypotension, trending down 22. New stage II pressure ulcer, coccyx Plan: 1. Continue aspirin, Plavix, statin, beta gaurav. Will increase beta gaurav therapy as tolerated 2. Continue amiodorone for atrial fibrillation prophylaxis. No anticoagulation until all lines and tubes have been removed, especially epicardial pacemaker wires 3. Continue to hold Cardizem and Cozaar due to his bradycardia and hypotension. Will reassess and add as tolerated. 4. Keep Newman catheter in place for accurate I&O. Newman catheter was changed on 11/14/2019. 5. Continue slivadine cream application to pressure ulcer. Turn minimum every 2 hours. 6. Mechanical ventilator management per pulmonary critical care medicine. Pa ezio should have spontaneous breathing trials at least daily to exercise the lungs even if extubation is not planned 7. Continue Precedex for sedation 8. Will monitor daily labs and chest x-rays. Elective replacement per protocol. No blood transfusion at this time. 9. Continue Tylenol for pain management, hold narcotics and toradol. 10. GI/DVT prophylaxis. 11. Insulin management per primary care service. 12. Continue 40 mg Lasix q12 13. Keep Dobbhoff tube in place for tube feeding. Currently infusing at goal rate of 54 mL per hour. 14. Continue to avoid nephrotoxic agents. 15. Keep atrial and ventricular epicardial pacemaker wires in place and connected to a backup pacemaker generator with a AAI of 50. 16. Reorient as necessary. Continue to assess mental status 17. Continue antibiotics per infectious disease 18. More recommendations to follow based on patient's clinical course. Time with Patient: Greater than 30
--- NOTE | 2019-11-19 07:45 | XR ---
EXAMINATION TYPE: XR chest 1V portable DATE OF EXAM: 11/19/2019 COMPARISON: 11/18/2019 HISTORY: Respiratory failure FINDINGS: There are bilateral pleural effusions with cardiomegaly and bibasilar infiltrate. There is a diffuse interstitial pattern. ET and NG tube noted and there is postoperative change and right-sided central line. All stable. Stable diffuse pleural-parenchymal changes correlate for pulmonary edema, ARDS or diffuse pneumonia Dobbhoff tube stable. IMPRESSION: 1.
[2019-11-19 08:07] LABS: ABG Base Excess 4.1 mmol/L; ABG HCO3 27 mmol/L (21-25); ABG Oxygen Saturation 97.9 % (94-97); ABG PCO2 35 mmHg (35-45); ABG PO2 88 mmHg (83-108); ABG TCO2 28 mmol/L (19-24)
[2019-11-19 08:08] LABS: Allen Test Performed? NO
[2019-11-19] MEDS: IPRATROPIUM-ALBUTEROL 3 ML NEB INHALATION SCH ×4 (08:14→19:23)
[2019-11-19] MEDS: AMIODARONE 200 MG TAB PO SCH ×2 (08:15→21:24)
[2019-11-19] MEDS: CLOPIDOGREL 75 MG TAB PO SCH (08:15)
[2019-11-19] MEDS: ATORVASTATIN 40 MG TAB PO SCH (08:15)
[2019-11-19] MEDS: NYSTATIN 100,000 UNIT/ML SUSP 500,000 UNIT/5 ML CUP PO SCH ×4 (08:16→22:52)
[2019-11-19] MEDS: METOPROLOL TARTRATE 12.5 MG TAB PO SCH ×3 (08:16→21:24)
[2019-11-19] MEDS: HEPARIN SODIUM,PORCINE 5,000 UNIT/ML 1 ML VIAL SQ SCH ×2 (08:16→15:43)
[2019-11-19] MEDS: ASPIRIN 325 MG TAB PO SCH (08:17)
[2019-11-19] MEDS: PIPERACILLIN-TAZOBACTAM 3.375 GM in SODIUM CHLORIDE 0.9% 100 ML IVPB SCH ×2 (08:17→15:44)
[2019-11-19] MEDS: CHLORHEXIDINE GLUCONATE 15 ML CUP MUCOUS MEM SCH ×2 (08:17→21:25)
[2019-11-19] MEDS: FUROSEMIDE 10 MG/ML 4 ML VIAL IV SCH ×2 (08:19→21:25)
[2019-11-19] MEDS ORDERED: DEXMEDETOMIDINE/0.9% NACL(PMX) 400 MCG in EMPTY BAG 1 BAG IV SCH (10:30)
[2019-11-19 10:39] LABS: ABG Base Excess 4.7 mmol/L; ABG HCO3 29 mmol/L (21-25); ABG Oxygen Saturation 97.7 % (94-97); ABG PCO2 42 mmHg (35-45); ABG PH 7.44 (7.35-7.45); ABG PO2 94 mmHg (83-108); ABG TCO2 30 mmol/L (19-24)
[2019-11-19 10:40] LABS: Allen Test Performed? no
[2019-11-19 10:50] LABS: Lymphocytes # (M) 1.33 k/uL (1.0-4.8); Monocytes # (M) 1.06 k/uL (0-1.0); Myelocytes # (M) 0.13 k/uL (0); Myelocytes % 1 %; Neutrophils # (M) 10.11 k/uL (1.3-7.7); Neutrophils % (M) 76 %; Nucleated Red Blood Cells 0 /100 WBC (0-0); Total Cells Counted 200
[2019-11-19 10:52] LABS: Polychromasia Present
[2019-11-19 10:53] LABS: Poikilocytosis (M) Present
[2019-11-19 11:52] LABS: Glucose,Whole Blood 154 mg/dL (75-99)
--- NOTE | 2019-11-19 11:54 | P.PN ---
Progress Note - Text Progress Note Date: 11/19/19 The patient is awake. He appears to be slightly confused. He is receiving tube feeds. Dobbhoff. On exam vital signs are stable. Abdomen soft. There is no significant tenderness. White count was 13,000. No surgical intervention is planned. We will sign off.
--- NOTE | 2019-11-19 13:41 | P.PN ---
Subjective Progress Note Date: 11/19/19 Principal diagnosis: Coronary artery disease and non-ST elevation myocardial infarction, status post 5 vessel bypass surgery postoperative day #11 This is a 64-year-old male patient with coronary artery disease, noncompliant to medication. The patient came in with subendocardial infarction and cardiac catheterization showed diffuse coronary artery disease with critical stenosis. The patient underwent coronary artery bypass today. The patient underwent bypass 5 with GR to LAD, radial artery graft to acute marginal, saphenous finger after 2 posterior lateral and sick ration saphenous vein to first and second diagonal performed on cardiac pulmonary bypass with beating heart. On 11/13/2019, the patient is being seen for a follow-up. The patient had significant events on the second day post extubation and all of these events were noted and I was able to participate in his care as the patient's condition got worse yesterday afternoon. The patient became progressively more tachypneic and his blood gases was repeated and it was noted that the patient had signif icant amount of metabolic acidosis with respiratory compensation. Ultimately, the patient became progressively more fatigued and went into respiratory failure. He became briefly hypoxic and had a bout of bradycardia and his blood pressure also subsequently dropped. At that point, the patient was started immediately on fluid resuscitation. Lasix was already discontinued. During the process, the patient received a total of 500 mL of albumin 5% 3, received bicarb infusion on multiple occasions total of 4 episodes of sodium bicarb was given for severe metabolic acidosis. Note that his lactic acid level was as high as 11. Following that, the patient was placed on a sodium bicarb infusion with 150 mEq of sodium bicarbonate there was running at 75 mL an hour. Lactic acid level came from 11.8 down to 1.5. He had to be intubated and placed on a mechanical ventilator. He was also requiring pressors with was running as high as 3 g per minute and currently is off the pressors. This morning, the patient is on a mechanical ventilator on assist control mode at the rate of 24 with a t idal volume of 450 and an FiO2 of 50% with a PEEP of 5. Urine output is order of 20-40 mL an hour. The blood gases from today showed a pH of 7.53 with a pCO2 of 31 and pO2 of 145. The chest x-ray shows some mild pulmonary vascular congestion and some subpulmonic pleural effusions bilaterally. The patient is well sedated with propofol and the patient is calm and comfortable. He is afebrile. As for the blood work, the white cell causative 18.7. The creatinine came up to 1.6 and currently is down to 1.4. The serum bicarbs at 28. Note that the chest tubes are already out for now. The patient has a Junior catheter in place and urine output has been approximately 240 mL's over the past 8 hours. The atrial and ventricular epicardial pacemaker wires remain in place. The bedside pacemaker generator is on a AAI mode with a rate of 70 and the underlying rhythm is sinus bradycardia. The patient has no other arrhythmias noted. On 11/14/2019, the patient is being seen for a follow-up in the intensive care unit. The patient remains sedated and the patient is calm comfortable on propo fol at 40 g per KG per minute. Noted the patient remains on a mechanical ventilator. The ventilator today is set at a tidal volume of 450 with a rate of 16 FiO2 of 40% with a PEEP of 5. Blood gas show a pH of 7.48 with a pCO2 of 32 and pO2 of 114. Chest x-ray showing bilateral pleural effusion which is gotten slightly worse compared to yesterday. The patient remains having a lower CVP of 6. Cardiac rhythm is sinus. The patient is receiving vital high protein at the rate of 30 mL's an hour. The patient is also on D5 half-normal saline running at 30 mL an hour. White cell count is elevated. Nevertheless the lactic acidosis improved. The patient was receiving IV Zosyn and dose of vancomycin was also given by cardiothoracic surgery. Creatinine is still elevated at 1.46. Hemoglobin stable at 7.7. The patient is arousable. The patient was taken off sedation and took approximately 4 hours for him to wake up and follows some simple commands. Nevertheless, he became tachypneic and his progress and we had to abort the sedation holiday. He is producing adequate amount of urine output. He was given a dose of Lasix earlier by the surgical team and the patient was thought to be in some fluid overload special with development of bilateral pleural effusions. No other significant events otherwise for now. Patient was reevaluated today on 11/15/19, remains in the ICU, intubated and mechanically ventilated. His ventilator settings are assist control rate of 16 tidal volume is 450 FiO2 is 40% PEEP is 5. ABG showed a pO2 of 80 pCO2 of 32 pH of 7.47. Patient is status post CABG 5, postoperative day #7. He remains on norepinephrine at 0.03 mcg/kg/m, propofol at 50 mcg/kg/m. Chest x-ray is clearly showing evidence of pulmonary edema, difficult to rule out underlying p neumonia, but this is felt to be less likely. Patient was given a sedation holiday today, and could not be tolerated, patient was extremely tachypneic and tachycardic off sedation. Patient has a Dobbhoff tube in place, and he is on enteral feeding. Feeding is at goal. Today after evaluating the patient, and recommended Lasix at 40 mg IV push every 12 hours, chest x-ray is clearly consistent with pulmonary edema. Electrolytes unremarkable, BUN is 35 creatinine is 1.27, improved compared to the last few days. Liver enzymes are abnormal, patient apparently had what seemed to be a shocked liver. Patient was reevaluated today on 11/16/19, remains in the ICU, intubated and mechanically ventilated. He is on assist control rate of 16 tidal volume is 450 FiO2 is 40% and PEEP is 5. ABG showed a pO2 of 94 pCO2 of 34 pH of 7.48. Chest x-ray continues to show evidence of pulmonary vascular congestion and small to moderate bilateral pleural effusions. However ultrasound of the chest failed to show significant pleural effusion that would warrant thoracentesis. And no markings were placed. Patient remains on diuretics, Lasix 40 mg IV push every 12 hours. I believe the chest x-ray showed slight improvement compared to yesterday. Patient fluid balance is -870 mL. Liver profile is improving. Patient remains on cefepime and vancomycin. Patient is also on enteral feeding. And he is on propofol at 50 mcg/kg/m. I plan today to at least give the patient a sedation holiday, assess mental status, and possibly assess weaning parameters although the patient is not ready for weaning, ABG remains marginal, and his chest x-ray is quite abnormal. On 11/17/2019 patient seen in follow-up in the intensive care unit, she is sedated, intubated, on mechanical ventilator, current vent settings are assist- control with a rate of 16, tidal and was 450, FiO2 is 40%, and PEEP of 5. This morning his blood gases reveal pO2 of 92, pCO2 34, pH is 7.47. Current IV drips include 0.9 normal saline at a rate of 5 ML per hour, and improving and is at 60 mics per kilo per minute, tube feedings are with vital high-protein at a rate of 54, with a goal of 54 with standard water flushes with 30 mL of water every 4 hours. Patient was given daily traction of sedation yesterday, he awoke, and reportedly follow commands, but quickly became very tachypneic and hypertensive and had to be placed back on mechanical ventilator. His chest x-ray shows stable findings, persistent central vascular congestion and bibasilar opacities. Small to moderate-sized bilateral pleural effusions, appear to be stable. Patient remains on IV Lasix at 40 mg every 12 hours, and he is very slightly negative, only 6 mL, however he did produced over 3 L in urine output in the last 24 hours. He is off the vasopressor support, his weight is stable, he does have some generalized edema involving his upper and lower extremities. Remains on empiric antibiotics in the form of cefepime and vancomycin. He is afebrile, his blood urine and sputum cultures have shown no growth thus far. Today's labs have been reviewed. His white blood cell is stable at 15, hemoglobin is 7.7, sodium is 136, the rest of electrolytes were within normal limits, B1 is 33, and creatinine is 1.04, his liver enzymes are coming down, AST is down to 130, ALT is 692, alk phos is fairly stable at 195, his pro-calcitonin level was elevated and 0.99, suggesting presence of bacterial infection. Patient has been afebrile, abdomen is soft, nontender, patient is tolerating tube feedings. His hematuria has cleared up. On 11/18/2019 patient seen in follow-up in the intensive care unit. Patient is still intubated, his sedation has been on hold since 7:00 this morning, patient is awake, he is following basic commands, squeezing with his left hand, however his right hand is flaccid, and patient is not able to squeeze with the right h and. His current vent settings are assist-control with a rate of 16, tidal volume is 450, FiO2 is 40%, and PEEP of 5. This is blood gases showed pO2 106, pCO2 35, and pH of 7.49. Currently on no drips other than 0.9 normal saline at a rate of KVO. Patient has been tolerating tube feedings. Yesterday we repeated his CT of the brain which showed no evidence of acute hemorrhage, areas of patchy low attenuation in the left parietal white matter previously noted on previous brain scan this could be on the basis of subacute ischemia. MRI of the brain was recommended, neurology consultation was requested and patient is suspected to have probable subacute stroke involving multiple patchy areas in the left MCA vascular territory consideration of cardioembolic source. Patient did have transient atrial fibrillation. Follow-up MRI and MRA of the brain will be done once the patient is extubated and is able to travel down to the MRI department. Today's chest x-ray shows diffuse bilateral pleural parenchymal changes, no pneumothorax. Consider pulmonary edema, or underlying pneumonia. So far blood and urine and sputum cultures remain negative. Patient is afebrile, hemodynamically he stable, empiric antibiotic coverage is with Zosyn, vancomycin has been discontinued, ID service is following. Patient is on IV Lasix at 40 mg every 12 hours. He has produced 2.7 L and urine output over last 24 hours, he is in -280 mL fluid balance. He seems to get slightly agitated at times, becomes hypertensive, today she is following commands, we will try to keep him off sedation, to fully assess his mentation and neurological status, we will repeat LFTs, and ammonia level. Patient was reevaluated today on 11/19/19, remains in the intensive care unit, off sedation, patient is following simple instructions, he had a good gag reflex according to rest today therapy when the patient was suctioned. Patient remains on the same ventilator settings as yesterday, FiO2 is 40% PEEP is 5, volume is 450 rate of 16. ABG showed a pO2 of 88 pCO2 of 35 pH of 7.50. Chest x-ray is showing improvement in his by basilar opacities. And his ABG is relatively acceptable. Hence I went ahead and recommended that the patient goes on pressure support of 8 and CPAP, and an hour later his repeat ABG on CPAP showed a pO2 of 94 pCO2 of 42 pH of 7.44 hence proceeded to extubating the patient. In the meantime I have recommended that we continue present antibiotics and bronchodilators as well as diuretics. Objective - Vital Signs Vital signs: Vital Signs Temp 98 F 11/19/19 12:00 Pulse 72 11/19/19 13:00 Resp 16 11/19/19 13:00 BP 152/61 11/19/19 10:00 Pulse Ox 94 L 11/19/19 13:00 Intake & Output 11/18/19 11/19/19 11/19/19 18:59 06:59 18:59 Intake Total 1030 413.900 569 Output Total 2040 1095 670 Balance -1010 -681.100 -101 Weight 91 kg 91 kg Intake: IV 232 232 77 .9NS @ 5ml/hr 60 60 35 Normal Saline Pressure 72 72 42 Bag Piperacillin-Tazobactam 3 100 100 .375 gm In Sodium Chloride 0.9% 100 ml @ 25 mls/hr IVPB Q8HR [facility] Rx# :[id number] Intake, IV Titration 73.900 Amount Dexmedetomidine/0.9% NaCl 73.900 (Pmx) 400 mcg In Empty Bag 1 bag @ Titrate IV . Q0M [facility] Rx#:[id number] Tube Feeding 648 108 432 Other 150 60 Output: Urine 2039 1095 670 Other: Voiding Method Indwelling Catheter Indwelling Catheter Indwelling Catheter ABP, PAP, CO, CI - Last Documented Arterial Blood Pressure 106/49 Pulmonary Artery Pressure 30/17 Cardiac Output 4.5 Cardiac Index 2.3 - Exam Physical Exam: Revealed a 64-year-old white male intubated, mechanically ventilated, sedated, in no distress. Head: Atraumatic, normocephalic, endotracheal tube and Dobbhoff tube are intact. HEENT:[Neck is supple.] [No neck masses.] [No thyromegaly.] [No JVD.] Moist mucous membranes, PERRLA, EOMI, no icterus. Right IJ triple-lumen catheter is noted. Chest: Symmetrical chest expansion, crackles at the bases no rhonchi and no wheezes.] Cardiac Exam: [Normal S1 and S2, no S3 gallop, no murmur.] Abdomen: [Soft, nontender, no megaly, no rebound, no guarding, normal bowel sounds.] Extremities: [No clubbing, no edema, no cyanosis.] Neurological Exam: Could not be assessed, patient is sedated, on propofol drip. Psychiatric: Could not be assessed. Skin: No rashes. Lymphatics: No lymphadenopathy. - Labs CBC & Chem 7: 11/19/19 04:57 11/19/19 04:57 Labs: Abnormal Lab Results - Last 24 Hours (Table) 11/18/19 11/18/19 11/19/19 Range/Units 15:59 19:53 00:52 WBC (3.8-10.6) k/uL RBC (4.30-5.90) m/uL Hgb (13.0-17.5) gm/dL Hct (39.0-53.0) % MCV (80.0-100.0) fL RDW (11.5-15.5) % Neutrophils # (Manual) (1.3-7.7) k/uL Monocytes # (Manual) (0-1.0) k/uL Eosinophils # (Manual) (0-0.7) k/uL Myelocytes # (Manual) (0) k/uL ABG pH (7.35-7.45) ABG HCO3 (21-25) mmol/L ABG Total CO2 (19-24) mmol/L ABG O2 Saturation (94-97) % BUN (9-20) mg/dL Glucose (74-99) mg/dL POC Glucose (mg/dL) 129 H 153 H 122 H (75-99) mg/dL Calcium (8.4-10.2) mg/dL AST (17-59) U/L ALT (4-49) U/L Alkaline Phosphatase (38-126) U/L Total Protein (6.3-8.2) g/dL Albumin (3.5-5.0) g/dL 11/19/19 11/19/19 11/19/19 Range/Units 04:00 04:57 04:57 WBC 13.3 H (3.8-10.6) k/uL RBC 2.29 L (4.30-5.90) m/uL Hgb 7.4 L (13.0-17.5) gm/dL Hct 23.0 L (39.0-53.0) % MCV 100.3 H (80.0-100.0) fL RDW 16.1 H (11.5-15.5) % Neutrophils # (Manual) 10.11 H (1.3-7.7) k/uL Monocytes # (Manual) 1.06 H (0-1.0) k/uL Eosinophils # (Manual) 0.80 H (0-0.7) k/uL Myelocytes # (Manual) 0.13 H (0) k/uL ABG pH (7.35-7.45) ABG HCO3 (21-25) mmol/L ABG Total CO2 (19-24) mmol/L ABG O2 Saturation (94-97) % BUN 38 H (9-20) mg/dL Glucose 67 L (74-99) mg/dL POC Glucose (mg/dL) 100 H (75-99) mg/dL Calcium 8.1 L (8.4-10.2) mg/dL AST 81 H (17-59) U/L ALT 382 H (4-49) U/L Alkaline Phosphatase 170 H (38-126) U/L Total Protein 5.4 L (6.3-8.2) g/dL Albumin 2.9 L (3.5-5.0) g/dL 11/19/19 11/19/19 11/19/19 Range/Units 06:47 08:03 10:32 WBC (3.8-10.6) k/uL RBC (4.30-5.90) m/uL Hgb (13.0-17.5) gm/dL Hct (39.0-53.0) % MCV (80.0-100.0) fL RDW (11.5-15.5) % Neutrophils # (Manual) (1.3-7.7) k/uL Monocytes # (Manual) (0-1.0) k/uL Eosinophils # (Manual) (0-0.7) k/uL Myelocytes # (Manual) (0) k/uL ABG pH 7.50 H (7.35-7.45) ABG HCO3 27 H 29 H (21-25) mmol/L ABG Total CO2 28 H 30 H (19-24) mmol/L ABG O2 Saturation 97.9 H 97.7 H (94-97) % BUN (9-20) mg/dL Glucose (74-99) mg/dL POC Glucose (mg/dL) 102 H (75-99) mg/dL Calcium (8.4-10.2) mg/dL AST (17-59) U/L ALT (4-49) U/L Alkaline Phosphatase (38-126) U/L Total Protein (6.3-8.2) g/dL Albumin (3.5-5.0) g/dL 11/19/19 Range/Units 11:51 WBC (3.8-10.6) k/uL RBC (4.30-5.90) m/uL Hgb (13.0-17.5) gm/dL Hct (39.0-53.0) % MCV (80.0-100.0) fL RDW (11.5-15.5) % Neutrophils # (Manual) (1.3-7.7) k/uL Monocytes # (Manual) (0-1.0) k/uL Eosinophils # (Manual) (0-0.7) k/uL Myelocytes # (Manual) (0) k/uL ABG pH (7.35-7.45) ABG HCO3 (21-25) mmol/L ABG Total CO2 (19-24) mmol/L ABG O2 Saturation (94-97) % BUN (9-20) mg/dL Glucose (74-99) mg/dL POC Glucose (mg/dL) 154 H (75-99) mg/dL Calcium (8.4-10.2) mg/dL AST (17-59) U/L ALT (4-49) U/L Alkaline Phosphatase (38-126) U/L Total Protein (6.3-8.2) g/dL Albumin (3.5-5.0) g/dL Microbiology - Last 24 Hours (Table) 11/12/19 14:40 Blood Culture - Final Blood No Growth after 144 hours 11/12/19 14:40 Blood Culture - Final Blood No Growth after 144 hours Assessment and Plan Assessment: Impression: Coronary artery disease and non-ST elevation myocardial infarction status post CABG 5, postoperative day #11 Postoperative respiratory failure requiring reintubation mostly because of progressive lactic acidosis and metabolic acidosis with hypotension and evidence of pulmonary edema. Not expected. Exact etiology is not clear, antibiotics were given empirically. Cultures have all been negative. And they remain ne gative as of today. Altered mental status most likely secondary to metabolic encephalopathy CT of th e brain showed patchy periventricular and deep white matter changes, subacute ischemia is not entirely ruled out. New onset atrial fibrillation and RVR. Expected. Type 2 diabetes. Peripheral vessel occlusive disease with prior peripheral stent placement. Moderate severe COPD FEV1 of 60% at baseline. History of marijuana smoking. Acute kidney injury and acute shock liver secondary to hypotension, improving slowly. History of bladder cancer and previous radiation/chemotherapy with subsequent surgery. Recommendation: We'll give the patient a weaning trial with pressure support of 8 and CPAP, and if tolerated will likely proceed to extubating the patient. Continue empiric antibiotics/Zosyn. Continue Lasix 40 mg IV push every 12 hours. Continue aspirin and Plavix and statin. Continue/insulin drip. Hold all narcotics and sedatives. We'll continue to follow. Critical care time is 32 minutes Time with Patient: Greater than 30
[2019-11-19 15:38] LABS: Glucose,Whole Blood 152 mg/dL (75-99)
--- NOTE | 2019-11-19 16:00 | P.PN ---
Subjective Progress Note Date: 11/19/19 Principal diagnosis: Patient is a [id number] male was recently discharged from the hospital came back in with the chest pain pressure-like sensation lasted for a few hours nonexertional did have elevated troponins. Patient had a triple-vessel disease patient is scheduled to undergo coronary artery bypass grafting on Friday went home started smoking again started having chest pain. Chest x-ray was read as pulmonary edema. It is not elevated patient clinically doesn't have any JVD or crackles or wheezing. 11/09/2019 Patient is status post CABG he was extubated the last night. Patient is presently on norepinephrine, milrinone, IV insulin. Patient still has a [place]- Juni in place most of the management is being done by cardiac thoracic surgery patient was bit confused earlier today doing well now. 11/10/2019 Patient is still confused as per the family his confusion is better patient is a low-grade fever probably because of atelectasis a lot and blood cultures. Patient received Lasix for pulmonary edema, patient's mediastinal chest use with remote patient still has left pleural chest tubes Review of systems: Unable to obtain as patient is tired and sleepy All inpatient medications were reviewed and appropriate changes in these medications as dictated in the interval history and assessment and plan. 11/11/2019 Patient is seen and evaluated and follow-up currently remains in the ICU and is being closely monitored. Since hemoglobin was found to be 6.7 this morning and is currently receiving 1 unit of PRBCs. Potassium is 4.4, creatinine is 1.09, magnesium is 2.3. Patient went into atrial fibrillation with RVR and is being maintained on amiodarone drip and will transition to oral medications. Patient continues to have chest tubes along with indwelling Junior catheter which shows some hematuria as patient pulled it out. Patient has been afebrile with intermittent low-grade temps 99.7F and white count today is 14.1. Patient remains on an insulin drip and will continue at this time. Will continue to follow along closely with cardio thoracic surgery. 11/12/2019 Patient is seen and evaluated and follow-up continues to be closely monitored in the ICU. Patient is currently restless and seems to be having some shortness of breath. Patient is placed on nasal cannula although was mouth breathing and is currently on 5 L of oxygen. Patient was on insulin drip which has been discontinued and patient will be continued on sliding scale as patient now has a diet ordered although isn't eating very much. Patient continues to be confused and not following commands. Patient had a chest x-ray today status post chest tube removal showing no evidence of residual pneumothorax. Patient underwent brain CT yesterday showing patchy periventricular and deep white matter changes, left greater than right that have progressed since 01/19/2019 with demyelinating disease or other infectious inflammatory etiologies are possible, and no acute intracranial hemorrhage or midline shift noted. 11/13/2019 Patient became to Make and found to have metabolic acidosis with respiratory compensation progressively got fatigued event into respiratory failure subsequently intubated patient received the bicarbonate infusion for severe metabolic acidosis and patient had lactic acidosis with the lactic acid going up to 11 which came down to 1.5 patient is also started on pressor support with Levophed on mechanical ventilator with tidal volume of 450 set up respiratory of 24 FiO2 of 50% PEEP of 5 urine output is fairly. Chest x-ray showing mild pulmonary vascular congestion with the pleural effusions bilaterally 11/14/2019 Patient the did not tolerate weaning trial. Patient remains on ventilatory support. Patient is a one dose of vancomycin patient is presently on IV Zosyn for fevers although etiology of fevers is not clear at this time. Patient blood sugars are high receiving 3 units every 4 hours as per sliding scale patient wi ll be started on long-acting insulin 15 units and continue with sliding scale Review of systems: Unable to obtain as patient is tired and sleepy All inpatient medications were reviewed and appropriate changes in these medications as dictated in the interval history and assessment and plan. 11/15/2019 Patient is seen and evaluated and follow-up and currently remains in the ICU on mechanical ventilation and is being closely monitored. Patient continues to have a Dobbhoff for nutrition and remains on long-acting Levemir 15 units at bed along with sliding scale and will continue at this time. Patient is currently maintained on IV vancomycin along with Zosyn and infectious disease has been consulted. Patient is afebrile for 24 hours. White blood count is trending down and is currently 15.3 today. 11/16/2019 Patient is seen and evaluated in follow-up continues to be on a mechanical ve ntilator and intubated with sedation and is being closely monitored in the ICU. Patient continues to have elevated blood sugars and have increased the long- acting Levemir to 20 units and will continue with sliding scale and added 5 units every 4 hours For tighter glycemic control. Patient remains on tube feedings at goal via a Dobbhoff system. Multiple medical consultations following. Patient is maintained on IV vancomycin and cefepime and will continue at this time. White blood count slowly trending down at 15.2 today. Chest x-ray showing some pleural effusions and a chest ultrasound was performed showing bilateral pleural effusions although small in size and were not marked. 11/17/2019 Patient is seen and evaluated in follow-up currently continued on a mechanical ventilator and intubated and continues to be closely monitored in the ICU. Sedation has been on hold and patient eyes are opening Although not following commands. patient underwent head CT showing no evidence of acute hemorrhage with areas of patchy low attenuation left parietal white matter as previously noted and are of indeterminate age and could possibly be on the basis of subacute ischemia with no significant interval change. Degenerative and suspect remote ischemic change also noted and correlate with MRI as clinically warranted. Neurology was consulted and pending at this time. Multiple medical consultations following. Patient is currently maintained on cefepime and vancomycin and will continue at this time. White blood count elevated at 15.0 With hemoglobin of 7.7. Current creatinine is 1.04. Patient remains afebrile. Will continue to monitor closely. 11/18/2019 Patient is seen and evaluated in follow-up today currently continues to be in the ICU being closely monitored. Remains intubated although have been holding propofol and patient appears to be following commands with the left extremity although right upper extremity is flaccid. Neurology evaluated the patient and recommended MRI and this will be done once patient is extubated and more stable. CT of the head findings are probable of a subacute stroke involving multiple patchy areas in the left MCA vascular territory with the possibility of a cardio embolic source. Patient did have transient atrial fibrillation. There is right ICA stenosis of 50-69% on the carotid Doppler. Patient's 2-D echo showed no obvious embolic source. Patient remains on aspirin and Plavix along with statin and will continue at this time. Attempts to use Precedex as patient is off propofol at this time. Multiple medical consultations following. Patient continues on IV antibiotics in the form of cefepime and vancomycin has been discontinued. Infectious disease is following. Today's chest x-ray shows diffuse bilateral pleural parenchymal changes correlate for ards, pulmonary edema, or diffuse pneumonia and patient is maintained on IV Lasix and will continue at this time. White count is 14.7 today, hemoglobin is 7.3. Current creatinine is 1.05 with a BUNs of 33. Ammonia level less than 9. Will continue to monitor closely. Review of systems: Unable to obtain as patient is intubated and sedated 11/19/2019 Patient is seen and evaluated and currently remains in the ICU being closely monitored. Patient was just recently extubated and tolerated well. Patient remains off sedation and continues to be on a small dose of Precedex. Patient also continues with a Dobbhoff tube feedings system and will continue at this ti me. Patient is awake and responding appropriately to simple commands. Right and left upper extremity post partum nurse strength noted. Right post partum nurse strength 3-5, left 4- 5. Patient is not talking as of yet although did mumble when asked a question and knodded head yes appropriately. Also medical consultations following. Patient is maintained on IV antibiotics and will continue at this time. White blood count slowly trending down and is currently 13.3. She remains on IV Lasix and current creatinine is 1.15 with a BUNs of 38. Sodium is 140. Patient is maintained on long-acting along with every 4 hours coverage and sliding scale and will continue at this time. Liver function slowly trending down. Patient is currently maintained on 4 L via nasal cannula. Review of systems: Cardiovascular: No reports of chest pain Respiratory: No reports of shortness of breath GI: No reports of nausea or vomiting : No reports of dysuria or retention with indwelling Junior catheter present Active Medications Acetaminophen (Tylenol Tab) 1,000 mg PO Q6HR PRN PRN Reason: Fever and/ or Pain Last Admin: 11/19/19 00:56 Dose: 1,000 mg Documented by: Albuterol/Ipratropium (Duoneb 0.5 Mg-3 Mg/3 Ml Soln) 3 ml INHALATION RT-Q2H PRN PRN Reason: Shortness Of Breath Or Wheezing Albuterol/Ipratropium (Duoneb 0.5 Mg-3 Mg/3 Ml Soln) 3 ml INHALATION RT-QID [facility] Last Admin: 11/19/19 15:28 Dose: 3 ml Documented by: Amiodarone HCl (Cordarone) 200 mg PO BID [facility] Last Admin: 11/19/19 08:15 Dose: 200 mg Documented by: Ascorbic Acid (Vitamin C) 500 mg PO BID-W/MEALS [facility] Last Admin: 11/19/19 15:43 Dose: 500 mg Documented by: Aspirin (Aspirin) 325 mg PO DAILY [facility] Last Admin: 11/19/19 08:17 Dose: 325 mg Documented by: Atorvastatin Calcium (Lipitor) 40 mg PO DAILY [facility] Last Admin: 11/19/19 08:15 Dose: 40 mg Documented by: Benzocaine/Menthol (Cepacol Lozenge) 1 each MUCOUS MEM Q2H PRN PRN Reason: Sore Throat Bisacodyl (Dulcolax) 10 mg RECTAL DAILY PRN PRN Reason: Constipation Chlorhexidine Gluconate (Peridex) 15 ml MUCOUS MEM BID [facility] Last Admin: 11/19/19 08:17 Dose: 15 ml Documented by: Clopidogrel Bisulfate (Plavix) 75 mg PO DAILY [facility] Last Admin: 11/19/19 08:15 Dose: 75 mg Documented by: Ferrous Sulfate (Feosol) 300 mg PO BID-W/MEALS [facility] Last Admin: 11/19/19 06:36 Dose: 300 mg Documented by: Furosemide (Lasix) 40 mg IV Q12HR [facility] Last Admin: 11/19/19 08:19 Dose: 40 mg Documented by: Heparin Sodium (Porcine) (Heparin) 5,000 unit SQ Q8HR [facility] Last Admin: 11/19/19 15:43 Dose: 5,000 unit Documented by: Amiodarone HCl 150 mg/ (Dextrose/Water) 103 mls @ 618 mls/hr IV .Q10M PRN; Protocol PRN Reason: A.FIB/FLUTTER Last Admin: 11/18/19 11:15 Dose: 618 mls/hr Documented by: Piperacillin Sod/Tazobactam (Sod 3.375 gm/ Sodium Chloride) 100 mls @ 25 mls/hr IVPB Q8HR [facility] Last Admin: 11/19/19 15:44 Dose: 25 mls/hr Documented by: Insulin Aspart (Novolog) 0 unit SQ Q4HR [facility]; Protocol Last Admin: 11/19/19 15:44 Dose: 1 unit Documented by: Insulin Aspart (Novolog) 5 unit SQ Q4HR [facility] Last Admin: 11/19/19 15:44 Dose: 5 unit Documented by: Insulin Detemir (Levemir) 20 unit SQ HS [facility] Last Admin: 11/18/19 20:15 Dose: 20 unit Documented by: Magnesium Hydroxide (Milk Of Magnesia) 2,400 mg PO BID PRN PRN Reason: Constipation Metoprolol Tartrate (Lopressor) 12.5 mg PO TID [facility] Last Admin: 11/19/19 15:43 Dose: 12.5 mg Documented by: Miscellaneous Information (Magnesium Per Protocol) 1 each MISCELLANE DAILY PRN; Protocol PRN Reason: Per Protocol Miscellaneous Information (Potassium Per Protocol) 1 each MISCELLANE DAILY PRN; Protocol PRN Reason: Per Protocol Miscellaneous Information (Phosphorus Per Protocol) 1 each MISCELLANE DAILY PRN; Protocol PRN Reason: Per Protocol Nystatin (Mycostatin Oral Susp) 500,000 unit PO QID [facility] Last Admin: 11/19/19 12:02 Dose: Not Given Documented by: Ondansetron HCl (Zofran) 4 mg IVP Q6HR PRN PRN Reason: Nausea And Vomiting Pantoprazole Sodium (Protonix) 40 mg PO AC-BRKFST [facility] Last Admin: 11/19/19 06:36 Dose: 40 mg Documented by: Senna/Docusate Sodium (Senokot-S) 2 each PO [facility] Last Admin: 11/18/19 21:31 Dose: Not Given Documented by: Silver Sulfadiazine (Silvadene Cream) 1 applic TOPICAL BID [facility] Last Admin: 11/19/19 08:17 Dose: 1 applic Documented by: Sodium Chloride (Saline Flush) 10 ml IV BID [facility] Last Admin: 11/19/19 08:18 Dose: 10 ml Documented by: Objective - Vital Signs Vital signs: Vital Signs Temp 98 F 11/19/19 12:00 Pulse 85 11/19/19 15:38 Resp 14 11/19/19 15:00 BP 152/61 11/19/19 15:00 Pulse Ox 97 11/19/19 15:00 Intake & Output 11/18/19 11/19/19 11/19/19 18:59 06:59 18:59 Intake Total 1030 413.900 693 Output Total 2040 1095 880 Balance -1010 -681.100 -187 Weight 91 kg 91 kg Intake: IV 232 232 93 .9NS @ 5ml/hr 60 60 45 Normal Saline Pressure 72 72 48 Bag Piperacillin-Tazobactam 3 100 100 .375 gm In Sodium Chloride 0.9% 100 ml @ 25 mls/hr IVPB Q8HR [facility] Rx# :[id number] Intake, IV Titration 73.900 Amount Dexmedetomidine/0.9% NaCl 73.900 (Pmx) 400 mcg In Empty Bag 1 bag @ Titrate IV . Q0M [facility] Rx#:[id number] Tube Feeding 648 108 540 Other 150 60 Output: Urine 2040 1095 880 Other: Voiding Method Indwelling Catheter Indwelling Catheter Indwelling Catheter # Bowel Movements 1 ABP, PAP, CO, CI - Last Documented Arterial Blood Pressure 152/35 Pulmonary Artery Pressure 30/17 Cardiac Output 4.5 Cardiac Index 2.3 - Exam GENERAL: Patient is recently extubated and awake. Not talking but nodding head yes and no appropriately to questions and demonstrating commands appropriately. Temp is 98.0F, pulse is 64, respirations are 14, blood pressures 129/53, Oxygen saturation is 100% via 4 L nasal cannula HEENT: Pupils are round and equally reacting to light. EOMI. No scleral icterus. No conjunctival pallor. Normocephalic, atraumatic. No pharyngeal erythema. No thyromegaly. triple lumen IJ Noted on the right. Dobbhoff tube feeding system noted CARDIOVASCULAR: S1 and S2 present. No murmurs, rubs, or gallops. PULMONARY: Diminished breath sounds bilaterally with some scattered rhonchi. ABDOMEN: Soft, nontender, nondistended, normoactive bowel sounds. No palpable organomegaly. MUSCULOSKELETAL: No joint swelling or deformity. EXTREMITIES: No cyanosis, clubbing, or pedal edema. Mild upper extremity edema noted on the right NEUROLOGICAL: Awake, not talking but nodding appropriately to questions and commands, able to follow commands appropriately SKIN: No rashes. Stage II pressure ulcer on coccyx with dressing applied - Labs CBC & Chem 7: 11/19/19 04:57 11/19/19 04:57 Labs: Abnormal Lab Results - Last 24 Hours (Table) 11/18/19 11/18/19 11/19/19 Range/Units 15:59 19:53 00:52 WBC (3.8-10.6) k/uL RBC (4.30-5.90) m/uL Hgb (13.0-17.5) gm/dL Hct (39.0-53.0) % MCV (80.0-100.0) fL RDW (11.5-15.5) % Neutrophils # (Manual) (1.3-7.7) k/uL Monocytes # (Manual) (0-1.0) k/uL Eosinophils # (Manual) (0-0.7) k/uL Myelocytes # (Manual) (0) k/uL ABG pH (7.35-7.45) ABG HCO3 (21-25) mmol/L ABG Total CO2 (19-24) mmol/L ABG O2 Saturation (94-97) % BUN (9-20) mg/dL Glucose (74-99) mg/dL POC Glucose (mg/dL) 129 H 153 H 122 H (75-99) mg/dL Calcium (8.4-10.2) mg/dL AST (17-59) U/L ALT (4-49) U/L Alkaline Phosphatase (38-126) U/L Total Protein (6.3-8.2) g/dL Albumin (3.5-5.0) g/dL 11/19/19 11/19/19 11/19/19 Range/Units 04:00 04:57 04:57 WBC 13.3 H (3.8-10.6) k/uL RBC 2.29 L (4.30-5.90) m/uL Hgb 7.4 L (13.0-17.5) gm/dL Hct 23.0 L (39.0-53.0) % MCV 100.3 H (80.0-100.0) fL RDW 16.1 H (11.5-15.5) % Neutrophils # (Manual) 10.11 H (1.3-7.7) k/uL Monocytes # (Manual) 1.06 H (0-1.0) k/uL Eosinophils # (Manual) 0.80 H (0-0.7) k/uL Myelocytes # (Manual) 0.13 H (0) k/uL ABG pH (7.35-7.45) ABG HCO3 (21-25) mmol/L ABG Total CO2 (19-24) mmol/L ABG O2 Saturation (94-97) % BUN 38 H (9-20) mg/dL Glucose 67 L (74-99) mg/dL POC Glucose (mg/dL) 100 H (75-99) mg/dL Calcium 8.1 L (8.4-10.2) mg/dL AST 81 H (17-59) U/L ALT 382 H (4-49) U/L Alkaline Phosphatase 170 H (38-126) U/L Total Protein 5.4 L (6.3-8.2) g/dL Albumin 2.9 L (3.5-5.0) g/dL 11/19/19 11/19/19 11/19/19 Range/Units 06:47 08:03 10:32 WBC (3.8-10.6) k/uL RBC (4.30-5.90) m/uL Hgb (13.0-17.5) gm/dL Hct (39.0-53.0) % MCV (80.0-100.0) fL RDW (11.5-15.5) % Neutrophils # (Manual) (1.3-7.7) k/uL Monocytes # (Manual) (0-1.0) k/uL Eosinophils # (Manual) (0-0.7) k/uL Myelocytes # (Manual) (0) k/uL ABG pH 7.50 H (7.35-7.45) ABG HCO3 27 H 29 H (21-25) mmol/L ABG Total CO2 28 H 30 H (19-24) mmol/L ABG O2 Saturation 97.9 H 97.7 H (94-97) % BUN (9-20) mg/dL Glucose (74-99) mg/dL POC Glucose (mg/dL) 102 H (75-99) mg/dL Calcium (8.4-10.2) mg/dL AST (17-59) U/L ALT (4-49) U/L Alkaline Phosphatase (38-126) U/L Total Protein (6.3-8.2) g/dL Albumin (3.5-5.0) g/dL 11/19/19 11/19/19 Range/Units 11:51 15:36 WBC (3.8-10.6) k/uL RBC (4.30-5.90) m/uL Hgb (13.0-17.5) gm/dL Hct (39.0-53.0) % MCV (80.0-100.0) fL RDW (11.5-15.5) % Neutrophils # (Manual) (1.3-7.7) k/uL Monocytes # (Manual) (0-1.0) k/uL Eosinophils # (Manual) (0-0.7) k/uL Myelocytes # (Manual) (0) k/uL ABG pH (7.35-7.45) ABG HCO3 (21-25) mmol/L ABG Total CO2 (19-24) mmol/L ABG O2 Saturation (94-97) % BUN (9-20) mg/dL Glucose (74-99) mg/dL POC Glucose (mg/dL) 154 H 152 H (75-99) mg/dL Calcium (8.4-10.2) mg/dL AST (17-59) U/L ALT (4-49) U/L Alkaline Phosphatase (38-126) U/L Total Protein (6.3-8.2) g/dL Albumin (3.5-5.0) g/dL Microbiology - Last 24 Hours (Table) 11/12/19 14:40 Blood Culture - Final Blood No Growth after 144 hours 11/12/19 14:40 Blood Culture - Final Blood No Growth after 144 hours Assessment and Plan Assessment: -Acute non-ST elevation myocardial infarction: Coronary artery diseasepatient is status post five-vessel coronary artery bypass grafting -Possible subacute stroke involving multiple patchy areas in the left MCA as noted on brain CT -Stage II pressure ulcer on coccyx -Postoperative metabolic encephalopathy -Acute respiratory failure hypoxic, patient had metabolic acidosis probably due to decreased organ perfusion recently intubated -Status post recent extubation today -New onset paroxysmal atrial fibrillation with RVR, Presently rate controlled -Leukocytosis reactive because of patient's lactic Acidosis and overall clinical condition -Possible congestive heart failure chronic diastolic dysfunction with acute exacerbation -Low-grade fever probably because of atelectasis, improving -Hypertension -Hyperlipidemia -Type 2 diabetes mellitus -COPD without any acute exacerbation -Severe peripheral vascular disease -History of bladder cancer status post chemotherapy and radiation - nicotine use and marijuana use Plan: Continue current medications, management, and symptomatic treatment. Patient recently extubated this morning in the ICU. Will continue to monitor closely. Multiple medical consultations following. Neurology following. Will continue to monitor blood sugars and titrate medications as needed. Patient remains on tube feedings and will continue at this time. Patient also continues on IV cefepime. Infectious disease is following. Due to multiple complex medical conditions, prognosis is extremely guarded. Further recommendations to follow.
[2019-11-19] MEDS: LOSARTAN 25 MG TAB PO SCH (16:46)
--- NOTE | 2019-11-19 17:15 | PN ---
PROGRESS NOTE DATE OF SERVICE: 11/19/2019 REASON FOR FOLLOWUP: Leukocytosis, possible aspiration pneumonitis. INTERVAL HISTORY: The patient is currently afebrile. The patient has been extubated. He is breathing comfortably however remains to be lethargic and unable to provide any history. No vomiting or diarrhea has been reported. PHYSICAL EXAMINATION: Blood pressure 159/60 with a pulse of 92, temperature 98.1. He is 92% on 4 L nasal cannula. General description is an elderly male, lying in bed in no distress. RESPIRATORY SYSTEM: Unlabored breathing, decreased breath sounds in the base, with no wheeze. HEART: S1, S2. Regular rate and rhythm. ABDOMEN: Soft, no tenderness. LABS: Hemoglobin 7.8, white count 13.3, BUN of 38, creatinine is 1.15. DIAGNOSTIC IMPRESSION AND PLAN: Patient with leukocytosis, multifactorial with possible aspiration pneumonitis. Culture has been negative for resistant pathogen. Patient is covered with Zosyn. White count showing a downward trend to continue, monitor clinical course closely. MMODL / IJN: [id number] /
[2019-11-19 21:11] LABS: Glucose,Whole Blood 199 mg/dL (75-99)
[2019-11-19] MEDS: INSULIN DETEMIR (LEVEMIR) 100 UNIT/ML SYR SQ SCH (21:22)
[2019-11-19] MEDS: SENNOSIDES-DOCUSATE SODIUM 1 EACH TAB PO SCH (21:24)
[2019-11-19] MEDS: DEXTROSE 5% IN WATER 100 ML with AMIODARONE 150 MG IV PRN (22:53)
--- NOTE | 2019-11-19 22:56 | P.PN ---
Subjective Progress Note Date: 11/19/19 Patient was seen for a follow-up. Patient extubated. Patient nonverbal. He offers no complaints. Objective - Vital Signs Vital signs: Vital Signs Temp 98.1 F 11/19/19 16:00 Pulse 94 11/19/19 19:33 Resp 22 11/19/19 19:00 BP 132/65 11/19/19 19:00 Pulse Ox 96 11/19/19 19:00 Intake & Output 11/19/19 11/19/19 11/20/19 06:59 18:59 06:59 Intake Total 413.900 988 65 Output Total 1095 1060 50 Balance -681.100 -72 15 Weight 91 kg 91 kg Intake: IV 232 226 11 .9NS @ 5ml/hr 60 60 5 Normal Saline Pressure 72 66 6 Bag Piperacillin-Tazobactam 3 100 100 .375 gm In Sodium Chloride 0.9% 100 ml @ 25 mls/hr IVPB Q8HR [facility] Rx# :[id number] Intake, IV Titration 73.900 Amount Dexmedetomidine/0.9% NaCl 73.900 (Pmx) 400 mcg In Empty Bag 1 bag @ Titrate IV . Q0M [facility] Rx#:[id number] Tube Feeding 108 702 54 Other 60 Output: Urine 1095 1060 50 Other: Voiding Method Indwelling Catheter Indwelling Catheter # Bowel Movements 1 ABP, PAP, CO, CI - Last Documented Arterial Blood Pressure 160/58 Pulmonary Artery Pressure 30/17 Cardiac Output 4.5 Cardiac Index 2.3 - Exam Patient is much more alert and awake. He is extubated. Patient makes eye contact, but appears somewhat encephalopathic. Pupils are round and reacting. Visual gruber difficult to assess. Extraocular muscles appears intact. Face appears somewhat symmetric. Patient moves his thumb and index fingers better than the rest of the hand. Sometimes spontaneous movement was noted. He did make a retort operator with almost equal strength on both sides. Patient moves left arm above the shoulder, but also moves the right arm but slightly less. Patient did move his toes on command inconsistently. However appears generalized weak. Significant peripheral edema. - Labs CBC & Chem 7: 11/19/19 04:57 11/19/19 04:57 Labs: Abnormal Lab Results - Last 24 Hours (Table) 11/19/19 11/19/19 11/19/19 Range/Units 00:52 04:00 04:57 WBC (3.8-10.6) k/uL RBC (4.30-5.90) m/uL Hgb (13.0-17.5) gm/dL Hct (39.0-53.0) % MCV (80.0-100.0) fL RDW (11.5-15.5) % Neutrophils # (Manual) (1.3-7.7) k/uL Monocytes # (Manual) (0-1.0) k/uL Eosinophils # (Manual) (0-0.7) k/uL Myelocytes # (Manual) (0) k/uL ABG pH (7.35-7.45) ABG HCO3 (21-25) mmol/L ABG Total CO2 (19-24) mmol/L ABG O2 Saturation (94-97) % BUN 38 H (9-20) mg/dL Glucose 67 L (74-99) mg/dL POC Glucose (mg/dL) 122 H 100 H (75-99) mg/dL Calcium 8.1 L (8.4-10.2) mg/dL AST 81 H (17-59) U/L ALT 382 H (4-49) U/L Alkaline Phosphatase 170 H (38-126) U/L Total Protein 5.4 L (6.3-8.2) g/dL Albumin 2.9 L (3.5-5.0) g/dL 11/19/19 11/19/19 11/19/19 Range/Units 04:57 06:47 08:03 WBC 13.3 H (3.8-10.6) k/uL RBC 2.29 L (4.30-5.90) m/uL Hgb 7.4 L (13.0-17.5) gm/dL Hct 23.0 L (39.0-53.0) % MCV 100.3 H (80.0-100.0) fL RDW 16.1 H (11.5-15.5) % Neutrophils # (Manual) 10.11 H (1.3-7.7) k/uL Monocytes # (Manual) 1.06 H (0-1.0) k/uL Eosinophils # (Manual) 0.80 H (0-0.7) k/uL Myelocytes # (Manual) 0.13 H (0) k/uL ABG pH 7.50 H (7.35-7.45) ABG HCO3 27 H (21-25) mmol/L ABG Total CO2 28 H (19-24) mmol/L ABG O2 Saturation 97.9 H (94-97) % BUN (9-20) mg/dL Glucose (74-99) mg/dL POC Glucose (mg/dL) 102 H (75-99) mg/dL Calcium (8.4-10.2) mg/dL AST (17-59) U/L ALT (4-49) U/L Alkaline Phosphatase (38-126) U/L Total Protein (6.3-8.2) g/dL Albumin (3.5-5.0) g/dL 11/19/19 11/19/19 11/19/19 Range/Units 10:32 11:51 15:36 WBC (3.8-10.6) k/uL RBC (4.30-5.90) m/uL Hgb (13.0-17.5) gm/dL Hct (39.0-53.0) % MCV (80.0-100.0) fL RDW (11.5-15.5) % Neutrophils # (Manual) (1.3-7.7) k/uL Monocytes # (Manual) (0-1.0) k/uL Eosinophils # (Manual) (0-0.7) k/uL Myelocytes # (Manual) (0) k/uL ABG pH (7.35-7.45) ABG HCO3 29 H (21-25) mmol/L ABG Total CO2 30 H (19-24) mmol/L ABG O2 Saturation 97.7 H (94-97) % BUN (9-20) mg/dL Glucose (74-99) mg/dL POC Glucose (mg/dL) 154 H 152 H (75-99) mg/dL Calcium (8.4-10.2) mg/dL AST (17-59) U/L ALT (4-49) U/L Alkaline Phosphatase (38-126) U/L Total Protein (6.3-8.2) g/dL Albumin (3.5-5.0) g/dL 11/19/19 Range/Units 21:09 WBC (3.8-10.6) k/uL RBC (4.30-5.90) m/uL Hgb (13.0-17.5) gm/dL Hct (39.0-53.0) % MCV (80.0-100.0) fL RDW (11.5-15.5) % Neutrophils # (Manual) (1.3-7.7) k/uL Monocytes # (Manual) (0-1.0) k/uL Eosinophils # (Manual) (0-0.7) k/uL Myelocytes # (Manual) (0) k/uL ABG pH (7.35-7.45) ABG HCO3 (21-25) mmol/L ABG Total CO2 (19-24) mmol/L ABG O2 Saturation (94-97) % BUN (9-20) mg/dL Glucose (74-99) mg/dL POC Glucose (mg/dL) 199 H (75-99) mg/dL Calcium (8.4-10.2) mg/dL AST (17-59) U/L ALT (4-49) U/L Alkaline Phosphatase (38-126) U/L Total Protein (6.3-8.2) g/dL Albumin (3.5-5.0) g/dL Assessment and Plan Assessment: * Probable subacute stroke involving multiple patchy areas in the left MCA vascular territory. Rule out cardioembolic source. Patient had transient atrial fibrillation, therefore cardioembolic stroke is definitely a possibility. * Status post coronary artery bypass grafting. * Right ICA stenosis 50-69% per carotid ultrasound. * Hypertension * Diabetes * Medical noncompliance in the past. * Tobacco use. Plan: * Await MRI of the brain without contrast, and MRA of the brain without contrast, if possible based upon his cardiac stent clear evidence. * Patient's 2-D echo showed no obvious embolic source at this time. * Carotid Doppler showed 50-69% stenosis proximal right ICA. * Patient currently on aspirin 325 mg and Plavix 75 mg. Also on Lipitor 40 mg. * Patient neurologically showing better response today as above. * Dr. Alegre covering over the weekend. Please call neurology if you have any concerns.
[2019-11-19] MEDS ORDERED: DEXTROSE 5% IN WATER 100 ML with AMIODARONE 150 MG IV ONE (23:33)
[2019-11-20] MEDS: PIPERACILLIN-TAZOBACTAM 3.375 GM in SODIUM CHLORIDE 0.9% 100 ML IVPB SCH ×4 (00:43→23:27)
[2019-11-20] MEDS: HEPARIN SODIUM,PORCINE 5,000 UNIT/ML 1 ML VIAL SQ SCH ×4 (00:43→23:29)
[2019-11-20 00:56] LABS: Glucose,Whole Blood 226 mg/dL (75-99)
[2019-11-20] MEDS: INSULIN ASPART (NovoLOG) 100 UNIT/ML VIAL SQ SCH ×12 (00:57→21:57)
[2019-11-20 04:17] LABS: Glucose,Whole Blood 166 mg/dL (75-99)
[2019-11-20 04:35] LABS: Anisocytosis Slight; HCT 24.1 % (39.0-53.0); HGB 7.4 gm/dL (13.0-17.5); Hypochromasia Moderate; MCH 29.9 pg (25.0-35.0); MCHC 30.5 g/dL (31.0-37.0); Macrocytosis Slight; Mean Platelet Volume 9.1; Platelet Count 348 k/uL (150-450); RBC 2.46 m/uL (4.30-5.90); RDW 16.5 % (11.5-15.5); WBC 20.5 k/uL (3.8-10.6)
[2019-11-20 04:44] LABS: Albumin 3.3 g/dL (3.5-5.0); Calcium 8.5 mg/dL (8.4-10.2); Potassium 3.5 mmol/L (3.5-5.1); Total Bilirubin 1.1 mg/dL (0.2-1.3); Total Protein 6.1 g/dL (6.3-8.2)
[2019-11-20] MEDS: FERROUS SULFATE ORAL ELIXIR 300 MG/5 ML CUP PO SCH ×2 (06:47→18:53)
[2019-11-20] MEDS: POTASSIUM BICARBONATE/CIT AC 20 MEQ TABLET.EFF NG-TUBE SCH ×2 (06:47→06:53)
[2019-11-20] MEDS: PANTOPRAZOLE 40 MG TABLET PO SCH (06:47)
[2019-11-20] MEDS: ASCORBIC ACID 500 MG TAB PO SCH ×2 (06:47→16:21)
[2019-11-20] MEDS: ACETAMINOPHEN TAB 500 MG TAB PO PRN (06:56)
--- NOTE | 2019-11-20 07:16 | XR ---
EXAMINATION TYPE: XR chest 1V portable DATE OF EXAM: 11/20/2019 HISTORY: post extubation. REFERENCE: Previous study dated 11/19/2019. FINDINGS: The patient has been extubated. The ET tube is been removed. A right internal jugular hayley ter remains in place. Its tip is in the right atrium. There has been a midline sternotomy. There is a n NG tube in place. It cannot be followed beyond the mid esophagus. The heart is mildly enlarged. There is vascular congestion and subtle edema. I suspect small, bilater al effusions. IMPRESSION: 1. BIBASILAR AIRSPACE DISEASE WITH CONCOMITANT EFFUSIONS. 2. PLEASE CORRELATE TO EXCLUDE MILD PULMONARY EDEMA.
[2019-11-20 08:17] LABS: Glucose,Whole Blood 96 mg/dL (75-99)
[2019-11-20] MEDS: IPRATROPIUM-ALBUTEROL 3 ML NEB INHALATION SCH ×4 (08:27→20:22)
[2019-11-20] MEDS ORDERED: METOPROLOL TARTRATE 12.5 MG TAB PO SCH (09:00)
[2019-11-20] MEDS: ASPIRIN 325 MG TAB PO SCH (09:12)
[2019-11-20] MEDS: FUROSEMIDE 10 MG/ML 4 ML VIAL IV SCH ×2 (09:12→22:01)
[2019-11-20] MEDS: CHLORHEXIDINE GLUCONATE 15 ML CUP MUCOUS MEM SCH ×2 (09:12→22:01)
[2019-11-20] MEDS: CLOPIDOGREL 75 MG TAB PO SCH (09:12)
[2019-11-20] MEDS: AMIODARONE 200 MG TAB PO SCH (09:12)
[2019-11-20] MEDS: ATORVASTATIN 40 MG TAB PO SCH (09:12)
[2019-11-20] MEDS: NYSTATIN 100,000 UNIT/ML SUSP 500,000 UNIT/5 ML CUP PO SCH ×4 (09:13→22:02)
[2019-11-20] MEDS: LOSARTAN 25 MG TAB PO SCH (09:13)
--- NOTE | 2019-11-20 09:21 | P.PN ---
Subjective Progress Note Date: 11/20/19 Principal diagnosis: Symptomatic multivessel coronary artery disease, unstable angina, status post subendocardial myocardial infarction. Past medical history significant for CAD with previous stent placement to the proximal circumflex and ostial OM1, hypertension, hyperlipidemia, chronic ongoing tobacco dependence, mild COPD with preoperative FEV1 60% of predicted, right internal carotid artery stenosis 50- 69%, peripheral arterial disease with previous arthrectomy and FISHER DIP NET of the left SFA, atherectomy and FISHER DIP NET of the left PREPRESS PROOFER, with stenting of the left BRIAN, poorly controlled type 2 diabetes with preoperative hemoglobin A1c 9.1%, bladder cancer status post chemo and radiation, occasional marijuana use, medication noncompliance, and family history of premature coronary artery disease. POD #12 coronary artery bypass grafting 5 with GR to the LAD, left radial artery to the obtuse marginal coronary artery, a reverse greater saphenous vein to the posterior lateral coronary artery, sequential saphenous vein to the first and second diagonal coronary artery performed on cardiopulmonary bypass with beating heart. Endoscopic vein harvest of the left greater saphenous vein from the ankle to the groin. Endoscopic harvest of the left radial artery. Epi- aortic ultrasound and ligation of left atrial appendage with 40 mm AtriCure clip. Postoperative acute blood loss anemia, expected outcome given cardiopulmonary bypass and hemodilution. Postoperative encephalopathy, unexpected but potential outcome given cardiopulmonary bypass and intraoperative cardiac arrest. Postoperative new onset paroxysmal Afib with RVR, unexpected. Postoperative acute hypoxemic respiratory failure requiring reintubation, secondary to metabolic acidosis and hypotension. Postoperative stage II pressure ulcer on coccyx, unexpected. The patient was seen in follow-up today 11/20/2019 at his bedside in the intensive care unit. The patient is awake, alert and following simple commands appropriately. He was successfully extubated yesterday at 10:55 AM, he is currently on 8 L high flow nasal cannula with oxygen saturations 94% and is achieving 1000 mL on his incentive spirometry with much encouragement. He is hemodynamically stable and is currently on no inotropic or pressor support. Right IJ central line remains in place with continuous CVP monitoring, current CVP pressure 8 mmHg. His night nurse reports that the patient had an episode of A. fib with RVR and received 2 boluses of 150 mg IV amiodarone. Bedside telemetry showing normal sinus rhythm heart rate 96 BPM at this time. Continues to follow simple instructions appropriately and is squeezing both areas with a lmost equal strength and wiggling his toes to verbal stimuli. He is also answering some questions appropriately and is currently oriented 1 to person. Dobbhoff tube remains in place with Glucerna tube feeding infusing at goal rate of 75 mL/h with automatic water flushes 30 mL every 4 hours. Laboratory results this morning show a WBC count of 20.5 which is trending up, hemoglobin 7.4, platelets 348, BUN 36, creatinine 1.10, AST 151, and ALT 251. Lasix 40 mg every [address], he is -1.1 L in the last 24 hours for fluid balance. He remains on Zosyn for antibiotic coverage which is being managed by infectious disease. Objective - Vital Signs Vital signs: Vital Signs Temp 98 F 11/20/19 00:00 Pulse 102 H 11/20/19 06:00 Resp 19 11/20/19 06:00 BP 142/80 11/20/19 06:00 Pulse Ox 93 L 11/20/19 06:00 Intake & Output 11/19/19 11/20/19 11/20/19 18:59 06:59 18:59 Intake Total 988 240 Output Total 1060 1270 Balance -72 -1030 Weight 91 kg 88.1 kg Intake: IV 226 132 .9NS @ 5ml/hr 60 60 Normal Saline Pressure 66 72 Bag Piperacillin-Tazobactam 3 100 .375 gm In Sodium Chloride 0.9% 100 ml @ 25 mls/hr IVPB Q8HR [facility] Rx# :[id number] Tube Feeding 702 108 Other 60 Output: Urine 1060 1270 Other: Voiding Method Indwelling Catheter Indwelling Catheter # Bowel Movements 1 ABP, PAP, CO, CI - Last Documented Arterial Blood Pressure 161/71 Pulmonary Artery Pressure 30/17 Cardiac Output 4.5 Cardiac Index 2.3 - Constitutional General appearance: Present: cooperative, no acute distress, obese - EENT Eyes: Present: PERRLA, normal appearance. Absent: scleral icterus ENT: Present: hearing grossly normal, thrush - Neck Details: Neck is supple, no JVD, right IJ triple-lumen central line in place with continuous CVP monitoring, current CVP pressure 8 mmHg. - Respiratory Details: Lung sounds essentially clear to his bilateral upper lobes, diminished to his bilateral bases. No wheezes, rhonchi or crackles. Respirations are symmetrical and nonlabored. Oxygen saturation is 94% on 8 L high flow nasal cannula. Achieving 1000 mL on his incentive spirometry with much encouragement. - Cardiovascular Details: Regular rhythm and rate. S1 and S2 present, negative for S3, gallop or murmur. Bedside telemetry showing normal sinus rhythm heart rate 96. Sternum is stable. Heart hugger is in place. Atrial and ventricular epicardial pacemaker wires in place connected to a backup pacemaker generator, AAI mode of 50 BPM. Generalized +1 edema. Knee-high ELSIE hose and sequential compression devices in place to bilateral lower extremities. - Gastrointestinal Gastrointestinal Comment(s): Abdomen is soft, nontender and nondistended. Active bowel sounds present in all 4 abdominal quadrants. Left nare Dobbhoff tube in place to continuous tube feeding infusing at goal rate of 75 mL per hour with automatic water flushes 30 mL every [address] with loose brown bowel movement. - Genitourinary Genitourinary Comment(s): Newman catheter for accurate I&O. Draining clear yellow urine with sediment. 710 mL output in the last 8 hours. - Integumentary Integumentary Comment(s): Skin is warm and dry. No clubbing or cyanosis present. Midline sternal incision is clean, dry and approximated. No drainage or redness is present. Gauze dressing is clean and dry. Left lower extremity EVH sites are clean, dry and approximated. No drainage or redness is present. Left radial artery harvest sites are clean, dry and approximated. No drainage or redness is present. Some scattered ecchymotic areas to his left thigh and left forearm. Soft and nontender to touch. Palpable ulnar pulse to his left arm. Stage II pressure ulcer to his coccyx area with optifoam clean dry and in place. - Neurologic Neurologic Comment(s): Alert and oriented 1 to person. Following some simple commands appropriately with strength equal both sides with hand squeezes. Neurologic: Present: CNII-XII intact - Musculoskeletal Musculoskeletal: Present: generalized weakness - Psychiatric Psychiatric Comment(s): Alert and oriented 1. - Allied health notes Allied health notes reviewed: nursing - Labs CBC & Chem 7: 11/20/19 04:18 11/20/19 04:18 Labs: Abnormal Lab Results - Last 24 Hours (Table) 11/19/19 11/19/19 11/19/19 Range/Units 04:57 10:32 11:51 WBC (3.8-10.6) k/uL RBC (4.30-5.90) m/uL Hgb (13.0-17.5) gm/dL Hct (39.0-53.0) % MCHC (31.0-37.0) g/dL RDW (11.5-15.5) % Neutrophils # (Manual) 10.11 H (1.3-7.7) k/uL Monocytes # (Manual) 1.06 H (0-1.0) k/uL Eosinophils # (Manual) 0.80 H (0-0.7) k/uL Myelocytes # (Manual) 0.13 H (0) k/uL ABG HCO3 29 H (21-25) mmol/L ABG Total CO2 30 H (19-24) mmol/L ABG O2 Saturation 97.7 H (94-97) % BUN (9-20) mg/dL Glucose (74-99) mg/dL POC Glucose (mg/dL) 154 H (75-99) mg/dL AST (17-59) U/L ALT (4-49) U/L Alkaline Phosphatase (38-126) U/L Total Protein (6.3-8.2) g/dL Albumin (3.5-5.0) g/dL 11/19/19 11/19/19 11/20/19 Range/Units 15:36 21:09 00:54 WBC (3.8-10.6) k/uL RBC (4.30-5.90) m/uL Hgb (13.0-17.5) gm/dL Hct (39.0-53.0) % MCHC (31.0-37.0) g/dL RDW (11.5-15.5) % Neutrophils # (Manual) (1.3-7.7) k/uL Monocytes # (Manual) (0-1.0) k/uL Eosinophils # (Manual) (0-0.7) k/uL Myelocytes # (Manual) (0) k/uL ABG HCO3 (21-25) mmol/L ABG Total CO2 (19-24) mmol/L ABG O2 Saturation (94-97) % BUN (9-20) mg/dL Glucose (74-99) mg/dL POC Glucose (mg/dL) 152 H 199 H 226 H (75-99) mg/dL AST (17-59) U/L ALT (4-49) U/L Alkaline Phosphatase (38-126) U/L Total Protein (6.3-8.2) g/dL Albumin (3.5-5.0) g/dL 11/20/19 11/20/19 11/20/19 Range/Units 04:16 04:18 04:18 WBC 20.5 H (3.8-10.6) k/uL RBC 2.46 L (4.30-5.90) m/uL Hgb 7.4 L (13.0-17.5) gm/dL Hct 24.1 L (39.0-53.0) % MCHC 30.5 L (31.0-37.0) g/dL RDW 16.5 H (11.5-15.5) % Neutrophils # (Manual) (1.3-7.7) k/uL Monocytes # (Manual) (0-1.0) k/uL Eosinophils # (Manual) (0-0.7) k/uL Myelocytes # (Manual) (0) k/uL ABG HCO3 (21-25) mmol/L ABG Total CO2 (19-24) mmol/L ABG O2 Saturation (94-97) % BUN 36 H (9-20) mg/dL Glucose 142 H (74-99) mg/dL POC Glucose (mg/dL) 166 H (75-99) mg/dL AST 151 H (17-59) U/L ALT 403 H (4-49) U/L Alkaline Phosphatase 251 H (38-126) U/L Total Protein 6.1 L (6.3-8.2) g/dL Albumin 3.3 L (3.5-5.0) g/dL - Imaging and Cardiology Chest x-ray: report reviewed, image reviewed Assessment and Plan Assessment: 1. Symptomatic multivessel coronary artery disease, recent non-STEMI, status post 5 vessel CABG 2. Leukocytosis, unknown origin, may be reactive 3. Previous stent placement to the proximal circumflex and ostial OM1 4. History of hypertension 5. History of hyperlipidemia 6. Chronic ongoing tobacco dependence 7. Mild COPD, preoperative FEV1 60% of predicted value 8. Right internal carotid artery stenosis 50-69% 9. History of peripheral arterial disease with previous arthrectomy and FISHER DIP NET of the left SFA and atherectomy and FISHER DIP NET of the left PREPRESS PROOFER with stenting of the left BRIAN 10. Poorly controlled diabetes mellitus type 2, admission hemoglobin A1c 9.1% 11. History of bladder cancer status post radiation, chemotherapy treatment and bladder surgery 12. Occasional marijuana use 13. Medication noncompliance 14. Family history of early onset coronary artery disease 15. Postoperative acute blood loss anemia, expected 16. Postoperative confusion, unexpected 17. Mild ISAAC, creatinine today 1.46 yesterday 1.44 18. New onset Afib with RVR, status post left atrial appendage ligation 19. New onset hematuria from patient pulling at newman catheter 20. Postoperative acute hypoxic respiratory failure requiring reintubation, secondary to metabolic acidosis and hypotension 21. Elevated transaminase levels, secondary to hypotension, trending down 22. Postoperative stage II pressure ulcer, coccyx Plan: 1. Continue aspirin, Plavix and statin and beta gaurav. Increase metoprolol tartrate 25 mg by Dobbhoff tube twice a day. 2. Discontinue amiodarone. 3. Continue Cozaar 25 mg per Dobbhoff tube daily. 4. Keep Newman catheter in place for accurate I&O. Newman catheter was changed on 11/14/2019. 5. Restart Cardizem 30 mg per Dobbhoff tube every 6 hours for radial artery spasm prophylaxis [place] wean oxygen as tolerated. Hold for heart rate less than 70 and systolic blood pressure less then or equal to 100 mmHg. 6. Wean oxygen as tolerated. Encourage use of his incentive spirometry 10 times every hour while awake. 7. continued Dobbhoff tube with tube feedings Glucerna infusing at 75 mL per hour with 30 mL every 4 hours of water flushes. Per dietitian's recommendations. 8. Will monitor daily labs and chest x-rays. Electrolyte replacement per protocol. 9. Continue Tylenol for pain management, hold narcotics and toradol. 10. GI/DVT prophylaxis. 11. Insulin management per primary care service. 12. Continue Lasix 40 mg IV twice a day. 13. Increase activity as tolerated. Physical/occupational therapy and cardiac rehab following. Out of bed to chair 3 times a day. 14. Continue to avoid nephrotoxic agents. BUN and creatinine trending down. 15. Keep atrial and ventricular epicardial pacemaker wires in place and connected to a backup pacemaker generator with a AAI of 50. 16. Continue to turn patient every 2 hours and when necessary. 17. Infectious disease is following for antibiotic management. 18. More recommendations to follow based on patient's clinical course. Time with Patient: Greater than 30
[2019-11-20] MEDS: DILTIAZEM ORAL 30 MG TAB PO SCH (11:22)
[2019-11-20 12:12] LABS: Glucose,Whole Blood 137 mg/dL (75-99)
--- NOTE | 2019-11-20 12:22 | P.PN ---
Subjective Progress Note Date: 11/20/19 Principal diagnosis: Coronary artery disease and non-ST elevation myocardial infarction, status post 5 vessel bypass surgery postoperative day #12 This is a 64-year-old male patient with coronary artery disease, noncompliant to medication. The patient came in with subendocardial infarction and cardiac catheterization showed diffuse coronary artery disease with critical stenosis. The patient underwent coronary artery bypass today. The patient underwent bypass 5 with GR to LAD, radial artery graft to acute marginal, saphenous finger after 2 posterior lateral and sick ration saphenous vein to first and second diagonal performed on cardiac pulmonary bypass with beating heart. On 11/13/2019, the patient is being seen for a follow-up. The patient had significant events on the second day post extubation and all of these events were noted and I was able to participate in his care as the patient's condition got worse yesterday afternoon. The patient became progressively more tachypneic and his blood gases was repeated and it was noted that the patient had signif icant amount of metabolic acidosis with respiratory compensation. Ultimately, the patient became progressively more fatigued and went into respiratory failure. He became briefly hypoxic and had a bout of bradycardia and his blood pressure also subsequently dropped. At that point, the patient was started immediately on fluid resuscitation. Lasix was already discontinued. During the process, the patient received a total of 500 mL of albumin 5% 3, received bicarb infusion on multiple occasions total of 4 episodes of sodium bicarb was given for severe metabolic acidosis. Note that his lactic acid level was as high as 11. Following that, the patient was placed on a sodium bicarb infusion with 150 mEq of sodium bicarbonate there was running at 75 mL an hour. Lactic acid level came from 11.8 down to 1.5. He had to be intubated and placed on a mechanical ventilator. He was also requiring pressors with was running as high as 3 g per minute and currently is off the pressors. This morning, the patient is on a mechanical ventilator on assist control mode at the rate of 24 with a t idal volume of 450 and an FiO2 of 50% with a PEEP of 5. Urine output is order of 20-40 mL an hour. The blood gases from today showed a pH of 7.53 with a pCO2 of 31 and pO2 of 145. The chest x-ray shows some mild pulmonary vascular congestion and some subpulmonic pleural effusions bilaterally. The patient is well sedated with propofol and the patient is calm and comfortable. He is afebrile. As for the blood work, the white cell causative 18.7. The creatinine came up to 1.6 and currently is down to 1.4. The serum bicarbs at 28. Note that the chest tubes are already out for now. The patient has a Junior catheter in place and urine output has been approximately 240 mL's over the past 8 hours. The atrial and ventricular epicardial pacemaker wires remain in place. The bedside pacemaker generator is on a AAI mode with a rate of 70 and the underlying rhythm is sinus bradycardia. The patient has no other arrhythmias noted. On 11/14/2019, the patient is being seen for a follow-up in the intensive care unit. The patient remains sedated and the patient is calm comfortable on propo fol at 40 g per KG per minute. Noted the patient remains on a mechanical ventilator. The ventilator today is set at a tidal volume of 450 with a rate of 16 FiO2 of 40% with a PEEP of 5. Blood gas show a pH of 7.48 with a pCO2 of 32 and pO2 of 114. Chest x-ray showing bilateral pleural effusion which is gotten slightly worse compared to yesterday. The patient remains having a lower CVP of 6. Cardiac rhythm is sinus. The patient is receiving vital high protein at the rate of 30 mL's an hour. The patient is also on D5 half-normal saline running at 30 mL an hour. White cell count is elevated. Nevertheless the lactic acidosis improved. The patient was receiving IV Zosyn and dose of vancomycin was also given by cardiothoracic surgery. Creatinine is still elevated at 1.46. Hemoglobin stable at 7.7. The patient is arousable. The patient was taken off sedation and took approximately 4 hours for him to wake up and follows some simple commands. Nevertheless, he became tachypneic and his progress and we had to abort the sedation holiday. He is producing adequate amount of urine output. He was given a dose of Lasix earlier by the surgical team and the patient was thought to be in some fluid overload special with development of bilateral pleural effusions. No other significant events otherwise for now. Patient was reevaluated today on 11/15/19, remains in the ICU, intubated and mechanically ventilated. His ventilator settings are assist control rate of 16 tidal volume is 450 FiO2 is 40% PEEP is 5. ABG showed a pO2 of 80 pCO2 of 32 pH of 7.47. Patient is status post CABG 5, postoperative day #7. He remains on norepinephrine at 0.03 mcg/kg/m, propofol at 50 mcg/kg/m. Chest x-ray is clearly showing evidence of pulmonary edema, difficult to rule out underlying p neumonia, but this is felt to be less likely. Patient was given a sedation holiday today, and could not be tolerated, patient was extremely tachypneic and tachycardic off sedation. Patient has a Dobbhoff tube in place, and he is on enteral feeding. Feeding is at goal. Today after evaluating the patient, and recommended Lasix at 40 mg IV push every 12 hours, chest x-ray is clearly consistent with pulmonary edema. Electrolytes unremarkable, BUN is 35 creatinine is 1.27, improved compared to the last few days. Liver enzymes are abnormal, patient apparently had what seemed to be a shocked liver. Patient was reevaluated today on 11/16/19, remains in the ICU, intubated and mechanically ventilated. He is on assist control rate of 16 tidal volume is 450 FiO2 is 40% and PEEP is 5. ABG showed a pO2 of 94 pCO2 of 34 pH of 7.48. Chest x-ray continues to show evidence of pulmonary vascular congestion and small to moderate bilateral pleural effusions. However ultrasound of the chest failed to show significant pleural effusion that would warrant thoracentesis. And no markings were placed. Patient remains on diuretics, Lasix 40 mg IV push every 12 hours. I believe the chest x-ray showed slight improvement compared to yesterday. Patient fluid balance is -870 mL. Liver profile is improving. Patient remains on cefepime and vancomycin. Patient is also on enteral feeding. And he is on propofol at 50 mcg/kg/m. I plan today to at least give the patient a sedation holiday, assess mental status, and possibly assess weaning parameters although the patient is not ready for weaning, ABG remains marginal, and his chest x-ray is quite abnormal. On 11/17/2019 patient seen in follow-up in the intensive care unit, she is sedated, intubated, on mechanical ventilator, current vent settings are assist- control with a rate of 16, tidal and was 450, FiO2 is 40%, and PEEP of 5. This morning his blood gases reveal pO2 of 92, pCO2 34, pH is 7.47. Current IV drips include 0.9 normal saline at a rate of 5 ML per hour, and improving and is at 60 mics per kilo per minute, tube feedings are with vital high-protein at a rate of 54, with a goal of 54 with standard water flushes with 30 mL of water every 4 hours. Patient was given daily traction of sedation yesterday, he awoke, and reportedly follow commands, but quickly became very tachypneic and hypertensive and had to be placed back on mechanical ventilator. His chest x-ray shows stable findings, persistent central vascular congestion and bibasilar opacities. Small to moderate-sized bilateral pleural effusions, appear to be stable. Patient remains on IV Lasix at 40 mg every 12 hours, and he is very slightly negative, only 6 mL, however he did produced over 3 L in urine output in the last 24 hours. He is off the vasopressor support, his weight is stable, he does have some generalized edema involving his upper and lower extremities. Remains on empiric antibiotics in the form of cefepime and vancomycin. He is afebrile, his blood urine and sputum cultures have shown no growth thus far. Today's labs have been reviewed. His white blood cell is stable at 15, hemoglobin is 7.7, sodium is 136, the rest of electrolytes were within normal limits, B1 is 33, and creatinine is 1.04, his liver enzymes are coming down, AST is down to 130, ALT is 692, alk phos is fairly stable at 195, his pro-calcitonin level was elevated and 0.99, suggesting presence of bacterial infection. Patient has been afebrile, abdomen is soft, nontender, patient is tolerating tube feedings. His hematuria has cleared up. On 11/18/2019 patient seen in follow-up in the intensive care unit. Patient is still intubated, his sedation has been on hold since 7:00 this morning, patient is awake, he is following basic commands, squeezing with his left hand, however his right hand is flaccid, and patient is not able to squeeze with the right h and. His current vent settings are assist-control with a rate of 16, tidal volume is 450, FiO2 is 40%, and PEEP of 5. This is blood gases showed pO2 106, pCO2 35, and pH of 7.49. Currently on no drips other than 0.9 normal saline at a rate of KVO. Patient has been tolerating tube feedings. Yesterday we repeated his CT of the brain which showed no evidence of acute hemorrhage, areas of patchy low attenuation in the left parietal white matter previously noted on previous brain scan this could be on the basis of subacute ischemia. MRI of the brain was recommended, neurology consultation was requested and patient is suspected to have probable subacute stroke involving multiple patchy areas in the left MCA vascular territory consideration of cardioembolic source. Patient did have transient atrial fibrillation. Follow-up MRI and MRA of the brain will be done once the patient is extubated and is able to travel down to the MRI department. Today's chest x-ray shows diffuse bilateral pleural parenchymal changes, no pneumothorax. Consider pulmonary edema, or underlying pneumonia. So far blood and urine and sputum cultures remain negative. Patient is afebrile, hemodynamically he stable, empiric antibiotic coverage is with Zosyn, vancomycin has been discontinued, ID service is following. Patient is on IV Lasix at 40 mg every 12 hours. He has produced 2.7 L and urine output over last 24 hours, he is in -280 mL fluid balance. He seems to get slightly agitated at times, becomes hypertensive, today she is following commands, we will try to keep him off sedation, to fully assess his mentation and neurological status, we will repeat LFTs, and ammonia level. Patient was reevaluated today on 11/19/19, remains in the intensive care unit, off sedation, patient is following simple instructions, he had a good gag reflex according to rest today therapy when the patient was suctioned. Patient remains on the same ventilator settings as yesterday, FiO2 is 40% PEEP is 5, volume is 450 rate of 16. ABG showed a pO2 of 88 pCO2 of 35 pH of 7.50. Chest x-ray is showing improvement in his by basilar opacities. And his ABG is relatively acceptable. Hence I went ahead and recommended that the patient goes on pressure support of 8 and CPAP, and an hour later his repeat ABG on CPAP showed a pO2 of 94 pCO2 of 42 pH of 7.44 hence proceeded to extubating the patient. In the meantime I have recommended that we continue present antibiotics and bronchodilators as well as diuretics. Reevaluated today on 11/20/19, patient was extubated yesterday, and he tolerated the extubation quite well. Patient is awake, follows very simple instructions, remains on 8 L high flow nasal cannula, O2 saturations 94%. Patient is hemodynamically stable not requiring any inotropes or pressors. CVP is about 8, had an episode of A. fib with RVR yesterday and he received 2 boluses of amiodarone. Presently in normal sinus rhythm. Patient follows again simple instructions, but remains confused, oriented 1 to person. Continues to have Dobbhoff tube in place, and receiving enteral feeding. Remains on antibiotics in the form of Zosyn for presumptive aspiration. Objective - Vital Signs Vital signs: Vital Signs Temp 98 F 11/20/19 00:00 Pulse 98 11/20/19 10:00 Resp 13 11/20/19 10:00 BP 111/79 11/20/19 10:00 Pulse Ox 94 L 11/20/19 10:00 Intake & Output 11/19/19 11/20/19 11/20/19 18:59 06:59 18:59 Intake Total 988 240 413 Output Total 1060 1270 385 Balance -72 -1030 28 Weight 91 kg 88.1 kg Intake: IV 226 132 158 .9NS @ 5ml/hr 60 60 40 Normal Saline Pressure 66 72 18 Bag Piperacillin-Tazobactam 3 100 100 .375 gm In Sodium Chloride 0.9% 100 ml @ 25 mls/hr IVPB Q8HR [facility] Rx# :[id number] Tube Feeding 702 108 225 Other 60 30 Output: Urine 1060 1270 385 Other: Voiding Method Indwelling Catheter Indwelling Catheter # Bowel Movements 1 ABP, PAP, CO, CI - Last Documented Arterial Blood Pressure 161/71 Pulmonary Artery Pressure 30/17 Cardiac Output 4.5 Cardiac Index 2.3 - Exam Physical Exam: Revealed a 64-year-old white male on high flow nasal cannula, in no distress. Head: Atraumatic, normocephalic, HEENT:[Neck is supple.] [No neck masses.] [No thyromegaly.] [No JVD.] Moist mucous membranes, PERRLA, EOMI, no icterus. Right IJ triple-lumen catheter is noted. Chest: Symmetrical chest expansion, crackles at the bases no rhonchi and no wheezes.] Cardiac Exam: [Normal S1 and S2, no S3 gallop, no murmur.] Abdomen: [Soft, nontender, no megaly, no rebound, no guarding, normal bowel sounds.] Extremities: [No clubbing, no edema, no cyanosis.] Neurological Exam: Awake, follows simple instructions, oriented 1. Psychiatric: Blunted mood and affect, oriented 1. Skin: No rashes. Lymphatics: No lymphadenopathy. - Labs CBC & Chem 7: 11/20/19 04:18 11/20/19 04:18 Labs: Abnormal Lab Results - Last 24 Hours (Table) 11/19/19 11/19/19 11/20/19 Range/Units 15:36 21:09 00:54 WBC (3.8-10.6) k/uL RBC (4.30-5.90) m/uL Hgb (13.0-17.5) gm/dL Hct (39.0-53.0) % MCHC (31.0-37.0) g/dL RDW (11.5-15.5) % BUN (9-20) mg/dL Glucose (74-99) mg/dL POC Glucose (mg/dL) 152 H 199 H 226 H (75-99) mg/dL AST (17-59) U/L ALT (4-49) U/L Alkaline Phosphatase (38-126) U/L Total Protein (6.3-8.2) g/dL Albumin (3.5-5.0) g/dL 11/20/19 11/20/19 11/20/19 Range/Units 04:16 04:18 04:18 WBC 20.5 H (3.8-10.6) k/uL RBC 2.46 L (4.30-5.90) m/uL Hgb 7.4 L (13.0-17.5) gm/dL Hct 24.1 L (39.0-53.0) % MCHC 30.5 L (31.0-37.0) g/dL RDW 16.5 H (11.5-15.5) % BUN 36 H (9-20) mg/dL Glucose 142 H (74-99) mg/dL POC Glucose (mg/dL) 166 H (75-99) mg/dL AST 151 H (17-59) U/L ALT 403 H (4-49) U/L Alkaline Phosphatase 251 H (38-126) U/L Total Protein 6.1 L (6.3-8.2) g/dL Albumin 3.3 L (3.5-5.0) g/dL 11/20/19 Range/Units 12:11 WBC (3.8-10.6) k/uL RBC (4.30-5.90) m/uL Hgb (13.0-17.5) gm/dL Hct (39.0-53.0) % MCHC (31.0-37.0) g/dL RDW (11.5-15.5) % BUN (9-20) mg/dL Glucose (74-99) mg/dL POC Glucose (mg/dL) 137 H (75-99) mg/dL AST (17-59) U/L ALT (4-49) U/L Alkaline Phosphatase (38-126) U/L Total Protein (6.3-8.2) g/dL Albumin (3.5-5.0) g/dL Assessment and Plan Assessment: Impression: Coronary artery disease and non-ST elevation myocardial infarction status post CABG 5, postoperative day #12 Status post successful extubation on 11/19/19. Postoperative respiratory failure requiring reintubation mostly because of progressive lactic acidosis and metabolic acidosis with hypotension and evidence of pulmonary edema. Not expected. Exact etiology is not clear, antibiotics were given empirically. Cultures have all been negative. Altered mental status most likely secondary to metabolic encephalopathy suspected, CVA, please refer to neurology evaluation. New onset atrial fibrillation and RVR. Type 2 diabetes. Peripheral vessel occlusive disease with prior peripheral stent placement. Moderate severe COPD FEV1 of 60% at baseline. History of marijuana smoking. Acute kidney injury and acute shock liver secondary to hypotension, improving History of bladder cancer and previous radiation/chemotherapy with subsequent surgery. Recommendation: Continue to monitor in the ICU. Continue empiric antibiotics. Continue patient on high flow nasal cannula and titrate accordingly. Continue statins aspirin and Plavix. Continue diuretics. Hold all narcotics and sedatives. Encourage incentive spirometer. Early ambulation if possible and if his mental status allows. Continue GI and DVT prophylaxis. Avoid nephrotoxic drugs. Continue Cardizem. Dobbhoff tube. We'll continue to follow Time with Patient: Less than 30
[2019-11-20] MEDS ORDERED: DILTIAZEM 125 MG in SODIUM CHLORIDE 0.9% 100 ML IV SCH (13:30)
--- NOTE | 2019-11-20 15:50 | PN ---
PROGRESS NOTE DATE OF SERVICE: 11/20/2019 REASON FOR FOLLOWUP: 1. Aspiration pneumonitis. 2. Diarrhea and worsening of the white count. INTERVAL HISTORY: Patient is currently afebrile. The patient is more awake, alert, breathing comfortably. Currently on nasal cannula oxygen. No chest pain. Minimal cough. No abdominal pain. He did have worsening of the diarrhea. Currently did have fecal management system. PHYSICAL EXAMINATION: Blood pressure 140/65 with a pulse of 140, temperature of 98. He is 93% on 8 L nasal cannula. General description is an elderly male lying in bed in no distress. Respiratory system: Unlabored breathing, decreased breath sounds in the bases. No wheeze. Heart S1, S2. Regular rate and rhythm. Abdomen soft, no tenderness. LABS: Hemoglobin 7.8, white count [address]42[address], BUN of 36, creatinine 1.10. DIAGNOSTIC IMPRESSION AND PLAN: Patient with leukocytosis which is multifactorial, did have a component of possible aspiration pneumonitis. Currently covered with Zosyn and white count did show downward trend. However, her white count has shown significant upward this morning and the patient did have diarrhea with concern for possible C difficile. Unfortunately, we cannot send stool sample until the patient is off the laxative which I agree to. However, we will empirically add vancomycin down the Dobbhoff and monitor clinical course closely. Family at the bedside. Questions were answered. MMNICKL / JASEN: [id number] /
[2019-11-20 15:57] LABS: Glucose,Whole Blood 154 mg/dL (75-99)
[2019-11-20] MEDS ORDERED: METOPROLOL TARTRATE 25 MG TAB PO SCH (16:15)
--- NOTE | 2019-11-20 16:17 | P.PN ---
Subjective Patient is a lot more alert and oriented now. He is smiling and answering questions However he is in A. fib with RVR but he does not appear to be too short of breath I spoke to CT surgery service today and we stopped amiodarone since he remained in atrial fibrillation despite an amiodarone. We added calcium channel blockers and beta blockers On examination heart rates are about 130s and 40 beats a minute Breath sounds are reduced bilaterally No murmurs Abdomen soft Impression A. fib with RVR Status post coronary artery bypass grafting Non-ST elevation AL Extubated yesterday and is doing well from her [employer] standpoint Plan Start IV Cardizem Will increase rate control medications, metoprolol increased today Objective - Vital Signs Vital signs: Vital Signs Temp 98 F 11/20/19 00:00 Pulse 114 H 11/20/19 14:00 Resp 20 11/20/19 14:00 BP 111/79 11/20/19 10:00 Pulse Ox 93 L 11/20/19 13:00 Intake & Output 11/19/19 11/20/19 11/20/19 18:59 06:59 18:59 Intake Total 988 240 777 Output Total 1060 1270 1510 Balance -72 -1030 -733 Weight 91 kg 88.1 kg Intake: IV 226 132 192 .9NS @ 5ml/hr 60 60 40 Diltiazem 125 mg In 10 Sodium Chloride 0.9% 100 ml @ 10 MG/HR 10 mls/hr IV .[id number] [facility] Rx#: [id number] Normal Saline Pressure 66 72 42 Bag Piperacillin-Tazobactam 3 100 100 .375 gm In Sodium Chloride 0.9% 100 ml @ 25 mls/hr IVPB Q8HR [facility] Rx# :[id number] Tube Feeding 702 108 525 Other 60 60 Output: Urine 1060 1270 1510 Other: Voiding Method Indwelling Catheter Indwelling Catheter # Bowel Movements 1 ABP, PAP, CO, CI - Last Documented Arterial Blood Pressure 142/65 Pulmonary Artery Pressure 30/17 Cardiac Output 4.5 Cardiac Index 2.3 - Labs CBC & Chem 7: 11/20/19 04:18 11/20/19 04:18 Labs: Abnormal Lab Results - Last 24 Hours (Table) 11/19/19 11/20/19 11/20/19 Range/Units 21:09 00:54 04:16 WBC (3.8-10.6) k/uL RBC (4.30-5.90) m/uL Hgb (13.0-17.5) gm/dL Hct (39.0-53.0) % MCHC (31.0-37.0) g/dL RDW (11.5-15.5) % BUN (9-20) mg/dL Glucose (74-99) mg/dL POC Glucose (mg/dL) 199 H 226 H 166 H (75-99) mg/dL AST (17-59) U/L ALT (4-49) U/L Alkaline Phosphatase (38-126) U/L Total Protein (6.3-8.2) g/dL Albumin (3.5-5.0) g/dL 11/20/19 11/20/19 11/20/19 Range/Units 04:18 04:18 12:11 WBC 20.5 H (3.8-10.6) k/uL RBC 2.46 L (4.30-5.90) m/uL Hgb 7.4 L (13.0-17.5) gm/dL Hct 24.1 L (39.0-53.0) % MCHC 30.5 L (31.0-37.0) g/dL RDW 16.5 H (11.5-15.5) % BUN 36 H (9-20) mg/dL Glucose 142 H (74-99) mg/dL POC Glucose (mg/dL) 137 H (75-99) mg/dL AST 151 H (17-59) U/L ALT 403 H (4-49) U/L Alkaline Phosphatase 251 H (38-126) U/L Total Protein 6.1 L (6.3-8.2) g/dL Albumin 3.3 L (3.5-5.0) g/dL 11/20/19 Range/Units 15:56 WBC (3.8-10.6) k/uL RBC (4.30-5.90) m/uL Hgb (13.0-17.5) gm/dL Hct (39.0-53.0) % MCHC (31.0-37.0) g/dL RDW (11.5-15.5) % BUN (9-20) mg/dL Glucose (74-99) mg/dL POC Glucose (mg/dL) 154 H (75-99) mg/dL AST (17-59) U/L ALT (4-49) U/L Alkaline Phosphatase (38-126) U/L Total Protein (6.3-8.2) g/dL Albumin (3.5-5.0) g/dL
[2019-11-20] MEDS: VANCOMYCIN ORAL SOLUTION 250 MG/5 ML BOTTLE PO SCH ×3 (16:19→23:30)
[2019-11-20] MEDS: CHERRY FLAVOR 60 ML BOTTLE PO SCH ×3 (16:20→23:30)
[2019-11-20] MEDS ORDERED: METOPROLOL TARTRATE 50 MG TAB PO STA (16:29)
[2019-11-20 16:46] LABS: ABG Base Excess 4.6 mmol/L; ABG HCO3 27 mmol/L (21-25); ABG Oxygen Saturation 83.1 % (94-97); ABG PCO2 33 mmHg (35-45); ABG PH 7.53 (7.35-7.45); ABG TCO2 28 mmol/L (19-24); Allen Test Performed? Yes
[2019-11-20 16:50] LABS: ABG PO2 46 mmHg (83-108)
[2019-11-20] MEDS ORDERED: propofoL 100 ML IV ONE (16:57)
--- NOTE | 2019-11-20 17:25 | XR ---
EXAMINATION TYPE: XR chest 1V DATE OF EXAM: 11/20/2019 COMPARISON: Today HISTORY: Check tube placement TECHNIQUE: Single view FINDINGS: Endotracheal tube is 2 cm from the stephanie. There is right jugular catheter with tip in the right atrium. Heart is enlarged. There is pulmonary edema. There are sternal wires. There are chest l lisa. There is blunting of the costophrenic angles. IMPRESSION: There is moderate pulmonary edema that is worse than exam this morning. Pleural effusion s probably increased.
--- NOTE | 2019-11-20 18:17 | CT ---
EXAMINATION TYPE: CT angio chest DATE OF EXAM: 11/20/2019 COMPARISON: None HISTORY: Patient intubted @ time of scan CT DLP: 614.7 mGycm Automated exposure control for dose reduction was used. CONTRAST: Performed with IV Contrast, patient injected with 100 mL of Isovue 370. There are 3-D post processed images. There is endotracheal tube. Thoracic aorta is intact. There is no evidence of aneurysm or dissection. There are moderately large bilateral pleural effusions. There is extensive bilateral pulmonary airsp sophie infiltrates. There is extensive atelectasis adjacent to the pleural fluid. Heart is enlarged. The re is no pericardial effusion. I see no filling defects in the pulmonary arteries. There is no medias tinal adenopathy. Bony thorax is intact. There are sternal wires. Upper abdominal soft tissues are in tact. IMPRESSION: No evidence of pulmonary embolism. Large pleural effusions with extensive infiltrates and atelectasis that could relate to chronic congestive heart failure.
[2019-11-20 18:21] LABS: ABG Base Excess 3.1 mmol/L; ABG HCO3 26 mmol/L (21-25); ABG Oxygen Saturation 99.7 % (94-97); ABG PCO2 34 mmHg (35-45); ABG PO2 201 mmHg (83-108); ABG TCO2 27 mmol/L (19-24); Allen Test Performed? Yes
[2019-11-20] MEDS: DOPamine DRIP 800 MG in DEXTROSE/WATER 1 250ML.BAG IV SCH (18:47)
[2019-11-20 21:48] LABS: Glucose,Whole Blood 144 mg/dL (75-99)
[2019-11-20] MEDS: INSULIN DETEMIR (LEVEMIR) 100 UNIT/ML SYR SQ SCH (22:01)
[2019-11-20] MEDS: METOPROLOL TARTRATE 50 MG TAB PO SCH (22:03)
[2019-11-21 00:56] LABS: Glucose,Whole Blood 180 mg/dL (75-99)
[2019-11-21] MEDS: INSULIN ASPART (NovoLOG) 100 UNIT/ML VIAL SQ SCH ×12 (00:59→20:28)
[2019-11-21 04:25] LABS: Glucose,Whole Blood 140 mg/dL (75-99)
[2019-11-21 04:49] LABS: Anisocytosis Slight; Hypochromasia Marked; MCH 31.6 pg (25.0-35.0); MCHC 31.7 g/dL (31.0-37.0); MCV 99.6 fL (80.0-100.0); Macrocytosis Slight; Mean Platelet Volume 8.8; Platelet Count 377 k/uL (150-450); RBC 2.21 m/uL (4.30-5.90); RDW 16.5 % (11.5-15.5); WBC 15.2 k/uL (3.8-10.6)
[2019-11-21 05:02] LABS: Albumin 2.9 g/dL (3.5-5.0); Calcium 8.5 mg/dL (8.4-10.2); Magnesium 2.2 mg/dL (1.6-2.3); Potassium 3.9 mmol/L (3.5-5.1); Total Bilirubin 0.8 mg/dL (0.2-1.3); Total Protein 5.6 g/dL (6.3-8.2)
[2019-11-21] MEDS ORDERED: POTASSIUM BICARBONATE/CIT AC 20 MEQ TABLET.EFF NG-TUBE SCH (06:00)
[2019-11-21] MEDS: FERROUS SULFATE ORAL ELIXIR 300 MG/5 ML CUP PO SCH ×2 (07:00→16:12)
[2019-11-21] MEDS: ASCORBIC ACID 500 MG TAB PO SCH ×2 (07:00→16:12)
[2019-11-21] MEDS: HEPARIN SODIUM,PORCINE 5,000 UNIT/ML 1 ML VIAL SQ SCH ×2 (07:00→16:12)
[2019-11-21] MEDS: PANTOPRAZOLE 40 MG TABLET PO SCH (07:00)
[2019-11-21] MEDS: CHERRY FLAVOR 60 ML BOTTLE PO SCH ×3 (07:00→17:01)
[2019-11-21] MEDS: VANCOMYCIN ORAL SOLUTION 250 MG/5 ML BOTTLE PO SCH ×3 (07:00→17:01)
--- NOTE | 2019-11-21 07:10 | XR ---
EXAMINATION TYPE: XR chest 1V portable DATE OF EXAM: 11/21/2019 HISTORY: post extubation. REFERENCE: Previous study dated 11/20/2019. FINDINGS: There has been a midline sternotomy. The patient's ET tube, NG tube and right internal jugu lar catheter remain in place, unchanged in appearance. The heart is mildly enlarged. There continues be vascular congestion and pulmonary edema. This appear s to have improved IMPRESSION: IMPROVING CHANGES OF PULMONARY EDEMA.
--- NOTE | 2019-11-21 08:09 | P.PN ---
Subjective Progress Note Date: 11/20/19 Principal diagnosis: Coronary artery disease and non-ST elevation myocardial infarction, status post 5 vessel bypass surgery 64-year-old male patient with coronary artery disease, noncompliant to medication. The patient came in with subendocardial infarction and cardiac catheterization showed diffuse coronary artery disease with critical stenosis. The patient underwent coronary artery bypass on 11/08/2019. The patient underwent bypass 5 with GR to LAD, radial artery graft to acute marginal, saphenous finger after 2 posterior lateral and sick ration saphenous vein to first and second diagonal performed on cardiac pulmonary bypass with beating heart. 11/20/19, patient is seen and evaluated in ICU; extubated yesterday. Patient is awake, follows very simple instructions, remains on 8 L high flow nasal cannula, O2 saturations 94%. Patient is hemodynamically stable not requiring any inotropes or pressors. Patient had an episode of A. fib with RVR yesterday and he received 2 boluses of amiodarone. Presently in normal sinus rhythm. Patient follows again simple instructions, but remains confused, oriented 1 to person. Continues to have Dobbhoff tube in place, and receiving enteral feeding. Remains on antibiotics in the form of Zosyn for presumptive aspiration. Laboratory review shows a white blood count of 20.5, hemoglobin 7.4; chemical profile significant for mild elevation in BUN of 36 Patient will continue to be monitored in ICU with empiric IV antibiotics; plan to wean off O2 as able; patient remains on aspirin, Plavix and Cardizem; diuretic therapy was continued Patient will remain on Dobbhoff tube feeding with plan to increase ambulation as possible Objective - Vital Signs Vital signs: Vital Signs Temp 98 F 11/20/19 00:00 Pulse 98 11/20/19 10:00 Resp 13 11/20/19 10:00 BP 111/79 11/20/19 10:00 Pulse Ox 94 L 11/20/19 10:00 Intake & Output 11/19/19 11/20/19 11/20/19 18:59 06:59 18:59 Intake Total 988 240 Output Total 1060 1270 Balance -72 -1030 Weight 91 kg 88.1 kg Intake: IV 226 132 .9NS @ 5ml/hr 60 60 Normal Saline Pressure 66 72 Bag Piperacillin-Tazobactam 3 100 .375 gm In Sodium Chloride 0.9% 100 ml @ 25 mls/hr IVPB Q8HR [facility] Rx# :[id number] Tube Feeding 702 108 Other 60 Output: Urine 1060 1270 Other: Voiding Method Indwelling Catheter Indwelling Catheter # Bowel Movements 1 ABP, PAP, CO, CI - Last Documented Arterial Blood Pressure 161/71 Pulmonary Artery Pressure 30/17 Cardiac Output 4.5 Cardiac Index 2.3 - Exam Head: Atraumatic, normocephalic, HEENT:[Neck is supple.] [No neck masses.] [No thyromegaly.] [No JVD.] Moist mucous membranes, PERRLA, EOMI, no icterus. Right IJ triple-lumen catheter is noted. Chest: Symmetrical chest expansion, crackles at the bases no rhonchi and no wheezes.] Cardiac Exam: [Normal S1 and S2, no S3 gallop, no murmur.] Abdomen: [Soft, nontender, no megaly, no rebound, no guarding, normal bowel sounds.] Extremities: [No clubbing, no edema, no cyanosis.] Neurological Exam: Awake, follows simple instructions, oriented 1. - Labs CBC & Chem 7: 11/21/19 04:22 11/21/19 04:22 Labs: Abnormal Lab Results - Last 24 Hours (Table) 11/19/19 11/19/19 11/19/19 Range/Units 04:57 10:32 11:51 WBC (3.8-10.6) k/uL RBC (4.30-5.90) m/uL Hgb (13.0-17.5) gm/dL Hct (39.0-53.0) % MCHC (31.0-37.0) g/dL RDW (11.5-15.5) % Neutrophils # (Manual) 10.11 H (1.3-7.7) k/uL Monocytes # (Manual) 1.06 H (0-1.0) k/uL Eosinophils # (Manual) 0.80 H (0-0.7) k/uL Myelocytes # (Manual) 0.13 H (0) k/uL ABG HCO3 29 H (21-25) mmol/L ABG Total CO2 30 H (19-24) mmol/L ABG O2 Saturation 97.7 H (94-97) % BUN (9-20) mg/dL Glucose (74-99) mg/dL POC Glucose (mg/dL) 154 H (75-99) mg/dL AST (17-59) U/L ALT (4-49) U/L Alkaline Phosphatase (38-126) U/L Total Protein (6.3-8.2) g/dL Albumin (3.5-5.0) g/dL 11/19/19 11/19/19 11/20/19 Range/Units 15:36 21:09 00:54 WBC (3.8-10.6) k/uL RBC (4.30-5.90) m/uL Hgb (13.0-17.5) gm/dL Hct (39.0-53.0) % MCHC (31.0-37.0) g/dL RDW (11.5-15.5) % Neutrophils # (Manual) (1.3-7.7) k/uL Monocytes # (Manual) (0-1.0) k/uL Eosinophils # (Manual) (0-0.7) k/uL Myelocytes # (Manual) (0) k/uL ABG HCO3 (21-25) mmol/L ABG Total CO2 (19-24) mmol/L ABG O2 Saturation (94-97) % BUN (9-20) mg/dL Glucose (74-99) mg/dL POC Glucose (mg/dL) 152 H 199 H 226 H (75-99) mg/dL AST (17-59) U/L ALT (4-49) U/L Alkaline Phosphatase (38-126) U/L Total Protein (6.3-8.2) g/dL Albumin (3.5-5.0) g/dL 11/20/19 11/20/19 11/20/19 Range/Units 04:16 04:18 04:18 WBC 20.5 H (3.8-10.6) k/uL RBC 2.46 L (4.30-5.90) m/uL Hgb 7.4 L (13.0-17.5) gm/dL Hct 24.1 L (39.0-53.0) % MCHC 30.5 L (31.0-37.0) g/dL RDW 16.5 H (11.5-15.5) % Neutrophils # (Manual) (1.3-7.7) k/uL Monocytes # (Manual) (0-1.0) k/uL Eosinophils # (Manual) (0-0.7) k/uL Myelocytes # (Manual) (0) k/uL ABG HCO3 (21-25) mmol/L ABG Total CO2 (19-24) mmol/L ABG O2 Saturation (94-97) % BUN 36 H (9-20) mg/dL Glucose 142 H (74-99) mg/dL POC Glucose (mg/dL) 166 H (75-99) mg/dL AST 151 H (17-59) U/L ALT 403 H (4-49) U/L Alkaline Phosphatase 251 H (38-126) U/L Total Protein 6.1 L (6.3-8.2) g/dL Albumin 3.3 L (3.5-5.0) g/dL Assessment and Plan Assessment: 1. Coronary artery disease and non-ST elevation myocardial infarction status post CABG 5, postoperative day #12 - Patient is status post successful extubation on 11/19/19. Patient remains on high flow nasal cannula oxygen with plans to titrate as able - Patient remains on empiric antibiotic therapy; cultures have been negative so far 2. Altered mental status most likely secondary to metabolic encephalopathy suspected, CVA, please refer to neurology evaluation. 3. New onset atrial fibrillation and RVR; remains rate controlled on Cardizem. 4. Type 2 diabetes; continue with Levemir 20 units subcu daily at bedtime; monitor Accu-Cheks every before meals and at bedtime with insulin sliding scale. 5. Peripheral vessel occlusive disease with prior peripheral stent placement. 6. Moderate severe COPD FEV1 of 60%; not in exacerbation; continue with bronchodilator nebulizer treatment and home inhaler therapy. 7. Acute kidney injury and acute shock liver secondary to hypotension, improving 8. DVT prophylaxis; subcu heparin CODE STATUS; full code Time with Patient: Greater than 30
[2019-11-21] MEDS: IPRATROPIUM-ALBUTEROL 3 ML NEB INHALATION SCH ×4 (08:16→21:15)
[2019-11-21 08:20] LABS: ABG HCO3 30 mmol/L (21-25); ABG PCO2 37 mmHg (35-45); ABG PH 7.51 (7.35-7.45); ABG PO2 123 mmHg (83-108); ABG TCO2 31 mmol/L (19-24)
[2019-11-21 08:21] LABS: Allen Test Performed? no
[2019-11-21] MEDS: CHLORHEXIDINE GLUCONATE 15 ML CUP MUCOUS MEM SCH ×2 (08:40→20:25)
[2019-11-21] MEDS: NYSTATIN 100,000 UNIT/ML SUSP 500,000 UNIT/5 ML CUP PO SCH ×4 (08:40→20:26)
[2019-11-21] MEDS: FUROSEMIDE 10 MG/ML 4 ML VIAL IV SCH ×2 (08:40→20:25)
[2019-11-21] MEDS: ATORVASTATIN 40 MG TAB PO SCH (08:40)
[2019-11-21] MEDS: ASPIRIN 325 MG TAB PO SCH (08:40)
[2019-11-21] MEDS: CLOPIDOGREL 75 MG TAB PO SCH (08:40)
[2019-11-21] MEDS: PIPERACILLIN-TAZOBACTAM 3.375 GM in SODIUM CHLORIDE 0.9% 100 ML IVPB SCH ×2 (08:40→16:11)
[2019-11-21 08:52] LABS: Glucose,Whole Blood 137 mg/dL (75-99)
[2019-11-21] MEDS: LOSARTAN 25 MG TAB PO SCH (08:53)
[2019-11-21] MEDS: METOPROLOL TARTRATE 50 MG TAB PO SCH (08:53)
--- NOTE | 2019-11-21 09:59 | P.PN ---
Subjective Progress Note Date: 11/21/19 Principal diagnosis: Symptomatic multivessel coronary artery disease, unstable angina, status post subendocardial myocardial infarction. Past medical history significant for CAD with previous stent placement to the proximal circumflex and ostial OM1, hypertension, hyperlipidemia, chronic ongoing tobacco dependence, mild COPD with preoperative FEV1 60% of predicted, right internal carotid artery stenosis 50- 69%, peripheral arterial disease with previous arthrectomy and PICK PACK WORKER of the left SFA, atherectomy and PICK PACK WORKER of the left SAILING OFFICER, with stenting of the left BRIAN, poorly controlled type 2 diabetes with preoperative hemoglobin A1c 9.1%, bladder cancer status post chemo and radiation, occasional marijuana use, medication noncompliance, and family history of premature coronary artery disease. POD #13 coronary artery bypass grafting 5 with GR to the LAD, left radial artery to the obtuse marginal coronary artery, a reverse greater saphenous vein to the posterior lateral coronary artery, sequential saphenous vein to the first and second diagonal coronary artery performed on cardiopulmonary bypass with beating heart. Endoscopic vein harvest of the left greater saphenous vein from the ankle to the groin. Endoscopic harvest of the left radial artery. Epi- aortic ultrasound and ligation of left atrial appendage with 40 mm AtriCure clip. Postoperative acute blood loss anemia, expected outcome given cardiopulmonary bypass and hemodilution. Postoperative encephalopathy, unexpected but potential outcome given cardiopulmonary bypass and intraoperative cardiac arrest. Postoperative new onset paroxysmal Afib with RVR, unexpected. Postoperative acute hypoxemic respiratory failure requiring reintubation, secondary to metabolic acidosis and hypotension. Postoperative stage II pressure ulcer on coccyx, unexpected. The patient was seen in follow-up today 11/21/2019 at his bedside in the intensive care unit. The patient developed some acute respiratory distress re quiring reintubation yesterday evening around 5:05 PM. Currently the patient remains intubated with mechanical ventilator support with oxygen saturations of 99% on an assist control 16, TV 450, FiO2 70% and a PEEP of 5. He is sedated on propofol drip at 40 mcg/kg/m and is not following any verbal commands at this time although withdrawals from noxious stimuli. Dopamine drip is infusing at 2.4 mcg/kg/m. Dobbhoff tube remains in place with continuous tube feeding running at 75 mL an hour of Glucerna with 30 mL every 4 hours automatic water flushes. Due to his acute respiratory distress CTA of his chest was completed which demonstrated no evidence of pulmonary embolism, although showed large pleural effusions with extensive infiltrates and atelectasis that could relate to chronic congestive heart failure. T-max temperature in the last 24 hours was 100.6F. Laboratory results this morning show his WBC count trending down at 15.2, hemoglobin 7.0, lately 377, BUN 39, creatinine 1.26, AST 80 and ALT 312. The patient remains with a FMS in place with diarrhea, he was empirically start ed on vancomycin per his Dobbhoff tube yesterday for concerns of C. diff as his white count was trending to 20.5. He was having episodes of atrial fibrillation yesterday with RVR, his beta gaurav has metoprolol tartrate has been increased to 50 mg 3 times a day by cardiology and his Cardizem is on hold at this time. Currently the bedside monitor showing normal sinus rhythm heart rate 86 BPM. A trial and ventricular epicardial pacemaker wires remain in place and are connected to back up to bedside pacemaker generator on an AAI of 50. Objective - Vital Signs Vital signs: Vital Signs Temp 99.6 F 11/21/19 08:00 Pulse 90 11/21/19 08:26 Resp 24 11/21/19 08:00 BP 113/64 11/21/19 07:00 Pulse Ox 99 11/21/19 08:00 Intake & Output 11/20/19 11/21/19 11/21/19 18:59 06:59 18:59 Intake Total 4572.246 4945.327 182 Output Total 1680 1580 120 Balance -389.667 -215.673 62 Weight 88.1 kg Intake: IV 341 266 32 .9NS @ 10 ml/hr 45 100 20 Diltiazem 125 mg In 30 Sodium Chloride 0.9% 100 ml @ 10 MG/HR 10 mls/hr IV .[id number] [facility] Rx#: [id number] Normal Saline Pressure 66 66 12 Bag Piperacillin-Tazobactam 3 200 100 .375 gm In Sodium Chloride 0.9% 100 ml @ 25 mls/hr IVPB Q8HR [facility] Rx# :[id number] Intake, IV Titration 34.333 138.327 Amount DOPamine DRIP 800 mg In 3.401 Dextrose/Water 1 250ml. bag @ 2 MCG/KG/MIN 3.304 mls/hr IV .Q24H [facility] Rx#: [id number] Diltiazem 125 mg In 34.333 Sodium Chloride 0.9% 100 ml @ 10 MG/HR 10 mls/hr IV .[id number] [facility] Rx#: [id number] propofoL 1,000 mg In 134.926 Empty Bag 1 bag @ Titrate IV .Q0M [facility] Rx#: [id number] Tube Feeding 825 900 150 Other 90 60 Output: Urine 1680 1080 120 Urine/Stool Mix 500 Other: Voiding Method Indwelling Catheter Indwelling Catheter ABP, PAP, CO, CI - Last Documented Arterial Blood Pressure 124/55 Pulmonary Artery Pressure 30/17 Cardiac Output 4.5 Cardiac Index 2.3 - Constitutional Constitutional Comment(s): The patient is currently sedated with propofol drip at 40 mcg/kg/m. - EENT Eyes: Present: PERRLA, poor dentition. Absent: scleral icterus - Neck Details: Neck is supple, no JVD, right IJ triple-lumen catheter remains in place. - Respiratory Details: Lung sounds are diminished to his bilateral bases, essentially clear to his bilateral upper lobes. No wheezes, rhonchi or crackles. Respirations are symmetrical and nonlabored with mechanical ventilator support, current mechanical ventilator settings are as follows: Assist control 16, TV 450, FiO2 70%, PEEP 5 and oxygen saturation 99%. - Cardiovascular Details: Regular rhythm and rate. S1 and S2 present, negative for S3, gallop or murmur. Sternum is stable. +1 generalized edema. Heart hugger is in place. Knee-high ELSIE hose and sequential compression devices in place to his bilateral lower extremities. Atrial and ventricular epicardial pacemaker wires are in place and connected to back up bedside pacemaker generator on an AAI of 50. Bedside telemetry showing normal sinus rhythm heart rate 86. - Gastrointestinal Gastrointestinal Comment(s): Abdomen is soft, and nondistended. Active bowel sounds present in all 4 abdomin al quadrants. No guarding or rigidity. No organomegaly appreciated. Dobbhoff tube remains in place with continuous tube feeding with Glucerna at 75 mL per hour with automatic water flushes of 30 mL every 4 hours. - Genitourinary Genitourinary Comment(s): Newman catheter for accurate I&O. Draining clear rachana urine with occasional sentiment. Urine output 935 mL in the last 8 hours. - Integumentary Integumentary Comment(s): Skin is warm and dry. No clubbing or cyanosis is present. Midline sternal incision is clean, dry and approximated. No drainage or redness is present. Gauze dressing is clean and dry. Left lower extremity EVH sites are clean, dry and approximated. No drainage or redness is present. Left radial artery harvest sites are clean, dry and approximated. No drainage or redness is presen t. Some scattered ecchymotic areas to his left thigh and left forearm. Soft and nontender to touch. Palpable ulnar pulse to his left arm. Stage II pressure ulcer to his coccyx area with optifoam clean dry and in place. - Neurologic Neurologic Comment(s): The patient is currently sedated with propofol drip at 40 mcg/kg/m. Could not assess due to the sedation. - Musculoskeletal Musculoskeletal: Present: generalized weakness - Psychiatric Psychiatric Comment(s): The patient is currently sedated with propofol drip at 40 mcg/kg/m. Could not assess due to the sedation. - Allied health notes Allied health notes reviewed: nursing - Labs CBC & Chem 7: 11/21/19 04:22 11/21/19 04:22 Labs: Abnormal Lab Results - Last 24 Hours (Table) 11/20/19 11/20/19 11/20/19 Range/Units 12:11 15:56 16:44 WBC (3.8-10.6) k/uL RBC (4.30-5.90) m/uL Hgb (13.0-17.5) gm/dL Hct (39.0-53.0) % RDW (11.5-15.5) % ABG pH 7.53 H (7.35-7.45) ABG pCO2 33 L (35-45) mmHg ABG pO2 46 L* (83-108) mmHg ABG HCO3 27 H (21-25) mmol/L ABG Total CO2 28 H (19-24) mmol/L ABG O2 Saturation 83.1 L (94-97) % BUN (9-20) mg/dL Creatinine (0.66-1.25) mg/dL Glucose (74-99) mg/dL POC Glucose (mg/dL) 137 H 154 H (75-99) mg/dL AST (17-59) U/L ALT (4-49) U/L Alkaline Phosphatase (38-126) U/L Total Protein (6.3-8.2) g/dL Albumin (3.5-5.0) g/dL 11/20/19 11/20/19 11/21/19 Range/Units 18:15 21:47 00:52 WBC (3.8-10.6) k/uL RBC (4.30-5.90) m/uL Hgb (13.0-17.5) gm/dL Hct (39.0-53.0) % RDW (11.5-15.5) % ABG pH 7.50 H (7.35-7.45) ABG pCO2 34 L (35-45) mmHg ABG pO2 201 H (83-108) mmHg ABG HCO3 26 H (21-25) mmol/L ABG Total CO2 27 H (19-24) mmol/L ABG O2 Saturation 99.7 H (94-97) % BUN (9-20) mg/dL Creatinine (0.66-1.25) mg/dL Glucose (74-99) mg/dL POC Glucose (mg/dL) 144 H 180 H (75-99) mg/dL AST (17-59) U/L ALT (4-49) U/L Alkaline Phosphatase (38-126) U/L Total Protein (6.3-8.2) g/dL Albumin (3.5-5.0) g/dL 11/21/19 11/21/19 11/21/19 Range/Units 04:22 04:22 04:24 WBC 15.2 H (3.8-10.6) k/uL RBC 2.21 L (4.30-5.90) m/uL Hgb 7.0 L (13.0-17.5) gm/dL Hct 22.0 L (39.0-53.0) % RDW 16.5 H (11.5-15.5) % ABG pH (7.35-7.45) ABG pCO2 (35-45) mmHg ABG pO2 (83-108) mmHg ABG HCO3 (21-25) mmol/L ABG Total CO2 (19-24) mmol/L ABG O2 Saturation (94-97) % BUN 39 H (9-20) mg/dL Creatinine 1.26 H (0.66-1.25) mg/dL Glucose 117 H (74-99) mg/dL POC Glucose (mg/dL) 140 H (75-99) mg/dL AST 80 H (17-59) U/L ALT 312 H (4-49) U/L Alkaline Phosphatase 208 H (38-126) U/L Total Protein 5.6 L (6.3-8.2) g/dL Albumin 2.9 L (3.5-5.0) g/dL 11/21/19 Range/Units 08:19 WBC (3.8-10.6) k/uL RBC (4.30-5.90) m/uL Hgb (13.0-17.5) gm/dL Hct (39.0-53.0) % RDW (11.5-15.5) % ABG pH 7.51 H (7.35-7.45) ABG pCO2 (35-45) mmHg ABG pO2 123 H (83-108) mmHg ABG HCO3 30 H (21-25) mmol/L ABG Total CO2 31 H (19-24) mmol/L ABG O2 Saturation 99.0 H (94-97) % BUN (9-20) mg/dL Creatinine (0.66-1.25) mg/dL Glucose (74-99) mg/dL POC Glucose (mg/dL) (75-99) mg/dL AST (17-59) U/L ALT (4-49) U/L Alkaline Phosphatase (38-126) U/L Total Protein (6.3-8.2) g/dL Albumin (3.5-5.0) g/dL - Imaging and Cardiology Chest x-ray: report reviewed, image reviewed Assessment and Plan Assessment: 1. Symptomatic multivessel coronary artery disease, recent non-STEMI, status post 5 vessel CABG 2. Leukocytosis, unknown origin, may be reactive 3. Previous stent placement to the proximal circumflex and ostial OM1 4. History of hypertension 5. History of hyperlipidemia 6. Chronic ongoing tobacco dependence 7. Mild COPD, preoperative FEV1 60% of predicted value 8. Right internal carotid artery stenosis 50-69% 9. History of peripheral arterial disease with previous arthrectomy and PICK PACK WORKER of the left SFA and atherectomy and PICK PACK WORKER of the left SAILING OFFICER with stenting of the left BRIAN 10. Poorly controlled diabetes mellitus type 2, admission hemoglobin A1c 9.1% 11. History of bladder cancer status post radiation, chemotherapy treatment and bladder surgery 12. Occasional marijuana use 13. Medication noncompliance 14. Family history of early onset coronary artery disease 15. Postoperative acute blood loss anemia, expected 16. Postoperative confusion, unexpected 17. Mild ISAAC, creatinine today 1.46 yesterday 1.44 18. New onset Afib with RVR, status post left atrial appendage ligation 19. New onset hematuria from patient pulling at newman catheter 20. Postoperative acute hypoxic respiratory failure requiring reintubation, secondary to metabolic acidosis and hypotension 21. Elevated transaminase levels, secondary to hypotension, trending down 22. Postoperative stage II pressure ulcer, coccyx Plan: 1. Continue aspirin, Plavix and statin and beta gaurav. Decrease metoprolol titrate to 25 mg per Dobbhoff tube twice a day, continue to utilize hold parameters on his beta gaurav. 2. Continue dopamine at 2.4 mcg/kg/m. 3. Cozaar and Cardizem has been discontinued. 4. Keep Newman catheter in place for accurate I&O. Newman catheter was changed on 11/14/2019. 5. Mechanical ventilator management per pulmonary/critical care medicine recommendations. 6. Continued Dobbhoff tube with tube feedings Glucerna infusing at 75 mL per hour with 30 mL every 4 hours of water flushes. Per dietitian's recommendations. 7. Will monitor daily labs and chest x-rays. Electrolyte replacement per protocol. 8. Continue Tylenol for pain management, hold narcotics and toradol. 9. GI/DVT prophylaxis. 10. Insulin management per primary care service. 11. Continue Lasix 40 mg IV twice a day. 12. Nursing staff to assist with passive range of motion and turning the patient every 2 hours and when necessary. 13. Continue to avoid nephrotoxic agents. 14. Keep atrial and ventricular epicardial pacemaker wires in place and connected to a backup pacemaker generator with a AAI of 50. 15. Infectious disease is following for antibiotic management. Currently on Zosyn IV piggyback and per Dobbhoff vancomycin. WBC count trending down today at 15.2. 16. Start amiodarone 200 mg per Dobbhoff tube twice a day for atrial fibrillation prophylaxis. 17. May need bilateral thoracentesis or chest tube placement for pleural effusions. 18. More recommendations to follow based on patient's clinical course. Time with Patient: Greater than 30
[2019-11-21 11:39] LABS: Glucose,Whole Blood 119 mg/dL (75-99)
--- NOTE | 2019-11-21 13:39 | P.PN ---
Subjective Progress Note Date: 11/21/19 Principal diagnosis: Coronary artery disease and non-ST elevation myocardial infarction, status post 5 vessel bypass surgery postoperative day #13 This is a 64-year-old male patient with coronary artery disease, noncompliant to medication. The patient came in with subendocardial infarction and cardiac catheterization showed diffuse coronary artery disease with critical stenosis. The patient underwent coronary artery bypass today. The patient underwent bypass 5 with GR to LAD, radial artery graft to acute marginal, saphenous finger after 2 posterior lateral and sick ration saphenous vein to first and second diagonal performed on cardiac pulmonary bypass with beating heart. On 11/13/2019, the patient is being seen for a follow-up. The patient had significant events on the second day post extubation and all of these events were noted and I was able to participate in his care as the patient's condition got worse yesterday afternoon. The patient became progressively more tachypneic and his blood gases was repeated and it was noted that the patient had signif icant amount of metabolic acidosis with respiratory compensation. Ultimately, the patient became progressively more fatigued and went into respiratory failure. He became briefly hypoxic and had a bout of bradycardia and his blood pressure also subsequently dropped. At that point, the patient was started immediately on fluid resuscitation. Lasix was already discontinued. During the process, the patient received a total of 500 mL of albumin 5% 3, received bicarb infusion on multiple occasions total of 4 episodes of sodium bicarb was given for severe metabolic acidosis. Note that his lactic acid level was as high as 11. Following that, the patient was placed on a sodium bicarb infusion with 150 mEq of sodium bicarbonate there was running at 75 mL an hour. Lactic acid level came from 11.8 down to 1.5. He had to be intubated and placed on a mechanical ventilator. He was also requiring pressors with was running as high as 3 g per minute and currently is off the pressors. This morning, the patient is on a mechanical ventilator on assist control mode at the rate of 24 with a t idal volume of 450 and an FiO2 of 50% with a PEEP of 5. Urine output is order of 20-40 mL an hour. The blood gases from today showed a pH of 7.53 with a pCO2 of 31 and pO2 of 145. The chest x-ray shows some mild pulmonary vascular congestion and some subpulmonic pleural effusions bilaterally. The patient is well sedated with propofol and the patient is calm and comfortable. He is afebrile. As for the blood work, the white cell causative 18.7. The creatinine came up to 1.6 and currently is down to 1.4. The serum bicarbs at 28. Note that the chest tubes are already out for now. The patient has a Junior catheter in place and urine output has been approximately 240 mL's over the past 8 hours. The atrial and ventricular epicardial pacemaker wires remain in place. The bedside pacemaker generator is on a AAI mode with a rate of 70 and the underlying rhythm is sinus bradycardia. The patient has no other arrhythmias noted. On 11/14/2019, the patient is being seen for a follow-up in the intensive care unit. The patient remains sedated and the patient is calm comfortable on propo fol at 40 g per KG per minute. Noted the patient remains on a mechanical ventilator. The ventilator today is set at a tidal volume of 450 with a rate of 16 FiO2 of 40% with a PEEP of 5. Blood gas show a pH of 7.48 with a pCO2 of 32 and pO2 of 114. Chest x-ray showing bilateral pleural effusion which is gotten slightly worse compared to yesterday. The patient remains having a lower CVP of 6. Cardiac rhythm is sinus. The patient is receiving vital high protein at the rate of 30 mL's an hour. The patient is also on D5 half-normal saline running at 30 mL an hour. White cell count is elevated. Nevertheless the lactic acidosis improved. The patient was receiving IV Zosyn and dose of vancomycin was also given by cardiothoracic surgery. Creatinine is still elevated at 1.46. Hemoglobin stable at 7.7. The patient is arousable. The patient was taken off sedation and took approximately 4 hours for him to wake up and follows some simple commands. Nevertheless, he became tachypneic and his progress and we had to abort the sedation holiday. He is producing adequate amount of urine output. He was given a dose of Lasix earlier by the surgical team and the patient was thought to be in some fluid overload special with development of bilateral pleural effusions. No other significant events otherwise for now. Patient was reevaluated today on 11/15/19, remains in the ICU, intubated and mechanically ventilated. His ventilator settings are assist control rate of 16 tidal volume is 450 FiO2 is 40% PEEP is 5. ABG showed a pO2 of 80 pCO2 of 32 pH of 7.47. Patient is status post CABG 5, postoperative day #7. He remains on norepinephrine at 0.03 mcg/kg/m, propofol at 50 mcg/kg/m. Chest x-ray is clearly showing evidence of pulmonary edema, difficult to rule out underlying p neumonia, but this is felt to be less likely. Patient was given a sedation holiday today, and could not be tolerated, patient was extremely tachypneic and tachycardic off sedation. Patient has a Dobbhoff tube in place, and he is on enteral feeding. Feeding is at goal. Today after evaluating the patient, and recommended Lasix at 40 mg IV push every 12 hours, chest x-ray is clearly consistent with pulmonary edema. Electrolytes unremarkable, BUN is 35 creatinine is 1.27, improved compared to the last few days. Liver enzymes are abnormal, patient apparently had what seemed to be a shocked liver. Patient was reevaluated today on 11/16/19, remains in the ICU, intubated and mechanically ventilated. He is on assist control rate of 16 tidal volume is 450 FiO2 is 40% and PEEP is 5. ABG showed a pO2 of 94 pCO2 of 34 pH of 7.48. Chest x-ray continues to show evidence of pulmonary vascular congestion and small to moderate bilateral pleural effusions. However ultrasound of the chest failed to show significant pleural effusion that would warrant thoracentesis. And no markings were placed. Patient remains on diuretics, Lasix 40 mg IV push every 12 hours. I believe the chest x-ray showed slight improvement compared to yesterday. Patient fluid balance is -870 mL. Liver profile is improving. Patient remains on cefepime and vancomycin. Patient is also on enteral feeding. And he is on propofol at 50 mcg/kg/m. I plan today to at least give the patient a sedation holiday, assess mental status, and possibly assess weaning parameters although the patient is not ready for weaning, ABG remains marginal, and his chest x-ray is quite abnormal. On 11/17/2019 patient seen in follow-up in the intensive care unit, she is sedated, intubated, on mechanical ventilator, current vent settings are assist- control with a rate of 16, tidal and was 450, FiO2 is 40%, and PEEP of 5. This morning his blood gases reveal pO2 of 92, pCO2 34, pH is 7.47. Current IV drips include 0.9 normal saline at a rate of 5 ML per hour, and improving and is at 60 mics per kilo per minute, tube feedings are with vital high-protein at a rate of 54, with a goal of 54 with standard water flushes with 30 mL of water every 4 hours. Patient was given daily traction of sedation yesterday, he awoke, and reportedly follow commands, but quickly became very tachypneic and hypertensive and had to be placed back on mechanical ventilator. His chest x-ray shows stable findings, persistent central vascular congestion and bibasilar opacities. Small to moderate-sized bilateral pleural effusions, appear to be stable. Patient remains on IV Lasix at 40 mg every 12 hours, and he is very slightly negative, only 6 mL, however he did produced over 3 L in urine output in the last 24 hours. He is off the vasopressor support, his weight is stable, he does have some generalized edema involving his upper and lower extremities. Remains on empiric antibiotics in the form of cefepime and vancomycin. He is afebrile, his blood urine and sputum cultures have shown no growth thus far. Today's labs have been reviewed. His white blood cell is stable at 15, hemoglobin is 7.7, sodium is 136, the rest of electrolytes were within normal limits, B1 is 33, and creatinine is 1.04, his liver enzymes are coming down, AST is down to 130, ALT is 692, alk phos is fairly stable at 195, his pro-calcitonin level was elevated and 0.99, suggesting presence of bacterial infection. Patient has been afebrile, abdomen is soft, nontender, patient is tolerating tube feedings. His hematuria has cleared up. On 11/18/2019 patient seen in follow-up in the intensive care unit. Patient is still intubated, his sedation has been on hold since 7:00 this morning, patient is awake, he is following basic commands, squeezing with his left hand, however his right hand is flaccid, and patient is not able to squeeze with the right h and. His current vent settings are assist-control with a rate of 16, tidal volume is 450, FiO2 is 40%, and PEEP of 5. This is blood gases showed pO2 106, pCO2 35, and pH of 7.49. Currently on no drips other than 0.9 normal saline at a rate of KVO. Patient has been tolerating tube feedings. Yesterday we repeated his CT of the brain which showed no evidence of acute hemorrhage, areas of patchy low attenuation in the left parietal white matter previously noted on previous brain scan this could be on the basis of subacute ischemia. MRI of the brain was recommended, neurology consultation was requested and patient is suspected to have probable subacute stroke involving multiple patchy areas in the left MCA vascular territory consideration of cardioembolic source. Patient did have transient atrial fibrillation. Follow-up MRI and MRA of the brain will be done once the patient is extubated and is able to travel down to the MRI department. Today's chest x-ray shows diffuse bilateral pleural parenchymal changes, no pneumothorax. Consider pulmonary edema, or underlying pneumonia. So far blood and urine and sputum cultures remain negative. Patient is afebrile, hemodynamically he stable, empiric antibiotic coverage is with Zosyn, vancomycin has been discontinued, ID service is following. Patient is on IV Lasix at 40 mg every 12 hours. He has produced 2.7 L and urine output over last 24 hours, he is in -280 mL fluid balance. He seems to get slightly agitated at times, becomes hypertensive, today she is following commands, we will try to keep him off sedation, to fully assess his mentation and neurological status, we will repeat LFTs, and ammonia level. Patient was reevaluated today on 11/19/19, remains in the intensive care unit, off sedation, patient is following simple instructions, he had a good gag reflex according to rest today therapy when the patient was suctioned. Patient remains on the same ventilator settings as yesterday, FiO2 is 40% PEEP is 5, volume is 450 rate of 16. ABG showed a pO2 of 88 pCO2 of 35 pH of 7.50. Chest x-ray is showing improvement in his by basilar opacities. And his ABG is relatively acceptable. Hence I went ahead and recommended that the patient goes on pressure support of 8 and CPAP, and an hour later his repeat ABG on CPAP showed a pO2 of 94 pCO2 of 42 pH of 7.44 hence proceeded to extubating the patient. In the meantime I have recommended that we continue present antibiotics and bronchodilators as well as diuretics. Reevaluated today on 11/20/19, patient was extubated yesterday, and he tolerated the extubation quite well. Patient is awake, follows very simple instructions, remains on 8 L high flow nasal cannula, O2 saturations 94%. Patient is hemodynamically stable not requiring any inotropes or pressors. CVP is about 8, had an episode of A. fib with RVR yesterday and he received 2 boluses of amiodarone. Presently in normal sinus rhythm. Patient follows again simple instructions, but remains confused, oriented 1 to person. Continues to have Dobbhoff tube in place, and receiving enteral feeding. Remains on antibiotics in the form of Zosyn for presumptive aspiration. Patient was reevaluated today on 11/21/19, yesterday in the afternoon, patient developed respiratory distress, required reintubation. Apparently the patient developed atrial fibrillation with RVR, treated with multiple meds including Cardizem drip, and his metoprolol was increased to 50 mg 3 times a day. Patient went on to develop pulmonary edema, significant bradycardia, required reintubation and dopamine drip at 2.4 mcg/kg/m. He is now back on mechanical ventilation. And his ventilator settings are tidal volume of 450 FiO2 is 50% assist control rate of 16 and PEEP of 5. Patient is on propofol at present he is also on dopamine, and on Glucerna. His ABG showed a pO2 of 123 pCO2 of 37 pH of 7.5. Patient remains empirically on Zosyn. CT angiogram of the chest showed no evidence of pulmonary embolism. Presently the patient is sedated, and in no distress. Chest x-ray is showing improving pulmonary edema compared to yesterday. Objective - Vital Signs Vital signs: Vital Signs Temp 99.0 F 11/21/19 12:00 Pulse 90 11/21/19 12:52 Resp 16 11/21/19 12:30 BP 113/64 11/21/19 07:00 Pulse Ox 99 11/21/19 12:30 Intake & Output 11/20/19 11/21/19 11/21/19 18:59 06:59 18:59 Intake Total 9633.324 0545.536 740.071 Output Total 1680 1580 845 Balance -389.667 -179.464 -104.929 Weight 88.1 kg Intake: IV 341 266 176 .9NS @ 10 ml/hr 45 100 40 Diltiazem 125 mg In 30 Sodium Chloride 0.9% 100 ml @ 10 MG/HR 10 mls/hr IV .[id number] [facility] Rx#: [id number] Normal Saline Pressure 66 66 36 Bag Piperacillin-Tazobactam 3 200 100 100 .375 gm In Sodium Chloride 0.9% 100 ml @ 25 mls/hr IVPB Q8HR [facility] Rx# :[id number] Intake, IV Titration 34.333 174.536 159.071 Amount DOPamine DRIP 800 mg In 3.401 58.637 Dextrose/Water 1 250ml. bag @ 2 MCG/KG/MIN 3.304 mls/hr IV .Q24H [facility] Rx#: [id number] Diltiazem 125 mg In 34.333 Sodium Chloride 0.9% 100 ml @ 10 MG/HR 10 mls/hr IV .[id number] [facility] Rx#: [id number] propofoL 1,000 mg In 171.135 100.434 Empty Bag 1 bag @ Titrate IV .Q0M [facility] Rx#: [id number] Tube Feeding 825 900 375 Other 90 60 30 Output: Urine 1680 1080 845 Urine/Stool Mix 500 Other: Voiding Method Indwelling Catheter Indwelling Catheter Indwelling Catheter ABP, PAP, CO, CI - Last Documented Arterial Blood Pressure 124/52 Pulmonary Artery Pressure 30/17 Cardiac Output 4.5 Cardiac Index 2.3 - Exam Physical Exam: Revealed a 64-year-old white male on mechanical ventilation, sedated, in no distress. Head: Atraumatic, normocephalic, endotracheal tube and Dobbhoff tubes are intact. HEENT:[Neck is supple.] [No neck masses.] [No thyromegaly.] [No JVD.] Moist mucous membranes, PERRLA, EOMI, no icterus. Right IJ triple-lumen catheter is noted. Chest: Symmetrical chest expansion, crackles at the bases no rhonchi and no wheezes.] Cardiac Exam: [Normal S1 and S2, no S3 gallop, no murmur.] Abdomen: [Soft, nontender, no megaly, no rebound, no guarding, normal bowel sounds.] Extremities: [No clubbing, no edema, no cyanosis.] Neurological Exam: Could not be assessed, patient was placed on propofol, no plan to hold sedation today. Psychiatric: Could not be assessed Skin: No rashes. Lymphatics: No lymphadenopathy. - Labs CBC & Chem 7: 11/21/19 04:22 11/21/19 04:22 Labs: Abnormal Lab Results - Last 24 Hours (Table) 11/20/19 11/20/19 11/20/19 Range/Units 15:56 16:44 18:15 WBC (3.8-10.6) k/uL RBC (4.30-5.90) m/uL Hgb (13.0-17.5) gm/dL Hct (39.0-53.0) % RDW (11.5-15.5) % ABG pH 7.53 H 7.50 H (7.35-7.45) ABG pCO2 33 L 34 L (35-45) mmHg ABG pO2 46 L* 201 H (83-108) mmHg ABG HCO3 27 H 26 H (21-25) mmol/L ABG Total CO2 28 H 27 H (19-24) mmol/L ABG O2 Saturation 83.1 L 99.7 H (94-97) % BUN (9-20) mg/dL Creatinine (0.66-1.25) mg/dL Glucose (74-99) mg/dL POC Glucose (mg/dL) 154 H (75-99) mg/dL AST (17-59) U/L ALT (4-49) U/L Alkaline Phosphatase (38-126) U/L Total Protein (6.3-8.2) g/dL Albumin (3.5-5.0) g/dL 11/20/19 11/21/19 11/21/19 Range/Units 21:47 00:52 04:22 WBC 15.2 H (3.8-10.6) k/uL RBC 2.21 L (4.30-5.90) m/uL Hgb 7.0 L (13.0-17.5) gm/dL Hct 22.0 L (39.0-53.0) % RDW 16.5 H (11.5-15.5) % ABG pH (7.35-7.45) ABG pCO2 (35-45) mmHg ABG pO2 (83-108) mmHg ABG HCO3 (21-25) mmol/L ABG Total CO2 (19-24) mmol/L ABG O2 Saturation (94-97) % BUN (9-20) mg/dL Creatinine (0.66-1.25) mg/dL Glucose (74-99) mg/dL POC Glucose (mg/dL) 144 H 180 H (75-99) mg/dL AST (17-59) U/L ALT (4-49) U/L Alkaline Phosphatase (38-126) U/L Total Protein (6.3-8.2) g/dL Albumin (3.5-5.0) g/dL 11/21/19 11/21/19 11/21/19 Range/Units 04:22 04:24 08:19 WBC (3.8-10.6) k/uL RBC (4.30-5.90) m/uL Hgb (13.0-17.5) gm/dL Hct (39.0-53.0) % RDW (11.5-15.5) % ABG pH 7.51 H (7.35-7.45) ABG pCO2 (35-45) mmHg ABG pO2 123 H (83-108) mmHg ABG HCO3 30 H (21-25) mmol/L ABG Total CO2 31 H (19-24) mmol/L ABG O2 Saturation 99.0 H (94-97) % BUN 39 H (9-20) mg/dL Creatinine 1.26 H (0.66-1.25) mg/dL Glucose 117 H (74-99) mg/dL POC Glucose (mg/dL) 140 H (75-99) mg/dL AST 80 H (17-59) U/L ALT 312 H (4-49) U/L Alkaline Phosphatase 208 H (38-126) U/L Total Protein 5.6 L (6.3-8.2) g/dL Albumin 2.9 L (3.5-5.0) g/dL 11/21/19 11/21/19 Range/Units 08:50 11:37 WBC (3.8-10.6) k/uL RBC (4.30-5.90) m/uL Hgb (13.0-17.5) gm/dL Hct (39.0-53.0) % RDW (11.5-15.5) % ABG pH (7.35-7.45) ABG pCO2 (35-45) mmHg ABG pO2 (83-108) mmHg ABG HCO3 (21-25) mmol/L ABG Total CO2 (19-24) mmol/L ABG O2 Saturation (94-97) % BUN (9-20) mg/dL Creatinine (0.66-1.25) mg/dL Glucose (74-99) mg/dL POC Glucose (mg/dL) 137 H 119 H (75-99) mg/dL AST (17-59) U/L ALT (4-49) U/L Alkaline Phosphatase (38-126) U/L Total Protein (6.3-8.2) g/dL Albumin (3.5-5.0) g/dL Microbiology - Last 24 Hours (Table) 11/21/19 12:40 Sputum Culture - Preliminary Sputum Assessment and Plan Assessment: Impression: Coronary artery disease and non-ST elevation myocardial infarction status post CABG 5, postoperative day #13 Status post successful extubation on 11/18/19. Patient was reintubated on 11/19 mostly because of worsening pulmonary edema related to atrial fibrillation with RVR followed by profound bradycardia. Patient has been extubated and reintubate d twice so far Postoperative respiratory failure requiring reintubation mostly because of progressive lactic acidosis and metabolic acidosis with hypotension and evidence of pulmonary edema. Not expected. Exact etiology is not clear, antibiotics were given empirically. Cultures have all been negative. Altered mental status most likely secondary to metabolic encephalopathy suspected, CVA, please refer to neurology evaluation. New onset atrial fibrillation and RVR. Type 2 diabetes. Peripheral vessel occlusive disease with prior peripheral stent placement. Moderate severe COPD FEV1 of 60% at baseline. History of marijuana smoking. Acute kidney injury and acute shock liver secondary to hypotension, improving History of bladder cancer and previous radiation/chemotherapy with subsequent s urgery. Recommendation: Continue ventilatory support. Continue nutritional support. Hemodynamic support if necessary. Continue empiric antibiotics. Continue statins aspirin and Plavix. Continue diuretics. Continue propofol per Continue GI and DVT prophylaxis Avoid nephrotoxic drugs. We'll continue to follow Discussed condition with cardiac surgery on the case. Critical care time is 34 minutes Time with Patient: Greater than 30
--- NOTE | 2019-11-21 13:57 | P.PN ---
Subjective Patient had to be intubated once again on account of respiratory failure He is undergone coronary artery bypass grafting and had a prolonged period of intubation. He was extubated on Friday But he had to be reintubated once again His last 2-D echo showed ejection fraction of 50-55% His chest CT shows extensive pleural effusions and infiltrates and possibly atelectasis He remains in atrial fibrillation Breath sounds are reduced bilaterally with crackles at the bases Heart sounds. Irregular no murmurs Impression Coronary artery disease status post coronary artery bypass grafting, acute CA in this hospitalization Recurrent respiratory distress His LV function is near normal based upon echo about a week back He is bilateral pleural effusions I doubt if his drugs caused his deterioration He was tachycardic yesterday and hence rate control medications are used Suggest Thoracentesis would be beneficial I will repeat his echo tomorrow to see his LV function is still preserved or not Continue amiodarone Objective - Vital Signs Vital signs: Vital Signs Temp 99.0 F 11/21/19 12:00 Pulse 90 11/21/19 12:52 Resp 16 11/21/19 12:30 BP 113/64 11/21/19 07:00 Pulse Ox 99 11/21/19 12:30 Intake & Output 11/20/19 11/21/19 11/21/19 18:59 06:59 18:59 Intake Total 1867.418 9028.536 740.071 Output Total 1680 1580 845 Balance -389.667 -179.464 -104.929 Weight 88.1 kg Intake: IV 341 266 176 .9NS @ 10 ml/hr 45 100 40 Diltiazem 125 mg In 30 Sodium Chloride 0.9% 100 ml @ 10 MG/HR 10 mls/hr IV .[id number] [facility] Rx#: [id number] Normal Saline Pressure 66 66 36 Bag Piperacillin-Tazobactam 3 200 100 100 .375 gm In Sodium Chloride 0.9% 100 ml @ 25 mls/hr IVPB Q8HR [facility] Rx# :[id number] Intake, IV Titration 34.333 174.536 159.071 Amount DOPamine DRIP 800 mg In 3.401 58.637 Dextrose/Water 1 250ml. bag @ 2 MCG/KG/MIN 3.304 mls/hr IV .Q24H [facility] Rx#: [id number] Diltiazem 125 mg In 34.333 Sodium Chloride 0.9% 100 ml @ 10 MG/HR 10 mls/hr IV .[id number] [facility] Rx#: [id number] propofoL 1,000 mg In 171.135 100.434 Empty Bag 1 bag @ Titrate IV .Q0M [facility] Rx#: [id number] Tube Feeding 825 900 375 Other 90 60 30 Output: Urine 1680 1080 845 Urine/Stool Mix 500 Other: Voiding Method Indwelling Catheter Indwelling Catheter Indwelling Catheter ABP, PAP, CO, CI - Last Documented Arterial Blood Pressure 124/52 Pulmonary Artery Pressure 30/17 Cardiac Output 4.5 Cardiac Index 2.3 - Labs CBC & Chem 7: 11/21/19 04:22 11/21/19 04:22 Labs: Abnormal Lab Results - Last 24 Hours (Table) 11/20/19 11/20/19 11/20/19 Range/Units 15:56 16:44 18:15 WBC (3.8-10.6) k/uL RBC (4.30-5.90) m/uL Hgb (13.0-17.5) gm/dL Hct (39.0-53.0) % RDW (11.5-15.5) % ABG pH 7.53 H 7.50 H (7.35-7.45) ABG pCO2 33 L 34 L (35-45) mmHg ABG pO2 46 L* 201 H (83-108) mmHg ABG HCO3 27 H 26 H (21-25) mmol/L ABG Total CO2 28 H 27 H (19-24) mmol/L ABG O2 Saturation 83.1 L 99.7 H (94-97) % BUN (9-20) mg/dL Creatinine (0.66-1.25) mg/dL Glucose (74-99) mg/dL POC Glucose (mg/dL) 154 H (75-99) mg/dL AST (17-59) U/L ALT (4-49) U/L Alkaline Phosphatase (38-126) U/L Total Protein (6.3-8.2) g/dL Albumin (3.5-5.0) g/dL 11/20/19 11/21/19 11/21/19 Range/Units 21:47 00:52 04:22 WBC 15.2 H (3.8-10.6) k/uL RBC 2.21 L (4.30-5.90) m/uL Hgb 7.0 L (13.0-17.5) gm/dL Hct 22.0 L (39.0-53.0) % RDW 16.5 H (11.5-15.5) % ABG pH (7.35-7.45) ABG pCO2 (35-45) mmHg ABG pO2 (83-108) mmHg ABG HCO3 (21-25) mmol/L ABG Total CO2 (19-24) mmol/L ABG O2 Saturation (94-97) % BUN (9-20) mg/dL Creatinine (0.66-1.25) mg/dL Glucose (74-99) mg/dL POC Glucose (mg/dL) 144 H 180 H (75-99) mg/dL AST (17-59) U/L ALT (4-49) U/L Alkaline Phosphatase (38-126) U/L Total Protein (6.3-8.2) g/dL Albumin (3.5-5.0) g/dL 11/21/19 11/21/19 11/21/19 Range/Units 04:22 04:24 08:19 WBC (3.8-10.6) k/uL RBC (4.30-5.90) m/uL Hgb (13.0-17.5) gm/dL Hct (39.0-53.0) % RDW (11.5-15.5) % ABG pH 7.51 H (7.35-7.45) ABG pCO2 (35-45) mmHg ABG pO2 123 H (83-108) mmHg ABG HCO3 30 H (21-25) mmol/L ABG Total CO2 31 H (19-24) mmol/L ABG O2 Saturation 99.0 H (94-97) % BUN 39 H (9-20) mg/dL Creatinine 1.26 H (0.66-1.25) mg/dL Glucose 117 H (74-99) mg/dL POC Glucose (mg/dL) 140 H (75-99) mg/dL AST 80 H (17-59) U/L ALT 312 H (4-49) U/L Alkaline Phosphatase 208 H (38-126) U/L Total Protein 5.6 L (6.3-8.2) g/dL Albumin 2.9 L (3.5-5.0) g/dL 11/21/19 11/21/19 Range/Units 08:50 11:37 WBC (3.8-10.6) k/uL RBC (4.30-5.90) m/uL Hgb (13.0-17.5) gm/dL Hct (39.0-53.0) % RDW (11.5-15.5) % ABG pH (7.35-7.45) ABG pCO2 (35-45) mmHg ABG pO2 (83-108) mmHg ABG HCO3 (21-25) mmol/L ABG Total CO2 (19-24) mmol/L ABG O2 Saturation (94-97) % BUN (9-20) mg/dL Creatinine (0.66-1.25) mg/dL Glucose (74-99) mg/dL POC Glucose (mg/dL) 137 H 119 H (75-99) mg/dL AST (17-59) U/L ALT (4-49) U/L Alkaline Phosphatase (38-126) U/L Total Protein (6.3-8.2) g/dL Albumin (3.5-5.0) g/dL Microbiology - Last 24 Hours (Table) 11/21/19 12:40 Sputum Culture - Preliminary Sputum
--- NOTE | 2019-11-21 15:31 | P.PN ---
Subjective Progress Note Date: 11/21/19 Principal diagnosis: Coronary artery disease and non-ST elevation myocardial infarction, status post 5 vessel bypass surgery 64-year-old male patient with coronary artery disease, noncompliant to medication. The patient came in with subendocardial infarction and cardiac catheterization showed diffuse coronary artery disease with critical stenosis. The patient underwent coronary artery bypass on 11/08/2019. The patient underwent bypass 5 with GR to LAD, radial artery graft to acute marginal, saphenous finger after 2 posterior lateral and sick ration saphenous vein to first and second diagonal performed on cardiac pulmonary bypass with beating heart. 11/20/19, patient is seen and evaluated in ICU; extubated yesterday. Patient is awake, follows very simple instructions, remains on 8 L high flow nasal cannula, O2 saturations 94%. Patient is hemodynamically stable not requiring any inotropes or pressors. Patient had an episode of A. fib with RVR yesterday and he received 2 boluses of amiodarone. Presently in normal sinus rhythm. Patient follows again simple instructions, but remains confused, oriented 1 to person. Continues to have Dobbhoff tube in place, and receiving enteral feeding. Remains on antibiotics in the form of Zosyn for presumptive aspiration. Laboratory review shows a white blood count of 20.5, hemoglobin 7.4; chemical profile significant for mild elevation in BUN of 36 Patient will continue to be monitored in ICU with empiric IV antibiotics; plan to wean off O2 as able; patient remains on aspirin, Plavix and Cardizem; diuretic therapy was continued Patient will remain on Dobbhoff tube feeding with plan to increase ambulation as possible 11/21/2019 Patient is seen and evaluated in ICU; patient reintubated yesterday after developing acute respiratory distress after developing atrial fibrillation with RVR which was treated with multiple medications including Cardizem drip and eventually metoprolol was increased to 50 mg 3 times a day; patient became bradycardic and developed pulmonary edema; patient remains sedated with propofol; CT angiogram of the chest was done which was negative for PE; chest x- ray shows improved pulmonary edema Patient remains on aspirin, Plavix and diuretics; continue with empiric antibiotic therapy; remains on nutritional support with Glucerna Objective - Vital Signs Vital signs: Vital Signs Temp 99.6 F 11/21/19 08:00 Pulse 87 11/21/19 08:00 Resp 24 11/21/19 08:00 BP 113/64 11/21/19 07:00 Pulse Ox 99 11/21/19 08:00 Intake & Output 11/20/19 11/21/19 11/21/19 18:59 06:59 18:59 Intake Total 5679.406 9312.327 182 Output Total 1680 1580 120 Balance -389.667 -215.673 62 Weight 88.1 kg Intake: IV 341 266 32 .9NS @ 10 ml/hr 45 100 20 Diltiazem 125 mg In 30 Sodium Chloride 0.9% 100 ml @ 10 MG/HR 10 mls/hr IV .[id number] [facility] Rx#: [id number] Normal Saline Pressure 66 66 12 Bag Piperacillin-Tazobactam 3 200 100 .375 gm In Sodium Chloride 0.9% 100 ml @ 25 mls/hr IVPB Q8HR [facility] Rx# :[id number] Intake, IV Titration 34.333 138.327 Amount DOPamine DRIP 800 mg In 3.401 Dextrose/Water 1 250ml. bag @ 2 MCG/KG/MIN 3.304 mls/hr IV .Q24H [facility] Rx#: [id number] Diltiazem 125 mg In 34.333 Sodium Chloride 0.9% 100 ml @ 10 MG/HR 10 mls/hr IV .[id number] [facility] Rx#: [id number] propofoL 1,000 mg In 134.926 Empty Bag 1 bag @ Titrate IV .Q0M [facility] Rx#: [id number] Tube Feeding 825 900 150 Other 90 60 Output: Urine 1680 1080 120 Urine/Stool Mix 500 Other: Voiding Method Indwelling Catheter Indwelling Catheter ABP, PAP, CO, CI - Last Documented Arterial Blood Pressure 124/55 Pulmonary Artery Pressure 30/17 Cardiac Output 4.5 Cardiac Index 2.3 - Exam Head: Atraumatic, normocephalic, HEENT:[Neck is supple.] [No neck masses.] [No thyromegaly.] [No JVD.] Moist mucous membranes, PERRLA, EOMI, no icterus. Right IJ triple-lumen catheter is noted. Chest: Symmetrical chest expansion, crackles at the bases no rhonchi and no wheezes.] Cardiac Exam: [Normal S1 and S2, no S3 gallop, no murmur.] Abdomen: [Soft, nontender, no megaly, no rebound, no guarding, normal bowel sounds.] Extremities: [No clubbing, no edema, no cyanosis.] Neurological Exam: Awake, follows simple instructions, oriented 1. - Labs CBC & Chem 7: 11/21/19 04:22 11/21/19 04:22 Labs: Abnormal Lab Results - Last 24 Hours (Table) 11/20/19 11/20/19 11/20/19 Range/Units 12:11 15:56 16:44 WBC (3.8-10.6) k/uL RBC (4.30-5.90) m/uL Hgb (13.0-17.5) gm/dL Hct (39.0-53.0) % RDW (11.5-15.5) % ABG pH 7.53 H (7.35-7.45) ABG pCO2 33 L (35-45) mmHg ABG pO2 46 L* (83-108) mmHg ABG HCO3 27 H (21-25) mmol/L ABG Total CO2 28 H (19-24) mmol/L ABG O2 Saturation 83.1 L (94-97) % BUN (9-20) mg/dL Creatinine (0.66-1.25) mg/dL Glucose (74-99) mg/dL POC Glucose (mg/dL) 137 H 154 H (75-99) mg/dL AST (17-59) U/L ALT (4-49) U/L Alkaline Phosphatase (38-126) U/L Total Protein (6.3-8.2) g/dL Albumin (3.5-5.0) g/dL 11/20/19 11/20/19 11/21/19 Range/Units 18:15 21:47 00:52 WBC (3.8-10.6) k/uL RBC (4.30-5.90) m/uL Hgb (13.0-17.5) gm/dL Hct (39.0-53.0) % RDW (11.5-15.5) % ABG pH 7.50 H (7.35-7.45) ABG pCO2 34 L (35-45) mmHg ABG pO2 201 H (83-108) mmHg ABG HCO3 26 H (21-25) mmol/L ABG Total CO2 27 H (19-24) mmol/L ABG O2 Saturation 99.7 H (94-97) % BUN (9-20) mg/dL Creatinine (0.66-1.25) mg/dL Glucose (74-99) mg/dL POC Glucose (mg/dL) 144 H 180 H (75-99) mg/dL AST (17-59) U/L ALT (4-49) U/L Alkaline Phosphatase (38-126) U/L Total Protein (6.3-8.2) g/dL Albumin (3.5-5.0) g/dL 11/21/19 11/21/19 11/21/19 Range/Units 04:22 04:22 04:24 WBC 15.2 H (3.8-10.6) k/uL RBC 2.21 L (4.30-5.90) m/uL Hgb 7.0 L (13.0-17.5) gm/dL Hct 22.0 L (39.0-53.0) % RDW 16.5 H (11.5-15.5) % ABG pH (7.35-7.45) ABG pCO2 (35-45) mmHg ABG pO2 (83-108) mmHg ABG HCO3 (21-25) mmol/L ABG Total CO2 (19-24) mmol/L ABG O2 Saturation (94-97) % BUN 39 H (9-20) mg/dL Creatinine 1.26 H (0.66-1.25) mg/dL Glucose 117 H (74-99) mg/dL POC Glucose (mg/dL) 140 H (75-99) mg/dL AST 80 H (17-59) U/L ALT 312 H (4-49) U/L Alkaline Phosphatase 208 H (38-126) U/L Total Protein 5.6 L (6.3-8.2) g/dL Albumin 2.9 L (3.5-5.0) g/dL 11/21/19 Range/Units 08:19 WBC (3.8-10.6) k/uL RBC (4.30-5.90) m/uL Hgb (13.0-17.5) gm/dL Hct (39.0-53.0) % RDW (11.5-15.5) % ABG pH 7.51 H (7.35-7.45) ABG pCO2 (35-45) mmHg ABG pO2 123 H (83-108) mmHg ABG HCO3 30 H (21-25) mmol/L ABG Total CO2 31 H (19-24) mmol/L ABG O2 Saturation 99.0 H (94-97) % BUN (9-20) mg/dL Creatinine (0.66-1.25) mg/dL Glucose (74-99) mg/dL POC Glucose (mg/dL) (75-99) mg/dL AST (17-59) U/L ALT (4-49) U/L Alkaline Phosphatase (38-126) U/L Total Protein (6.3-8.2) g/dL Albumin (3.5-5.0) g/dL Assessment and Plan Assessment: 1. Coronary artery disease and non-ST elevation myocardial infarction status post CABG 5, postoperative day #12 - Patient is status post successful extubation on 11/19/19. Patient remains on high flow nasal cannula oxygen with plans to titrate as able - Patient remains on empiric antibiotic therapy; cultures have been negative so far 2. Altered mental status most likely secondary to metabolic encephalopathy suspected, CVA, please refer to neurology evaluation. 3. New onset atrial fibrillation and RVR; remains rate controlled on Cardizem. 4. Type 2 diabetes; continue with Levemir 20 units subcu daily at bedtime; monitor Accu-Cheks every before meals and at bedtime with insulin sliding scale. 5. Peripheral vessel occlusive disease with prior peripheral stent placement. 6. Moderate severe COPD FEV1 of 60%; not in exacerbation; continue with bronchodilator nebulizer treatment and home inhaler therapy. 7. Acute kidney injury and acute shock liver secondary to hypotension, improving 8. DVT prophylaxis; subcu heparin CODE STATUS; full code
[2019-11-21 15:53] LABS: Glucose,Whole Blood 160 mg/dL (75-99)
[2019-11-21] MEDS: DOPamine DRIP 800 MG in DEXTROSE/WATER 1 250ML.BAG IV SCH (17:27)
[2019-11-21] MEDS ORDERED: DEXTROSE 5% IN WATER 100 ML with AMIODARONE 150 MG IV ONE (17:42)
[2019-11-21] MEDS: AMIODARONE 200 MG TAB NG-TUBE SCH (20:25)
[2019-11-21] MEDS: METOPROLOL TARTRATE 25 MG TAB NG-TUBE SCH (20:25)
[2019-11-21 20:28] LABS: Glucose,Whole Blood 151 mg/dL (75-99)
[2019-11-21] MEDS: INSULIN DETEMIR (LEVEMIR) 100 UNIT/ML SYR SQ SCH (20:34)
[2019-11-21] MEDS ORDERED: METOPROLOL TARTRATE 50 MG TAB PO SCH (21:00)
--- NOTE | 2019-11-21 22:00 | PN ---
PROGRESS NOTE DATE OF SERVICE: 11/21/2019 REASON FOR FOLLOWUP: Aspiration pneumonia, diarrhea and a question of possible C difficile. INTERVAL HISTORY: Patient is afebrile. The patient did go into respiratory distress, ended up getting intubated. The patient also has been in and out of the atrial fibrillation with RVR. The patient is currently off pressor support. He did require a small dose of earlier. No worsening diarrhea has been reported or any other changes by the nursing staff. PHYSICAL EXAMINATION: Blood pressure 139/55 with a pulse of 85. Temperature 99.3. He is 100% on 50% FiO2. General description: Elderly male lying in bed in no distress. Respiratory system: Unlabored breathing, decreased breath sounds at the bases. No wheeze. Heart S1, S2. Regular rate and rhythm. Abdomen soft. No tenderness. LABS: Hemoglobin 7, white count 15.8, BUN of 39, creatinine 1.26. Sputum culture has been obtained after intubation. DIAGNOSTIC IMPRESSION AND PLAN: Patient with elevated white count which is multifactorial with a component of aspiration pneumonia +/- C difficile colitis in this patient white count did respond to addition of vancomycin yesterday that will be continued along with Zosyn. Sputum culture has been repeated. Those will be followed and antibiotic adjusted further if needed. MMODL / IJN: [id number] /
[2019-11-22] MEDS: INSULIN ASPART (NovoLOG) 100 UNIT/ML VIAL SQ SCH ×13 (00:15→23:53)
[2019-11-22] MEDS: CHERRY FLAVOR 60 ML BOTTLE PO SCH ×2 (00:20→06:33)
[2019-11-22] MEDS: VANCOMYCIN ORAL SOLUTION 250 MG/5 ML BOTTLE PO SCH ×5 (00:20→23:57)
[2019-11-22] MEDS: PIPERACILLIN-TAZOBACTAM 3.375 GM in SODIUM CHLORIDE 0.9% 100 ML IVPB SCH ×4 (01:20→23:49)
[2019-11-22] MEDS: HEPARIN SODIUM,PORCINE 5,000 UNIT/ML 1 ML VIAL SQ SCH ×4 (04:22→23:49)
[2019-11-22 04:29] LABS: Glucose,Whole Blood 104 mg/dL (75-99)
[2019-11-22 04:42] LABS: ABG Base Excess 7.6 mmol/L; ABG HCO3 31 mmol/L (21-25); ABG Oxygen Saturation 99.2 % (94-97); ABG PCO2 38 mmHg (35-45); ABG PH 7.51 (7.35-7.45); ABG PO2 123 mmHg (83-108); ABG TCO2 32 mmol/L (19-24)
[2019-11-22 04:43] LABS: Allen Test Performed? no
[2019-11-22 05:25] LABS: Anisocytosis Slight; Basophils # (A) 0.1 k/uL (0-0.2); Basophils % (A) 1 %; Eosinophils % (A) 10 %; HCT 22.1 % (39.0-53.0); Hypochromasia Marked; Lymphocytes % (A) 10 %; MCH 31.8 pg (25.0-35.0); MCHC 31.6 g/dL (31.0-37.0); MCV 100.6 fL (80.0-100.0); Macrocytosis Slight; Mean Platelet Volume 8.4; Monocytes # (A) 0.7 k/uL (0-1.0); Monocytes % (A) 7 %; Neutrophils # (A) 6.8 k/uL (1.3-7.7); Neutrophils % (A) 69 %; Platelet Count 404 k/uL (150-450); RBC 2.19 m/uL (4.30-5.90); RDW 16.8 % (11.5-15.5); WBC 9.9 k/uL (3.8-10.6)
[2019-11-22 05:39] LABS: Albumin 2.8 g/dL (3.5-5.0); Calcium 8.4 mg/dL (8.4-10.2); Total Bilirubin 0.7 mg/dL (0.2-1.3); Total Protein 5.6 g/dL (6.3-8.2)
[2019-11-22] MEDS: METOPROLOL TARTRATE 25 MG TAB NG-TUBE SCH ×2 (07:19→21:59)
--- NOTE | 2019-11-22 07:28 | XR ---
EXAMINATION TYPE: XR chest 1V portable DATE OF EXAM: 11/22/2019 COMPARISON: 11/21/2019 HISTORY: Shortness of breath TECHNIQUE: Single frontal view of the chest is obtained. FINDINGS: Diffuse bilateral infiltrate and pleural effusion. No sizable pneumothorax. ET tube and fe eding tube stable in position. Right-sided central line stable. No pneumothorax. Interstitial pattern noted. Postsurgical changes noted. IMPRESSION: 1. Findings most typical of CHF correlate clinically to exclude pneumonia.
[2019-11-22] MEDS: IPRATROPIUM-ALBUTEROL 3 ML NEB INHALATION SCH ×4 (09:01→19:51)
--- NOTE | 2019-11-22 09:04 | P.PN ---
Subjective Progress Note Date: 11/22/19 Principal diagnosis: Symptomatic multivessel coronary artery disease, unstable angina, status post subendocardial myocardial infarction. Previous medical history of CAD with previous stent placement to the proximal circumflex and ostial OM1, hypertension, hyperlipidemia, chronic ongoing tobacco dependence, mild COPD with preoperative FEV1 60% of predicted, right internal carotid artery stenosis 50- 69%, peripheral arterial disease with previous arthrectomy and SERVICE CREW LEADER of the left SFA, atherectomy and SERVICE CREW LEADER of the left ENGINEERING EXECUTIVE, with stenting of the left BRIAN, poorly controlled type 2 diabetes with preoperative hemoglobin A1c 9.1%, bladder cancer status post chemo and radiation, occasional marijuana use, medication noncompliance, and family history of premature coronary artery disease POD #14 CABG 5 with GR to the LAD, left radial artery to the obtuse marginal, reverse saphenous vein to the posterior lateral, sequential saphenous vein to the first and second diagonal performed on cardiopulmonary bypass with beating heart. Endoscopic vein harvest of the left greater saphenous vein from the ankle to the groin. Endoscopic harvest of the left radial artery. Epi-aortic ultrasound and ligation of left atrial appendage with 40 mm AtriCure clip Postoperative acute blood loss anemia, expected outcome given cardiopulmonary bypass and hemodilution Postoperative encephalopathy, unexpected but potential outcome given cardiopulmonary bypass and intraoperative cardiac arrest Postoperative new onset paroxysmal Afib with RVR, unexpected Postoperative acute hypoxemic respiratory failure requiring reintubation, secondary to metabolic acidosis and hypotension. Postoperative stage II pressure ulcer on coccyx, unexpected The patient was seen and examined in the intensive care unit this morning. He was reintubated over the weekend and remains mechanically ventilated with propofol for sedation. Currently in uncontrolled atrial fibrillation. Right internal jugular triple-lumen central line, right radial arterial line, left midline catheters 2, Newman catheter, Dobbhoff, and fecal management system all present. Per report patient was able to move all extremities and was following some commands prior to being intubated. Remains on antibiotics per infectious disease, cultures remain negative. WBC down to 9.9 this morning, hemoglobin remains at 7. Continues with tube feeding through Dobbhoff and tolerating well. Bilateral pleural effusions remains present on x-ray. Objective - Vital Signs Vital signs: Vital Signs Temp 97.8 F 11/22/19 04:00 Pulse 133 H 11/22/19 07:00 Resp 28 H 11/22/19 07:00 BP 113/64 11/21/19 07:00 Pulse Ox 100 11/22/19 07:00 Intake & Output 11/21/19 11/22/19 11/22/19 18:59 06:59 18:59 Intake Total 1395.071 581.836 13 Output Total 1570 1900 125 Balance -174.929 -1318.164 -112 Weight 90.4 kg Intake: IV 351 153 13 .9NS @ 10 ml/hr 100 120 10 Normal Saline Pressure 51 33 3 Bag Piperacillin-Tazobactam 3 200 .375 gm In Sodium Chloride 0.9% 100 ml @ 25 mls/hr IVPB Q8HR [facility] Rx# :[id number] Intake, IV Titration 159.071 53.836 Amount DOPamine DRIP 800 mg In 58.637 Dextrose/Water 1 250ml. bag @ 2 MCG/KG/MIN 3.304 mls/hr IV .Q24H [facility] Rx#: [id number] propofoL 1,000 mg In 100.434 53.836 Empty Bag 1 bag @ Titrate IV .Q0M [facility] Rx#: [id number] Tube Feeding 825 375 Other 60 Output: Urine 1570 1900 125 Other: Voiding Method Indwelling Catheter Indwelling Catheter ABP, PAP, CO, CI - Last Documented Arterial Blood Pressure 128/65 Pulmonary Artery Pressure 30/17 Cardiac Output 4.5 Cardiac Index 2.3 - Constitutional General appearance: Present: no acute distress - Respiratory Details: Lungs sounds diminished, coarse bilaterally. Respirations even, nonlabored on mechanical ventilation. Current settings assist control mode, FiO2 50%, tidal volume 450, respiratory rate 16, PEEP 5. ABGs this morning 7.51/38/123/31 on those settings. Oxygen saturation remains in the high 90s to 100%. - Cardiovascular Details: S1, S2 present. Irregular rapid rate and rhythm, uncontrolled atrial fibrillation on telemetry. Sternum stable. A/V epicardial pacemaker wires present, connected to generator, AAI mode with a backup rate 50 bpm. Palpable peripheral pulses bilaterally. Generalized edema present. No calf pain or tenderness noted. Right internal jugular triple-lumen central line, right radial arterial line, left midline 2 present. Heart hugger, antiembolism stockings, SCDs present. - Gastrointestinal Gastrointestinal Comment(s): Abdomen soft, nontender, nondistended. Active bowel sounds present 4 quadrants. Tolerating Glucerna tube feedings at 75 mL per hour through Dobbhoff. Fecal management system present with liquid stool. - Genitourinary Genitourinary Comment(s): Newman present draining clear yellow urine with occasional sediment. Urine output 1200 mL in the last 8 hours. - Integumentary Integumentary Comment(s): Skin is warm and dry. Anterior chest incision well approximated without redness or drainage, covered with dry intact dressing. Left lower extremity EVH site well approximated without drainage or redness. Left radial artery harvest site dry and intact without redness or drainage, good cap refill. Stage II pressure ulcer present to coccyx area, Optifoam dressing dry and intact. - Musculoskeletal Musculoskeletal: Present: right sided weakness - Psychiatric Psychiatric Comment(s): Sedated with propofol - Allied health notes Allied health notes reviewed: nursing - Labs CBC & Chem 7: 11/22/19 04:40 11/22/19 04:40 Labs: Abnormal Lab Results - Last 24 Hours (Table) 11/21/19 11/21/19 11/21/19 Range/Units 08:19 08:50 11:37 RBC (4.30-5.90) m/uL Hgb (13.0-17.5) gm/dL Hct (39.0-53.0) % MCV (80.0-100.0) fL RDW (11.5-15.5) % Eosinophils # (0-0.7) k/uL ABG pH 7.51 H (7.35-7.45) ABG pO2 123 H (83-108) mmHg ABG HCO3 30 H (21-25) mmol/L ABG Total CO2 31 H (19-24) mmol/L ABG O2 Saturation 99.0 H (94-97) % BUN (9-20) mg/dL Glucose (74-99) mg/dL POC Glucose (mg/dL) 137 H 119 H (75-99) mg/dL AST (17-59) U/L ALT (4-49) U/L Alkaline Phosphatase (38-126) U/L Total Protein (6.3-8.2) g/dL Albumin (3.5-5.0) g/dL 11/21/19 11/21/19 11/22/19 Range/Units 15:52 20:27 04:26 RBC (4.30-5.90) m/uL Hgb (13.0-17.5) gm/dL Hct (39.0-53.0) % MCV (80.0-100.0) fL RDW (11.5-15.5) % Eosinophils # (0-0.7) k/uL ABG pH (7.35-7.45) ABG pO2 (83-108) mmHg ABG HCO3 (21-25) mmol/L ABG Total CO2 (19-24) mmol/L ABG O2 Saturation (94-97) % BUN (9-20) mg/dL Glucose (74-99) mg/dL POC Glucose (mg/dL) 160 H 151 H 104 H (75-99) mg/dL AST (17-59) U/L ALT (4-49) U/L Alkaline Phosphatase (38-126) U/L Total Protein (6.3-8.2) g/dL Albumin (3.5-5.0) g/dL 11/22/19 11/22/19 11/22/19 Range/Units 04:39 04:40 04:40 RBC 2.19 L (4.30-5.90) m/uL Hgb 7.0 L (13.0-17.5) gm/dL Hct 22.1 L (39.0-53.0) % MCV 100.6 H (80.0-100.0) fL RDW 16.8 H (11.5-15.5) % Eosinophils # 1.0 H (0-0.7) k/uL ABG pH 7.51 H (7.35-7.45) ABG pO2 123 H (83-108) mmHg ABG HCO3 31 H (21-25) mmol/L ABG Total CO2 32 H (19-24) mmol/L ABG O2 Saturation 99.2 H (94-97) % BUN 38 H (9-20) mg/dL Glucose 100 H (74-99) mg/dL POC Glucose (mg/dL) (75-99) mg/dL AST 93 H (17-59) U/L ALT 286 H (4-49) U/L Alkaline Phosphatase 199 H (38-126) U/L Total Protein 5.6 L (6.3-8.2) g/dL Albumin 2.8 L (3.5-5.0) g/dL Microbiology - Last 24 Hours (Table) 11/21/19 12:40 Gram Stain - Preliminary Sputum Sputum Culture - Preliminary - Imaging and Cardiology Chest x-ray: report reviewed, image reviewed Assessment and Plan Assessment: 1. Symptomatic multivessel coronary artery disease, recent non-STEMI, status post 5 vessel CABG 2. Leukocytosis, maybe multifactoral, positive UTI. Blood, sputum, urine cultures negative to date although drawn after antibiotics started. 3. Previous stent placement to the proximal circumflex and ostial OM1 4. History of hypertension 5. History of hyperlipidemia 6. Chronic ongoing tobacco dependence 7. Mild COPD, preoperative FEV1 60% of predicted value 8. Right internal carotid artery stenosis 50-69%. 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 9. History of peripheral arterial disease with previous arthrectomy and SERVICE CREW LEADER of the left SFA and atherectomy and SERVICE CREW LEADER of the left ENGINEERING EXECUTIVE with stenting of the left BRIAN 10. Poorly controlled diabetes mellitus type 2 with hyperglycemia, admission hemoglobin A1c 9.1% 11. History of bladder cancer status post radiation, chemotherapy treatment and bladder surgery 12. Occasional marijuana use 13. Medication noncompliance 14. Family history of early onset coronary artery disease 15. Postoperative acute blood loss anemia, expected 16. Postoperative encephalopathy, unexpected 17. Mild ISAAC 18. Afib with RVR, status post left atrial appendage ligation, currently Sinus Rhythm to sinus bradycardia 19. Hematuria, resolved, likely from patient pulling at newman catheter 20. Postoperative acute hypoxic respiratory failure requiring reintubation, secondary to metabolic acidosis and hypotension 21. Elevated transaminase levels, shock liver, secondary to hypotension, trend ing down 22. New stage II pressure ulcer, coccyx Plan: 1. Continue aspirin, Plavix, statin, beta gaurav, Cozaar. Will increase beta gaurav therapy as tolerated 2. Continue amiodorone for atrial fibrillation prophylaxis. No anticoagulation until all lines and tubes have been removed, especially epicardial pacemaker wires 3. Continue to hold Cardizem. Will reassess and add as tolerated. 4. Keep Newman catheter in place for accurate I&O. Newman catheter was changed on 11/14/2019. 5. Continue Optifoam dressing pressure ulcer per Dr. Diaz. Turn minimum every 2 hours. 6. Mechanical ventilator management per pulmonary critical care medicine. Patient should have spontaneous breathing trials at least daily to exercise the lungs even if extubation is not planned 7. Discontinue propofol, switched to Precedex for sedation 8. Will monitor daily labs and chest x-rays. Elective replacement per protocol. Will transfuse 1 unit packed red blood cells today 9. Continue Tylenol for pain management, hold narcotics and toradol. 10. GI/DVT prophylaxis. 11. Insulin management per primary care service. 12. Continue 40 mg Lasix q12 13. Keep Dobbhoff tube in place for tube feeding. Currently infusing at goal rate of 75 mL per hour. 14. Continue to avoid nephrotoxic agents. 15. Keep atrial and ventricular epicardial pacemaker wires in place and con nected to a backup pacemaker generator with a AAI of 50. 16. Reorient as necessary. Continue to assess mental status 17. Continue antibiotics per infectious disease 18. Ultrasound of chest ordered for possible thoracentesis, not enough fluid to be drained 19. More recommendations to follow based on patient's clinical course. Time with Patient: Greater than 30
--- NOTE | 2019-11-22 09:08 | US ---
EXAMINATION TYPE: US chest DATE OF EXAM: 11/22/2019 COMPARISON: x ray, US CLINICAL HISTORY: for poss thoracentesis. TECHNIQUE: Targeted ultrasound of bilateral chest on ICU patient EXAM MEASUREMENTS: Right Pleural Effusion pocket size: 4.8 cm A/P Right skin surface to fluid distance: 2.8 cm Left Pleural Effusion pocket size: 3.2 cm A/P Left skin surface to fluid distance: 1.5 cm Right side was marked for possible thoracentesis outside the dept., although the fluid pocket is less than 5cm A/P. Pulmonologists are able to review the images in the patient?s EMR. IMPRESSIONS: 1. Small bilateral
[2019-11-22 09:42] LABS: Glucose,Whole Blood 111 mg/dL (75-99)
[2019-11-22] MEDS: LOSARTAN 25 MG TAB PO SCH (09:49)
[2019-11-22] MEDS: ASCORBIC ACID 500 MG TAB PO SCH ×2 (09:49→16:19)
[2019-11-22] MEDS: ATORVASTATIN 40 MG TAB PO SCH (09:49)
[2019-11-22] MEDS: FERROUS SULFATE ORAL ELIXIR 300 MG/5 ML CUP PO SCH ×2 (09:49→16:19)
[2019-11-22] MEDS: CLOPIDOGREL 75 MG TAB PO SCH (09:49)
[2019-11-22] MEDS: NYSTATIN 100,000 UNIT/ML SUSP 500,000 UNIT/5 ML CUP PO SCH ×4 (09:49→22:00)
[2019-11-22] MEDS: PANTOPRAZOLE 40 MG TABLET PO SCH (09:49)
[2019-11-22] MEDS: CHLORHEXIDINE GLUCONATE 15 ML CUP MUCOUS MEM SCH ×2 (09:50→21:59)
[2019-11-22] MEDS: AMIODARONE 200 MG TAB NG-TUBE SCH ×2 (09:50→21:59)
[2019-11-22] MEDS: ASPIRIN 325 MG TAB PO SCH (09:50)
[2019-11-22] MEDS: FUROSEMIDE 10 MG/ML 4 ML VIAL IV SCH ×2 (09:50→21:59)
--- NOTE | 2019-11-22 11:02 | P.PN ---
Subjective Progress Note Date: 11/22/19 Principal diagnosis: Coronary artery disease with unstable angina, and non-ST elevated OH, status post 5 vessel bypass grafting This is a 64-year-old male patient with coronary artery disease, noncompliant to medication. The patient came in with subendocardial infarction and cardiac catheterization showed diffuse coronary artery disease with critical stenosis. The patient underwent coronary artery bypass today. The patient underwent bypass 5 with GR to LAD, radial artery graft to acute marginal, saphenous finger after 2 posterior lateral and sick ration saphenous vein to first and second diagonal performed on cardiac pulmonary bypass with beating heart. Left atrial appendage was also added. The patient currently is in the intensive care unit. I centimeters in regards to the ICU. He was initially on a SIMV mode of ventilation at the rate of 12 with a tidal volume of 500 and FiO2 of 100% with a PEEP of 5 and a pressure support of 5. The blood gas showed a pH of 7.318 with a pCO2 of 49 and pO2 of 226. The chest x-ray postop showed volume overload with pulmonary vascular congestion and interstitial edema. The lines and tubes are all in good location. Based on all this, I increased the respiratory rate of 24. I do not FiO2 down to 60%. Current cardiac output is at 2.6 with an index of 5. The patient has 2 mediastinal 1 right pleural and 1 left pleural chest tube. Ultrasound of the sternal chest tubes has been around 150 mL since he arrived from the operating room. No evidence of any air leak. The patient is currently on a Cardizem drip and milrinone drip and the patient is on insulin drip for blood sugar control.he is well sedated. Is quite symptoms with the mechanical ventilator. Postoperative hemoglobin is at 8.2. Platelet count is down to 78. On today's evaluation of 11/09/2019, I'm seeing the patient for a follow-up. The patient was operated on yesterday and the patient underwent a five-vessel bypass surgery including a GR and the radial artery harvest. The patient was extubated within 6 hours and currently the patient is on oxygen by nasal cannula at 5 L. He is pleasantly confused this morning. He is able to sit up on a recliner. Hemodynamically, he did have some early of hypotension earlier this morning and for that reason the patient was given 750 mL of colloids and following that he was started on low-dose levo fed at 0.03 g per KG per minute. The patient remains on Primacor running at 0.125 g and the patient is also on Cardizem at 5 mg an hour. Insulin drip is running at 2.5 units an hour. Hemod ynamically, the patient's cardiac output is at 4.2 with an index of 2.2. The pulmonary artery pressure 28/12. CVP is at 11. Cardiac output is at 4.2. He is in his normal sinus rhythm. He has a backup VVI at the rate of 50. His chest x-rays showing small bilateral apical pneumothoraces. All of the chest tubes are in good location. The right and left pleural chest tube connected and they have drained approximately 130 mL over the past 8 hours. He is tender tubes are also connected and it has drained approximately 140 mL over the past 8 hours. The patient otherwise has no specific complaints. Sternum stable clean and intact. He is producing urine output in the order of 20-30 mL an hour. No other significant events overnight. Hemoglobin stable at 7.9. The platelet count improved to 102. On 11/10/2019, the patient is postop day #2. The patient is confused. He is nonverbal. He is not answering questions and is not following any commands. Upon watching him, I felt that the left side of the body slightly cachectic compared to the right. Nevertheless, the same as the patient was not cheered by the nursing staff been observing this patient longer to me. He has no prefer ential gaze toseizure activity. No reported shortness of breath or respiratory distress at this point in time. Mediastinal chest tubes and the pleural chest tubes are all in place. The patient has an AV epicardial pacer wire grounded to generator. As of yesterday, the patient was taken off the pressors. The patient is currently off the levo fed and he is off the Primacor. The patient also had the ALYX drains removed from the left lower extremity and arm. No other significant issues for now. No cardiac arrhythmias. No nausea. No vomiting. No emesis. He is resting comfortably in bed. The patient's hemoglobin is at 7.0. Was a causative 4.7. Diminished pulmonary vascular congestion and infiltration of the right lung base. There is resolution of the previously described bilateral pneumothoraces. On today's evaluation of 11/11/2019, the patient remains confused. I was told that he was able to say some few words. I was also told by the nursing staff that the patient was witnessed EXTREMITIES WITHOUT ANY LIMITATION IN PATIENT HAVING ANY FOCAL NEUROLOGICAL DEFICIT. NOTE THAT THE PATIENT EARLIER THIS MORNING WITH ATRIAL FIBRILLATION WITH RAPID VENTRICULAR RESPONSE. HIS HEART RATE WENT UP TO 180 beats per minute without any significant hypotension. That point, the patient was given amiodarone boluses and the patient received a total of 3 boluses prior to my arrival. He was also given 5 mg of IV Lopressor. Her, bilateral, the patient was still in atrial fibrillation. He was trying to hurt at times he thought it was going down. His baseline rhythm was atrial fibr illation and heart rate was in the range of 100-120. The patient denied having any chest pain. Sternum was stable treatment intact. No reported fever or chills. The mediastinal chest 11 already been removed yesterday. The right and the left pleural chest tubes are still in place and output is being noted. Chest x-ray from this morning showed adequate expansion of both lungs without evidence of any pneumothorax. No evidence of any pulmonary edema. The patient was being given Lasix 20 mg IV push every 12 hours. Hemoglobin from this morning was down to 6.7 and the patient was ordered to get a unit of packed RBC. Currently is postoperative #3 post 5 vessel coronary artery bypass surgery. On 11/12/2019 patient seen in follow-up in the intensive care unit, he is very restless on today's exam, although nursing reports some improvement in his neurological status, and apparently patient is answering questions appropriately, and he knows he is in the hospital, and he is given verbal r esponses to questions. he is awake and alert, he is restless, but appears to be in no acute distress, he is moving his legs and arms bilaterally, squirming in bed. Does not appear to be in any respiratory distress. He is currently on 5 L of oxygen, with pulse ox of 100%, hemodynamically patient is stable, no fever or chills. Lactate of Ringer's infusing at a rate of 40 ML per hour. Today's est x-ray has been reviewed showing increasing airspace opacity of the right upper lobe, similar prominent interstitial markings, no pneumothorax, no pleural effusions. Left pleural chest tube is in place, with a total output of 340 ML in the last 24 hours, right pleural chest tube put out 380 mL of serosanguineous thin output in the last 24 hours, media still chest tubes have been discontinued. Patient has produced 1.3 L and urine output in the last 24 hours. Junior catheter remains in place. Today's lab work has been reviewed, showing white blood cell count of 17.6, hemoglobin is 9.3, sodium of 138, potassium 3.8, chloride is 108, CO2 is 20, B1 is 39, creatinine is 1.17. She is in sinus arrhythmia with frequent PACs on the monitor, amiodarone drip has been switched to oral amiodarone 400 mg twice daily, patient is on oral Cardizem 30 mg every 6 hours, and oral metoprolol 50 mg twice daily. Blood cultures have shown no growth at the 24-hour elly. Patient has been afebrile. supply chain systems manager is at the bedside in view of confusion and agitation, Junior catheter still has hematuria, which is dark in color, yesterday's brain CT showed patchy. Ventricular and deep white matter changes, left greater than right which have progressed from 01/09/2019, and areas of subacute ischemia are not excluded, MRI can further evaluate, no acute intracranial hemorrhage or midline shift. On 11/17/2019 patient seen in follow-up in the intensive care unit, she is sedated, intubated, on mechanical ventilator, current vent settings are assist- control with a rate of 16, tidal and was 450, FiO2 is 40%, and PEEP of 5. This morning his blood gases reveal pO2 of 92, pCO2 34, pH is 7.47. Current IV drips include 0.9 normal saline at a rate of 5 ML per hour, and improving and is at 60 mics per kilo per minute, tube feedings are with vital high-protein at a rate of 54, with a goal of 54 with standard water flushes with 30 mL of water every 4 hours. Patient was given daily traction of sedation yesterday, he awoke, and reportedly follow commands, but quickly became very tachypneic and hypertensive and had to be placed back on mechanical ventilator. His chest x-ray shows stable findings, persistent central vascular congestion and bibasilar opacities. Small to moderate-sized bilateral pleural effusions, appear to be stable. Patient remains on IV Lasix at 40 mg every 12 hours, and he is very slightly negative, only 6 mL, however he did produced over 3 L in urine output in the last 24 hours. He is off the vasopressor support, his weight is stable, he does have some generalized edema involving his upper and lower extremities. Remains on empiric antibiotics in the form of cefepime and vancomycin. He is afebrile, his blood urine and sputum cultures have shown no growth thus far. Today's labs have been reviewed. His white blood cell is stable at 15, hemoglobin is 7.7, sodium is 136, the rest of electrolytes were within normal limits, B1 is 33, and creatinine is 1.04, his liver enzymes are coming down, AST is down to 130, ALT is 692, alk phos is fairly stable at 195, his pro-calcitonin level was elevated and 0.99, suggesting presence of bacterial infection. Patient has been afebrile, abdomen is soft, nontender, patient is tolerating tube feedings. His hematuria has cleared up. On 11/18/2019 patient seen in follow-up in the intensive care unit. Patient is still intubated, his sedation has been on hold since 7:00 this morning, patient is awake, he is following basic commands, squeezing with his left hand, however his right hand is flaccid, and patient is not able to squeeze with the right hand. His current vent settings are assist-control with a rate of 16, tidal volume is 450, FiO2 is 40%, and PEEP of 5. This is blood gases showed pO2 106, pCO2 35, and pH of 7.49. Currently on no drips other than 0.9 normal saline at a rate of KVO. Patient has been tolerating tube feedings. Yesterday we repeated his CT of the brain which showed no evidence of acute hemorrhage, areas of patchy low attenuation in the left parietal white matter previously noted on previous brain scan this could be on the basis of subacute ischemia. MRI of the brain was recommended, neurology consultation was requested and patient is suspected to have probable subacute stroke involving multiple patchy areas in the left MCA vascular territory consideration of cardioembolic source. Patient did have transient atrial fibrillation. Follow-up MRI and MRA of the brain will be done once the patient is extubated and is able to travel down to the MRI department. Today's chest x-ray shows diffuse bilateral pleural parenchymal changes, no pneumothorax. Consider pulmonary edema, or underlying pneumonia. So far blood and urine and sputum cultures remain negative. Patient is afebrile, hemodynamically he stable, empiric antibiotic coverage is with Zosyn, vancomycin has been discontinued, ID service is following. Patient is on IV Lasix at 40 mg every 12 hours. He has produced 2.7 L and urine output over last 24 hours, he is in -280 mL fluid balance. He seems to get slightly agitated at times, becomes hypertensive, today she is following commands, we will try to keep him off sedation, to fully assess his mentation and neurological status, we will repeat LFTs, and ammonia level. On 11/22/2019 patient seen in follow-up in the intensive care unit. To recap patient was admitted to the hospital on 11/07/2019, and he had his 5 vessel coronary artery bypass grafting surgery and 11/08/2019 and patient was extubated on postoperative day 0 on 11/08/2019. In the postoperative period patient developed altered mental status worsening respiratory failure, symptomatic b radycardia and had to be emergently reintubated on 11/12/2019 and weaned and extubated on 11/19/2019. Patient is suspected to have sustained a subacute stroke involving multiple patchy areas in the left MCA distribution. He has not been able to travel to the MRI department for his follow-up MRI. Patient was weaned from the mechanical ventilator and extubated on 11/19/2019 last week however developed worsening hypoxia, pulmonary edema and had to be reintubated on 11/20/2019. Today she seen in the intensive care unit, sedated on 30 mics per kilo per minute of propofol infusion, and 0.9 normal seen at a rate of 10 ML per hour, he is intubated current vent settings are assist-control with a rate of 16, tidal line was 450, FiO2 is 50% and PEEP of 5, this was blood gases show pO2 of 123, pCO2 38 and pH of 7.51. His chest x-ray shows diffuse bilateral infiltrates and pleural effusion, sizable pneumothorax, interstitial pattern was noted. Patient remains on Lasix at 40 mg every 12 hours, diuresing, and he has made at 7.4 L in urine output in last 24 hours, and he is in -1.5 L net fluid balance over last 24 hours. He is receiving tube feedings with Glucerna 1.5 at a rate of 75 with a goal of 75 ML per hour. Afebrile and hemodynamically stable in the last 24 hours, not requiring any vasopressor support, today's labs have been reviewed showing limited cell count within normal limits at 9.9, hemoglobin is 7.0, electrolytes are within normal limits, BUN of 38, creatinine is 1.17, liver enzymes have steadily been improving, and AST is 93, ALT is 286, alkaline phosphatase was 199, his last ammonia level was back on the and was normal at less than 9. Blood sputum and urine cultures have shown no growth so far. Empiric and pneumatic coverage is with Zosyn and vancomycin Objective - Vital Signs Vital signs: Vital Signs Temp 97.9 F 11/22/19 08:00 Pulse 111 H 11/22/19 09:12 Resp 19 11/22/19 08:00 BP 113/64 11/21/19 07:00 Pulse Ox 100 11/22/19 08:00 Intake & Output 11/21/19 11/22/19 11/22/19 18:59 06:59 18:59 Intake Total 1395.071 581.836 131 Output Total 1570 1900 215 Balance -174.929 -1318.164 -84 Weight 90.4 kg Intake: IV 351 153 26 .9NS @ 10 ml/hr 100 120 20 Normal Saline Pressure 51 33 6 Bag Piperacillin-Tazobactam 3 200 .375 gm In Sodium Chloride 0.9% 100 ml @ 25 mls/hr IVPB Q8HR [facility] Rx# :[id number] Intake, IV Titration 159.071 53.836 Amount DOPamine DRIP 800 mg In 58.637 Dextrose/Water 1 250ml. bag @ 2 MCG/KG/MIN 3.304 mls/hr IV .Q24H [facility] Rx#: [id number] propofoL 1,000 mg In 100.434 53.836 Empty Bag 1 bag @ Titrate IV .Q0M [facility] Rx#: [id number] Tube Feeding 825 375 75 Other 60 30 Output: Urine 1570 1900 215 Other: Voiding Method Indwelling Catheter Indwelling Catheter ABP, PAP, CO, CI - Last Documented Arterial Blood Pressure 122/61 Pulmonary Artery Pressure 30/17 Cardiac Output 4.5 Cardiac Index 2.3 - Exam GENERAL EXAM: intubated 64-year-old white male, with FiO2 50%, patient currently sedated on 30 mcg/kg/min of Diprivan HEAD: Normocephalic/atraumatic. EYES: Normal reaction of pupils, equal size. Conjunctiva pink, sclera white. NOSE: Clear with pink turbinates. Patient has a Dobbhoff feeding tube in place with tube feedings infusing THROAT: No erythema or exudates. NECK: No masses, no JVD, no thyroid enlargement, no adenopathy. CHEST: No chest wall deformity. Symmetrical expansion. Midsternal incision is clean dry and intact, interval removal of chest tubes, AV wires remain in place to external pacemaker, with backup rate of AAI 50 BPM LUNGS: Equal air entry with no crackles, wheeze, rhonchi or dullness. CVS: Irregular rate and rhythm, normal S1 and S2, no gallops, no murmurs, no rubs ABDOMEN: Soft, nontender. No hepatosplenomegaly, normal bowel sounds, no guarding or rigidity. EXTREMITIES: No clubbing, no edema, no cyanosis, 2+ pulses and upper and lower extremities. MUSCULOSKELETAL: Muscle strength and tone normal. SPINE: No scoliosis or deformity SKIN: No rashes CENTRAL NERVOUS SYSTEM: Patient is sedated currently on 30 mics per kilo per minute of propofol infusion - Labs CBC & Chem 7: 11/22/19 04:40 11/22/19 04:40 Labs: Abnormal Lab Results - Last 24 Hours (Table) 11/21/19 11/21/19 11/21/19 Range/Units 11:37 15:52 20:27 RBC (4.30-5.90) m/uL Hgb (13.0-17.5) gm/dL Hct (39.0-53.0) % MCV (80.0-100.0) fL RDW (11.5-15.5) % Eosinophils # (0-0.7) k/uL ABG pH (7.35-7.45) ABG pO2 (83-108) mmHg ABG HCO3 (21-25) mmol/L ABG Total CO2 (19-24) mmol/L ABG O2 Saturation (94-97) % BUN (9-20) mg/dL Glucose (74-99) mg/dL POC Glucose (mg/dL) 119 H 160 H 151 H (75-99) mg/dL AST (17-59) U/L ALT (4-49) U/L Alkaline Phosphatase (38-126) U/L Total Protein (6.3-8.2) g/dL Albumin (3.5-5.0) g/dL 11/22/19 11/22/19 11/22/19 Range/Units 04:26 04:39 04:40 RBC 2.19 L (4.30-5.90) m/uL Hgb 7.0 L (13.0-17.5) gm/dL Hct 22.1 L (39.0-53.0) % MCV 100.6 H (80.0-100.0) fL RDW 16.8 H (11.5-15.5) % Eosinophils # 1.0 H (0-0.7) k/uL ABG pH 7.51 H (7.35-7.45) ABG pO2 123 H (83-108) mmHg ABG HCO3 31 H (21-25) mmol/L ABG Total CO2 32 H (19-24) mmol/L ABG O2 Saturation 99.2 H (94-97) % BUN (9-20) mg/dL Glucose (74-99) mg/dL POC Glucose (mg/dL) 104 H (75-99) mg/dL AST (17-59) U/L ALT (4-49) U/L Alkaline Phosphatase (38-126) U/L Total Protein (6.3-8.2) g/dL Albumin (3.5-5.0) g/dL 11/22/19 11/22/19 Range/Units 04:40 09:41 RBC (4.30-5.90) m/uL Hgb (13.0-17.5) gm/dL Hct (39.0-53.0) % MCV (80.0-100.0) fL RDW (11.5-15.5) % Eosinophils # (0-0.7) k/uL ABG pH (7.35-7.45) ABG pO2 (83-108) mmHg ABG HCO3 (21-25) mmol/L ABG Total CO2 (19-24) mmol/L ABG O2 Saturation (94-97) % BUN 38 H (9-20) mg/dL Glucose 100 H (74-99) mg/dL POC Glucose (mg/dL) 111 H (75-99) mg/dL AST 93 H (17-59) U/L ALT 286 H (4-49) U/L Alkaline Phosphatase 199 H (38-126) U/L Total Protein 5.6 L (6.3-8.2) g/dL Albumin 2.8 L (3.5-5.0) g/dL Microbiology - Last 24 Hours (Table) 11/21/19 12:40 Gram Stain - Preliminary Sputum Sputum Culture - Preliminary Assessment and Plan Plan: Assessment: 1 coronary artery disease without stable angina and non-STEMI. The patient underwent five-vessel bypass surgery on 11/08/2019. CABG 5 with GR to LAD, left radial artery to obtuse marginal, saphenous vein to posterior lateral, sequential saphenous vein to first and second diagonal performed on cardiopulmonary bypass with beating heart. Epi-aortic ultrasound and ligation of left atrial appendage with Atriclip. The patient is postop day #14. Hemodynamically stable. 2 recurrent acute hypoxic respiratory failure, multifactorial, patient was initially intubated for the original surgery on 11/08/2019 with extubation on 11/08/2019, patient was re-intubated on 11/12/2019, for symptomatic bradycardia, worsening lactic acidosis, of unclear etiology. Patient was successfully weaned and extubated on 11/19/2019, and subsequently reintubated on 11/20/2019 for worsening hypoxemia related to pulmonary edema and A. fib with RVR. Antibiotics have been given empirically, cultures remain negative 3 altered mental status likely related to metabolic encephalopathy, subacute CVA involving the left MCA distribution please refer to the neurology evaluation 4 new-onset atrial fibrillation with RVR, expected outcome of surgery, intermittent requiring amiodarone infusion. On 11/22/2019 patient is in A. fib with slightly tachycardic rate 5 blood loss anemia , expected outcome of surgery, and this is likely of blood loss anemia. Patient transfused with 3 units of blood this admission 6 COPD with an FEV1 of 60% of predicted at baseline 7 Peripheral vascular disease with prior peripheral stent placements 8 Right carotid artery stenosis at 50-69% 9 History of marijuana use 10 Diabetes mellitus, type II, insulin drip for blood sugar control, running at 1.5 units per hour. 11 History of bladder cancer status post radiation/chemotherapy and subsequent surgery 12 History of noncompliance Plan: Today's chest x-ray and blood gases have been reviewed, FiO2 will be dropped down to 40%, will proceed with daily interruption a sedation, hold the Diprivan, if patient is agitated may use Precedex. Assess neurologic status, if patient is calm and following command May attempt pressure support trial, otherwise continue with empiric antibodies, all culture data remains negative thus far, patient is afebrile, today's chest x-ray still shows diffuse bilateral infiltrates and pleural effusion, continue with IV Lasix. Continue tube feedings, labs have been reviewed, no vasopressor support, patient is however in A. fib RVR with slightly tachycardic rate. Defer to CT surgery and cardiology for rate control medications. We'll continue to follow I performed a history & physical examination of the patient and discussed their management with my nurse practitioner, Elva Newberry. I reviewed the nurse practitioner's note and agree with the documented findings and plan of care. Lung sounds are positive for clear breath sounds. The findings and the impression was discussed with the patient. I attest to the documentation by the nurse practitioner. Critical care time is greater then 30 minutes Time with Patient: Greater than 30
[2019-11-22] MEDS: DEXMEDETOMIDINE/0.9% NACL(PMX) 400 MCG in EMPTY BAG 1 BAG IV SCH (11:08)
[2019-11-22 11:35] LABS: Glucose,Whole Blood 126 mg/dL (75-99)
--- NOTE | 2019-11-22 12:00 | ECHOF ---
Referral Reason:Acute respiratory failure MEASUREMENTS -------- HEIGHT: 233.7 cm WEIGHT: 90.3 kg BP: 128/65 LVLd A4C: 7.2 cm LVEDV MOD A4C: 75 ml LVLs A4C: 6.7 cm LVESV MOD A4C: 36 ml LVEF MOD A4C: 52 % SV MOD A4C: 39 ml LVLd A2C: 6.8 cm LVEDV MOD A2C: 72 ml LVLs A2C: 6.3 cm LVESV MOD A2C: 48 ml LVEF MOD A2C: 34 % SV MOD A2C: 25 ml EF Biplane: 38 % LVEDV MOD BP: 64 ml LVESV MOD BP: 40 ml TR Vmax: 2.52 m/s TR maxP.40 mmHg FINDINGS -------- Atrial fibrillation. Limited Study Post CABG Overall left ventricular systolic function is mildly impaired with, an EF between 45 - 50 %. Mild mitral regurgitation is present. Mild tricuspid regurgitation present. There is no pericardial effusion. CONCLUSIONS -------- 1. Atrial fibrillation. 2. Limited Study 3. Post CABG 4. Overall left ventricular systolic function is mildly impaired with, an EF between 45 - 50 %. 5. Mild mitral regurgitation is present. 6. Mild tricuspid regurgitation present. 7. There is no pericardial effusion. [employer] SUPERVISOR: JOSE DANIEL Stanley
[2019-11-22] MEDS ORDERED: NOREPINEPHRIN 4 MG-0.9% NS PMX 4 MG/250 ML ML IV ONE (12:52)
--- NOTE | 2019-11-22 13:48 | P.PN ---
Subjective Progress Note Date: 11/22/19 Patient was seen for a follow-up. Patient to be intubated on 11/20/2019. Patient sedated. Objective - Vital Signs Vital signs: Vital Signs Temp 98.5 F 11/22/19 13:23 Pulse 80 11/22/19 13:23 Resp 16 11/22/19 13:23 BP 101/45 11/22/19 13:23 Pulse Ox 100 11/22/19 13:23 Intake & Output 11/21/19 11/22/19 11/22/19 18:59 06:59 18:59 Intake Total 1395.071 581.836 643.221 Output Total 1570 1900 1350 Balance -174.929 -1318.164 -706.779 Weight 90.4 kg 90.4 kg Intake: IV 351 153 91 .9NS @ 10 ml/hr 100 120 70 Normal Saline Pressure 51 33 21 Bag Piperacillin-Tazobactam 3 200 .375 gm In Sodium Chloride 0.9% 100 ml @ 25 mls/hr IVPB Q8HR [facility] Rx# :[id number] Intake, IV Titration 159.071 53.836 52.221 Amount DOPamine DRIP 800 mg In 58.637 Dextrose/Water 1 250ml. bag @ 2 MCG/KG/MIN 3.304 mls/hr IV .Q24H [facility] Rx#: [id number] Dexmedetomidine/0.9% NaCl 6.931 (Pmx) 400 mcg In Empty Bag 1 bag @ Titrate IV . Q0M [facility] Rx#:[id number] propofoL 1,000 mg In 100.434 53.836 45.29 Empty Bag 1 bag @ Titrate IV .Q0M [facility] Rx#: [id number] Tube Feeding 825 375 440 Blood Product 0 Rc As-1 Unit 0 [id number] Other 60 60 Output: Urine 1570 1900 1350 Other: Voiding Method Indwelling Catheter Indwelling Catheter Indwelling Catheter ABP, PAP, CO, CI - Last Documented Arterial Blood Pressure 63/33 Pulmonary Artery Pressure 30/17 Cardiac Output 4.5 Cardiac Index 2.3 - Exam Patient's examination limited because he is not intubated, sedated. - Labs CBC & Chem 7: 11/22/19 04:40 11/22/19 04:40 Labs: Abnormal Lab Results - Last 24 Hours (Table) 07/16/20 07/26/20 07/26/20 Range/Units 06:25 15:52 20:27 RBC (4.30-5.90) m/uL Hgb (13.0-17.5) gm/dL Hct (39.0-53.0) % MCV (80.0-100.0) fL RDW (11.5-15.5) % Eosinophils # (0-0.7) k/uL ABG pH (7.35-7.45) ABG pO2 (83-108) mmHg ABG HCO3 (21-25) mmol/L ABG Total CO2 (19-24) mmol/L ABG O2 Saturation (94-97) % BUN (9-20) mg/dL Glucose (74-99) mg/dL POC Glucose (mg/dL) 160 H 151 H (75-99) mg/dL AST (17-59) U/L ALT (4-49) U/L Alkaline Phosphatase (38-126) U/L Total Protein (6.3-8.2) g/dL Albumin (3.5-5.0) g/dL Crossmatch See Detail 11/22/19 11/22/19 11/22/19 Range/Units 04:26 04:39 04:40 RBC 2.19 L (4.30-5.90) m/uL Hgb 7.0 L (13.0-17.5) gm/dL Hct 22.1 L (39.0-53.0) % MCV 100.6 H (80.0-100.0) fL RDW 16.8 H (11.5-15.5) % Eosinophils # 1.0 H (0-0.7) k/uL ABG pH 7.51 H (7.35-7.45) ABG pO2 123 H (83-108) mmHg ABG HCO3 31 H (21-25) mmol/L ABG Total CO2 32 H (19-24) mmol/L ABG O2 Saturation 99.2 H (94-97) % BUN (9-20) mg/dL Glucose (74-99) mg/dL POC Glucose (mg/dL) 104 H (75-99) mg/dL AST (17-59) U/L ALT (4-49) U/L Alkaline Phosphatase (38-126) U/L Total Protein (6.3-8.2) g/dL Albumin (3.5-5.0) g/dL Crossmatch 11/22/19 11/22/19 11/22/19 Range/Units 04:40 09:41 10:10 RBC (4.30-5.90) m/uL Hgb (13.0-17.5) gm/dL Hct (39.0-53.0) % MCV (80.0-100.0) fL RDW (11.5-15.5) % Eosinophils # (0-0.7) k/uL ABG pH (7.35-7.45) ABG pO2 (83-108) mmHg ABG HCO3 (21-25) mmol/L ABG Total CO2 (19-24) mmol/L ABG O2 Saturation (94-97) % BUN 38 H (9-20) mg/dL Glucose 100 H (74-99) mg/dL POC Glucose (mg/dL) 111 H (75-99) mg/dL AST 93 H (17-59) U/L ALT 286 H (4-49) U/L Alkaline Phosphatase 199 H (38-126) U/L Total Protein 5.6 L (6.3-8.2) g/dL Albumin 2.8 L (3.5-5.0) g/dL Crossmatch See Detail 11/22/19 Range/Units 11:33 RBC (4.30-5.90) m/uL Hgb (13.0-17.5) gm/dL Hct (39.0-53.0) % MCV (80.0-100.0) fL RDW (11.5-15.5) % Eosinophils # (0-0.7) k/uL ABG pH (7.35-7.45) ABG pO2 (83-108) mmHg ABG HCO3 (21-25) mmol/L ABG Total CO2 (19-24) mmol/L ABG O2 Saturation (94-97) % BUN (9-20) mg/dL Glucose (74-99) mg/dL POC Glucose (mg/dL) 126 H (75-99) mg/dL AST (17-59) U/L ALT (4-49) U/L Alkaline Phosphatase (38-126) U/L Total Protein (6.3-8.2) g/dL Albumin (3.5-5.0) g/dL Crossmatch Microbiology - Last 24 Hours (Table) 11/21/19 12:40 Gram Stain - Preliminary Sputum Sputum Culture - Preliminary Assessment and Plan Assessment: * Probable subacute stroke involving multiple patchy areas in the left MCA vas cular territory. Rule out cardioembolic source. Patient had transient atrial fibrillation, therefore cardioembolic stroke is definitely a possibility. * Status post coronary artery bypass grafting. * Right ICA stenosis 50-69% per carotid ultrasound. * Hypertension * Diabetes * Medical noncompliance in the past. * Tobacco use. Plan: * Await MRI of the brain without contrast, and MRA of the brain without contrast, when cardiology clears patient. * Patient's 2-D echo showed no obvious embolic source at this time. * Carotid Doppler showed 50-69% stenosis proximal right ICA. * Patient currently on aspirin 325 mg and Plavix 75 mg. Also on Lipitor 40 mg. * Patient reintubated. * Please call neurology, when patient extubated, or if patient gets MRI done, then for a neurological follow-up. * Neurology will sign off.
[2019-11-22 16:12] LABS: Glucose,Whole Blood 145 mg/dL (75-99)
--- NOTE | 2019-11-22 16:33 | P.PN ---
Subjective Progress Note Date: 11/22/19 Principal diagnosis: Coronary artery disease and non-ST elevation myocardial infarction, status post 5 vessel bypass surgery 64-year-old male patient with coronary artery disease, noncompliant to medication. The patient came in with subendocardial infarction and cardiac catheterization showed diffuse coronary artery disease with critical stenosis. The patient underwent coronary artery bypass on 11/08/2019. The patient underwent bypass 5 with GR to LAD, radial artery graft to acute marginal, saphenous finger after 2 posterior lateral and sick ration saphenous vein to first and second diagonal performed on cardiac pulmonary bypass with beating heart. 11/20/19, patient is seen and evaluated in ICU; extubated yesterday. Patient is awake, follows very simple instructions, remains on 8 L high flow nasal cannula, O2 saturations 94%. Patient is hemodynamically stable not requiring any inotropes or pressors. Patient had an episode of A. fib with RVR yesterday and he received 2 boluses of amiodarone. Presently in normal sinus rhythm. Patient follows again simple instructions, but remains confused, oriented 1 to person. Continues to have Dobbhoff tube in place, and receiving enteral feeding. Remains on antibiotics in the form of Zosyn for presumptive aspiration. Laboratory review shows a white blood count of 20.5, hemoglobin 7.4; chemical profile significant for mild elevation in BUN of 36 Patient will continue to be monitored in ICU with empiric IV antibiotics; plan to wean off O2 as able; patient remains on aspirin, Plavix and Cardizem; diuretic therapy was continued Patient will remain on Dobbhoff tube feeding with plan to increase ambulation as possible 11/21/2019 Patient is seen and evaluated in ICU; patient reintubated yesterday after developing acute respiratory distress after developing atrial fibrillation with RVR which was treated with multiple medications including Cardizem drip and eventually metoprolol was increased to 50 mg 3 times a day; patient became bradycardic and developed pulmonary edema; patient remains sedated with propofol; CT angiogram of the chest was done which was negative for PE; chest x- ray shows improved pulmonary edema Patient remains on aspirin, Plavix and diuretics; continue with empiric antibiotic therapy; remains on nutritional support with Glucerna 11/22/2019 Patient is seen and evaluated in ICU; remains intubated and mechanically ventilated; patient had repeat chest x-ray this morning showing diffuse bilateral infiltrates and pleural effusion along with pneumothorax; patient remains on IV Lasix and is diuresing well; remains on tube feeding in form of Glucerna at rate of 75 mL per hour; blood pressure is stable without any pressor support; patient remains on IV antibiotics in the form of Zosyn and vancomycin; cultures have been negative so far Objective - Vital Signs Vital signs: Vital Signs Temp 97.9 F 11/22/19 08:00 Pulse 111 H 11/22/19 09:12 Resp 19 11/22/19 08:00 BP 113/64 11/21/19 07:00 Pulse Ox 100 11/22/19 08:00 Intake & Output 11/21/19 11/22/19 11/22/19 18:59 06:59 18:59 Intake Total 1395.071 581.836 131 Output Total 1570 1900 215 Balance -174.929 -1318.164 -84 Weight 90.4 kg Intake: IV 351 153 26 .9NS @ 10 ml/hr 100 120 20 Normal Saline Pressure 51 33 6 Bag Piperacillin-Tazobactam 3 200 .375 gm In Sodium Chloride 0.9% 100 ml @ 25 mls/hr IVPB Q8HR [facility] Rx# :[id number] Intake, IV Titration 159.071 53.836 Amount DOPamine DRIP 800 mg In 58.637 Dextrose/Water 1 250ml. bag @ 2 MCG/KG/MIN 3.304 mls/hr IV .Q24H [facility] Rx#: [id number] propofoL 1,000 mg In 100.434 53.836 Empty Bag 1 bag @ Titrate IV .Q0M [facility] Rx#: [id number] Tube Feeding 825 375 75 Other 60 30 Output: Urine 1570 1900 215 Other: Voiding Method Indwelling Catheter Indwelling Catheter ABP, PAP, CO, CI - Last Documented Arterial Blood Pressure 122/61 Pulmonary Artery Pressure 30/17 Cardiac Output 4.5 Cardiac Index 2.3 - Exam Head: Atraumatic, normocephalic, HEENT:[Neck is supple.] [No neck masses.] [No thyromegaly.] [No JVD.] Moist mucous membranes, PERRLA, EOMI, no icterus. Right IJ triple-lumen catheter is noted. Chest: Symmetrical chest expansion, crackles at the bases no rhonchi and no wheezes.] Cardiac Exam: [Normal S1 and S2, no S3 gallop, no murmur.] Abdomen: [Soft, nontender, no megaly, no rebound, no guarding, normal bowel sounds.] Extremities: [No clubbing, no edema, no cyanosis.] Neurological Exam: Awake, follows simple instructions, oriented 1. - Labs CBC & Chem 7: 11/22/19 04:40 11/22/19 04:40 Labs: Abnormal Lab Results - Last 24 Hours (Table) 11/21/19 11/21/19 11/21/19 Range/Units 11:37 15:52 20:27 RBC (4.30-5.90) m/uL Hgb (13.0-17.5) gm/dL Hct (39.0-53.0) % MCV (80.0-100.0) fL RDW (11.5-15.5) % Eosinophils # (0-0.7) k/uL ABG pH (7.35-7.45) ABG pO2 (83-108) mmHg ABG HCO3 (21-25) mmol/L ABG Total CO2 (19-24) mmol/L ABG O2 Saturation (94-97) % BUN (9-20) mg/dL Glucose (74-99) mg/dL POC Glucose (mg/dL) 119 H 160 H 151 H (75-99) mg/dL AST (17-59) U/L ALT (4-49) U/L Alkaline Phosphatase (38-126) U/L Total Protein (6.3-8.2) g/dL Albumin (3.5-5.0) g/dL 11/22/19 11/22/19 11/22/19 Range/Units 04:26 04:39 04:40 RBC 2.19 L (4.30-5.90) m/uL Hgb 7.0 L (13.0-17.5) gm/dL Hct 22.1 L (39.0-53.0) % MCV 100.6 H (80.0-100.0) fL RDW 16.8 H (11.5-15.5) % Eosinophils # 1.0 H (0-0.7) k/uL ABG pH 7.51 H (7.35-7.45) ABG pO2 123 H (83-108) mmHg ABG HCO3 31 H (21-25) mmol/L ABG Total CO2 32 H (19-24) mmol/L ABG O2 Saturation 99.2 H (94-97) % BUN (9-20) mg/dL Glucose (74-99) mg/dL POC Glucose (mg/dL) 104 H (75-99) mg/dL AST (17-59) U/L ALT (4-49) U/L Alkaline Phosphatase (38-126) U/L Total Protein (6.3-8.2) g/dL Albumin (3.5-5.0) g/dL 11/22/19 Range/Units 04:40 RBC (4.30-5.90) m/uL Hgb (13.0-17.5) gm/dL Hct (39.0-53.0) % MCV (80.0-100.0) fL RDW (11.5-15.5) % Eosinophils # (0-0.7) k/uL ABG pH (7.35-7.45) ABG pO2 (83-108) mmHg ABG HCO3 (21-25) mmol/L ABG Total CO2 (19-24) mmol/L ABG O2 Saturation (94-97) % BUN 38 H (9-20) mg/dL Glucose 100 H (74-99) mg/dL POC Glucose (mg/dL) (75-99) mg/dL AST 93 H (17-59) U/L ALT 286 H (4-49) U/L Alkaline Phosphatase 199 H (38-126) U/L Total Protein 5.6 L (6.3-8.2) g/dL Albumin 2.8 L (3.5-5.0) g/dL Microbiology - Last 24 Hours (Table) 11/21/19 12:40 Gram Stain - Preliminary Sputum Sputum Culture - Preliminary Assessment and Plan Assessment: 1. Coronary artery disease and non-ST elevation myocardial infarction status post CABG 5, postoperative day #12 - Patient is status post successful extubation on 11/19/19. Patient remains on high flow nasal cannula oxygen with plans to titrate as able - Patient remains on empiric antibiotic therapy; cultures have been negative so far 2. Altered mental status most likely secondary to metabolic encephalopathy suspected, CVA, please refer to neurology evaluation. 3. New onset atrial fibrillation and RVR; remains rate controlled on Cardizem. 4. Type 2 diabetes; continue with Levemir 20 units subcu daily at bedtime; m onitor Accu-Cheks every before meals and at bedtime with insulin sliding scale. 5. Peripheral vessel occlusive disease with prior peripheral stent placement. 6. Moderate severe COPD FEV1 of 60%; not in exacerbation; continue with bronchodilator nebulizer treatment and home inhaler therapy. 7. Acute kidney injury and acute shock liver secondary to hypotension, improving 8. DVT prophylaxis; subcu heparin CODE STATUS; full code
--- NOTE | 2019-11-22 17:10 | PN ---
PROGRESS NOTE Dillan is a 64-year-old gentleman who is currently intubated on the vent. Has known CAD, underwent bypass surgery and has had a fairly complicated postop recovery. I am seeing him for the first time today and I reviewed his previous information. A limited echo today showed an ejection fraction of 45% with mild mitral and tricuspid regurgitation. Patient is currently on Cordarone 200 b.i.d., aspirin, Lipitor, Plavix, Lasix, Lopressor. On exam, heart rate is 100 beats per minute, irregular, blood pressure is 110/57, respiratory is 18. Chest exam reveals diminished air entry bilaterally. Heart exam reveals first and second heart sounds. No gallop. Exam of extremities reveals mild edema. LABS: Show a hemoglobin of 7, platelet count is 404, potassium is 4, creatinine is 1.1. ASSESSMENT: 1. CAD status post CABG. 2. Respiratory insufficiency. 3. Postoperative atrial fibrillation. PLAN: Continue current supportive care. MMODL / JASEN: [id number] /
--- NOTE | 2019-11-22 19:36 | PN ---
PROGRESS NOTE DATE OF SERVICE: 11/22/2019 REASON FOR FOLLOWUP: 1. Aspiration pneumonitis. 2. Diarrhea with a question of C difficile. INTERVAL HISTORY: The patient is currently afebrile. The patient is hemodynamically stable. FiO2 is currently 40%. Still has diarrhea, but no worsening has been reported or any other changes by nursing staff. PHYSICAL EXAMINATION: Blood pressure 113/51 with a pulse of 80, temperature 98.1. He is 97% on 40% FiO2. General description is an elderly male lying in bed in no distress. RESPIRATORY SYSTEM: Unlabored breathing with decreased breath sounds at the base. No wheeze. HEART: S1, S2. Regular rate and rhythm. ABDOMEN: Soft. No tenderness. LABS: Hemoglobin is 7, white count 9.9, BUN of 38, creatinine 1.17. Sputum culture is currently pending. DIAGNOSTIC IMPRESSION AND PLAN: 1. Patient with acute respiratory failure which is multifactorial with a possible component of aspiration pneumonitis. We are waiting for the sputum culture to finalize. Continue with the Zosyn. 2. Patient with diarrhea and a question of possible Clostridium difficile. White count did respond to vancomycin. To continue, and will monitor clinical course closely. MMODL / IJN: [id number] /
[2019-11-22 19:59] LABS: Glucose,Whole Blood 182 mg/dL (75-99)
[2019-11-22] MEDS: INSULIN DETEMIR (LEVEMIR) 100 UNIT/ML SYR SQ SCH (21:59)
[2019-11-22 23:47] LABS: Glucose,Whole Blood 148 mg/dL (75-99)
[2019-11-23] MEDS: VANCOMYCIN ORAL SOLUTION 250 MG/5 ML BOTTLE PO SCH ×4 (01:00→21:38)
[2019-11-23] MEDS: DEXMEDETOMIDINE/0.9% NACL(PMX) 400 MCG in EMPTY BAG 1 BAG IV SCH ×2 (01:40→16:47)
[2019-11-23 03:48] LABS: Glucose,Whole Blood 137 mg/dL (75-99)
[2019-11-23] MEDS: INSULIN ASPART (NovoLOG) 100 UNIT/ML VIAL SQ SCH ×10 (03:51→20:10)
[2019-11-23 05:27] LABS: Anisocytosis Slight; Basophils # (A) 0.1 k/uL (0-0.2); Basophils % (A) 1 %; Eosinophils # (A) 0.7 k/uL (0-0.7); Eosinophils % (A) 8 %; HCT 26.5 % (39.0-53.0); HGB 8.3 gm/dL (13.0-17.5); Hypochromasia Marked; Lymphocytes % (A) 12 %; MCH 31.3 pg (25.0-35.0); MCHC 31.5 g/dL (31.0-37.0); MCV 99.4 fL (80.0-100.0); Macrocytosis Slight; Mean Platelet Volume 8.5; Monocytes # (A) 0.6 k/uL (0-1.0); Monocytes % (A) 7 %; Neutrophils % (A) 69 %; Platelet Count 388 k/uL (150-450); Poikilocytosis Slight; RBC 2.66 m/uL (4.30-5.90); RDW 16.2 % (11.5-15.5); WBC 8.8 k/uL (3.8-10.6)
[2019-11-23 05:42] LABS: Albumin 2.9 g/dL (3.5-5.0); Calcium 8.5 mg/dL (8.4-10.2); Magnesium 2.3 mg/dL (1.6-2.3); Total Bilirubin 0.9 mg/dL (0.2-1.3); Total Protein 5.7 g/dL (6.3-8.2)
[2019-11-23] MEDS ORDERED: POTASSIUM BICARBONATE/CIT AC 20 MEQ TABLET.EFF PO ONE (05:47)
[2019-11-23] MEDS: FERROUS SULFATE ORAL ELIXIR 300 MG/5 ML CUP PO SCH ×2 (06:42→17:02)
[2019-11-23] MEDS: ASCORBIC ACID 500 MG TAB PO SCH ×2 (06:42→17:03)
[2019-11-23] MEDS: PANTOPRAZOLE 40 MG TABLET PO SCH (06:42)
[2019-11-23 07:08] LABS: ABG Base Excess 6.4 mmol/L; ABG HCO3 29 mmol/L (21-25); ABG Oxygen Saturation 97.3 % (94-97); ABG PCO2 36 mmHg (35-45); ABG PH 7.52 (7.35-7.45); ABG PO2 82 mmHg (83-108); ABG TCO2 30 mmol/L (19-24); Allen Test Performed? Yes
[2019-11-23] MEDS: IPRATROPIUM-ALBUTEROL 3 ML NEB INHALATION SCH ×4 (07:20→19:39)
--- NOTE | 2019-11-23 07:42 | P.PN ---
Subjective Progress Note Date: 11/23/19 Principal diagnosis: Coronary artery disease with unstable angina, and non-ST elevated KS, status post 5 vessel bypass grafting This is a 64-year-old male patient with coronary artery disease, noncompliant to medication. The patient came in with subendocardial infarction and cardiac catheterization showed diffuse coronary artery disease with critical stenosis. The patient underwent coronary artery bypass today. The patient underwent bypass 5 with GR to LAD, radial artery graft to acute marginal, saphenous finger after 2 posterior lateral and sick ration saphenous vein to first and second diagonal performed on cardiac pulmonary bypass with beating heart. Left atrial appendage was also added. The patient currently is in the intensive care unit. I centimeters in regards to the ICU. He was initially on a SIMV mode of ventilation at the rate of 12 with a tidal volume of 500 and FiO2 of 100% with a PEEP of 5 and a pressure support of 5. The blood gas showed a pH of 7.318 with a pCO2 of 49 and pO2 of 226. The chest x-ray postop showed volume overload with pulmonary vascular congestion and interstitial edema. The lines and tubes are all in good location. Based on all this, I increased the respiratory rate of 24. I do not FiO2 down to 60%. Current cardiac output is at 2.6 with an index of 5. The patient has 2 mediastinal 1 right pleural and 1 left pleural chest tube. Ultrasound of the sternal chest tubes has been around 150 mL since he arrived from the operating room. No evidence of any air leak. The patient is currently on a Cardizem drip and milrinone drip and the patient is on insulin drip for blood sugar control.he is well sedated. Is quite symptoms with the mechanical ventilator. Postoperative hemoglobin is at 8.2. Platelet count is down to 78. On today's evaluation of 11/09/2019, I'm seeing the patient for a follow-up. The patient was operated on yesterday and the patient underwent a five-vessel bypass surgery including a GR and the radial artery harvest. The patient was extubated within 6 hours and currently the patient is on oxygen by nasal cannula at 5 L. He is pleasantly confused this morning. He is able to sit up on a recliner. Hemodynamically, he did have some early of hypotension earlier this morning and for that reason the patient was given 750 mL of colloids and following that he was started on low-dose levo fed at 0.03 g per KG per minute. The patient remains on Primacor running at 0.125 g and the patient is also on Cardizem at 5 mg an hour. Insulin drip is running at 2.5 units an hour. Hemod ynamically, the patient's cardiac output is at 4.2 with an index of 2.2. The pulmonary artery pressure 28/12. CVP is at 11. Cardiac output is at 4.2. He is in his normal sinus rhythm. He has a backup VVI at the rate of 50. His chest x-rays showing small bilateral apical pneumothoraces. All of the chest tubes are in good location. The right and left pleural chest tube connected and they have drained approximately 130 mL over the past 8 hours. He is tender tubes are also connected and it has drained approximately 140 mL over the past 8 hours. The patient otherwise has no specific complaints. Sternum stable clean and intact. He is producing urine output in the order of 20-30 mL an hour. No other significant events overnight. Hemoglobin stable at 7.9. The platelet count improved to 102. On 11/10/2019, the patient is postop day #2. The patient is confused. He is nonverbal. He is not answering questions and is not following any commands. Upon watching him, I felt that the left side of the body slightly cachectic compared to the right. Nevertheless, the same as the patient was not cheered by the nursing staff been observing this patient longer to me. He has no prefer ential gaze toseizure activity. No reported shortness of breath or respiratory distress at this point in time. Mediastinal chest tubes and the pleural chest tubes are all in place. The patient has an AV epicardial pacer wire grounded to generator. As of yesterday, the patient was taken off the pressors. The patient is currently off the levo fed and he is off the Primacor. The patient also had the ALYX drains removed from the left lower extremity and arm. No other significant issues for now. No cardiac arrhythmias. No nausea. No vomiting. No emesis. He is resting comfortably in bed. The patient's hemoglobin is at 7.0. Was a causative 4.7. Diminished pulmonary vascular congestion and infiltration of the right lung base. There is resolution of the previously described bilateral pneumothoraces. On today's evaluation of 11/11/2019, the patient remains confused. I was told that he was able to say some few words. I was also told by the nursing staff that the patient was witnessed EXTREMITIES WITHOUT ANY LIMITATION IN PATIENT HAVING ANY FOCAL NEUROLOGICAL DEFICIT. NOTE THAT THE PATIENT EARLIER THIS MORNING WITH ATRIAL FIBRILLATION WITH RAPID VENTRICULAR RESPONSE. HIS HEART RATE WENT UP TO 180 beats per minute without any significant hypotension. That point, the patient was given amiodarone boluses and the patient received a total of 3 boluses prior to my arrival. He was also given 5 mg of IV Lopressor. Her, bilateral, the patient was still in atrial fibrillation. He was trying to hurt at times he thought it was going down. His baseline rhythm was atrial fibr illation and heart rate was in the range of 100-120. The patient denied having any chest pain. Sternum was stable treatment intact. No reported fever or chills. The mediastinal chest 11 already been removed yesterday. The right and the left pleural chest tubes are still in place and output is being noted. Chest x-ray from this morning showed adequate expansion of both lungs without evidence of any pneumothorax. No evidence of any pulmonary edema. The patient was being given Lasix 20 mg IV push every 12 hours. Hemoglobin from this morning was down to 6.7 and the patient was ordered to get a unit of packed RBC. Currently is postoperative #3 post 5 vessel coronary artery bypass surgery. On 11/12/2019 patient seen in follow-up in the intensive care unit, he is very restless on today's exam, although nursing reports some improvement in his neurological status, and apparently patient is answering questions appropriately, and he knows he is in the hospital, and he is given verbal r esponses to questions. he is awake and alert, he is restless, but appears to be in no acute distress, he is moving his legs and arms bilaterally, squirming in bed. Does not appear to be in any respiratory distress. He is currently on 5 L of oxygen, with pulse ox of 100%, hemodynamically patient is stable, no fever or chills. Lactate of Ringer's infusing at a rate of 40 ML per hour. Today's est x-ray has been reviewed showing increasing airspace opacity of the right upper lobe, similar prominent interstitial markings, no pneumothorax, no pleural effusions. Left pleural chest tube is in place, with a total output of 340 ML in the last 24 hours, right pleural chest tube put out 380 mL of serosanguineous thin output in the last 24 hours, media still chest tubes have been discontinued. Patient has produced 1.3 L and urine output in the last 24 hours. Junior catheter remains in place. Today's lab work has been reviewed, showing white blood cell count of 17.6, hemoglobin is 9.3, sodium of 138, potassium 3.8, chloride is 108, CO2 is 20, B1 is 39, creatinine is 1.17. She is in sinus arrhythmia with frequent PACs on the monitor, amiodarone drip has been switched to oral amiodarone 400 mg twice daily, patient is on oral Cardizem 30 mg every 6 hours, and oral metoprolol 50 mg twice daily. Blood cultures have shown no growth at the 24-hour elly. Patient has been afebrile. communications equipment operator is at the bedside in view of confusion and agitation, Junior catheter still has hematuria, which is dark in color, yesterday's brain CT showed patchy. Ventricular and deep white matter changes, left greater than right which have progressed from 01/09/2019, and areas of subacute ischemia are not excluded, MRI can further evaluate, no acute intracranial hemorrhage or midline shift. On 11/17/2019 patient seen in follow-up in the intensive care unit, she is sedated, intubated, on mechanical ventilator, current vent settings are assist- control with a rate of 16, tidal and was 450, FiO2 is 40%, and PEEP of 5. This morning his blood gases reveal pO2 of 92, pCO2 34, pH is 7.47. Current IV drips include 0.9 normal saline at a rate of 5 ML per hour, and improving and is at 60 mics per kilo per minute, tube feedings are with vital high-protein at a rate of 54, with a goal of 54 with standard water flushes with 30 mL of water every 4 hours. Patient was given daily traction of sedation yesterday, he awoke, and reportedly follow commands, but quickly became very tachypneic and hypertensive and had to be placed back on mechanical ventilator. His chest x-ray shows stable findings, persistent central vascular congestion and bibasilar opacities. Small to moderate-sized bilateral pleural effusions, appear to be stable. Patient remains on IV Lasix at 40 mg every 12 hours, and he is very slightly negative, only 6 mL, however he did produced over 3 L in urine output in the last 24 hours. He is off the vasopressor support, his weight is stable, he does have some generalized edema involving his upper and lower extremities. Remains on empiric antibiotics in the form of cefepime and vancomycin. He is afebrile, his blood urine and sputum cultures have shown no growth thus far. Today's labs have been reviewed. His white blood cell is stable at 15, hemoglobin is 7.7, sodium is 136, the rest of electrolytes were within normal limits, B1 is 33, and creatinine is 1.04, his liver enzymes are coming down, AST is down to 130, ALT is 692, alk phos is fairly stable at 195, his pro-calcitonin level was elevated and 0.99, suggesting presence of bacterial infection. Patient has been afebrile, abdomen is soft, nontender, patient is tolerating tube feedings. His hematuria has cleared up. On 11/18/2019 patient seen in follow-up in the intensive care unit. Patient is still intubated, his sedation has been on hold since 7:00 this morning, patient is awake, he is following basic commands, squeezing with his left hand, however his right hand is flaccid, and patient is not able to squeeze with the right hand. His current vent settings are assist-control with a rate of 16, tidal volume is 450, FiO2 is 40%, and PEEP of 5. This is blood gases showed pO2 106, pCO2 35, and pH of 7.49. Currently on no drips other than 0.9 normal saline at a rate of KVO. Patient has been tolerating tube feedings. Yesterday we repeated his CT of the brain which showed no evidence of acute hemorrhage, areas of patchy low attenuation in the left parietal white matter previously noted on previous brain scan this could be on the basis of subacute ischemia. MRI of the brain was recommended, neurology consultation was requested and patient is suspected to have probable subacute stroke involving multiple patchy areas in the left MCA vascular territory consideration of cardioembolic source. Patient did have transient atrial fibrillation. Follow-up MRI and MRA of the brain will be done once the patient is extubated and is able to travel down to the MRI department. Today's chest x-ray shows diffuse bilateral pleural parenchymal changes, no pneumothorax. Consider pulmonary edema, or underlying pneumonia. So far blood and urine and sputum cultures remain negative. Patient is afebrile, hemodynamically he stable, empiric antibiotic coverage is with Zosyn, vancomycin has been discontinued, ID service is following. Patient is on IV Lasix at 40 mg every 12 hours. He has produced 2.7 L and urine output over last 24 hours, he is in -280 mL fluid balance. He seems to get slightly agitated at times, becomes hypertensive, today she is following commands, we will try to keep him off sedation, to fully assess his mentation and neurological status, we will repeat LFTs, and ammonia level. On 11/22/2019 patient seen in follow-up in the intensive care unit. To recap patient was admitted to the hospital on 11/07/2019, and he had his 5 vessel coronary artery bypass grafting surgery and 11/08/2019 and patient was extubated on postoperative day 0 on 11/08/2019. In the postoperative period patient developed altered mental status worsening respiratory failure, symptomatic b radycardia and had to be emergently reintubated on 11/12/2019 and weaned and extubated on 11/19/2019. Patient is suspected to have sustained a subacute stroke involving multiple patchy areas in the left MCA distribution. He has not been able to travel to the MRI department for his follow-up MRI. Patient was weaned from the mechanical ventilator and extubated on 11/19/2019 last week however developed worsening hypoxia, pulmonary edema and had to be reintubated on 11/20/2019. Today she seen in the intensive care unit, sedated on 30 mics per kilo per minute of propofol infusion, and 0.9 normal seen at a rate of 10 ML per hour, he is intubated current vent settings are assist-control with a rate of 16, tidal line was 450, FiO2 is 50% and PEEP of 5, this was blood gases show pO2 of 123, pCO2 38 and pH of 7.51. His chest x-ray shows diffuse bilateral infiltrates and pleural effusion, sizable pneumothorax, interstitial pattern was noted. Patient remains on Lasix at 40 mg every 12 hours, diuresing, and he has made at 7.4 L in urine output in last 24 hours, and he is in -1.5 L net fluid balance over last 24 hours. He is receiving tube feedings with Glucerna 1.5 at a rate of 75 with a goal of 75 ML per hour. Afebrile and hemodynamically stable in the last 24 hours, not requiring any vasopressor support, today's labs have been reviewed showing limited cell count within normal limits at 9.9, hemoglobin is 7.0, electrolytes are within normal limits, BUN of 38, creatinine is 1.17, liver enzymes have steadily been improving, and AST is 93, ALT is 286, alkaline phosphatase was 199, his last ammonia level was back on the and was normal at less than 9. Blood sputum and urine cultures have shown no growth so far. Empiric and pneumatic coverage is with Zosyn and vancomycin On 11/15/2019 patient seen in follow-up in the intensive care unit, he opens eyes to verbal stimulation, he is following simple commands, he squeezing with his left hand, his right hand is quite weak, and almost flaccid. He is nodding his head appropriately to verbal questioning. Does not appear to be in any distress, yesterday we stopped his propofol infusion and put the patient on Precedex infusion which is currently infusing at a rate of 0.3 mics per kilo per hour. 0.9 normal saline at a rate of 20 ML, and he is tolerating his tube feedings of vital 1.2 at a rate of 70 with a goal of 70 with standard water flushes. His current vent settings are assist control with a rate of 16, tidal line is 450, FiO2 40% and PEEP of 5. Sometime in the last 24 hours patient has converted to sinus bradycardia, currently remains in sinus bradycardia with a rate of 54. Patient is currently being paced at AAI mode at a rate of 80 BPM. Hemodynamic patient stable, not on any pressors. Chest x-ray has been reviewed showing diffuse bilateral infiltrates and pleural effusions bilaterally, no sizable pneumothorax. Yesterday's ultrasound the chest showed a 4.8 cm pocket on the right and 3.2 cm pocket on the left. he remains on IV Lasix of 40 mg every 12 hours, and he is slightly positive net fluid balance, +111 mL over last 24 hours. He did however produced 3.2 L in urine output over the last 24 hours. He is on empiric antibiotics with Zosyn and oral vancomycin for possibility of C. diff, all his culture data has been negative thus far. Did have a low-grade fever this morning with a temp of 99.7F. Today's labs have been reviewed showing white blood cell count of 8.8, hemoglobin of 8.3, platelet count is 388, electrolytes are within normal limits, BUN is 39 creatinine is 1.21. His blood gas has been reviewed showing pO2 of 82, pCO2 of 36 and pH of 7.52. Dobbhoff tube is in place through which the patient is receiving tube feedings. lung sounds are clear, diminished at the bases, abdomen is soft, nontender Objective - Vital Signs Vital signs: Vital Signs Temp 99.7 F H 11/23/19 04:00 Pulse 80 11/23/19 07:24 Resp 25 H 11/23/19 06:00 BP 109/64 11/22/19 22:00 Pulse Ox 97 11/23/19 06:00 Intake & Output 11/22/19 11/23/19 11/23/19 18:59 06:59 18:59 Intake Total 2043.633 1357.814 83 Output Total 1765 1525 65 Balance 278.633 -167.186 18 Weight 90.4 kg 89 kg Intake: IV 749 316 13 .9NS @ 10 ml/hr 610 80 10 Normal Saline Pressure 39 36 3 Bag Piperacillin-Tazobactam 3 100 200 .375 gm In Sodium Chloride 0.9% 100 ml @ 25 mls/hr IVPB Q8HR [facility] Rx# :[id number] Intake, IV Titration 74.633 39.814 Amount Dexmedetomidine/0.9% NaCl 29.343 39.814 (Pmx) 400 mcg In Empty Bag 1 bag @ Titrate IV . Q0M [facility] Rx#:[id number] propofoL 1,000 mg In 45.29 Empty Bag 1 bag @ Titrate IV .Q0M [facility] Rx#: [id number] Tube Feeding 790 942 70 Blood Product 310 Rc As-1 Unit 310 [id number] Other 120 60 Output: Urine 1765 1525 65 Other: Voiding Method Indwelling Catheter Indwelling Catheter ABP, PAP, CO, CI - Last Documented Arterial Blood Pressure 102/45 Pulmonary Artery Pressure 30/17 Cardiac Output 4.5 Cardiac Index 2.3 - Exam GENERAL EXAM: intubated 64-year-old white male, with FiO2 50%, patient is awake, following simple commands, squeezing with his left hand, right hand is flaccid, currently on Precedex at 0.3 mics per kilo per hour HEAD: Normocephalic/atraumatic. EYES: Normal reaction of pupils, equal size. Conjunctiva pink, sclera white. NOSE: Clear with pink turbinates. Patient has a Dobbhoff feeding tube in place with tube feedings infusing THROAT: No erythema or exudates. NECK: No masses, no JVD, no thyroid enlargement, no adenopathy. CHEST: No chest wall deformity. Symmetrical expansion. Midsternal incision is clean dry and intact, interval removal of chest tubes, AV wires remain in place to external pacemaker, intrinsic rhythm is sinus bradycardia with a rate of 54, and patient is being paced AAI mode with a rate of 80 BPM LUNGS: Equal air entry with no crackles, wheeze, rhonchi or dullness. CVS: regular rate and rhythm, normal S1 and S2, no gallops, no murmurs, no rubs, ABDOMEN: Soft, nontender. No hepatosplenomegaly, normal bowel sounds, no guarding or rigidity. EXTREMITIES: No clubbing, no edema, no cyanosis, 2+ pulses and upper and lower extremities. MUSCULOSKELETAL: Muscle strength and tone normal. SPINE: No scoliosis or deformity SKIN: No rashes CENTRAL NERVOUS SYSTEM: Patient is awake and following simple commands - Labs CBC & Chem 7: 11/23/19 04:30 11/23/19 04:30 Labs: Abnormal Lab Results - Last 24 Hours (Table) 11/11/19 11/22/19 11/22/19 Range/Units 06:25 04:30 09:41 RBC (4.30-5.90) m/uL Hgb (13.0-17.5) gm/dL Hct (39.0-53.0) % RDW (11.5-15.5) % ABG pH (7.35-7.45) ABG pO2 (83-108) mmHg ABG HCO3 (21-25) mmol/L ABG Total CO2 (19-24) mmol/L ABG O2 Saturation (94-97) % BUN (9-20) mg/dL Glucose (74-99) mg/dL POC Glucose (mg/dL) 111 H (75-99) mg/dL ALT (4-49) U/L Alkaline Phosphatase (38-126) U/L Total Protein (6.3-8.2) g/dL Albumin (3.5-5.0) g/dL Prealbumin 14.0 L (18.0-42.0) mg/dL Crossmatch See Detail 11/22/19 11/22/19 11/22/19 Range/Units 10:10 11:33 16:10 RBC (4.30-5.90) m/uL Hgb (13.0-17.5) gm/dL Hct (39.0-53.0) % RDW (11.5-15.5) % ABG pH (7.35-7.45) ABG pO2 (83-108) mmHg ABG HCO3 (21-25) mmol/L ABG Total CO2 (19-24) mmol/L ABG O2 Saturation (94-97) % BUN (9-20) mg/dL Glucose (74-99) mg/dL POC Glucose (mg/dL) 126 H 145 H (75-99) mg/dL ALT (4-49) U/L Alkaline Phosphatase (38-126) U/L Total Protein (6.3-8.2) g/dL Albumin (3.5-5.0) g/dL Prealbumin (18.0-42.0) mg/dL Crossmatch See Detail 11/22/19 11/22/19 11/23/19 Range/Units 19:56 23:45 03:47 RBC (4.30-5.90) m/uL Hgb (13.0-17.5) gm/dL Hct (39.0-53.0) % RDW (11.5-15.5) % ABG pH (7.35-7.45) ABG pO2 (83-108) mmHg ABG HCO3 (21-25) mmol/L ABG Total CO2 (19-24) mmol/L ABG O2 Saturation (94-97) % BUN (9-20) mg/dL Glucose (74-99) mg/dL POC Glucose (mg/dL) 182 H 148 H 137 H (75-99) mg/dL ALT (4-49) U/L Alkaline Phosphatase (38-126) U/L Total Protein (6.3-8.2) g/dL Albumin (3.5-5.0) g/dL Prealbumin (18.0-42.0) mg/dL Crossmatch 11/23/19 11/23/19 11/23/19 Range/Units 04:30 04:30 05:40 RBC 2.66 L (4.30-5.90) m/uL Hgb 8.3 L (13.0-17.5) gm/dL Hct 26.5 L (39.0-53.0) % RDW 16.2 H (11.5-15.5) % ABG pH 7.52 H (7.35-7.45) ABG pO2 82 L (83-108) mmHg ABG HCO3 29 H (21-25) mmol/L ABG Total CO2 30 H (19-24) mmol/L ABG O2 Saturation 97.3 H (94-97) % BUN 39 H (9-20) mg/dL Glucose 131 H (74-99) mg/dL POC Glucose (mg/dL) (75-99) mg/dL ALT 244 H (4-49) U/L Alkaline Phosphatase 187 H (38-126) U/L Total Protein 5.7 L (6.3-8.2) g/dL Albumin 2.9 L (3.5-5.0) g/dL Prealbumin (18.0-42.0) mg/dL Crossmatch Microbiology - Last 24 Hours (Table) 11/21/19 12:40 Gram Stain - Preliminary Sputum Sputum Culture - Preliminary Assessment and Plan Plan: Assessment: 1 coronary artery disease without stable angina and non-STEMI. The patient un derwent five-vessel bypass surgery on 11/08/2019. CABG 5 with GR to LAD, left radial artery to obtuse marginal, saphenous vein to posterior lateral, sequential saphenous vein to first and second diagonal performed on cardiopulmonary bypass with beating heart. Epi-aortic ultrasound and ligation o f left atrial appendage with Atriclip. The patient is postop day #15. Hemodynamically stable. 2 recurrent acute hypoxic respiratory failure, multifactorial, patient was initially intubated for the original surgery on 11/08/2019 with extubation on 11/08/2019, patient was re-intubated on 11/12/2019, for symptomatic bradycardia, worsening lactic acidosis, of unclear etiology. Patient was successfully weaned and extubated on 11/19/2019, and subsequently reintubated on 11/20/2019 for worsening hypoxemia related to pulmonary edema and A. fib with RVR. Antibiotics have been given empirically, cultures remain negative 3 altered mental status likely related to metabolic encephalopathy, subacute CVA involving the left MCA distribution please refer to the neurology evaluation 4 new-onset atrial fibrillation with RVR, expected outcome of surgery, intermittent requiring amiodarone infusion. On 11/22/2019 patient is in A. fib with slightly tachycardic rate. On 11/23/2019 patient had converted to sinus bradycardia, with a rate of 54, and patient is being paced at AAI mode with a rate of 80 BPM 5 blood loss anemia , expected outcome of surgery, and this is likely of blood loss anemia. Patient transfused with 3 units of blood this admission 6 COPD with an FEV1 of 60% of predicted at baseline 7 Peripheral vascular disease with prior peripheral stent placements 8 Right carotid artery stenosis at 50-69% 9 History of marijuana use 10 Diabetes mellitus, type II, insulin drip for blood sugar control, running at 1.5 units per hour. 11 History of bladder cancer status post radiation/chemotherapy and subsequent surgery 12 History of noncompliance Plan: Continue with current dose of IV Lasix, his chest x-ray today shows persistence of interstitial prominence, bilateral infiltrates and small pleural effusions. Ultrasound of the chest has been reviewed and will continue diuretic therapy, patient remains on empiric antibiotics oral vancomycin for possibility of C. diff colitis, continues to have loose stools. Low-grade fever this morning, but hemodynamically patient is stable, he is awake following commands, we will try a pressure support trial support of 10, and CPAP of 5. We'll obtain a blood gas following his trial. We'll continue to monitor closely in the ICU I performed a history & physical examination of the patient and discussed their management with my nurse practitioner, Elva Newberry. I reviewed the nurse practitioner's note and agree with the documented findings and plan of care. Lung sounds are positive for clear breath sounds. The findings and the impression was discussed with the patient. I attest to the documentation by the nurse practitioner. Critical care time is greater then 30 minutes Time with Patient: Greater than 30
--- NOTE | 2019-11-23 08:16 | XR ---
EXAMINATION TYPE: XR chest 1V portable DATE OF EXAM: 11/23/2019 CLINICAL HISTORY: Tube placement TECHNIQUE: Semiupright portable view of the chest obtained. COMPARISON: 11/22/2019 chest radiograph FINDINGS: Endotracheal tube distal tip at the level of the clavicular heads. Enteric tube with nonvi sualization of distal tip. Left atrial appendage clip and sternotomy wires redemonstrated. Interval r emoval of right-sided internal jugular central venous catheter. Cardiomegaly. Unchanged pulmonary vas cular congestion and pulmonary edema with unchanged bilateral pleural effusions. No pneumothorax. IMPRESSION: 1. Removal of right internal jugular central venous catheter. Other tubes unchanged. 2. Unchanged findings most likely representing CHF, including bilateral pleural effusions.
[2019-11-23 08:34] LABS: Glucose,Whole Blood 145 mg/dL (75-99)
[2019-11-23] MEDS: PIPERACILLIN-TAZOBACTAM 3.375 GM in SODIUM CHLORIDE 0.9% 100 ML IVPB SCH ×2 (08:35→17:00)
[2019-11-23] MEDS: CHLORHEXIDINE GLUCONATE 15 ML CUP MUCOUS MEM SCH ×2 (08:35→21:36)
[2019-11-23] MEDS: NYSTATIN 100,000 UNIT/ML SUSP 500,000 UNIT/5 ML CUP PO SCH ×4 (08:35→21:40)
[2019-11-23] MEDS: ATORVASTATIN 40 MG TAB PO SCH (08:36)
[2019-11-23] MEDS: ASPIRIN 325 MG TAB PO SCH (08:36)
[2019-11-23] MEDS: CLOPIDOGREL 75 MG TAB PO SCH (08:37)
[2019-11-23] MEDS: FUROSEMIDE 10 MG/ML 4 ML VIAL IV SCH ×2 (08:44→21:36)
[2019-11-23] MEDS: HEPARIN SODIUM,PORCINE 5,000 UNIT/ML 1 ML VIAL SQ SCH ×2 (08:47→17:00)
[2019-11-23] MEDS: METOPROLOL TARTRATE 25 MG TAB NG-TUBE SCH ×2 (09:11→21:36)
[2019-11-23] MEDS: LOSARTAN 25 MG TAB PO SCH (09:12)
[2019-11-23] MEDS: AMIODARONE 200 MG TAB NG-TUBE SCH ×2 (10:00→21:36)
[2019-11-23 12:04] LABS: Glucose,Whole Blood 137 mg/dL (75-99)
[2019-11-23 12:26] LABS: Glucose,Whole Blood 124 mg/dL (75-99)
--- NOTE | 2019-11-23 12:49 | P.PN ---
<Shay Beyer Jeanne - Last Filed: 11/23/19 12:26> Subjective Progress Note Date: 11/23/19 Principal diagnosis: Symptomatic multivessel coronary artery disease, unstable angina, status post subendocardial myocardial infarction. Past medical history significant for CAD with previous stent placement to the proximal circumflex and ostial OM1, hypertension, hyperlipidemia, chronic ongoing tobacco dependence, mild COPD with preoperative FEV1 60% of predicted, right internal carotid artery stenosis 50- 69%, peripheral arterial disease with previous arthrectomy and TECHNICAL SOLUTIONS DIRECTOR of the left SFA, atherectomy and TECHNICAL SOLUTIONS DIRECTOR of the left BUILDING ATTENDANT, with stenting of the left BRIAN, poorly controlled type 2 diabetes with preoperative hemoglobin A1c 9.1%, bladder cancer status post chemo and radiation, occasional marijuana use, medication noncompliance, and family history of premature coronary artery disease. POD #15 coronary artery bypass grafting 5 with GR to the LAD, left radial artery to the obtuse marginal coronary artery, a reverse greater saphenous vein to the posterior lateral coronary artery, sequential saphenous vein to the first and second diagonal coronary artery performed on cardiopulmonary bypass with beating heart. Endoscopic vein harvest of the left greater saphenous vein from the ankle to the groin. Endoscopic harvest of the left radial artery. Epi- aortic ultrasound and ligation of left atrial appendage with 40 mm AtriCure clip. Postoperative acute blood loss anemia, expected outcome given cardiopulmonary bypass and hemodilution. Postoperative encephalopathy, unexpected but potential outcome given cardiopulmonary bypass and intraoperative cardiac arrest. Postoperative new onset paroxysmal Afib with RVR, unexpected. Postoperative acute hypoxemic respiratory failure requiring reintubation, secondary to metabolic acidosis and hypotension. Postoperative stage II pressure ulcer on coccyx, unexpected. The patient was seen in follow-up today 11/23/2019 at his bedside in the intensi ve care unit. He remains intubated with mechanical ventilator support and is sedated on Precedex drip. Currently he is on a CPAP mode of 5 pressure support 10 FiO2 40%, oxygen saturation is 99%. He is following some simple commands appropriately and is squeezing equally with both his left and right hand. Dobbhoff tube remains in place with vital AF tube feeding infusing at goal rate of 70 mL per hour with 30 mL every 4 hours water flushes. Patient remains having loose stools with fecal management system in place. Remains on antibiotic coverage with Zosyn IV piggyback and per Dobbhoff tube vancomycin. Cultures remain negative. Laboratory results today show a WBC count 8.8, hemoglobin 8.3, BUN 39, creatinine 1.21, AST 244 and ALT 187. He did receive 1 unit of packed red blood cells yesterday for hemoglobin of 7.0. He remains afebrile last 24 hours. Chest x-ray is showing bilateral pleural effusions. Objective - Vital Signs Vital signs: Vital Signs Temp 98.1 F 11/23/19 08:00 Pulse 85 11/23/19 11:55 Resp 20 11/23/19 11:00 BP 109/64 11/22/19 22:00 Pulse Ox 98 11/23/19 11:00 Intake & Output 11/22/19 11/23/19 11/23/19 18:59 06:59 18:59 Intake Total 2043.633 1357.814 575 Output Total 1765 1525 765 Balance 278.633 -167.186 -190 Weight 90.4 kg 89 kg Intake: IV 749 316 165 .9NS @ 10 ml/hr 610 80 50 Normal Saline Pressure 39 36 15 Bag Piperacillin-Tazobactam 3 100 200 100 .375 gm In Sodium Chloride 0.9% 100 ml @ 25 mls/hr IVPB Q8HR [facility] Rx# :[id number] Intake, IV Titration 74.633 39.814 Amount Dexmedetomidine/0.9% NaCl 29.343 39.814 (Pmx) 400 mcg In Empty Bag 1 bag @ Titrate IV . Q0M [facility] Rx#:[id number] propofoL 1,000 mg In 45.29 Empty Bag 1 bag @ Titrate IV .Q0M YVAN Rx#: [id number] Tube Feeding 790 942 380 Blood Product 310 Rc As-1 Unit 310 [id number] Other 120 60 30 Output: Urine 1765 1525 765 Other: Voiding Method Indwelling Catheter Indwelling Catheter Indwelling Catheter ABP, PAP, CO, CI - Last Documented Arterial Blood Pressure 101/44 Pulmonary Artery Pressure 30/17 Cardiac Output 4.5 Cardiac Index 2.3 - Constitutional Constitutional Comment(s): The patient is awake, and alert, remains lightly sedated on Precedex drip. General appearance: Present: cooperative, no acute distress - EENT Eyes: Present: PERRLA, poor dentition, normal appearance. Absent: scleral icterus ENT: Present: hearing grossly normal - Neck Details: Neck is supple, no JVD, no lymphadenopathy. - Respiratory Details: Lung sounds are essentially clear to his bilateral upper lobes, diminished to his bilateral bases. Respirations are symmetrical and nonlabored with mechanical ventilator support. Current mechanical ventilator settings are as follows: CPAP 5, pressure support 10, FiO2 40% and oxygen saturation is 99%. - Cardiovascular Details: Regular rhythm and rate. S1 and S2 present, negative for S3, gallop or murmur. Sternum is stable. Atrial and ventricular epicardial pacemaker wires in place and connected to a backup bedside pacemaker generator on an AAI of 80. Bedside telemetry showing atrial paced rhythm with an underlying rhythm of sinus bradycardia rate in the 50s. No edema present. Knee-high ELSIE hose and sequential compression devices in place was bilateral lower extremities. Right radial arterial line in place and functioning. Left upper arm midline IV catheters in place and functioning. Heart hugger is in place. - Gastrointestinal Gastrointestinal Comment(s): Abdomen is soft, nontender and nondistended. Active bowel sounds present in all 4 abdominal quadrants. No guarding or rigidity. Tube feedings infusing at goal rate of 70 mL per hour of vital AF per Dobbhoff tube with automatic water flushes 30 mL every 4 hours. Fecal management system present with brown liquid stool. - Genitourinary Genitourinary Comment(s): Newman catheter for accurate I&O. Draining clear yellow urine with occasional sediment. - Integumentary Integumentary Comment(s): Skin is warm and dry. No clubbing or cyanosis is present. Midline sternal incision is clean, dry and approximated. No drainage or redness is present. Left arm radial artery harvest sites clean, dry and approximated. No drainage or redness is present. Left lower extremity EVH sites are clean, dry and approximated. No drainage or redness is present. - Neurologic Neurologic Comment(s): Patient remains lightly sedated on Precedex drip. Following some simple commands with essentially equal rn clinical trials to his bilateral hands. - Musculoskeletal Musculoskeletal Comment(s): Patient remains lightly sedated on Precedex drip. Following some simple commands with essentially equal rn clinical trials to his bilateral hands. - Psychiatric Psychiatric Comment(s): Patient remains lightly sedated on Precedex drip. Following some simple commands with essentially equal rn clinical trials to his bilateral hands. - Allied health notes Allied health notes reviewed: nursing - Labs CBC & Chem 7: 11/23/19 04:30 11/23/19 04:30 Labs: Abnormal Lab Results - Last 24 Hours (Table) 11/11/19 11/22/19 11/22/19 Range/Units 06:25 04:30 10:10 RBC (4.30-5.90) m/uL Hgb (13.0-17.5) gm/dL Hct (39.0-53.0) % RDW (11.5-15.5) % ABG pH (7.35-7.45) ABG pO2 (83-108) mmHg ABG HCO3 (21-25) mmol/L ABG Total CO2 (19-24) mmol/L ABG O2 Saturation (94-97) % BUN (9-20) mg/dL Glucose (74-99) mg/dL POC Glucose (mg/dL) (75-99) mg/dL ALT (4-49) U/L Alkaline Phosphatase (38-126) U/L Total Protein (6.3-8.2) g/dL Albumin (3.5-5.0) g/dL Prealbumin 14.0 L (18.0-42.0) mg/dL Crossmatch See Detail See Detail 11/22/19 11/22/19 11/22/19 Range/Units 16:10 19:56 23:45 RBC (4.30-5.90) m/uL Hgb (13.0-17.5) gm/dL Hct (39.0-53.0) % RDW (11.5-15.5) % ABG pH (7.35-7.45) ABG pO2 (83-108) mmHg ABG HCO3 (21-25) mmol/L ABG Total CO2 (19-24) mmol/L ABG O2 Saturation (94-97) % BUN (9-20) mg/dL Glucose (74-99) mg/dL POC Glucose (mg/dL) 145 H 182 H 148 H (75-99) mg/dL ALT (4-49) U/L Alkaline Phosphatase (38-126) U/L Total Protein (6.3-8.2) g/dL Albumin (3.5-5.0) g/dL Prealbumin (18.0-42.0) mg/dL Crossmatch 11/23/19 11/23/19 11/23/19 Range/Units 03:47 04:30 04:30 RBC 2.66 L (4.30-5.90) m/uL Hgb 8.3 L (13.0-17.5) gm/dL Hct 26.5 L (39.0-53.0) % RDW 16.2 H (11.5-15.5) % ABG pH (7.35-7.45) ABG pO2 (83-108) mmHg ABG HCO3 (21-25) mmol/L ABG Total CO2 (19-24) mmol/L ABG O2 Saturation (94-97) % BUN 39 H (9-20) mg/dL Glucose 131 H (74-99) mg/dL POC Glucose (mg/dL) 137 H (75-99) mg/dL ALT 244 H (4-49) U/L Alkaline Phosphatase 187 H (38-126) U/L Total Protein 5.7 L (6.3-8.2) g/dL Albumin 2.9 L (3.5-5.0) g/dL Prealbumin (18.0-42.0) mg/dL Crossmatch 11/23/19 11/23/19 11/23/19 Range/Units 05:40 08:33 12:02 RBC (4.30-5.90) m/uL Hgb (13.0-17.5) gm/dL Hct (39.0-53.0) % RDW (11.5-15.5) % ABG pH 7.52 H (7.35-7.45) ABG pO2 82 L (83-108) mmHg ABG HCO3 29 H (21-25) mmol/L ABG Total CO2 30 H (19-24) mmol/L ABG O2 Saturation 97.3 H (94-97) % BUN (9-20) mg/dL Glucose (74-99) mg/dL POC Glucose (mg/dL) 145 H 137 H (75-99) mg/dL ALT (4-49) U/L Alkaline Phosphatase (38-126) U/L Total Protein (6.3-8.2) g/dL Albumin (3.5-5.0) g/dL Prealbumin (18.0-42.0) mg/dL Crossmatch Microbiology - Last 24 Hours (Table) 11/21/19 12:40 Gram Stain - Final Sputum Sputum Culture - Final - Imaging and Cardiology Chest x-ray: report reviewed, image reviewed Assessment and Plan Assessment: 1. Symptomatic multivessel coronary artery disease, recent non-STEMI, status post 5 vessel CABG 2. Leukocytosis, unknown origin, may be reactive 3. Previous stent placement to the proximal circumflex and ostial OM1 4. History of hypertension 5. History of hyperlipidemia 6. Chronic ongoing tobacco dependence 7. Mild COPD, preoperative FEV1 60% of predicted value 8. Right internal carotid artery stenosis 50-69% 9. History of peripheral arterial disease with previous arthrectomy and TECHNICAL SOLUTIONS DIRECTOR of the left SFA and atherectomy and TECHNICAL SOLUTIONS DIRECTOR of the left BUILDING ATTENDANT with stenting of the left BRIAN 10. Poorly controlled diabetes mellitus type 2, admission hemoglobin A1c 9.1% 11. History of bladder cancer status post radiation, chemotherapy treatment and bladder surgery 12. Occasional marijuana use 13. Medication noncompliance 14. Family history of early onset coronary artery disease 15. Postoperative acute blood loss anemia, expected 16. Postoperative confusion, unexpected 17. Mild ISAAC, creatinine today 1.46 yesterday 1.44 18. New onset Afib with RVR, status post left atrial appendage ligation 19. New onset hematuria from patient pulling at newman catheter 20. Postoperative acute hypoxic respiratory failure requiring reintubation, secondary to metabolic acidosis and hypotension 21. Elevated transaminase levels, secondary to hypotension, trending down 22. Postoperative stage II pressure ulcer, coccyx Plan: 1. Continue aspirin, Plavix and statin and beta gaurav. We will increase metoprolol tartrate as tolerated, continue to follow hold parameters. 2. Obtain consent for bilateral chest tube placement today to be performed by Dr. Levi Alvarado for bilateral pleural effusions. 3. Continue amiodarone by mouth for atrial fibrillation prophylaxis. 4. Keep Newman catheter in place for accurate I&O. Newman catheter was changed on 11/14/2019. 5. Mechanical ventilator management per pulmonary/critical care medicine recommendations. 6. Continued Dobbhoff tube with tube feedings vital AF infusing at 70 mL per hour with 30 mL every 4 hours of water flushes. Per dietitian's recommendations. 7. Will monitor daily labs and chest x-rays. Electrolyte replacement per protocol. 8. Continue Tylenol for pain management, hold narcotics and toradol. 9. GI/DVT prophylaxis. 10. Insulin management per primary care service. 11. Continue Lasix 40 mg IV twice a day. 12. Nursing staff to assist with passive range of motion and turning the patient every 2 hours and when necessary. 13. Continue to avoid nephrotoxic agents. 14. Keep atrial and ventricular epicardial pacemaker wires in place and connected to a backup pacemaker generator with an AAI of 80. 15. Infectious disease is following for antibiotic management. WBC count is 8.8 today. 16. Reorient as necessary. Continue to assess mental status. 17. More recommendations to follow based on patient's clinical course. Time with Patient: Greater than 30 <Levi Alvarado - Last Filed: 11/23/19 16:58> Objective - Vital Signs Vital signs: Vital Signs Temp 97.5 F L 11/23/19 12:00 Pulse 80 11/23/19 15:38 Resp 18 11/23/19 15:38 BP 109/64 11/22/19 22:00 Pulse Ox 97 11/23/19 13:00 Intake & Output 11/22/19 11/23/19 11/23/19 18:59 06:59 18:59 Intake Total 2043.633 1357.814 870.44 Output Total 1765 1525 1015 Balance 278.633 -167.186 -144.56 Weight 90.4 kg 89 kg Intake: IV 749 316 191 .9NS @ 10 ml/hr 610 80 70 Normal Saline Pressure 39 36 21 Bag Piperacillin-Tazobactam 3 100 200 100 .375 gm In Sodium Chloride 0.9% 100 ml @ 25 mls/hr IVPB Q8HR [facility] Rx# :[id number] Intake, IV Titration 74.633 39.814 99.44 Amount Dexmedetomidine/0.9% NaCl 29.343 39.814 99.44 (Pmx) 400 mcg In Empty Bag 1 bag @ Titrate IV . Q0M [facility] Rx#:[id number] propofoL 1,000 mg In 45.29 0 Empty Bag 1 bag @ Titrate IV .Q0M [facility] Rx#: [id number] Tube Feeding 790 942 520 Blood Product 310 Rc As-1 Unit 310 [id number] Other 120 60 60 Output: Urine 1765 1525 1015 Other: Voiding Method Indwelling Catheter Indwelling Catheter Indwelling Catheter ABP, PAP, CO, CI - Last Documented Arterial Blood Pressure 105/43 Pulmonary Artery Pressure 30/17 Cardiac Output 4.5 Cardiac Index 2.3 - Labs CBC & Chem 7: 11/23/19 04:30 11/23/19 04:30 Labs: Abnormal Lab Results - Last 24 Hours (Table) 11/22/19 11/22/19 11/22/19 Range/Units 04:30 19:56 23:45 RBC (4.30-5.90) m/uL Hgb (13.0-17.5) gm/dL Hct (39.0-53.0) % RDW (11.5-15.5) % ABG pH (7.35-7.45) ABG pO2 (83-108) mmHg ABG HCO3 (21-25) mmol/L ABG Total CO2 (19-24) mmol/L ABG O2 Saturation (94-97) % BUN (9-20) mg/dL Glucose (74-99) mg/dL POC Glucose (mg/dL) 182 H 148 H (75-99) mg/dL ALT (4-49) U/L Alkaline Phosphatase (38-126) U/L Total Protein (6.3-8.2) g/dL Albumin (3.5-5.0) g/dL Prealbumin 14.0 L (18.0-42.0) mg/dL 11/23/19 11/23/19 11/23/19 Range/Units 03:47 04:30 04:30 RBC 2.66 L (4.30-5.90) m/uL Hgb 8.3 L (13.0-17.5) gm/dL Hct 26.5 L (39.0-53.0) % RDW 16.2 H (11.5-15.5) % ABG pH (7.35-7.45) ABG pO2 (83-108) mmHg ABG HCO3 (21-25) mmol/L ABG Total CO2 (19-24) mmol/L ABG O2 Saturation (94-97) % BUN 39 H (9-20) mg/dL Glucose 131 H (74-99) mg/dL POC Glucose (mg/dL) 137 H (75-99) mg/dL ALT 244 H (4-49) U/L Alkaline Phosphatase 187 H (38-126) U/L Total Protein 5.7 L (6.3-8.2) g/dL Albumin 2.9 L (3.5-5.0) g/dL Prealbumin (18.0-42.0) mg/dL 11/23/19 11/23/19 11/23/19 Range/Units 05:40 08:33 12:02 RBC (4.30-5.90) m/uL Hgb (13.0-17.5) gm/dL Hct (39.0-53.0) % RDW (11.5-15.5) % ABG pH 7.52 H (7.35-7.45) ABG pO2 82 L (83-108) mmHg ABG HCO3 29 H (21-25) mmol/L ABG Total CO2 30 H (19-24) mmol/L ABG O2 Saturation 97.3 H (94-97) % BUN (9-20) mg/dL Glucose (74-99) mg/dL POC Glucose (mg/dL) 145 H 137 H (75-99) mg/dL ALT (4-49) U/L Alkaline Phosphatase (38-126) U/L Total Protein (6.3-8.2) g/dL Albumin (3.5-5.0) g/dL Prealbumin (18.0-42.0) mg/dL 11/23/19 11/23/19 Range/Units 12:25 16:50 RBC (4.30-5.90) m/uL Hgb (13.0-17.5) gm/dL Hct (39.0-53.0) % RDW (11.5-15.5) % ABG pH (7.35-7.45) ABG pO2 (83-108) mmHg ABG HCO3 (21-25) mmol/L ABG Total CO2 (19-24) mmol/L ABG O2 Saturation (94-97) % BUN (9-20) mg/dL Glucose (74-99) mg/dL POC Glucose (mg/dL) 124 H 127 H (75-99) mg/dL ALT (4-49) U/L Alkaline Phosphatase (38-126) U/L Total Protein (6.3-8.2) g/dL Albumin (3.5-5.0) g/dL Prealbumin (18.0-42.0) mg/dL Microbiology - Last 24 Hours (Table) 11/21/19 12:40 Gram Stain - Final Sputum Sputum Culture - Final
--- NOTE | 2019-11-23 15:24 | PN ---
PROGRESS NOTE DATE OF SERVICE: 11/23/2019 REASON FOR FOLLOWUP: Possible aspiration pneumonia and diarrhea. INTERVAL HISTORY: The patient is currently afebrile. The patient remains intubated on the vent. He is hemodynamically stable, not on any pressor support. FiO2 is currently 40%. He did have diarrhea, but overall pneumonia is decreased. PHYSICAL EXAMINATION: Blood pressure 105/43 with a pulse of 80, temperature 97.5. He is 97% on 40% FiO2. General description is an elderly male intubated on the vent. RESPIRATORY SYSTEM: Unlabored breathing. Clear to auscultation anteriorly. HEART: S1, S2. Regular rate and rhythm. ABDOMEN: Soft. No tenderness. LABS: Hemoglobin 8.3, white count 8.8. BUN of 39, creatinine 1.21. Sputum culture has been negative so far. DIAGNOSTIC IMPRESSION AND PLAN: 1. Patient with acute respiratory failure which is likely multifactorial with concern for possible aspiration pneumonitis, on Zosyn; to continue for a short course. 2. Patient with diarrhea and elevated white count; possible Clostridium difficile. Continue with oral vancomycin. White count has shown a downward trend. MMODL / IJN: [id number] /
--- NOTE | 2019-11-23 16:39 | PN ---
PROGRESS NOTE FOLLOW-UP NOTE: He is still intubated on vent, waking up. He was bradycardic. Blood pressure is marginal. Currently on amiodarone 200 b.i.d., Plavix 75 daily, Lasix 40 IV b.i.d.,, Lopressor 25 mg b.i.d. Lopressor and losartan are currently on hold. Plans are underway to extubate him. On exam, heart rate is 85 beats per minute. Blood pressure is 101/44, respiratory rate 18. There is no jugular venous distention. Chest exam reveals good air entry bilaterally. Heart exam reveals first and second heart sounds. No gallop. Examination of extremities did not reveal any edema. Peripheral pulses are felt. Labs show a hemoglobin of 8.3, potassium is 4, creatinine is 1.2. ASSESSMENT: Coronary artery disease, status post coronary artery bypass grafting. Continue current measures. Hopefully patient will be extubated today. MMODL / IJN: [id number] /
--- NOTE | 2019-11-23 16:53 | XR ---
EXAMINATION TYPE: XR chest 1V DATE OF EXAM: 11/23/2019 CLINICAL HISTORY: Chest tube placement TECHNIQUE: Semiupright portable view of the chest obtained COMPARISON: Chest radiograph 11/23/2019 at 5:55 AM FINDINGS: Sternotomy wires, endotracheal tube, left atrial appendage clip, an enteric tube with unch anged right graphic appearance. There is been interval placement of bilateral chest tubes. No pneumot horax. There is mildly improved aeration of the bilateral lung bases. The cardiomediastinal silhouett e is unchanged. There is decreased pulmonary vascular congestion and pulmonary edema. IMPRESSION: 1. Placement of bilateral chest tubes. No pneumothorax. 2. Interval decrease in pulmonary vascular congestion and pulmonary edema, and improved aeration of the bilateral lung bases versus 5:55 AM comparison.
[2019-11-23 16:56] LABS: Glucose,Whole Blood 127 mg/dL (75-99)
[2019-11-23] MEDS: ACETAMINOPHEN TAB 500 MG TAB PO PRN (17:00)
--- NOTE | 2019-11-23 17:31 | PCN ---
PROCEDURE NOTE DATE OF PROCEDURE: 11/23/2019 PREOPERATIVE DIAGNOSIS: Bilateral pleural effusions. POSTOPERATIVE DIAGNOSIS: Bilateral pleural effusions. PROCEDURE: Placement of bilateral chest tubes. SURGEON: Levi Alvarado MD. ENCEPHALOGRAPHER: Braxton Beyer NP. ANESTHESIA: Local with IV sedation. EBL: Minimal. COMPLICATIONS: None. INDICATION: The patient is a 64-year-old male who recently underwent coronary bypass surgery with Dr. Sunday Hewitt. Today's chest x-ray reveals bilateral pleural effusions, which was confirmed by a CT scan of the chest which was performed a few days ago. Placement of bilateral chest tubes was recommended. The risks, benefits, and alternatives of this procedure were discussed with the patient's . All of her questions were answered. Consent was obtained. PROCEDURE IN DETAIL: In the ICU, the patient was already intubated on intravenous propofol. The right chest was prepped and draped in the usual sterile fashion. Local anesthetic was infiltrated in the skin and an incision was created along the anterior axillary line. Gentle posterior tunneling was performed using blunt dissection. The right pleural space was then entered bluntly without difficulty. A 24-Danish chest tube was then introduced. It was secured to an atrium and approximately 500 mL of serous fluid was drained. The chest tube was secured to the skin using suture. The left chest was then prepped and draped in a similar fashion. Again, local anesthetic was infiltrated along the anterior axillary line. An incision was created and a small tunnel was created posteriorly until the left pleural space was entered. A 24- Danish chest tube was then introduced into the left pleural space without difficulty. The tube was secured to the skin using a suture. Approximately 500 mL of serous fluid was drained from the left side as well. Sterile dressings were applied. The patient appeared to tolerate the procedure well. There were no immediate complications. MMODL / IJN: [id number] / [id number]
[2019-11-23 20:00] LABS: Glucose,Whole Blood 159 mg/dL (75-99)
--- NOTE | 2019-11-23 20:14 | P.PN ---
Subjective Progress Note Date: 11/23/19 Patient was seen for a follow-up. Patient to be intubated on 11/20/2019. Patient has been off sedation. Still intubated. He is fully alert and awake. Much more interactive. Please refer to examination below. Objective - Vital Signs Vital signs: Vital Signs Temp 97.9 F 11/23/19 16:00 Pulse 78 11/23/19 19:55 Resp 28 H 11/23/19 19:55 BP 109/64 11/22/19 22:00 Pulse Ox 97 11/23/19 19:00 Intake & Output 11/23/19 11/23/19 11/24/19 06:59 18:59 06:59 Intake Total 1352.280 4825.649 Output Total 1525 2665 Balance -167.186 -1299.351 Weight 89 kg Intake: IV 316 369 .9NS @ 10 ml/hr 80 130 Normal Saline Pressure 36 39 Bag Piperacillin-Tazobactam 3 200 200 .375 gm In Sodium Chloride 0.9% 100 ml @ 25 mls/hr IVPB Q8HR [facility] Rx# :[id number] Intake, IV Titration 39.814 106.649 Amount Dexmedetomidine/0.9% NaCl 39.814 99.44 (Pmx) 400 mcg In Empty Bag 1 bag @ Titrate IV . Q0M [facility] Rx#:[id number] propofoL 1,000 mg In 7.209 Empty Bag 1 bag @ Titrate IV .Q0M [facility] Rx#: [id number] Tube Feeding 942 800 Other 60 90 Output: Chest Tube Drainage 950 left lateral chest tube 470 right lateral chest tube 480 Urine 1525 1715 Other: Voiding Method Indwelling Catheter Indwelling Catheter ABP, PAP, CO, CI - Last Documented Arterial Blood Pressure 110/42 Pulmonary Artery Pressure 30/17 Cardiac Output 4.5 Cardiac Index 2.3 - Exam Patient is intubated. He is fully alert and awake. Patient follows commands. His shook splicer has much improved. Able to wiggle his feet much better. Patient withdraws to plantar stimulation very well on either side. Patient shook splicer is almost equal, left may be slightly stronger. Tone appears well. - Labs CBC & Chem 7: 11/23/19 04:30 11/23/19 04:30 Labs: Abnormal Lab Results - Last 24 Hours (Table) 0711/22/19 11/23/19 Range/Units 04:30 23:45 03:47 RBC (4.30-5.90) m/uL Hgb (13.0-17.5) gm/dL Hct (39.0-53.0) % RDW (11.5-15.5) % ABG pH (7.35-7.45) ABG pO2 (83-108) mmHg ABG HCO3 (21-25) mmol/L ABG Total CO2 (19-24) mmol/L ABG O2 Saturation (94-97) % BUN (9-20) mg/dL Glucose (74-99) mg/dL POC Glucose (mg/dL) 148 H 137 H (75-99) mg/dL ALT (4-49) U/L Alkaline Phosphatase (38-126) U/L Total Protein (6.3-8.2) g/dL Albumin (3.5-5.0) g/dL Prealbumin 14.0 L (18.0-42.0) mg/dL 11/23/19 11/23/19 11/23/19 Range/Units 04:30 04:30 05:40 RBC 2.66 L (4.30-5.90) m/uL Hgb 8.3 L (13.0-17.5) gm/dL Hct 26.5 L (39.0-53.0) % RDW 16.2 H (11.5-15.5) % ABG pH 7.52 H (7.35-7.45) ABG pO2 82 L (83-108) mmHg ABG HCO3 29 H (21-25) mmol/L ABG Total CO2 30 H (19-24) mmol/L ABG O2 Saturation 97.3 H (94-97) % BUN 39 H (9-20) mg/dL Glucose 131 H (74-99) mg/dL POC Glucose (mg/dL) (75-99) mg/dL ALT 244 H (4-49) U/L Alkaline Phosphatase 187 H (38-126) U/L Total Protein 5.7 L (6.3-8.2) g/dL Albumin 2.9 L (3.5-5.0) g/dL Prealbumin (18.0-42.0) mg/dL 11/23/19 11/23/19 11/23/19 Range/Units 08:33 12:02 12:25 RBC (4.30-5.90) m/uL Hgb (13.0-17.5) gm/dL Hct (39.0-53.0) % RDW (11.5-15.5) % ABG pH (7.35-7.45) ABG pO2 (83-108) mmHg ABG HCO3 (21-25) mmol/L ABG Total CO2 (19-24) mmol/L ABG O2 Saturation (94-97) % BUN (9-20) mg/dL Glucose (74-99) mg/dL POC Glucose (mg/dL) 145 H 137 H 124 H (75-99) mg/dL ALT (4-49) U/L Alkaline Phosphatase (38-126) U/L Total Protein (6.3-8.2) g/dL Albumin (3.5-5.0) g/dL Prealbumin (18.0-42.0) mg/dL 11/23/19 11/23/19 Range/Units 16:50 19:58 RBC (4.30-5.90) m/uL Hgb (13.0-17.5) gm/dL Hct (39.0-53.0) % RDW (11.5-15.5) % ABG pH (7.35-7.45) ABG pO2 (83-108) mmHg ABG HCO3 (21-25) mmol/L ABG Total CO2 (19-24) mmol/L ABG O2 Saturation (94-97) % BUN (9-20) mg/dL Glucose (74-99) mg/dL POC Glucose (mg/dL) 127 H 159 H (75-99) mg/dL ALT (4-49) U/L Alkaline Phosphatase (38-126) U/L Total Protein (6.3-8.2) g/dL Albumin (3.5-5.0) g/dL Prealbumin (18.0-42.0) mg/dL Microbiology - Last 24 Hours (Table) 11/21/19 12:40 Gram Stain - Final Sputum Sputum Culture - Final Assessment and Plan Assessment: * Probable subacute stroke involving multiple patchy areas in the left MCA vas cular territory. Rule out cardioembolic source. Patient had transient atrial fibrillation, therefore cardioembolic stroke is definitely a possibility. Patient is doing much better clinically. * Status post coronary artery bypass grafting. * Right ICA stenosis 50-69% per carotid ultrasound. * Hypertension * Diabetes * Medical noncompliance in the past. * Tobacco use. Plan: * Await MRI of the brain without contrast, and MRA of the brain without contrast, when cardiology clears patient. * Patient's 2-D echo showed no obvious embolic source at this time. * Carotid Doppler showed 50-69% stenosis proximal right ICA. * Patient currently on aspirin 325 mg and Plavix 75 mg. Also on Lipitor 40 mg. * Patient is falling, aunts very well. Strength is improving gradually. * Please call neurology, when patient extubated, or if patient gets MRI done, then for a neurological follow-up. * Neurology will sign off.
[2019-11-23] MEDS: INSULIN DETEMIR (LEVEMIR) 100 UNIT/ML SYR SQ SCH (21:37)
--- NOTE | 2019-11-23 23:23 | P.PN ---
Subjective Progress Note Date: 11/23/19 Principal diagnosis: Patient is a [id number] male was recently discharged from the hospital came back in with the chest pain pressure-like sensation lasted for a few hours nonexertional did have elevated troponins. Patient had a triple-vessel disease patient is scheduled to undergo coronary artery bypass grafting on Friday went home started smoking again started having chest pain. Chest x-ray was read as pulmonary edema. It is not elevated patient clinically doesn't have any JVD or crackles or wheezing. 11/09/2019 Patient is status post CABG he was extubated the last night. Patient is presently on norepinephrine, milrinone, IV insulin. Patient still has a Mcfarland- Juni in place most of the management is being done by cardiac thoracic surgery patient was bit confused earlier today doing well now. 11/10/2019 Patient is still confused as per the family his confusion is better patient is a low-grade fever probably because of atelectasis a lot and blood cultures. Patient received Lasix for pulmonary edema, patient's mediastinal chest use with remote patient still has left pleural chest tubes Review of systems: Unable to obtain as patient is tired and sleepy All inpatient medications were reviewed and appropriate changes in these medications as dictated in the interval history and assessment and plan. 11/11/2019 Patient is seen and evaluated and follow-up currently remains in the ICU and is being closely monitored. Since hemoglobin was found to be 6.7 this morning and is currently receiving 1 unit of PRBCs. Potassium is 4.4, creatinine is 1.09, magnesium is 2.3. Patient went into atrial fibrillation with RVR and is being maintained on amiodarone drip and will transition to oral medications. Patient continues to have chest tubes along with indwelling Junior catheter which shows some hematuria as patient pulled it out. Patient has been afebrile with intermittent low-grade temps 99.7F and white count today is 14.1. Patient remains on an insulin drip and will continue at this time. Will continue to follow along closely with cardio thoracic surgery. 11/12/2019 Patient is seen and evaluated and follow-up continues to be closely monitored in the ICU. Patient is currently restless and seems to be having some shortness of breath. Patient is placed on nasal cannula although was mouth breathing and is currently on 5 L of oxygen. Patient was on insulin drip which has been discontinued and patient will be continued on sliding scale as patient now has a diet ordered although isn't eating very much. Patient continues to be confused and not following commands. Patient had a chest x-ray today status post chest tube removal showing no evidence of residual pneumothorax. Patient underwent brain CT yesterday showing patchy periventricular and deep white matter changes, left greater than right that have progressed since 01/19/2019 with demyelinating disease or other infectious inflammatory etiologies are possible, and no acute intracranial hemorrhage or midline shift noted. 11/13/2019 Patient became to Make and found to have metabolic acidosis with respiratory compensation progressively got fatigued event into respiratory failure subsequently intubated patient received the bicarbonate infusion for severe metabolic acidosis and patient had lactic acidosis with the lactic acid going up to 11 which came down to 1.5 patient is also started on pressor support with Levophed on mechanical ventilator with tidal volume of 450 set up respiratory of 24 FiO2 of 50% PEEP of 5 urine output is fairly. Chest x-ray showing mild pulmonary vascular congestion with the pleural effusions bilaterally 11/14/2019 Patient the did not tolerate weaning trial. Patient remains on ventilatory support. Patient is a one dose of vancomycin patient is presently on IV Zosyn for fevers although etiology of fevers is not clear at this time. Patient blood sugars are high receiving 3 units every 4 hours as per sliding scale patient wi ll be started on long-acting insulin 15 units and continue with sliding scale Review of systems: Unable to obtain as patient is tired and sleepy All inpatient medications were reviewed and appropriate changes in these medications as dictated in the interval history and assessment and plan. 11/15/2019 Patient is seen and evaluated and follow-up and currently remains in the ICU on mechanical ventilation and is being closely monitored. Patient continues to have a Dobbhoff for nutrition and remains on long-acting Levemir 15 units at bed along with sliding scale and will continue at this time. Patient is currently maintained on IV vancomycin along with Zosyn and infectious disease has been consulted. Patient is afebrile for 24 hours. White blood count is trending down and is currently 15.3 today. 11/16/2019 Patient is seen and evaluated in follow-up continues to be on a mechanical ve ntilator and intubated with sedation and is being closely monitored in the ICU. Patient continues to have elevated blood sugars and have increased the long- acting Levemir to 20 units and will continue with sliding scale and added 5 units every 4 hours For tighter glycemic control. Patient remains on tube feedings at goal via a Dobbhoff system. Multiple medical consultations following. Patient is maintained on IV vancomycin and cefepime and will continue at this time. White blood count slowly trending down at 15.2 today. Chest x-ray showing some pleural effusions and a chest ultrasound was performed showing bilateral pleural effusions although small in size and were not marked. 11/17/2019 Patient is seen and evaluated in follow-up currently continued on a mechanical ventilator and intubated and continues to be closely monitored in the ICU. Sedation has been on hold and patient eyes are opening Although not following commands. patient underwent head CT showing no evidence of acute hemorrhage with areas of patchy low attenuation left parietal white matter as previously noted and are of indeterminate age and could possibly be on the basis of subacute ischemia with no significant interval change. Degenerative and suspect remote ischemic change also noted and correlate with MRI as clinically warranted. Neurology was consulted and pending at this time. Multiple medical consultations following. Patient is currently maintained on cefepime and vancomycin and will continue at this time. White blood count elevated at 15.0 With hemoglobin of 7.7. Current creatinine is 1.04. Patient remains afebrile. Will continue to monitor closely. 11/18/2019 Patient is seen and evaluated in follow-up today currently continues to be in the ICU being closely monitored. Remains intubated although have been holding propofol and patient appears to be following commands with the left extremity although right upper extremity is flaccid. Neurology evaluated the patient and recommended MRI and this will be done once patient is extubated and more stable. CT of the head findings are probable of a subacute stroke involving multiple patchy areas in the left MCA vascular territory with the possibility of a cardio embolic source. Patient did have transient atrial fibrillation. There is right ICA stenosis of 50-69% on the carotid Doppler. Patient's 2-D echo showed no obvious embolic source. Patient remains on aspirin and Plavix along with statin and will continue at this time. Attempts to use Precedex as patient is off propofol at this time. Multiple medical consultations following. Patient continues on IV antibiotics in the form of cefepime and vancomycin has been discontinued. Infectious disease is following. Today's chest x-ray shows diffuse bilateral pleural parenchymal changes correlate for ards, pulmonary edema, or diffuse pneumonia and patient is maintained on IV Lasix and will continue at this time. White count is 14.7 today, hemoglobin is 7.3. Current creatinine is 1.05 with a BUNs of 33. Ammonia level less than 9. Will continue to monitor closely. Review of systems: Unable to obtain as patient is intubated and sedated 11/19/2019 Patient is seen and evaluated and currently remains in the ICU being closely monitored. Patient was just recently extubated and tolerated well. Patient remains off sedation and continues to be on a small dose of Precedex. Patient also continues with a Dobbhoff tube feedings system and will continue at this ti me. Patient is awake and responding appropriately to simple commands. Right and left upper extremity design analyst strength noted. Right design analyst strength 3-5, left 4- 5. Patient is not talking as of yet although did mumble when asked a question and knodded head yes appropriately. Also medical consultations following. Patient is maintained on IV antibiotics and will continue at this time. White blood count slowly trending down and is currently 13.3. She remains on IV Lasix and current creatinine is 1.15 with a BUNs of 38. Sodium is 140. Patient is maintained on long-acting along with every 4 hours coverage and sliding scale and will continue at this time. Liver function slowly trending down. Patient is currently maintained on 4 L via nasal cannula. 11/20/19, patient is seen and evaluated in ICU; extubated yesterday. Patient is awake, follows very simple instructions, remains on 8 L high flow nasal cannula, O2 saturations 94%. Patient is hemodynamically stable not requiring any inotropes or pressors. Patient had an episode of A. fib with RVR yesterday and he received 2 boluses of amiodarone. Presently in normal sinus rhythm. Patient follows again simple instructions, but remains confused, oriented 1 to person. Continues to have Dobbhoff tube in place, and receiving enteral feeding. Remains on antibiotics in the form of Zosyn for presumptive aspiration. Laboratory review shows a white blood count of 20.5, hemoglobin 7.4; chemical profile significant for mild elevation in BUN of 36 Patient will continue to be monitored in ICU with empiric IV antibiotics; plan to wean off O2 as able; patient remains on aspirin, Plavix and Cardizem; diuretic therapy was continued Patient will remain on Dobbhoff tube feeding with plan to increase ambulation as possible 11/21/2019 Patient is seen and evaluated in ICU; patient reintubated yesterday after developing acute respiratory distress after developing atrial fibrillation with RVR which was treated with multiple medications including Cardizem drip and eventually metoprolol was increased to 50 mg 3 times a day; patient became bradycardic and developed pulmonary edema; patient remains sedated with propofol; CT angiogram of the chest was done which was negative for PE; chest x- ray shows improved pulmonary edema Patient remains on aspirin, Plavix and diuretics; continue with empiric antibiotic therapy; remains on nutritional support with Glucerna 11/22/2019 Patient is seen and evaluated in ICU; remains intubated and mechanically ventilated; patient had repeat chest x-ray this morning showing diffuse bilateral infiltrates and pleural effusion along with pneumothorax; patient remains on IV Lasix and is diuresing well; remains on tube feeding in form of Glucerna at rate of 75 mL per hour; blood pressure is stable without any pressor support; patient remains on IV antibiotics in the form of Zosyn and vancomycin; cultures have been negative so far 11/23/2019 Patient is seen and evaluated in follow up and continues to be in the ICU being closely monitored. Patient has been intubated and is currently sedated as patient will be undergoing bilateral chest tube placement for bilateral pleural effusions. Patient is maintained on IV lasix and will continue. Patient continues to be monitored closely while on IV antibiotics and will continue at this time. Will repeat am labs. Objective - Vital Signs Vital signs: Vital Signs Temp 97.5 F L 11/23/19 12:00 Pulse 80 11/23/19 15:38 Resp 18 11/23/19 15:38 BP 109/64 11/22/19 22:00 Pulse Ox 97 11/23/19 13:00 Intake & Output 11/22/19 11/23/19 11/23/19 18:59 06:59 18:59 Intake Total 2043.633 1357.814 771 Output Total 1765 1525 1015 Balance 278.633 -167.186 -244 Weight 90.4 kg 89 kg Intake: IV 749 316 191 .9NS @ 10 ml/hr 610 80 70 Normal Saline Pressure 39 36 21 Bag Piperacillin-Tazobactam 3 100 200 100 .375 gm In Sodium Chloride 0.9% 100 ml @ 25 mls/hr IVPB Q8HR [facility] Rx# :[id number] Intake, IV Titration 74.633 39.814 Amount Dexmedetomidine/0.9% NaCl 29.343 39.814 (Pmx) 400 mcg In Empty Bag 1 bag @ Titrate IV . Q0M [facility] Rx#:[id number] propofoL 1,000 mg In 45.29 Empty Bag 1 bag @ Titrate IV .Q0M [facility] Rx#: [id number] Tube Feeding 790 942 520 Blood Product 310 Rc As-1 Unit 310 [id number] Other 120 60 60 Output: Urine 1765 1525 1015 Other: Voiding Method Indwelling Catheter Indwelling Catheter Indwelling Catheter ABP, PAP, CO, CI - Last Documented Arterial Blood Pressure 105/43 Pulmonary Artery Pressure 30/17 Cardiac Output 4.5 Cardiac Index 2.3 - Exam Head: Atraumatic, normocephalic, currently intubated and sedated HEENT:Neck is supple.No neck masses.No thyromegaly.No JVD. Moist mucous membranes, PERRLA, EOMI, no icterus. Chest: Symmetrical chest expansion, crackles at the bases no rhonchi and no wheezes. bilateral chest tubes noted on the right and left Cardiac Exam: Normal S1 and S2, no S3 gallop, no murmur. Abdomen: Soft, nontender, no megaly, no rebound, no guarding, normal bowel sounds. Extremities: No clubbing, no edema, no cyanosis. Neurological Exam: intubated and sedated - Labs CBC & Chem 7: 11/23/19 04:30 11/23/19 04:30 Labs: Abnormal Lab Results - Last 24 Hours (Table) 11/22/19 11/22/19 11/22/19 Range/Units 04:30 19:56 23:45 RBC (4.30-5.90) m/uL Hgb (13.0-17.5) gm/dL Hct (39.0-53.0) % RDW (11.5-15.5) % ABG pH (7.35-7.45) ABG pO2 (83-108) mmHg ABG HCO3 (21-25) mmol/L ABG Total CO2 (19-24) mmol/L ABG O2 Saturation (94-97) % BUN (9-20) mg/dL Glucose (74-99) mg/dL POC Glucose (mg/dL) 182 H 148 H (75-99) mg/dL ALT (4-49) U/L Alkaline Phosphatase (38-126) U/L Total Protein (6.3-8.2) g/dL Albumin (3.5-5.0) g/dL Prealbumin 14.0 L (18.0-42.0) mg/dL 11/23/19 11/23/19 11/23/19 Range/Units 03:47 04:30 04:30 RBC 2.66 L (4.30-5.90) m/uL Hgb 8.3 L (13.0-17.5) gm/dL Hct 26.5 L (39.0-53.0) % RDW 16.2 H (11.5-15.5) % ABG pH (7.35-7.45) ABG pO2 (83-108) mmHg ABG HCO3 (21-25) mmol/L ABG Total CO2 (19-24) mmol/L ABG O2 Saturation (94-97) % BUN 39 H (9-20) mg/dL Glucose 131 H (74-99) mg/dL POC Glucose (mg/dL) 137 H (75-99) mg/dL ALT 244 H (4-49) U/L Alkaline Phosphatase 187 H (38-126) U/L Total Protein 5.7 L (6.3-8.2) g/dL Albumin 2.9 L (3.5-5.0) g/dL Prealbumin (18.0-42.0) mg/dL 11/23/19 11/23/19 11/23/19 Range/Units 05:40 08:33 12:02 RBC (4.30-5.90) m/uL Hgb (13.0-17.5) gm/dL Hct (39.0-53.0) % RDW (11.5-15.5) % ABG pH 7.52 H (7.35-7.45) ABG pO2 82 L (83-108) mmHg ABG HCO3 29 H (21-25) mmol/L ABG Total CO2 30 H (19-24) mmol/L ABG O2 Saturation 97.3 H (94-97) % BUN (9-20) mg/dL Glucose (74-99) mg/dL POC Glucose (mg/dL) 145 H 137 H (75-99) mg/dL ALT (4-49) U/L Alkaline Phosphatase (38-126) U/L Total Protein (6.3-8.2) g/dL Albumin (3.5-5.0) g/dL Prealbumin (18.0-42.0) mg/dL 11/23/19 Range/Units 12:25 RBC (4.30-5.90) m/uL Hgb (13.0-17.5) gm/dL Hct (39.0-53.0) % RDW (11.5-15.5) % ABG pH (7.35-7.45) ABG pO2 (83-108) mmHg ABG HCO3 (21-25) mmol/L ABG Total CO2 (19-24) mmol/L ABG O2 Saturation (94-97) % BUN (9-20) mg/dL Glucose (74-99) mg/dL POC Glucose (mg/dL) 124 H (75-99) mg/dL ALT (4-49) U/L Alkaline Phosphatase (38-126) U/L Total Protein (6.3-8.2) g/dL Albumin (3.5-5.0) g/dL Prealbumin (18.0-42.0) mg/dL Microbiology - Last 24 Hours (Table) 11/21/19 12:40 Gram Stain - Final Sputum Sputum Culture - Final Assessment and Plan Assessment: -Coronary artery disease and non-ST elevation myocardial infarction status post CABG 5 -bilateral pleural effusions status post bilateral chest tube placement of the left and right -Altered mental status most likely secondary to metabolic encephalopathy suspected, CVA, please refer to neurology evaluation. -New onset atrial fibrillation and RVR; remains rate controlled on Cardizem. -Type 2 diabetes; continue with Levemir 20 units subcu daily at bedtime; monitor Accu-Cheks every before meals and at bedtime with insulin sliding scale. -Peripheral vessel occlusive disease with prior peripheral stent placement. -Moderate severe COPD FEV1 of 60%; not in exacerbation; continue with bronchodilator nebulizer treatment and home inhaler therapy. -Acute kidney injury and acute shock liver secondary to hypotension, improving -DVT prophylaxis; subcu heparin -CODE STATUS; full code Plan: Patient to continue with current medications, management, and symptomatic treatment. Patient continues to be intubated and recently underwent bilateral chest tube placement for bilateral pleural effusions. Patient continues on IV lasix along with IV antibiotics at this time. Multiple medical consultations following. Will repeat am labs, and continue to monitor blood sugars closely. Further recommendations to follow. Prognosis is guarded.
[2019-11-23 23:57] LABS: Glucose,Whole Blood 170 mg/dL (75-99)
[2019-11-24] MEDS: INSULIN ASPART (NovoLOG) 100 UNIT/ML VIAL SQ SCH ×12 (00:16→20:35)
[2019-11-24] MEDS: HEPARIN SODIUM,PORCINE 5,000 UNIT/ML 1 ML VIAL SQ SCH ×3 (00:16→16:51)
[2019-11-24] MEDS: PIPERACILLIN-TAZOBACTAM 3.375 GM in SODIUM CHLORIDE 0.9% 100 ML IVPB SCH ×2 (00:17→08:06)
[2019-11-24 04:20] LABS: Glucose,Whole Blood 89 mg/dL (75-99)
[2019-11-24] MEDS: DEXMEDETOMIDINE/0.9% NACL(PMX) 400 MCG in EMPTY BAG 1 BAG IV SCH ×2 (04:21→18:46)
[2019-11-24 05:19] LABS: Basophils # (A) 0.1 k/uL (0-0.2); Basophils % (A) 1 %; Eosinophils # (A) 0.7 k/uL (0-0.7); Eosinophils % (A) 7 %; HGB 7.8 gm/dL (13.0-17.5); Hypochromasia Marked; Lymphocytes # (A) 0.8 k/uL (1.0-4.8); Lymphocytes % (A) 8 %; MCHC 31.2 g/dL (31.0-37.0); MCV 99.3 fL (80.0-100.0); Macrocytosis Slight; Mean Platelet Volume 8.6; Monocytes # (A) 0.6 k/uL (0-1.0); Monocytes % (A) 6 %; Neutrophils # (A) 7.4 k/uL (1.3-7.7); Neutrophils % (A) 74 %; Platelet Count 391 k/uL (150-450); RBC 2.52 m/uL (4.30-5.90); RDW 15.6 % (11.5-15.5)
[2019-11-24 05:31] LABS: Calcium 8.3 mg/dL (8.4-10.2); Potassium 3.8 mmol/L (3.5-5.1)
[2019-11-24 05:44] LABS: Allen Test Performed? Yes
[2019-11-24 05:47] LABS: ABG PCO2 36 mmHg (35-45)
[2019-11-24 05:48] LABS: ABG Base Excess 5.1 mmol/L; ABG HCO3 28 mmol/L (21-25); ABG PO2 66 mmHg (83-108); ABG TCO2 29 mmol/L (19-24)
[2019-11-24 06:10] LABS: Glucose,Whole Blood 95 mg/dL (75-99)
[2019-11-24] MEDS ORDERED: POTASSIUM BICARBONATE/CIT AC 20 MEQ TABLET.EFF PO ONE (06:15)
[2019-11-24] MEDS: FERROUS SULFATE ORAL ELIXIR 300 MG/5 ML CUP PO SCH ×2 (06:55→16:51)
[2019-11-24] MEDS: PANTOPRAZOLE 40 MG TABLET PO SCH (06:55)
[2019-11-24] MEDS: VANCOMYCIN ORAL SOLUTION 250 MG/5 ML BOTTLE PO SCH ×3 (06:56→18:54)
[2019-11-24] MEDS: ASCORBIC ACID 500 MG TAB PO SCH ×2 (06:56→17:48)
[2019-11-24 08:04] LABS: Glucose,Whole Blood 118 mg/dL (75-99)
[2019-11-24] MEDS: NYSTATIN 100,000 UNIT/ML SUSP 500,000 UNIT/5 ML CUP PO SCH ×4 (08:05→20:36)
[2019-11-24] MEDS: ASPIRIN 325 MG TAB PO SCH (08:05)
[2019-11-24] MEDS: CLOPIDOGREL 75 MG TAB PO SCH (08:05)
[2019-11-24] MEDS: ATORVASTATIN 40 MG TAB PO SCH (08:05)
[2019-11-24] MEDS: AMIODARONE 200 MG TAB NG-TUBE SCH ×2 (08:05→20:35)
[2019-11-24] MEDS: CHLORHEXIDINE GLUCONATE 15 ML CUP MUCOUS MEM SCH ×2 (08:05→20:35)
[2019-11-24] MEDS: FUROSEMIDE 10 MG/ML 4 ML VIAL IV SCH ×2 (08:06→20:35)
[2019-11-24] MEDS: IPRATROPIUM-ALBUTEROL 3 ML NEB INHALATION SCH ×4 (08:09→20:17)
[2019-11-24] MEDS: METOPROLOL TARTRATE 25 MG TAB NG-TUBE SCH ×2 (08:11→20:35)
[2019-11-24] MEDS: LOSARTAN 25 MG TAB PO SCH (08:11)
--- NOTE | 2019-11-24 08:47 | XR ---
EXAMINATION TYPE: XR chest 1V portable DATE OF EXAM: 11/24/2019 COMPARISON: Prior chest x-ray 11/23/2019 HISTORY: Intubated TECHNIQUE: Single frontal view of the chest is obtained. FINDINGS: Endotracheal tube, Dobbhoff tube are overlying appropriate positions. Bilateral chest tubes remain in place. There is no sizable pneumothorax. Bilateral patchy increased attenuation is present within the lungs. Heart is enlarged. Patient is post median sternotomy and left atrial appendage cli pping placement. There are overlying cardiac leads and artifacts. IMPRESSION: Correlate for edema, pneumonia, follow-up recommended.
--- NOTE | 2019-11-24 10:27 | P.PN ---
Subjective Progress Note Date: 11/24/19 Principal diagnosis: Coronary artery disease with unstable angina, and non-ST elevated [place], status post 5 vessel bypass grafting This is a 64-year-old male patient with coronary artery disease, noncompliant to medication. The patient came in with subendocardial infarction and cardiac catheterization showed diffuse coronary artery disease with critical stenosis. The patient underwent coronary artery bypass today. The patient underwent bypass 5 with GR to LAD, radial artery graft to acute marginal, saphenous finger after 2 posterior lateral and sick ration saphenous vein to first and second diagonal performed on cardiac pulmonary bypass with beating heart. Left atrial appendage was also added. The patient currently is in the intensive care unit. I centimeters in regards to the ICU. He was initially on a SIMV mode of ventilation at the rate of 12 with a tidal volume of 500 and FiO2 of 100% with a PEEP of 5 and a pressure support of 5. The blood gas showed a pH of 7.318 with a pCO2 of 49 and pO2 of 226. The chest x-ray postop showed volume overload with pulmonary vascular congestion and interstitial edema. The lines and tubes are all in good location. Based on all this, I increased the respiratory rate of 24. I do not FiO2 down to 60%. Current cardiac output is at 2.6 with an index of 5. The patient has 2 mediastinal 1 right pleural and 1 left pleural chest tube. Ultrasound of the sternal chest tubes has been around 150 mL since he arrived from the operating room. No evidence of any air leak. The patient is currently on a Cardizem drip and milrinone drip and the patient is on insulin drip for blood sugar control.he is well sedated. Is quite symptoms with the mechanical ventilator. Postoperative hemoglobin is at 8.2. Platelet count is down to 78. On today's evaluation of 11/09/2019, I'm seeing the patient for a follow-up. The patient was operated on yesterday and the patient underwent a five-vessel bypass surgery including a GR and the radial artery harvest. The patient was extubated within 6 hours and currently the patient is on oxygen by nasal cannula at 5 L. He is pleasantly confused this morning. He is able to sit up on a recliner. Hemodynamically, he did have some early of hypotension earlier this morning and for that reason the patient was given 750 mL of colloids and following that he was started on low-dose levo fed at 0.03 g per KG per minute. The patient remains on Primacor running at 0.125 g and the patient is also on Cardizem at 5 mg an hour. Insulin drip is running at 2.5 units an hour. Hemod ynamically, the patient's cardiac output is at 4.2 with an index of 2.2. The pulmonary artery pressure 28/12. CVP is at 11. Cardiac output is at 4.2. He is in his normal sinus rhythm. He has a backup VVI at the rate of 50. His chest x-rays showing small bilateral apical pneumothoraces. All of the chest tubes are in good location. The right and left pleural chest tube connected and they have drained approximately 130 mL over the past 8 hours. He is tender tubes are also connected and it has drained approximately 140 mL over the past 8 hours. The patient otherwise has no specific complaints. Sternum stable clean and intact. He is producing urine output in the order of 20-30 mL an hour. No other significant events overnight. Hemoglobin stable at 7.9. The platelet count improved to 102. On 11/10/2019, the patient is postop day #2. The patient is confused. He is nonverbal. He is not answering questions and is not following any commands. Upon watching him, I felt that the left side of the body slightly cachectic compared to the right. Nevertheless, the same as the patient was not cheered by the nursing staff been observing this patient longer to me. He has no prefer ential gaze toseizure activity. No reported shortness of breath or respiratory distress at this point in time. Mediastinal chest tubes and the pleural chest tubes are all in place. The patient has an AV epicardial pacer wire grounded to generator. As of yesterday, the patient was taken off the pressors. The patient is currently off the levo fed and he is off the Primacor. The patient also had the ALYX drains removed from the left lower extremity and arm. No other significant issues for now. No cardiac arrhythmias. No nausea. No vomiting. No emesis. He is resting comfortably in bed. The patient's hemoglobin is at 7.0. Was a causative 4.7. Diminished pulmonary vascular congestion and infiltration of the right lung base. There is resolution of the previously described bilateral pneumothoraces. On today's evaluation of 11/11/2019, the patient remains confused. I was told that he was able to say some few words. I was also told by the nursing staff that the patient was witnessed EXTREMITIES WITHOUT ANY LIMITATION IN PATIENT HAVING ANY FOCAL NEUROLOGICAL DEFICIT. NOTE THAT THE PATIENT EARLIER THIS MORNING WITH ATRIAL FIBRILLATION WITH RAPID VENTRICULAR RESPONSE. HIS HEART RATE WENT UP TO 180 beats per minute without any significant hypotension. That point, the patient was given amiodarone boluses and the patient received a total of 3 boluses prior to my arrival. He was also given 5 mg of IV Lopressor. Her, bilateral, the patient was still in atrial fibrillation. He was trying to hurt at times he thought it was going down. His baseline rhythm was atrial fibr illation and heart rate was in the range of 100-120. The patient denied having any chest pain. Sternum was stable treatment intact. No reported fever or chills. The mediastinal chest 11 already been removed yesterday. The right and the left pleural chest tubes are still in place and output is being noted. Chest x-ray from this morning showed adequate expansion of both lungs without evidence of any pneumothorax. No evidence of any pulmonary edema. The patient was being given Lasix 20 mg IV push every 12 hours. Hemoglobin from this morning was down to 6.7 and the patient was ordered to get a unit of packed RBC. Currently is postoperative #3 post 5 vessel coronary artery bypass surgery. On 11/12/2019 patient seen in follow-up in the intensive care unit, he is very restless on today's exam, although nursing reports some improvement in his neurological status, and apparently patient is answering questions appropriately, and he knows he is in the hospital, and he is given verbal r esponses to questions. he is awake and alert, he is restless, but appears to be in no acute distress, he is moving his legs and arms bilaterally, squirming in bed. Does not appear to be in any respiratory distress. He is currently on 5 L of oxygen, with pulse ox of 100%, hemodynamically patient is stable, no fever or chills. Lactate of Ringer's infusing at a rate of 40 ML per hour. Today's est x-ray has been reviewed showing increasing airspace opacity of the right upper lobe, similar prominent interstitial markings, no pneumothorax, no pleural effusions. Left pleural chest tube is in place, with a total output of 340 ML in the last 24 hours, right pleural chest tube put out 380 mL of serosanguineous thin output in the last 24 hours, media still chest tubes have been discontinued. Patient has produced 1.3 L and urine output in the last 24 hours. Junior catheter remains in place. Today's lab work has been reviewed, showing white blood cell count of 17.6, hemoglobin is 9.3, sodium of 138, potassium 3.8, chloride is 108, CO2 is 20, B1 is 39, creatinine is 1.17. She is in sinus arrhythmia with frequent PACs on the monitor, amiodarone drip has been switched to oral amiodarone 400 mg twice daily, patient is on oral Cardizem 30 mg every 6 hours, and oral metoprolol 50 mg twice daily. Blood cultures have shown no growth at the 24-hour elly. Patient has been afebrile. director trust is at the bedside in view of confusion and agitation, Junior catheter still has hematuria, which is dark in color, yesterday's brain CT showed patchy. Ventricular and deep white matter changes, left greater than right which have progressed from 01/09/2019, and areas of subacute ischemia are not excluded, MRI can further evaluate, no acute intracranial hemorrhage or midline shift. On 11/17/2019 patient seen in follow-up in the intensive care unit, she is sedated, intubated, on mechanical ventilator, current vent settings are assist- control with a rate of 16, tidal and was 450, FiO2 is 40%, and PEEP of 5. This morning his blood gases reveal pO2 of 92, pCO2 34, pH is 7.47. Current IV drips include 0.9 normal saline at a rate of 5 ML per hour, and improving and is at 60 mics per kilo per minute, tube feedings are with vital high-protein at a rate of 54, with a goal of 54 with standard water flushes with 30 mL of water every 4 hours. Patient was given daily traction of sedation yesterday, he awoke, and reportedly follow commands, but quickly became very tachypneic and hypertensive and had to be placed back on mechanical ventilator. His chest x-ray shows stable findings, persistent central vascular congestion and bibasilar opacities. Small to moderate-sized bilateral pleural effusions, appear to be stable. Patient remains on IV Lasix at 40 mg every 12 hours, and he is very slightly negative, only 6 mL, however he did produced over 3 L in urine output in the last 24 hours. He is off the vasopressor support, his weight is stable, he does have some generalized edema involving his upper and lower extremities. Remains on empiric antibiotics in the form of cefepime and vancomycin. He is afebrile, his blood urine and sputum cultures have shown no growth thus far. Today's labs have been reviewed. His white blood cell is stable at 15, hemoglobin is 7.7, sodium is 136, the rest of electrolytes were within normal limits, B1 is 33, and creatinine is 1.04, his liver enzymes are coming down, AST is down to 130, ALT is 692, alk phos is fairly stable at 195, his pro-calcitonin level was elevated and 0.99, suggesting presence of bacterial infection. Patient has been afebrile, abdomen is soft, nontender, patient is tolerating tube feedings. His hematuria has cleared up. On 11/18/2019 patient seen in follow-up in the intensive care unit. Patient is still intubated, his sedation has been on hold since 7:00 this morning, patient is awake, he is following basic commands, squeezing with his left hand, however his right hand is flaccid, and patient is not able to squeeze with the right hand. His current vent settings are assist-control with a rate of 16, tidal volume is 450, FiO2 is 40%, and PEEP of 5. This is blood gases showed pO2 106, pCO2 35, and pH of 7.49. Currently on no drips other than 0.9 normal saline at a rate of KVO. Patient has been tolerating tube feedings. Yesterday we repeated his CT of the brain which showed no evidence of acute hemorrhage, areas of patchy low attenuation in the left parietal white matter previously noted on previous brain scan this could be on the basis of subacute ischemia. MRI of the brain was recommended, neurology consultation was requested and patient is suspected to have probable subacute stroke involving multiple patchy areas in the left MCA vascular territory consideration of cardioembolic source. Patient did have transient atrial fibrillation. Follow-up MRI and MRA of the brain will be done once the patient is extubated and is able to travel down to the MRI department. Today's chest x-ray shows diffuse bilateral pleural parenchymal changes, no pneumothorax. Consider pulmonary edema, or underlying pneumonia. So far blood and urine and sputum cultures remain negative. Patient is afebrile, hemodynamically he stable, empiric antibiotic coverage is with Zosyn, vancomycin has been discontinued, ID service is following. Patient is on IV Lasix at 40 mg every 12 hours. He has produced 2.7 L and urine output over last 24 hours, he is in -280 mL fluid balance. He seems to get slightly agitated at times, becomes hypertensive, today she is following commands, we will try to keep him off sedation, to fully assess his mentation and neurological status, we will repeat LFTs, and ammonia level. On 11/22/2019 patient seen in follow-up in the intensive care unit. To recap patient was admitted to the hospital on 11/07/2019, and he had his 5 vessel coronary artery bypass grafting surgery and 11/08/2019 and patient was extubated on postoperative day 0 on 11/08/2019. In the postoperative period patient developed altered mental status worsening respiratory failure, symptomatic b radycardia and had to be emergently reintubated on 11/12/2019 and weaned and extubated on 11/19/2019. Patient is suspected to have sustained a subacute stroke involving multiple patchy areas in the left MCA distribution. He has not been able to travel to the MRI department for his follow-up MRI. Patient was weaned from the mechanical ventilator and extubated on 11/19/2019 last week however developed worsening hypoxia, pulmonary edema and had to be reintubated on 11/20/2019. Today she seen in the intensive care unit, sedated on 30 mics per kilo per minute of propofol infusion, and 0.9 normal seen at a rate of 10 ML per hour, he is intubated current vent settings are assist-control with a rate of 16, tidal line was 450, FiO2 is 50% and PEEP of 5, this was blood gases show pO2 of 123, pCO2 38 and pH of 7.51. His chest x-ray shows diffuse bilateral infiltrates and pleural effusion, sizable pneumothorax, interstitial pattern was noted. Patient remains on Lasix at 40 mg every 12 hours, diuresing, and he has made at 7.4 L in urine output in last 24 hours, and he is in -1.5 L net fluid balance over last 24 hours. He is receiving tube feedings with Glucerna 1.5 at a rate of 75 with a goal of 75 ML per hour. Afebrile and hemodynamically stable in the last 24 hours, not requiring any vasopressor support, today's labs have been reviewed showing limited cell count within normal limits at 9.9, hemoglobin is 7.0, electrolytes are within normal limits, BUN of 38, creatinine is 1.17, liver enzymes have steadily been improving, and AST is 93, ALT is 286, alkaline phosphatase was 199, his last ammonia level was back on the and was normal at less than 9. Blood sputum and urine cultures have shown no growth so far. Empiric and pneumatic coverage is with Zosyn and vancomycin On 11/23/2019 patient seen in follow-up in the intensive care unit, he opens eyes to verbal stimulation, he is following simple commands, he squeezing with his left hand, his right hand is quite weak, and almost flaccid. He is nodding his head appropriately to verbal questioning. Does not appear to be in any distress, yesterday we stopped his propofol infusion and put the patient on Precedex infusion which is currently infusing at a rate of 0.3 mics per kilo per hour. 0.9 normal saline at a rate of 20 ML, and he is tolerating his tube feedings of vital 1.2 at a rate of 70 with a goal of 70 with standard water flushes. His current vent settings are assist control with a rate of 16, tidal line is 450, FiO2 40% and PEEP of 5. Sometime in the last 24 hours patient has converted to sinus bradycardia, currently remains in sinus bradycardia with a rate of 54. Patient is currently being paced at AAI mode at a rate of 80 BPM. Hemodynamic patient stable, not on any pressors. Chest x-ray has been reviewed showing diffuse bilateral infiltrates and pleural effusions bilaterally, no sizable pneumothorax. Yesterday's ultrasound the chest showed a 4.8 cm pocket on the right and 3.2 cm pocket on the left. he remains on IV Lasix of 40 mg every 12 hours, and he is slightly positive net fluid balance, +111 mL over last 24 hours. He did however produced 3.2 L in urine output over the last 24 hours. He is on empiric antibiotics with Zosyn and oral vancomycin for possibility of C. diff, all his culture data has been negative thus far. Did have a low-grade fever this morning with a temp of 99.7F. Today's labs have been reviewed showing white blood cell count of 8.8, hemoglobin of 8.3, platelet count is 388, electrolytes are within normal limits, BUN is 39 creatinine is 1.21. His blood gas has been reviewed showing pO2 of 82, pCO2 of 36 and pH of 7.52. Dobbhoff tube is in place through which the patient is receiving tube feedings. lung sounds are clear, diminished at the bases, abdomen is soft, nontender. On 11/24/2019 patient seen in follow-up in intensive care unit, patient remains intubated, sedated on mechanical ventilator current settings are assist-control with a rate of 16, tidal line is 450, FiO2 is 40% and PEEP of 5. This morning blood gas was reviewed showing pO2 of 66, pCO2 36, and pH is 7.5. Patient is currently on Precedex at 0.2 mics per kilo per hour, this was cut back from this morning from 0.5 mics per kilo per hour, 0.9 normal saline at a rate of 10, no vasoactive drips. Patient is on Zosyn for empiric antibiotic coverage, all culture data including blood culture sputum and urine cultures have been negative. She did have a low-grade fever this morning with a temp of 100.3F. He is receiving tube feedings with the vital AF at a rate of 78 with a goal of 70 and standard water flushes. She has a Dobbhoff tube inserted through which she is receiving nutritional support. Yesterday patient tolerated some pressure support trials with pressure support of 10 and CPAP at 5, for several hours, however at 7:30 in the evening apparently patient went into A. fib with RVR, and possibly developed a mucous plug, out to worsening shortness of breath, and was placed back on assist control mode of ventilation. Patient had been on oral amiodarone and metoprolol, he had since converted back to sinus bradycardia, this morning he is paced at a rate of 80 BPM in the AAI mode of pacing, and his underlying rhythm is sinus bradycardia with a rate of 52 BPM. Today's chest x- ray has been reviewed showing bilateral patchy increased attenuation within the lungs. Patient remains on Zosyn for antibiotic coverage, sputum has shown no growth. Today's labs have been reviewed showing white blood cell count of 10.0, hemoglobin is 7.8, sodium is 142, potassium 3.8, chloride is 108, CO2 is 28, BUN of 38, and creatinine is 1.10. And is following simple commands, he is profoundly weak. We'll proceed with pressure-support trials again today. Objective - Vital Signs Vital signs: Vital Signs Temp 100.3 F H 11/24/19 08:00 Pulse 80 11/24/19 10:00 Resp 24 11/24/19 10:00 BP 109/64 11/24/19 05:00 Pulse Ox 98 11/24/19 10:00 Intake & Output 11/23/19 11/24/19 11/24/19 18:59 06:59 18:59 Intake Total 1143.141 6466.521 535.796 Output Total 2665 2505 685 Balance -1299.351 -1191.479 -149.204 Weight 84.6 kg Intake: IV 369 293 152 .9NS @ 10 ml/hr 130 60 40 Normal Saline Pressure 39 33 12 Bag Piperacillin-Tazobactam 3 200 200 100 .375 gm In Sodium Chloride 0.9% 100 ml @ 25 mls/hr IVPB Q8HR [facility] Rx# :[id number] Intake, IV Titration 106.649 90.521 43.796 Amount Dexmedetomidine/0.9% NaCl 90.521 43.796 (Pmx) 400 mcg In Empty Bag 1 bag @ 0.3 MCG/KG/HR 6.675 mls/hr IV .[id number] [facility] Rx#:[id number] Dexmedetomidine/0.9% NaCl 99.44 (Pmx) 400 mcg In Empty Bag 1 bag @ Titrate IV . Q0M [facility] Rx#:[id number] propofoL 1,000 mg In 7.209 Empty Bag 1 bag @ Titrate IV .Q0M [facility] Rx#: [id number] Tube Feeding 800 840 280 Other 90 90 60 Output: Chest Tube Drainage 950 530 90 left lateral chest tube 470 360 40 right lateral chest tube 480 170 50 Urine 1715 1975 595 Other: Voiding Method Indwelling Catheter Indwelling Catheter Indwelling Catheter ABP, PAP, CO, CI - Last Documented Arterial Blood Pressure 103/46 Pulmonary Artery Pressure 30/17 Cardiac Output 4.5 Cardiac Index 2.3 - Exam GENERAL EXAM: intubated 64-year-old white male, with FiO2 50%, patient is awake, following simple commands, squeezing with his left hand, right hand is flaccid, currently on Precedex at 0.2 mics per kilo per hour HEAD: Normocephalic/atraumatic. EYES: Normal reaction of pupils, equal size. Conjunctiva pink, sclera white. NOSE: Clear with pink turbinates. Patient has a Dobbhoff feeding tube in place with tube feedings infusing THROAT: No erythema or exudates. NECK: No masses, no JVD, no thyroid enlargement, no adenopathy. CHEST: No chest wall deformity. Symmetrical expansion. Midsternal incision is clean dry and intact, interval removal of chest tubes, AV wires remain in place to external pacemaker, intrinsic rhythm is sinus bradycardia with a rate of 54, and patient is being paced AAI mode with a rate of 80 BPM LUNGS: Equal air entry with no crackles, wheeze, rhonchi or dullness. CVS: regular rate and rhythm, normal S1 and S2, no gallops, no murmurs, no rubs, ABDOMEN: Soft, nontender. No hepatosplenomegaly, normal bowel sounds, no guarding or rigidity. EXTREMITIES: No clubbing, no edema, no cyanosis, 2+ pulses and upper and lower extremities. MUSCULOSKELETAL: Muscle strength and tone normal. SPINE: No scoliosis or deformity SKIN: No rashes CENTRAL NERVOUS SYSTEM: Patient is awake and following simple commands - Labs CBC & Chem 7: 11/24/19 04:55 11/24/19 04:55 Labs: Abnormal Lab Results - Last 24 Hours (Table) 11/23/19 11/23/19 11/23/19 Range/Units 12:02 12:25 16:50 RBC (4.30-5.90) m/uL Hgb (13.0-17.5) gm/dL Hct (39.0-53.0) % RDW (11.5-15.5) % Lymphocytes # (1.0-4.8) k/uL ABG pH (7.35-7.45) ABG pO2 (83-108) mmHg ABG HCO3 (21-25) mmol/L ABG Total CO2 (19-24) mmol/L Chloride (98-107) mmol/L BUN (9-20) mg/dL Glucose (74-99) mg/dL POC Glucose (mg/dL) 137 H 124 H 127 H (75-99) mg/dL Calcium (8.4-10.2) mg/dL ALT (4-49) U/L 11/23/19 11/23/19 11/24/19 Range/Units 19:58 23:56 04:55 RBC 2.52 L (4.30-5.90) m/uL Hgb 7.8 L (13.0-17.5) gm/dL Hct 25.0 L (39.0-53.0) % RDW 15.6 H (11.5-15.5) % Lymphocytes # 0.8 L (1.0-4.8) k/uL ABG pH (7.35-7.45) ABG pO2 (83-108) mmHg ABG HCO3 (21-25) mmol/L ABG Total CO2 (19-24) mmol/L Chloride (98-107) mmol/L BUN (9-20) mg/dL Glucose (74-99) mg/dL POC Glucose (mg/dL) 159 H 170 H (75-99) mg/dL Calcium (8.4-10.2) mg/dL ALT (4-49) U/L 11/24/19 11/24/19 11/24/19 Range/Units 04:55 05:40 08:02 RBC (4.30-5.90) m/uL Hgb (13.0-17.5) gm/dL Hct (39.0-53.0) % RDW (11.5-15.5) % Lymphocytes # (1.0-4.8) k/uL ABG pH 7.50 H (7.35-7.45) ABG pO2 66 L (83-108) mmHg ABG HCO3 28 H (21-25) mmol/L ABG Total CO2 29 H (19-24) mmol/L Chloride 108 H (98-107) mmol/L BUN 38 H (9-20) mg/dL Glucose 62 L (74-99) mg/dL POC Glucose (mg/dL) 118 H (75-99) mg/dL Calcium 8.3 L (8.4-10.2) mg/dL ALT 178 H (4-49) U/L Microbiology - Last 24 Hours (Table) 11/21/19 12:40 Gram Stain - Final Sputum Sputum Culture - Final Assessment and Plan Plan: Assessment: 1 coronary artery disease without stable angina and non-STEMI. The patient underwent five-vessel bypass surgery on 11/08/2019. CABG 5 with GR to LAD, left radial artery to obtuse marginal, saphenous vein to posterior lateral, sequential saphenous vein to first and second diagonal performed on cardio pulmonary bypass with beating heart. Epi-aortic ultrasound and ligation of left atrial appendage with Atriclip. The patient is postop day #16. Hemodynamically stable. 2 recurrent acute hypoxic respiratory failure, multifactorial, patient was initially intubated for the original surgery on 11/08/2019 with extubation on 11/08/2019, patient was re-intubated on 11/12/2019, for symptomatic bradycardia, worsening lactic acidosis, of unclear etiology. Patient was successfully weaned and extubated on 11/19/2019, and subsequently reintubated on 11/20/2019 for worsening hypoxemia related to pulmonary edema and A. fib with RVR. Antibiotics have been given empirically, cultures remain negative 3 altered mental status likely related to metabolic encephalopathy, subacute CVA involving the left MCA distribution please refer to the neurology evaluation 4 new-onset atrial fibrillation with RVR, expected outcome of surgery, intermittent requiring amiodarone infusion. On 11/22/2019 patient is in A. fib with slightly tachycardic rate. On 11/23/2019 patient had converted to sinus bradycardia, with a rate of 54, and patient is being paced at AAI mode with a rate of 80 BPM 5 blood loss anemia , expected outcome of surgery, and this is likely of blood loss anemia. Patient transfused with 3 units of blood this admission 6 COPD with an FEV1 of 60% of predicted at baseline 7 Peripheral vascular disease with prior peripheral stent placements 8 Right carotid artery stenosis at 50-69% 9 History of marijuana use 10 Diabetes mellitus, type II, insulin drip for blood sugar control, running at 1.5 units per hour. 11 History of bladder cancer status post radiation/chemotherapy and subsequent surgery 12 History of noncompliance Plan: Continue with current dose of diuretics, and breathing treatments, continue Zosyn, all culture data remains negative thus far, patient did have a low-grade fever this morning, vital signs are stable, hemodynamically patient is stable, he did have an episode of A. fib RVR last night, he had since converted back to sinus bradycardia, currently being paced at a rate of 80 BPM. There is chest x- ray has been reviewed with Dr. Ragsdale showing persistence of patchy bilateral attenuation, with possibility of pulmonary edema versus pneumonia. Continue with diuretics and antibiotics, continue breathing treatments, pulmonary toileting. We'll proceed with pressure support of 10 and CPAP 5 trial again today. May continue using Precedex for anxiety. GI and DVT prophylaxis. Because of alterable episodes of respiratory failure and placement on mechanical ventilation patient has developed severe generalized weakness, we will continue him on pressure-support trials, to make sure he doesn't fail again. There is a possibility patient may need a tracheostomy and PEG tube placement. We'll continue to follow I performed a history & physical examination of the patient and discussed their management with my nurse practitioner, Elva Newberry. I reviewed the nurse practitioner's note and agree with the documented findings and plan of care. Lung sounds are positive for clear breath sounds. The findings and the impression was discussed with the patient. I attest to the documentation by the nurse practitioner. Critical care time is greater then 30 minutes Time with Patient: Greater than 30
[2019-11-24 11:52] LABS: Glucose,Whole Blood 125 mg/dL (75-99)
[2019-11-24] MEDS: CHOLESTYRAMINE (WITH SUGAR) 4 GM PACKET PO SCH ×3 (11:58→21:48)
--- NOTE | 2019-11-24 13:51 | P.PN ---
Subjective Progress Note Date: 11/24/19 Principal diagnosis: Symptomatic multivessel coronary artery disease, unstable angina, status post subendocardial myocardial infarction. Past medical history significant for CAD with previous stent placement to the proximal circumflex and ostial OM1, hypertension, hyperlipidemia, chronic ongoing tobacco dependence, mild COPD with preoperative FEV1 60% of predicted, right internal carotid artery stenosis 50- 69%, peripheral arterial disease with previous arthrectomy and BUSINESS MANAGEMENT PROFESSOR of the left SFA, atherectomy and BUSINESS MANAGEMENT PROFESSOR of the left GROUND WORKER, with stenting of the left BRIAN, poorly controlled type 2 diabetes with preoperative hemoglobin A1c 9.1%, bladder cancer status post chemo and radiation, occasional marijuana use, medication noncompliance, and family history of premature coronary artery disease. POD #16 coronary artery bypass grafting 5 with GR to the LAD, left radial artery to the obtuse marginal coronary artery, a reverse greater saphenous vein to the posterior lateral coronary artery, sequential saphenous vein to the first and second diagonal coronary artery performed on cardiopulmonary bypass with beating heart. Endoscopic vein harvest of the left greater saphenous vein from the ankle to the groin. Endoscopic harvest of the left radial artery. Epi- aortic ultrasound and ligation of left atrial appendage with 40 mm AtriCure clip. Postoperative acute blood loss anemia, expected outcome given cardiopulmonary bypass and hemodilution. Postoperative encephalopathy, unexpected but potential outcome given cardiopulmonary bypass and intraoperative cardiac arrest. Postoperative new onset paroxysmal Afib with RVR, unexpected. Postoperative acute hypoxemic respiratory failure requiring reintubation, secondary to metabolic acidosis and hypotension. Postoperative stage II pressure ulcer on coccyx, unexpected. The patient was seen in follow-up today 11/24/2019 at his bedside in the intensive care unit. He remains intubated with mechanical ventilator support and is arousable on Precedex drip. Currently he is on a A/C mode rate 16, TV 450, FiO2 40%, PEEP 5, oxygen saturation is 99%. Nursing stated he had a mucous plug overnight and went into AFib with RVR. After deep suctioning and switching ventilator mode to AC, he went back to his set AAI rate of 80 via epicardial pacer. He tracks you around the room and is following some simple commands appropriately and is squeezing equally with both his left and right hand. Dobbhoff tube remains in place with vital AF tube feeding infusing at goal rate of 70 mL per hour with 30 mL every 4 hours water flushes. Patient remains having loose stools with fecal management system in place. Remains on antibio tic coverage with Zosyn IV piggyback and per Dobbhoff tube vancomycin. Cultures remain negative. Laboratory results today show a WBC count 10.0, hemoglobin 7.8, BUN 38, creatinine 1.1, AST 41 and ALT 141. Temp this morning was 100.3 Chest x-ray 11/23/19 showed bilateral pleural effusions and bilateral pleural chest tubes were placed by Dr Alvarado. The left pleural drained serosanguinous fluid - 360 ml for 8 hours for a total of 850 since insertion. His right pleural chest tube drained serosanguinous fluid - 170 ml for 8 hours for a total of 700 ml out since insertion. Objective - Vital Signs Vital signs: Vital Signs Temp 100.3 F H 11/24/19 08:00 Pulse 80 11/24/19 10:00 Resp 24 11/24/19 10:00 BP 109/64 11/24/19 05:00 Pulse Ox 98 11/24/19 10:00 Intake & Output 11/23/19 11/24/19 11/24/19 18:59 06:59 18:59 Intake Total 3795.262 2636.521 535.796 Output Total 2665 2505 685 Balance -1299.351 -1191.479 -149.204 Weight 84.6 kg Intake: IV 369 293 152 .9NS @ 10 ml/hr 130 60 40 Normal Saline Pressure 39 33 12 Bag Piperacillin-Tazobactam 3 200 200 100 .375 gm In Sodium Chloride 0.9% 100 ml @ 25 mls/hr IVPB Q8HR [facility] Rx# :[id number] Intake, IV Titration 106.649 90.521 43.796 Amount Dexmedetomidine/0.9% NaCl 90.521 43.796 (Pmx) 400 mcg In Empty Bag 1 bag @ 0.3 MCG/KG/HR 6.675 mls/hr IV .[id number] [facility] Rx#:[id number] Dexmedetomidine/0.9% NaCl 99.44 (Pmx) 400 mcg In Empty Bag 1 bag @ Titrate IV . Q0M [facility] Rx#:[id number] propofoL 1,000 mg In 7.209 Empty Bag 1 bag @ Titrate IV .Q0M Y[facility] Rx#: [id number] Tube Feeding 800 840 280 Other 90 90 60 Output: Chest Tube Drainage 950 530 90 left lateral chest tube 470 360 40 right lateral chest tube 480 170 50 Urine 1715 1975 595 Other: Voiding Method Indwelling Catheter Indwelling Catheter Indwelling Catheter ABP, PAP, CO, CI - Last Documented Arterial Blood Pressure 103/46 Pulmonary Artery Pressure 30/17 Cardiac Output 4.5 Cardiac Index 2.3 - Constitutional Constitutional Comment(s): This patient is alert, following simple commands, on a Precedex drip. - EENT Eyes: Present: PERRLA, poor dentition, normal appearance - Neck Neck: Present: normal ROM. Absent: lymphadenopathy - Respiratory Details: Lung sounds are clear to his bilateral upper lobes, diminished to his bilateral bases. Respirations are symmetrical and nonlabored with mechanical ventilator support. Current mechanical ventilator settings are as follows: AC 16, TV 450, FiO2 40%, PEEP 5 and oxygen saturation is 99%. - Cardiovascular Details: Regular rhythm and rate. S1 and S2 present, negative for S3, gallop or murmur. Sternum is stable. Atrial and ventricular epicardial pacemaker wires in place and connected to a backup bedside pacemaker generator on an AAI of 80. Bedside telemetry showing atrial paced rhythm with an underlying rhythm of sinus bradycardia rate in the 50s. No edema present. Knee-high ELSIE hose and sequential compression devices in place was bilateral lower extremities. Right radial arterial line in place and functioning. Left upper arm midline IV catheters in place and functioning. Heart hugger is in place. - Gastrointestinal Gastrointestinal Comment(s): Abdomen is soft, nontender and nondistended. Active bowel sounds present in all 4 abdominal quadrants. No guarding or rigidity. Tube feedings infusing at goal rate of 70 mL per hour of vital AF per Dobbhoff tube with automatic water flushes 30 mL every 4 hours. Fecal management system present with brown liquid stool. - Genitourinary Genitourinary Comment(s): Newman catheter for accurate I&O. Draining clear yellow urine with occasional sediment. - Integumentary Integumentary Comment(s): Skin is warm and dry. No clubbing or cyanosis is present. Midline sternal incision is clean, dry and approximated. No drainage or redness is present. Left arm radial artery harvest sites clean, dry and approximated. No drainage or redness is present. Left lower extremity EVH sites are clean, dry and ap proximated. No drainage or redness is present. - Neurologic Neurologic Comment(s): Patient awake and comfortable on Precedex drip. Following some simple commands with essentially equal boiler shop supervisor to his bilateral hands. - Musculoskeletal Musculoskeletal Comment(s): Patient awake and comfortable on Precedex drip. Following some simple commands with essentially equal boiler shop supervisor to his bilateral hands - Psychiatric Psychiatric Comment(s): Patient awake and comfortable on Precedex drip. Following some simple commands with essentially equal boiler shop supervisor to his bilateral hands. - Allied health notes Allied health notes reviewed: nursing - Labs CBC & Chem 7: 11/24/19 04:55 11/24/19 04:55 Labs: Abnormal Lab Results - Last 24 Hours (Table) 11/23/19 11/23/19 11/23/19 Range/Units 12:02 12:25 16:50 RBC (4.30-5.90) m/uL Hgb (13.0-17.5) gm/dL Hct (39.0-53.0) % RDW (11.5-15.5) % Lymphocytes # (1.0-4.8) k/uL ABG pH (7.35-7.45) ABG pO2 (83-108) mmHg ABG HCO3 (21-25) mmol/L ABG Total CO2 (19-24) mmol/L Chloride (98-107) mmol/L BUN (9-20) mg/dL Glucose (74-99) mg/dL POC Glucose (mg/dL) 137 H 124 H 127 H (75-99) mg/dL Calcium (8.4-10.2) mg/dL ALT (4-49) U/L 11/23/19 11/23/19 11/24/19 Range/Units 19:58 23:56 04:55 RBC 2.52 L (4.30-5.90) m/uL Hgb 7.8 L (13.0-17.5) gm/dL Hct 25.0 L (39.0-53.0) % RDW 15.6 H (11.5-15.5) % Lymphocytes # 0.8 L (1.0-4.8) k/uL ABG pH (7.35-7.45) ABG pO2 (83-108) mmHg ABG HCO3 (21-25) mmol/L ABG Total CO2 (19-24) mmol/L Chloride (98-107) mmol/L BUN (9-20) mg/dL Glucose (74-99) mg/dL POC Glucose (mg/dL) 159 H 170 H (75-99) mg/dL Calcium (8.4-10.2) mg/dL ALT (4-49) U/L 11/24/19 11/24/19 11/24/19 Range/Units 04:55 05:40 08:02 RBC (4.30-5.90) m/uL Hgb (13.0-17.5) gm/dL Hct (39.0-53.0) % RDW (11.5-15.5) % Lymphocytes # (1.0-4.8) k/uL ABG pH 7.50 H (7.35-7.45) ABG pO2 66 L (83-108) mmHg ABG HCO3 28 H (21-25) mmol/L ABG Total CO2 29 H (19-24) mmol/L Chloride 108 H (98-107) mmol/L BUN 38 H (9-20) mg/dL Glucose 62 L (74-99) mg/dL POC Glucose (mg/dL) 118 H (75-99) mg/dL Calcium 8.3 L (8.4-10.2) mg/dL ALT 178 H (4-49) U/L Microbiology - Last 24 Hours (Table) 11/21/19 12:40 Gram Stain - Final Sputum Sputum Culture - Final - Imaging and Cardiology Chest x-ray: report reviewed, image reviewed Assessment and Plan Assessment: 1. Symptomatic multivessel coronary artery disease, recent non-STEMI, status post 5 vessel CABG 2. Leukocytosis, unknown origin, may be reactive 3. Previous stent placement to the proximal circumflex and ostial OM1 4. History of hypertension 5. History of hyperlipidemia 6. Chronic ongoing tobacco dependence 7. Mild COPD, preoperative FEV1 60% of predicted value 8. Right internal carotid artery stenosis 50-69% 9. 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 Poorly controlled diabetes mellitus type 2, admission hemoglobin A1c 9.1% 11. History of bladder cancer status post radiation, chemotherapy treatment and bladder surgery 12. Occasional marijuana use 13. Medication noncompliance 14. Family history of early onset coronary artery disease 15. Postoperative acute blood loss anemia, expected 16. Postoperative confusion, unexpected 17. Mild ISAAC, creatinine today 1.46 yesterday 1.44 18. New onset Afib with RVR, status post left atrial appendage ligation 19. New onset hematuria from patient pulling at newman catheter 20. Postoperative acute hypoxic respiratory failure requiring reintubation, secondary to metabolic acidosis and hypotension 21. Elevated transaminase levels, secondary to hypotension, trending down 22. Postoperative stage II pressure ulcer, coccyx 23. Postoperative bilateral pleural effusion, status post bilateral pleural chest tube placement Plan: 1. Continue aspirin, Plavix and statin and beta gaurav. We will increase metoprolol tartrate as tolerated, continue to follow hold parameters. 2. Continue to monitor bilateral chest tube output, notify us with any changes in output consistency. 3. Continue amiodarone by mouth for atrial fibrillation prophylaxis. 4. Keep Newman catheter in place for accurate I&O. Newman catheter was changed on 11/14/2019. 5. Mechanical ventilator management per pulmonary/critical care medicine recommendations. 6. Continued Dobbhoff tube with tube feedings vital AF infusing at 70 mL per hour with 30 mL every 4 hours of water flushes. Per dietitian's recommendations. 7. Will monitor daily labs and chest x-rays. Electrolyte replacement per protocol. 8. Continue Tylenol for pain management, hold narcotics and toradol. 9. GI/DVT prophylaxis. 10. Insulin management per primary care service. 11. Continue Lasix 40 mg IV twice a day. 12. Nursing staff to assist with passive range of motion and turning the pa tient every 2 hours and when necessary. 13. Continue to avoid nephrotoxic agents. 14. Keep atrial and ventricular epicardial pacemaker wires in place and connected to a backup pacemaker generator with an AAI of 80. 15. Infectious disease is following for antibiotic management. WBC count is 10.0 today. 16. Reorient as necessary. Continue to assess mental status. 17. More recommendations to follow based on patient's clinical course. Time with Patient: Greater than 30
--- NOTE | 2019-11-24 13:55 | P.PN ---
Subjective Progress Note Date: 11/24/19 Patient was seen for a follow-up. Patient re-intubated on 11/20/2019. Patient has been off sedation. Still intubated. He is fully alert and awake. Much more interactive. Please refer to examination below. Objective - Vital Signs Vital signs: Vital Signs Temp 100.3 F H 11/24/19 08:00 Pulse 78 11/24/19 12:15 Resp 18 11/24/19 11:00 BP 109/64 11/24/19 05:00 Pulse Ox 98 11/24/19 11:00 Intake & Output 11/23/19 11/24/19 11/24/19 18:59 06:59 18:59 Intake Total 7590.187 8998.521 814.796 Output Total 2665 2505 1335 Balance -1299.351 -1191.479 -520.204 Weight 84.6 kg Intake: IV 369 293 191 .9NS @ 10 ml/hr 130 60 70 Normal Saline Pressure 39 33 21 Bag Piperacillin-Tazobactam 3 200 200 100 .375 gm In Sodium Chloride 0.9% 100 ml @ 25 mls/hr IVPB Q8HR [facility] Rx# :[id number] Intake, IV Titration 106.649 90.521 43.796 Amount Dexmedetomidine/0.9% NaCl 90.521 43.796 (Pmx) 400 mcg In Empty Bag 1 bag @ 0.3 MCG/KG/HR 6.675 mls/hr IV .[id number] [facility] Rx#:[id number] Dexmedetomidine/0.9% NaCl 99.44 (Pmx) 400 mcg In Empty Bag 1 bag @ Titrate IV . Q0M [facility] Rx#:[id number] propofoL 1,000 mg In 7.209 Empty Bag 1 bag @ Titrate IV .Q0M [facility] Rx#: [id number] Tube Feeding 800 840 490 Other 90 90 90 Output: Chest Tube Drainage 950 530 90 left lateral chest tube 470 360 40 right lateral chest tube 480 170 50 Urine 1715 1975 1245 Other: Voiding Method Indwelling Catheter Indwelling Catheter Indwelling Catheter ABP, PAP, CO, CI - Last Documented Arterial Blood Pressure 114/50 Pulmonary Artery Pressure 30/17 Cardiac Output 4.5 Cardiac Index 2.3 - Exam Patient is intubated. He is fully alert and awake. Patient follows commands. His maker up folding has much improved. Patient somewhat frustrated today. Not following commands willingly it appears in the lower limbs. Patient withdraws to plantar stimulation very well on either side, left better than right. Patient maker up folding is almost equal, left may be slightly stronger. Tone appears well. - Labs CBC & Chem 7: 11/24/19 04:55 11/24/19 04:55 Labs: Abnormal Lab Results - Last 24 Hours (Table) 11/23/19 11/23/19 11/23/19 Range/Units 16:50 19:58 23:56 RBC (4.30-5.90) m/uL Hgb (13.0-17.5) gm/dL Hct (39.0-53.0) % RDW (11.5-15.5) % Lymphocytes # (1.0-4.8) k/uL ABG pH (7.35-7.45) ABG pO2 (83-108) mmHg ABG HCO3 (21-25) mmol/L ABG Total CO2 (19-24) mmol/L Chloride (98-107) mmol/L BUN (9-20) mg/dL Glucose (74-99) mg/dL POC Glucose (mg/dL) 127 H 159 H 170 H (75-99) mg/dL Calcium (8.4-10.2) mg/dL ALT (4-49) U/L 11/24/19 11/24/19 11/24/19 Range/Units 04:55 04:55 05:40 RBC 2.52 L (4.30-5.90) m/uL Hgb 7.8 L (13.0-17.5) gm/dL Hct 25.0 L (39.0-53.0) % RDW 15.6 H (11.5-15.5) % Lymphocytes # 0.8 L (1.0-4.8) k/uL ABG pH 7.50 H (7.35-7.45) ABG pO2 66 L (83-108) mmHg ABG HCO3 28 H (21-25) mmol/L ABG Total CO2 29 H (19-24) mmol/L Chloride 108 H (98-107) mmol/L BUN 38 H (9-20) mg/dL Glucose 62 L (74-99) mg/dL POC Glucose (mg/dL) (75-99) mg/dL Calcium 8.3 L (8.4-10.2) mg/dL ALT 178 H (4-49) U/L 11/24/19 11/24/19 Range/Units 08:02 11:50 RBC (4.30-5.90) m/uL Hgb (13.0-17.5) gm/dL Hct (39.0-53.0) % RDW (11.5-15.5) % Lymphocytes # (1.0-4.8) k/uL ABG pH (7.35-7.45) ABG pO2 (83-108) mmHg ABG HCO3 (21-25) mmol/L ABG Total CO2 (19-24) mmol/L Chloride (98-107) mmol/L BUN (9-20) mg/dL Glucose (74-99) mg/dL POC Glucose (mg/dL) 118 H 125 H (75-99) mg/dL Calcium (8.4-10.2) mg/dL ALT (4-49) U/L Assessment and Plan Assessment: * Probable subacute stroke involving multiple patchy areas in the left MCA vascular territory. Rule out cardioembolic source. Patient had transient atrial fibrillation, therefore cardioembolic stroke is definitely a possibility. Patient is doing much better clinically. * Status post coronary artery bypass grafting. * Right ICA stenosis 50-69% per carotid ultrasound. * Hypertension * Diabetes * Medical noncompliance in the past. * Tobacco use. Plan: * Possible extubation tomorrow. * Await MRI of the brain without contrast, and MRA of the brain without contrast, when cardiology clears patient. * Patient's 2-D echo showed no obvious embolic source at this time. * Carotid Doppler showed 50-69% stenosis proximal right ICA. * Patient currently on aspirin 325 mg and Plavix 75 mg. Also on Lipitor 40 mg. * Please call neurology, when patient extubated, or if patient gets MRI done, then for a neurological follow-up. * Discussed with patient's , who was present today.
--- NOTE | 2019-11-24 14:58 | XR ---
KUB HISTORY: Dobbhoff placement Frontal KUB and 2 images There is a lead present over the bladder likely Junior catheter. Epicardial leads are also present. Do bbhoff tube is overlying the stomach. IMPRESSION: Dobbhoff in the stomach
--- NOTE | 2019-11-24 15:50 | PN ---
PROGRESS NOTE Dillan is a 64-year-old gentleman who has CAD, status post CABG and has had a prolonged hospital stay. This morning he is intubated on vent, but off sedation, is alert and is responding to questions. On exam, heart rate is 80 beats per minute. Blood pressure is 114/50, respiratory rate is 18, O2 saturation is 98%. Chest exam reveals diminished air entry at the bases, heart exam reveals first and second heart sounds. No gallop. Abdomen is soft. Exam of the extremities did not reveal any edema. Peripheral pulses are felt. LABS: Show a hemoglobin of 7.8, platelet count is 390, potassium is 3.8, creatinine is 1.1. ASSESSMENT: 1. CAD status post CABG. 2. Vent requiring respiratory failure. PLAN: Patient will continue the aspirin, Cordarone, Lipitor, Plavix, Lasix, Lopressor. MMNICKL / BRYAN: [id number] /
--- NOTE | 2019-11-24 16:20 | PN ---
PROGRESS NOTE DATE OF SERVICE: 11/24/2019 REASON FOR FOLLOWUP: 1. Diarrhea; possibly C difficile. 2. Question of pneumonia. INTERVAL HISTORY: The patient is currently afebrile. The patient is hemodynamically stable. The patient remains intubated on the vent. FiO2 is currently at 40%. No significant purulent secretions in the ET. He continues to have diarrhea, for which the patient did have fecal management system. The patient seems to be a little bit more awake and alert on the vent today. PHYSICAL EXAMINATION: Blood pressure 133/55 with a pulse of 80, temperature 98. He is 98% on 50% FiO2. General description is an elderly male lying in bed in no distress. RESPIRATORY SYSTEM: Unlabored breathing with decreased breath sounds at the base. No wheeze. HEART: S1, S2. Regular rate and rhythm. ABDOMEN: Soft. No tenderness. LABS: Hemoglobin is 7.8, white count 10.0, BUN of 38, creatinine 1.10. Sputum has been negative. Blood culture negative. DIAGNOSTIC IMPRESSION AND PLAN: Patient with elevated white count which is more likely multifactorial in this patient with additional concern for possible aspiration pneumonitis that has been adequately treated. The sputum has been negative so far. The patient now has developed significant diarrhea with concern for C difficile, and the patient's white count has responded to the oral vancomycin. That will be continued. Will go ahead and discontinue the Zosyn. Plan of care was discussed in detail with the nurse practitioner for CT Surgery. Continue supportive care. MMODL / JSAEN: [id number] /
--- NOTE | 2019-11-24 16:22 | P.PN ---
Subjective Progress Note Date: 11/24/19 Principal diagnosis: Patient is a [id number] male was recently discharged from the hospital came back in with the chest pain pressure-like sensation lasted for a few hours nonexertional did have elevated troponins. Patient had a triple-vessel disease patient is scheduled to undergo coronary artery bypass grafting on Friday went home started smoking again started having chest pain. Chest x-ray was read as pulmonary edema. It is not elevated patient clinically doesn't have any JVD or crackles or wheezing. 11/09/2019 Patient is status post CABG he was extubated the last night. Patient is presently on norepinephrine, milrinone, IV insulin. Patient still has a [place]- Juni in place most of the management is being done by cardiac thoracic surgery patient was bit confused earlier today doing well now. 11/10/2019 Patient is still confused as per the family his confusion is better patient is a low-grade fever probably because of atelectasis a lot and blood cultures. Patient received Lasix for pulmonary edema, patient's mediastinal chest use with remote patient still has left pleural chest tubes Review of systems: Unable to obtain as patient is tired and sleepy All inpatient medications were reviewed and appropriate changes in these medications as dictated in the interval history and assessment and plan. 11/11/2019 Patient is seen and evaluated and follow-up currently remains in the ICU and is being closely monitored. Since hemoglobin was found to be 6.7 this morning and is currently receiving 1 unit of PRBCs. Potassium is 4.4, creatinine is 1.09, magnesium is 2.3. Patient went into atrial fibrillation with RVR and is being maintained on amiodarone drip and will transition to oral medications. Patient continues to have chest tubes along with indwelling Junior catheter which shows some hematuria as patient pulled it out. Patient has been afebrile with intermittent low-grade temps 99.7F and white count today is 14.1. Patient remains on an insulin drip and will continue at this time. Will continue to follow along closely with cardio thoracic surgery. 11/12/2019 Patient is seen and evaluated and follow-up continues to be closely monitored in the ICU. Patient is currently restless and seems to be having some shortness of breath. Patient is placed on nasal cannula although was mouth breathing and is currently on 5 L of oxygen. Patient was on insulin drip which has been discontinued and patient will be continued on sliding scale as patient now has a diet ordered although isn't eating very much. Patient continues to be confused and not following commands. Patient had a chest x-ray today status post chest tube removal showing no evidence of residual pneumothorax. Patient underwent brain CT yesterday showing patchy periventricular and deep white matter changes, left greater than right that have progressed since 01/19/2019 with demyelinating disease or other infectious inflammatory etiologies are possible, and no acute intracranial hemorrhage or midline shift noted. 11/13/2019 Patient became to Make and found to have metabolic acidosis with respiratory compensation progressively got fatigued event into respiratory failure subsequently intubated patient received the bicarbonate infusion for severe metabolic acidosis and patient had lactic acidosis with the lactic acid going up to 11 which came down to 1.5 patient is also started on pressor support with Levophed on mechanical ventilator with tidal volume of 450 set up respiratory of 24 FiO2 of 50% PEEP of 5 urine output is fairly. Chest x-ray showing mild pulmonary vascular congestion with the pleural effusions bilaterally 11/14/2019 Patient the did not tolerate weaning trial. Patient remains on ventilatory support. Patient is a one dose of vancomycin patient is presently on IV Zosyn for fevers although etiology of fevers is not clear at this time. Patient blood sugars are high receiving 3 units every 4 hours as per sliding scale patient wi ll be started on long-acting insulin 15 units and continue with sliding scale Review of systems: Unable to obtain as patient is tired and sleepy All inpatient medications were reviewed and appropriate changes in these medications as dictated in the interval history and assessment and plan. 11/15/2019 Patient is seen and evaluated and follow-up and currently remains in the ICU on mechanical ventilation and is being closely monitored. Patient continues to have a Dobbhoff for nutrition and remains on long-acting Levemir 15 units at bed along with sliding scale and will continue at this time. Patient is currently maintained on IV vancomycin along with Zosyn and infectious disease has been consulted. Patient is afebrile for 24 hours. White blood count is trending down and is currently 15.3 today. 11/16/2019 Patient is seen and evaluated in follow-up continues to be on a mechanical ve ntilator and intubated with sedation and is being closely monitored in the ICU. Patient continues to have elevated blood sugars and have increased the long- acting Levemir to 20 units and will continue with sliding scale and added 5 units every 4 hours For tighter glycemic control. Patient remains on tube feedings at goal via a Dobbhoff system. Multiple medical consultations following. Patient is maintained on IV vancomycin and cefepime and will continue at this time. White blood count slowly trending down at 15.2 today. Chest x-ray showing some pleural effusions and a chest ultrasound was performed showing bilateral pleural effusions although small in size and were not marked. 11/17/2019 Patient is seen and evaluated in follow-up currently continued on a mechanical ventilator and intubated and continues to be closely monitored in the ICU. Sedation has been on hold and patient eyes are opening Although not following commands. patient underwent head CT showing no evidence of acute hemorrhage with areas of patchy low attenuation left parietal white matter as previously noted and are of indeterminate age and could possibly be on the basis of subacute ischemia with no significant interval change. Degenerative and suspect remote ischemic change also noted and correlate with MRI as clinically warranted. Neurology was consulted and pending at this time. Multiple medical consultations following. Patient is currently maintained on cefepime and vancomycin and will continue at this time. White blood count elevated at 15.0 With hemoglobin of 7.7. Current creatinine is 1.04. Patient remains afebrile. Will continue to monitor closely. 11/18/2019 Patient is seen and evaluated in follow-up today currently continues to be in the ICU being closely monitored. Remains intubated although have been holding propofol and patient appears to be following commands with the left extremity although right upper extremity is flaccid. Neurology evaluated the patient and recommended MRI and this will be done once patient is extubated and more stable. CT of the head findings are probable of a subacute stroke involving multiple patchy areas in the left MCA vascular territory with the possibility of a cardio embolic source. Patient did have transient atrial fibrillation. There is right ICA stenosis of 50-69% on the carotid Doppler. Patient's 2-D echo showed no obvious embolic source. Patient remains on aspirin and Plavix along with statin and will continue at this time. Attempts to use Precedex as patient is off propofol at this time. Multiple medical consultations following. Patient continues on IV antibiotics in the form of cefepime and vancomycin has been discontinued. Infectious disease is following. Today's chest x-ray shows diffuse bilateral pleural parenchymal changes correlate for ards, pulmonary edema, or diffuse pneumonia and patient is maintained on IV Lasix and will continue at this time. White count is 14.7 today, hemoglobin is 7.3. Current creatinine is 1.05 with a BUNs of 33. Ammonia level less than 9. Will continue to monitor closely. Review of systems: Unable to obtain as patient is intubated and sedated 11/19/2019 Patient is seen and evaluated and currently remains in the ICU being closely monitored. Patient was just recently extubated and tolerated well. Patient remains off sedation and continues to be on a small dose of Precedex. Patient also continues with a Dobbhoff tube feedings system and will continue at this ti me. Patient is awake and responding appropriately to simple commands. Right and left upper extremity webbing inspector strength noted. Right webbing inspector strength 3-5, left 4- 5. Patient is not talking as of yet although did mumble when asked a question and knodded head yes appropriately. Also medical consultations following. Patient is maintained on IV antibiotics and will continue at this time. White blood count slowly trending down and is currently 13.3. She remains on IV Lasix and current creatinine is 1.15 with a BUNs of 38. Sodium is 140. Patient is maintained on long-acting along with every 4 hours coverage and sliding scale and will continue at this time. Liver function slowly trending down. Patient is currently maintained on 4 L via nasal cannula. 11/20/19, patient is seen and evaluated in ICU; extubated yesterday. Patient is awake, follows very simple instructions, remains on 8 L high flow nasal cannula, O2 saturations 94%. Patient is hemodynamically stable not requiring any inotropes or pressors. Patient had an episode of A. fib with RVR yesterday and he received 2 boluses of amiodarone. Presently in normal sinus rhythm. Patient follows again simple instructions, but remains confused, oriented 1 to person. Continues to have Dobbhoff tube in place, and receiving enteral feeding. Remains on antibiotics in the form of Zosyn for presumptive aspiration. Laboratory review shows a white blood count of 20.5, hemoglobin 7.4; chemical profile significant for mild elevation in BUN of 36 Patient will continue to be monitored in ICU with empiric IV antibiotics; plan to wean off O2 as able; patient remains on aspirin, Plavix and Cardizem; diuretic therapy was continued Patient will remain on Dobbhoff tube feeding with plan to increase ambulation as possible 11/21/2019 Patient is seen and evaluated in ICU; patient reintubated yesterday after developing acute respiratory distress after developing atrial fibrillation with RVR which was treated with multiple medications including Cardizem drip and eventually metoprolol was increased to 50 mg 3 times a day; patient became bradycardic and developed pulmonary edema; patient remains sedated with propofol; CT angiogram of the chest was done which was negative for PE; chest x- ray shows improved pulmonary edema Patient remains on aspirin, Plavix and diuretics; continue with empiric antibiotic therapy; remains on nutritional support with Glucerna 11/22/2019 Patient is seen and evaluated in ICU; remains intubated and mechanically ventilated; patient had repeat chest x-ray this morning showing diffuse bilateral infiltrates and pleural effusion along with pneumothorax; patient remains on IV Lasix and is diuresing well; remains on tube feeding in form of Glucerna at rate of 75 mL per hour; blood pressure is stable without any pressor support; patient remains on IV antibiotics in the form of Zosyn and vancomycin; cultures have been negative so far 11/23/2019 Patient is seen and evaluated in follow up and continues to be in the ICU being closely monitored. Patient has been intubated and is currently sedated as patient will be undergoing bilateral chest tube placement for bilateral pleural effusions. Patient is maintained on IV lasix and will continue. Patient continues to be monitored closely while on IV antibiotics and will continue at this time. Will repeat am labs. 11/24/2019 Patient is seen and evaluated and follow-up currently remaining in the ICU slightly sedated on Precedex. Patient to continue with trials on the CPAP. Patient was able to follow simple commands with the upper extremities. Patient underwent bilateral chest tube placement and is being closely monitored. Hemoglobin is 7.8 today. Minimal output noted on the chest tubes today. Patient's respiratory status slightly improved status post chest tube placement. Patient is currently on Precedex for anxiety. Patient had an episode of a mucous plug last night and was suctioned by respiratory and resolved. Patient continues on tube feedings with the possibility and discussion of PEG and trach tube placement in the near future. Objective - Vital Signs Vital signs: Vital Signs Temp 98.8 F 11/24/19 12:00 Pulse 80 11/24/19 15:00 Resp 22 11/24/19 15:00 BP 109/64 11/24/19 05:00 Pulse Ox 98 11/24/19 15:00 Intake & Output 11/23/19 11/24/19 11/24/19 18:59 06:59 18:59 Intake Total 2847.631 8989.521 670.796 Output Total 2665 2505 1590 Balance -1299.351 -1191.479 -919.204 Weight 84.6 kg Intake: IV 369 293 217 .9NS @ 10 ml/hr 130 60 90 Normal Saline Pressure 39 33 27 Bag Piperacillin-Tazobactam 3 200 200 100 .375 gm In Sodium Chloride 0.9% 100 ml @ 25 mls/hr IVPB Q8HR [facility] Rx# :[id number] Intake, IV Titration 106.649 90.521 43.796 Amount Dexmedetomidine/0.9% NaCl 90.521 43.796 (Pmx) 400 mcg In Empty Bag 1 bag @ 0.3 MCG/KG/HR 6.675 mls/hr IV .[id number] [facility] Rx#:[id number] Dexmedetomidine/0.9% NaCl 99.44 (Pmx) 400 mcg In Empty Bag 1 bag @ Titrate IV . Q0M [facility] Rx#:[id number] propofoL 1,000 mg In 7.209 Empty Bag 1 bag @ Titrate IV .Q0M [facility] Rx#: [id number] Tube Feeding 800 840 350 Other 90 90 60 Output: Chest Tube Drainage 950 530 120 left lateral chest tube 470 360 50 right lateral chest tube 480 170 70 Urine 1715 1975 1470 Other: Voiding Method Indwelling Catheter Indwelling Catheter Indwelling Catheter ABP, PAP, CO, CI - Last Documented Arterial Blood Pressure 133/55 Pulmonary Artery Pressure 30/17 Cardiac Output 4.5 Cardiac Index 2.3 - Exam Head: Atraumatic, normocephalic, currently intubated on CPAP and sedated HEENT:Neck is supple.No neck masses. No thyromegaly. No JVD. Moist mucous membranes, PERRLA, EOMI, no icterus. Chest: Symmetrical chest expansion, crackles at the bases no rhonchi and no wheezes. bilateral chest tubes noted on the right and left Cardiac Exam: Normal S1 and S2, no S3 gallop, no murmur. Abdomen: Soft, nontender, no megaly, no rebound, no guarding, normal bowel sounds. Extremities: No clubbing, no edema, no cyanosis. Neurological Exam: intubated and sedated - Labs CBC & Chem 7: 11/24/19 04:55 11/24/19 04:55 Labs: Abnormal Lab Results - Last 24 Hours (Table) 11/23/19 11/23/19 11/23/19 Range/Units 16:50 19:58 23:56 RBC (4.30-5.90) m/uL Hgb (13.0-17.5) gm/dL Hct (39.0-53.0) % RDW (11.5-15.5) % Lymphocytes # (1.0-4.8) k/uL ABG pH (7.35-7.45) ABG pO2 (83-108) mmHg ABG HCO3 (21-25) mmol/L ABG Total CO2 (19-24) mmol/L Chloride (98-107) mmol/L BUN (9-20) mg/dL Glucose (74-99) mg/dL POC Glucose (mg/dL) 127 H 159 H 170 H (75-99) mg/dL Calcium (8.4-10.2) mg/dL ALT (4-49) U/L 11/24/19 11/24/19 11/24/19 Range/Units 04:55 04:55 05:40 RBC 2.52 L (4.30-5.90) m/uL Hgb 7.8 L (13.0-17.5) gm/dL Hct 25.0 L (39.0-53.0) % RDW 15.6 H (11.5-15.5) % Lymphocytes # 0.8 L (1.0-4.8) k/uL ABG pH 7.50 H (7.35-7.45) ABG pO2 66 L (83-108) mmHg ABG HCO3 28 H (21-25) mmol/L ABG Total CO2 29 H (19-24) mmol/L Chloride 108 H (98-107) mmol/L BUN 38 H (9-20) mg/dL Glucose 62 L (74-99) mg/dL POC Glucose (mg/dL) (75-99) mg/dL Calcium 8.3 L (8.4-10.2) mg/dL ALT 178 H (4-49) U/L 11/24/19 11/24/19 Range/Units 08:02 11:50 RBC (4.30-5.90) m/uL Hgb (13.0-17.5) gm/dL Hct (39.0-53.0) % RDW (11.5-15.5) % Lymphocytes # (1.0-4.8) k/uL ABG pH (7.35-7.45) ABG pO2 (83-108) mmHg ABG HCO3 (21-25) mmol/L ABG Total CO2 (19-24) mmol/L Chloride (98-107) mmol/L BUN (9-20) mg/dL Glucose (74-99) mg/dL POC Glucose (mg/dL) 118 H 125 H (75-99) mg/dL Calcium (8.4-10.2) mg/dL ALT (4-49) U/L Assessment and Plan Assessment: -Coronary artery disease and non-ST elevation myocardial infarction status post CABG 5 -bilateral pleural effusions status post bilateral chest tube placement of the left and right -Altered mental status most likely secondary to metabolic encephalopathy suspected, CVA, please refer to neurology evaluation. -New onset atrial fibrillation and RVR; remains rate controlled on Cardizem. -Type 2 diabetes; continue with Levemir 20 units subcu daily at bedtime; monitor Accu-Cheks every before meals and at bedtime with insulin sliding scale. -Peripheral vessel occlusive disease with prior peripheral stent placement. -Moderate severe COPD FEV1 of 60%; not in exacerbation; continue with bronchodilator nebulizer treatment and home inhaler therapy. -Acute kidney injury and acute shock liver secondary to hypotension, improving -DVT prophylaxis; subcu heparin -CODE STATUS; full code Plan: Patient to continue with current medications, management, and symptomatic treat ment. Patient continues to be intubated and recently underwent bilateral chest tube placement for bilateral pleural effusions. Patient continues on IV lasix along with IV antibiotics at this time. Multiple medical consultations following. Will repeat am labs, and continue to monitor blood sugars closely. Further recommendations to follow. Prognosis is guarded.
[2019-11-24 16:36] LABS: Glucose,Whole Blood 106 mg/dL (75-99)
[2019-11-24 20:35] LABS: Glucose,Whole Blood 120 mg/dL (75-99)
[2019-11-24] MEDS: INSULIN DETEMIR (LEVEMIR) 100 UNIT/ML SYR SQ SCH (20:36)
[2019-11-25] MEDS: HEPARIN SODIUM,PORCINE 5,000 UNIT/ML 1 ML VIAL SQ SCH ×3 (01:27→16:20)
[2019-11-25] MEDS: INSULIN ASPART (NovoLOG) 100 UNIT/ML VIAL SQ SCH ×12 (01:27→20:19)
[2019-11-25] MEDS: VANCOMYCIN ORAL SOLUTION 250 MG/5 ML BOTTLE PO SCH ×4 (01:28→18:55)
[2019-11-25 01:32] LABS: Glucose,Whole Blood 90 mg/dL (75-99)
[2019-11-25 04:58] LABS: Glucose,Whole Blood 75 mg/dL (75-99)
[2019-11-25 05:44] LABS: ABG PCO2 38 mmHg (35-45); ABG PH 7.47 (7.35-7.45); ABG PO2 134 mmHg (83-108); Allen Test Performed? no
[2019-11-25 05:45] LABS: ABG Base Excess 3.9 mmol/L; ABG HCO3 28 mmol/L (21-25)
[2019-11-25 06:28] LABS: ALT 144 U/L (4-49); AST 32 U/L (17-59); African American GFR (CKD) >90 (>60 ml/min/1.73 sqM); Anion Gap 4 mmol/L; Blood Urea Nitrogen 33 mg/dL (9-20); Calcium 8.3 mg/dL (8.4-10.2); Carbon Dioxide 28 mmol/L (22-30); Chloride 110 mmol/L (98-107); Glucose 97 mg/dL (74-99); Magnesium 2.1 mg/dL (1.6-2.3); Non-African American GFR(CKD) >90 (>60 ml/min/1.73 sqM); Potassium 3.8 mmol/L (3.5-5.1); Sodium 142 mmol/L (137-145)
[2019-11-25 06:42] LABS: Basophils # (A) 0.1 k/uL (0-0.2); Basophils % (A) 1 %; Eosinophils # (A) 1.1 k/uL (0-0.7); Eosinophils % (A) 13 %; HCT 25.3 % (39.0-53.0); Hypochromasia Marked; Lymphocytes # (A) 1.1 k/uL (1.0-4.8); Lymphocytes % (A) 13 %; MCH 31.7 pg (25.0-35.0); MCHC 31.6 g/dL (31.0-37.0); MCV 100.3 fL (80.0-100.0); Macrocytosis Slight; Mean Platelet Volume 8.7; Monocytes # (A) 0.6 k/uL (0-1.0); Monocytes % (A) 7 %; Neutrophils # (A) 5.3 k/uL (1.3-7.7); Neutrophils % (A) 62 %; Platelet Count 347 k/uL (150-450); RBC 2.52 m/uL (4.30-5.90); RDW 15.3 % (11.5-15.5); WBC 8.6 k/uL (3.8-10.6)
--- NOTE | 2019-11-25 07:24 | XR ---
EXAMINATION TYPE: XR chest 1V portable DATE OF EXAM: 11/25/2019 COMPARISON: Prior chest x-ray 11/24/2019 HISTORY: Intubated TECHNIQUE: Single frontal view of the chest is obtained. FINDINGS: Findings are similar to prior exam. Endotracheal tube, Dobbhoff tube, bilateral chest tube s, post median sternotomy change with left atrial appendage clipping placement are all again noted. T here is no sizable pneumothorax or pleural effusion. Heart remains enlarged. There is improvement in aeration at the lung bases. IMPRESSION: Improved aeration. Doppler tube is overlying the stomach.
[2019-11-25] MEDS ORDERED: ceFAZolin 1,000 MG in SODIUM CHLORIDE 0.9% IRRIGATIO 250 ML IRRIGATION ONE (08:38)
[2019-11-25] MEDS ORDERED: SODIUM CHLORIDE 0.9% 1,000 ML IV SCH (08:45)
[2019-11-25] MEDS: IPRATROPIUM-ALBUTEROL 3 ML NEB INHALATION SCH ×4 (09:00→19:41)
--- NOTE | 2019-11-25 09:25 | P.PN ---
Subjective Progress Note Date: 11/25/19 Principal diagnosis: Symptomatic multivessel coronary artery disease, unstable angina, status post subendocardial myocardial infarction. 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 Endoscopic vein harvest of the left greater saphenous vein from the ankle to the groin. Endoscopic harvest of the left radial artery. Epi-aortic ultrasound and ligation of left atrial appendage with 40 mm AtriCure clip Postoperative acute blood loss anemia, expected outcome given cardiopulmonary bypass and hemodilution Postoperative encephalopathy, unexpected but potential outcome given cardiopulmonary bypass and intraoperative cardiac arrest Postoperative new onset paroxysmal Afib with RVR, unexpected Postoperative acute hypoxemic respiratory failure requiring reintubation, secondary to metabolic acidosis and hypotension. Postoperative stage II pressure ulcer on coccyx, unexpected The patient was seen and examined in the intensive care unit this morning. He remains intubated but has been on CPAP for 24 hours and tolerating well. He shakes his head no when asked to be sitting any pain. He is alert and awake, he moves all extremities and follows commands. Remains tube fed through Dobbhoff, he has left and right pleural chest tubes present, Newman catheter present with return of hematuria, remains on oral vancomycin per infectious disease. Currently atrially paced at 80 bpm, underlying rhythm sinus bradycardia in the 40s. Objective - Vital Signs Vital signs: Vital Signs Temp 98.6 F 11/25/19 04:00 Pulse 80 11/25/19 09:00 Resp 15 11/25/19 07:00 BP 109/64 11/25/19 06:00 Pulse Ox 95 11/25/19 07:00 Intake & Output 11/24/19 11/25/19 11/25/19 18:59 06:59 18:59 Intake Total 1048.631 436 Output Total 1925 1500 Balance -736.369 1069 Weight 85.1 kg Intake: IV 269 156 .9NS @ 10 ml/hr 130 120 Normal Saline Pressure 39 36 Bag Piperacillin-Tazobactam 3 100 .375 gm In Sodium Chloride 0.9% 100 ml @ 25 mls/hr IVPB Q8HR [facility] Rx# :[id number] Intake, IV Titration 89.631 Amount Dexmedetomidine/0.9% NaCl 89.631 (Pmx) 400 mcg In Empty Bag 1 bag @ 0.3 MCG/KG/HR 6.675 mls/hr IV .[id number] [facility] Rx#:[id number] Tube Feeding 630 280 Other 60 Output: Chest Tube Drainage 145 70 left lateral chest tube 70 10 right lateral chest tube 75 60 Urine 1780 1430 Other: Voiding Method Indwelling Catheter Indwelling Catheter ABP, PAP, CO, CI - Last Documented Arterial Blood Pressure 124/51 Pulmonary Artery Pressure 30/17 Cardiac Output 4.5 Cardiac Index 2.3 - Constitutional General appearance: Present: cooperative, no acute distress - Respiratory Details: Lungs sounds diminished bilaterally. Respirations even, nonlabored on mechanical ventilator. Current ventilator settings CPAP mode, pressure support 10, PEEP 5, FiO2 40%. ABGs this morning 7.47/38/134/28/99% on those vent settings. Left pleural chest tube connected to continuous wall suction, 10 mL serous drainage overnight, 150 mL the last 24 hours, no air leak present. Right pleural chest tube connected to continuous wall suction, 60 mL serosanguineous drainage overnight, 120 mL in the last 24 hours, no air leak present. - Cardiovascular Details: S1, S2 present. Regular rate and rhythm, atrial paced on telemetry with rate 80 beats per minute, underlying rhythm sinus bradycardia in the 40s. A/V epicardial pacemaker wires present, connected to generator, AAI mode with rate 80 bpm. Sternum stable. Palpable peripheral pulses bilaterally, trace generalized edema still present. Heart hugger, antiembolism stockings, SCDs present. - Gastrointestinal Gastrointestinal Comment(s): Abdomen soft, nontender, nondistended. Active bowel sounds present 4 quadrants. Tolerating vital AF tube feedings and 70 mL per hour, currently on hold for pacemaker placement today. Fecal management system in place with liquid brown stool. - Genitourinary Genitourinary Comment(s): Newman present draining bloody urine. Output 50-150 mL per hour overnight - Integumentary Integumentary Comment(s): Skin is warm and dry with evidence of good perfusion. Anterior chest incision well approximated and covered with dry intact dressing. Left lower extremity EVH site well approximated without drainage or redness. Left radial artery harvest site dry and intact without redness or drainage, good cap refill. Stage II pressure ulcer present to coccyx area, Optifoam dressing dry and intact. - Neurologic Neurologic: Present: CNII-XII intact - Musculoskeletal Musculoskeletal: Present: strength equal bilaterally - Psychiatric Psychiatric: Present: A&O x's 3, appropriate affect - Allied health notes Allied health notes reviewed: nursing - Labs CBC & Chem 7: 11/25/19 06:00 11/25/19 06:00 Labs: Abnormal Lab Results - Last 24 Hours (Table) 11/24/19 11/24/19 11/24/19 Range/Units 11:50 16:34 20:34 RBC (4.30-5.90) m/uL Hgb (13.0-17.5) gm/dL Hct (39.0-53.0) % MCV (80.0-100.0) fL Eosinophils # (0-0.7) k/uL ABG pH (7.35-7.45) ABG pO2 (83-108) mmHg ABG HCO3 (21-25) mmol/L ABG O2 Saturation (94-97) % Chloride (98-107) mmol/L BUN (9-20) mg/dL POC Glucose (mg/dL) 125 H 106 H 120 H (75-99) mg/dL Calcium (8.4-10.2) mg/dL ALT (4-49) U/L 11/25/19 11/25/19 11/25/19 Range/Units 05:25 06:00 06:00 RBC 2.52 L (4.30-5.90) m/uL Hgb 8.0 L (13.0-17.5) gm/dL Hct 25.3 L (39.0-53.0) % MCV 100.3 H (80.0-100.0) fL Eosinophils # 1.1 H (0-0.7) k/uL ABG pH 7.47 H (7.35-7.45) ABG pO2 134 H (83-108) mmHg ABG HCO3 28 H (21-25) mmol/L ABG O2 Saturation 99.0 H (94-97) % Chloride 110 H (98-107) mmol/L BUN 33 H (9-20) mg/dL POC Glucose (mg/dL) (75-99) mg/dL Calcium 8.3 L (8.4-10.2) mg/dL ALT 144 H (4-49) U/L - Imaging and Cardiology Chest x-ray: report reviewed, image reviewed Assessment and Plan Assessment: 1. Symptomatic multivessel coronary artery disease, recent non-STEMI, status post 5 vessel CABG 2. Leukocytosis, maybe multifactoral, positive UTI. Blood, sputum, urine cultures negative to date although drawn after antibiotics started. 3. Previous stent placement to the proximal circumflex and ostial OM1 4. History of hypertension 5. History of hyperlipidemia 6. Chronic ongoing tobacco dependence 7. Mild COPD, preoperative FEV1 60% of predicted value 8. Right internal carotid artery stenosis 50-69%. 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 9. 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 Poorly controlled diabetes mellitus type 2 with hyperglycemia, admission hemoglobin A1c 9.1% 11. History of bladder cancer status post radiation, chemotherapy treatment and bladder surgery 12. Occasional marijuana use 13. Medication noncompliance 14. Family history of early onset coronary artery disease 15. Postoperative acute blood loss anemia, expected 16. Postoperative encephalopathy, unexpected 17. Mild ISAAC 18. Afib with RVR, status post left atrial appendage ligation, currently Sinus Rhythm to sinus bradycardia 19. Hematuria, resolved, likely from patient pulling at newman catheter 20. Postoperative acute hypoxic respiratory failure requiring reintubation, secondary to metabolic acidosis and hypotension 21. Elevated transaminase levels, shock liver, secondary to hypotension, trending down 22. New stage II pressure ulcer, coccyx 23. Postoperative bilateral pleural effusions, status post bilateral pleural chest tube placement Plan: 1. Continue aspirin, Plavix, statin, beta gaurav, Cozaar. Will increase beta gaurav therapy as tolerated. Permanent pacemaker placement today by Dr. Rubio 2. Continue amiodorone for atrial fibrillation prophylaxis. No anticoagulation until all lines and tubes have been removed, especially epicardial pacemaker wires 3. Continue to hold Cardizem. Will reassess and add as tolerated. 4. Keep Newman catheter in place for accurate I&O. Newman catheter was changed on 11/14/2019. 5. Continue Optifoam dressing pressure ulcer per Dr. Diaz. Turn minimum every 2 hours. 6. Mechanical ventilator management per pulmonary critical care medicine. Likely will extubate today after permanent pacemaker placement 7. Will continue to monitor bilateral pleural chest tube output 8. Will monitor daily labs and chest x-rays. Elective replacement per protocol. 9. Continue Tylenol for pain management, hold narcotics and toradol. 10. GI/DVT prophylaxis. 11. Insulin management per primary care service. 12. Continue 40 mg Lasix q12 13. Keep Dobbhoff tube in place for tube feeding. Currently nothing by mouth for permanent pacemaker placement 14. Continue to avoid nephrotoxic agents. 15. Keep atrial and ventricular epicardial pacemaker wires in place until after placement of permanent pacemaker 16. Reorient as necessary. Continue to assess mental status 17. Continue antibiotics per infectious disease 18. More recommendations to follow based on patient's clinical course. Time with Patient: Greater than 30
[2019-11-25] MEDS ORDERED: IV FLUID CONTINUATION 500 ML IV ONE (10:28)
[2019-11-25] MEDS ORDERED: IOPAMIDOL-370 50ML BTL INJ ONE (10:45)
--- NOTE | 2019-11-25 10:54 | P.PN ---
Subjective Progress Note Date: 11/25/19 Principal diagnosis: Coronary artery disease with unstable angina, and non-ST elevated NE, status post 5 vessel bypass grafting This is a 64-year-old male patient with coronary artery disease, noncompliant to medication. The patient came in with subendocardial infarction and cardiac catheterization showed diffuse coronary artery disease with critical stenosis. The patient underwent coronary artery bypass today. The patient underwent bypass 5 with GR to LAD, radial artery graft to acute marginal, saphenous finger after 2 posterior lateral and sick ration saphenous vein to first and second diagonal performed on cardiac pulmonary bypass with beating heart. Left atrial appendage was also added. The patient currently is in the intensive care unit. I centimeters in regards to the ICU. He was initially on a SIMV mode of ventilation at the rate of 12 with a tidal volume of 500 and FiO2 of 100% with a PEEP of 5 and a pressure support of 5. The blood gas showed a pH of 7.318 with a pCO2 of 49 and pO2 of 226. The chest x-ray postop showed volume overload with pulmonary vascular congestion and interstitial edema. The lines and tubes are all in good location. Based on all this, I increased the respiratory rate of 24. I do not FiO2 down to 60%. Current cardiac output is at 2.6 with an index of 5. The patient has 2 mediastinal 1 right pleural and 1 left pleural chest tube. Ultrasound of the sternal chest tubes has been around 150 mL since he arrived from the operating room. No evidence of any air leak. The patient is currently on a Cardizem drip and milrinone drip and the patient is on insulin drip for blood sugar control.he is well sedated. Is quite symptoms with the mechanical ventilator. Postoperative hemoglobin is at 8.2. Platelet count is down to 78. On today's evaluation of 11/09/2019, I'm seeing the patient for a follow-up. The patient was operated on yesterday and the patient underwent a five-vessel bypass surgery including a GR and the radial artery harvest. The patient was extubated within 6 hours and currently the patient is on oxygen by nasal cannula at 5 L. He is pleasantly confused this morning. He is able to sit up on a recliner. Hemodynamically, he did have some early of hypotension earlier this morning and for that reason the patient was given 750 mL of colloids and following that he was started on low-dose levo fed at 0.03 g per KG per minute. The patient remains on Primacor running at 0.125 g and the patient is also on Cardizem at 5 mg an hour. Insulin drip is running at 2.5 units an hour. Hemod ynamically, the patient's cardiac output is at 4.2 with an index of 2.2. The pulmonary artery pressure 28/12. CVP is at 11. Cardiac output is at 4.2. He is in his normal sinus rhythm. He has a backup VVI at the rate of 50. His chest x-rays showing small bilateral apical pneumothoraces. All of the chest tubes are in good location. The right and left pleural chest tube connected and they have drained approximately 130 mL over the past 8 hours. He is tender tubes are also connected and it has drained approximately 140 mL over the past 8 hours. The patient otherwise has no specific complaints. Sternum stable clean and intact. He is producing urine output in the order of 20-30 mL an hour. No other significant events overnight. Hemoglobin stable at 7.9. The platelet count improved to 102. On 11/10/2019, the patient is postop day #2. The patient is confused. He is nonverbal. He is not answering questions and is not following any commands. Upon watching him, I felt that the left side of the body slightly cachectic compared to the right. Nevertheless, the same as the patient was not cheered by the nursing staff been observing this patient longer to me. He has no prefer ential gaze toseizure activity. No reported shortness of breath or respiratory distress at this point in time. Mediastinal chest tubes and the pleural chest tubes are all in place. The patient has an AV epicardial pacer wire grounded to generator. As of yesterday, the patient was taken off the pressors. The patient is currently off the levo fed and he is off the Primacor. The patient also had the ALYX drains removed from the left lower extremity and arm. No other significant issues for now. No cardiac arrhythmias. No nausea. No vomiting. No emesis. He is resting comfortably in bed. The patient's hemoglobin is at 7.0. Was a causative 4.7. Diminished pulmonary vascular congestion and infiltration of the right lung base. There is resolution of the previously described bilateral pneumothoraces. On today's evaluation of 11/11/2019, the patient remains confused. I was told that he was able to say some few words. I was also told by the nursing staff that the patient was witnessed EXTREMITIES WITHOUT ANY LIMITATION IN PATIENT HAVING ANY FOCAL NEUROLOGICAL DEFICIT. NOTE THAT THE PATIENT EARLIER THIS MORNING WITH ATRIAL FIBRILLATION WITH RAPID VENTRICULAR RESPONSE. HIS HEART RATE WENT UP TO 180 beats per minute without any significant hypotension. That point, the patient was given amiodarone boluses and the patient received a total of 3 boluses prior to my arrival. He was also given 5 mg of IV Lopressor. Her, bilateral, the patient was still in atrial fibrillation. He was trying to hurt at times he thought it was going down. His baseline rhythm was atrial fibr illation and heart rate was in the range of 100-120. The patient denied having any chest pain. Sternum was stable treatment intact. No reported fever or chills. The mediastinal chest 11 already been removed yesterday. The right and the left pleural chest tubes are still in place and output is being noted. Chest x-ray from this morning showed adequate expansion of both lungs without evidence of any pneumothorax. No evidence of any pulmonary edema. The patient was being given Lasix 20 mg IV push every 12 hours. Hemoglobin from this morning was down to 6.7 and the patient was ordered to get a unit of packed RBC. Currently is postoperative #3 post 5 vessel coronary artery bypass surgery. On 11/12/2019 patient seen in follow-up in the intensive care unit, he is very restless on today's exam, although nursing reports some improvement in his neurological status, and apparently patient is answering questions appropriately, and he knows he is in the hospital, and he is given verbal r esponses to questions. he is awake and alert, he is restless, but appears to be in no acute distress, he is moving his legs and arms bilaterally, squirming in bed. Does not appear to be in any respiratory distress. He is currently on 5 L of oxygen, with pulse ox of 100%, hemodynamically patient is stable, no fever or chills. Lactate of Ringer's infusing at a rate of 40 ML per hour. Today's est x-ray has been reviewed showing increasing airspace opacity of the right upper lobe, similar prominent interstitial markings, no pneumothorax, no pleural effusions. Left pleural chest tube is in place, with a total output of 340 ML in the last 24 hours, right pleural chest tube put out 380 mL of serosanguineous thin output in the last 24 hours, media still chest tubes have been discontinued. Patient has produced 1.3 L and urine output in the last 24 hours. Junior catheter remains in place. Today's lab work has been reviewed, showing white blood cell count of 17.6, hemoglobin is 9.3, sodium of 138, potassium 3.8, chloride is 108, CO2 is 20, B1 is 39, creatinine is 1.17. She is in sinus arrhythmia with frequent PACs on the monitor, amiodarone drip has been switched to oral amiodarone 400 mg twice daily, patient is on oral Cardizem 30 mg every 6 hours, and oral metoprolol 50 mg twice daily. Blood cultures have shown no growth at the 24-hour elly. Patient has been afebrile. sports team manager is at the bedside in view of confusion and agitation, Junior catheter still has hematuria, which is dark in color, yesterday's brain CT showed patchy. Ventricular and deep white matter changes, left greater than right which have progressed from 01/09/2019, and areas of subacute ischemia are not excluded, MRI can further evaluate, no acute intracranial hemorrhage or midline shift. On 11/17/2019 patient seen in follow-up in the intensive care unit, she is sedated, intubated, on mechanical ventilator, current vent settings are assist- control with a rate of 16, tidal and was 450, FiO2 is 40%, and PEEP of 5. This morning his blood gases reveal pO2 of 92, pCO2 34, pH is 7.47. Current IV drips include 0.9 normal saline at a rate of 5 ML per hour, and improving and is at 60 mics per kilo per minute, tube feedings are with vital high-protein at a rate of 54, with a goal of 54 with standard water flushes with 30 mL of water every 4 hours. Patient was given daily traction of sedation yesterday, he awoke, and reportedly follow commands, but quickly became very tachypneic and hypertensive and had to be placed back on mechanical ventilator. His chest x-ray shows stable findings, persistent central vascular congestion and bibasilar opacities. Small to moderate-sized bilateral pleural effusions, appear to be stable. Patient remains on IV Lasix at 40 mg every 12 hours, and he is very slightly negative, only 6 mL, however he did produced over 3 L in urine output in the last 24 hours. He is off the vasopressor support, his weight is stable, he does have some generalized edema involving his upper and lower extremities. Remains on empiric antibiotics in the form of cefepime and vancomycin. He is afebrile, his blood urine and sputum cultures have shown no growth thus far. Today's labs have been reviewed. His white blood cell is stable at 15, hemoglobin is 7.7, sodium is 136, the rest of electrolytes were within normal limits, B1 is 33, and creatinine is 1.04, his liver enzymes are coming down, AST is down to 130, ALT is 692, alk phos is fairly stable at 195, his pro-calcitonin level was elevated and 0.99, suggesting presence of bacterial infection. Patient has been afebrile, abdomen is soft, nontender, patient is tolerating tube feedings. His hematuria has cleared up. On 11/18/2019 patient seen in follow-up in the intensive care unit. Patient is still intubated, his sedation has been on hold since 7:00 this morning, patient is awake, he is following basic commands, squeezing with his left hand, however his right hand is flaccid, and patient is not able to squeeze with the right hand. His current vent settings are assist-control with a rate of 16, tidal volume is 450, FiO2 is 40%, and PEEP of 5. This is blood gases showed pO2 106, pCO2 35, and pH of 7.49. Currently on no drips other than 0.9 normal saline at a rate of KVO. Patient has been tolerating tube feedings. Yesterday we repeated his CT of the brain which showed no evidence of acute hemorrhage, areas of patchy low attenuation in the left parietal white matter previously noted on previous brain scan this could be on the basis of subacute ischemia. MRI of the brain was recommended, neurology consultation was requested and patient is suspected to have probable subacute stroke involving multiple patchy areas in the left MCA vascular territory consideration of cardioembolic source. Patient did have transient atrial fibrillation. Follow-up MRI and MRA of the brain will be done once the patient is extubated and is able to travel down to the MRI department. Today's chest x-ray shows diffuse bilateral pleural parenchymal changes, no pneumothorax. Consider pulmonary edema, or underlying pneumonia. So far blood and urine and sputum cultures remain negative. Patient is afebrile, hemodynamically he stable, empiric antibiotic coverage is with Zosyn, vancomycin has been discontinued, ID service is following. Patient is on IV Lasix at 40 mg every 12 hours. He has produced 2.7 L and urine output over last 24 hours, he is in -280 mL fluid balance. He seems to get slightly agitated at times, becomes hypertensive, today she is following commands, we will try to keep him off sedation, to fully assess his mentation and neurological status, we will repeat LFTs, and ammonia level. On 11/22/2019 patient seen in follow-up in the intensive care unit. To recap patient was admitted to the hospital on 11/07/2019, and he had his 5 vessel coronary artery bypass grafting surgery and 11/08/2019 and patient was extubated on postoperative day 0 on 11/08/2019. In the postoperative period patient developed altered mental status worsening respiratory failure, symptomatic b radycardia and had to be emergently reintubated on 11/12/2019 and weaned and extubated on 11/19/2019. Patient is suspected to have sustained a subacute stroke involving multiple patchy areas in the left MCA distribution. He has not been able to travel to the MRI department for his follow-up MRI. Patient was weaned from the mechanical ventilator and extubated on 11/19/2019 last week however developed worsening hypoxia, pulmonary edema and had to be reintubated on 11/20/2019. Today she seen in the intensive care unit, sedated on 30 mics per kilo per minute of propofol infusion, and 0.9 normal seen at a rate of 10 ML per hour, he is intubated current vent settings are assist-control with a rate of 16, tidal line was 450, FiO2 is 50% and PEEP of 5, this was blood gases show pO2 of 123, pCO2 38 and pH of 7.51. His chest x-ray shows diffuse bilateral infiltrates and pleural effusion, sizable pneumothorax, interstitial pattern was noted. Patient remains on Lasix at 40 mg every 12 hours, diuresing, and he has made at 7.4 L in urine output in last 24 hours, and he is in -1.5 L net fluid balance over last 24 hours. He is receiving tube feedings with Glucerna 1.5 at a rate of 75 with a goal of 75 ML per hour. Afebrile and hemodynamically stable in the last 24 hours, not requiring any vasopressor support, today's labs have been reviewed showing limited cell count within normal limits at 9.9, hemoglobin is 7.0, electrolytes are within normal limits, BUN of 38, creatinine is 1.17, liver enzymes have steadily been improving, and AST is 93, ALT is 286, alkaline phosphatase was 199, his last ammonia level was back on the and was normal at less than 9. Blood sputum and urine cultures have shown no growth so far. Empiric and pneumatic coverage is with Zosyn and vancomycin On 11/23/2019 patient seen in follow-up in the intensive care unit, he opens eyes to verbal stimulation, he is following simple commands, he squeezing with his left hand, his right hand is quite weak, and almost flaccid. He is nodding his head appropriately to verbal questioning. Does not appear to be in any distress, yesterday we stopped his propofol infusion and put the patient on Precedex infusion which is currently infusing at a rate of 0.3 mics per kilo per hour. 0.9 normal saline at a rate of 20 ML, and he is tolerating his tube feedings of vital 1.2 at a rate of 70 with a goal of 70 with standard water flushes. His current vent settings are assist control with a rate of 16, tidal line is 450, FiO2 40% and PEEP of 5. Sometime in the last 24 hours patient has converted to sinus bradycardia, currently remains in sinus bradycardia with a rate of 54. Patient is currently being paced at AAI mode at a rate of 80 BPM. Hemodynamic patient stable, not on any pressors. Chest x-ray has been reviewed showing diffuse bilateral infiltrates and pleural effusions bilaterally, no sizable pneumothorax. Yesterday's ultrasound the chest showed a 4.8 cm pocket on the right and 3.2 cm pocket on the left. he remains on IV Lasix of 40 mg every 12 hours, and he is slightly positive net fluid balance, +111 mL over last 24 hours. He did however produced 3.2 L in urine output over the last 24 hours. He is on empiric antibiotics with Zosyn and oral vancomycin for possibility of C. diff, all his culture data has been negative thus far. Did have a low-grade fever this morning with a temp of 99.7F. Today's labs have been reviewed showing white blood cell count of 8.8, hemoglobin of 8.3, platelet count is 388, electrolytes are within normal limits, BUN is 39 creatinine is 1.21. His blood gas has been reviewed showing pO2 of 82, pCO2 of 36 and pH of 7.52. Dobbhoff tube is in place through which the patient is receiving tube feedings. lung sounds are clear, diminished at the bases, abdomen is soft, nontender. On 11/24/2019 patient seen in follow-up in intensive care unit, patient remains intubated, sedated on mechanical ventilator current settings are assist-control with a rate of 16, tidal line is 450, FiO2 is 40% and PEEP of 5. This morning blood gas was reviewed showing pO2 of 66, pCO2 36, and pH is 7.5. Patient is currently on Precedex at 0.2 mics per kilo per hour, this was cut back from this morning from 0.5 mics per kilo per hour, 0.9 normal saline at a rate of 10, no vasoactive drips. Patient is on Zosyn for empiric antibiotic coverage, all culture data including blood culture sputum and urine cultures have been negative. She did have a low-grade fever this morning with a temp of 100.3F. He is receiving tube feedings with the vital AF at a rate of 78 with a goal of 70 and standard water flushes. She has a Dobbhoff tube inserted through which she is receiving nutritional support. Yesterday patient tolerated some pressure support trials with pressure support of 10 and CPAP at 5, for several hours, however at 7:30 in the evening apparently patient went into A. fib with RVR, and possibly developed a mucous plug, out to worsening shortness of breath, and was placed back on assist control mode of ventilation. Patient had been on oral amiodarone and metoprolol, he had since converted back to sinus bradycardia, this morning he is paced at a rate of 80 BPM in the AAI mode of pacing, and his underlying rhythm is sinus bradycardia with a rate of 52 BPM. Today's chest x- ray has been reviewed showing bilateral patchy increased attenuation within the lungs. Patient remains on Zosyn for antibiotic coverage, sputum has shown no growth. Today's labs have been reviewed showing white blood cell count of 10.0, hemoglobin is 7.8, sodium is 142, potassium 3.8, chloride is 108, CO2 is 28, BUN of 38, and creatinine is 1.10. And is following simple commands, he is profoundly weak. We'll proceed with pressure-support trials again today. On 11/25/2019 patient seen in follow-up in the intensive care unit, he is awake and alert, he is following all commands, he is moving both upper and lower extremities, no unilateral weakness noted on today's exam, he is making eye contact, he is following command, he denies any acute distress, he remains intubated, he has been on pressure-support trials for the last 24 hours, he is done very well, tolerated them very well, no signs of agitation, he has been maintained on Precedex at 0.5 mics per kilo per hour, no other drips were IV fluids. No vasoactive drips. Tube feedings are currently off, she was receiving them with the vital AF at a rate of 70. Tube feedings are on hold for possibility of permanent pacemaker insertion. Patient still has AV wires in his chest connected to a permanent pacemaker and he is pacemaker dependent as the underlying rhythm is still bradycardic sinus mechanism with a rate of 40 BPM, last night apparently there was an issue with capturing and there is a concern that patient will need a permanent pacemaker, is a current pacemaker leads are developing some issues with capture. He is currently 100% paced at a rate of 70 at a mode of AAI. Blood pressure is stable. Lung sounds are clear, diminished at the bases, today's chest x-ray has been reviewed showing improved aeration, no sizable pneumothorax or pleural effusion. Dobbhoff tube ET tube and b ilateral chest tubes remain in place. His right chest tube had 650 ML of thin serosanguineous output in last 24 hours, and left lateral chest tube had 830 mL of serosanguineous thin output in the last 24 hours, Junior catheter is in place, patient is producing good amount of urine, he remains on Lasix of 40 mg every 12 hours, he is in -2.4 L fluid balance over the last 24 hours. Today's labs have been reviewed showing limited cell count of 8.6, hemoglobin of 8.0, sodium is 142, potassium is 3.8, chloride is 110. Patient's blood gas was reviewed showing pO2 of 134, pCO2 of 38, and pH of 7.47, this was done on FiO2 of 40% on pressure-support of 10. Objective - Vital Signs Vital signs: Vital Signs Temp 96.8 F L 11/25/19 08:00 Pulse 80 11/25/19 10:00 Resp 17 11/25/19 10:00 BP 109/64 11/25/19 10:00 Pulse Ox 99 11/25/19 10:00 Intake & Output 11/24/19 11/25/19 11/25/19 18:59 06:59 18:59 Intake Total 1048.631 436 Output Total 1925 1500 Balance -006.369 1064 Weight 85.1 kg Intake: IV 269 156 .9NS @ 10 ml/hr 130 120 Normal Saline Pressure 39 36 Bag Piperacillin-Tazobactam 3 100 .375 gm In Sodium Chloride 0.9% 100 ml @ 25 mls/hr IVPB Q8HR [facility] Rx# :[id number] Intake, IV Titration 89.631 Amount Dexmedetomidine/0.9% NaCl 89.631 (Pmx) 400 mcg In Empty Bag 1 bag @ 0.3 MCG/KG/HR 6.675 mls/hr IV .[id number] [facility] Rx#:[id number] Tube Feeding 630 280 Other 60 Output: Chest Tube Drainage 145 70 left lateral chest tube 70 10 right lateral chest tube 75 60 Urine 1780 1430 Other: Voiding Method Indwelling Catheter Indwelling Catheter ABP, PAP, CO, CI - Last Documented Arterial Blood Pressure 115/50 Pulmonary Artery Pressure 30/17 Cardiac Output 4.5 Cardiac Index 2.3 - Exam GENERAL EXAM: intubated 64-year-old white male, with FiO2 40%, patient is awake , following simple commands, remains on Precedex at 0.5 mics per kilo per hour, patient is following all commands, she is squeezing with both hands, strength appears equal in both hands, he is wiggling his toes on command, is making eye contact and following command HEAD: Normocephalic/atraumatic. EYES: Normal reaction of pupils, equal size. Conjunctiva pink, sclera white. NOSE: Clear with pink turbinates. Patient has a Dobbhoff feeding tube in place with tube feedings infusing THROAT: No erythema or exudates. NECK: No masses, no JVD, no thyroid enlargement, no adenopathy. CHEST: No chest wall deformity. Symmetrical expansion. Midsternal incision is clean dry and intact, interval removal of chest tubes, AV wires remain in place to external pacemaker, intrinsic rhythm is sinus bradycardia with a rate of 40, and patient is being paced AAI mode with a rate of 70 BPM. Patient still has left and right chest tubes with moderate amount of thin serosanguineous output to wall suction no evidence of air leak LUNGS: Equal air entry with no crackles, wheeze, rhonchi or dullness. CVS: regular rate and rhythm, normal S1 and S2, no gallops, no murmurs, no rubs, ABDOMEN: Soft, nontender. No hepatosplenomegaly, normal bowel sounds, no guarding or rigidity. EXTREMITIES: No clubbing, no edema, no cyanosis, 2+ pulses and upper and lower extremities. MUSCULOSKELETAL: Muscle strength and tone normal. SPINE: No scoliosis or deformity SKIN: No rashes CENTRAL NERVOUS SYSTEM: Patient is awake and following simple commands - Labs CBC & Chem 7: 11/25/19 06:00 11/25/19 06:00 Labs: Abnormal Lab Results - Last 24 Hours (Table) 11/24/19 11/24/19 11/24/19 Range/Units 11:50 16:34 20:34 RBC (4.30-5.90) m/uL Hgb (13.0-17.5) gm/dL Hct (39.0-53.0) % MCV (80.0-100.0) fL Eosinophils # (0-0.7) k/uL ABG pH (7.35-7.45) ABG pO2 (83-108) mmHg ABG HCO3 (21-25) mmol/L ABG O2 Saturation (94-97) % Chloride (98-107) mmol/L BUN (9-20) mg/dL POC Glucose (mg/dL) 125 H 106 H 120 H (75-99) mg/dL Calcium (8.4-10.2) mg/dL ALT (4-49) U/L 11/25/19 11/25/19 11/25/19 Range/Units 05:25 06:00 06:00 RBC 2.52 L (4.30-5.90) m/uL Hgb 8.0 L (13.0-17.5) gm/dL Hct 25.3 L (39.0-53.0) % MCV 100.3 H (80.0-100.0) fL Eosinophils # 1.1 H (0-0.7) k/uL ABG pH 7.47 H (7.35-7.45) ABG pO2 134 H (83-108) mmHg ABG HCO3 28 H (21-25) mmol/L ABG O2 Saturation 99.0 H (94-97) % Chloride 110 H (98-107) mmol/L BUN 33 H (9-20) mg/dL POC Glucose (mg/dL) (75-99) mg/dL Calcium 8.3 L (8.4-10.2) mg/dL ALT 144 H (4-49) U/L Assessment and Plan Plan: Assessment: 1 coronary artery disease without stable angina and non-STEMI. The patient underwent five-vessel bypass surgery on 11/08/2019. CABG 5 with GR to LAD, left radial artery to obtuse marginal, saphenous vein to posterior lateral, sequential saphenous vein to first and second diagonal performed on cardiopulmonary bypass with beating heart. Epi-aortic ultrasound and ligation of left atrial appendage with Atriclip. The patient is postop day #17. Hemodynamically stable. 2 recurrent acute hypoxic respiratory failure, multifactorial, patient was initially intubated for the original surgery on 11/08/2019 with extubation on 11/08/2019, patient was re-intubated on 11/12/2019, for symptomatic bradycardia, worsening lactic acidosis, of unclear etiology. Patient was successfully weaned and extubated on 11/19/2019, and subsequently reintubated on 11/20/2019 for worsening hypoxemia related to pulmonary edema and A. fib with RVR. Antibiotics have been given empirically, cultures remain negative 3 altered mental status likely related to metabolic encephalopathy, subacute CVA involving the left MCA distribution please refer to the neurology evaluation, improved on today's exam on 11/25/2019, patient is following commands, he remains intubated he is on small amount of Precedex, he is moving all 4 extremities, strength appears equal 4 new-onset atrial fibrillation with RVR, expected outcome of surgery, intermittent requiring amiodarone infusion. On 11/22/2019 patient is in A. fib with slightly tachycardic rate. On 11/23/2019 patient had converted to sinus bradycardia, with a rate of 40, and patient is being paced at AAI mode with a rate of 70 BPM 5 blood loss anemia , expected outcome of surgery, and this is likely of blood loss anemia. Patient transfused with 4 units of blood this admission 6 COPD with an FEV1 of 60% of predicted at baseline 7 Peripheral vascular disease with prior peripheral stent placements 8 Right carotid artery stenosis at 50-69% 9 History of marijuana use 10 Diabetes mellitus, type II, insulin drip for blood sugar control, running at 1.5 units per hour. 11 History of bladder cancer status post radiation/chemotherapy and subsequent surgery 12 History of noncompliance 13 liquid diarrhea, patient is on oral vancomycin for possibility of C. diff, although this was not tested related to recent history of laxative use Plan: We'll continue with pressure support trials with per support of 10 and CPAP of 5. Would like to get the patient extubated, but we will wait for insertion of h is permanent pacemaker, in the meantime we'll continue Precedex, patient is tolerating pressure support trials quite well, he is more awake and alert, he is following command, he is moving all 4 extremities. Zosyn has been discontinued, vital signs have been stable, patient is afebrile, no acute issues overnight. Blood gas has been reviewed, chest x-ray has been reviewed, there is some improvement in aeration bilaterally. The goal is to get the patient extubated once he receives a permanent pacemaker and remains stable. Continue aspiration precautions, will closely follow I performed a history & physical examination of the patient and discussed their management with my nurse practitioner, Elva Newberry. I reviewed the nurse practitioner's note and agree with the documented findings and plan of care. Lung sounds are positive for clear breath sounds. The findings and the impression was discussed with the patient. I attest to the documentation by the nurse practitioner. Critical care time is greater then 30 minutes Time with Patient: Greater than 30
[2019-11-25] MEDS ORDERED: LIDOCAINE 1% INJ 10MG/ML (20 ML MDV) SQ ONE (11:13)
--- NOTE | 2019-11-25 12:11 | P.PCN ---
Date of Procedure: 11/25/19 Preoperative Diagnosis: Severe bradycardia, status post CABG Postoperative Diagnosis: The same Procedure(s) Performed: Dual-chamber permanent pacemaker implantation, axillary venography Description of Procedure: HISTORY: This is a 64-year-old gentleman who is status post bypass surgery, have been having tachybradycardia syndrome with severe bradycardia and episodes of atrial fibrillation. Permanent pacemaker is requested by cardiac surgeon. CONSENT:I have discussed the risks, benefits and alternative therapies for the above-mentioned procedure and for both sedation/analgesia as well as necessary blood product administration, if indicated, as they pertain to this patient. The patient has indicated understanding and acceptance of the risks and procedures discussed. PROCEDURE: Patient was brought to the lab in a fasting state. Patient was prepped and draped in the usual fashion. Patient was given IV sedation with fentanyl and Versed. The skin below the left clavicle was infiltrated with lidocaine. An incision was made parallel to deltopectoral groove was deepened until the pectoral fascia was exposed. A pocket was created by blunt dissection and cautery. Axillary venography was performed to delineate the course of the axillary vein. 2 sticks were performed into extrathoracic portion of the axillary vein and 2 sheaths were advanced over the guidewires and left in subclavian vein. Conscious Sedation: Patient is already sedated and intubated Fentanyl 0 g Duration 46minutes LEADS: ATRIAL: This is manufactured by [employer]. Model number is 5076-52. The serial number is [id number] VENTRICULAR: This is manufactured by [employer]. Model number is 4076-58 and the serial number is [id number] The device.: This is manufactured by [employer]. Model number is [id number] and the serial number is [id number] The ventricular lead is maneuvered l with help of a straight and curved stylets into the left ventricle apical region. Satisfactory position was obtained and threshold measurements were made. The atrial lead was then maneuvered into the right atrial lateral wall. Multiple sites were tested. No ideal location could be obtained. The best location possible was chosen. THRESHOLDS: The minimum pacing threshold was 1 at a pulse width of 1. The impedance is 532. The P-wave is 0.6-1 The minimal pacing threshold is 0.75 V at pulse width of 0.4. Impedance is 980. The R-wave is 7.8 The leads and pulse generator remained in the pocket after it was washed with antibiotics. Pocket was closed in the usual fashion. The fascia was closed with 2-0 Prolene ,the subcutaneous tissue was closed with 3-0 Prolene and the skin was closed with 4-0 Prolene. PROGRAMMING: MOde: AAIR DDDR RATE: 60 to 130 OUTPUT: Atrium: 3.5 Ventricle: 3.5 FINAL IMPRESSION: #1. Successful implantation of dual-chamber pacemaker. #2. Axillary venography COMPLICATIONS: None PLAN: patient will monitored in ICU. Prophylactic antibiotic be continued
[2019-11-25] MEDS: DEXMEDETOMIDINE/0.9% NACL(PMX) 400 MCG in EMPTY BAG 1 BAG IV SCH (13:08)
[2019-11-25] MEDS: ASCORBIC ACID 500 MG TAB PO SCH ×2 (13:46→18:54)
[2019-11-25] MEDS: CHOLESTYRAMINE (WITH SUGAR) 4 GM PACKET PO SCH ×4 (13:46→20:18)
[2019-11-25 13:47] LABS: Glucose,Whole Blood 111 mg/dL (75-99)
[2019-11-25] MEDS: CHLORHEXIDINE GLUCONATE 15 ML CUP MUCOUS MEM SCH ×2 (13:51→20:18)
[2019-11-25] MEDS: PANTOPRAZOLE 40 MG TABLET PO SCH (13:52)
[2019-11-25] MEDS: AMIODARONE 200 MG TAB NG-TUBE SCH ×2 (13:52→20:17)
[2019-11-25] MEDS: ASPIRIN 325 MG TAB PO SCH (13:52)
[2019-11-25] MEDS: CLOPIDOGREL 75 MG TAB PO SCH (13:52)
[2019-11-25] MEDS: FERROUS SULFATE ORAL ELIXIR 300 MG/5 ML CUP PO SCH ×2 (13:54→18:55)
[2019-11-25] MEDS: SODIUM CHLORIDE 0.9% 1,000 ML IV SCH (13:55)
[2019-11-25] MEDS: ATORVASTATIN 40 MG TAB PO SCH (13:56)
[2019-11-25] MEDS: NYSTATIN 100,000 UNIT/ML SUSP 500,000 UNIT/5 ML CUP PO SCH ×4 (13:56→20:18)
--- NOTE | 2019-11-25 14:56 | P.PN ---
Subjective Progress Note Date: 11/25/19 Principal diagnosis: Patient is a [id number] male was recently discharged from the hospital came back in with the chest pain pressure-like sensation lasted for a few hours nonexertional did have elevated troponins. Patient had a triple-vessel disease patient is scheduled to undergo coronary artery bypass grafting on Friday went home started smoking again started having chest pain. Chest x-ray was read as pulmonary edema. It is not elevated patient clinically doesn't have any JVD or crackles or wheezing. 11/09/2019 Patient is status post CABG he was extubated the last night. Patient is presently on norepinephrine, milrinone, IV insulin. Patient still has a Ayer- Juni in place most of the management is being done by cardiac thoracic surgery patient was bit confused earlier today doing well now. 11/10/2019 Patient is still confused as per the family his confusion is better patient is a low-grade fever probably because of atelectasis a lot and blood cultures. Patient received Lasix for pulmonary edema, patient's mediastinal chest use with remote patient still has left pleural chest tubes Review of systems: Unable to obtain as patient is tired and sleepy All inpatient medications were reviewed and appropriate changes in these medications as dictated in the interval history and assessment and plan. 11/11/2019 Patient is seen and evaluated and follow-up currently remains in the ICU and is being closely monitored. Since hemoglobin was found to be 6.7 this morning and is currently receiving 1 unit of PRBCs. Potassium is 4.4, creatinine is 1.09, magnesium is 2.3. Patient went into atrial fibrillation with RVR and is being maintained on amiodarone drip and will transition to oral medications. Patient continues to have chest tubes along with indwelling Junior catheter which shows some hematuria as patient pulled it out. Patient has been afebrile with intermittent low-grade temps 99.7F and white count today is 14.1. Patient remains on an insulin drip and will continue at this time. Will continue to follow along closely with cardio thoracic surgery. 11/12/2019 Patient is seen and evaluated and follow-up continues to be closely monitored in the ICU. Patient is currently restless and seems to be having some shortness of breath. Patient is placed on nasal cannula although was mouth breathing and is currently on 5 L of oxygen. Patient was on insulin drip which has been discontinued and patient will be continued on sliding scale as patient now has a diet ordered although isn't eating very much. Patient continues to be confused and not following commands. Patient had a chest x-ray today status post chest tube removal showing no evidence of residual pneumothorax. Patient underwent brain CT yesterday showing patchy periventricular and deep white matter changes, left greater than right that have progressed since 01/19/2019 with demyelinating disease or other infectious inflammatory etiologies are possible, and no acute intracranial hemorrhage or midline shift noted. 11/13/2019 Patient became to Make and found to have metabolic acidosis with respiratory compensation progressively got fatigued event into respiratory failure subsequently intubated patient received the bicarbonate infusion for severe metabolic acidosis and patient had lactic acidosis with the lactic acid going up to 11 which came down to 1.5 patient is also started on pressor support with Levophed on mechanical ventilator with tidal volume of 450 set up respiratory of 24 FiO2 of 50% PEEP of 5 urine output is fairly. Chest x-ray showing mild pulmonary vascular congestion with the pleural effusions bilaterally 11/14/2019 Patient the did not tolerate weaning trial. Patient remains on ventilatory support. Patient is a one dose of vancomycin patient is presently on IV Zosyn for fevers although etiology of fevers is not clear at this time. Patient blood sugars are high receiving 3 units every 4 hours as per sliding scale patient wi ll be started on long-acting insulin 15 units and continue with sliding scale Review of systems: Unable to obtain as patient is tired and sleepy All inpatient medications were reviewed and appropriate changes in these medications as dictated in the interval history and assessment and plan. 11/15/2019 Patient is seen and evaluated and follow-up and currently remains in the ICU on mechanical ventilation and is being closely monitored. Patient continues to have a Dobbhoff for nutrition and remains on long-acting Levemir 15 units at bed along with sliding scale and will continue at this time. Patient is currently maintained on IV vancomycin along with Zosyn and infectious disease has been consulted. Patient is afebrile for 24 hours. White blood count is trending down and is currently 15.3 today. 11/16/2019 Patient is seen and evaluated in follow-up continues to be on a mechanical ve ntilator and intubated with sedation and is being closely monitored in the ICU. Patient continues to have elevated blood sugars and have increased the long- acting Levemir to 20 units and will continue with sliding scale and added 5 units every 4 hours For tighter glycemic control. Patient remains on tube feedings at goal via a Dobbhoff system. Multiple medical consultations following. Patient is maintained on IV vancomycin and cefepime and will continue at this time. White blood count slowly trending down at 15.2 today. Chest x-ray showing some pleural effusions and a chest ultrasound was performed showing bilateral pleural effusions although small in size and were not marked. 11/17/2019 Patient is seen and evaluated in follow-up currently continued on a mechanical ventilator and intubated and continues to be closely monitored in the ICU. Sedation has been on hold and patient eyes are opening Although not following commands. patient underwent head CT showing no evidence of acute hemorrhage with areas of patchy low attenuation left parietal white matter as previously noted and are of indeterminate age and could possibly be on the basis of subacute ischemia with no significant interval change. Degenerative and suspect remote ischemic change also noted and correlate with MRI as clinically warranted. Neurology was consulted and pending at this time. Multiple medical consultations following. Patient is currently maintained on cefepime and vancomycin and will continue at this time. White blood count elevated at 15.0 With hemoglobin of 7.7. Current creatinine is 1.04. Patient remains afebrile. Will continue to monitor closely. 11/18/2019 Patient is seen and evaluated in follow-up today currently continues to be in the ICU being closely monitored. Remains intubated although have been holding propofol and patient appears to be following commands with the left extremity although right upper extremity is flaccid. Neurology evaluated the patient and recommended MRI and this will be done once patient is extubated and more stable. CT of the head findings are probable of a subacute stroke involving multiple patchy areas in the left MCA vascular territory with the possibility of a cardio embolic source. Patient did have transient atrial fibrillation. There is right ICA stenosis of 50-69% on the carotid Doppler. Patient's 2-D echo showed no obvious embolic source. Patient remains on aspirin and Plavix along with statin and will continue at this time. Attempts to use Precedex as patient is off propofol at this time. Multiple medical consultations following. Patient continues on IV antibiotics in the form of cefepime and vancomycin has been discontinued. Infectious disease is following. Today's chest x-ray shows diffuse bilateral pleural parenchymal changes correlate for ards, pulmonary edema, or diffuse pneumonia and patient is maintained on IV Lasix and will continue at this time. White count is 14.7 today, hemoglobin is 7.3. Current creatinine is 1.05 with a BUNs of 33. Ammonia level less than 9. Will continue to monitor closely. Review of systems: Unable to obtain as patient is intubated and sedated 11/19/2019 Patient is seen and evaluated and currently remains in the ICU being closely monitored. Patient was just recently extubated and tolerated well. Patient remains off sedation and continues to be on a small dose of Precedex. Patient also continues with a Dobbhoff tube feedings system and will continue at this ti me. Patient is awake and responding appropriately to simple commands. Right and left upper extremity sample box maker strength noted. Right sample box maker strength 3-5, left 4- 5. Patient is not talking as of yet although did mumble when asked a question and knodded head yes appropriately. Also medical consultations following. Patient is maintained on IV antibiotics and will continue at this time. White blood count slowly trending down and is currently 13.3. She remains on IV Lasix and current creatinine is 1.15 with a BUNs of 38. Sodium is 140. Patient is maintained on long-acting along with every 4 hours coverage and sliding scale and will continue at this time. Liver function slowly trending down. Patient is currently maintained on 4 L via nasal cannula. 11/20/19, patient is seen and evaluated in ICU; extubated yesterday. Patient is awake, follows very simple instructions, remains on 8 L high flow nasal cannula, O2 saturations 94%. Patient is hemodynamically stable not requiring any inotropes or pressors. Patient had an episode of A. fib with RVR yesterday and he received 2 boluses of amiodarone. Presently in normal sinus rhythm. Patient follows again simple instructions, but remains confused, oriented 1 to person. Continues to have Dobbhoff tube in place, and receiving enteral feeding. Remains on antibiotics in the form of Zosyn for presumptive aspiration. Laboratory review shows a white blood count of 20.5, hemoglobin 7.4; chemical profile significant for mild elevation in BUN of 36 Patient will continue to be monitored in ICU with empiric IV antibiotics; plan to wean off O2 as able; patient remains on aspirin, Plavix and Cardizem; diuretic therapy was continued Patient will remain on Dobbhoff tube feeding with plan to increase ambulation as possible 11/21/2019 Patient is seen and evaluated in ICU; patient reintubated yesterday after developing acute respiratory distress after developing atrial fibrillation with RVR which was treated with multiple medications including Cardizem drip and eventually metoprolol was increased to 50 mg 3 times a day; patient became bradycardic and developed pulmonary edema; patient remains sedated with propofol; CT angiogram of the chest was done which was negative for PE; chest x- ray shows improved pulmonary edema Patient remains on aspirin, Plavix and diuretics; continue with empiric antibiotic therapy; remains on nutritional support with Glucerna 11/22/2019 Patient is seen and evaluated in ICU; remains intubated and mechanically ventilated; patient had repeat chest x-ray this morning showing diffuse bilateral infiltrates and pleural effusion along with pneumothorax; patient remains on IV Lasix and is diuresing well; remains on tube feeding in form of Glucerna at rate of 75 mL per hour; blood pressure is stable without any pressor support; patient remains on IV antibiotics in the form of Zosyn and vancomycin; cultures have been negative so far 11/23/2019 Patient is seen and evaluated in follow up and continues to be in the ICU being closely monitored. Patient has been intubated and is currently sedated as patient will be undergoing bilateral chest tube placement for bilateral pleural effusions. Patient is maintained on IV lasix and will continue. Patient continues to be monitored closely while on IV antibiotics and will continue at this time. Will repeat am labs. 11/24/2019 Patient is seen and evaluated and follow-up currently remaining in the ICU slightly sedated on Precedex. Patient to continue with trials on the CPAP. Patient was able to follow simple commands with the upper extremities. Patient underwent bilateral chest tube placement and is being closely monitored. Hemoglobin is 7.8 today. Minimal output noted on the chest tubes today. Patient's respiratory status slightly improved status post chest tube placement. Patient is currently on Precedex for anxiety. Patient had an episode of a mucous plug last night and was suctioned by respiratory and resolved. Patient continues on tube feedings with the possibility and discussion of PEG and trach tube placement in the near future. 11/25/2019 Patient is seen today in follow-up currently remains in the ICU being closely monitored. Patient will be undergoing pacemaker placement today. BMP is within normal limits today. Patient continues to be intubated and remains on Precedex and will continue at this time. Patient continues with bilateral chest tubes along with indwelling Junior catheter. Feedings have been on hold for the procedure this morning. Will continue to monitor blood sugars closely. Repeat a.m. labs. Objective - Vital Signs Vital signs: Vital Signs Temp 98.6 F 11/25/19 04:00 Pulse 80 11/25/19 09:11 Resp 15 11/25/19 07:00 BP 109/64 11/25/19 06:00 Pulse Ox 95 11/25/19 07:00 Intake & Output 11/24/19 11/25/19 11/25/19 18:59 06:59 18:59 Intake Total 1048.631 436 Output Total 1925 1500 Balance -876.369 -1064 Weight 85.1 kg Intake: IV 269 156 .9NS @ 10 ml/hr 130 120 Normal Saline Pressure 39 36 Bag Piperacillin-Tazobactam 3 100 .375 gm In Sodium Chloride 0.9% 100 ml @ 25 mls/hr IVPB Q8HR [facility] Rx# :[id number] Intake, IV Titration 89.631 Amount Dexmedetomidine/0.9% NaCl 89.631 (Pmx) 400 mcg In Empty Bag 1 bag @ 0.3 MCG/KG/HR 6.675 mls/hr IV .[id number] [facility] Rx#:[id number] Tube Feeding 630 280 Other 60 Output: Chest Tube Drainage 145 70 left lateral chest tube 70 10 right lateral chest tube 75 60 Urine 1780 1430 Other: Voiding Method Indwelling Catheter Indwelling Catheter ABP, PAP, CO, CI - Last Documented Arterial Blood Pressure 124/51 Pulmonary Artery Pressure 30/17 Cardiac Output 4.5 Cardiac Index 2.3 - Exam Head: Atraumatic, normocephalic, currently intubated on mechanical vent and sedated HEENT:Neck is supple.No neck masses. No thyromegaly. No JVD. Moist mucous membranes, PERRLA, EOMI, no icterus. Chest: Symmetrical chest expansion, crackles at the bases no rhonchi and no wheezes. bilateral chest tubes noted on the right and left Cardiac Exam: Normal S1 and S2, no S3 gallop, no murmur. Abdomen: Soft, nontender, no megaly, no rebound, no guarding, normal bowel sounds. Extremities: No clubbing, no edema, no cyanosis. Neurological Exam: intubated and sedated - Labs CBC & Chem 7: 11/25/19 06:00 11/25/19 06:00 Labs: Abnormal Lab Results - Last 24 Hours (Table) 11/24/19 11/24/19 11/24/19 Range/Units 11:50 16:34 20:34 RBC (4.30-5.90) m/uL Hgb (13.0-17.5) gm/dL Hct (39.0-53.0) % MCV (80.0-100.0) fL Eosinophils # (0-0.7) k/uL ABG pH (7.35-7.45) ABG pO2 (83-108) mmHg ABG HCO3 (21-25) mmol/L ABG O2 Saturation (94-97) % Chloride (98-107) mmol/L BUN (9-20) mg/dL POC Glucose (mg/dL) 125 H 106 H 120 H (75-99) mg/dL Calcium (8.4-10.2) mg/dL ALT (4-49) U/L 11/25/19 11/25/19 11/25/19 Range/Units 05:25 06:00 06:00 RBC 2.52 L (4.30-5.90) m/uL Hgb 8.0 L (13.0-17.5) gm/dL Hct 25.3 L (39.0-53.0) % MCV 100.3 H (80.0-100.0) fL Eosinophils # 1.1 H (0-0.7) k/uL ABG pH 7.47 H (7.35-7.45) ABG pO2 134 H (83-108) mmHg ABG HCO3 28 H (21-25) mmol/L ABG O2 Saturation 99.0 H (94-97) % Chloride 110 H (98-107) mmol/L BUN 33 H (9-20) mg/dL POC Glucose (mg/dL) (75-99) mg/dL Calcium 8.3 L (8.4-10.2) mg/dL ALT 144 H (4-49) U/L Assessment and Plan Assessment: -Coronary artery disease and non-ST elevation myocardial infarction status post CABG 5 -bilateral pleural effusions status post bilateral chest tube placement of the left and right -Altered mental status most likely secondary to metabolic encephalopathy suspected, CVA, please refer to neurology evaluation. -New onset atrial fibrillation and RVR; remains rate controlled on amiodarone. -Type 2 diabetes; continue with Levemir 20 units subcu daily at bedtime; monitor Accu-Cheks every before meals and at bedtime with insulin sliding scale. -Peripheral vessel occlusive disease with prior peripheral stent placement. -Moderate severe COPD FEV1 of 60%; not in exacerbation; continue with bronchodilator nebulizer treatment and home inhaler therapy. -Acute kidney injury and acute shock liver secondary to hypotension, improving -DVT prophylaxis; subcu heparin -CODE STATUS; full code Plan: Patient to continue with current medications, management, and symptomatic tr eatment. Patient continues to be intubated and continues with bilateral chest tube for bilateral pleural effusions. Patient continues on IV lasix along with IV antibiotics at this time. Multiple medical consultations following. Patient undergoing permanent pacemaker placement today. Will repeat am labs, and continue to monitor blood sugars closely. Further recommendations to follow. Prognosis is guarded.
[2019-11-25] MEDS: FUROSEMIDE 10 MG/ML 4 ML VIAL IV SCH ×2 (15:06→20:18)
--- NOTE | 2019-11-25 15:12 | PN ---
PROGRESS NOTE DATE OF SERVICE: 11/25/2019 REASON FOR FOLLOWUP: 1. Leukocytosis. 2. Diarrhea and question of C difficile. INTERVAL HISTORY: Patient was seen on rounds this morning. The patient has been afebrile. The patient is hemodynamically stable. FiO2 is currently stable. No significant purulent secretion through the ET or any worsening diarrhea reported by nursing staff. Patient is scheduled for a pacemaker placement today. PHYSICAL EXAMINATION: Blood pressure 109/64 with a pulse of 80, temperature 96.8. He is 98% on 40% FiO2. General description is an elderly male, lying in bed in no distress. RESPIRATORY SYSTEM: Unlabored breathing, clear to auscultation anteriorly. HEART: S1, S2. Regular rate and rhythm. ABDOMEN: Soft, no tenderness. LABS: Hemoglobin is 8 with white count of 8.6, BUN of 33, creatinine 0.8. DIAGNOSTIC IMPRESSION AND PLAN: Patient with leukocytosis, multifactorial; possible component of Clostridium difficile colitis. Patient clinically responded to oral vancomycin to continue and will monitor clinical course closely. Continue supportive care. MMODL / IJN: [id number] /
[2019-11-25] MEDS: METOPROLOL TARTRATE 25 MG TAB NG-TUBE SCH ×2 (15:52→20:17)
[2019-11-25] MEDS: LOSARTAN 25 MG TAB PO SCH (15:52)
--- NOTE | 2019-11-25 16:16 | P.PN ---
Subjective Progress Note Date: 11/25/19 Patient was seen for a follow-up. Patient re-intubated on 11/20/2019. Patient has been off sedation. Still intubated. He is fully alert and awake. Much more interactive. Patient just returned after placement of a permanent pacemaker. Please refer to examination below. Objective - Vital Signs Vital signs: Vital Signs Temp 96.8 F L 11/25/19 08:00 Pulse 80 11/25/19 10:00 Resp 17 11/25/19 10:00 BP 109/64 11/25/19 10:00 Pulse Ox 99 11/25/19 10:00 Intake & Output 11/24/19 11/25/19 11/25/19 18:59 06:59 18:59 Intake Total 1048.631 436 206.732 Output Total 1925 1500 Balance -876.369 -1064 206.732 Weight 85.1 kg 85.1 kg Intake: IV 269 156 125 .9NS @ 10 ml/hr 130 120 Normal Saline Pressure 39 36 Bag Piperacillin-Tazobactam 3 100 .375 gm In Sodium Chloride 0.9% 100 ml @ 25 mls/hr IVPB Q8HR [facility] Rx# :[id number] Intake, IV Titration 89.631 81.732 Amount Dexmedetomidine/0.9% NaCl 89.631 81.732 (Pmx) 400 mcg In Empty Bag 1 bag @ 0.3 MCG/KG/HR 6.675 mls/hr IV .[id number] [facility] Rx#:[id number] Tube Feeding 630 280 Other 60 Output: Chest Tube Drainage 145 70 left lateral chest tube 70 10 right lateral chest tube 75 60 Urine 1780 1430 Other: Voiding Method Indwelling Catheter Indwelling Catheter ABP, PAP, CO, CI - Last Documented Arterial Blood Pressure 115/50 Pulmonary Artery Pressure 30/17 Cardiac Output 4.5 Cardiac Index 2.3 - Exam Patient is intubated. He is fully alert and awake. Patient follows commands. 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 Patient wiggles his toes, but inconsistently. It appears he voluntarily does not want to follow commands at times. - Labs CBC & Chem 7: 11/25/19 06:00 11/25/19 06:00 Labs: Abnormal Lab Results - Last 24 Hours (Table) 11/24/19 11/24/19 11/25/19 Range/Units 16:34 20:34 05:25 RBC (4.30-5.90) m/uL Hgb (13.0-17.5) gm/dL Hct (39.0-53.0) % MCV (80.0-100.0) fL Eosinophils # (0-0.7) k/uL ABG pH 7.47 H (7.35-7.45) ABG pO2 134 H (83-108) mmHg ABG HCO3 28 H (21-25) mmol/L ABG O2 Saturation 99.0 H (94-97) % Chloride (98-107) mmol/L BUN (9-20) mg/dL POC Glucose (mg/dL) 106 H 120 H (75-99) mg/dL Calcium (8.4-10.2) mg/dL ALT (4-49) U/L 11/25/19 11/25/19 11/25/19 Range/Units 06:00 06:00 13:45 RBC 2.52 L (4.30-5.90) m/uL Hgb 8.0 L (13.0-17.5) gm/dL Hct 25.3 L (39.0-53.0) % MCV 100.3 H (80.0-100.0) fL Eosinophils # 1.1 H (0-0.7) k/uL ABG pH (7.35-7.45) ABG pO2 (83-108) mmHg ABG HCO3 (21-25) mmol/L ABG O2 Saturation (94-97) % Chloride 110 H (98-107) mmol/L BUN 33 H (9-20) mg/dL POC Glucose (mg/dL) 111 H (75-99) mg/dL Calcium 8.3 L (8.4-10.2) mg/dL ALT 144 H (4-49) U/L Assessment and Plan Assessment: * Probable subacute stroke involving multiple patchy areas in the left MCA vascular territory. Rule out cardioembolic source. Patient had transient atrial fibrillation, therefore cardioembolic stroke is definitely a possibility. Patient is doing much better clinically. * Status post coronary artery bypass grafting. * Right ICA stenosis 50-69% per carotid ultrasound. * Hypertension * Diabetes * Medical noncompliance in the past. * Tobacco use. Plan: * Possible extubation tomorrow. * Patient had undergone pacemaker placement, therefore not able to get MRI in future. * Patient's 2-D echo showed no obvious embolic source at this time. * Carotid Doppler showed 50-69% stenosis proximal right ICA. * Patient currently on aspirin 325 mg and Plavix 75 mg. Also on Lipitor 40 mg. * Patient will need prolonged rehabilitation after he is extubated. * As there is no active neurological issue, Neurology will sign off. * Please reconsult neurology if any concerns.
[2019-11-25 16:19] LABS: Glucose,Whole Blood 139 mg/dL (75-99)
[2019-11-25 19:59] LABS: Glucose,Whole Blood 185 mg/dL (75-99)
[2019-11-25] MEDS: INSULIN DETEMIR (LEVEMIR) 100 UNIT/ML SYR SQ SCH (20:21)
[2019-11-26 00:11] LABS: Glucose,Whole Blood 232 mg/dL (75-99)
[2019-11-26] MEDS: INSULIN ASPART (NovoLOG) 100 UNIT/ML VIAL SQ SCH ×12 (00:41→20:07)
[2019-11-26] MEDS: HEPARIN SODIUM,PORCINE 5,000 UNIT/ML 1 ML VIAL SQ SCH ×3 (01:50→17:28)
[2019-11-26] MEDS: VANCOMYCIN ORAL SOLUTION 250 MG/5 ML BOTTLE PO SCH ×4 (02:58→17:26)
[2019-11-26 05:12] LABS: Glucose,Whole Blood 71 mg/dL (75-99)
[2019-11-26] MEDS ORDERED: DEXTROSE 50% SYRINGE 50 ML IVP ONE (05:56)
[2019-11-26 05:57] LABS: Glucose,Whole Blood 64 mg/dL (75-99)
[2019-11-26] MEDS ORDERED: DEXTROSE 50% SYRINGE 50 ML IVP STA (05:59)
[2019-11-26 06:18] LABS: Glucose,Whole Blood 163 mg/dL (75-99)
[2019-11-26] MEDS: DEXMEDETOMIDINE/0.9% NACL(PMX) 400 MCG in EMPTY BAG 1 BAG IV SCH (06:44)
[2019-11-26] MEDS: SODIUM CHLORIDE 0.9% 1,000 ML IV SCH (06:44)
[2019-11-26 07:00] LABS: African American GFR (CKD) >90 (>60 ml/min/1.73 sqM); Anion Gap 5 mmol/L; Blood Urea Nitrogen 34 mg/dL (9-20); Calcium 8.5 mg/dL (8.4-10.2); Carbon Dioxide 27 mmol/L (22-30); Chloride 110 mmol/L (98-107); Glucose 115 mg/dL (74-99); Non-African American GFR(CKD) >90 (>60 ml/min/1.73 sqM); Potassium 3.7 mmol/L (3.5-5.1); Sodium 142 mmol/L (137-145)
[2019-11-26 07:03] LABS: HCT 26.3 % (39.0-53.0); Hypochromasia Marked; MCH 30.6 pg (25.0-35.0); MCHC 30.4 g/dL (31.0-37.0); MCV 100.6 fL (80.0-100.0); Macrocytosis Slight; Mean Platelet Volume 9.2; Platelet Count 357 k/uL (150-450); RBC 2.61 m/uL (4.30-5.90); RDW 15.2 % (11.5-15.5); WBC 8.7 k/uL (3.8-10.6)
[2019-11-26 07:11] LABS: Band Neutrophils % 4 %; Eosinophils # (M) 0.44 k/uL (0-0.7); Lymphocytes # (M) 0.78 k/uL (1.0-4.8); Monocytes # (M) 0.09 k/uL (0-1.0); Neutrophils % (M) 81 %; Nucleated Red Blood Cells 0 /100 WBC (0-0); Total Cells Counted 100
[2019-11-26 07:12] LABS: Poikilocytosis (M) Present
[2019-11-26 08:32] LABS: Glucose,Whole Blood 87 mg/dL (75-99)
[2019-11-26] MEDS: IPRATROPIUM-ALBUTEROL 3 ML NEB INHALATION SCH ×4 (08:54→20:38)
--- NOTE | 2019-11-26 08:56 | XR ---
EXAMINATION TYPE: XR chest 1V DATE OF EXAM: 11/26/2019 CLINICAL HISTORY: Lead placement check TECHNIQUE: Portable semiupright view of the chest obtained COMPARISON: Chest radiograph 11/25/2019 FINDINGS: Left-sided dual-chamber pacemaker device with expected upturned appearance of right atrial appendage lead, and right ventricular lead. Sternotomy wires, left atrial appendage clips, and bilat eral chest tubes redemonstrated. Interval removal of endotracheal tube and enteric tube. There is mil dly increased pulmonary vascular congestion. Cardiomediastinal silhouette unchanged. No pleural effus ion or pneumothorax. IMPRESSION: 1. Expected radiographic appearance of left-sided dual-chamber pacemaker device. 2. Interval removal of enteric and endotracheal tubes. 3. Mildly increased pulmonary vascular congestion versus 11/25/2019.
--- NOTE | 2019-11-26 09:18 | P.PN ---
Subjective Progress Note Date: 11/26/19 Principal diagnosis: Symptomatic multivessel coronary artery disease, unstable angina, status post subendocardial myocardial infarction. Previous medical history of CAD with previous stent placement to the proximal circumflex and ostial OM1, hypertension, hyperlipidemia, chronic ongoing tobacco dependence, mild COPD with preoperative FEV1 60% of predicted, right internal carotid artery stenosis 50- 69%, peripheral arterial disease with previous arthrectomy and STAFF DEVELOPER of the left SFA, atherectomy and STAFF DEVELOPER of the left DIRECTOR GLOBAL, with stenting of the left BRIAN, poorly controlled type 2 diabetes with preoperative hemoglobin A1c 9.1%, bladder cancer status post chemo and radiation, occasional marijuana use, medication noncompliance, and family history of premature coronary artery disease POD #18 CABG 5 with GR to the LAD, left radial artery to the obtuse marginal, reverse saphenous vein to the posterior lateral, sequential saphenous vein to the first and second diagonal performed on cardiopulmonary bypass with beating heart. Endoscopic vein harvest of the left greater saphenous vein from the ankle to the groin. Endoscopic harvest of the left radial artery. Epi-aortic ultrasound and ligation of left atrial appendage with 40 mm AtriCure clip Postoperative acute blood loss anemia, expected outcome given cardiopulmonary bypass and hemodilution Postoperative encephalopathy, unexpected but potential outcome given cardiopulmonary bypass and intraoperative cardiac arrest Postoperative new onset paroxysmal Afib with RVR, unexpected Postoperative acute hypoxemic respiratory failure requiring reintubation, secondary to metabolic acidosis and hypotension. Postoperative stage II pressure ulcer on coccyx, unexpected The patient was seen and examined in the intensive care unit this morning. He was extubated yesterday and is currently on 5L nasal cannula in no acute distress. He shakes his head no when asked to be sitting any pain. He is alert and awake, he moves all extremities and follows commands. He has left and right pleural chest tubes present, Newman catheter present with return of hematuria, remains on oral vancomycin per infectious disease. Patient pulled Dobhoff this morning, passed nursing swallow evalutaion. Permanent pacemaker placed yesterd ay, currently 100% atrial paced at 60 beats per minute. Objective - Vital Signs Vital signs: Vital Signs Temp 98.9 F 11/26/19 04:00 Pulse 60 11/26/19 07:00 Resp 23 11/26/19 07:00 BP 109/64 11/26/19 07:00 Pulse Ox 97 11/26/19 04:00 Intake & Output 11/25/19 11/26/19 11/26/19 18:59 06:59 18:59 Intake Total 354.732 536.000 13 Output Total 1065 1365 Balance -710.268 -829.000 13 Weight 85.1 kg 80.5 kg Intake: IV 203 156 13 .9NS @ 10 ml/hr 60 120 10 Normal Saline Pressure 18 36 3 Bag Intake, IV Titration 81.732 100.000 Amount Dexmedetomidine/0.9% NaCl 81.732 100.000 (Pmx) 400 mcg In Empty Bag 1 bag @ 0.3 MCG/KG/HR 6.675 mls/hr IV .[id number] [facility] Rx#:[id number] Tube Feeding 70 280 Output: Chest Tube Drainage 360 left lateral chest tube 180 right lateral chest tube 180 Urine 705 1365 Other: Voiding Method Indwelling Catheter Indwelling Catheter ABP, PAP, CO, CI - Last Documented Arterial Blood Pressure 119/52 Pulmonary Artery Pressure 30/17 Cardiac Output 4.5 Cardiac Index 2.3 - Constitutional General appearance: Present: cooperative, no acute distress - Respiratory Details: Lungs sounds diminished bilaterally. Respirations even, nonlabored on 5L nasal cannula. Left pleural chest tube connected to continuous wall suction,, 200 the last 24 hours, serous drainage, no air leak present. Right pleural chest tube connected to continuous wall suction, 100 mL in the last 24 hours, serous drainage, no air leak present. - Cardiovascular Details: S1, S2 present. Regular rate and rhythm, permanant pacemaker placed yesterday and patient is currently atrial paced on telemetry with rate 60 beats per minute, A/V epicardial pacemaker wires present, connected to generator, turned off since PPM placement. Sternum stable. Palpable peripheral pulses bilaterally, trace generalized edema still present. Heart hugger, antiembolism stockings, SCDs present. - Gastrointestinal Gastrointestinal Comment(s): Abdomen soft, nontender, nondistended. Active bowel sounds present 4 quadrants. Fecal management system in place with liquid brown stool. Patient pulled out Dobhoff tube this morning, passed nursing swallow evaluation. - Genitourinary Genitourinary Comment(s): Newman present draining bloody urine. Output 60-350 mL per hour overnight. - Integumentary Integumentary Comment(s): Skin is warm and dry with evidence of good perfusion. Anterior chest incision well approximated and covered with dry intact dressing. Left lower extremity EVH site well approximated without drainage or redness. Left radial artery harvest site dry and intact without redness or drainage, good cap refill. Stage II pressure ulcer present to coccyx area, Optifoam dressing dry and intact. - Neurologic Neurologic: Present: CNII-XII intact - Musculoskeletal Musculoskeletal: Present: generalized weakness, strength equal bilaterally - Psychiatric Psychiatric Comment(s): A&Ox1 Psychiatric: Present: appropriate affect - Allied health notes Allied health notes reviewed: nursing - Labs CBC & Chem 7: 11/26/19 06:30 11/26/19 06:30 Labs: Abnormal Lab Results - Last 24 Hours (Table) 11/25/19 11/25/19 11/25/19 Range/Units 13:45 16:18 19:57 RBC (4.30-5.90) m/uL Hgb (13.0-17.5) gm/dL Hct (39.0-53.0) % MCV (80.0-100.0) fL MCHC (31.0-37.0) g/dL Lymphocytes # (Manual) (1.0-4.8) k/uL Chloride (98-107) mmol/L BUN (9-20) mg/dL Glucose (74-99) mg/dL POC Glucose (mg/dL) 111 H 139 H 185 H (75-99) mg/dL 11/26/19 11/26/19 11/26/19 Range/Units 00:09 05:10 05:54 RBC (4.30-5.90) m/uL Hgb (13.0-17.5) gm/dL Hct (39.0-53.0) % MCV (80.0-100.0) fL MCHC (31.0-37.0) g/dL Lymphocytes # (Manual) (1.0-4.8) k/uL Chloride (98-107) mmol/L BUN (9-20) mg/dL Glucose (74-99) mg/dL POC Glucose (mg/dL) 232 H 71 L 64 L (75-99) mg/dL 11/26/19 11/26/19 11/26/19 Range/Units 06:17 06:30 06:30 RBC 2.61 L (4.30-5.90) m/uL Hgb 8.0 L (13.0-17.5) gm/dL Hct 26.3 L (39.0-53.0) % MCV 100.6 H (80.0-100.0) fL MCHC 30.4 L (31.0-37.0) g/dL Lymphocytes # (Manual) 0.78 L (1.0-4.8) k/uL Chloride 110 H (98-107) mmol/L BUN 34 H (9-20) mg/dL Glucose 115 H (74-99) mg/dL POC Glucose (mg/dL) 163 H (75-99) mg/dL - Imaging and Cardiology Chest x-ray: report reviewed, image reviewed Assessment and Plan Assessment: 1. Symptomatic multivessel coronary artery disease, recent non-STEMI, status post 5 vessel CABG 2. Leukocytosis, maybe multifactoral, positive UTI. Blood, sputum, urine cultures negative to date although drawn after antibiotics started. 3. Previous stent placement to the proximal circumflex and ostial OM1 4. History of hypertension 5. History of hyperlipidemia 6. Chronic ongoing tobacco dependence 7. Mild COPD, preoperative FEV1 60% of predicted value 8. Right internal carotid artery stenosis 50-69%. 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 9. History of peripheral arterial disease with previous arthrectomy and STAFF DEVELOPER of the left SFA and atherectomy and STAFF DEVELOPER of the left DIRECTOR GLOBAL with stenting of the left BRIAN 10. Poorly controlled diabetes mellitus type 2 with hyperglycemia, admission hemoglobin A1c 9.1% 11. History of bladder cancer status post radiation, chemotherapy treatment and bladder surgery 12. Occasional marijuana use 13. Medication noncompliance 14. Family history of early onset coronary artery disease 15. Postoperative acute blood loss anemia, expected 16. Postoperative encephalopathy, unexpected 17. Mild ISAAC, resolved 18. Afib with RVR, status post left atrial appendage ligation, currently Sinus Rhythm to sinus bradycardia 19. Hematuria, resolved, likely from patient pulling at newman catheter 20. Postoperative acute hypoxic respiratory failure requiring reintubation, secondary to metabolic acidosis and hypotension 21. Elevated transaminase levels, shock liver, secondary to hypotension, trending down 22. New stage II pressure ulcer, coccyx 23. Postoperative bilateral pleural effusions, status post bilateral pleural chest tube placement Plan: 1. Continue aspirin, Plavix, statin, beta gaurav, Cozaar. Will increase beta gaurav therapy as tolerated. 2. Continue amiodorone for atrial fibrillation prophylaxis. No anticoagulation until all lines and tubes have been removed, especially epicardial pacemaker wires 3. Continue to hold Cardizem. Will reassess and add as tolerated. 4. Keep Newman catheter in place for accurate I&O. Newman catheter was changed on 11/14/2019. 5. Continue Optifoam dressing pressure ulcer per Dr. Diaz. Turn minimum every 2 hours. 6. Extubated yesterday, respiratory management per pulmonary critical care medicine. 7. Continue to monitor right and left pleural chest tube output. 8. Will monitor daily labs and chest x-rays. Elective replacement per protocol. 9. Continue Tylenol for pain management, hold narcotics and toradol. 10. GI/DVT prophylaxis. 11. Insulin management per primary care service. 12. Continue 40 mg Lasix q12 13. If patient aspirates, we can order Speech therapy for swallow evaluation. 14. Continue to avoid nephrotoxic agents. 15. Keep atrial and ventricular epicardial pacemaker wires in place until after interrogation of permanent pacemaker 16. Reorient as necessary. Continue to assess mental status 17. Continue antibiotics per infectious disease 18. Discontinue Precedex drip. 19. Discontinue arterial line. 20. Discontinue IV fluids. 21. More recommendations to follow based on patient's clinical course. Time with Patient: Greater than 30
--- NOTE | 2019-11-26 09:31 | P.PN ---
Subjective Progress Note Date: 11/26/19 Principal diagnosis: Coronary artery disease with unstable angina, and non-ST elevated PA, status post 5 vessel bypass grafting This is a 64-year-old male patient with coronary artery disease, noncompliant to medication. The patient came in with subendocardial infarction and cardiac catheterization showed diffuse coronary artery disease with critical stenosis. The patient underwent coronary artery bypass today. The patient underwent bypass 5 with GR to LAD, radial artery graft to acute marginal, saphenous finger after 2 posterior lateral and sick ration saphenous vein to first and second diagonal performed on cardiac pulmonary bypass with beating heart. Left atrial appendage was also added. The patient currently is in the intensive care unit. I centimeters in regards to the ICU. He was initially on a SIMV mode of ventilation at the rate of 12 with a tidal volume of 500 and FiO2 of 100% with a PEEP of 5 and a pressure support of 5. The blood gas showed a pH of 7.318 with a pCO2 of 49 and pO2 of 226. The chest x-ray postop showed volume overload with pulmonary vascular congestion and interstitial edema. The lines and tubes are all in good location. Based on all this, I increased the respiratory rate of 24. I do not FiO2 down to 60%. Current cardiac output is at 2.6 with an index of 5. The patient has 2 mediastinal 1 right pleural and 1 left pleural chest tube. Ultrasound of the sternal chest tubes has been around 150 mL since he arrived from the operating room. No evidence of any air leak. The patient is currently on a Cardizem drip and milrinone drip and the patient is on insulin drip for blood sugar control.he is well sedated. Is quite symptoms with the mechanical ventilator. Postoperative hemoglobin is at 8.2. Platelet count is down to 78. On today's evaluation of 11/09/2019, I'm seeing the patient for a follow-up. The patient was operated on yesterday and the patient underwent a five-vessel bypass surgery including a GR and the radial artery harvest. The patient was extubated within 6 hours and currently the patient is on oxygen by nasal cannula at 5 L. He is pleasantly confused this morning. He is able to sit up on a recliner. Hemodynamically, he did have some early of hypotension earlier this morning and for that reason the patient was given 750 mL of colloids and following that he was started on low-dose levo fed at 0.03 g per KG per minute. The patient remains on Primacor running at 0.125 g and the patient is also on Cardizem at 5 mg an hour. Insulin drip is running at 2.5 units an hour. Hemod ynamically, the patient's cardiac output is at 4.2 with an index of 2.2. The pulmonary artery pressure 28/12. CVP is at 11. Cardiac output is at 4.2. He is in his normal sinus rhythm. He has a backup VVI at the rate of 50. His chest x-rays showing small bilateral apical pneumothoraces. All of the chest tubes are in good location. The right and left pleural chest tube connected and they have drained approximately 130 mL over the past 8 hours. He is tender tubes are also connected and it has drained approximately 140 mL over the past 8 hours. The patient otherwise has no specific complaints. Sternum stable clean and intact. He is producing urine output in the order of 20-30 mL an hour. No other significant events overnight. Hemoglobin stable at 7.9. The platelet count improved to 102. On 11/10/2019, the patient is postop day #2. The patient is confused. He is nonverbal. He is not answering questions and is not following any commands. Upon watching him, I felt that the left side of the body slightly cachectic compared to the right. Nevertheless, the same as the patient was not cheered by the nursing staff been observing this patient longer to me. He has no prefer ential gaze toseizure activity. No reported shortness of breath or respiratory distress at this point in time. Mediastinal chest tubes and the pleural chest tubes are all in place. The patient has an AV epicardial pacer wire grounded to generator. As of yesterday, the patient was taken off the pressors. The patient is currently off the levo fed and he is off the Primacor. The patient also had the ALYX drains removed from the left lower extremity and arm. No other significant issues for now. No cardiac arrhythmias. No nausea. No vomiting. No emesis. He is resting comfortably in bed. The patient's hemoglobin is at 7.0. Was a causative 4.7. Diminished pulmonary vascular congestion and infiltration of the right lung base. There is resolution of the previously described bilateral pneumothoraces. On today's evaluation of 11/11/2019, the patient remains confused. I was told that he was able to say some few words. I was also told by the nursing staff that the patient was witnessed EXTREMITIES WITHOUT ANY LIMITATION IN PATIENT HAVING ANY FOCAL NEUROLOGICAL DEFICIT. NOTE THAT THE PATIENT EARLIER THIS MORNING WITH ATRIAL FIBRILLATION WITH RAPID VENTRICULAR RESPONSE. HIS HEART RATE WENT UP TO 180 beats per minute without any significant hypotension. That point, the patient was given amiodarone boluses and the patient received a total of 3 boluses prior to my arrival. He was also given 5 mg of IV Lopressor. Her, bilateral, the patient was still in atrial fibrillation. He was trying to hurt at times he thought it was going down. His baseline rhythm was atrial fibr illation and heart rate was in the range of 100-120. The patient denied having any chest pain. Sternum was stable treatment intact. No reported fever or chills. The mediastinal chest 11 already been removed yesterday. The right and the left pleural chest tubes are still in place and output is being noted. Chest x-ray from this morning showed adequate expansion of both lungs without evidence of any pneumothorax. No evidence of any pulmonary edema. The patient was being given Lasix 20 mg IV push every 12 hours. Hemoglobin from this morning was down to 6.7 and the patient was ordered to get a unit of packed RBC. Currently is postoperative #3 post 5 vessel coronary artery bypass surgery. On 11/12/2019 patient seen in follow-up in the intensive care unit, he is very restless on today's exam, although nursing reports some improvement in his neurological status, and apparently patient is answering questions appropriately, and he knows he is in the hospital, and he is given verbal r esponses to questions. he is awake and alert, he is restless, but appears to be in no acute distress, he is moving his legs and arms bilaterally, squirming in bed. Does not appear to be in any respiratory distress. He is currently on 5 L of oxygen, with pulse ox of 100%, hemodynamically patient is stable, no fever or chills. Lactate of Ringer's infusing at a rate of 40 ML per hour. Today's est x-ray has been reviewed showing increasing airspace opacity of the right upper lobe, similar prominent interstitial markings, no pneumothorax, no pleural effusions. Left pleural chest tube is in place, with a total output of 340 ML in the last 24 hours, right pleural chest tube put out 380 mL of serosanguineous thin output in the last 24 hours, media still chest tubes have been discontinued. Patient has produced 1.3 L and urine output in the last 24 hours. Junior catheter remains in place. Today's lab work has been reviewed, showing white blood cell count of 17.6, hemoglobin is 9.3, sodium of 138, potassium 3.8, chloride is 108, CO2 is 20, B1 is 39, creatinine is 1.17. She is in sinus arrhythmia with frequent PACs on the monitor, amiodarone drip has been switched to oral amiodarone 400 mg twice daily, patient is on oral Cardizem 30 mg every 6 hours, and oral metoprolol 50 mg twice daily. Blood cultures have shown no growth at the 24-hour elly. Patient has been afebrile. linux admin is at the bedside in view of confusion and agitation, Junior catheter still has hematuria, which is dark in color, yesterday's brain CT showed patchy. Ventricular and deep white matter changes, left greater than right which have progressed from 01/09/2019, and areas of subacute ischemia are not excluded, MRI can further evaluate, no acute intracranial hemorrhage or midline shift. On 11/17/2019 patient seen in follow-up in the intensive care unit, she is sedated, intubated, on mechanical ventilator, current vent settings are assist- control with a rate of 16, tidal and was 450, FiO2 is 40%, and PEEP of 5. This morning his blood gases reveal pO2 of 92, pCO2 34, pH is 7.47. Current IV drips include 0.9 normal saline at a rate of 5 ML per hour, and improving and is at 60 mics per kilo per minute, tube feedings are with vital high-protein at a rate of 54, with a goal of 54 with standard water flushes with 30 mL of water every 4 hours. Patient was given daily traction of sedation yesterday, he awoke, and reportedly follow commands, but quickly became very tachypneic and hypertensive and had to be placed back on mechanical ventilator. His chest x-ray shows stable findings, persistent central vascular congestion and bibasilar opacities. Small to moderate-sized bilateral pleural effusions, appear to be stable. Patient remains on IV Lasix at 40 mg every 12 hours, and he is very slightly negative, only 6 mL, however he did produced over 3 L in urine output in the last 24 hours. He is off the vasopressor support, his weight is stable, he does have some generalized edema involving his upper and lower extremities. Remains on empiric antibiotics in the form of cefepime and vancomycin. He is afebrile, his blood urine and sputum cultures have shown no growth thus far. Today's labs have been reviewed. His white blood cell is stable at 15, hemoglobin is 7.7, sodium is 136, the rest of electrolytes were within normal limits, B1 is 33, and creatinine is 1.04, his liver enzymes are coming down, AST is down to 130, ALT is 692, alk phos is fairly stable at 195, his pro-calcitonin level was elevated and 0.99, suggesting presence of bacterial infection. Patient has been afebrile, abdomen is soft, nontender, patient is tolerating tube feedings. His hematuria has cleared up. On 11/18/2019 patient seen in follow-up in the intensive care unit. Patient is still intubated, his sedation has been on hold since 7:00 this morning, patient is awake, he is following basic commands, squeezing with his left hand, however his right hand is flaccid, and patient is not able to squeeze with the right hand. His current vent settings are assist-control with a rate of 16, tidal volume is 450, FiO2 is 40%, and PEEP of 5. This is blood gases showed pO2 106, pCO2 35, and pH of 7.49. Currently on no drips other than 0.9 normal saline at a rate of KVO. Patient has been tolerating tube feedings. Yesterday we repeated his CT of the brain which showed no evidence of acute hemorrhage, areas of patchy low attenuation in the left parietal white matter previously noted on previous brain scan this could be on the basis of subacute ischemia. MRI of the brain was recommended, neurology consultation was requested and patient is suspected to have probable subacute stroke involving multiple patchy areas in the left MCA vascular territory consideration of cardioembolic source. Patient did have transient atrial fibrillation. Follow-up MRI and MRA of the brain will be done once the patient is extubated and is able to travel down to the MRI department. Today's chest x-ray shows diffuse bilateral pleural parenchymal changes, no pneumothorax. Consider pulmonary edema, or underlying pneumonia. So far blood and urine and sputum cultures remain negative. Patient is afebrile, hemodynamically he stable, empiric antibiotic coverage is with Zosyn, vancomycin has been discontinued, ID service is following. Patient is on IV Lasix at 40 mg every 12 hours. He has produced 2.7 L and urine output over last 24 hours, he is in -280 mL fluid balance. He seems to get slightly agitated at times, becomes hypertensive, today she is following commands, we will try to keep him off sedation, to fully assess his mentation and neurological status, we will repeat LFTs, and ammonia level. On 11/22/2019 patient seen in follow-up in the intensive care unit. To recap patient was admitted to the hospital on 11/07/2019, and he had his 5 vessel coronary artery bypass grafting surgery and 11/08/2019 and patient was extubated on postoperative day 0 on 11/08/2019. In the postoperative period patient developed altered mental status worsening respiratory failure, symptomatic b radycardia and had to be emergently reintubated on 11/12/2019 and weaned and extubated on 11/19/2019. Patient is suspected to have sustained a subacute stroke involving multiple patchy areas in the left MCA distribution. He has not been able to travel to the MRI department for his follow-up MRI. Patient was weaned from the mechanical ventilator and extubated on 11/19/2019 last week however developed worsening hypoxia, pulmonary edema and had to be reintubated on 11/20/2019. Today she seen in the intensive care unit, sedated on 30 mics per kilo per minute of propofol infusion, and 0.9 normal seen at a rate of 10 ML per hour, he is intubated current vent settings are assist-control with a rate of 16, tidal line was 450, FiO2 is 50% and PEEP of 5, this was blood gases show pO2 of 123, pCO2 38 and pH of 7.51. His chest x-ray shows diffuse bilateral infiltrates and pleural effusion, sizable pneumothorax, interstitial pattern was noted. Patient remains on Lasix at 40 mg every 12 hours, diuresing, and he has made at 7.4 L in urine output in last 24 hours, and he is in -1.5 L net fluid balance over last 24 hours. He is receiving tube feedings with Glucerna 1.5 at a rate of 75 with a goal of 75 ML per hour. Afebrile and hemodynamically stable in the last 24 hours, not requiring any vasopressor support, today's labs have been reviewed showing limited cell count within normal limits at 9.9, hemoglobin is 7.0, electrolytes are within normal limits, BUN of 38, creatinine is 1.17, liver enzymes have steadily been improving, and AST is 93, ALT is 286, alkaline phosphatase was 199, his last ammonia level was back on the and was normal at less than 9. Blood sputum and urine cultures have shown no growth so far. Empiric and pneumatic coverage is with Zosyn and vancomycin On 11/23/2019 patient seen in follow-up in the intensive care unit, he opens eyes to verbal stimulation, he is following simple commands, he squeezing with his left hand, his right hand is quite weak, and almost flaccid. He is nodding his head appropriately to verbal questioning. Does not appear to be in any distress, yesterday we stopped his propofol infusion and put the patient on Precedex infusion which is currently infusing at a rate of 0.3 mics per kilo per hour. 0.9 normal saline at a rate of 20 ML, and he is tolerating his tube feedings of vital 1.2 at a rate of 70 with a goal of 70 with standard water flushes. His current vent settings are assist control with a rate of 16, tidal line is 450, FiO2 40% and PEEP of 5. Sometime in the last 24 hours patient has converted to sinus bradycardia, currently remains in sinus bradycardia with a rate of 54. Patient is currently being paced at AAI mode at a rate of 80 BPM. Hemodynamic patient stable, not on any pressors. Chest x-ray has been reviewed showing diffuse bilateral infiltrates and pleural effusions bilaterally, no sizable pneumothorax. Yesterday's ultrasound the chest showed a 4.8 cm pocket on the right and 3.2 cm pocket on the left. he remains on IV Lasix of 40 mg every 12 hours, and he is slightly positive net fluid balance, +111 mL over last 24 hours. He did however produced 3.2 L in urine output over the last 24 hours. He is on empiric antibiotics with Zosyn and oral vancomycin for possibility of C. diff, all his culture data has been negative thus far. Did have a low-grade fever this morning with a temp of 99.7F. Today's labs have been reviewed showing white blood cell count of 8.8, hemoglobin of 8.3, platelet count is 388, electrolytes are within normal limits, BUN is 39 creatinine is 1.21. His blood gas has been reviewed showing pO2 of 82, pCO2 of 36 and pH of 7.52. Dobbhoff tube is in place through which the patient is receiving tube feedings. lung sounds are clear, diminished at the bases, abdomen is soft, nontender. On 11/24/2019 patient seen in follow-up in intensive care unit, patient remains intubated, sedated on mechanical ventilator current settings are assist-control with a rate of 16, tidal line is 450, FiO2 is 40% and PEEP of 5. This morning blood gas was reviewed showing pO2 of 66, pCO2 36, and pH is 7.5. Patient is currently on Precedex at 0.2 mics per kilo per hour, this was cut back from this morning from 0.5 mics per kilo per hour, 0.9 normal saline at a rate of 10, no vasoactive drips. Patient is on Zosyn for empiric antibiotic coverage, all culture data including blood culture sputum and urine cultures have been negative. She did have a low-grade fever this morning with a temp of 100.3F. He is receiving tube feedings with the vital AF at a rate of 78 with a goal of 70 and standard water flushes. She has a Dobbhoff tube inserted through which she is receiving nutritional support. Yesterday patient tolerated some pressure support trials with pressure support of 10 and CPAP at 5, for several hours, however at 7:30 in the evening apparently patient went into A. fib with RVR, and possibly developed a mucous plug, out to worsening shortness of breath, and was placed back on assist control mode of ventilation. Patient had been on oral amiodarone and metoprolol, he had since converted back to sinus bradycardia, this morning he is paced at a rate of 80 BPM in the AAI mode of pacing, and his underlying rhythm is sinus bradycardia with a rate of 52 BPM. Today's chest x- ray has been reviewed showing bilateral patchy increased attenuation within the lungs. Patient remains on Zosyn for antibiotic coverage, sputum has shown no growth. Today's labs have been reviewed showing white blood cell count of 10.0, hemoglobin is 7.8, sodium is 142, potassium 3.8, chloride is 108, CO2 is 28, BUN of 38, and creatinine is 1.10. And is following simple commands, he is profoundly weak. We'll proceed with pressure-support trials again today. On 11/25/2019 patient seen in follow-up in the intensive care unit, he is awake and alert, he is following all commands, he is moving both upper and lower extremities, no unilateral weakness noted on today's exam, he is making eye contact, he is following command, he denies any acute distress, he remains intubated, he has been on pressure-support trials for the last 24 hours, he is done very well, tolerated them very well, no signs of agitation, he has been maintained on Precedex at 0.5 mics per kilo per hour, no other drips were IV fluids. No vasoactive drips. Tube feedings are currently off, she was receiving them with the vital AF at a rate of 70. Tube feedings are on hold for possibility of permanent pacemaker insertion. Patient still has AV wires in his chest connected to a permanent pacemaker and he is pacemaker dependent as the underlying rhythm is still bradycardic sinus mechanism with a rate of 40 BPM, last night apparently there was an issue with capturing and there is a concern that patient will need a permanent pacemaker, is a current pacemaker leads are developing some issues with capture. He is currently 100% paced at a rate of 70 at a mode of AAI. Blood pressure is stable. Lung sounds are clear, diminished at the bases, today's chest x-ray has been reviewed showing improved aeration, no sizable pneumothorax or pleural effusion. Dobbhoff tube ET tube and b ilateral chest tubes remain in place. His right chest tube had 650 ML of thin serosanguineous output in last 24 hours, and left lateral chest tube had 830 mL of serosanguineous thin output in the last 24 hours, Junior catheter is in place, patient is producing good amount of urine, he remains on Lasix of 40 mg every 12 hours, he is in -2.4 L fluid balance over the last 24 hours. Today's labs have been reviewed showing limited cell count of 8.6, hemoglobin of 8.0, sodium is 142, potassium is 3.8, chloride is 110. Patient's blood gas was reviewed showing pO2 of 134, pCO2 of 38, and pH of 7.47, this was done on FiO2 of 40% on pressure-support of 10. On 11/26/2019 patient seen in follow-up in intensive care unit, it yesterday following his permanent pacemaker insertion procedure patient returned to the unit, he proceeded to wean on pressure-support trials, he did quite well, and was subsequently extubated. Today he is awake and alert, he is oriented to person and place, disoriented to time, he is following all commands, he is moving all 4 extremities, strength appears to be equal on bilateral sides, he is on 5 L the pulse ox of 97%, appears to be in no acute distress, is a paced rh ythm on the monitor, he is status post permanent pacemaker insertion, his left upper chest incision is clean dry and intact, soft, no evidence of hematoma, with a surgical dressing, he is afebrile, hemodynamically patient is stable, he is not on any IV fluids. His chest x-ray has been reviewed showing mildly increased pulmonary vascular congestion. No evidence of any respiratory distress, lung sounds reveal clear breath sounds bilaterally. Following the extubation patient was given the bedside swallow evaluation which he successfully passed. Today's labs have been reviewed, showing white blood cell count of 8.7, hemoglobin of 8.0, platelet count is 357, sodium is 142, potassium 3.7, chloride is 110, B1 is 34, creatinine is 0.86. Blood, urine and sputum cultures are negative thus far. Continues on IV Lasix 40 mg every 12 hours he is in -1.5 L over last 24 hours. Right and left chest tubes remain in place, with 180 out of the left chest tube in the 180 out of the right chest above the last 24 hours no air leak. Apparently they will remain in place per CT surgery. FMS is in place, and patient continues to have liquid stool output, he continues on oral vancomycin for possibility of C. diff colitis. Objective - Vital Signs Vital signs: Vital Signs Temp 98.9 F 11/26/19 04:00 Pulse 77 11/26/19 09:03 Resp 23 11/26/19 07:00 BP 109/64 11/26/19 07:00 Pulse Ox 97 11/26/19 04:00 Intake & Output 11/25/19 11/26/1920 18:59 06:59 18:59 Intake Total 354.732 536.000 13 Output Total 1065 1365 Balance -710.268 -829.000 13 Weight 85.1 kg 80.5 kg Intake: IV 203 156 13 .9NS @ 10 ml/hr 60 120 10 Normal Saline Pressure 18 36 3 Bag Intake, IV Titration 81.732 100.000 Amount Dexmedetomidine/0.9% NaCl 81.732 100.000 (Pmx) 400 mcg In Empty Bag 1 bag @ 0.3 MCG/KG/HR 6.675 mls/hr IV .[id number] [facility] Rx#:[id number] Tube Feeding 70 280 Output: Chest Tube Drainage 360 left lateral chest tube 180 right lateral chest tube 180 Urine 705 1365 Other: Voiding Method Indwelling Catheter Indwelling Catheter ABP, PAP, CO, CI - Last Documented Arterial Blood Pressure 119/52 Pulmonary Artery Pressure 30/17 Cardiac Output 4.5 Cardiac Index 2.3 - Exam GENERAL EXAM: Awake, alert, oriented to person and place 64-year-old white male, on 5 L per nasal cannula with a pulse ox of 97% patient is awake, fol lowing simple commands, off Precedex , patient is following all commands, she is squeezing with both hands, strength appears equal in both hands, he is wiggling his toes on command, is making eye contact and following command HEAD: Normocephalic/atraumatic. EYES: Normal reaction of pupils, equal size. Conjunctiva pink, sclera white. NOSE: Clear with pink turbinates. Patient has a Dobbhoff feeding tube in place with tube feedings infusing THROAT: No erythema or exudates. NECK: No masses, no JVD, no thyroid enlargement, no adenopathy. CHEST: No chest wall deformity. Symmetrical expansion. Midsternal incision is clean dry and intact, interval removal of chest tubes, AV wires remain in place to external pacemaker, left upper chest incision at the site of the permanent pacemaker insertion is clean dry and intact. LUNGS: Equal air entry with no crackles, wheeze, rhonchi or dullness. CVS: regular rate and rhythm, normal S1 and S2, no gallops, no murmurs, no rubs, ABDOMEN: Soft, nontender. No hepatosplenomegaly, normal bowel sounds, no guarding or rigidity. EXTREMITIES: No clubbing, no edema, no cyanosis, 2+ pulses and upper and lower extremities. MUSCULOSKELETAL: Muscle strength and tone normal. SPINE: No scoliosis or deformity SKIN: No rashes CENTRAL NERVOUS SYSTEM: Patient is awake and following simple commands - Labs CBC & Chem 7: 11/26/19 06:30 11/26/19 06:30 Labs: Abnormal Lab Results - Last 24 Hours (Table) 11/25/19 11/25/19 11/25/19 Range/Units 13:45 16:18 19:57 RBC (4.30-5.90) m/uL Hgb (13.0-17.5) gm/dL Hct (39.0-53.0) % MCV (80.0-100.0) fL MCHC (31.0-37.0) g/dL Lymphocytes # (Manual) (1.0-4.8) k/uL Chloride (98-107) mmol/L BUN (9-20) mg/dL Glucose (74-99) mg/dL POC Glucose (mg/dL) 111 H 139 H 185 H (75-99) mg/dL 11/26/19 11/26/19 11/26/19 Range/Units 00:09 05:10 05:54 RBC (4.30-5.90) m/uL Hgb (13.0-17.5) gm/dL Hct (39.0-53.0) % MCV (80.0-100.0) fL MCHC (31.0-37.0) g/dL Lymphocytes # (Manual) (1.0-4.8) k/uL Chloride (98-107) mmol/L BUN (9-20) mg/dL Glucose (74-99) mg/dL POC Glucose (mg/dL) 232 H 71 L 64 L (75-99) mg/dL 11/26/19 11/26/19 11/26/19 Range/Units 06:17 06:30 06:30 RBC 2.61 L (4.30-5.90) m/uL Hgb 8.0 L (13.0-17.5) gm/dL Hct 26.3 L (39.0-53.0) % MCV 100.6 H (80.0-100.0) fL MCHC 30.4 L (31.0-37.0) g/dL Lymphocytes # (Manual) 0.78 L (1.0-4.8) k/uL Chloride 110 H (98-107) mmol/L BUN 34 H (9-20) mg/dL Glucose 115 H (74-99) mg/dL POC Glucose (mg/dL) 163 H (75-99) mg/dL Assessment and Plan Plan: Assessment: 1 coronary artery disease without stable angina and non-STEMI. The patient underwent five-vessel bypass surgery on 11/08/2019. CABG 5 with GR to LAD, left radial artery to obtuse marginal, saphenous vein to posterior lateral, sequential saphenous vein to first and second diagonal performed on cardiopulmonary bypass with beating heart. Epi-aortic ultrasound and ligation of left atrial appendage with Atriclip. The patient is postop day #18. Hemodynamically stable. 2 recurrent acute hypoxic respiratory failure, multifactorial, patient was initially intubated for the original surgery on 11/08/2019 with extubation on 11/08/2019, patient was re-intubated on 11/12/2019, for symptomatic bradycardia, worsening lactic acidosis, of unclear etiology. Patient was successfully weaned and extubated on 11/19/2019, and subsequently reintubated on 11/20/2019 for worsening hypoxemia related to pulmonary edema and A. fib with RVR. Antibiotics have been given empirically, cultures remain negative. 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 On 11/22/2019 patient is in A. fib with slightly tachycardic rate. On 11/23/2019 patient had converted to sinus bradycardia, with a rate of 40, and patient is being paced at AAI mode with a rate of 70 BPM 5 blood loss anemia , expected outcome of surgery, and this is likely of blood loss anemia. Patient transfused with 4 units of blood this admission 6 COPD with an FEV1 of 60% of predicted at baseline 7 Peripheral vascular disease with prior peripheral stent placements 8 Right carotid artery stenosis at 50-69% 9 History of marijuana use 10 Diabetes mellitus, type II, insulin drip for blood sugar control, running at 1.5 units per hour. 11 History of bladder cancer status post radiation/chemotherapy and subsequent surgery 12 History of noncompliance 13 liquid diarrhea, patient is on oral vancomycin for possibility of C. diff, although this was not tested related to recent history of laxative use Plan: Continue current medical treatment continued same dose of IV Lasix, maintain aspiration precautions, patient is tolerating activation quite well, hemodynamically stable, mentation seems to have significantly improved, he is answering questions appropriately, he is disoriented to time, but he is oriented to person and place, provide frequent reorientation maintain safety precautions, today's chest x-ray has been reviewed showing increased pulmonary vascular congestion, continue same dose IV diuretics, all culture data remains negative thus far, patient has been afebrile, provide incentive spirometer, encourage deep breathing and coughing, passes swallow evaluation and that can be advanced as tolerated. We will continue to closely monitor the patient in the intensive care unit. I performed a history & physical examination of the patient and discussed their management with my nurse practitioner, Elva Newberry. I reviewed the nurse practitioner's note and agree with the documented findings and plan of care. Lung sounds are positive for clear breath sounds. The findings and the impression was discussed with the patient. I attest to the documentation by the nurse practitioner. Critical care time is greater then 30 minutes Time with Patient: Greater than 30
[2019-11-26] MEDS: CHOLESTYRAMINE (WITH SUGAR) 4 GM PACKET PO SCH ×4 (09:42→20:06)
[2019-11-26] MEDS: ASPIRIN 325 MG TAB PO SCH (09:43)
[2019-11-26] MEDS: FERROUS SULFATE ORAL ELIXIR 300 MG/5 ML CUP PO SCH ×2 (09:44→17:27)
[2019-11-26] MEDS: METOPROLOL TARTRATE 25 MG TAB PO SCH ×2 (09:44→20:07)
[2019-11-26] MEDS: CLOPIDOGREL 75 MG TAB PO SCH (09:44)
[2019-11-26] MEDS: NYSTATIN 100,000 UNIT/ML SUSP 500,000 UNIT/5 ML CUP PO SCH ×4 (09:44→20:08)
[2019-11-26] MEDS: PANTOPRAZOLE 40 MG TABLET PO SCH (09:44)
[2019-11-26] MEDS: ATORVASTATIN 40 MG TAB PO SCH (09:44)
[2019-11-26] MEDS: AMIODARONE 200 MG TAB PO SCH ×2 (09:44→20:07)
[2019-11-26] MEDS: ASCORBIC ACID 500 MG TAB PO SCH ×2 (09:47→17:27)
[2019-11-26] MEDS: FUROSEMIDE 10 MG/ML 4 ML VIAL IV SCH ×2 (09:52→20:07)
[2019-11-26] MEDS: CHLORHEXIDINE GLUCONATE 15 ML CUP MUCOUS MEM SCH (09:52)
[2019-11-26] MEDS: ACETAMINOPHEN TAB 500 MG TAB PO PRN (11:31)
[2019-11-26] MEDS: LOSARTAN 25 MG TAB PO SCH (11:31)
[2019-11-26 11:50] LABS: Glucose,Whole Blood 177 mg/dL (75-99)
--- NOTE | 2019-11-26 15:48 | PN ---
PROGRESS NOTE FOLLOW-UP NOTE: This patient has known CAD and is status post CABG, status post prolonged hospital recovery, respiratory failure, underlying bradycardia, status post permanent pacemaker yesterday. His pacemaker is functioning normally. On exam, heart rate is 70 beats per minute. Blood pressure is 110/60. Respiratory rate is 18. Chest exam reveals diminished air entry at the bases. Heart exam reveals first and second heart sounds. No gallop. Abdomen is soft. Examination of extremities did not reveal any edema. Medications include Cordarone 200 b.i.d., Lipitor, Lasix, Lopressor. ASSESSMENT: 1. Coronary artery disease, status post coronary artery bypass grafting. 2. Bradycardia, status post permanent pacemaker. The patient is doing better. MMODL / IJN: [id number] /
--- NOTE | 2019-11-26 16:16 | P.PN ---
Subjective Progress Note Date: 11/26/19 Principal diagnosis: Patient is a vpcikpwo-[id number]-rhj male was recently discharged from the hospital came back in with the chest pain pressure-like sensation lasted for a few hours nonexertional did have elevated troponins. Patient had a triple-vessel disease patient is scheduled to undergo coronary artery bypass grafting on Friday went home started smoking again started having chest pain. Chest x-ray was read as pulmonary edema. It is not elevated patient clinically doesn't have any JVD or crackles or wheezing. 11/09/2019 Patient is status post CABG he was extubated the last night. Patient is presently on norepinephrine, milrinone, IV insulin. Patient still has a Tyler- Juni in place most of the management is being done by cardiac thoracic surgery patient was bit confused earlier today doing well now. 11/10/2019 Patient is still confused as per the family his confusion is better patient is a low-grade fever probably because of atelectasis a lot and blood cultures. Patient received Lasix for pulmonary edema, patient's mediastinal chest use with remote patient still has left pleural chest tubes Review of systems: Unable to obtain as patient is tired and sleepy All inpatient medications were reviewed and appropriate changes in these medications as dictated in the interval history and assessment and plan. 11/11/2019 Patient is seen and evaluated and follow-up currently remains in the ICU and is being closely monitored. Since hemoglobin was found to be 6.7 this morning and is currently receiving 1 unit of PRBCs. Potassium is 4.4, creatinine is 1.09, magnesium is 2.3. Patient went into atrial fibrillation with RVR and is being maintained on amiodarone drip and will transition to oral medications. Patient continues to have chest tubes along with indwelling Junior catheter which shows some hematuria as patient pulled it out. Patient has been afebrile with intermittent low-grade temps 99.7F and white count today is 14.1. Patient remains on an insulin drip and will continue at this time. Will continue to follow along closely with cardio thoracic surgery. 11/12/2019 Patient is seen and evaluated and follow-up continues to be closely monitored in the ICU. Patient is currently restless and seems to be having some shortness of breath. Patient is placed on nasal cannula although was mouth breathing and is currently on 5 L of oxygen. Patient was on insulin drip which has been discontinued and patient will be continued on sliding scale as patient now has a diet ordered although isn't eating very much. Patient continues to be confused and not following commands. Patient had a chest x-ray today status post chest tube removal showing no evidence of residual pneumothorax. Patient underwent brain CT yesterday showing patchy periventricular and deep white matter changes, left greater than right that have progressed since 01/19/2019 with demyelinating disease or other infectious inflammatory etiologies are possible, and no acute intracranial hemorrhage or midline shift noted. 11/13/2019 Patient became to Make and found to have metabolic acidosis with respiratory compensation progressively got fatigued event into respiratory failure subsequently intubated patient received the bicarbonate infusion for severe metabolic acidosis and patient had lactic acidosis with the lactic acid going up to 11 which came down to 1.5 patient is also started on pressor support with Levophed on mechanical ventilator with tidal volume of 450 set up respiratory of 24 FiO2 of 50% PEEP of 5 urine output is fairly. Chest x-ray showing mild pulmonary vascular congestion with the pleural effusions bilaterally 11/14/2019 Patient the did not tolerate weaning trial. Patient remains on ventilatory support. Patient is a one dose of vancomycin patient is presently on IV Zosyn for fevers although etiology of fevers is not clear at this time. Patient blood sugars are high receiving 3 units every 4 hours as per sliding scale patient wi ll be started on long-acting insulin 15 units and continue with sliding scale Review of systems: Unable to obtain as patient is tired and sleepy All inpatient medications were reviewed and appropriate changes in these medications as dictated in the interval history and assessment and plan. 11/15/2019 Patient is seen and evaluated and follow-up and currently remains in the ICU on mechanical ventilation and is being closely monitored. Patient continues to have a Dobbhoff for nutrition and remains on long-acting Levemir 15 units at bed along with sliding scale and will continue at this time. Patient is currently maintained on IV vancomycin along with Zosyn and infectious disease has been consulted. Patient is afebrile for 24 hours. White blood count is trending down and is currently 15.3 today. 11/16/2019 Patient is seen and evaluated in follow-up continues to be on a mechanical ve ntilator and intubated with sedation and is being closely monitored in the ICU. Patient continues to have elevated blood sugars and have increased the long- acting Levemir to 20 units and will continue with sliding scale and added 5 units every 4 hours For tighter glycemic control. Patient remains on tube feedings at goal via a Dobbhoff system. Multiple medical consultations following. Patient is maintained on IV vancomycin and cefepime and will continue at this time. White blood count slowly trending down at 15.2 today. Chest x-ray showing some pleural effusions and a chest ultrasound was performed showing bilateral pleural effusions although small in size and were not marked. 11/17/2019 Patient is seen and evaluated in follow-up currently continued on a mechanical ventilator and intubated and continues to be closely monitored in the ICU. Sedation has been on hold and patient eyes are opening Although not following commands. patient underwent head CT showing no evidence of acute hemorrhage with areas of patchy low attenuation left parietal white matter as previously noted and are of indeterminate age and could possibly be on the basis of subacute ischemia with no significant interval change. Degenerative and suspect remote ischemic change also noted and correlate with MRI as clinically warranted. Neurology was consulted and pending at this time. Multiple medical consultations following. Patient is currently maintained on cefepime and vancomycin and will continue at this time. White blood count elevated at 15.0 With hemoglobin of 7.7. Current creatinine is 1.04. Patient remains afebrile. Will continue to monitor closely. 11/18/2019 Patient is seen and evaluated in follow-up today currently continues to be in the ICU being closely monitored. Remains intubated although have been holding propofol and patient appears to be following commands with the left extremity although right upper extremity is flaccid. Neurology evaluated the patient and recommended MRI and this will be done once patient is extubated and more stable. CT of the head findings are probable of a subacute stroke involving multiple patchy areas in the left MCA vascular territory with the possibility of a cardio embolic source. Patient did have transient atrial fibrillation. There is right ICA stenosis of 50-69% on the carotid Doppler. Patient's 2-D echo showed no obvious embolic source. Patient remains on aspirin and Plavix along with statin and will continue at this time. Attempts to use Precedex as patient is off propofol at this time. Multiple medical consultations following. Patient continues on IV antibiotics in the form of cefepime and vancomycin has been discontinued. Infectious disease is following. Today's chest x-ray shows diffuse bilateral pleural parenchymal changes correlate for ards, pulmonary edema, or diffuse pneumonia and patient is maintained on IV Lasix and will continue at this time. White count is 14.7 today, hemoglobin is 7.3. Current creatinine is 1.05 with a BUNs of 33. Ammonia level less than 9. Will continue to monitor closely. Review of systems: Unable to obtain as patient is intubated and sedated 11/19/2019 Patient is seen and evaluated and currently remains in the ICU being closely monitored. Patient was just recently extubated and tolerated well. Patient remains off sedation and continues to be on a small dose of Precedex. Patient also continues with a Dobbhoff tube feedings system and will continue at this ti me. Patient is awake and responding appropriately to simple commands. Right and left upper extremity sales training coordinator strength noted. Right sales training coordinator strength 3-5, left 4- 5. Patient is not talking as of yet although did mumble when asked a question and knodded head yes appropriately. Also medical consultations following. Patient is maintained on IV antibiotics and will continue at this time. White blood count slowly trending down and is currently 13.3. She remains on IV Lasix and current creatinine is 1.15 with a BUNs of 38. Sodium is 140. Patient is maintained on long-acting along with every 4 hours coverage and sliding scale and will continue at this time. Liver function slowly trending down. Patient is currently maintained on 4 L via nasal cannula. 11/20/19, patient is seen and evaluated in ICU; extubated yesterday. Patient is awake, follows very simple instructions, remains on 8 L high flow nasal cannula, O2 saturations 94%. Patient is hemodynamically stable not requiring any inotropes or pressors. Patient had an episode of A. fib with RVR yesterday and he received 2 boluses of amiodarone. Presently in normal sinus rhythm. Patient follows again simple instructions, but remains confused, oriented 1 to person. Continues to have Dobbhoff tube in place, and receiving enteral feeding. Remains on antibiotics in the form of Zosyn for presumptive aspiration. Laboratory review shows a white blood count of 20.5, hemoglobin 7.4; chemical profile significant for mild elevation in BUN of 36 Patient will continue to be monitored in ICU with empiric IV antibiotics; plan to wean off O2 as able; patient remains on aspirin, Plavix and Cardizem; diuretic therapy was continued Patient will remain on Dobbhoff tube feeding with plan to increase ambulation as possible 11/21/2019 Patient is seen and evaluated in ICU; patient reintubated yesterday after developing acute respiratory distress after developing atrial fibrillation with RVR which was treated with multiple medications including Cardizem drip and eventually metoprolol was increased to 50 mg 3 times a day; patient became bradycardic and developed pulmonary edema; patient remains sedated with propofol; CT angiogram of the chest was done which was negative for PE; chest x- ray shows improved pulmonary edema Patient remains on aspirin, Plavix and diuretics; continue with empiric antibiotic therapy; remains on nutritional support with Glucerna 11/22/2019 Patient is seen and evaluated in ICU; remains intubated and mechanically ventilated; patient had repeat chest x-ray this morning showing diffuse bilateral infiltrates and pleural effusion along with pneumothorax; patient remains on IV Lasix and is diuresing well; remains on tube feeding in form of Glucerna at rate of 75 mL per hour; blood pressure is stable without any pressor support; patient remains on IV antibiotics in the form of Zosyn and vancomycin; cultures have been negative so far 11/23/2019 Patient is seen and evaluated in follow up and continues to be in the ICU being closely monitored. Patient has been intubated and is currently sedated as patient will be undergoing bilateral chest tube placement for bilateral pleural effusions. Patient is maintained on IV lasix and will continue. Patient continues to be monitored closely while on IV antibiotics and will continue at this time. Will repeat am labs. 11/24/2019 Patient is seen and evaluated and follow-up currently remaining in the ICU slightly sedated on Precedex. Patient to continue with trials on the CPAP. Patient was able to follow simple commands with the upper extremities. Patient underwent bilateral chest tube placement and is being closely monitored. Hemoglobin is 7.8 today. Minimal output noted on the chest tubes today. Patient's respiratory status slightly improved status post chest tube placement. Patient is currently on Precedex for anxiety. Patient had an episode of a mucous plug last night and was suctioned by respiratory and resolved. Patient continues on tube feedings with the possibility and discussion of PEG and trach tube placement in the near future. 11/25/2019 Patient is seen today in follow-up currently remains in the ICU being closely monitored. Patient will be undergoing pacemaker placement today. BMP is within normal limits today. Patient continues to be intubated and remains on Precedex and will continue at this time. Patient continues with bilateral chest tubes along with indwelling Junior catheter. Feedings have been on hold for the procedure this morning. Will continue to monitor blood sugars closely. Repeat a.m. labs. 11/26/2019 Patient is seen in evaluated in follow-up and continues to be closely monitored in the ICU. Patient continues to have bilateral chest tubes to low intermittent suction. Patient was recently extubated and is maintained on 4 L via nasal cannula. Patient is awake alert and oriented 2-3 and answering questions appropriately. patient is status post permanent pacemaker placement yesterday. patient continues on antibiotics in the form of oral vancomycin for possible C. diff. today's chest x-ray shows pulmonary vascular congestion and patient is maintained on IV Lasix twice daily. will continue to monitor closely. Review of systems: constitutional: No reports of fatigue, fevers, or chills Cardiovascular: No reports of chest pain or palpitations Respiratory: No reports of shortness of breath or cough GI: No reports of nausea, vomiting, or diarrhea : No reports of dysuria or retention neurovascular: report some weakness, reports of numbness Active Medications Acetaminophen (Tylenol Tab) 1,000 mg PO Q6HR PRN PRN Reason: Fever and/ or Pain Last Admin: 11/26/19 11:31 Dose: 1,000 mg Documented by: Albuterol/Ipratropium (Duoneb 0.5 Mg-3 Mg/3 Ml Soln) 3 ml INHALATION RT-Q2H PRN PRN Reason: Shortness Of Breath Or Wheezing Albuterol/Ipratropium (Duoneb 0.5 Mg-3 Mg/3 Ml Soln) 3 ml INHALATION RT-QID COUNTS INCLUDE 234 BEDS AT THE [facility] Last Admin: 11/26/19 11:43 Dose: 3 ml Documented by: Amiodarone HCl (Cordarone) 200 mg PO BID COUNTS INCLUDE 234 BEDS AT THE [facility] Last Admin: 11/26/19 09:44 Dose: 200 mg Documented by: Ascorbic Acid (Vitamin C) 500 mg PO BID-W/MEALS COUNTS INCLUDE 234 BEDS AT THE [facility] Last Admin: 11/26/19 09:47 Dose: 500 mg Documented by: Aspirin (Aspirin) 325 mg PO DAILY COUNTS INCLUDE 234 BEDS AT THE [facility] Last Admin: 11/26/19 09:43 Dose: 325 mg Documented by: Atorvastatin Calcium (Lipitor) 40 mg PO DAILY COUNTS INCLUDE 234 BEDS AT THE [facility] Last Admin: 11/26/19 09:44 Dose: 40 mg Documented by: Benzocaine/Menthol (Cepacol Lozenge) 1 each MUCOUS MEM Q2H PRN PRN Reason: Sore Throat Bisacodyl (Dulcolax) 10 mg RECTAL DAILY PRN PRN Reason: Constipation Chlorhexidine Gluconate (Peridex) 15 ml MUCOUS MEM BID COUNTS INCLUDE 234 BEDS AT THE [facility] Last Admin: 11/26/19 09:52 Dose: Not Given Documented by: Cholestyramine Resin (Questran) 4 gm PO ACHS COUNTS INCLUDE 234 BEDS AT THE [facility] Last Admin: 11/26/19 09:42 Dose: 4 gm Documented by: Clopidogrel Bisulfate (Plavix) 75 mg PO DAILY COUNTS INCLUDE 234 BEDS AT THE [facility] Last Admin: 11/26/19 09:44 Dose: 75 mg Documented by: Ferrous Sulfate (Feosol) 300 mg PO BID-W/MEALS COUNTS INCLUDE 234 BEDS AT THE [facility] Last Admin: 11/26/19 09:44 Dose: 300 mg Documented by: Furosemide (Lasix) 40 mg IV Q12HR COUNTS INCLUDE 234 BEDS AT THE [facility] Last Admin: 11/26/19 09:52 Dose: 40 mg Documented by: Heparin Sodium (Porcine) (Heparin) 5,000 unit SQ Q8HR COUNTS INCLUDE 234 BEDS AT THE [facility] Last Admin: 11/26/19 09:44 Dose: 5,000 unit Documented by: Insulin Aspart (Novolog) 0 unit SQ Q4HR COUNTS INCLUDE 234 BEDS AT THE [facility]; Protocol Last Admin: 11/26/19 12:09 Dose: 2 unit Documented by: Insulin Aspart (Novolog) 5 unit SQ Q4HR COUNTS INCLUDE 234 BEDS AT THE [facility] Last Admin: 11/26/19 12:09 Dose: 5 unit Documented by: Insulin Detemir (Levemir) 20 unit SQ HS COUNTS INCLUDE 234 BEDS AT THE [facility] Last Admin: 11/25/19 20:21 Dose: 20 unit Documented by: Losartan Potassium (Cozaar) 25 mg PO DAILY COUNTS INCLUDE 234 BEDS AT THE [facility] Last Admin: 11/26/19 11:31 Dose: 25 mg Documented by: Magnesium Hydroxide (Milk Of Magnesia) 2,400 mg PO BID PRN PRN Reason: Constipation Metoprolol Tartrate (Lopressor) 25 mg PO BID COUNTS INCLUDE 234 BEDS AT THE [facility] Last Admin: 11/26/19 09:44 Dose: 25 mg Documented by: Miscellaneous Information (Magnesium Per Protocol) 1 each MISCELLANE DAILY PRN; Protocol PRN Reason: Per Protocol Miscellaneous Information (Potassium Per Protocol) 1 each MISCELLANE DAILY PRN; Protocol PRN Reason: Per Protocol Miscellaneous Information (Phosphorus Per Protocol) 1 each MISCELLANE DAILY PRN; Protocol PRN Reason: Per Protocol Nystatin (Mycostatin Oral Susp) 500,000 unit PO QID COUNTS INCLUDE 234 BEDS AT THE [facility] Last Admin: 11/26/19 09:44 Dose: 500,000 unit Documented by: Ondansetron HCl (Zofran) 4 mg IVP Q6HR PRN PRN Reason: Nausea And Vomiting Pantoprazole Sodium (Protonix) 40 mg PO AC-BRKFST COUNTS INCLUDE 234 BEDS AT THE [facility] Last Admin: 11/26/19 09:44 Dose: 40 mg Documented by: Quetiapine Fumarate (Seroquel) 25 mg PO BID PRN PRN Reason: Agitation Sodium Chloride (Saline Flush) 10 ml IV BID COUNTS INCLUDE 234 BEDS AT THE [facility] Last Admin: 11/26/19 09:51 Dose: 10 ml Documented by: Vancomycin HCl (Vancomycin Oral Solution) 250 mg PO Q6HR COUNTS INCLUDE 234 BEDS AT THE [facility] Last Admin: 11/26/19 11:53 Dose: 250 mg Documented by: Objective - Vital Signs Vital signs: Vital Signs Temp 98.9 F 11/26/19 04:00 Pulse 72 11/26/19 11:55 Resp 23 11/26/19 07:00 BP 109/64 11/26/19 07:00 Pulse Ox 97 11/26/19 04:00 Intake & Output 11/25/19 11/26/19 11/26/19 18:59 06:59 18:59 Intake Total 354.732 536.000 13 Output Total 1065 1365 Balance -710.268 -829.000 13 Weight 85.1 kg 80.5 kg Intake: IV 203 156 13 .9NS @ 10 ml/hr 60 120 10 Normal Saline Pressure 18 36 3 Bag Intake, IV Titration 81.732 100.000 Amount Dexmedetomidine/0.9% NaCl 81.732 100.000 (Pmx) 400 mcg In Empty Bag 1 bag @ 0.3 MCG/KG/HR 6.675 mls/hr IV .[id number] COUNTS INCLUDE 234 BEDS AT THE [facility] Rx#:[id number] Tube Feeding 70 280 Output: Chest Tube Drainage 360 left lateral chest tube 180 right lateral chest tube 180 Urine 705 1365 Other: Voiding Method Indwelling Catheter Indwelling Catheter ABP, PAP, CO, CI - Last Documented Arterial Blood Pressure 119/52 Pulmonary Artery Pressure 30/17 Cardiac Output 4.5 Cardiac Index 2.3 - Exam Head: Atraumatic, normocephalic, Recently extubated, awake, alert and oriented 2-3. Temp is 98.9F, pulse is 60, respirations are 23, blood pressure is 109/64, oxygen saturation is 97% on 5 L of high flow nasal cannula HEENT:Neck is supple. No neck masses. No thyromegaly. No JVD. Moist mucous membranes, PERRLA, EOMI, no icterus. Chest: Symmetrical chest expansion, crackles at the bases no rhonchi and no wheezes. bilateral chest tubes noted on the right and left Cardiac Exam: Normal S1 and S2, no S3 gallop, no murmur. Abdomen: Soft, nontender, no megaly, no rebound, no guarding, normal bowel sounds. Extremities: No clubbing, no edema, no cyanosis. Neurological Exam: awake, alert and oriented 2-3, moving all 4 extremities with the right more weak than the left, diffusely weak - Labs CBC & Chem 7: 11/26/19 06:30 11/26/19 06:30 Labs: Abnormal Lab Results - Last 24 Hours (Table) 11/25/19 11/25/19 11/25/19 Range/Units 13:45 16:18 19:57 RBC (4.30-5.90) m/uL Hgb (13.0-17.5) gm/dL Hct (39.0-53.0) % MCV (80.0-100.0) fL MCHC (31.0-37.0) g/dL Lymphocytes # (Manual) (1.0-4.8) k/uL Chloride (98-107) mmol/L BUN (9-20) mg/dL Glucose (74-99) mg/dL POC Glucose (mg/dL) 111 H 139 H 185 H (75-99) mg/dL 11/26/19 11/26/19 11/26/19 Range/Units 00:09 05:10 05:54 RBC (4.30-5.90) m/uL Hgb (13.0-17.5) gm/dL Hct (39.0-53.0) % MCV (80.0-100.0) fL MCHC (31.0-37.0) g/dL Lymphocytes # (Manual) (1.0-4.8) k/uL Chloride (98-107) mmol/L BUN (9-20) mg/dL Glucose (74-99) mg/dL POC Glucose (mg/dL) 232 H 71 L 64 L (75-99) mg/dL 11/26/19 11/26/19 11/26/19 Range/Units 06:17 06:30 06:30 RBC 2.61 L (4.30-5.90) m/uL Hgb 8.0 L (13.0-17.5) gm/dL Hct 26.3 L (39.0-53.0) % MCV 100.6 H (80.0-100.0) fL MCHC 30.4 L (31.0-37.0) g/dL Lymphocytes # (Manual) 0.78 L (1.0-4.8) k/uL Chloride 110 H (98-107) mmol/L BUN 34 H (9-20) mg/dL Glucose 115 H (74-99) mg/dL POC Glucose (mg/dL) 163 H (75-99) mg/dL 11/26/19 Range/Units 11:49 RBC (4.30-5.90) m/uL Hgb (13.0-17.5) gm/dL Hct (39.0-53.0) % MCV (80.0-100.0) fL MCHC (31.0-37.0) g/dL Lymphocytes # (Manual) (1.0-4.8) k/uL Chloride (98-107) mmol/L BUN (9-20) mg/dL Glucose (74-99) mg/dL POC Glucose (mg/dL) 177 H (75-99) mg/dL Assessment and Plan Assessment: -Coronary artery disease and non-ST elevation myocardial infarction status post CABG 5 -status post permanent pacemaker placement -bilateral pleural effusions status post bilateral chest tube placement of the left and right -Altered mental status most likely secondary to metabolic encephalopathy suspected, CVA, please refer to neurology evaluation. -New onset atrial fibrillation and RVR; remains rate controlled on amiodarone. -Type 2 diabetes; continue with Levemir 20 units subcu daily at bedtime; monitor Accu-Cheks every before meals and at bedtime with insulin sliding scale. -Peripheral vessel occlusive disease with prior peripheral stent placement. -Moderate severe COPD FEV1 of 60%; not in exacerbation; continue with bronchodilator nebulizer treatment and home inhaler therapy. -Acute kidney injury and acute shock liver secondary to hypotension, improving -DVT prophylaxis; subcu heparin -CODE STATUS; full code Plan: Patient to continue with current medications, management, and symptomatic treatment. patient was recently extubated yesterday and continues with bilateral chest tube for bilateral pleural effusions. Patient continues on IV lasix at this time. Multiple medical consultations following. Patient underwent permanent pacemaker placement yesterday. Will repeat am labs, and continue to monitor blood sugars closely. Further recommendations to follow. Prognosis is guarded.
[2019-11-26 17:12] LABS: Glucose,Whole Blood 146 mg/dL (75-99)
[2019-11-26] MEDS: DILTIAZEM ORAL 30 MG TAB PO SCH (18:44)
[2019-11-26 19:51] LABS: Glucose,Whole Blood 163 mg/dL (75-99)
[2019-11-26] MEDS ORDERED: POTASSIUM BICARBONATE/CIT AC 20 MEQ TABLET.EFF NG-TUBE ONE (20:00)
[2019-11-26] MEDS: QUEtiapine 25 MG TAB PO PRN (20:07)
[2019-11-26] MEDS: INSULIN DETEMIR (LEVEMIR) 100 UNIT/ML SYR SQ SCH (20:07)
[2019-11-27 00:29] LABS: Glucose,Whole Blood 106 mg/dL (75-99)
[2019-11-27] MEDS: VANCOMYCIN ORAL SOLUTION 250 MG/5 ML BOTTLE PO SCH ×5 (00:30→23:38)
[2019-11-27] MEDS: HEPARIN SODIUM,PORCINE 5,000 UNIT/ML 1 ML VIAL SQ SCH ×4 (00:30→23:38)
[2019-11-27] MEDS: INSULIN ASPART (NovoLOG) 100 UNIT/ML VIAL SQ SCH ×14 (00:58→23:32)
[2019-11-27 05:00] LABS: Glucose,Whole Blood 83 mg/dL (75-99)
[2019-11-27 05:29] LABS: HCT 28.3 % (39.0-53.0); HGB 8.9 gm/dL (13.0-17.5); Hypochromasia Marked; MCH 31.3 pg (25.0-35.0); MCHC 31.4 g/dL (31.0-37.0); MCV 99.6 fL (80.0-100.0); Macrocytosis Slight; Mean Platelet Volume 7.9; Platelet Count 469 k/uL (150-450); RBC 2.84 m/uL (4.30-5.90); RDW 15.3 % (11.5-15.5); WBC 12.3 k/uL (3.8-10.6)
[2019-11-27 05:35] LABS: ALT 87 U/L (4-49); AST 30 U/L (17-59); African American GFR (CKD) >90 (>60 ml/min/1.73 sqM); Anion Gap 9 mmol/L; Blood Urea Nitrogen 25 mg/dL (9-20); Calcium 9.1 mg/dL (8.4-10.2); Carbon Dioxide 26 mmol/L (22-30); Chloride 109 mmol/L (98-107); Glucose 61 mg/dL (74-99); Non-African American GFR(CKD) >90 (>60 ml/min/1.73 sqM); Potassium 3.9 mmol/L (3.5-5.1); Sodium 144 mmol/L (137-145)
--- NOTE | 2019-11-27 06:18 | XR ---
EXAMINATION TYPE: XR chest 1V portable DATE OF EXAM: 11/27/2019 HISTORY: post cardiac surgery. REFERENCE: Previous study dated 11/26/2019. FINDINGS: There has been a midline sternotomy. There is a bipolar pacemaker place on the left. There are bilateral pleural drains in place. No definite pneumothorax is seen. The heart remains enlarged. Pulmonary vasculature has improved. Pul monary edema has improved. I suspect a tiny right effusion. IMPRESSION: IMPROVING POSTOPERATIVE CHANGE.
[2019-11-27 06:49] LABS: Glucose,Whole Blood 76 mg/dL (75-99)
[2019-11-27] MEDS: FERROUS SULFATE ORAL ELIXIR 300 MG/5 ML CUP PO SCH ×2 (06:49→16:58)
[2019-11-27] MEDS: ASCORBIC ACID 500 MG TAB PO SCH ×2 (06:49→16:57)
[2019-11-27] MEDS ORDERED: POTASSIUM CHLORIDE ER 20 MEQ TAB.ER PO SCH (07:00)
[2019-11-27] MEDS: CHOLESTYRAMINE (WITH SUGAR) 4 GM PACKET PO SCH ×4 (07:03→20:07)
[2019-11-27] MEDS: PANTOPRAZOLE 40 MG TABLET PO SCH (07:03)
--- NOTE | 2019-11-27 07:54 | P.PN ---
Subjective Progress Note Date: 11/27/19 Principal diagnosis: Symptomatic multivessel coronary artery disease, unstable angina, status post subendocardial myocardial infarction. Previous medical history of CAD with previous stent placement to the proximal circumflex and ostial OM1, hypertension, hyperlipidemia, chronic ongoing tobacco dependence, mild COPD with preoperative FEV1 60% of predicted, right internal carotid artery stenosis 50- 69%, peripheral arterial disease with previous arthrectomy and BOX FOLDING MACHINE OPERATOR of the left SFA, atherectomy and BOX FOLDING MACHINE OPERATOR of the left TOBACCO SORTER, with stenting of the left BRIAN, poorly controlled type 2 diabetes with preoperative hemoglobin A1c 9.1%, bladder cancer status post chemo and radiation, occasional marijuana use, medication noncompliance, and family history of premature coronary artery disease POD #19 CABG 5 with GR to the LAD, left radial artery to the obtuse marginal, reverse saphenous vein to the posterior lateral, sequential saphenous vein to the first and second diagonal performed on cardiopulmonary bypass with beating heart. Endoscopic vein harvest of the left greater saphenous vein from the ankle to the groin. Endoscopic harvest of the left radial artery. Epi-aortic ultrasound and ligation of left atrial appendage with 40 mm AtriCure clip Postoperative acute blood loss anemia, expected outcome given cardiopulmonary bypass and hemodilution Postoperative encephalopathy, unexpected but potential outcome given cardiopulmonary bypass and intraoperative cardiac arrest Postoperative new onset paroxysmal Afib with RVR, unexpected Postoperative acute hypoxemic respiratory failure requiring reintubation, secondary to metabolic acidosis and hypotension. Postoperative stage II pressure ulcer on coccyx, unexpected The patient was seen and examined in the intensive care unit this morning. He is up in the chair, PT/OT stood him at the bedside 3 times yesterday with assist 4. He is currently on room air in no acute distress. He is alert and awake, he moves all extremities and follows commands but is still confused. He has left and right pleural chest tubes, Newman catheter present. No hematuria present this morning. Remains on oral vancomycin per infectious disease. He was able to tolerate oral intake yesterday without difficulty, diet advanced. Objective - Vital Signs Vital signs: Vital Signs Temp 97.8 F 11/27/19 04:00 Pulse 95 11/27/19 07:00 Resp 20 11/27/19 07:00 BP 137/57 11/27/19 07:00 Pulse Ox 95 11/27/19 07:00 Intake & Output 11/26/19 11/27/19 11/27/19 18:59 06:59 18:59 Intake Total 813 500 Output Total 2165 1890 75 Balance -1352 -1390 -75 Intake: IV 13 .9NS @ 10 ml/hr 10 Normal Saline Pressure 3 Bag Oral 800 500 Output: Chest Tube Drainage 290 290 left lateral chest tube 210 100 right lateral chest tube 80 190 Urine 875 1600 75 Stool 1000 Other: Voiding Method Indwelling Catheter Indwelling Catheter # Bowel Movements 1 ABP, PAP, CO, CI - Last Documented Arterial Blood Pressure 155/55 Pulmonary Artery Pressure 30/17 Cardiac Output 4.5 Cardiac Index 2.3 - Constitutional General appearance: Present: cooperative, no acute distress - Respiratory Details: Lungs sounds diminished bilaterally. Respirations even, nonlabored. Currently on room air with oxygen saturation 95%. Left pleural chest tube connected to continuous wall suction, 100 mL serous drainage overnight, 300 the last 24 hours. Right pleural chest tube connected to continuous wall suction, 190 mL serous drainage overnight, 350 mL in the last 24 hours. No air leaks present. - Cardiovascular Details: S1, S2 present. Regular rate and rhythm, sinus rhythm on telemetry. Sternum stable. Palpable peripheral pulses bilaterally, no edema present. Heart hugger, antiembolism stockings, SCDs present. - Gastrointestinal Gastrointestinal Comment(s): Abdomen soft, nontender, nondistended. Active bowel sounds present 4 quadrants. Fecal management system in place with liquid brown stool. Tolerating diet - Genitourinary Genitourinary Comment(s): Newman present draining clear, yellow urine. Output 150-275 mL/h overnight - Integumentary Integumentary Comment(s): Skin is warm and dry with evidence of good perfusion. Anterior chest incision well approximated and covered with dry intact dressing. Left lower extremity EVH site well approximated without drainage or redness. Left radial artery harvest site dry and intact without redness or drainage, good cap refill. Stage II pressure ulcer present to coccyx area, Optifoam dressing dry and intact. - Neurologic Neurologic: Present: CNII-XII intact - Musculoskeletal Musculoskeletal: Present: generalized weakness - Psychiatric Psychiatric Comment(s): Oriented to person only, does follow commands - Allied health notes Allied health notes reviewed: nursing - Labs CBC & Chem 7: 11/27/19 04:41 11/27/19 04:41 Labs: Abnormal Lab Results - Last 24 Hours (Table) 11/26/19 11/26/19 11/26/19 Range/Units 11:49 17:10 19:49 WBC (3.8-10.6) k/uL RBC (4.30-5.90) m/uL Hgb (13.0-17.5) gm/dL Hct (39.0-53.0) % Plt Count (150-450) k/uL Chloride (98-107) mmol/L BUN (9-20) mg/dL Glucose (74-99) mg/dL POC Glucose (mg/dL) 177 H 146 H 163 H (75-99) mg/dL ALT (4-49) U/L 11/27/19 11/27/19 11/27/19 Range/Units 00:28 04:41 04:41 WBC 12.3 H (3.8-10.6) k/uL RBC 2.84 L (4.30-5.90) m/uL Hgb 8.9 L (13.0-17.5) gm/dL Hct 28.3 L (39.0-53.0) % Plt Count 469 H (150-450) k/uL Chloride 109 H (98-107) mmol/L BUN 25 H (9-20) mg/dL Glucose 61 L (74-99) mg/dL POC Glucose (mg/dL) 106 H (75-99) mg/dL ALT 87 H (4-49) U/L - Imaging and Cardiology Chest x-ray: report reviewed, image reviewed Assessment and Plan Assessment: 1. Symptomatic multivessel coronary artery disease, recent non-STEMI, status post 5 vessel CABG 2. Leukocytosis, maybe multifactoral, positive UTI. Blood, sputum, urine cultures negative to date although drawn after antibiotics started. 3. Previous stent placement to the proximal circumflex and ostial OM1 4. History of hypertension 5. History of hyperlipidemia 6. Chronic ongoing tobacco dependence 7. Mild COPD, preoperative FEV1 60% of predicted value 8. Right internal carotid artery stenosis 50-69%. 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 9. History of peripheral arterial disease with previous arthrectomy and BOX FOLDING MACHINE OPERATOR of the left SFA and atherectomy and BOX FOLDING MACHINE OPERATOR of the left TOBACCO SORTER with stenting of the left BRIAN 10. Poorly controlled diabetes mellitus type 2 with hyperglycemia, admission hemoglobin A1c 9.1% 11. History of bladder cancer status post radiation, chemotherapy treatment and bladder surgery 12. Occasional marijuana use 13. Medication noncompliance 14. Family history of early onset coronary artery disease 15. Postoperative acute blood loss anemia, expected 16. Postoperative encephalopathy, unexpected 17. Mild ISAAC, resolved 18. Afib with RVR, status post left atrial appendage ligation, currently Sinus Rhythm to sinus bradycardia 19. Hematuria, resolved, likely from patient pulling at newman catheter 20. Postoperative acute hypoxic respiratory failure requiring reintubation, secondary to metabolic acidosis and hypotension 21. Elevated transaminase levels, shock liver, secondary to hypotension, tr ending down 22. New stage II pressure ulcer, coccyx 23. Postoperative bilateral pleural effusions, status post bilateral pleural chest tube placement Plan: 1. Continue aspirin, Plavix, statin, beta gaurav, Cozaar. Will increase beta gaurav therapy as tolerated. 2. Continue amiodorone for atrial fibrillation prophylaxis. No anticoagulation necessary 3. Continue to hold Cardizem. Will reassess and add as tolerated. 4. Keep Newman catheter in place for accurate I&O. Newman catheter was changed on 11/14/2019. 5. Continue Optifoam dressing pressure ulcer per Dr. Diaz. Turn minimum every 2 hours. 6. Bronchodilators per pulmonology. Encourage incentive spirometry use 7. Continue to monitor right and left pleural chest tube output. 8. Will monitor daily labs and chest x-rays. Elective replacement per protocol. 9. Pain management per current medication regimen 10. GI/DVT prophylaxis. 11. Insulin management per primary care service. 12. Continue 40 mg Lasix q12 13. Reorient as necessary. Continue to assess mental status 14. Continue vancomycin per infectious disease 15. Patient will need rehab at discharge. Discussed with yesterday the possibility of LTAC, she is not interested as the drive is too far for her. Likely will discharge to [facility] when ready. 16. More recommendations to follow based on patient's clinical course. Time with Patient: Greater than 30
[2019-11-27 07:57] LABS: Glucose,Whole Blood 91 mg/dL (75-99)
[2019-11-27] MEDS: IPRATROPIUM-ALBUTEROL 3 ML NEB INHALATION SCH ×4 (08:34→19:45)
[2019-11-27] MEDS: AMIODARONE 200 MG TAB PO SCH ×2 (08:43→20:07)
[2019-11-27] MEDS: ASPIRIN 325 MG TAB PO SCH (08:43)
[2019-11-27] MEDS: ATORVASTATIN 40 MG TAB PO SCH (08:43)
[2019-11-27] MEDS: FUROSEMIDE 10 MG/ML 4 ML VIAL IV SCH ×2 (08:44→20:07)
[2019-11-27] MEDS: NYSTATIN 100,000 UNIT/ML SUSP 500,000 UNIT/5 ML CUP PO SCH ×4 (08:44→20:08)
[2019-11-27] MEDS: METOPROLOL TARTRATE 50 MG TAB PO SCH ×2 (08:44→20:07)
[2019-11-27] MEDS: CLOPIDOGREL 75 MG TAB PO SCH (08:44)
[2019-11-27] MEDS: QUEtiapine 25 MG TAB PO PRN ×2 (08:47→23:42)
--- NOTE | 2019-11-27 09:56 | P.PN ---
Subjective Progress Note Date: 11/27/19 Principal diagnosis: Coronary artery disease with unstable angina, and non-ST segment elevation myocardial infarction, status post 5 vessel bypass grafting This is a 64-year-old male patient with coronary artery disease, noncompliant to medication. The patient came in with subendocardial infarction and cardiac catheterization showed diffuse coronary artery disease with critical stenosis. The patient underwent coronary artery bypass today. The patient underwent bypass 5 with GR to LAD, radial artery graft to acute marginal, saphenous finger after 2 posterior lateral and sick ration saphenous vein to first and second diagonal performed on cardiac pulmonary bypass with beating heart. Left atrial appendage was also added. The patient currently is in the intensive care unit. I centimeters in regards to the ICU. He was initially on a SIMV mode of ventilation at the rate of 12 with a tidal volume of 500 and FiO2 of 100% with a PEEP of 5 and a pressure support of 5. The blood gas showed a pH of 7.318 with a pCO2 of 49 and pO2 of 226. The chest x-ray postop showed volume overload with pulmonary vascular congestion and interstitial edema. The lines and tubes are all in good location. Based on all this, I increased the respiratory rate of 24. I do not FiO2 down to 60%. Current cardiac output is at 2.6 with an index of 5. The patient has 2 mediastinal 1 right pleural and 1 left pleural chest tube. Ultrasound of the sternal chest tubes has been around 150 mL since he arrived from the operating room. No evidence of any air leak. The patient is currently on a Cardizem drip and milrinone drip and the patient is on insulin drip for blood sugar control.he is well sedated. Is quite symptoms with the mechanical ventilator. Postoperative hemoglobin is at 8.2. Platelet count is down to 78. On today's evaluation of 11/09/2019, I'm seeing the patient for a follow-up. The patient was operated on yesterday and the patient underwent a five-vessel bypass surgery including a GR and the radial artery harvest. The patient was extubated within 6 hours and currently the patient is on oxygen by nasal cannula at 5 L. He is pleasantly confused this morning. He is able to sit up on a recliner. Hemodynamically, he did have some early of hypotension earlier this morning and for that reason the patient was given 750 mL of colloids and following that he was started on low-dose levo fed at 0.03 g per KG per minute. The patient remains on Primacor running at 0.125 g and the patient is also on Cardizem at 5 mg an hour. Insulin drip is running at 2.5 units an hour. Hemodynamically, the patient's cardiac output is at 4.2 with an index of 2.2. The pulmonary artery pressure 28/12. CVP is at 11. Cardiac output is at 4.2. He is in his normal sinus rhythm. He has a backup VVI at the rate of 50. His chest x-rays showing small bilateral apical pneumothoraces. All of the chest tubes are in good location. The right and left pleural chest tube connected and they have drained approximately 130 mL over the past 8 hours. He is tender tub es are also connected and it has drained approximately 140 mL over the past 8 hours. The patient otherwise has no specific complaints. Sternum stable clean and intact. He is producing urine output in the order of 20-30 mL an hour. No other significant events overnight. Hemoglobin stable at 7.9. The platelet count improved to 102. On 11/10/2019, the patient is postop day #2. The patient is confused. He is nonverbal. He is not answering questions and is not following any commands. Upon watching him, I felt that the left side of the body slightly cachectic compared to the right. Nevertheless, the same as the patient was not cheered by the nursing staff been observing this patient longer to me. He has no preferential gaze toseizure activity. No reported shortness of breath or res piratory distress at this point in time. Mediastinal chest tubes and the pleural chest tubes are all in place. The patient has an AV epicardial pacer wire grounded to generator. As of yesterday, the patient was taken off the pressors. The patient is currently off the levo fed and he is off the Primacor. The patient also had the ALYX drains removed from the left lower extremity and arm. No other significant issues for now. No cardiac arrhythmias. No nausea. No vomiting. No emesis. He is resting comfortably in bed. The patient's hemoglobin is at 7.0. Was a causative 4.7. Diminished pulmonary vascular congestion and infiltration of the right lung base. There is resolution of the previously described bilateral pneumothoraces. On today's evaluation of 11/11/2019, the patient remains confused. I was told that he was able to say some few words. I was also told by the nursing staff that the patient was witnessed EXTREMITIES WITHOUT ANY LIMITATION IN PATIENT HAVING ANY FOCAL NEUROLOGICAL DEFICIT. NOTE THAT THE PATIENT EARLIER THIS MORNING WITH ATRIAL FIBRILLATION WITH RAPID VENTRICULAR RESPONSE. HIS HEART RATE WENT UP TO 180 beats per minute without any significant hypotension. That point, the patient was given amiodarone boluses and the patient received a total of 3 boluses prior to my arrival. He was also given 5 mg of IV Lopressor. Her, bilateral, the patient was still in atrial fibrillation. He was trying to hurt at times he thought it was going down. His baseline rhythm was atrial fibrillation and heart rate was in the range of 100-120. The patient denied having any chest pain. Sternum was stable treatment intact. No reported fever or chills. The mediastinal chest 11 already been removed yesterday. The right and the left pleural chest tubes are still in place and output is being noted. Chest x-ray from this morning showed adequate expansion of both lungs without evidence of any pneumothorax. No evidence of any pulmonary edema. The patient was being given Lasix 20 mg IV push every 12 hours. Hemoglobin from this morning was down to 6.7 and the patient was ordered to get a unit of packed RBC. Currently is postoperative #3 post 5 vessel coronary artery bypass surgery. On 11/12/2019 patient seen in follow-up in the intensive care unit, he is very restless on today's exam, although nursing reports some improvement in his neurological status, and apparently patient is answering questions appropriately, and he knows he is in the hospital, and he is given verbal responses to questions. he is awake and alert, he is restless, but appears to be in no acute distress, he is moving his legs and arms bilaterally, squirming in bed. Does not appear to be in any respiratory distress. He is currently on 5 L of oxygen, with pulse ox of 100%, hemodynamically patient is stable, no fever or chills. Lactate of Ringer's infusing at a rate of 40 ML per hour. Today's chest x-ray has been reviewed showing increasing airspace opacity of the right upper lobe, similar prominent interstitial markings, no pneumothorax, no pleural effusions. Left pleural chest tube is in place, with a total output of 340 ML in the last 24 hours, right pleural chest tube put out 380 mL of serosanguineous thin output in the last 24 hours, media still chest tubes have been discontinued. Patient has produced 1.3 L and urine output in the last 24 hours. Junior catheter remains in place. Today's lab work has been reviewed, showing white blood cell count of 17.6, hemoglobin is 9.3, sodium of 138, potassium 3.8, chloride is 108, CO2 is 20, B1 is 39, creatinine is 1.17. She is in sinus arrhythmia with frequent PACs on the monitor, amiodarone drip has been switched to oral amiodarone 400 mg twice daily, patient is on oral Cardizem 30 mg every 6 hours, and oral metoprolol 50 mg twice daily. Blood cultures have shown no growth at the 24-hour elly. Patient has been afebrile. clerical proofreader is at the bedside in view of confusion and agitation, Junior catheter still has hematuria, which is dark in color, yesterday's brain CT showed patchy. Ventricular and deep white matter changes, left greater than right which have progressed from 01/09/2019, and areas of subacute ischemia are not excluded, MRI can further evaluate, no acute intracranial hemorrhage or midline shift. On 11/17/2019 patient seen in follow-up in the intensive care unit, she is se dated, intubated, on mechanical ventilator, current vent settings are assist- control with a rate of 16, tidal and was 450, FiO2 is 40%, and PEEP of 5. This morning his blood gases reveal pO2 of 92, pCO2 34, pH is 7.47. Current IV drips include 0.9 normal saline at a rate of 5 ML per hour, and improving and is at 60 mics per kilo per minute, tube feedings are with vital high-protein at a rate of 54, with a goal of 54 with standard water flushes with 30 mL of water every 4 hours. Patient was given daily traction of sedation yesterday, he awoke, and reportedly follow commands, but quickly became very tachypneic and hypertensive and had to be placed back on mechanical ventilator. His chest x-ray shows stable findings, persistent central vascular congestion and bibasilar opacities. Small to moderate-sized bilateral pleural effusions, appear to be stable. Patient remains on IV Lasix at 40 mg every 12 hours, and he is very slightly negative, only 6 mL, however he did produced over 3 L in urine output in the last 24 hours. He is off the vasopressor support, his weight is stable, he does have some generalized edema involving his upper and lower extremities. Remains on empiric antibiotics in the form of cefepime and vancomycin. He is afebrile, his blood urine and sputum cultures have shown no growth thus far. Today's labs have been reviewed. His white blood cell is stable at 15, hemoglobin is 7.7, sodium is 136, the rest of electrolytes were within normal limits, B1 is 33, and creatinine is 1.04, his liver enzymes are coming down, AST is down to 130, ALT is 692, alk phos is fairly stable at 195, his pro-calcitonin level was elevated and 0.99, suggesting presence of bacterial infection. Patient has been afebrile, abdomen is soft, nontender, patient is tolerating tube feedings. His hematuria has cleared up. On 11/18/2019 patient seen in follow-up in the intensive care unit. Patient is still intubated, his sedation has been on hold since 7:00 this morning, patient is awake, he is following basic commands, squeezing with his left hand, however his right hand is flaccid, and patient is not able to squeeze with the right hand. His current vent settings are assist-control with a rate of 16, tidal volume is 450, FiO2 is 40%, and PEEP of 5. This is blood gases showed pO2 106, pCO2 35, and pH of 7.49. Currently on no drips other than 0.9 normal saline at a rate of KVO. Patient has been tolerating tube feedings. Yesterday we repeated his CT of the brain which showed no evidence of acute hemorrhage, areas of patchy low attenuation in the left parietal white matter previously noted on previous brain scan this could be on the basis of subacute ischemia. MRI of the brain was recommended, neurology consultation was requested and patient is suspected to have probable subacute stroke involving multiple patchy areas in the left MCA vascular territory consideration of cardioembolic source. Patient did have transient atrial fibrillation. Follow-up MRI and MRA of the brain will be done once the patient is extubated and is able to travel down to the MRI department. Today's chest x-ray shows diffuse bilateral pleural parenchymal changes, no pneumothorax. Consider pulmonary edema, or underlying pneumonia. So far blood and urine and sputum cultures remain negative. Patient is afebrile, hemodynamically he stable, empiric antibiotic coverage is with Zosyn, vancomycin has been discontinued, ID service is following. Patient is on IV Lasix at 40 mg every 12 hours. He has produced 2.7 L and urine output over last 24 hours, he is in -280 mL fluid balance. He seems to get slightly agitated at times, becomes hypertensive, today she is following commands, we will try to keep him off sedation, to fully assess his mentation and neurological status, we will repeat LFTs, and ammonia level. On 11/22/2019 patient seen in follow-up in the intensive care unit. To recap patient was admitted to the hospital on 11/07/2019, and he had his 5 vessel cor onary artery bypass grafting surgery and 11/08/2019 and patient was extubated on postoperative day 0 on 11/08/2019. In the postoperative period patient developed altered mental status worsening respiratory failure, symptomatic bradycardia and had to be emergently reintubated on 11/12/2019 and weaned and extubated on 11/19/2019. Patient is suspected to have sustained a subacute stroke involving multiple patchy areas in the left MCA distribution. He has not been able to travel to the MRI department for his follow-up MRI. Patient was weaned from the mechanical ventilator and extubated on 11/19/2019 last week however developed worsening hypoxia, pulmonary edema and had to be reintubated on 11/20/2019. Today she seen in the intensive care unit, sedated on 30 mics per kilo per minute of propofol infusion, and 0.9 normal seen at a rate of 10 ML per hour, he is intubated current vent settings are assist-control with a rate of 16, tidal line was 450, FiO2 is 50% and PEEP of 5, this was blood gases show pO2 of 123, pCO2 38 and pH of 7.51. His chest x-ray shows diffuse bilateral infiltrates and pleural effusion, sizable pneumothorax, interstitial pattern was noted. Patient remains on Lasix at 40 mg every 12 hours, diuresing, and he has made at 7.4 L in urine output in last 24 hours, and he is in -1.5 L net fluid balance over last 24 hours. He is receiving tube feedings with Glucerna 1.5 at a rate of 75 with a goal of 75 ML per hour. Afebrile and hemodynamically stable in the last 24 hours, not requiring any vasopressor support, today's labs have been reviewed showing limited cell count within normal limits at 9.9, hemoglobin is 7.0, electrolytes are within normal limits, BUN of 38, creatinine is 1.17, liver enzymes have steadily been improving, and AST is 93, ALT is 286, alkaline phosphatase was 199, his last ammonia level was back on the and was normal at less than 9. Blood sputum and urine cultures have shown no growth so far. Empiric and pneumatic coverage is with Zosyn and vancomycin On 11/23/2019 patient seen in follow-up in the intensive care unit, he opens eyes to verbal stimulation, he is following simple commands, he squeezing with his left hand, his right hand is quite weak, and almost flaccid. He is nodding his head appropriately to verbal questioning. Does not appear to be in any distress, yesterday we stopped his propofol infusion and put the patient on Precedex infusion which is currently infusing at a rate of 0.3 mics per kilo per hour. 0.9 normal saline at a rate of 20 ML, and he is tolerating his tube feedings of vital 1.2 at a rate of 70 with a goal of 70 with standard water flushes. His current vent settings are assist control with a rate of 16, tidal line is 450, FiO2 40% and PEEP of 5. Sometime in the last 24 hours patient has converted to sinus bradycardia, currently remains in sinus bradycardia with a rate of 54. Patient is currently being paced at AAI mode at a rate of 80 BPM. Hemodynamic patient stable, not on any pressors. Chest x-ray has been reviewed showing diffuse bilateral infiltrates and pleural effusions bilaterally, no sizable pneumothorax. Yesterday's ultrasound the chest showed a 4.8 cm pocket on the right and 3.2 cm pocket on the left. he remains on IV Lasix of 40 mg every 12 hours, and he is slightly positive net fluid balance, +111 mL over last 24 hours. He did however produced 3.2 L in urine output over the last 24 hours. He is on empiric antibiotics with Zosyn and oral vancomycin for possibility of C. diff, all his culture data has been negative thus far. Did have a low-grade fever this morning with a temp of 99.7F. Today's labs have been reviewed showing white blood cell count of 8.8, hemoglobin of 8.3, platelet count is 388, electrolytes are within normal limits, BUN is 39 creatinine is 1.21. His blood gas has been reviewed showing pO2 of 82, pCO2 of 36 and pH of 7.52. Dobbhoff tube is in place through which the patient is receiving tube feedings. lung sounds are clear, diminished at the bases, abdomen is soft, nontender. On 11/24/2019 patient seen in follow-up in intensive care unit, patient remains intubated, sedated on mechanical ventilator current settings are assist-control with a rate of 16, tidal line is 450, FiO2 is 40% and PEEP of 5. This morning blood gas was reviewed showing pO2 of 66, pCO2 36, and pH is 7.5. Patient is currently on Precedex at 0.2 mics per kilo per hour, this was cut back from this morning from 0.5 mics per kilo per hour, 0.9 normal saline at a rate of 10, no vasoactive drips. Patient is on Zosyn for empiric antibiotic coverage, all culture data including blood culture sputum and urine cultures have been negative. She did have a low-grade fever this morning with a temp of 100.3F. He is receiving tube feedings with the vital AF at a rate of 78 with a goal of 70 and standard water flushes. She has a Dobbhoff tube inserted through which she is receiving nutritional support. Yesterday patient tolerated some pressure support trials with pressure support of 10 and CPAP at 5, for several hours, however at 7:30 in the evening apparently patient went into A. fib with RVR, and possibly developed a mucous plug, out to worsening shortness of breath, and was placed back on assist control mode of ventilation. Patient had been on oral amiodarone and metoprolol, he had since converted back to sinus bradycardia, this morning he is paced at a rate of 80 BPM in the AAI mode of pacing, and his underlying rhythm is sinus bradycardia with a rate of 52 BPM. Today's chest x- ray has been reviewed showing bilateral patchy increased attenuation within the lungs. Patient remains on Zosyn for antibiotic coverage, sputum has shown no growth. Today's labs have been reviewed showing white blood cell count of 10.0, hemoglobin is 7.8, sodium is 142, potassium 3.8, chloride is 108, CO2 is 28, BUN of 38, and creatinine is 1.10. And is following simple commands, he is profoundly weak. We'll proceed with pressure-support trials again today. On 11/25/2019 patient seen in follow-up in the intensive care unit, he is awake and alert, he is following all commands, he is moving both upper and lower extremities, no unilateral weakness noted on today's exam, he is making eye contact, he is following command, he denies any acute distress, he remains intubated, he has been on pressure-support trials for the last 24 hours, he is done very well, tolerated them very well, no signs of agitation, he has been maintained on Precedex at 0.5 mics per kilo per hour, no other drips were IV fluids. No vasoactive drips. Tube feedings are currently off, she was receiving them with the vital AF at a rate of 70. Tube feedings are on hold for possibility of permanent pacemaker insertion. Patient still has AV wires in his chest connected to a permanent pacemaker and he is pacemaker dependent as the underlying rhythm is still bradycardic sinus mechanism with a rate of 40 BPM, last night apparently there was an issue with capturing and there is a concern that patient will need a permanent pacemaker, is a current pacemaker leads are developing some issues with capture. He is currently 100% paced at a rate of 70 at a mode of AAI. Blood pressure is stable. Lung sounds are clear, diminished at the bases, today's chest x-ray has been reviewed showing improved aeration, no sizable pneumothorax or pleural effusion. Dobbhoff tube ET tube and bilateral chest tubes remain in place. His right chest tube had 650 ML of thin serosanguineous output in last 24 hours, and left lateral chest tube had 830 mL of serosanguineous thin output in the last 24 hours, Junior catheter is in place, patient is producing good amount of urine, he remains on Lasix of 40 mg every 12 hours, he is in -2.4 L fluid balance over the last 24 hours. Today's labs have been reviewed showing limited cell count of 8.6, hemoglobin of 8.0, sodium is 142, potassium is 3.8, chloride is 110. Patient's blood gas was reviewed showing pO2 of 134, pCO2 of 38, and pH of 7.47, this was done on FiO2 of 40% on pressure-support of 10. On 11/26/2019 patient seen in follow-up in intensive care unit, it yesterday following his permanent pacemaker insertion procedure patient returned to the unit, he proceeded to wean on pressure-support trials, he did quite well, and was subsequently extubated. Today he is awake and alert, he is oriented to pers on and place, disoriented to time, he is following all commands, he is moving all 4 extremities, strength appears to be equal on bilateral sides, he is on 5 L the pulse ox of 97%, appears to be in no acute distress, is a paced rhythm on the monitor, he is status post permanent pacemaker insertion, his left upper chest incision is clean dry and intact, soft, no evidence of hematoma, with a surgical dressing, he is afebrile, hemodynamically patient is stable, he is not on any IV fluids. His chest x-ray has been reviewed showing mildly increased pulmonary vascular congestion. No evidence of any respiratory distress, lung sounds reveal clear breath sounds bilaterally. Following the extubation patient was given the bedside swallow evaluation which he successfully passed. Today's labs have been reviewed, showing white blood cell count of 8.7, hemoglobin of 8.0, platelet count is 357, sodium is 142, potassium 3.7, chloride is 110, B1 is 34, creatinine is 0.86. Blood, urine and sputum cultures are negative thus far. Continues on IV Lasix 40 mg every 12 hours he is in -1.5 L over last 24 hours. Right and left chest tubes remain in place, with 180 out of the left chest tube in the 180 out of the right chest above the last 24 hours no air leak. Apparently they will remain in place per CT surgery. FMS is in place, and patient continues to have liquid stool output, he continues on oral vancomycin for possibility of C. diff colitis. The patient is seen today 11/27/2019 in follow-up in the intensive care unit. He is currently sitting up in a chair at the bedside. Awake and alert in no acute distress. He is currently maintaining O2 saturations in the 90s on room air. No current IV fluids. Chest x-ray showing improvement in the pulmonary edema. Small right tiny effusion. Bilateral chest tubes remain in place. He is status post 4 units of packed red blood cells this admission. Current hemoglobin 8.9. White count 12.3. Sodium 134. Potassium 3.9. Creatinine 0.83. He remains on Lasix 40 mg IV every 12 hours, bronchodilators, oral vancomycin. Sitter is at the bedside. Taking in oral nutrition. Objective - Vital Signs Vital signs: Vital Signs Temp 97.8 F 11/27/19 04:00 Pulse 98 11/27/19 08:47 Resp 20 11/27/19 07:00 BP 137/57 11/27/19 07:00 Pulse Ox 95 11/27/19 08:37 Intake & Output 11/26/19 11/27/19 11/27/19 18:59 06:59 18:59 Intake Total 813 500 Output Total 2165 1890 75 Balance -1352 -1390 -75 Intake: IV 13 .9NS @ 10 ml/hr 10 Normal Saline Pressure 3 Bag Oral 800 500 Output: Chest Tube Drainage 290 290 left lateral chest tube 210 100 right lateral chest tube 80 190 Urine 875 1600 75 Stool 1000 Other: Voiding Method Indwelling Catheter Indwelling Catheter # Bowel Movements 1 ABP, PAP, CO, CI - Last Documented Arterial Blood Pressure 155/55 Pulmonary Artery Pressure 30/17 Cardiac Output 4.5 Cardiac Index 2.3 - Exam GENERAL EXAM: Awake, alert, oriented to person and place 64-year-old male patient, on room air with a pulse ox of 95% patient is following simple commands, he is squeezing with both hands, strength appears equal in both hands, is making eye contact HEAD: Normocephalic/atraumatic. EYES: Normal reaction of pupils, equal size. Conjunctiva pink, sclera white. NOSE: Clear with pink turbinates. Patient has a Dobbhoff feeding tube in place with tube feedings infusing THROAT: No erythema or exudates. NECK: No masses, no JVD, no thyroid enlargement, no adenopathy. CHEST: No chest wall deformity. Symmetrical expansion. Midsternal incision is clean dry and intact, bilateral chest tubes in place. left upper chest incision at the site of the permanent pacemaker insertion is clean dry and intact. LUNGS: Equal air entry with crackles in the bilateral posterior bases CVS: regular rate and rhythm, normal S1 and S2, no gallops, no murmurs, no rubs, ABDOMEN: Soft, nontender. No hepatosplenomegaly, normal bowel sounds, no guarding or rigidity. EXTREMITIES: No clubbing, no edema, no cyanosis, 2+ pulses and upper and lower extremities. MUSCULOSKELETAL: Muscle strength and tone normal. SPINE: No scoliosis or deformity SKIN: No rashes CENTRAL NERVOUS SYSTEM: Patient is awake and following simple commands - Labs CBC & Chem 7: 11/27/19 04:41 11/27/19 04:41 Labs: Abnormal Lab Results - Last 24 Hours (Table) 11/26/19 11/26/19 11/26/19 Range/Units 11:49 17:10 19:49 WBC (3.8-10.6) k/uL RBC (4.30-5.90) m/uL Hgb (13.0-17.5) gm/dL Hct (39.0-53.0) % Plt Count (150-450) k/uL Chloride (98-107) mmol/L BUN (9-20) mg/dL Glucose (74-99) mg/dL POC Glucose (mg/dL) 177 H 146 H 163 H (75-99) mg/dL ALT (4-49) U/L 11/27/19 11/27/19 11/27/19 Range/Units 00:28 04:41 04:41 WBC 12.3 H (3.8-10.6) k/uL RBC 2.84 L (4.30-5.90) m/uL Hgb 8.9 L (13.0-17.5) gm/dL Hct 28.3 L (39.0-53.0) % Plt Count 469 H (150-450) k/uL Chloride 109 H (98-107) mmol/L BUN 25 H (9-20) mg/dL Glucose 61 L (74-99) mg/dL POC Glucose (mg/dL) 106 H (75-99) mg/dL ALT 87 H (4-49) U/L Assessment and Plan Assessment: 1 Coronary artery disease without stable angina and non-STEMI. The patient underwent five-vessel bypass surgery on 11/08/2019. CABG 5 with GR to LAD, left radial artery to obtuse marginal, saphenous vein to posterior lateral, sequential saphenous vein to first and second diagonal performed on cardiopulmonary bypass with beating heart. Epi-aortic ultrasound and ligation of left atrial appendage with Atriclip. The patient is postop day #19. Hemodynamically stable. 2 Recurrent acute hypoxic respiratory failure, multifactorial, patient was initially intubated for the original surgery on 11/08/2019 with extubation on 11/08/2019, patient was re-intubated on 11/12/2019, for symptomatic bradycardia, worsening lactic acidosis, of unclear etiology. Patient was successfully weaned and extubated on 11/19/2019, and subsequently reintubated on 11/20/2019 for worsening hypoxemia related to pulmonary edema and A. fib with RVR. Antibiotics have been given empirically, cultures remain negative. 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 please refer to the neurology evaluation, improved, patient is awake and alert, oriented to person and place, following command, and 4 Chronic and ongoing tobacco dependence with chronic obstructive pulmonary disease, preoperative FEV1 value was 60% of predicted 5 Previous coronary artery disease with stent placement to the proximal circumflex and OM1 6 Peripheral vascular disease with prior peripheral stent placements 7 Right carotid artery stenosis at 50-69% 7 History of marijuana use 8 Diabetes mellitus, type II 9 History of bladder cancer status post radiation/chemotherapy and subsequent surgery 10 History of noncompliance Plan: The patient was seen and evaluated by Dr. Ragsdale Chest x-ray and labs reviewed Continue current treatment plan Currently up in a chair at the bedside On room air, chest tubes remain in place We'll continue to monitor him closely here in the intensive care unit I, the cosigning physician, performed a history & physical examination of the patient. Lungs sounds with faint crackles in the posterior bases. Maintaining good O2 saturations in the 90s on room air. I discussed the assessment and plan of care with my nurse practitioner, Renetta Sanchez. I attest to the above note as dictated by her.
[2019-11-27 11:48] LABS: Glucose,Whole Blood 241 mg/dL (75-99)
[2019-11-27] MEDS: LOSARTAN 25 MG TAB PO SCH (12:10)
--- NOTE | 2019-11-27 13:44 | P.PN ---
Subjective Progress Note Date: 11/27/19 History of present illness: This is a 64-year-old male with past history of coronary artery disease with previous stent placement, hypertension, hyperlipidemia, tobacco use and dependence, mild COPD. Patient is status post CABG 5, postop day #19. Patient remains in intensive care unit. He has had a pacemaker placed in heart rate is running 90s to 100. Patient has pleural chest tubes, Junior, fecal management system in place. He also has a sitter at the bedside due to metabolic encephalopathy. Patient has been maintained on amiodarone, Lipitor, Lasix Lopressor. Physical examination: Gen: This is a 64-year-old male sitting in the recliner with a sitter at the bedside. VS: Afebrile, heart rate 105, blood pressure 147/72, pulse ox 92% on room air. HEENT: Head is atraumatic, normocephalic. Pupils equal, round. Sclerae is anicteric. NECK: Supple. No JVD. No lymphadenopathy. No thyromegaly. LUNGS: Diminished breath sounds bilaterally.. Chest tubes in place. HEART: Regular rate and rhythm. No murmur. ABDOMEN: Soft. Bowel sounds are present. No masses. No tenderness. Junior catheter in fecal management system in place. EXTREMITIES: No pedal edema. No calf tenderness. NEUROLOGICAL: Patient is awake, alert and oriented x3. Cranial nerves 2 through 12 are grossly intact. Assessment: Coronary artery disease status post CABG Bradycardia status post permanent pacemaker Hypertension Hyperlipidemia COPD Plan: Continue amiodarone which has been decreased to 200 mg twice daily, Lipitor, aspirin Continue Lasix 40 mg IV every 12 hours Continue losartan 25 mg daily, Lopressor 50 g twice daily. Further recommendations to follow based upon clinical course Nurse practitioner note has been reviewed, I agree with documented findings and plan of care. Patient was seen and examined. Objective - Vital Signs Vital signs: Vital Signs Temp 98.2 F 11/27/19 08:00 Pulse 105 H 11/27/19 10:00 Resp 21 11/27/19 10:00 BP 140/71 11/27/19 10:00 Pulse Ox 94 L 11/27/19 10:00 Intake & Output 11/26/19 11/27/19 11/27/19 18:59 06:59 18:59 Intake Total 813 500 Output Total 2165 1890 75 Balance -1352 -1390 -75 Intake: IV 13 .9NS @ 10 ml/hr 10 Normal Saline Pressure 3 Bag Oral 800 500 Output: Chest Tube Drainage 290 290 left lateral chest tube 210 100 right lateral chest tube 80 190 Urine 875 1600 75 Stool 1000 Other: Voiding Method Indwelling Catheter Indwelling Catheter # Bowel Movements 1 ABP, PAP, CO, CI - Last Documented Arterial Blood Pressure 155/55 Pulmonary Artery Pressure 30/17 Cardiac Output 4.5 Cardiac Index 2.3 - Labs CBC & Chem 7: 11/27/19 04:41 11/27/19 04:41 Labs: Abnormal Lab Results - Last 24 Hours (Table) 11/26/19 11/26/19 11/26/19 Range/Units 11:49 17:10 19:49 WBC (3.8-10.6) k/uL RBC (4.30-5.90) m/uL Hgb (13.0-17.5) gm/dL Hct (39.0-53.0) % Plt Count (150-450) k/uL Chloride (98-107) mmol/L BUN (9-20) mg/dL Glucose (74-99) mg/dL POC Glucose (mg/dL) 177 H 146 H 163 H (75-99) mg/dL ALT (4-49) U/L 11/27/19 11/27/19 11/27/19 Range/Units 00:28 04:41 04:41 WBC 12.3 H (3.8-10.6) k/uL RBC 2.84 L (4.30-5.90) m/uL Hgb 8.9 L (13.0-17.5) gm/dL Hct 28.3 L (39.0-53.0) % Plt Count 469 H (150-450) k/uL Chloride 109 H (98-107) mmol/L BUN 25 H (9-20) mg/dL Glucose 61 L (74-99) mg/dL POC Glucose (mg/dL) 106 H (75-99) mg/dL ALT 87 H (4-49) U/L
[2019-11-27 16:38] LABS: Glucose,Whole Blood 239 mg/dL (75-99)
--- NOTE | 2019-11-27 17:02 | PN ---
PROGRESS NOTE DATE OF SERVICE: 11/27/2019 REASON FOR FOLLOWUP: 1. Diarrhea, possible C diff. 2. Leukocytosis. INTERVAL HISTORY: Patient is currently afebrile. The patient is more awake and alert today. He is up in the chair. Denies having any chest pain or cough. No abdominal pain. He still has the diarrhea with fecal management system in but no worsening has been noted. PHYSICAL EXAMINATION: Blood pressure 132/75 with a pulse of 105, temperature 98.3, he is 91% on room air. General description is an elderly male up in the chair in no distress. Respiratory system: Unlabored breathing, decreased breath sounds at the base. No wheeze. Heart S1, S2. Regular rate and rhythm. Abdomen is soft, no tenderness. LABS: Hemoglobin is 8.8, white count 12.3, creatinine 0.83. DIAGNOSTIC IMPRESSION AND PLAN: Patient with leukocytosis with concern for possible C difficile as this patient did have significant diarrhea. He has had some improvement with initial normalization of his white count. However, the white count now is trending up. We will go ahead and check a UA and cultures. Continue the vancomycin and monitor clinical course closely. MMODL / IJN: [id number] /
[2019-11-27 19:56] LABS: Glucose,Whole Blood 181 mg/dL (75-99)
[2019-11-27] MEDS: INSULIN DETEMIR (LEVEMIR) 100 UNIT/ML SYR SQ SCH (20:08)
--- NOTE | 2019-11-27 23:10 | P.PN ---
Subjective Progress Note Date: 11/27/19 Principal diagnosis: -Coronary artery disease and non-ST elevation myocardial infarction status post CABG 5 vessel on 11/07 Patient is a 64-year-old male was recently discharged from the hospital came back in with the chest pain pressure-like sensation lasted for a few hours non exertional did have elevated troponins. Patient had a triple-vessel disease patient is scheduled to undergo coronary artery bypass grafting on Friday went home started smoking again started having chest pain. Chest x-ray was read as pulmonary edema. It is not elevated patient clinically doesn't have any JVD or crackles or wheezing. 11/09/2019 Patient is status post CABG he was extubated the last night. Patient is presently on norepinephrine, milrinone, IV insulin. Patient still has a [place]- Juni in place most of the management is being done by cardiac thoracic surgery patient was bit confused earlier today doing well now. 11/10/2019 Patient is still confused as per the family his confusion is better patient is a low-grade fever probably because of atelectasis a lot and blood cultures. Patient received Lasix for pulmonary edema, patient's mediastinal chest use with remote patient still has left pleural chest tubes Review of systems: Unable to obtain as patient is tired and sleepy All inpatient medications were reviewed and appropriate changes in these medications as dictated in the interval history and assessment and plan. 11/11/2019 Patient is seen and evaluated and follow-up currently remains in the ICU and is being closely monitored. Since hemoglobin was found to be 6.7 this morning and is currently receiving 1 unit of PRBCs. Potassium is 4.4, creatinine is 1.09, magnesium is 2.3. Patient went into atrial fibrillation with RVR and is being maintained on amiodarone drip and will transition to oral medications. Patient continues to have chest tubes along with indwelling Junior catheter which shows some hematuria as patient pulled it out. Patient has been afebrile with intermittent low-grade temps 99.7F and white count today is 14.1. Patient remains on an insulin drip and will continue at this time. Will continue to follow along closely with cardio thoracic surgery. 11/12/2019 Patient is seen and evaluated and follow-up continues to be closely monitored in the ICU. Patient is currently restless and seems to be having some shortness of breath. Patient is placed on nasal cannula although was mouth breathing and is currently on 5 L of oxygen. Patient was on insulin drip which has been discontinued and patient will be continued on sliding scale as patient now has a diet ordered although isn't eating very much. Patient continues to be confused and not following commands. Patient had a chest x-ray today status post chest tube removal showing no evidence of residual pneumothorax. Patient underwent brain CT yesterday showing patchy periventricular and deep white matter changes, left greater than right that have progressed since 01/19/2019 with demyelinating disease or other infectious inflammatory etiologies are possible, and no acute intracranial hemorrhage or midline shift noted. 11/13/2019 Patient became to Make and found to have metabolic acidosis with respiratory compensation progressively got fatigued event into respiratory failure subsequently intubated patient received the bicarbonate infusion for severe metabolic acidosis and patient had lactic acidosis with the lactic acid going up to 11 which came down to 1.5 patient is also started on pressor support with Levophed on mechanical ventilator with tidal volume of 450 set up respiratory of 24 FiO2 of 50% PEEP of 5 urine output is fairly. Chest x-ray showing mild pulmonary vascular congestion with the pleural effusions bilaterally 11/14/2019 Patient the did not tolerate weaning trial. Patient remains on ventilatory support. Patient is a one dose of vancomycin patient is presently on IV Zosyn for fevers although etiology of fevers is not clear at this time. Patient blood sugars are high receiving 3 units every 4 hours as per sliding scale patient will be started on long-acting insulin 15 units and continue with sliding scale Review of systems: Unable to obtain as patient is tired and sleepy All inpatient medications were reviewed and appropriate changes in these medications as dictated in the interval history and assessment and plan. 11/15/2019 Patient is seen and evaluated and follow-up and currently remains in the ICU on mechanical ventilation and is being closely monitored. Patient continues to have a Dobbhoff for nutrition and remains on long-acting Levemir 15 units at bed along with sliding scale and will continue at this time. Patient is currently maintained on IV vancomycin along with Zosyn and infectious disease has been c onsulted. Patient is afebrile for 24 hours. White blood count is trending down and is currently 15.3 today. 11/16/2019 Patient is seen and evaluated in follow-up continues to be on a mechanical vent ilator and intubated with sedation and is being closely monitored in the ICU. Patient continues to have elevated blood sugars and have increased the long- acting Levemir to 20 units and will continue with sliding scale and added 5 units every 4 hours For tighter glycemic control. Patient remains on tube feedings at goal via a Dobbhoff system. Multiple medical consultations following. Patient is maintained on IV vancomycin and cefepime and will continue at this time. White blood count slowly trending down at 15.2 today. Chest x-ray showing some pleural effusions and a chest ultrasound was performed showing bilateral pleural effusions although small in size and were not marked. 11/17/2019 Patient is seen and evaluated in follow-up currently continued on a mechanical ventilator and intubated and continues to be closely monitored in the ICU. Sedation has been on hold and patient eyes are opening Although not following commands. patient underwent head CT showing no evidence of acute hemorrhage with areas of patchy low attenuation left parietal white matter as previously noted and are of indeterminate age and could possibly be on the basis of subacute ischemia with no significant interval change. Degenerative and suspect remote ischemic change also noted and correlate with MRI as clinically warranted. Neurology was consulted and pending at this time. Multiple medical consultations following. Patient is currently maintained on cefepime and vancomycin and will continue at this time. White blood count elevated at 15.0 With hemoglobin of 7.7. Current creatinine is 1.04. Patient remains afebrile. Will continue to monitor closely. 11/18/2019 Patient is seen and evaluated in follow-up today currently continues to be in the ICU being closely monitored. Remains intubated although have been holding propofol and patient appears to be following commands with the left extremity although right upper extremity is flaccid. Neurology evaluated the patient and recommended MRI and this will be done once patient is extubated and more stable. CT of the head findings are probable of a subacute stroke involving multiple patchy areas in the left MCA vascular territory with the possibility of a cardio embolic source. Patient did have transient atrial fibrillation. There is right ICA stenosis of 50-69% on the carotid Doppler. Patient's 2-D echo showed no obvious embolic source. Patient remains on aspirin and Plavix along with statin and will continue at this time. Attempts to use Precedex as patient is off propofol at this time. Multiple medical consultations following. Patient continues on IV antibiotics in the form of cefepime and vancomycin has been discontinued. Infectious disease is following. Today's chest x-ray shows diffuse bilateral pleural parenchymal changes correlate for ards, pulmonary edema, or diffuse pneumonia and patient is maintained on IV Lasix and will continue at this time. White count is 14.7 today, hemoglobin is 7.3. Current creatinine is 1.05 with a BUNs of 33. Ammonia level less than 9. Will continue to monitor closely. Review of systems: Unable to obtain as patient is intubated and sedated 11/19/2019 Patient is seen and evaluated and currently remains in the ICU being closely monitored. Patient was just recently extubated and tolerated well. Patient remains off sedation and continues to be on a small dose of Precedex. Patient also continues with a Dobbhoff tube feedings system and will continue at this time. Patient is awake and responding appropriately to simple commands. Right and left upper extremity traffic control officer strength noted. Right traffic control officer strength 3-5, left 4- 5. Patient is not talking as of yet although did mumble when asked a question and knodded head yes appropriately. Also medical consultations following. Patient is maintained on IV antibiotics and will continue at this time. White blood count slowly trending down and is currently 13.3. She remains on IV Lasix and current creatinine is 1.15 with a BUNs of 38. Sodium is 140. Patient is maintained on long-acting along with every 4 hours coverage and sliding scale and will continue at this time. Liver function slowly trending down. Patient is currently maintained on 4 L via nasal cannula. 11/20/19, patient is seen and evaluated in ICU; extubated yesterday. Patient is awake, follows very simple instructions, remains on 8 L high flow nasal cannula, O2 saturations 94%. Patient is hemodynamically stable not requiring any inotropes or pressors. Patient had an episode of A. fib with RVR yesterday and he received 2 boluses of amiodarone. Presently in normal sinus rhythm. Patient follows again simple instructions, but remains confused, oriented 1 to person. Continues to have Dobbhoff tube in place, and receiving enteral feeding. Remains on antibiotics in the form of Zosyn for presumptive aspiration. Laboratory review shows a white blood count of 20.5, hemoglobin 7.4; chemical profile significant for mild elevation in BUN of 36 Patient will continue to be monitored in ICU with empiric IV antibiotics; plan to wean off O2 as able; patient remains on aspirin, Plavix and Cardizem; diuretic therapy was continued Patient will remain on Dobbhoff tube feeding with plan to increase ambulation as possible 11/21/2019 Patient is seen and evaluated in ICU; patient reintubated yesterday after developing acute respiratory distress after developing atrial fibrillation with RVR which was treated with multiple medications including Cardizem drip and eventually metoprolol was increased to 50 mg 3 times a day; patient became bradycardic and developed pulmonary edema; patient remains sedated with propofol; CT angiogram of the chest was done which was negative for PE; chest x- ray shows improved pulmonary edema Patient remains on aspirin, Plavix and diuretics; continue with empiric antibiotic therapy; remains on nutritional support with Glucerna 11/22/2019 Patient is seen and evaluated in ICU; remains intubated and mechanically ventilated; patient had repeat chest x-ray this morning showing diffuse bilateral infiltrates and pleural effusion along with pneumothorax; patient remains on IV Lasix and is diuresing well; remains on tube feeding in form of Glucerna at rate of 75 mL per hour; blood pressure is stable without any pressor support; patient remains on IV antibiotics in the form of Zosyn and vancomycin; cultures have been negative so far 11/23/2019 Patient is seen and evaluated in follow up and continues to be in the ICU being closely monitored. Patient has been intubated and is currently sedated as patient will be undergoing bilateral chest tube placement for bilateral pleural effusions. Patient is maintained on IV lasix and will continue. Patient continues to be monitored closely while on IV antibiotics and will continue at this time. Will repeat am labs. 11/24/2019 Patient is seen and evaluated and follow-up currently remaining in the ICU slightly sedated on Precedex. Patient to continue with trials on the CPAP. Patient was able to follow simple commands with the upper extremities. Patient underwent bilateral chest tube placement and is being closely monitored. Hemoglobin is 7.8 today. Minimal output noted on the chest tubes today. Patient's respiratory status slightly improved status post chest tube placement. Patient is currently on Precedex for anxiety. Patient had an episode of a mucous plug last night and was suctioned by respiratory and resolved. Patient continues on tube feedings with the possibility and discussion of PEG and trach tube placement in the near future. 11/25/2019 Patient is seen today in follow-up currently remains in the ICU being closely monitored. Patient will be undergoing pacemaker placement today. BMP is within normal limits today. Patient continues to be intubated and remains on Precedex and will continue at this time. Patient continues with bilateral chest tubes along with indwelling Junior catheter. Feedings have been on hold for the procedure this morning. Will continue to monitor blood sugars closely. Repeat a.m. labs. 11/26/2019 Patient is seen in evaluated in follow-up and continues to be closely monitored in the ICU. Patient continues to have bilateral chest tubes to low intermittent suction. Patient was recently extubated and is maintained on 4 L via nasal cannula. Patient is awake alert and oriented 2-3 and answering questions appropriately. patient is status post permanent pacemaker placement yesterday. patient continues on antibiotics in the form of oral vancomycin for possible C. diff. today's chest x-ray shows pulmonary vascular congestion and patient is maintained on IV Lasix twice daily. will continue to monitor closely. 11/27/2019 Patient is currently sitting in the chair. Awake alert and oriented and responding slowly. No acute distress. Patient is currently on room air. Chest x-ray showed chest tubes have been removed. No evidence for residual pneumothorax. Pleural parenchymal stranding unchanged. Laboratory data showed WBC 12.3, hemoglobin 8.9, platelets 469 BUN 25 and creatinine 0.83. AST 39 ALT 87 Patient is being continued on Lasix 40 mg IV every 12 hours. Continued on breathing treatments. Patient is currently on oral vancomycin for possible C. difficile due to significant diarrhea and leukocytosis. Cardiology, pulmonary and ID is on board. Review of systems: constitutional: No reports of fatigue, fevers, or chills Cardiovascular: No reports of chest pain or palpitations Respiratory: No reports of shortness of breath or cough GI: No reports of nausea, vomiting, or diarrhea : No reports of dysuria or retention neurovascular: report some weakness, reports of numbness Objective - Vital Signs Vital signs: Vital Signs Temp 98.8 F 11/27/19 20:00 Pulse 82 11/27/19 22:00 Resp 20 11/27/19 22:00 BP 144/76 11/27/19 22:00 Pulse Ox 97 11/27/19 22:00 Intake & Output 11/27/19 11/27/19 11/28/19 06:59 18:59 06:59 Intake Total 500 1500 Output Total 1890 1265 475 Balance -1390 235 -475 Intake: Oral 500 1500 Output: Chest Tube Drainage 290 0 left lateral chest tube 100 0 right lateral chest tube 190 0 Urine 1600 1265 475 Other: Voiding Method Indwelling Catheter Indwelling Catheter Indwelling Catheter ABP, PAP, CO, CI - Last Documented Arterial Blood Pressure 155/55 Pulmonary Artery Pressure 30/17 Cardiac Output 4.5 Cardiac Index 2.3 - Exam Head: Atraumatic, normocephalic, Recently extubated, awake, alert and oriented 2-3. HEENT:Neck is supple. No neck masses. No thyromegaly. No JVD. Moist mucous membranes, PERRLA, EOMI, no icterus. Chest: Symmetrical chest expansion, crackles at the bases no rhonchi and no wheezes. bilateral chest tubes noted on the right and left Cardiac Exam: Normal S1 and S2, no S3 gallop, no murmur. Abdomen: Soft, nontender, no megaly, no rebound, no guarding, normal bowel sounds. Extremities: No clubbing, no edema, no cyanosis. Neurological Exam: awake, alert and oriented 2-3, moving all 4 extremities with the right more weak than the left, diffusely weak - Labs CBC & Chem 7: 11/27/19 04:41 11/27/19 04:41 Labs: Abnormal Lab Results - Last 24 Hours (Table) 11/27/19 11/27/19 11/27/19 Range/Units 00:28 04:41 04:41 WBC 12.3 H (3.8-10.6) k/uL RBC 2.84 L (4.30-5.90) m/uL Hgb 8.9 L (13.0-17.5) gm/dL Hct 28.3 L (39.0-53.0) % Plt Count 469 H (150-450) k/uL Chloride 109 H (98-107) mmol/L BUN 25 H (9-20) mg/dL Glucose 61 L (74-99) mg/dL POC Glucose (mg/dL) 106 H (75-99) mg/dL ALT 87 H (4-49) U/L 11/27/19 11/27/19 11/27/19 Range/Units 11:47 16:36 19:54 WBC (3.8-10.6) k/uL RBC (4.30-5.90) m/uL Hgb (13.0-17.5) gm/dL Hct (39.0-53.0) % Plt Count (150-450) k/uL Chloride (98-107) mmol/L BUN (9-20) mg/dL Glucose (74-99) mg/dL POC Glucose (mg/dL) 241 H 239 H 181 H (75-99) mg/dL ALT (4-49) U/L Assessment and Plan Assessment: -Coronary artery disease and non-ST elevation myocardial infarction status post CABG 5 vessel -status post permanent pacemaker placement due to Persistant Bradycardia. -bilateral pleural effusions status post bilateral chest tube placement of the left and right -Altered mental status most likely secondary to metabolic encephalopathy suspected, CVA, please refer to neurology evaluation. -New onset atrial fibrillation and RVR; remains rate controlled on amiodarone. -Type 2 diabetes; continue with Levemir 20 units subcu daily at bedtime; monitor Accu-Cheks every before meals and at bedtime with insulin sliding scale. -Peripheral vessel occlusive disease with prior peripheral stent placement. -Moderate severe COPD FEV1 of 60%; not in exacerbation; continue with bronchodilator nebulizer treatment and home inhaler therapy. -Acute kidney injury and acute shock liver secondary to hypotension, improving -DVT prophylaxis; subcu heparin -CODE STATUS; full code Plan: Patient to continue with current medications, management, and symptomatic treatment. patient was recently extubated and continues with bilateral chest tube for bilateral pleural effusions. Patient continues on IV lasix at this time. Multiple medical consultations following. Patient underwent permanent pacemaker placement yesterday. Will repeat am labs, and continue to monitor blood sugars closely. Further recommendations to follow. Prognosis is guarded. Time with Patient: Greater than 30
[2019-11-27 23:33] LABS: Glucose,Whole Blood 99 mg/dL (75-99)
[2019-11-28 04:03] LABS: Glucose,Whole Blood 88 mg/dL (75-99)
[2019-11-28] MEDS: INSULIN ASPART (NovoLOG) 100 UNIT/ML VIAL SQ SCH ×10 (04:12→20:15)
[2019-11-28 05:11] LABS: HCT 31.1 % (39.0-53.0); HGB 9.6 gm/dL (13.0-17.5); Hypochromasia Moderate; MCH 30.4 pg (25.0-35.0); MCHC 30.9 g/dL (31.0-37.0); MCV 98.6 fL (80.0-100.0); Macrocytosis Slight; Platelet Count 456 k/uL (150-450); RBC 3.15 m/uL (4.30-5.90); RDW 15.2 % (11.5-15.5); WBC 11.7 k/uL (3.8-10.6)
[2019-11-28 05:26] LABS: African American GFR (CKD) >90 (>60 ml/min/1.73 sqM); Anion Gap 9 mmol/L; Blood Urea Nitrogen 23 mg/dL (9-20); Calcium 9.2 mg/dL (8.4-10.2); Carbon Dioxide 25 mmol/L (22-30); Chloride 108 mmol/L (98-107); Glucose 75 mg/dL (74-99); Non-African American GFR(CKD) >90 (>60 ml/min/1.73 sqM); Sodium 142 mmol/L (137-145)
[2019-11-28] MEDS: CHOLESTYRAMINE (WITH SUGAR) 4 GM PACKET PO SCH ×4 (06:33→20:16)
[2019-11-28] MEDS: FERROUS SULFATE ORAL ELIXIR 300 MG/5 ML CUP PO SCH ×2 (06:33→18:11)
[2019-11-28] MEDS: VANCOMYCIN ORAL SOLUTION 250 MG/5 ML BOTTLE PO SCH ×3 (06:33→18:11)
[2019-11-28] MEDS: PANTOPRAZOLE 40 MG TABLET PO SCH (06:33)
[2019-11-28] MEDS: ASCORBIC ACID 500 MG TAB PO SCH ×2 (06:33→18:11)
--- NOTE | 2019-11-28 07:04 | XR ---
EXAMINATION TYPE: XR chest 1V portable DATE OF EXAM: 11/28/2019 HISTORY: pleural effusion. REFERENCE: Previous study dated 11/27/2019. FINDINGS: There has been a midline sternotomy. Bilateral pleural drains are in place. There is a bipo lar pacemaker in place on the left. There is alveolar airspace disease present bilaterally. This is worsened slightly. There is blunting of both CP angles and I could not exclude small effusions heart is enlarged. IMPRESSION: FINDINGS CONSISTENT WITH MILD HEART FAILURE.
--- NOTE | 2019-11-28 07:44 | P.PN ---
Subjective Progress Note Date: 11/28/19 Principal diagnosis: Symptomatic multivessel coronary artery disease, unstable angina, status post subendocardial myocardial infarction. Previous medical history of CAD with previous stent placement to the proximal circumflex and ostial OM1, hypertension, hyperlipidemia, chronic ongoing tobacco dependence, mild COPD with preoperative FEV1 60% of predicted, right internal carotid artery stenosis 50- 69%, peripheral arterial disease with previous arthrectomy and REGISTERED NURSE AMBULATORY of the left SFA, atherectomy and REGISTERED NURSE AMBULATORY of the left LANDFILL GRADER, with stenting of the left BRIAN, poorly controlled type 2 diabetes with preoperative hemoglobin A1c 9.1%, bladder cancer status post chemo and radiation, occasional marijuana use, medication noncompliance, and family history of premature coronary artery disease POD #20 CABG 5 with GR to the LAD, left radial artery to the obtuse marginal, reverse saphenous vein to the posterior lateral, sequential saphenous vein to the first and second diagonal performed on cardiopulmonary bypass with beating heart. Endoscopic vein harvest of the left greater saphenous vein from the ankle to the groin. Endoscopic harvest of the left radial artery. Epi-aortic ultrasound and ligation of left atrial appendage with 40 mm AtriCure clip Postoperative acute blood loss anemia, expected outcome given cardiopulmonary bypass and hemodilution Postoperative encephalopathy, unexpected but potential outcome given cardiopulmonary bypass and intraoperative cardiac arrest Postoperative new onset paroxysmal Afib with RVR, unexpected Postoperative acute hypoxemic respiratory failure requiring reintubation, secondary to metabolic acidosis and hypotension. Postoperative stage II pressure ulcer on coccyx, unexpected Postoperative bradycardia, unexpected POD #3 Medtronic dual-chamber permanent pacemaker implantation, axillary venography The patient was seen and examined in the intensive care unit this morning. He is up in the recliner in no acute distress. He is alert and awake, he moves all extremities and follows commands but is still confused, he is much more calm in the last 24 hours although does still have sitter at the bedside for impulsivity and safety. He has left and right pleural chest tubes, Newman catheter present. No hematuria present this morning. Remains on oral vancomycin per infectious disease. He has been able to tolerate oral intake without difficulty. Objective - Vital Signs Vital signs: Vital Signs Temp 97.9 F 11/28/19 04:00 Pulse 91 11/28/19 07:00 Resp 20 11/28/19 07:00 BP 133/60 11/28/19 07:00 Pulse Ox 96 11/28/19 07:00 Intake & Output 11/27/19 11/28/19 11/28/19 18:59 06:59 18:59 Intake Total 1500 Output Total 1265 1275 40 Balance 235 -1275 -40 Intake: Oral 1500 Output: Chest Tube Drainage 0 left lateral chest tube 0 right lateral chest tube 0 Urine 1265 1275 40 Other: Voiding Method Indwelling Catheter Indwelling Catheter ABP, PAP, CO, CI - Last Documented Arterial Blood Pressure 155/55 Pulmonary Artery Pressure 30/17 Cardiac Output 4.5 Cardiac Index 2.3 - Constitutional General appearance: Present: cooperative, no acute distress - Respiratory Details: Lungs sounds diminished bilaterally. Respirations even, nonlabored. Currently on room air with oxygen saturation 95%. Left pleural chest tube connected to continuous wall suction, 85 mL serous drainage overnight, unable to calculate the last 24 hours due to previous Pleur-evac being dominant hand no recorded output since yesterday morning. Right pleural chest tube connected to continuous wall suction, 140 mL serous drainage overnight, 500 mL in the last 24 hours. No air leaks present. - Cardiovascular Details: S1, S2 present. Regular rate and rhythm, sinus rhythm on telemetry. Sternum stable. Palpable peripheral pulses bilaterally, no edema present. Heart hugger, antiembolism stockings, SCDs present. - Gastrointestinal Gastrointestinal Comment(s): Abdomen soft, nontender, nondistended. Active bowel sounds present 4 quadrants. Fecal management system in place with liquid brown stool. Tolerating diet - Genitourinary Genitourinary Comment(s): Newman present draining clear, yellow urine. Output 40-110 mL/h overnight - Integumentary Integumentary Comment(s): Skin is warm and dry with evidence of good perfusion. Anterior chest incision well approximated and covered with dry intact dressing. Left lower extremity EVH site well approximated without drainage or redness. Left radial artery tse rvest site dry and intact without redness or drainage, good cap refill. Stage II pressure ulcer present to coccyx area, Optifoam dressing dry and intact. - Neurologic Neurologic: Present: CNII-XII intact - Musculoskeletal Musculoskeletal: Present: generalized weakness - Psychiatric Psychiatric Comment(s): Oriented to person only, does follow commands selectively - Allied health notes Allied health notes reviewed: nursing - Labs CBC & Chem 7: 11/28/19 04:56 11/28/19 04:56 Labs: Abnormal Lab Results - Last 24 Hours (Table) 11/27/19 11/27/19 11/27/19 Range/Units 11:47 16:36 19:54 WBC (3.8-10.6) k/uL RBC (4.30-5.90) m/uL Hgb (13.0-17.5) gm/dL Hct (39.0-53.0) % MCHC (31.0-37.0) g/dL Plt Count (150-450) k/uL Chloride (98-107) mmol/L BUN (9-20) mg/dL POC Glucose (mg/dL) 241 H 239 H 181 H (75-99) mg/dL 11/28/19 11/28/19 Range/Units 04:56 04:56 WBC 11.7 H (3.8-10.6) k/uL RBC 3.15 L (4.30-5.90) m/uL Hgb 9.6 L (13.0-17.5) gm/dL Hct 31.1 L (39.0-53.0) % MCHC 30.9 L (31.0-37.0) g/dL Plt Count 456 H (150-450) k/uL Chloride 108 H (98-107) mmol/L BUN 23 H (9-20) mg/dL POC Glucose (mg/dL) (75-99) mg/dL - Imaging and Cardiology Chest x-ray: report reviewed, image reviewed Assessment and Plan Assessment: 1. Symptomatic multivessel coronary artery disease, recent non-STEMI, status post 5 vessel CABG 2. Leukocytosis, maybe multifactoral. Blood, sputum, urine cultures negative to date although drawn after antibiotics started. 3. Previous stent placement to the proximal circumflex and ostial OM1 4. History of hypertension 5. History of hyperlipidemia 6. Chronic ongoing tobacco dependence 7. Mild COPD, preoperative FEV1 60% of predicted value 8. Right internal carotid artery stenosis 50-69%. 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 9. History of peripheral arterial disease with previous arthrectomy and REGISTERED NURSE AMBULATORY of the left SFA and atherectomy and REGISTERED NURSE AMBULATORY of the left LANDFILL GRADER with stenting of the left BRIAN 10. Poorly controlled diabetes mellitus type 2 with hyperglycemia, admission hemoglobin A1c 9.1% 11. History of bladder cancer status post radiation, chemotherapy treatment and bladder surgery 12. Occasional marijuana use 13. Medication noncompliance 14. Family history of early onset coronary artery disease 15. Postoperative acute blood loss anemia, expected 16. Postoperative encephalopathy, unexpected 17. Mild ISAAC, resolved 18. Afib with RVR, status post left atrial appendage ligation, currently Sinus Rhythm 19. Hematuria, resolved, likely from patient pulling at newman catheter 20. Postoperative acute hypoxic respiratory failure requiring reintubation, secondary to metabolic acidosis and hypotension 21. Elevated transaminase levels, shock liver, secondary to hypotension, trending down 22. New stage II pressure ulcer, coccyx 23. Postoperative bilateral pleural effusions, status post bilateral pleural chest tube placement 24. Postoperative bradycardia, status post Medtronic dual-chamber pacemaker Plan: 1. Continue aspirin, Plavix, statin, beta gaurav, Cozaar. Will increase beta gaurav therapy as tolerated. 2. Continue amiodorone for atrial fibrillation prophylaxis. No anticoagulation necessary 3. Will start calcium channel gaurav today for radial artery prophylaxis. Please do not discontinue without discussing was cardiac surgery 4. Keep Newman catheter in place for accurate I&O. Newman catheter was changed on 11/14/2019. 5. Continue Optifoam dressing pressure ulcer per Dr. Diaz. Turn minimum every 2 hours. 6. Bronchodilators per pulmonology. Encourage incentive spirometry use 7. Continue to monitor right and left pleural chest tube output. Will discontinue chest tubes once there is minimal output. Chest tubes placed to [facility] today. 8. Will monitor daily labs and chest x-rays. Elective replacement per protocol. 9. Pain management per current medication regimen 10. GI/DVT prophylaxis. 11. Insulin management per primary care service. 12. Continue 40 mg Lasix q12 13. Reorient as necessary. Continue to assess mental status 14. Continue vancomycin per infectious disease 15. Patient will need rehab at discharge. Discussed with the possibility of LTAC, she is not interested as the drive is too far for her. Likely will discharge to [facility] when ready. 16. More recommendations to follow based on patient's clinical course. Time with Patient: Greater than 30
[2019-11-28] MEDS: IPRATROPIUM-ALBUTEROL 3 ML NEB INHALATION SCH ×4 (08:19→19:54)
[2019-11-28] MEDS: QUEtiapine 25 MG TAB PO PRN ×2 (08:29→20:21)
[2019-11-28] MEDS: AMIODARONE 200 MG TAB PO SCH ×2 (08:29→20:15)
[2019-11-28] MEDS: NYSTATIN 100,000 UNIT/ML SUSP 500,000 UNIT/5 ML CUP PO SCH ×4 (08:29→20:17)
[2019-11-28] MEDS: ASPIRIN 325 MG TAB PO SCH (08:29)
[2019-11-28] MEDS: ATORVASTATIN 40 MG TAB PO SCH (08:29)
[2019-11-28] MEDS: FUROSEMIDE 10 MG/ML 4 ML VIAL IV SCH ×2 (08:29→20:16)
[2019-11-28] MEDS: HEPARIN SODIUM,PORCINE 5,000 UNIT/ML 1 ML VIAL SQ SCH ×2 (08:29→18:10)
[2019-11-28] MEDS: CLOPIDOGREL 75 MG TAB PO SCH (08:29)
[2019-11-28] MEDS: LOSARTAN 25 MG TAB PO SCH (08:29)
[2019-11-28] MEDS: METOPROLOL TARTRATE 50 MG TAB PO SCH ×2 (08:30→20:15)
--- NOTE | 2019-11-28 12:03 | P.PN ---
Subjective Progress Note Date: 11/28/19 History of present illness: This is a 64-year-old male with past history of coronary artery disease with previous stent placement, hypertension, hyperlipidemia, tobacco use and dependence, mild COPD. Patient is status post CABG 5, postop day #19. Patient remains in intensive care unit. He has had a pacemaker placed in heart rate is running 90s to 100. Patient has pleural chest tubes, Junior, fecal management system in place. He also has a sitter at the bedside due to metabolic encephalopathy. Patient has been maintained on amiodarone, Lipitor, Lasix Lopressor. 11/27: Patient remains in intensive care unit, safety attendant at bedside. Patient continues to have confusion, speech is very difficult to understand low-volume and mumbles. monitor car operator is a sinus rhythm. Pleural chest tubes remain in place as well as Junior catheter and fecal management system. Repeat blood work reveals WBC 11.7, hemoglobin 9.6. Potassium 4.0, BUN 23 and creatinine 0.88. Physical examination: Gen: This is a 64-year-old male sitting in the recliner with a sitter at the bedside. VS: Afebrile, heart rate 105, blood pressure 147/72, pulse ox 92% on room air. HEENT: Head is atraumatic, normocephalic. Pupils equal, round. Sclerae is anicteric. NECK: Supple. No JVD. No lymphadenopathy. No thyromegaly. LUNGS: Diminished breath sounds bilaterally.. Chest tubes in place. HEART: Regular rate and rhythm. No murmur. ABDOMEN: Soft. Bowel sounds are present. No masses. No tenderness. Junior catheter in fecal management system in place. EXTREMITIES: No pedal edema. No calf tenderness. NEUROLOGICAL: Patient is awake, alert and oriented x3. Cranial nerves 2 through 12 are grossly intact. Assessment: Coronary artery disease status post CABG Bradycardia status post permanent pacemaker Hypertension Hyperlipidemia COPD Plan: Continue amiodarone 200 mg twice daily, Lipitor, aspirin, Plavix Continue Lasix 40 mg IV every 12 hours Continue losartan 25 mg daily, Lopressor 50 mg twice daily. Further recommendations to follow based upon clinical course Nurse practitioner note has been reviewed, I agree with documented findings and plan of care. Patient was seen and examined. Objective - Vital Signs Vital signs: Vital Signs Temp 97.9 F 11/28/19 04:00 Pulse 92 11/28/19 08:31 Resp 20 11/28/19 07:00 BP 133/60 11/28/19 07:00 Pulse Ox 96 11/28/19 07:00 Intake & Output 11/27/19 11/28/19 11/28/19 18:59 06:59 18:59 Intake Total 1500 Output Total 1265 1275 40 Balance 235 -1275 -40 Intake: Oral 1500 Output: Chest Tube Drainage 0 left lateral chest tube 0 right lateral chest tube 0 Urine 1265 1275 40 Other: Voiding Method Indwelling Catheter Indwelling Catheter ABP, PAP, CO, CI - Last Documented Arterial Blood Pressure 155/55 Pulmonary Artery Pressure 30/17 Cardiac Output 4.5 Cardiac Index 2.3 - Labs CBC & Chem 7: 11/28/19 04:56 11/28/19 04:56 Labs: Abnormal Lab Results - Last 24 Hours (Table) 11/27/19 11/27/19 11/27/19 Range/Units 11:47 16:36 19:54 WBC (3.8-10.6) k/uL RBC (4.30-5.90) m/uL Hgb (13.0-17.5) gm/dL Hct (39.0-53.0) % MCHC (31.0-37.0) g/dL Plt Count (150-450) k/uL Chloride (98-107) mmol/L BUN (9-20) mg/dL POC Glucose (mg/dL) 241 H 239 H 181 H (75-99) mg/dL 11/28/19 11/28/19 Range/Units 04:56 04:56 WBC 11.7 H (3.8-10.6) k/uL RBC 3.15 L (4.30-5.90) m/uL Hgb 9.6 L (13.0-17.5) gm/dL Hct 31.1 L (39.0-53.0) % MCHC 30.9 L (31.0-37.0) g/dL Plt Count 456 H (150-450) k/uL Chloride 108 H (98-107) mmol/L BUN 23 H (9-20) mg/dL POC Glucose (mg/dL) (75-99) mg/dL
[2019-11-28 12:11] LABS: Glucose,Whole Blood 219 mg/dL (75-99)
--- NOTE | 2019-11-28 12:17 | P.PN ---
Subjective Progress Note Date: 11/28/19 Principal diagnosis: Coronary artery disease with unstable angina, and non-ST segment elevation myocardial infarction, status post 5 vessel bypass grafting This is a 64-year-old male patient with coronary artery disease, noncompliant to medication. The patient came in with subendocardial infarction and cardiac catheterization showed diffuse coronary artery disease with critical stenosis. The patient underwent coronary artery bypass today. The patient underwent bypass 5 with GR to LAD, radial artery graft to acute marginal, saphenous finger after 2 posterior lateral and sick ration saphenous vein to first and second diagonal performed on cardiac pulmonary bypass with beating heart. Left atrial appendage was also added. The patient currently is in the intensive care unit. I centimeters in regards to the ICU. He was initially on a SIMV mode of ventilation at the rate of 12 with a tidal volume of 500 and FiO2 of 100% with a PEEP of 5 and a pressure support of 5. The blood gas showed a pH of 7.318 with a pCO2 of 49 and pO2 of 226. The chest x-ray postop showed volume overload with pulmonary vascular congestion and interstitial edema. The lines and tubes are all in good location. Based on all this, I increased the respiratory rate of 24. I do not FiO2 down to 60%. Current cardiac output is at 2.6 with an index of 5. The patient has 2 mediastinal 1 right pleural and 1 left pleural chest tube. Ultrasound of the sternal chest tubes has been around 150 mL since he arrived from the operating room. No evidence of any air leak. The patient is currently on a Cardizem drip and milrinone drip and the patient is on insulin drip for blood sugar control.he is well sedated. Is quite symptoms with the mechanical ventilator. Postoperative hemoglobin is at 8.2. Platelet count is down to 78. On today's evaluation of 11/09/2019, I'm seeing the patient for a follow-up. The patient was operated on yesterday and the patient underwent a five-vessel bypass surgery including a GR and the radial artery harvest. The patient was extubated within 6 hours and currently the patient is on oxygen by nasal cannula at 5 L. He is pleasantly confused this morning. He is able to sit up on a recliner. Hemodynamically, he did have some early of hypotension earlier this morning and for that reason the patient was given 750 mL of colloids and following that he was started on low-dose levo fed at 0.03 g per KG per minute. The patient remains on Primacor running at 0.125 g and the patient is also on Cardizem at 5 mg an hour. Insulin drip is running at 2.5 units an hour. Hemodynamically, the patient's cardiac output is at 4.2 with an index of 2.2. The pulmonary artery pressure 28/12. CVP is at 11. Cardiac output is at 4.2. He is in his normal sinus rhythm. He has a backup VVI at the rate of 50. His chest x-rays showing small bilateral apical pneumothoraces. All of the chest tubes are in good location. The right and left pleural chest tube connected and they have drained approximately 130 mL over the past 8 hours. He is tender tub es are also connected and it has drained approximately 140 mL over the past 8 hours. The patient otherwise has no specific complaints. Sternum stable clean and intact. He is producing urine output in the order of 20-30 mL an hour. No other significant events overnight. Hemoglobin stable at 7.9. The platelet count improved to 102. On 11/10/2019, the patient is postop day #2. The patient is confused. He is nonverbal. He is not answering questions and is not following any commands. Upon watching him, I felt that the left side of the body slightly cachectic compared to the right. Nevertheless, the same as the patient was not cheered by the nursing staff been observing this patient longer to me. He has no preferential gaze toseizure activity. No reported shortness of breath or res piratory distress at this point in time. Mediastinal chest tubes and the pleural chest tubes are all in place. The patient has an AV epicardial pacer wire grounded to generator. As of yesterday, the patient was taken off the pressors. The patient is currently off the levo fed and he is off the Primacor. The patient also had the ALYX drains removed from the left lower extremity and arm. No other significant issues for now. No cardiac arrhythmias. No nausea. No vomiting. No emesis. He is resting comfortably in bed. The patient's hemoglobin is at 7.0. Was a causative 4.7. Diminished pulmonary vascular congestion and infiltration of the right lung base. There is resolution of the previously described bilateral pneumothoraces. On today's evaluation of 11/11/2019, the patient remains confused. I was told that he was able to say some few words. I was also told by the nursing staff that the patient was witnessed EXTREMITIES WITHOUT ANY LIMITATION IN PATIENT HAVING ANY FOCAL NEUROLOGICAL DEFICIT. NOTE THAT THE PATIENT EARLIER THIS MORNING WITH ATRIAL FIBRILLATION WITH RAPID VENTRICULAR RESPONSE. HIS HEART RATE WENT UP TO 180 beats per minute without any significant hypotension. That point, the patient was given amiodarone boluses and the patient received a total of 3 boluses prior to my arrival. He was also given 5 mg of IV Lopressor. Her, bilateral, the patient was still in atrial fibrillation. He was trying to hurt at times he thought it was going down. His baseline rhythm was atrial fibrillation and heart rate was in the range of 100-120. The patient denied having any chest pain. Sternum was stable treatment intact. No reported fever or chills. The mediastinal chest 11 already been removed yesterday. The right and the left pleural chest tubes are still in place and output is being noted. Chest x-ray from this morning showed adequate expansion of both lungs without evidence of any pneumothorax. No evidence of any pulmonary edema. The patient was being given Lasix 20 mg IV push every 12 hours. Hemoglobin from this morning was down to 6.7 and the patient was ordered to get a unit of packed RBC. Currently is postoperative #3 post 5 vessel coronary artery bypass surgery. On 11/12/2019 patient seen in follow-up in the intensive care unit, he is very restless on today's exam, although nursing reports some improvement in his neurological status, and apparently patient is answering questions appropriately, and he knows he is in the hospital, and he is given verbal responses to questions. he is awake and alert, he is restless, but appears to be in no acute distress, he is moving his legs and arms bilaterally, squirming in bed. Does not appear to be in any respiratory distress. He is currently on 5 L of oxygen, with pulse ox of 100%, hemodynamically patient is stable, no fever or chills. Lactate of Ringer's infusing at a rate of 40 ML per hour. Today's chest x-ray has been reviewed showing increasing airspace opacity of the right upper lobe, similar prominent interstitial markings, no pneumothorax, no pleural effusions. Left pleural chest tube is in place, with a total output of 340 ML in the last 24 hours, right pleural chest tube put out 380 mL of serosanguineous thin output in the last 24 hours, media still chest tubes have been discontinued. Patient has produced 1.3 L and urine output in the last 24 hours. Junior catheter remains in place. Today's lab work has been reviewed, showing white blood cell count of 17.6, hemoglobin is 9.3, sodium of 138, potassium 3.8, chloride is 108, CO2 is 20, B1 is 39, creatinine is 1.17. She is in sinus arrhythmia with frequent PACs on the monitor, amiodarone drip has been switched to oral amiodarone 400 mg twice daily, patient is on oral Cardizem 30 mg every 6 hours, and oral metoprolol 50 mg twice daily. Blood cultures have shown no growth at the 24-hour elly. Patient has been afebrile. evening sitter is at the bedside in view of confusion and agitation, Junior catheter still has hematuria, which is dark in color, yesterday's brain CT showed patchy. Ventricular and deep white matter changes, left greater than right which have progressed from 01/09/2019, and areas of subacute ischemia are not excluded, MRI can further evaluate, no acute intracranial hemorrhage or midline shift. On 11/17/2019 patient seen in follow-up in the intensive care unit, she is se dated, intubated, on mechanical ventilator, current vent settings are assist- control with a rate of 16, tidal and was 450, FiO2 is 40%, and PEEP of 5. This morning his blood gases reveal pO2 of 92, pCO2 34, pH is 7.47. Current IV drips include 0.9 normal saline at a rate of 5 ML per hour, and improving and is at 60 mics per kilo per minute, tube feedings are with vital high-protein at a rate of 54, with a goal of 54 with standard water flushes with 30 mL of water every 4 hours. Patient was given daily traction of sedation yesterday, he awoke, and reportedly follow commands, but quickly became very tachypneic and hypertensive and had to be placed back on mechanical ventilator. His chest x-ray shows stable findings, persistent central vascular congestion and bibasilar opacities. Small to moderate-sized bilateral pleural effusions, appear to be stable. Patient remains on IV Lasix at 40 mg every 12 hours, and he is very slightly negative, only 6 mL, however he did produced over 3 L in urine output in the last 24 hours. He is off the vasopressor support, his weight is stable, he does have some generalized edema involving his upper and lower extremities. Remains on empiric antibiotics in the form of cefepime and vancomycin. He is afebrile, his blood urine and sputum cultures have shown no growth thus far. Today's labs have been reviewed. His white blood cell is stable at 15, hemoglobin is 7.7, sodium is 136, the rest of electrolytes were within normal limits, B1 is 33, and creatinine is 1.04, his liver enzymes are coming down, AST is down to 130, ALT is 692, alk phos is fairly stable at 195, his pro-calcitonin level was elevated and 0.99, suggesting presence of bacterial infection. Patient has been afebrile, abdomen is soft, nontender, patient is tolerating tube feedings. His hematuria has cleared up. On 11/18/2019 patient seen in follow-up in the intensive care unit. Patient is still intubated, his sedation has been on hold since 7:00 this morning, patient is awake, he is following basic commands, squeezing with his left hand, however his right hand is flaccid, and patient is not able to squeeze with the right hand. His current vent settings are assist-control with a rate of 16, tidal volume is 450, FiO2 is 40%, and PEEP of 5. This is blood gases showed pO2 106, pCO2 35, and pH of 7.49. Currently on no drips other than 0.9 normal saline at a rate of KVO. Patient has been tolerating tube feedings. Yesterday we repeated his CT of the brain which showed no evidence of acute hemorrhage, areas of patchy low attenuation in the left parietal white matter previously noted on previous brain scan this could be on the basis of subacute ischemia. MRI of the brain was recommended, neurology consultation was requested and patient is suspected to have probable subacute stroke involving multiple patchy areas in the left MCA vascular territory consideration of cardioembolic source. Patient did have transient atrial fibrillation. Follow-up MRI and MRA of the brain will be done once the patient is extubated and is able to travel down to the MRI department. Today's chest x-ray shows diffuse bilateral pleural parenchymal changes, no pneumothorax. Consider pulmonary edema, or underlying pneumonia. So far blood and urine and sputum cultures remain negative. Patient is afebrile, hemodynamically he stable, empiric antibiotic coverage is with Zosyn, vancomycin has been discontinued, ID service is following. Patient is on IV Lasix at 40 mg every 12 hours. He has produced 2.7 L and urine output over last 24 hours, he is in -280 mL fluid balance. He seems to get slightly agitated at times, becomes hypertensive, today she is following commands, we will try to keep him off sedation, to fully assess his mentation and neurological status, we will repeat LFTs, and ammonia level. On 11/22/2019 patient seen in follow-up in the intensive care unit. To recap patient was admitted to the hospital on 11/07/2019, and he had his 5 vessel cor onary artery bypass grafting surgery and 11/08/2019 and patient was extubated on postoperative day 0 on 11/08/2019. In the postoperative period patient developed altered mental status worsening respiratory failure, symptomatic bradycardia and had to be emergently reintubated on 11/12/2019 and weaned and extubated on 11/19/2019. Patient is suspected to have sustained a subacute stroke involving multiple patchy areas in the left MCA distribution. He has not been able to travel to the MRI department for his follow-up MRI. Patient was weaned from the mechanical ventilator and extubated on 11/19/2019 last week however developed worsening hypoxia, pulmonary edema and had to be reintubated on 11/20/2019. Today she seen in the intensive care unit, sedated on 30 mics per kilo per minute of propofol infusion, and 0.9 normal seen at a rate of 10 ML per hour, he is intubated current vent settings are assist-control with a rate of 16, tidal line was 450, FiO2 is 50% and PEEP of 5, this was blood gases show pO2 of 123, pCO2 38 and pH of 7.51. His chest x-ray shows diffuse bilateral infiltrates and pleural effusion, sizable pneumothorax, interstitial pattern was noted. Patient remains on Lasix at 40 mg every 12 hours, diuresing, and he has made at 7.4 L in urine output in last 24 hours, and he is in -1.5 L net fluid balance over last 24 hours. He is receiving tube feedings with Glucerna 1.5 at a rate of 75 with a goal of 75 ML per hour. Afebrile and hemodynamically stable in the last 24 hours, not requiring any vasopressor support, today's labs have been reviewed showing limited cell count within normal limits at 9.9, hemoglobin is 7.0, electrolytes are within normal limits, BUN of 38, creatinine is 1.17, liver enzymes have steadily been improving, and AST is 93, ALT is 286, alkaline phosphatase was 199, his last ammonia level was back on the and was normal at less than 9. Blood sputum and urine cultures have shown no growth so far. Empiric and pneumatic coverage is with Zosyn and vancomycin On 11/23/2019 patient seen in follow-up in the intensive care unit, he opens eyes to verbal stimulation, he is following simple commands, he squeezing with his left hand, his right hand is quite weak, and almost flaccid. He is nodding his head appropriately to verbal questioning. Does not appear to be in any distress, yesterday we stopped his propofol infusion and put the patient on Precedex infusion which is currently infusing at a rate of 0.3 mics per kilo per hour. 0.9 normal saline at a rate of 20 ML, and he is tolerating his tube feedings of vital 1.2 at a rate of 70 with a goal of 70 with standard water flushes. His current vent settings are assist control with a rate of 16, tidal line is 450, FiO2 40% and PEEP of 5. Sometime in the last 24 hours patient has converted to sinus bradycardia, currently remains in sinus bradycardia with a rate of 54. Patient is currently being paced at AAI mode at a rate of 80 BPM. Hemodynamic patient stable, not on any pressors. Chest x-ray has been reviewed showing diffuse bilateral infiltrates and pleural effusions bilaterally, no sizable pneumothorax. Yesterday's ultrasound the chest showed a 4.8 cm pocket on the right and 3.2 cm pocket on the left. he remains on IV Lasix of 40 mg every 12 hours, and he is slightly positive net fluid balance, +111 mL over last 24 hours. He did however produced 3.2 L in urine output over the last 24 hours. He is on empiric antibiotics with Zosyn and oral vancomycin for possibility of C. diff, all his culture data has been negative thus far. Did have a low-grade fever this morning with a temp of 99.7F. Today's labs have been reviewed showing white blood cell count of 8.8, hemoglobin of 8.3, platelet count is 388, electrolytes are within normal limits, BUN is 39 creatinine is 1.21. His blood gas has been reviewed showing pO2 of 82, pCO2 of 36 and pH of 7.52. Dobbhoff tube is in place through which the patient is receiving tube feedings. lung sounds are clear, diminished at the bases, abdomen is soft, nontender. On 11/24/2019 patient seen in follow-up in intensive care unit, patient remains intubated, sedated on mechanical ventilator current settings are assist-control with a rate of 16, tidal line is 450, FiO2 is 40% and PEEP of 5. This morning blood gas was reviewed showing pO2 of 66, pCO2 36, and pH is 7.5. Patient is currently on Precedex at 0.2 mics per kilo per hour, this was cut back from this morning from 0.5 mics per kilo per hour, 0.9 normal saline at a rate of 10, no vasoactive drips. Patient is on Zosyn for empiric antibiotic coverage, all culture data including blood culture sputum and urine cultures have been negative. She did have a low-grade fever this morning with a temp of 100.3F. He is receiving tube feedings with the vital AF at a rate of 78 with a goal of 70 and standard water flushes. She has a Dobbhoff tube inserted through which she is receiving nutritional support. Yesterday patient tolerated some pressure support trials with pressure support of 10 and CPAP at 5, for several hours, however at 7:30 in the evening apparently patient went into A. fib with RVR, and possibly developed a mucous plug, out to worsening shortness of breath, and was placed back on assist control mode of ventilation. Patient had been on oral amiodarone and metoprolol, he had since converted back to sinus bradycardia, this morning he is paced at a rate of 80 BPM in the AAI mode of pacing, and his underlying rhythm is sinus bradycardia with a rate of 52 BPM. Today's chest x- ray has been reviewed showing bilateral patchy increased attenuation within the lungs. Patient remains on Zosyn for antibiotic coverage, sputum has shown no growth. Today's labs have been reviewed showing white blood cell count of 10.0, hemoglobin is 7.8, sodium is 142, potassium 3.8, chloride is 108, CO2 is 28, BUN of 38, and creatinine is 1.10. And is following simple commands, he is profoundly weak. We'll proceed with pressure-support trials again today. On 11/25/2019 patient seen in follow-up in the intensive care unit, he is awake and alert, he is following all commands, he is moving both upper and lower extremities, no unilateral weakness noted on today's exam, he is making eye contact, he is following command, he denies any acute distress, he remains intubated, he has been on pressure-support trials for the last 24 hours, he is done very well, tolerated them very well, no signs of agitation, he has been maintained on Precedex at 0.5 mics per kilo per hour, no other drips were IV fluids. No vasoactive drips. Tube feedings are currently off, she was receiving them with the vital AF at a rate of 70. Tube feedings are on hold for possibility of permanent pacemaker insertion. Patient still has AV wires in his chest connected to a permanent pacemaker and he is pacemaker dependent as the underlying rhythm is still bradycardic sinus mechanism with a rate of 40 BPM, last night apparently there was an issue with capturing and there is a concern that patient will need a permanent pacemaker, is a current pacemaker leads are developing some issues with capture. He is currently 100% paced at a rate of 70 at a mode of AAI. Blood pressure is stable. Lung sounds are clear, diminished at the bases, today's chest x-ray has been reviewed showing improved aeration, no sizable pneumothorax or pleural effusion. Dobbhoff tube ET tube and bilateral chest tubes remain in place. His right chest tube had 650 ML of thin serosanguineous output in last 24 hours, and left lateral chest tube had 830 mL of serosanguineous thin output in the last 24 hours, Junior catheter is in place, patient is producing good amount of urine, he remains on Lasix of 40 mg every 12 hours, he is in -2.4 L fluid balance over the last 24 hours. Today's labs have been reviewed showing limited cell count of 8.6, hemoglobin of 8.0, sodium is 142, potassium is 3.8, chloride is 110. Patient's blood gas was reviewed showing pO2 of 134, pCO2 of 38, and pH of 7.47, this was done on FiO2 of 40% on pressure-support of 10. On 11/26/2019 patient seen in follow-up in intensive care unit, it yesterday following his permanent pacemaker insertion procedure patient returned to the unit, he proceeded to wean on pressure-support trials, he did quite well, and was subsequently extubated. Today he is awake and alert, he is oriented to pers on and place, disoriented to time, he is following all commands, he is moving all 4 extremities, strength appears to be equal on bilateral sides, he is on 5 L the pulse ox of 97%, appears to be in no acute distress, is a paced rhythm on the monitor, he is status post permanent pacemaker insertion, his left upper chest incision is clean dry and intact, soft, no evidence of hematoma, with a surgical dressing, he is afebrile, hemodynamically patient is stable, he is not on any IV fluids. His chest x-ray has been reviewed showing mildly increased pulmonary vascular congestion. No evidence of any respiratory distress, lung sounds reveal clear breath sounds bilaterally. Following the extubation patient was given the bedside swallow evaluation which he successfully passed. Today's labs have been reviewed, showing white blood cell count of 8.7, hemoglobin of 8.0, platelet count is 357, sodium is 142, potassium 3.7, chloride is 110, B1 is 34, creatinine is 0.86. Blood, urine and sputum cultures are negative thus far. Continues on IV Lasix 40 mg every 12 hours he is in -1.5 L over last 24 hours. Right and left chest tubes remain in place, with 180 out of the left chest tube in the 180 out of the right chest above the last 24 hours no air leak. Apparently they will remain in place per CT surgery. FMS is in place, and patient continues to have liquid stool output, he continues on oral vancomycin for possibility of C. diff colitis. The patient is seen today 11/27/2019 in follow-up in the intensive care unit. He is currently sitting up in a chair at the bedside. Awake and alert in no acute distress. He is currently maintaining O2 saturations in the 90s on room air. No current IV fluids. Chest x-ray showing improvement in the pulmonary edema. Small right tiny effusion. Bilateral chest tubes remain in place. He is status post 4 units of packed red blood cells this admission. Current hemoglobin 8.9. White count 12.3. Sodium 134. Potassium 3.9. Creatinine 0.83. He remains on Lasix 40 mg IV every 12 hours, bronchodilators, oral vancomycin. Sitter is at the bedside. Taking in oral nutrition. The patient is seen today 11/28/2019 in follow-up in the intensive care unit. He is currently sitting up in a chair at the bedside. evening sitter in place. He currently turns his head to loud verbal stimuli. Some words are clear, some are mumbled. He is currently on room air and maintaining O2 saturations in the 90s. Chest tubes remain in place to waterseal. No IV fluids running. Chest x- ray continues to show some alveolar airspace disease bilaterally. Blunting of the costophrenic angles. Small effusions. Evidence of mild heart failure. He is status post 4 units of packed red blood cells this admission. Current hemoglobin 9.6. White count 11.7. Sodium 142. Potassium 4.0. Creatinine 0.88. Blood, urine and sputum cultures revealed no growth. He remains on Lasix 40 mg IV every 12 hours, bronchodilators, oral vancomycin. Objective - Vital Signs Vital signs: Vital Signs Temp 97.9 F 11/28/19 04:00 Pulse 92 11/28/19 08:31 Resp 20 11/28/19 07:00 BP 133/60 11/28/19 07:00 Pulse Ox 96 11/28/19 07:00 Intake & Output 11/27/19 11/28/19 11/28/19 18:59 06:59 18:59 Intake Total 1500 Output Total 1265 1275 40 Balance 235 -1275 -40 Intake: Oral 1500 Output: Chest Tube Drainage 0 left lateral chest tube 0 right lateral chest tube 0 Urine 1265 1275 40 Other: Voiding Method Indwelling Catheter Indwelling Catheter ABP, PAP, CO, CI - Last Documented Arterial Blood Pressure 155/55 Pulmonary Artery Pressure 30/17 Cardiac Output 4.5 Cardiac Index 2.3 - Exam GENERAL EXAM: Awake, alert, garbled speech 64-year-old male patient, on room air with a pulse ox in the 90s, patient is following simple commands, he is squeezing with both hands, strength appears equal in both hands, is making eye contact when spoken to HEAD: Normocephalic/atraumatic. EYES: Normal reaction of pupils, equal size. Conjunctiva pink, sclera white. NOSE: Clear with pink turbinates. Patient has a Dobbhoff feeding tube in place with tube feedings infusing THROAT: No erythema or exudates. NECK: No masses, no JVD, no thyroid enlargement, no adenopathy. CHEST: No chest wall deformity. Symmetrical expansion. Midsternal incision is clean dry and intact, bilateral chest tubes in place. left upper chest incision at the site of the permanent pacemaker insertion is clean dry and intact. LUNGS: Equal air entry with crackles in the bilateral posterior bases CVS: regular rate and rhythm, normal S1 and S2, no gallops, no murmurs, no rubs, ABDOMEN: Soft, nontender. No hepatosplenomegaly, normal bowel sounds, no guarding or rigidity. EXTREMITIES: No clubbing, no edema, no cyanosis, 2+ pulses and upper and lower extremities. MUSCULOSKELETAL: Muscle strength and tone normal. SPINE: No scoliosis or deformity SKIN: No rashes CENTRAL NERVOUS SYSTEM: Patient is awake and following simple commands - Labs CBC & Chem 7: 11/28/19 04:56 11/28/19 04:56 Labs: Abnormal Lab Results - Last 24 Hours (Table) 11/27/19 11/27/19 11/28/19 Range/Units 16:36 19:54 04:56 WBC 11.7 H (3.8-10.6) k/uL RBC 3.15 L (4.30-5.90) m/uL Hgb 9.6 L (13.0-17.5) gm/dL Hct 31.1 L (39.0-53.0) % MCHC 30.9 L (31.0-37.0) g/dL Plt Count 456 H (150-450) k/uL Chloride (98-107) mmol/L BUN (9-20) mg/dL POC Glucose (mg/dL) 239 H 181 H (75-99) mg/dL 11/28/19 Range/Units 04:56 WBC (3.8-10.6) k/uL RBC (4.30-5.90) m/uL Hgb (13.0-17.5) gm/dL Hct (39.0-53.0) % MCHC (31.0-37.0) g/dL Plt Count (150-450) k/uL Chloride 108 H (98-107) mmol/L BUN 23 H (9-20) mg/dL POC Glucose (mg/dL) (75-99) mg/dL Assessment and Plan Assessment: 1 Coronary artery disease without stable angina and non-STEMI. The patient underwent five-vessel bypass surgery on 11/08/2019. CABG 5 with GR to LAD, left radial artery to obtuse marginal, saphenous vein to posterior lateral, sequential saphenous vein to first and second diagonal performed on cardiopulmonary bypass with beating heart. Epi-aortic ultrasound and ligation of left atrial appendage with Atriclip. The patient is postop day #20. Hemodynamically stable. 2 Recurrent acute hypoxic respiratory failure, multifactorial, patient was initially intubated for the original surgery on 11/08/2019 with extubation on 11/08/2019, patient was re-intubated on 11/12/2019, for symptomatic bradycardia, worsening lactic acidosis, of unclear etiology. Patient was successfully weaned and extubated on 11/19/2019, and subsequently reintubated on 11/20/2019 for worsening hypoxemia related to pulmonary edema and A. fib with RVR. Antibiotics have been given empirically, cultures remain negative. 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 please refer to the neurology evaluation, improved, patient is awake and alert, responded to some simple commands, garbled speech at times 4 Chronic and ongoing tobacco dependence with chronic obstructive pulmonary disease, preoperative FEV1 value was 60% of predicted 5 Previous coronary artery disease with stent placement to the proximal circumflex and OM1 6 Peripheral vascular disease with prior peripheral stent placements 7 Right carotid artery stenosis at 50-69% 7 History of marijuana use 8 Diabetes mellitus, type II 9 History of bladder cancer status post radiation/chemotherapy and subsequent surgery 10 History of noncompliance Plan: The patient was seen and evaluated by Dr. Jn Escudero from the pulmonary standpoint Chest x-ray and labs reviewed Continue current treatment plan On room air, chest tubes remain in place We'll continue to follow make further recommendations based on his clinical status I, the cosigning physician, performed a history & physical examination of the patient. Lungs sounds with faint crackles in the posterior bases. Maintaining good O2 saturations in the 90s on room air. I discussed the assessment and plan of care with my nurse practitioner, Renetta Sanchez. I attest to the above note as dictated by her.
[2019-11-28] MEDS: DILTIAZEM ORAL 30 MG TAB PO SCH ×2 (12:44→18:11)
[2019-11-28 16:07] LABS: Glucose,Whole Blood 128 mg/dL (75-99)
[2019-11-28 20:06] LABS: Glucose,Whole Blood 273 mg/dL (75-99)
[2019-11-28] MEDS: INSULIN DETEMIR (LEVEMIR) 100 UNIT/ML SYR SQ SCH (20:16)
--- NOTE | 2019-11-28 21:06 | PN ---
PROGRESS NOTE DATE OF SERVICE: 11/28/2019 REASON FOR FOLLOWUP: Leukocytosis, diarrhea and a question of C-diff colitis. INTERVAL HISTORY: Patient is currently afebrile. The patient is hemodynamically stable. The patient is breathing comfortably on room air. No chest pain. No abdominal pain. Still having diarrhea. PHYSICAL EXAMINATION: Blood pressure 104/60 with a pulse of 83, temperature is 97.6, 96% on room air. General description is an elderly male up in the chair in no distress. Respiratory system: Unlabored breathing, decreased breath sounds in the bases. No wheeze. Heart S1, S2. Regular rate and rhythm. Abdomen is soft, no tenderness. LABS: Hemoglobin 9.8, white count 11.7, BUN of 23, creatinine 0.88. Blood in stool has been negative. DIAGNOSTIC IMPRESSION AND PLAN: Patient with leukocytosis, multifactorial with initial concern for pneumonia that has been treated. Sputum cultures have been negative. Chest x-ray morning is most likely heart failure. The patient did have slight jump in white count yesterday, however, is trending down. To continue along with oral vancomycin and Questran for symptomatic relief. Continue supportive care. MMODL / IJN: [id number] /
--- NOTE | 2019-11-28 23:07 | P.PN ---
Subjective Progress Note Date: 11/28/19 Principal diagnosis: -Coronary artery disease and non-ST elevation myocardial infarction status post CABG 5 vessel on 11/07 Patient is a 64-year-old male was recently discharged from the hospital came back in with the chest pain pressure-like sensation lasted for a few hours non exertional did have elevated troponins. Patient had a triple-vessel disease patient is scheduled to undergo coronary artery bypass grafting on Friday went home started smoking again started having chest pain. Chest x-ray was read as pulmonary edema. It is not elevated patient clinically doesn't have any JVD or crackles or wheezing. 11/09/2019 Patient is status post CABG he was extubated the last night. Patient is presently on norepinephrine, milrinone, IV insulin. Patient still has a [place]- Juni in place most of the management is being done by cardiac thoracic surgery patient was bit confused earlier today doing well now. 11/10/2019 Patient is still confused as per the family his confusion is better patient is a low-grade fever probably because of atelectasis a lot and blood cultures. Patient received Lasix for pulmonary edema, patient's mediastinal chest use with remote patient still has left pleural chest tubes Review of systems: Unable to obtain as patient is tired and sleepy All inpatient medications were reviewed and appropriate changes in these medications as dictated in the interval history and assessment and plan. 11/11/2019 Patient is seen and evaluated and follow-up currently remains in the ICU and is being closely monitored. Since hemoglobin was found to be 6.7 this morning and is currently receiving 1 unit of PRBCs. Potassium is 4.4, creatinine is 1.09, magnesium is 2.3. Patient went into atrial fibrillation with RVR and is being maintained on amiodarone drip and will transition to oral medications. Patient continues to have chest tubes along with indwelling Junior catheter which shows some hematuria as patient pulled it out. Patient has been afebrile with intermittent low-grade temps 99.7F and white count today is 14.1. Patient remains on an insulin drip and will continue at this time. Will continue to follow along closely with cardio thoracic surgery. 11/12/2019 Patient is seen and evaluated and follow-up continues to be closely monitored in the ICU. Patient is currently restless and seems to be having some shortness of breath. Patient is placed on nasal cannula although was mouth breathing and is currently on 5 L of oxygen. Patient was on insulin drip which has been discontinued and patient will be continued on sliding scale as patient now has a diet ordered although isn't eating very much. Patient continues to be confused and not following commands. Patient had a chest x-ray today status post chest tube removal showing no evidence of residual pneumothorax. Patient underwent brain CT yesterday showing patchy periventricular and deep white matter changes, left greater than right that have progressed since 01/19/2019 with demyelinating disease or other infectious inflammatory etiologies are possible, and no acute intracranial hemorrhage or midline shift noted. 11/13/2019 Patient became to Make and found to have metabolic acidosis with respiratory compensation progressively got fatigued event into respiratory failure subsequently intubated patient received the bicarbonate infusion for severe metabolic acidosis and patient had lactic acidosis with the lactic acid going up to 11 which came down to 1.5 patient is also started on pressor support with Levophed on mechanical ventilator with tidal volume of 450 set up respiratory of 24 FiO2 of 50% PEEP of 5 urine output is fairly. Chest x-ray showing mild pulmonary vascular congestion with the pleural effusions bilaterally 11/14/2019 Patient the did not tolerate weaning trial. Patient remains on ventilatory support. Patient is a one dose of vancomycin patient is presently on IV Zosyn for fevers although etiology of fevers is not clear at this time. Patient blood sugars are high receiving 3 units every 4 hours as per sliding scale patient will be started on long-acting insulin 15 units and continue with sliding scale Review of systems: Unable to obtain as patient is tired and sleepy All inpatient medications were reviewed and appropriate changes in these medications as dictated in the interval history and assessment and plan. 11/15/2019 Patient is seen and evaluated and follow-up and currently remains in the ICU on mechanical ventilation and is being closely monitored. Patient continues to have a Dobbhoff for nutrition and remains on long-acting Levemir 15 units at bed along with sliding scale and will continue at this time. Patient is currently maintained on IV vancomycin along with Zosyn and infectious disease has been c onsulted. Patient is afebrile for 24 hours. White blood count is trending down and is currently 15.3 today. 11/16/2019 Patient is seen and evaluated in follow-up continues to be on a mechanical vent ilator and intubated with sedation and is being closely monitored in the ICU. Patient continues to have elevated blood sugars and have increased the long- acting Levemir to 20 units and will continue with sliding scale and added 5 units every 4 hours For tighter glycemic control. Patient remains on tube feedings at goal via a Dobbhoff system. Multiple medical consultations following. Patient is maintained on IV vancomycin and cefepime and will continue at this time. White blood count slowly trending down at 15.2 today. Chest x-ray showing some pleural effusions and a chest ultrasound was performed showing bilateral pleural effusions although small in size and were not marked. 11/17/2019 Patient is seen and evaluated in follow-up currently continued on a mechanical ventilator and intubated and continues to be closely monitored in the ICU. Sedation has been on hold and patient eyes are opening Although not following commands. patient underwent head CT showing no evidence of acute hemorrhage with areas of patchy low attenuation left parietal white matter as previously noted and are of indeterminate age and could possibly be on the basis of subacute ischemia with no significant interval change. Degenerative and suspect remote ischemic change also noted and correlate with MRI as clinically warranted. Neurology was consulted and pending at this time. Multiple medical consultations following. Patient is currently maintained on cefepime and vancomycin and will continue at this time. White blood count elevated at 15.0 With hemoglobin of 7.7. Current creatinine is 1.04. Patient remains afebrile. Will continue to monitor closely. 11/18/2019 Patient is seen and evaluated in follow-up today currently continues to be in the ICU being closely monitored. Remains intubated although have been holding propofol and patient appears to be following commands with the left extremity although right upper extremity is flaccid. Neurology evaluated the patient and recommended MRI and this will be done once patient is extubated and more stable. CT of the head findings are probable of a subacute stroke involving multiple patchy areas in the left MCA vascular territory with the possibility of a cardio embolic source. Patient did have transient atrial fibrillation. There is right ICA stenosis of 50-69% on the carotid Doppler. Patient's 2-D echo showed no obvious embolic source. Patient remains on aspirin and Plavix along with statin and will continue at this time. Attempts to use Precedex as patient is off propofol at this time. Multiple medical consultations following. Patient continues on IV antibiotics in the form of cefepime and vancomycin has been discontinued. Infectious disease is following. Today's chest x-ray shows diffuse bilateral pleural parenchymal changes correlate for ards, pulmonary edema, or diffuse pneumonia and patient is maintained on IV Lasix and will continue at this time. White count is 14.7 today, hemoglobin is 7.3. Current creatinine is 1.05 with a BUNs of 33. Ammonia level less than 9. Will continue to monitor closely. Review of systems: Unable to obtain as patient is intubated and sedated 11/19/2019 Patient is seen and evaluated and currently remains in the ICU being closely monitored. Patient was just recently extubated and tolerated well. Patient remains off sedation and continues to be on a small dose of Precedex. Patient also continues with a Dobbhoff tube feedings system and will continue at this time. Patient is awake and responding appropriately to simple commands. Right and left upper extremity security system engineer strength noted. Right security system engineer strength 3-5, left 4- 5. Patient is not talking as of yet although did mumble when asked a question and knodded head yes appropriately. Also medical consultations following. Patient is maintained on IV antibiotics and will continue at this time. White blood count slowly trending down and is currently 13.3. She remains on IV Lasix and current creatinine is 1.15 with a BUNs of 38. Sodium is 140. Patient is maintained on long-acting along with every 4 hours coverage and sliding scale and will continue at this time. Liver function slowly trending down. Patient is currently maintained on 4 L via nasal cannula. 11/20/19, patient is seen and evaluated in ICU; extubated yesterday. Patient is awake, follows very simple instructions, remains on 8 L high flow nasal cannula, O2 saturations 94%. Patient is hemodynamically stable not requiring any inotropes or pressors. Patient had an episode of A. fib with RVR yesterday and he received 2 boluses of amiodarone. Presently in normal sinus rhythm. Patient follows again simple instructions, but remains confused, oriented 1 to person. Continues to have Dobbhoff tube in place, and receiving enteral feeding. Remains on antibiotics in the form of Zosyn for presumptive aspiration. Laboratory review shows a white blood count of 20.5, hemoglobin 7.4; chemical profile significant for mild elevation in BUN of 36 Patient will continue to be monitored in ICU with empiric IV antibiotics; plan to wean off O2 as able; patient remains on aspirin, Plavix and Cardizem; diuretic therapy was continued Patient will remain on Dobbhoff tube feeding with plan to increase ambulation as possible 11/21/2019 Patient is seen and evaluated in ICU; patient reintubated yesterday after developing acute respiratory distress after developing atrial fibrillation with RVR which was treated with multiple medications including Cardizem drip and eventually metoprolol was increased to 50 mg 3 times a day; patient became bradycardic and developed pulmonary edema; patient remains sedated with propofol; CT angiogram of the chest was done which was negative for PE; chest x- ray shows improved pulmonary edema Patient remains on aspirin, Plavix and diuretics; continue with empiric antibiotic therapy; remains on nutritional support with Glucerna 11/22/2019 Patient is seen and evaluated in ICU; remains intubated and mechanically ventilated; patient had repeat chest x-ray this morning showing diffuse bilateral infiltrates and pleural effusion along with pneumothorax; patient remains on IV Lasix and is diuresing well; remains on tube feeding in form of Glucerna at rate of 75 mL per hour; blood pressure is stable without any pressor support; patient remains on IV antibiotics in the form of Zosyn and vancomycin; cultures have been negative so far 11/23/2019 Patient is seen and evaluated in follow up and continues to be in the ICU being closely monitored. Patient has been intubated and is currently sedated as patient will be undergoing bilateral chest tube placement for bilateral pleural effusions. Patient is maintained on IV lasix and will continue. Patient continues to be monitored closely while on IV antibiotics and will continue at this time. Will repeat am labs. 11/24/2019 Patient is seen and evaluated and follow-up currently remaining in the ICU slightly sedated on Precedex. Patient to continue with trials on the CPAP. Patient was able to follow simple commands with the upper extremities. Patient underwent bilateral chest tube placement and is being closely monitored. Hemoglobin is 7.8 today. Minimal output noted on the chest tubes today. Patient's respiratory status slightly improved status post chest tube placement. Patient is currently on Precedex for anxiety. Patient had an episode of a mucous plug last night and was suctioned by respiratory and resolved. Patient continues on tube feedings with the possibility and discussion of PEG and trach tube placement in the near future. 11/25/2019 Patient is seen today in follow-up currently remains in the ICU being closely monitored. Patient will be undergoing pacemaker placement today. BMP is within normal limits today. Patient continues to be intubated and remains on Precedex and will continue at this time. Patient continues with bilateral chest tubes along with indwelling Junior catheter. Feedings have been on hold for the procedure this morning. Will continue to monitor blood sugars closely. Repeat a.m. labs. 11/26/2019 Patient is seen in evaluated in follow-up and continues to be closely monitored in the ICU. Patient continues to have bilateral chest tubes to low intermittent suction. Patient was recently extubated and is maintained on 4 L via nasal cannula. Patient is awake alert and oriented 2-3 and answering questions appropriately. patient is status post permanent pacemaker placement yesterday. patient continues on antibiotics in the form of oral vancomycin for possible C. diff. today's chest x-ray shows pulmonary vascular congestion and patient is maintained on IV Lasix twice daily. will continue to monitor closely. 11/27/2019 Patient is currently sitting in the chair. Awake alert and oriented and responding slowly. No acute distress. Patient is currently on room air. Chest x-ray showed chest tubes have been removed. No evidence for residual pneumothorax. Pleural parenchymal stranding unchanged. Laboratory data showed WBC 12.3, hemoglobin 8.9, platelets 469 BUN 25 and creatinine 0.83. AST 39 ALT 87 Patient is being continued on Lasix 40 mg IV every 12 hours. Continued on breathing treatments. Patient is currently on oral vancomycin for possible C. difficile due to significant diarrhea and leukocytosis. Cardiology, pulmonary and ID is on board. 11/28/2019 Patient is currently sitting in a chair. Patient is still drowsy but responds with verbal stimuli. Currently saturating at 90% on room air. No fever no chills. Chest tubes in place. Chest x-ray showed findings consistent with mild heart failure. Laboratory data showed WBC 11.7, hemoglobin slightly improved to 9.6. Platelets 456. BUN 23 and creatinine 0.88 patient is currently on cardiac diet. Review of systems: constitutional: No reports of fatigue, fevers, or chills Cardiovascular: No reports of chest pain or palpitations Respiratory: No reports of shortness of breath or cough GI: No reports of nausea, vomiting, or diarrhea : No reports of dysuria or retention neurovascular: report some weakness, reports of numbness Objective - Vital Signs Vital signs: Vital Signs Temp 97.9 F 11/28/19 20:00 Pulse 88 11/28/19 20:07 Resp 24 11/28/19 20:00 BP 137/66 11/28/19 20:00 Pulse Ox 94 L 11/28/19 20:00 Intake & Output 11/28/19 11/28/19 11/29/19 06:59 18:59 06:59 Intake Total 1000 236 Output Total 1275 580 30 Balance -1275 420 206 Intake: Oral 500 236 Tube Feeding 500 Output: Chest Tube Drainage 70 left lateral chest tube 30 right lateral chest tube 40 Urine 1275 510 30 Other: Voiding Method Indwelling Catheter Indwelling Catheter Indwelling Catheter ABP, PAP, CO, CI - Last Documented Arterial Blood Pressure 155/55 Pulmonary Artery Pressure 30/17 Cardiac Output 4.5 Cardiac Index 2.3 - Exam Head: Atraumatic, normocephalic, Recently extubated, awake, alert and oriented 2-3. HEENT:Neck is supple. No neck masses. No thyromegaly. No JVD. Moist mucous membranes, PERRLA, EOMI, no icterus. Chest: Symmetrical chest expansion, crackles at the bases no rhonchi and no wheezes. bilateral chest tubes noted on the right and left Cardiac Exam: Normal S1 and S2, no S3 gallop, no murmur. Abdomen: Soft, nontender, no megaly, no rebound, no guarding, normal bowel sounds. Extremities: No clubbing, no edema, no cyanosis. Neurological Exam: awake, alert and oriented 2-3, moving all 4 extremities with the right more weak than the left, diffusely weak - Labs CBC & Chem 7: 11/28/19 04:56 11/28/19 04:56 Labs: Abnormal Lab Results - Last 24 Hours (Table) 11/28/19 11/28/19 11/28/19 Range/Units 04:56 04:56 12:10 WBC 11.7 H (3.8-10.6) k/uL RBC 3.15 L (4.30-5.90) m/uL Hgb 9.6 L (13.0-17.5) gm/dL Hct 31.1 L (39.0-53.0) % MCHC 30.9 L (31.0-37.0) g/dL Plt Count 456 H (150-450) k/uL Chloride 108 H (98-107) mmol/L BUN 23 H (9-20) mg/dL POC Glucose (mg/dL) 219 H (75-99) mg/dL 11/28/19 11/28/19 Range/Units 16:05 20:04 WBC (3.8-10.6) k/uL RBC (4.30-5.90) m/uL Hgb (13.0-17.5) gm/dL Hct (39.0-53.0) % MCHC (31.0-37.0) g/dL Plt Count (150-450) k/uL Chloride (98-107) mmol/L BUN (9-20) mg/dL POC Glucose (mg/dL) 128 H 273 H (75-99) mg/dL Assessment and Plan Assessment: -Coronary artery disease and non-ST elevation myocardial infarction status post CABG 5 vessel -status post permanent pacemaker placement due to Persistant Bradycardia. -bilateral pleural effusions status post bilateral chest tube placement of the left and right -Altered mental status most likely secondary to metabolic encephalopathy. Probable subacute stroke involving multiple patchy areas in the left MCA vascular territory. neurology evaluation. -New onset atrial fibrillation and RVR; remains rate controlled on amiodarone. -Type 2 diabetes; continue with Levemir 20 units subcu daily at bedtime; monitor Accu-Cheks every before meals and at bedtime with insulin sliding scale. -Peripheral vessel occlusive disease with prior peripheral stent placement. -Moderate severe COPD FEV1 of 60%; not in exacerbation; continue with bronchodilator nebulizer treatment and home inhaler therapy. -Acute kidney injury and acute shock liver secondary to hypotension, improving -DVT prophylaxis; subcu heparin -CODE STATUS; full code Plan: Patient to continue with current medications, management, and symptomatic treatment. patient was recently extubated and continues with bilateral chest tube for bilateral pleural effusions. Patient continues on IV lasix at this time. Multiple medical consultations following. Patient underwent permanent pacemaker placement yesterday. Will repeat am labs, and continue to monitor blo od sugars closely. Further recommendations to follow. Prognosis is guarded. Time with Patient: Greater than 30
[2019-11-28 23:54] LABS: Glucose,Whole Blood 162 mg/dL (75-99)
[2019-11-29] MEDS: INSULIN ASPART (NovoLOG) 100 UNIT/ML VIAL SQ SCH ×12 (00:01→20:18)
[2019-11-29] MEDS: VANCOMYCIN ORAL SOLUTION 250 MG/5 ML BOTTLE PO SCH ×5 (00:05→22:54)
[2019-11-29] MEDS: DILTIAZEM ORAL 30 MG TAB PO SCH ×5 (00:05→22:54)
[2019-11-29 04:12] LABS: Glucose,Whole Blood 67 mg/dL (75-99)
[2019-11-29 04:31] LABS: Glucose,Whole Blood 63 mg/dL (75-99)
[2019-11-29 04:31] LABS: Glucose,Whole Blood 60 mg/dL (75-99)
[2019-11-29 04:31] LABS: Glucose,Whole Blood 56 mg/dL (75-99)
[2019-11-29] MEDS ORDERED: DEXTROSE 50% SYRINGE 50 ML IVP ONE (04:36)
[2019-11-29 04:40] LABS: Glucose,Whole Blood 62 mg/dL (75-99)
[2019-11-29] MEDS ORDERED: DEXTROSE 50% SYRINGE 50 ML IVP STA (04:40)
[2019-11-29 04:51] LABS: Glucose,Whole Blood 216 mg/dL (75-99)
[2019-11-29 05:05] LABS: HCT 32.4 % (39.0-53.0); HGB 10.2 gm/dL (13.0-17.5); Hypochromasia Moderate; MCH 30.8 pg (25.0-35.0); MCHC 31.4 g/dL (31.0-37.0); MCV 98.3 fL (80.0-100.0); Macrocytosis Slight; Mean Platelet Volume 7.8; Platelet Count 508 k/uL (150-450); RDW 15.2 % (11.5-15.5); WBC 15.8 k/uL (3.8-10.6)
[2019-11-29 05:16] LABS: Calcium 9.8 mg/dL (8.4-10.2); Magnesium 2.1 mg/dL (1.6-2.3); Potassium 4.2 mmol/L (3.5-5.1)
[2019-11-29 06:25] LABS: Glucose,Whole Blood 145 mg/dL (75-99)
[2019-11-29] MEDS: ASCORBIC ACID 500 MG TAB PO SCH ×2 (06:36→17:09)
[2019-11-29] MEDS: PANTOPRAZOLE 40 MG TABLET PO SCH (06:36)
[2019-11-29] MEDS: FERROUS SULFATE ORAL ELIXIR 300 MG/5 ML CUP PO SCH ×2 (06:36→17:09)
[2019-11-29] MEDS: CHOLESTYRAMINE (WITH SUGAR) 4 GM PACKET PO SCH ×4 (06:36→20:19)
[2019-11-29] MEDS: IPRATROPIUM-ALBUTEROL 3 ML NEB INHALATION SCH ×5 (07:26→20:11)
--- NOTE | 2019-11-29 07:35 | P.PN ---
Subjective Progress Note Date: 11/29/19 Principal diagnosis: Coronary artery disease and status post CABG This is a 64-year-old gentleman with coronary artery disease and prior coronary artery stenting as well as hypertension and dyslipidemia and history of smoking and COPD who underwent CABG and this is postoperative patient the #20. The patient was seen this morning. He continues to have a change in mental status. Otherwise hemodynamically he is stable. He has been maintaining normal sinus mechanism. The blood pressure has been on the low side. He is on maximize medical treatment including dual antiplatelet therapy as well as statin. Objective - Vital Signs Vital signs: Vital Signs Temp 97.8 F 11/29/19 04:00 Pulse 89 11/29/19 07:00 Resp 19 11/29/19 07:00 BP 101/63 11/29/19 07:00 Pulse Ox 99 11/29/19 07:00 Intake & Output 11/28/19 11/29/19 11/29/19 18:59 06:59 18:59 Intake Total 1000 726 Output Total 580 1340 40 Balance 420 -614 -40 Intake: IV 10 .9NS @ 10 ml/hr 10 Oral 500 716 Tube Feeding 500 Output: Chest Tube Drainage 70 left lateral chest tube 30 right lateral chest tube 40 Urine 510 1340 40 Other: Voiding Method Indwelling Catheter Indwelling Catheter ABP, PAP, CO, CI - Last Documented Arterial Blood Pressure 155/55 Pulmonary Artery Pressure 30/17 Cardiac Output 4.5 Cardiac Index 2.3 - Constitutional General appearance: Present: no acute distress - Respiratory Respiratory: bilateral: diminished - Cardiovascular Rhythm: regular - Labs CBC & Chem 7: 11/29/19 04:44 11/29/19 04:44 Labs: Abnormal Lab Results - Last 24 Hours (Table) 11/28/19 11/28/19 11/28/19 Range/Units 12:10 16:05 20:04 WBC (3.8-10.6) k/uL RBC (4.30-5.90) m/uL Hgb (13.0-17.5) gm/dL Hct (39.0-53.0) % Plt Count (150-450) k/uL BUN (9-20) mg/dL Glucose (74-99) mg/dL POC Glucose (mg/dL) 219 H 128 H 273 H (75-99) mg/dL ALT (4-49) U/L 11/28/19 11/29/19 11/29/19 Range/Units 23:52 04:11 04:20 WBC (3.8-10.6) k/uL RBC (4.30-5.90) m/uL Hgb (13.0-17.5) gm/dL Hct (39.0-53.0) % Plt Count (150-450) k/uL BUN (9-20) mg/dL Glucose (74-99) mg/dL POC Glucose (mg/dL) 162 H 67 L 63 L (75-99) mg/dL ALT (4-49) U/L 11/29/19 11/29/19 11/29/19 Range/Units 04:28 04:29 04:39 WBC (3.8-10.6) k/uL RBC (4.30-5.90) m/uL Hgb (13.0-17.5) gm/dL Hct (39.0-53.0) % Plt Count (150-450) k/uL BUN (9-20) mg/dL Glucose (74-99) mg/dL POC Glucose (mg/dL) 60 L 56 L 62 L (75-99) mg/dL ALT (4-49) U/L 11/29/19 11/29/19 11/29/19 Range/Units 04:44 04:44 04:49 WBC 15.8 H (3.8-10.6) k/uL RBC 3.30 L (4.30-5.90) m/uL Hgb 10.2 L (13.0-17.5) gm/dL Hct 32.4 L (39.0-53.0) % Plt Count 508 H (150-450) k/uL BUN 29 H (9-20) mg/dL Glucose 53 L (74-99) mg/dL POC Glucose (mg/dL) 216 H (75-99) mg/dL ALT 96 H (4-49) U/L 11/29/19 Range/Units 06:19 WBC (3.8-10.6) k/uL RBC (4.30-5.90) m/uL Hgb (13.0-17.5) gm/dL Hct (39.0-53.0) % Plt Count (150-450) k/uL BUN (9-20) mg/dL Glucose (74-99) mg/dL POC Glucose (mg/dL) 145 H (75-99) mg/dL ALT (4-49) U/L Assessment and Plan Assessment: Assessment #1 coronary artery disease and status post CABG #2 bradycardia status post permanent pacemaker #3 multiple comorbid condition #4 change in mental status Plan #1 continue the current medical regimen #2 follow-up with the patient
--- NOTE | 2019-11-29 08:01 | P.PN ---
Subjective Progress Note Date: 11/29/19 Principal diagnosis: Symptomatic multivessel coronary artery disease, unstable angina, status post subendocardial myocardial infarction. Previous medical history of CAD with previous stent placement to the proximal circumflex and ostial OM1, hypertension, hyperlipidemia, chronic ongoing tobacco dependence, mild COPD with preoperative FEV1 60% of predicted, right internal carotid artery stenosis 50- 69%, peripheral arterial disease with previous arthrectomy and REQUIREMENTS ENGINEER of the left SFA, atherectomy and REQUIREMENTS ENGINEER of the left DOULA, with stenting of the left BRIAN, poorly controlled type 2 diabetes with preoperative hemoglobin A1c 9.1%, bladder cancer status post chemo and radiation, occasional marijuana use, medication noncompliance, and family history of premature coronary artery disease POD #21 CABG 5 with GR to the LAD, left radial artery to the obtuse marginal, reverse saphenous vein to the posterior lateral, sequential saphenous vein to the first and second diagonal performed on cardiopulmonary bypass with beating heart. Endoscopic vein harvest of the left greater saphenous vein from the ankle to the groin. Endoscopic harvest of the left radial artery. Epi-aortic ultrasound and ligation of left atrial appendage with 40 mm AtriCure clip Postoperative acute blood loss anemia, expected outcome given cardiopulmonary bypass and hemodilution Postoperative encephalopathy, unexpected but potential outcome given cardiopulmonary bypass and intraoperative cardiac arrest Postoperative new onset paroxysmal Afib with RVR, unexpected Postoperative acute hypoxemic respiratory failure requiring reintubation, secondary to metabolic acidosis and hypotension. Postoperative stage II pressure ulcer on coccyx, unexpected Postoperative bradycardia, unexpected POD #4 Medtronic dual-chamber permanent pacemaker implantation, axillary venography The patient was seen and examined in the intensive care unit this morning. He is up in the recliner in no acute distress. He is alert and awake, he moves all extremities and follows commands but is still confused, remains calm although does still have sitter at the bedside for impulsivity and safety. He has left and right pleural chest tubes, Newman catheter present. Remains on oral vancomycin per infectious disease. He has been able to tolerate oral intake without difficulty. He was able to stand last night per nursing with assist x 2, gaining strength. Objective - Vital Signs Vital signs: Vital Signs Temp 97.8 F 11/29/19 04:00 Pulse 89 11/29/19 07:00 Resp 19 11/29/19 07:00 BP 101/63 11/29/19 07:00 Pulse Ox 99 11/29/19 07:00 Intake & Output 11/28/19 11/29/19 11/29/19 18:59 06:59 18:59 Intake Total 1000 726 Output Total 580 1340 40 Balance 420 -614 -40 Intake: IV 10 .9NS @ 10 ml/hr 10 Oral 500 716 Tube Feeding 500 Output: Chest Tube Drainage 70 left lateral chest tube 30 right lateral chest tube 40 Urine 510 1340 40 Other: Voiding Method Indwelling Catheter Indwelling Catheter ABP, PAP, CO, CI - Last Documented Arterial Blood Pressure 155/55 Pulmonary Artery Pressure 30/17 Cardiac Output 4.5 Cardiac Index 2.3 - Constitutional General appearance: Present: cooperative, no acute distress - Respiratory Details: Lungs sounds diminished bilaterally. Respirations even, nonlabored. Currently on room air with oxygen saturation 95%. Left pleural chest tube connected to water seal, 70 mL serous output in the last 24 hours. Right pleural chest tube to water seal, 100 mL serous drainage in the last 24 hours. No air leaks present. - Cardiovascular Details: S1, S2 present. Regular rate and rhythm, sinus rhythm on telemetry. Sternum stable. Palpable peripheral pulses bilaterally, no edema present. Heart hugger, antiembolism stockings, SCDs present. - Gastrointestinal Gastrointestinal Comment(s): Abdomen soft, nontender, nondistended. Active bowel sounds present 4 quadrants. Fecal management system in place with liquid brown stool. Tolerating diet - Genitourinary Genitourinary Comment(s): Newman present draining clear, yellow urine. Output 50-125 mL/h overnight, 1850 mL in the last 24 hours - Integumentary Integumentary Comment(s): Skin is warm and dry with evidence of good perfusion. Anterior chest incision well approximated and covered with dry intact dressing. Left lower extremity EVH site well approximated without drainage or redness. Left radial artery harvest site dry and intact without redness or drainage, good cap refill. Stage II pressure ulcer present to coccyx area, Optifoam dressing dry and intact. Left chest wall pacer site well approx, dressing dry and intact - Neurologic Neurologic: Present: CNII-XII intact - Musculoskeletal Musculoskeletal Comment(s): left arm in sling Musculoskeletal: Present: generalized weakness - Psychiatric Psychiatric Comment(s): Alert, oriented to person only, does follow commands selectively - Allied health notes Allied health notes reviewed: nursing - Labs CBC & Chem 7: 11/29/19 04:44 11/29/19 04:44 Labs: Abnormal Lab Results - Last 24 Hours (Table) 11/28/19 11/28/19 11/28/19 Range/Units 12:10 16:05 20:04 WBC (3.8-10.6) k/uL RBC (4.30-5.90) m/uL Hgb (13.0-17.5) gm/dL Hct (39.0-53.0) % Plt Count (150-450) k/uL BUN (9-20) mg/dL Glucose (74-99) mg/dL POC Glucose (mg/dL) 219 H 128 H 273 H (75-99) mg/dL ALT (4-49) U/L 11/28/19 11/29/19 11/29/19 Range/Units 23:52 04:11 04:20 WBC (3.8-10.6) k/uL RBC (4.30-5.90) m/uL Hgb (13.0-17.5) gm/dL Hct (39.0-53.0) % Plt Count (150-450) k/uL BUN (9-20) mg/dL Glucose (74-99) mg/dL POC Glucose (mg/dL) 162 H 67 L 63 L (75-99) mg/dL ALT (4-49) U/L 11/29/19 11/29/19 11/29/19 Range/Units 04:28 04:29 04:39 WBC (3.8-10.6) k/uL RBC (4.30-5.90) m/uL Hgb (13.0-17.5) gm/dL Hct (39.0-53.0) % Plt Count (150-450) k/uL BUN (9-20) mg/dL Glucose (74-99) mg/dL POC Glucose (mg/dL) 60 L 56 L 62 L (75-99) mg/dL ALT (4-49) U/L 11/29/19 11/29/19 11/29/19 Range/Units 04:44 04:44 04:49 WBC 15.8 H (3.8-10.6) k/uL RBC 3.30 L (4.30-5.90) m/uL Hgb 10.2 L (13.0-17.5) gm/dL Hct 32.4 L (39.0-53.0) % Plt Count 508 H (150-450) k/uL BUN 29 H (9-20) mg/dL Glucose 53 L (74-99) mg/dL POC Glucose (mg/dL) 216 H (75-99) mg/dL ALT 96 H (4-49) U/L 11/29/19 Range/Units 06:19 WBC (3.8-10.6) k/uL RBC (4.30-5.90) m/uL Hgb (13.0-17.5) gm/dL Hct (39.0-53.0) % Plt Count (150-450) k/uL BUN (9-20) mg/dL Glucose (74-99) mg/dL POC Glucose (mg/dL) 145 H (75-99) mg/dL ALT (4-49) U/L - Imaging and Cardiology Chest x-ray: image reviewed Assessment and Plan Assessment: 1. Symptomatic multivessel coronary artery disease, recent non-STEMI, status post 5 vessel CABG 2. Leukocytosis, maybe multifactoral. Blood, sputum, urine cultures negative to date although drawn after antibiotics started. 3. Previous stent placement to the proximal circumflex and ostial OM1 4. History of hypertension 5. History of hyperlipidemia 6. Chronic ongoing tobacco dependence 7. Mild COPD, preoperative FEV1 60% of predicted value 8. Right internal carotid artery stenosis 50-69%. 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 9. History of peripheral arterial disease with previous arthrectomy and REQUIREMENTS ENGINEER of the left SFA and atherectomy and REQUIREMENTS ENGINEER of the left DOULA with stenting of the left BRIAN 10. Poorly controlled diabetes mellitus type 2 with hyperglycemia, admission hemoglobin A1c 9.1% 11. History of bladder cancer status post radiation, chemotherapy treatment and bladder surgery 12. Occasional marijuana use 13. Medication noncompliance 14. Family history of early onset coronary artery disease 15. Postoperative acute blood loss anemia, expected 16. Postoperative encephalopathy, unexpected 17. Mild ISAAC, resolved 18. Afib with RVR, status post left atrial appendage ligation, currently Sinus Rhythm 19. Hematuria, resolved, likely from patient pulling at newman catheter 20. Postoperative acute hypoxic respiratory failure requiring reintubation, secondary to metabolic acidosis and hypotension 21. Elevated transaminase levels, shock liver, secondary to hypotension, trending down 22. New stage II pressure ulcer, coccyx 23. Postoperative bilateral pleural effusions, status post bilateral pleural chest tube placement 24. Postoperative bradycardia, status post Medtronic dual-chamber pacemaker Plan: 1. Continue aspirin, Plavix, statin, beta gaurav, Cozaar. Will increase beta gaurav therapy as tolerated. 2. Continue amiodorone for atrial fibrillation prophylaxis, decreased to 200 mg daily today. No anticoagulation necessary 3. Continue calcium channel gaurav for radial artery prophylaxis. Please do not discontinue without discussing was cardiac surgery 4. Keep Newman catheter in place for accurate I&O. Change Newman today and obtain culture from new Newman catheter 5. Silvadene cream to be applied to coccyx twice a day. Turn minimum every 2 hours. 6. Bronchodilators per pulmonology. Encourage incentive spirometry use 7. Continue to monitor right and left pleural chest tube output. Will discon tinue chest tubes once there is minimal output. 8. Will monitor daily labs and chest x-rays. Elective replacement per protocol. 9. Pain management per current medication regimen 10. GI/DVT prophylaxis. 11. Insulin management per primary care service. 12. Continue 40 mg Lasix q12 13. Reorient as necessary. Continue to assess mental status 14. Continue oral vancomycin per infectious disease, currently day #9 15. Patient will need rehab at discharge. Discussed with the possibility of LTAC, she is not interested as the drive is too far for her. Likely will discharge to [facility] after chest tube removal. 16. More recommendations to follow based on patient's clinical course. Time with Patient: Greater than 30
--- NOTE | 2019-11-29 08:04 | XR ---
EXAMINATION TYPE: XR chest 1V portable DATE OF EXAM: 11/29/2019 COMPARISON: HISTORY: Abnormal x-ray TECHNIQUE: Single frontal view of the chest is obtained. FINDINGS: Postoperative change with cardiac device bilateral chest tube seen. No sizable pneumothora x. Areas of subsegmental consolidation most typical of atelectasis. Heart size normal for failure. Ti ny granuloma medial aspect measuring 2 millimeters. IMPRESSION: 1. Postoperative changes with areas of subsegmental consolidation. Although pneumonia is not excluded atelectasis favored correlate clinically. 2. No overt failure.
[2019-11-29] MEDS: HEPARIN SODIUM,PORCINE 5,000 UNIT/ML 1 ML VIAL SQ SCH ×4 (08:45→22:54)
[2019-11-29] MEDS: FUROSEMIDE 10 MG/ML 4 ML VIAL IV SCH ×2 (08:46→20:19)
[2019-11-29] MEDS: ATORVASTATIN 40 MG TAB PO SCH (08:46)
[2019-11-29] MEDS: NYSTATIN 100,000 UNIT/ML SUSP 500,000 UNIT/5 ML CUP PO SCH ×4 (08:46→20:19)
[2019-11-29] MEDS: ASPIRIN 325 MG TAB PO SCH (08:46)
[2019-11-29] MEDS: LOSARTAN 25 MG TAB PO SCH (08:46)
[2019-11-29] MEDS: CLOPIDOGREL 75 MG TAB PO SCH (08:46)
[2019-11-29] MEDS: AMIODARONE 200 MG TAB PO SCH (08:46)
[2019-11-29] MEDS: METOPROLOL TARTRATE 50 MG TAB PO SCH ×2 (08:46→20:19)
[2019-11-29] MEDS: QUEtiapine 25 MG TAB PO PRN ×2 (08:47→22:55)
[2019-11-29 12:05] LABS: Glucose,Whole Blood 206 mg/dL (75-99)
[2019-11-29] MEDS: LACTOBACILLUS ACIDOPH & BULGAR 1 EACH PACKET PO SCH ×2 (12:47→17:12)
[2019-11-29] MEDS ORDERED: ANIDULAFUNGIN 200 MG in SODIUM CHLORIDE 0.9% 200 ML IVPB ONE (14:22)
--- NOTE | 2019-11-29 14:53 | P.PN ---
Subjective Progress Note Date: 11/29/19 On today's evaluation of a 32,020, the patient is awake. The patient is following some simple commands. His communication and speech has not been fully recovered. However he seems to be comprehensive. He is postop day #21 following five-vessel bypass surgery including GR to LAD and radial artery to OM and saphenous vein graft to posterior lateral and first and second diagonal branches. The patient is doing well. He is currently on room air oxygen. Vital chest tubes. Output from the chest was noted and there is no evidence of any air leak and the patient has chest x-ray that showed no evidence of any pneumothorax and the lungs are well expanded bilaterally. The patient is using the incentive spirometer. His cardiac rhythm is now. No agitation. Still has some degree of confusion yet without any significant agitation or any focal neurological deficits. Motor function is diminished in all 4 extremities and the patient has some global weakness which is also improving. He was able to sit up on a recliner. No significant cough or sputum production. Sternum stable clean and intact. Is postop day #4 following a dual-chamber pacemaker insertion. Objective - Vital Signs Vital signs: Vital Signs Temp 97.8 F 11/29/19 04:00 Pulse 82 11/29/19 11:29 Resp 19 11/29/19 07:00 BP 101/63 11/29/19 07:00 Pulse Ox 99 11/29/19 07:00 Intake & Output 11/28/19 11/29/19 11/29/19 18:59 06:59 18:59 Intake Total 1000 726 Output Total 580 1340 40 Balance 420 -614 -40 Weight 80.5 kg Intake: IV 10 .9NS @ 10 ml/hr 10 Oral 500 716 Tube Feeding 500 Output: Chest Tube Drainage 70 left lateral chest tube 30 right lateral chest tube 40 Urine 510 1340 40 Other: Voiding Method Indwelling Catheter Indwelling Catheter ABP, PAP, CO, CI - Last Documented Arterial Blood Pressure 155/55 Pulmonary Artery Pressure 30/17 Cardiac Output 4.5 Cardiac Index 2.3 - Exam - Constitutional General appearance: Present: cooperative, no acute distress - Respiratory Details: Lungs sounds diminished bilaterally. Respirations even, nonlabored. Currently on room air with oxygen saturation 95%. Left pleural chest tube connected to water seal, 70 mL serous output in the last 24 hours. Right pleural chest tube to water seal, 100 mL serous drainage in the last 24 hours. No air leaks present. - Cardiovascular Details: S1, S2 present. Regular rate and rhythm, sinus rhythm on telemetry. Sternum stable. Palpable peripheral pulses bilaterally, no edema present. Heart hugger, antiembolism stockings, SCDs present. - Gastrointestinal Gastrointestinal Comment(s): Abdomen soft, nontender, nondistended. Active bowel sounds present 4 quadrants. Fecal management system in place with liquid brown stool. Tolerating diet - Genitourinary Genitourinary Comment(s): Junior present draining clear, yellow urine. Output 50-125 mL/h overnight, 1850 mL in the last 24 hours - Integumentary Integumentary Comment(s): Skin is warm and dry with evidence of good perfusion. Anterior chest incision well approximated and covered with dry intact dressing. Left lower extremity EVH site well approximated without drainage or redness. Left radial artery harvest site dry and intact without redness or drainage, good cap refill. Stage II pressure ulcer present to coccyx area, Optifoam dressing dry and intact. Left chest wall pacer site well approx, dressing dry and intact - Neurologic Neurologic: Present: CNII-XII intact - Musculoskeletal Musculoskeletal Comment(s): left arm in sling Musculoskeletal: Present: generalized weakness - Psychiatric Psychiatric Comment(s): Alert, oriented to person only, does follow commands selectively - Allied health notes Allied health notes reviewed: nursing - Labs CBC & Chem 7: 11/29/19 04:44 11/29/19 04:44 Labs: Abnormal Lab Results - Last 24 Hours (Table) 11/28/19 11/28/19 11/28/19 Range/Units 16:05 20:04 23:52 WBC (3.8-10.6) k/uL RBC (4.30-5.90) m/uL Hgb (13.0-17.5) gm/dL Hct (39.0-53.0) % Plt Count (150-450) k/uL BUN (9-20) mg/dL Glucose (74-99) mg/dL POC Glucose (mg/dL) 128 H 273 H 162 H (75-99) mg/dL ALT (4-49) U/L 11/29/19 11/29/19 11/29/19 Range/Units 04:11 04:20 04:28 WBC (3.8-10.6) k/uL RBC (4.30-5.90) m/uL Hgb (13.0-17.5) gm/dL Hct (39.0-53.0) % Plt Count (150-450) k/uL BUN (9-20) mg/dL Glucose (74-99) mg/dL POC Glucose (mg/dL) 67 L 63 L 60 L (75-99) mg/dL ALT (4-49) U/L 11/29/19 11/29/19 11/29/19 Range/Units 04:29 04:39 04:44 WBC 15.8 H (3.8-10.6) k/uL RBC 3.30 L (4.30-5.90) m/uL Hgb 10.2 L (13.0-17.5) gm/dL Hct 32.4 L (39.0-53.0) % Plt Count 508 H (150-450) k/uL BUN (9-20) mg/dL Glucose (74-99) mg/dL POC Glucose (mg/dL) 56 L 62 L (75-99) mg/dL ALT (4-49) U/L 11/29/19 11/29/19 11/29/19 Range/Units 04:44 04:49 06:19 WBC (3.8-10.6) k/uL RBC (4.30-5.90) m/uL Hgb (13.0-17.5) gm/dL Hct (39.0-53.0) % Plt Count (150-450) k/uL BUN 29 H (9-20) mg/dL Glucose 53 L (74-99) mg/dL POC Glucose (mg/dL) 216 H 145 H (75-99) mg/dL ALT 96 H (4-49) U/L 11/29/19 Range/Units 12:03 WBC (3.8-10.6) k/uL RBC (4.30-5.90) m/uL Hgb (13.0-17.5) gm/dL Hct (39.0-53.0) % Plt Count (150-450) k/uL BUN (9-20) mg/dL Glucose (74-99) mg/dL POC Glucose (mg/dL) 206 H (75-99) mg/dL ALT (4-49) U/L Assessment and Plan Plan: 1 coronary artery disease without stable angina and non-STEMI. The patient underwent five-vessel bypass surgery. CABG 5 with GR to LAD, left radial artery to obtuse marginal, saphenous vein to posterior lateral, sequential saphenous vein to first and second diagonal performed on cardiopulmonary bypass with beating heart. Epi-aortic ultrasound and ligation of left atrial appendage with Ben clip. The patient is postop day #21 2 post thoracotomy with recurrent episodes of respiratory failure and the patient is currently extubated on room air oxygen and the patient has bilateral chest tubes in place and output has been noted and a chest x-ray has been noted and there is no evidence of any pneumothorax or any residual effusion on today's chest x-ray. 3 altered mental status, with episodic confusion. The patient also has some speech deficits. No focal neurological deficit. He has global weakness and neurology has been on the case. 4 COPD with an FEV1 of 60% of predicted at baseline 5 symptomatic bradycardia post dual-chamber pacemaker insertion and the patient is postop day #4. The patient also did develop some postoperative atrial fibrillation and is post left atrial appendage ligation 6 Peripheral vascular disease with prior peripheral stent placements 7 Right carotid artery stenosis at 50-69% 7 History of marijuana use 8 Diabetes mellitus, type II, insulin drip for blood sugar control 9 History of bladder cancer status post radiation/chemotherapy and subsequent surgery 10 History of noncompliance 11 acute kidney injury , recovered 12 history of marijuana smoking 13 history of drug noncompliance 14 stage II pressure ulcer involving the coccyx 15 generalized weakness 16 diarrhea, consider C. diff colitis Plan Keep both chest tubes inserted for another 24 hours Monitor chest x-ray findings Encourage use of incentive spirometer Cardiac medications including aspirin and Plavix and metoprolol and Cozaar Increased level of activity as tolerated Assessment and management for blood sugar control Complete a course of oral vancomycin Continue Lasix Keep the patient ICU and will continue to follow. He is on significant amount of progress for now.
--- NOTE | 2019-11-29 16:10 | PN ---
PROGRESS NOTE DATE OF SERVICE: 11/29/2019 REASON FOR FOLLOWUP: Leukocytosis. INTERVAL HISTORY: The patient is currently afebrile. The patient is breathing comfortably, currently on nasal cannula oxygen. No chest pain or cough. No abdominal pain. Diarrhea has slowed down per the nursing staff. PHYSICAL EXAMINATION: Blood pressure 101/63 with a pulse of 89, temperature 98. He is 99% on room air. General description is an elderly male up in the chair in no distress. RESPIRATORY SYSTEM: Unlabored breathing with decreased breath sounds at the base. No wheeze. HEART: S1, S2. Regular rate and rhythm. ABDOMEN: Soft. No tenderness. LABS: Hemoglobin 10.2, white count 15.8, BUN of 29, creatinine 1.07. DIAGNOSTIC IMPRESSION AND PLAN: Patient with leukocytosis, multifactorial; possible catheter-associate urinary tract infection. Will change his Junior catheter. Obtain urine culture from new Junior. Empirically add Eraxis, as Diflucan could not be added because of the amiodarone. Continue vancomycin. Repeat CBC tomorrow. MMODL / IJN: [id number] /
[2019-11-29 16:38] LABS: Glucose,Whole Blood 158 mg/dL (75-99)
[2019-11-29 18:18] LABS: Appearance,Urine Cloudy (Clear); Bacteria,Urine Rare /hpf; Bilirubin,Urine Negative (Negative); Blood,Urine Moderate (Negative); Color,Urine Yellow; Glucose,Urine (UA) Negative (Negative); Ketones,Urine Negative (Negative); Leukocyte Esterase,Urine Negative (Negative); Mucus,Urine Rare /hpf; Nitrite,Urine Negative (Negative); Protein,Urine Trace (Negative); RBC,Urine 148 /hpf (0-5); Specific Gravity,Urine 1.019 (1.001-1.035); Urobilinogen,Urine <2.0 mg/dL (<2.0); WBC,Urine 8 /hpf (0-5)
[2019-11-29 20:00] LABS: Glucose,Whole Blood 194 mg/dL (75-99)
[2019-11-30 00:14] LABS: Glucose,Whole Blood 191 mg/dL (75-99)
[2019-11-30] MEDS: INSULIN ASPART (NovoLOG) 100 UNIT/ML VIAL SQ SCH ×12 (00:16→20:07)
[2019-11-30 04:17] LABS: Glucose,Whole Blood 89 mg/dL (75-99)
[2019-11-30 04:57] LABS: HCT 32.6 % (39.0-53.0); HGB 10.6 gm/dL (13.0-17.5); Hypochromasia Moderate; MCH 32.2 pg (25.0-35.0); MCHC 32.6 g/dL (31.0-37.0); MCV 98.7 fL (80.0-100.0); Macrocytosis Slight; Mean Platelet Volume 7.6; Platelet Count 373 k/uL (150-450); RDW 15.2 % (11.5-15.5); WBC 14.5 k/uL (3.8-10.6)
[2019-11-30 05:16] LABS: African American GFR (CKD) >90 (>60 ml/min/1.73 sqM); Anion Gap 7 mmol/L; Blood Urea Nitrogen 30 mg/dL (9-20); Calcium 9.2 mg/dL (8.4-10.2); Carbon Dioxide 25 mmol/L (22-30); Chloride 106 mmol/L (98-107); Glucose 92 mg/dL (74-99); Non-African American GFR(CKD) 78 (>60 ml/min/1.73 sqM); Potassium 4.1 mmol/L (3.5-5.1); Sodium 138 mmol/L (137-145)
[2019-11-30] MEDS: CHOLESTYRAMINE (WITH SUGAR) 4 GM PACKET PO SCH ×4 (06:38→20:07)
[2019-11-30] MEDS: ASCORBIC ACID 500 MG TAB PO SCH ×2 (06:38→16:57)
[2019-11-30] MEDS: LACTOBACILLUS ACIDOPH & BULGAR 1 EACH PACKET PO SCH ×3 (06:38→16:57)
[2019-11-30] MEDS: PANTOPRAZOLE 40 MG TABLET PO SCH (06:38)
[2019-11-30] MEDS: INSULIN DETEMIR (LEVEMIR) 100 UNIT/ML SYR SQ SCH (06:39)
[2019-11-30] MEDS: VANCOMYCIN ORAL SOLUTION 250 MG/5 ML BOTTLE PO SCH ×3 (06:39→17:04)
[2019-11-30] MEDS: FERROUS SULFATE ORAL ELIXIR 300 MG/5 ML CUP PO SCH (06:39)
[2019-11-30] MEDS: DILTIAZEM ORAL 30 MG TAB PO SCH (06:39)
[2019-11-30 07:36] LABS: Glucose,Whole Blood 167 mg/dL (75-99)
--- NOTE | 2019-11-30 07:39 | P.PN ---
Subjective Progress Note Date: 11/30/19 Principal diagnosis: Coronary artery disease and status post CABG This is a 64-year-old gentleman with coronary artery disease and prior coronary artery stenting as well as hypertension and dyslipidemia and history of smoking and COPD who underwent CABG and this is postoperative patient the #20. The patient was seen this morning. Today's 11/30/2019. He continues to have a change in mental status. Otherwise hemodynamically he is stable. He has been maintaining normal sinus mechanism. The blood pressure has been on the low side. He is on maximize medical treatment including dual antiplatelet therapy as well as statin. Objective - Vital Signs Vital signs: Vital Signs Temp 98.3 F 11/30/19 04:00 Pulse 87 11/30/19 07:00 Resp 23 11/30/19 07:00 BP 104/64 11/30/19 07:00 Pulse Ox 96 11/30/19 07:00 Intake & Output 11/29/19 11/30/19 11/30/19 18:59 06:59 18:59 Intake Total 1700 Output Total 855 1355 40 Balance 845 -1355 -40 Weight 80.5 kg 76.5 kg Intake: Intake, IV Titration 200 Amount Anidulafungin 100 mg In 200 Sodium Chloride 0.9% 100 ml @ 84 mls/hr IVPB DAILY PENDING SALE TO [facility] Rx#:[id number] Oral 1500 Output: Urine 855 1355 40 Other: Voiding Method Indwelling Catheter Indwelling Catheter ABP, PAP, CO, CI - Last Documented Arterial Blood Pressure 155/55 Pulmonary Artery Pressure 30/17 Cardiac Output 4.5 Cardiac Index 2.3 - Constitutional General appearance: Present: no acute distress - Respiratory Respiratory: bilateral: diminished - Cardiovascular Rhythm: regular Heart sounds: normal: S1, S2 - Labs CBC & Chem 7: 11/30/19 04:40 11/30/19 04:40 Labs: Abnormal Lab Results - Last 24 Hours (Table) 11/29/19 11/29/19 11/29/19 Range/Units 12:03 16:37 16:44 WBC (3.8-10.6) k/uL RBC (4.30-5.90) m/uL Hgb (13.0-17.5) gm/dL Hct (39.0-53.0) % BUN (9-20) mg/dL POC Glucose (mg/dL) 206 H 158 H (75-99) mg/dL Urine Protein Trace H (Negative) Urine Blood Moderate H (Negative) Urine RBC 148 H (0-5) /hpf Urine WBC 8 H (0-5) /hpf Urine Bacteria Rare H (None) /hpf Urine Mucus Rare H (None) /hpf 11/29/19 11/30/19 11/30/19 Range/Units 19:59 00:12 04:40 WBC 14.5 H (3.8-10.6) k/uL RBC 3.30 L (4.30-5.90) m/uL Hgb 10.6 L (13.0-17.5) gm/dL Hct 32.6 L (39.0-53.0) % BUN (9-20) mg/dL POC Glucose (mg/dL) 194 H 191 H (75-99) mg/dL Urine Protein (Negative) Urine Blood (Negative) Urine RBC (0-5) /hpf Urine WBC (0-5) /hpf Urine Bacteria (None) /hpf Urine Mucus (None) /hpf 11/30/19 11/30/19 Range/Units 04:40 07:35 WBC (3.8-10.6) k/uL RBC (4.30-5.90) m/uL Hgb (13.0-17.5) gm/dL Hct (39.0-53.0) % BUN 30 H (9-20) mg/dL POC Glucose (mg/dL) 167 H (75-99) mg/dL Urine Protein (Negative) Urine Blood (Negative) Urine RBC (0-5) /hpf Urine WBC (0-5) /hpf Urine Bacteria (None) /hpf Urine Mucus (None) /hpf Assessment and Plan Assessment: Assessment #1 coronary artery disease and status post CABG #2 bradycardia status post permanent pacemaker #3 multiple comorbid condition #4 change in mental status Plan #1 continue the current medical regimen #2 follow-up with the patient
--- NOTE | 2019-11-30 08:01 | P.PN ---
Subjective Progress Note Date: 11/30/19 Principal diagnosis: Symptomatic multivessel coronary artery disease, unstable angina, status post subendocardial myocardial infarction. Previous medical history of CAD with previous stent placement to the proximal circumflex and ostial OM1, hypertension, hyperlipidemia, chronic ongoing tobacco dependence, mild COPD with preoperative FEV1 60% of predicted, right internal carotid artery stenosis 50- 69%, peripheral arterial disease with previous arthrectomy and CONGRESSIONAL REPRESENTATIVE of the left SFA, atherectomy and CONGRESSIONAL REPRESENTATIVE of the left THERMOCOUPLE TESTER, with stenting of the left BRIAN, poorly controlled type 2 diabetes with preoperative hemoglobin A1c 9.1%, bladder cancer status post chemo and radiation, occasional marijuana use, medication noncompliance, and family history of premature coronary artery disease POD #22 CABG 5 with GR to the LAD, left radial artery to the obtuse marginal, reverse saphenous vein to the posterior lateral, sequential saphenous vein to the first and second diagonal performed on cardiopulmonary bypass with beating heart. Endoscopic vein harvest of the left greater saphenous vein from the ankle to the groin. Endoscopic harvest of the left radial artery. Epi-aortic ultrasound and ligation of left atrial appendage with 40 mm AtriCure clip Postoperative acute blood loss anemia, expected outcome given cardiopulmonary bypass and hemodilution Postoperative encephalopathy, unexpected but potential outcome given cardiopulmonary bypass and intraoperative cardiac arrest Postoperative new onset paroxysmal Afib with RVR, unexpected Postoperative acute hypoxemic respiratory failure requiring reintubation, secondary to metabolic acidosis and hypotension. Postoperative stage II pressure ulcer on coccyx, unexpected Postoperative bradycardia, unexpected POD #5 Medtronic dual-chamber permanent pacemaker implantation, axillary venography The patient was seen and examined in the intensive care unit this morning. He is up in the recliner in no acute distress. He is alert and awake, he moves all extremities and follows commands but is still confused, remains calm. He has right pleural chest tube, Newman catheter, FMS present. Remains on oral vancomycin per infectious disease. He has been able to tolerate oral intake without difficulty. He was able to stand again last night per nursing with assist x 2, gaining strength. Was able to sleep last night. Newman catheter changed yesterday per ID with new UA and culture sent, UA with no leukocyte esterase, negative nitrites, await culture, remains afebrile, started on Eraxis per ID. Objective - Vital Signs Vital signs: Vital Signs Temp 98.3 F 11/30/19 04:00 Pulse 87 11/30/19 07:00 Resp 23 11/30/19 07:00 BP 104/64 11/30/19 07:00 Pulse Ox 96 11/30/19 07:00 Intake & Output 11/29/19 11/30/19 11/30/19 18:59 06:59 18:59 Intake Total 1700 Output Total 855 1355 40 Balance 845 -1355 -40 Weight 80.5 kg 76.5 kg Intake: Intake, IV Titration 200 Amount Anidulafungin 100 mg In 200 Sodium Chloride 0.9% 100 ml @ 84 mls/hr IVPB DAILY [facility] Rx#:[id number] Oral 1500 Output: Urine 855 1355 40 Other: Voiding Method Indwelling Catheter Indwelling Catheter ABP, PAP, CO, CI - Last Documented Arterial Blood Pressure 155/55 Pulmonary Artery Pressure 30/17 Cardiac Output 4.5 Cardiac Index 2.3 - Constitutional General appearance: Present: cooperative, no acute distress - Respiratory Details: Lungs sounds diminished bilaterally. Respirations even, nonlabored. Currently on room air with oxygen saturation 96%. Right pleural chest tube to water seal, 100 mL serous drainage in the last 24 hours. No air leaks present. - Cardiovascular Details: S1, S2 present. Regular rate and rhythm, sinus rhythm on telemetry. Sternum stable. Palpable peripheral pulses bilaterally, no edema present. Heart hugger, antiembolism stockings, SCDs present. - Gastrointestinal Gastrointestinal Comment(s): Abdomen soft, nontender, nondistended. Active bowel sounds present 4 quadrants. Fecal management system in place with liquid brown stool. Tolerating diet - Genitourinary Genitourinary Comment(s): Newman present draining clear, yellow urine. Output 30-300 mL/h overnight, 2170 mL in the last 24 hours - Integumentary Integumentary Comment(s): Skin is warm and dry with evidence of good perfusion. Anterior chest incision well approximated and covered with dry intact dressing. Left lower extremity EVH site well approximated without drainage or redness. Left radial artery harvest site dry and intact without redness or drainage, good cap refill. Stage II pressure ulcer present to coccyx area. Left chest wall pacer site well approx, dressing dry and intact - Neurologic Neurologic: Present: CNII-XII intact - Musculoskeletal Musculoskeletal Comment(s): left arm in sling Musculoskeletal: Present: generalized weakness, strength equal bilaterally - Psychiatric Psychiatric Comment(s): Alert, oriented to person only, does follow commands selectively - Allied health notes Allied health notes reviewed: nursing - Labs CBC & Chem 7: 11/30/19 04:40 11/30/19 04:40 Labs: Abnormal Lab Results - Last 24 Hours (Table) 11/29/19 11/29/19 11/29/19 Range/Units 12:03 16:37 16:44 WBC (3.8-10.6) k/uL RBC (4.30-5.90) m/uL Hgb (13.0-17.5) gm/dL Hct (39.0-53.0) % BUN (9-20) mg/dL POC Glucose (mg/dL) 206 H 158 H (75-99) mg/dL Urine Protein Trace H (Negative) Urine Blood Moderate H (Negative) Urine RBC 148 H (0-5) /hpf Urine WBC 8 H (0-5) /hpf Urine Bacteria Rare H (None) /hpf Urine Mucus Rare H (None) /hpf 11/29/19 11/30/19 11/30/19 Range/Units 19:59 00:12 04:40 WBC 14.5 H (3.8-10.6) k/uL RBC 3.30 L (4.30-5.90) m/uL Hgb 10.6 L (13.0-17.5) gm/dL Hct 32.6 L (39.0-53.0) % BUN (9-20) mg/dL POC Glucose (mg/dL) 194 H 191 H (75-99) mg/dL Urine Protein (Negative) Urine Blood (Negative) Urine RBC (0-5) /hpf Urine WBC (0-5) /hpf Urine Bacteria (None) /hpf Urine Mucus (None) /hpf 11/30/19 11/30/19 Range/Units 04:40 07:35 WBC (3.8-10.6) k/uL RBC (4.30-5.90) m/uL Hgb (13.0-17.5) gm/dL Hct (39.0-53.0) % BUN 30 H (9-20) mg/dL POC Glucose (mg/dL) 167 H (75-99) mg/dL Urine Protein (Negative) Urine Blood (Negative) Urine RBC (0-5) /hpf Urine WBC (0-5) /hpf Urine Bacteria (None) /hpf Urine Mucus (None) /hpf - Imaging and Cardiology Chest x-ray: image reviewed Assessment and Plan Assessment: 1. Symptomatic multivessel coronary artery disease, recent non-STEMI, status post 5 vessel CABG 2. Leukocytosis, maybe multifactoral. Blood, sputum, urine cultures negative to date although drawn after antibiotics started. 3. Previous stent placement to the proximal circumflex and ostial OM1 4. History of hypertension 5. History of hyperlipidemia 6. Chronic ongoing tobacco dependence 7. Mild COPD, preoperative FEV1 60% of predicted value 8. Right internal carotid artery stenosis 50-69%. 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 9. History of peripheral arterial disease with previous arthrectomy and CONGRESSIONAL REPRESENTATIVE of the left SFA and atherectomy and CONGRESSIONAL REPRESENTATIVE of the left THERMOCOUPLE TESTER with stenting of the left BRIAN 10. Poorly controlled diabetes mellitus type 2 with hyperglycemia, admission hemoglobin A1c 9.1% 11. History of bladder cancer status post radiation, chemotherapy treatment and bladder surgery 12. Occasional marijuana use 13. Medication noncompliance 14. Family history of early onset coronary artery disease 15. Postoperative acute blood loss anemia, expected 16. Postoperative encephalopathy, unexpected, no definitive stroke (symptomatology attributed to encephalopathy, hypotention, intraoperative events; left atrial appendage was clipped and TTE demonstrated no embolic source; no focal deficits; patient's ability to move/participate has been selective; no change from first CT to second, no definite acute timing of ch anges in brain images, may be pre-operative; neurology unable to definitively say patient had acute stroke) 17. Mild ISAAC, resolved 18. Afib with RVR, status post left atrial appendage ligation, currently Sinus Rhythm 19. Hematuria, resolved, likely from patient pulling at newman catheter 20. Postoperative acute hypoxic respiratory failure requiring reintubation, secondary to metabolic acidosis and hypotension 21. Elevated transaminase levels, shock liver, secondary to hypotension, trending down 22. New stage II pressure ulcer, coccyx 23. Postoperative bilateral pleural effusions, status post bilateral pleural chest tube placement 24. Postoperative bradycardia, status post Medtronic dual-chamber pacemaker Plan: 1. Continue aspirin, Plavix, statin, beta gaurav, Cozaar. Will increase beta gaurav therapy as tolerated. 2. Continue amiodorone for atrial fibrillation prophylaxis. No anticoagulation necessary 3. Continue calcium channel gaurav for radial artery prophylaxis, will transition to long acting. Please do not discontinue without discussing was cardiac surgery 4. Keep Newman catheter in place for accurate I&O. 5. Silvadene cream to be applied to coccyx twice a day. Turn minimum every 2 hours. 6. Bronchodilators per pulmonology. Encourage incentive spirometry use 7. Will discontinue right pleural chest tube today 8. Will monitor daily labs and chest x-rays. Elective replacement per protocol. 9. Pain management per current medication regimen 10. GI/DVT prophylaxis. 11. Insulin management per primary care service. 12. Change lasix to 40 mg by mouth daily 13. Reorient as necessary. Continue to assess mental status 14. Continue oral vancomycin per infectious disease, currently day #10. Await urine culture, no leuk esterase or nitrites on UA, started on Eraxis per ID 15. Patient will need rehab at discharge. Likely will discharge to [facility] after chest tube removal, possibly DC tomorrow 16. More recommendations to follow based on patient's clinical course. Time with Patient: Greater than 30
[2019-11-30] MEDS: FUROSEMIDE 10 MG/ML 4 ML VIAL IV SCH (08:29)
[2019-11-30] MEDS: HEPARIN SODIUM,PORCINE 5,000 UNIT/ML 1 ML VIAL SQ SCH ×2 (08:29→16:57)
[2019-11-30] MEDS: ATORVASTATIN 40 MG TAB PO SCH (08:30)
[2019-11-30] MEDS: CLOPIDOGREL 75 MG TAB PO SCH (08:30)
[2019-11-30] MEDS: NYSTATIN 100,000 UNIT/ML SUSP 500,000 UNIT/5 ML CUP PO SCH ×4 (08:30→20:08)
[2019-11-30] MEDS: METOPROLOL TARTRATE 50 MG TAB PO SCH ×2 (08:30→20:07)
[2019-11-30] MEDS: ASPIRIN 325 MG TAB PO SCH (08:30)
[2019-11-30] MEDS: AMIODARONE 200 MG TAB PO SCH (08:30)
[2019-11-30] MEDS: LOSARTAN 25 MG TAB PO SCH (08:30)
--- NOTE | 2019-11-30 08:31 | P.PN ---
Subjective - Patient is a 64-year-old male was recently discharged from the hospital came back in with the chest pain pressure-like sensation lasted for a few hours . Patient found to have Coronary artery disease and non-ST elevation myocardial infarction status post CABG 5 vessel on 11/07. He is also with A. fib and RVR and bradycardia, Also status post pacemaker placement. on follow-up currently remains in the ICU . He is awake, he looks somewhat confused and he does not answer my question common family at bedside says that the way he is. However no weakness is noted in the extremities. Patient looks comfortable and not in distress or pain. Mostly his decreased mentation is a due to multiple subacute stroke and he L-MCA territory He is hemodynamically stable and afebrile. WBC is slightly elevated at 15.8 K,Hemoglobin is 10.2k and platelets normal at 508. Creatinine 1.0 and other electrolytes are normal, sugars controlled currently however it was low this morning at 56. his 20 units of Levemir is lowered to 15 units and switched from at bedtime to daily Remains on IV Lasix 40 mg twice daily (for bilateral pleural effusion fluid o verload ) and oral vancomycin His been evaluated by and followed closely by several consultants including CTS, cardiology team, pulmonary/critical care, infectious disease and neurology services Objective - Vital Signs Vital signs: Vital Signs Temp 97.8 F 11/29/19 04:00 Pulse 82 11/29/19 11:29 Resp 19 11/29/19 07:00 BP 101/63 11/29/19 07:00 Pulse Ox 99 11/29/19 07:00 Intake & Output 11/28/19 11/29/19 11/29/19 18:59 06:59 18:59 Intake Total 1000 726 Output Total 580 1340 40 Balance 420 -614 -40 Intake: IV 10 .9NS @ 10 ml/hr 10 Oral 500 716 Tube Feeding 500 Output: Chest Tube Drainage 70 left lateral chest tube 30 right lateral chest tube 40 Urine 510 1340 40 Other: Voiding Method Indwelling Catheter Indwelling Catheter ABP, PAP, CO, CI - Last Documented Arterial Blood Pressure 155/55 Pulmonary Artery Pressure 30/17 Cardiac Output 4.5 Cardiac Index 2.3 - Exam -GENERAL: The patient is alert and slightly confused, not in any acute distress. Thin built HEENT: Pupils are round and equally reacting to light. EOMI. No scleral icterus. No conjunctival pallor. Normocephalic, atraumatic. No pharyngeal erythema. No thyromegaly. CARDIOVASCULAR: S1 and S2 present. No murmurs, rubs, or gallops. PULMONARY: Chest is clear to auscultation, no wheezing or crackles. ABDOMEN: Soft, nontender, nondistended, normoactive bowel sounds. No palpable organomegaly. MUSCULOSKELETAL: No joint swelling or deformity. EXTREMITIES: No cyanosis, clubbing, or pedal edema. NEUROLOGICAL: Gross neurological examination did not reveal any focal deficits. SKIN: No rashes. no petechiae. - Labs CBC & Chem 7: 11/30/19 04:40 11/30/19 04:40 Labs: Abnormal Lab Results - Last 24 Hours (Table) 11/28/19 11/28/19 11/28/19 Range/Units 16:05 20:04 23:52 WBC (3.8-10.6) k/uL RBC (4.30-5.90) m/uL Hgb (13.0-17.5) gm/dL Hct (39.0-53.0) % Plt Count (150-450) k/uL BUN (9-20) mg/dL Glucose (74-99) mg/dL POC Glucose (mg/dL) 128 H 273 H 162 H (75-99) mg/dL ALT (4-49) U/L 11/29/19 11/29/19 11/29/19 Range/Units 04:11 04:20 04:28 WBC (3.8-10.6) k/uL RBC (4.30-5.90) m/uL Hgb (13.0-17.5) gm/dL Hct (39.0-53.0) % Plt Count (150-450) k/uL BUN (9-20) mg/dL Glucose (74-99) mg/dL POC Glucose (mg/dL) 67 L 63 L 60 L (75-99) mg/dL ALT (4-49) U/L 11/29/19 11/29/19 11/29/19 Range/Units 04:29 04:39 04:44 WBC 15.8 H (3.8-10.6) k/uL RBC 3.30 L (4.30-5.90) m/uL Hgb 10.2 L (13.0-17.5) gm/dL Hct 32.4 L (39.0-53.0) % Plt Count 508 H (150-450) k/uL BUN (9-20) mg/dL Glucose (74-99) mg/dL POC Glucose (mg/dL) 56 L 62 L (75-99) mg/dL ALT (4-49) U/L 11/29/19 11/29/19 11/29/19 Range/Units 04:44 04:49 06:19 WBC (3.8-10.6) k/uL RBC (4.30-5.90) m/uL Hgb (13.0-17.5) gm/dL Hct (39.0-53.0) % Plt Count (150-450) k/uL BUN 29 H (9-20) mg/dL Glucose 53 L (74-99) mg/dL POC Glucose (mg/dL) 216 H 145 H (75-99) mg/dL ALT 96 H (4-49) U/L 11/29/19 Range/Units 12:03 WBC (3.8-10.6) k/uL RBC (4.30-5.90) m/uL Hgb (13.0-17.5) gm/dL Hct (39.0-53.0) % Plt Count (150-450) k/uL BUN (9-20) mg/dL Glucose (74-99) mg/dL POC Glucose (mg/dL) 206 H (75-99) mg/dL ALT (4-49) U/L Assessment and Plan Assessment: -Coronary artery disease and non-ST elevation myocardial infarction status post CABG 5 vessel -status post permanent pacemaker placement due to Persistant Bradycardia. -bilateral pleural effusions status post bilateral chest tube placement of the left and right -Altered mental status most likely secondary to metabolic encephalopathy. Probable subacute stroke involving multiple patchy areas in the left MCA vascular territory. neurology evaluated pt -New onset atrial fibrillation and RVR; remains rate controlled on amiodarone. -Type 2 diabetes; continue with Levemir 20 units subcu daily at bedtime; monitor Accu-Cheks every before meals and at bedtime with insulin sliding scale. -Peripheral vessel occlusive disease with prior peripheral stent placement. -Moderate severe COPD FEV1 of 60%; not in exacerbation; continue with bronchodilator nebulizer treatment and home inhaler therapy. -Acute kidney injury and acute shock liver secondary to hypotension, improved -CODE STATUS; full code Plan: This is a pleasant 64 years old male, who presents with CAD, status post CABG also he has fluid overload and multiple subacute strokes and A. fib RVR with bradycardia status post pacemaker. He currently remains in the ICU, he remains on IV Lasix and oral vancomycin, gentamicin Levemir 15 units daily and monitor her sugar. Follow-up recommendation by several consultants including car diothoracic surgery who are the primary team, also cardiology,neurology, pulmonary and critical care, infectious disease and neurology Labs and medication were reviewed.. Continue same treatment. Continue with symptomatic treatment. Resume home medication. Monitor lytes and vitals. DVT and GI prophylaxis. Further recommendations of the clinical course of the patient DVT prophylaxis: Subcutaneous heparin GI Prophylaxis: Ppi Prognosis is guarded
[2019-11-30] MEDS ORDERED: ANIDULAFUNGIN 100 MG in SODIUM CHLORIDE 0.9% 100 ML IVPB SCH (09:00)
[2019-11-30] MEDS: IPRATROPIUM-ALBUTEROL 3 ML NEB INHALATION SCH ×4 (09:02→20:00)
--- NOTE | 2019-11-30 09:26 | XR ---
EXAMINATION TYPE: XR chest 1V portable DATE OF EXAM: 11/30/2019 CLINICAL HISTORY: Effusion. Post cardiac surgery. TECHNIQUE: Semiupright portable view of the chest obtained COMPARISON: 11/29/2019 chest radiograph FINDINGS: Sternotomy wires, left-sided dual-chamber pacemaker, left atrial appendage clip, and right -sided chest tube are redemonstrated. There is been interval removal of left-sided chest tube. Tiny l eft apical pneumothorax, not unexpected status post left chest tube removal. Likely mild scattered at electasis of the right lung. No sizable pleural effusion. The cardiomediastinal silhouette is within normal limits for size. Pulmonary vasculature is normal. IMPRESSION: 1. Tiny left apical pneumothorax status post left chest tube removal. 2. Right atelectasis. No focal consolidation. A Yellow level critical message alert has been initiated for Asha Solares via the [employer] [facility] on 11/30/2019 9:24 AM. This message alert has been sent to Asha Solares via the pre ferences provided by the clinician for the receipt of Radiology Critical Findings. Message ID [id number] .
[2019-11-30 11:59] LABS: Glucose,Whole Blood 127 mg/dL (75-99)
[2019-11-30] MEDS: DILTIAZEM CD 120 MG CAP.ER.24H PO SCH (12:23)
--- NOTE | 2019-11-30 13:44 | P.PN ---
Subjective Progress Note Date: 11/30/19 11/30/2019, the patient is resting comfortably in bed. Postop day #22 following coronary artery bypass surgery with 5 vessel bypass. No significant output from the left-sided chest tube and left sided chest tube was removed yesterday and the right-sided chest tube will be removed today. The chest x-ray from today is showing adequate expansion of both lungs. The right-sided chest tube is still in place. There could be a tiny left apical pneumothorax. Meanwhile the patient on room air oxygen and pulse is around 94%. There was some mild leukocytosis. The patient is being treated with oral vancomycin regarding the possibility of C. diff colitis although this has not been confirmed. The jacque ent was also started on Eraxis regarding the possibility of a fungal UTI and the Junior cath has been removed and the cultures still pending for now. He is afebrile. Neurologically the same. He talks occasionally. He follows some simple commands. Neurologic exam is nonfocal. His cardiac rhythm is sinus for now. He has a dual-chamber pacemaker in place and the patient is postop day #5 following pacemaker insertion. Objective - Vital Signs Vital signs: Vital Signs Temp 98.3 F 11/30/19 04:00 Pulse 75 11/30/19 13:35 Resp 23 11/30/19 07:00 BP 104/64 11/30/19 07:00 Pulse Ox 96 11/30/19 07:00 Intake & Output 11/29/19 11/30/19 11/30/19 18:59 06:59 18:59 Intake Total 1700 Output Total 855 1355 40 Balance 845 -1355 -40 Weight 80.5 kg 76.5 kg Intake: Intake, IV Titration 200 Amount Anidulafungin 100 mg In 200 Sodium Chloride 0.9% 100 ml @ 84 mls/hr IVPB DAILY [facility] Rx#:[id number] Oral 1500 Output: Urine 855 1355 40 Other: Voiding Method Indwelling Catheter Indwelling Catheter ABP, PAP, CO, CI - Last Documented Arterial Blood Pressure 155/55 Pulmonary Artery Pressure 30/17 Cardiac Output 4.5 Cardiac Index 2.3 - Exam - Constitutional General appearance: Present: cooperative, no acute distress - Respiratory Details: Lungs sounds diminished bilaterally. Respirations even, nonlabored. Currently on room air with oxygen saturation 96%. Right pleural chest tube to water seal, 100 mL serous drainage in the last 24 hours. No air leaks present. - Cardiovascular Details: S1, S2 present. Regular rate and rhythm, sinus rhythm on telemetry. Sternum stable. Palpable peripheral pulses bilaterally, no edema present. Heart hu gger, antiembolism stockings, SCDs present. - Gastrointestinal Gastrointestinal Comment(s): Abdomen soft, nontender, nondistended. Active bowel sounds present 4 quadrants. Fecal management system in place with liquid brown stool. Tolerating diet - Genitourinary Genitourinary Comment(s): Junior present draining clear, yellow urine. Output 30-300 mL/h overnight, 2170 mL in the last 24 hours - Integumentary Integumentary Comment(s): Skin is warm and dry with evidence of good perfusion. Anterior chest incision well approximated and covered with dry intact dressing. Left lower extremity EVH site well approximated without drainage or redness. Left radial artery harv est site dry and intact without redness or drainage, good cap refill. Stage II pressure ulcer present to coccyx area. Left chest wall pacer site well approx, dressing dry and intact - Neurologic Neurologic: Present: CNII-XII intact - Musculoskeletal Musculoskeletal Comment(s): left arm in sling Musculoskeletal: Present: generalized weakness, strength equal bilaterally - Psychiatric Psychiatric Comment(s): Alert, oriented to person only, does follow commands selectively - Labs CBC & Chem 7: 11/30/19 04:40 11/30/19 04:40 Labs: Abnormal Lab Results - Last 24 Hours (Table) 11/29/19 11/29/19 11/29/19 Range/Units 16:37 16:44 19:59 WBC (3.8-10.6) k/uL RBC (4.30-5.90) m/uL Hgb (13.0-17.5) gm/dL Hct (39.0-53.0) % BUN (9-20) mg/dL POC Glucose (mg/dL) 158 H 194 H (75-99) mg/dL Urine Protein Trace H (Negative) Urine Blood Moderate H (Negative) Urine RBC 148 H (0-5) /hpf Urine WBC 8 H (0-5) /hpf Urine Bacteria Rare H (None) /hpf Urine Mucus Rare H (None) /hpf 11/30/19 11/30/19 11/30/19 Range/Units 00:12 04:40 04:40 WBC 14.5 H (3.8-10.6) k/uL RBC 3.30 L (4.30-5.90) m/uL Hgb 10.6 L (13.0-17.5) gm/dL Hct 32.6 L (39.0-53.0) % BUN 30 H (9-20) mg/dL POC Glucose (mg/dL) 191 H (75-99) mg/dL Urine Protein (Negative) Urine Blood (Negative) Urine RBC (0-5) /hpf Urine WBC (0-5) /hpf Urine Bacteria (None) /hpf Urine Mucus (None) /hpf 11/30/19 11/30/19 Range/Units 07:35 11:57 WBC (3.8-10.6) k/uL RBC (4.30-5.90) m/uL Hgb (13.0-17.5) gm/dL Hct (39.0-53.0) % BUN (9-20) mg/dL POC Glucose (mg/dL) 167 H 127 H (75-99) mg/dL Urine Protein (Negative) Urine Blood (Negative) Urine RBC (0-5) /hpf Urine WBC (0-5) /hpf Urine Bacteria (None) /hpf Urine Mucus (None) /hpf Assessment and Plan Plan: 1 coronary artery disease without stable angina and non-STEMI. The patient unde rwent five-vessel bypass surgery. CABG 5 with GR to LAD, left radial artery to obtuse marginal, saphenous vein to posterior lateral, sequential saphenous vein to first and second diagonal performed on cardiopulmonary bypass with beating heart. Epi-aortic ultrasound and ligation of left atrial appendage with Ben clip. The patient is postop day #22 2 post thoracotomy with recurrent episodes of respiratory failure and the patient is currently extubated on room air oxygen and the patient has bilateral chest tubes in place . They left-sided chest tube was removed yesterday and there may be a tiny left apical pneumothorax. The right-sided chest tube is still in place possibly out today. No evidence of any air leak. 3 altered mental status, with episodic confusion. The patient also has some speech deficits. No focal neurological deficit. He has global weakness and neurology has been on the case. 4 COPD with an FEV1 of 60% of predicted at baseline 5 symptomatic bradycardia post dual-chamber pacemaker insertion and the patient is postop day #5. The patient also did develop some postoperative atrial fibrillation and is post left atrial appendage ligation 6 Peripheral vascular disease with prior peripheral stent placements 7 Right carotid artery stenosis at 50-69% 7 History of marijuana use 8 Diabetes mellitus, type II, insulin drip for blood sugar control 9 History of bladder cancer status post radiation/chemotherapy and subsequent surgery 10 History of noncompliance 11 acute kidney injury , recovered 12 history of marijuana smoking 13 history of drug noncompliance 14 stage II pressure ulcer involving the coccyx 15 generalized weakness 16 diarrhea, consider C. diff colitis Plan We'll remove the right-sided chest tube today Monitor the chest x-ray Incentive spirometer Continue vancomycin orally and Eraxis per ID recommendation Awaiting final cultures We'll continue to follow
--- NOTE | 2019-11-30 15:10 | P.PN ---
Subjective 64-year-old male was recently discharged from the hospital came back in with the chest pain pressure-like sensation lasted for a few hours . Patient found to have Coronary artery disease and non-ST elevation myocardial infarction status post CABG 5 vessel on 11/07. He is also with A. fib and RVR and bradycardia, Also status post pacemaker placement. on follow-up currently remains in the ICU . He is awake, he looks somewhat confused and he does not answer my question common family at bedside says that the way he is. However no weakness is noted in the extremities. Patient looks comfortable and not in distress or pain. Mostly his decreased mentation is a due to multiple subacute stroke and he L-MCA territory He is hemodynamically stable and afebrile. WBC is slightly elevated at 15.8 K,Hemoglobin is 10.2k and platelets normal at 508. Creatinine 1.0 and other electrolytes are normal, sugars controlled currently however it was low this morning at 56. his 20 units of Levemir is lowered to 15 units and switched from at bedtime to daily Remains on IV Lasix 40 mg twice daily (for bilateral pleural effusion fluid overload ) and oral vancomycin His been evaluated by and followed closely by several consultants including CTS, cardiology team, pulmonary/critical care, infectious disease and neurology services 11/30/2019 Patient is clinically doing well at this time blood sugars are very well controlled at this time. Patient probably will be started on long-acting insulin along with either metformin or Januvia upon discharge. Constitutional: Denied any fatigue denied any fever. Cardio vascular: denied any chest pain, palpitations Gastrointestinal denied any nausea vomiting Pulmonary: Denied any shortness of breath cough Neurologic denied any new focal deficits All inpatient medications were reviewed and appropriate changes in these medications as dictated in the interval history and assessment and plan. Objective - Vital Signs Vital signs: Vital Signs Temp 98.3 F 11/30/19 04:00 Pulse 75 11/30/19 13:35 Resp 23 11/30/19 07:00 BP 104/64 11/30/19 07:00 Pulse Ox 96 11/30/19 07:00 Intake & Output 11/29/19 11/30/19 11/30/19 18:59 06:59 18:59 Intake Total 1700 Output Total 855 1355 40 Balance 845 -1355 -40 Weight 80.5 kg 76.5 kg Intake: Intake, IV Titration 200 Amount Anidulafungin 100 mg In 200 Sodium Chloride 0.9% 100 ml @ 84 mls/hr IVPB DAILY [facility] Rx#:[id number] Oral 1500 Output: Urine 855 1355 40 Other: Voiding Method Indwelling Catheter Indwelling Catheter ABP, PAP, CO, CI - Last Documented Arterial Blood Pressure 155/55 Pulmonary Artery Pressure 30/17 Cardiac Output 4.5 Cardiac Index 2.3 - Exam PHYSICAL EXAMINATION: GENERAL: The patient is alert and oriented x3, not in any acute distress. Well developed, well nourished. HEENT: Pupils are round and equally reacting to light. EOMI. No scleral icterus. No conjunctival pallor. Normocephalic, atraumatic. No pharyngeal erythema. No thyromegaly. CARDIOVASCULAR: S1 and S2 present. No murmurs, rubs, or gallops. PULMONARY: Chest is clear to auscultation, no wheezing or crackles. ABDOMEN: Soft, nontender, nondistended, normoactive bowel sounds. No palpable organomegaly. MUSCULOSKELETAL: No joint swelling or deformity. EXTREMITIES: No cyanosis, clubbing, or pedal edema. NEUROLOGICAL: Gross neurological examination did not reveal any focal deficits. SKIN: No rashes. - Labs CBC & Chem 7: 11/30/19 04:40 11/30/19 04:40 Labs: Abnormal Lab Results - Last 24 Hours (Table) 11/29/19 11/29/19 11/29/19 Range/Units 16:37 16:44 19:59 WBC (3.8-10.6) k/uL RBC (4.30-5.90) m/uL Hgb (13.0-17.5) gm/dL Hct (39.0-53.0) % BUN (9-20) mg/dL POC Glucose (mg/dL) 158 H 194 H (75-99) mg/dL Urine Protein Trace H (Negative) Urine Blood Moderate H (Negative) Urine RBC 148 H (0-5) /hpf Urine WBC 8 H (0-5) /hpf Urine Bacteria Rare H (None) /hpf Urine Mucus Rare H (None) /hpf 11/30/19 11/30/19 11/30/19 Range/Units 00:12 04:40 04:40 WBC 14.5 H (3.8-10.6) k/uL RBC 3.30 L (4.30-5.90) m/uL Hgb 10.6 L (13.0-17.5) gm/dL Hct 32.6 L (39.0-53.0) % BUN 30 H (9-20) mg/dL POC Glucose (mg/dL) 191 H (75-99) mg/dL Urine Protein (Negative) Urine Blood (Negative) Urine RBC (0-5) /hpf Urine WBC (0-5) /hpf Urine Bacteria (None) /hpf Urine Mucus (None) /hpf 11/30/19 11/30/19 Range/Units 07:35 11:57 WBC (3.8-10.6) k/uL RBC (4.30-5.90) m/uL Hgb (13.0-17.5) gm/dL Hct (39.0-53.0) % BUN (9-20) mg/dL POC Glucose (mg/dL) 167 H 127 H (75-99) mg/dL Urine Protein (Negative) Urine Blood (Negative) Urine RBC (0-5) /hpf Urine WBC (0-5) /hpf Urine Bacteria (None) /hpf Urine Mucus (None) /hpf Assessment and Plan Plan: -Coronary artery disease and non-ST elevation myocardial infarction status post CABG 5 vessel -status post permanent pacemaker placement due to Persistant Bradycardia. Status post AICD and pacemaker placement -bilateral pleural effusions status post bilateral chest tube placement of the left and right -Altered mental status most likely secondary to toxic and metabolic encephalopathy. Probable subacute stroke involving multiple patchy areas in the left MCA vascular territory. neurology evaluated pt. Patient confusion resolved -New onset atrial fibrillation and RVR; remains rate controlled on amiodarone. Patient is presently sinus rhythm -Type 2 diabetes; continue with Levemir 20 units subcu daily at bedtime; monitor Accu-Cheks every before meals and at bedtime with insulin sliding scale. -Peripheral vessel occlusive disease with prior peripheral stent placement. -Moderate severe COPD FEV1 of 60%; not in exacerbation; continue with bronchodilator nebulizer treatment and home inhaler therapy. -Acute kidney injury and acute shock liver secondary to hypotension, improved -Diarrhea: C. diff was ordered patient was started on oral vancomycin -CODE STATUS; full code
[2019-11-30 15:55] LABS: Glucose,Whole Blood 217 mg/dL (75-99)
--- NOTE | 2019-11-30 16:16 | PN ---
PROGRESS NOTE DATE OF SERVICE: 11/30/2019 REASON FOR FOLLOWUP: Leukocytosis. INTERVAL HISTORY: The patient is currently afebrile. The patient is hemodynamically stable. He has been breathing comfortably on nasal cannula oxygen. His diarrhea has slowed down, changes today. PHYSICAL EXAMINATION: Blood pressure 120/73 with a pulse of 89, temp of 98.3, he is 94% on room air. General description is an elderly male, lying in bed in no distress. RESPIRATORY SYSTEM: Unlabored breathing, decreased breath sounds with no wheeze. HEART: S1, S2. Regular rate and rhythm. ABDOMEN: Soft, no tenderness. LABS: Urine was not significantly positive. White count slightly up to 14.5. DIAGNOSTIC IMPRESSION AND PLAN: Patient with leukocytosis, multifactorial with the biggest concern for possible C difficile. In view of significant diarrhea and the patient currently improved with oral [QAMARKER], patient in the white count. So far culture has been negative and with concern for possible UTI; however, the urine no significant pyuria. Will discontinue the . Continue the vancomycin for another week and monitor clinical course closely. MMODL / IJN: [id number] /
[2019-11-30 20:02] LABS: Glucose,Whole Blood 190 mg/dL (75-99)
[2019-12-01 00:07] LABS: Glucose,Whole Blood 164 mg/dL (75-99)
[2019-12-01] MEDS: HEPARIN SODIUM,PORCINE 5,000 UNIT/ML 1 ML VIAL SQ SCH ×4 (00:18→23:29)
[2019-12-01] MEDS: VANCOMYCIN ORAL SOLUTION 250 MG/5 ML BOTTLE PO SCH ×5 (00:19→23:29)
[2019-12-01] MEDS: INSULIN ASPART (NovoLOG) 100 UNIT/ML VIAL SQ SCH ×10 (00:19→20:17)
[2019-12-01] MEDS: QUEtiapine 25 MG TAB PO PRN (00:22)
[2019-12-01 04:30] LABS: Glucose,Whole Blood 111 mg/dL (75-99)
[2019-12-01 04:36] LABS: HCT 34.1 % (39.0-53.0); HGB 10.3 gm/dL (13.0-17.5); Hypochromasia Marked; MCH 30.9 pg (25.0-35.0); MCHC 30.4 g/dL (31.0-37.0); MCV 101.6 fL (80.0-100.0); Macrocytosis Slight; Mean Platelet Volume 7.7; Platelet Count 353 k/uL (150-450); RBC 3.35 m/uL (4.30-5.90); RDW 14.9 % (11.5-15.5); WBC 15.2 k/uL (3.8-10.6)
[2019-12-01 04:54] LABS: Calcium 9.4 mg/dL (8.4-10.2); Potassium 4.7 mmol/L (3.5-5.1)
[2019-12-01] MEDS: LACTOBACILLUS ACIDOPH & BULGAR 1 EACH PACKET PO SCH ×3 (06:37→17:05)
[2019-12-01] MEDS: CHOLESTYRAMINE (WITH SUGAR) 4 GM PACKET PO SCH ×4 (06:37→20:17)
[2019-12-01] MEDS: ASCORBIC ACID 500 MG TAB PO SCH ×2 (06:38→17:05)
[2019-12-01] MEDS: PANTOPRAZOLE 40 MG TABLET PO SCH (06:38)
[2019-12-01] MEDS ORDERED: QUEtiapine 25 MG TAB PO PRN (07:04)
--- NOTE | 2019-12-01 07:24 | P.PN ---
Subjective Progress Note Date: 12/01/19 Principal diagnosis: Coronary artery disease and status post CABG This is a 64-year-old gentleman with coronary artery disease and prior coronary artery stenting as well as hypertension and dyslipidemia and history of smoking and COPD who underwent CABG and this is postoperative patient the #20. The patient was seen this morning. Today's 12/01/2019. He continues to have a change in mental status. Otherwise hemodynamically he is stable. He has been maintaining normal sinus mechanism. The plan is to discharge the patient into an extended-care facility later on today Objective - Vital Signs Vital signs: Vital Signs Temp 98.3 F 12/01/19 04:00 Pulse 74 12/01/19 07:00 Resp 18 12/01/19 07:00 BP 118/68 12/01/19 07:00 Pulse Ox 96 12/01/19 07:00 Intake & Output 11/30/19 12/01/19 12/01/19 18:59 06:59 18:59 Intake Total 1600 Output Total 3800 570 60 Balance -2200 -570 -60 Weight 76.6 kg Intake: Intake, IV Titration 100 Amount Anidulafungin 100 mg In 100 Sodium Chloride 0.9% 100 ml @ 84 mls/hr IVPB DAILY [facility] Rx#:[id number] Oral 1500 Output: Urine 800 570 60 Stool 3000 Other: Voiding Method Indwelling Catheter Indwelling Catheter ABP, PAP, CO, CI - Last Documented Arterial Blood Pressure 155/55 Pulmonary Artery Pressure 30/17 Cardiac Output 4.5 Cardiac Index 2.3 - Constitutional General appearance: Present: no acute distress - Labs CBC & Chem 7: 12/01/19 03:57 12/01/19 03:57 Labs: Abnormal Lab Results - Last 24 Hours (Table) 11/30/19 11/30/19 11/30/19 Range/Units 07:35 11:57 15:53 WBC (3.8-10.6) k/uL RBC (4.30-5.90) m/uL Hgb (13.0-17.5) gm/dL Hct (39.0-53.0) % MCV (80.0-100.0) fL MCHC (31.0-37.0) g/dL BUN (9-20) mg/dL POC Glucose (mg/dL) 167 H 127 H 217 H (75-99) mg/dL 11/30/19 12/01/19 12/01/19 Range/Units 20:01 00:06 03:57 WBC 15.2 H (3.8-10.6) k/uL RBC 3.35 L (4.30-5.90) m/uL Hgb 10.3 L (13.0-17.5) gm/dL Hct 34.1 L (39.0-53.0) % MCV 101.6 H (80.0-100.0) fL MCHC 30.4 L (31.0-37.0) g/dL BUN (9-20) mg/dL POC Glucose (mg/dL) 190 H 164 H (75-99) mg/dL 12/01/19 12/01/19 Range/Units 03:57 04:27 WBC (3.8-10.6) k/uL RBC (4.30-5.90) m/uL Hgb (13.0-17.5) gm/dL Hct (39.0-53.0) % MCV (80.0-100.0) fL MCHC (31.0-37.0) g/dL BUN 36 H (9-20) mg/dL POC Glucose (mg/dL) 111 H (75-99) mg/dL Microbiology - Last 24 Hours (Table) 11/29/19 15:01 Blood Culture - Preliminary Blood No Growth after 24 hours Assessment and Plan Assessment: Assessment #1 coronary artery disease and status post CABG #2 bradycardia status post permanent pacemaker #3 multiple comorbid condition #4 change in mental status Plan #1 continue the current medical regimen #2 the patient is going to be discharged
[2019-12-01 07:56] LABS: Glucose,Whole Blood 163 mg/dL (75-99)
[2019-12-01] MEDS: IPRATROPIUM-ALBUTEROL 3 ML NEB INHALATION SCH ×4 (08:58→18:39)
[2019-12-01] MEDS: INSULIN DETEMIR (LEVEMIR) 100 UNIT/ML SYR SQ SCH (09:20)
[2019-12-01] MEDS: ASPIRIN 325 MG TAB PO SCH (09:24)
[2019-12-01] MEDS: AMIODARONE 200 MG TAB PO SCH (09:24)
[2019-12-01] MEDS: NYSTATIN 100,000 UNIT/ML SUSP 500,000 UNIT/5 ML CUP PO SCH (09:24)
[2019-12-01] MEDS: ATORVASTATIN 40 MG TAB PO SCH (09:24)
[2019-12-01] MEDS: CLOPIDOGREL 75 MG TAB PO SCH (09:24)
[2019-12-01] MEDS: METOPROLOL TARTRATE 50 MG TAB PO SCH ×2 (09:24→20:17)
[2019-12-01] MEDS: LOSARTAN 25 MG TAB PO SCH (09:24)
[2019-12-01] MEDS: FUROSEMIDE 40 MG TAB PO SCH (09:25)
--- NOTE | 2019-12-01 09:33 | XR ---
EXAMINATION TYPE: XR chest 1V portable DATE OF EXAM: 12/01/2019 CLINICAL HISTORY: Effusion TECHNIQUE: Portable upright frontal view of the chest obtained COMPARISON: 11/30/2019 chest radiograph FINDINGS: Sternotomy wires, left atrial appendage clip, and left-sided dual-chamber pacemaker redemo nstrated. Interval removal of right-sided chest tube. Resolution of tiny left apical pneumothorax dem onstrated on 11/30/2019 comparison. No evidence of pneumothorax on current examination. The cardiomedia stinal silhouette is within normal limits for size. No focal air space opacity or pleural effusion. IMPRESSION: 1. Resolution of tiny left pneumothorax demonstrated on 11/30/2019 comparison. 2. Interval removal of right-sided chest tube.
--- NOTE | 2019-12-01 11:01 | P.PN ---
Subjective Progress Note Date: 12/01/19 Principal diagnosis: Symptomatic multivessel coronary artery disease, unstable angina, status post subendocardial myocardial infarction. Past medical history significant for CAD with previous stent placement to the proximal circumflex and ostial OM1, hypertension, hyperlipidemia, chronic ongoing tobacco dependence, mild COPD with preoperative FEV1 60% of predicted, right internal carotid artery stenosis 50- 69%, peripheral arterial disease with previous arthrectomy and UNDERWEAR CUTTER of the left SFA, atherectomy and UNDERWEAR CUTTER of the left METAL GRADER, with stenting of the left BRIAN, poorly controlled type 2 diabetes with preoperative hemoglobin A1c 9.1%, bladder cancer status post chemo and radiation, occasional marijuana use, medication noncompliance, and family history of premature coronary artery disease. POD #23 coronary artery bypass grafting 5 with GR to the LAD, left radial artery to the obtuse marginal coronary artery, a reverse greater saphenous vein to the posterior lateral coronary artery, sequential saphenous vein to the first and second diagonal coronary artery performed on cardiopulmonary bypass with beating heart. Endoscopic vein harvest of the left greater saphenous vein from the ankle to the groin. Endoscopic harvest of the left radial artery. Epi- aortic ultrasound and ligation of left atrial appendage with 40 mm AtriCure clip. Postoperative acute blood loss anemia, expected outcome given cardiopulmonary bypass and hemodilution. Postoperative encephalopathy, unexpected but potential outcome given cardiopulmonary bypass and intraoperative cardiac arrest. Postoperative new onset paroxysmal Afib with RVR, unexpected. Postoperative acute hypoxemic respiratory failure requiring reintubation, secondary to metabolic acidosis and hypotension. Postoperative stage II pressure ulcer on coccyx, unexpected. Postoperative bradycardia, unexpected POD # Medtronic dual-chamber permanent pacemaker implantation, axillary venography The patient was seen in follow-up today 12/01/2019 at his bedside in the intensive care unit. He is resting upright in bed in the chair position. He is awake, alert, A&O to self only. He moves all extremities and follows commands, but is still confused, remains calm. His newman catheter remains in place. His right pleural chest tube and FMS were discontinued yesterday. He was able to stand x2 yesterday per nursing, but then had to be lifted into the chair. This mornings chest xray revealed possible right apical pneumothorax. Dr Malin updated and a repeat CXR will be ordered for 1pm today to determine further plan of care for the pneumothorax. If negative for pneumothorax, patient is cleared to go to [facility]. Objective - Vital Signs Vital signs: Vital Signs Temp 98.3 F 12/01/19 04:00 Pulse 81 12/01/19 08:58 Resp 18 12/01/19 07:00 BP 118/68 12/01/19 07:00 Pulse Ox 96 12/01/19 07:00 Intake & Output 11/30/19 12/01/19 12/01/19 18:59 06:59 18:59 Intake Total 1600 Output Total 3800 570 60 Balance -2200 -570 -60 Weight 76.6 kg Intake: Intake, IV Titration 100 Amount Anidulafungin 100 mg In 100 Sodium Chloride 0.9% 100 ml @ 84 mls/hr IVPB DAILY [facility] Rx#:[id number] Oral 1500 Output: Urine 800 570 60 Stool 3000 Other: Voiding Method Indwelling Catheter Indwelling Catheter ABP, PAP, CO, CI - Last Documented Arterial Blood Pressure 155/55 Pulmonary Artery Pressure 30/17 Cardiac Output 4.5 Cardiac Index 2.3 - Constitutional General appearance: Present: cooperative, no acute distress - EENT Eyes: Present: PERRLA ENT: Present: hearing grossly normal - Respiratory Details: Lung sounds clear bilaterally, diminished in the bases. Respirations equal and nonlabored. Oxygen saturation is 97% on room air. - Cardiovascular Details: S1, S2 present. Regular rate and rhythm. Normal sinus rhythm, rate 84 on the library monitor. Palpable peripheral pulses bilaterally, no edema present. Heart hugger, antiembolism stockings, SCDs present. - Gastrointestinal Gastrointestinal Comment(s): Abdomen soft, nontender, nondistended. Active bowel sounds present 4 quadrants . Tolerating diet. - Genitourinary Genitourinary Comment(s): Newman catheter in place. Clear, yellow urine. 1370 ml urine out in 24 hours, averaging 30-50 ml/hr. - Integumentary Integumentary Comment(s): Skin is warm and dry with evidence of good perfusion. Anterior chest incision well approximated and covered with dry intact dressing. Left lower extremity EVH site well approximated without drainage or redness. Left radial artery harvest site dry and intact without redness or drainage, good cap refill. Stage II pressure ulcer present to coccyx area. Left chest wall pacer site well approx, dressing dry and intact - Neurologic Neurologic: Present: CNII-XII intact - Musculoskeletal Musculoskeletal: Present: generalized weakness, strength equal bilaterally - Psychiatric Psychiatric Comment(s): Alert, oriented to person only. Follows commands selectively. - Allied health notes Allied health notes reviewed: nursing - Labs CBC & Chem 7: 12/01/19 03:57 12/01/19 03:57 Labs: Abnormal Lab Results - Last 24 Hours (Table) 11/30/19 11/30/19 11/30/19 Range/Units 11:57 15:53 20:01 WBC (3.8-10.6) k/uL RBC (4.30-5.90) m/uL Hgb (13.0-17.5) gm/dL Hct (39.0-53.0) % MCV (80.0-100.0) fL MCHC (31.0-37.0) g/dL BUN (9-20) mg/dL POC Glucose (mg/dL) 127 H 217 H 190 H (75-99) mg/dL 12/01/19 12/01/19 12/01/19 Range/Units 00:06 03:57 03:57 WBC 15.2 H (3.8-10.6) k/uL RBC 3.35 L (4.30-5.90) m/uL Hgb 10.3 L (13.0-17.5) gm/dL Hct 34.1 L (39.0-53.0) % MCV 101.6 H (80.0-100.0) fL MCHC 30.4 L (31.0-37.0) g/dL BUN 36 H (9-20) mg/dL POC Glucose (mg/dL) 164 H (75-99) mg/dL 12/01/19 12/01/19 Range/Units 04:27 07:54 WBC (3.8-10.6) k/uL RBC (4.30-5.90) m/uL Hgb (13.0-17.5) gm/dL Hct (39.0-53.0) % MCV (80.0-100.0) fL MCHC (31.0-37.0) g/dL BUN (9-20) mg/dL POC Glucose (mg/dL) 111 H 163 H (75-99) mg/dL Microbiology - Last 24 Hours (Table) 11/29/19 15:01 Blood Culture - Preliminary Blood No Growth after 24 hours - Imaging and Cardiology Chest x-ray: image reviewed Assessment and Plan Assessment: 1. Symptomatic multivessel coronary artery disease, recent non-STEMI, status post 5 vessel CABG 2. Leukocytosis, maybe multifactoral. Blood, sputum, urine cultures negative to date although drawn after antibiotics started. 3. Previous stent placement to the proximal circumflex and ostial OM1 4. History of hypertension 5. History of hyperlipidemia 6. Chronic ongoing tobacco dependence 7. Mild COPD, preoperative FEV1 60% of predicted value 8. Right internal carotid artery stenosis 50-69%. 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 9. History of peripheral arterial disease with previous arthrectomy and UNDERWEAR CUTTER of the left SFA and atherectomy and UNDERWEAR CUTTER of the left METAL GRADER with stenting of the left BRIAN 10. Poorly controlled diabetes mellitus type 2 with hyperglycemia, admission hemoglobin A1c 9.1% 11. History of bladder cancer status post radiation, chemotherapy treatment and bladder surgery 12. Occasional marijuana use 13. Medication noncompliance 14. Family history of early onset coronary artery disease 15. Postoperative acute blood loss anemia, expected 16. Postoperative encephalopathy, unexpected, no definitive stroke (symptomatology attributed to encephalopathy, hypotention, intraoperative events; left atrial appendage was clipped and TTE demonstrated no embolic source; no focal deficits; patient's ability to move/participate has been alondra ective; no change from first CT to second, no definite acute timing of changes in brain images, may be pre-operative; neurology unable to definitively say patient had acute stroke) 17. Mild ISAAC, resolved 18. Afib with RVR, status post left atrial appendage ligation, currently Sinus Rhythm 19. Hematuria, resolved, likely from patient pulling at newman catheter 20. Postoperative acute hypoxic respiratory failure requiring reintubation, secondary to metabolic acidosis and hypotension 21. Elevated transaminase levels, shock liver, secondary to hypotension, trending down 22. New stage II pressure ulcer, coccyx 23. Postoperative bilateral pleural effusions, status post bilateral pleural ch est tube placement 24. Postoperative bradycardia, status post Medtronic dual-chamber pacemake Plan: 1. Continue aspirin, Plavix, statin, beta gaurav, Cozaar. Will increase beta gaurav therapy as tolerated. 2. Continue amiodorone for atrial fibrillation prophylaxis. No anticoagulation necessary 3. Discontinue newman. 5. Silvadene cream to be applied to coccyx twice a day. Turn minimum every 2 hours. 6. Bronchodilators per pulmonology. Encourage incentive spirometry use 7. Will monitor daily labs and chest x-rays. Elective replacement per protocol. 8. Pain management per current medication regimen 9. GI/DVT prophylaxis. 10. Insulin management per primary care service. 11. Continue lasix to 40 mg by mouth daily 12. Reorient as necessary. Continue to assess mental status 13. Continue oral vancomycin per infectious disease, currently day #11. Await urine culture, no leuk esterase or nitrites on UA, started on Eraxis per ID 14. Repeat CXR to assess possible right apical pneumothorax. 15. Patient will need rehab at discharge. Anticipate discharge to [facility] today. 16. More recommendations to follow based on patient's clinical course. Time with Patient: Greater than 30
[2019-12-01 11:35] LABS: Glucose,Whole Blood 231 mg/dL (75-99)
[2019-12-01] MEDS: DILTIAZEM CD 120 MG CAP.ER.24H PO SCH (12:19)
[2019-12-01] MEDS ORDERED: INSULIN DETEMIR (LEVEMIR) 100 UNIT/ML SYR SQ ONE (13:09)
--- NOTE | 2019-12-01 14:10 | P.PN ---
Subjective Progress Note Date: 12/01/19 12/01/2019 the patient is postop day #23 following coronary bypass surgery where he underwent a 5 vessel bypass and the patient is postop day #6 following a pacemaker insertion, and dual-chamber pacemaker. Doing well. His chest x-ray from today shows a tiny right-sided pneumothorax post chest tube removal. No respiratory difficulties. No cough or sputum production. No chest tightness. No wheezing. No hypoglycemia. He is communicating for now. His white cell count of 15.2. Hemoglobin is at 10.3. Renal function stable creatinine of 1.1. He is using incentive spirometer. His resting comfortably in bed on room air oxygen. Objective - Vital Signs Vital signs: Vital Signs Temp 98.1 F 12/01/19 08:00 Pulse 75 12/01/19 13:04 Resp 18 12/01/19 11:00 BP 123/78 12/01/19 11:00 Pulse Ox 95 12/01/19 11:00 Intake & Output 11/30/19 12/01/19 12/01/19 18:59 06:59 18:59 Intake Total 1600 Output Total 3800 570 255 Balance -2200 -570 -255 Weight 76.6 kg Intake: Intake, IV Titration 100 Amount Anidulafungin 100 mg In 100 Sodium Chloride 0.9% 100 ml @ 84 mls/hr IVPB DAILY [facility] Rx#:[id number] Oral 1500 Output: Urine 800 570 255 Stool 3000 Other: Voiding Method Indwelling Catheter Indwelling Catheter ABP, PAP, CO, CI - Last Documented Arterial Blood Pressure 155/55 Pulmonary Artery Pressure 30/17 Cardiac Output 4.5 Cardiac Index 2.3 - Exam - Constitutional General appearance: Present: cooperative, no acute distress - EENT Eyes: Present: PERRLA ENT: Present: hearing grossly normal - Respiratory Details: Lung sounds clear bilaterally, diminished in the bases. Respirations equal and nonlabored. Oxygen saturation is 97% on room air. - Cardiovascular Details: S1, S2 present. Regular rate and rhythm. Normal sinus rhythm, rate 84 on the color television console monitor. Palpable peripheral pulses bilaterally, no edema present. Heart hugger, antiembolism stockings, SCDs present. - Gastrointestinal Gastrointestinal Comment(s): Abdomen soft, nontender, nondistended. Active bowel sounds present 4 quadrants. Tolerating diet. - Genitourinary Genitourinary Comment(s): Junior catheter in place. Clear, yellow urine. 1370 ml urine out in 24 hours, averaging 30-50 ml/hr. - Integumentary Integumentary Comment(s): Skin is warm and dry with evidence of good perfusion. Anterior chest incision well approximated and covered with dry intact dressing. Left lower extremity EVH site well approximated without drainage or redness. Left radial artery harvest site dry and intact without redness or drainage, good cap refill. Stage II pressure ulcer present to coccyx area. Left chest wall pacer site well approx, dressing dry and intact - Neurologic Neurologic: Present: CNII-XII intact - Musculoskeletal Musculoskeletal: Present: generalized weakness, strength equal bilaterally - Psychiatric Psychiatric Comment(s): Alert, oriented to person only. Follows commands selectively. - Allied health notes Allied health notes reviewed: nursing - Labs CBC & Chem 7: 12/01/19 03:57 12/01/19 03:57 Labs: Abnormal Lab Results - Last 24 Hours (Table) 11/30/19 11/30/19 12/01/19 Range/Units 15:53 20:01 00:06 WBC (3.8-10.6) k/uL RBC (4.30-5.90) m/uL Hgb (13.0-17.5) gm/dL Hct (39.0-53.0) % MCV (80.0-100.0) fL MCHC (31.0-37.0) g/dL BUN (9-20) mg/dL POC Glucose (mg/dL) 217 H 190 H 164 H (75-99) mg/dL 12/01/19 12/01/19 12/01/19 Range/Units 03:57 03:57 04:27 WBC 15.2 H (3.8-10.6) k/uL RBC 3.35 L (4.30-5.90) m/uL Hgb 10.3 L (13.0-17.5) gm/dL Hct 34.1 L (39.0-53.0) % MCV 101.6 H (80.0-100.0) fL MCHC 30.4 L (31.0-37.0) g/dL BUN 36 H (9-20) mg/dL POC Glucose (mg/dL) 111 H (75-99) mg/dL 12/01/19 12/01/19 Range/Units 07:54 11:34 WBC (3.8-10.6) k/uL RBC (4.30-5.90) m/uL Hgb (13.0-17.5) gm/dL Hct (39.0-53.0) % MCV (80.0-100.0) fL MCHC (31.0-37.0) g/dL BUN (9-20) mg/dL POC Glucose (mg/dL) 163 H 231 H (75-99) mg/dL Microbiology - Last 24 Hours (Table) 11/29/19 15:01 Blood Culture - Preliminary Blood No Growth after 24 hours Assessment and Plan Plan: 1 coronary artery disease without stable angina and non-STEMI. The patient underwent five-vessel bypass surgery. CABG 5 with GR to LAD, left radial artery to obtuse marginal, saphenous vein to posterior lateral, sequential saphenous vein to first and second diagonal performed on cardiopulmonary bypass with beating heart. Epi-aortic ultrasound and ligation of left atrial appendage with Ben clip. The patient is postop day #23 2 post thoracotomy with a tiny right residual right-sided pneumothorax. 3 altered mental status, with episodic confusion. The patient also has some speech deficits. No focal neurological deficit. He has global weakness and neurology has been on the case. I realize that the patient's mental status gradually improving and he is becoming more cohesive. 4 COPD with an FEV1 of 60% of predicted at baseline 5 symptomatic bradycardia post dual-chamber pacemaker insertion and the patient is postop day #6. The patient also did develop some postoperative atrial fib rillation and is post left atrial appendage ligation 6 Peripheral vascular disease with prior peripheral stent placements 7 Right carotid artery stenosis at 50-69% 7 History of marijuana use 8 Diabetes mellitus, type II, insulin drip for blood sugar control 9 History of bladder cancer status post radiation/chemotherapy and subsequent surgery 10 History of noncompliance 11 acute kidney injury , recovered 12 history of marijuana smoking 13 history of drug noncompliance 14 stage II pressure ulcer involving the coccyx 15 generalized weakness 16 diarrhea, consider C. diff colitis Plan Monitor the chest x-ray and repeat a chest x-ray today to reevaluate for any progression of this right-sided pneumothorax Incentive spirometer Continue vancomycin orally and Eraxis per ID recommendation Awaiting final cultures and all of the cultures are negative thus far. Monitor white cell count Transfer this patient to rehab within next 24-48 hours We'll continue to follow
[2019-12-01 14:33] LABS: Glucose,Whole Blood 143 mg/dL (75-99)
[2019-12-01] MEDS: LINAGLIPTIN 5 MG TABLET PO SCH (14:40)
--- NOTE | 2019-12-01 14:52 | P.PN ---
Subjective 64-year-old male was recently discharged from the hospital came back in with the chest pain pressure-like sensation lasted for a few hours . Patient found to have Coronary artery disease and non-ST elevation myocardial infarction status post CABG 5 vessel on 11/07. He is also with A. fib and RVR and bradycardia, Also status post pacemaker placement. on follow-up currently remains in the ICU . He is awake, he looks somewhat confused and he does not answer my question common family at bedside says that the way he is. However no weakness is noted in the extremities. Patient looks comfortable and not in distress or pain. Mostly his decreased mentation is a due to multiple subacute stroke and he L-MCA territory He is hemodynamically stable and afebrile. WBC is slightly elevated at 15.8 K,Hemoglobin is 10.2k and platelets normal at 508. Creatinine 1.0 and other electrolytes are normal, sugars controlled currently however it was low this morning at 56. his 20 units of Levemir is lowered to 15 units and switched from at bedtime to daily Remains on IV Lasix 40 mg twice daily (for bilateral pleural effusion fluid overload ) and oral vancomycin His been evaluated by and followed closely by several consultants including CTS, cardiology team, pulmonary/critical care, infectious disease and neurology services 11/30/2019 Patient is clinically doing well at this time blood sugars are very well controlled at this time. Patient probably will be started on long-acting insulin along with either metformin or Januvia upon discharge. 12/01/2019 Patient is awaiting discharged to subacute rehabilitation. Patient's insulin regimen is being changed to this to long-acting insulin increasing the dose of long-acting insulin patient will be started on Januvia discontinue pre-meal insulin continue with pre-meal sliding scale insulin. 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 Constitutional: Denied any fatigue denied any fever. Cardio vascular: denied any chest pain, palpitations Gastrointestinal denied any nausea vomiting Pulmonary: Denied any shortness of breath cough Neurologic denied any new focal deficits All inpatient medications were reviewed and appropriate changes in these medications as dictated in the interval history and assessment and plan. Objective - Vital Signs Vital signs: Vital Signs Temp 98.2 F 12/01/19 12:00 Pulse 81 12/01/19 14:00 Resp 16 12/01/19 14:00 BP 114/53 12/01/19 14:00 Pulse Ox 97 12/01/19 14:00 Intake & Output 11/30/19 12/01/19 12/01/19 18:59 06:59 18:59 Intake Total 1600 Output Total 3800 570 730 Balance -2200 -570 -730 Weight 76.6 kg Intake: Intake, IV Titration 100 Amount Anidulafungin 100 mg In 100 Sodium Chloride 0.9% 100 ml @ 84 mls/hr IVPB DAILY [facility] Rx#:[id number] Oral 1500 Output: Urine 800 570 730 Stool 3000 Other: Voiding Method Indwelling Catheter Indwelling Catheter ABP, PAP, CO, CI - Last Documented Arterial Blood Pressure 155/55 Pulmonary Artery Pressure 30/17 Cardiac Output 4.5 Cardiac Index 2.3 - Exam PHYSICAL EXAMINATION: GENERAL: The patient is alert and oriented x3, not in any acute distress. Well developed, well nourished. HEENT: Pupils are round and equally reacting to light. EOMI. No scleral icterus. No conjunctival pallor. Normocephalic, atraumatic. No pharyngeal erythema. No thyromegaly. CARDIOVASCULAR: S1 and S2 present. No murmurs, rubs, or gallops. PULMONARY: Chest is clear to auscultation, no wheezing or crackles. ABDOMEN: Soft, nontender, nondistended, normoactive bowel sounds. No palpable organomegaly. MUSCULOSKELETAL: No joint swelling or deformity. EXTREMITIES: No cyanosis, clubbing, or pedal edema. NEUROLOGICAL: Gross neurological examination did not reveal any focal deficits. SKIN: No rashes. - Labs CBC & Chem 7: 12/01/19 03:57 12/01/19 03:57 Labs: Abnormal Lab Results - Last 24 Hours (Table) 11/30/19 11/30/19 12/01/19 Range/Units 15:53 20:01 00:06 WBC (3.8-10.6) k/uL RBC (4.30-5.90) m/uL Hgb (13.0-17.5) gm/dL Hct (39.0-53.0) % MCV (80.0-100.0) fL MCHC (31.0-37.0) g/dL BUN (9-20) mg/dL POC Glucose (mg/dL) 217 H 190 H 164 H (75-99) mg/dL 12/01/19 12/01/19 12/01/19 Range/Units 03:57 03:57 04:27 WBC 15.2 H (3.8-10.6) k/uL RBC 3.35 L (4.30-5.90) m/uL Hgb 10.3 L (13.0-17.5) gm/dL Hct 34.1 L (39.0-53.0) % MCV 101.6 H (80.0-100.0) fL MCHC 30.4 L (31.0-37.0) g/dL BUN 36 H (9-20) mg/dL POC Glucose (mg/dL) 111 H (75-99) mg/dL 12/01/19 12/01/19 12/01/19 Range/Units 07:54 11:34 14:32 WBC (3.8-10.6) k/uL RBC (4.30-5.90) m/uL Hgb (13.0-17.5) gm/dL Hct (39.0-53.0) % MCV (80.0-100.0) fL MCHC (31.0-37.0) g/dL BUN (9-20) mg/dL POC Glucose (mg/dL) 163 H 231 H 143 H (75-99) mg/dL Microbiology - Last 24 Hours (Table) 11/29/19 15:01 Blood Culture - Preliminary Blood No Growth after 24 hours Assessment and Plan Plan: -Coronary artery disease and non-ST elevation myocardial infarction status post CABG 5 vessel -status post permanent pacemaker placement due to Persistant Bradycardia. Status post AICD and pacemaker placement -bilateral pleural effusions status post bilateral chest tube placement of the left and right -Altered mental status most likely secondary to toxic and metabolic encephalopathy. Probable subacute stroke involving multiple patchy areas in the left MCA vascular territory. neurology evaluated pt. Patient confusion resolved -New onset atrial fibrillation and RVR; remains rate controlled on amiodarone. Patient is presently sinus rhythm -Type 2 diabetes; continue with Levemir 20 units subcu daily at bedtime; monitor Accu-Cheks every before meals and at bedtime with insulin sliding scale. Adding Januvia as mentioned above -Peripheral vessel occlusive disease with prior peripheral stent placement. -Moderate severe COPD FEV1 of 60%; not in exacerbation; continue with bronchodilator nebulizer treatment and home inhaler therapy. -Acute kidney injury and acute shock liver secondary to hypotension, improved -Diarrhea: C. diff was ordered patient was started on oral vancomycin -CODE STATUS; full code
[2019-12-01 16:32] LABS: Glucose,Whole Blood 151 mg/dL (75-99)
--- NOTE | 2019-12-01 16:55 | XR ---
EXAMINATION TYPE: XR chest 1V portable DATE OF EXAM: 12/01/2019 COMPARISON: Today HISTORY: Follow-up pneumothorax TECHNIQUE: Single view FINDINGS: There is a right-sided pneumothorax approximately 15%. Trachea is midline. There is no hear t failure. There is minimal subsegmental atelectasis right lower lobe. There is left axillary pacemak er. There are sternal wires. IMPRESSION: Small right-sided pneumothorax appears new compared to exam this morning at 6:00 AM. Atel ectasis unchanged.
[2019-12-01 20:14] LABS: Glucose,Whole Blood 168 mg/dL (75-99)
--- NOTE | 2019-12-01 21:51 | PN ---
PROGRESS NOTE DATE OF SERVICE: 12/01/2019 REASON FOR FOLLOWUP: Leukocytosis, diarrhea and a question of C difficile. INTERVAL HISTORY: The patient is currently afebrile. The patient is breathing comfortably on room air. Denies having any chest pain or cough. No abdominal pain. Diarrhea has improved. Fecal management system is out. PHYSICAL EXAMINATION: Blood pressure 106/58 with a pulse of 75, temperature 98.1. He is 97% on room air. General description is an elderly male lying in bed in no distress. RESPIRATORY SYSTEM: Unlabored breathing with decreased breath sounds at the base. No wheeze. HEART: S1, S2. Regular rate and rhythm. ABDOMEN: Soft. No tenderness. LABS: White count is elevated at 15,000 today. The blood cultures obtained on 11/29/2019 are negative so far. DIAGNOSTIC IMPRESSION AND PLAN: Patient with leukocytosis which is multifactorial in this patient with evidence of pneumothorax on the x-ray; could be more likely inflammatory, with no evidence of any pneumonia or urinary tract infection. Diarrhea improved with vancomycin and Questran; to continue. Will repeat CBC and CRP tomorrow and adjust medication further if any further worsening of the white count or if the patient has a new fever. MMODL / IJN: [id number] /
[2019-12-02] MEDS: VANCOMYCIN ORAL SOLUTION 250 MG/5 ML BOTTLE PO SCH ×3 (05:15→18:13)
[2019-12-02 06:02] LABS: HCT 35.7 % (39.0-53.0); HGB 11.1 gm/dL (13.0-17.5); Hypochromasia Marked; MCH 31.2 pg (25.0-35.0); MCHC 31.3 g/dL (31.0-37.0); MCV 99.9 fL (80.0-100.0); Macrocytosis Slight; Mean Platelet Volume 7.6; Platelet Count 421 k/uL (150-450); RBC 3.57 m/uL (4.30-5.90); RDW 14.9 % (11.5-15.5); WBC 10.6 k/uL (3.8-10.6)
[2019-12-02 06:09] LABS: African American GFR (CKD) >90 (>60 ml/min/1.73 sqM); Anion Gap 8 mmol/L; Blood Urea Nitrogen 30 mg/dL (9-20); C Reactive Protein 11.5 mg/L (<10.0); Calcium 9.4 mg/dL (8.4-10.2); Carbon Dioxide 23 mmol/L (22-30); Chloride 109 mmol/L (98-107); Glucose 97 mg/dL (74-99); Non-African American GFR(CKD) 84 (>60 ml/min/1.73 sqM); Potassium 4.3 mmol/L (3.5-5.1); Sodium 140 mmol/L (137-145)
--- NOTE | 2019-12-02 06:18 | P.CONS ---
History of Present Illness - Chief Complaint Recent onset confusion - History of Present Illness I had the opportunity to see patient for inpatient rehab consultation with regard to recent onset confusion. Patient admitted to [facility] November 06 history of recent non-STEMI appeared admitted for underwent elective CABG performed November 07, Dr. Hewitt. Was seen by Dr. Crenshaw for medical, Dr. Malin for ICU care and Dr. Diza. Chest x-ray demonstrated small right pneumothorax and atelectasis. PT reports two-person maximal assistance bed mobility. OT reports two-person total assistance for upper and lower dressing, bathing, toileting and functional mobility. Previous functional history as elicited from patient: Right-handed, , lives in apartment with . States works. States does the cooking and laundry. States he is independent with driving. This of course is in question due to patient's severe confusion. Review of Systems Review of systems: As elicited from chart and exam of patient ENT: Denies sneezes or discharge. Eyes: Denies discharge or photophobia. Cardiac: Denies chest pain or palpitation. Pulmonary: Denies cough or shortness of breath. Gastrointestinal: Denies nausea, emesis, constipation, diarrhea. Genitourinary: Denies discharge or frequency. Musculoskeletal: Denies muscle or bone aches. Neurologic: Confusion. Lower extremity weakness. Endocrine: Denies shakes or sweats. Oncology: Denies cancers. Dermatologic: Denies rash, itching, pruritus. ALLERGY/immunology: Denies sneezes, rashes. Past Medical History Past Medical History: Coronary Artery Disease (CAD), Cancer, Chest Pain / An carrie, Diabetes Mellitus, Hypertension, Myocardial Infarction ([place]), Skin Disorder Additional Past Medical History / Comment(s): Intermittent BILATERAL CLAUDICATION & NEW OCCURRENCE OF LEFT PLANTAR FASCITIS (DIFFICULT TO WALK). Hx of bladder ca with surgery, psoriases,eczema, hiatal hernia, umbilical hernia, kidney stones 2004. Last Myocardial Infarction Date:: 2015 History of Any Multi-Drug Resistant Organisms: None Reported Past Surgical History: Heart Catheterization With Stent Additional Past Surgical History / Comment(s): 10/20/15 last CARDIAC STENT-has had several previous cardiac stents, vasectomy, bladder sx x2 to remove tumors. L femoral artherectomy/STENT TO LT common ILIAC artery, 05/22/16 R femoral/popliteal atherectomy with PTBA/stent, angiograms, aortogram with run off. Past Anesthesia/Blood Transfusion Reactions: No Reported Reaction Additional Past Anesthesia/Blood Transfusion Reaction / Comm: CLAUSTROPHOBIC IN LARGE CROWDS Date of Last Stent Placement:: 10/20/15 Past Psychological History: No Psychological Hx Reported - Past Family History Father Family Medical History: Myocardial Infarction ([place]) Additional Family Medical History / Comment(s): PT'S DAD WHEN PT WAS AGE 4 he believes from a myocardial infarction. Mother Family Medical History: Diabetes Mellitus, Hyperlipidemia, Hypertension, Vascular Disorder Medications and Allergies Home Medications Medication Instructions Recorded Confirmed Type Cholecalciferol [Vitamin D3 (25 1,000 unit PO DAILY #0 11/01/19 11/07/19 History Mcg = 1000 Iu)] Multivitamins, Thera [Multivitamin 1 tab PO DAILY 11/01/19 11/07/19 History (formulary)] Phytonadione (Vit K1) [Vitamin K-1] 100 mcg PO DAILY #0 11/01/19 11/07/19 History Turmeric Root Extract [Turmeric] 500 mg PO DAILY #0 11/01/19 11/07/19 History Aspirin 81 mg PO DAILY #30 chew 11/04/19 11/07/19 Rx Atorvastatin [Lipitor] 80 mg PO DAILY #30 tab 11/04/19 11/07/19 Rx Isosorbide Mononitrate ER [Imdur] 30 mg PO DAILY #30 tab.er.24h 11/04/19 11/07/19 Rx Metoprolol Tartrate [Lopressor] 25 mg PO BID #60 tab 11/04/19 11/07/19 Rx Nitroglycerin Sl Tabs [Nitrostat] 0.4 mg SUBLINGUAL Q5M PRN #30 tab 11/04/19 11/07/19 Rx metFORMIN HCL ER [Glucophage Xr] 500 mg PO BID #60 tab 11/04/19 11/07/19 Rx Ascorbic Acid [Vitamin C] 500 mg PO DAILY 11/05/19 11/07/19 History Cinnamon Bark [Cinnamon] 500 mg PO DAILY 11/05/19 11/07/19 History Carol Brasher Supplement 1 tab PO DAILY 11/05/19 11/07/19 History Milk Thistle 150 mg PO DAILY 11/05/19 11/07/19 History Saw B[place] 500 mg PO DAILY 11/07/19 11/07/19 History Allergies Allergy/AdvReac Type Severity Reaction Status Date / Time ragweed pollen Allergy Unknown Verified 11/07/19 08:45 Physical Exam Vitals: Vital Signs Temp Pulse Pulse Resp BP BP Pulse Ox 12/02/19 04:00 98 F 75 15 99/58 96 12/01/19 23:34 97.3 F L 79 16 125/59 95 12/01/19 19:45 97.9 F 85 15 128/44 97 12/01/19 18:48 76 16 12/01/19 18:39 78 16 12/01/19 16:00 98.1 F 75 17 106/50 95 12/01/19 15:25 78 16 12/01/19 15:12 73 16 12/01/19 15:00 74 17 114/43 96 12/01/19 14:00 81 16 114/53 97 12/01/19 13:04 75 12/01/19 13:00 68 17 137/56 96 12/01/19 12:52 69 12/01/19 12:00 98.2 F 73 13 127/73 96 12/01/19 11:00 81 18 123/78 95 12/01/19 10:00 81 16 150/79 97 12/01/19 09:09 84 12/01/19 09:00 86 16 138/77 97 12/01/19 08:58 81 12/01/19 08:00 98.1 F 78 20 144/69 96 12/01/19 07:00 74 18 118/68 96 Intake and Output 12/01/19 12/01/19 12/02/19 14:59 22:59 06:59 Intake Total 120 240 Output Total 730 0 Balance -730 120 240 Intake: Oral 120 240 Output: Urine 730 0 Other: Voiding Method Indwelling Catheter Urinal Urinal Incontinent Incontinent # Voids 1 Weight 72.2 kg Skin: Good color, texture, turgor. General: Medium build and comfortable appearance. Head: Normocephalic, atraumatic. Eyes: Symmetric. Pupils equal round. Ears: Symmetric. Hearing within normal limits. Mouth: Clear. Neck: Supple. Carotid without bruit. Cardiac: Regular rate and rhythm. Lungs: Clear anteriorly and posteriorly. Abdomen: Soft active nontender. Extremities: Normal tone. Neurological: Mental status: Confused and cooperative is able. Cranial nerves: Symmetric facial tone and trapezius. Motor: Moves arms to noxious stimulus, moves legs poorly to noxious stimulus. Sensation: See above. DTRs: Symmetric and equal throughout. Mobility: Requires two-person assist for bed mobility. Results CBC & Chem 7: 12/02/19 05:39 12/02/19 05:39 Labs: Abnormal Lab Results - Last 24 Hours (Table) 12/01/19 12/01/19 12/01/19 Range/Units 07:54 11:34 14:32 RBC (4.30-5.90) m/uL Hgb (13.0-17.5) gm/dL Hct (39.0-53.0) % Chloride (98-107) mmol/L BUN (9-20) mg/dL POC Glucose (mg/dL) 163 H 231 H 143 H (75-99) mg/dL C-Reactive Protein (<10.0) mg/L 12/01/19 12/01/19 12/02/19 Range/Units 16:31 20:13 05:39 RBC 3.57 L (4.30-5.90) m/uL Hgb 11.1 L (13.0-17.5) gm/dL Hct 35.7 L (39.0-53.0) % Chloride (98-107) mmol/L BUN (9-20) mg/dL POC Glucose (mg/dL) 151 H 168 H (75-99) mg/dL C-Reactive Protein (<10.0) mg/L 12/02/19 Range/Units 05:39 RBC (4.30-5.90) m/uL Hgb (13.0-17.5) gm/dL Hct (39.0-53.0) % Chloride 109 H (98-107) mmol/L BUN 30 H (9-20) mg/dL POC Glucose (mg/dL) (75-99) mg/dL C-Reactive Protein 11.5 H (<10.0) mg/L Microbiology - Last 24 Hours (Table) 11/29/19 15:01 Blood Culture - Preliminary Blood No Growth after 48 hours Assessment and Plan (1) NSTEMI (non-ST elevated myocardial infarction) Current Visit: Yes Status: Acute Code(s): I21.4 - NON-ST ELEVATION (NSTEMI) MYOCARDIAL INFARCTION SNOMED Code(s): 74335600 Plan: Impression: 1. Medical debility. 2. Recent non-STEMI with CABG. 3. Recent onset confusion. 4. Hypertension. 5. Diabetes. 6. History of cancer. Comments and plan: At this time PT and OT are ongoing. I have added speech therapy. Rehab prognosis guarded in currently not a rehab candidate.
[2019-12-02 06:29] LABS: Glucose,Whole Blood 114 mg/dL (75-99)
[2019-12-02] MEDS: INSULIN DETEMIR (LEVEMIR) 100 UNIT/ML SYR SQ SCH (06:31)
[2019-12-02] MEDS: INSULIN ASPART (NovoLOG) 100 UNIT/ML VIAL SQ SCH ×4 (06:32→20:56)
[2019-12-02] MEDS: PANTOPRAZOLE 40 MG TABLET PO SCH (06:32)
[2019-12-02] MEDS: CHOLESTYRAMINE (WITH SUGAR) 4 GM PACKET PO SCH ×4 (06:32→20:55)
[2019-12-02] MEDS ORDERED: QUEtiapine 25 MG TAB PO PRN (06:32)
[2019-12-02] MEDS: LACTOBACILLUS ACIDOPH & BULGAR 1 EACH PACKET PO SCH ×3 (06:32→18:09)
[2019-12-02] MEDS: ASCORBIC ACID 500 MG TAB PO SCH ×2 (06:32→18:09)
[2019-12-02 06:34] LABS: Eosinophils # (M) 2.12 k/uL (0-0.7); Lymphocytes # (M) 1.38 k/uL (1.0-4.8); Monocytes # (M) 0.74 k/uL (0-1.0); Neutrophils # (M) 6.36 k/uL (1.3-7.7); Neutrophils % (M) 60 %; Nucleated Red Blood Cells 0 /100 WBC (0-0); Total Cells Counted 100
--- NOTE | 2019-12-02 07:39 | P.PN ---
Subjective Progress Note Date: 12/02/19 Principal diagnosis: Symptomatic multivessel coronary artery disease, unstable angina, status post subendocardial myocardial infarction. Previous medical history of CAD with previous stent placement to the proximal circumflex and ostial OM1, hypertension, hyperlipidemia, chronic ongoing tobacco dependence, mild COPD with preoperative FEV1 60% of predicted, right internal carotid artery stenosis 50- 69%, peripheral arterial disease with previous arthrectomy and YARN HANDLER of the left SFA, atherectomy and YARN HANDLER of the left TIP INSERTER, with stenting of the left BRIAN, poorly controlled type 2 diabetes with preoperative hemoglobin A1c 9.1%, bladder cancer status post chemo and radiation, occasional marijuana use, medication noncompliance, and family history of premature coronary artery disease POD #24 CABG 5 with RG to the LAD, left radial artery to the obtuse marginal, reverse saphenous vein to the posterior lateral, sequential saphenous vein to the first and second diagonal performed on cardiopulmonary bypass with beating heart. Endoscopic vein harvest of the left greater saphenous vein from the ankle to the groin. Endoscopic harvest of the left radial artery. Epi-aortic ultrasound and ligation of left atrial appendage with 40 mm AtriCure clip Postoperative acute blood loss anemia, expected outcome given cardiopulmonary bypass and hemodilution Postoperative encephalopathy, unexpected but potential outcome given cardiopulmonary bypass and intraoperative cardiac arrest Postoperative new onset paroxysmal Afib with RVR, unexpected Postoperative acute hypoxemic respiratory failure requiring reintubation, secondary to metabolic acidosis and hypotension. Postoperative stage II pressure ulcer on coccyx, unexpected Postoperative bradycardia, unexpected POD #7 Medtronic dual-chamber permanent pacemaker implantation, axillary venography The patient was seen and examined in the intensive care unit this morning. He is laying in bed in no acute distress. He is alert and awake, he moves all extremities and follows commands but is still confused, oriented to person and place but doesn't know the year, remains calm. Remains on oral vancomycin per infectious disease. He has been able to tolerate oral intake without difficulty. All lines and tubes have been discontinued, WBC down to 10.6, all cultures continue to be negative. Was supposed to go to [facility] yesterday, however they refused to admit the patient. Dr. Jc consulted for IPR, not appropriate. Will try for [place] today. Objective - Vital Signs Vital signs: Vital Signs Temp 98 F 12/02/19 04:00 Pulse 75 12/02/19 04:00 Resp 15 12/02/19 04:00 BP 99/58 12/02/19 04:00 Pulse Ox 96 12/02/19 04:00 Intake & Output 12/01/19 12/02/19 12/02/19 18:59 06:59 18:59 Intake Total 360 Output Total 730 Balance -730 360 Weight 72.2 kg Intake: Oral 360 Output: Urine 730 Other: Voiding Method Urinal Urinal Incontinent Incontinent # Voids 1 ABP, PAP, CO, CI - Last Documented Arterial Blood Pressure 155/55 Pulmonary Artery Pressure 30/17 Cardiac Output 4.5 Cardiac Index 2.3 - Constitutional General appearance: Present: cooperative, no acute distress - Respiratory Details: Lungs sounds diminished bilaterally. Respirations even, nonlabored. Currently on room air with oxygen saturation 96%. Able to achieve 2250 mL on his incenti ve spirometry. - Cardiovascular Details: S1, S2 present. Regular rate and rhythm, sinus rhythm on telemetry. Sternum stable. Palpable peripheral pulses bilaterally, no edema present. Heart hugger, antiembolism stockings, SCDs present. - Gastrointestinal Gastrointestinal Comment(s): Abdomen soft, nontender, nondistended. Active bowel sounds present 4 quadrants. Fecal management system discontinued yesterday, no further diarrhea. Tolerating diet - Genitourinary Genitourinary Comment(s): Newman discontinued yesterday, patient has voided but has been incontinent, PVR minimal. - Integumentary Integumentary Comment(s): Skin is warm and dry with evidence of good perfusion. Anterior chest incision well approximated and covered with dry intact dressing. Left lower extremity EVH site well approximated without drainage or redness. Left radial artery harvest site dry and intact without redness or drainage, good cap refill. Stage II pressure ulcer/excoriation present to coccyx area. Left chest wall pacer site well approx, dressing dry and intact - Neurologic Neurologic: Present: CNII-XII intact - Musculoskeletal Musculoskeletal: Present: generalized weakness, strength equal bilaterally - Psychiatric Psychiatric Comment(s): Alert, oriented to person and place, doesn't know the year. Follows commands. - Allied health notes Allied health notes reviewed: nursing - Labs CBC & Chem 7: 12/02/19 05:39 12/02/19 05:39 Labs: Abnormal Lab Results - Last 24 Hours (Table) 08/09/1412/01/19 12/01/19 Range/Units 07:54 11:34 14:32 RBC (4.30-5.90) m/uL Hgb (13.0-17.5) gm/dL Hct (39.0-53.0) % Eosinophils # (Manual) (0-0.7) k/uL Chloride (98-107) mmol/L BUN (9-20) mg/dL POC Glucose (mg/dL) 163 H 231 H 143 H (75-99) mg/dL C-Reactive Protein (<10.0) mg/L 12/01/19 12/01/19 12/02/19 Range/Units 16:31 20:13 05:39 RBC 3.57 L (4.30-5.90) m/uL Hgb 11.1 L (13.0-17.5) gm/dL Hct 35.7 L (39.0-53.0) % Eosinophils # (Manual) 2.12 H (0-0.7) k/uL Chloride (98-107) mmol/L BUN (9-20) mg/dL POC Glucose (mg/dL) 151 H 168 H (75-99) mg/dL C-Reactive Protein (<10.0) mg/L 12/02/19 12/02/19 Range/Units 05:39 06:28 RBC (4.30-5.90) m/uL Hgb (13.0-17.5) gm/dL Hct (39.0-53.0) % Eosinophils # (Manual) (0-0.7) k/uL Chloride 109 H (98-107) mmol/L BUN 30 H (9-20) mg/dL POC Glucose (mg/dL) 114 H (75-99) mg/dL C-Reactive Protein 11.5 H (<10.0) mg/L Microbiology - Last 24 Hours (Table) 11/29/19 15:01 Blood Culture - Preliminary Blood No Growth after 48 hours - Imaging and Cardiology Chest x-ray: report reviewed, image reviewed Assessment and Plan Assessment: 1. Symptomatic multivessel coronary artery disease, recent non-STEMI, status post 5 vessel CABG 2. Leukocytosis, maybe multifactoral, resolved. Blood, sputum, urine cultures negative to date. 3. Previous stent placement to the proximal circumflex and ostial OM1 4. History of hypertension 5. History of hyperlipidemia 6. Chronic ongoing tobacco dependence 7. Mild COPD, preoperative FEV1 60% of predicted value 8. Right internal carotid artery stenosis 50-69%. 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 9. History of peripheral arterial disease with previous arthrectomy and YARN HANDLER of the left SFA and atherectomy and YARN HANDLER of the left TIP INSERTER with stenting of the left BRIAN 10. Poorly controlled diabetes mellitus type 2 with hyperglycemia, admission hemoglobin A1c 9.1% 11. History of bladder cancer status post radiation, chemotherapy treatment and bladder surgery 12. Occasional marijuana use 13. Medication noncompliance 14. Family history of early onset coronary artery disease 15. Postoperative acute blood loss anemia, expected 16. Postoperative encephalopathy, unexpected, no definitive stroke (symptomatology attributed to encephalopathy, hypotention, intraoperative events; left atrial appendage was clipped and TTE demonstrated no embolic source; no focal deficits; patient's ability to move/participate has been selective; no change from first CT to second, no definite acute timing of changes in brain images, may be pre-operative; neurology unable to definitively say patient had acute stroke) 17. Mild ISAAC, resolved 18. Afib with RVR, status post left atrial appendage ligation, currently Sinus Rhythm 19. Hematuria, resolved, likely from patient pulling at newman catheter 20. Postoperative acute hypoxic respiratory failure requiring reintubation, secondary to metabolic acidosis and hypotension 21. Elevated transaminase levels, shock liver, secondary to hypotension 22. New stage II pressure ulcer/excoriation, coccyx 23. Postoperative bilateral pleural effusions, status post bilateral pleural chest tube placement 24. Postoperative bradycardia, status post Medtronic dual-chamber pacemaker Plan: 1. Continue aspirin, Plavix, statin, beta gaurav, Cozaar. Will increase beta gaurav therapy as tolerated. 2. Continue amiodorone for atrial fibrillation prophylaxis, stop 12/06/19. No anticoagulation necessary 3. Continue calcium channel gaurav for radial artery prophylaxis. Please do not discontinue without discussing was cardiac surgery 4. Silvadene cream to be applied to coccyx twice a day. Turn minimum every 2 hours. 5. Bronchodilators per pulmonology. Encourage incentive spirometry use 6. Will monitor daily labs and chest x-rays. Elective replacement per protocol. 7. Pain management per current medication regimen 8. GI/DVT prophylaxis. 9. Insulin management per primary care service. 10. Continue lasix 40 mg by mouth daily 11. Reorient as necessary. Continue to assess mental status 12. Continue oral vancomycin per infectious disease, currently day #12. 13. Transfer orders placed for 3S, may transfer when bed available 14. Patient will need rehab at discharge. Will discharge to [facility] when accepted 15. More recommendations to follow Time with Patient: Greater than 30
[2019-12-02] MEDS: IPRATROPIUM-ALBUTEROL 3 ML NEB INHALATION SCH ×4 (07:44→19:45)
--- NOTE | 2019-12-02 07:54 | P.PN ---
Subjective Progress Note Date: 12/02/19 Principal diagnosis: Coronary artery disease and status post CABG This is a 64-year-old gentleman with coronary artery disease and prior coronary artery stenting as well as hypertension and dyslipidemia and history of smoking and COPD who underwent CABG and this is postoperative patient the #24. The patient was seen today, December [id number]. He is doing good from a cardiovascular standpoint of view. He has been maintaining normal sinus mechanism. Also he is in with dynamic is stable. From a cardiovascular standpoint of view, the patient can be discharged into an extended-care facility Objective - Vital Signs Vital signs: Vital Signs Temp 98 F 12/02/19 04:00 Pulse 73 12/02/19 07:46 Resp 15 12/02/19 04:00 BP 99/58 12/02/19 04:00 Pulse Ox 96 12/02/19 04:00 Intake & Output 12/01/19 12/02/19 12/02/19 18:59 06:59 18:59 Intake Total 360 Output Total 730 Balance -730 360 Weight 72.2 kg Intake: Oral 360 Output: Urine 730 Other: Voiding Method Urinal Urinal Incontinent Incontinent # Voids 1 ABP, PAP, CO, CI - Last Documented Arterial Blood Pressure 155/55 Pulmonary Artery Pressure 30/17 Cardiac Output 4.5 Cardiac Index 2.3 - Constitutional General appearance: Present: no acute distress - Respiratory Respiratory: bilateral: diminished - Cardiovascular Rhythm: regular Heart sounds: normal: S1, S2 - Labs CBC & Chem 7: 12/02/19 05:39 12/02/19 05:39 Labs: Abnormal Lab Results - Last 24 Hours (Table) 12/01/19 12/01/19 12/01/19 Range/Units 07:54 11:34 14:32 RBC (4.30-5.90) m/uL Hgb (13.0-17.5) gm/dL Hct (39.0-53.0) % Eosinophils # (Manual) (0-0.7) k/uL Chloride (98-107) mmol/L BUN (9-20) mg/dL POC Glucose (mg/dL) 163 H 231 H 143 H (75-99) mg/dL C-Reactive Protein (<10.0) mg/L 12/01/19 12/01/19 12/02/19 Range/Units 16:31 20:13 05:39 RBC 3.57 L (4.30-5.90) m/uL Hgb 11.1 L (13.0-17.5) gm/dL Hct 35.7 L (39.0-53.0) % Eosinophils # (Manual) 2.12 H (0-0.7) k/uL Chloride (98-107) mmol/L BUN (9-20) mg/dL POC Glucose (mg/dL) 151 H 168 H (75-99) mg/dL C-Reactive Protein (<10.0) mg/L 12/02/19 12/02/19 Range/Units 05:39 06:28 RBC (4.30-5.90) m/uL Hgb (13.0-17.5) gm/dL Hct (39.0-53.0) % Eosinophils # (Manual) (0-0.7) k/uL Chloride 109 H (98-107) mmol/L BUN 30 H (9-20) mg/dL POC Glucose (mg/dL) 114 H (75-99) mg/dL C-Reactive Protein 11.5 H (<10.0) mg/L Microbiology - Last 24 Hours (Table) 11/29/19 15:01 Blood Culture - Preliminary Blood No Growth after 48 hours Assessment and Plan Assessment: Assessment #1 coronary artery disease and status post CABG #2 bradycardia status post permanent pacemaker #3 multiple comorbid condition #4 change in mental status Plan #1 continue the current medical regimen #2 the patient is going to be discharged
[2019-12-02] MEDS: HEPARIN SODIUM,PORCINE 5,000 UNIT/ML 1 ML VIAL SQ SCH ×2 (09:19→18:09)
[2019-12-02] MEDS: METOPROLOL TARTRATE 50 MG TAB PO SCH ×2 (09:19→20:54)
[2019-12-02] MEDS: ASPIRIN 325 MG TAB PO SCH (09:19)
[2019-12-02] MEDS: LINAGLIPTIN 5 MG TABLET PO SCH (09:19)
[2019-12-02] MEDS: FUROSEMIDE 40 MG TAB PO SCH (09:19)
[2019-12-02] MEDS: LOSARTAN 25 MG TAB PO SCH (09:19)
[2019-12-02] MEDS: CLOPIDOGREL 75 MG TAB PO SCH (09:19)
[2019-12-02] MEDS: ATORVASTATIN 40 MG TAB PO SCH (09:19)
[2019-12-02] MEDS: AMIODARONE 200 MG TAB PO SCH (09:19)
--- NOTE | 2019-12-02 09:50 | XR ---
EXAMINATION TYPE: XR chest 1V portable DATE OF EXAM: 12/02/2019 COMPARISON: 12/01/2019 HISTORY: Follow-up pneumothorax TECHNIQUE: Single frontal view of the chest is obtained. FINDINGS: There is a right apical pneumothorax measuring approximately 5-10%. Subsegmental changes b ilaterally. No pleural effusion. Postoperative change. The heart appears within normal limits. Cardia c device noted. IMPRESSION: 1. Small right apical pneumothorax measuring 5-10% is slightly improved relative to the prior exam. 2. Subsegmental areas of consolidation may been the basis of atelectasis rather than pneumonitis yenny elate clinically.
[2019-12-02 10:14] VITALS: BMI 21.6
[2019-12-02 12:28] LABS: Glucose,Whole Blood 196 mg/dL (75-99)
--- NOTE | 2019-12-02 12:32 | P.PN ---
Subjective Progress Note Date: 12/02/19 12/02/2019 the patient is postop day #24 following five-vessel bypass surgery for an underlying severe coronary artery disease and the patient is postop day #7 following a pacemaker insertion and this is a dual-chamber pacemaker. He also had bilateral chest tubes. Most of the chest is of minimal and the patient has some residual right-sided pneumothorax in the order of 10%. No respiratory distress. He seems a much more interactive and awake on today's evaluation. In fact he is feeding himself and is swallowing well without any major difficulties. No reported aspiration. No cough or sputum production. No cardiac arrhythmias. He is weak. We are looking into transferring this patient to rehab center. The patient is using incentive spirometer pulling approximately 2500. Cardiac rhythm is sinus. Objective - Vital Signs Vital signs: Vital Signs Temp 98 F 12/02/19 04:00 Pulse 73 12/02/19 11:31 Resp 15 12/02/19 04:00 BP 99/58 12/02/19 04:00 Pulse Ox 96 12/02/19 04:00 Intake & Output 12/01/19 12/02/19 12/02/19 18:59 06:59 18:59 Intake Total 360 Output Total 730 Balance -730 360 Weight 72.2 kg 72.2 kg Intake: Oral 360 Output: Urine 730 Other: Voiding Method Urinal Urinal Incontinent Incontinent # Voids 1 ABP, PAP, CO, CI - Last Documented Arterial Blood Pressure 155/55 Pulmonary Artery Pressure 30/17 Cardiac Output 4.5 Cardiac Index 2.3 - Exam - Constitutional General appearance: Present: cooperative, no acute distress - EENT Eyes: Present: PERRLA ENT: Present: hearing grossly normal - Respiratory Details: Lung sounds clear bilaterally, diminished in the bases. Respirations equal and nonlabored. Oxygen saturation is 97% on room air. - Cardiovascular Details: S1, S2 present. Regular rate and rhythm. Normal sinus rhythm, rate 84 on the school lunch monitor. Palpable peripheral pulses bilaterally, no edema present. Heart hugger, antiembolism stockings, SCDs present. - Gastrointestinal Gastrointestinal Comment(s): Abdomen soft, nontender, nondistended. Active bowel sounds present 4 quadrants. Tolerating diet. - Genitourinary Genitourinary Comment(s): Junior catheter in place. Clear, yellow urine. 1370 ml urine out in 24 hours, averaging 30-50 ml/hr. - Integumentary Integumentary Comment(s): Skin is warm and dry with evidence of good perfusion. Anterior chest incision well approximated and covered with dry intact dressing. Left lower extremity EVH site well approximated without drainage or redness. Left radial artery harvest site dry and intact without redness or drainage, good cap refill. Stage II pressure ulcer present to coccyx area. Left chest wall pacer site well approx, dressing dry and intact - Neurologic Neurologic: Present: CNII-XII intact - Musculoskeletal Musculoskeletal: Present: generalized weakness, strength equal bilaterally - Psychiatric Psychiatric Comment(s): Alert, oriented to person only. Follows commands selectively. - Allied health notes Allied health notes reviewed: nursing - Labs CBC & Chem 7: 12/02/19 05:39 12/02/19 05:39 Labs: Abnormal Lab Results - Last 24 Hours (Table) 12/01/19 12/01/19 12/01/19 Range/Units 14:32 16:31 20:13 RBC (4.30-5.90) m/uL Hgb (13.0-17.5) gm/dL Hct (39.0-53.0) % Eosinophils # (Manual) (0-0.7) k/uL Chloride (98-107) mmol/L BUN (9-20) mg/dL POC Glucose (mg/dL) 143 H 151 H 168 H (75-99) mg/dL C-Reactive Protein (<10.0) mg/L 12/02/19 12/02/19 12/02/19 Range/Units 05:39 05:39 06:28 RBC 3.57 L (4.30-5.90) m/uL Hgb 11.1 L (13.0-17.5) gm/dL Hct 35.7 L (39.0-53.0) % Eosinophils # (Manual) 2.12 H (0-0.7) k/uL Chloride 109 H (98-107) mmol/L BUN 30 H (9-20) mg/dL POC Glucose (mg/dL) 114 H (75-99) mg/dL C-Reactive Protein 11.5 H (<10.0) mg/L Microbiology - Last 24 Hours (Table) 11/29/19 15:01 Blood Culture - Preliminary Blood No Growth after 48 hours Assessment and Plan Plan: 1 coronary artery disease without stable angina and non-STEMI. The patient underwent five-vessel bypass surgery. CABG 5 with GR to LAD, left radial artery to obtuse marginal, saphenous vein to posterior lateral, sequential saphenous vein to first and second diagonal performed on cardiopulmonary bypass with beating heart. Epi-aortic ultrasound and ligation of left atrial appendage with Ben clip. The patient is postop day #24 2 post thoracotomy with a tiny right residual right-sided pneumothorax. 3 altered mental status, with episodic confusion. The patient also has some speech deficits. No focal neurological deficit. He has global weakness and neurology has been on the case. I realize that the patient's mental status gradually improving and he is becoming more cohesive. 4 COPD with an FEV1 of 60% of predicted at baseline 5 symptomatic bradycardia post dual-chamber pacemaker insertion and the patient is postop day #7. The patient also did develop some postoperative atrial fibrillation and is post left atrial appendage ligation 6 Peripheral vascular disease with prior peripheral stent placements 7 Right carotid artery stenosis at 50-69% 7 History of marijuana use 8 Diabetes mellitus, type II, insulin drip for blood sugar control 9 History of bladder cancer status post radiation/chemotherapy and subsequent s urgery 10 History of noncompliance 11 acute kidney injury , recovered 12 history of marijuana smoking 13 history of drug noncompliance 14 stage II pressure ulcer involving the coccyx 15 generalized weakness 16 diarrhea, consider C. diff colitis Plan Monitor right-sided pneumothorax and this has remained stable post chest tube removal. Incentive spirometer Continue vancomycin oral regarding the diarrhea Cardiac medications are all up-to-date Patient seems to be much more interactive and alert on today's evaluation He is still weak and the patient is being transferred to rehabilitation once the final clearance is obtained We'll continue to follow
[2019-12-02] MEDS: DILTIAZEM CD 120 MG CAP.ER.24H PO SCH (14:03)
--- NOTE | 2019-12-02 16:18 | P.PN ---
Subjective 64-year-old male was recently discharged from the hospital came back in with the chest pain pressure-like sensation lasted for a few hours . Patient found to have Coronary artery disease and non-ST elevation myocardial infarction status post CABG 5 vessel on 11/07. He is also with A. fib and RVR and bradycardia, Also status post pacemaker placement. on follow-up currently remains in the ICU . He is awake, he looks somewhat confused and he does not answer my question common family at bedside says that the way he is. However no weakness is noted in the extremities. Patient looks comfortable and not in distress or pain. Mostly his decreased mentation is a due to multiple subacute stroke and he L-MCA territory He is hemodynamically stable and afebrile. WBC is slightly elevated at 15.8 K,Hemoglobin is 10.2k and platelets normal at 508. Creatinine 1.0 and other electrolytes are normal, sugars controlled currently however it was low this morning at 56. his 20 units of Levemir is lowered to 15 units and switched from at bedtime to daily Remains on IV Lasix 40 mg twice daily (for bilateral pleural effusion fluid overload ) and oral vancomycin His been evaluated by and followed closely by several consultants including CTS, cardiology team, pulmonary/critical care, infectious disease and neurology services 11/30/2019 Patient is clinically doing well at this time blood sugars are very well controlled at this time. Patient probably will be started on long-acting insulin along with either metformin or Januvia upon discharge. 12/01/2019 Patient is awaiting discharged to subacute rehabilitation. Patient's insulin regimen is being changed to this to long-acting insulin increasing the dose of long-acting insulin patient will be started on Januvia discontinue pre-meal insulin continue with pre-meal sliding scale insulin. Patient has increasing infiltrate in the right lower lung gruber which is probably atelectasis pul kitchen assistant following the patient. 12/02/2019 Patient blood sugars are fairly controlled on present regimen and patient can be discharged on the same regimen Constitutional: Denied any fatigue denied any fever. Cardio vascular: denied any chest pain, palpitations Gastrointestinal denied any nausea vomiting Pulmonary: Denied any shortness of breath cough Neurologic denied any new focal deficits All inpatient medications were reviewed and appropriate changes in these medications as dictated in the interval history and assessment and plan. Objective - Vital Signs Vital signs: Vital Signs Temp 98 F 08/06/20 04:00 Pulse 84 12/02/19 12:00 Resp 19 12/02/19 12:00 BP 127/79 12/02/19 12:00 Pulse Ox 95 12/02/19 12:00 Intake & Output 12/01/19 12/02/19 12/02/19 18:59 06:59 18:59 Intake Total 360 250 Output Total 730 0 Balance -730 360 250 Weight 72.2 kg 72.2 kg Intake: Oral 360 250 Output: Urine 730 0 Other: Voiding Method Urinal Urinal Urinal Incontinent Incontinent Incontinent # Voids 1 1 ABP, PAP, CO, CI - Last Documented Arterial Blood Pressure 155/55 Pulmonary Artery Pressure 30/17 Cardiac Output 4.5 Cardiac Index 2.3 - Exam PHYSICAL EXAMINATION: GENERAL: The patient is alert and oriented x3, not in any acute distress. Well developed, well nourished. HEENT: Pupils are round and equally reacting to light. EOMI. No scleral icterus. No conjunctival pallor. Normocephalic, atraumatic. No pharyngeal erythema. No thyromegaly. CARDIOVASCULAR: S1 and S2 present. No murmurs, rubs, or gallops. PULMONARY: Chest is clear to auscultation, no wheezing or crackles. ABDOMEN: Soft, nontender, nondistended, normoactive bowel sounds. No palpable organomegaly. MUSCULOSKELETAL: No joint swelling or deformity. EXTREMITIES: No cyanosis, clubbing, or pedal edema. NEUROLOGICAL: Gross neurological examination did not reveal any focal deficits. SKIN: No rashes. - Labs CBC & Chem 7: 12/02/19 05:39 12/02/19 05:39 Labs: Abnormal Lab Results - Last 24 Hours (Table) 12/01/19 12/01/19 12/02/19 Range/Units 16:31 20:13 05:39 RBC 3.57 L (4.30-5.90) m/uL Hgb 11.1 L (13.0-17.5) gm/dL Hct 35.7 L (39.0-53.0) % Eosinophils # (Manual) 2.12 H (0-0.7) k/uL Chloride (98-107) mmol/L BUN (9-20) mg/dL POC Glucose (mg/dL) 151 H 168 H (75-99) mg/dL C-Reactive Protein (<10.0) mg/L 12/02/19 12/02/19 12/02/19 Range/Units 05:39 06:28 12:26 RBC (4.30-5.90) m/uL Hgb (13.0-17.5) gm/dL Hct (39.0-53.0) % Eosinophils # (Manual) (0-0.7) k/uL Chloride 109 H (98-107) mmol/L BUN 30 H (9-20) mg/dL POC Glucose (mg/dL) 114 H 196 H (75-99) mg/dL C-Reactive Protein 11.5 H (<10.0) mg/L Microbiology - Last 24 Hours (Table) 11/29/19 15:01 Blood Culture - Preliminary Blood No Growth after 48 hours Assessment and Plan Plan: -Coronary artery disease and non-ST elevation myocardial infarction status post CABG 5 vessel -status post permanent pacemaker placement due to Persistant Bradycardia. Status post AICD and pacemaker placement -bilateral pleural effusions status post bilateral chest tube placement of the left and right -Altered mental status most likely secondary to toxic and metabolic encephalopathy. Probable subacute stroke involving multiple patchy areas in the left MCA vascular territory. neurology evaluated pt. Patient confusion resolved -New onset atrial fibrillation and RVR; remains rate controlled on amiodarone. Patient is presently sinus rhythm -Type 2 diabetes; continue with Levemir 20 units subcu daily at bedtime; monitor Accu-Cheks every before meals and at bedtime with insulin sliding scale. Adding Januvia as mentioned above -Peripheral vessel occlusive disease with prior peripheral stent placement. -Moderate severe COPD FEV1 of 60%; not in exacerbation; continue with bronchod ilator nebulizer treatment and home inhaler therapy. -Acute kidney injury and acute shock liver secondary to hypotension, improved -Diarrhea: C. diff was ordered patient was started on oral vancomycin -CODE STATUS; full code
[2019-12-02 16:57] LABS: Glucose,Whole Blood 156 mg/dL (75-99)
[2019-12-02 20:56] LABS: Glucose,Whole Blood 104 mg/dL (75-99)
--- NOTE | 2019-12-02 22:29 | PN ---
PROGRESS NOTE DATE OF SERVICE: 12/02/2019 REASON FOR FOLLOWUP: Diarrhea and a question of C difficile. INTERVAL HISTORY: Patient is currently afebrile. The patient is breathing comfortably. Denies having any chest pain. No shortness of breath or cough. No nausea, vomiting. No abdominal pain. Diarrhea has slowed down. PHYSICAL EXAMINATION: Blood pressure 135/79 with a pulse of 72, temperature 97.8. He is 99% on 2 L nasal cannula. General description is an elderly male lying in bed in no distress. Respiratory system: Unlabored breathing, clear to auscultation anteriorly. Heart S1, S2. Regular rate and rhythm. Abdomen soft, no tenderness. LABS: Hemoglobin 11.1, white count 10.6, BUN of 30, creatinine 0.5. Blood, urine and sputum has been negative. DIAGNOSTIC IMPRESSION AND PLAN: Patient with leukocytosis, multifactorial with diarrhea possible the patient will finish a 2 week course of oral Vanco and discontinue. Use Questran as needed. Continue supportive care. MMODL / IJN: [id number] /
[2019-12-03] MEDS: HEPARIN SODIUM,PORCINE 5,000 UNIT/ML 1 ML VIAL SQ SCH ×2 (00:12→08:20)
[2019-12-03 06:24] LABS: HCT 35.5 % (39.0-53.0); Hypochromasia Marked; MCH 30.9 pg (25.0-35.0); MCHC 30.8 g/dL (31.0-37.0); MCV 100.1 fL (80.0-100.0); Macrocytosis Slight; Mean Platelet Volume 7.3; Platelet Count 398 k/uL (150-450); RBC 3.55 m/uL (4.30-5.90); RDW 14.6 % (11.5-15.5); WBC 11.5 k/uL (3.8-10.6)
[2019-12-03] MEDS: PANTOPRAZOLE 40 MG TABLET PO SCH (06:24)
[2019-12-03] MEDS: LACTOBACILLUS ACIDOPH & BULGAR 1 EACH PACKET PO SCH ×2 (06:24→12:47)
[2019-12-03] MEDS: CHOLESTYRAMINE (WITH SUGAR) 4 GM PACKET PO SCH ×2 (06:24→12:47)
[2019-12-03] MEDS: ASCORBIC ACID 500 MG TAB PO SCH (06:24)
[2019-12-03 06:32] LABS: African American GFR (CKD) >90 (>60 ml/min/1.73 sqM); Anion Gap 7 mmol/L; Blood Urea Nitrogen 25 mg/dL (9-20); Carbon Dioxide 24 mmol/L (22-30); Chloride 109 mmol/L (98-107); Glucose 98 mg/dL (74-99); Non-African American GFR(CKD) 82 (>60 ml/min/1.73 sqM); Potassium 4.7 mmol/L (3.5-5.1); Sodium 140 mmol/L (137-145)
[2019-12-03 06:52] LABS: Glucose,Whole Blood 128 mg/dL (75-99)
[2019-12-03] MEDS: INSULIN ASPART (NovoLOG) 100 UNIT/ML VIAL SQ SCH ×2 (07:31→12:48)
[2019-12-03] MEDS: ATORVASTATIN 40 MG TAB PO SCH (08:19)
[2019-12-03] MEDS: AMIODARONE 200 MG TAB PO SCH (08:19)
[2019-12-03] MEDS: ASPIRIN 325 MG TAB PO SCH (08:19)
[2019-12-03] MEDS: FUROSEMIDE 40 MG TAB PO SCH (08:19)
[2019-12-03] MEDS: METOPROLOL TARTRATE 50 MG TAB PO SCH (08:20)
[2019-12-03] MEDS: LOSARTAN 25 MG TAB PO SCH (08:20)
[2019-12-03] MEDS: IPRATROPIUM-ALBUTEROL 3 ML NEB INHALATION SCH ×3 (08:20→15:03)
[2019-12-03] MEDS: CLOPIDOGREL 75 MG TAB PO SCH (08:20)
[2019-12-03] MEDS: LINAGLIPTIN 5 MG TABLET PO SCH (08:20)
[2019-12-03] MEDS: INSULIN DETEMIR (LEVEMIR) 100 UNIT/ML SYR SQ SCH (08:21)
--- NOTE | 2019-12-03 08:24 | XR ---
EXAMINATION TYPE: XR chest 1V portable DATE OF EXAM: 12/03/2019 CLINICAL HISTORY: Pneumothorax TECHNIQUE: Portable upright view of the chest obtained COMPARISON: 12/02/2019 chest radiograph FINDINGS: Sternotomy wires, left-sided pacemaker, left atrial appendage clip redemonstrated. The car diomediastinal silhouette is within normal limits for size. No pleural effusion. Unchanged small righ t apical pneumothorax. IMPRESSION: Unchanged small right apical pneumothorax versus 12/02/2019.
--- NOTE | 2019-12-03 10:54 | P.PN ---
Subjective Progress Note Date: 12/03/19 Principal diagnosis: Symptomatic multivessel coronary artery disease, unstable angina, status post subendocardial myocardial infarction. Previous medical history of CAD with previous stent placement to the proximal circumflex and ostial OM1, hypertension, hyperlipidemia, chronic ongoing tobacco dependence, mild COPD with preoperative FEV1 60% of predicted, right internal carotid artery stenosis 50- 69%, peripheral arterial disease with previous arthrectomy and IMAGE SCIENTIST of the left SFA, atherectomy and IMAGE SCIENTIST of the left LOCKS INSPECTOR, with stenting of the left BRIAN, poorly controlled type 2 diabetes with preoperative hemoglobin A1c 9.1%, bladder cancer status post chemo and radiation, occasional marijuana use, medication noncompliance, and family history of premature coronary artery disease POD #25 CABG 5 with GR to the LAD, left radial artery to the obtuse marginal, reverse saphenous vein to the posterior lateral, sequential saphenous vein to the first and second diagonal performed on cardiopulmonary bypass with beating heart. Endoscopic vein harvest of the left greater saphenous vein from the ankle to the groin. Endoscopic harvest of the left radial artery. Epi-aortic ultrasound and ligation of left atrial appendage with 40 mm AtriCure clip Postoperative acute blood loss anemia, expected outcome given cardiopulmonary bypass and hemodilution Postoperative encephalopathy, unexpected but potential outcome given cardiopulmonary bypass and intraoperative cardiac arrest Postoperative new onset paroxysmal Afib with RVR, unexpected Postoperative acute hypoxemic respiratory failure requiring reintubation, secondary to metabolic acidosis and hypotension. Postoperative stage II pressure ulcer on coccyx, unexpected Postoperative bradycardia, unexpected POD #8 Medtronic dual-chamber permanent pacemaker implantation, axillary venography The patient was seen and examined in cardiac stepdown. He is laying in bed in no acute distress. He is alert and awake, he moves all extremities and follows commands but is still confused, oriented to person and place but doesn't know the year, remains calm. Remains on oral vancomycin per infectious disease. He has been able to tolerate oral intake without difficulty and is able to feed himself. All lines and tubes have been discontinued, WBC 11.5 today up slightly from yesterday, all cultures continue to be negative. Not appropriate for IPR and will try for [employer] today, waiting for insurance approval. Objective - Vital Signs Vital signs: Vital Signs Temp 97.9 F 12/03/19 04:00 Pulse 87 12/03/19 04:00 Resp 16 12/03/19 04:00 BP 134/67 12/03/19 04:00 Pulse Ox 99 12/03/19 04:00 Intake & Output 12/02/19 12/03/19 12/03/19 18:59 06:59 18:59 Intake Total 450 Output Total 0 1000 Balance 450 -1000 Weight 72.2 kg 73.5 kg Intake: Oral 450 Output: Urine 0 Stool 1000 Other: Voiding Method Urinal Urinal Incontinent Incontinent # Voids 1 ABP, PAP, CO, CI - Last Documented Arterial Blood Pressure 155/55 Pulmonary Artery Pressure 30/17 Cardiac Output 4.5 Cardiac Index 2.3 - Constitutional General appearance: Present: cooperative, no acute distress - EENT Eyes: Present: PERRLA - Respiratory Details: Lungs sounds diminished bilaterally. Respirations even, nonlabored. Currently on room air with oxygen saturation 96%. Able to achieve 2000 mL on his incentive spirometry. - Cardiovascular Details: S1, S2 present. Regular rate and rhythm, sinus rhythm on telemetry. Sternum stable. Palpable peripheral pulses bilaterally, no edema present. Heart hugger, antiembolism stockings, SCDs present. - Gastrointestinal Gastrointestinal Comment(s): Abdomen soft, nontender, nondistended. Active bowel sounds present 4 qu adrants. No further diarrhea. Tolerating diet - Genitourinary Genitourinary Comment(s): Patient is voiding but has been incontinent. - Integumentary Integumentary Comment(s): Skin is warm and dry with evidence of good perfusion. Anterior chest incision well approximated and covered with dry intact dressing. Left lower extremity EVH site well approximated without drainage or redness. Left radial artery harvest site dry and intact without redness or drainage, good cap refill. Stage II pressure ulcer/excoriation present to coccyx area. Left chest wall pacer site well approx, dressing dry and intact - Neurologic Neurologic: Present: CNII-XII intact - Musculoskeletal Musculoskeletal: Present: gait normal, strength equal bilaterally - Psychiatric Psychiatric: Present: A&O x's 3 - Allied health notes Allied health notes reviewed: nursing - Labs CBC & Chem 7: 12/03/19 06:07 12/03/19 06:07 Labs: Abnormal Lab Results - Last 24 Hours (Table) 12/02/19 12/02/19 12/02/19 Range/Units 12:26 16:56 20:54 WBC (3.8-10.6) k/uL RBC (4.30-5.90) m/uL Hgb (13.0-17.5) gm/dL Hct (39.0-53.0) % MCV (80.0-100.0) fL MCHC (31.0-37.0) g/dL Chloride (98-107) mmol/L BUN (9-20) mg/dL POC Glucose (mg/dL) 196 H 156 H 104 H (75-99) mg/dL 12/03/19 12/03/19 12/03/19 Range/Units 06:07 06:07 06:51 WBC 11.5 H (3.8-10.6) k/uL RBC 3.55 L (4.30-5.90) m/uL Hgb 11.0 L (13.0-17.5) gm/dL Hct 35.5 L (39.0-53.0) % MCV 100.1 H (80.0-100.0) fL MCHC 30.8 L (31.0-37.0) g/dL Chloride 109 H (98-107) mmol/L BUN 25 H (9-20) mg/dL POC Glucose (mg/dL) 128 H (75-99) mg/dL Microbiology - Last 24 Hours (Table) 11/29/19 15:01 Blood Culture - Preliminary Blood No Growth after 72 hours - Imaging and Cardiology Chest x-ray: image reviewed Assessment and Plan Assessment: 1. Symptomatic multivessel coronary artery disease, recent non-STEMI, status post 5 vessel CABG 2. Leukocytosis, maybe multifactoral, resolved. Blood, sputum, urine cultures negative to date. 3. Previous stent placement to the proximal circumflex and ostial OM1 4. History of hypertension 5. History of hyperlipidemia 6. Chronic ongoing tobacco dependence 7. Mild COPD, preoperative FEV1 60% of predicted value 8. Right internal carotid artery stenosis 50-69%. 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 9. History of peripheral arterial disease with previous arthrectomy and IMAGE SCIENTIST of the left SFA and atherectomy and IMAGE SCIENTIST of the left LOCKS INSPECTOR with stenting of the left BRIAN 10. Poorly controlled diabetes mellitus type 2 with hyperglycemia, admission hemoglobin A1c 9.1% 11. History of bladder cancer status post radiation, chemotherapy treatment and bladder surgery 12. Occasional marijuana use 13. Medication noncompliance 14. Family history of early onset coronary artery disease 15. Postoperative acute blood loss anemia, expected 16. Postoperative encephalopathy, unexpected, no definitive stroke (symptomatology attributed to encephalopathy, hypotention, intraoperative events; left atrial appendage was clipped and TTE demonstrated no embolic source ; no focal deficits; patient's ability to move/participate has been selective; no change from first CT to second, no definite acute timing of changes in brain images, may be pre-operative; neurology unable to definitively say patient had acute stroke) 17. Mild ISAAC, resolved 18. Afib with RVR, status post left atrial appendage ligation, currently Sinus Rhythm 19. Hematuria, resolved, likely from patient pulling at newman catheter 20. Postoperative acute hypoxic respiratory failure requiring reintubation, secondary to metabolic acidosis and hypotension 21. Elevated transaminase levels, shock liver, secondary to hypotension 22. New stage II pressure ulcer/excoriation, coccyx 23. Postoperative bilateral pleural effusions, status post bilateral pleural chest tube placement 24. Postoperative bradycardia, status post Medtronic dual-chamber pacemaker Plan: 1. Continue aspirin, Plavix, statin, beta gaurav, Cozaar. 2. Continue amiodorone for atrial fibrillation prophylaxis, stop 12/06/19. No anticoagulation necessary 3. Continue calcium channel gaurav for radial artery prophylaxis. Please do not discontinue without discussing was cardiac surgery 4. Silvadene cream to be applied to coccyx twice a day. Turn minimum every 2 hours. 5. Bronchodilators per pulmonology. Encourage incentive spirometry use 6. Will monitor daily labs and chest x-rays. Elective replacement per protocol. 7. Pain management per current medication regimen 8. GI/DVT prophylaxis. 9. Insulin management per primary care service. 10. Continue lasix 40 mg by mouth daily 11. Reorient as necessary. Continue to assess mental status 12. Patient will need rehab at discharge. Will discharge to [facility] when accepted 13. More recommendations to follow Time with Patient: Greater than 30
--- NOTE | 2019-12-03 11:38 | P.DS ---
Providers Date of admission: 11/07/19 07:36 Expected date of discharge: 12/03/19 Attending physician: Sunday Hewitt Consults: 11/07/19 07:36 Consult Physician Stat Consulting Provider: Angelito Ragsdale Consult Reason/Comments: ICU management Do you want consulting provider notified?: Already Contacted Consult Physician Urgent Consulting Provider: Sunday Hewitt Consult Reason/Comments: Triple-vessel disease, CHF Do you want consulting provider notified?: Already Contacted Consult Physician Urgent Consulting Provider: Radha Alvarez Consult Reason/Comments: CAD, CHF Do you want consulting provider notified?: Yes 11/07/19 10:55 Consult to Anesthesia Routine Consulting Provider: Anesthesia,Services Consult Reason/Comments: Cardiac Surgery Pre-Op 11/12/19 10:15 Consult Physician Routine Consulting Provider: Zara Crenshaw Consult Reason/Comments: Medical Management Do you want consulting provider notified?: Already Contacted 11/12/19 14:34 Consult Physician Stat Consulting Provider: Lamont Stewart Consult Reason/Comments: metabolic acidosis Do you want consulting provider notified?: Already Contacted 11/15/19 08:07 Consult Physician Routine Consulting Provider: Mila Diaz Consult Reason/Comments: Elevated WBC count Do you want consulting provider notified?: Yes 11/17/19 13:33 Consult Physician Routine Consulting Provider: Alba Omer Consult Reason/Comments: altered mental status, possible CVA Do you want consulting provider notified?: Yes 12/01/19 09:56 Consult Physician Routine Consulting Provider: Abdiaziz Jc Consult Reason/Comments: inpatient rehab Do you want consulting provider notified?: Yes Primary care physician: Leonila Partida [facility] Course: FINAL DIAGNOSIS: 1. Symptomatic multivessel coronary artery disease, unstable angina, status post subendocardial myocardial infarction 2. Leukocytosis, multifactorial. Blood, sputum, urine cultures negative 3. History of coronary artery disease with previous stent placement to the proximal circumflex and ostial OM1 4. History of hypertension 5. History of hyperlipidemia 6. Chronic ongoing tobacco dependence 7. Mild COPD, preoperative FEV1 60% of predicted value 8. Right internal carotid artery stenosis 50-69%, history of left basal lacunar infarct 9. History of peripheral arterial disease with previous arthrectomy and ECONOMIC SPECIALIST of the left SFA, atherectomy and ECONOMIC SPECIALIST of the left SORORITY SUPERVISOR 10. Uncontrolled diabetes type 2 with hyperglycemia, admission hemoglobin A1c 9.1% 11. History of bladder cancer status post radiation, chemotherapy treatment, and bladder surgery 12. Occasional marijuana use 13. Medication noncompliance 14. Family history of early onset coronary artery disease 15. Postoperative acute blood loss anemia 16. Postoperative encephalopathy, no definitive stroke 17. Postoperative mild ISAAC 18. Postoperative A. fib with RVR 19. Postoperative hematuria 20. Postoperative acute hypoxic respiratory failure requiring reintubation secondary to metabolic acidosis and hypotension 21. Transaminitis, shock liver, secondary to hypotension 22. Stage II pressure ulcer/excoriation to coccyx 23. Postoperative bilateral pleural effusions and pneumothorax, status post bilateral chest tube placement 24. Postoperative bradycardia PRINCIPAL PROCEDURE: 1. Coronary artery bypass grafting 5 with left internal mammary artery to the left anterior descending artery, left radial artery to the obtuse marginal artery, reverse saphenous vein graft to posterior lateral branch, sequential saphenous vein to the first and second diagonal performed on cardiopulmonary bypass with beating heart 2. Endoscopic vein harvest of left greater saphenous vein from ankle to the groin 3. Endoscopic harvesting of the left radial artery 4. Epi-aortic ultrasound and ligation of left atrial appendage with 40 mm AtriCure clip 5. Placement of Medtronic dual-chamber permanent pacemaker with axillary venography HISTORY OF PRESENT ILLNESS: This is a 64-year-old gentleman who is followed on an outpatient basis by Dr. Keen. He was admitted to [facility] in October with chest pain and diagnosed with non-STEMI. Heart catheterization at that time demonstrated heavily calcified coronary artery disease. Dr. Hewitt from cardiothoracic surgery was consulted and the patient was recommended to have coronary artery bypass surgery, the usual perioperative course was discussed in detail with the patient and his family, all risks and benefits were explained, all questions were answered, and consent was obtained to proceed with surgery. Preoperative testing was completed. The patient was scheduled for surgery 11/08/2019, he did not wish to stay inpatient and was discharged home on aspirin, statin, beta gaurav, and Imdur with plans to return as an outpatient for elective surgery. Unfortunately once he was home he did experience severe chest pain and returned to the emergency room the day before surgery. In the ER he was found to be hypertensive and tachycardic which did resolve with treatment. He was admitted to the intensive care unit with consultation to cardiology, pulmonology, and cardiothoracic surgery. The patient was kept inpatient due to the nature of his disease process and plans for surgery the next morning. HOSPITAL COURSE: The patient was brought to the preoperative areaon 11/08/2019, prepared in the usual fashion, and subsequently taken to the operating room where Dr. Hewitt performed quintuple coronary artery bypass surgery. Upon completion of surgery the patient was transferred to the cardiovascular intensive care unit where he was recovered, monitored hemodynamically, and where he eventuallyprogressed to cardiac rehabilitation phase 1. He was extubated, all lines, tubes, and drips were discontinued when appropriate. The patient did have a kelli postoperative course with acute blood loss anemia requiring transfusion, metabolic encephalopathy without definitive acute stroke on computed tomography scan, A. fib with RVR requiring amiodarone initiation, confusion and hypotension along with hypoxemia requiring reintubation, shock liver secondary to hypotension, all of which have resolved as patient became normotensive. In addition he developed bilateral pleural effusions requiring chest tube placement and tachycardia requiring placement of permanent pacemaker. Due to his prolonged mechanical ventilation, hypotension, and multiple comorbidities the patient had generalized weakness requiring aggressive physical and occupational therapy. He continues to be confused but cooperative and getting better every day. He was eventually stable enough to be transferred to 3 cardiac stepdown unit for further monitoring and rehabilitation. His oxygen was titrated down, he continued to work with physical and occupational therapy, he was tolerating oral diet, his pain was controlled, and he was ready to be discharged to subacute rehab at [facility] on postoperative day #24, however he needed insurance authorization and bed placement at [facility]. Upon receiving authorization and placement, the patient is to be discharged to [facility] on postoperative day #25. He received written and verbal instruction regarding his medications, activity restrictions, signs and symptoms requiring physician notification, and follow-up appointments. COMPLICATIONS: The patient experienced multiple postoperative complications as listed above and which were treated accordingly. Patient Condition at Discharge: Stable Plan - Discharge Summary Discharge Rx Participant: Yes New Discharge Prescriptions: New Diltiazem Cd [Cardizem CD] 120 mg PO DAILY@1200 cap.er.24h Amiodarone [Cordarone] 200 mg PO DAILY tab Losartan [Cozaar] 25 mg PO DAILY tab Ipratropium-Albuterol Nebulize [Duoneb 0.5 mg-3 mg/3 ml Soln] 3 ml INHALATION RT-QID ml Ipratropium-Albuterol Nebulize [Duoneb 0.5 mg-3 mg/3 ml Soln] 3 ml INHALATION RT-Q2H PRN ml PRN Reason: Shortness Of Breath Or Wheezing Heparin Sodium,Porcine [Heparin Sodium] 5,000 unit SQ Q8HR vial Lactobacillus Acidoph & Bulgar [Lactinex] 1 each PO TID-W/MEALS packet Furosemide [Lasix] 40 mg PO DAILY tab Insulin Detemir (Levemir) [Levemir] 20 unit SQ DAILY@0700 syr Atorvastatin [Lipitor] 40 mg PO DAILY tab INSULIN ASPART (NovoLOG) [NovoLOG (formulary)] 0 unit SQ ACHS vial Clopidogrel [Plavix] 75 mg PO DAILY tab Pantoprazole [Protonix] 40 mg PO AC-BRKFST tablet. QUEtiapine [SEROquel] 12.5 mg PO DAILY PRN tab PRN Reason: Agitation SILVER sulfADIAZINE CREAM [Silvadene Cream] 1 applic TOPICAL BID applic Linagliptin [Tradjenta] 5 mg PO DAILY tablet Acetaminophen Tab [Tylenol] 1,000 mg PO Q6HR PRN tab PRN Reason: Fever And/ Or Pain Continue Cholecalciferol [Vitamin D3 (25 Mcg = 1000 Iu)] 1,000 unit PO DAILY #0 Multivitamins, Thera [Multivitamin (formulary)] 1 tab PO DAILY Aspirin 81 mg PO DAILY #30 chew Ascorbic Acid [Vitamin C] 500 mg PO DAILY Discontinued Turmeric Root Extract [Turmeric] 500 mg PO DAILY #0 Phytonadione (Vit K1) [Vitamin K-1] 100 mcg PO DAILY #0 metFORMIN HCL ER [Glucophage Xr] 500 mg PO BID #60 tab Isosorbide Mononitrate ER [Imdur] 30 mg PO DAILY #30 tab.er.24h Atorvastatin [Lipitor] 80 mg PO DAILY #30 tab Metoprolol Tartrate [Lopressor] 25 mg PO BID #60 tab Nitroglycerin Sl Tabs [Nitrostat] 0.4 mg SUBLINGUAL Q5M PRN #30 tab PRN Reason: Chest Pain Milk Thistle 150 mg PO DAILY Cinnamon Bark [Cinnamon] 500 mg PO DAILY Carol Brasher Supplement 1 tab PO DAILY Saw Obion 500 mg PO DAILY Discharge Medication List Cholecalciferol [Vitamin D3 (25 Mcg = 1000 Iu)] 1,000 unit PO DAILY #0 11/01/19 [History] Multivitamins, Thera [Multivitamin (formulary)] 1 tab PO DAILY 11/01/19 [History] Aspirin 81 mg PO DAILY #30 chew 11/04/19 [Rx] Ascorbic Acid [Vitamin C] 500 mg PO DAILY 11/05/19 [History] Acetaminophen Tab [Tylenol] 1,000 mg PO Q6HR PRN tab 12/03/19 [Rx] Amiodarone [Cordarone] 200 mg PO DAILY tab 12/03/19 [Rx] Atorvastatin [Lipitor] 40 mg PO DAILY tab 12/03/19 [Rx] Clopidogrel [Plavix] 75 mg PO DAILY tab 12/03/19 [Rx] Diltiazem Cd [Cardizem CD] 120 mg PO DAILY@1200 cap.er.24h 12/03/19 [Rx] Furosemide [Lasix] 40 mg PO DAILY tab 12/03/19 [Rx] Heparin Sodium,Porcine [Heparin Sodium] 5,000 unit SQ Q8HR vial 12/03/19 [Rx] INSULIN ASPART (NovoLOG) [NovoLOG (formulary)] 0 unit SQ ACHS vial 12/03/19 [Rx] Insulin Detemir (Levemir) [Levemir] 20 unit SQ DAILY@0700 syr 12/03/19 [Rx] Ipratropium-Albuterol Nebulize [Duoneb 0.5 mg-3 mg/3 ml Soln] 3 ml INHALATION RT-Q2H PRN ml 12/03/19 [Rx] Ipratropium-Albuterol Nebulize [Duoneb 0.5 mg-3 mg/3 ml Soln] 3 ml INHALATION RT-QID ml 12/03/19 [Rx] Lactobacillus Acidoph & Bulgar [Lactinex] 1 each PO TID-W/MEALS packet 12/03/19 [Rx] Linagliptin [Tradjenta] 5 mg PO DAILY tablet 12/03/19 [Rx] Losartan [Cozaar] 25 mg PO DAILY tab 12/03/19 [Rx] Pantoprazole [Protonix] 40 mg PO AC-BRKFST tablet. 12/03/19 [Rx] QUEtiapine [SEROquel] 12.5 mg PO DAILY PRN tab 12/03/19 [Rx] SILVER sulfADIAZINE CREAM [Silvadene Cream] 1 applic TOPICAL BID applic 12/03/19 [Rx] Follow up Appointment(s)/Referral(s): Sunday Hewitt MD [STAFF PHYSICIAN] - 12/23/19 9:30 am Rehab Rafaela PH,Cardiac [NON-STAFF] - 4 Weeks (You will receive a phone call in 4-6 weeks for evaluation for Cardiac Rehab) Angelito Ragsdale DO [Doctor of Osteopathic Medicine] - 2 Weeks (Please call for appointment upon discharge from [facility]) Helga Keen MD [Primary Care Provider] - 2 Weeks (Please call for appointment upon discharge from [facility]) Junior Rubio MD [STAFF PHYSICIAN] - 2 Weeks (Office will call with appointment) Activity/Diet/Wound Care/Special Instructions: DISCHARGE INSTRUCTIONS: 1. No driving for 4 weeks, or until physician gives their ok. 2. The patient should sleep in their own bed, no medical bed needed. 3. Stairs are not an issue. If the bedroom is upstairs, it is advised that the patient go up at night and down in the morning for the first week. Go slowly, using handrail and take 1 step at a time. 4. ELSIE hose are to be worn for 30 days or until physician discontinues. 5. Heart hugger is to be worn 100% of the time until physician discontinues.(except when showering) 6. No lifting, pushing, or pulling more than 10 pounds for 12 weeks. The physician will advise of any restriction changes. 7. The patient is expected to continue the prescribed walking program. 8. Continue pain control per as needed orders. 9. Continue with incentive spirometry and splinting/heart hugger until otherwise directed by the physician. 10. Must shower daily using liquid antibacterial soap and a separate white washcloth for each individual incision. 11. Routine sternal incision care. No powders, lotions, ointments on incisions. No dressings are necessary on incisions unless they are draining. Dermabond tape is to remain on sternal incision until surgeon follow-up. 12. Please call surgeon/ELECTRIC TOOL REPAIRER for temp greater than 101 F or purulent drainage from incisions. 13. A Red armband has been placed on the patient. It should be worn for 30 days post surgery and will be removed by the cardiac surgeons. If an ER visit is necessary, please make sure the number on the Red armband is called. 14. You have been referred to and are expected to begin Cardiac Rehab in approximately 4-6 weeks. REHAB/HOME HEALTH SERVICES TO PROVIDE: RN SKILLED HOME CARE SERVICES FOR POST-OP SURGICAL PATIENTS WITH THE FOLLOWING: Coronary Artery Bypass Surgery (CABG), Mitral Valve Replacement/Repair ( MVR), Aortic Valve Replacement/Repair (AVR) RN TO CONTINUE EDUCATION FROM ``ROAD TO A HEALTH HEART PATIENT EDUCATION MANUAL (GIVEN TO PATIENT IN THE HOSPITAL) MEDICATION RECONCILIATION WITH EDUCATION NEEDED ON FIRST HOME VISIT EMPHASIZE IMPORTANCE OF WEARING BREAST SUPPORT/HEART HUGGER ENCOURAGE USE OF INCENTIVE SPIROMETER 10 X EVERY HOUR WHILE AWAKE ENCOURAGE UTILIZATION OF LOWER EXTREMITY COMPRESSION STOCKINGS/ELSIE HOSE and ELEVATE LEGS ABOVE LEVEL OF HEART WHILE AT REST. ENCOURAGE AMBULATION 3-5x/day INCREASING TOLERATES, WHILE AVOIDING EXTREMES IN TEMPERATURE HOME CARE ONCE DISCHARGED FROM REHAB: FREQUENCY: RN TO OPEN THE PATIENT WITHIN 24 HOURS OF DISCHARGE FROM REHAB WITH TELEHEALTH INSTALLED AT [facility] [place], RN TO VISIT 2-3 X A WEEK FOR 4 WEEKS ESTABLISHED BY PATIENT NEEDS. LABORATORY: CBC, CMP TO BE DRAWN PER FACILITY PROTOCOL, FAX RESULTS TO [phone]. PARAMETERS TO CALL SURGEON: WEIGHT: NOTIFY MD OF WEIGHT GAIN OF 2 LBS IN 24 HOURS OR 5 LBS IN ONE WEEK HR: NOTIFY MD OF HR <55 BPM OR HR>100 BPM BP: NOTIFY MD IF BP <90/55 OR BP>140/100 O2 SAT: NOTIFY MD IF PO2<93% ON ROOM AIR For any questions or concerns please call nurse practitioner hospitalist Asha @ or Don @ Discharge Disposition: DC/TRNS INTERMEDIATE CARE FAC
[2019-12-03 11:56] LABS: Glucose,Whole Blood 142 mg/dL (75-99)
[2019-12-03] MEDS: DILTIAZEM CD 120 MG CAP.ER.24H PO SCH (12:47)
--- NOTE | 2019-12-03 13:04 | P.PN ---
Subjective Progress Note Date: 12/03/19 Principal diagnosis: Coronary artery disease with unstable angina, and non-ST segment elevation myocardial infarction, status post 5 vessel bypass grafting This is a 64-year-old male patient with coronary artery disease, noncompliant to medication. The patient came in with subendocardial infarction and cardiac catheterization showed diffuse coronary artery disease with critical stenosis. The patient underwent coronary artery bypass today. The patient underwent bypass 5 with GR to LAD, radial artery graft to acute marginal, saphenous finger after 2 posterior lateral and sick ration saphenous vein to first and second diagonal performed on cardiac pulmonary bypass with beating heart. Left atrial appendage was also added. The patient currently is in the intensive care unit. I centimeters in regards to the ICU. He was initially on a SIMV mode of ventilation at the rate of 12 with a tidal volume of 500 and FiO2 of 100% with a PEEP of 5 and a pressure support of 5. The blood gas showed a pH of 7.318 with a pCO2 of 49 and pO2 of 226. The chest x-ray postop showed volume overload with pulmonary vascular congestion and interstitial edema. The lines and tubes are all in good location. Based on all this, I increased the respiratory rate of 24. I do not FiO2 down to 60%. Current cardiac output is at 2.6 with an index of 5. The patient has 2 mediastinal 1 right pleural and 1 left pleural chest tube. Ultrasound of the sternal chest tubes has been around 150 mL since he arrived from the operating room. No evidence of any air leak. The patient is currently on a Cardizem drip and milrinone drip and the patient is on insulin drip for blood sugar control.he is well sedated. Is quite symptoms with the mechanical ventilator. Postoperative hemoglobin is at 8.2. Platelet count is down to 78. On today's evaluation of 11/09/2019, I'm seeing the patient for a follow-up. The patient was operated on yesterday and the patient underwent a five-vessel bypass surgery including a GR and the radial artery harvest. The patient was extubated within 6 hours and currently the patient is on oxygen by nasal cannula at 5 L. He is pleasantly confused this morning. He is able to sit up on a recliner. Hemodynamically, he did have some early of hypotension earlier this morning and for that reason the patient was given 750 mL of colloids and following that he was started on low-dose levo fed at 0.03 g per KG per minute. The patient remains on Primacor running at 0.125 g and the patient is also on Cardizem at 5 mg an hour. Insulin drip is running at 2.5 units an hour. Hemodynamically, the patient's cardiac output is at 4.2 with an index of 2.2. The pulmonary artery pressure 28/12. CVP is at 11. Cardiac output is at 4.2. He is in his normal sinus rhythm. He has a backup VVI at the rate of 50. His chest x-rays showing small bilateral apical pneumothoraces. All of the chest tubes are in good location. The right and left pleural chest tube connected and they have drained approximately 130 mL over the past 8 hours. He is tender tub es are also connected and it has drained approximately 140 mL over the past 8 hours. The patient otherwise has no specific complaints. Sternum stable clean and intact. He is producing urine output in the order of 20-30 mL an hour. No other significant events overnight. Hemoglobin stable at 7.9. The platelet count improved to 102. On 11/10/2019, the patient is postop day #2. The patient is confused. He is nonverbal. He is not answering questions and is not following any commands. Upon watching him, I felt that the left side of the body slightly cachectic compared to the right. Nevertheless, the same as the patient was not cheered by the nursing staff been observing this patient longer to me. He has no preferential gaze toseizure activity. No reported shortness of breath or res piratory distress at this point in time. Mediastinal chest tubes and the pleural chest tubes are all in place. The patient has an AV epicardial pacer wire grounded to generator. As of yesterday, the patient was taken off the pressors. The patient is currently off the levo fed and he is off the Primacor. The patient also had the ALYX drains removed from the left lower extremity and arm. No other significant issues for now. No cardiac arrhythmias. No nausea. No vomiting. No emesis. He is resting comfortably in bed. The patient's hemoglobin is at 7.0. Was a causative 4.7. Diminished pulmonary vascular congestion and infiltration of the right lung base. There is resolution of the previously described bilateral pneumothoraces. On today's evaluation of 11/11/2019, the patient remains confused. I was told that he was able to say some few words. I was also told by the nursing staff that the patient was witnessed EXTREMITIES WITHOUT ANY LIMITATION IN PATIENT HAVING ANY FOCAL NEUROLOGICAL DEFICIT. NOTE THAT THE PATIENT EARLIER THIS MORNING WITH ATRIAL FIBRILLATION WITH RAPID VENTRICULAR RESPONSE. HIS HEART RATE WENT UP TO 180 beats per minute without any significant hypotension. That point, the patient was given amiodarone boluses and the patient received a total of 3 boluses prior to my arrival. He was also given 5 mg of IV Lopressor. Her, bilateral, the patient was still in atrial fibrillation. He was trying to hurt at times he thought it was going down. His baseline rhythm was atrial fibrillation and heart rate was in the range of 100-120. The patient denied having any chest pain. Sternum was stable treatment intact. No reported fever or chills. The mediastinal chest 11 already been removed yesterday. The right and the left pleural chest tubes are still in place and output is being noted. Chest x-ray from this morning showed adequate expansion of both lungs without evidence of any pneumothorax. No evidence of any pulmonary edema. The patient was being given Lasix 20 mg IV push every 12 hours. Hemoglobin from this morning was down to 6.7 and the patient was ordered to get a unit of packed RBC. Currently is postoperative #3 post 5 vessel coronary artery bypass surgery. On 11/12/2019 patient seen in follow-up in the intensive care unit, he is very restless on today's exam, although nursing reports some improvement in his neurological status, and apparently patient is answering questions appropriately, and he knows he is in the hospital, and he is given verbal responses to questions. he is awake and alert, he is restless, but appears to be in no acute distress, he is moving his legs and arms bilaterally, squirming in bed. Does not appear to be in any respiratory distress. He is currently on 5 L of oxygen, with pulse ox of 100%, hemodynamically patient is stable, no fever or chills. Lactate of Ringer's infusing at a rate of 40 ML per hour. Today's chest x-ray has been reviewed showing increasing airspace opacity of the right upper lobe, similar prominent interstitial markings, no pneumothorax, no pleural effusions. Left pleural chest tube is in place, with a total output of 340 ML in the last 24 hours, right pleural chest tube put out 380 mL of serosanguineous thin output in the last 24 hours, media still chest tubes have been discontinued. Patient has produced 1.3 L and urine output in the last 24 hours. Junior catheter remains in place. Today's lab work has been reviewed, showing white blood cell count of 17.6, hemoglobin is 9.3, sodium of 138, potassium 3.8, chloride is 108, CO2 is 20, B1 is 39, creatinine is 1.17. She is in sinus arrhythmia with frequent PACs on the monitor, amiodarone drip has been switched to oral amiodarone 400 mg twice daily, patient is on oral Cardizem 30 mg every 6 hours, and oral metoprolol 50 mg twice daily. Blood cultures have shown no growth at the 24-hour elly. Patient has been afebrile. virtual assistant is at the bedside in view of confusion and agitation, Junior catheter still has hematuria, which is dark in color, yesterday's brain CT showed patchy. Ventricular and deep white matter changes, left greater than right which have progressed from 01/09/2019, and areas of subacute ischemia are not excluded, MRI can further evaluate, no acute intracranial hemorrhage or midline shift. On 11/17/2019 patient seen in follow-up in the intensive care unit, she is se dated, intubated, on mechanical ventilator, current vent settings are assist- control with a rate of 16, tidal and was 450, FiO2 is 40%, and PEEP of 5. This morning his blood gases reveal pO2 of 92, pCO2 34, pH is 7.47. Current IV drips include 0.9 normal saline at a rate of 5 ML per hour, and improving and is at 60 mics per kilo per minute, tube feedings are with vital high-protein at a rate of 54, with a goal of 54 with standard water flushes with 30 mL of water every 4 hours. Patient was given daily traction of sedation yesterday, he awoke, and reportedly follow commands, but quickly became very tachypneic and hypertensive and had to be placed back on mechanical ventilator. His chest x-ray shows stable findings, persistent central vascular congestion and bibasilar opacities. Small to moderate-sized bilateral pleural effusions, appear to be stable. Patient remains on IV Lasix at 40 mg every 12 hours, and he is very slightly negative, only 6 mL, however he did produced over 3 L in urine output in the last 24 hours. He is off the vasopressor support, his weight is stable, he does have some generalized edema involving his upper and lower extremities. Remains on empiric antibiotics in the form of cefepime and vancomycin. He is afebrile, his blood urine and sputum cultures have shown no growth thus far. Today's labs have been reviewed. His white blood cell is stable at 15, hemoglobin is 7.7, sodium is 136, the rest of electrolytes were within normal limits, B1 is 33, and creatinine is 1.04, his liver enzymes are coming down, AST is down to 130, ALT is 692, alk phos is fairly stable at 195, his pro-calcitonin level was elevated and 0.99, suggesting presence of bacterial infection. Patient has been afebrile, abdomen is soft, nontender, patient is tolerating tube feedings. His hematuria has cleared up. On 11/18/2019 patient seen in follow-up in the intensive care unit. Patient is still intubated, his sedation has been on hold since 7:00 this morning, patient is awake, he is following basic commands, squeezing with his left hand, however his right hand is flaccid, and patient is not able to squeeze with the right hand. His current vent settings are assist-control with a rate of 16, tidal volume is 450, FiO2 is 40%, and PEEP of 5. This is blood gases showed pO2 106, pCO2 35, and pH of 7.49. Currently on no drips other than 0.9 normal saline at a rate of KVO. Patient has been tolerating tube feedings. Yesterday we repeated his CT of the brain which showed no evidence of acute hemorrhage, areas of patchy low attenuation in the left parietal white matter previously noted on previous brain scan this could be on the basis of subacute ischemia. MRI of the brain was recommended, neurology consultation was requested and patient is suspected to have probable subacute stroke involving multiple patchy areas in the left MCA vascular territory consideration of cardioembolic source. Patient did have transient atrial fibrillation. Follow-up MRI and MRA of the brain will be done once the patient is extubated and is able to travel down to the MRI department. Today's chest x-ray shows diffuse bilateral pleural parenchymal changes, no pneumothorax. Consider pulmonary edema, or underlying pneumonia. So far blood and urine and sputum cultures remain negative. Patient is afebrile, hemodynamically he stable, empiric antibiotic coverage is with Zosyn, vancomycin has been discontinued, ID service is following. Patient is on IV Lasix at 40 mg every 12 hours. He has produced 2.7 L and urine output over last 24 hours, he is in -280 mL fluid balance. He seems to get slightly agitated at times, becomes hypertensive, today she is following commands, we will try to keep him off sedation, to fully assess his mentation and neurological status, we will repeat LFTs, and ammonia level. On 11/22/2019 patient seen in follow-up in the intensive care unit. To recap patient was admitted to the hospital on 11/07/2019, and he had his 5 vessel cor onary artery bypass grafting surgery and 11/08/2019 and patient was extubated on postoperative day 0 on 11/08/2019. In the postoperative period patient developed altered mental status worsening respiratory failure, symptomatic bradycardia and had to be emergently reintubated on 11/12/2019 and weaned and extubated on 11/19/2019. Patient is suspected to have sustained a subacute stroke involving multiple patchy areas in the left MCA distribution. He has not been able to travel to the MRI department for his follow-up MRI. Patient was weaned from the mechanical ventilator and extubated on 11/19/2019 last week however developed worsening hypoxia, pulmonary edema and had to be reintubated on 11/20/2019. Today she seen in the intensive care unit, sedated on 30 mics per kilo per minute of propofol infusion, and 0.9 normal seen at a rate of 10 ML per hour, he is intubated current vent settings are assist-control with a rate of 16, tidal line was 450, FiO2 is 50% and PEEP of 5, this was blood gases show pO2 of 123, pCO2 38 and pH of 7.51. His chest x-ray shows diffuse bilateral infiltrates and pleural effusion, sizable pneumothorax, interstitial pattern was noted. Patient remains on Lasix at 40 mg every 12 hours, diuresing, and he has made at 7.4 L in urine output in last 24 hours, and he is in -1.5 L net fluid balance over last 24 hours. He is receiving tube feedings with Glucerna 1.5 at a rate of 75 with a goal of 75 ML per hour. Afebrile and hemodynamically stable in the last 24 hours, not requiring any vasopressor support, today's labs have been reviewed showing limited cell count within normal limits at 9.9, hemoglobin is 7.0, electrolytes are within normal limits, BUN of 38, creatinine is 1.17, liver enzymes have steadily been improving, and AST is 93, ALT is 286, alkaline phosphatase was 199, his last ammonia level was back on the and was normal at less than 9. Blood sputum and urine cultures have shown no growth so far. Empiric and pneumatic coverage is with Zosyn and vancomycin On 11/23/2019 patient seen in follow-up in the intensive care unit, he opens eyes to verbal stimulation, he is following simple commands, he squeezing with his left hand, his right hand is quite weak, and almost flaccid. He is nodding his head appropriately to verbal questioning. Does not appear to be in any distress, yesterday we stopped his propofol infusion and put the patient on Precedex infusion which is currently infusing at a rate of 0.3 mics per kilo per hour. 0.9 normal saline at a rate of 20 ML, and he is tolerating his tube feedings of vital 1.2 at a rate of 70 with a goal of 70 with standard water flushes. His current vent settings are assist control with a rate of 16, tidal line is 450, FiO2 40% and PEEP of 5. Sometime in the last 24 hours patient has converted to sinus bradycardia, currently remains in sinus bradycardia with a rate of 54. Patient is currently being paced at AAI mode at a rate of 80 BPM. Hemodynamic patient stable, not on any pressors. Chest x-ray has been reviewed showing diffuse bilateral infiltrates and pleural effusions bilaterally, no sizable pneumothorax. Yesterday's ultrasound the chest showed a 4.8 cm pocket on the right and 3.2 cm pocket on the left. he remains on IV Lasix of 40 mg every 12 hours, and he is slightly positive net fluid balance, +111 mL over last 24 hours. He did however produced 3.2 L in urine output over the last 24 hours. He is on empiric antibiotics with Zosyn and oral vancomycin for possibility of C. diff, all his culture data has been negative thus far. Did have a low-grade fever this morning with a temp of 99.7F. Today's labs have been reviewed showing white blood cell count of 8.8, hemoglobin of 8.3, platelet count is 388, electrolytes are within normal limits, BUN is 39 creatinine is 1.21. His blood gas has been reviewed showing pO2 of 82, pCO2 of 36 and pH of 7.52. Dobbhoff tube is in place through which the patient is receiving tube feedings. lung sounds are clear, diminished at the bases, abdomen is soft, nontender. On 11/24/2019 patient seen in follow-up in intensive care unit, patient remains intubated, sedated on mechanical ventilator current settings are assist-control with a rate of 16, tidal line is 450, FiO2 is 40% and PEEP of 5. This morning blood gas was reviewed showing pO2 of 66, pCO2 36, and pH is 7.5. Patient is currently on Precedex at 0.2 mics per kilo per hour, this was cut back from this morning from 0.5 mics per kilo per hour, 0.9 normal saline at a rate of 10, no vasoactive drips. Patient is on Zosyn for empiric antibiotic coverage, all culture data including blood culture sputum and urine cultures have been negative. She did have a low-grade fever this morning with a temp of 100.3F. He is receiving tube feedings with the vital AF at a rate of 78 with a goal of 70 and standard water flushes. She has a Dobbhoff tube inserted through which she is receiving nutritional support. Yesterday patient tolerated some pressure support trials with pressure support of 10 and CPAP at 5, for several hours, however at 7:30 in the evening apparently patient went into A. fib with RVR, and possibly developed a mucous plug, out to worsening shortness of breath, and was placed back on assist control mode of ventilation. Patient had been on oral amiodarone and metoprolol, he had since converted back to sinus bradycardia, this morning he is paced at a rate of 80 BPM in the AAI mode of pacing, and his underlying rhythm is sinus bradycardia with a rate of 52 BPM. Today's chest x- ray has been reviewed showing bilateral patchy increased attenuation within the lungs. Patient remains on Zosyn for antibiotic coverage, sputum has shown no growth. Today's labs have been reviewed showing white blood cell count of 10.0, hemoglobin is 7.8, sodium is 142, potassium 3.8, chloride is 108, CO2 is 28, BUN of 38, and creatinine is 1.10. And is following simple commands, he is profoundly weak. We'll proceed with pressure-support trials again today. On 11/25/2019 patient seen in follow-up in the intensive care unit, he is awake and alert, he is following all commands, he is moving both upper and lower extremities, no unilateral weakness noted on today's exam, he is making eye contact, he is following command, he denies any acute distress, he remains intubated, he has been on pressure-support trials for the last 24 hours, he is done very well, tolerated them very well, no signs of agitation, he has been maintained on Precedex at 0.5 mics per kilo per hour, no other drips were IV fluids. No vasoactive drips. Tube feedings are currently off, she was receiving them with the vital AF at a rate of 70. Tube feedings are on hold for possibility of permanent pacemaker insertion. Patient still has AV wires in his chest connected to a permanent pacemaker and he is pacemaker dependent as the underlying rhythm is still bradycardic sinus mechanism with a rate of 40 BPM, last night apparently there was an issue with capturing and there is a concern that patient will need a permanent pacemaker, is a current pacemaker leads are developing some issues with capture. He is currently 100% paced at a rate of 70 at a mode of AAI. Blood pressure is stable. Lung sounds are clear, diminished at the bases, today's chest x-ray has been reviewed showing improved aeration, no sizable pneumothorax or pleural effusion. Dobbhoff tube ET tube and bilateral chest tubes remain in place. His right chest tube had 650 ML of thin serosanguineous output in last 24 hours, and left lateral chest tube had 830 mL of serosanguineous thin output in the last 24 hours, Junior catheter is in place, patient is producing good amount of urine, he remains on Lasix of 40 mg every 12 hours, he is in -2.4 L fluid balance over the last 24 hours. Today's labs have been reviewed showing limited cell count of 8.6, hemoglobin of 8.0, sodium is 142, potassium is 3.8, chloride is 110. Patient's blood gas was reviewed showing pO2 of 134, pCO2 of 38, and pH of 7.47, this was done on FiO2 of 40% on pressure-support of 10. On 11/26/2019 patient seen in follow-up in intensive care unit, it yesterday following his permanent pacemaker insertion procedure patient returned to the unit, he proceeded to wean on pressure-support trials, he did quite well, and was subsequently extubated. Today he is awake and alert, he is oriented to pers on and place, disoriented to time, he is following all commands, he is moving all 4 extremities, strength appears to be equal on bilateral sides, he is on 5 L the pulse ox of 97%, appears to be in no acute distress, is a paced rhythm on the monitor, he is status post permanent pacemaker insertion, his left upper chest incision is clean dry and intact, soft, no evidence of hematoma, with a surgical dressing, he is afebrile, hemodynamically patient is stable, he is not on any IV fluids. His chest x-ray has been reviewed showing mildly increased pulmonary vascular congestion. No evidence of any respiratory distress, lung sounds reveal clear breath sounds bilaterally. Following the extubation patient was given the bedside swallow evaluation which he successfully passed. Today's labs have been reviewed, showing white blood cell count of 8.7, hemoglobin of 8.0, platelet count is 357, sodium is 142, potassium 3.7, chloride is 110, B1 is 34, creatinine is 0.86. Blood, urine and sputum cultures are negative thus far. Continues on IV Lasix 40 mg every 12 hours he is in -1.5 L over last 24 hours. Right and left chest tubes remain in place, with 180 out of the left chest tube in the 180 out of the right chest above the last 24 hours no air leak. Apparently they will remain in place per CT surgery. FMS is in place, and patient continues to have liquid stool output, he continues on oral vancomycin for possibility of C. diff colitis. The patient is seen today 11/27/2019 in follow-up in the intensive care unit. He is currently sitting up in a chair at the bedside. Awake and alert in no acute distress. He is currently maintaining O2 saturations in the 90s on room air. No current IV fluids. Chest x-ray showing improvement in the pulmonary edema. Small right tiny effusion. Bilateral chest tubes remain in place. He is status post 4 units of packed red blood cells this admission. Current hemoglobin 8.9. White count 12.3. Sodium 134. Potassium 3.9. Creatinine 0.83. He remains on Lasix 40 mg IV every 12 hours, bronchodilators, oral vancomycin. Sitter is at the bedside. Taking in oral nutrition. The patient is seen today 11/28/2019 in follow-up in the intensive care unit. He is currently sitting up in a chair at the bedside. virtual assistant in place. He currently turns his head to loud verbal stimuli. Some words are clear, some are mumbled. He is currently on room air and maintaining O2 saturations in the 90s. Chest tubes remain in place to waterseal. No IV fluids running. Chest x- ray continues to show some alveolar airspace disease bilaterally. Blunting of the costophrenic angles. Small effusions. Evidence of mild heart failure. He is status post 4 units of packed red blood cells this admission. Current hemoglobin 9.6. White count 11.7. Sodium 142. Potassium 4.0. Creatinine 0.88. Blood, urine and sputum cultures revealed no growth. He remains on Lasix 40 mg IV every 12 hours, bronchodilators, oral vancomycin. The patient is seen today 12/03/2019 in follow-up on the selective care unit. He is awake and alert in no acute distress. Sitting up in feeding himself breakfast. Maintaining good O2 saturations in the 90s on room air. He was a total of 4 units of packed red blood cells this admission. Today's hemoglobin is 11.0. Blood and sputum cultures revealed no growth. White count 11.5. Hemoglobin 11.0. Sodium 140. Potassium 4.0. Creatinine 0.97. He remains on DuoNeb inhalations. Lungs sounds clear. Working well with the incentive spirometer. Chest x-ray reveals an unchanged small tiny apical pneumothorax. No pleural effusion. Objective - Vital Signs Vital signs: Vital Signs Temp 97.9 F 12/03/19 04:00 Pulse 76 12/03/19 11:53 Resp 16 12/03/19 04:00 BP 134/67 12/03/19 04:00 Pulse Ox 99 12/03/19 04:00 Intake & Output 12/02/19 12/03/19 12/03/19 18:59 06:59 18:59 Intake Total 450 Output Total 0 1000 Balance 450 -1000 Weight 72.2 kg 73.5 kg Intake: Oral 450 Output: Urine 0 Stool 1000 Other: Voiding Method Urinal Urinal Incontinent Incontinent # Voids 1 ABP, PAP, CO, CI - Last Documented Arterial Blood Pressure 155/55 Pulmonary Artery Pressure 30/17 Cardiac Output 4.5 Cardiac Index 2.3 - Exam GENERAL EXAM: Alert, active, 64-year-old gentleman, on room air, comfortable in no apparent distress. HEAD: Normocephalic. EYES: Normal reaction of pupils, equal size. NOSE: Clear with pink turbinates. THROAT: No erythema or exudates. NECK: No masses, no JVD. CHEST: No chest wall deformity. Sternum stable. Heart hugger in place. LUNGS: Equal air entry with no crackles, wheeze, rhonchi or dullness. CVS: S1 and S2 normal with no audible murmur, regular rhythm. ABDOMEN: No hepatosplenomegaly, normal bowel sounds, no guarding or rigidity. SPINE: No scoliosis or deformity SKIN: No rashes CENTRAL NERVOUS SYSTEM: No focal deficits, tone is normal in all 4 extremities. EXTREMITIES: There is no peripheral edema. No clubbing, no cyanosis. Peripheral pulses are intact. - Labs CBC & Chem 7: 12/03/19 06:07 12/03/19 06:07 Labs: Abnormal Lab Results - Last 24 Hours (Table) 12/02/19 12/02/19 12/03/19 Range/Units 16:56 20:54 06:07 WBC 11.5 H (3.8-10.6) k/uL RBC 3.55 L (4.30-5.90) m/uL Hgb 11.0 L (13.0-17.5) gm/dL Hct 35.5 L (39.0-53.0) % MCV 100.1 H (80.0-100.0) fL MCHC 30.8 L (31.0-37.0) g/dL Chloride (98-107) mmol/L BUN (9-20) mg/dL POC Glucose (mg/dL) 156 H 104 H (75-99) mg/dL 12/03/19 12/03/19 12/03/19 Range/Units 06:07 06:51 11:55 WBC (3.8-10.6) k/uL RBC (4.30-5.90) m/uL Hgb (13.0-17.5) gm/dL Hct (39.0-53.0) % MCV (80.0-100.0) fL MCHC (31.0-37.0) g/dL Chloride 109 H (98-107) mmol/L BUN 25 H (9-20) mg/dL POC Glucose (mg/dL) 128 H 142 H (75-99) mg/dL Microbiology - Last 24 Hours (Table) 11/29/19 15:01 Blood Culture - Preliminary Blood No Growth after 72 hours Assessment and Plan Assessment: 1 Coronary artery disease without stable angina and non-STEMI. The patient underwent five-vessel bypass surgery on 11/08/2019. CABG 5 with GR to LAD, left radial artery to obtuse marginal, saphenous vein to posterior lateral, sequential saphenous vein to first and second diagonal performed on cardiopulmonary bypass with beating heart. Epi-aortic ultrasound and ligation of left atrial appendage with Atriclip. The patient is postop day #25. Hemodynamically stable. 2 Recurrent acute hypoxic respiratory failure, multifactorial, patient was initially intubated for the original surgery on 11/08/2019 with extubation on 11/08/2019, patient was re-intubated on 11/12/2019, for symptomatic bradycardia, worsening lactic acidosis, of unclear etiology. Patient was successfully weaned and extubated on 11/19/2019, and subsequently reintubated on 11/20/2019 for worsening hypoxemia related to pulmonary edema and A. fib with RVR. Antibiotics have been given empirically, cultures remain negative. Patient was successfully weaned and extubated on 11/25/2019, tolerating extubation 11/28/2019 currently on room air with no evidence of respiratory distress 3 Altered mental status related to subacute CVA involving the left MCA distribution please refer to the neurology evaluation, improved, patient is awake and alert, responded to some simple commands, garbled speech at times. Improved. 4 Chronic and ongoing tobacco dependence with chronic obstructive pulmonary disease, preoperative FEV1 value was 60% of predicted 5 Previous coronary artery disease with stent placement to the proximal circumflex and OM1 6 Peripheral vascular disease with prior peripheral stent placements 7 Right carotid artery stenosis at 50-69% 7 History of marijuana use 8 Diabetes mellitus, type II 9 History of bladder cancer status post radiation/chemotherapy and subsequent surgery 10 History of noncompliance Plan: The patient was seen and evaluated by Dr. Malin Chest x-ray and labs reviewed Stable from the pulmonary standpoint Plan is for discharge to [facility] for subacute rehabilitation I, the cosigning physician, performed a history & physical examination of the patient. Lungs sounds clear anteriorly posteriorly. Maintaining good O2 saturations in the 90s on room air. I discussed the assessment and plan of care with my nurse practitioner, Renetta Sanchez. I attest to the above note as dictated by her.
--- NOTE | 2019-12-03 13:08 | P.PN ---
Subjective 64-year-old male was recently discharged from the hospital came back in with the chest pain pressure-like sensation lasted for a few hours . Patient found to have Coronary artery disease and non-ST elevation myocardial infarction status post CABG 5 vessel on 11/07. He is also with A. fib and RVR and bradycardia, Also status post pacemaker placement. on follow-up currently remains in the ICU . He is awake, he looks somewhat confused and he does not answer my question common family at bedside says that the way he is. However no weakness is noted in the extremities. Patient looks comfortable and not in distress or pain. Mostly his decreased mentation is a due to multiple subacute stroke and he L-MCA territory He is hemodynamically stable and afebrile. WBC is slightly elevated at 15.8 K,Hemoglobin is 10.2k and platelets normal at 508. Creatinine 1.0 and other electrolytes are normal, sugars controlled currently however it was low this morning at 56. his 20 units of Levemir is lowered to 15 units and switched from at bedtime to daily Remains on IV Lasix 40 mg twice daily (for bilateral pleural effusion fluid overload ) and oral vancomycin His been evaluated by and followed closely by several consultants including CTS, cardiology team, pulmonary/critical care, infectious disease and neurology services 11/30/2019 Patient is clinically doing well at this time blood sugars are very well controlled at this time. Patient probably will be started on long-acting insulin along with either metformin or Januvia upon discharge. 12/01/2019 Patient is awaiting discharged to subacute rehabilitation. Patient's insulin regimen is being changed to this to long-acting insulin increasing the dose of long-acting insulin patient will be started on Januvia discontinue pre-meal insulin continue with pre-meal sliding scale insulin. Patient has increasing infiltrate in the right lower lung gruber which is probably atelectasis pul corporate executive following the patient. 12/02/2019 Patient blood sugars are fairly controlled on present regimen and patient can be discharged on the same regimen 12/03/2019 Patient blood sugars are much better today patient can be discharged on the same same regimen , patient is being discharged today Constitutional: Denied any fatigue denied any fever. Cardio vascular: denied any chest pain, palpitations Gastrointestinal denied any nausea vomiting Pulmonary: Denied any shortness of breath cough Neurologic denied any new focal deficits All inpatient medications were reviewed and appropriate changes in these medications as dictated in the interval history and assessment and plan. Objective - Vital Signs Vital signs: Vital Signs Temp 97.9 F 12/03/19 04:00 Pulse 76 12/03/19 11:53 Resp 16 12/03/19 04:00 BP 134/67 12/03/19 04:00 Pulse Ox 99 12/03/19 04:00 Intake & Output 12/02/19 12/03/19 12/03/19 18:59 06:59 18:59 Intake Total 450 Output Total 0 1000 Balance 450 -1000 Weight 72.2 kg 73.5 kg Intake: Oral 450 Output: Urine 0 Stool 1000 Other: Voiding Method Urinal Urinal Incontinent Incontinent # Voids 1 ABP, PAP, CO, CI - Last Documented Arterial Blood Pressure 155/55 Pulmonary Artery Pressure 30/17 Cardiac Output 4.5 Cardiac Index 2.3 - Exam PHYSICAL EXAMINATION: GENERAL: The patient is alert and oriented x3, not in any acute distress. Well developed, well nourished. HEENT: Pupils are round and equally reacting to light. EOMI. No scleral icterus. No conjunctival pallor. Normocephalic, atraumatic. No pharyngeal erythema. No thyromegaly. CARDIOVASCULAR: S1 and S2 present. No murmurs, rubs, or gallops. PULMONARY: Chest is clear to auscultation, no wheezing or crackles. ABDOMEN: Soft, nontender, nondistended, normoactive bowel sounds. No palpable o rganomegaly. MUSCULOSKELETAL: No joint swelling or deformity. EXTREMITIES: No cyanosis, clubbing, or pedal edema. NEUROLOGICAL: Gross neurological examination did not reveal any focal deficits. SKIN: No rashes. - Labs CBC & Chem 7: 12/03/19 06:07 12/03/19 06:07 Labs: Abnormal Lab Results - Last 24 Hours (Table) 12/02/19 12/02/19 12/03/19 Range/Units 16:56 20:54 06:07 WBC 11.5 H (3.8-10.6) k/uL RBC 3.55 L (4.30-5.90) m/uL Hgb 11.0 L (13.0-17.5) gm/dL Hct 35.5 L (39.0-53.0) % MCV 100.1 H (80.0-100.0) fL MCHC 30.8 L (31.0-37.0) g/dL Chloride (98-107) mmol/L BUN (9-20) mg/dL POC Glucose (mg/dL) 156 H 104 H (75-99) mg/dL 12/03/19 12/03/19 12/03/19 Range/Units 06:07 06:51 11:55 WBC (3.8-10.6) k/uL RBC (4.30-5.90) m/uL Hgb (13.0-17.5) gm/dL Hct (39.0-53.0) % MCV (80.0-100.0) fL MCHC (31.0-37.0) g/dL Chloride 109 H (98-107) mmol/L BUN 25 H (9-20) mg/dL POC Glucose (mg/dL) 128 H 142 H (75-99) mg/dL Microbiology - Last 24 Hours (Table) 11/29/19 15:01 Blood Culture - Preliminary Blood No Growth after 72 hours Assessment and Plan Plan: -Coronary artery disease and non-ST elevation myocardial infarction status post CABG 5 vessel -status post permanent pacemaker placement due to Persistant Bradycardia. Status post AICD and pacemaker placement -bilateral pleural effusions status post bilateral chest tube placement of the left and right -Altered mental status most likely secondary to toxic and metabolic encephalopathy. Probable subacute stroke involving multiple patchy areas in the left MCA vascular territory. neurology evaluated pt. Patient confusion resolved -New onset atrial fibrillation and RVR; remains rate controlled on amiodarone. Patient is presently sinus rhythm -Type 2 diabetes; continue with Levemir 20 units subcu daily at bedtime; monitor Accu-Cheks every before meals and at bedtime with insulin sliding scale. Adding Januvia as mentioned above -Peripheral vessel occlusive disease with prior peripheral stent placement. -Moderate severe COPD FEV1 of 60%; not in exacerbation; continue with bronchodilator nebulizer treatment and home inhaler therapy. -Acute kidney injury and acute shock liver secondary to hypotension, improved -Diarrhea: C. diff was ordered patient was started on oral vancomycin -CODE STATUS; full code
--- NOTE | 2019-12-03 13:46 | P.PN ---
Subjective Progress Note Date: 12/03/19 CHIEF COMPLAINT: CAD HISTORY OF PRESENT ILLNESS: Patient is s/p CABG. Patient examined this morning at the bedside. He denies chest pain or SOB. Vital signs have been stable. He is hoping to be discharged soon. PHYSICAL EXAM: VITAL SIGNS: Reviewed. GENERAL: Well-developed in no acute distress. NECK: Supple. No JVD or thyromegaly LUNGS: Respirations even and unlabored. Lungs essentially clear to auscultation bilaterally. HEART: Regular rate and rhythm. S1 and S2 heard. EXTREMITIES: Normal range of motion. No clubbing or cyanosis. Peripheral pulses intact. No lower extremity edema ASSESSMENT: #1 coronary artery disease and status post CABG #2 bradycardia status post permanent pacemaker #3 multiple comorbid condition #4 change in mental status PLAN: -Continue current medical regimen -Patient stable for discharge from a cardiac standpoint to [facility] Nurse practitioner note has been reviewed by physician. Signing provider agrees with the documented findings, assessment, and plan of care. Objective - Vital Signs Vital signs: Vital Signs Temp 97.9 F 12/03/19 04:00 Pulse 80 12/03/19 08:30 Resp 16 12/03/19 04:00 BP 134/67 12/03/19 04:00 Pulse Ox 99 12/03/19 04:00 Intake & Output 12/02/19 12/03/19 12/03/19 18:59 06:59 18:59 Intake Total 450 Output Total 0 1000 Balance 450 -1000 Weight 72.2 kg 73.5 kg Intake: Oral 450 Output: Urine 0 Stool 1000 Other: Voiding Method Urinal Urinal Incontinent Incontinent # Voids 1 ABP, PAP, CO, CI - Last Documented Arterial Blood Pressure 155/55 Pulmonary Artery Pressure 30/17 Cardiac Output 4.5 Cardiac Index 2.3 - Labs CBC & Chem 7: 12/03/19 06:07 12/03/19 06:07 Labs: Abnormal Lab Results - Last 24 Hours (Table) 12/02/19 12/02/19 12/02/19 Range/Units 12:26 16:56 20:54 WBC (3.8-10.6) k/uL RBC (4.30-5.90) m/uL Hgb (13.0-17.5) gm/dL Hct (39.0-53.0) % MCV (80.0-100.0) fL MCHC (31.0-37.0) g/dL Chloride (98-107) mmol/L BUN (9-20) mg/dL POC Glucose (mg/dL) 196 H 156 H 104 H (75-99) mg/dL 12/03/19 12/03/19 12/03/19 Range/Units 06:07 06:07 06:51 WBC 11.5 H (3.8-10.6) k/uL RBC 3.55 L (4.30-5.90) m/uL Hgb 11.0 L (13.0-17.5) gm/dL Hct 35.5 L (39.0-53.0) % MCV 100.1 H (80.0-100.0) fL MCHC 30.8 L (31.0-37.0) g/dL Chloride 109 H (98-107) mmol/L BUN 25 H (9-20) mg/dL POC Glucose (mg/dL) 128 H (75-99) mg/dL Microbiology - Last 24 Hours (Table) 11/29/19 15:01 Blood Culture - Preliminary Blood No Growth after 72 hours
[2019-12-03 15:02] VITALS: RESP 18; TEMP 98.1
[2019-12-03 15:12] VITALS: BP 118/56; PULSE 70
--- NOTE | 2019-12-03 15:57 | PN ---
PROGRESS NOTE DATE OF SERVICE: 12/03/2019 REASON FOR FOLLOWUP: Leukocytosis, diarrhea, possible C difficile. INTERVAL HISTORY: Patient is currently afebrile. The patient is breathing comfortably. Denies having any chest pain or shortness of breath or cough. No abdominal pain and no diarrhea has been noticed today by the patient gericare aide. PHYSICAL EXAMINATION: Blood pressure is 134/67 with a pulse of 87, temperature 97.9. She is 99% on 2 L nasal cannula. General description is an elderly male, lying in bed in no distress. RESPIRATORY SYSTEM: Unlabored breathing, clear to auscultation anteriorly. HEART: S1, S2. Regular rate and rhythm. ABDOMEN: Soft, no tenderness. LABS: White count 58222, culture has been negative. DIAGNOSTIC IMPRESSION AND PLAN: Patient with leukocytosis, multifactorial; possible concern for C difficile as the patient did have diarrhea. White count responded to Vanco, he is to complete a 2-week course. Vancomycin to be discontinued on discharge. Continue supportive care. No other evidence of any infection with all the cultures negative. MMODL / IJN: [id number] /
--- NOTE | 2019-12-07 11:58 | CDI ---
Documentation Clarification Form Date: 12/07/19 From: Montse Rose Phone: If you have a question about this query, please contact Libby Torrez, Can Sealer at [phone] between 8am and 5pm. Admit Date: 11/07/19 Discharge Date: 12/03/19 Patient Name: ANTONY CLIFFORD Visit Number: [id number] ATTENTION: The Clinical Documentation Specialists (CDI) and [facility] Coding Staff appreciate your assistance in clarifying documentation. Please respond to the clarification below the line at the bottom and electronically sign. The CDI & [facility] Coding staff will review the response and follow-up if needed. Please note: Queries are made part of the Legal Health Record. If you have any questions, please contact the author of this message via ITS. Dear Dr. Sunday Hewitt, A diagnosis of possible UTI has been documented in the your 11/15 PN. History/Risk Factors CAD, DM, HTN, PVD, Hx of bladder CA Clinical indicators Per Dr Malin 11/29 PN-The patient was started on Eraxis regarding the possibility of a fungal UTI and the Newman cath (started ind ED) has been removed and the cultures still pending for now. 11/28 ID Progress Note: "Patient with leukocytosis, multifactorial; possible catheter-associate urinary tract infection.Will change his Newman catheter.Obtain urine culture from new Newman.Empirically add Eraxis, as Diflucan could not be added because of the amiodarone.Continue vancomycin." Per Dr Diaz 11/29 PN-Consern for possible UTI; however, the urine no significant pyuria. leukocytosis 11/12 Urinalysis: protein-1+, blood-large, leukocyte esterase-moderate, WBC-182 11/12 Urine Cuture: "no growth after 18 hrs. 11/12 Lab results: WBC-18.7, neutrophils-15.2 Treatment IV Zoysn, IV Vanco, IV Eraxis 11/28 Newman Catheter Changed In your professional opinion, can you please clarify the etiology of the UTI, if known? UTI related to newman catheter UTI not related to catheter UTI rulled out Other condition, please specify Unable to determine If an infective organism is present, please specify cause and effect relationship if applicable. UTI ruled out MTDD
== END 2019-12-03 16:15 | DRG 235 ==
LOC: EC 05:58 → 2SICU 07:36 → 3SCARD 12-02 18:45
PROVIDERS: ADMIT Thoracic Surgery (Cardiothoracic Vascular Surgery); ATTEND Thoracic Surgery (Cardiothoracic Vascular Surgery)
PROC: 5A09357 Assistance with Respiratory Ventilation, Less than 24 Consecutive Hours, Continuous Positive Airway Pressure (ICD-10-PCS; 2019-11-07)
PROC: B34KZZZ Ultrasonography of Bilateral Upper Extremity Arteries (ICD-10-PCS; 2019-11-07)
PROC: 30243N1 Transfusion of Nonautologous Red Blood Cells into Central Vein, Percutaneous Approach (ICD-10-PCS; 2019-11-08)
PROC: 3E053XZ Introduction of Vasopressor into Peripheral Artery, Percutaneous Approach (ICD-10-PCS; 2019-11-08)
PROC: 0D9670Z Drainage of Stomach with Drainage Device, Via Natural or Artificial Opening (ICD-10-PCS; 2019-11-08)
PROC: 06BQ4ZZ Excision of Left Saphenous Vein, Percutaneous Endoscopic Approach (ICD-10-PCS; principal; 2019-11-08 08:00)
PROC: 02100AW Bypass Coronary Artery, One Artery from Aorta with Autologous Arterial Tissue, Open Approach (ICD-10-PCS; principal; 2019-11-08 08:00)
PROC: 02L70CK Occlusion of Left Atrial Appendage with Extraluminal Device, Open Approach (ICD-10-PCS; principal; 2019-11-08 08:00)
PROC: 021209W Bypass Coronary Artery, Three Arteries from Aorta with Autologous Venous Tissue, Open Approach (ICD-10-PCS; principal; 2019-11-08 08:00)
PROC: 03BC4ZZ Excision of Left Radial Artery, Percutaneous Endoscopic Approach (ICD-10-PCS; principal; 2019-11-08 08:00)
PROC: 021 Heart and Great Vessels, Bypass (ICD-10-PCS; principal; 2019-11-08 08:00)
PROC: 5A1221Z Performance of Cardiac Output, Continuous (ICD-10-PCS; principal; 2019-11-08 08:00)
PROC: B24BZZ4 Ultrasonography of Heart with Aorta, Transesophageal (ICD-10-PCS; principal; 2019-11-08 08:00)
PROC: 03HY32Z Insertion of Monitoring Device into Upper Artery, Percutaneous Approach (ICD-10-PCS; 2019-11-12)
PROC: 5A1955Z Respiratory Ventilation, Greater than 96 Consecutive Hours (ICD-10-PCS; 2019-11-12)
PROC: 4A133J1 Monitoring of Arterial Pulse, Peripheral, Percutaneous Approach (ICD-10-PCS; 2019-11-12)
PROC: 4A133B1 Monitoring of Arterial Pressure, Peripheral, Percutaneous Approach (ICD-10-PCS; 2019-11-12)
PROC: 0BH17EZ Insertion of Endotracheal Airway into Trachea, Via Natural or Artificial Opening (ICD-10-PCS; 2019-11-12)
PROC: 02H633Z Insertion of Infusion Device into Right Atrium, Percutaneous Approach (ICD-10-PCS; 2019-11-12)
PROC: 05HC33Z Insertion of Infusion Device into Left Basilic Vein, Percutaneous Approach (ICD-10-PCS; 2019-11-12)
PROC: 3E0G76Z Introduction of Nutritional Substance into Upper GI, Via Natural or Artificial Opening (ICD-10-PCS; 2019-11-13)
PROC: 0DH67UZ Insertion of Feeding Device into Stomach, Via Natural or Artificial Opening (ICD-10-PCS; 2019-11-13)
PROC: 0W9930Z Drainage of Right Pleural Cavity with Drainage Device, Percutaneous Approach (ICD-10-PCS; 2019-11-23)
PROC: 0W9B30Z Drainage of Left Pleural Cavity with Drainage Device, Percutaneous Approach (ICD-10-PCS; 2019-11-23)
PROC: 05HB33Z Insertion of Infusion Device into Right Basilic Vein, Percutaneous Approach (ICD-10-PCS; 2019-11-24)
PROC: B51N1ZA Fluoroscopy of Left Upper Extremity Veins using Low Osmolar Contrast, Guidance (ICD-10-PCS; 2019-11-25)
PROC: 02H63JZ Insertion of Pacemaker Lead into Right Atrium, Percutaneous Approach (ICD-10-PCS; 2019-11-25)
PROC: 0JH606Z Insertion of Pacemaker, Dual Chamber into Chest Subcutaneous Tissue and Fascia, Open Approach (ICD-10-PCS; 2019-11-25)
PROC: 02HK3JZ Insertion of Pacemaker Lead into Right Ventricle, Percutaneous Approach (ICD-10-PCS; 2019-11-25)
DX: I21.4 Non-ST elevation (NSTEMI) myocardial infarction (principal); G93.41 Metabolic encephalopathy; K72.00 Acute and subacute hepatic failure without coma; J96.01 Acute respiratory failure with hypoxia; J69.0 Pneumonitis due to inhalation of food and vomit; I50.33 Acute on chronic diastolic (congestive) heart failure; J91.8 Pleural effusion in other conditions classified elsewhere; E87.2 Acidosis; N17.9 Acute kidney failure, unspecified; D62 Acute posthemorrhagic anemia; J98.11 Atelectasis; T19.0XXA Foreign body in urethra, initial encounter; J44.9 Chronic obstructive pulmonary disease, unspecified; I49.5 Sick sinus syndrome; L89.152 Pressure ulcer of sacral region, stage 2; E11.51 Type 2 diabetes mellitus with diabetic peripheral angiopathy without gangrene; I11.0 Hypertensive heart disease with heart failure; I95.9 Hypotension, unspecified; E11.65 Type 2 diabetes mellitus with hyperglycemia; I25.110 Atherosclerotic heart disease of native coronary artery with unstable angina pectoris; I48.0 Paroxysmal atrial fibrillation; Z20.828 Contact with and (suspected) exposure to other viral communicable diseases; R31.9 Hematuria, unspecified; E78.5 Hyperlipidemia, unspecified; T50.906A Underdosing of unspecified drugs, medicaments and biological substances, initial encounter; Z91.128 Patient's intentional underdosing of medication regimen for other reason; I65.21 Occlusion and stenosis of right carotid artery; I08.3 Combined rheumatic disorders of mitral, aortic and tricuspid valves; I25.2 Old myocardial infarction; K44.9 Diaphragmatic hernia without obstruction or gangrene; M72.2 Plantar fascial fibromatosis; K42.9 Umbilical hernia without obstruction or gangrene; L30.9 Dermatitis, unspecified; L40.9 Psoriasis, unspecified; F40.240 Claustrophobia; F17.210 Nicotine dependence, cigarettes, uncomplicated; Z71.6 Tobacco abuse counseling; Z79.82 Long term (current) use of aspirin; Z79.84 Long term (current) use of oral hypoglycemic drugs; Z79.899 Other long term (current) drug therapy; Z85.51 Personal history of malignant neoplasm of bladder; Z98.890 Other specified postprocedural states; Z87.442 Personal history of urinary calculi; Z95.5 Presence of coronary angioplasty implant and graft; Z95.828 Presence of other vascular implants and grafts; Z98.52 Vasectomy status; Z92.21 Personal history of antineoplastic chemotherapy; Z92.3 Personal history of irradiation; Z86.73 Personal history of transient ischemic attack (TIA), and cerebral infarction without residual deficits; Z91.018 Allergy to other foods; X58.XXXA Exposure to other specified factors, initial encounter; Z82.49 Family history of ischemic heart disease and other diseases of the circulatory system; Z83.3 Family history of diabetes mellitus; Z83.49 Family history of other endocrine, nutritional and metabolic diseases
CPT/HCPCS: 33208; 36410; 36415; 36430; 36600; 70450; 71045; 71275; 74018; 76604; 76700; 76937; 80048; 80053; 80202; 81001; 82140; 82150; 82330; 82805; 83036; 83605; 83690; 83735; 83880; 84100; 84132; 84134; 84145; 84450; 84460; 84484; 85025; 85027; 85520; 85610; 85730; 86140; 86850; 86891; 86900; 86901; 86920; 87040; 87070; 87086; 87205; 93005; 93306; 93308; 93922; 93923; 93930; 94002; 94003; 94640; 94660; 96361; 96365; 96366; 96367; 96375; 96376; 99291

== ENCOUNTER 2019-12-11 18:23 | Inpatient (IN) | payer BC, MEDICARE ==
--- NOTE | 2019-12-11 18:40 | ED ---
Chest Pain HPI - General Chief Complaint: Chest Pain Stated Complaint: Chest Pain Time Seen by Provider: 12/11/19 18:25 Source: EMS Mode of arrival: EMS Limitations: no limitations - History of Present Illness Initial Comments: Patient is a 64-year-old male with extensive past medical history to include coronary artery disease with recent CABG, hypertension, hyperlipidemia, COPD, postoperative shock liver/bilateral pleural effusions/pneumothorax with bilateral chest tube placement who presents to the emergency department from [facility]. Patient reports that approximately 5:15 he had sudden onset of substernal chest pain which is graded 9 out of 10. He told the staff at [facility] who then called the patient's . EMS arrived and gave the patient 324 mg of aspirin and 1 nitro. At that time the patient arrived to the hospital he reports that he is pain free. He had no associated shortness of breath or diaphoresis. No nausea or vomiting. presents to bedside and states that the patient has had some periods of confusion over the past week. She thinks it secondary to Cardizem as it seems like he becomes confused every time he is administer this medication. Patient is currently alert and oriented 3. States he feels generally fatigued her chest pain is gone. The patient is a poor historian however denies any fevers, chills, nausea, vomiting, cough. - Related Data Home Medications Medication Instructions Recorded Confirmed Cholecalciferol [Vitamin D3 (25 1,000 unit PO DAILY #0 11/01/19 12/11/19 Mcg = 1000 Iu)] Multivitamins, Thera [Multivitamin 1 tab PO DAILY 11/01/19 12/11/19 (formulary)] Ascorbic Acid [Vitamin C] 500 mg PO DAILY 11/05/19 12/11/19 Atomoxetine HCl [Strattera] 40 mg PO HS 12/11/19 12/11/19 INSULIN ASPART (NovoLOG) [NovoLOG 2 unit SQ ACHS 12/11/19 12/11/19 (formulary)] Lactobacillus Acidoph & Bulgar 1 tab PO TID-W/MEALS 12/11/19 12/11/19 [Lactinex] Pantoprazole [Protonix] 40 mg PO DAILY 12/11/19 12/11/19 QUEtiapine [SEROquel] 12.5 mg PO HS 12/11/19 12/11/19 Previous Rx's Medication Instructions Recorded Aspirin 81 mg PO DAILY #30 chew 11/04/19 Acetaminophen Tab [Tylenol] 1,000 mg PO Q6HR PRN tab 12/03/19 Clopidogrel [Plavix] 75 mg PO DAILY tab 12/03/19 Heparin Sodium,Porcine [Heparin 5,000 unit SQ Q8HR vial 12/03/19 Sodium] Ipratropium-Albuterol Nebulize 3 ml INHALATION RT-Q2H PRN ml 12/03/19 [Duoneb 0.5 mg-3 mg/3 ml Soln] Ipratropium-Albuterol Nebulize 3 ml INHALATION RT-QID ml 12/03/19 [Duoneb 0.5 mg-3 mg/3 ml Soln] Linagliptin [Tradjenta] 5 mg PO DAILY tablet 12/03/19 SILVER sulfADIAZINE CREAM 1 applic TOPICAL BID applic 12/03/19 [Silvadene Cream] Atorvastatin [Lipitor] 20 mg PO DAILY tab 12/16/19 Folic Acid 1 mg PO DAILY@1200 tab 12/16/19 Insulin Detemir (Levemir) [Levemir] 5 unit SQ HS syr 12/16/19 Metoprolol Tartrate [Lopressor] 12.5 mg PO BID tab 12/16/19 Thiamine [Vitamin B-1] 100 mg PO DAILY@1200 tab 12/16/19 Allergies Allergy/AdvReac Type Severity Reaction Status Date / Time ragweed pollen Allergy Unknown Verified 12/11/19 21:02 Review of Systems ROS Statement: Those systems with pertinent positive or pertinent negative responses have been documented in the HPI. ROS Other: All systems not noted in ROS Statement are negative. EKG Findings - EKG Comments: EKG Findings:: EKG demonstrates a normal sinus rhythm with a ventricular rate of 69. [place] interval 158. QRS 102. QTC of 469. Inverted T-wave ST depression in 2, 3, aVF as well as V3 through V6. These changes were present previously Past Medical History Past Medical History: Coronary Artery Disease (CAD), Cancer, Chest Pain / Angina, Diabetes Mellitus, Hypertension, Myocardial Infarction ([place]), Skin Disorder Additional Past Medical History / Comment(s): Intermittent BILATERAL CLAUDICATION & NEW OCCURRENCE OF LEFT PLANTAR FASCITIS (DIFFICULT TO WALK). Hx of bladder ca with surgery, psoriases,eczema, hiatal hernia, umbilical hernia, kidney stones 2004. Last Myocardial Infarction Date:: 2015 History of Any Multi-Drug Resistant Organisms: None Reported Past Surgical History: Heart Catheterization With Stent Additional Past Surgical History / Comment(s): 10/20/15 last CARDIAC STENT-has had several previous cardiac stents, vasectomy, bladder sx x2 to remove tumors. L femoral artherectomy/STENT TO LT common ILIAC artery, 05/22/16 R femoral/popliteal atherectomy with PTBA/stent, angiograms, aortogram with run off. Past Anesthesia/Blood Transfusion Reactions: No Reported Reaction Additional Past Anesthesia/Blood Transfusion Reaction / Comment(s): CLAUSTROPHOBIC IN LARGE CROWDS Date of Last Stent Placement:: 10/20/15 Past Psychological History: No Psychological Hx Reported Past Alcohol Use History: None Reported Past Drug Use History: Marijuana - Past Family History Father Family Medical History: Myocardial Infarction ([place]) Additional Family Medical History / Comment(s): PT'S DAD WHEN PT WAS AGE 4 he believes from a myocardial infarction. Mother Family Medical History: Diabetes Mellitus, Hyperlipidemia, Hypertension, Vascular Disorder General Exam Limitations: no limitations General appearance: alert, in no apparent distress Head exam: Present: atraumatic, normocephalic, normal inspection Eye exam: Present: normal appearance, PERRL, EOMI. Absent: scleral icterus, conjunctival injection, periorbital swelling ENT exam: Present: normal exam, mucous membranes moist Neck exam: Present: normal inspection. Absent: tenderness, meningismus, lymphadenopathy Respiratory exam: Present: normal lung sounds bilaterally. Absent: respiratory distress, wheezes, rales, rhonchi, stridor Cardiovascular Exam: Present: regular rate, normal rhythm, normal heart sounds. Absent: systolic murmur, diastolic murmur, rubs, gallop, clicks GI/Abdominal exam: Present: soft, normal bowel sounds. Absent: distended, tenderness, guarding, rebound, rigid Extremities exam: Present: normal inspection, full ROM, normal capillary refill. Absent: tenderness, pedal edema, joint swelling, calf tenderness Back exam: Present: normal inspection Neurological exam: Present: alert, oriented X3, CN II-XII intact Psychiatric exam: Present: normal mood, flat affect Skin exam: Present: warm, dry, intact, normal color, other (multiple well healed chest wall scars). Absent: rash Course Vital Signs 12/11/19 12/11/19 12/11/19 18:25 18:32 19:00 Temperature 98.0 F Pulse Rate 67 60 Pulse Rate [ 66 Door Closer ] Respiratory 16 14 Rate Blood Pressure 102/64 102/64 O2 Sat by Pulse 99 100 Oximetry 12/11/19 12/11/19 19:23 20:00 Temperature 98.2 F Pulse Rate 62 64 Pulse Rate [ Door Closer ] Respiratory 20 16 Rate Blood Pressure 118/75 99/48 O2 Sat by Pulse 100 100 Oximetry Chest Pain MDM - MDM Upon arrival the patient is placed into room 5. He is hooked up to continuous pulse ox and cardiac monitoring. A 12-lead EKG is performed which demonstrates no acute ST segment elevation. Pain is resolved at this time. Laboratory studies were conducted and the patient went for chest x-ray. Lab studies are remarkable for a creatinine of 2.2. Previous lab study was 0.9 on the seventh. Patient is started on 50 mL of normal saline per hour without a fluid bolus. Patient appears dehydrated on clinical exam. Troponin is 0.032. Chest x-ray demonstrates no active cardiopulmonary disease. Clearing of the tiny right- sided pneumothorax. I did discuss the results with the patient's family. I did recommend hospital admission in order to trend the patient's troponins. I discussed the case with Dr. Hsu who accepted admission for the patient. I will consult cardiology. Patient remained in stable condition awaiting a bed on the floor Disposition Clinical Impression: Chest pain, ISAAC (acute kidney injury) Disposition: ADMITTED IP TO THIS HOSP Condition: Stable Is patient prescribed a controlled substance at d/c from ED?: No Decision to Admit Reason: Admit from EC Decision Date: 12/11/19 Decision Time: 20:07
--- NOTE | 2019-12-11 18:56 | XR ---
EXAMINATION TYPE: XR chest 2V DATE OF EXAM: 12/11/2019 COMPARISON: 12/03/2019 HISTORY: Pneumothorax TECHNIQUE: 2 views FINDINGS: Heart is normal. Lungs are clear of infiltrate. There are no hilar masses. Costophrenic ang les are clear. There is a left axillary pacemaker. There are sternal wires. There are chest leads. IMPRESSION: No active cardiopulmonary disease. There is clearing of the tiny right side pneumothorax compared to old exam. Normal heart.
[2019-12-11 19:02] LABS: Albumin 3.7 g/dL (3.5-5.0); Calcium 9.1 mg/dL (8.4-10.2); Magnesium 1.9 mg/dL (1.6-2.3); Potassium 4.2 mmol/L (3.5-5.1); Total Bilirubin 0.6 mg/dL (0.2-1.3); Total Protein 6.9 g/dL (6.3-8.2)
[2019-12-11 19:03] LABS: INR 1.1 (<1.2); Partial Thromboplastin Time 26.5 sec (22.0-30.0); Prothrombin Time 11.1 sec (9.0-12.0)
[2019-12-11 19:13] LABS: HCT 39.1 % (39.0-53.0); HGB 12.5 gm/dL (13.0-17.5); MCH 31.4 pg (25.0-35.0); MCHC 31.9 g/dL (31.0-37.0); MCV 98.5 fL (80.0-100.0); Mean Platelet Volume 7.5; Platelet Count 332 k/uL (150-450); RBC 3.97 m/uL (4.30-5.90); RDW 14.2 % (11.5-15.5); WBC 7.3 k/uL (3.8-10.6)
[2019-12-11 19:54] LABS: Eosinophils # (M) 0.15 k/uL (0-0.7); Lymphocytes # (M) 1.17 k/uL (1.0-4.8); Monocytes # (M) 1.02 k/uL (0-1.0); Neutrophils # (M) 4.96 k/uL (1.3-7.7); Neutrophils % (M) 68 %; Nucleated Red Blood Cells 0 /100 WBC (0-0); Total Cells Counted 100
[2019-12-11] MEDS ORDERED: NALOXONE 0.4 MG/ML 1 ML VIAL IV PRN (20:07)
[2019-12-11] MEDS: SODIUM CHLORIDE 0.9% 1,000 ML IV SCH (20:15)
[2019-12-12] LABS: Glucose,Whole Blood 96 mg/dL (75-99)
[2019-12-12] MEDS ORDERED: IPRATROPIUM-ALBUTEROL 3 ML NEB INHALATION PRN (00:39)
[2019-12-12] MEDS ORDERED: ACETAMINOPHEN TAB 500 MG TAB PO PRN (00:39)
[2019-12-12] MEDS ORDERED: HYDROcodone/APAP 5-325MG 1 EACH TAB PO PRN (00:41)
[2019-12-12] MEDS: ALPRAZolam 0.25 MG TAB PO PRN (02:25)
[2019-12-12 06:56] LABS: Glucose,Whole Blood 121 mg/dL (75-99)
[2019-12-12] MEDS: IPRATROPIUM-ALBUTEROL 3 ML NEB INHALATION SCH ×4 (07:46→19:40)
--- NOTE | 2019-12-12 08:32 | HP ---
HISTORY AND PHYSICAL DATE OF SERVICE: 12/11/2019 CHIEF COMPLAINT: Chest pain. HISTORY OF PRESENT ILLNESS: This 64-year-old gentleman with a past medical history of history of CAD, history of chest pain, diabetes, hypertension, myocardial infarction being for Dr. Boswell in the outpatient setting is complaining of chest pain. The pain was felt in the anterior part of the chest. The patient recently had bilateral pneumothorax with bilateral chest tube placements and the patient was discharged about a week ago after CAD, CABG x5 vessel disease. The patient also had bilateral pleural effusion at this time. Currently the pain was situated in the anterior part of the chest which was relieved by aspirin and nitroglycerin and the patient was admitted for further evaluation and treatment. T creatinine was found to be 2.24, which is worsened from the baseline. There is no history of any fever, rigors. No history of headache, loss of consciousness, seizures. The troponin was found to be 0.032 and 0.025 and the EKG showed ST depression in V5. There is no history of fever, rigors, chills at this time. PAST MEDICAL HISTORY: History of CAD, CABG, diabetes type 2, hypertension, myocardial infarction, history of claudication, history of bilateral pleural effusion. HOME MEDICATIONS: Silver sulfadiazine, Seroquel, Tradjenta, Protonix, multivitamins, metoprolol, Cozaar, insulin, lactobacillus, DuoNeb, Levemir, heparin, Cardizem, Lasix, Plavix, cholecalciferol, aspirin, amiodarone, Tylenol. Doses were reviewed. ALLERGIES: RAGWEED, POLLEN. FAMILY HISTORY: History of myocardial infarction in the family. SOCIAL HISTORY: History of smoking, continued, ongoing. No history of alcohol intake. REVIEW OF SYSTEMS: ENT No history of diminished hearing or vision. CARDIOVASCULAR As mentioned earlier. RESPIRATORY As mentioned earlier. GI No nausea, vomiting, or diarrhea. No dysuria or hematuria. NERVOUS No numbness or weakness. ALLERGY/IMMUNOLOGY No asthma or hayfever. MUSCULOSKELETAL As mentioned earlier. HEMATOLOGY/ONCOLOGY Negative. ENDOCRINE As mentioned earlier. CONSTITUTIONAL As mentioned earlier. DERMATOLOGY Negative. RHEUMATOLOGY Negative, PSYCHIATRY As mentioned earlier. PHYSICAL EXAM: Patient is alert, oriented x3. Pulse is 65, blood pressure 103/60, respiration 14, temperature 97.2, pulse ox 100% on room air. HEENT: Conjunctivae normal. Oral mucosa moist. NECK: No jugular venous distention. No lymph node enlargement. CARDIOVASCULAR: S1, S2, muffled. No S3, no S4, RESPIRATORY: Diminished breath sounds at the bases. Scattered rhonchi and crackles. ABDOMEN: Soft, nontender. LEGS: No edema, no swelling. NERVOUS SYSTEM: Higher functions mentioned earlier. Moves all four limbs. No focal motor or sensory deficits. LYMPHATICS: No lymph node in neck or axilla. SKIN: No rash. JOINTS: No active deforming arthropathy. LABS: WBC 7.2, hemoglobin 12.4 sodium 133, creatinine is 2.24. The EKG reviewed. Chest x-ray which was personally reviewed by me showed some increased bronchovascular markings. ASSESSMENT: 1. Chest pain for evaluation, rule out coronary artery disease. 2. Acute renal failure, possibly prerenal acute tubular necrosis. 3. Recent coronary artery disease, coronary artery bypass graft x4. 4. Recent bilateral pleural effusion and chest tube drainage. 5. Change in mental status and acute on chronic metabolic encephalopathy. 6. History of diabetes mellitus type 2. 7. Hypertension. 8. History of myocardial infarction. 9. Intermittent bilateral claudication. 10.History of nicotine dependence. 11.History of psoriasis. 12.History of hiatal hernia. 13.History of coronary artery disease, stent. 14.History of peripheral vascular disease. 15.FULL CODE. 16.History of THC. RECOMMENDATION: In this 64-year-old gentleman who presented with multiple complex medical issues, we will monitor the patient closely, continue the current management and symptomatic treatment. Will also consult Cardiology to rule out myocardial infarction. Symptomatic treatment. We will also avoid nephrotoxic medications. Will cautiously infuse IV fluids and monitor creatinine closely. Overall prognosis guarded because of multiple complex medical issues. Further recommendations to follow. MMODL / IJN: [id number] /
--- NOTE | 2019-12-12 08:42 | P.HPIM ---
History of Present Illness Patient is a 64-year-old male was recently discharged from the hospital 11/06- multiple medical problems, he had Coronary artery disease and non-ST elevation myocardial infarction status post CABG 5 vessel on 11/07. He is also with A. fib and RVR and bradycardia, Also status post pacemaker placement. had decreased mentation is a due to multiple subacute stroke and he L-MCA territory, postoperative shock liver/bilateral pleural effusions/pneumothorax with bilateral chest tube placement, atrial fibrillation ,Diabetic on insulin. COPD. Peripheral vascular disease with prior stent placement. History of bladder cancer status post radiant chemotherapy, stage II pressure ulcers of the coccyx, history of acute kidney injury, He was discharged to rehab, and sent back to the hospital yesterday for chest pain. Patient is disoriented to time, place and person, he has memory problems however is fully awake and he remembers he had chest pain yesterday, central fat like pressure, nonradiating, moderate to severe but now has no chest pain. Patient denies dyspnea or dizziness. No abdominal pain. He denies any urinary or GI complaints. No headache. Patient is afebrile and vital signs stable. CBC and INR and liver enzymes are unremarkable. Creatinine is elevated at 2.2, baseline is 0.9-1.1. Serial troponins are negative. EKG showing normal sinus rhythm at [address]-T changes. Chest x-ray: No acute pulmonary process. In the emergency room patient was started on normal saline at 50 mL per hour Review of Systems CONSTITUTIONAL: No fever, no malaise, no fatigue. HEENT: No recent visual problems or hearing problems. Denied any sore throat. CARDIOVASCULAR: No orthopnea, PND, no palpitations, no syncope. PULMONARY: No shortness of breath, no cough, no hemoptysis. GASTROINTESTINAL: No diarrhea, no nausea, no vomiting, no abdominal pain. Normoactive bowel sounds. NEUROLOGICAL: No headaches, no weakness, no numbness. HEMATOLOGICAL: Denies any bleeding or petechiae. GENITOURINARY: Denies any burning micturition, frequency, or urgency. MUSCULOSKELETAL/RHEUMATOLOGICAL: Denies any joint pain, swelling, or any muscle pain. ENDOCRINE: Denies any polyuria or polydipsia. Past Medical History Past Medical History: Coronary Artery Disease (CAD), Cancer, Chest Pain / Angina, Diabetes Mellitus, Hypertension, Myocardial Infarction ([place]), Skin Disorder Additional Past Medical History / Comment(s): Intermittent BILATERAL CLAUDICATION & NEW OCCURRENCE OF LEFT PLANTAR FASCITIS (DIFFICULT TO WALK). Hx of bladder ca with surgery, psoriases,eczema, hiatal hernia, umbilical hernia, kidney stones 2004. Last Myocardial Infarction Date:: 2015 History of Any Multi-Drug Resistant Organisms: None Reported Past Surgical History: Coronary Bypass/CABG, Heart Catheterization With Stent Additional Past Surgical History / Comment(s): 10/20/15 last CARDIAC STENT-has had several previous cardiac stents, vasectomy, bladder sx x2 to remove tumors. L femoral artherectomy/STENT TO LT common ILIAC artery, 05/22/16 R femoral/popliteal atherectomy with PTBA/stent, angiograms, aortogram with run off. Past Anesthesia/Blood Transfusion Reactions: No Reported Reaction Additional Past Anesthesia/Blood Transfusion Reaction / Comment(s): CLAUSTROPHOBIC IN LARGE CROWDS Date of Last Stent Placement:: 10/20/15 Past Psychological History: No Psychological Hx Reported Smoking Status: Former smoker Past Alcohol Use History: None Reported Additional Past Alcohol Use History / Comment(s): pt states smokes 1/2 to a full pack a day, smokes majijauna on occasion Past Drug Use History: Marijuana - Past Family History Father Family Medical History: Myocardial Infarction ([place]) Additional Family Medical History / Comment(s): PT'S DAD WHEN PT WAS AGE 4 he believes from a myocardial infarction. Mother Family Medical History: Diabetes Mellitus, Hyperlipidemia, Hypertension, Vascular Disorder Medications and Allergies Home Medications Medication Instructions Recorded Confirmed Type Cholecalciferol [Vitamin D3 (25 1,000 unit PO DAILY #0 11/01/19 12/11/19 History Mcg = 1000 Iu)] Multivitamins, Thera [Multivitamin 1 tab PO DAILY 11/01/19 12/11/19 History (formulary)] Aspirin 81 mg PO DAILY #30 chew 11/04/19 12/11/19 Rx Ascorbic Acid [Vitamin C] 500 mg PO DAILY 11/05/19 12/11/19 History Acetaminophen Tab [Tylenol] 1,000 mg PO Q6HR PRN tab 12/03/19 12/11/19 Rx Amiodarone [Cordarone] 200 mg PO DAILY tab 12/03/19 12/11/19 Rx Clopidogrel [Plavix] 75 mg PO DAILY tab 12/03/19 12/11/19 Rx Furosemide [Lasix] 40 mg PO DAILY tab 12/03/19 12/11/19 Rx Heparin Sodium,Porcine [Heparin 5,000 unit SQ Q8HR vial 12/03/19 12/11/19 Rx Sodium] Ipratropium-Albuterol Nebulize 3 ml INHALATION RT-Q2H PRN ml 12/03/19 12/11/19 Rx [Duoneb 0.5 mg-3 mg/3 ml Soln] Ipratropium-Albuterol Nebulize 3 ml INHALATION RT-QID ml 12/03/19 12/11/19 Rx [Duoneb 0.5 mg-3 mg/3 ml Soln] Linagliptin [Tradjenta] 5 mg PO DAILY tablet 12/03/19 12/11/19 Rx Losartan [Cozaar] 25 mg PO DAILY tab 12/03/19 12/11/19 Rx SILVER sulfADIAZINE CREAM 1 applic TOPICAL BID applic 12/03/19 12/11/19 Rx [Silvadene Cream] Metoprolol Tartrate 25 mg PO BID #60 tab 12/06/19 12/11/19 Rx Atomoxetine HCl [Strattera] 40 mg PO HS 12/11/19 12/11/19 History Diltiazem Cd [Cardizem CD] 120 mg PO DAILY 12/11/19 12/11/19 History INSULIN ASPART (NovoLOG) [NovoLOG 2 unit SQ ACHS 12/11/19 12/11/19 History (formulary)] Insulin Detemir (Levemir) [Levemir] 20 unit SQ HS 12/11/19 12/11/19 History Lactobacillus Acidoph & Bulgar 1 tab PO TID-W/MEALS 12/11/19 12/11/19 History [Lactinex] Pantoprazole [Protonix] 40 mg PO DAILY 12/11/19 12/11/19 History QUEtiapine [SEROquel] 12.5 mg PO HS 12/11/19 12/11/19 History Allergies Allergy/AdvReac Type Severity Reaction Status Date / Time ragweed pollen Allergy Unknown Verified 12/11/19 21:02 Physical Exam Vitals: Vital Signs Temp Pulse Pulse Resp BP BP Pulse Ox 12/12/19 03:00 97.5 F L 71 16 127/72 100 12/12/19 01:15 91 25 H 139/80 100 12/11/19 23:52 97.5 F L 71 16 114/65 100 12/11/19 21:06 97.3 F L 65 14 103/63 100 12/11/19 20:45 97.3 F L 65 14 103/63 100 12/11/19 20:00 98.2 F 64 16 99/48 100 12/11/19 19:23 62 20 118/75 100 12/11/19 19:00 60 14 102/64 100 12/11/19 18:32 66 12/11/19 18:25 98.0 F 67 16 102/64 99 Intake and Output 12/11/19 12/12/19 12/12/19 22:59 06:59 14:59 Intake Total 400 Balance 400 Intake: Oral 400 Other: Voiding Method Urinal Urinal Weight 81.647 kg -GENERAL: The patient is alert and confused to time place and person, not in any acute distress. Well developed, well nourished. HEENT: Pupils are round and equally reacting to light. EOMI. No scleral icterus. No conjunctival pallor. Normocephalic, atraumatic. No pharyngeal erythema. No thyromegaly. -CARDIOVASCULAR: S1 and S2 present. No murmurs, rubs, or gallops. Sternal vertical wound is dry and clean PULMONARY: Chest is clear to auscultation, no wheezing or crackles. ABDOMEN: Soft, nontender, nondistended, normoactive bowel sounds. No palpable organomegaly. MUSCULOSKELETAL: No joint swelling or deformity. EXTREMITIES: No cyanosis, clubbing, or pedal edema. NEUROLOGICAL: Gross neurological examination did not reveal any focal deficits. SKIN: No rashes. No petechiae Results CBC & Chem 7: 12/11/19 18:41 12/11/19 18:41 Labs: Abnormal Lab Results - Last 24 Hours (Table) 12/11/19 12/11/19 12/12/19 Range/Units 18:41 18:41 06:53 RBC 3.97 L (4.30-5.90) m/uL Hgb 12.5 L (13.0-17.5) gm/dL Monocytes # (Manual) 1.02 H (0-1.0) k/uL Sodium 133 L (137-145) mmol/L BUN 33 H (9-20) mg/dL Creatinine 2.24 H (0.66-1.25) mg/dL Glucose 103 H (74-99) mg/dL POC Glucose (mg/dL) 121 H (75-99) mg/dL Alkaline Phosphatase 133 H (38-126) U/L Thrombosis Risk Factor Assmnt - Choose All That Apply Each Factor Represents 1 point: History of prior major surgery (<1month) Other Risk Factors: Yes Each Risk Factor Represents 2 Points: Age 61-74 years Thrombosis Risk Factor Assessment Total Risk Factor Score: 3 Thrombosis Risk Factor Assessment Level: Moderate Risk Assessment and Plan Assessment: -Chest pain, rule out cardiac causes -Acute kidney injury -Metabolic encephalopathy secondary to above, on the top of history of subacute stroke involving multiple patchy areas in the left MCA vascular territory. -Recent Coronary artery disease and non-ST elevation myocardial infarction st atus post CABG 5 vessel -status post permanent pacemaker placement due to Persistant Bradycardia. -h/o bilateral pleural effusions status post bilateral chest tube placement -atrial fibrillation and RVR; remains rate controlled -Type 2 diabetes; and insulin -Peripheral vessel occlusive disease with prior peripheral stent placement. -Moderate severe COPD FEV1 of 60%; not in exacerbation Plan: This is a pleasant 64 years old male who presents with chest pain and aching type. Producing troponins and EKGs. Continue with aspirin and Plavix. Continue with nitroglycerin. Continue with Cardizem and amiodarone. Cardiology consult. Continue with IV fluid and follow-up creatinine level. Check bladder scan and renal ultrasound. we'll do CAT scan of the brain in view of his dual antiplatelet therapy, also in view of his history of stroke Labs and medication were reviewed.. Continue same treatment. Continue with symptomatic treatment. Resume home medication. Monitor lytes and vitals. DVT and GI prophylaxis. Further recommendations of the clinical course of the patient DVT prophylaxis: Subcutaneous heparin GI Prophylaxis: Ppi Prognosis is guarded
[2019-12-12] MEDS ORDERED: AMIODARONE 200 MG TAB PO SCH (09:00)
[2019-12-12] MEDS ORDERED: LOSARTAN 25 MG TAB PO SCH (09:00)
[2019-12-12] MEDS: INSULIN ASPART (NovoLOG) 100 UNIT/ML VIAL SQ SCH ×4 (09:06→22:26)
[2019-12-12] MEDS: LACTOBACILLUS ACIDOPH & BULGAR 1 EACH PACKET PO SCH ×3 (09:07→17:46)
[2019-12-12] MEDS: HEPARIN SODIUM,PORCINE 5,000 UNIT/ML 1 ML VIAL SQ SCH ×2 (09:20→15:31)
[2019-12-12] MEDS: ASPIRIN 81 MG PO SCH (09:21)
[2019-12-12] MEDS: MULTIVITAMINS, THERA 1 EACH TAB PO SCH (09:21)
[2019-12-12] MEDS: FOLIC ACID 1 MG TAB PO SCH (09:22)
[2019-12-12] MEDS: CLOPIDOGREL 75 MG TAB PO SCH (09:22)
[2019-12-12] MEDS: CHOLECALCIFEROL 1,000 UNIT TAB PO SCH (09:22)
[2019-12-12] MEDS: PANTOPRAZOLE 40 MG TABLET PO SCH (09:22)
[2019-12-12] MEDS: ASCORBIC ACID 500 MG TAB PO SCH (09:22)
[2019-12-12] MEDS: THIAMINE 100 MG TAB PO SCH (09:22)
[2019-12-12] MEDS: LINAGLIPTIN 5 MG TABLET PO SCH (09:23)
--- NOTE | 2019-12-12 10:39 | P.CRDCN ---
History of Present Illness Consult date: 12/12/19 Requesting physician: Carmenza Ro Reason for Consult (text): acute chest pain, recent CABG Chief complaint: patient unsure, confused History of present illness: This is a 64-year-old gentleman with history of hypertension, hyperlipidemia, CAD, COPD, diabetes mellitus, was recently discharged from the hospital status post CABG. who was admitted last month with non-ST elevation NM and underwent cardiac catheterization which showed severe triple-vessel disease. He subsequently underwent CABG with GR to the LAD, left radial artery to obtuse marginal, vein graft to posterior lateral, being graft to first and second diagonal. His postoperative course was quite lengthy and complicated. He ended up developing some postoperative atrial fibrillation and was initiated on amiodarone. He had severe bradycardia and underwent placement of a dual-chamber pacemaker. He also had some confusion at that time as well and was seen by neurology who recommended MRI to rule out stroke but this was unable to be completed due to the pacemaker implantation. He was discharged to an [facility] for rehab. Apparently yesterday he developed some sudden chest discomfort and rated 9 out of 10. Upon questioning I asked the patient if he had chest pain and he said "maybe". He responded the same way when asked about shortness of breath. Chest x-ray on admission showed no active cardiopulmonary disease with clearing of tiny right sided pneumothorax compared to old exam, normal heart. EKG showed sinus rhythm with ST-T wave abnormalities that I am not able to compare to old EKGs due to inability to load them. Troponins Normal 3, NT ProBNP 800 and Evidence of Acute Kidney Injury with a BUN of 33, Creatinine 2.24 and an Estimated GFR of 30. The patient is very confused and examination. He is on aware of the year, thinks he is at [facility]. According to the nursing staff make him up to go to the bathroom last night he got down on all fours and was crawling and scratching at the floor. Past Medical History Past Medical History: Coronary Artery Disease (CAD), Cancer, Chest Pain / Angina, Diabetes Mellitus, Hypertension, Myocardial Infarction (NM), Skin Disorder Additional Past Medical History / Comment(s): Intermittent BILATERAL CLAUDICATION & NEW OCCURRENCE OF LEFT PLANTAR FASCITIS (DIFFICULT TO WALK). Hx of bladder ca with surgery, psoriases,eczema, hiatal hernia, umbilical hernia, kidney stones 2004. Last Myocardial Infarction Date:: 2015 History of Any Multi-Drug Resistant Organisms: None Reported Past Surgical History: Coronary Bypass/CABG, Heart Catheterization With Stent Additional Past Surgical History / Comment(s): 10/20/15 last CARDIAC STENT-has had several previous cardiac stents, vasectomy, bladder sx x2 to remove tumors. L femoral artherectomy/STENT TO LT common ILIAC artery, 05/22/16 R femoral/popliteal atherectomy with PTBA/stent, angiograms, aortogram with run off. Past Anesthesia/Blood Transfusion Reactions: No Reported Reaction Additional Past Anesthesia/Blood Transfusion Reaction / Comment(s): CLAUSTROPHOBIC IN LARGE CROWDS Date of Last Stent Placement:: 10/20/15 Past Psychological History: No Psychological Hx Reported Smoking Status: Former smoker Past Alcohol Use History: None Reported Additional Past Alcohol Use History / Comment(s): pt states smokes 1/2 to a full pack a day, smokes majijauna on occasion Past Drug Use History: Marijuana - Past Family History Father Family Medical History: Myocardial Infarction (NM) Additional Family Medical History / Comment(s): PT'S DAD WHEN PT WAS AGE 4 he believes from a myocardial infarction. Mother Family Medical History: Diabetes Mellitus, Hyperlipidemia, Hypertension, Vascular Disorder Medications and Allergies Home Medications Medication Instructions Recorded Confirmed Type Cholecalciferol [Vitamin D3 (25 1,000 unit PO DAILY #0 11/01/19 12/11/19 History Mcg = 1000 Iu)] Multivitamins, Thera [Multivitamin 1 tab PO DAILY 11/01/19 12/11/19 History (formulary)] Aspirin 81 mg PO DAILY #30 chew 11/04/19 12/11/19 Rx Ascorbic Acid [Vitamin C] 500 mg PO DAILY 11/05/19 12/11/19 History Acetaminophen Tab [Tylenol] 1,000 mg PO Q6HR PRN tab 12/03/19 12/11/19 Rx Amiodarone [Cordarone] 200 mg PO DAILY tab 12/03/19 12/11/19 Rx Clopidogrel [Plavix] 75 mg PO DAILY tab 12/03/19 12/11/19 Rx Furosemide [Lasix] 40 mg PO DAILY tab 12/03/19 12/11/19 Rx Heparin Sodium,Porcine [Heparin 5,000 unit SQ Q8HR vial 12/03/19 12/11/19 Rx Sodium] Ipratropium-Albuterol Nebulize 3 ml INHALATION RT-Q2H PRN ml 12/03/19 12/11/19 Rx [Duoneb 0.5 mg-3 mg/3 ml Soln] Ipratropium-Albuterol Nebulize 3 ml INHALATION RT-QID ml 12/03/19 12/11/19 Rx [Duoneb 0.5 mg-3 mg/3 ml Soln] Linagliptin [Tradjenta] 5 mg PO DAILY tablet 12/03/19 12/11/19 Rx Losartan [Cozaar] 25 mg PO DAILY tab 12/03/19 12/11/19 Rx SILVER sulfADIAZINE CREAM 1 applic TOPICAL BID applic 12/03/19 12/11/19 Rx [Silvadene Cream] Metoprolol Tartrate 25 mg PO BID #60 tab 12/06/19 12/11/19 Rx Atomoxetine HCl [Strattera] 40 mg PO HS 12/11/19 12/11/19 History Diltiazem Cd [Cardizem CD] 120 mg PO DAILY 12/11/19 12/11/19 History INSULIN ASPART (NovoLOG) [NovoLOG 2 unit SQ ACHS 12/11/19 12/11/19 History (formulary)] Insulin Detemir (Levemir) [Levemir] 20 unit SQ HS 12/11/19 12/11/19 History Lactobacillus Acidoph & Bulgar 1 tab PO TID-W/MEALS 12/11/19 12/11/19 History [Lactinex] Pantoprazole [Protonix] 40 mg PO DAILY 12/11/19 12/11/19 History QUEtiapine [SEROquel] 12.5 mg PO HS 12/11/19 12/11/19 History Allergies Allergy/AdvReac Type Severity Reaction Status Date / Time ragweed pollen Allergy Unknown Verified 12/11/19 21:02 Physical Exam Vitals: Vital Signs Temp Pulse Pulse Resp BP BP Pulse Ox 12/12/19 09:19 77 105/65 12/12/19 09:00 97.3 F L 77 16 95/65 100 12/12/19 03:00 97.5 F L 71 16 127/72 100 12/12/19 01:15 91 25 H 139/80 100 12/11/19 23:52 97.5 F L 71 16 114/65 100 12/11/19 21:06 97.3 F L 65 14 103/63 100 12/11/19 20:45 97.3 F L 65 14 103/63 100 12/11/19 20:00 98.2 F 64 16 99/48 100 12/11/19 19:23 62 20 118/75 100 12/11/19 19:00 60 14 102/64 100 12/11/19 18:32 66 12/11/19 18:25 98.0 F 67 16 102/64 99 Intake and Output 12/11/19 12/12/19 12/12/19 22:59 06:59 14:59 Intake Total 400 Balance 400 Intake: Oral 400 Other: Voiding Method Urinal Urinal Weight 81.647 kg PHYSICAL EXAMINATION: This is a 64-year-old male in no apparent distress at the time of my examination. Speaking in a whisper and quite confused. VITAL SIGNS: Blood pressure 105/65, heart rate 77, respirations 16, temp 97.3F. Patient is 100 % on room air. HEENT: Head is atraumatic, normocephalic. Pupils are equal, round. Sclerae anicteric. Conjunctivae are clear. Mucous membranes of the mouth are moist. Neck is supple. There is no elevated jugular venous pressure. No carotid bruit is heard. CHEST EXAMINATION: Clear to auscultation bilaterally. No wheezes rales or rhonchi. Respirations even and nonlabored. HEART EXAMINATION: Heart regular, positive S1 and S2. No S3. No S4. No clicks, rubs or murmurs. ABDOMEN: Soft, nontender. Bowel sounds are heard. No organomegaly noted. EXTREMITIES: 2+ peripheral pulses with no evidence of peripheral edema and no calf tenderness noted. NEUROLOGIC EXAMINATION: Patient is awake, alert and oriented x1. Results 12/11/19 18:41 12/11/19 18:41 Cardiac Enzymes 12/11/19 12/11/19 12/11/19 Range/Units 18:41 18:41 22:10 AST 39 (17-59) U/L Troponin I 0.032 0.025 (0.000-0.034) ng/mL 12/12/19 Range/Units 00:29 AST (17-59) U/L Troponin I 0.024 (0.000-0.034) ng/mL Coagulation 12/11/19 Range/Units 18:41 PT 11.1 (9.0-12.0) sec APTT 26.5 (22.0-30.0) sec CBC 12/11/19 Range/Units 18:41 WBC 7.3 (3.8-10.6) k/uL RBC 3.97 L (4.30-5.90) m/uL Hgb 12.5 L (13.0-17.5) gm/dL Hct 39.1 (39.0-53.0) % Plt Count 332 (150-450) k/uL Comprehensive Metabolic Panel 12/11/19 Range/Units 18:41 Sodium 133 L (137-145) mmol/L Potassium 4.2 (3.5-5.1) mmol/L Chloride 100 (98-107) mmol/L Carbon Dioxide 22 (22-30) mmol/L BUN 33 H (9-20) mg/dL Creatinine 2.24 H (0.66-1.25) mg/dL Glucose 103 H (74-99) mg/dL Calcium 9.1 (8.4-10.2) mg/dL AST 39 (17-59) U/L ALT 49 (4-49) U/L Alkaline Phosphatase 133 H (38-126) U/L Total Protein 6.9 (6.3-8.2) g/dL Albumin 3.7 (3.5-5.0) g/dL Current Medications Generic Name Dose Route Start Last Admin Trade Name Freq PRN Reason Stop Dose Admin Acetaminophen 1,000 mg 12/12/19 00:39 Tylenol Tab PO Q6HR PRN Fever and/ or Pain Hydrocodone Bitart/Acetaminophen 1 each 12/12/19 00:41 [place] 5-325 PO Q6HR PRN Pain Albuterol/Ipratropium 3 ml 12/12/19 08:00 12/12/19 07:46 Duoneb 0.5 Mg-3 Mg/3 Ml Soln INHALATION Not Given RT-QID YVAN Albuterol/Ipratropium 3 ml 12/12/19 00:39 Duoneb 0.5 Mg-3 Mg/3 Ml Soln INHALATION RT-Q2H PRN Shortness Of Breath Or Wheezing Alprazolam 0.25 mg 12/12/19 00:41 12/12/19 02:25 Xanax PO 0.25 mg TID PRN Administration Anxiety Ascorbic Acid 500 mg 12/12/19 09:00 12/12/19 09:22 Vitamin C PO 500 mg DAILY YVAN Administration Aspirin 81 mg 12/12/19 09:00 12/12/19 09:21 Aspirin PO 81 mg DAILY YVAN Administration Cholecalciferol 1,000 unit 12/12/19 09:00 12/12/19 09:22 Vitamin D3 (25 Mcg = 1000 Iu) PO 1,000 unit DAILY YVAN Administration Clopidogrel Bisulfate 75 mg 12/12/19 09:00 12/12/19 09:22 Plavix PO 75 mg DAILY [facility] Administration Diltiazem HCl 120 mg 12/12/19 09:00 Cardizem Cd PO DAILY [facility] Folic Acid 1 mg 12/12/19 12:00 12/12/19 09:22 Folic Acid PO 1 mg DAILY@1200 YVAN Administration Heparin Sodium (Porcine) 5,000 unit 12/12/19 08:00 12/12/19 09:20 Heparin SQ 5,000 unit Q8HR [facility] Administration Sodium Chloride 1,000 mls @ 50 mls/hr 12/11/19 20:15 12/11/19 20:15 Saline 0.9% IV 50 mls/hr .Q20H [facility] Administration Insulin Aspart 2 unit 12/12/19 07:30 12/12/19 09:06 Novolog SQ Not Given ACHS [facility] Insulin Detemir 20 unit 12/12/19 21:00 Levemir SQ HS [facility] Lactobacillus Acidoph/Bulgaricus 1 each 12/12/19 07:30 12/12/19 09:07 Lactinex PO Not Given TID-W/MEALS [facility] Linagliptin 5 mg 12/12/19 09:00 12/12/19 09:23 Tradjenta PO 5 mg DAILY [facility] Administration Metoprolol Tartrate 25 mg 12/12/19 09:00 Lopressor PO BID [facility] Multivitamins 1 each 12/12/19 09:00 12/12/19 09:21 Theragran PO 1 each DAILY [facility] Administration Naloxone HCl 0.2 mg 12/11/19 20:07 Narcan IV Q2M PRN Opioid Reversal Atomoxetine Hcl [ 40 mg 12/12/19 21:00 Strattera] 40 Mg PO HS [facility] Pantoprazole Sodium 40 mg 12/12/19 09:00 12/12/19 09:22 Protonix PO 40 mg DAILY YVAN Administration Quetiapine Fumarate 12.5 mg 12/12/19 21:00 Seroquel PO HS YVAN Silver Sulfadiazine 1 applic 12/12/19 09:00 12/12/19 09:24 Silvadene Cream TOPICAL 1 applic BID YVAN Administration Thiamine HCl 100 mg 12/12/19 12:00 12/12/19 09:22 Vitamin B-1 PO 100 mg DAILY@1200 YVAN Administration Intake and Output 12/11/19 12/12/19 12/12/19 22:59 06:59 14:59 Intake Total 400 Balance 400 Intake: Oral 400 Other: Voiding Method Urinal Urinal Weight 81.647 kg 12/11/19 18:41 12/11/19 18:41 Assessment and Plan Assessment: #1 significant confusion and delirium #2 CAD with recent CABG #3 severe bradycardia with recent pacemaker implantation #4 hypertension currently with hypotension #5 hyperlipidemia #6 acute kidney injury Plan: From cardiology's perspective we will stop the losartan. We will check a TSH. We will stop amiodarone as this could be contributing to some of his confusion. We will continue to follow the patient and provide further recommendations accordingly. MEDIA LIBRARIAN note has been reviewed, I agree with a documented findings and plan of care. Patient was seen and examined.
[2019-12-12 11:50] LABS: Glucose,Whole Blood 104 mg/dL (75-99)
[2019-12-12 12:06] LABS: HCT 40.2 % (39.0-53.0); HGB 12.4 gm/dL (13.0-17.5); Hypochromasia Slight; MCH 30.4 pg (25.0-35.0); MCHC 30.9 g/dL (31.0-37.0); MCV 98.2 fL (80.0-100.0); Mean Platelet Volume 8.1; Platelet Count 305 k/uL (150-450); RBC 4.09 m/uL (4.30-5.90); RDW 14.2 % (11.5-15.5); WBC 7.8 k/uL (3.8-10.6)
[2019-12-12 12:14] LABS: Calcium 8.9 mg/dL (8.4-10.2); Potassium 4.1 mmol/L (3.5-5.1)
--- NOTE | 2019-12-12 12:32 | P.NPCON ---
History of Present Illness - Reason for Consult Consult date: 12/12/19 acute renal failure - Chief Complaint Shortness of breath and chest pain - History of Present Illness 64-year-old gentleman recently discharged from the hospital was admitted large. Coming to the hospital with the above complaints. He has a baseline creatinine of 0.9 MG per DL. History of recent contrast studies NSAID use. No nausea vomiting or diarrhea. He is on multiple antihypertensive regimen including losartan and Lasix. Peak creatinine of 2.2. Started on IV fluids started improving to 1.79 MG per DL today. Review of Systems Constitutional: Reports as per HPI Past Medical History Past Medical History: Coronary Artery Disease (CAD), Cancer, Chest Pain / Angina, Diabetes Mellitus, Hypertension, Myocardial Infarction ([place]), Skin Disorder Additional Past Medical History / Comment(s): Intermittent BILATERAL CLAUDICATION & NEW OCCURRENCE OF LEFT PLANTAR FASCITIS (DIFFICULT TO WALK). Hx of bladder ca with surgery, psoriases,eczema, hiatal hernia, umbilical hernia, kidney stones 2004. Last Myocardial Infarction Date:: 2015 History of Any Multi-Drug Resistant Organisms: None Reported Past Surgical History: Coronary Bypass/CABG, Heart Catheterization With Stent Additional Past Surgical History / Comment(s): 10/20/15 last CARDIAC STENT-has had several previous cardiac stents, vasectomy, bladder sx x2 to remove tumors. L femoral artherectomy/STENT TO LT common ILIAC artery, 05/22/16 R femoral/popliteal atherectomy with PTBA/stent, angiograms, aortogram with run off. Past Anesthesia/Blood Transfusion Reactions: No Reported Reaction Additional Past Anesthesia/Blood Transfusion Reaction / Comment(s): CLAUSTROPHOBIC IN LARGE CROWDS Date of Last Stent Placement:: 10/20/15 Past Psychological History: No Psychological Hx Reported Smoking Status: Former smoker Past Alcohol Use History: None Reported Additional Past Alcohol Use History / Comment(s): pt states smokes 1/2 to a full pack a day, smokes majijauna on occasion Past Drug Use History: Marijuana - Past Family History Father Family Medical History: Myocardial Infarction (ND) Additional Family Medical History / Comment(s): PT'S DAD WHEN PT WAS AGE 4 he believes from a myocardial infarction. Mother Family Medical History: Diabetes Mellitus, Hyperlipidemia, Hypertension, Vascular Disorder Medications and Allergies Home Medications Medication Instructions Recorded Confirmed Type Cholecalciferol [Vitamin D3 (25 1,000 unit PO DAILY #0 11/01/19 12/11/19 History Mcg = 1000 Iu)] Multivitamins, Thera [Multivitamin 1 tab PO DAILY 11/01/19 12/11/19 History (formulary)] Aspirin 81 mg PO DAILY #30 chew 11/04/19 12/11/19 Rx Ascorbic Acid [Vitamin C] 500 mg PO DAILY 11/05/19 12/11/19 History Acetaminophen Tab [Tylenol] 1,000 mg PO Q6HR PRN tab 12/03/19 12/11/19 Rx Amiodarone [Cordarone] 200 mg PO DAILY tab 12/03/19 12/11/19 Rx Clopidogrel [Plavix] 75 mg PO DAILY tab 12/03/19 12/11/19 Rx Furosemide [Lasix] 40 mg PO DAILY tab 12/03/19 12/11/19 Rx Heparin Sodium,Porcine [Heparin 5,000 unit SQ Q8HR vial 12/03/19 12/11/19 Rx Sodium] Ipratropium-Albuterol Nebulize 3 ml INHALATION RT-Q2H PRN ml 12/03/19 12/11/19 Rx [Duoneb 0.5 mg-3 mg/3 ml Soln] Ipratropium-Albuterol Nebulize 3 ml INHALATION RT-QID ml 12/03/19 12/11/19 Rx [Duoneb 0.5 mg-3 mg/3 ml Soln] Linagliptin [Tradjenta] 5 mg PO DAILY tablet 12/03/19 12/11/19 Rx Losartan [Cozaar] 25 mg PO DAILY tab 12/03/19 12/11/19 Rx SILVER sulfADIAZINE CREAM 1 applic TOPICAL BID applic 12/03/19 12/11/19 Rx [Silvadene Cream] Metoprolol Tartrate 25 mg PO BID #60 tab 12/06/19 12/11/19 Rx Atomoxetine HCl [Strattera] 40 mg PO HS 12/11/19 12/11/19 History Diltiazem Cd [Cardizem CD] 120 mg PO DAILY 12/11/19 12/11/19 History INSULIN ASPART (NovoLOG) [NovoLOG 2 unit SQ ACHS 12/11/19 12/11/19 History (formulary)] Insulin Detemir (Levemir) [Levemir] 20 unit SQ HS 12/11/19 12/11/19 History Lactobacillus Acidoph & Bulgar 1 tab PO TID-W/MEALS 12/11/19 12/11/19 History [Lactinex] Pantoprazole [Protonix] 40 mg PO DAILY 12/11/19 12/11/19 History QUEtiapine [SEROquel] 12.5 mg PO HS 12/11/19 12/11/19 History Allergies Allergy/AdvReac Type Severity Reaction Status Date / Time ragweed pollen Allergy Unknown Verified 12/11/19 21:02 Physical Exam Vitals: Vital Signs Temp Pulse Pulse Resp BP BP Pulse Ox 12/12/19 09:19 77 105/65 12/12/19 09:00 97.3 F L 77 16 95/65 100 12/12/19 03:00 97.5 F L 71 16 127/72 100 12/12/19 01:15 91 25 H 139/80 100 12/11/19 23:52 97.5 F L 71 16 114/65 100 12/11/19 21:06 97.3 F L 65 14 103/63 100 12/11/19 20:45 97.3 F L 65 14 103/63 100 12/11/19 20:00 98.2 F 64 16 99/48 100 12/11/19 19:23 62 20 118/75 100 12/11/19 19:00 60 14 102/64 100 12/11/19 18:32 66 12/11/19 18:25 98.0 F 67 16 102/64 99 Intake and Output 12/11/19 12/12/19 12/12/19 22:59 06:59 14:59 Intake Total 400 Balance 400 Intake: Oral 400 Other: Voiding Method Urinal Urinal Urinal Weight 81.647 kg No acute distress S1-S2 heard Lungs clear abdomen soft No edema Results - Lab Results Most recent lab results Calcium 8.9 mg/dL (8.4-10.2) 12/12/19 11:47 Magnesium 1.9 mg/dL (1.6-2.3) 12/11/19 18:41 12/11/19 18:41 12/12/19 11:47 Assessment and Plan Assessment: #1 nonoliguric acute kidney injury from prerenal process progressing to ATN. His line creatinine 0.9 MG per DL #2 hypotensive episodes on multiple antihypertensive medications #3 coronary artery disease status post CABG Plan: #1 agree with holding all antihypertensive medications including diuretics. #2 continue with IV fluids normal saline at 50 ML's an hour. #3 check bladder scan to rule out urinary retention #4 strict ins and outs #5 labs in the morning #6 avoid nephrotoxic agents and hypotensive episodes
[2019-12-12 12:54] LABS: Eosinophils # (M) 0.55 k/uL (0-0.7); Lymphocytes # (M) 2.26 k/uL (1.0-4.8); Monocytes # (M) 0.62 k/uL (0-1.0); Neutrophils # (M) 4.37 k/uL (1.3-7.7); Neutrophils % (M) 56 %; Nucleated Red Blood Cells 0 /100 WBC (0-0); Total Cells Counted 100
--- NOTE | 2019-12-12 14:01 | CT ---
EXAMINATION TYPE: CT brain wo con DATE OF EXAM: 12/12/2019 COMPARISON: 11/17/2019 HISTORY: 64-year-old male Confusion, ruling out CVA TECHNIQUE: Examination was done in axial plane without intravenous contrast. Coronal and sagittal r econstructions performed. CT DLP: 1033.9 mGycm Automated exposure control for dose reduction was used. FINDINGS: There is no evidence of acute intracranial hemorrhage, acute ischemic changes, mass, mass-effect, or extra-axial fluid collection. There is no effacement of cerebral sulci or basal subarachnoid cister ns. There is no hydrocephalus. There is no midline shift. Metcalf-white matter distinction is preserv ed. Atherosclerotic calcifications within the bilateral carotid siphons. Patchy signal change within the left periatrial deep white matter seems to have shown improvement from 11/17/2019. Lacunar infarcts in the bilateral basal ganglia. Background of mild patchy periventricular white matter hypodensity. Rightward nasal septal deviation. Paranasal sinuses and mastoid air cells well pneumatized. Orbits an d globes are intact. IMPRESSION: 1. Some improvement in the hypodensity seen within the left periatrial white matter on 11/17/2019. Yogi lution to now chronic appearance of previous subacute infarcts not excluded. 2. Old bilateral basal ganglionic lacunar infarcts and mild patchy burden of chronic small vessel isc hemic disease. 3. No acute intracranial abnormality seen. If concern for subtle acute ischemia, follow-up MRI.
[2019-12-12] MEDS: SODIUM CHLORIDE 0.9% 1,000 ML IV SCH (15:31)
[2019-12-12] MEDS: ATORVASTATIN 20 MG TAB PO SCH (15:31)
[2019-12-12] MEDS: DILTIAZEM CD 120 MG CAP.ER.24H PO SCH (15:31)
[2019-12-12] MEDS: METOPROLOL TARTRATE 25 MG TAB PO SCH ×2 (15:38→22:26)
--- NOTE | 2019-12-12 16:27 | PN ---
PROGRESS NOTE DATE OF SERVICE: 12/12/2019 This is a 64-year-old gentleman who was admitted with chest pain and also had multiple other medical issues with acute renal failure. The patient also had recent CABG with multiple complications including bilateral pleural effusion which was also drained. The patient also had pacemaker implantation. The CT scan of the brain was noted which showed some hypodensity which is on the left periatrial white matter. A subacute infarct not excluded. Old bilateral basal ganglionic lacunar infarct also noted. PAST MEDICAL HISTORY: Reviewed. REVIEW OF SYSTEMS: Could not be taken. The patient is confused. MEDS INCLUDE: 1. Tylenol. 2. [place] 5 mg. 3. DuoNeb q.i.d. and p.r.n. 4. Xanax. 5. Vitamin C. 6. Aspirin. 7. Vitamin D3. 8. Plavix. 9. Cardizem CD. 10.Folic acid. 11.Heparin. 12.Levemir. 13.Lactinex. 14.Tradjenta. 15.Lopressor. 16.Multivitamins. 17.Narcan. 18.Seroquel. PHYSICAL EXAM: Patient is alert, oriented x2. Pulse is 77, blood pressure 95/64, respiration 16, temperature 97.3, pulse ox 100 percent on room air. HEENT: Conjunctivae are normal. NECK: No jugular venous distention. No lymph node enlargement. CARDIOVASCULAR: S1, S2, muffled. RESPIRATORY: Diminished breath sounds at the bases. A few scattered rhonchi and crackles. ABDOMEN: Soft, nontender. LEGS: No edema, no swelling. NERVOUS SYSTEM: Diffuse weak. LABORATORY DATA: WBC 7.1, hemoglobin 19.4, sodium 135, creatinine is 1.79. ASSESSMENT: 1. Chest pain for evaluation, rule out coronary artery disease, possibly musculoskeletal. 2. Acute renal failure possibly prerenal acute tubular necrosis. 3. Change in mental status, possibly acute on chronic metabolic encephalopathy or delirium. 4. Old bilateral base ganglionic lacunar infarct and chronic small-vessel disease in the CT scan. 5. Possible left periatrial white matter subacute infarct to be ruled out. 6. Recent coronary artery disease with coronary artery bypass graft x4. 7. Recent bilateral pleural effusion with chest tube drainage. 8. History of diabetes type 2. 9. Hypertension. 10.History of myocardial infarction. 11.Intermittent bilateral claudication. 12.History of nicotine dependence. 13.History of psoriasis. 14.History of hiatal hernia. 15.History of coronary artery disease with stent. 16.History of peripheral vascular disease. 17.History of THC. 18.Full code. RECOMMENDATIONS AND DISCUSSION: In this 64-year-old gentleman who presented with multiple complex medical issues, we will monitor the patient closely. Continue the current management and continue symptomatic treatment. Continue with antiplatelet agents. Continue with supplements and vitamins. Otherwise follow closely with multiple consultants. I would also recommend a neurology evaluation and possible further evaluation regarding the stroke. A 2D echo with Doppler was ordered. I would also recommend a carotid ultrasound also. Guarded prognosis. Further recommendations to follow. Discussed with family at length. The also request to be looking into whether Cardizem is causing the confusion because she witnessed that immediately after receiving the Cardizem about a few hours later, the patient got severely confused. I recommend to follow up on that and keep checking other medications as well in the ECF also, to correlate with any significant changes in the mentation associated with any particular medications intake, but it seems to me like the patient has multifactorial etiology for change in mental status, as mentioned above. Further recommendations to follow. MMODL / IJN: [id number] /
[2019-12-12 17:12] LABS: Glucose,Whole Blood 156 mg/dL (75-99)
[2019-12-12 17:27] LABS: Appearance,Urine Clear (Clear); Color,Urine Amber
[2019-12-12 17:28] LABS: Bilirubin,Urine Negative (Negative); Blood,Urine Negative (Negative); Glucose,Urine (UA) Negative (Negative); Ketones,Urine 1+ (Negative); Leukocyte Esterase,Urine Negative (Negative); Nitrite,Urine Negative (Negative); Protein,Urine Negative (Negative); Urobilinogen,Urine <2.0 mg/dL (<2.0)
--- NOTE | 2019-12-12 18:56 | US ---
EXAMINATION TYPE: US carotid duplex BILAT DATE OF EXAM: 12/12/2019 COMPARISON: 2019 CLINICAL HISTORY: stroke. Stroke, exam done portable. EXAM MEASUREMENTS: RIGHT: Peak Systolic Velocity (PSV) cm/sec ----- Right CCA: 42.6 ----- Right ICA: 85.3 ----- Right ECA: 265.0 ICA/CCA ratio: 2.0 RIGHT: End Diastole cm/sec ----- Right CCA: 11.3 ----- Right ICA: 19.1 ----- Right ECA: 24.7 LEFT: Peak Systolic Velocity (PSV) cm/sec ----- Left CCA: 64.4 ----- Left ICA: 106.0 ----- Left ECA: 154.0 ICA/CCA ratio: 1.3 LEFT: End Diastole cm/sec ----- Left CCA: 7.9 ----- Left ICA: 21.4 ----- Left ECA: 0.0 VERTEBRALS (direction of flow): Right Vertebral: Antegrade Left Vertebral: Antegrade Rhythm: Normal Elevated velocities: right prox ECA and left prox ECA, Right ICA/CCA ratio 2.0 IMPRESSION: There is antegrade flow in the vertebral arteries. There is elevated right and left exte rnal carotid artery velocity suggestive of more than 70% stenosis. The images and measurements sugge st 20-30% stenosis in both internal carotid arteries. Criteria for Assigning % of Stenosis / Diameter reduction (Estimation based on the indirect measurements of the internal carotid artery velocities (ICA PSV). 1. Normal (no stenosis)=ICA PSV < 125 cm/s: ratio < 2.0: ICA EDV<40 cm/s. 2. Less than 50% stenosis=ICA PSV < 125 cm/s: ratio < 2.0: ICA EDV<40 cm/s. 3. 50 to 69% stenosis=ICA PSV of 125 to 230 cm/s: ration 2.0 ? 4.0: ICA EDV 40-100 cm/s. 4. Greater than 70% stenosis to near occlusion= ICA PSV > 230 cm/s: ratio > 4.0: ICA EDV > 100 cm/s. 5. Near occlusion= ICA PSV velocities may be low or undetectable: variable ratio and ICA EDV. 6. Total occlusion=unable to detect flow.
[2019-12-12] MEDS ORDERED: INSULIN DETEMIR (LEVEMIR) 100 UNIT/ML SYR SQ SCH (21:00)
[2019-12-12 22:21] LABS: Glucose,Whole Blood 161 mg/dL (75-99)
[2019-12-12] MEDS: QUEtiapine 25 MG TAB PO SCH (22:27)
[2019-12-12] MEDS: Atomoxetine Hcl [Strattera] 40 MG PO SCH (22:41)
[2019-12-13] MEDS: ALPRAZolam 0.25 MG TAB PO PRN (01:49)
[2019-12-13] MEDS: IPRATROPIUM-ALBUTEROL 3 ML NEB INHALATION SCH ×4 (06:00→19:10)
[2019-12-13 07:04] LABS: Glucose,Whole Blood 65 mg/dL (75-99)
[2019-12-13 07:27] LABS: Glucose,Whole Blood 68 mg/dL (75-99)
[2019-12-13 08:33] LABS: Calcium 9.1 mg/dL (8.4-10.2); Potassium 4.2 mmol/L (3.5-5.1)
[2019-12-13] MEDS: INSULIN ASPART (NovoLOG) 100 UNIT/ML VIAL SQ SCH ×4 (08:41→20:37)
[2019-12-13 08:42] LABS: HCT 40.4 % (39.0-53.0); HGB 12.6 gm/dL (13.0-17.5); Hypochromasia Moderate; MCH 30.9 pg (25.0-35.0); MCHC 31.2 g/dL (31.0-37.0); Mean Platelet Volume 7.6; Platelet Count 273 k/uL (150-450); RBC 4.08 m/uL (4.30-5.90); RDW 14.1 % (11.5-15.5); WBC 8.5 k/uL (3.8-10.6)
[2019-12-13 09:12] LABS: Lymphocytes # (M) 1.96 k/uL (1.0-4.8); Monocytes # (M) 1.28 k/uL (0-1.0); Neutrophils # (M) 5.27 k/uL (1.3-7.7); Neutrophils % (M) 62 %; Nucleated Red Blood Cells 0 /100 WBC (0-0); Total Cells Counted 100
[2019-12-13 09:16] LABS: Anisocytosis (M) Present; Poikilocytosis (M) Present
[2019-12-13] MEDS: PANTOPRAZOLE 40 MG TABLET PO SCH (09:22)
[2019-12-13] MEDS: CHOLECALCIFEROL 1,000 UNIT TAB PO SCH (09:22)
[2019-12-13] MEDS: ASPIRIN 81 MG PO SCH (09:22)
[2019-12-13] MEDS: CLOPIDOGREL 75 MG TAB PO SCH (09:22)
[2019-12-13] MEDS: ATORVASTATIN 20 MG TAB PO SCH (09:22)
[2019-12-13] MEDS: ASCORBIC ACID 500 MG TAB PO SCH (09:22)
[2019-12-13] MEDS: METOPROLOL TARTRATE 25 MG TAB PO SCH ×2 (09:22→20:38)
--- NOTE | 2019-12-13 09:30 | P.PN ---
Subjective Progress Note Date: 12/13/19 Principal diagnosis: CAD and status post CABG This is a 64-year-old gentleman with extensive past medical history consistent of coronary artery disease and prior coronary artery bypass grafting with extensive post operation course who was discharged home last week was brought ba hakan to the hospital with a change in mental status. We felt that this change in mental status was related to the amiodarone which was stopped. The patient was seen today, his mentation has improved. He is awake and oriented 3. He denies any symptoms of chest pain or chest discomfort or shortness of breath. His vitals overall seems to be stable. He is on maximize medical treatment except for the amiodarone. Objective - Vital Signs Vital signs: Vital Signs Temp 97.4 F L 12/13/19 08:14 Pulse 62 12/13/19 08:14 Resp 20 12/13/19 08:14 BP 152/73 12/13/19 08:14 Pulse Ox 100 12/13/19 08:14 Intake & Output 12/12/19 12/13/19 12/13/19 18:59 06:59 18:59 Intake Total 830 400 Output Total 415 Balance 415 400 Intake: Intake, IV Titration 350 400 Amount Sodium Chloride 0.9% 1, 350 400 000 ml @ 50 mls/hr IV . Q20H [facility] Rx#:[id number] Oral 480 Output: Urine 400 Post Void Residual 15 Other: Voiding Method Urinal Urinal # Voids 1 1 - Constitutional General appearance: Present: no acute distress - Respiratory Respiratory: bilateral: diminished - Cardiovascular Heart sounds: normal: S1, S2 - Labs CBC & Chem 7: 12/13/19 07:40 12/13/19 07:40 Labs: Abnormal Lab Results - Last 24 Hours (Table) 12/12/19 12/12/19 12/12/19 Range/Units 11:47 11:47 11:49 RBC 4.09 L (4.30-5.90) m/uL Hgb 12.4 L (13.0-17.5) gm/dL MCHC 30.9 L (31.0-37.0) g/dL Monocytes # (Manual) (0-1.0) k/uL Sodium 135 L (137-145) mmol/L BUN 30 H (9-20) mg/dL Creatinine 1.79 H (0.66-1.25) mg/dL Glucose 110 H (74-99) mg/dL POC Glucose (mg/dL) 104 H (75-99) mg/dL HDL Cholesterol (40-60) mg/dL 12/12/19 12/12/19 12/13/19 Range/Units 17:07 22:19 07:02 RBC (4.30-5.90) m/uL Hgb (13.0-17.5) gm/dL MCHC (31.0-37.0) g/dL Monocytes # (Manual) (0-1.0) k/uL Sodium (137-145) mmol/L BUN (9-20) mg/dL Creatinine (0.66-1.25) mg/dL Glucose (74-99) mg/dL POC Glucose (mg/dL) 156 H 161 H 65 L (75-99) mg/dL HDL Cholesterol (40-60) mg/dL 12/13/19 12/13/19 12/13/19 Range/Units 07:25 07:40 07:40 RBC 4.08 L (4.30-5.90) m/uL Hgb 12.6 L (13.0-17.5) gm/dL MCHC (31.0-37.0) g/dL Monocytes # (Manual) 1.28 H (0-1.0) k/uL Sodium (137-145) mmol/L BUN (9-20) mg/dL Creatinine 1.34 H (0.66-1.25) mg/dL Glucose 57 L (74-99) mg/dL POC Glucose (mg/dL) 68 L (75-99) mg/dL HDL Cholesterol 39 L (40-60) mg/dL Assessment and Plan Assessment: Assessment #1 change in mental status which has improved #2 coronary artery disease and status post CABG #3 status post permanent pacemaker implantation #4 multiple comorbid conditions Plan #1 the patient mentation has improved #2 continue the current medical regimen
[2019-12-13 09:34] LABS: Glucose,Whole Blood 85 mg/dL (75-99)
[2019-12-13] MEDS: LACTOBACILLUS ACIDOPH & BULGAR 1 EACH PACKET PO SCH ×3 (10:30→17:17)
[2019-12-13] MEDS: HEPARIN SODIUM,PORCINE 5,000 UNIT/ML 1 ML VIAL SQ SCH ×4 (10:30→22:57)
--- NOTE | 2019-12-13 10:49 | ECHOF ---
Referral Reason:cad MEASUREMENTS -------- HEIGHT: 182.9 cm WEIGHT: 81.6 kg BP: 131/75 TR Vmax: 2.24 m/s TR maxP.10 mmHg RAP: 5.00 mmHg RVSP: 25.10 mmHg FINDINGS -------- Sinus rhythm. Echo done , Limited Study 11-22-19, Limited study for CAD. Overall left ventricular systolic function is low-normal with, an EF between 50 - 55 %. CONCLUSIONS -------- 1. Echo done , Limited Study 11-22-19, Limited study for CAD. 2. Overall left ventricular systolic function is low-normal with, an EF between 50 - 55 %. HAMMER RUNNER: Chasidy Hassan RDCS
[2019-12-13 11:46] LABS: Glucose,Whole Blood 94 mg/dL (75-99)
[2019-12-13] MEDS: FOLIC ACID 1 MG TAB PO SCH (12:12)
[2019-12-13] MEDS: THIAMINE 100 MG TAB PO SCH (12:12)
[2019-12-13] MEDS: MULTIVITAMINS, THERA 1 EACH TAB PO SCH (12:12)
[2019-12-13] MEDS: LINAGLIPTIN 5 MG TABLET PO SCH (12:13)
[2019-12-13] MEDS: DILTIAZEM CD 120 MG CAP.ER.24H PO SCH (12:14)
[2019-12-13] MEDS: SODIUM CHLORIDE 0.9% 1,000 ML IV SCH (12:25)
--- NOTE | 2019-12-13 13:16 | PN ---
PROGRESS NOTE DATE OF SERVICE: 12/13/2019 This is a 64-year-old gentleman who was admitted with chest pain and had recent CAD, CABG and multiple complications including bilateral pleural effusion, chest tube drainage and pacemaker implantation also. The patient is currently confused. A CT scan of the brain showed possible old bilateral basal ganglia infarct, subacute infarct not ruled out. A carotid Doppler was also done which showed 20-30% stenosis in both internal carotid arteries. Cardiology has done a limited echocardiogram which showed ejection fraction about 50-55%. The patient is being closely monitored at this time. LABORATORY DATA: Lab adams, hemoglobin 12.6. Creatinine is still elevated 1.34, is slightly improved compared to the baseline. PAST MEDICAL HISTORY: Reviewed. REVIEW OF SYSTEMS: Could not be taken. The patient is confused. CURRENT MEDICATIONS: Tylenol p.r.n., [place], DuoNeb, Xanax, vitamin C, aspirin, Lipitor, vitamin D3, Plavix, Cardizem CD, folic acid, heparin, NovoLog, Levemir, Tradjenta, Lopressor, multivitamin, Protonix, Seroquel, Vitamin B1. PHYSICAL EXAM: GENERAL: Patient is alert, oriented x1. VITAL SIGNS: Pulse 64, blood pressure 130/74, respiration 20, temperature 97.6, pulse ox 99% on room air. HEENT: Conjunctivae normal. Oral mucous moist. NECK: No jugular venous distention. No carotid bruits. No lymph node enlargement. RESPIRATORY: Breath sounds diminished at the bases. A few scattered rhonchi and crackles. HEART: S1 and S2, muffled. ABDOMEN: Soft, no tenderness. No masses palpable. EXTREMITIES: No edema, no swelling. NERVOUS: Diffusely weak. No focal deficits. LABS: At this time shows WBC 8.2, hemoglobin 12.6, sodium 130, potassium 4.2, and glucose 57. ASSESSMENT: 1. Chest pain, rule out coronary artery disease, possibly musculoskeletal. 2. Acute renal failure possibly prerenal acute tubular necrosis. 3. Change in mental status possible acute on chronic metabolic encephalopathy with delirium. 4. Old bilateral basal ganglia lacunar infarct and chronic small ischemia in the CT scan, possible left parietal white matter subacute infarct to be ruled out. 5. History of recent coronary artery disease with coronary artery bypass graft x4. 6. History of recent bilateral pleural effusion and chest tube drainage. 7. History of permanent pacemaker implantation. 8. History of diabetes type 2. 9. Hypertension. 10.History of myocardial infarction. 11.History of intermittent bilateral claudication. 12.Minimal bilateral carotid stenosis about 20-30%. 13.History of nicotine dependence. 14.History of psoriasis. 15.History of hiatal hernia. 16.History of coronary artery disease with stent. 17.History of peripheral vascular disease. 18.History of THC. 19.FULL CODE. RECOMMENDATIONS AND DISCUSSION: Recommend to continue current medications, symptomatic treatment. Otherwise at this time continue the antiplatelet agents and Lipitor. Otherwise neurology consultation, possible MRI. The blood sugar is also fluctuating. We will discontinue the 2 units a.c. and at bedtime and I will reduce the 10 units to 5 units and instituted sliding scale. Guarded prognosis. Further recommendations to follow. MMODL / IJN: [id number] / MTDMarisa
--- NOTE | 2019-12-13 14:55 | P.CNNES ---
History of Present Illness Consult date: 12/13/19 Requesting physician: Carmenza Ro Reason for Consult: CVA, abnormal CT History of Present Illness: Patient is a 64-year-old male, well known to me from recent admission to the hospital, when he was seen on initial consultation on 11/17/2019 for altered mental status possible CVA. Patient was diagnosed with probable subacute stroke involving multiple patchy areas in the left MCA vascular territory after he had undergone a prior coronary artery bypass grafting surgery performed on 11/08/2019. Patient also had transient run of atrial fibrillation, therefore cardioembolic stroke was considered a possibility. Patient was placed on dual antiplatelet medications. Patient carotid Doppler head revealed 50-69% stenosis as per Carotid Doppler. No embolic source was found on 2-D echo. Patient has history of hypertension, diabetes, history of medical noncompliance and tobacco use. Patient had undergone pacemaker placement while in the hospital. MRI was never completed. Patient was discharged to [facility] on 12/03/2019. Patient now came to the hospital on 12/11/2019 for sudden onset of substernal chest pain which he rated 9/10. The nursing facility contacted patient's and he was brought to the hospital. had mentioned that patient had some P years of confusion over the past week. She believed it was secondary to Cardizem. Patient on arrival was alert and oriented 3. He denied any focal symptoms, nausea vomiting. Patient's chest x-ray showed no acute cardiopulmonary disease. These clearing of the tiny right-sided pneumothorax compared to old exam. Normal heart. CT head showed some improvement in the hypodensity seen within the left parietal white matter on 11/17/2019. Evolution to now chronic appearance of previous subacute infarcts not excluded. Old bilateral basal ganglionic lacunar infarcts and mild patchy burden of chronic small vessel ischemic disease. Carotid Doppler showed antegrade flow in vertebral arteries. 20-30% stenosis in both ICAs. Elevated right and left external carotid artery velocities suggestive of more than 70% stenosis. 2-D echo showed overall left ventricle systolic function is low normal with EF between 50-55%. EKG shows normal sinus rhythm. Patient's was also present, who states that patient has been having some issues after he takes Cardizem. She believes most of the symptoms are related to the use of Cardizem. No history of seizures, or staring spells. No tongue bite or loss of control of urine. Review of Systems Fatigue. Myalgia. Some headache, confusion. Denies chest pain at this time. Denies any numbness tingling. Denies any nausea vomiting diarrhea. All other review of systems unremarkable. Past Medical History Past Medical History: Coronary Artery Disease (CAD), Cancer, Chest Pain / Angina, Diabetes Mellitus, Hypertension, Myocardial Infarction (DC), Skin Disorder Additional Past Medical History / Comment(s): Intermittent BILATERAL CLAUDICATION & NEW OCCURRENCE OF LEFT PLANTAR FASCITIS (DIFFICULT TO WALK). Hx of bladder ca with surgery, psoriases,eczema, hiatal hernia, umbilical hernia, kidney stones 2004. Last Myocardial Infarction Date:: 2015 History of Any Multi-Drug Resistant Organisms: None Reported Past Surgical History: Coronary Bypass/CABG, Heart Catheterization With Stent Additional Past Surgical History / Comment(s): 10/20/15 last CARDIAC STENT-has had several previous cardiac stents, vasectomy, bladder sx x2 to remove tumors. L femoral artherectomy/STENT TO LT common ILIAC artery, 05/22/16 R femoral/popliteal atherectomy with PTBA/stent, angiograms, aortogram with run off. Past Anesthesia/Blood Transfusion Reactions: No Reported Reaction Additional Past Anesthesia/Blood Transfusion Reaction / Comment(s): C LAUSTROPHOBIC IN LARGE CROWDS Date of Last Stent Placement:: 10/20/15 Past Psychological History: No Psychological Hx Reported Smoking Status: Former smoker Past Alcohol Use History: None Reported Additional Past Alcohol Use History / Comment(s): pt states smokes 1/2 to a full pack a day, smokes majijauna on occasion Past Drug Use History: Marijuana - Past Family History Father Family Medical History: Myocardial Infarction (DC) Additional Family Medical History / Comment(s): PT'S DAD WHEN PT WAS AGE 4 he believes from a myocardial infarction. Mother Family Medical History: Diabetes Mellitus, Hyperlipidemia, Hypertension, Vascu lar Disorder Medications and Allergies Home Medications Medication Instructions Recorded Confirmed Type Cholecalciferol [Vitamin D3 (25 1,000 unit PO DAILY #0 11/01/19 12/11/19 History Mcg = 1000 Iu)] Multivitamins, Thera [Multivitamin 1 tab PO DAILY 11/01/19 12/11/19 History (formulary)] Aspirin 81 mg PO DAILY #30 chew 11/04/19 12/11/19 Rx Ascorbic Acid [Vitamin C] 500 mg PO DAILY 11/05/19 12/11/19 History Acetaminophen Tab [Tylenol] 1,000 mg PO Q6HR PRN tab 12/03/19 12/11/19 Rx Amiodarone [Cordarone] 200 mg PO DAILY tab 12/03/19 12/11/19 Rx Clopidogrel [Plavix] 75 mg PO DAILY tab 12/03/19 12/11/19 Rx Furosemide [Lasix] 40 mg PO DAILY tab 12/03/19 12/11/19 Rx Heparin Sodium,Porcine [Heparin 5,000 unit SQ Q8HR vial 12/03/19 12/11/19 Rx Sodium] Ipratropium-Albuterol Nebulize 3 ml INHALATION RT-Q2H PRN ml 12/03/19 12/11/19 Rx [Duoneb 0.5 mg-3 mg/3 ml Soln] Ipratropium-Albuterol Nebulize 3 ml INHALATION RT-QID ml 12/03/19 12/11/19 Rx [Duoneb 0.5 mg-3 mg/3 ml Soln] Linagliptin [Tradjenta] 5 mg PO DAILY tablet 12/03/19 12/11/19 Rx Losartan [Cozaar] 25 mg PO DAILY tab 12/03/19 12/11/19 Rx SILVER sulfADIAZINE CREAM 1 applic TOPICAL BID applic 12/03/19 12/11/19 Rx [Silvadene Cream] Metoprolol Tartrate 25 mg PO BID #60 tab 12/06/19 12/11/19 Rx Atomoxetine HCl [Strattera] 40 mg PO HS 12/11/19 12/11/19 History Diltiazem Cd [Cardizem CD] 120 mg PO DAILY 12/11/19 12/11/19 History INSULIN ASPART (NovoLOG) [NovoLOG 2 unit SQ ACHS 12/11/19 12/11/19 History (formulary)] Insulin Detemir (Levemir) [Levemir] 20 unit SQ HS 12/11/19 12/11/19 History Lactobacillus Acidoph & Bulgar 1 tab PO TID-W/MEALS 12/11/19 12/11/19 History [Lactinex] Pantoprazole [Protonix] 40 mg PO DAILY 12/11/19 12/11/19 History QUEtiapine [SEROquel] 12.5 mg PO HS 12/11/19 12/11/19 History Allergies Allergy/AdvReac Type Severity Reaction Status Date / Time ragweed pollen Allergy Unknown Verified 12/11/19 21:02 Physical Examination - Vital Signs Vital Signs: Vital Signs Temp Pulse Pulse Pulse Resp BP BP 12/13/19 11:36 97.6 F 64 20 132/75 12/13/19 11:01 80 12/13/19 10:53 76 12/13/19 08:14 97.4 F L 62 20 152/73 12/13/19 06:08 80 12/13/19 06:00 80 12/13/19 05:20 97.5 F L 70 18 131/75 12/12/19 22:10 97.8 F 80 19 124/67 12/12/19 19:48 78 12/12/19 19:42 78 12/12/19 15:00 97.6 F 77 76 16 131/78 Pulse Ox 12/13/19 11:36 99 12/13/19 11:01 12/13/19 10:53 12/13/19 08:14 100 12/13/19 06:08 12/13/19 06:00 12/13/19 05:20 99 12/12/19 22:10 100 12/12/19 19:48 12/12/19 19:42 12/12/19 15:00 100 Intake and Output 12/12/19 12/13/19 12/13/19 22:59 06:59 14:59 Intake Total 240 400 Output Total 400 296 Balance -160 400 -296 Intake: Intake, IV Titration 400 Amount Sodium Chloride 0.9% 1, 400 000 ml @ 50 mls/hr IV . Q20H [facility] Rx#:[id number] Oral 240 Output: Urine 400 Post Void Residual 296 Other: Voiding Method Urinal Urinal # Voids 1 On examination patient is an elderly male, in no acute distress. He is alert and awake. Patient believes it is January and the year is 2011. He thinks it's fall season. Patient knows that he is in medical building but does not know the name. He believes that he lives in [facility] and name. Patient's states that the in the last 5 years they have moved to a different town, which patient was not able to tell. Apparently they now live in [facility] for the last 5 years. Speech is clear. On cranial examination pupils are round and reactive to light visual gruber are full on confrontation. Extra ocular muscles are intact without nystagmus. Face is symmetric, tongue protrudes the midline. Palatal elevation and sensation normal. Hearing is slightly decreased, shoulder shrug normal. On muscle strength testing there is no pronator drift and the strength is normal in arms and legs distally and proximally. Reflexes are 2+ and plantars is upgoing on the right, down on the left. Sensory touch is equal. No neglect. No ataxia. Tone and bulk of muscles normal. Gait deferred. There is no obvious bruit, S1 is audible. Patient has mild peripheral edema. Abdomen soft nontender. Chest is clear. Results - Laboratory Findings CBC and BMP: 12/13/19 07:40 12/13/19 07:40 Abnormal Lab Findings: Abnormal Labs 12/11/19 12/11/19 12/12/19 18:41 18:41 06:53 RBC 3.97 L Hgb 12.5 L MCHC Monocytes # (Manual) 1.02 H Sodium 133 L BUN 33 H Creatinine 2.24 H Glucose 103 H POC Glucose (mg/dL) 121 H Alkaline Phosphatase 133 H HDL Cholesterol 12/12/19 12/12/19 12/12/19 11:47 11:47 11:49 RBC 4.09 L Hgb 12.4 L MCHC 30.9 L Monocytes # (Manual) Sodium 135 L BUN 30 H Creatinine 1.79 H Glucose 110 H POC Glucose (mg/dL) 104 H Alkaline Phosphatase HDL Cholesterol 12/12/19 12/12/19 12/13/19 17:07 22:19 07:02 RBC Hgb MCHC Monocytes # (Manual) Sodium BUN Creatinine Glucose POC Glucose (mg/dL) 156 H 161 H 65 L Alkaline Phosphatase HDL Cholesterol 12/13/19 12/13/19 12/13/19 07:25 07:40 07:40 RBC 4.08 L Hgb 12.6 L MCHC Monocytes # (Manual) 1.28 H Sodium BUN Creatinine 1.34 H Glucose 57 L POC Glucose (mg/dL) 68 L Alkaline Phosphatase HDL Cholesterol 39 L Assessment and Plan Assessment: * Altered mental status, likely related to metabolic encephalopathy. Patient was noted to be quite disoriented on examination. Uncertain if related to encephalopathy, or if patient has developed some cognitive impairment/dementia related to recent CVAs. The patient believes that his cognitive functions were perfect prior to these recent admissions. * Status post CVA involving left MCA vascular territory. Patient has no signif icant residual deficits noted at this time. * Status post coronary artery bypass grafting on 11/08/2019. * Hypertension * Diabetes * History of tobacco use. * Carotid artery atherosclerotic disease, without significant stenosis. Plan: * Patient's examination is nonfocal. No clinical or radiographic (CT) evidence of a new CVA or TIA. * Continue dual antiplatelet medications. * Patient's is very concerned about Cardizem producing symptoms. Would defer her concerns about Cardizem to IM/cardiology. * No other neurological workup indicated. Carotid Doppler showed no significant stenosis in the ICA. Stenosis in the external carotid artery is clinically not significant. * If patient's mental confusion continued to be a problem, would suggest follow- up in neurology office locally, to rule out underlying cognitive impairment/dementia. * Please call neurology if any other concerns.
[2019-12-13 16:40] LABS: Glucose,Whole Blood 145 mg/dL (75-99)
--- NOTE | 2019-12-13 16:46 | PN ---
PROGRESS NOTE Patient is seen for followup for acute kidney injury. Renal function has improved significantly, with creatinine down to 1.34 from 2.24. Patient denies any significant complaints. PHYSICAL EXAMINATION: Blood pressure is 132/75, heart rate 64 per minute. He is afebrile. EXAMINATION OF THE HEART: S1 and S2. EXAMINATION OF LUNGS: Bilateral breath sounds are heard. ABDOMEN: Soft, non-tender. Examination of lower extremities shows no evidence of edema. GOLD LEAF LAYER exam is grossly intact. LABS: Sodium 138, potassium 4.2, chloride 104, CO2 is 25, BUN 20, creatinine 1.34, hemoglobin 12.6 g/dL. ASSESSMENT: 1. Acute kidney injury, mostly prerenal, currently improved. 2. Hypotension, now improved. Blood pressure medications were held. Patient will need followup as outpatient and we can resume lower dose of his medications if blood pressure remains elevated. 3. Coronary artery disease with history of coronary artery bypass surgery. PLAN: We can continue with the Cardizem and the Lopressor for now and increase medications if needed down the road. Followup as outpatient for CKD. MMODL / IJN: [id number] /
[2019-12-13 20:09] LABS: Glucose,Whole Blood 149 mg/dL (75-99)
[2019-12-13] MEDS: Atomoxetine Hcl [Strattera] 40 MG PO SCH (20:35)
[2019-12-13] MEDS: QUEtiapine 25 MG TAB PO SCH (20:37)
[2019-12-13] MEDS: INSULIN DETEMIR (LEVEMIR) 100 UNIT/ML SYR SQ SCH (20:51)
[2019-12-13] MEDS ORDERED: INSULIN DETEMIR (LEVEMIR) 100 UNIT/ML SYR SQ SCH (21:00)
[2019-12-14 07:28] LABS: Glucose,Whole Blood 122 mg/dL (75-99)
[2019-12-14] MEDS: INSULIN ASPART (NovoLOG) 100 UNIT/ML VIAL SQ SCH ×4 (07:30→20:37)
[2019-12-14] MEDS: PANTOPRAZOLE 40 MG TABLET PO SCH (07:37)
[2019-12-14] MEDS: LINAGLIPTIN 5 MG TABLET PO SCH ×2 (07:37→07:38)
[2019-12-14] MEDS: DILTIAZEM CD 120 MG CAP.ER.24H PO SCH (07:37)
[2019-12-14] MEDS: FOLIC ACID 1 MG TAB PO SCH (07:37)
[2019-12-14] MEDS: LACTOBACILLUS ACIDOPH & BULGAR 1 EACH PACKET PO SCH ×3 (07:37→17:06)
[2019-12-14] MEDS: MULTIVITAMINS, THERA 1 EACH TAB PO SCH (07:37)
[2019-12-14] MEDS: THIAMINE 100 MG TAB PO SCH (07:37)
[2019-12-14] MEDS: CHOLECALCIFEROL 1,000 UNIT TAB PO SCH (07:38)
[2019-12-14] MEDS: ASPIRIN 81 MG PO SCH (07:38)
[2019-12-14] MEDS: CLOPIDOGREL 75 MG TAB PO SCH (07:38)
[2019-12-14] MEDS: SODIUM CHLORIDE 0.9% 1,000 ML IV SCH ×2 (07:38→23:31)
[2019-12-14] MEDS: METOPROLOL TARTRATE 25 MG TAB PO SCH ×2 (07:38→20:45)
[2019-12-14] MEDS: ASCORBIC ACID 500 MG TAB PO SCH (07:38)
[2019-12-14] MEDS: HEPARIN SODIUM,PORCINE 5,000 UNIT/ML 1 ML VIAL SQ SCH ×3 (07:38→23:30)
[2019-12-14] MEDS: ATORVASTATIN 20 MG TAB PO SCH (07:38)
[2019-12-14 08:08] LABS: HCT 40.4 % (39.0-53.0); HGB 12.1 gm/dL (13.0-17.5); Hypochromasia Moderate; MCH 29.6 pg (25.0-35.0); MCHC 29.8 g/dL (31.0-37.0); MCV 99.3 fL (80.0-100.0); Mean Platelet Volume 7.5; Platelet Count 271 k/uL (150-450); RBC 4.07 m/uL (4.30-5.90); RDW 14.1 % (11.5-15.5); WBC 8.2 k/uL (3.8-10.6)
[2019-12-14 08:29] LABS: Calcium 9.2 mg/dL (8.4-10.2); Potassium 4.6 mmol/L (3.5-5.1)
[2019-12-14] MEDS: IPRATROPIUM-ALBUTEROL 3 ML NEB INHALATION SCH ×4 (09:01→20:55)
[2019-12-14 10:55] LABS: Basophils # (M) 0.16 k/uL (0-0.2); Eosinophils # (M) 0.57 k/uL (0-0.7); Lymphocytes # (M) 2.38 k/uL (1.0-4.8); Monocytes # (M) 1.07 k/uL (0-1.0); Neutrophils # (M) 4.02 k/uL (1.3-7.7); Neutrophils % (M) 49 %; Nucleated Red Blood Cells 0 /100 WBC (0-0); Total Cells Counted 100
[2019-12-14 11:59] LABS: Glucose,Whole Blood 127 mg/dL (75-99)
--- NOTE | 2019-12-14 12:02 | P.PN ---
Subjective Progress Note Date: 12/14/19 Principal diagnosis: CAD and status post CABG This is a 64-year-old gentleman with extensive past medical history consistent of coronary artery disease and prior coronary artery bypass grafting with extensive post operation course who was discharged home last week was brought ba hakan to the hospital with a change in mental status. We felt that this change in mental status was related to the amiodarone which was stopped. The patient was seen today December [id number]. He is a slightly lethargic but once he wake up he is very appropriate and answers all the questions. He denies any symptoms of chest pain or chest discomfort. No significant tachycardia or bradycardia arrhythmia. Objective - Vital Signs Vital signs: Vital Signs Temp 98.1 F 12/14/19 07:12 Pulse 76 12/14/19 07:12 Resp 16 12/14/19 07:12 BP 129/75 12/14/19 07:12 Pulse Ox 100 12/14/19 07:12 Intake & Output 12/13/19 12/14/19 12/14/19 18:59 06:59 18:59 Intake Total 740 50 640 Output Total 296 Balance 444 50 640 Intake: IV 400 400 Sodium Chloride 0.9% 1, 400 400 000 ml @ 50 mls/hr IV . Q20H [facility] Rx#:[id number] Oral 340 50 240 Output: Post Void Residual 296 Other: Voiding Method Diaper Diaper # Voids 3 1 # Bowel Movements 1 - Constitutional General appearance: Present: no acute distress - Respiratory Respiratory: bilateral: CTA - Cardiovascular Rhythm: regular - Labs CBC & Chem 7: 12/14/19 07:15 12/14/19 07:15 Labs: Abnormal Lab Results - Last 24 Hours (Table) 12/13/19 12/13/19 12/14/19 Range/Units 16:38 20:07 07:15 RBC 4.07 L (4.30-5.90) m/uL Hgb 12.1 L (13.0-17.5) gm/dL MCHC 29.8 L (31.0-37.0) g/dL Monocytes # (Manual) 1.07 H (0-1.0) k/uL Glucose (74-99) mg/dL POC Glucose (mg/dL) 145 H 149 H (75-99) mg/dL 12/14/19 12/14/19 12/14/19 Range/Units 07:15 07:15 11:46 RBC (4.30-5.90) m/uL Hgb (13.0-17.5) gm/dL MCHC (31.0-37.0) g/dL Monocytes # (Manual) (0-1.0) k/uL Glucose 114 H (74-99) mg/dL POC Glucose (mg/dL) 122 H 127 H (75-99) mg/dL Assessment and Plan Assessment: Assessment #1 change in mental status which has improved #2 coronary artery disease and status post CABG #3 status post permanent pacemaker implantation #4 multiple comorbid conditions Plan #1 continue the current medical regimen
--- NOTE | 2019-12-14 12:55 | P.PN ---
Subjective Progress Note Date: 12/14/19 Principal diagnosis: Confusion and chest pain upon admission, previous medical history of symptomatic multivessel coronary artery disease with previous stent placement to the circu mflex and OM1 status post 5V CABG 11/08/19, unstable angina status post subendocardial myocardial infarction, hypertension, hyperlipidemia, chronic tobacco dependence with recent cessation, mild COPD with preoperative FEV1 60% of predicted, right internal carotid artery stenosis 50-69%, peripheral arterial disease with previous arthrectomy and HEDGE FUND MANAGER of the left SFA, atherectomy and HEDGE FUND MANAGER of the left DEAN OF [employer], with stenting of the left BRIAN, poorly controlled type 2 diabetes with preoperative hemoglobin A1c 9.1%, bladder cancer status post chemo and radiation, occasional marijuana use, medication noncompliance, family history of premature coronary artery disease, and postoperative complications of blood loss anemia, encephalopathy, atrial fibrillation with RVR, prolonged mechanical ventilation with reintubation with metabolic acidosis and hypotension, and bradycardia status post Medtronic permanent pacemaker placement. The patient was seen and examined this morning at the bedside with Dr. Hewitt, we were notified by [facility] staff that patient came back to the hospital but no consultation was placed to CV surgery as patient is more than 30 days post surgery. He was sitting up in bed in no distress eating breakfast. Denied chest pain, shortness of breath. Sternum is stable and his incisions are well approximated. Vital signs remain stable and he is oxygenating well on room air. No new concerns. Objective - Vital Signs Vital signs: Vital Signs Temp 98.1 F 12/14/19 07:12 Pulse 76 12/14/19 07:12 Resp 16 12/14/19 07:12 BP 129/75 12/14/19 07:12 Pulse Ox 100 12/14/19 07:12 Intake & Output 12/13/19 12/14/19 12/14/19 18:59 06:59 18:59 Intake Total 740 50 640 Output Total 296 Balance 444 50 640 Intake: IV 400 400 Sodium Chloride 0.9% 1, 400 400 000 ml @ 50 mls/hr IV . Q20H YVAN Rx#:[id number] Oral 340 50 240 Output: Post Void Residual 296 Other: Voiding Method Diaper Diaper # Voids 3 1 # Bowel Movements 1 - Constitutional General appearance: Present: cooperative, no acute distress - Respiratory Details: Lung sounds diminished bilaterally. Respirations even, non-labored. Remains on room air with oxygen saturation 98-100%. - Cardiovascular Details: S1/S2 present. Regular rate/rhythm, NSR on telemetry. Sternum stable. Palpable peripheral pulses bilaterally. No edema present. - Gastrointestinal Gastrointestinal Comment(s): Abdomen soft, non-tender, non-distended. Active bowel sounds x 4 quadrants. Tolerating diet. - Genitourinary Genitourinary Comment(s): Voiding, uncontinent at times - Integumentary Integumentary Comment(s): Skin is warm and dry. Incisions well approximated without drainage. - Neurologic Neurologic: Present: CNII-XII intact - Musculoskeletal Musculoskeletal: Present: strength equal bilaterally - Psychiatric Psychiatric Comment(s): Alert, oriented to person and place. Follows commands - Allied health notes Allied health notes reviewed: nursing - Labs CBC & Chem 7: 12/14/19 07:15 12/14/19 07:15 Labs: Abnormal Lab Results - Last 24 Hours (Table) 12/13/19 12/13/19 12/14/19 Range/Units 16:38 20:07 07:15 RBC 4.07 L (4.30-5.90) m/uL Hgb 12.1 L (13.0-17.5) gm/dL MCHC 29.8 L (31.0-37.0) g/dL Monocytes # (Manual) 1.07 H (0-1.0) k/uL Glucose (74-99) mg/dL POC Glucose (mg/dL) 145 H 149 H (75-99) mg/dL 12/14/19 12/14/19 12/14/19 Range/Units 07:15 07:15 11:46 RBC (4.30-5.90) m/uL Hgb (13.0-17.5) gm/dL MCHC (31.0-37.0) g/dL Monocytes # (Manual) (0-1.0) k/uL Glucose 114 H (74-99) mg/dL POC Glucose (mg/dL) 122 H 127 H (75-99) mg/dL - Imaging and Cardiology Chest x-ray: report reviewed, image reviewed Assessment and Plan Assessment: 1. Confusion and chest pain upon admission 2. History of symptomatic multivessel coronary artery disease with previous stent placement to the circumflex and OM1 status post 5V CABG 11/08/19, unstable angina status post subendocardial myocardial infarction 3. History of hypertension 4. Hyperlipidemia 5. Chronic tobacco dependence with recent cessation 6. Mild COPD with FEV1 60% of predicted 7. Right internal carotid artery stenosis 50-69% 8. Peripheral arterial disease 9. Poorly controlled type 2 diabetes 10. History of bladder cancer status post chemo and radiation 11. Family history of premature coronary artery disease 12. Postoperative complications of blood loss anemia, encephalopathy, atrial fibrillation with RVR, prolonged mechanical ventilation with reintubation with metabolic acidosis and hypotension, and bradycardia status post Medtronic permanent pacemaker placement Plan: The patient was seen and examined at the bedside with Dr. Hewitt. His chart and diagnostics were reviewed in detail. Even though we were not consulted as the patient is more than 30 days post surgery, we feel he is stable for transfer back to [facility]. He does have a follow up appointment with Dr. Hewitt 12/23/19 @ 9:45 am. Significant discussion was had with the patient's regarding confusion related to cardizem. Informed his that patient is on cardizem for radial artery spasm prophylaxis, that it is a temporary medication-not lifetime, and that confusion is not a reported side effect of cardizem. His lingering confusion, which has improved, is likely related to intraoperative and postoperative events. All her questions were answered. Time with Patient: Greater than 30
--- NOTE | 2019-12-14 16:44 | P.PN ---
Subjective Progress Note Date: 12/14/19 Patient offers no complaints. Patient in recliner laying comfortably. Objective - Vital Signs Vital signs: Vital Signs Temp 97.8 F 12/14/19 13:44 Pulse 59 L 12/14/19 13:44 Resp 16 12/14/19 13:44 BP 118/64 12/14/19 13:44 Pulse Ox 99 12/14/19 13:44 Intake & Output 12/13/19 12/14/19 12/14/19 18:59 06:59 18:59 Intake Total 740 50 880 Output Total 296 775 Balance 444 50 105 Intake: IV 400 400 Sodium Chloride 0.9% 1, 400 400 000 ml @ 50 mls/hr IV . Q20H YVAN Rx#:[id number] Oral 340 50 480 Output: Urine 775 Post Void Residual 296 Other: Voiding Method Diaper Diaper # Voids 3 1 # Bowel Movements 1 - Exam Patient's mentation is very stable. Speech is clear. Visual gruber are full. Face is symmetric. Muscle strength is normal. No ataxia for [id number] testing. - Labs CBC & Chem 7: 12/14/19 07:15 12/14/19 07:15 Labs: Abnormal Lab Results - Last 24 Hours (Table) 12/13/19 12/14/19 12/14/19 Range/Units 20:07 07:15 07:15 RBC 4.07 L (4.30-5.90) m/uL Hgb 12.1 L (13.0-17.5) gm/dL MCHC 29.8 L (31.0-37.0) g/dL Monocytes # (Manual) 1.07 H (0-1.0) k/uL Glucose 114 H (74-99) mg/dL POC Glucose (mg/dL) 149 H (75-99) mg/dL 12/14/19 12/14/19 Range/Units 07:15 11:46 RBC (4.30-5.90) m/uL Hgb (13.0-17.5) gm/dL MCHC (31.0-37.0) g/dL Monocytes # (Manual) (0-1.0) k/uL Glucose (74-99) mg/dL POC Glucose (mg/dL) 122 H 127 H (75-99) mg/dL Assessment and Plan Assessment: * Altered mental status, likely related to metabolic encephalopathy. Rule out underlying cognitive impairment/dementia related to recent CVAs. The patient believes that his cognitive functions were perfect prior to these recent admissions. * Status post CVA involving left MCA vascular territory. Patient has no significant residual deficits noted at this time. * Status post coronary artery bypass grafting on 11/08/2019. * Hypertension * Diabetes * History of tobacco use. * Carotid artery atherosclerotic disease, without significant stenosis. Plan: * Patient's examination is nonfocal. No clinical or radiographic evidence of new CVA or TIA. * Continue dual antiplatelet medications. * Patient cannot have MRI due to presence of pacemaker. Discussed with primary team. * Patient's is very concerned about Cardizem producing symptoms. Would defer her concerns about Cardizem to IM/cardiology. * No other neurological workup indicated. Carotid Doppler showed no significant stenosis in the ICA. Stenosis in the external carotid artery is clinically not significant. * If patient's mental confusion continued to be a problem, would suggest follow- up in neurology office locally, to rule out underlying cognitive impairment/dementia. * Patient has been completely stable over the last 2-4 hours. Neurology will sign off. Please call neurology if any other concerns.
[2019-12-14 16:55] LABS: Glucose,Whole Blood 187 mg/dL (75-99)
--- NOTE | 2019-12-14 18:12 | PN ---
PROGRESS NOTE DATE OF SERVICE: 12/14/2019 This 64-year-old gentleman who was admitted with chest pain recently had CABG with multiple complications. Patient was admitted with change in mental status and the patient was found to have multiple strokes, possibly subacute in nature. Multiple consultants are following the patient closely. Neurovascular workup is also underway. Two-D echo read by Cardiology showed ejection fraction 50% to 55%. Otherwise, no other abnormalities, with limited study. The carotid Doppler showed bilateral carotid stenosis, about 70% stenosis. Patient is being closely monitored. Past medical history reviewed. REVIEW OF SYSTEMS: CARDIOVASCULAR SYSTEM: No angina, palpitations. RESPIRATORY SYSTEM: As mentioned earlier. GI: As mentioned earlier. : No dysuria or retention. NERVOUS SYSTEM: No numbness, weakness. CURRENT MEDICATIONS: Reviewed. They include Tylenol, [place], DuoNeb, Xanax, aspirin, Lipitor, Cardizem, folic acid, NovoLog, Tradjenta, lopressor, multivitamins, Seroquel. Doses are reviewed. PHYSICAL EXAMINATION: Patient alert and oriented x3. Pulse is 59, blood pressure 118/64, respirations 16, temperature 97.8, pulse ox 99% on room air. HEENT: Conjunctivae normal. NECK: No jugular venous distention. CARDIOVASCULAR SYSTEM: S1, S2 muffled. RESPIRATORY SYSTEM: Breath sounds diminished at the bases. A few scattered rhonchi and crackles. ABDOMEN: Soft, non-tender. LEGS: No edema. No swelling. NERVOUS SYSTEM: No focal deficit. LABS: WBC 4.2, hemoglobin 12.1, glucose 122. ASSESSMENT: 1. Chest pain. Rule out coronary artery disease, possibly musculoskeletal. 2. Change in mental status, possible acute on chronic metabolic encephalopathy with delirium. 3. Old bilateral basal ganglia lacunar infarct with chronic small vessel ischemia on the CT scan as well as possible left parietal lobe white matter subacute infarct. 4. Acute renal failure, possibly secondary to prerenal acute tubular necrosis, present on admission. 5. History of recent coronary artery disease, coronary artery bypass grafting x4. 6. History of recent bilateral pleural effusion and chest tube drainage. 7. History of permanent pacemaker implantation. 8. Diabetes mellitus, type 2. 9. Hypertension. 10.History of myocardial infarction. 11.History of intermittent bilateral claudication. 12.Bilateral carotid artery stenosis of about 70% in the external carotid, internal carotid with 20% to 30% with minimal carotid artery stenosis. 13.History of nicotine dependence. 14.History of psoriasis. 15.History of hiatal hernia. 16.History of coronary artery disease, stent. 17.History of peripheral vascular disease. 18.History of tetrahydrocannabinol. 19.FULL CODE. RECOMMENDATIONS AND DISCUSSION: I recommend to continue current medications, continue with the monitoring, symptomatic treatment. Continue with the antiplatelet agents. Continue the Lipitor. Continue with the rest of the medications. PT/OT evaluation. MRI could be done to delineate the neurological issues further. Closely follow with Neurology, Cardiothoracic Surgery. Further recommendations to follow. MMODL / IJN: [id number] / ERICA
--- NOTE | 2019-12-14 18:21 | PN ---
PROGRESS NOTE Patient is seen for followup for acute kidney injury. He is currently doing well. Patient denies any significant complaints. Renal function has improved. Creatinine down to 1.09 today. PHYSICAL EXAMINATION: Blood pressure was 118/64, heart rate 59 per minute. He is afebrile. exam shows no evidence of edema, bilateral lower extremities. Patient appears euvolemic. Abdomen is soft, nontender. LABS: Sodium of 138, potassium 4.6, chloride 107, BUN 12, creatinine 1.09, hemoglobin 12.1 g/dL. ASSESSMENT: 1. Acute kidney injury, prerenal, currently improved. 2. Hypotension, now resolved. 3. Coronary artery disease with previous history of coronary artery bypass surgery. PLAN: Okay to discharge from nephrology standpoint. MMODL / IJN: [id number] /
[2019-12-14 20:31] LABS: Glucose,Whole Blood 90 mg/dL (75-99)
[2019-12-14] MEDS: INSULIN DETEMIR (LEVEMIR) 100 UNIT/ML SYR SQ SCH (20:45)
[2019-12-14] MEDS: QUEtiapine 25 MG TAB PO SCH (20:45)
[2019-12-14] MEDS: Atomoxetine Hcl [Strattera] 40 MG PO SCH (20:46)
[2019-12-15 06:59] LABS: Glucose,Whole Blood 113 mg/dL (75-99)
[2019-12-15 07:19] LABS: HGB 12.9 gm/dL (13.0-17.5); Hypochromasia Moderate; MCH 30.6 pg (25.0-35.0); MCHC 30.6 g/dL (31.0-37.0); MCV 99.9 fL (80.0-100.0); Mean Platelet Volume 7.2; Platelet Count 237 k/uL (150-450); RBC 4.21 m/uL (4.30-5.90); RDW 13.9 % (11.5-15.5); WBC 9.2 k/uL (3.8-10.6)
[2019-12-15 07:20] LABS: African American GFR (CKD) >90 (>60 ml/min/1.73 sqM); Anion Gap 10 mmol/L; Blood Urea Nitrogen 13 mg/dL (9-20); Calcium 9.2 mg/dL (8.4-10.2); Carbon Dioxide 22 mmol/L (22-30); Chloride 106 mmol/L (98-107); Glucose 115 mg/dL (74-99); Non-African American GFR(CKD) 78 (>60 ml/min/1.73 sqM); Potassium 4.4 mmol/L (3.5-5.1); Sodium 138 mmol/L (137-145)
[2019-12-15] MEDS: INSULIN ASPART (NovoLOG) 100 UNIT/ML VIAL SQ SCH ×4 (07:42→21:53)
[2019-12-15] MEDS: MULTIVITAMINS, THERA 1 EACH TAB PO SCH (07:45)
[2019-12-15] MEDS: THIAMINE 100 MG TAB PO SCH (07:45)
[2019-12-15] MEDS: ASCORBIC ACID 500 MG TAB PO SCH (07:45)
[2019-12-15] MEDS: DILTIAZEM CD 120 MG CAP.ER.24H PO SCH (07:45)
[2019-12-15] MEDS: METOPROLOL TARTRATE 25 MG TAB PO SCH (07:45)
[2019-12-15] MEDS: PANTOPRAZOLE 40 MG TABLET PO SCH (07:45)
[2019-12-15] MEDS: FOLIC ACID 1 MG TAB PO SCH (07:45)
[2019-12-15] MEDS: CLOPIDOGREL 75 MG TAB PO SCH (07:45)
[2019-12-15] MEDS: CHOLECALCIFEROL 1,000 UNIT TAB PO SCH (07:46)
[2019-12-15] MEDS: LACTOBACILLUS ACIDOPH & BULGAR 1 EACH PACKET PO SCH ×3 (07:46→17:17)
[2019-12-15] MEDS: HEPARIN SODIUM,PORCINE 5,000 UNIT/ML 1 ML VIAL SQ SCH ×2 (07:46→14:56)
[2019-12-15] MEDS: ASPIRIN 81 MG PO SCH (07:46)
[2019-12-15] MEDS: ATORVASTATIN 20 MG TAB PO SCH (07:46)
[2019-12-15 08:02] LABS: Eosinophils # (M) 0.18 k/uL (0-0.7); Lymphocytes # (M) 2.48 k/uL (1.0-4.8); Monocytes # (M) 0.92 k/uL (0-1.0); Neutrophils # (M) 5.61 k/uL (1.3-7.7); Neutrophils % (M) 61 %; Nucleated Red Blood Cells 0 /100 WBC (0-0); Total Cells Counted 100
[2019-12-15] MEDS: IPRATROPIUM-ALBUTEROL 3 ML NEB INHALATION SCH ×4 (09:41→19:54)
[2019-12-15 10:24] VITALS: RESP 16
[2019-12-15 10:39] LABS: Glucose,Whole Blood 125 mg/dL (75-99)
[2019-12-15 11:13] LABS: Creatine Kinase MB 2.3 ng/mL (0.0-2.4); Troponin I 0.028 ng/mL (0.000-0.034)
--- NOTE | 2019-12-15 14:14 | P.PN ---
Subjective Progress Note Date: 12/15/19 Principal diagnosis: CAD and status post CABG This is a 64-year-old gentleman with extensive past medical history consistent of coronary artery disease and prior coronary artery bypass grafting with extensive post operation course who was discharged home last week was brought ba hakan to the hospital with a change in mental status. We felt that this change in mental status was related to the amiodarone which was stopped. The patient was seen today December 142019. During a session of physical therapy today he developed presyncope with a drop in the blood pressure which is likely secondary to orthostatic hypotension versus vasovagal. Currently he is on metoprolol only. Objective - Vital Signs Vital signs: Vital Signs Temp 97.9 F 12/15/19 07:00 Pulse 73 12/15/19 10:05 Resp 16 12/15/19 10:05 BP 127/69 12/15/19 10:05 Pulse Ox 100 12/15/19 10:05 Intake & Output 12/14/19 12/15/19 12/15/19 18:59 06:59 18:59 Intake Total 880 50 500 Output Total 775 1450 500 Balance 105 -1400 0 Intake: IV 400 400 Sodium Chloride 0.9% 1, 400 400 000 ml @ 50 mls/hr IV . Q20H YVAN Rx#:[id number] Oral 480 50 100 Output: Urine 775 1450 500 Other: Voiding Method Diaper # Voids 1 # Bowel Movements 1 - Constitutional General appearance: Present: no acute distress - Respiratory Respiratory: bilateral: CTA - Cardiovascular Rhythm: regular Heart sounds: normal: S1, S2 - Labs CBC & Chem 7: 12/15/19 06:24 12/15/19 06:24 Labs: Abnormal Lab Results - Last 24 Hours (Table) 12/14/19 12/15/19 12/15/19 Range/Units 16:53 06:24 06:24 RBC 4.21 L (4.30-5.90) m/uL Hgb 12.9 L (13.0-17.5) gm/dL MCHC 30.6 L (31.0-37.0) g/dL Glucose 115 H (74-99) mg/dL POC Glucose (mg/dL) 187 H (75-99) mg/dL Total Creatine Kinase (55-170) U/L 08/12/15/19 12/15/19 Range/Units 06:56 10:15 10:35 RBC (4.30-5.90) m/uL Hgb (13.0-17.5) gm/dL MCHC (31.0-37.0) g/dL Glucose (74-99) mg/dL POC Glucose (mg/dL) 113 H 125 H (75-99) mg/dL Total Creatine Kinase 37 L (55-170) U/L Assessment and Plan Assessment: Assessment #1 change in mental status which has improved #2 coronary artery disease and status post CABG #3 status post permanent pacemaker implantation #4 follow-up with the orthostatic hypotension Plan #1 continue the current medical regimen including antiplatelet and statin #2 continue monitor the blood pressure and heart rate. #3 follow-up with the patient
--- NOTE | 2019-12-15 16:02 | XR ---
EXAMINATION TYPE: XR chest 1V portable DATE OF EXAM: 12/15/2019 COMPARISON: 12/11/2019 HISTORY: Chest pain TECHNIQUE: Single frontal view of the chest is obtained. FINDINGS: There is no focal air space opacity, pleural effusion, or pneumothorax seen. The cardiac silhouette size is within normal limits. The osseous structures are intact. Heart is enlarged there is postsurgical change. Cardiac device noted. No overt failure. Hyperinflation suggests COPD. IMPRESSION: No acute process.
[2019-12-15 16:47] LABS: Glucose,Whole Blood 187 mg/dL (75-99)
--- NOTE | 2019-12-15 18:55 | PN ---
PROGRESS NOTE DATE OF SERVICE: 12/15/2019 This 64-year-old gentleman who was admitted with chest pain is being evaluated at this time. The patient had change in mental status, metabolic insult. The patient also had bilateral strokes. The patient also had renal failure and carotid stenosis. Multiple consultants are following the patient, including Neurology and Cardiology. Past medical history reviewed. REVIEW OF SYSTEMS: CARDIOVASCULAR SYSTEM: No angina, palpitations. RESPIRATORY SYSTEM: As mentioned earlier. GI: As mentioned earlier. : No dysuria or retention. NERVOUS SYSTEM: Diffusely weak. CURRENT MEDICATIONS: Reviewed. They include Tylenol p.r.n., Petroleum 5 mg q.6 p.r.n., DuoNeb, Xanax, vitamin C, aspirin, Lipitor, folic acid, heparin, Levemir, Tradjenta, multivitamins, Narcan, Protonix, vitamin B1. PHYSICAL EXAMINATION: Patient is alert, oriented x2. Pulse is 59, blood pressure 149/76, respiration 16, temperature 98.4, pulse ox 99% on room air. HEENT: Conjunctivae normal. Oral mucosa moist. NECK: No jugular venous distention. No carotid bruit. No lymph node enlargement. CARDIOVASCULAR SYSTEM: S1, S2 muffled. RESPIRATORY SYSTEM: Breath sounds diminished at the bases. A few scattered rhonchi and crackles. ABDOMEN: Soft, non-tender. LEGS: No edema. No swelling. NERVOUS SYSTEM: Diffusely weak. LABS: WBC 9.2, hemoglobin 12.9, glucose 113. Cholesterol noted. ASSESSMENT: 1. Chest pain. Rule out coronary artery disease. Possibly musculoskeletal. 2. Change in mental status, possible acute on chronic metabolic encephalopathy with delirium. Small bilateral basal ganglia lacunar infarct with chronic small- vessel ischemia on the CT scan as well as possible left parietal lobe white matter subacute infarct. 3. Acute renal failure, possibly secondary to prerenal acute tubular necrosis, present on admission. 4. History of recent coronary artery disease, coronary artery bypass grafting x5. 5. History of recent bilateral pleural effusion and chest tube drainage. 6. History of permanent pacemaker implantation. 7. Diabetes mellitus, type 2. 8. Hypertension. 9. History of myocardial infarction. 10.History of intermittent bilateral claudication. 11.Bilateral carotid artery stenosis; 70% in the external carotid; carotid 20% to 30% with carotid artery disease. 12.History of nicotine dependence. 13.History of psoriasis. 14.History of hiatal hernia. 15.Gait dysfunction. 16.History of coronary artery disease, stent. 17.History of peripheral vascular disease. 18.History of tetrahydrocannabinol. 19.FULL CODE. RECOMMENDATIONS AND DISCUSSION: I recommend to continue current medications, continue with symptomatic treatment. Continue with antiplatelet agents. PT/OT evaluation. Patient is still confused. Continue the rest of the medications. The vital signs showed improved blood pressure. Otherwise, guarded prognosis because of multiple complex medical issues. Further recommendations to follow. The patient had severe hypotension last night. Will hold the blood pressure medications, depending upon the clinical condition. MMODL / IJN: [id number] / MTDMarisa
--- NOTE | 2019-12-15 20:21 | NM ---
EXAMINATION TYPE: NM pul vent and perfuse DATE OF EXAM: 12/15/2019 COMPARISON: NONE HISTORY: TECHNIQUE: Utilizing inhalation of 35.4 mCi Tc 99m DTPA aerosol and intravenous injection of 5.2 mCi of Tc 99m MAA, ventilation and perfusion images are acquired post injection in multiple projections. FINDINGS: There is fairly uniform ventilation and perfusion of both lungs. I see no segmental type defect. Ther e is no ventilation/perfusion mismatch. There is slight decreased ventilation anterior aspect of the left upper lobe. This could relate to some airway disease. IMPRESSION: There is a low probability of pulmonary embolism.
[2019-12-15 20:35] LABS: Glucose,Whole Blood 133 mg/dL (75-99)
[2019-12-15] MEDS: Atomoxetine Hcl [Strattera] 40 MG PO SCH (21:52)
[2019-12-15] MEDS: INSULIN DETEMIR (LEVEMIR) 100 UNIT/ML SYR SQ SCH (21:59)
[2019-12-15] MEDS: QUEtiapine 25 MG TAB PO SCH (21:59)
[2019-12-15] MEDS: METOPROLOL TARTRATE 12.5 MG TAB PO SCH (21:59)
[2019-12-16] MEDS: HEPARIN SODIUM,PORCINE 5,000 UNIT/ML 1 ML VIAL SQ SCH ×2 (00:13→08:11)
[2019-12-16] MEDS: SODIUM CHLORIDE 0.9% 1,000 ML IV SCH ×2 (00:14→13:23)
[2019-12-16 03:12] VITALS: TEMP 97.9
[2019-12-16 07:38] LABS: Glucose,Whole Blood 132 mg/dL (75-99)
[2019-12-16 07:59] VITALS: BP 143/77; PULSE 91
[2019-12-16] MEDS: PANTOPRAZOLE 40 MG TABLET PO SCH (08:10)
[2019-12-16] MEDS: THIAMINE 100 MG TAB PO SCH (08:10)
[2019-12-16] MEDS: LINAGLIPTIN 5 MG TABLET PO SCH (08:10)
[2019-12-16] MEDS: ASCORBIC ACID 500 MG TAB PO SCH (08:10)
[2019-12-16] MEDS: ATORVASTATIN 20 MG TAB PO SCH (08:10)
[2019-12-16] MEDS: FOLIC ACID 1 MG TAB PO SCH (08:10)
[2019-12-16] MEDS: CLOPIDOGREL 75 MG TAB PO SCH (08:10)
[2019-12-16] MEDS: METOPROLOL TARTRATE 12.5 MG TAB PO SCH (08:10)
[2019-12-16] MEDS: LACTOBACILLUS ACIDOPH & BULGAR 1 EACH PACKET PO SCH ×2 (08:11→11:49)
[2019-12-16] MEDS: CHOLECALCIFEROL 1,000 UNIT TAB PO SCH (08:11)
[2019-12-16] MEDS: MULTIVITAMINS, THERA 1 EACH TAB PO SCH (08:11)
[2019-12-16] MEDS: INSULIN ASPART (NovoLOG) 100 UNIT/ML VIAL SQ SCH ×2 (08:11→11:49)
[2019-12-16] MEDS: ASPIRIN 81 MG PO SCH (08:11)
[2019-12-16] MEDS: IPRATROPIUM-ALBUTEROL 3 ML NEB INHALATION SCH ×2 (08:21→11:43)
[2019-12-16 11:26] LABS: Glucose,Whole Blood 210 mg/dL (75-99)
--- NOTE | 2019-12-16 13:12 | P.DS ---
Providers Date of admission: 12/13/19 10:38 Expected date of discharge: 12/16/19 Attending physician: Carmenza Ro Consults: 12/11/19 20:10 Consult Physician Urgent Consulting Provider: [facility] Consult Reason/Comments: acute chest pain, recent CABG Do you want consulting provider notified?: Yes 12/12/19 00:41 Consult Physician Routine Consulting Provider: Yash Hicks Consult Reason/Comments: arf Do you want consulting provider notified?: Yes 12/12/19 15:07 Consult Physician Routine Consulting Provider: Alba Omer Consult Reason/Comments: cva/ abnormal ct Do you want consulting provider notified?: Yes Primary care physician: [facility] Course: Final diagnosis Chest pain. Ruled out coronary artery disease, possibly musculoskeletal Change in mental status, possible acute on chronic metabolic encephalopathy with delirium. Small bilateral basal ganglia lacunar infarct with chronic small vessel ischemia on the CT as well as possible left parietal lobe white matter subacute infarct Acute renal failure, possibly secondary to prerenal acute tubular necrosis, present on admission History of recent coronary artery disease, CABG 5 History of recent bilateral pleural effusions with chest tube drainage History of permanent pacemaker implantation Diabetes mellitus type 2 Hypertension myocardial infarction history of intermittent bilateral claudication Bilateral carotid artery stenosis, 70% in the external carotid; carotid 20% to 30% with carotid artery disease History of nicotine dependence history of psoriasis history of hiatal hernia gait dysfunction History of coronary artery disease, stent History of peripheral vascular disease history of THC Full code Discharge disposition Patient is being discharged in a stable condition with guarded prognosis to [facility] for continued PT/OT therapy. Patient will follow-up with Dr. Boswell upon discharge. Patient will continue on aspirin and Lipitor daily. Patient also instructed to follow-up with cardiology and cardiothoracic surgery in 1 week. Total time taken is greater than 35 minutes. History of present illness This is an 64-year-old male who was recently admitted with chest pain and was being closely monitored. Patient was also found to have a change in mental status possible metabolic in nature. Patient was recently at [facility] for continued PT/OT therapy and will be returning there upon discharge. Patient was seen and evaluated by cardiology, neurology, and cardiothoracic surgery and will follow- up with cardiothoracic as scheduled in one week along with cardiology in the outpatient setting. Neurology recommends outpatient follow-up if patient continues to have symptoms. Patient is currently unable to receive an MRI of the brain for recent permanent pacemaker placement. Patient was seen and evaluated by physical therapy recommending continued subacute rehab for strength and mobility. Patient does have a history of diabetes mellitus and recommend to continue monitoring blood sugars before meals at bedtime and treat accordingly with sliding scale. Patient to continue working with physical therapy in the outpatient setting. Patient will continue with aspirin and Lipitor in the outpatient setting. Patient would also benefit from bilateral lower extremity compression hose up to the knee and instructed to elevate lower extremities while at rest. Currently no reports of chest pain, shortness of breath, or palpitations. Patient is afebrile. No reports of nausea or vomiting and patient is tolerating diet. Guarded prognosis. Patient will be going to [facility] today. On exam vital signs are stable. Temp is 98.0F, pulse is 82, respirations are 16, blood pressure is 169/75, oxygen saturation is 93% on room air. Cardio S1, S2 are muffled. Respiratory shows diminished breath sounds at the bases with a few scattered rhonchi noted. Abdomen is soft and nontender. Nervous system shows mild diffuse weakness. Please refer to medication reconciliation sheet for a list of medications. Patient Condition at Discharge: Stable Plan - Discharge Summary Discharge Rx Participant: No New Discharge Prescriptions: New Folic Acid 1 mg PO DAILY@1200 tab Insulin Detemir (Levemir) [Levemir] 5 unit SQ HS syr Atorvastatin [Lipitor] 20 mg PO DAILY tab Metoprolol Tartrate [Lopressor] 12.5 mg PO BID tab Thiamine [Vitamin B-1] 100 mg PO DAILY@1200 tab Continue Cholecalciferol [Vitamin D3 (25 Mcg = 1000 Iu)] 1,000 unit PO DAILY #0 Multivitamins, Thera [Multivitamin (formulary)] 1 tab PO DAILY Aspirin 81 mg PO DAILY #30 chew Ascorbic Acid [Vitamin C] 500 mg PO DAILY Ipratropium-Albuterol Nebulize [Duoneb 0.5 mg-3 mg/3 ml Soln] 3 ml INHALATION RT-QID ml Ipratropium-Albuterol Nebulize [Duoneb 0.5 mg-3 mg/3 ml Soln] 3 ml INHALATION RT-Q2H PRN ml PRN Reason: Shortness Of Breath Or Wheezing Heparin Sodium,Porcine [Heparin Sodium] 5,000 unit SQ Q8HR vial Clopidogrel [Plavix] 75 mg PO DAILY tab SILVER sulfADIAZINE CREAM [Silvadene Cream] 1 applic TOPICAL BID applic Linagliptin [Tradjenta] 5 mg PO DAILY tablet Acetaminophen Tab [Tylenol] 1,000 mg PO Q6HR PRN tab PRN Reason: Fever And/ Or Pain Atomoxetine HCl [Strattera] 40 mg PO HS Lactobacillus Acidoph & Bulgar [Lactinex] 1 tab PO TID-W/MEALS INSULIN ASPART (NovoLOG) [NovoLOG (formulary)] 2 unit SQ ACHS Pantoprazole [Protonix] 40 mg PO DAILY QUEtiapine [SEROquel] 12.5 mg PO HS Discontinued Amiodarone [Cordarone] 200 mg PO DAILY tab Losartan [Cozaar] 25 mg PO DAILY tab Furosemide [Lasix] 40 mg PO DAILY tab Metoprolol Tartrate 25 mg PO BID #60 tab Diltiazem Cd [Cardizem CD] 120 mg PO DAILY Insulin Detemir (Levemir) [Levemir] 20 unit SQ HS Discharge Medication List Cholecalciferol [Vitamin D3 (25 Mcg = 1000 Iu)] 1,000 unit PO DAILY #0 11/01/19 [History] Multivitamins, Thera [Multivitamin (formulary)] 1 tab PO DAILY 11/01/19 [History] Aspirin 81 mg PO DAILY #30 chew 11/04/19 [Rx] Ascorbic Acid [Vitamin C] 500 mg PO DAILY 11/05/19 [History] Acetaminophen Tab [Tylenol] 1,000 mg PO Q6HR PRN tab 12/03/19 [Rx] Clopidogrel [Plavix] 75 mg PO DAILY tab 12/03/19 [Rx] Heparin Sodium,Porcine [Heparin Sodium] 5,000 unit SQ Q8HR vial 12/03/19 [Rx] Ipratropium-Albuterol Nebulize [Duoneb 0.5 mg-3 mg/3 ml Soln] 3 ml INHALATION RT-Q2H PRN ml 12/03/19 [Rx] Ipratropium-Albuterol Nebulize [Duoneb 0.5 mg-3 mg/3 ml Soln] 3 ml INHALATION RT-QID ml 12/03/19 [Rx] Linagliptin [Tradjenta] 5 mg PO DAILY tablet 12/03/19 [Rx] SILVER sulfADIAZINE CREAM [Silvadene Cream] 1 applic TOPICAL BID applic 12/03/19 [Rx] Atomoxetine HCl [Strattera] 40 mg PO HS 12/11/19 [History] INSULIN ASPART (NovoLOG) [NovoLOG (formulary)] 2 unit SQ ACHS 12/11/19 [History] Lactobacillus Acidoph & Bulgar [Lactinex] 1 tab PO TID-W/MEALS 12/11/19 [History] Pantoprazole [Protonix] 40 mg PO DAILY 12/11/19 [History] QUEtiapine [SEROquel] 12.5 mg PO HS 12/11/19 [History] Atorvastatin [Lipitor] 20 mg PO DAILY tab 12/16/19 [Rx] Folic Acid 1 mg PO DAILY@1200 tab 12/16/19 [Rx] Insulin Detemir (Levemir) [Levemir] 5 unit SQ HS syr 12/16/19 [Rx] Metoprolol Tartrate [Lopressor] 12.5 mg PO BID tab 12/16/19 [Rx] Thiamine [Vitamin B-1] 100 mg PO DAILY@1200 tab 12/16/19 [Rx] Follow up Appointment(s)/Referral(s): Radha Alvarez MD [STAFF PHYSICIAN] - 1 Week (office will tova you and arrange for appointment and outpatient stress test) Herson Boswell DO [Primary Care Provider] - 1-2 days Sunday Hewitt MD [STAFF PHYSICIAN] - 12/23/19 9:45 am Activity/Diet/Wound Care/Special Instructions: Patient is going to [facility] Activity as tolerated Continue current heart healthy consistent carb diet Continue to monitor blood sugars before meals and at bedtime and treat accordingly with sliding scale Follow-up with primary care provider upon discharge Continue with compression hose to bilateral lower extremities up to the knees Discharge Disposition: TRANSFER TO SNF/ECF
--- NOTE | 2019-12-17 13:05 | CDI ---
Documentation Clarification Form Date: 12/17/19 From: Isabel Preston Phone: If you have a question about this query, please contact Libby Torrez, Cocktail Waitress at [phone] between 8am and 5pm. Admit Date: 12/11/19 Discharge Date:12/16/19 Patient Name: Dillan Reis Visit Number: [id number] ATTENTION: The Clinical Documentation Specialists (CDI) and [facility] Coding Staff appreciate your assistance in clarifying documentation. Please respond to the clarification below the line at the bottom and electronically sign. The CDI & [facility] Coding staff will review the response and follow-up if needed. Please note: Queries are made part of the Legal Health Record. If you have any questions, please contact the author of this message via ITS. Dear Dr. Ro Conflicting documentation has been found in the medical record: Dr. Bonnie ARAUJO 12/13 - 12/14 - "we felt that this change in mental status was related to the amiodarone which was stopped". You documented in the discharge summary and 12/14 progress note - "change in mental status, possible acute on chronic metabolic encephalopathy with delirium. Small bilateral basal ganglia lacunar infarct with chronic small vessel ischemia on the CT as well as possible left parietal lobe white matter subacute infarct. Neurology Consult note - "altered mental status, likely related to metabolic encephalopathy. Patient was noted to be quite disoriented on examination. Uncertain if related to encephalopathy or if patient has developed some cognitive impairment/dementia related to recent CVAs. History/Risk Factors: Metabolic encephalopathy, CAD, recent AK, hypertension, ATN. Clinical Indicators: Change in mental status Labs: Sodium 133, BUN 33, Creatinine 2.24 CT Brain: Some improvement in the hypodensity seen within the left peratrial white matter on 11/17/19. Evolution to now chronic appearance of previous subacute infarcts not excluded. Old bilateral basal ganglionic lacunar infarcts and mild patchy burden of chronic small vessel ischemic disease. No acute intracranial abnormality seen. If concern for subtle acute ischemia, follow-up MRI Treatment: DC'd amiodarone, dual antiplatelet medications In your opinion, what is the most etiology for the change in mental status? Related to amiodarone Left parietal lobe white matter subacute infarct Other explanation of clinical findings Unable to determine (no explanation for clinical findings) Left parietal lobe white matter subacute infarct MTDD
--- NOTE | 2019-12-17 13:17 | CDI ---
Documentation Clarification Form Date: 12/17/19 From: Isabel Preston Phone: If you have a question about this query, please contact Libby Torrez, Sales Consultant at [phone] between 8am and 5pm. Admit Date: 12/13/19 Discharge Date:12/16/19 Patient Name: Dillan Reis Visit Number: [id number] ATTENTION: The Clinical Documentation Specialists (CDI) and [facility] Coding Staff appreciate your assistance in clarifying documentation. Please respond to the clarification below the line at the bottom and electronically sign. The CDI & [facility] Coding staff will review the response and follow-up if needed. Please note: Queries are made part of the Legal Health Record. If you have any questions, please contact the author of this message via ITS. Dear Dr. Ro Hypotension is documented in the cardiology consult note, nephrology 12/12 & 12/13 progress notes, Dr. Hewitt's 12/[address] Nicole documented orthostatic hypotension in the 12/14 progress note. You documented severe hypotension last night in your 12/14 progress note. History/Risk Factors: Hypertension, ATN, CAD, Dehydration, atrial fibrillation Clinical Indicators: Low BP Patients B/P: 12/10 @ 20:00 - 99/48, 20:45 103/63, 21:06 103/63, 12/12/19 @ 09:00 95/65, 09:19 105/65, 12/14/09 @ 09:50 50/43, 09:55 93/47 Labs: BUN 33, Creatinine 2.24 Treatment: Blood pressure medications held In your professional opinion, can you please specify the etiology of the hypotension if known? Iatrogenic Hypotension Orthostatic Hypotension Postural Hypotension Idiopathic Hypotension Drug Induced Hypotension Other Condition, please specify Unable to determine Orthostatic Hypotension MTDD
== END 2019-12-16 14:05 | DRG 64 ==
LOC: EC 18:23 → 3NCARDOBS 20:07 → OBSVTOIN 12-13 10:38 → 4SSUR 12-13 20:08
PROVIDERS: ADMIT Hospitalist; ATTEND Hospitalist
DX: I63.81 Other cerebral infarction due to occlusion or stenosis of small artery (principal); G93.41 Metabolic encephalopathy; N17.0 Acute kidney failure with tubular necrosis; E11.51 Type 2 diabetes mellitus with diabetic peripheral angiopathy without gangrene; E86.0 Dehydration; R07.89 Other chest pain; F40.240 Claustrophobia; E78.5 Hyperlipidemia, unspecified; I10 Essential (primary) hypertension; I25.10 Atherosclerotic heart disease of native coronary artery without angina pectoris; I25.2 Old myocardial infarction; I48.91 Unspecified atrial fibrillation; I65.23 Occlusion and stenosis of bilateral carotid arteries; I95.1 Orthostatic hypotension; J44.9 Chronic obstructive pulmonary disease, unspecified; K42.9 Umbilical hernia without obstruction or gangrene; L30.9 Dermatitis, unspecified; L40.9 Psoriasis, unspecified; R00.1 Bradycardia, unspecified; R26.9 Unspecified abnormalities of gait and mobility; K44.9 Diaphragmatic hernia without obstruction or gangrene; R41.0 Disorientation, unspecified; H91.90 Unspecified hearing loss, unspecified ear; Z79.02 Long term (current) use of antithrombotics/antiplatelets; Z79.4 Long term (current) use of insulin; Z79.82 Long term (current) use of aspirin; Z79.899 Other long term (current) drug therapy; Z86.73 Personal history of transient ischemic attack (TIA), and cerebral infarction without residual deficits; Z85.51 Personal history of malignant neoplasm of bladder; Z87.442 Personal history of urinary calculi; Z91.14 Patient's other noncompliance with medication regimen; Z92.21 Personal history of antineoplastic chemotherapy; Z92.3 Personal history of irradiation; Z95.0 Presence of cardiac pacemaker; Z95.1 Presence of aortocoronary bypass graft; Z95.5 Presence of coronary angioplasty implant and graft; Z91.048 Other nonmedicinal substance allergy status; Z95.828 Presence of other vascular implants and grafts; Z98.890 Other specified postprocedural states; Z82.49 Family history of ischemic heart disease and other diseases of the circulatory system; Z83.3 Family history of diabetes mellitus; Z84.89 Family history of other specified conditions
CPT/HCPCS: 36415; 70450; 71045; 71046; 78582; 80048; 80053; 80061; 81003; 82533; 82550; 82553; 83735; 83880; 84300; 84443; 84484; 84540; 85025; 85379; 85610; 85730; 93005; 93308; 93880; 94640; 99285

== ENCOUNTER → 2020-01-17 | Outpatient (CLI) | payer BC ==
[2020-01-17 18:09] LABS: ALT 38 U/L (10-49); AST 28 U/L (14-35); Alkaline Phosphatase 92 U/L (41-126); Bilirubin, Conjugated <0.20 mg/dL (0.20-0.40); Chol/HDL Ratio 3.66; Cholesterol 139 mg/dL (0-200); Globulin 2.1 g/dL (1.6-3.3); LDL Cholesterol,Calculated 60.2 mg/dL (0.0-131.0); Total Bilirubin 0.4 mg/dL (0.2-1.2); Total Protein 6.3 g/dL (6.2-8.2)
== END | disposition home or self-care (01) ==
LOC: LABWHC1 09:47
PROVIDERS: ATTEND Internal Medicine Cardiovascular Disease
DX: I25.10 Atherosclerotic heart disease of native coronary artery without angina pectoris (principal); E78.5 Hyperlipidemia, unspecified
CPT/HCPCS: 36415; 80061; 80076

== ENCOUNTER 2020-02-14 16:36 | Emergency (ER) | payer BC ==
[2020-02-14 16:45] VITALS: TEMP 98.6
[2020-02-14] MEDS ORDERED: SODIUM CHLORIDE 0.9% 1,000 ML IV STA ×2 (16:56→18:26)
--- NOTE | 2020-02-14 16:56 | ED ---
Dizziness HPI - General Chief Complaint: Dizziness Stated Complaint: Near Syncope Time Seen by Provider: 02/14/20 16:56 Source: patient, RN notes reviewed, old records reviewed Mode of arrival: wheelchair Limitations: no limitations - History of Present Illness Initial Comments: This is a 64-year-old male spell presents today for evaluation regards to d izziness and near syncopal event patient is a cardiac bypass patient, feels weak causes first day back at work so significant work activity doesn't normal day-to-day basis. But again has no headache chest pain shortness breath abdominal pain currently. Patient states he feels back to baseline currently. He did feel like he may have not eating or drinking as much as normal, no recent change in medications MD Complaint: dizziness, lightheadedness, near syncope -: hour(s) Timing: sudden onset Description: lightheadedness, near-syncope History of Same: No History of Trauma: No Severity: moderate Improves With: rehydration Worsens With: movement Associated Symptoms: denies other symptoms - Related Data Home Medications Medication Instructions Recorded Confirmed Cholecalciferol [Vitamin D3 (25 1,000 unit PO DAILY #0 11/01/19 12/11/19 Mcg = 1000 Iu)] Multivitamins, Thera [Multivitamin 1 tab PO DAILY 11/01/19 12/11/19 (formulary)] Ascorbic Acid [Vitamin C] 500 mg PO DAILY 11/05/19 12/11/19 Atomoxetine HCl [Strattera] 40 mg PO HS 12/11/19 12/11/19 INSULIN ASPART (NovoLOG) [NovoLOG 2 unit SQ ACHS 12/11/19 12/11/19 (formulary)] Lactobacillus Acidoph & Bulgar 1 tab PO TID-W/MEALS 12/11/19 12/11/19 [Lactinex] Pantoprazole [Protonix] 40 mg PO DAILY 12/11/19 12/11/19 QUEtiapine [SEROquel] 12.5 mg PO HS 12/11/19 12/11/19 Previous Rx's Medication Instructions Recorded Aspirin 81 mg PO DAILY #30 chew 11/04/19 Acetaminophen Tab [Tylenol] 1,000 mg PO Q6HR PRN tab 12/03/19 Clopidogrel [Plavix] 75 mg PO DAILY tab 12/03/19 Heparin Sodium,Porcine [Heparin 5,000 unit SQ Q8HR vial 12/03/19 Sodium] Ipratropium-Albuterol Nebulize 3 ml INHALATION RT-Q2H PRN ml 12/03/19 [Duoneb 0.5 mg-3 mg/3 ml Soln] Ipratropium-Albuterol Nebulize 3 ml INHALATION RT-QID ml 12/03/19 [Duoneb 0.5 mg-3 mg/3 ml Soln] Linagliptin [Tradjenta] 5 mg PO DAILY tablet 12/03/19 SILVER sulfADIAZINE CREAM 1 applic TOPICAL BID applic 12/03/19 [Silvadene Cream] Atorvastatin [Lipitor] 20 mg PO DAILY tab 12/16/19 Folic Acid 1 mg PO DAILY@1200 tab 12/16/19 Insulin Detemir (Levemir) [Levemir] 5 unit SQ HS syr 12/16/19 Metoprolol Tartrate [Lopressor] 12.5 mg PO BID tab 12/16/19 Thiamine [Vitamin B-1] 100 mg PO DAILY@1200 tab 12/16/19 Allergies Allergy/AdvReac Type Severity Reaction Status Date / Time ragweed pollen Allergy Unknown Verified 02/14/20 16:45 Review of Systems ROS Statement: Those systems with pertinent positive or pertinent negative responses have been documented in the HPI. ROS Other: All systems not noted in ROS Statement are negative. Past Medical History Past Medical History: Coronary Artery Disease (CAD), Cancer, Chest Pain / Angina, Diabetes Mellitus, Hypertension, Myocardial Infarction (ND), Skin Disorder Additional Past Medical History / Comment(s): Intermittent BILATERAL CLAUDICATION & NEW OCCURRENCE OF LEFT PLANTAR FASCITIS (DIFFICULT TO WALK). Hx of bladder ca with surgery, psoriases,eczema, hiatal hernia, umbilical hernia, kidney stones 2004. Last Myocardial Infarction Date:: 2015 History of Any Multi-Drug Resistant Organisms: None Reported Past Surgical History: Coronary Bypass/CABG, Heart Catheterization With Stent Additional Past Surgical History / Comment(s): vasectomy, bladder sx x2 to remove tumors. L femoral artherectomy/STENT TO LT common ILIAC artery, 05/22/16 R femoral/popliteal atherectomy with PTBA/stent, angiograms, aortogram with run off. Past Anesthesia/Blood Transfusion Reactions: No Reported Reaction Additional Past Anesthesia/Blood Transfusion Reaction / Comment(s): CLAUSTROPHOBIC IN LARGE CROWDS Date of Last Stent Placement:: 10/20/15 Past Psychological History: No Psychological Hx Reported Smoking Status: Current every day smoker Past Alcohol Use History: None Reported Past Drug Use History: Marijuana - Past Family History Father Family Medical History: Myocardial Infarction (ND) Additional Family Medical History / Comment(s): PT'S DAD WHEN PT WAS AGE 4 he believes from a myocardial infarction. Mother Family Medical History: Diabetes Mellitus, Hyperlipidemia, Hypertension, Vascular Disorder General Exam Limitations: no limitations General appearance: alert, in no apparent distress, anxious, cachectic Head exam: Present: atraumatic, normocephalic, normal inspection Eye exam: Present: normal appearance, PERRL, EOMI. Absent: scleral icterus, conjunctival injection, periorbital swelling ENT exam: Present: normal exam, mucous membranes moist Neck exam: Present: normal inspection. Absent: tenderness, meningismus, l ymphadenopathy Respiratory exam: Present: normal lung sounds bilaterally. Absent: respiratory distress, wheezes, rales, rhonchi, stridor Cardiovascular Exam: Present: regular rate, normal rhythm, normal heart sounds. Absent: systolic murmur, diastolic murmur, rubs, gallop, clicks GI/Abdominal exam: Present: soft, normal bowel sounds. Absent: distended, tenderness, guarding, rebound, rigid Extremities exam: Present: normal inspection, full ROM, normal capillary refill. Absent: tenderness, pedal edema, joint swelling, calf tenderness Back exam: Present: normal inspection Neurological exam: Present: alert, oriented X3, CN II-XII intact Psychiatric exam: Present: normal affect, normal mood Skin exam: Present: warm, dry, intact, normal color. Absent: rash Course Vital Signs 02/14/20 02/14/20 02/14/20 16:39 17:06 17:30 Temperature 98.6 F Pulse Rate 85 80 76 Respiratory 18 18 16 Rate Blood Pressure 131/92 131/92 135/87 O2 Sat by Pulse 98 100 98 Oximetry 02/14/20 02/14/20 18:00 18:43 Temperature Pulse Rate 85 87 Respiratory 20 16 Rate Blood Pressure 135/85 161/99 O2 Sat by Pulse 99 99 Oximetry - Reevaluation(s) Reevaluation #1: 02/14/20 17:38 Medical record is reviewed Reevaluation #2: 02/14/20 19:18 Patient without complaint here in the ER feeling better with hydration Reevaluation #3: 02/14/20 19:18 Spoke with patient and family regarding findings, questions answered patient prefers discharge despite near syncopal event and heart surgery EKG Findings - EKG Comments: EKG Findings:: EKG is sinus rhythm 83 NV 142 QRS 80 QTc 458 Medical Decision Making - Medical Decision Making 64 male DF with a near syncopal and weakness likely dehydration related but he does have recent heart surgery worry about arrhythmia, patient does not want to stay in hospital for evaluation will be discharged home - Lab Data Result diagrams: 02/14/20 17:14 02/14/20 17:14 Lab Results 02/14/20 02/14/20 02/14/20 Range/Units 17:14 17:14 17:14 WBC 12.6 H (3.8-10.6) k/uL RBC 4.41 (4.30-5.90) m/uL Hgb 13.6 (13.0-17.5) gm/dL Hct 43.0 (39.0-53.0) % MCV 97.5 (80.0-100.0) fL MCH 30.8 (25.0-35.0) pg MCHC 31.6 (31.0-37.0) g/dL RDW 14.0 (11.5-15.5) % Plt Count 270 (150-450) k/uL Neutrophils % 76 % Lymphocytes % 13 % Monocytes % 7 % Eosinophils % 1 % Basophils % 1 % Neutrophils # 9.6 H (1.3-7.7) k/uL Lymphocytes # 1.6 (1.0-4.8) k/uL Monocytes # 0.8 (0-1.0) k/uL Eosinophils # 0.1 (0-0.7) k/uL Basophils # 0.1 (0-0.2) k/uL PT 9.4 (9.0-12.0) sec INR 0.9 (<1.2) APTT 22.3 (22.0-30.0) sec D-Dimer 1.69 H (<0.60) mg/L FEU Sodium 134 L (137-145) mmol/L Potassium 4.8 (3.5-5.1) mmol/L Chloride 103 (98-107) mmol/L Carbon Dioxide 20 L (22-30) mmol/L Anion Gap 11 mmol/L BUN 19 (9-20) mg/dL Creatinine 1.00 (0.66-1.25) mg/dL Est GFR (CKD-EPI)AfAm >90 (>60 ml/min/1.73 sqM) Est GFR (CKD-EPI)NonAf 79 (>60 ml/min/1.73 sqM) Glucose 309 H (74-99) mg/dL Plasma Lactic Acid Scott (0.7-2.0) mmol/L Calcium 9.7 (8.4-10.2) mg/dL Phosphorus 4.7 H (2.5-4.5) mg/dL Magnesium 1.8 (1.6-2.3) mg/dL Total Bilirubin 0.4 (0.2-1.3) mg/dL AST 25 (17-59) U/L ALT 23 (4-49) U/L Alkaline Phosphatase 89 (38-126) U/L Troponin I (0.000-0.034) ng/mL NT-Pro-B Natriuret Pep pg/mL Total Protein 6.9 (6.3-8.2) g/dL Albumin 4.1 (3.5-5.0) g/dL 02/14/20 02/14/20 02/14/20 Range/Units 17:14 17:14 17:14 WBC (3.8-10.6) k/uL RBC (4.30-5.90) m/uL Hgb (13.0-17.5) gm/dL Hct (39.0-53.0) % MCV (80.0-100.0) fL MCH (25.0-35.0) pg MCHC (31.0-37.0) g/dL RDW (11.5-15.5) % Plt Count (150-450) k/uL Neutrophils % % Lymphocytes % % Monocytes % % Eosinophils % % Basophils % % Neutrophils # (1.3-7.7) k/uL Lymphocytes # (1.0-4.8) k/uL Monocytes # (0-1.0) k/uL Eosinophils # (0-0.7) k/uL Basophils # (0-0.2) k/uL PT (9.0-12.0) sec INR (<1.2) APTT (22.0-30.0) sec D-Dimer (<0.60) mg/L FEU Sodium (137-145) mmol/L Potassium (3.5-5.1) mmol/L Chloride (98-107) mmol/L Carbon Dioxide (22-30) mmol/L Anion Gap mmol/L BUN (9-20) mg/dL Creatinine (0.66-1.25) mg/dL Est GFR (CKD-EPI)AfAm (>60 ml/min/1.73 sqM) Est GFR (CKD-EPI)NonAf (>60 ml/min/1.73 sqM) Glucose (74-99) mg/dL Plasma Lactic Acid Scott 2.9 H* (0.7-2.0) mmol/L Calcium (8.4-10.2) mg/dL Phosphorus (2.5-4.5) mg/dL Magnesium (1.6-2.3) mg/dL Total Bilirubin (0.2-1.3) mg/dL AST (17-59) U/L ALT (4-49) U/L Alkaline Phosphatase (38-126) U/L Troponin I <0.012 (0.000-0.034) ng/mL NT-Pro-B Natriuret Pep 415 pg/mL Total Protein (6.3-8.2) g/dL Albumin (3.5-5.0) g/dL - Radiology Data Radiology results: report reviewed (CT chest negative for acute disease), image reviewed Disposition Clinical Impression: Near syncope, Dehydration, Weakness, Dizziness Disposition: HOME SELF-CARE Condition: Undetermined Instructions (If sedation given, give patient instructions): Weakness (ED), Dehydration (ED), Dizziness (ED) Is patient prescribed a controlled substance at d/c from ED?: No Referrals: Helga Keen MD [Primary Care Provider] - 1-2 days
[2020-02-14 17:25] LABS: Basophils # (A) 0.1 k/uL (0-0.2); Basophils % (A) 1 %; Eosinophils # (A) 0.1 k/uL (0-0.7); Eosinophils % (A) 1 %; HGB 13.6 gm/dL (13.0-17.5); Lymphocytes # (A) 1.6 k/uL (1.0-4.8); Lymphocytes % (A) 13 %; MCH 30.8 pg (25.0-35.0); MCHC 31.6 g/dL (31.0-37.0); MCV 97.5 fL (80.0-100.0); Monocytes # (A) 0.8 k/uL (0-1.0); Monocytes % (A) 7 %; Neutrophils # (A) 9.6 k/uL (1.3-7.7); Neutrophils % (A) 76 %; Platelet Count 270 k/uL (150-450); RBC 4.41 m/uL (4.30-5.90); WBC 12.6 k/uL (3.8-10.6)
[2020-02-14 17:36] LABS: ALT 23 U/L (4-49); AST 25 U/L (17-59); African American GFR (CKD) >90 (>60 ml/min/1.73 sqM); Albumin 4.1 g/dL (3.5-5.0); Alkaline Phosphatase 89 U/L (38-126); Anion Gap 11 mmol/L; Blood Urea Nitrogen 19 mg/dL (9-20); Calcium 9.7 mg/dL (8.4-10.2); Carbon Dioxide 20 mmol/L (22-30); Chloride 103 mmol/L (98-107); Glucose 309 mg/dL (74-99); Magnesium 1.8 mg/dL (1.6-2.3); Non-African American GFR(CKD) 79 (>60 ml/min/1.73 sqM); Phosphorus 4.7 mg/dL (2.5-4.5); Potassium 4.8 mmol/L (3.5-5.1); Sodium 134 mmol/L (137-145); Total Bilirubin 0.4 mg/dL (0.2-1.3); Total Protein 6.9 g/dL (6.3-8.2)
[2020-02-14 17:42] LABS: INR 0.9 (<1.2); Partial Thromboplastin Time 22.3 sec (22.0-30.0); Prothrombin Time 9.4 sec (9.0-12.0)
[2020-02-14 18:23] LABS: D-Dimer 1.69 mg/L FEU (<0.60)
[2020-02-14 18:44] VITALS: BP 161/99; PULSE 87; RESP 16
--- NOTE | 2020-02-14 19:15 | CT ---
EXAMINATION TYPE: CT angio chest DATE OF EXAM: 02/14/2020 6:57 PM COMPARISON: 11/20/2019. HISTORY: SOB CT DLP: 314.1 mGycm Automated exposure control for dose reduction was used. CONTRAST: CTA scan of the thorax is performed with IV Contrast, patient injected with 100 mL of Isovue 370, pul monary embolism protocol. MIP images are created and reviewed. FINDINGS: LUNGS: The lungs are grossly clear, there is no concerning parenchymal mass or nodule identified. Th ere is background of moderate emphysema. There is no pleural effusion or pneumothorax seen. The trac heobronchial tree is patent. MEDIASTINUM: There is satisfactory enhancement of the pulmonary artery and its branches, there is no CT evidence for pulmonary embolism. There are no greater than 1 cm hilar or mediastinal lymph nodes. No pericardial effusion is seen. OTHER: No additional significant abnormality is seen. IMPRESSION: NO ACUTE PULMONARY EMBOLUS OR OTHER CARDIOPULMONARY ABNORMALITY. Emphysema.
== END 2020-02-14 19:45 | disposition home or self-care (01) ==
LOC: EC 16:36
DX: E86.0 Dehydration (principal); R55 Syncope and collapse; R53.1 Weakness; R42 Dizziness and giddiness; I25.119 Atherosclerotic heart disease of native coronary artery with unspecified angina pectoris; E11.9 Type 2 diabetes mellitus without complications; I10 Essential (primary) hypertension; I25.2 Old myocardial infarction; F17.200 Nicotine dependence, unspecified, uncomplicated; Z91.018 Allergy to other foods; Z79.4 Long term (current) use of insulin; Z79.899 Other long term (current) drug therapy; Z95.1 Presence of aortocoronary bypass graft; Z95.5 Presence of coronary angioplasty implant and graft
CPT/HCPCS: 36415; 93005; 85379; 83880; 80053; 83605; 83735; 84100; 84484; 85025; 85610; 85730; 71275; 99285; 96360; 96361 ×2; Q9967

== ENCOUNTER 2024-05-13 09:46 | Emergency (ER) | payer MEDICARE ==
[2024-05-13 09:53] VITALS: RESP 18
--- NOTE | 2024-05-13 10:25 | ED ---
General Adult HPI - General Chief complaint: Urogenital Stated complaint: POSS UTI Time Seen by Provider: 05/13/24 09:52 Source: family, EMS, RN notes reviewed Mode of arrival: EMS Limitations: language barrier, altered mental status - History of Present Illness Initial comments: This is a 69-year-old male with a history of CVA and neurological deficits, CAD with coronary bypass, and bladder cancer presenting to the emergency department via EMS for concern of possible urinary tract infection. History is provided by patient's at bedside due to patient having a language barrier due to history of CVA. at bedside states that patient has been having difficulties controlling his bladder over the past few days and she has noticed an odor to his urine discoloration. Additionally, states when she was cleaning up the patient this morning she noticed that there was blood from his urethra and was concern for hematuria. states the patient had an episode of emesis over the weekend however throughout the week he has been eating and drinking appropriately. Denies current blood thinner use. - Related Data Home Medications Medication Instructions Recorded Confirmed Turmeric Root Extract [Turmeric] 500 mg PO DAILY 02/14/20 05/13/24 Aspirin EC [Ecotrin Low Dose] 81 mg PO DAILY 05/13/24 05/13/24 Beet Root Supplement 1 cap PO DAILY 05/13/24 05/13/24 Allergies Allergy/AdvReac Type Severity Reaction Status Date / Time ragweed pollen Allergy Dyspnea Verified 05/13/24 11:05 Review of Systems ROS Statement: Those systems with pertinent positive or pertinent negative responses have been documented in the HPI. ROS Other: All systems not noted in ROS Statement are negative. Past Medical History Past Medical History: Coronary Artery Disease (CAD), Cancer, Chest Pain / Angina, Diabetes Mellitus, Hypertension, Myocardial Infarction (ME), Skin Disorder Additional Past Medical History / Comment(s): Intermittent BILATERAL CLAUDICATION & NEW OCCURRENCE OF LEFT PLANTAR FASCITIS (DIFFICULT TO WALK). Hx of bladder ca with surgery, psoriases,eczema, hiatal hernia, umbilical hernia, kidney stones 2004. Last Myocardial Infarction Date:: 2015 History of Any Multi-Drug Resistant Organisms: None Reported Past Surgical History: Coronary Bypass/CABG, Heart Catheterization With Stent Additional Past Surgical History / Comment(s): vasectomy, bladder sx x2 to remove tumors. L femoral artherectomy/STENT TO LT common ILIAC artery, 05/22/16 R femoral/popliteal atherectomy with PTBA/stent, angiograms, aortogram with run off. Past Anesthesia/Blood Transfusion Reactions: No Reported Reaction Additional Past Anesthesia/Blood Transfusion Reaction / Comment(s): CLAUSTROPHOBIC IN LARGE CROWDS Date of Last Stent Placement:: 10/20/15 Past Psychological History: No Psychological Hx Reported Smoking Status: Current every day smoker Past Alcohol Use History: None Reported Past Drug Use History: Marijuana - Past Family History Father Family Medical History: Myocardial Infarction (ME) Additional Family Medical History / Comment(s): PT'S DAD WHEN PT WAS AGE 4 he believes from a myocardial infarction. Mother Family Medical History: Diabetes Mellitus, Hyperlipidemia, Hypertension, Vascular Disorder General Exam Limitations: language barrier, altered mental status Eye exam: Present: normal appearance, PERRL, EOMI. Absent: scleral icterus, conjunctival injection, periorbital swelling Neck exam: Present: normal inspection. Absent: tenderness, meningismus, lymphadenopathy Respiratory exam: Present: normal lung sounds bilaterally. Absent: respiratory distress, wheezes, rales, rhonchi, stridor Cardiovascular Exam: Present: regular rate, normal rhythm, normal heart sounds. Absent: systolic murmur, diastolic murmur, rubs, gallop, clicks GI/Abdominal exam: Present: soft, tenderness (suprapubic), normal bowel sounds. Absent: distended, guarding, rebound, rigid Extremities exam: Present: normal inspection, full ROM, normal capillary refill. Absent: tenderness, pedal edema, joint swelling, calf tenderness Back exam: Present: normal inspection Skin exam: Present: warm, dry, normal color. Absent: rash, cyanosis, diaphoretic Course Vital Signs 05/13/24 05/13/24 09:47 11:22 Temperature 98.0 F Pulse Rate 90 90 Respiratory 18 18 Rate Blood Pressure 166/93 186/86 O2 Sat by Pulse 100 99 Oximetry Medical Decision Making - Medical Decision Making Was pt. sent in by a medical professional or institution (, ANT, RUNSTITCHING MACHINE OPERATOR, urgent care, hospital, or usp...) When possible be specific @ -No Did you speak to anyone other than the patient for history (EMS, parent, family, police, friend...)? What history was obtained from this source @ -Spoke to the patient's at bedside for history due to patient's limited verbal indication from history of CVA. Did you review nursing and triage notes (agree or disagree)? Why? @ -I reviewed and agree with nursing and triage notes Were old charts reviewed (outside hosp., previous admission, EMS record, old EKG, old radiological studies, urgent care reports/EKG's, usp records)? Report findings @ -No old charts were reviewed Differential Diagnosis (chest pain, altered mental status, abdominal pain women, abdominal pain men, vaginal bleeding, weakness, fever, dyspnea, syncope, headache, dizziness, GI bleed, back pain, seizure, CVA, palpatations, mental health, musculoskeletal)? @ -Differential Weakness: Hypoglycemia, shock, sepsis, hyponatremia, anemia, infection, ME, ETOH, adverse medicine reaction, overdose, stroke, this is not meant to be an all-inclusive list. EKG interpreted by me (3pts min.). @ -none X-rays interpreted by me (1pt min.). @ -None done CT interpreted by me (1pt min.). @ -CT of the abdomen pelvis w/out IV contrast reveals a bilateral nonobstructing renal stones with no evidence of hydronephrosis or hydroureter and a fusiform prominence of the mid abdominal aorta of 3.4 cm U/S interpreted by me (1pt. min.). @ -None done What testing was considered but not performed or refused? (CT, X-rays, U/S, labs)? Why? @ -None What meds were considered but not given or refused? Why? @ -None Did you discuss the management of the patient with other professionals (professionals i.e. , PA, RUNSTITCHING MACHINE OPERATOR, lab, RT, psych nurse, adoption social worker, arc welding machine operator, teacher, president and chief operating officer, pillowcase maker)? Give summary @ -No Was smoking cessation discussed for >3mins.? @ -No Was critical care preformed (if so, how long)? @ -No Were there social determinants of health that impacted care today? How? (Homelessness, low income, unemployed, alcoholism, drug addiction, transportation, low edu. Level, literacy, decrease access to med. care, prison, rehab)? @ -No Was there de-escalation of care discussed even if they declined (Discuss DNR or withdrawal of care, Hospice)? DNR status @ -No What co-morbidities impacted this encounter? (DM, HTN, Smoking, COPD, CAD, Cancer, CVA, ARF, Chemo, Hep., AIDS, mental health diagnosis, sleep apnea, morbid obesity)? @ -None Was patient admitted / discharged? Hospital course, mention meds given and route, prescriptions, significant lab abnormalities, going to OR and other pertinent info. @ -Discharge. 69-year-old male presenting via EMS for possible urinary tract infection. History is obtained from patient's at bedside. Patient noted to have clinical signs of dehydration with dry mucous membranes. He will be treated with IV fluids pending laboratory results. Patient's urinalysis remarkable for red cells with no signs of infection. Patient is sent for CT evaluation of the abdomen pelvis for further evaluation of hematuria. Viral testing is negative. CBC mild leukocytosis 11.6. CMP is unremarkable. CT bilateral nonobstructing renal stones with no evidence of hydronephrosis or hydroureter. Patient stable for discharge with close follow-up outpatient with urology. Patient is provided with urology provider for follow-up. All questions have been answered at bedside and strict return parameters and discussed with the patient and family and they have verbalized understanding. Case discussed with Dr. Briggs Undiagnosed new problem with uncertain prognosis? @ -No Drug Therapy requiring intensive monitoring for toxicity (Heparin, Nitro, Insulin, Cardizem)? @ -No Were any procedures done? @ -No Diagnosis/symptom? @ -hematuria Acute, or Chronic, or Acute on Chronic? @ -acute Uncomplicated (without systemic symptoms) or Complicated (systemic symptoms)? @ -uncomplicated Side effects of treatment? @ -No Exacerbation, Progression, or Severe Exacerbation? @ -No Poses a threat to life or bodily function? How? (Chest pain, USA, ME, pneumonia, PE, COPD, DKA, ARF, appy, cholecystitis, CVA, Diverticulitis, Homicidal, Suicidal, threat to staff... and all critical care pts) @ -No - Lab Data Result diagrams: 05/13/24 10:26 05/13/24 10:26 Lab Results 05/13/24 05/13/24 05/13/24 Range/Units 10:22 10:23 10:26 WBC 11.6 H (3.8-10.6) k/uL RBC 4.95 (4.30-5.90) m/uL Hgb 15.2 (13.0-17.5) gm/dL Hct 46.4 (39.0-53.0) % MCV 93.7 (80.0-100.0) fL MCH 30.7 (25.0-35.0) pg MCHC 32.7 (31.0-37.0) g/dL RDW 12.1 (11.5-15.5) % Plt Count 228 (150-450) k/uL MPV 7.5 Neutrophils % 75 % Lymphocytes % 12 % Monocytes % 6 % Eosinophils % 2 % Basophils % 1 % Neutrophils # 8.8 H (1.3-7.7) k/uL Lymphocytes # 1.4 (1.0-4.8) k/uL Monocytes # 0.7 (0-1.0) k/uL Eosinophils # 0.2 (0-0.7) k/uL Basophils # 0.1 (0-0.2) k/uL Sodium (137-145) mmol/L Potassium (3.5-5.1) mmol/L Chloride (98-107) mmol/L Carbon Dioxide (22-30) mmol/L Anion Gap mmol/L BUN (9-20) mg/dL Creatinine (0.66-1.25) mg/dL Est GFR (CKD-EPI)AfAm (>60 ml/min/1.73 sqM) Est GFR (CKD-EPI)NonAf (>60 ml/min/1.73 sqM) Glucose (74-99) mg/dL Plasma Lactic Acid Scott (0.7-2.0) mmol/L Calcium (8.4-10.2) mg/dL Magnesium (1.6-2.3) mg/dL Total Bilirubin (0.2-1.3) mg/dL AST (17-59) U/L ALT (4-49) U/L Alkaline Phosphatase (38-126) U/L Total Protein (6.3-8.2) g/dL Albumin (3.5-5.0) g/dL Urine Color Red Urine Appearance Cloudy (Clear) Urine pH 5.5 (5.0-8.0) Ur Specific [place] 1.024 (1.001-1.035) Urine Protein 2+ H (Negative) Urine Glucose (UA) 3+ H (Negative) Urine Ketones 1+ H (Negative) Urine Blood Large H (Negative) Urine Nitrite Negative (Negative) Urine Bilirubin Negative (Negative) Urine Urobilinogen <2.0 (<2.0) mg/dL Ur Leukocyte Esterase Trace H (Negative) Urine RBC >182 H (0-5) /hpf Urine WBC 8 H (0-5) /hpf Amorphous Sediment Moderate H (None) /hpf Urine Mucus Rare H (None) /hpf Influenza Type A (PCR) Not Detected (Not Detectd) Influenza Type B (PCR) Not Detected (Not Detectd) RSV (PCR) Not Detected (Not Detectd) SARS-CoV-2 (PCR) Not Detected (Not Detectd) 05/13/24 05/13/24 Range/Units 10:26 10:26 WBC (3.8-10.6) k/uL RBC (4.30-5.90) m/uL Hgb (13.0-17.5) gm/dL Hct (39.0-53.0) % MCV (80.0-100.0) fL MCH (25.0-35.0) pg MCHC (31.0-37.0) g/dL RDW (11.5-15.5) % Plt Count (150-450) k/uL MPV Neutrophils % % Lymphocytes % % Monocytes % % Eosinophils % % Basophils % % Neutrophils # (1.3-7.7) k/uL Lymphocytes # (1.0-4.8) k/uL Monocytes # (0-1.0) k/uL Eosinophils # (0-0.7) k/uL Basophils # (0-0.2) k/uL Sodium 135 L (137-145) mmol/L Potassium 3.9 (3.5-5.1) mmol/L Chloride 102 (98-107) mmol/L Carbon Dioxide 20 L (22-30) mmol/L Anion Gap 13 mmol/L BUN 27 H (9-20) mg/dL Creatinine 0.83 (0.66-1.25) mg/dL Est GFR (CKD-EPI)AfAm >90 (>60 ml/min/1.73 sqM) Est GFR (CKD-EPI)NonAf 89 (>60 ml/min/1.73 sqM) Glucose 289 H (74-99) mg/dL Plasma Lactic Acid Scott 1.7 (0.7-2.0) mmol/L Calcium 9.5 (8.4-10.2) mg/dL Magnesium 1.7 (1.6-2.3) mg/dL Total Bilirubin 0.8 (0.2-1.3) mg/dL AST 28 (17-59) U/L ALT 20 (4-49) U/L Alkaline Phosphatase 98 (38-126) U/L Total Protein 6.9 (6.3-8.2) g/dL Albumin 4.0 (3.5-5.0) g/dL Urine Color Urine Appearance (Clear) Urine pH (5.0-8.0) Ur Specific [place] (1.001-1.035) Urine Protein (Negative) Urine Glucose (UA) (Negative) Urine Ketones (Negative) Urine Blood (Negative) Urine Nitrite (Negative) Urine Bilirubin (Negative) Urine Urobilinogen (<2.0) mg/dL Ur Leukocyte Esterase (Negative) Urine RBC (0-5) /hpf Urine WBC (0-5) /hpf Amorphous Sediment (None) /hpf Urine Mucus (None) /hpf Influenza Type A (PCR) (Not Detectd) Influenza Type B (PCR) (Not Detectd) RSV (PCR) (Not Detectd) SARS-CoV-2 (PCR) (Not Detectd) Disposition Clinical Impression: Hematuria Disposition: HOME SELF-CARE Condition: Stable Instructions (If sedation given, give patient instructions): Hematuria (ED) Additional Instructions: Please return to the Emergency Department if symptoms worsen or any other concerns. Recommend that you follow-up with provided urology referral for further evaluation of hematuria. Is patient prescribed a controlled substance at d/c from ED?: No Referrals: None,Stated [Primary Care Provider] - 1-2 days Elian Shin MD [STAFF PHYSICIAN] - 1-2 days Time of Disposition: 12:09
[2024-05-13 10:41] LABS: Basophils # (A) 0.1 k/uL (0-0.2); Basophils % (A) 1 %; Eosinophils # (A) 0.2 k/uL (0-0.7); Eosinophils % (A) 2 %; HCT 46.4 % (39.0-53.0); HGB 15.2 gm/dL (13.0-17.5); Lymphocytes # (A) 1.4 k/uL (1.0-4.8); Lymphocytes % (A) 12 %; MCH 30.7 pg (25.0-35.0); MCHC 32.7 g/dL (31.0-37.0); MCV 93.7 fL (80.0-100.0); Mean Platelet Volume 7.5; Monocytes # (A) 0.7 k/uL (0-1.0); Monocytes % (A) 6 %; Neutrophils # (A) 8.8 k/uL (1.3-7.7); Neutrophils % (A) 75 %; Platelet Count 228 k/uL (150-450); RBC 4.95 m/uL (4.30-5.90); RDW 12.1 % (11.5-15.5); WBC 11.6 k/uL (3.8-10.6)
[2024-05-13 10:46] LABS: Amorphous Sediment,Urine Moderate /hpf; Appearance,Urine Cloudy (Clear); Bilirubin,Urine Negative (Negative); Blood,Urine Large (Negative); Color,Urine Red; Glucose,Urine (UA) 3+ (Negative); Ketones,Urine 1+ (Negative); Leukocyte Esterase,Urine Trace (Negative); Mucus,Urine Rare /hpf; Nitrite,Urine Negative (Negative); PH, Urine 5.5 (5.0-8.0); Protein,Urine 2+ (Negative); RBC,Urine >182 /hpf (0-5); Specific Gravity,Urine 1.024 (1.001-1.035); Urobilinogen,Urine <2.0 mg/dL (<2.0); WBC,Urine 8 /hpf (0-5)
[2024-05-13 11:01] LABS: ALT 20 U/L (4-49); AST 28 U/L (17-59); African American GFR (CKD) >90 (>60 ml/min/1.73 sqM); Alkaline Phosphatase 98 U/L (38-126); Anion Gap 13 mmol/L; Blood Urea Nitrogen 27 mg/dL (9-20); Calcium 9.5 mg/dL (8.4-10.2); Carbon Dioxide 20 mmol/L (22-30); Chloride 102 mmol/L (98-107); Glucose 289 mg/dL (74-99); Magnesium 1.7 mg/dL (1.6-2.3); Non-African American GFR(CKD) 89 (>60 ml/min/1.73 sqM); Potassium 3.9 mmol/L (3.5-5.1); Sodium 135 mmol/L (137-145); Total Bilirubin 0.8 mg/dL (0.2-1.3); Total Protein 6.9 g/dL (6.3-8.2)
[2024-05-13] MEDS: SODIUM CHLORIDE 0.9% 1,000 ML IV STA (11:21)
[2024-05-13 11:35] LABS: Influenza A Not Detected (Not Detectd); Influenza B Not Detected (Not Detectd); RSV Not Detected (Not Detectd)
--- NOTE | 2024-05-13 11:41 | CT ---
EXAMINATION TYPE: CT abdomen pelvis wo con DATE OF EXAM: 05/13/2024 11:14 AM COMPARISON: 06/06/2017 CLINICAL INDICATION: Male, 69 years old with history of hematuria, HEMATURIA TECHNIQUE: Axial images were obtained from above the diaphragm to the pubic rami in the axial plane a t 5 mm thick sections. Reconstructed images are reviewed on the computer in the coronal plane. CONTRAST: mL of . Study performed without Oral Contrast DLP: 917.5 mGycm, Automated exposure control for dose reduction was used. FINDINGS: Limited CT sections are obtained the lung bases. The lung bases are clear. CT ABDOMEN: Liver: Normal Spleen: Normal Pancreas: Slightly atrophic Adrenal glands: The adrenal glands are normal. Gallbladder: Normal Kidneys: No masses are evident. No hydronephrosis is present. No cysts are present. Bilateral heather l cysts calcifications are present. No obstructing renal stones are evident. Some calcifications appe ar to be related to vascular calcifications. Aorta: Vascular calcification is within the aorta. There is fusiform prominence of the distal abdomi nal aorta measuring 3.4 cm. This terminates above the bifurcation. Inferior vena cava: Normal. CT PELVIS: Loops of bowel within the abdomen and pelvis are normal. There are loops of bowel which are incom pletely distended or lack oral contrast limiting their evaluation. Appendix: Normal as visualized. Appendicolith may be present. No adjacent inflammatory changes eviden t. Urinary bladder: Decompressed with a Junior catheter. Wall thickening is not excluded which could be r elated to nondistention Genitourinary structures: Prostate appears normal Osseous structures: No suspicious lytic or sclerotic lesions. IMPRESSION: 1. Bilateral nonobstructing renal stones. No hydronephrosis or hydroureter evident. 2. Fusiform prominence mid abdominal aorta [facility], , 05/13/2024 11:39 AM
[2024-05-13 12:53] VITALS: BP 156/78; PULSE 86; TEMP 97.8
== END 2024-05-13 12:59 | disposition home or self-care (01) ==
LOC: EC 09:46
DX: N20.0 Calculus of kidney (principal); F17.200 Nicotine dependence, unspecified, uncomplicated; Z91.048 Other nonmedicinal substance allergy status
CPT/HCPCS: 36415; 74176; 80053; 81001; 83605; 83735; 85025; 87636; 96360; 99284